=== PATIENT | male | born 1945 | race Hispanic/Latino ===

== ENCOUNTER 2017-01-15 12:27 | Inpatient (IN) | payer MEDICARE, MEDICAID ==
[2017-01-15 12:27] VITALS: BMI 18.6
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
[2017-01-15 13:10] LABS: BASO # 0.1 K/uL (0.0-0.2); BASO % 1.3 % (0.0-2.0); EOS # 0.3 K/uL (0.0-0.7); EOS % 6.1 % (0.0-4.0); HEMATOCRIT 32.3 % (35.0-51.0); LYMPH # 0.8 K/uL (1.0-4.3); LYMPH % 18.5 % (20.0-40.0); MEAN CELL VOLUME 96.4 fl (80.0-94.0); MEAN CORPUSCULAR HEMOGLOBIN 33.1 pg (27.0-31.0); MEAN CORPUSCULAR HGB CONC 34.4 g/dL (33.0-37.0); MEAN PLATELET VOLUME 7.6 fl (7.2-11.7); MONO # 0.3 K/uL (0.0-0.8); MONO % 7.1 % (0.0-10.0); NEUT # 2.9 K/uL (1.8-7.0); NRBC % 0.1 % (0.0-0.0); RED CELL DISTRIBUTION WIDTH 14.6 % (11.5-14.5); WHITE BLOOD COUNT 4.3 K/uL (4.8-10.8)
[2017-01-15 13:21] LABS: ALB/GLOB RATIO 1.2 (1.0-2.1); ALKALINE PHOSPHATASE 59 U/L (38-126); ALT/SGPT 25 U/L (21-72); AST/SGOT 18 U/L (17-59); BILIRUBIN,TOTAL 0.4 mg/dl (0.2-1.3); BLOOD UREA NITROGEN 19 mg/dl (9-20); CALCIUM 8.6 mg/dL (8.4-10.2); CARBON DIOXIDE 24 mmol/L (22-30); CHLORIDE 103 mmol/L (98-107); CHOLESTEROL 91 mg/dL (0-199); GFR AFRICAN-AMERICAN > 60; GLUCOSE,RANDOM 124 mg/dL (75-110); POTASSIUM 3.9 MMOL/L (3.6-5.0); SODIUM 134 mmol/l (132-148); TOTAL PROTEIN 6.3 G/DL (6.3-8.2)
[2017-01-15 13:54] LABS: PARTIAL THROMBOPLASTIN TIME 30.4 Seconds (25.6-37.1)
--- NOTE | 2017-01-15 13:54 | CT ---
PROCEDURE: CT HEAD WITHOUT CONTRAST. HISTORY: LUE weakness COMPARISON: comparison made with prior study dated 10/16/2016. TECHNIQUE: Axial computed tomography images were obtained through the head/brain without intravenous contrast. Radiation dose: Total exam DLP = 841.47 mGy-cm. This CT exam was performed using one or more of the following dose reduction techniques: Automated exposure control, adjustment of the mA and/or kV according to patient size, and/or use of iterative reconstruction technique. FINDINGS: HEMORRHAGE: No acute parenchymal, subarachnoid or extra-axial hemorrhage. BRAIN: Moderate to significant diffuse/ confluent chronic white matter ischemic changes seen extending peripherally into the deep and subcortical white matter both cerebral hemispheres. There also appears to be the some extension of these changes into the white matter tracts of both basal nuclei. In addition, there also appear to be a few scattered more discrete chronic appearing bilateral basal nuclei lacunar type infarcts. VENTRICLES: Moderate central volume loss evidenced by disproportionate enlargement of the ventricles compared sulci. CALVARIUM: There are no acute calvarial fractures. PARANASAL SINUSES: Unremarkable as visualized. No significant inflammatory changes. MASTOID AIR CELLS: Unremarkable as visualized. No inflammatory changes. OTHER FINDINGS: None. IMPRESSION: No acute intracranial hemorrhage. Moderate to significant confluent white matter ischemic changes with some extension into the white matter tracts of both basal nuclei. In addition, there also appear to be scattered more discrete bilateral basal nuclei lacunar type infarcts Moderate central volume loss.
--- NOTE | 2017-01-15 14:30 | RAD ---
HISTORY: CVA COMPARISON: Comparison chest 06/17/2016. Comparison also made with CT scan chest 01/18/2015. FINDINGS: LUNGS: Re- demonstrated are chronic appearing scarring changes and fibrosis right lung apex. Underlying cavitary lesion best seen on prior CT scan may be present though difficult to assess and compare without the benefit of a current CT scan of the chest. Right-sided pleural thickening, small left apical blebs and centrilobular emphysematous changes (upper lobe predominance) less well seen compared to high-resolution CT scan. . Bibasilar atelectasis/scarring changes left greater than right. Small left lower lobe pneumatocele also poorly delineated PLEURA: No significant pleural effusion identified, no pneumothorax apparent. CARDIOVASCULAR: And left apical bleb changes as well as centrilobular emphysematous Normal. OSSEOUS STRUCTURES: No significant abnormalities. VISUALIZED UPPER ABDOMEN: Metallic clips at the EG junction may represent sequela of prior fullness and fundoplication. Clinical correlation recommended. . OTHER FINDINGS: None. IMPRESSION: Re- demonstrated are chronic appearing scarring changes and fibrosis right lung apex. Underlying cavitary lesion best seen on prior CT scan may be present though difficult to assess and compare without the benefit of a current CT scan of the chest. Right-sided pleural thickening, small left apical blebs and centrilobular emphysematous changes (upper lobe predominance) less well seen compared to high-resolution CT scan. . Bibasilar atelectasis/scarring changes left greater than right. Small left lower lobe pneumatocele also poorly delineated
--- NOTE | 2017-01-15 15:42 | CARD ---
APPROVED REPORT EKG Measurement Heart [id number] <Conclusion> Normal sinus rhythm Normal ECG
--- NOTE | 2017-01-15 17:27 | CT ---
PROCEDURE: CT Chest without contrast HISTORY: Cavitary lesion COMPARISON: Comparison is made to the previous study dated 01/18/2015 TECHNIQUE: Contiguous axial images were obtained through the chest without intravenous contrast enhancement. Sagittal and coronal reconstructions were performed. Radiation dose (DLP): 630.64 mGy-cm. This CT exam was performed using one or more of the following dose reduction techniques: Automated exposure control, adjustment of the mA and/or kV according to patient size, and/or use of iterative reconstruction technique. FINDINGS: LUNGS: Again seen is a cavitary lesion at the right lung apex measures 4.1 centimeter. There is adjacent spiculated portal consolidation likely represents scar tissue. [id number] emphysematous changes in the lungs are noted. There are small foci of hazy ground-glass opacities adjacent to the left fissure and in the posterior dependent portion of the lungs bilaterally. MEDIASTINUM: The thoracic aorta is ectatic and tortuous. Normal sized heart. There is a small pericardial effusion seen. Main pulmonary artery unremarkable. Possibility of mild pulmonary vascular congestion cannot be excluded. . Mildly enlarged mediastinal lymph nodes are again seen appear more prominent compared to the previous exam. PLEURA: No pleural fluid. No pneumothorax. BONES: Interval appearance of yykb-[id number]-laccmjap compression deformity at T12 vertebral body likely due to osteopenia. Diffuse osteopenia/ osteoporosis seen. UPPER ABDOMEN: There is pneumobilia seen at the left liver lobe. Again seen are scattered calcification in the upper abdomen moderate constipation is again noted. OTHER FINDINGS: None. IMPRESSION: Re- demonstration of 4.1 centimeter cavitary lesion at the right lung apex. Adjacent spiculated opacity at the right upper lobe appears larger compared to the previous exam may represent scar tissue. Other etiology such as neoplasm is less likely. Three months follow-up reassessment is recommended. Lxck-[id number] upper lobe predominant emphysema. Small hazy opacities at the posterior dependent portion of the lungs may represent atelectasis or mild pulmonary congestion. Otherwise no significant interval change since the previous study.
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
[2017-01-16] MEDS ORDERED: Sodium Chloride 3% for Inhalation 4 ML VIAL.NEB IH PRN (00:57)
[2017-01-16] MEDS: Dextrose 5%/0.9% NS 1,000 ML IV SCH ×2 (01:40→16:32)
[2017-01-16 05:51] LABS: BLOOD UREA NITROGEN 14 mg/dl (9-20); CALCIUM 8.4 mg/dL (8.4-10.2); CARBON DIOXIDE 25 mmol/L (22-30); CHLORIDE 104 mmol/L (98-107); CHOLESTEROL 84 mg/dL (0-199); GFR AFRICAN-AMERICAN > 60; GLUCOSE,RANDOM 90 mg/dL (75-110); MAGNESIUM 1.5 MG/DL (1.6-2.3); POTASSIUM 3.8 MMOL/L (3.6-5.0); SODIUM 135 mmol/l (132-148)
[2017-01-16 05:58] LABS: BASO % 1.4 % (0.0-2.0); EOS # 0.2 K/uL (0.0-0.7); EOS % 6.9 % (0.0-4.0); HEMATOCRIT 31.8 % (35.0-51.0); LYMPH % 29.7 % (20.0-40.0); MEAN CELL VOLUME 96.4 fl (80.0-94.0); MEAN CORPUSCULAR HEMOGLOBIN 32.5 pg (27.0-31.0); MEAN CORPUSCULAR HGB CONC 33.8 g/dL (33.0-37.0); MONO # 0.2 K/uL (0.0-0.8); NEUT # 1.9 K/uL (1.8-7.0); NRBC % 0.4 % (0.0-0.0); RED CELL DISTRIBUTION WIDTH 14.4 % (11.5-14.5); WHITE BLOOD COUNT 3.5 K/uL (4.8-10.8)
--- NOTE | 2017-01-16 06:31 | CP.PCM.CON ---
History of Present Illness - History of Present Illness History of Present Illness: CONSULT DISCUSSED LEFT WIST DROP SECONDARY TO ENTRAPMENT RADIAL NERVE PALSY WRIST SPLINT Past Patient History - Infectious Disease Hx of Infectious Diseases: None - Tetanus Immunizations Tetanus Immunization: Unknown - Past Medical History & Family History Past Medical History?: Yes - Past Social History Smoking Status: Former Smoker - CARDIAC Hx Cardiac Disorders: Yes Hx Atrial Fibrillation: Yes Hx Hypertension: Yes - PULMONARY Hx Respiratory Disorders: Yes Hx Chronic Obstructive Pulmonary Disease (COPD): Yes Hx Pneumonia: Yes - NEUROLOGICAL Hx Neurological Disorder: No - HEENT Hx HEENT Problems: Yes Other/Comment: Glasses - RENAL Hx Chronic Kidney Disease: No - ENDOCRINE/METABOLIC Hx Endocrine Disorders: No - HEMATOLOGICAL/ONCOLOGICAL Hx Blood Disorders: No Hx Human Immunodeficiency Virus (HIV): No - INTEGUMENTARY Hx Dermatological Problems: No - MUSCULOSKELETAL/RHEUMATOLOGICAL Hx Musculoskeletal Disorders: Yes Hx Back Pain: Yes Hx Falls: Yes Hx Fractures: Yes Hx Rheumatoid Arthritis: Yes - GASTROINTESTINAL Hx Gastrointestinal Disorders: Yes Hx Ulcer: Yes - GENITOURINARY/GYNECOLOGICAL Hx Genitourinary Disorders: No - PSYCHIATRIC Hx Psychophysiologic Disorder: No Hx Substance Use: No - SURGICAL HISTORY Hx Surgeries: Yes Hx Cholecystectomy: Yes - ANESTHESIA Hx Anesthesia: Yes Hx Anesthesia Reactions: No Hx Malignant Hyperthermia: No Meds Allergies/Adverse Reactions: Allergies Allergy/AdvReac Type Severity Reaction Status Date / Time No Known Allergies Allergy Verified 01/15/17 12:31 - Medications Medications: Current Medications Enoxaparin Sodium (Lovenox) 40 mg SC DAILY [facility] PRN Reason: Protocol Dextrose/Sodium Chloride (Dextrose 5%/0.9% Ns 1000 Ml) 1,000 mls @ 60 mls/hr IV .[id number] [facility] Stop: 01/17/17 00:56 Last Admin: 01/16/17 01:40 Dose: 60 mls/hr Morphine Sulfate (Morphine) 2 mg IVP Q8 PRN PRN Reason: Pain, severe (8-10) Last Admin: 01/15/17 23:54 Dose: 2 mg Fluticasone/Salmeterol (Advair Diskus 250/50) 1 puff IH BID [facility] Results - Vital Signs Recent Vital Signs: Last Vital Signs Temp 98.7 F 01/16/17 06:21 Pulse 66 01/16/17 06:21 Resp 19 01/16/17 06:21 BP 126/56 L 01/16/17 06:21 Pulse Ox 95 01/16/17 06:21 - Labs Result Diagrams: 01/16/17 03:07 01/15/17 13:03 Labs: Laboratory Results - last 24 hr 01/15/17 01/15/17 01/15/17 12:43 13:03 13:03 WBC 4.3 L RBC 3.35 L Hgb 11.1 L Hct 32.3 L MCV 96.4 H MCH 33.1 H MCHC 34.4 RDW 14.6 H Plt Count 126 L D MPV 7.6 Neut % (Auto) 67.0 Lymph % (Auto) 18.5 L [place] % (Auto) 7.1 Eos % (Auto) 6.1 H Baso % (Auto) 1.3 Neut # 2.9 Lymph # 0.8 L [place] # 0.3 Eos # 0.3 Baso # 0.1 Retic Count PT INR APTT Sodium 134 Potassium 3.9 Chloride 103 Carbon Dioxide 24 Anion Gap 11 BUN 19 Creatinine 1.0 Est GFR ( Amer) > 60 Est GFR (Non-Af Amer) > 60 Random Glucose 124 H Hemoglobin A1c Calcium 8.6 Total Bilirubin 0.4 AST 18 ALT 25 Alkaline Phosphatase 59 Troponin I < 0.0120 Total Protein 6.3 Albumin 3.5 D Globulin 2.9 Albumin/Globulin Ratio 1.2 Triglycerides 60 Cholesterol 91 LDL Cholesterol Direct 33 HDL Cholesterol 41 Blood Type A POSITIVE Antibody Screen Negative BBK History Checked Patient has bt 01/15/17 01/15/17 01/16/17 13:03 13:39 03:07 WBC 3.5 L RBC 3.30 L Hgb 10.7 L Hct 31.8 L MCV 96.4 H MCH 32.5 H MCHC 33.8 RDW 14.4 Plt Count 101 L D MPV 7.0 L Neut % (Auto) 55.0 Lymph % (Auto) 29.7 [place] % (Auto) 7.0 Eos % (Auto) 6.9 H Baso % (Auto) 1.4 Neut # 1.9 Lymph # 1.0 [place] # 0.2 Eos # 0.2 Baso # 0.0 Retic Count PT 10.4 INR 1.0 APTT 30.4 Sodium Potassium Chloride Carbon Dioxide Anion Gap BUN Creatinine Est GFR ( Amer) Est GFR (Non-Af Amer) Random Glucose Hemoglobin A1c 5.9 Calcium Total Bilirubin AST ALT Alkaline Phosphatase Troponin I Total Protein Albumin Globulin Albumin/Globulin Ratio Triglycerides Cholesterol LDL Cholesterol Direct HDL Cholesterol Blood Type Antibody Screen BBK History Checked 01/16/17 03:07 WBC RBC Hgb Hct MCV MCH MCHC RDW Plt Count MPV Neut % (Auto) Lymph % (Auto) [place] % (Auto) Eos % (Auto) Baso % (Auto) Neut # Lymph # [place] # Eos # Baso # Retic Count 0.5 D PT INR APTT Sodium Potassium Chloride Carbon Dioxide Anion Gap BUN Creatinine Est GFR ( Amer) Est GFR (Non-Af Amer) Random Glucose Hemoglobin A1c Calcium Total Bilirubin AST ALT Alkaline Phosphatase Troponin I Total Protein Albumin Globulin Albumin/Globulin Ratio Triglycerides Cholesterol LDL Cholesterol Direct HDL Cholesterol Blood Type Antibody Screen BBK History Checked
[2017-01-16 06:33] LABS: IRON 48 ug/dL (49-181)
[2017-01-16 09:04] LABS: THYROID STIMULATING HORMONE 0.81 mIU/ML (0.46-4.68)
[2017-01-16] MEDS: Fluticasone-Salmeterol 250-50mcg Diskus IH SCH ×2 (09:20→16:15)
[2017-01-16] MEDS: Enoxaparin 40 mg Syringe SC SCH (09:20)
--- NOTE | 2017-01-16 10:51 | US ---
PROCEDURE: Duplex ultrasound of the carotid and vertebral arteries. HISTORY: CVA. COMPARISON: 04/07/2013 TECHNIQUE: Grayscale and duplex Doppler evaluation of the cervical carotid and vertebral arteries were performed. The common carotid, carotid bifurcations and cervical ICA and proximal ECA were evaluated. The vertebral arteries were evaluated for gross patency and direction. FINDINGS: RIGHT CAROTID ARTERIES: Common Carotid Artery: Normal. Maximal flow velocity of a cm/s. Carotid Bifurcation: Normal. Internal Carotid Artery:Heterogeneous plaque formation. Maximal flow velocity of 89.1 cm/s. External Carotid Artery (proximal branches): Unremarkable Maximal flow velocity of 69.0 cm/s. ICA/CCA Ratio: 1.6 LEFT CAROTID ARTERIES: Common Carotid Artery: Normal. Maximal flow velocity of 74.9 cm/s. Carotid Bifurcation: Normal. Internal Carotid Artery:Heterogeneous plaque formation. Maximal flow velocity of 83.2 cm/s. External Carotid Artery (proximal branches): Focal calcified plaque proximal left external carotid artery. Maximal flow velocity of 68.8 cm/s. ICA/CCA Ratio: 1.1 VERTEBRAL ARTERIES: Right Vertebral Artery: Patent. Antegrade flow. Left Vertebral Artery: Patent. Antegrade flow. OTHER FINDINGS: None. IMPRESSION: Right ICA degree of stenosis: Less than 50% Left ICA degree of stenosis: Less than 50% No significant interval change compared to the prior examination(s). Reference Internal Carotid Artery (ICA) Peak Systolic Velocity (PSV) for above: 1. Less than 50% stenosis less than 125 cm/s peak systolic velocity 2. 50-69% stenosis 125-230cm/s peak systolic velocity 3. Greater than 70% but less than near occlusion greater than 230 cm/s peak systolic velocity
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
--- NOTE | 2017-01-16 11:05 | CP.PCM.CON ---
History of Present Illness - History of Present Illness History of Present Illness: Infectious Disease Consult Note- asked to see this patient to evaluate some lung findings on his chest Ct. HPI- History obtained mostly from the medical chart as patient is not a very good historian. Pt. 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 Pt. states he fell asleep on his desk and woke up with these symptoms. Pt. also state he has metal plate in his hp and has had several foot fractures in past. I'm asked to evaluate the patient bc he has some chest ct findings of cavitary lesion and apparently pt. had been on rifampin and hence he is being ruled out for TB. Pt. denies any fever but does c/o chills, denies any night sweats, denies any weight loss, denies any hemoptysis. Review of Systems - Review of Systems Review of Systems: ROS- denies any fever, + chills, denies any HESTER, denies any cough, denies any sob, denies any chest pain, denies any abd. pain, denies any n/v, denies any diarrhea , denies any dysurea c/o weakness denies any sick contacts denies any recent travel Past Patient History - Infectious Disease Hx of Infectious Diseases: None - Tetanus Immunizations Tetanus Immunization: Unknown - Past Medical History & Family History Past Medical History?: Yes - Past Social History Smoking Status: Former Smoker - CARDIAC Hx Cardiac Disorders: Yes Hx Atrial Fibrillation: Yes Hx Hypertension: Yes - PULMONARY Hx Respiratory Disorders: Yes Hx Chronic Obstructive Pulmonary Disease (COPD): Yes Hx Pneumonia: Yes - NEUROLOGICAL Hx Neurological Disorder: No - HEENT Hx HEENT Problems: Yes Other/Comment: Glasses - RENAL Hx Chronic Kidney Disease: No - ENDOCRINE/METABOLIC Hx Endocrine Disorders: No - HEMATOLOGICAL/ONCOLOGICAL Hx Blood Disorders: No - INTEGUMENTARY Hx Dermatological Problems: No - MUSCULOSKELETAL/RHEUMATOLOGICAL Hx Musculoskeletal Disorders: Yes Hx Back Pain: Yes Hx Falls: Yes Hx Fractures: Yes Hx Rheumatoid Arthritis: Yes - GASTROINTESTINAL Hx Gastrointestinal Disorders: Yes Hx Ulcer: Yes - GENITOURINARY/GYNECOLOGICAL Hx Genitourinary Disorders: No - PSYCHIATRIC Hx Psychophysiologic Disorder: No Hx Substance Use: No - SURGICAL HISTORY Hx Surgeries: Yes Hx Cholecystectomy: Yes - ANESTHESIA Hx Anesthesia: Yes Hx Anesthesia Reactions: No Hx Malignant Hyperthermia: No Meds Allergies/Adverse Reactions: Allergies Allergy/AdvReac Type Severity Reaction Status Date / Time No Known Allergies Allergy Verified 01/15/17 12:31 - Medications Medications: Current Medications Enoxaparin Sodium (Lovenox) 40 mg SC DAILY [facility] PRN Reason: Protocol Last Admin: 01/16/17 09:20 Dose: 40 mg Dextrose/Sodium Chloride (Dextrose 5%/0.9% Ns 1000 Ml) 1,000 mls @ 60 mls/hr IV .[id number] [facility] Stop: 01/17/17 00:56 Last Admin: 01/16/17 01:40 Dose: 60 mls/hr Morphine Sulfate (Morphine) 2 mg IVP Q8 PRN PRN Reason: Pain, severe (8-10) Last Admin: 01/16/17 09:22 Dose: 2 mg Fluticasone/Salmeterol (Advair Diskus 250/50) 1 puff IH BID [facility] Last Admin: 01/16/17 09:20 Dose: 1 puff Physical Exam - Constitutional Appears: No Acute Distress - Head Exam Head Exam: ATRAUMATIC - Eye Exam Eye Exam: EOMI - ENT Exam ENT Exam: Normal Oropharynx - Neck Exam Neck exam: Positive for: Full Rom - Respiratory Exam Respiratory Exam: NORMAL BREATHING PATTERN Additional comments: good aeration b/l no wheezing - Cardiovascular Exam Cardiovascular Exam: RRR, +S1, +S2 - GI/Abdominal Exam GI & Abdominal Exam: Normal Bowel Sounds, Soft Additional comments: NT, ND - Extremities Exam Additional comments: no edema b/l LE - Neurological Exam Additional comments: awake , oriented x 2 Results - Vital Signs Recent Vital Signs: Last Vital Signs Temp 98.5 F 01/16/17 08:24 Pulse 68 01/16/17 08:24 Resp 20 01/16/17 08:24 BP 124/68 01/16/17 08:24 Pulse Ox 94 L 01/16/17 08:24 - Labs Result Diagrams: 01/16/17 03:07 01/16/17 04:30 Labs: Laboratory Results - last 24 hr 01/15/17 01/15/17 01/15/17 12:33 12:43 13:03 WBC 4.3 L RBC 3.35 L Hgb 11.1 L Hct 32.3 L MCV 96.4 H MCH 33.1 H MCHC 34.4 RDW 14.6 H Plt Count 126 L D MPV 7.6 Neut % (Auto) 67.0 Lymph % (Auto) 18.5 L [place] % (Auto) 7.1 Eos % (Auto) 6.1 H Baso % (Auto) 1.3 Neut # 2.9 Lymph # 0.8 L [place] # 0.3 Eos # 0.3 Baso # 0.1 ESR Retic Count PT INR APTT Fibrinogen Sodium Potassium Chloride Carbon Dioxide Anion Gap BUN Creatinine Est GFR ( Amer) Est GFR (Non-Af Amer) POC Glucose (mg/dL) 140 H Random Glucose Hemoglobin A1c Calcium Magnesium Iron TIBC % Saturation Total Bilirubin AST ALT Alkaline Phosphatase Lactate Dehydrogenase Total Creatine Kinase Troponin I Total Protein Albumin Globulin Albumin/Globulin Ratio Triglycerides Cholesterol LDL Cholesterol Direct HDL Cholesterol Free T4 Total T3 TSH 3rd Generation Blood Type A POSITIVE Antibody Screen Negative BBK History Checked Patient has bt 01/15/17 01/15/17 01/15/17 13:03 13:03 13:39 WBC RBC Hgb Hct MCV MCH MCHC RDW Plt Count MPV Neut % (Auto) Lymph % (Auto) [place] % (Auto) Eos % (Auto) Baso % (Auto) Neut # Lymph # [place] # Eos # Baso # ESR Retic Count PT 10.4 INR 1.0 APTT 30.4 Fibrinogen Sodium 134 Potassium 3.9 Chloride 103 Carbon Dioxide 24 Anion Gap 11 BUN 19 Creatinine 1.0 Est GFR ( Amer) > 60 Est GFR (Non-Af Amer) > 60 POC Glucose (mg/dL) Random Glucose 124 H Hemoglobin A1c 5.9 Calcium 8.6 Magnesium Iron TIBC % Saturation Total Bilirubin 0.4 AST 18 ALT 25 Alkaline Phosphatase 59 Lactate Dehydrogenase Total Creatine Kinase Troponin I < 0.0120 Total Protein 6.3 Albumin 3.5 D Globulin 2.9 Albumin/Globulin Ratio 1.2 Triglycerides 60 Cholesterol 91 LDL Cholesterol Direct 33 HDL Cholesterol 41 Free T4 Total T3 TSH 3rd Generation Blood Type Antibody Screen BBK History Checked 01/16/17 01/16/17 01/16/17 03:07 03:07 04:30 WBC 3.5 L RBC 3.30 L Hgb 10.7 L Hct 31.8 L MCV 96.4 H MCH 32.5 H MCHC 33.8 RDW 14.4 Plt Count 101 L D MPV 7.0 L Neut % (Auto) 55.0 Lymph % (Auto) 29.7 [place] % (Auto) 7.0 Eos % (Auto) 6.9 H Baso % (Auto) 1.4 Neut # 1.9 Lymph # 1.0 [place] # 0.2 Eos # 0.2 Baso # 0.0 ESR 17 Retic Count 0.5 D PT INR APTT Fibrinogen Sodium 135 Potassium 3.8 Chloride 104 Carbon Dioxide 25 Anion Gap 10 BUN 14 Creatinine 0.9 Est GFR ( Amer) > 60 Est GFR (Non-Af Amer) > 60 POC Glucose (mg/dL) Random Glucose 90 Hemoglobin A1c Calcium 8.4 Magnesium 1.5 L Iron TIBC % Saturation Total Bilirubin AST ALT Alkaline Phosphatase Lactate Dehydrogenase 309 L Total Creatine Kinase 93 Troponin I Total Protein Albumin Globulin Albumin/Globulin Ratio Triglycerides 55 Cholesterol 84 LDL Cholesterol Direct 35 HDL Cholesterol 36 Free T4 Total T3 0.682 L TSH 3rd Generation 0.81 Blood Type Antibody Screen BBK History Checked 01/16/17 01/16/17 01/16/17 04:30 04:30 04:30 WBC RBC Hgb Hct MCV MCH MCHC RDW Plt Count MPV Neut % (Auto) Lymph % (Auto) [place] % (Auto) Eos % (Auto) Baso % (Auto) Neut # Lymph # [place] # Eos # Baso # ESR Retic Count PT INR APTT Fibrinogen 302 Sodium Potassium Chloride Carbon Dioxide Anion Gap BUN Creatinine Est GFR ( Amer) Est GFR (Non-Af Amer) POC Glucose (mg/dL) Random Glucose Hemoglobin A1c Calcium Magnesium Iron 48 L TIBC 224 L % Saturation 21 Total Bilirubin AST ALT Alkaline Phosphatase Lactate Dehydrogenase Total Creatine Kinase Troponin I Total Protein Albumin Globulin Albumin/Globulin Ratio Triglycerides Cholesterol LDL Cholesterol Direct HDL Cholesterol Free T4 1.38 Total T3 TSH 3rd Generation Blood Type Antibody Screen BBK History Checked Laboratory Results - last 72 hr 01/15/17 01/15/17 01/15/17 12:33 12:43 13:03 WBC 4.3 L RBC 3.35 L Hgb 11.1 L Hct 32.3 L MCV 96.4 H MCH 33.1 H MCHC 34.4 RDW 14.6 H Plt Count 126 L D MPV 7.6 Neut % (Auto) 67.0 Lymph % (Auto) 18.5 L [place] % (Auto) 7.1 Eos % (Auto) 6.1 H Baso % (Auto) 1.3 Neut # 2.9 Lymph # 0.8 L [place] # 0.3 Eos # 0.3 Baso # 0.1 ESR Retic Count PT INR APTT Fibrinogen Sodium Potassium Chloride Carbon Dioxide Anion Gap BUN Creatinine Est GFR ( Amer) Est GFR (Non-Af Amer) POC Glucose (mg/dL) 140 H Random Glucose Hemoglobin A1c Calcium Magnesium Iron TIBC % Saturation Total Bilirubin AST ALT Alkaline Phosphatase Lactate Dehydrogenase Total Creatine Kinase Troponin I Total Protein Albumin Globulin Albumin/Globulin Ratio Triglycerides Cholesterol LDL Cholesterol Direct HDL Cholesterol Folate Free T4 Total T3 TSH 3rd Generation Blood Type A POSITIVE Antibody Screen Negative BBK History Checked Patient has bt 01/15/17 01/15/17 01/15/17 13:03 13:03 13:39 WBC RBC Hgb Hct MCV MCH MCHC RDW Plt Count MPV Neut % (Auto) Lymph % (Auto) [place] % (Auto) Eos % (Auto) Baso % (Auto) Neut # Lymph # [place] # Eos # Baso # ESR Retic Count PT 10.4 INR 1.0 APTT 30.4 Fibrinogen Sodium 134 Potassium 3.9 Chloride 103 Carbon Dioxide 24 Anion Gap 11 BUN 19 Creatinine 1.0 Est GFR ( Amer) > 60 Est GFR (Non-Af Amer) > 60 POC Glucose (mg/dL) Random Glucose 124 H Hemoglobin A1c 5.9 Calcium 8.6 Magnesium Iron TIBC % Saturation Total Bilirubin 0.4 AST 18 ALT 25 Alkaline Phosphatase 59 Lactate Dehydrogenase Total Creatine Kinase Troponin I < 0.0120 Total Protein 6.3 Albumin 3.5 D Globulin 2.9 Albumin/Globulin Ratio 1.2 Triglycerides 60 Cholesterol 91 LDL Cholesterol Direct 33 HDL Cholesterol 41 Folate Free T4 Total T3 TSH 3rd Generation Blood Type Antibody Screen BBK History Checked 01/16/17 01/16/17 01/16/17 03:07 03:07 04:30 WBC 3.5 L RBC 3.30 L Hgb 10.7 L Hct 31.8 L MCV 96.4 H MCH 32.5 H MCHC 33.8 RDW 14.4 Plt Count 101 L D MPV 7.0 L Neut % (Auto) 55.0 Lymph % (Auto) 29.7 [place] % (Auto) 7.0 Eos % (Auto) 6.9 H Baso % (Auto) 1.4 Neut # 1.9 Lymph # 1.0 [place] # 0.2 Eos # 0.2 Baso # 0.0 ESR 17 Retic Count 0.5 D PT INR APTT Fibrinogen Sodium 135 Potassium 3.8 Chloride 104 Carbon Dioxide 25 Anion Gap 10 BUN 14 Creatinine 0.9 Est GFR ( Amer) > 60 Est GFR (Non-Af Amer) > 60 POC Glucose (mg/dL) Random Glucose 90 Hemoglobin A1c Calcium 8.4 Magnesium 1.5 L Iron TIBC % Saturation Total Bilirubin AST ALT Alkaline Phosphatase Lactate Dehydrogenase 309 L Total Creatine Kinase 93 Troponin I Total Protein Albumin Globulin Albumin/Globulin Ratio Triglycerides 55 Cholesterol 84 LDL Cholesterol Direct 35 HDL Cholesterol 36 Folate > 20.0 Free T4 Total T3 0.682 L TSH 3rd Generation 0.81 Blood Type Antibody Screen BBK History Checked 01/16/17 01/16/17 01/16/17 04:30 04:30 04:30 WBC RBC Hgb Hct MCV MCH MCHC RDW Plt Count MPV Neut % (Auto) Lymph % (Auto) [place] % (Auto) Eos % (Auto) Baso % (Auto) Neut # Lymph # [place] # Eos # Baso # ESR Retic Count PT INR APTT Fibrinogen 302 Sodium Potassium Chloride Carbon Dioxide Anion Gap BUN Creatinine Est GFR ( Amer) Est GFR (Non-Af Amer) POC Glucose (mg/dL) Random Glucose Hemoglobin A1c Calcium Magnesium Iron 48 L TIBC 224 L % Saturation 21 Total Bilirubin AST ALT Alkaline Phosphatase Lactate Dehydrogenase Total Creatine Kinase Troponin I Total Protein Albumin Globulin Albumin/Globulin Ratio Triglycerides Cholesterol LDL Cholesterol Direct HDL Cholesterol Folate Free T4 1.38 Total T3 TSH 3rd Generation Blood Type Antibody Screen BBK History Checked Accession No. : [id number] Patient Name / ID : CHRISTA RUFF / [id number] Exam Date : 01/15/2017 16:43:47 ( Approved ) Study Comment : Sex / Age : M / [id number] Creator : Martín Huerta Dictator : Martín Huerta Dry Clipper Tender : Packaging Sales Representative : Martín Huerta Approver2 : Report Date : 01/15/2017 17:26:07 My Comment : PROCEDURE: CT Chest without contrast HISTORY: Cavitary lesion COMPARISON: Comparison is made to the previous study dated 01/18/2015 TECHNIQUE: Contiguous axial images were obtained through the chest without intravenous contrast enhancement. Sagittal and coronal reconstructions were performed. Radiation dose (DLP): 630.64 mGy-cm. This CT exam was performed using one or more of the following dose reduction techniques: Automated exposure control, adjustment of the mA and/or kV according to patient size, and/or use of iterative reconstruction technique. FINDINGS: LUNGS: Again seen is a cavitary lesion at the right lung apex measures 4.1 centimeter. There is adjacent spiculated portal consolidation likely represents scar tissue. [id number] emphysematous changes in the lungs are noted. There are small foci of hazy ground-glass opacities adjacent to the left fissure and in the posterior dependent portion of the lungs bilaterally. MEDIASTINUM: The thoracic aorta is ectatic and tortuous. Normal sized heart. There is a small pericardial effusion seen. Main pulmonary artery unremarkable. Possibility of mild pulmonary vascular congestion cannot be excluded. . Mildly enlarged mediastinal lymph nodes are again seen appear more prominent compared to the previous exam. PLEURA: No pleural fluid. No pneumothorax. BONES: Interval appearance of wznk-lw-[id number] compression deformity at T12 vertebral body likely due to osteopenia. Diffuse osteopenia/ osteoporosis seen. UPPER ABDOMEN: There is pneumobilia seen at the left liver lobe. Again seen are scattered calcification in the upper abdomen moderate constipation is again noted. OTHER FINDINGS: None. IMPRESSION: Re- demonstration of 4.1 centimeter cavitary lesion at the right lung apex. Adjacent spiculated opacity at the right upper lobe appears larger compared to the previous exam may represent scar tissue. Other etiology such as neoplasm is less likely. Three months follow-up reassessment is recommended. Jame-mc-lgygvaei upper lobe predominant emphysema. Small hazy opacities at the posterior dependent portion of the lungs may represent atelectasis or mild pulmonary congestion. Otherwise no significant interval change since the previous study. Assessment & Plan (1) Cavitary lesion of lung Status: Acute (2) Pancytopenia Status: Acute (3) TIA (transient ischemic attack) Status: Acute - Assessment and Plan (Free Text) Assessment: A/P- 71 year old male with pmh of HTN, A.fib, COPD, 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 pt. does not have any cough or fever and the lung finding of apical cavitary lesion is not new . ct scan unchanged from previous Ct scans. afebrile no pulmonary symptoms at this time. plan- pt. was already treated for atypical pulm TB as per med records from 2014 and all his sputum AFB from 2015 were even negative. He is not coughing and chect Ct unchanged and hence I do not think he needs to be ruled out for AFB. would advise pulmonary consultation as well. would f/u with neuro rec regarding his TIA and wekaness symptoms. If he develops any feer or chills would then panculture. No need for any antibiotics at this time. Thank you for allowing me to take part in the care of this patient. I
[2017-01-16 13:06] LABS: FOLATE > 20.0 ng/mL
--- NOTE | 2017-01-16 15:33 | CARD ---
APPROVED REPORT EXAM: Two-dimensional and M-mode echocardiogram with Doppler and color Doppler. Other Information Quality : Technically LimitedPoorRhythm : NSR Technically limited study due to poor echo window INDICATION CVA/TIA 2D DIMENSIONS IVSd0.88 (0.7-1.1cm)LVDd4.39 (3.9-5.9cm) PWd0.82 (0.7-1.1cm)IVSs1.20 (0.8-1.2cm) LVDs3.54 (2.5-4.0cm)FS (%) 19.5 % PWs1.21 (0.8-1.2cm) Mitral Valve MV DECEL [id number] ratio0.0 MVA (PHT)2.63cm2 TDI E/Lateral E'0.0E/Medial E'0.0 LEFT VENTRICLE The left ventricle is normal size. There is normal left ventricular wall thickness. The systolic function is mildly to moderately impaired. The Ejection Fraction is 35-40%. There is global hypokinesis of the left ventricle. The left ventricular diastolic function is normal. No left ventricle thrombus noted on this study. There is no mass noted in the left ventricle. RIGHT VENTRICLE The right ventricle is normal size. There is normal right ventricular wall thickness. The right ventricular systolic function is normal. ATRIA The left atrium size is normal. The right atrium size is normal. The interatrial septum is intact with no evidence for an atrial septal defect. AORTIC VALVE The aortic valve is normal in structure and function. No aortic regurgitation is present. There is no aortic valvular stenosis. There is no aortic valvular vegetation. MITRAL VALVE The mitral valve is normal in structure and function. There is no evidence of mitral valve prolapse. There is no mitral valve stenosis. There is no mitral valve regurgitation noted. TRICUSPID VALVE The tricuspid valve is normal in structure and function. There is no tricuspid valve regurgitation noted. There is no tricuspid valve prolapse or vegetation. There is no tricuspid valve stenosis. PULMONIC VALVE The pulmonary valve is normal in structure and function. There is no pulmonic valvular regurgitation. There is no pulmonic valvular stenosis. GREAT VESSELS The aortic root is normal in size. The IVC is normal in size and collapses >50% with inspiration. PERICARDIAL EFFUSION The pericardium appears normal. There is no pleural effusion. <Conclusion> The left ventricle is normal size. The systolic function is mildly to moderately impaired. The Ejection Fraction is 35-40%. There is global hypokinesis of the left ventricle.
[2017-01-16] MEDS: Magnesium Oxide 400 mg Tab UD PO SCH (16:15)
[2017-01-16] MEDS ORDERED: Magnesium Sulfate 2 gm/50 ml 2 GM/50 ML BAG IVPB ONE (17:00)
--- NOTE | 2017-01-16 18:22 | MRI ---
PROCEDURE: MRI BRAIN WITHOUT CONTRAST HISTORY: cva COMPARISON: Comparison is made to the previous CT dated 01/15/2017 TECHNIQUE: Multiplanar, multisequence MR images of the brain were obtained without intravenous contrast enhancement. FINDINGS: HEMORRHAGE: None DWI: There are small foci of diffusion restriction noted at the right posterior frontal and parietal lobe. BRAIN PARENCHYMA: No mass effect or edema. Moderate atrophy and moderate chronic microvascular white matter ischemic disease are again noted. VENTRICLES: The ventricles are dilated likely due to central atrophy. CRANIUM: Unremarkable. ORBITS: Grossly unremarkable. PARANASAL SINUSES/MASTOIDS: Mild mucosal thickening. VASCULAR SYSTEM: Skull base flow voids intact. OTHER FINDINGS: None. IMPRESSION: Small foci of diffusion restriction seen at the right posterior frontal and parietal lobe suggestive of acute lacunar infarctions. The possibility of embolic infarction should be considered. Moderate atrophy and moderate chronic microvascular ischemic disease.
--- NOTE | 2017-01-16 21:59 | CP.PCM.PN ---
Subjective - Date & Time of Evaluation Date of Evaluation: 01/16/17 Time of Evaluation: 16:00 Objective - Vital Signs/Intake and Output Vital Signs (last 24 hours): Temp Pulse Resp BP Pulse Ox 98.0 F 64 18 161/81 H 95 01/16/17 19:59 01/16/17 20:48 01/16/17 19:59 01/16/17 19:59 01/16/17 19:59 Intake and Output: 01/16/17 01/17/17 18:59 06:59 Intake Total 1010 Output Total 900 Balance 110 - Medications Medications: Current Medications Aspirin (Aspirin Chewable) 81 mg PO DAILY [facility] Last Admin: 01/16/17 16:15 Dose: 81 mg Atorvastatin Calcium (Lipitor) 20 mg PO DAILY [facility] Last Admin: 01/16/17 18:13 Dose: 20 mg Enoxaparin Sodium (Lovenox) 40 mg SC DAILY [facility] PRN Reason: Protocol Last Admin: 01/16/17 09:20 Dose: 40 mg Dextrose/Sodium Chloride (Dextrose 5%/0.9% Ns 1000 Ml) 1,000 mls @ 60 mls/hr IV .[id number] [facility] Stop: 01/17/17 00:56 Last Admin: 01/16/17 16:32 Dose: 60 mls/hr Magnesium Oxide (Mag-Ox) 400 mg PO BID [facility] Last Admin: 01/16/17 16:15 Dose: 400 mg Morphine Sulfate (Morphine) 2 mg IVP Q8 PRN PRN Reason: Pain, severe (8-10) Last Admin: 01/16/17 09:22 Dose: 2 mg Fluticasone/Salmeterol (Advair Diskus 250/50) 1 puff IH BID [facility] Last Admin: 01/16/17 16:15 Dose: 1 puff - Labs Labs: 01/16/17 03:07 01/16/17 04:30 PT 10.4 Seconds (9.8-13.1) 01/15/17 13:03 INR 1.0 (0.9-1.2) 01/15/17 13:03 APTT 30.4 Seconds (25.6-37.1) 01/15/17 13:03 Assessment and Plan (1) TIA (transient ischemic attack) Status: Acute (2) Pancytopenia Status: Acute (3) Cavitary lesion of lung Status: Acute (4) Tobacco abuse Status: Acute (5) COPD (chronic obstructive pulmonary disease) Status: Chronic (6) Chronic pain disorder Status: Chronic
--- NOTE | 2017-01-16 23:26 | CP.PCM.HP ---
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 Afib in past [as per old records ] not on anticoagulation, on rifampin was rx by Chest clinic 2 yrs ago, does not know why he still on meds presenting to the ED via EMS for an evaluation of weakness in his left arm. The patient states he woke up at 4 am, had coffee and cereal , and then sat down at his computer. The patient then states he woke up again at 7 am and felt weakness on his left side of weakness. denies speech problems, in using Present on Admission - Present on Admission Any Indicators Present on Admission: No Review of Systems - Hematologic/Lymphatic Additional comments: Constitutional: Fatigue. absent: Fever, Frequent Falls, Weight Loss, Weakness - EENT Eyes: absent: Blurred Vision, Other Visual Disturbances Nose/Mouth/Throat: absent: Nasal Discharge, Dysphagia, Hoarsness - Cardiovascular Cardiovascular: no Dyspnea on Exertion. absent: Chest Pain, Edema, Palpitations, Pedal Edema, Syncope - Respiratory Respiratory: no Cough. absent: Wheezing, Chest Congestion, Excessive Mucous Production - Gastrointestinal Gastrointestinal: denies Belching, Bloating, Dyspepsia. absent: Change in Stool Character, Constipation, Melena, Nausea, Vomiting - Genitourinary Genitourinary: denies Voiding Freq/Small Amts. absent: Change in Urinary Stream - Musculoskeletal Musculoskeletal: Arthralgias, Back Pain - Neurological Neurological: absent: Behavioral Changes, Convulsions. has have Paresthesias . denies Vertigo - Psychiatric Psychiatric: absent: Confusion, has Irritability Past Patient History - Infectious Disease Hx of Infectious Diseases: None - Tetanus Immunizations Tetanus Immunization: Unknown - Past Medical History & Family History Past Medical History?: Yes - Past Social History Smoking Status: Former Smoker - CARDIAC Hx Cardiac Disorders: Yes Hx Atrial Fibrillation: Yes Hx Hypertension: Yes - PULMONARY Hx Respiratory Disorders: Yes Hx Chronic Obstructive Pulmonary Disease (COPD): Yes Hx Pneumonia: Yes - NEUROLOGICAL Hx Neurological Disorder: No - HEENT Hx HEENT Problems: Yes Other/Comment: Glasses - RENAL Hx Chronic Kidney Disease: No - ENDOCRINE/METABOLIC Hx Endocrine Disorders: No - HEMATOLOGICAL/ONCOLOGICAL Hx Blood Disorders: No - INTEGUMENTARY Hx Dermatological Problems: No - MUSCULOSKELETAL/RHEUMATOLOGICAL Hx Musculoskeletal Disorders: Yes Hx Back Pain: Yes Hx Falls: Yes Hx Fractures: Yes Hx Rheumatoid Arthritis: Yes - GASTROINTESTINAL Hx Gastrointestinal Disorders: Yes Hx Ulcer: Yes - GENITOURINARY/GYNECOLOGICAL Hx Genitourinary Disorders: No - PSYCHIATRIC Hx Psychophysiologic Disorder: No Hx Substance Use: No - SURGICAL HISTORY Hx Surgeries: Yes Hx Cholecystectomy: Yes - ANESTHESIA Hx Anesthesia: Yes Hx Anesthesia Reactions: No Hx Malignant Hyperthermia: No Meds Allergies/Adverse Reactions: Allergies Allergy/AdvReac Type Severity Reaction Status Date / Time No Known Allergies Allergy Verified 01/15/17 12:31 Physical Exam - Additional Findings Additional findings: Constitutional Appears: No Acute Distress , NC\AT, Fragile - Head Exam Head Exam: ATRAUMATIC, NORMAL INSPECTION - Eye Exam Eye Exam: EOMI, Normal appearance, PERRL - ENT Exam ENT Exam: Normal Exam - Neck Exam Neck exam: Positive for: Normal Inspection. Negative for: Thyromegaly - Respiratory Exam Respiratory Exam: Clear to Auscultation Bilateral, NORMAL BREATHING PATTERN - Cardiovascular Exam Cardiovascular Exam: REGULAR RHYTHM, +S1, +S2, Systolic Murmur - GI/Abdominal Exam GI & Abdominal Exam: Normal Bowel Sounds, Soft. absent: Distended, Organomegaly , Tenderness Back exam: NORMAL INSPECTION, lower back paraspinal tenderness - Neurological Exam Neurological exam: Alert, CN II-XII Intact, Oriented x3 reflexes-2 + b\L UE\LE, [place]-equivocal left hand- weakness ,decreased jackhammer operator , power- 4\5 - Skin Skin Exam: Intact, pallor, no wounds noted ext- unequal LE rt < left leg Results - Vital Signs Recent Vital Signs: Last Vital Signs Temp 98.0 F 01/16/17 19:59 Pulse 64 01/16/17 20:48 Resp 18 01/16/17 19:59 BP 161/81 H 01/16/17 19:59 Pulse Ox 95 01/16/17 19:59 - Labs Result Diagrams: 01/18/17 05:20 01/18/17 05:20 Labs: Laboratory Results - last 24 hr 01/15/17 01/16/17 01/16/17 12:33 03:07 03:07 WBC 3.5 L RBC 3.30 L Hgb 10.7 L Hct 31.8 L MCV 96.4 H MCH 32.5 H MCHC 33.8 RDW 14.4 Plt Count 101 L D MPV 7.0 L Neut % (Auto) 55.0 Lymph % (Auto) 29.7 [place] % (Auto) 7.0 Eos % (Auto) 6.9 H Baso % (Auto) 1.4 Neut # 1.9 Lymph # 1.0 [place] # 0.2 Eos # 0.2 Baso # 0.0 ESR 17 Retic Count 0.5 D Fibrinogen Sodium Potassium Chloride Carbon Dioxide Anion Gap BUN Creatinine Est GFR ( Amer) Est GFR (Non-Af Amer) POC Glucose (mg/dL) 140 H Random Glucose Calcium Magnesium Iron TIBC % Saturation Lactate Dehydrogenase Total Creatine Kinase Triglycerides Cholesterol LDL Cholesterol Direct HDL Cholesterol Folate Free T4 Total T3 TSH 3rd Generation 01/16/17 01/16/17 01/16/17 04:30 04:30 04:30 WBC RBC Hgb Hct MCV MCH MCHC RDW Plt Count MPV Neut % (Auto) Lymph % (Auto) [place] % (Auto) Eos % (Auto) Baso % (Auto) Neut # Lymph # [place] # Eos # Baso # ESR Retic Count Fibrinogen 302 Sodium 135 Potassium 3.8 Chloride 104 Carbon Dioxide 25 Anion Gap 10 BUN 14 Creatinine 0.9 Est GFR ( Amer) > 60 Est GFR (Non-Af Amer) > 60 POC Glucose (mg/dL) Random Glucose 90 Calcium 8.4 Magnesium 1.5 L Iron TIBC % Saturation Lactate Dehydrogenase 309 L Total Creatine Kinase 93 Triglycerides 55 Cholesterol 84 LDL Cholesterol Direct 35 HDL Cholesterol 36 Folate > 20.0 Free T4 1.38 Total T3 0.682 L TSH 3rd Generation 0.81 01/16/17 04:30 WBC RBC Hgb Hct MCV MCH MCHC RDW Plt Count MPV Neut % (Auto) Lymph % (Auto) [place] % (Auto) Eos % (Auto) Baso % (Auto) Neut # Lymph # [place] # Eos # Baso # ESR Retic Count Fibrinogen Sodium Potassium Chloride Carbon Dioxide Anion Gap BUN Creatinine Est GFR ( Amer) Est GFR (Non-Af Amer) POC Glucose (mg/dL) Random Glucose Calcium Magnesium Iron 48 L TIBC 224 L % Saturation 21 Lactate Dehydrogenase Total Creatine Kinase Triglycerides Cholesterol LDL Cholesterol Direct HDL Cholesterol Folate Free T4 Total T3 TSH 3rd Generation - EKG Data EKG Interpreted by: Myself EKG shows normal: Sinus rhythm - Imaging and Cardiology Chest x-ray Status: Report reviewed by me CT scan - head Status: Report reviewed by me Assessment & Plan (1) Left hand weakness Status: Acute Comment: neuropathy\ CVA r\o acute etiology. MRI of the head,. ASA. Statins. carotid doppler. swallow evaluvation. ECHO. (2) Abnormal chest x-ray Status: Chronic Comment: will call chest clinic. CTscan of chest. 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 r\o fungal infection (3) COPD with emphysema Status: Chronic Priority: Medium Comment: nebs PRN. refuse nicotine patch. continue inhalers (4) Chronic pain disorder Status: Chronic Priority: High (5) Tobacco abuse Status: Chronic Priority: High (6) Afib Status: Suspected Comment: to review old records. gerardnet aware, notes he sees cardiology as OP, can not recall name , not sure of anticoagulants. Decision To Admit - Pt Status Changed To: Hospital Disposition Of: Inpatient - Admit Certification Admit to Inpatient:: After my assessment, the patient will require hospitalization for at least two midnights. This is because of the severity of symptoms shown, intensity of services needed, and/or the medical risk in this patient being treated as an outpatient. - . Bed Request Type: Telemetry Admitting Physician: Luis Desouza
[2017-01-17] MEDS ORDERED: Iodixanol 320 MG/ML 100 ML BOTTLE IV ONE (08:24)
[2017-01-17] MEDS ORDERED: Sodium Chloride 0.9% 50 ML IV ONE (08:24)
[2017-01-17 08:42] LABS: RBC URINE 11 /hpf (0-3); URINE BACTERIA MANY (<OCC); URINE BILIRUBIN NEGATIVE (NEGATIVE); URINE BLOOD SMALL (NEGATIVE); URINE COLOR YELLOW (YELLOW); URINE GLUCOSE (UA) NEG (Normal); URINE KETONE NEGATIVE (NEGATIVE); URINE LEUKOCYTE ESTERASE LARGE Leu/uL (Negative); URINE PROTEIN NEGATIVE (NEGATIVE); URINE UROBILINOGEN 0.2-1.0 mg/dL (0.2-1.0); WBC URINE 105 /hpf (0-5)
[2017-01-17] MEDS: Enoxaparin 40 mg Syringe SC SCH (09:32)
[2017-01-17] MEDS: Magnesium Oxide 400 mg Tab UD PO SCH ×2 (09:32→16:03)
[2017-01-17] MEDS: Fluticasone-Salmeterol 250-50mcg Diskus IH SCH ×2 (09:33→16:04)
--- NOTE | 2017-01-17 11:59 | CT ---
PROCEDURE: CTA of the neck and brain HISTORY: Vasculitis/ dissection. COMPARISON: Comparison made with MRI of the brain dated 01/16/[address] scan brain dated 01/15/2017. . TECHNIQUE: Contiguous helical/transaxial sections of the neck were obtained from the level of the skull-base to the superior mediastinum in the arteriographic phase of enhancement. Coronal and sagittal reformats or also generated. IV contrast dose: 51 cc Visipaque 320 contrast material Radiation Dose - DLP: 2259.26 mGy-cm This CT exam was performed using one or more of the following dose reduction techniques: Automated exposure control, adjustment of the mA and/or kV according to patient size, and/or use of iterative reconstruction technique. Origins of the great vessels are not incompletely visualized however there appears to be some minimal partially calcified focal plaque along the proximal right brachiocephalic artery. The left vertebral artery apparently arises directly from the aortic arch ; the left vertebral artery does not arise from the typical location off of the left subclavian artery. The right and left common carotid arteries are well opacified and widely patent with no evidence of significant stenosis. Mild partially calcified plaque changes seen on both carotid bifurcations without occlusion or significant stenosis. . The internal carotid arteries including the petrous, cavernous and supraclinoid segments are patent. No evidence of dissection. Re- demonstrated are partially calcified atherosclerotic plaque changes along carotid siphons. . The A1 and M1 segments are patent without congenital abnormality occlusion or significant stenosis. The distal anterior and middle cerebral artery branches are unremarkable. No evidence of occlusion nor significant stenosis. . No. No evidence of large aneurysm nor vascular malformation arising from the anterior circulation. . As mentioned above, presumed aortic arch origin of the left vertebral artery. There is asymmetry of the vertebral arteries, right-sided larger in caliber/more dominant than the left. . Dural segments of the vertebral arteries as well as basilar artery and posterior cerebral arteries are patent. No evidence of large aneurysm nor vascular malformation arising from the anterior circulation. No evidence to suggest vasculitis. Note again made of a cavitary mass lesion right lung apex which was described in detail on prior CT scan chest dated 01/15/2017. Re- demonstrated are significant emphysematous changes in the upper lobes with prominent blebs and small bullous bullous. Impression: There are mild atherosclerotic plaque changes seen at both carotid bifurcations. No evidence of occlusion, dissection or significant stenosis. The origin of the left vertebral artery is not seen due to slice placement though presumably arises directly from the aortic arch and not from the left subclavian (which is typical). No evidence to suggest vasculitis on this study
--- NOTE | 2017-01-17 13:15 | CP.PCM.PN ---
Objective - Vital Signs/Intake and Output Vital Signs (last 24 hours): Temp Pulse Resp BP Pulse Ox 98.5 F 62 18 121/68 92 L 01/17/17 12:00 01/17/17 12:00 01/17/17 12:00 01/17/17 12:00 01/17/17 12:00 Intake and Output: 01/17/17 01/17/17 06:59 18:59 Intake Total 1010 Output Total 900 Balance 110 - Medications Medications: Current Medications Aspirin (Aspirin Chewable) 81 mg PO DAILY [facility] Last Admin: 01/17/17 09:33 Dose: 81 mg Atorvastatin Calcium (Lipitor) 20 mg PO DAILY [facility] Last Admin: 01/17/17 09:32 Dose: 20 mg Docusate Sodium (Colace) 100 mg PO DAILY [facility] Enoxaparin Sodium (Lovenox) 40 mg SC DAILY [facility] PRN Reason: Protocol Last Admin: 01/17/17 09:32 Dose: 40 mg Lactulose (Enulose) 10 gm PO DAILY PRN PRN Reason: Constipation Magnesium Oxide (Mag-Ox) 400 mg PO BID [facility] Last Admin: 01/17/17 09:32 Dose: 400 mg Morphine Sulfate (Morphine) 2 mg IVP Q8 PRN PRN Reason: Pain, severe (8-10) Last Admin: 01/17/17 09:45 Dose: 2 mg Fluticasone/Salmeterol (Advair Diskus 250/50) 1 puff IH BID [facility] Last Admin: 01/17/17 09:33 Dose: 1 puff - Labs Labs: 01/16/17 03:07 01/16/17 04:30 PT 10.4 Seconds (9.8-13.1) 01/15/17 13:03 INR 1.0 (0.9-1.2) 01/15/17 13:03 APTT 30.4 Seconds (25.6-37.1) 01/15/17 13:03 Assessment and Plan (1) TIA (transient ischemic attack) Status: Acute (2) Pancytopenia Status: Acute (3) Cavitary lesion of lung Status: Acute (4) Tobacco abuse Status: Acute (5) COPD (chronic obstructive pulmonary disease) Status: Chronic (6) Chronic pain disorder Status: Chronic
[2017-01-17] MEDS: Lactulose 10 gm/15 ml Syrup PO PRN (13:56)
--- NOTE | 2017-01-17 19:12 | PN ---
DATE: NEUROLOGICAL PROBLEM: Possible right cortical stroke. PHYSICAL EXAMINATION: VITAL SIGNS: Blood pressure 159/80, mean arterial pressure of 106, respiratory rate 16, temperature afebrile, and pulse rate 59. The patient is more awake, alert, and oriented to person, place, and time. His weakness and wrist drop all gone on his left side. On examination, no long tract signs are noted except mild sensory and motor neuropathy, which is unchanged. This workup showed emboli on his right cortical region, which cannot be explaining his clinical presentation. His workup of carotid Doppler does not show any significant stenosis. CT angiogram also done, which does not explain his thrombogenesis. At this point, I would like him to have transesophageal echocardiogram to rule out any thrombogenesis for his cryptogenic stroke. The patient has been discussed with the resident this morning. Vin Henson MD [facility]
--- NOTE | 2017-01-17 23:55 | CP.PCM.PN ---
Subjective - Date & Time of Evaluation Date of Evaluation: 01/17/17 Time of Evaluation: 08:00 - Subjective Subjective: MRI showed acute frontoparital CVA, CTA pending AFB-pending. LABS reviewed wants pain meds he is less irritable, on isolation. ID called ECHO- 35-40 per EF,global hypokinesis cardiology on board Objective - Vital Signs/Intake and Output Vital Signs (last 24 hours): Temp Pulse Resp BP Pulse Ox 98.8 F 64 20 135/82 97 01/17/17 19:29 01/17/17 19:29 01/17/17 19:29 01/17/17 19:29 01/17/17 19:29 Intake and Output: 01/17/17 01/18/17 18:59 06:59 Intake Total 1000 Output Total 800 Balance 200 - Medications Medications: Current Medications Aspirin (Aspirin Chewable) 81 mg PO DAILY [facility] Last Admin: 01/17/17 09:33 Dose: 81 mg Atorvastatin Calcium (Lipitor) 20 mg PO DAILY [facility] Last Admin: 01/17/17 09:32 Dose: 20 mg Clopidogrel Bisulfate (Plavix) 75 mg PO DAILY [facility] Last Admin: 01/17/17 15:02 Dose: 75 mg Docusate Sodium (Colace) 100 mg PO DAILY [facility] Last Admin: 01/17/17 13:56 Dose: 100 mg Enoxaparin Sodium (Lovenox) 40 mg SC DAILY [facility] PRN Reason: Protocol Last Admin: 01/17/17 09:32 Dose: 40 mg Lactulose (Enulose) 10 gm PO DAILY PRN PRN Reason: Constipation Last Admin: 01/17/17 13:56 Dose: 10 gm Magnesium Oxide (Mag-Ox) 400 mg PO BID [facility] Last Admin: 01/17/17 16:03 Dose: 400 mg Morphine Sulfate (Morphine) 2 mg IVP Q6 PRN PRN Reason: Pain, severe (8-10) Last Admin: 01/17/17 20:10 Dose: 2 mg Fluticasone/Salmeterol (Advair Diskus 250/50) 1 puff IH BID [facility] Last Admin: 01/17/17 16:04 Dose: 1 puff - Labs Labs: 01/16/17 03:07 01/16/17 04:30 PT 10.4 Seconds (9.8-13.1) 01/15/17 13:03 INR 1.0 (0.9-1.2) 01/15/17 13:03 APTT 30.4 Seconds (25.6-37.1) 01/15/17 13:03 - Additional Findings Additional findings: Constitutional Appears: No Acute Distress , NC\AT, Fragile - Head Exam Head Exam: ATRAUMATIC, NORMAL INSPECTION - Eye Exam Eye Exam: EOMI, Normal appearance, PERRL - ENT Exam ENT Exam: Normal Exam - Neck Exam Neck exam: Positive for: Normal Inspection. Negative for: Thyromegaly - Respiratory Exam Respiratory Exam: Clear to Auscultation Bilateral, NORMAL BREATHING PATTERN - Cardiovascular Exam Cardiovascular Exam: REGULAR RHYTHM, +S1, +S2, Systolic Murmur - GI/Abdominal Exam GI & Abdominal Exam: Normal Bowel Sounds, Soft. absent: Distended, Organomegaly , Tenderness Back exam: NORMAL INSPECTION, lower back paraspinal tenderness - Neurological Exam Neurological exam: Alert, CN II-XII Intact, Oriented x3 left hand weakness , reflexes-1 + b\L UE\LE, [place]-equivocal unequal legs rt < left - Skin Skin Exam: Intact, pallor, no wounds noted Assessment and Plan (1) CVA (cerebral vascular accident) Assessment & Plan: cardiology called as no clear cuase of CVA except chronic smoking evalution for KATHERINE on ASA\plavix Status: Acute (2) Cavitary lesion of lung Assessment & Plan: ID on board r\o active TB AFIB -pending pulmonology evaluvation with smoking\ cavity Status: Chronic (3) COPD (chronic obstructive pulmonary disease) Status: Chronic (4) Afib Assessment & Plan: reviewed old reports episode of afib on ASA\PLAVIX ECHO- No thrombus Status: Suspected
[2017-01-18 06:09] LABS: HEMATOCRIT 35.4 % (35.0-51.0); MEAN CELL VOLUME 94.9 fl (80.0-94.0); MEAN CORPUSCULAR HEMOGLOBIN 32.4 pg (27.0-31.0); MEAN CORPUSCULAR HGB CONC 34.1 g/dL (33.0-37.0); RED CELL DISTRIBUTION WIDTH 14.4 % (11.5-14.5); WHITE BLOOD COUNT 4.4 K/uL (4.8-10.8)
[2017-01-18 06:20] LABS: BLOOD UREA NITROGEN 10 mg/dl (9-20); CALCIUM 8.4 mg/dL (8.4-10.2); CARBON DIOXIDE 25 mmol/L (22-30); CHLORIDE 100 mmol/L (98-107); GFR AFRICAN-AMERICAN > 60; GLUCOSE,RANDOM 94 mg/dL (75-110); POTASSIUM 3.7 MMOL/L (3.6-5.0); SODIUM 131 mmol/l (132-148)
[2017-01-18] MEDS: Enoxaparin 40 mg Syringe SC SCH (08:32)
[2017-01-18] MEDS: Magnesium Oxide 400 mg Tab UD PO SCH ×2 (08:33→17:35)
[2017-01-18] MEDS: Fluticasone-Salmeterol 250-50mcg Diskus IH SCH ×2 (08:33→17:35)
[2017-01-18] MEDS: Lactulose 10 gm/15 ml Syrup PO PRN (08:40)
[2017-01-18] MEDS ORDERED: Potassium Chloride 20 mEq ER Tab PO ONE (12:50)
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
--- NOTE | 2017-01-18 16:07 | CARD ---
APPROVED REPORT EKG Measurement Heart [id number] <Conclusion> Normal sinus rhythm with sinus arrhythmia Low voltage QRS Borderline ECG
[2017-01-18] MEDS: Enoxaparin 60 mg Syringe SC SCH (20:24)
--- NOTE | 2017-01-18 21:14 | CP.PCM.PN ---
Objective - Vital Signs/Intake and Output Vital Signs (last 24 hours): Temp Pulse Resp BP Pulse Ox 98.5 F 59 L 20 145/85 100 01/18/17 19:48 01/18/17 19:48 01/18/17 19:48 01/18/17 19:48 01/18/17 19:48 Intake and Output: 01/18/17 01/19/17 18:59 06:59 Intake Total 740 Output Total 550 Balance 190 - Medications Medications: Current Medications Aspirin (Aspirin Chewable) 81 mg PO DAILY [facility] Last Admin: 01/18/17 08:33 Dose: 81 mg Atorvastatin Calcium (Lipitor) 20 mg PO DAILY [facility] Last Admin: 01/18/17 08:33 Dose: 20 mg Clopidogrel Bisulfate (Plavix) 75 mg PO DAILY [facility] Last Admin: 01/18/17 08:34 Dose: 75 mg Docusate Sodium (Colace) 100 mg PO DAILY [facility] Last Admin: 01/18/17 08:39 Dose: 100 mg Enoxaparin Sodium (Lovenox) 60 mg SC Q12 [facility] PRN Reason: Protocol Last Admin: 01/18/17 20:24 Dose: 60 mg Lactulose (Enulose) 10 gm PO DAILY PRN PRN Reason: Constipation Last Admin: 01/18/17 08:40 Dose: 10 gm Magnesium Oxide (Mag-Ox) 400 mg PO BID [facility] Last Admin: 01/18/17 17:35 Dose: 400 mg Morphine Sulfate (Morphine) 2 mg IVP Q6 PRN PRN Reason: Pain, severe (8-10) Last Admin: 01/18/17 20:24 Dose: 2 mg Fluticasone/Salmeterol (Advair Diskus 250/50) 1 puff IH BID [facility] Last Admin: 01/18/17 17:35 Dose: 1 puff - Labs Labs: 01/18/17 05:20 01/18/17 05:20 PT 10.4 Seconds (9.8-13.1) 01/15/17 13:03 INR 1.0 (0.9-1.2) 01/15/17 13:03 APTT 30.4 Seconds (25.6-37.1) 01/15/17 13:03 Assessment and Plan (1) TIA (transient ischemic attack) Status: Acute (2) Pancytopenia Status: Acute (3) Cavitary lesion of lung Status: Acute (4) Tobacco abuse Status: Chronic (5) COPD (chronic obstructive pulmonary disease) Status: Chronic (6) Chronic pain disorder Status: Chronic
--- NOTE | 2017-01-19 00:21 | CP.PCM.PN ---
Subjective - Date & Time of Evaluation Date of Evaluation: 01/18/17 Time of Evaluation: 09:00 - Subjective Subjective: as per previous records, episode of AFib Noted. patient not able recollect event.does see cardiology as OP hx of left eye blindness ? cataract had loose stool this am. stable vitals chest clinic- trying to get report Objective - Vital Signs/Intake and Output Vital Signs (last 24 hours): Temp Pulse Resp BP Pulse Ox 98.3 F 63 18 130/73 100 01/18/17 23:56 01/18/17 23:56 01/18/17 23:56 01/18/17 23:56 01/18/17 23:56 Intake and Output: 01/18/17 01/19/17 18:59 06:59 Intake Total 740 Output Total 550 Balance 190 - Medications Medications: Current Medications Aspirin (Aspirin Chewable) 81 mg PO DAILY [facility] Last Admin: 01/18/17 08:33 Dose: 81 mg Atorvastatin Calcium (Lipitor) 20 mg PO DAILY [facility] Last Admin: 01/18/17 08:33 Dose: 20 mg Clopidogrel Bisulfate (Plavix) 75 mg PO DAILY [facility] Last Admin: 01/18/17 08:34 Dose: 75 mg Docusate Sodium (Colace) 100 mg PO DAILY [facility] Last Admin: 01/18/17 08:39 Dose: 100 mg Enoxaparin Sodium (Lovenox) 60 mg SC Q12 [facility] PRN Reason: Protocol Last Admin: 01/18/17 20:24 Dose: 60 mg Lactulose (Enulose) 10 gm PO DAILY PRN PRN Reason: Constipation Last Admin: 01/18/17 08:40 Dose: 10 gm Magnesium Oxide (Mag-Ox) 400 mg PO BID [facility] Last Admin: 01/18/17 17:35 Dose: 400 mg Morphine Sulfate (Morphine) 2 mg IVP Q6 PRN PRN Reason: Pain, severe (8-10) Last Admin: 01/18/17 20:24 Dose: 2 mg Fluticasone/Salmeterol (Advair Diskus 250/50) 1 puff IH BID [facility] Last Admin: 01/18/17 17:35 Dose: 1 puff - Labs Labs: 01/18/17 05:20 01/18/17 05:20 PT 10.4 Seconds (9.8-13.1) 01/15/17 13:03 INR 1.0 (0.9-1.2) 01/15/17 13:03 APTT 30.4 Seconds (25.6-37.1) 01/15/17 13:03 - Additional Findings Additional findings: Constitutional Appears: No Acute Distress , NC\AT, Fragile - Head Exam Head Exam: ATRAUMATIC, NORMAL INSPECTION - Eye Exam Eye Exam: EOMI, Normal appearance, PERRL - ENT Exam ENT Exam: Normal Exam - Neck Exam Neck exam: Positive for: Normal Inspection. Negative for: Thyromegaly - Respiratory Exam Respiratory Exam: Clear to Auscultation Bilateral, NORMAL BREATHING PATTERN - Cardiovascular Exam Cardiovascular Exam: REGULAR RHYTHM, +S1, +S2, Systolic Murmur - GI/Abdominal Exam GI & Abdominal Exam: Normal Bowel Sounds, Soft. absent: Distended, Organomegaly , Tenderness Back exam: NORMAL INSPECTION, lower back paraspinal tenderness - Neurological Exam Neurological exam: Alert, CN II-XII Intact, Oriented x3 left hand weakness , reflexes-1 + b\L UE\LE, [place]-equivocal unequal legs rt < left - Skin Skin Exam: Intact, pallor, no wounds noted Assessment and Plan (1) COPD (chronic obstructive pulmonary disease) Status: Chronic (2) Cavitary lesion of lung Status: Chronic (3) Chronic pain disorder Status: Chronic (4) Afib Status: Suspected - Assessment and Plan (Free Text) Plan: cardiolgy did not recommend KATHERINE conitnue current meds f\u c\s to f\u with cardiology\pulmonology
[2017-01-19] MEDS: oxyCODONE 10 mg ER Tab (oxyCONTIN) PO SCH ×2 (09:34→20:25)
[2017-01-19] MEDS: Enoxaparin 60 mg Syringe SC SCH ×2 (09:35→20:26)
[2017-01-19] MEDS: Fluticasone-Salmeterol 250-50mcg Diskus IH SCH ×2 (09:36→16:22)
[2017-01-19] MEDS: Magnesium Oxide 400 mg Tab UD PO SCH ×2 (09:37→16:24)
--- NOTE | 2017-01-19 11:35 | CP.PCM.PN ---
Subjective - Date & Time of Evaluation Date of Evaluation: 01/19/17 Time of Evaluation: 11:35 - Subjective Subjective: No new events. afebrile no cough Objective - Vital Signs/Intake and Output Vital Signs (last 24 hours): Temp Pulse Resp BP Pulse Ox 98.5 F 61 18 139/83 95 01/19/17 08:00 01/19/17 08:00 01/19/17 08:00 01/19/17 08:00 01/19/17 08:00 - Medications Medications: Current Medications Aspirin (Aspirin Chewable) 81 mg PO DAILY [facility] Last Admin: 01/19/17 09:35 Dose: 81 mg Atorvastatin Calcium (Lipitor) 20 mg PO DAILY [facility] Last Admin: 01/19/17 09:37 Dose: 20 mg Clopidogrel Bisulfate (Plavix) 75 mg PO DAILY [facility] Last Admin: 01/19/17 09:36 Dose: 75 mg Docusate Sodium (Colace) 100 mg PO DAILY [facility] Last Admin: 01/19/17 09:36 Dose: 100 mg Enoxaparin Sodium (Lovenox) 60 mg SC Q12 [facility] PRN Reason: Protocol Last Admin: 01/19/17 09:35 Dose: 60 mg Lactulose (Enulose) 10 gm PO DAILY PRN PRN Reason: Constipation Last Admin: 01/18/17 08:40 Dose: 10 gm Magnesium Oxide (Mag-Ox) 400 mg PO BID [facility] Last Admin: 01/19/17 09:37 Dose: 400 mg Oxycodone HCl (Oxycontin Extended Release Tab) 30 mg PO Q12 [facility] Stop: 01/22/17 09:01 Last Admin: 01/19/17 09:34 Dose: 30 mg Fluticasone/Salmeterol (Advair Diskus 250/50) 1 puff IH BID [facility] Last Admin: 01/19/17 09:36 Dose: 1 puff - Labs Labs: - Additional Findings Additional findings: - Constitutional Appears: No Acute Distress - Head Exam Head Exam: ATRAUMATIC - Eye Exam Eye Exam: EOMI - ENT Exam ENT Exam: Normal Oropharynx - Neck Exam Neck exam: Positive for: Full Rom - Respiratory Exam Respiratory Exam: NORMAL BREATHING PATTERN Additional comments: good aeration b/l no wheezing - Cardiovascular Exam Cardiovascular Exam: RRR, +S1, +S2 - GI/Abdominal Exam GI & Abdominal Exam: Normal Bowel Sounds, Soft Additional comments: NT, ND - Extremities Exam Additional comments: no edema b/l LE Laboratory Results - last 72 hr 01/16/17 01/16/17 01/16/17 04:30 04:30 04:30 WBC RBC Hgb Hct MCV MCH MCHC RDW Plt Count Haptoglobin 114 Sodium Potassium Chloride Carbon Dioxide Anion Gap BUN Creatinine Est GFR ( Amer) Est GFR (Non-Af Amer) Random Glucose Calcium RBC Magnesium 4.4 RBC Folate 661 Urine Color Urine Clarity Urine pH Ur Specific [place] Urine Protein Urine Glucose (UA) Urine Ketones Urine Blood Urine Nitrate Urine Bilirubin Urine Urobilinogen Ur Leukocyte Esterase Urine RBC (Auto) Urine Microscopic WBC Ur Squamous Epith Cells Urine Bacteria Ur Yeast w [place] Urine Opiates Screen Urine Methadone Screen Ur Barbiturates Screen Ur Phencyclidine Scrn Ur Amphetamines Screen U Benzodiazepines Scrn U Oth Cocaine Metabols U Cannabinoids Screen 01/16/17 01/17/17 01/18/17 07:20 07:12 05:20 WBC 4.4 L RBC 3.73 L Hgb 12.1 Hct 35.4 MCV 94.9 H MCH 32.4 H MCHC 34.1 RDW 14.4 Plt Count 127 L D Haptoglobin Sodium Potassium Chloride Carbon Dioxide Anion Gap BUN Creatinine Est GFR ( Amer) Est GFR (Non-Af Amer) Random Glucose Calcium RBC Magnesium RBC Folate Urine Color Yellow Urine Clarity Cloudy Urine pH 6.0 Ur Specific [place] 1.010 Urine Protein Negative Urine Glucose (UA) Neg Urine Ketones Negative Urine Blood Small Urine Nitrate Negative Urine Bilirubin Negative Urine Urobilinogen 0.2-1.0 Ur Leukocyte Esterase Large Urine RBC (Auto) 11 H Urine Microscopic WBC 105 H Ur Squamous Epith Cells < 1 Urine Bacteria Many H Ur Yeast w [place] Few H Urine Opiates Screen Positive H Urine Methadone Screen Negative Ur Barbiturates Screen Negative Ur Phencyclidine Scrn Negative Ur Amphetamines Screen Negative U Benzodiazepines Scrn Positive H U Oth Cocaine Metabols Negative U Cannabinoids Screen Negative 01/18/17 05:20 WBC RBC Hgb Hct MCV MCH MCHC RDW Plt Count Haptoglobin Sodium 131 L Potassium 3.7 Chloride 100 Carbon Dioxide 25 Anion Gap 10 BUN 10 Creatinine 0.8 Est GFR ( Amer) > 60 Est GFR (Non-Af Amer) > 60 Random Glucose 94 Calcium 8.4 RBC Magnesium RBC Folate Urine Color Urine Clarity Urine pH Ur Specific [place] Urine Protein Urine Glucose (UA) Urine Ketones Urine Blood Urine Nitrate Urine Bilirubin Urine Urobilinogen Ur Leukocyte Esterase Urine RBC (Auto) Urine Microscopic WBC Ur Squamous Epith Cells Urine Bacteria Ur Yeast w [place] Urine Opiates Screen Urine Methadone Screen Ur Barbiturates Screen Ur Phencyclidine Scrn Ur Amphetamines Screen U Benzodiazepines Scrn U Oth Cocaine Metabols U Cannabinoids Screen Microbiology 01/18/17 12:41 Other: Please Indicate Mycobacterial Culture - Preliminary 01/17/17 08:34 Other: Please Indicate Mycobacterial Culture - Preliminary 01/16/17 07:20 Urine,Clean Catch Urine Culture - Final Yeast Species 01/16/17 12:21 Sputum Gram Stain - Final 01/16/17 12:21 Sputum Sputum Culture - Final Yeast Species Assessment and Plan (1) Cavitary lesion of lung Status: Acute (2) Pancytopenia Status: Acute (3) TIA (transient ischemic attack) Status: Acute - Assessment and Plan (Free Text) Assessment: A/P- 71 year old male with pmh of HTN, A.fib, COPD, 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 pt. does not have any cough or fever and the lung finding of apical cavitary lesion is not new . ct scan unchanged from previous Ct scans. afebrile no pulmonary symptoms at this time. sputum AFB- neg x 2 sputum cx- yeast urine cx- yeast plan- pt. was already treated for atypical pulm TB as per med records from 2014 and all his sputum AFB from 2015 were even negative. He is not coughing and chect Ct unchanged and hence I do not think he needs to be ruled out for AFB. d/c AFB isolation. as for the light yeast growth on sputum cx , can give pt few days of oral fluconazole . would f/u with neuro rec regarding his TIA and wekaness symptoms. No need for any antibiotics at this time. all above d/w [employer] Kathy Cancino.
--- NOTE | 2017-01-19 11:44 | CP.PCM.PCO ---
Assessment & Plan - Assessment and Plan (Free Text) Assessment: 71 yr old Male admitted with Acute CVA; pt. with Hx of Atypical pulm TB treated as per med records from 2015 and all his sputum AFB from 2015 negative. Case discussed with TB Clinic and patient's pulmonary MD office of who verified that patient was treated. As per , and health psychologist Robbi Dover , patient may bd D/c from isolation, No further need for AFB patient cleared for discharge to TCU today by and / pt. in agreement to go to TCU today. cont. PT/OT cont. Lovenox 60 q12, ASA, plavix monitor cbc, bmp will f/u pt. in TCU
--- NOTE | 2017-01-19 14:06 | CP.PCM.PN ---
Subjective - Subjective Subjective: No AD , No cough , no SOB , Objective - Vital Signs/Intake and Output Vital Signs (last 24 hours): Temp Pulse Resp BP Pulse Ox 98.5 F 60 18 127/70 96 01/19/17 12:00 01/19/17 12:00 01/19/17 12:00 01/19/17 12:00 01/19/17 12:00 - Medications Medications: Current Medications Aspirin (Aspirin Chewable) 81 mg PO DAILY [facility] Last Admin: 01/19/17 09:35 Dose: 81 mg Atorvastatin Calcium (Lipitor) 20 mg PO DAILY [facility] Last Admin: 01/19/17 09:37 Dose: 20 mg Clopidogrel Bisulfate (Plavix) 75 mg PO DAILY [facility] Last Admin: 01/19/17 09:36 Dose: 75 mg Docusate Sodium (Colace) 100 mg PO DAILY [facility] Last Admin: 01/19/17 09:36 Dose: 100 mg Enoxaparin Sodium (Lovenox) 60 mg SC Q12 [facility] PRN Reason: Protocol Last Admin: 01/19/17 09:35 Dose: 60 mg Lactulose (Enulose) 10 gm PO DAILY PRN PRN Reason: Constipation Last Admin: 01/18/17 08:40 Dose: 10 gm Magnesium Oxide (Mag-Ox) 400 mg PO BID [facility] Last Admin: 01/19/17 09:37 Dose: 400 mg Oxycodone HCl (Oxycontin Extended Release Tab) 30 mg PO Q12 [facility] Stop: 01/22/17 09:01 Last Admin: 01/19/17 09:34 Dose: 30 mg Fluticasone/Salmeterol (Advair Diskus 250/50) 1 puff IH BID [facility] Last Admin: 01/19/17 09:36 Dose: 1 puff - Labs Labs: 01/18/17 05:20 01/18/17 05:20 PT 10.4 Seconds (9.8-13.1) 01/15/17 13:03 INR 1.0 (0.9-1.2) 01/15/17 13:03 APTT 30.4 Seconds (25.6-37.1) 01/15/17 13:03 - Constitutional Appears: No Acute Distress - Head Exam Head Exam: NORMAL INSPECTION - Eye Exam Eye Exam: PERRL - ENT Exam ENT Exam: Normal Oropharynx - Neck Exam Neck Exam: Normal Inspection - Respiratory Exam Respiratory Exam: Clear to Ausculation Bilateral - Cardiovascular Exam Cardiovascular Exam: REGULAR RHYTHM - GI/Abdominal Exam GI & Abdominal Exam: Soft, Normal Bowel Sounds - Extremities Exam Extremities Exam: Normal Inspection - Back Exam Back Exam: tenderness - Neurological Exam Neurological Exam: CN II-XII Intact. absent: Motor Sensory Deficit - Psychiatric Exam Psychiatric exam: Anxious - Skin Skin Exam: Warm Assessment and Plan (1) Cavitary lesion of lung Status: Acute (2) COPD (chronic obstructive pulmonary disease) Status: Chronic (3) Tobacco abuse Status: Chronic - Assessment and Plan (Free Text) Assessment: 3 sputum AFB ( neg ), Respiratory Isolation DC. Pulmonary cleared for DD , suggest Bevespi as out patient
[2017-01-19] MEDS ORDERED: oxyCODONE 5 mg Immediate Release Tab PO ONE (15:35)
[2017-01-19 15:37] VITALS: RESP 20; TEMP 98.4
--- NOTE | 2017-01-19 17:43 | CP.PCM.PN ---
Objective - Vital Signs/Intake and Output Vital Signs (last 24 hours): Temp Pulse Resp BP Pulse Ox 98.4 F 56 L 20 117/71 97 01/19/17 15:36 01/19/17 15:36 01/19/17 15:36 01/19/17 15:36 01/19/17 15:36 - Medications Medications: Current Medications Aspirin (Aspirin Chewable) 81 mg PO DAILY [facility] Last Admin: 01/19/17 09:35 Dose: 81 mg Atorvastatin Calcium (Lipitor) 20 mg PO DAILY [facility] Last Admin: 01/19/17 09:37 Dose: 20 mg Clopidogrel Bisulfate (Plavix) 75 mg PO DAILY [facility] Last Admin: 01/19/17 09:36 Dose: 75 mg Docusate Sodium (Colace) 100 mg PO DAILY [facility] Last Admin: 01/19/17 09:36 Dose: 100 mg Enoxaparin Sodium (Lovenox) 60 mg SC Q12 [facility] PRN Reason: Protocol Last Admin: 01/19/17 09:35 Dose: 60 mg Fluconazole (Diflucan) 100 mg PO DAILY [facility] Lactulose (Enulose) 10 gm PO DAILY PRN PRN Reason: Constipation Last Admin: 01/18/17 08:40 Dose: 10 gm Magnesium Oxide (Mag-Ox) 400 mg PO BID [facility] Last Admin: 01/19/17 16:24 Dose: 400 mg Oxycodone HCl (Oxycontin Extended Release Tab) 30 mg PO Q12 [facility] Stop: 01/22/17 09:01 Last Admin: 01/19/17 09:34 Dose: 30 mg Fluticasone/Salmeterol (Advair Diskus 250/50) 1 puff IH BID [facility] Last Admin: 01/19/17 16:22 Dose: 1 puff - Labs Labs: 01/18/17 05:20 01/18/17 05:20 PT 10.4 Seconds (9.8-13.1) 01/15/17 13:03 INR 1.0 (0.9-1.2) 01/15/17 13:03 APTT 30.4 Seconds (25.6-37.1) 01/15/17 13:03 Assessment and Plan (1) TIA (transient ischemic attack) Status: Acute (2) Pancytopenia Status: Acute (3) Cavitary lesion of lung Status: Acute (4) Tobacco abuse Status: Chronic (5) COPD (chronic obstructive pulmonary disease) Status: Chronic (6) Chronic pain disorder Status: Chronic
--- NOTE | 2017-01-19 18:02 | CP.PCM.CON ---
History of Present Illness - History of Present Illness History of Present Illness: 71 yo man w/ various co-morbidities is referred for pain management. Patient follows Dr. Lentz of [place] for pain management and according to him usually takes Roxicodone 30mg q6h, and Hydrocodone at night for sleep. He's been on this regimen for years. The primary team has put him on Oxycontin 30mg since admission due to Roxicodone not being on formulary. Patient states that Oxycontin is dangerous because it's highly addicting but understands that he cannot take Roxicodone here as it's not on formulary. He's likely to be discharged early next week. He states that he has enough medications at home and will follow up with Dr. Lentz when appropriate. Past Patient History - Infectious Disease Hx of Infectious Diseases: None - Tetanus Immunizations Tetanus Immunization: Unknown - Past Medical History & Family History Past Medical History?: Yes - Past Social History Smoking Status: Heavy Smoker > 10 Cigarettes Daily Alcohol: None Drugs: Denies Home Situation {Lives}: Alone - CARDIAC Hx Cardiac Disorders: Yes Hx Atrial Fibrillation: Yes Hx Hypertension: Yes - PULMONARY Hx Respiratory Disorders: Yes Hx Chronic Obstructive Pulmonary Disease (COPD): Yes Hx Pneumonia: Yes - NEUROLOGICAL Hx Neurological Disorder: No - HEENT Hx HEENT Problems: Yes Other/Comment: Glasses - RENAL Hx Chronic Kidney Disease: No - ENDOCRINE/METABOLIC Hx Endocrine Disorders: No - HEMATOLOGICAL/ONCOLOGICAL Hx Blood Disorders: No - INTEGUMENTARY Hx Dermatological Problems: No - MUSCULOSKELETAL/RHEUMATOLOGICAL Hx Musculoskeletal Disorders: Yes Hx Back Pain: Yes Hx Falls: Yes Hx Fractures: Yes Hx Rheumatoid Arthritis: Yes - GASTROINTESTINAL Hx Gastrointestinal Disorders: Yes Hx Ulcer: Yes - GENITOURINARY/GYNECOLOGICAL Hx Genitourinary Disorders: No - PSYCHIATRIC Hx Psychophysiologic Disorder: No Hx Substance Use: No - SURGICAL HISTORY Hx Surgeries: Yes Hx Cholecystectomy: Yes - ANESTHESIA Hx Anesthesia: Yes Hx Anesthesia Reactions: No Hx Malignant Hyperthermia: No Meds Allergies/Adverse Reactions: Allergies Allergy/AdvReac Type Severity Reaction Status Date / Time No Known Allergies Allergy Verified 01/15/17 12:31 - Medications Medications: Current Medications Aspirin (Aspirin Chewable) 81 mg PO DAILY [facility] Last Admin: 01/19/17 09:35 Dose: 81 mg Atorvastatin Calcium (Lipitor) 20 mg PO DAILY [facility] Last Admin: 01/19/17 09:37 Dose: 20 mg Clopidogrel Bisulfate (Plavix) 75 mg PO DAILY [facility] Last Admin: 01/19/17 09:36 Dose: 75 mg Docusate Sodium (Colace) 100 mg PO DAILY [facility] Last Admin: 01/19/17 09:36 Dose: 100 mg Enoxaparin Sodium (Lovenox) 60 mg SC Q12 [facility] PRN Reason: Protocol Last Admin: 01/19/17 09:35 Dose: 60 mg Fluconazole (Diflucan) 100 mg PO DAILY [facility] Lactulose (Enulose) 10 gm PO DAILY PRN PRN Reason: Constipation Last Admin: 01/18/17 08:40 Dose: 10 gm Magnesium Oxide (Mag-Ox) 400 mg PO BID [facility] Last Admin: 01/19/17 16:24 Dose: 400 mg Oxycodone HCl (Oxycontin Extended Release Tab) 30 mg PO Q12 [facility] Stop: 01/22/17 09:01 Last Admin: 01/19/17 09:34 Dose: 30 mg Fluticasone/Salmeterol (Advair Diskus 250/50) 1 puff IH BID [facility] Last Admin: 01/19/17 16:22 Dose: 1 puff Physical Exam - Respiratory Exam Respiratory Exam: NORMAL BREATHING PATTERN - Cardiovascular Exam Cardiovascular Exam: Irregular Rhythm Results - Vital Signs Recent Vital Signs: Last Vital Signs Temp 98.4 F 01/19/17 15:36 Pulse 56 L 01/19/17 15:36 Resp 20 01/19/17 15:36 BP 117/71 01/19/17 15:36 Pulse Ox 97 01/19/17 15:36 - Labs Result Diagrams: 01/18/17 05:20 01/18/17 05:20 Labs: Laboratory Results - last 24 hr 01/16/17 04:30 RBC Magnesium 4.4 Assessment & Plan (1) TIA (transient ischemic attack) Assessment and Plan: 71 yo man w/ chronic pain, on Roxicodone 30mg and Vicodin at home. It's an unusual regimen but will not attempt to overhaul the medications as he is likely to return to home regimen upon discharge. - continue Oxycontin 30mg q12h for now - can start Dilaudid PO for breakthrough pain for now, start with 4mg, increase to 6mg if necessary - patient to follow up with Dr. Lentz upon discharge Status: Acute
[2017-01-19 19:18] VITALS: BP 115/69; PULSE 66; O2SAT 96
--- NOTE | 2017-01-19 22:42 | CP.PCM.DIS ---
Provider - Provider Date of Admission: 01/15/17 14:41 Attending physician: Luis Desouza MD Time Spent in preparation of Discharge (in minutes): 30 Diagnosis - Discharge Diagnosis (1) CVA (cerebral vascular accident) Status: Acute (2) COPD with emphysema Status: Chronic Priority: Medium (3) Chronic pain disorder Status: Chronic Priority: High (4) Atypical mycobacterial infection of lung Status: Resolved (5) Fungal infection Status: Acute Comment: ID recomend d\c isolation as he was rx. started on diflucan. continue all other meds. for TCU. to f\u with cardio as OP. advise anticoagulation, but pateint does not want to consider Hospital Course - Lab Results Lab Results: Micro Results 01/18/17 12:41 Other: Please Indicate Mycobacterial Culture - Preliminary 01/17/17 08:34 Other: Please Indicate Mycobacterial Culture - Preliminary 01/16/17 07:20 Urine,Clean Catch Urine Culture - Final Yeast Species 01/16/17 12:21 Sputum Gram Stain - Final 01/16/17 12:21 Sputum Sputum Culture - Final Yeast Species Most Recent Lab Values WBC 4.4 K/uL (4.8-10.8) L 01/18/17 05:20 RBC 3.73 Mil/uL (4.40-5.90) L 01/18/17 05:20 Hgb 12.1 g/dL (12.0-18.0) 01/18/17 05:20 Hct 35.4 % (35.0-51.0) 01/18/17 05:20 MCV 94.9 fl (80.0-94.0) H 01/18/17 05:20 MCH 32.4 pg (27.0-31.0) H 01/18/17 05:20 MCHC 34.1 g/dL (33.0-37.0) 01/18/17 05:20 RDW 14.4 % (11.5-14.5) 01/18/17 05:20 Plt Count 127 K/uL (130-400) L D 01/18/17 05:20 MPV 7.0 fl (7.2-11.7) L 01/16/17 03:07 Neut % (Auto) 55.0 % (50.0-75.0) 01/16/17 03:07 Lymph % (Auto) 29.7 % (20.0-40.0) 01/16/17 03:07 Sullivan % (Auto) 7.0 % (0.0-10.0) 01/16/17 03:07 Eos % (Auto) 6.9 % (0.0-4.0) H 01/16/17 03:07 Baso % (Auto) 1.4 % (0.0-2.0) 01/16/17 03:07 Neut # 1.9 K/uL (1.8-7.0) 01/16/17 03:07 Lymph # 1.0 K/uL (1.0-4.3) 01/16/17 03:07 Sullivan # 0.2 K/uL (0.0-0.8) 01/16/17 03:07 Eos # 0.2 K/uL (0.0-0.7) 01/16/17 03:07 Baso # 0.0 K/uL (0.0-0.2) 01/16/17 03:07 ESR 17 mm/hr (0-20) 01/16/17 03:07 Retic Count 0.5 % (0.5-1.5) D 01/16/17 03:07 Haptoglobin 114 mg/dL (43-212) 01/16/17 04:30 PT 10.4 Seconds (9.8-13.1) 01/15/17 13:03 INR 1.0 (0.9-1.2) 01/15/17 13:03 APTT 30.4 Seconds (25.6-37.1) 01/15/17 13:03 Fibrinogen 302 mg/dl (200-400) 01/16/17 04:30 Sodium 131 mmol/l (132-148) L 01/18/17 05:20 Potassium 3.7 MMOL/L (3.6-5.0) 01/18/17 05:20 Chloride 100 mmol/L (98-107) 01/18/17 05:20 Carbon Dioxide 25 mmol/L (22-30) 01/18/17 05:20 Anion Gap 10 (10-20) 01/18/17 05:20 BUN 10 mg/dl (9-20) 01/18/17 05:20 Creatinine 0.8 mg/dL (0.8-1.5) 01/18/17 05:20 Est GFR ( Amer) > 60 01/18/17 05:20 Est GFR (Non-Af Amer) > 60 01/18/17 05:20 POC Glucose (mg/dL) 140 mg/dL (65-110) H 01/15/17 12:33 Random Glucose 94 mg/dL (75-110) 01/18/17 05:20 Hemoglobin A1c 5.9 % (4.2-6.5) 01/15/17 13:39 Calcium 8.4 mg/dL (8.4-10.2) 01/18/17 05:20 Magnesium 1.5 MG/DL (1.6-2.3) L 01/16/17 04:30 RBC Magnesium 4.4 mg/dL (4.0-6.4) 01/16/17 04:30 Iron 48 ug/dL (49-181) L 01/16/17 04:30 TIBC 224 ug/dL (250-450) L 01/16/17 04:30 % Saturation 21 % (20-55) 01/16/17 04:30 Total Bilirubin 0.4 mg/dl (0.2-1.3) 01/15/17 13:03 AST 18 U/L (17-59) 01/15/17 13:03 ALT 25 U/L (21-72) 01/15/17 13:03 Alkaline Phosphatase 59 U/L (38-126) 01/15/17 13:03 Lactate Dehydrogenase 309 U/L (313-618) L 01/16/17 04:30 Total Creatine Kinase 93 U/L (55-170) 01/16/17 04:30 Troponin I < 0.0120 ng/mL (0.00-0.120) 01/15/17 13:03 Total Protein 6.3 G/DL (6.3-8.2) 01/15/17 13:03 Albumin 3.5 g/dL (3.5-5.0) D 01/15/17 13:03 Globulin 2.9 gm/dL (2.2-3.9) 01/15/17 13:03 Albumin/Globulin Ratio 1.2 (1.0-2.1) 01/15/17 13:03 Triglycerides 55 mg/DL (0-149) 01/16/17 04:30 Cholesterol 84 mg/dL (0-199) 01/16/17 04:30 LDL Cholesterol Direct 35 mg/dL (0-129) 01/16/17 04:30 HDL Cholesterol 36 MG/DL (30-70) 01/16/17 04:30 Folate > 20.0 ng/mL 01/16/17 04:30 RBC Folate 661 ng/mL RBC (>280) 01/16/17 04:30 Free T4 1.38 ng/dL (0.78-2.19) 01/16/17 04:30 Total T3 0.682 nmol/L (1.49-2.60) L 01/16/17 04:30 TSH 3rd Generation 0.81 mIU/ML (0.46-4.68) 01/16/17 04:30 Urine Color Yellow (YELLOW) 01/16/17 07:20 Urine Clarity Cloudy (Clear) 01/16/17 07:20 Urine pH 6.0 (5.0-8.0) 01/16/17 07:20 Ur Specific [place] 1.010 (1.003-1.030) 01/16/17 07:20 Urine Protein Negative mg/dL (NEGATIVE) 01/16/17 07:20 Urine Glucose (UA) Neg mg/dL (Normal) 01/16/17 07:20 Urine Ketones Negative mg/dL (NEGATIVE) 01/16/17 07:20 Urine Blood Small (NEGATIVE) 01/16/17 07:20 Urine Nitrate Negative (NEGATIVE) 01/16/17 07:20 Urine Bilirubin Negative (NEGATIVE) 01/16/17 07:20 Urine Urobilinogen 0.2-1.0 mg/dL (0.2-1.0) 01/16/17 07:20 Ur Leukocyte Esterase Large He/uL (Negative) 01/16/17 07:20 Urine RBC (Auto) 11 /hpf (0-3) H 01/16/17 07:20 Urine Microscopic WBC 105 /hpf (0-5) H 01/16/17 07:20 Ur Squamous Epith Cells < 1 /hpf (0-5) 01/16/17 07:20 Urine Bacteria Many (<OCC) H 01/16/17 07:20 Ur Yeast w Hyphae Few /lpf (NEGATIVE) H 01/16/17 07:20 Urine Opiates Screen Positive (NEGATIVE) H 01/17/17 07:12 Urine Methadone Screen Negative (NEGATIVE) 01/17/17 07:12 Ur Barbiturates Screen Negative (NEGATIVE) 01/17/17 07:12 Ur Phencyclidine Scrn Negative (NEGATIVE) 01/17/17 07:12 Ur Amphetamines Screen Negative (NEGATIVE) 01/17/17 07:12 U Benzodiazepines Scrn Positive (NEGATIVE) H 01/17/17 07:12 U Oth Cocaine Metabols Negative (NEGATIVE) 01/17/17 07:12 U Cannabinoids Screen Negative (NEGATIVE) 01/17/17 07:12 Blood Type A POSITIVE 01/15/17 12:43 Antibody Screen Negative 01/15/17 12:43 BBK History Checked Patient has bt 01/15/17 12:43 Discharge Exam - Head Exam Head Exam: NORMAL INSPECTION - Additional Findings Additional findings: Constitutional Appears: No Acute Distress , NC\AT, Fragile - Head Exam Head Exam: ATRAUMATIC, NORMAL INSPECTION - Eye Exam Eye Exam: EOMI, Normal appearance, PERRL - ENT Exam ENT Exam: Normal Exam - Neck Exam Neck exam: Positive for: Normal Inspection. Negative for: Thyromegaly - Respiratory Exam Respiratory Exam: Clear to Auscultation Bilateral, NORMAL BREATHING PATTERN - Cardiovascular Exam Cardiovascular Exam: REGULAR RHYTHM, +S1, +S2, Systolic Murmur - GI/Abdominal Exam GI & Abdominal Exam: Normal Bowel Sounds, Soft. absent: Distended, Organomegaly , Tenderness Back exam: NORMAL INSPECTION, lower back paraspinal tenderness - Neurological Exam Neurological exam: Alert, CN II-XII Intact, Oriented x3 left hand weakness , reflexes-1 + b\L UE\LE, [place]-equivocal unequal legs rt < left - Skin Skin Exam: Intact, pallor, no wounds noted Discharge Plan - Follow Up Plan Condition: STABLE Disposition: TRANSF TO SNF Additional Instructions: patient cleared for d/c to TCU today by , and cont. PT/OT Referrals: Vin Henson MD [Medical Doctor] - Panda Grier MD [Staff Provider] - Luis Desouza MD [Medical Doctor] -
--- NOTE | 2017-01-22 10:58 | PQF CVATIA ---
Dr. Desouza there is conflicting documentation in medical record. Was patient admitted with CVA or TIA? This form is a permanent part of the medical record Clarification of your documentation is requested to better reflect the severity of illness and intensity of treatment of your patient. Indicators present: [] Altered mental status [] Aphasia [] Dysphagia [] Dysphasia [] Facial droop/numbness [] Gait disturbance [] Hemiparesis/plegia [] Speech impairment [X] Weakness [] Neuro Consult [] CT/MRI Findings [] Other: [] Location in the medical record that reflects the above clinical findings: [] Treatment Provided: [] PHYSICIAN'S RESPONSE Based on your medical judgment of the clinical indicators outlined above, are you treating this patient for a known or suspected: [] Acute Cerebrovascular Accident (CVA) Please specify type i.e.; embolic, hemorrhagic, ischemic. Please specify the artery involved if known. [] Transient Ischemic Accident (TIA) [] Prolonged reversible ischemic neurological disorder [] Other, please indicate: [] [] If unable to determine, please check the box, sign and date. Present On Admission (POA) Indicator: [] Present at the time of admission [] Not present at the time of admission [] Clinically Undetermined In responding to this query, please exercise your independent professional judgment. The fact that a question is asked does not imply that any particular answer is desired or expected. Thank you for your clarification on this documentation. If you have any questions please call:[ ] * Thank you, [ ]Loli Solis family assessment worker LUCY
== END 2017-01-19 20:30 | DRG 65 ==
LOC: H.ER 12:27 → H.ERHOLD 14:41 → H.TEL 22:53
PROVIDERS: ADMIT Internal Medicine; ATTEND Internal Medicine
DX: I63.9 Cerebral infarction, unspecified (principal); D61.818 Other pancytopenia; I48.91 Unspecified atrial fibrillation; G62.9 Polyneuropathy, unspecified; J44.9 Chronic obstructive pulmonary disease, unspecified; I10 Essential (primary) hypertension; F17.210 Nicotine dependence, cigarettes, uncomplicated; B37.9 Candidiasis, unspecified; G89.29 Other chronic pain; G83.24 Monoplegia of upper limb affecting left nondominant side; M06.9 Rheumatoid arthritis, unspecified; Z86.718 Personal history of other venous thrombosis and embolism; M21.332 Wrist drop, left wrist; H54.42 Blindness, left eye, normal vision right eye; Z86.11 Personal history of tuberculosis; M19.90 Unspecified osteoarthritis, unspecified site

== ENCOUNTER 2017-01-19 16:34 | Inpatient (IN) | payer OTHER, MEDICAID ==
[2017-01-19 20:44] VITALS: BMI 17.1
[2017-01-19 21:30] VITALS: RESP 20
[2017-01-19] MEDS ORDERED: Lactulose 10 gm/15 ml Syrup PO PRN (21:34)
[2017-01-20] MEDS: Magnesium Oxide 400 mg Tab UD PO SCH ×2 (09:18→17:11)
[2017-01-20] MEDS: Enoxaparin 60 mg Syringe SC SCH ×2 (09:19→20:08)
[2017-01-20] MEDS: oxyCODONE 10 mg ER Tab (oxyCONTIN) PO SCH ×2 (09:37→20:04)
[2017-01-20] MEDS: Fluticasone-Salmeterol 250-50mcg Diskus IH SCH ×2 (09:37→20:04)
[2017-01-21] MEDS: oxyCODONE 10 mg ER Tab (oxyCONTIN) PO SCH ×2 (08:29→20:25)
[2017-01-21] MEDS: Enoxaparin 60 mg Syringe SC SCH ×2 (08:30→20:27)
[2017-01-21] MEDS: Fluticasone-Salmeterol 250-50mcg Diskus IH SCH ×2 (08:30→20:24)
[2017-01-21] MEDS: Magnesium Oxide 400 mg Tab UD PO SCH ×2 (08:31→16:57)
[2017-01-22] MEDS: oxyCODONE 10 mg ER Tab (oxyCONTIN) PO SCH (08:03)
[2017-01-22] MEDS: Fluticasone-Salmeterol 250-50mcg Diskus IH SCH (08:03)
[2017-01-22] MEDS: Enoxaparin 60 mg Syringe SC SCH (08:04)
[2017-01-22] MEDS: Magnesium Oxide 400 mg Tab UD PO SCH (08:04)
[2017-01-22 08:13] VITALS: BP 107/62; PULSE 81; TEMP 97.9; O2SAT 98
--- NOTE | 2017-01-22 23:49 | CP.PCM.HP ---
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 Afib in past [as per old records ] was rx for TB in past , found to be with acute frontoparital CVA with left hand weakness, also she grew yeast in sputum and urine . denies any active complaints , asking for pain meds seen by pain management - Present on Admission - Present on Admission Any Indicators Present on Admission: No Review of Systems - Hematologic/Lymphatic Additional comments: Hematologic/Lymphatic Additional comments: Constitutional: denies Fatigue. absent: Fever, Frequent Falls, Weight Loss, Weakness - EENT Eyes: absent: Blurred Vision, Other Visual Disturbances Nose/Mouth/Throat: absent: Nasal Discharge, Dysphagia, Hoarsness - Cardiovascular Cardiovascular: no Dyspnea on Exertion. absent: Chest Pain, Edema, Palpitations, Pedal Edema, Syncope - Respiratory Respiratory: no Cough. absent: Wheezing, Chest Congestion, Excessive Mucous Production - Gastrointestinal Gastrointestinal: denies Belching, Bloating, Dyspepsia. absent: Change in Stool Character, Constipation, Melena, Nausea, Vomiting - Genitourinary Genitourinary: denies Voiding Freq/Small Amts. absent: Change in Urinary Stream - Musculoskeletal Musculoskeletal: Arthralgias, Back Pain - Neurological Neurological: absent: Behavioral Changes, Convulsions. has have Paresthesias . denies Vertigo - Psychiatric Psychiatric: absent: Confusion, has Irritability Past Patient History - Infectious Disease Hx of Infectious Diseases: None - Tetanus Immunizations Tetanus Immunization: Unknown - Past Medical History & Family History Past Medical History?: Yes - Past Social History Smoking Status: Former Smoker - CARDIAC Hx Cardiac Disorders: Yes - PULMONARY Hx Respiratory Disorders: Yes Hx Chronic Obstructive Pulmonary Disease (COPD): Yes Hx Pneumonia: Yes Hx Tuberculosis: Yes (atypical pulmonary tb) - NEUROLOGICAL Hx Neurological Disorder: No - HEENT Hx HEENT Problems: Yes Other/Comment: Glasses - RENAL Hx Chronic Kidney Disease: No - ENDOCRINE/METABOLIC Hx Endocrine Disorders: No - HEMATOLOGICAL/ONCOLOGICAL Hx Blood Disorders: No Hx AIDS: No Hx Human Immunodeficiency Virus (HIV): No - INTEGUMENTARY Hx Dermatological Problems: No - MUSCULOSKELETAL/RHEUMATOLOGICAL Hx Musculoskeletal Disorders: Yes Hx Back Pain: Yes Hx Falls: Yes Hx Fractures: Yes Hx Rheumatoid Arthritis: Yes - GASTROINTESTINAL Hx Gastrointestinal Disorders: Yes Hx Ulcer: Yes - GENITOURINARY/GYNECOLOGICAL Hx Genitourinary Disorders: No - PSYCHIATRIC Hx Psychophysiologic Disorder: No Hx Substance Use: No - SURGICAL HISTORY Hx Surgeries: Yes Hx Cholecystectomy: Yes - ANESTHESIA Hx Anesthesia: Yes Hx Anesthesia Reactions: No Hx Malignant Hyperthermia: No Meds Allergies/Adverse Reactions: Allergies Allergy/AdvReac Type Severity Reaction Status Date / Time No Known Allergies Allergy Verified 01/15/17 12:31 Physical Exam - Additional Findings Additional findings: Constitutional Appears: No Acute Distress , NC\AT, Fragile - Head Exam Head Exam: ATRAUMATIC, NORMAL INSPECTION - Eye Exam Eye Exam: EOMI, Normal appearance, PERRL - ENT Exam ENT Exam: Normal Exam - Neck Exam Neck exam: Positive for: Normal Inspection. Negative for: Thyromegaly - Respiratory Exam Respiratory Exam: Clear to Auscultation Bilateral, NORMAL BREATHING PATTERN - Cardiovascular Exam Cardiovascular Exam: REGULAR RHYTHM, +S1, +S2, Systolic Murmur - GI/Abdominal Exam GI & Abdominal Exam: Normal Bowel Sounds, Soft. absent: Distended, Organomegaly , Tenderness Back exam: NORMAL INSPECTION, lower back paraspinal tenderness - Neurological Exam Neurological exam: Alert, CN II-XII Intact, Oriented x3 left hand weakness , reflexes-1 + b\L UE\LE, [place]-equivocal unequal legs rt < left - Skin Skin Exam: Intact, pallor, no wounds noted Results - Vital Signs Recent Vital Signs: Last Vital Signs Temp 97.9 F 01/22/17 08:11 Pulse 81 01/22/17 08:11 Resp 20 01/22/17 08:11 BP 107/62 01/22/17 08:11 Pulse Ox 98 01/22/17 08:11 Assessment & Plan (1) CVA (cerebral vascular accident) Status: Acute (2) Urinary tract infection Status: Acute (3) COPD (chronic obstructive pulmonary disease) Status: Chronic Priority: Medium (4) Cavitary lesion of lung Status: Chronic Priority: High (5) Chronic pain disorder Status: Chronic Priority: High (6) Tobacco abuse Status: Chronic Priority: High (7) Afib Status: Suspected Comment: d\w patient in detail. continue meds. labs to f\u Decision To Admit - Pt Status Changed To: Hospital Disposition Of: Inpatient - Admit Certification Admit to Inpatient:: After my assessment, the patient will require hospitalization for at least two midnights. This is because of the severity of symptoms shown, intensity of services needed, and/or the medical risk in this patient being treated as an outpatient. - . Bed Request Type: Transitional Care Unit Admitting Physician: Luis Desouza
--- NOTE | 2017-01-24 18:38 | CP.PCM.DIS ---
Provider - Provider Date of Admission: 01/19/17 21:19 Attending physician: Luis Desouza MD Time Spent in preparation of Discharge (in minutes): 10 Diagnosis - Discharge Diagnosis (1) CVA (cerebral vascular accident) Status: Acute (2) Urinary tract infection Status: Acute (3) COPD (chronic obstructive pulmonary disease) Status: Chronic Priority: Medium (4) Cavitary lesion of lung Status: Chronic Priority: High (5) Chronic pain disorder Status: Chronic Priority: High (6) Tobacco abuse Status: Chronic Priority: High (7) Afib Status: Suspected Hospital Course - Hospital Course Hospital Course: pateint signed out AMA refusing care diflucan, etc rx and rehab he wants to f\u as PMD spoke to him over phone Discharge Plan - Follow Up Plan Condition: GOOD Disposition: AGAINST MEDICAL ADVICE
== END 2017-01-22 11:40 | disposition left against medical advice (07) | DRG 57 ==
LOC: H.TCU 21:19
PROVIDERS: ADMIT Internal Medicine; ATTEND Internal Medicine
PROC: F08Z4FZ Home Management Treatment using Assistive, Adaptive, Supportive or Protective Equipment (ICD-10-PCS; principal; 2017-01-19)
DX: I69.30 Unspecified sequelae of cerebral infarction (principal); J44.9 Chronic obstructive pulmonary disease, unspecified; N39.0 Urinary tract infection, site not specified; G89.29 Other chronic pain; Z86.11 Personal history of tuberculosis; R53.1 Weakness; Z72.0 Tobacco use

== ENCOUNTER 2017-05-18 20:32 | Emergency (ER) | payer MEDICAID, MEDICARE ==
[2017-05-18 20:32] VITALS: BMI 17.1
[2017-05-18] MEDS ORDERED: Naloxone 0.4 mg/ml Inj (Adult) IVP STA (21:08)
[2017-05-18 21:34] VITALS: BP 117/66; RESP 16; TEMP 98; O2SAT 92
[2017-05-18 21:36] LABS: BASO % 0.1 % (0.0-2.0); EOS % 1.6 % (0.0-4.0); HEMOGLOBIN 11.9 g/dL (12.0-18.0); LYMPH # 0.6 K/uL (1.0-4.3); LYMPH % 23.1 % (20.0-40.0); MEAN CELL VOLUME 96.9 fl (80.0-94.0); MEAN CORPUSCULAR HEMOGLOBIN 32.5 pg (27.0-31.0); MEAN CORPUSCULAR HGB CONC 33.5 g/dL (33.0-37.0); MEAN PLATELET VOLUME 7.1 fl (7.2-11.7); MONO # 0.3 K/uL (0.0-0.8); MONO % 9.9 % (0.0-10.0); NEUT # 1.8 K/uL (1.8-7.0); NEUT % 65.3 % (50.0-75.0); NRBC % 0.2 % (0.0-0.0); RBC 3.67 Mil/uL (4.40-5.90); WHITE BLOOD COUNT 2.8 K/uL (4.8-10.8)
[2017-05-18] MEDS ORDERED: Albuterol-Ipratrop 3 mg / 0.5 (3 ml) UD INH STA (21:49)
[2017-05-18 21:50] LABS: ALBUMIN 3.4 g/dL (3.5-5.0); ALT/SGPT 48 U/L (21-72); AST/SGOT 22 U/L (17-59); BLOOD UREA NITROGEN 31 mg/dl (9-20); CALCIUM 8.6 mg/dL (8.4-10.2); GFR AFRICAN-AMERICAN > 60; GFR NON-AFRICAN AMERICAN > 60
--- NOTE | 2017-05-18 22:11 | ED PDOC ---
HPI: General Adult Time Seen by Provider: 05/18/17 20:51 Chief Complaint (Nursing): Lower Extremity Problem/Injury History Per: Patient, EMS Additional Complaint(s): As per RN who spoke with EMS, pt.'s friend called 911 as he had fallen down. Pt. states he lives by himself and he does not know who contacted 911. States he was walking to the bathroom when he fell down and injured his L knee. Further states he took 2 tabs of his oxycodone and 1 tab of valium 10mg today which he takes every day for pain. Also states he did not take his COPD meds today. Denies head injury, LOC, hip pain, chest pain, SOB. Past Medical History Reviewed: Historical Data, Nursing Documentation, Vital Signs Vital Signs: Last Vital Signs Temp 98 F 05/18/17 21:34 Pulse 77 05/19/17 03:34 Resp 16 05/18/17 21:34 BP 117/66 05/18/17 21:34 Pulse Ox 92 L 05/19/17 03:34 - Medical History PMH: Arthritis, Atrial Fibrillation, Back Problems, COPD, Deep Vein Thrombosis, Fractures, HTN, Pneumonia, Rheumatoid Arthritis Denies: HIV, Chronic Kidney Disease - Surgical History Surgical History: Back Surgery, Cholecystectomy - Family History Family History: States: Unknown Family Hx - Home Medications Home Medications: Ambulatory Orders Medication Instructions Recorded Tamsulosin HCl [Flomax] 0.4 mg PO DAILY #6 cap 10/08/14 diaZEpam [Valium] 10 mg PO HS 10/22/14 Finasteride [Proscar] 5 mg PO DAILY 08/29/15 Oxycodone HCl [Roxicodone] 30 mg PO Q6 PRN 08/29/15 Fluticasone/Salmeterol 250/50 1 puff PO BID 06/18/16 [Advair Diskus 250/50] Midodrine [Proamatine] 5 mg PO BID 01/15/17 Naloxegol Oxalate [Movantik] 25 mg PO DAILY 01/15/17 - Allergies Allergies/Adverse Reactions: Allergies Allergy/AdvReac Type Severity Reaction Status Date / Time No Known Allergies Allergy Verified 01/15/17 12:31 Review of Systems ROS Statement: Except As Marked, All Systems Reviewed And Found Negative Physical Exam - Reviewed Nursing Documentation Reviewed: Yes Vital Signs Reviewed: Yes - Physical Exam Appears: Positive for: Well, Non-toxic, No Acute Distress Head Exam: Positive for: ATRAUMATIC, NORMAL INSPECTION, NORMOCEPHALIC Skin: Positive for: Normal Color, Warm. Negative for: Rash Eye Exam: Positive for: Normal appearance, EOMI, Other (b/l pupils pinpoint) ENT: Positive for: Normal ENT Inspection Neck: Positive for: Normal, Painless ROM Cardiovascular/Chest: Positive for: Regular Rate, Rhythm Respiratory: Positive for: Normal Breath Sounds. Negative for: Decreased Breath Sounds, Accessory Muscle Use, Wheezing, Respiratory Distress Gastrointestinal/Abdominal: Positive for: Normal Exam, Bowel Sounds, Soft. Negative for: Tenderness Back: Positive for: Normal Inspection Extremity: Positive for: Normal ROM Neurologic/Psych: Positive for: Alert, Oriented (x2), Other (pt. answering questions appropriately but appears very somnolent). Negative for: Aphasia, Facial Droop - Laboratory Results Result Diagrams: 05/18/17 22:31 05/18/17 21:31 - ECG ECG: Positive for: Interpreted By Me ECG Rhythm: Positive for: Sinus Rhythm. Negative for: ST/T Changes Rate: 77 O2 Sat by Pulse Oximetry: 92 - Radiology X-Ray: Interpreted by Me (CXR, L hip x-ray) X-Ray Interpretation: No Acute Disease - Progress ED Course And Treament: Pt. evaluated by Dr. Garibay. Narcan IVP ordered. Labs ordered, CT head and c-spine w/o contrast, L knee x-ray ordered. 2215 Pt. is more awake. DuoNeb x 2 ordered but pt. refused. 0000 Sleeping comfortably. 0145 Requesting to be dc'd. Pt. with slow, unassisted, and steady gait. States he normally uses a walker which is at home. Disposition - Clinical Impression Clinical Impression: Fall, Drug abuse, opioid type - Patient ED Disposition Is Patient to be Admitted: No - Disposition Disposition: Routine/Home Disposition Time: 01:45 Condition: STABLE Instructions: Fall Prevention for Older Adults (ED), Polysubstance Abuse (ED) Forms: [employer] (Surinamese) Print Language: DIVEHI
[2017-05-18 22:16] VITALS: PULSE 77
--- NOTE | 2017-05-18 23:38 | CT ---
EXAM: CT Head Without Intravenous Contrast CLINICAL HISTORY: 72 years old, male; Injury or trauma; Fall; Initial encounter; Concussion / head injury TECHNIQUE: Axial computed tomography images of the head/brain without intravenous contrast. All CT scans at this facility use one or more dose reduction techniques, viz.: automated exposure control; ma/kV adjustment per patient size (including targeted exams where dose is matched to indication; i.e. head); or iterative reconstruction technique. Coronal and sagittal reformatted images were created and reviewed. COMPARISON: CT - HEAD W/O CONTRAST 2017-01-15 13:23 FINDINGS: Brain: Moderate atrophy. No intracranial hemorrhage. No mass. Several scattered foci of decreased attenuation within periventricular/subcortical white matter. No edema. Ventricles: No hydrocephalus. Bones/joints: No acute fracture. Soft tissues: Unremarkable. Vasculature: Mild atherosclerotic disease of intracranial arteries. Sinuses: Scattered minimal mucosal thickening of ethmoid sinuses. Mastoid air cells: No mastoid effusion. Orbits: Unremarkable as visualized. IMPRESSION: 1. No intracranial hemorrhage. 2. Nonspecific white matter changes. 3. Incidental/non-acute findings are described above.
--- NOTE | 2017-05-18 23:43 | CT ---
EXAM: CT Cervical Spine Without Intravenous Contrast CLINICAL HISTORY: 72 years old, male; Injury or trauma; Fall; Initial encounter; Concussion /head injury TECHNIQUE: Axial computed tomography images of the cervical spine without intravenous contrast. All CT scans at this facility use one or more dose reduction techniques, viz.: automated exposure control; ma/kV adjustment per patient size (including targeted exams where dose is matched to indication; i.e. head); or iterative reconstruction technique. Coronal and sagittal reformatted images were created and reviewed. COMPARISON: No relevant prior studies available. FINDINGS: Vertebrae: No acute fracture. Incomplete closure of C1 ring, normal variant. Discs/spinal canal/neural foramina: Disc herniation within mid cervical spine, suboptimally evaluated. Mild indentation thecal sac/cord mid cervical spine. Soft tissues: Unremarkable. Lung apices: Emphysematous changes. Apical scarring. Cavitary lesion with adjacent spiculated opacity within right lung apex, incompletely imaged. IMPRESSION: 1. No fracture. 2. Right upper lobe cavitary lesion/spiculated opacity. Compare with prior examinations. 3. Incidental/non-acute findings are described above.
--- NOTE | 2017-05-19 02:10 | RAD ---
EXAM: XR Left Hip With Pelvis When Performed, 1 View CLINICAL HISTORY: 72 years old, male; Injury or trauma; Fall; Initial encounter; Blunt trauma (contusions or hematomas); Left; Hip TECHNIQUE: Frontal view of the left hip, with pelvis when performed. COMPARISON: No relevant prior studies available. FINDINGS: Limitations: Osteopenia, limiting evaluation for fracture. Suboptimal evaluation of left femoral neck due to external rotation of hip. Bones/joints: No displaced fracture. Chronic deformity right proximal femur with gamma nail fixation. No dislocation. Soft tissues: Vascular calcifications. Gastrointestinal tract: Surgical clips/bowel sutures projected over abdomen. IMPRESSION: 1. No displaced fracture. 2. If hip pain persists, consider MRI to exclude occult fracture/internal derangement. 3. Incidental/non-acute findings are described above.
--- NOTE | 2017-05-19 09:23 | RAD ---
HISTORY: fall COMPARISON: Chest radiograph 01/15/2017. FINDINGS: LUNGS: COPD pattern is appreciated with gross fibrotic changes in the right apex again evident. No acute infiltrate or pneumothorax identified bilaterally. No pleural effusion either. PLEURA: As above. CARDIOVASCULAR: Potential pulmonary arterial hypertension based on attenuation of peripheral pulmonary arterial pattern. OSSEOUS STRUCTURES: No significant abnormalities. VISUALIZED UPPER ABDOMEN: Normal. OTHER FINDINGS: None. IMPRESSION: COPD reiterated. No acute infiltrate pleural effusion or pneumothorax. Probable pulmonary arterial hypertension.
--- NOTE | 2017-05-19 09:37 | RAD ---
PROCEDURE: Left Knee Radiographs. HISTORY: Pain. COMPARISON: None. FINDINGS: BONES: No fracture or destructive bony lesion appreciable. Diffuse osteopenia suggests osteoporosis. JOINTS: There is gross joint space narrowing identified at all 3 compartments with articular cortical sclerosis and limited osteophytosis compatible with late stage osteoarthritis. There is a varus deformity of the joint as well. JOINT EFFUSION: A mild suprapatellar bursa effusion is evident. OTHER FINDINGS: Vascular calcifications seen the posterior thigh soft tissues distally. IMPRESSION: Late stage osteoarthritis. No acute fracture dislocation. Diffuse osteopenia suggests osteoporosis.
--- NOTE | 2017-05-19 19:31 | CARD ---
APPROVED REPORT EKG Measurement Heart [id number] <Conclusion> Sinus rhythm Low voltage QRS Abnormal ECG
== END 2017-05-19 05:52 | disposition home or self-care (01) ==
LOC: H.ER 20:32
DX: S89.92XA Unspecified injury of left lower leg, initial encounter (principal); S09.90XA Unspecified injury of head, initial encounter; M25.552 Pain in left hip; W19.XXXA Unspecified fall, initial encounter; Y92.89 Other specified places as the place of occurrence of the external cause; F11.10 Opioid abuse, uncomplicated; J44.9 Chronic obstructive pulmonary disease, unspecified; I10 Essential (primary) hypertension; I48.91 Unspecified atrial fibrillation; M06.9 Rheumatoid arthritis, unspecified; Z86.718 Personal history of other venous thrombosis and embolism
CPT/HCPCS: 70450; 71045; 72125; 73501; 73562; 80053; 80320; 84484; 85025; 93005; 94640; 96374; 99283; J2310

== ENCOUNTER 2017-07-07 14:37 | Inpatient (IN) | payer MEDICARE, MEDICAID ==
[2017-07-07] MEDS ORDERED: Sodium Chloride 0.9% 1,000 ML IV STA ×2 (15:27→23:17)
--- NOTE | 2017-07-07 15:43 | ED PDOC ---
HPI: Abdomen Time Seen by Provider: 07/07/17 15:10 Chief Complaint (Nursing): Abdominal Pain Chief Complaint (Provider): Abdominal Pain History Per: Patient History/Exam Limitations: no limitations Onset/Duration Of Symptoms: Hrs (x2) Outside of [place] travel?: No Current Symptoms Are (Timing): Still Present Severity: None Quality Of Discomfort: "Pain" Associated Symptoms: Vomiting (x1 episode). denies: Fever, Chills, Nausea, Diarrhea Exacerbating Factors: None Alleviating Factors: None Additional Complaint(s): 72 year old male with a past medical history of atrial fibrillation, hypertension and deep vein thrombosis present to the emergency department complaining of abdominal pain which began x2 hours prior to arrival. The patient reports that he was sitting at home watching television when he felt a sudden onset of abdominal pain. He states that the pain is non radiating and localized to the upper abdomen. Patient reports that he has not eaten all day and he had one episode of vomiting. Denies diarrhea, fever, chills. PMD: Aidee Leach Past Medical History Reviewed: Historical Data, Nursing Documentation, Vital Signs Vital Signs: Last Vital Signs Temp 97 F L 07/07/17 14:40 Pulse 84 07/07/17 14:40 Resp 18 07/07/17 14:40 BP 136/91 H 07/07/17 14:40 Pulse Ox 97 07/07/17 15:53 - Medical History PMH: Arthritis, Atrial Fibrillation, Back Problems, COPD, Deep Vein Thrombosis, Fractures, HTN, Pneumonia, Rheumatoid Arthritis Denies: HIV, Chronic Kidney Disease - Surgical History Surgical History: Back Surgery, Cholecystectomy Other surgeries: bilateral hip surgery - Family History Family History: States: Unknown Family Hx - Home Medications Home Medications: Ambulatory Orders Medication Instructions Recorded Tamsulosin HCl [Flomax] 0.4 mg PO DAILY #6 cap 10/08/14 diaZEpam [Valium] 10 mg PO HS 10/22/14 Finasteride [Proscar] 5 mg PO DAILY 08/29/15 Oxycodone HCl [Roxicodone] 30 mg PO Q6 PRN 08/29/15 Fluticasone/Salmeterol 250/50 1 puff PO BID 06/18/16 [Advair Diskus 250/50] Midodrine [Proamatine] 5 mg PO BID 01/15/17 Naloxegol Oxalate [Movantik] 25 mg PO DAILY 01/15/17 Sod Phos,M-B/Na Phos,Di-Ba [Fleet 133 ml RC QOTHERDAY #3 enema 07/07/17 Enema] - Allergies Allergies/Adverse Reactions: Allergies Allergy/AdvReac Type Severity Reaction Status Date / Time No Known Allergies Allergy Verified 07/07/17 14:40 Review of Systems ROS Statement: Except As Marked, All Systems Reviewed And Found Negative Constitutional: Negative for: Fever, Chills Gastrointestinal: Positive for: Vomiting (x1 episode ), Abdominal Pain (upper abdomen). Negative for: Nausea, Diarrhea Physical Exam - Reviewed Nursing Documentation Reviewed: Yes Vital Signs Reviewed: Yes - Physical Exam Appears: Positive for: Non-toxic, No Acute Distress Head Exam: Positive for: ATRAUMATIC, NORMAL INSPECTION, NORMOCEPHALIC Skin: Positive for: Normal Color, Warm, Dry. Negative for: Rash Eye Exam: Positive for: Normal appearance, EOMI, PERRL. Negative for: Nystagmus ENT: Positive for: Normal ENT Inspection. Negative for: Nasal Congestion, Tonsillar Exudate, Tonsillar Swelling Neck: Positive for: Normal, Painless ROM, Supple Cardiovascular/Chest: Positive for: Regular Rate, Rhythm, Chest Non Tender. Negative for: Murmur, Tachycardia Respiratory: Positive for: Normal Breath Sounds. Negative for: Rales, Rhonchi, Wheezing, Respiratory Distress Gastrointestinal/Abdominal: Positive for: Bowel Sounds, Soft, Tenderness ( Tenderness to the mid upper abdomen, left upper and lower quadrants and epigastric.). Negative for: Mass, Guarding, Rebound Back: Positive for: Normal Inspection. Negative for: L CVA Tenderness, R CVA Tenderness, Vertebral Tenderness Extremity: Positive for: Normal ROM. Negative for: Tenderness, Deformity, Swelling Neurologic/Psych: Positive for: Alert, Oriented, Gait - Laboratory Results Result Diagrams: 07/07/17 15:57 07/07/17 15:57 - ECG O2 Sat by Pulse Oximetry: 97 (RA) Pulse Ox Interpretation: Normal - Radiology X-Ray: Viewed By La X-Ray Interpretation: Other (copious stool and gas) - Progress Re-evaluation Time: 17:10 Condition: Improved Medical Decision Making Medical Decision Makin Initial Impression 72 year old male presenting with abdominal pain an vomiting Initial Plan: * EKG * CMP * Lipase * Udip * CBC * Obstructive Series * NS 1000 ml IV 150 mls/hr * Toradol 30mg IVP * Zofran 4mg IVP * Reevaluation 1539 EKG performed shows normal sinus rhythm at 71 bpm. __ Documented by Dior Grajeda acting as a scribe for Adore Dumont MD. All medical record entries made by the Scribe were at my direction and personally dictated by me. I have reviewed the chart and agree that the record accurately reflects my personal performance of the history, physical exam, medical decision making, and the department course for this patient. I have also personally directed, reviewed, and agree with the discharge instructions and disposition. Disposition - Clinical Impression Clinical Impression: Constipation - Patient ED Disposition Is Patient to be Admitted: No Doctor Will See Patient In The: Office Counseled Patient/Family Regarding: Diagnosis, Need For Followup, Rx Given - Disposition Referrals: [facility] [Outside] [facility] [Outside] Disposition: Routine/Home Disposition Time: 17:15 Condition: IMPROVED Prescriptions: Sod Phos,M-B/Na Phos,Di-Ba [Fleet Enema] 133 ml RC QOTHERDAY #3 enema Instructions: Constipation in Adults, High Fiber Diet Forms: [employer] (Ukrainian) - POA Present On Arrival: None
[2017-07-07 16:02] LABS: BASO % 0.9 % (0.0-2.0); EOS # 0.3 K/uL (0.0-0.7); EOS % 5.6 % (0.0-4.0); HEMOGLOBIN 14.3 g/dL (12.0-18.0); LYMPH % 21.3 % (20.0-40.0); MEAN CORPUSCULAR HEMOGLOBIN 33.5 pg (27.0-31.0); MEAN CORPUSCULAR HGB CONC 35.3 g/dL (33.0-37.0); MEAN PLATELET VOLUME 6.6 fl (7.2-11.7); MONO # 0.2 K/uL (0.0-0.8); MONO % 3.6 % (0.0-10.0); NEUT # 3.3 K/uL (1.8-7.0); NEUT % 68.6 % (50.0-75.0); NRBC % 0.2 % (0.0-0.0); RBC 4.26 Mil/uL (4.40-5.90); RED CELL DISTRIBUTION WIDTH 16.6 % (11.5-14.5)
[2017-07-07 16:12] LABS: ALB/GLOB RATIO 0.7 (1.0-2.1); ALBUMIN 2.5 g/dL (3.5-5.0); ALT/SGPT 33 U/L (21-72); AST/SGOT 19 U/L (17-59); BLOOD UREA NITROGEN 22 mg/dl (9-20); CALCIUM 7.7 mg/dL (8.4-10.2); GFR AFRICAN-AMERICAN > 60; GFR NON-AFRICAN AMERICAN > 60
[2017-07-07 16:14] LABS: WHITE BLOOD COUNT 4.8 K/uL (4.8-10.8)
[2017-07-07 16:23] LABS: LIPASE < 10 U/L (23-300)
[2017-07-07] MEDS ORDERED: Morphine 4 MG/ML VIAL IV STA (18:27)
[2017-07-07] MEDS ORDERED: Iohexol 240 (50 ml) PO ONE (18:27)
[2017-07-07] MEDS ORDERED: Sodium Chloride 0.9% 100 ML ONE (21:04)
[2017-07-07] MEDS ORDERED: Iohexol 300 100 ML IJ ONE (21:04)
--- NOTE | 2017-07-07 22:36 | CT ---
EXAM: CT Abdomen and Pelvis With Intravenous Contrast EXAM DATE/TIME: 07/07/2017 6:27 PM CLINICAL HISTORY: 72 years old, male; Pain; Abdominal pain; Generalized; Additional info: Persistent lower abdominal pain TECHNIQUE: Axial computed tomography images of the abdomen and pelvis with intravenous contrast. All CT scans at this facility use one or more dose reduction techniques, viz.: automated exposure control; ma/kV adjustment per patient size (including targeted exams where dose is matched to indication; i.e. head); or iterative reconstruction technique. Coronal and sagittal reformatted images were created and reviewed. CONTRAST: 95 mL of OMNIPAQUE-300 95 ML administered intravenously. COMPARISON: CT - CHEST,ABD,PEL W/IV PO CONTRAST 2014-10-18 11:29 FINDINGS: Lower thorax: Heart size is normal. There is a hiatal hernia. There are surgical clips about the distal esophagus. Lung bases are hyperinflated. There is scarring at the lung bases greatest on the left. There is nodular scarring at the right base. There is a left pleural effusion. There is minimal airspace disease at the left base. ABDOMEN: Liver: There is fatty infiltration of the liver. Gallbladder and bile ducts: Gallbladder is absent. There is pneumobilia. Common duct is dilated. Pancreas: Pancreas is atrophic with coarse calcifications. Spleen: There is a cleft in the spleen. There is a defect in the lower pole of the spleen difficult to further characterize. There is streak artifact from a clip in the left upper quadrant. Adrenals: unremarkable Kidneys and ureters: There are multiple bilateral renal cysts. There are additional low attenuation renal lesions too small to accurately characterize.There is no pelvocaliectasis or ureterectasis. Stomach and bowel: There are postsurgical changes of partial gastrectomy. There is an contrast, fluid, air level in the residual stomach. There is a gastrojejunostomy. There are thickened small bowel loops in the left upper quadrant. There is irregular air collection in the left upper quadrant possibly site of perforation, images 56-62, series 3. Small bowel is partially distended with fluid and air. There is small bowel wall thickening. There is an enteral anastomosis in the left lower quadrant. Terminal ileum is not well-demonstrated. There is a small amount of air in the normal caliber appendix. There is a moderately large amount of stool in the proximal colon. Appendix: See stomach and bowel PELVIS: Bladder: Bladder is partially distended. Reproductive: Streak from the prostheses limits evaluation of the seminal vesicles and prostate. Prostate appears enlarged. ABDOMEN and PELVIS: Intraperitoneal space: There is dense ascites in the abdomen and pelvis. There is a large amount of free air. Bones/joints: There are bilateral hip prostheses was artifact. The bony structures are osteopenic. Degenerative changes. There is partial ankylosis of the right sacroiliac joint. There is compression fracture of L1, new since the prior study. Soft tissues: There are multiple clips in the upper abdomen. Vasculature: There is an IVC filter. There are atherosclerotic calcifications in the aorta and iliacs. Lymph nodes: unremarkable IMPRESSION: Free air in the upper abdomen, dense fluid which may represent extravasated contrast; postsurgical changes in the upper abdomen with probable partial gastrectomy and gastrojejunal anastomosis; enteral anastomosis in the left lower quadrant; pneumobilia and dilated common duct status post cholecystectomy; chronic calcific pancreatitis; renal cysts; the probable enteritis Findings were discussed with Dr. Garibay at 10:30 PM EST on 07/07/2017.
--- NOTE | 2017-07-07 22:42 | RAD ---
EXAM: XR Abdomen 2 Views With XR Chest EXAM DATE/TIME: 07/07/2017 3:26 PM CLINICAL HISTORY: 72 years old, male; Signs and symptoms; Other: Abdomin pain; Additional info: Acute onset mid abd pain with l sided tenderness TECHNIQUE: Frontal view of the chest, frontal view of the abdomen/pelvis and upright or decubitus view of the abdomen. COMPARISON: Prior chest images are not available for review. Correlation is made with CT abdomen pelvis request 02/14 FINDINGS: Chest: Heart: Heart size is normal Mediastinum and luis m: Mediastinal and hilar contours are unremarkable. There are multiple clips in the lower mediastinum. Vascularity: Vascularity is normal. Lungs: The lungs are hyperinflated. There is scarring at the right apex. Pleura: There are no effusions. Peritoneal space: There is free air in the upper abdomen. Vascular: There is an IVC filter. There are vascular calcifications. Bowel: There is a large amount of stool in the colon. There are mildly distended small bowel loops in the upper abdomen. Soft tissues: There are no abnormal soft tissue masses. There are coarse calcifications in the upper abdomen. calcifications. There are multiple clips in both upper quadrants of the abdomen. There clips in the right lower quadrant. Bony structures: Bony structures are osteopenic. There is a left hip prosthesis. This compression nail and screws in the right hip. There is remote post traumatic deformity of the right hip. IMPRESSION: Right apical scarring, no focal pneumonia; postsurgical changes with clips in lower mediastinum upper abdomen and left lower quadrant; constipation with possible ileus; free air; IVC filter Additional nonemergent findings as described above.
[2017-07-07] MEDS ORDERED: Piperacillin/Tazobact 3.375 GM in Sodium Chloride 0.9% 100 ML IVPB STA (23:04)
[2017-07-07] MEDS ORDERED: metroNIDAZOLE 500mg/100ml NS 100 ML IVPB STA (23:17)
[2017-07-07 23:30] LABS: ABG ALLEN TEST YES; ARTERIAL BLOOD GAS HCO3 23.8 mmol/L (21-28); ARTERIAL BLOOD GAS O2 SAT 96.2 % (95-98); ARTERIAL BLOOD GAS PCO2 28 mm/Hg (35-45); ARTERIAL BLOOD GAS PH 7.48 (7.35-7.45); ARTERIAL BLOOD GAS PO2 69 mm/Hg (80-100); ARTERIAL BLOOD GAS TCO2 21.8 mmol/L (22-28)
--- NOTE | 2017-07-07 23:38 | CP.PCM.CON ---
History of Present Illness - History of Present Illness History of Present Illness: CC: Abd pain HPI: This is a 72 y/o male with MHx of HTN, COPD, A fib and DVT in past (not on anti-coag for either), and chronic back/hip pain due to multiple surgeries. 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 Patient states he was sitting in home watching TV when he felt the pain initially. It was no radiated, and was limited to the upper part of abdomen. Patient had not eaten much today. He had had one BM sometime prior to onset of pain, which was normal stool. Had an episode of vomiting. BM and vomit was non bloody. Patient denies f /c. Denies any other recent GI symptoms. MHx: HTN, A fib, COPD, prior DVT, and ? of some type of arthritis SHx: Multiple hip surgeries, back surgery, cholecystectomy Allergies: NKDA Medications: Per med rec Family Hx: Patient unable to provide Social Hx: Lives alone, prior extensive history of smoking, no current smoking, no EtOH Past Patient History - Infectious Disease Hx of Infectious Diseases: None - Tetanus Immunizations Tetanus Immunization: Unknown - Past Medical History & Family History Past Medical History?: Yes - Past Social History Smoking Status: Former Smoker - CARDIAC Hx Atrial Fibrillation: Yes Hx Hypertension: Yes - PULMONARY Hx Chronic Obstructive Pulmonary Disease (COPD): Yes Hx Pneumonia: Yes - NEUROLOGICAL Hx Neurological Disorder: No - HEENT Hx HEENT Problems: Yes Other/Comment: Glasses - RENAL Hx Chronic Kidney Disease: No - ENDOCRINE/METABOLIC Hx Endocrine Disorders: No - HEMATOLOGICAL/ONCOLOGICAL Hx Human Immunodeficiency Virus (HIV): No - INTEGUMENTARY Hx Dermatological Problems: No - MUSCULOSKELETAL/RHEUMATOLOGICAL Hx Arthritis: Yes Hx Fractures: Yes Hx Rheumatoid Arthritis: Yes - GASTROINTESTINAL Hx Gastrointestinal Disorders: Yes Hx Ulcer: Yes - GENITOURINARY/GYNECOLOGICAL Hx Genitourinary Disorders: No - PSYCHIATRIC Hx Psychophysiologic Disorder: No Hx Substance Use: No - SURGICAL HISTORY Hx Cholecystectomy: Yes - ANESTHESIA Hx Anesthesia: Yes Hx Anesthesia Reactions: No Hx Malignant Hyperthermia: No Meds Allergies/Adverse Reactions: Allergies Allergy/AdvReac Type Severity Reaction Status Date / Time No Known Allergies Allergy Verified 07/07/17 14:40 - Medications Medications: Current Medications Piperacillin Sod/Tazobactam (Sod 3.375 gm/ Sodium Chloride) 100 mls @ 100 mls/ hr IVPB STAT STA PRN Reason: Protocol Stop: 07/08/17 00:03 Metronidazole (Flagyl 500mg/100ml Ns) 100 mls @ 100 mls/hr IVPB STAT STA PRN Reason: Protocol Stop: 07/08/17 00:16 Sodium Chloride (Sodium Chloride 0.9%) 1,000 mls @ 1,000 mls/hr IV .Q1H STA Stop: 07/08/17 00:16 Last Admin: 07/07/17 23:20 Dose: 1,000 mls/hr Metronidazole (Flagyl 500mg/100ml Ns) 100 mls @ 100 mls/hr IVPB Q8 CHARMAINE PRN Reason: Protocol Piperacillin Sod/Tazobactam (Sod 3.375 gm/ Sodium Chloride) 100 mls @ 100 mls/ hr IVPB Q6 CHARMAINE PRN Reason: Protocol Lactated Ringer's (Lactated Ringer's) 1,000 mls @ 150 mls/hr IV .Q6H40M [facility] Stop: 07/08/17 13:04 Morphine Sulfate (Morphine) 2 mg IVP Q4H PRN PRN Reason: Pain, moderate (4-7) Morphine Sulfate (Morphine) 1 mg IVP Q4H PRN PRN Reason: Pain, Mild (1-3) Ondansetron HCl (Zofran Inj) 4 mg IVP Q6H PRN PRN Reason: Nausea/Vomiting Fluticasone/Salmeterol (Advair Diskus 250/50) 1 puff INH BID CHARMAINE Physical Exam - Constitutional Appears: Cachectic - Head Exam Head Exam: ATRAUMATIC, NORMOCEPHALIC - Eye Exam Eye Exam: EOMI, PERRL - ENT Exam ENT Exam: Mucous Membranes Dry - Neck Exam Neck exam: Positive for: Full Rom - Respiratory Exam Respiratory Exam: Clear to Auscultation Bilateral, NORMAL BREATHING PATTERN - Cardiovascular Exam Cardiovascular Exam: REGULAR RHYTHM, +S1, +S2 - GI/Abdominal Exam Additional comments: scant bowel sounds, exquisitely tender throughout abdomen - Extremities Exam Extremities exam: Positive for: full ROM, normal inspection - Neurological Exam Neurological exam: Alert, CN II-XII Intact, Oriented x3 - Psychiatric Exam Psychiatric exam: Normal Affect, Normal Mood - Skin Skin Exam: Dry, Warm Results - Vital Signs Recent Vital Signs: Last Vital Signs Temp 97 F L 03/10/18 14:40 Pulse 99 H 07/07/17 23:10 Resp 20 07/07/17 23:10 BP 97/70 L 07/07/17 23:10 Pulse Ox 98 07/07/17 23:10 - Labs Result Diagrams: 07/07/17 15:57 07/07/17 15:57 Labs: Laboratory Results - last 24 hr 07/07/17 07/07/17 07/07/17 15:57 15:57 23:25 WBC 4.8 D RBC 4.26 L Hgb 14.3 D Hct 40.5 MCV 95.0 H MCH 33.5 H MCHC 35.3 RDW 16.6 H Plt Count 224 D MPV 6.6 L Neut % (Auto) 68.6 Lymph % (Auto) 21.3 [place] % (Auto) 3.6 Eos % (Auto) 5.6 H Baso % (Auto) 0.9 Neut # (Auto) 3.3 Lymph # (Auto) 1.0 [place] # (Auto) 0.2 Eos # (Auto) 0.3 Baso # (Auto) 0.0 pCO2 28 L pO2 69 L HCO3 23.8 ABG pH 7.48 H ABG Total CO2 21.8 L ABG O2 Saturation 96.2 ABG Base Excess -1.4 Perry Test Yes ABG Potassium 3.6 A-a O2 Difference 46.0 Glucose 116 H Lactate 1.1 FiO2 21.0 Sodium 133 127.0 L Potassium 3.6 Chloride 101 102.0 Carbon Dioxide 22 Anion Gap 14 BUN 22 H Creatinine 0.9 Est GFR ( Amer) > 60 Est GFR (Non-Af Amer) > 60 Random Glucose 102 Calcium 7.7 L Total Bilirubin 0.6 AST 19 ALT 33 Alkaline Phosphatase 116 Total Protein 6.0 L Albumin 2.5 L D Globulin 3.4 Albumin/Globulin Ratio 0.7 L Lipase < 10 L Arterial Blood Potassium 3.6 - Imaging and Cardiology CT scan - abdomen Status: Image reviewed by me, Report reviewed by me (free air in abd w/ extravasated contrast; post surgical changes from prior surg) Assessment & Plan (1) Perforated abdominal viscus Assessment and Plan: 72 y/o male with perforated abd viscus and sepsis. -Admit to ICU -Agree with NPO, IVF -- will switch to LR after current NS bag -Agree with Zosyn and Flagyl IV to cover g-and anaerobes including C diff -Dilaudid IV for pain, Zofran IV for nausea Surgery consulted, aware -SCDs only for DVT PPx Status: Acute (2) Sepsis Status: Acute
[2017-07-08] MEDS ORDERED: HYDROmorphone 0.5 mg/0.5 ml ISec ONE ×2 (00:03→01:05)
[2017-07-08] MEDS ORDERED: Sodium Chloride 0.9% 1,000 ML IV SCH ×2 (00:15→23:15)
--- NOTE | 2017-07-08 00:17 | CP.PCM.CON ---
<Shane Ochoa - Last Filed: 07/08/17 03:33> History of Present Illness - History of Present Illness History of Present Illness: Surgery Consult note. Dr. Worthy 72yo M with PMHx of HTN, COPD, DVT, A.Fib, chronic back pain here for evaluation of abdominal pain. Patient states that the pain started this morning , he went to the bathroom and had a large BM, non bloody, non melanotic. He then went to the couch to watch TV, soon after he noted severe, sudden abdominal pain, located initially on the left side of the abdomen and soon became generalized throughout his abdomen. Pain does not radiate. Described as severe, sharp, with intermittent cramping, stabbing type of pain. Last meal was the night prior. Denies any fevers. No chills. One episode of vomiting. Currently c/o nausea. Denies any urinary complaints. No CP/SOB. No sick contacts. Does not take any blood thinners. Reports that he only takes flomax to help him urinate. 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 "Ex Lap for removal of non-malignant tumor resection in stomach many years ago" (?Partial gastrectomy). Back surgery. Bilateral Hip surgeries. IVC filter Family Hx: non-contributory Social Hx: Previous heavy ETOH use, last reported use 1986. Prior heavy tobacco use. No illicit drugs. Lives alone NKDA Review of Systems - Review of Systems All systems: reviewed and no additional remarkable complaints except - Constitutional Constitutional: absent: Chills, Fever - Cardiovascular Cardiovascular: absent: Chest Pain, Dyspnea - Respiratory Respiratory: absent: Cough, Dyspnea - Gastrointestinal Gastrointestinal: Abdominal Pain, Nausea, Vomiting. absent: Diarrhea, Hematemesis, Hematochezia - Genitourinary Genitourinary: absent: Difficulty Urinating, Dysuria Past Patient History - Infectious Disease Hx of Infectious Diseases: None - Tetanus Immunizations Tetanus Immunization: Unknown - Past Medical History & Family History Past Medical History?: Yes - Past Social History Smoking Status: Former Smoker Alcohol: None Drugs: Denies Home Situation {Lives}: Alone - CARDIAC Hx Atrial Fibrillation: Yes Hx Hypertension: Yes - PULMONARY Hx Chronic Obstructive Pulmonary Disease (COPD): Yes Hx Pneumonia: Yes - NEUROLOGICAL Hx Neurological Disorder: No - HEENT Hx HEENT Problems: Yes Other/Comment: Glasses - RENAL Hx Chronic Kidney Disease: No - ENDOCRINE/METABOLIC Hx Endocrine Disorders: No - HEMATOLOGICAL/ONCOLOGICAL Hx Human Immunodeficiency Virus (HIV): No - INTEGUMENTARY Hx Dermatological Problems: No - MUSCULOSKELETAL/RHEUMATOLOGICAL Hx Arthritis: Yes Hx Fractures: Yes Hx Rheumatoid Arthritis: Yes - GASTROINTESTINAL Hx Gastrointestinal Disorders: Yes Hx Ulcer: Yes - GENITOURINARY/GYNECOLOGICAL Hx Genitourinary Disorders: No - PSYCHIATRIC Hx Psychophysiologic Disorder: No Hx Substance Use: No - SURGICAL HISTORY Hx Cholecystectomy: Yes - ANESTHESIA Hx Anesthesia: Yes Hx Anesthesia Reactions: No Hx Malignant Hyperthermia: No Meds Allergies/Adverse Reactions: Allergies Allergy/AdvReac Type Severity Reaction Status Date / Time No Known Allergies Allergy Verified 07/07/17 14:40 - Medications Medications: Current Medications Hydromorphone HCl (Dilaudid) 1 mg IVP Q4 PRN PRN Reason: Pain, Mild (1-3) Hydromorphone HCl (Dilaudid) 2 mg IVP Q4H PRN PRN Reason: Pain, moderate (4-7) Metronidazole (Flagyl 500mg/100ml Ns) 100 mls @ 100 mls/hr IVPB Q8 [facility] PRN Reason: Protocol Piperacillin Sod/Tazobactam (Sod 3.375 gm/ Sodium Chloride) 100 mls @ 100 mls/ hr IVPB Q6 [facility] PRN Reason: Protocol Lactated Ringer's (Lactated Ringer's) 1,000 mls @ 150 mls/hr IV .Q6H40M [facility] Stop: 07/08/17 13:04 Sodium Chloride (Sodium Chloride 0.9%) 1,000 mls @ 999 mls/hr IV .Q1H1M [facility] Stop: 07/09/17 00:12 Ondansetron HCl (Zofran Inj) 4 mg IVP Q6H PRN PRN Reason: Nausea/Vomiting Fluticasone/Salmeterol (Advair Diskus 250/50) 1 puff INH BID [facility] Physical Exam - Constitutional Appears: Toxic, In Acute Distress - Head Exam Head Exam: ATRAUMATIC, NORMAL INSPECTION, NORMOCEPHALIC - Eye Exam Eye Exam: EOMI, Normal appearance - ENT Exam ENT Exam: Mucous Membranes Moist - Respiratory Exam Respiratory Exam: NORMAL BREATHING PATTERN. absent: Accessory Muscle Use, Respiratory Distress - Cardiovascular Exam Cardiovascular Exam: Tachycardia. absent: JVD - GI/Abdominal Exam GI & Abdominal Exam: Firm, Guarding, Rebound, Rigid Additional comments: Diffuse tenderness to palpation, worst in left side of the abdomen. Does exhibit peritoneal signs - Extremities Exam Extremities exam: Positive for: normal inspection. Negative for: calf tenderness - Neurological Exam Neurological exam: Alert, Oriented x3 - Psychiatric Exam Psychiatric exam: Anxious - Skin Skin Exam: Dry, Intact, Normal Color, Warm Results - Vital Signs Recent Vital Signs: Last Vital Signs Temp 97 F L 07/07/17 14:40 Pulse 99 H 07/07/17 23:10 Resp 20 07/07/17 23:10 BP 97/70 L 07/07/17 23:10 Pulse Ox 98 07/07/17 23:10 - Labs Result Diagrams: 07/07/17 15:57 07/07/17 15:57 Labs: Laboratory Results - last 24 hr 07/07/17 07/07/17 07/07/17 15:57 15:57 23:25 WBC 4.8 D RBC 4.26 L Hgb 14.3 D Hct 40.5 MCV 95.0 H MCH 33.5 H MCHC 35.3 RDW 16.6 H Plt Count 224 D MPV 6.6 L Neut % (Auto) 68.6 Lymph % (Auto) 21.3 Camp % (Auto) 3.6 Eos % (Auto) 5.6 H Baso % (Auto) 0.9 Neut # (Auto) 3.3 Lymph # (Auto) 1.0 Camp # (Auto) 0.2 Eos # (Auto) 0.3 Baso # (Auto) 0.0 pCO2 28 L pO2 69 L HCO3 23.8 ABG pH 7.48 H ABG Total CO2 21.8 L ABG O2 Saturation 96.2 ABG Base Excess -1.4 Perry Test Yes ABG Potassium 3.6 A-a O2 Difference 46.0 Glucose 116 H Lactate 1.1 FiO2 21.0 Sodium 133 127.0 L Potassium 3.6 Chloride 101 102.0 Carbon Dioxide 22 Anion Gap 14 BUN 22 H Creatinine 0.9 Est GFR ( Amer) > 60 Est GFR (Non-Af Amer) > 60 Random Glucose 102 Calcium 7.7 L Total Bilirubin 0.6 AST 19 ALT 33 Alkaline Phosphatase 116 Total Protein 6.0 L Albumin 2.5 L D Globulin 3.4 Albumin/Globulin Ratio 0.7 L Lipase < 10 L Arterial Blood Potassium 3.6 Assessment & Plan - Assessment and Plan (Free Text) Assessment: 72yo M with acute abdomen secondary to perforated viscous -CT scan noted Plan: - NPO - Aggressive IVF resuscitation - Attempted NGT placement for decompression, unsuccessful - Two large bore IVs - IV Abx - Strict I&Os. Russell insertion. Monitor hourly urine output, fluid boluses as needed. - CXR/EKG - Type and cross - Coags - Medically maximize patient - To OR in AM once patient is maximized Further recs as per Dr. Zaynab Ochoa PGY1 <Mook Worthy - Last Filed: 07/11/17 20:10> Meds - Medications Medications: Current Medications Albuterol/Ipratropium (Duoneb 3 Mg/0.5 Mg (3 Ml) Ud) 3 ml INH RQ6 [facility] Last Admin: 07/11/17 19:29 Dose: 3 ml Metronidazole (Flagyl 500mg/100ml Ns) 100 mls @ 100 mls/hr IVPB Q8 [facility] PRN Reason: Protocol Last Admin: 07/11/17 16:14 Dose: 100 mls/hr Vancomycin HCl 1 gm/ Sodium (Chloride) 250 mls @ 166.667 mls/hr IVPB Q12 [facility] PRN Reason: Protocol Last Admin: 07/11/17 08:26 Dose: 166.667 mls/hr Amiodarone HCl 450 mg/ Sodium (Chloride) 259 mls @ 34.53 mls/hr IVPB .Q7H31M [facility]; 1 MG/MIN PRN Reason: Protocol Last Admin: 07/11/17 14:41 Dose: 34.53 mls/hr Cefepime HCl 2 gm/ Sodium (Chloride) 100 mls @ 100 mls/hr IVPB Q8 [facility] PRN Reason: Protocol Last Admin: 07/11/17 16:15 Dose: 100 mls/hr Lactated Ringer's (Lactated Ringer's) 1,000 mls @ 80 mls/hr IV .[id number] [facility] Stop: 07/12/17 18:31 Last Admin: 07/11/17 18:44 Dose: 80 mls/hr Morphine Sulfate (Morphine) 4 mg IVP Q4 PRN PRN Reason: Pain, severe (8-10) Last Admin: 07/11/17 17:14 Dose: 4 mg Mupirocin (Bactroban Ointment) 1 applic TOP BID [facility] Last Admin: 07/11/17 16:13 Dose: 1 applic Ondansetron HCl (Zofran Inj) 4 mg IVP Q6H PRN PRN Reason: Nausea/Vomiting Last Admin: 07/08/17 04:24 Dose: 4 mg Pantoprazole Sodium (Protonix Inj) 40 mg IVP DAILY [facility] Last Admin: 07/11/17 08:23 Dose: 40 mg Sodium Phosphate (Fleet Enema) 135 ml UT Q6H [facility] Stop: 07/12/17 11:31 Last Admin: 07/11/17 17:49 Dose: 135 ml Results - Vital Signs Recent Vital Signs: Last Vital Signs Temp 98.1 F 07/11/17 16:00 Pulse 115 H 07/11/17 17:58 Resp 34 H 07/11/17 17:58 BP 119/49 L 07/11/17 17:58 Pulse Ox 95 07/11/17 17:58 - Labs Result Diagrams: 07/11/17 04:20 07/11/17 04:20 Labs: Laboratory Results - last 24 hr 07/08/17 07/10/17 07/11/17 00:55 21:05 04:20 WBC 2.7 L D RBC 2.91 L Hgb 9.5 L Hct 28.0 L MCV 96.2 H MCH 32.7 H MCHC 34.0 RDW 16.7 H Plt Count 68 L D MPV 7.1 L Neut % (Auto) 82.7 H Lymph % (Auto) 11.6 L Camp % (Auto) 3.3 Eos % (Auto) 2.3 Baso % (Auto) 0.1 Neut # (Auto) 2.3 Lymph # (Auto) 0.3 L Camp # (Auto) 0.1 Eos # (Auto) 0.1 Baso # (Auto) 0.0 Sodium Potassium Chloride Carbon Dioxide Anion Gap BUN Creatinine Est GFR ( Amer) Est GFR (Non-Af Amer) POC Glucose (mg/dL) 76 Random Glucose Calcium Phosphorus Magnesium Total Bilirubin AST ALT Alkaline Phosphatase Total Protein Albumin Globulin Albumin/Globulin Ratio Blood Type A POSITIVE Antibody Screen Negative Crossmatch IS Only See Detail BBK History Checked Patient has bt 07/11/17 07/11/17 07/11/17 04:20 05:35 05:38 WBC RBC Hgb Hct MCV MCH MCHC RDW Plt Count MPV Neut % (Auto) Lymph % (Auto) Camp % (Auto) Eos % (Auto) Baso % (Auto) Neut # (Auto) Lymph # (Auto) Camp # (Auto) Eos # (Auto) Baso # (Auto) Sodium 134 Potassium 2.9 L Chloride 99 Carbon Dioxide 25 Anion Gap 13 BUN 27 H Creatinine 1.2 Est GFR ( Amer) > 60 Est GFR (Non-Af Amer) 60 POC Glucose (mg/dL) 60 L 68 Random Glucose 66 L Calcium 6.5 L Phosphorus 3.3 Magnesium 1.7 Total Bilirubin 0.5 AST 72 H ALT 78 H Alkaline Phosphatase 42 Total Protein 3.7 L Albumin 1.5 L Globulin 2.2 Albumin/Globulin Ratio 0.7 L Blood Type Antibody Screen Crossmatch IS Only BBK History Checked 07/11/17 07/11/17 11:24 17:04 WBC RBC Hgb Hct MCV MCH MCHC RDW Plt Count MPV Neut % (Auto) Lymph % (Auto) Camp % (Auto) Eos % (Auto) Baso % (Auto) Neut # (Auto) Lymph # (Auto) Camp # (Auto) Eos # (Auto) Baso # (Auto) Sodium Potassium Chloride Carbon Dioxide Anion Gap BUN Creatinine Est GFR ( Amer) Est GFR (Non-Af Amer) POC Glucose (mg/dL) 80 70 Random Glucose Calcium Phosphorus Magnesium Total Bilirubin AST ALT Alkaline Phosphatase Total Protein Albumin Globulin Albumin/Globulin Ratio Blood Type Antibody Screen Crossmatch IS Only BBK History Checked Attending/Attestation - Attestation I have personally seen and examined this patient.: Yes I have fully participated in the care of the patient.: Yes I have reviewed all pertinent clinical information: Yes Notes (Text): Pt was seen and examined at bedside Agree with above note and assessment Pt with severe abdominal pain with h/o NSAID abuse Abdomen: Tenderness and rigidity present Labs and radiology reviewed Ass: Perforated viscus, Acute abdomen, s/p Gastrectomy and Pancreatic resection 32 years ago. Plan: OR for Exp Lap, Possible Bowel resection Consent NPO, IVF IV antibiotics c.w current mx Plan d.w pt in detail Risk and benefit explained in detail.
[2017-07-08] MEDS ORDERED: metroNIDAZOLE 500mg/100ml NS 100 ML IVPB ONE (00:19)
[2017-07-08] MEDS ORDERED: Piperacillin/Tazobact 3.375 gm Inj IVPB ONE (00:20)
[2017-07-08] MEDS: Lactated Ringer's 1,000 ML IV SCH ×2 (00:45→01:48)
[2017-07-08] MEDS ORDERED: HYDROmorphone 0.5 mg/0.5 ml ISec IVP STA ×2 (00:56)
[2017-07-08 01:18] LABS: INR 1.1 (0.9-1.2); PROTHROMBIN TIME 12.7 Seconds (9.8-13.1)
[2017-07-08] MEDS: metroNIDAZOLE 500mg/100ml NS 100 ML IVPB SCH ×3 (01:49→17:26)
[2017-07-08] MEDS: Piperacillin/Tazobact 3.375 GM in Sodium Chloride 0.9% 100 ML IVPB SCH ×4 (04:25→21:13)
[2017-07-08 05:31] VITALS: BMI 18.1
[2017-07-08] MEDS ORDERED: Sodium Chloride 0.9% 500 ML IV ONE (06:19)
[2017-07-08 06:20] LABS: HEMOGLOBIN 14.5 g/dL (12.0-18.0); MEAN CELL VOLUME 96.4 fl (80.0-94.0); MEAN CORPUSCULAR HEMOGLOBIN 32.4 pg (27.0-31.0); MEAN CORPUSCULAR HGB CONC 33.6 g/dL (33.0-37.0); RBC 4.48 Mil/uL (4.40-5.90); RED CELL DISTRIBUTION WIDTH 16.8 % (11.5-14.5); WHITE BLOOD COUNT 2.3 K/uL (4.8-10.8)
[2017-07-08 06:39] LABS: BLOOD UREA NITROGEN 25 mg/dl (9-20); CALCIUM 7.2 mg/dL (8.4-10.2); GFR AFRICAN-AMERICAN > 60; GFR NON-AFRICAN AMERICAN > 60
[2017-07-08] MEDS ORDERED: Phenylephrine 10 mg/ml Inj ONE (08:15)
[2017-07-08] MEDS ORDERED: Lactated Ringer's 2,000 ML IV SCH (08:15)
[2017-07-08] MEDS ORDERED: Etomidate 20 mg/10ml Inj IV ONE (08:19)
[2017-07-08] MEDS ORDERED: Lidocaine 4% (Laryng-O-Jet) Kit MM ONE (08:19)
[2017-07-08] MEDS ORDERED: Rocuronium 10 mg/ml (5 ml) ONE ×2 (08:19→11:03)
[2017-07-08] MEDS ORDERED: Succinylcholine 200 mg/10 ml Inj IV ONE (08:19)
--- NOTE | 2017-07-08 08:24 | CP.PCM.PN ---
Subjective - Date & Time of Evaluation Date of Evaluation: 07/08/17 Time of Evaluation: 08:21 - Subjective Subjective: NSG: Patient's HR 175, upon evalaution Patient denied any complaints and stated "there is nothing wrong with my heart." When asked if he takes any medications for heart...patient stated he does not remember. Patient c/o pain 9/10 abdomen. Objective - Vital Signs/Intake and Output Vital Signs (last 24 hours): Temp Pulse Resp BP Pulse Ox 98.4 F 99 H 20 97/55 L 96 07/08/17 06:00 07/08/17 06:00 07/08/17 06:00 07/08/17 06:00 07/08/17 06:00 Intake and Output: 07/08/17 07/08/17 06:59 18:59 Intake Total 150 Output Total Balance 150 - Medications Medications: Current Medications Digoxin (Lanoxin) 0.5 mg IVP ONCE ONE Stop: 07/08/17 08:14 Hydromorphone HCl (Dilaudid) 1 mg IVP Q4 PRN PRN Reason: Pain, Mild (1-3) Last Admin: 07/08/17 04:25 Dose: 1 mg Hydromorphone HCl (Dilaudid) 2 mg IVP Q4H PRN PRN Reason: Pain, moderate (4-7) Metronidazole (Flagyl 500mg/100ml Ns) 100 mls @ 100 mls/hr IVPB Q8 [facility] PRN Reason: Protocol Last Admin: 07/08/17 01:49 Dose: Not Given Piperacillin Sod/Tazobactam (Sod 3.375 gm/ Sodium Chloride) 100 mls @ 100 mls/ hr IVPB Q6 [facility] PRN Reason: Protocol Last Admin: 07/08/17 04:25 Dose: 100 mls/hr Lactated Ringer's (Lactated Ringer's) 1,000 mls @ 150 mls/hr IV .Q6H40M [facility] Stop: 07/08/17 13:04 Last Admin: 07/08/17 01:48 Dose: 150 mls/hr Sodium Chloride (Sodium Chloride 0.9%) 1,000 mls @ 999 mls/hr IV .Q1H1M [facility] Stop: 07/09/17 00:12 Potassium Chloride (Potassium Chloride 10 Meq/100 Ml) 100 mls @ 100 mls/hr IVPB Q1 [facility] Stop: 07/08/17 10:59 Lactated Ringer's (Lactated Ringer's) 2,000 mls @ 999 mls/hr IV .Q2H1M [facility] Influenza Virus Vaccine (Afluria (Pf)(18yr & Older)) 0.5 ml IM .ONCE ONE Stop: 07/08/17 09:01 Ondansetron HCl (Zofran Inj) 4 mg IVP Q6H PRN PRN Reason: Nausea/Vomiting Last Admin: 07/08/17 04:24 Dose: 4 mg Fluticasone/Salmeterol (Advair Diskus 250/50) 1 puff INH BID [facility] Verapamil HCl (Verapamil Inj) 2.5 mg IVP ONCE ONE Stop: 07/08/17 08:17 - Labs Labs: 07/08/17 06:10 07/08/17 06:10 PT 12.7 Seconds (9.8-13.1) 07/08/17 00:50 INR 1.1 (0.9-1.2) 07/08/17 00:50 APTT 31.0 Seconds (25.6-37.1) 07/08/17 00:50 - Constitutional Appears: No Acute Distress - Head Exam Head Exam: ATRAUMATIC - Cardiovascular Exam Cardiovascular Exam: Tachycardia - Extremities Exam Extremities Exam: Normal Inspection - Neurological Exam Neurological Exam: Alert, Awake, Oriented x3 Assessment and Plan - Assessment and Plan (Free Text) Assessment: SVT: with previous documentation of A-fib: suspect exacerbated by Sepsis, continue LR bolus and infuse 0.5 mg of dig and 2.5 mg of verapamil. -continue abx -urgent source control -dvt ppx scds -pud ppx ppi IV.
[2017-07-08] MEDS ORDERED: Digoxin 500 mcg/2ml (0.5 mg/2ml) Inj IVP ONE (08:35)
[2017-07-08] MEDS ORDERED: Pneumococcal 23-Valent Vaccine IM ONE (09:00)
[2017-07-08] MEDS ORDERED: Fluticasone-Salmeterol 250-50mcg Diskus INH SCH (09:00)
[2017-07-08] MEDS ORDERED: Influenza Vaccine 18yr & older 0.5 ML/45 MCG SYR IM ONE (09:00)
[2017-07-08] MEDS ORDERED: Lidocaine 1% Inj (20ml) ONE (09:10)
[2017-07-08] MEDS ORDERED: Midazolam 2 MG/2 ML VIAL ONE ×2 (09:11→12:33)
[2017-07-08] MEDS ORDERED: Bupivacaine 0.5% Inj(30mL) ONE (09:11)
[2017-07-08] MEDS ORDERED: Sevoflurane - Inhalation Anesthetic Liq (250 ml) ONE (09:13)
--- NOTE | 2017-07-08 09:49 | RAD ---
HISTORY: preop COMPARISON: 07/07/2017 FINDINGS: LUNGS: Right upper lobe fibrosis. Small left lower lobe infiltrate. PLEURA: No significant pleural effusion identified, no pneumothorax apparent. CARDIOVASCULAR: Normal. OSSEOUS STRUCTURES: No significant abnormalities. VISUALIZED UPPER ABDOMEN: Normal. OTHER FINDINGS: None. IMPRESSION: Small left lower lobe infiltrate.
[2017-07-08] MEDS ORDERED: Sodium Chloride 0.9% 1,000 ML IV ONE ×3 (09:52→13:55)
[2017-07-08] MEDS ORDERED: Lactated Ringer's 1,000 ML IV ONE ×2 (09:52→11:58)
--- NOTE | 2017-07-08 10:31 | CARD ---
APPROVED REPORT EKG Measurement Heart [id number] <Conclusion> Normal sinus rhythm Low voltage QRS Borderline ECG
[2017-07-08] MEDS ORDERED: Methylene Blue 10 mg/mL(10ml) IV ONE ×2 (12:17→12:26)
[2017-07-08 12:27] LABS: ABG ALLEN TEST YES; ARTERIAL BLOOD GAS HCO3 14.7 mmol/L (21-28); ARTERIAL BLOOD GAS O2 SAT 98.9 % (95-98); ARTERIAL BLOOD GAS PCO2 53 mm/Hg (35-45); ARTERIAL BLOOD GAS PH 7.11 (7.35-7.45); ARTERIAL BLOOD GAS PO2 458 mm/Hg (80-100); ARTERIAL BLOOD GAS TCO2 18.4 mmol/L (22-28)
[2017-07-08] MEDS ORDERED: Sodium Bicarbonate 8.4% 10 MEQ/10 ML (PED) IV ONE (12:37)
--- NOTE | 2017-07-08 13:55 | PCM.SURG1 ---
Surgeon's Initial Post Op Note - Surgeon's Notes Surgeon: Dr. Worthy Emergency Planning And Response Manager: Anna Malcolm, PGY-1 Type of Anesthesia: General Endo Anesthesia Administered By: Dr. Montesinos Pre-Operative Diagnosis: Acute abdomen, free air, perforated viscous Operative Findings: See op report Post-Operative Diagnosis: Jejunal perforation, small bowel enterotomy Operation Performed: Jejunal perforation repair, small bowel resection and primary anastomosis, enterolysis, Irrisept irrigation, TEP block, RIJ TLC placement, NGT placement Specimen/Specimens Removed: Small bowel Estimated Blood Loss: EBL {In ML}: 150 Blood Products Given: N/A Drains Used: Selvin (x 2) Post-Op Condition: Poor Date of Surgery/Procedure: 07/08/17 Time of Surgery/Procedure: 13:56
[2017-07-08] MEDS ORDERED: HYDROmorphone 0.5 mg/0.5 ml ISec IVP PRN ×2 (14:04)
--- NOTE | 2017-07-08 14:09 | PCM.ANESB5 ---
Transverse Abdominis Block - Transverse Abdominis Plane Date of Procedure: 07/08/17 Anesthesiologist: Jaguar Pre-Procedure Diagnosis: Perforated bowel, s/p ex-lap Post-Procedure Diagnosis: Same Procedure Performed: Transverse Abdominis Plane Nerve Block Left, Transverse Abdominis Plane Nerve Block Right - Procedure Transverse Abdominis Plane Nerve Block: The procedure was explained to the patient that it is for post-operative pain management and would be performed after surgery. Consent was obtained prior to surgery after a thorough discussion with the patient regarding the benefits and possible complications of transverse abdominis plane block. After the surgery had concluded and before the patient emerged from general anesthesia, time-out was held with the circulating nurse to re-confirm the appropriate block. With the patient in supine position, the ultrasound probe was placed transverse to the abdominal wall at the mid-axillary line above the iliac crest of the appropriate side. The skin, subcutaneous tissue, fat, external oblique muscle, internal oblique muscle, and the transverse abdominis muscle were identified. The general area of the block site was then prepped with Betadine three times. At this point, a # 21-gauge Stimuplex 4-inch needle was inserted posterior to and in plane with the ultrasound probe and directed anteriorly. Needle was advanced under direct ultrasound visualization until it reached the plane between the internal oblique and transverse abdominis muscles. After appropriate placement, 2mL of local anesthetic solution was injected. When the transverse abdominis plane was observed expanding in an ellipsoid way, the rest of the solution was slowly injected. A total of ___20___ mL of __.25___ % ____ marcaine was used for this block. The needle was then removed and sterile dressing was applied. Similarly, the same procedure was performed on the other side using the same medications. The patient had stable vital signs throughout and had no untoward complications after emergence from general anesthesia in the recovery room.
[2017-07-08] MEDS ORDERED: LACTATED RINGER S IV SCH (14:15)
[2017-07-08] MEDS ORDERED: MULTIVITAMIN IV SCH (14:15)
[2017-07-08 14:17] LABS: ABG ALLEN TEST YES; ARTERIAL BLOOD GAS HCO3 16.2 mmol/L (21-28); ARTERIAL BLOOD GAS HEMOGLOBIN 14.7 g/dL (11.7-17.4); ARTERIAL BLOOD GAS O2 CAPACITY 20.4 mL/dL (16-24); ARTERIAL BLOOD GAS O2 SAT 98.1 % (95-98); ARTERIAL BLOOD GAS PCO2 44 mm/Hg (35-45); ARTERIAL BLOOD GAS PH 7.19 (7.35-7.45); ARTERIAL BLOOD GAS PO2 139 mm/Hg (80-100); ARTERIAL BLOOD GAS TCO2 18.2 mmol/L (22-28)
[2017-07-08 14:24] LABS: HEMOGLOBIN 14.4 g/dL (12.0-18.0); MEAN CORPUSCULAR HEMOGLOBIN 32.9 pg (27.0-31.0); RBC 4.36 Mil/uL (4.40-5.90); RED CELL DISTRIBUTION WIDTH 17.1 % (11.5-14.5); WHITE BLOOD COUNT 6.2 K/uL (4.8-10.8)
[2017-07-08 14:38] LABS: BLOOD UREA NITROGEN 25 mg/dl (9-20); CALCIUM 6.4 mg/dL (8.4-10.2); GFR AFRICAN-AMERICAN > 60; GFR NON-AFRICAN AMERICAN > 60
[2017-07-08] MEDS ORDERED: fentaNYL 1,000 MCG in Sodium Chloride 0.9% 80 ML IV ONE ×2 (14:45→21:29)
--- NOTE | 2017-07-08 15:36 | RAD ---
PROCEDURE: CHEST RADIOGRAPH, 1 VIEW HISTORY: NGT and RIJ placement COMPARISON: None available. FINDINGS: LUNGS: Mild bibasilar fibrotic change. PLEURA: No pneumothorax or pleural fluid seen. CARDIOVASCULAR: Normal. OSSEOUS STRUCTURES: No significant abnormalities. VISUALIZED UPPER ABDOMEN: Normal. OTHER FINDINGS: ETT above the branden. Right CVP line at the level of the SVC. IMPRESSION: Mild bibasilar fibrotic change.
[2017-07-08 16:56] LABS: ABG ALLEN TEST YES; ARTERIAL BLOOD GAS HCO3 13.5 mmol/L (21-28); ARTERIAL BLOOD GAS O2 SAT 96.5 % (95-98); ARTERIAL BLOOD GAS PCO2 45 mm/Hg (35-45); ARTERIAL BLOOD GAS PH 7.12 (7.35-7.45); ARTERIAL BLOOD GAS PO2 91 mm/Hg (80-100)
[2017-07-08] MEDS ORDERED: Sodium Bicarbonate 8.4% 150 MEQ in Dextrose 5% In Water 1,000 ML IV SCH ×3 (17:00→22:38)
[2017-07-08 17:50] LABS: BASO % 0.2 % (0.0-2.0); EOS % 0.1 % (0.0-4.0); HEMOGLOBIN 14.4 g/dL (12.0-18.0); LYMPH # 0.8 K/uL (1.0-4.3); LYMPH % 9.3 % (20.0-40.0); MEAN CELL VOLUME 97.7 fl (80.0-94.0); MEAN CORPUSCULAR HEMOGLOBIN 33.2 pg (27.0-31.0); MEAN PLATELET VOLUME 6.8 fl (7.2-11.7); MONO # 0.3 K/uL (0.0-0.8); NEUT # 7.1 K/uL (1.8-7.0); NEUT % 86.4 % (50.0-75.0); NRBC % 0.1 % (0.0-0.0); PLATELET COUNT 229 K/uL (130-400); RBC 4.35 Mil/uL (4.40-5.90); RED CELL DISTRIBUTION WIDTH 17.6 % (11.5-14.5); WHITE BLOOD COUNT 8.2 K/uL (4.8-10.8)
[2017-07-08 18:41] LABS: ALB/GLOB RATIO 0.7 (1.0-2.1); ALBUMIN 1.9 g/dL (3.5-5.0); ALT/SGPT 32 U/L (21-72); AST/SGOT 33 U/L (17-59); BLOOD UREA NITROGEN 26 mg/dl (9-20); CALCIUM 6.5 mg/dL (8.4-10.2); GFR AFRICAN-AMERICAN > 60; GFR NON-AFRICAN AMERICAN 54
[2017-07-08 18:41] LABS: ALB/GLOB RATIO 0.7 (1.0-2.1); ALBUMIN 1.9 g/dL (3.5-5.0); ALT/SGPT 37 U/L (21-72); AST/SGOT 31 U/L (17-59); BLOOD UREA NITROGEN 26 mg/dl (9-20); CALCIUM 6.5 mg/dL (8.4-10.2); GFR AFRICAN-AMERICAN > 60; GFR NON-AFRICAN AMERICAN 54
[2017-07-08 19:39] LABS: ACANTHOCYTES SLIGHT; ANISOCYTOSIS SLIGHT; BANDS 6 % (0-2); BURR CELLS SLIGHT; LYMPHOCYTE 8 % (20-50); METAMYELOCYTE 1 % (0-0); MONOCYTE 5 % (0-10); NEUTROPHIL 80 % (42-75); PLATELET ESTIMATE NORMAL (NORMAL); POIKILOCYTOSIS SLIGHT; TOTAL CELLS COUNTED 100
--- NOTE | 2017-07-08 19:45 | CP.PCM.HP ---
History of Present Illness - History of Present Illness History of Present Illness: This is a 72 y/o male admitted form yesterday for acute abdominal pain for 2 hours prior to ER eval. He claims that pain was very sudden and happened when he was watching TV,and rapidly got worst in 2 hours. He had a normal bm yesterday but had one episode of vomiting but no evidence of bleed. He has a hx of gastric surgery for removal of tumor? many years ago. He denies any trauma. He is not clear on his intake of ASA or NSAID. Medical Hx: Atrial fibrillation COPD HTN arthritis weight loss Medications HCTZ, Flomax Present on Admission - Present on Admission Any Indicators Present on Admission: No History of DVT/PE: No History of Uncontrolled Diabetes: No Urinary Catheter: No Decubitus Ulcer Present: No Review of Systems - Constitutional Constitutional: Weight Loss - Gastrointestinal Gastrointestinal: Abdominal Pain, Belching Past Patient History - Infectious Disease Hx of Infectious Diseases: None - Tetanus Immunizations Tetanus Immunization: Unknown - Past Medical History & Family History Past Medical History?: Yes - Past Social History Smoking Status: Former Smoker Alcohol: None Drugs: Denies Home Situation {Lives}: Alone - CARDIAC Hx Atrial Fibrillation: Yes Hx Hypertension: Yes - PULMONARY Hx Chronic Obstructive Pulmonary Disease (COPD): Yes Hx Pneumonia: Yes - NEUROLOGICAL Hx Neurological Disorder: No - HEENT Hx HEENT Problems: Yes Other/Comment: Glasses - RENAL Hx Chronic Kidney Disease: No - ENDOCRINE/METABOLIC Hx Endocrine Disorders: No - HEMATOLOGICAL/ONCOLOGICAL Hx Human Immunodeficiency Virus (HIV): No - INTEGUMENTARY Hx Dermatological Problems: No - MUSCULOSKELETAL/RHEUMATOLOGICAL Hx Arthritis: Yes Hx Fractures: Yes Hx Rheumatoid Arthritis: Yes - GASTROINTESTINAL Hx Gastrointestinal Disorders: Yes Hx Ulcer: Yes - GENITOURINARY/GYNECOLOGICAL Hx Genitourinary Disorders: No - PSYCHIATRIC Hx Psychophysiologic Disorder: No Hx Substance Use: No - SURGICAL HISTORY Hx Cholecystectomy: Yes - ANESTHESIA Hx Anesthesia: Yes Hx Anesthesia Reactions: No Hx Malignant Hyperthermia: No Meds Allergies/Adverse Reactions: Allergies Allergy/AdvReac Type Severity Reaction Status Date / Time No Known Allergies Allergy Verified 07/07/17 14:40 Physical Exam - Head Exam Head Exam: NORMAL INSPECTION - Eye Exam Eye Exam: Normal appearance - ENT Exam ENT Exam: Mucous Membranes Moist - Respiratory Exam Respiratory Exam: Clear to Auscultation Bilateral - Cardiovascular Exam Cardiovascular Exam: REGULAR RHYTHM - Neurological Exam Neurological exam: CN II-XII Intact, Oriented x3 Results - Vital Signs Recent Vital Signs: Last Vital Signs Temp 97.6 F 07/08/17 17:00 Pulse 118 H 07/08/17 18:00 Resp 20 07/08/17 18:00 BP 86/50 L 07/08/17 18:00 Pulse Ox 98 07/08/17 17:00 - Labs Result Diagrams: 07/10/17 04:20 07/10/17 04:20 Labs: Laboratory Results - last 24 hr 07/07/17 07/08/17 07/08/17 23:25 00:50 00:55 WBC RBC Hgb Hct MCV MCH MCHC RDW Plt Count MPV Neut % (Auto) Lymph % (Auto) [place] % (Auto) Eos % (Auto) Baso % (Auto) Neut # (Auto) Lymph # (Auto) [place] # (Auto) Eos # (Auto) Baso # (Auto) Neutrophils % (Manual) Band Neutrophils % Lymphocytes % (Manual) Monocytes % (Manual) Metamyelocytes % Platelet Estimate Poikilocytosis (manual Anisocytosis (manual) Macrocytosis (manual) [place] Cells Acanthocytes (Spur) PT 12.7 INR 1.1 APTT 31.0 pCO2 28 L pO2 69 L HCO3 23.8 ABG pH 7.48 H ABG Total CO2 21.8 L ABG O2 Saturation 96.2 ABG O2 Content ABG Base Excess -1.4 ABG Hemoglobin ABG Carboxyhemoglobin POC ABG HHb (Measured) ABG Methemoglobin ABG O2 Capacity Perry Test Yes ABG Potassium 3.6 A-a O2 Difference 46.0 Hgb O2 Saturation Sodium 127.0 L Chloride 102.0 Glucose 116 H Lactate 1.1 Vent Mode Mechanical Rate FiO2 21.0 Tidal Volume PEEP Pressure Support Crit Value Called To Crit Value Called By Crit Value Read Back Blood Gas Notified Time Potassium Carbon Dioxide Anion Gap BUN Creatinine Est GFR ( Amer) Est GFR (Non-Af Amer) POC Glucose (mg/dL) Random Glucose Lactic Acid Calcium Phosphorus Magnesium Total Bilirubin AST ALT Alkaline Phosphatase Troponin I Total Protein Albumin Globulin Albumin/Globulin Ratio Arterial Blood Potassium 3.6 Blood Type A POSITIVE Antibody Screen Negative Crossmatch IS Only See Detail BBK History Checked Patient has bt 03/11/18 03/11/18 03/11/18 05:30 06:10 06:10 WBC 2.3 L D RBC 4.48 Hgb 14.5 Hct 43.2 MCV 96.4 H MCH 32.4 H MCHC 33.6 RDW 16.8 H Plt Count 177 MPV Neut % (Auto) Lymph % (Auto) [place] % (Auto) Eos % (Auto) Baso % (Auto) Neut # (Auto) Lymph # (Auto) [place] # (Auto) Eos # (Auto) Baso # (Auto) Neutrophils % (Manual) Band Neutrophils % Lymphocytes % (Manual) Monocytes % (Manual) Metamyelocytes % Platelet Estimate Poikilocytosis (manual Anisocytosis (manual) Macrocytosis (manual) [place] Cells Acanthocytes (Spur) PT INR APTT pCO2 pO2 HCO3 ABG pH ABG Total CO2 ABG O2 Saturation ABG O2 Content ABG Base Excess ABG Hemoglobin ABG Carboxyhemoglobin POC ABG HHb (Measured) ABG Methemoglobin ABG O2 Capacity Perry Test ABG Potassium A-a O2 Difference Hgb O2 Saturation Sodium 130 L Chloride 103 Glucose Lactate Vent Mode Mechanical Rate FiO2 Tidal Volume PEEP Pressure Support Crit Value Called To Crit Value Called By Crit Value Read Back Blood Gas Notified Time Potassium 3.5 L Carbon Dioxide 18 L Anion Gap 13 BUN 25 H Creatinine 1.0 Est GFR ( Amer) > 60 Est GFR (Non-Af Amer) > 60 POC Glucose (mg/dL) Random Glucose 111 H Lactic Acid 1.5 Calcium 7.2 L Phosphorus Magnesium Total Bilirubin AST ALT Alkaline Phosphatase Troponin I Total Protein Albumin Globulin Albumin/Globulin Ratio Arterial Blood Potassium Blood Type Antibody Screen Crossmatch IS Only BBK History Checked 07/08/17 07/08/17 07/08/17 12:24 14:04 14:20 WBC 6.2 D RBC 4.36 L Hgb 14.4 Hct 42.3 MCV 97.0 H MCH 32.9 H MCHC 34.0 RDW 17.1 H Plt Count 199 MPV Neut % (Auto) Lymph % (Auto) [place] % (Auto) Eos % (Auto) Baso % (Auto) Neut # (Auto) Lymph # (Auto) [place] # (Auto) Eos # (Auto) Baso # (Auto) Neutrophils % (Manual) Band Neutrophils % Lymphocytes % (Manual) Monocytes % (Manual) Metamyelocytes % Platelet Estimate Poikilocytosis (manual Anisocytosis (manual) Macrocytosis (manual) [place]nie Cells Acanthocytes (Spur) PT INR APTT pCO2 53 H 44 pO2 458 H 139 H HCO3 14.7 L 16.2 L ABG pH 7.11 L* 7.19 L* ABG Total CO2 18.4 L 18.2 L ABG O2 Saturation 98.9 H 98.1 H ABG O2 Content 20.0 ABG Base Excess -13.0 L -11.1 L ABG Hemoglobin 14.7 ABG Carboxyhemoglobin 1.2 POC ABG HHb (Measured) 1.9 ABG Methemoglobin 1.3 ABG O2 Capacity 20.4 Perry Test Yes Yes ABG Potassium 3.6 A-a O2 Difference 189.0 163.0 Hgb O2 Saturation 95.6 Sodium 128.0 L Chloride 107.0 Glucose 113 H Lactate 1.6 Vent Mode Simv Mechanical Rate 12 FiO2 100.0 50.0 Tidal Volume 600 PEEP 5 Pressure Support 12 Crit Value Called To Dr rolly hernandez Crit Value Called By Jeffy Bardales Crit Value Read Back Y Y Blood Gas Notified Time 1227 1417 Potassium Carbon Dioxide Anion Gap BUN Creatinine Est GFR ( Amer) Est GFR (Non-Af Amer) POC Glucose (mg/dL) Random Glucose Lactic Acid Calcium Phosphorus Magnesium Total Bilirubin AST ALT Alkaline Phosphatase Troponin I Total Protein Albumin Globulin Albumin/Globulin Ratio Arterial Blood Potassium 3.6 Blood Type Antibody Screen Crossmatch IS Only BBK History Checked 07/08/17 07/08/17 07/08/17 14:20 14:58 14:58 WBC 8.2 RBC 4.35 L Hgb 14.4 Hct 42.5 MCV 97.7 H MCH 33.2 H MCHC 34.0 RDW 17.6 H Plt Count 229 MPV 6.8 L Neut % (Auto) 86.4 H Lymph % (Auto) 9.3 L [place] % (Auto) 4.0 Eos % (Auto) 0.1 Baso % (Auto) 0.2 Neut # (Auto) 7.1 H Lymph # (Auto) 0.8 L [place] # (Auto) 0.3 Eos # (Auto) 0.0 Baso # (Auto) 0.0 Neutrophils % (Manual) 80 H Band Neutrophils % 6 H Lymphocytes % (Manual) 8 L Monocytes % (Manual) 5 Metamyelocytes % 1 H Platelet Estimate Normal Poikilocytosis (manual Slight Anisocytosis (manual) Slight Macrocytosis (manual) Slight Donnie Cells Slight Acanthocytes (Spur) Slight PT INR APTT pCO2 pO2 HCO3 ABG pH ABG Total CO2 ABG O2 Saturation ABG O2 Content ABG Base Excess ABG Hemoglobin ABG Carboxyhemoglobin POC ABG HHb (Measured) ABG Methemoglobin ABG O2 Capacity [place] Test ABG Potassium A-a O2 Difference Hgb O2 Saturation Sodium 134 134 Chloride 104 105 Glucose Lactate Vent Mode Mechanical Rate FiO2 Tidal Volume PEEP Pressure Support Crit Value Called To Crit Value Called By Crit Value Read Back Blood Gas Notified Time Potassium 3.8 4.6 Carbon Dioxide 16 L 12 L Anion Gap 18 22 H BUN 25 H 26 H Creatinine 0.9 1.3 Est GFR ( Amer) > 60 > 60 Est GFR (Non-Af Amer) > 60 54 POC Glucose (mg/dL) Random Glucose 115 H 117 H Lactic Acid Calcium 6.4 L 6.5 L Phosphorus 6.7 H Magnesium 1.4 L Total Bilirubin 0.5 AST 31 ALT 37 Alkaline Phosphatase 59 Troponin I < 0.0120 Total Protein 4.7 L Albumin 1.9 L D Globulin 2.8 Albumin/Globulin Ratio 0.7 L Arterial Blood Potassium Blood Type Antibody Screen Crossmatch IS Only BBK History Checked 07/08/17 07/08/17 07/08/17 16:52 16:56 18:07 WBC RBC Hgb Hct MCV MCH MCHC RDW Plt Count MPV Neut % (Auto) Lymph % (Auto) [place] % (Auto) Eos % (Auto) Baso % (Auto) Neut # (Auto) Lymph # (Auto) [place] # (Auto) Eos # (Auto) Baso # (Auto) Neutrophils % (Manual) Band Neutrophils % Lymphocytes % (Manual) Monocytes % (Manual) Metamyelocytes % Platelet Estimate Poikilocytosis (manual Anisocytosis (manual) Macrocytosis (manual) [place] Cells Acanthocytes (Spur) PT INR APTT pCO2 45 pO2 91 HCO3 13.5 L ABG pH 7.12 L* ABG Total CO2 16.0 L ABG O2 Saturation 96.5 ABG O2 Content ABG Base Excess -14.5 L ABG Hemoglobin ABG Carboxyhemoglobin POC ABG HHb (Measured) ABG Methemoglobin ABG O2 Capacity Perry Test Yes ABG Potassium 4.3 A-a O2 Difference 209.0 Hgb O2 Saturation Sodium 130.0 L 133 Chloride 105.0 105 Glucose 118 H Lactate 3.2 H Vent Mode A/c Mechanical Rate 20 FiO2 50.0 Tidal Volume 450 PEEP 5 Pressure Support Crit Value Called To Dr lewis camacho Crit Value Called By Jeffy Crit Value Read Back Y Blood Gas Notified Time 1656 Potassium 4.6 Carbon Dioxide 13 L Anion Gap 20 BUN 26 H Creatinine 1.3 Est GFR ( Amer) > 60 Est GFR (Non-Af Amer) 54 POC Glucose (mg/dL) 115 H Random Glucose 115 H Lactic Acid Calcium 6.5 L Phosphorus Magnesium Total Bilirubin 0.4 AST 33 ALT 32 Alkaline Phosphatase 58 Troponin I Total Protein 4.8 L Albumin 1.9 L Globulin 2.9 Albumin/Globulin Ratio 0.7 L Arterial Blood Potassium 4.3 Blood Type Antibody Screen Crossmatch IS Only BBK History Checked 07/08/17 18:07 WBC RBC Hgb Hct MCV MCH MCHC RDW Plt Count MPV Neut % (Auto) Lymph % (Auto) [place] % (Auto) Eos % (Auto) Baso % (Auto) Neut # (Auto) Lymph # (Auto) [place] # (Auto) Eos # (Auto) Baso # (Auto) Neutrophils % (Manual) Band Neutrophils % Lymphocytes % (Manual) Monocytes % (Manual) Metamyelocytes % Platelet Estimate Poikilocytosis (manual Anisocytosis (manual) Macrocytosis (manual) [place] Cells Acanthocytes (Spur) PT INR APTT pCO2 pO2 HCO3 ABG pH ABG Total CO2 ABG O2 Saturation ABG O2 Content ABG Base Excess ABG Hemoglobin ABG Carboxyhemoglobin POC ABG HHb (Measured) ABG Methemoglobin ABG O2 Capacity [place] Test ABG Potassium A-a O2 Difference Hgb O2 Saturation Sodium Chloride Glucose Lactate Vent Mode Mechanical Rate FiO2 Tidal Volume PEEP Pressure Support Crit Value Called To Crit Value Called By Crit Value Read Back Blood Gas Notified Time Potassium Carbon Dioxide Anion Gap BUN Creatinine Est GFR ( Amer) Est GFR (Non-Af Amer) POC Glucose (mg/dL) Random Glucose Lactic Acid 3.7 H Calcium Phosphorus Magnesium Total Bilirubin AST ALT Alkaline Phosphatase Troponin I Total Protein Albumin Globulin Albumin/Globulin Ratio Arterial Blood Potassium Blood Type Antibody Screen Crossmatch IS Only BBK History Checked Assessment & Plan (1) Abdominal pain Status: Acute (2) COPD (chronic obstructive pulmonary disease) Status: Acute (3) Essential (primary) hypertension Status: Acute (4) Hx of atrial fibrillation, no current medication Status: Acute - Assessment and Plan (Free Text) Plan: Follow up CT follow up with surgery follow up post op check labs cardiology and pulmonary
[2017-07-08] MEDS ORDERED: Albumin Human 25% (12.5 gm/50 ml) IV ONE (19:47)
[2017-07-08] MEDS: Albuterol-Ipratrop 3 mg / 0.5 (3 ml) UD INH SCH (20:01)
[2017-07-08] MEDS: MULTIVITAMIN IV SCH (21:10)
[2017-07-08] MEDS: LACTATED RINGER S IV SCH (21:10)
[2017-07-08] MEDS ORDERED: Midazolam 50 MG in Sodium Chloride 0.9% 50 ML IV ONE (21:27)
[2017-07-08 22:19] LABS: ABG ALLEN TEST YES; ARTERIAL BLOOD GAS HCO3 14.7 mmol/L (21-28); ARTERIAL BLOOD GAS HEMOGLOBIN 13.8 g/dL (11.7-17.4); ARTERIAL BLOOD GAS O2 CAPACITY 19.1 mL/dL (16-24); ARTERIAL BLOOD GAS O2 CONTENT 18.8 ML/dL (15-23); ARTERIAL BLOOD GAS O2 SAT 98.4 % (95-98); ARTERIAL BLOOD GAS PCO2 30 mm/Hg (35-45); ARTERIAL BLOOD GAS PH 7.24 (7.35-7.45); ARTERIAL BLOOD GAS PO2 140 mm/Hg (80-100); ARTERIAL BLOOD GAS TCO2 13.8 mmol/L (22-28)
[2017-07-08] MEDS: Midazolam 5 MG/ML 50 MG in Sodium Chloride 0.9% 90 ML IV ONE (22:20)
[2017-07-09] MEDS: Sodium Bicarbonate 8.4% 150 MEQ in Dextrose 5% In Water 1,000 ML IV SCH ×2 (00:15→05:23)
[2017-07-09] MEDS: metroNIDAZOLE 500mg/100ml NS 100 ML IVPB SCH ×3 (00:25→17:46)
[2017-07-09] MEDS ORDERED: Sodium Chloride 0.9% 1,000 ML IV SCH ×2 (00:30→03:15)
[2017-07-09] MEDS: MULTIVITAMIN IV SCH (02:00)
[2017-07-09] MEDS: LACTATED RINGER S IV SCH (02:00)
[2017-07-09] MEDS: Albuterol-Ipratrop 3 mg / 0.5 (3 ml) UD INH SCH ×4 (02:13→19:20)
[2017-07-09] MEDS: Piperacillin/Tazobact 3.375 GM in Sodium Chloride 0.9% 100 ML IVPB SCH ×4 (04:00→21:30)
[2017-07-09 04:32] LABS: ABG ALLEN TEST YES; ARTERIAL BLOOD GAS HCO3 17.6 mmol/L (21-28); ARTERIAL BLOOD GAS O2 SAT 97.4 % (95-98); ARTERIAL BLOOD GAS PCO2 31 mm/Hg (35-45); ARTERIAL BLOOD GAS PH 7.31 (7.35-7.45); ARTERIAL BLOOD GAS PO2 96 mm/Hg (80-100); ARTERIAL BLOOD GAS TCO2 16.6 mmol/L (22-28)
[2017-07-09 04:43] LABS: BASO % 0.1 % (0.0-2.0); EOS % 0.3 % (0.0-4.0); LYMPH # 0.5 K/uL (1.0-4.3); LYMPH % 11.7 % (20.0-40.0); MEAN CELL VOLUME 97.1 fl (80.0-94.0); MEAN PLATELET VOLUME 7.2 fl (7.2-11.7); MONO # 0.1 K/uL (0.0-0.8); MONO % 1.8 % (0.0-10.0); NEUT # 3.5 K/uL (1.8-7.0); NEUT % 86.1 % (50.0-75.0); RBC 3.33 Mil/uL (4.40-5.90); RED CELL DISTRIBUTION WIDTH 17.4 % (11.5-14.5); WHITE BLOOD COUNT 4.1 K/uL (4.8-10.8)
[2017-07-09 04:57] LABS: HEMOGLOBIN 11.3 g/dL (12.0-18.0)
[2017-07-09 05:06] LABS: ALB/GLOB RATIO 0.7 (1.0-2.1); ALBUMIN 1.7 g/dL (3.5-5.0); ALT/SGPT 60 U/L (21-72); AST/SGOT 84 U/L (17-59); BLOOD UREA NITROGEN 29 mg/dl (9-20); CALCIUM 5.9 mg/dL (8.4-10.2); GFR AFRICAN-AMERICAN > 60; GFR NON-AFRICAN AMERICAN 50
[2017-07-09] MEDS ORDERED: Magnesium Sulfate 2 gm/50 ml 2 GM/50 ML BAG IVPB ONE (06:15)
--- NOTE | 2017-07-09 08:32 | OP ---
PROCEDURE DATE: 07/08/2017 PREOPERATIVE DIAGNOSES: 1. Perforated viscus. 2. Acute abdomen. POSTOPERATIVE DIAGNOSES: 1. Perforation of proximal part of the Louann limb of jejunum. 2. Extensive postoperative adhesions due to previous partial gastrectomy as well as pancreatectomy. 3. Extensive intraabdominal abscess of left lower quadrant. 4. Perihepatic abscess. PROCEDURES DONE: 1. Exploratory laparotomy and drainage of left lower quadrant bilious collection. 2. Extensive lysis of adhesions. 3. Repair of jejunal perforation in a proximal part of the Louann Limb. 4. Small bowel resection and anastomosis of biliopancreatic limb. 5. Drainage of perihepatic abscess. 6. Right internal jugular central venous line placement. SURGEON: Mook Worthy MD HOT FRAME TENDER: Trish Malcolm, PGY-1 resident. TYPE OF ANESTHESIA: General endotracheal tube anesthesia. ESTIMATED BLOOD LOSS: Around 200 mL DRAINS: Two different Selvin drain was placed, one in the perihepatic area, second one was placed in the left upper quadrant as well as near by perforation repair site. PATHOLOGY: The part of the small intestine was sent to the pathology and the fluid was sent was for the culture and sensitivity. COMPLICATIONS: None. INTRAOPERATIVE FINDINGS: The patient had approximately 2 x 1 cm small perforated ulcer of proximal jejunum. It was 4 cm distal to gastrojejunostomy site and due to an extensive adhesion of the previous pancreatic resection and previous gastrectomy, the biliopancreatic limb was firmly adhered anterior abdominal wall and due to multiple serosal injury, the part of the small bowel was resected and primary anastomosis was done. DESCRIPTION OF PROCEDURE: On intraoperative steps, this 72-year-old male who was diagnosed with perforated viscus and the patient is status post partial gastrectomy 38 years ago and the patient also status post pancreatic resection 32 years ago, the patient was presented with perforated viscus and acute abdomen and risks and benefits explained including bleeding, infection, leak and the patient was consented for exploratory laparotomy, possible bowel resection. Then, the patient was brought to the OR placed supine on operating table. After induction of the anesthesia, the abdomen was prepped and draped in the usual sterile fashion and midline incision was made from previous laparotomy site and peritoneal cavity was entered. The patient had an extensive adhesion and we took approximately an hour to do lysis of adhesions and the biliopancreatic limb of the small bowel was firmly adhered to the anterior abdominal wall for approximately 12 cm length and there was multiple small serosal tear and enterotomy and the decision was made to resect the part of the small bowel and then do the end-to-end anastomosis. Due to multiple adhesion of previous pancreatic surgery and gastrectomy, serosal injury was expected incidental occurrence. After that the jejunal perforation on Louann limb was identified, it was distal 4 cm from the gastrojejunostomy site and at this time, the patient became little unstable due to sepsis and hypovolemia and decision was made to repair the perforation instead of revising the gastrojejunostomy site and perforation was repaired in a two layers and the edge of the perforation was healthy and viable and the continuous one layer as well as interrupted one layer repair was done and leak test was done as well as Methylone blue was injected and test was done to check the leak from the repair site and there was no leak identified intraoperatively and after that the abdominal cavity wall was completely washed out with approximately 2 liters of fluids. Two drains was placed one on the perihepatic liver abscess site. During the right upper quadrant lysis of adhesions, the patient found to have perihepatic abscess and that was drained and at that place, the drain was placed as well as another drain was placed on the left side and after that the drain was secured and peritoneal cavity was closed with 2 layers. The fascia with #1 loop PDS as well as 0 Prolene interrupted suture and skin with stapler and dry sterile dressing was applied. The patient kept intubated. The patient was sent to the postanesthesia care unit in stable condition. Mook Worthy MD LUCY
--- NOTE | 2017-07-09 09:02 | CARD ---
APPROVED REPORT EKG Measurement Heart [id number] <Conclusion> Sinus tachycardia with occasional premature ventricular complexes Low voltage QRS Nonspecific T wave abnormality Abnormal ECG
--- NOTE | 2017-07-09 09:08 | CARD ---
APPROVED REPORT EKG Measurement Heart [id number] <Conclusion> Sinus rhythm Low voltage QRS Cannot rule out Anterior infarct, age undetermined Abnormal ECG
--- NOTE | 2017-07-09 09:27 | RAD ---
PROCEDURE: CHEST RADIOGRAPH, 1 VIEW HISTORY: Evaluate ETT. COMPARISON: Comparison made with chest radiograph dated 07/08/2017 FINDINGS: In situ ETT, tip of which lies approximately 5.77 cm above branden. In situ NGT, the tip of which has not been passed from the distal aspect does lie well below EG junction. No change right IJ central venous line with tip in the SVC. LUNGS: Re- demonstrated are scarring changes and pleural thickening right no upper lobe and lung apex. Mild left basilar atelectasis and or on residual infiltrate. Small left-sided effusion felt be present as well. PLEURA: No pneumothorax or pleural fluid seen. CARDIOVASCULAR: Normal. OSSEOUS STRUCTURES: No significant abnormalities. VISUALIZED UPPER ABDOMEN: Normal. OTHER FINDINGS: None. IMPRESSION: Support lines and tubes as above. Scarring and fibrosis right lung apex and upper lobe with throughout pleural thickening right apex. Left basilar atelectasis and or right residual infiltrate and suspected small left effusion field -
--- NOTE | 2017-07-09 09:32 | CP.PCM.PN ---
<Wojciech Miller - Last Filed: 07/09/17 09:29> Subjective - Date & Time of Evaluation Date of Evaluation: 07/09/17 Time of Evaluation: 09:29 - Subjective Subjective: SURGERY PROGRESS NOTE FOR DR. WORTHY 72M seen and examined at bedside. Patient current intubated and sedated on versed. Patient is currently on levophed and being weaned. Objective - Vital Signs/Intake and Output Vital Signs (last 24 hours): Temp Pulse Resp BP Pulse Ox 98.3 F 112 H 21 102/64 100 07/09/17 08:00 07/09/17 08:00 07/09/17 08:00 07/09/17 08:00 07/09/17 08:00 Intake and Output: 07/09/17 07/09/17 06:59 18:59 Intake Total 6049 250 Output Total 1045 40 Balance 5004 210 - Medications Medications: Current Medications Albuterol/Ipratropium (Duoneb 3 Mg/0.5 Mg (3 Ml) Ud) 3 ml INH RQ6 CHARMAINE Last Admin: 07/09/17 08:27 Dose: 3 ml Metronidazole (Flagyl 500mg/100ml Ns) 100 mls @ 100 mls/hr IVPB Q8 CHARMAINE PRN Reason: Protocol Last Admin: 07/09/17 08:56 Dose: 100 mls/hr Piperacillin Sod/Tazobactam (Sod 3.375 gm/ Sodium Chloride) 100 mls @ 100 mls/ hr IVPB Q6 CHARMAINE PRN Reason: Protocol Last Admin: 07/09/17 09:02 Dose: 100 mls/hr Norepinephrine Bitartrate 4 mg (/ Dextrose) 254 mls @ 9.52 mls/hr IV .Q24H CHARMAINE ; 2.5 MCG/MIN PRN Reason: Protocol Last Titration: 07/09/17 06:58 Dose: 2.5 mcg/min, 9.52 mls/hr Multivitamins/Vitamin C 5 ml/ (Lactated Ringer's) 1,005 mls @ 100 mls/hr IV .Q10H3M CHARMAINE Last Admin: 07/09/17 02:00 Dose: 100 mls/hr Fentanyl 1,000 mcg/ Sodium (Chloride) 100 mls @ 5 mls/hr IV .Q20H ONE; 50 MCG/ HR PRN Reason: Protocol Stop: 07/09/17 10:44 Last Admin: 07/08/17 21:35 Dose: 5 mls/hr Midazolam HCl 50 mg/ Sodium (Chloride) 100 mls @ 4 mls/hr IV .Q24H ONE; 2 MG/HR PRN Reason: Protocol Stop: 07/09/17 23:14 Last Titration: 07/08/17 22:40 Dose: 4 mg/hr, 8 mls/hr Sodium Chloride (Sodium Chloride 0.9%) 1,000 mls @ 999 mls/hr IV .Q1H1M CHARMAINE Stop: 07/10/17 00:16 Last Admin: 07/09/17 00:31 Dose: 999 mls/hr Ondansetron HCl (Zofran Inj) 4 mg IVP Q6H PRN PRN Reason: Nausea/Vomiting Last Admin: 07/08/17 04:24 Dose: 4 mg - Labs Labs: 07/09/17 04:30 07/09/17 04:30 PT 12.7 Seconds (9.8-13.1) 07/08/17 00:50 INR 1.1 (0.9-1.2) 07/08/17 00:50 APTT 31.0 Seconds (25.6-37.1) 07/08/17 00:50 - Constitutional Appears: Other (intubated, sedated) - Head Exam Head Exam: ATRAUMATIC - Neck Exam Additional comments: right IJ in place - Respiratory Exam Respiratory Exam: Clear to Ausculation Bilateral Additional comments: Intubated, on PRVC A/C - Cardiovascular Exam Cardiovascular Exam: Tachycardia, REGULAR RHYTHM, +S1, +S2 - GI/Abdominal Exam GI & Abdominal Exam: Firm, Rigid, Tenderness (tachycardic on palpation). absent : Distended, Guarding, Rebound Additional comments: Incision is CDI, Right drain 755, Left drain 30- both sero sanguinous NGT - 150cc bilious output Abdominal binder in place - Neurological Exam Additional comments: Currently sedated on versed - Skin Skin Exam: Dry, Intact, Normal Color, Warm Assessment and Plan - Assessment and Plan (Free Text) Assessment: 72M s/p exploratory laparotomy with findings of perforated viscous. Small bowel resection with anastomosis POD#1 Plan: Consider propofol Pain control, cont Abx NGT in place, RAMIN drains in place, Russell UO Replace electrolytes Wean pressors with MAPS above 65 Wean patient off ventilator - f/u ABGs Further recs discuss with Dr Zaynab Miller, PGY2 <Mook Worthy - Last Filed: 07/11/17 20:11> Objective - Vital Signs/Intake and Output Vital Signs (last 24 hours): Temp Pulse Resp BP Pulse Ox 98.1 F 115 H 34 H 119/49 L 95 07/11/17 16:00 07/11/17 17:58 07/11/17 17:58 07/11/17 17:58 07/11/17 17:58 Intake and Output: 07/11/17 07/12/17 18:59 06:59 Intake Total 2900 Output Total 1110 Balance 1790 - Medications Medications: Current Medications Albuterol/Ipratropium (Duoneb 3 Mg/0.5 Mg (3 Ml) Ud) 3 ml INH RQ6 CHARMAINE Last Admin: 07/11/17 19:29 Dose: 3 ml Metronidazole (Flagyl 500mg/100ml Ns) 100 mls @ 100 mls/hr IVPB Q8 CHARMAINE PRN Reason: Protocol Last Admin: 07/11/17 16:14 Dose: 100 mls/hr Vancomycin HCl 1 gm/ Sodium (Chloride) 250 mls @ 166.667 mls/hr IVPB Q12 CHARMAINE PRN Reason: Protocol Last Admin: 07/11/17 08:26 Dose: 166.667 mls/hr Amiodarone HCl 450 mg/ Sodium (Chloride) 259 mls @ 34.53 mls/hr IVPB .Q7H31M CHARMAINE; 1 MG/MIN PRN Reason: Protocol Last Admin: 07/11/17 14:41 Dose: 34.53 mls/hr Cefepime HCl 2 gm/ Sodium (Chloride) 100 mls @ 100 mls/hr IVPB Q8 CHARMAINE PRN Reason: Protocol Last Admin: 07/11/17 16:15 Dose: 100 mls/hr Lactated Ringer's (Lactated Ringer's) 1,000 mls @ 80 mls/hr IV .[id number] CHARMAINE Stop: 07/12/17 18:31 Last Admin: 07/11/17 18:44 Dose: 80 mls/hr Morphine Sulfate (Morphine) 4 mg IVP Q4 PRN PRN Reason: Pain, severe (8-10) Last Admin: 07/11/17 17:14 Dose: 4 mg Mupirocin (Bactroban Ointment) 1 applic TOP BID [facility] Last Admin: 07/11/17 16:13 Dose: 1 applic Ondansetron HCl (Zofran Inj) 4 mg IVP Q6H PRN PRN Reason: Nausea/Vomiting Last Admin: 07/08/17 04:24 Dose: 4 mg Pantoprazole Sodium (Protonix Inj) 40 mg IVP DAILY [facility] Last Admin: 07/11/17 08:23 Dose: 40 mg Sodium Phosphate (Fleet Enema) 135 ml ID Q6H [facility] Stop: 07/12/17 11:31 Last Admin: 07/11/17 17:49 Dose: 135 ml - Labs Labs: 07/11/17 04:20 07/11/17 04:20 PT 12.7 Seconds (9.8-13.1) 07/08/17 00:50 INR 1.1 (0.9-1.2) 07/08/17 00:50 APTT 31.0 Seconds (25.6-37.1) 07/08/17 00:50 Attending/Attestation - Attestation I have personally seen and examined this patient.: Yes I have fully participated in the care of the patient.: Yes I have reviewed all pertinent clinical information, including history, physical exam and plan: Yes Notes (Text): Pt was seen and examined at bedside Agree with above note and assessment Pt is intubated and sedated Abdomen : soft, NT Drain output: serous c.w current mx Plan d.w primary team in detail
[2017-07-09] MEDS: Midazolam 5 MG/ML 50 MG in Sodium Chloride 0.9% 90 ML IV ONE (10:25)
--- NOTE | 2017-07-09 11:52 | CP.PCM.CON ---
History of Present Illness - History of Present Illness History of Present Illness: 72 y/o male admitted with abdominal pain found to have intestinal perforation s/p 07/08 Operation Performed: Jejunal perforation repair, small bowel resection and primary anastomosis, Pt is sedated intubated on Versed and levophed Cardiology consult called for Hx of atrial fibrillation EKG: NSR monitor shows pt is at times tachycardic MHx: HTN, A fib on no meds at home COPD, prior DVT, arthritis SHx: Multiple hip surgeries, back surgery, cholecystectomy Past Patient History - Infectious Disease Hx of Infectious Diseases: None - Tetanus Immunizations Tetanus Immunization: Unknown - Past Medical History & Family History Past Medical History?: Yes - Past Social History Smoking Status: Former Smoker Alcohol: None Drugs: Denies Home Situation {Lives}: Alone - CARDIAC Hx Atrial Fibrillation: Yes Hx Hypertension: Yes - PULMONARY Hx Chronic Obstructive Pulmonary Disease (COPD): Yes Hx Pneumonia: Yes - NEUROLOGICAL Hx Neurological Disorder: No - HEENT Hx HEENT Problems: Yes Other/Comment: Glasses - RENAL Hx Chronic Kidney Disease: No - ENDOCRINE/METABOLIC Hx Endocrine Disorders: No - HEMATOLOGICAL/ONCOLOGICAL Hx Human Immunodeficiency Virus (HIV): No - INTEGUMENTARY Hx Dermatological Problems: No - MUSCULOSKELETAL/RHEUMATOLOGICAL Hx Arthritis: Yes Hx Fractures: Yes Hx Rheumatoid Arthritis: Yes - GASTROINTESTINAL Hx Gastrointestinal Disorders: Yes Hx Ulcer: Yes - GENITOURINARY/GYNECOLOGICAL Hx Genitourinary Disorders: No - PSYCHIATRIC Hx Psychophysiologic Disorder: No Hx Substance Use: No - SURGICAL HISTORY Hx Cholecystectomy: Yes - ANESTHESIA Hx Anesthesia: Yes Hx Anesthesia Reactions: No Hx Malignant Hyperthermia: No Meds Allergies/Adverse Reactions: Allergies Allergy/AdvReac Type Severity Reaction Status Date / Time No Known Allergies Allergy Verified 07/07/17 14:40 - Medications Medications: Current Medications Albuterol/Ipratropium (Duoneb 3 Mg/0.5 Mg (3 Ml) Ud) 3 ml INH RQ6 CHARMAINE Last Admin: 07/09/17 08:27 Dose: 3 ml Metronidazole (Flagyl 500mg/100ml Ns) 100 mls @ 100 mls/hr IVPB Q8 CHARMAINE PRN Reason: Protocol Last Admin: 07/09/17 08:56 Dose: 100 mls/hr Piperacillin Sod/Tazobactam (Sod 3.375 gm/ Sodium Chloride) 100 mls @ 100 mls/ hr IVPB Q6 CHARMAINE PRN Reason: Protocol Last Admin: 07/09/17 09:02 Dose: 100 mls/hr Norepinephrine Bitartrate 4 mg (/ Dextrose) 254 mls @ 9.52 mls/hr IV .Q24H CHARMAINE ; 2.5 MCG/MIN PRN Reason: Protocol Last Titration: 07/09/17 06:58 Dose: 2.5 mcg/min, 9.52 mls/hr Multivitamins/Vitamin C 5 ml/ (Lactated Ringer's) 1,005 mls @ 100 mls/hr IV .Q10H3M CHARMAINE Last Admin: 07/09/17 02:00 Dose: 100 mls/hr Midazolam HCl 50 mg/ Sodium (Chloride) 100 mls @ 4 mls/hr IV .Q24H ONE; 2 MG/HR PRN Reason: Protocol Stop: 07/09/17 23:14 Last Admin: 07/09/17 10:25 Dose: 4 mg/hr, 8 mls/hr Sodium Chloride (Sodium Chloride 0.9%) 1,000 mls @ 999 mls/hr IV .Q1H1M CHARMAINE Stop: 07/10/17 00:16 Last Admin: 07/09/17 00:31 Dose: 999 mls/hr Ondansetron HCl (Zofran Inj) 4 mg IVP Q6H PRN PRN Reason: Nausea/Vomiting Last Admin: 07/08/17 04:24 Dose: 4 mg Physical Exam - Constitutional Appears: Toxic - Respiratory Exam Respiratory Exam: NORMAL BREATHING PATTERN - Cardiovascular Exam Cardiovascular Exam: REGULAR RHYTHM Results - Vital Signs Recent Vital Signs: Last Vital Signs Temp 98.3 F 07/09/17 08:00 Pulse 112 H 07/09/17 08:00 Resp 21 07/09/17 08:00 BP 102/64 07/09/17 08:00 Pulse Ox 100 07/09/17 08:00 - Labs Result Diagrams: 07/09/17 04:30 07/09/17 04:30 Labs: Laboratory Results - last 24 hr 07/08/17 07/08/17 07/08/17 12:24 14:04 14:20 WBC 6.2 D RBC 4.36 L Hgb 14.4 Hct 42.3 MCV 97.0 H MCH 32.9 H MCHC 34.0 RDW 17.1 H Plt Count 199 MPV Neut % (Auto) Lymph % (Auto) Hopkins % (Auto) Eos % (Auto) Baso % (Auto) Neut # (Auto) Lymph # (Auto) Hopkins # (Auto) Eos # (Auto) Baso # (Auto) Neutrophils % (Manual) Band Neutrophils % Lymphocytes % (Manual) Monocytes % (Manual) Metamyelocytes % Platelet Estimate Poikilocytosis (manual Anisocytosis (manual) Macrocytosis (manual) Donnie Cells Acanthocytes (Spur) pCO2 53 H 44 pO2 458 H 139 H HCO3 14.7 L 16.2 L ABG pH 7.11 L* 7.19 L* ABG Total CO2 18.4 L 18.2 L ABG O2 Saturation 98.9 H 98.1 H ABG O2 Content 20.0 ABG Base Excess -13.0 L -11.1 L ABG Hemoglobin 14.7 ABG Carboxyhemoglobin 1.2 POC ABG HHb (Measured) 1.9 ABG Methemoglobin 1.3 ABG O2 Capacity 20.4 Perry Test Yes Yes ABG Potassium 3.6 A-a O2 Difference 189.0 163.0 Hgb O2 Saturation 95.6 Sodium 128.0 L Chloride 107.0 Glucose 113 H Lactate 1.6 Vent Mode Simv Mechanical Rate 12 FiO2 100.0 50.0 Tidal Volume 600 PEEP 5 Pressure Support 12 Crit Value Called To Dr rolly hernandez Crit Value Called By Jeffy Bardales Crit Value Read Back Y Y Blood Gas Notified Time 1227 1417 Potassium Carbon Dioxide Anion Gap BUN Creatinine Est GFR ( Amer) Est GFR (Non-Af Amer) POC Glucose (mg/dL) Random Glucose Lactic Acid Calcium Phosphorus Magnesium Total Bilirubin AST ALT Alkaline Phosphatase Troponin I Total Protein Albumin Globulin Albumin/Globulin Ratio Arterial Blood Potassium 3.6 07/08/17 07/08/17 07/08/17 14:20 14:58 14:58 WBC 8.2 RBC 4.35 L Hgb 14.4 Hct 42.5 MCV 97.7 H MCH 33.2 H MCHC 34.0 RDW 17.6 H Plt Count 229 MPV 6.8 L Neut % (Auto) 86.4 H Lymph % (Auto) 9.3 L Hopkins % (Auto) 4.0 Eos % (Auto) 0.1 Baso % (Auto) 0.2 Neut # (Auto) 7.1 H Lymph # (Auto) 0.8 L Hopkins # (Auto) 0.3 Eos # (Auto) 0.0 Baso # (Auto) 0.0 Neutrophils % (Manual) 80 H Band Neutrophils % 6 H Lymphocytes % (Manual) 8 L Monocytes % (Manual) 5 Metamyelocytes % 1 H Platelet Estimate Normal Poikilocytosis (manual Slight Anisocytosis (manual) Slight Macrocytosis (manual) Slight [place] Cells Slight Acanthocytes (Spur) Slight pCO2 pO2 HCO3 ABG pH ABG Total CO2 ABG O2 Saturation ABG O2 Content ABG Base Excess ABG Hemoglobin ABG Carboxyhemoglobin POC ABG HHb (Measured) ABG Methemoglobin ABG O2 Capacity Perry Test ABG Potassium A-a O2 Difference Hgb O2 Saturation Sodium 134 134 Chloride 104 105 Glucose Lactate Vent Mode Mechanical Rate FiO2 Tidal Volume PEEP Pressure Support Crit Value Called To Crit Value Called By Crit Value Read Back Blood Gas Notified Time Potassium 3.8 4.6 Carbon Dioxide 16 L 12 L Anion Gap 18 22 H BUN 25 H 26 H Creatinine 0.9 1.3 Est GFR ( Amer) > 60 > 60 Est GFR (Non-Af Amer) > 60 54 POC Glucose (mg/dL) Random Glucose 115 H 117 H Lactic Acid Calcium 6.4 L 6.5 L Phosphorus 6.7 H Magnesium 1.4 L Total Bilirubin 0.5 AST 31 ALT 37 Alkaline Phosphatase 59 Troponin I < 0.0120 Total Protein 4.7 L Albumin 1.9 L D Globulin 2.8 Albumin/Globulin Ratio 0.7 L Arterial Blood Potassium 07/08/17 07/08/17 07/08/17 16:52 16:56 18:07 WBC RBC Hgb Hct MCV MCH MCHC RDW Plt Count MPV Neut % (Auto) Lymph % (Auto) Hopkins % (Auto) Eos % (Auto) Baso % (Auto) Neut # (Auto) Lymph # (Auto) Hopkins # (Auto) Eos # (Auto) Baso # (Auto) Neutrophils % (Manual) Band Neutrophils % Lymphocytes % (Manual) Monocytes % (Manual) Metamyelocytes % Platelet Estimate Poikilocytosis (manual Anisocytosis (manual) Macrocytosis (manual) Donnie Cells Acanthocytes (Spur) pCO2 45 pO2 91 HCO3 13.5 L ABG pH 7.12 L* ABG Total CO2 16.0 L ABG O2 Saturation 96.5 ABG O2 Content ABG Base Excess -14.5 L ABG Hemoglobin ABG Carboxyhemoglobin POC ABG HHb (Measured) ABG Methemoglobin ABG O2 Capacity Perry Test Yes ABG Potassium 4.3 A-a O2 Difference 209.0 Hgb O2 Saturation Sodium 130.0 L 133 Chloride 105.0 105 Glucose 118 H Lactate 3.2 H Vent Mode A/c Mechanical Rate 20 FiO2 50.0 Tidal Volume 450 PEEP 5 Pressure Support Crit Value Called To Dr lewis camacho Crit Value Called By Jeffy Crit Value Read Back Y Blood Gas Notified Time 1656 Potassium 4.6 Carbon Dioxide 13 L Anion Gap 20 BUN 26 H Creatinine 1.3 Est GFR ( Amer) > 60 Est GFR (Non-Af Amer) 54 POC Glucose (mg/dL) 115 H Random Glucose 115 H Lactic Acid Calcium 6.5 L Phosphorus Magnesium Total Bilirubin 0.4 AST 33 ALT 32 Alkaline Phosphatase 58 Troponin I Total Protein 4.8 L Albumin 1.9 L Globulin 2.9 Albumin/Globulin Ratio 0.7 L Arterial Blood Potassium 4.3 07/08/17 07/08/17 07/08/17 18:07 21:03 22:15 WBC RBC Hgb Hct MCV MCH MCHC RDW Plt Count MPV Neut % (Auto) Lymph % (Auto) Hopkins % (Auto) Eos % (Auto) Baso % (Auto) Neut # (Auto) Lymph # (Auto) Hopkins # (Auto) Eos # (Auto) Baso # (Auto) Neutrophils % (Manual) Band Neutrophils % Lymphocytes % (Manual) Monocytes % (Manual) Metamyelocytes % Platelet Estimate Poikilocytosis (manual Anisocytosis (manual) Macrocytosis (manual) [place] Cells Acanthocytes (Spur) pCO2 30 L pO2 140 H HCO3 14.7 L ABG pH 7.24 L ABG Total CO2 13.8 L ABG O2 Saturation 98.4 H ABG O2 Content 18.8 ABG Base Excess -13.1 L ABG Hemoglobin 13.8 ABG Carboxyhemoglobin 1.1 POC ABG HHb (Measured) 1.6 ABG Methemoglobin 1.5 ABG O2 Capacity 19.1 Perry Test Yes ABG Potassium A-a O2 Difference 179.0 Hgb O2 Saturation 95.8 Sodium Chloride Glucose Lactate Vent Mode A/c Mechanical Rate 20 FiO2 50.0 Tidal Volume 500 PEEP 5 Pressure Support Crit Value Called To Crit Value Called By Crit Value Read Back Blood Gas Notified Time Potassium Carbon Dioxide Anion Gap BUN Creatinine Est GFR ( Amer) Est GFR (Non-Af Amer) POC Glucose (mg/dL) 129 H Random Glucose Lactic Acid 3.7 H Calcium Phosphorus Magnesium Total Bilirubin AST ALT Alkaline Phosphatase Troponin I Total Protein Albumin Globulin Albumin/Globulin Ratio Arterial Blood Potassium 07/08/17 07/08/17 07/09/17 22:50 22:50 01:45 WBC RBC Hgb Hct MCV MCH MCHC RDW Plt Count MPV Neut % (Auto) Lymph % (Auto) Hopkins % (Auto) Eos % (Auto) Baso % (Auto) Neut # (Auto) Lymph # (Auto) Hopkins # (Auto) Eos # (Auto) Baso # (Auto) Neutrophils % (Manual) Band Neutrophils % Lymphocytes % (Manual) Monocytes % (Manual) Metamyelocytes % Platelet Estimate Poikilocytosis (manual Anisocytosis (manual) Macrocytosis (manual) Donnie Cells Acanthocytes (Spur) pCO2 pO2 HCO3 ABG pH ABG Total CO2 ABG O2 Saturation ABG O2 Content ABG Base Excess ABG Hemoglobin ABG Carboxyhemoglobin POC ABG HHb (Measured) ABG Methemoglobin ABG O2 Capacity Perry Test ABG Potassium A-a O2 Difference Hgb O2 Saturation Sodium Chloride Glucose Lactate Vent Mode Mechanical Rate FiO2 Tidal Volume PEEP Pressure Support Crit Value Called To Crit Value Called By Crit Value Read Back Blood Gas Notified Time Potassium Carbon Dioxide Anion Gap BUN Creatinine Est GFR ( Amer) Est GFR (Non-Af Amer) POC Glucose (mg/dL) Random Glucose Lactic Acid 4.4 H* 3.7 H Calcium Phosphorus Magnesium Total Bilirubin AST ALT Alkaline Phosphatase Troponin I 0.0160 Total Protein Albumin Globulin Albumin/Globulin Ratio Arterial Blood Potassium 07/09/17 07/09/17 07/09/17 04:25 04:27 04:30 WBC 4.1 L RBC 3.33 L Hgb 11.3 L D Hct 32.3 L MCV 97.1 H MCH 34.0 H MCHC 35.0 RDW 17.4 H Plt Count 152 MPV 7.2 Neut % (Auto) 86.1 H Lymph % (Auto) 11.7 L Hopkins % (Auto) 1.8 Eos % (Auto) 0.3 Baso % (Auto) 0.1 Neut # (Auto) 3.5 Lymph # (Auto) 0.5 L Hopkins # (Auto) 0.1 Eos # (Auto) 0.0 Baso # (Auto) 0.0 Neutrophils % (Manual) Band Neutrophils % Lymphocytes % (Manual) Monocytes % (Manual) Metamyelocytes % Platelet Estimate Poikilocytosis (manual Anisocytosis (manual) Macrocytosis (manual) Donnie Cells Acanthocytes (Spur) pCO2 31 L pO2 96 HCO3 17.6 L ABG pH 7.31 L ABG Total CO2 16.6 L ABG O2 Saturation 97.4 ABG O2 Content ABG Base Excess -9.4 L ABG Hemoglobin ABG Carboxyhemoglobin POC ABG HHb (Measured) ABG Methemoglobin ABG O2 Capacity Perry Test Yes ABG Potassium 4.0 A-a O2 Difference 222.0 Hgb O2 Saturation Sodium 129.0 L Chloride 107.0 Glucose 231 H Lactate 3.7 H Vent Mode A/c Mechanical Rate 20 FiO2 50.0 Tidal Volume 500 PEEP 5 Pressure Support Crit Value Called To Crit Value Called By Crit Value Read Back Blood Gas Notified Time Potassium Carbon Dioxide Anion Gap BUN Creatinine Est GFR ( Amer) Est GFR (Non-Af Amer) POC Glucose (mg/dL) 245 H Random Glucose Lactic Acid Calcium Phosphorus Magnesium Total Bilirubin AST ALT Alkaline Phosphatase Troponin I Total Protein Albumin Globulin Albumin/Globulin Ratio Arterial Blood Potassium 4.0 07/09/17 07/09/17 07/09/17 04:30 04:30 04:40 WBC RBC Hgb Hct MCV MCH MCHC RDW Plt Count MPV Neut % (Auto) Lymph % (Auto) Hopkins % (Auto) Eos % (Auto) Baso % (Auto) Neut # (Auto) Lymph # (Auto) Hopkins # (Auto) Eos # (Auto) Baso # (Auto) Neutrophils % (Manual) Band Neutrophils % Lymphocytes % (Manual) Monocytes % (Manual) Metamyelocytes % Platelet Estimate Poikilocytosis (manual Anisocytosis (manual) Macrocytosis (manual) [place] Cells Acanthocytes (Spur) pCO2 pO2 HCO3 ABG pH ABG Total CO2 ABG O2 Saturation ABG O2 Content ABG Base Excess ABG Hemoglobin ABG Carboxyhemoglobin POC ABG HHb (Measured) ABG Methemoglobin ABG O2 Capacity Perry Test ABG Potassium A-a O2 Difference Hgb O2 Saturation Sodium 133 Chloride 103 Glucose Lactate Vent Mode Mechanical Rate FiO2 Tidal Volume PEEP Pressure Support Crit Value Called To Crit Value Called By Crit Value Read Back Blood Gas Notified Time Potassium 4.1 Carbon Dioxide 16 L Anion Gap 18 BUN 29 H Creatinine 1.4 Est GFR ( Amer) > 60 Est GFR (Non-Af Amer) 50 POC Glucose (mg/dL) Random Glucose 213 H Lactic Acid 3.6 H Calcium 5.9 L* Phosphorus 5.4 H Magnesium 1.2 L Total Bilirubin 0.5 AST 84 H D ALT 60 Alkaline Phosphatase 45 Troponin I 0.0350 Total Protein 4.0 L Albumin 1.7 L Globulin 2.4 Albumin/Globulin Ratio 0.7 L Arterial Blood Potassium Assessment & Plan (1) Hx of atrial fibrillation, no current medication Assessment and Plan: pt is in normal sinus rhythm at present will f/u Status: Acute (2) Intestinal perforation Status: Acute (3) COPD (chronic obstructive pulmonary disease) Status: Acute (4) Essential (primary) hypertension Status: Acute
[2017-07-09] MEDS ORDERED: Calcium Chloride 1000 mg/10 ml Syringe IV ONE (13:59)
[2017-07-09] MEDS: Lactated Ringer's 1,000 ML IV SCH (14:00)
[2017-07-09] MEDS ORDERED: Magnesium Sulfate 1 gm in D5W 1 GM/100 ML BAG IVPB ONE (14:30)
[2017-07-09] MEDS: Sodium Bicarbonate 8.4% 100 MEQ in Dextrose 5% In Water 1,000 ML IV SCH (14:52)
[2017-07-09] MEDS ORDERED: fentaNYL 1,000 MCG in Sodium Chloride 0.9% 80 ML IV ONE (17:45)
[2017-07-09 19:51] LABS: ABG ALLEN TEST YES; ARTERIAL BLOOD GAS HCO3 22.6 mmol/L (21-28); ARTERIAL BLOOD GAS HEMOGLOBIN 11.2 g/dL (11.7-17.4); ARTERIAL BLOOD GAS O2 CAPACITY 15.8 mL/dL (16-24); ARTERIAL BLOOD GAS O2 CONTENT 15.5 ML/dL (15-23); ARTERIAL BLOOD GAS O2 SAT 98.2 % (95-98); ARTERIAL BLOOD GAS PCO2 32 mm/Hg (35-45); ARTERIAL BLOOD GAS PH 7.42 (7.35-7.45); ARTERIAL BLOOD GAS PO2 162 mm/Hg (80-100); ARTERIAL BLOOD GAS TCO2 21.8 mmol/L (22-28)
--- NOTE | 2017-07-09 20:19 | CP.PCM.PCO ---
Physician Communication Note - Physician Communication Note Physician Communication Note: MRSA +ve in Nares. Bactroban started
[2017-07-09] MEDS ORDERED: Norepinephrine 8 MG in Dextrose 5% In Water 500 ML IV SCH (23:45)
[2017-07-10] MEDS: metroNIDAZOLE 500mg/100ml NS 100 ML IVPB SCH ×3 (00:55→17:10)
[2017-07-10] MEDS: Lactated Ringer's 1,000 ML IV SCH ×4 (00:59→22:59)
[2017-07-10] MEDS: Albuterol-Ipratrop 3 mg / 0.5 (3 ml) UD INH SCH ×4 (01:02→19:51)
[2017-07-10] MEDS: Sodium Bicarbonate 8.4% 100 MEQ in Dextrose 5% In Water 1,000 ML IV SCH ×2 (01:06→15:21)
[2017-07-10] MEDS: Piperacillin/Tazobact 3.375 GM in Sodium Chloride 0.9% 100 ML IVPB SCH ×2 (03:24→09:11)
[2017-07-10 04:37] LABS: ABG ALLEN TEST YES; ARTERIAL BLOOD GAS HEMOGLOBIN 10.9 g/dL (11.7-17.4); ARTERIAL BLOOD GAS O2 CAPACITY 15.2 mL/dL (16-24); ARTERIAL BLOOD GAS O2 CONTENT 14.7 ML/dL (15-23); ARTERIAL BLOOD GAS PCO2 31 mm/Hg (35-45); ARTERIAL BLOOD GAS PH 7.46 (7.35-7.45); ARTERIAL BLOOD GAS PO2 85 mm/Hg (80-100)
[2017-07-10 05:42] LABS: BASO % 0.1 % (0.0-2.0); EOS % 0.3 % (0.0-4.0); HEMOGLOBIN 10.7 g/dL (12.0-18.0); LYMPH # 0.4 K/uL (1.0-4.3); LYMPH % 6.5 % (20.0-40.0); MEAN CELL VOLUME 95.8 fl (80.0-94.0); MEAN CORPUSCULAR HEMOGLOBIN 32.9 pg (27.0-31.0); MEAN CORPUSCULAR HGB CONC 34.4 g/dL (33.0-37.0); MEAN PLATELET VOLUME 7.4 fl (7.2-11.7); MONO # 0.1 K/uL (0.0-0.8); MONO % 2.4 % (0.0-10.0); NEUT # 5.7 K/uL (1.8-7.0); NEUT % 90.7 % (50.0-75.0); PLATELET COUNT 134 K/uL (130-400); RBC 3.23 Mil/uL (4.40-5.90); RED CELL DISTRIBUTION WIDTH 17.1 % (11.5-14.5); WHITE BLOOD COUNT 6.3 K/uL (4.8-10.8)
[2017-07-10] MEDS ORDERED: Potassium Chloride 40 MEQ in Sodium Chloride 0.9% 500 ML IV SCH (06:00)
[2017-07-10 06:18] LABS: ALB/GLOB RATIO 0.7 (1.0-2.1); ALBUMIN 1.6 g/dL (3.5-5.0); ALT/SGPT 67 U/L (21-72); AST/SGOT 72 U/L (17-59); BLOOD UREA NITROGEN 31 mg/dl (9-20); CALCIUM 6.1 mg/dL (8.4-10.2); GFR AFRICAN-AMERICAN > 60; GFR NON-AFRICAN AMERICAN 60
--- NOTE | 2017-07-10 08:52 | CP.PCM.PN ---
<Wojciech Miller - Last Filed: 07/10/17 08:55> Subjective - Date & Time of Evaluation Date of Evaluation: 07/10/17 Time of Evaluation: 07:13 - Subjective Subjective: SURGERY PROGRESS NOTE FOR DR. ODOM 72M seen and examined at bedside. Patient intubated and on levophed. Levophed had to be increased overnight currently at 10. [id number]. Objective - Vital Signs/Intake and Output Vital Signs (last 24 hours): Temp Pulse Resp BP Pulse Ox 100.6 F H 101 H 20 102/56 L 100 07/10/17 06:00 07/10/17 07:00 07/10/17 07:00 07/10/17 07:00 07/10/17 07:00 Intake and Output: 07/10/17 07/10/17 06:59 18:59 Intake Total 3618 Output Total 1155 Balance 2463 - Medications Medications: Current Medications Albuterol/Ipratropium (Duoneb 3 Mg/0.5 Mg (3 Ml) Ud) 3 ml INH RQ6 CHARMAINE Last Admin: 07/10/17 08:34 Dose: 3 ml Metronidazole (Flagyl 500mg/100ml Ns) 100 mls @ 100 mls/hr IVPB Q8 CHARMAINE PRN Reason: Protocol Last Admin: 07/10/17 08:23 Dose: 100 mls/hr Piperacillin Sod/Tazobactam (Sod 3.375 gm/ Sodium Chloride) 100 mls @ 100 mls/ hr IVPB Q6 CHARMAINE PRN Reason: Protocol Last Admin: 07/10/17 03:24 Dose: 100 mls/hr Multivitamins/Vitamin C 5 ml/ (Lactated Ringer's) 1,005 mls @ 100 mls/hr IV .Q10H3M CHARMAINE Last Admin: 07/09/17 02:00 Dose: 100 mls/hr Sodium Bicarbonate 100 meq/ (Dextrose) 1,100 mls @ 100 mls/hr IV .Q11H CHARMAINE Stop: 07/10/17 13:40 Last Admin: 07/10/17 01:06 Dose: 100 mls/hr Lactated Ringer's (Lactated Ringer's) 1,000 mls @ 150 mls/hr IV .Q6H40M CHARMAINE Last Admin: 07/10/17 00:59 Dose: 150 mls/hr Fentanyl 1,000 mcg/ Sodium (Chloride) 100 mls @ 5 mls/hr IV .Q20H ONE Stop: 07/10/17 13:44 Last Admin: 07/09/17 17:57 Dose: 5 mls/hr Diltiazem HCl 125 mg/ Sodium (Chloride) 125 mls @ 5 mls/hr IV .Q24H ONE; 5 MG/ HR PRN Reason: Protocol Stop: 07/10/17 18:09 Last Titration: 07/10/17 06:08 Dose: 2.5 mg/hr, 2.5 mls/hr Norepinephrine Bitartrate 8 mg (/ Dextrose) 508 mls @ 57.15 mls/hr IV .Q8H54M CHARMAINE; 15 MCG/MIN PRN Reason: Protocol Last Titration: 07/10/17 05:45 Dose: 10 mcg/min, 38.1 mls/hr Potassium Chloride 40 meq/ (Sodium Chloride) 520 mls @ 130 mls/hr IV Q4H [facility] Stop: 07/10/17 09:59 Last Admin: 07/10/17 05:47 Dose: 130 mls/hr Mupirocin (Bactroban Ointment) 1 applic TOP BID [facility] Last Admin: 07/10/17 08:14 Dose: 1 applic Ondansetron HCl (Zofran Inj) 4 mg IVP Q6H PRN PRN Reason: Nausea/Vomiting Last Admin: 07/08/17 04:24 Dose: 4 mg Pantoprazole Sodium (Protonix Inj) 40 mg IVP DAILY [facility] Last Admin: 07/10/17 08:14 Dose: 40 mg - Labs Labs: 07/10/17 04:20 07/10/17 04:20 PT 12.7 Seconds (9.8-13.1) 07/08/17 00:50 INR 1.1 (0.9-1.2) 07/08/17 00:50 APTT 31.0 Seconds (25.6-37.1) 07/08/17 00:50 - Constitutional Appears: Other (intubated, on pressors) - Respiratory Exam Respiratory Exam: Clear to Ausculation Bilateral, NORMAL BREATHING PATTERN Additional comments: intubated on PRVC - Cardiovascular Exam Cardiovascular Exam: REGULAR RHYTHM, +S1, +S2 - GI/Abdominal Exam GI & Abdominal Exam: Soft, Tenderness. absent: Distended, Firm, Guarding, Rigid , Rebound Additional comments: appropriately tender to palpation, drains in place with serosanguinous output - Exam Additional comments: connors in place with urine output less concentrated - Neurological Exam Neurological Exam: Alert, Awake - Skin Skin Exam: Dry, Intact, Normal Color, Warm Assessment and Plan - Assessment and Plan (Free Text) Assessment: 72M s/p 72M s/p exploratory laparotomy with findings of perforated viscous. Small bowel resection with anastomosis POD#2 Plan: Pain control, cont Abx NGT in place, RAMIN drains in place, Connors UO Replace electrolytes Wean pressors with MAPS above 65 Wean patient off ventilator - f/u ABGs Further recs discuss with Dr Zaynab Miller, PGY2 <Mook Odom B - Last Filed: 07/11/17 20:14> Objective - Vital Signs/Intake and Output Vital Signs (last 24 hours): Temp Pulse Resp BP Pulse Ox 98.1 F 115 H 34 H 119/49 L 95 07/11/17 16:00 07/11/17 17:58 07/11/17 17:58 07/11/17 17:58 07/11/17 17:58 Intake and Output: 07/11/17 07/12/17 18:59 06:59 Intake Total 2900 Output Total 1110 Balance 1790 - Medications Medications: Current Medications Albuterol/Ipratropium (Duoneb 3 Mg/0.5 Mg (3 Ml) Ud) 3 ml INH RQ6 CHARMAINE Last Admin: 07/11/17 19:29 Dose: 3 ml Metronidazole (Flagyl 500mg/100ml Ns) 100 mls @ 100 mls/hr IVPB Q8 CHARMAINE PRN Reason: Protocol Last Admin: 07/11/17 16:14 Dose: 100 mls/hr Vancomycin HCl 1 gm/ Sodium (Chloride) 250 mls @ 166.667 mls/hr IVPB Q12 CHARMAINE PRN Reason: Protocol Last Admin: 07/11/17 08:26 Dose: 166.667 mls/hr Amiodarone HCl 450 mg/ Sodium (Chloride) 259 mls @ 34.53 mls/hr IVPB .Q7H31M CHARMAINE; 1 MG/MIN PRN Reason: Protocol Last Admin: 07/11/17 14:41 Dose: 34.53 mls/hr Cefepime HCl 2 gm/ Sodium (Chloride) 100 mls @ 100 mls/hr IVPB Q8 CHARMAINE PRN Reason: Protocol Last Admin: 07/11/17 16:15 Dose: 100 mls/hr Lactated Ringer's (Lactated Ringer's) 1,000 mls @ 80 mls/hr IV .[id number] [facility] Stop: 07/12/17 18:31 Last Admin: 07/11/17 18:44 Dose: 80 mls/hr Morphine Sulfate (Morphine) 4 mg IVP Q4 PRN PRN Reason: Pain, severe (8-10) Last Admin: 07/11/17 17:14 Dose: 4 mg Mupirocin (Bactroban Ointment) 1 applic TOP BID [facility] Last Admin: 07/11/17 16:13 Dose: 1 applic Ondansetron HCl (Zofran Inj) 4 mg IVP Q6H PRN PRN Reason: Nausea/Vomiting Last Admin: 07/08/17 04:24 Dose: 4 mg Pantoprazole Sodium (Protonix Inj) 40 mg IVP DAILY [facility] Last Admin: 07/11/17 08:23 Dose: 40 mg Sodium Phosphate (Fleet Enema) 135 ml WV Q6H [facility] Stop: 07/12/17 11:31 Last Admin: 07/11/17 17:49 Dose: 135 ml - Labs Labs: 07/11/17 04:20 07/11/17 04:20 PT 12.7 Seconds (9.8-13.1) 07/08/17 00:50 INR 1.1 (0.9-1.2) 07/08/17 00:50 APTT 31.0 Seconds (25.6-37.1) 07/08/17 00:50 Attending/Attestation - Attestation I have personally seen and examined this patient.: Yes I have fully participated in the care of the patient.: Yes I have reviewed all pertinent clinical information, including history, physical exam and plan: Yes Notes (Text): Pt was seen and examined at bedside Agree with above note and assessment Pt is improving clinically Extubated today On Low dose Levophad c.w current mx Plan d.w nurse in detail
--- NOTE | 2017-07-10 10:14 | RAD ---
HISTORY: vented COMPARISON: Chest radiograph dated 07/09/2017. FINDINGS: LUNGS: Increased bibasilar atelectatic change. Stable right apical scarring. Stable hyperinflated lungs with flattened diaphragms. PLEURA: No significant pleural effusion identified, no pneumothorax apparent. CARDIOVASCULAR: Atherosclerotic aortic calcifications. Cardiomediastinal silhouette within normal limits. OSSEOUS STRUCTURES: Unchanged. VISUALIZED UPPER ABDOMEN: Epigastric region surgical clips redemonstrated. OTHER FINDINGS: Endotracheal, enteric tubes, unchanged. Right internal jugular access central venous catheter, unchanged. . IMPRESSION: Increased bibasilar atelectatic change. No other significant interval change.
--- NOTE | 2017-07-10 10:17 | PQF GENQUE ---
Dr. Castaneda, In agreement with the dx. of Sepsis: POA? 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 -Admit to ICU -Agree with NPO, IVF -- will switch to LR after current NS bag -Agree with Zosyn and Flagyl IV to cover g-and anaerobes including C diff --- 07/08 [employer] Furnace Installer note : SVT: with previous documentation of A-fib: suspect exacerbated by Sepsis, continue LR bolus and infuse 0.5 mg of dig and 2.5 mg of verapamil 07/08: Body of operative report: the patient became little unstable due to sepsis and hypovolemia This form is a permanent part of the medical record Clarification of your documentation is requested to better reflect the severity of illness and intensity of treatment of your patient. Indicators present [] Specify: [] [] Specify: [] [] Specify: [] [] Specify: [] Location in the medical record that reflects the above clinical findings: [] Treatment Provided: [] PHYSICIAN'S RESPONSE Based on your medical judgment of the clinical indicators outlined above please clarify the following: [] Practitioner response [] If unable to determine, please check the box, sign and date. Present On Admission (POA) Indicator: [] Present at the time of admission [] Not present at the time of admission [] Clinically Undetermined In responding to this query, please exercise your independent professional judgment. The fact that a question is asked does not imply that any particular answer is desired or expected. Thank you for your clarification on this documentation. If you have any questions please call. * Thank you, Abby Miller RN ext. #[phone] MTDD
--- NOTE | 2017-07-10 10:21 | CP.PCM.PN ---
<Brandon Kauffman - Last Filed: 07/10/17 12:17> Subjective - Date & Time of Evaluation Date of Evaluation: 07/10/17 Time of Evaluation: 10:00 - Subjective Subjective: S/p exploratory laparotomy with findings of perforated viscous. Small bowel resection with anastomosis POD#2. Alert, Arousable to voice. Attached to vent. Overnight event noted. Had low grade fever Yesterday. On Zosyn, Flagyl. Objective - Vital Signs/Intake and Output Vital Signs (last 24 hours): Temp Pulse Resp BP Pulse Ox 98.3 F 101 H 16 109/55 L 100 07/10/17 08:00 07/10/17 07:00 07/10/17 09:00 07/10/17 09:00 07/10/17 09:00 Intake and Output: 07/10/17 07/10/17 06:59 18:59 Intake Total 3618 1420 Output Total 1155 200 Balance 2463 1220 - Medications Medications: Current Medications Albuterol/Ipratropium (Duoneb 3 Mg/0.5 Mg (3 Ml) Ud) 3 ml INH RQ6 [facility] Last Admin: 07/10/17 08:34 Dose: 3 ml Metronidazole (Flagyl 500mg/100ml Ns) 100 mls @ 100 mls/hr IVPB Q8 [facility] PRN Reason: Protocol Last Admin: 07/10/17 08:23 Dose: 100 mls/hr Piperacillin Sod/Tazobactam (Sod 3.375 gm/ Sodium Chloride) 100 mls @ 100 mls/ hr IVPB Q6 [facility] PRN Reason: Protocol Last Admin: 07/10/17 09:11 Dose: 100 mls/hr Multivitamins/Vitamin C 5 ml/ (Lactated Ringer's) 1,005 mls @ 100 mls/hr IV .Q10H3M [facility] Last Admin: 07/09/17 02:00 Dose: 100 mls/hr Sodium Bicarbonate 100 meq/ (Dextrose) 1,100 mls @ 100 mls/hr IV .Q11H [facility] Stop: 07/10/17 13:40 Last Admin: 07/10/17 01:06 Dose: 100 mls/hr Lactated Ringer's (Lactated Ringer's) 1,000 mls @ 150 mls/hr IV .Q6H40M [facility] Last Admin: 07/10/17 00:59 Dose: 150 mls/hr Fentanyl 1,000 mcg/ Sodium (Chloride) 100 mls @ 5 mls/hr IV .Q20H ONE Stop: 07/10/17 13:44 Last Admin: 07/09/17 17:57 Dose: 5 mls/hr Diltiazem HCl 125 mg/ Sodium (Chloride) 125 mls @ 5 mls/hr IV .Q24H ONE; 5 MG/ HR PRN Reason: Protocol Stop: 07/10/17 18:09 Last Titration: 07/10/17 06:08 Dose: 2.5 mg/hr, 2.5 mls/hr Norepinephrine Bitartrate 8 mg (/ Dextrose) 508 mls @ 57.15 mls/hr IV .Q8H54M [facility]; 15 MCG/MIN PRN Reason: Protocol Last Titration: 07/10/17 05:45 Dose: 10 mcg/min, 38.1 mls/hr Mupirocin (Bactroban Ointment) 1 applic TOP BID [facility] Last Admin: 07/10/17 08:14 Dose: 1 applic Ondansetron HCl (Zofran Inj) 4 mg IVP Q6H PRN PRN Reason: Nausea/Vomiting Last Admin: 07/08/17 04:24 Dose: 4 mg Pantoprazole Sodium (Protonix Inj) 40 mg IVP DAILY [facility] Last Admin: 07/10/17 08:14 Dose: 40 mg - Labs Labs: 07/10/17 04:20 07/10/17 04:20 PT 12.7 Seconds (9.8-13.1) 07/08/17 00:50 INR 1.1 (0.9-1.2) 07/08/17 00:50 APTT 31.0 Seconds (25.6-37.1) 07/08/17 00:50 - Eye Exam Eye Exam: PERRL - Respiratory Exam Respiratory Exam: Rhonchi, NORMAL BREATHING PATTERN. absent: Rales, Wheezes - Cardiovascular Exam Cardiovascular Exam: REGULAR RHYTHM, +S1, +S2, Murmur - GI/Abdominal Exam GI & Abdominal Exam: Soft, Tenderness. absent: Distended, Guarding, Rebound - Extremities Exam Extremities Exam: Normal Capillary Refill, Pedal Edema (trace). absent: Tenderness - Neurological Exam Neurological Exam: Alert, Awake - Skin Skin Exam: Warm. absent: Pallor, Petechiae, Rash Assessment and Plan - Assessment and Plan (Free Text) Assessment: 72M s/p exploratory laparotomy with findings of perforated viscous. Small bowel resection with anastomosis POD#2 VS stable CBC this morning: Bands =13. Lactate elevated Yesterday Nares Cx + for MRSA ID consulted Dr Harris. Will f/u recs As per Dr Harris recs patient started on Vanco/Francisco until evaluated by him. Zosyn stopped C/W Flagyl C/W Pressors as per ICU management Vent setting readjusted by ICU attendant today C/W IV fluids. <Bronson Castaneda L - Last Filed: 07/14/17 16:39> Objective - Vital Signs/Intake and Output Vital Signs (last 24 hours): Temp Pulse Resp BP Pulse Ox 97.8 F 87 13 96/44 L 98 07/14/17 16:18 07/14/17 16:18 07/14/17 16:18 07/14/17 16:18 07/14/17 16:18 Intake and Output: 07/14/17 07/14/17 06:59 18:59 Intake Total 650 Output Total 1830 Balance -1180 - Medications Medications: Current Medications Acetaminophen (Tylenol 325mg Tab) 650 mg PO Q4 PRN PRN Reason: Pain, moderate (4-7) Albuterol/Ipratropium (Duoneb 3 Mg/0.5 Mg (3 Ml) Ud) 3 ml INH RQ6 [facility] Last Admin: 07/14/17 13:44 Dose: 3 ml Docusate Sodium (Colace) 100 mg PO TID [facility] Last Admin: 07/14/17 16:24 Dose: 100 mg Furosemide (Lasix) 20 mg IVP DAILY [facility] Last Admin: 07/14/17 08:33 Dose: 20 mg Hydromorphone HCl (Dilaudid) 1 mg IVP Q4 PRN PRN Reason: Pain, severe (8-10) Last Admin: 07/14/17 12:01 Dose: 1 mg Cefepime HCl 2 gm/ Sodium (Chloride) 100 mls @ 100 mls/hr IVPB Q8 [facility] PRN Reason: Protocol Last Admin: 07/14/17 08:35 Dose: 100 mls/hr Linezolid 600 mg in NS 300 ml (Zyvox 600mg/300ml Ns) 600 mg in 300 mls @ 300 mls/hr IVPB Q12 [facility] PRN Reason: Protocol Last Admin: 07/14/17 08:35 Dose: 300 mls/hr Amiodarone HCl 450 mg/ Sodium (Chloride) 259 mls @ 34.53 mls/hr IVPB .Q7H31M [facility]; 1 MG/MIN PRN Reason: Protocol Last Admin: 07/14/17 01:00 Dose: 34.53 mls/hr Mupirocin (Bactroban Ointment) 1 applic TOP BID [facility] Last Admin: 07/14/17 16:23 Dose: 1 applic Ondansetron HCl (Zofran Inj) 4 mg IVP Q6H PRN PRN Reason: Nausea/Vomiting Last Admin: 07/13/17 21:22 Dose: 4 mg Pantoprazole Sodium (Protonix Inj) 40 mg IVP DAILY [facility] Last Admin: 07/14/17 08:33 Dose: 40 mg Saccharomyces Boulardii (Florastor) 250 mg PO BID [facility] Last Admin: 07/14/17 08:32 Dose: 250 mg Sodium Phosphate (Fleet Enema) 135 ml MA Q6 [facility] Last Admin: 07/14/17 12:13 Dose: 135 ml - Labs Labs: 07/14/17 04:27 07/14/17 04:27 PT 27.1 Seconds (9.8-13.1) H 07/14/17 04:27 INR 2.5 (0.9-1.2) H 07/14/17 04:27 APTT 31.0 Seconds (25.6-37.1) 07/08/17 00:50 Assessment and Plan (1) Abdominal pain Status: Acute (2) COPD (chronic obstructive pulmonary disease) Status: Acute (3) Essential (primary) hypertension Status: Acute (4) Hx of atrial fibrillation, no current medication Status: Acute (5) Intestinal perforation Status: Acute (6) Perforated abdominal viscus Status: Acute - Assessment and Plan (Free Text) Plan: I was present during evaluation and discussed with Dr Jamari shine plans of care. Bronson Castaneda M.D.
[2017-07-10 10:22] LABS: BANDS 13 % (0-2); LYMPHOCYTE 8 % (20-50); MONOCYTE 1 % (0-10); NEUTROPHIL 78 % (42-75); PLATELET ESTIMATE NORMAL (NORMAL); TOTAL CELLS COUNTED 100
--- NOTE | 2017-07-10 10:23 | PQF GENQUE ---
Dr. Castaneda, 2 queries: Please specify location of pressure ulcer: if in agreement with warehouse freight handler Body site(s) involved Laterality (bilateral, left, right) Other (please specify) Clinically unable to determine Unknown Unknown 2. . Please specify stage of each pressure ulcer (National Pressure Ulcer Advisory Panel definitions): Stage I: Intact skin with non-blanchable redness of a localized area Stage II: Partial thickness skin loss involving dermis with a shallow open ulcer or an open serum-filled blister Stage III: Full thickness skin loss involving damage or necrosis of subcutaneous tissue Stage IV: Full thickness skin loss with exposed bone, tendon or muscle Unstageable: Full thickness tissue loss in which the base of the of ulcer is covered by slough and/or eschar in the wound bed Deep tissue Injury (DTI):Purple or maroon localized area of intact skin due to damage of underlying soft tissue from pressure and/or shear Other (please specify) Clinically unable to determine Unknown 3. If ulcer is not due to pressure, please specify other cause of ulcer (e.g., diabetes, PVD, varicose veins) Nurses note: 07/09@ 22:30; Pressure Ulcer Assessment: non-blanchable redness: sacrum This form is a permanent part of the medical record Clarification of your documentation is requested to better reflect the severity of illness and intensity of treatment of your patient. Indicators present [] Specify: [] [] Specify: [] [] Specify: [] [] Specify: [] Location in the medical record that reflects the above clinical findings: [] Treatment Provided: [] PHYSICIAN'S RESPONSE Based on your medical judgment of the clinical indicators outlined above please clarify the following: [] Practitioner response [] If unable to determine, please check the box, sign and date. Present On Admission (POA) Indicator: [] Present at the time of admission [] Not present at the time of admission [] Clinically Undetermined In responding to this query, please exercise your independent professional judgment. The fact that a question is asked does not imply that any particular answer is desired or expected. Thank you for your clarification on this documentation. If you have any questions please call. * Thank you, Abby Miller RN ext. #[phone] MTDD
[2017-07-10 10:24] LABS: ANISOCYTOSIS SLIGHT; BURR CELLS MODERATE; GIANT PLATELETS PRESENT; LARGE PLATELETS PRESENT; POIKILOCYTOSIS MODERATE; SPHEROCYTES SLIGHT; TEARDROP CELLS SLIGHT
--- NOTE | 2017-07-10 11:47 | CP.PCM.PN ---
Subjective - Date & Time of Evaluation Date of Evaluation: 07/09/17 Time of Evaluation: 09:30 - Subjective Subjective: Patient on intubation Noted very low urine output for the last 12 hrs. Has no fever On Levophed and iv antibiotics Noted surgical finding of jejunal perforation Objective - Vital Signs/Intake and Output Vital Signs (last 24 hours): Temp Pulse Resp BP Pulse Ox 98.3 F 115 H 20 103/49 L 100 07/10/17 08:00 07/10/17 11:00 07/10/17 11:00 07/10/17 11:00 07/10/17 11:00 Intake and Output: 07/10/17 07/10/17 06:59 18:59 Intake Total 3618 1420 Output Total 1155 200 Balance 2463 1220 - Medications Medications: Current Medications Albuterol/Ipratropium (Duoneb 3 Mg/0.5 Mg (3 Ml) Ud) 3 ml INH RQ6 [facility] Last Admin: 07/10/17 08:34 Dose: 3 ml Metronidazole (Flagyl 500mg/100ml Ns) 100 mls @ 100 mls/hr IVPB Q8 [facility] PRN Reason: Protocol Last Admin: 07/10/17 08:23 Dose: 100 mls/hr Multivitamins/Vitamin C 5 ml/ (Lactated Ringer's) 1,005 mls @ 100 mls/hr IV .Q10H3M [facility] Last Admin: 07/09/17 02:00 Dose: 100 mls/hr Sodium Bicarbonate 100 meq/ (Dextrose) 1,100 mls @ 100 mls/hr IV .Q11H [facility] Stop: 07/10/17 13:40 Last Admin: 07/10/17 01:06 Dose: 100 mls/hr Lactated Ringer's (Lactated Ringer's) 1,000 mls @ 150 mls/hr IV .Q6H40M [facility] Last Admin: 07/10/17 00:59 Dose: 150 mls/hr Fentanyl 1,000 mcg/ Sodium (Chloride) 100 mls @ 5 mls/hr IV .Q20H [facility] Stop: 07/10/17 13:44 Last Admin: 07/09/17 17:57 Dose: 5 mls/hr Diltiazem HCl 125 mg/ Sodium (Chloride) 125 mls @ 5 mls/hr IV .Q24H [facility]; 5 MG/ HR PRN Reason: Protocol Stop: 07/10/17 18:09 Last Titration: 07/10/17 06:08 Dose: 2.5 mg/hr, 2.5 mls/hr Norepinephrine Bitartrate 8 mg (/ Dextrose) 508 mls @ 57.15 mls/hr IV .Q8H54M [facility]; 15 MCG/MIN PRN Reason: Protocol Last Titration: 07/10/17 05:45 Dose: 10 mcg/min, 38.1 mls/hr Vancomycin HCl 1 gm/ Sodium (Chloride) 250 mls @ 166.667 mls/hr IVPB Q12 [facility] PRN Reason: Protocol Meropenem 1 gm/ Sodium (Chloride) 100 mls @ 100 mls/hr IVPB Q8 [facility] PRN Reason: Protocol Mupirocin (Bactroban Ointment) 1 applic TOP BID [facility] Last Admin: 07/10/17 08:14 Dose: 1 applic Ondansetron HCl (Zofran Inj) 4 mg IVP Q6H PRN PRN Reason: Nausea/Vomiting Last Admin: 07/08/17 04:24 Dose: 4 mg Pantoprazole Sodium (Protonix Inj) 40 mg IVP DAILY [facility] Last Admin: 07/10/17 08:14 Dose: 40 mg - Labs Labs: 07/10/17 04:20 07/10/17 04:20 PT 12.7 Seconds (9.8-13.1) 07/08/17 00:50 INR 1.1 (0.9-1.2) 07/08/17 00:50 APTT 31.0 Seconds (25.6-37.1) 07/08/17 00:50 - Head Exam Head Exam: NORMAL INSPECTION - Eye Exam Eye Exam: Normal appearance - ENT Exam ENT Exam: Mucous Membranes Moist - Respiratory Exam Respiratory Exam: Clear to Ausculation Bilateral - Cardiovascular Exam Cardiovascular Exam: Irregular Rhythm - GI/Abdominal Exam Additional comments: no bowel sounds yet Assessment and Plan (1) Abdominal pain Status: Acute (2) COPD (chronic obstructive pulmonary disease) Status: Acute (3) Essential (primary) hypertension Status: Acute (4) Hx of atrial fibrillation, no current medication Status: Acute (5) Intestinal perforation Status: Acute (6) Perforated abdominal viscus Status: Acute - Assessment and Plan (Free Text) Plan: Cont iv antibiotics cont levophed cont ICU follow up cardiology and pulmonary monitor Is and O;s maintain at 150 cc saline
[2017-07-10 11:54] LABS: ABG ALLEN TEST YES; ARTERIAL BLOOD GAS HCO3 23.4 mmol/L (21-28); ARTERIAL BLOOD GAS HEMOGLOBIN 10.4 g/dL (11.7-17.4); ARTERIAL BLOOD GAS O2 CAPACITY 14.5 mL/dL (16-24); ARTERIAL BLOOD GAS O2 CONTENT 14.2 ML/dL (15-23); ARTERIAL BLOOD GAS O2 SAT 97.7 % (95-98); ARTERIAL BLOOD GAS PCO2 31 mm/Hg (35-45); ARTERIAL BLOOD GAS PH 7.45 (7.35-7.45); ARTERIAL BLOOD GAS PO2 105 mm/Hg (80-100); ARTERIAL BLOOD GAS TCO2 22.5 mmol/L (22-28)
[2017-07-10] MEDS ORDERED: Albuterol-Ipratrop 3 mg / 0.5 (3 ml) UD INH STA (12:06)
--- NOTE | 2017-07-10 12:18 | CP.PCM.CON ---
History of Present Illness - History of Present Illness History of Present Illness: 72yo M with PMHx of HTN, COPD, DVT, A.Fib, chronic back pain here for evaluation of abdominal pain. Patient states that the pain started this morning , he went to the bathroom and had a large BM, non bloody, non melanotic. He then went to the couch to watch TV, soon after he noted severe, sudden abdominal pain, located initially on the left side of the abdomen and soon became generalized throughout his abdomen. 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 "Ex Lap for removal of non-malignant tumor resection in stomach many years ago" (?Partial gastrectomy). Back surgery. Bilateral Hip surgeries. IVC filter Family Hx: non-contributory Social Hx: Previous heavy ETOH use, last reported use 1986. Prior heavy tobacco use. No illicit drugs. Lives alone NKDA discussed with Dr Kauffman on rounds IV rx adjusted Review of Systems - Review of Systems All systems: reviewed and no additional remarkable complaints except - Constitutional Constitutional: As Per HPI - EENT Eyes: absent: As Per HPI, Blind Spots, Blurred Vision, Change in Vision, Decreased Night Vision, Diplopia, Discharge, Dry Eye, Exophthalmos, Floaters, Irritation, Itchy Eyes, Loss of Peripheral Vision, Pain, Photophobia, Requires Corrective Lenses, Sees Flashes, Spots in Vision, Tunnel Vision, Other Visual Disturbances, Loss of Vision, Other Ears: absent: As Per HPI, Decreased Hearing, Ear Discharge, Ear Pain, Tinnitus, Abnormal Hearing, Disequilibrium, Dizziness, Other Nose/Mouth/Throat: absent: As Per HPI, Epistaxis, Nasal Congestion, Nasal Discharge, Nasal Obstruction, Nasal Trauma, Nose Pain, Post Nasal Drip, Sinus Pain, Sinus Pressure, Bleeding Gums, Change in Voice, Dental Pain, Dry Mouth, Dysphagia, Halitosis, Hoarsness, Lip Swelling, Mouth Lesions, Mouth Pain, Odynophagia, Sore Throat, Throat Swelling, Tongue Swelling, Facial Pain, Neck Pain, Neck Mass, Other - Cardiovascular Cardiovascular: absent: As Per HPI, Acrocyanosis, Chest Pain, Chest Pain at Rest , Chest Pain with Activity, Claudication, Diaphoresis, Dyspnea, Dyspnea on Exertion, Edema, Irregular Heart Rhythm, Pain Radiating to Arm/Neck/Jaw, Leg Edema, Leg Ulcers, Lightheadedness, Orthopnea, Palpitations, Paroxysmal Nocturnal Dyspnea, Pedal Edema, Radiating Pain, Rapid Heart Rate, Slow Heart Rate, Syncope, Other - Respiratory Respiratory: absent: As Per HPI, Cough, Dyspnea, Hemoptysis, Dyspnea on Exertion , Wheezing, Snoring, Stridor, Pain on Inspiration, Chest Congestion, Excessive Mucous Production, Change in Mucous Color, Pain with Coughing, Other - Gastrointestinal Gastrointestinal: As Per HPI - Genitourinary Genitourinary: absent: As Per HPI, Change in Urinary Stream, Difficulty Urinating, Dysuria, Flank Pain, Hematuria, Pyuria, Nocturia, Urinary Incontinence, Urinary Frequency, Urinary Hesitance, Urinary Urgency, Voiding Freq/Small Amts, Freq UTI, Hx Renal/Bladder Calculi, Hx /Renal Surgery, Bladder Distension, Other - Musculoskeletal Musculoskeletal: absent: As Per HPI, Abnormal Gait, Arthralgias, Atrophy, Back Pain, Deformity, Joint Swelling, Limited Range of Motion, Loss of Height, Muscle Cramps, Muscle Weakness, Myalgias, Neck Pain, Numbness, Radiating Pain into Limb, Stiffness, Tingling, Other - Integumentary Integumentary: absent: As Per HPI, Acne, Alopecia, Bleeding Lesions, Change in Hair, Change in Nails, Change in Pigmentation, Changing Lesions, Dry Skin, Erythema, Furuncle, Hirsutism, Lesions, New Lesions, Non-Healing Lesions, Photosensitivity, Pruritus, Rash, Skin Pain, Skin Ulcer, Sores, Striae, Swelling , Unusual Bruising, Wounds, Jaundice, Other - Neurological Neurological: absent: As Per HPI, Abnormal Gait, Abnormal Hearing, Abnormal Movements, Abnormal Speech, Behavioral Changes, Burning Sensations, Confusion, Convulsions, Disequilibrium, Dizziness, Numbness, Focal Weakness, Frequent Falls , Headaches, Lack of Coordination, Loss of Vision, Memory Loss, Paresthesias, Radicular Pain, Restless Legs, Sensory Deficit, Syncope, Tingling, Tremor, Vertigo, Weakness, Other Visual Disturbances, Other - Psychiatric Psychiatric: absent: As Per HPI, Abnormal Sleep Pattern, Anhedonia, Anxiety, Auditory Hallucinations, Behavioral Changes, Change in Appetite, Change in Libido, Confusion, Depression, Difficulty Concentrating, Hallucinations, Homicidal Ideation, Hopelessness, Irritability, Memory Loss, Mood Swings, Panic Attacks, Paranoia, Suicidal Ideation, Visual Hallucinations, Tactile Hallucinations, Other - Endocrine Endocrine: absent: As Per HPI, Change in Body Appearance, Change in Libido, Cold Intolorance, Deepening of Voice, Excessive Sweating, Fatigue, Flushing, Heat Intolorance, Increase in Ring/Shoe/Hat Size, Palpitations, Polydipsia, Polyphagia, Polyuria, Other - Hematologic/Lymphatic Hematologic: absent: As Per HPI, Easy Bleeding, Easy Bruising, Lymphadenopathy, Other Past Patient History - Infectious Disease Hx of Infectious Diseases: None - Tetanus Immunizations Tetanus Immunization: Unknown - Past Medical History & Family History Past Medical History?: Yes - Past Social History Smoking Status: Former Smoker Alcohol: None Drugs: Denies Home Situation {Lives}: Alone - CARDIAC Hx Atrial Fibrillation: Yes Hx Hypertension: Yes - PULMONARY Hx Chronic Obstructive Pulmonary Disease (COPD): Yes Hx Pneumonia: Yes - NEUROLOGICAL Hx Neurological Disorder: No - HEENT Hx HEENT Problems: Yes Other/Comment: Glasses - RENAL Hx Chronic Kidney Disease: No - ENDOCRINE/METABOLIC Hx Endocrine Disorders: No - HEMATOLOGICAL/ONCOLOGICAL Hx Human Immunodeficiency Virus (HIV): No - INTEGUMENTARY Hx Dermatological Problems: No - MUSCULOSKELETAL/RHEUMATOLOGICAL Hx Arthritis: Yes Hx Fractures: Yes Hx Rheumatoid Arthritis: Yes - GASTROINTESTINAL Hx Gastrointestinal Disorders: Yes Hx Ulcer: Yes - GENITOURINARY/GYNECOLOGICAL Hx Genitourinary Disorders: No - PSYCHIATRIC Hx Psychophysiologic Disorder: No Hx Substance Use: No - SURGICAL HISTORY Hx Cholecystectomy: Yes - ANESTHESIA Hx Anesthesia: Yes Hx Anesthesia Reactions: No Hx Malignant Hyperthermia: No Meds Allergies/Adverse Reactions: Allergies Allergy/AdvReac Type Severity Reaction Status Date / Time No Known Allergies Allergy Verified 07/07/17 14:40 - Medications Medications: Current Medications Albuterol/Ipratropium (Duoneb 3 Mg/0.5 Mg (3 Ml) Ud) 3 ml INH RQ6 [facility] Last Admin: 07/10/17 08:34 Dose: 3 ml Metronidazole (Flagyl 500mg/100ml Ns) 100 mls @ 100 mls/hr IVPB Q8 [facility] PRN Reason: Protocol Last Admin: 07/10/17 08:23 Dose: 100 mls/hr Multivitamins/Vitamin C 5 ml/ (Lactated Ringer's) 1,005 mls @ 100 mls/hr IV .Q10H3M [facility] Last Admin: 07/09/17 02:00 Dose: 100 mls/hr Sodium Bicarbonate 100 meq/ (Dextrose) 1,100 mls @ 100 mls/hr IV .Q11H [facility] Stop: 07/10/17 13:40 Last Admin: 07/10/17 01:06 Dose: 100 mls/hr Lactated Ringer's (Lactated Ringer's) 1,000 mls @ 150 mls/hr IV .Q6H40M [facility] Last Admin: 07/10/17 00:59 Dose: 150 mls/hr Fentanyl 1,000 mcg/ Sodium (Chloride) 100 mls @ 5 mls/hr IV .Q20H ONE Stop: 07/10/17 13:44 Last Admin: 07/09/17 17:57 Dose: 5 mls/hr Diltiazem HCl 125 mg/ Sodium (Chloride) 125 mls @ 5 mls/hr IV .Q24H ONE; 5 MG/ HR PRN Reason: Protocol Stop: 07/10/17 18:09 Last Titration: 07/10/17 06:08 Dose: 2.5 mg/hr, 2.5 mls/hr Norepinephrine Bitartrate 8 mg (/ Dextrose) 508 mls @ 57.15 mls/hr IV .Q8H54M [facility]; 15 MCG/MIN PRN Reason: Protocol Last Titration: 07/10/17 05:45 Dose: 10 mcg/min, 38.1 mls/hr Vancomycin HCl 1 gm/ Sodium (Chloride) 250 mls @ 166.667 mls/hr IVPB Q12 [facility] PRN Reason: Protocol Meropenem 1 gm/ Sodium (Chloride) 100 mls @ 100 mls/hr IVPB Q8 [facility] PRN Reason: Protocol Mupirocin (Bactroban Ointment) 1 applic TOP BID [facility] Last Admin: 07/10/17 08:14 Dose: 1 applic Ondansetron HCl (Zofran Inj) 4 mg IVP Q6H PRN PRN Reason: Nausea/Vomiting Last Admin: 07/08/17 04:24 Dose: 4 mg Pantoprazole Sodium (Protonix Inj) 40 mg IVP DAILY [facility] Last Admin: 07/10/17 08:14 Dose: 40 mg Physical Exam - Constitutional Appears: In Acute Distress, Cachectic - Head Exam Head Exam: ATRAUMATIC, NORMOCEPHALIC - Eye Exam Eye Exam: PERRL. absent: Scleral icterus - ENT Exam ENT Exam: Mucous Membranes Dry - Neck Exam Neck exam: Negative for: Lymphadenopathy - Respiratory Exam Respiratory Exam: Decreased Breath Sounds, Rhonchi - Cardiovascular Exam Cardiovascular Exam: REGULAR RHYTHM, +S1, +S2 - GI/Abdominal Exam GI & Abdominal Exam: Diminished Bowel Sounds - Rectal Exam Rectal Exam: Deferred - Exam Exam: NORMAL INSPECTION - Extremities Exam Extremities exam: Negative for: pedal edema - Back Exam Back exam: absent: CVA tenderness (L), CVA tenderness (R), paraspinal tenderness - Neurological Exam Neurological exam: Alert, CN II-XII Intact, Oriented x3, Reflexes Normal - Psychiatric Exam Psychiatric exam: Depressed - Skin Skin Exam: Dry Results - Vital Signs Recent Vital Signs: Last Vital Signs Temp 98.3 F 07/10/17 08:00 Pulse 115 H 07/10/17 11:00 Resp 20 07/10/17 11:00 BP 103/49 L 07/10/17 11:00 Pulse Ox 100 07/10/17 11:00 - Labs Result Diagrams: 07/11/17 04:20 07/11/17 04:20 Labs: Laboratory Results - last 24 hr 07/09/17 07/09/17 07/09/17 17:59 19:40 22:21 WBC RBC Hgb Hct MCV MCH MCHC RDW Plt Count MPV Neut % (Auto) Lymph % (Auto) [place] % (Auto) Eos % (Auto) Baso % (Auto) Neut # (Auto) Lymph # (Auto) [place] # (Auto) Eos # (Auto) Baso # (Auto) Neutrophils % (Manual) Band Neutrophils % Lymphocytes % (Manual) Monocytes % (Manual) Platelet Estimate Large Platelets Giant Platelets Poikilocytosis (manual Anisocytosis (manual) Spherocytes Tear Drop Cells Donnie Cells pCO2 32 L pO2 162 H HCO3 22.6 ABG pH 7.42 ABG Total CO2 21.8 L ABG O2 Saturation 98.2 H ABG O2 Content 15.5 ABG Base Excess -3.0 L ABG Hemoglobin 11.2 L ABG Carboxyhemoglobin 0.6 POC ABG HHb (Measured) 1.8 ABG Methemoglobin 1.2 ABG O2 Capacity 15.8 L Perry Test Yes A-a O2 Difference 155.0 Hgb O2 Saturation 96.5 Vent Mode A/c Mechanical Rate 20 FiO2 50.0 Tidal Volume 500 PEEP 5 Pressure Support CPAP Sodium Potassium Chloride Carbon Dioxide Anion Gap BUN Creatinine Est GFR ( Amer) Est GFR (Non-Af Amer) POC Glucose (mg/dL) 231 H 217 H Random Glucose Calcium Phosphorus Magnesium Total Bilirubin AST ALT Alkaline Phosphatase Total Protein Albumin Globulin Albumin/Globulin Ratio 07/10/17 07/10/17 07/10/17 04:00 04:20 04:20 WBC 6.3 D RBC 3.23 L Hgb 10.7 L Hct 31.0 L MCV 95.8 H MCH 32.9 H MCHC 34.4 RDW 17.1 H Plt Count 134 MPV 7.4 Neut % (Auto) 90.7 H Lymph % (Auto) 6.5 L Nicholas % (Auto) 2.4 Eos % (Auto) 0.3 Baso % (Auto) 0.1 Neut # (Auto) 5.7 Lymph # (Auto) 0.4 L Nicholas # (Auto) 0.1 Eos # (Auto) 0.0 Baso # (Auto) 0.0 Neutrophils % (Manual) 78 H Band Neutrophils % 13 H* Lymphocytes % (Manual) 8 L Monocytes % (Manual) 1 Platelet Estimate Normal Large Platelets Present Giant Platelets Present Poikilocytosis (manual Moderate Anisocytosis (manual) Slight Spherocytes Slight Tear Drop Cells Slight [place] Cells Moderate pCO2 31 L pO2 85 HCO3 24.0 ABG pH 7.46 H ABG Total CO2 23.0 ABG O2 Saturation 97.0 ABG O2 Content 14.7 L ABG Base Excess -1.2 ABG Hemoglobin 10.9 L ABG Carboxyhemoglobin 0.8 POC ABG HHb (Measured) 2.9 ABG Methemoglobin 1.3 ABG O2 Capacity 15.2 L Perry Test Yes A-a O2 Difference 126.0 Hgb O2 Saturation 95.0 Vent Mode A/c Mechanical Rate 20 FiO2 35.0 Tidal Volume 550 PEEP 5 Pressure Support CPAP Sodium 131 L Potassium 3.2 L Chloride 97 L Carbon Dioxide 22 Anion Gap 15 BUN 31 H Creatinine 1.2 Est GFR ( Amer) > 60 Est GFR (Non-Af Amer) 60 POC Glucose (mg/dL) Random Glucose 194 H Calcium 6.1 L Phosphorus 3.6 Magnesium 1.8 Total Bilirubin 0.5 AST 72 H ALT 67 Alkaline Phosphatase 65 Total Protein 3.8 L Albumin 1.6 L Globulin 2.2 Albumin/Globulin Ratio 0.7 L 07/10/17 07/10/17 07/10/17 04:30 11:37 11:42 WBC RBC Hgb Hct MCV MCH MCHC RDW Plt Count MPV Neut % (Auto) Lymph % (Auto) [place] % (Auto) Eos % (Auto) Baso % (Auto) Neut # (Auto) Lymph # (Auto) Nicholas # (Auto) Eos # (Auto) Baso # (Auto) Neutrophils % (Manual) Band Neutrophils % Lymphocytes % (Manual) Monocytes % (Manual) Platelet Estimate Large Platelets Giant Platelets Poikilocytosis (manual Anisocytosis (manual) Spherocytes Tear Drop Cells Donnie Cells pCO2 31 L pO2 105 H HCO3 23.4 ABG pH 7.45 ABG Total CO2 22.5 ABG O2 Saturation 97.7 ABG O2 Content 14.2 L ABG Base Excess -1.9 ABG Hemoglobin 10.4 L ABG Carboxyhemoglobin 0.6 POC ABG HHb (Measured) 2.3 ABG Methemoglobin 1.2 ABG O2 Capacity 14.5 L Perry Test Yes A-a O2 Difference 141.0 Hgb O2 Saturation 95.8 Vent Mode Mechanical Rate FiO2 40.0 Tidal Volume PEEP Pressure Support 10 CPAP 5 Sodium Potassium Chloride Carbon Dioxide Anion Gap BUN Creatinine Est GFR ( Amer) Est GFR (Non-Af Amer) POC Glucose (mg/dL) 209 H 148 H Random Glucose Calcium Phosphorus Magnesium Total Bilirubin AST ALT Alkaline Phosphatase Total Protein Albumin Globulin Albumin/Globulin Ratio Assessment & Plan (1) Abdominal pain Status: Acute (2) COPD (chronic obstructive pulmonary disease) Status: Acute (3) Essential (primary) hypertension Status: Acute (4) Hx of atrial fibrillation, no current medication Status: Acute (5) Intestinal perforation Status: Acute (6) Perforated abdominal viscus Status: Acute (7) Sepsis Status: Acute - Assessment and Plan (Free Text) Assessment: started empiric IV antibiotics poor prognosis
--- NOTE | 2017-07-10 13:43 | CP.PCM.CON ---
History of Present Illness - History of Present Illness History of Present Illness: Called to evaluate patiet s/p abdo surgery 2/2 perforation of viscus. Now intubated on Mechanical ventilation. Patient reamns acidimec and on pressors. Hx of COPD A-fib. Pos hx of tobacco use. FH: NC PE: Elderly male on ventilator; sedated. Head: Neg Adeno Pos Bhavik Heart Irreg Rate and Rhythm Lungs: Distant BS and some rhonchi which change with tidal volume. Abdo Soft, hypoactive BS. Ext: No C,C,E Neruo: Patient sedatied. Labs see below. a/p: Aucte Resp Fail s/p Abdo surgery ? Pneumona Would not extubate while still on pressors and acidemic. Can try SBT's if sedation is minimized. Monitor ABG/s. Cont Abx and monitor Temp curve and pancultures. Cont BD via nebs. PUD and DVT Px. Past Patient History - Infectious Disease Hx of Infectious Diseases: None - Tetanus Immunizations Tetanus Immunization: Unknown - Past Medical History & Family History Past Medical History?: Yes - Past Social History Smoking Status: Former Smoker Alcohol: None Drugs: Denies Home Situation {Lives}: Alone - CARDIAC Hx Atrial Fibrillation: Yes Hx Hypertension: Yes - PULMONARY Hx Chronic Obstructive Pulmonary Disease (COPD): Yes Hx Pneumonia: Yes - NEUROLOGICAL Hx Neurological Disorder: No - HEENT Hx HEENT Problems: Yes Other/Comment: Glasses - RENAL Hx Chronic Kidney Disease: No - ENDOCRINE/METABOLIC Hx Endocrine Disorders: No - HEMATOLOGICAL/ONCOLOGICAL Hx Human Immunodeficiency Virus (HIV): No - INTEGUMENTARY Hx Dermatological Problems: No - MUSCULOSKELETAL/RHEUMATOLOGICAL Hx Arthritis: Yes Hx Fractures: Yes Hx Rheumatoid Arthritis: Yes - GASTROINTESTINAL Hx Gastrointestinal Disorders: Yes Hx Ulcer: Yes - GENITOURINARY/GYNECOLOGICAL Hx Genitourinary Disorders: No - PSYCHIATRIC Hx Psychophysiologic Disorder: No Hx Substance Use: No - SURGICAL HISTORY Hx Cholecystectomy: Yes - ANESTHESIA Hx Anesthesia: Yes Hx Anesthesia Reactions: No Hx Malignant Hyperthermia: No Meds Allergies/Adverse Reactions: Allergies Allergy/AdvReac Type Severity Reaction Status Date / Time No Known Allergies Allergy Verified 07/07/17 14:40 - Medications Medications: Current Medications Albuterol/Ipratropium (Duoneb 3 Mg/0.5 Mg (3 Ml) Ud) 3 ml INH RQ6 [facility] Last Admin: 07/10/17 08:34 Dose: 3 ml Metronidazole (Flagyl 500mg/100ml Ns) 100 mls @ 100 mls/hr IVPB Q8 [facility] PRN Reason: Protocol Last Admin: 07/10/17 08:23 Dose: 100 mls/hr Multivitamins/Vitamin C 5 ml/ (Lactated Ringer's) 1,005 mls @ 100 mls/hr IV .Q10H3M [facility] Last Admin: 07/09/17 02:00 Dose: 100 mls/hr Sodium Bicarbonate 100 meq/ (Dextrose) 1,100 mls @ 100 mls/hr IV .Q11H [facility] Stop: 07/10/17 13:40 Last Admin: 07/10/17 01:06 Dose: 100 mls/hr Lactated Ringer's (Lactated Ringer's) 1,000 mls @ 150 mls/hr IV .Q6H40M [facility] Last Admin: 07/10/17 00:59 Dose: 150 mls/hr Fentanyl 1,000 mcg/ Sodium (Chloride) 100 mls @ 5 mls/hr IV .Q20H [facility] Stop: 07/10/17 13:44 Last Admin: 07/09/17 17:57 Dose: 5 mls/hr Diltiazem HCl 125 mg/ Sodium (Chloride) 125 mls @ 5 mls/hr IV .Q24H [facility]; 5 MG/ HR PRN Reason: Protocol Stop: 07/10/17 18:09 Last Titration: 07/10/17 06:08 Dose: 2.5 mg/hr, 2.5 mls/hr Norepinephrine Bitartrate 8 mg (/ Dextrose) 508 mls @ 57.15 mls/hr IV .Q8H54M [facility]; 15 MCG/MIN PRN Reason: Protocol Last Titration: 07/10/17 05:45 Dose: 10 mcg/min, 38.1 mls/hr Vancomycin HCl 1 gm/ Sodium (Chloride) 250 mls @ 166.667 mls/hr IVPB Q12 [facility] PRN Reason: Protocol Meropenem 1 gm/ Sodium (Chloride) 100 mls @ 100 mls/hr IVPB Q8 [facility] PRN Reason: Protocol Mupirocin (Bactroban Ointment) 1 applic TOP BID [facility] Last Admin: 07/10/17 08:14 Dose: 1 applic Ondansetron HCl (Zofran Inj) 4 mg IVP Q6H PRN PRN Reason: Nausea/Vomiting Last Admin: 07/08/17 04:24 Dose: 4 mg Pantoprazole Sodium (Protonix Inj) 40 mg IVP DAILY [facility] Last Admin: 07/10/17 08:14 Dose: 40 mg Results - Vital Signs Recent Vital Signs: Last Vital Signs Temp 98.5 F 07/10/17 12:00 Pulse 112 H 07/10/17 13:00 Resp 18 07/10/17 13:00 BP 107/47 L 07/10/17 13:00 Pulse Ox 100 07/10/17 13:00 - Labs Result Diagrams: 07/10/17 04:20 07/10/17 04:20 Labs: Laboratory Results - last 24 hr 07/09/17 07/09/17 07/09/17 17:59 19:40 22:21 WBC RBC Hgb Hct MCV MCH MCHC RDW Plt Count MPV Neut % (Auto) Lymph % (Auto) [place] % (Auto) Eos % (Auto) Baso % (Auto) Neut # (Auto) Lymph # (Auto) [place] # (Auto) Eos # (Auto) Baso # (Auto) Neutrophils % (Manual) Band Neutrophils % Lymphocytes % (Manual) Monocytes % (Manual) Platelet Estimate Large Platelets Giant Platelets Poikilocytosis (manual Anisocytosis (manual) Spherocytes Tear Drop Cells Donnie Cells pCO2 32 L pO2 162 H HCO3 22.6 ABG pH 7.42 ABG Total CO2 21.8 L ABG O2 Saturation 98.2 H ABG O2 Content 15.5 ABG Base Excess -3.0 L ABG Hemoglobin 11.2 L ABG Carboxyhemoglobin 0.6 POC ABG HHb (Measured) 1.8 ABG Methemoglobin 1.2 ABG O2 Capacity 15.8 L Perry Test Yes A-a O2 Difference 155.0 Hgb O2 Saturation 96.5 Vent Mode A/c Mechanical Rate 20 FiO2 50.0 Tidal Volume 500 PEEP 5 Pressure Support CPAP Sodium Potassium Chloride Carbon Dioxide Anion Gap BUN Creatinine Est GFR ( Amer) Est GFR (Non-Af Amer) POC Glucose (mg/dL) 231 H 217 H Random Glucose Calcium Phosphorus Magnesium Total Bilirubin AST ALT Alkaline Phosphatase Total Protein Albumin Globulin Albumin/Globulin Ratio 07/10/17 07/10/17 07/10/17 04:00 04:20 04:20 WBC 6.3 D RBC 3.23 L Hgb 10.7 L Hct 31.0 L MCV 95.8 H MCH 32.9 H MCHC 34.4 RDW 17.1 H Plt Count 134 MPV 7.4 Neut % (Auto) 90.7 H Lymph % (Auto) 6.5 L [place] % (Auto) 2.4 Eos % (Auto) 0.3 Baso % (Auto) 0.1 Neut # (Auto) 5.7 Lymph # (Auto) 0.4 L [place] # (Auto) 0.1 Eos # (Auto) 0.0 Baso # (Auto) 0.0 Neutrophils % (Manual) 78 H Band Neutrophils % 13 H* Lymphocytes % (Manual) 8 L Monocytes % (Manual) 1 Platelet Estimate Normal Large Platelets Present Giant Platelets Present Poikilocytosis (manual Moderate Anisocytosis (manual) Slight Spherocytes Slight Tear Drop Cells Slight Max Cells Moderate pCO2 31 L pO2 85 HCO3 24.0 ABG pH 7.46 H ABG Total CO2 23.0 ABG O2 Saturation 97.0 ABG O2 Content 14.7 L ABG Base Excess -1.2 ABG Hemoglobin 10.9 L ABG Carboxyhemoglobin 0.8 POC ABG HHb (Measured) 2.9 ABG Methemoglobin 1.3 ABG O2 Capacity 15.2 L Perry Test Yes A-a O2 Difference 126.0 Hgb O2 Saturation 95.0 Vent Mode A/c Mechanical Rate 20 FiO2 35.0 Tidal Volume 550 PEEP 5 Pressure Support CPAP Sodium 131 L Potassium 3.2 L Chloride 97 L Carbon Dioxide 22 Anion Gap 15 BUN 31 H Creatinine 1.2 Est GFR ( Amer) > 60 Est GFR (Non-Af Amer) 60 POC Glucose (mg/dL) Random Glucose 194 H Calcium 6.1 L Phosphorus 3.6 Magnesium 1.8 Total Bilirubin 0.5 AST 72 H ALT 67 Alkaline Phosphatase 65 Total Protein 3.8 L Albumin 1.6 L Globulin 2.2 Albumin/Globulin Ratio 0.7 L 07/10/17 07/10/17 07/10/17 04:30 11:37 11:42 WBC RBC Hgb Hct MCV MCH MCHC RDW Plt Count MPV Neut % (Auto) Lymph % (Auto) [place] % (Auto) Eos % (Auto) Baso % (Auto) Neut # (Auto) Lymph # (Auto) [place] # (Auto) Eos # (Auto) Baso # (Auto) Neutrophils % (Manual) Band Neutrophils % Lymphocytes % (Manual) Monocytes % (Manual) Platelet Estimate Large Platelets Giant Platelets Poikilocytosis (manual Anisocytosis (manual) Spherocytes Tear Drop Cells Max Cells pCO2 31 L pO2 105 H HCO3 23.4 ABG pH 7.45 ABG Total CO2 22.5 ABG O2 Saturation 97.7 ABG O2 Content 14.2 L ABG Base Excess -1.9 ABG Hemoglobin 10.4 L ABG Carboxyhemoglobin 0.6 POC ABG HHb (Measured) 2.3 ABG Methemoglobin 1.2 ABG O2 Capacity 14.5 L Perry Test Yes A-a O2 Difference 141.0 Hgb O2 Saturation 95.8 Vent Mode Mechanical Rate FiO2 40.0 Tidal Volume PEEP Pressure Support 10 CPAP 5 Sodium Potassium Chloride Carbon Dioxide Anion Gap BUN Creatinine Est GFR ( Amer) Est GFR (Non-Af Amer) POC Glucose (mg/dL) 209 H 148 H Random Glucose Calcium Phosphorus Magnesium Total Bilirubin AST ALT Alkaline Phosphatase Total Protein Albumin Globulin Albumin/Globulin Ratio
--- NOTE | 2017-07-10 13:49 | PCM.PROC ---
Procedures Attestation:: I certify that I have explained the specified Operation(s) or Procedure(s), risks, benefits and reasonable alternatives to the Patient and/or other person responsible. The opportunity was given to ask questions and all questions answered - Extubation Clinical Parameters: Resolution/Stabilization of disease process, Hemodynamically Stable, Intact Cough/Gag Reflex, Spontaneous Respirations, Acceptable Vent Settings (FIO2<50%, PEEP<8, PaO2>75, pH>7.25) Weaning Criteria Met: Yes General Weaning Approaches: Pressure Support Ventilation (PSV) Weaning Patient Condition: Patient has been successfully extubated and assessed Oxygen Therapy: O2 via Venti Mask Patient Tolerated Procedure: Well, No Complications
[2017-07-10] MEDS: Meropenem 1 GM in Sodium Chloride 0.9% 100 ML IVPB SCH ×2 (14:15→17:10)
[2017-07-10] MEDS: Morphine 4 MG/ML VIAL IVP PRN ×2 (18:49→22:47)
[2017-07-11] MEDS: Meropenem 1 GM in Sodium Chloride 0.9% 100 ML IVPB SCH ×2 (00:26→08:22)
[2017-07-11] MEDS: metroNIDAZOLE 500mg/100ml NS 100 ML IVPB SCH ×3 (00:27→16:14)
[2017-07-11] MEDS: Albuterol-Ipratrop 3 mg / 0.5 (3 ml) UD INH SCH ×4 (01:02→19:29)
[2017-07-11] MEDS: Morphine 4 MG/ML VIAL IVP PRN ×5 (02:49→20:40)
[2017-07-11] MEDS ORDERED: Dextrose 50% SYRINGE Inj (50 ml) IVP ONE (05:38)
[2017-07-11 05:42] LABS: ALB/GLOB RATIO 0.7 (1.0-2.1); ALBUMIN 1.5 g/dL (3.5-5.0); BLOOD UREA NITROGEN 27 mg/dl (9-20); CALCIUM 6.5 mg/dL (8.4-10.2); GFR AFRICAN-AMERICAN > 60; GFR NON-AFRICAN AMERICAN 60
[2017-07-11 05:43] LABS: ALT/SGPT 78 U/L (21-72); AST/SGOT 72 U/L (17-59)
[2017-07-11] MEDS: Lactated Ringer's 1,000 ML IV SCH ×2 (05:48→18:44)
[2017-07-11 05:57] LABS: BASO % 0.1 % (0.0-2.0); EOS # 0.1 K/uL (0.0-0.7); EOS % 2.3 % (0.0-4.0); HEMOGLOBIN 9.5 g/dL (12.0-18.0); LYMPH # 0.3 K/uL (1.0-4.3); LYMPH % 11.6 % (20.0-40.0); MEAN CELL VOLUME 96.2 fl (80.0-94.0); MEAN CORPUSCULAR HEMOGLOBIN 32.7 pg (27.0-31.0); MEAN PLATELET VOLUME 7.1 fl (7.2-11.7); MONO # 0.1 K/uL (0.0-0.8); MONO % 3.3 % (0.0-10.0); NEUT # 2.3 K/uL (1.8-7.0); NEUT % 82.7 % (50.0-75.0); NRBC % 0.1 % (0.0-0.0); RBC 2.91 Mil/uL (4.40-5.90); RED CELL DISTRIBUTION WIDTH 16.7 % (11.5-14.5); WHITE BLOOD COUNT 2.7 K/uL (4.8-10.8)
[2017-07-11] MEDS ORDERED: Potassium Phosphate 30 MMOLE in Sodium Chloride 0.9% 250 ML IV ONE (06:32)
--- NOTE | 2017-07-11 08:34 | PN ---
CRITICAL CARE PROGRESS NOTE DATE: 07/10/2017 LOCATION: The patient is in ICU, bed 425 TIME SPENT: 40 minutes. SUBJECTIVE: The patient is seen and evaluated at the bedside. Past medical, surgical, and social history reviewed. A 72-year-old male with history significant for hypertension, chronic obstructive pulmonary disease, chronic atrial fibrillation, deep venous thrombosis, status post IVC filter, chronic back and chronic hip pain, admitted with acute abdominal perforated viscus, status post exploratory laparotomy, primary end-to-end anastomosis, RAMIN drains x2, overnight on Levophed, Cardizem drip, fentanyl, IV fluids with Ringer's lactate, and D5W with sodium bicarbonate. OBJECTIVE: GENERAL: This morning; alert, awake, and off sedation, follows commands appropriate. Able to lift head of the bed. ABG; pre-extubation reviewed and found to be adequate. The patient was extubated, placed on Venti mask 50%, and saturating 100%. Alert and awake, follows commands appropriate. VITAL SIGNS: Temperature 98.5, heart rate 112, blood pressure 107/47, mean arterial pressure 67, respiratory rate 18, and saturation 100%. Intake 5688, output 2405, positive balance 3283. Weight 158 pounds. HEAD, EYES, EARS, NOSE AND THROAT: Pupils reactive. Conjunctivae pale. Sclerae white. NECK: Supple. CHEST: Bilateral breath sounds diminished in intensity. Clear to auscultation anteriorly and laterally. HEART: Rhythm irregular. No audible murmur, telemetry atrial fibrillation. ABDOMEN: Bowel sounds present, reduced in intensity, mildly distended. Abdominal binder in place. RAMIN x2 with moderate drainage. EXTREMITIES: Trace edema. No palpable cord. DP present, reduced in intensity. NEUROLOGIC: Nonfocal. CURRENT MEDICATIONS: Vancomycin 1 g IV q.12 hours, Flagyl 500 mg IV q.8 hours, meropenem 1 g IV q.8 hours, diltiazem drip at 5 mg/hour, Ringer's lactate 150 mL/hour, mupirocin, Bactroban ointment one application topically twice daily, Levophed at 2.5 mcg/minute, Protonix 40 IV daily, and Zofran 4 mg IV q.6 hours p.r.n. for nausea and vomiting. LABORATORY DATA: WBC 6.3, hemoglobin 10.7, hematocrit 31, platelet count 134, neutrophils 90.7, lymphocytes 6.5, and monocytes 72.4. PT 12.7, INR 1.1, and PTT 31. ABG; pH of 7.45, pCO2 of 31, pO2 of 105, saturation 97.7 on 40%, pressure support of 10, and CPAP of 5. SMA-7; sodium 131, potassium 3.2, chloride 97, CO2 of 22, blood urea nitrogen 31, creatinine 1.2, random glucose 148, calcium 6.1, phosphorus 3.6, magnesium 1.8, total bilirubin 0.5, AST 72, ALT 67, alkaline phosphatase 65, total protein 3.8, and albumin 1.6. Microbiology; nasal smear MRSA positive. Chest x-ray increased bibasilar atelectatic change, stable right apical scarring, hyperinflated lungs with a flattened diaphragm, no significant pleural effusion, atherosclerotic aortic calcification, endotracheal tube in place, and right IJ in place. IMPRESSION AND PLAN: Status post exploratory laparotomy, end-to-end anastomosis, resection of the small bowel for perforated bowel with peritonitis related sepsis, hypotension, on pressor support and IV fluid, remained intubated postoperatively, currently more wakeful, extubated, and doing well on 50% Venti mask. 1. Neurology: Remains alert and awake, follows commands appropriate, superimposed septic encephalopathy, resolving. 2. Pulmonary: Status post ventilator-dependent respiratory failure, extubated, doing well on Venti mask, and history of chronic obstructive pulmonary disease, on bronchodilator q.6 hours. 3. Gastrointestinal: Mild elevation of AST, possible secondary to cholestasis, continue to monitor. Continue gastrointestinal prophylaxis. 4. Renal. BUN and creatinine are improving. Continue IV hydration. Hypokalemia, supplement potassium and magnesium level is normal. 5. Endocrine. Maintain blood sugar less than 180. Continue Accu-Chek with regular insulin coverage. 6. Hematology: Anemia of chronic disease. No active gastrointestinal bleeding noted. We will continue to monitor hemoglobin support as needed. Continue practice, keep head of bed 40 degrees up, Russell in place for adequate urine output to prevent sacral . Chest incentive spirometry to prevent postoperative atelectasis. Chest PT every shift hours, wean off Levophed as tolerated to maintain mean arterial pressure of 65 and above, wean off Cardizem as to maintain heart rate 60 to 90. Roney Branch MD [facility] # [id number]
--- NOTE | 2017-07-11 10:43 | CP.PCM.PN ---
Addendum entered and electronically signed by Brandon Kauffman MD 07/11/17 11: 31: DTI poss non pressure related Sepsis likely present on admission Patient removed from vent Yesterday Original Note: <Brandon Kauffman - Last Filed: 07/11/17 11:24> Subjective - Date & Time of Evaluation Date of Evaluation: 07/11/17 Time of Evaluation: 09:40 - Subjective Subjective: S/p exploratory laparotomy with findings of perforated viscous. Small bowel resection with anastomosis POD#2. Alert, awake. Afebrile overnight. Band 13 Yesterday an Abx were modified. Extubated Yesterday. Urine output appropriate, color is dark. Patient c/o pain this morning in abd and r/neck area around central line. Objective - Vital Signs/Intake and Output Vital Signs (last 24 hours): Temp Pulse Resp BP Pulse Ox 98.3 F 115 H 20 99/51 L 100 07/11/17 08:00 07/11/17 10:00 07/11/17 10:00 07/11/17 10:00 07/11/17 10:00 Intake and Output: 07/11/17 07/11/17 06:59 18:59 Intake Total 1819 900 Output Total 800 500 Balance 1019 400 - Medications Medications: Current Medications Albuterol/Ipratropium (Duoneb 3 Mg/0.5 Mg (3 Ml) Ud) 3 ml INH RQ6 [facility] Last Admin: 07/11/17 07:27 Dose: 3 ml Metronidazole (Flagyl 500mg/100ml Ns) 100 mls @ 100 mls/hr IVPB Q8 [facility] PRN Reason: Protocol Last Admin: 07/11/17 08:22 Dose: 100 mls/hr Lactated Ringer's (Lactated Ringer's) 1,000 mls @ 150 mls/hr IV .Q6H40M [facility] Last Admin: 07/11/17 05:48 Dose: 150 mls/hr Vancomycin HCl 1 gm/ Sodium (Chloride) 250 mls @ 166.667 mls/hr IVPB Q12 [facility] PRN Reason: Protocol Last Admin: 07/11/17 08:26 Dose: 166.667 mls/hr Meropenem 1 gm/ Sodium (Chloride) 100 mls @ 100 mls/hr IVPB Q8 [facility] PRN Reason: Protocol Last Admin: 07/11/17 08:22 Dose: 100 mls/hr Diltiazem HCl 125 mg/ Sodium (Chloride) 125 mls @ 2.5 mls/hr IV .Q24H ONE; 2.5 MG/HR PRN Reason: Protocol Stop: 07/11/17 20:47 Last Admin: 07/10/17 22:56 Dose: 2.5 mg/hr, 2.5 mls/hr Morphine Sulfate (Morphine) 4 mg IVP Q4 PRN PRN Reason: Pain, severe (8-10) Last Admin: 07/11/17 08:25 Dose: 4 mg Mupirocin (Bactroban Ointment) 1 applic TOP BID [facility] Last Admin: 07/11/17 08:21 Dose: 1 applic Ondansetron HCl (Zofran Inj) 4 mg IVP Q6H PRN PRN Reason: Nausea/Vomiting Last Admin: 07/08/17 04:24 Dose: 4 mg Pantoprazole Sodium (Protonix Inj) 40 mg IVP DAILY [facility] Last Admin: 07/11/17 08:23 Dose: 40 mg - Labs Labs: 07/11/17 04:20 07/11/17 04:20 PT 12.7 Seconds (9.8-13.1) 07/08/17 00:50 INR 1.1 (0.9-1.2) 07/08/17 00:50 APTT 31.0 Seconds (25.6-37.1) 07/08/17 00:50 - Constitutional Appears: Chronically Ill - Eye Exam Eye Exam: PERRL - ENT Exam ENT Exam: Mucous Membranes Moist - Respiratory Exam Respiratory Exam: NORMAL BREATHING PATTERN. absent: Prolonged Expiratory Phase , Rhonchi, Wheezes, Respiratory Distress - Cardiovascular Exam Cardiovascular Exam: +S1, +S2. absent: Gallop - GI/Abdominal Exam GI & Abdominal Exam: Distended (slightly), Tenderness, Normal Bowel Sounds. absent: Rebound - Neurological Exam Neurological Exam: Alert, Awake, Oriented x3 - Skin Skin Exam: Warm. absent: Normal Color (DTI back.) Assessment and Plan - Assessment and Plan (Free Text) Assessment: Sepsis. On Francisco, Vanco and Flagyl MRSA + on Cx of nares S/P small bowel resection POD3 Acute leukopenia/trombocitopenia Afebrile ID consult appreciated Supportive measures Hem-Onc consult for eval of trombocitopenia Will discuss with ID for poss SE of Meropenen Monitor <Bronson Castaneda - Last Filed: 07/30/17 14:10> Objective - Vital Signs/Intake and Output Vital Signs (last 24 hours): Temp Pulse Resp BP Pulse Ox 98.3 F 70 30 H 116/73 100 07/30/17 12:00 07/30/17 12:17 07/30/17 12:00 07/30/17 12:17 07/30/17 12:00 Intake and Output: 07/30/17 07/30/17 06:59 18:59 Intake Total 1080 750 Output Total 810 Balance 270 750 - Medications Medications: Current Medications Acetaminophen (Tylenol 325mg Tab) 650 mg PO Q4 PRN PRN Reason: Pain, moderate (4-7) Furosemide (Lasix) 20 mg IVP DAILY [facility] Last Admin: 07/30/17 08:55 Dose: 20 mg Meropenem 1 gm/ Sodium (Chloride) 100 mls @ 100 mls/hr IVPB Q8 [facility] PRN Reason: Protocol Last Admin: 07/30/17 08:57 Dose: 100 mls/hr Micafungin Sodium 100 mg/ (Sodium Chloride) 100 mls @ 100 mls/hr IVPB DAILY [facility] PRN Reason: Protocol Last Admin: 07/30/17 08:58 Dose: 100 mls/hr Sodium Chloride 70 meq/Potassium Phosphate 30 mmole/Magnesium Sulfate 10 meq/ Calcium Gluconate 10 meq/Amino Acids 1,051.4683 mls @ 70 mls/hr IV .Q15H2M [facility] Stop: 07/30/17 23:01 Fat Emulsion Intravenous (Intralipid 20%) 250 mls @ 40 mls/hr IV .Q6H15M [facility] Stop: 07/30/17 16:29 Last Admin: 07/30/17 12:17 Dose: Not Given Potassium Chloride (Potassium Chloride 20 Meq/100 Ml) 100 mls @ 50 mls/hr IVPB Q2 [facility] Stop: 07/30/17 17:59 Last Admin: 07/30/17 12:19 Dose: 50 mls/hr Insulin Human Lispro (Humalog) 0 units SC Q6H [facility] PRN Reason: Protocol Last Admin: 07/30/17 12:15 Dose: 2 u Metoprolol Tartrate (Lopressor) 5 mg IVP 0000,0600,1200,1800 [facility] Last Admin: 07/30/17 12:17 Dose: 5 mg Morphine Sulfate (Morphine) 8 mg IVP Q4 PRN PRN Reason: Pain, moderate (4-7) Last Admin: 07/30/17 10:16 Dose: 8 mg Mupirocin (Bactroban Ointment) 1 applic TOP BID [facility] Last Admin: 07/30/17 08:54 Dose: 1 applic Octreotide Acetate (Sandostatin) 300 mcg SC Q8@0500,1300,2100 [facility] Last Admin: 07/30/17 12:20 Dose: 300 mcg Potassium Chloride (Potassium Chloride Oral Soln) 20 meq PO BID [facility] Last Admin: 07/23/17 09:05 Dose: Not Given - Labs Labs: 07/30/17 04:35 07/30/17 06:30 PT 15.9 Seconds (9.8-13.1) H 07/22/17 05:20 INR 1.4 (0.9-1.2) H 07/22/17 05:20 APTT 39.1 Seconds (25.6-37.1) H 07/22/17 05:20 Assessment and Plan (1) Abdominal pain Status: Acute (2) COPD (chronic obstructive pulmonary disease) Status: Acute (3) Essential (primary) hypertension Status: Acute (4) Hx of atrial fibrillation, no current medication Status: Acute (5) Intestinal perforation Status: Acute (6) Perforated abdominal viscus Status: Acute (7) Atrial fibrillation Status: Acute (8) Anemia Status: Acute (9) Thrombocytopenia Status: Acute (10) Abscess Status: Acute - Assessment and Plan (Free Text) Plan: I was present during evaluation and discussed with Dr Kauffman re plans of care and tx. Bronson Castaneda M.D.
--- NOTE | 2017-07-11 12:48 | CP.PCM.PN ---
<Delfino Lagos - Last Filed: 07/11/17 18:06> Subjective - Date & Time of Evaluation Date of Evaluation: 07/11/17 Time of Evaluation: 12:46 - Subjective Subjective: SURGERY PROGRESS NOTE FOR DR. WORTHY 72M seen and examined at bedside. Patient is AAOx3 and is in NAD. Denies of any acute overnight events. Denies of any pain now. Denies of having any F/N/V/C/SOB /CP. Denies of any other complains at this time. Objective - Vital Signs/Intake and Output Vital Signs (last 24 hours): Temp Pulse Resp BP Pulse Ox 98.3 F 126 H 18 113/54 L 100 07/11/17 12:00 07/11/17 12:00 07/11/17 12:00 07/11/17 12:00 07/11/17 12:00 Intake and Output: 07/11/17 07/11/17 06:59 18:59 Intake Total 1819 1200 Output Total 800 625 Balance 1019 575 - Medications Medications: Current Medications Albuterol/Ipratropium (Duoneb 3 Mg/0.5 Mg (3 Ml) Ud) 3 ml INH RQ6 [facility] Last Admin: 07/11/17 07:27 Dose: 3 ml Metronidazole (Flagyl 500mg/100ml Ns) 100 mls @ 100 mls/hr IVPB Q8 [facility] PRN Reason: Protocol Last Admin: 07/11/17 08:22 Dose: 100 mls/hr Lactated Ringer's (Lactated Ringer's) 1,000 mls @ 150 mls/hr IV .Q6H40M [facility] Last Admin: 07/11/17 05:48 Dose: 150 mls/hr Vancomycin HCl 1 gm/ Sodium (Chloride) 250 mls @ 166.667 mls/hr IVPB Q12 [facility] PRN Reason: Protocol Last Admin: 07/11/17 08:26 Dose: 166.667 mls/hr Meropenem 1 gm/ Sodium (Chloride) 100 mls @ 100 mls/hr IVPB Q8 [facility] PRN Reason: Protocol Last Admin: 07/11/17 08:22 Dose: 100 mls/hr Diltiazem HCl 125 mg/ Sodium (Chloride) 125 mls @ 2.5 mls/hr IV .Q24H ONE; 2.5 MG/HR PRN Reason: Protocol Stop: 07/11/17 20:47 Last Admin: 07/10/17 22:56 Dose: 2.5 mg/hr, 2.5 mls/hr Potassium Chloride 10 meq/ (Sodium Chloride) 105 mls @ 105 mls/hr IV Q1 [facility] Stop: 07/11/17 14:59 Morphine Sulfate (Morphine) 4 mg IVP Q4 PRN PRN Reason: Pain, severe (8-10) Last Admin: 07/11/17 08:25 Dose: 4 mg Mupirocin (Bactroban Ointment) 1 applic TOP BID [facility] Last Admin: 07/11/17 08:21 Dose: 1 applic Ondansetron HCl (Zofran Inj) 4 mg IVP Q6H PRN PRN Reason: Nausea/Vomiting Last Admin: 07/08/17 04:24 Dose: 4 mg Pantoprazole Sodium (Protonix Inj) 40 mg IVP DAILY [facility] Last Admin: 07/11/17 08:23 Dose: 40 mg - Labs Labs: 07/11/17 04:20 07/11/17 04:20 PT 12.7 Seconds (9.8-13.1) 07/08/17 00:50 INR 1.1 (0.9-1.2) 07/08/17 00:50 APTT 31.0 Seconds (25.6-37.1) 07/08/17 00:50 - Constitutional Appears: Well, Non-toxic, No Acute Distress - Head Exam Head Exam: ATRAUMATIC - Neck Exam Neck Exam: Tenderness - Respiratory Exam Respiratory Exam: NORMAL BREATHING PATTERN - GI/Abdominal Exam GI & Abdominal Exam: Soft, Normal Bowel Sounds. absent: Rigid, Hernia, Mass Additional comments: appropriately tender to palpation, drains in place with serosanguinous output - Rectal Exam Rectal Exam: Deferred - Extremities Exam Extremities Exam: Normal Inspection - Neurological Exam Neurological Exam: Alert, Awake, Oriented x3 - Psychiatric Exam Psychiatric exam: Normal Affect, Normal Mood - Skin Skin Exam: Intact, Normal Color, Warm Assessment and Plan - Assessment and Plan (Free Text) Assessment: 72M s/p 72M s/p exploratory laparotomy with findings of perforated viscous. Small bowel resection with anastomosis POD#3 Plan: Monitor drain output Replace electrolytes Ensure for diet Will continue to follow patient <Mook Worthy - Last Filed: 07/11/17 20:15> Objective - Vital Signs/Intake and Output Vital Signs (last 24 hours): Temp Pulse Resp BP Pulse Ox 98.1 F 115 H 34 H 119/49 L 95 07/11/17 16:00 07/11/17 17:58 07/11/17 17:58 07/11/17 17:58 07/11/17 17:58 Intake and Output: 07/11/17 07/12/17 18:59 06:59 Intake Total 2900 Output Total 1110 Balance 1790 - Medications Medications: Current Medications Albuterol/Ipratropium (Duoneb 3 Mg/0.5 Mg (3 Ml) Ud) 3 ml INH RQ6 [facility] Last Admin: 07/11/17 19:29 Dose: 3 ml Metronidazole (Flagyl 500mg/100ml Ns) 100 mls @ 100 mls/hr IVPB Q8 [facility] PRN Reason: Protocol Last Admin: 07/11/17 16:14 Dose: 100 mls/hr Vancomycin HCl 1 gm/ Sodium (Chloride) 250 mls @ 166.667 mls/hr IVPB Q12 [facility] PRN Reason: Protocol Last Admin: 07/11/17 08:26 Dose: 166.667 mls/hr Amiodarone HCl 450 mg/ Sodium (Chloride) 259 mls @ 34.53 mls/hr IVPB .Q7H31M [facility]; 1 MG/MIN PRN Reason: Protocol Last Admin: 07/11/17 14:41 Dose: 34.53 mls/hr Cefepime HCl 2 gm/ Sodium (Chloride) 100 mls @ 100 mls/hr IVPB Q8 [facility] PRN Reason: Protocol Last Admin: 07/11/17 16:15 Dose: 100 mls/hr Lactated Ringer's (Lactated Ringer's) 1,000 mls @ 80 mls/hr IV .[id number] [facility] Stop: 07/12/17 18:31 Last Admin: 07/11/17 18:44 Dose: 80 mls/hr Morphine Sulfate (Morphine) 4 mg IVP Q4 PRN PRN Reason: Pain, severe (8-10) Last Admin: 07/11/17 17:14 Dose: 4 mg Mupirocin (Bactroban Ointment) 1 applic TOP BID [facility] Last Admin: 07/11/17 16:13 Dose: 1 applic Ondansetron HCl (Zofran Inj) 4 mg IVP Q6H PRN PRN Reason: Nausea/Vomiting Last Admin: 07/08/17 04:24 Dose: 4 mg Pantoprazole Sodium (Protonix Inj) 40 mg IVP DAILY [facility] Last Admin: 07/11/17 08:23 Dose: 40 mg Sodium Phosphate (Fleet Enema) 135 ml [place] Q6H [facility] Stop: 07/12/17 11:31 Last Admin: 07/11/17 17:49 Dose: 135 ml - Labs Labs: 07/11/17 04:20 07/11/17 04:20 PT 12.7 Seconds (9.8-13.1) 07/08/17 00:50 INR 1.1 (0.9-1.2) 07/08/17 00:50 APTT 31.0 Seconds (25.6-37.1) 07/08/17 00:50 Attending/Attestation - Attestation I have personally seen and examined this patient.: Yes I have fully participated in the care of the patient.: Yes I have reviewed all pertinent clinical information, including history, physical exam and plan: Yes Notes (Text): Pt was seen and examined at bedside Agree with above note and assessment Pt is c/o mild incisional pain Drain output: serous c.w current mx Plan d.w ICU attending in detail
[2017-07-11] MEDS ORDERED: Amiodarone 150 MG in Sodium Chloride 0.9% 100 ML IVPB ONE ×2 (13:20→13:30)
[2017-07-11] MEDS ORDERED: Amiodarone 450 MG in Sodium Chloride 0.9% 250 ML IVPB SCH (13:30)
--- NOTE | 2017-07-11 13:48 | CP.PCM.PN ---
Subjective - Date & Time of Evaluation Date of Evaluation: 07/11/17 Time of Evaluation: 06:00 - Subjective Subjective: S/p exploratory laparotomy with findings of perforated viscous. Small bowel resection with anastomosis POD#2. Alert, awake. Afebrile Objective - Vital Signs/Intake and Output Vital Signs (last 24 hours): Temp Pulse Resp BP Pulse Ox 98.3 F 129 H 26 H 108/63 100 07/11/17 12:00 07/11/17 13:00 07/11/17 13:00 07/11/17 13:00 07/11/17 13:00 Intake and Output: 07/11/17 07/11/17 06:59 18:59 Intake Total 1819 1200 Output Total 800 625 Balance 1019 575 - Medications Medications: Current Medications Albuterol/Ipratropium (Duoneb 3 Mg/0.5 Mg (3 Ml) Ud) 3 ml INH RQ6 [facility] Last Admin: 07/11/17 13:17 Dose: Not Given Metronidazole (Flagyl 500mg/100ml Ns) 100 mls @ 100 mls/hr IVPB Q8 [facility] PRN Reason: Protocol Last Admin: 07/11/17 08:22 Dose: 100 mls/hr Lactated Ringer's (Lactated Ringer's) 1,000 mls @ 150 mls/hr IV .Q6H40M [facility] Last Admin: 07/11/17 05:48 Dose: 150 mls/hr Vancomycin HCl 1 gm/ Sodium (Chloride) 250 mls @ 166.667 mls/hr IVPB Q12 [facility] PRN Reason: Protocol Last Admin: 07/11/17 08:26 Dose: 166.667 mls/hr Meropenem 1 gm/ Sodium (Chloride) 100 mls @ 100 mls/hr IVPB Q8 [facility] PRN Reason: Protocol Last Admin: 07/11/17 08:22 Dose: 100 mls/hr Potassium Chloride 10 meq/ (Sodium Chloride) 105 mls @ 105 mls/hr IV Q1 [facility] Stop: 07/11/17 14:59 Last Admin: 07/11/17 13:30 Dose: 105 mls/hr Amiodarone HCl 450 mg/ Sodium (Chloride) 259 mls @ 34.53 mls/hr IVPB .Q7H31M [facility]; 1 MG/MIN PRN Reason: Protocol Potassium Chloride (Potassium Chloride 10 Meq/100 Ml) 100 mls @ 100 mls/hr IVPB Q1 [facility] Stop: 07/11/17 18:59 Morphine Sulfate (Morphine) 4 mg IVP Q4 PRN PRN Reason: Pain, severe (8-10) Last Admin: 07/11/17 13:22 Dose: 4 mg Mupirocin (Bactroban Ointment) 1 applic TOP BID [facility] Last Admin: 07/11/17 08:21 Dose: 1 applic Ondansetron HCl (Zofran Inj) 4 mg IVP Q6H PRN PRN Reason: Nausea/Vomiting Last Admin: 07/08/17 04:24 Dose: 4 mg Pantoprazole Sodium (Protonix Inj) 40 mg IVP DAILY [facility] Last Admin: 07/11/17 08:23 Dose: 40 mg - Labs Labs: 07/11/17 04:20 07/11/17 04:20 PT 12.7 Seconds (9.8-13.1) 07/08/17 00:50 INR 1.1 (0.9-1.2) 07/08/17 00:50 APTT 31.0 Seconds (25.6-37.1) 07/08/17 00:50 - Constitutional Appears: Non-toxic, Cachectic, Chronically Ill - Head Exam Head Exam: NORMOCEPHALIC - Eye Exam Eye Exam: absent: Scleral icterus - ENT Exam ENT Exam: Mucous Membranes Dry - Neck Exam Neck Exam: absent: Lymphadenopathy - Respiratory Exam Respiratory Exam: Decreased Breath Sounds, Prolonged Expiratory Phase, Rhonchi - Cardiovascular Exam Cardiovascular Exam: Tachycardia, REGULAR RHYTHM, +S1, +S2 - GI/Abdominal Exam GI & Abdominal Exam: Distended, Soft, Tenderness - Rectal Exam Rectal Exam: Deferred - Exam Exam: NORMAL INSPECTION - Extremities Exam Extremities Exam: absent: Pedal Edema - Back Exam Back Exam: absent: CVA tenderness (L), CVA tenderness (R), paraspinal tenderness - Neurological Exam Neurological Exam: Alert, Awake, CN II-XII Intact, Oriented x3 Neuro motor strength exam: Left Upper Extremity: 3, Right Upper Extremity: 3, Left Lower Extremity: 3, Right Lower Extremity: 3 - Psychiatric Exam Psychiatric exam: Depressed - Skin Skin Exam: Dry Assessment and Plan (1) Abdominal pain Status: Acute (2) COPD (chronic obstructive pulmonary disease) Status: Acute (3) Essential (primary) hypertension Status: Acute (4) Hx of atrial fibrillation, no current medication Status: Acute (5) Intestinal perforation Status: Acute (6) Perforated abdominal viscus Status: Acute (7) Sepsis Status: Acute - Assessment and Plan (Free Text) Assessment: wbc and plts low unclear etiology suggest heme eval stat fibrinogen /split products cont IV antibiotics for sepsis / peritonitis
--- NOTE | 2017-07-11 14:59 | CP.CCUPN ---
CCU Subjective - Physician Review Subjective (Free Text): Has minor abdominal discomfort, no nausea, given Tap water enema given yesterday with no BM. On Cardizem drip, has been up to 15 mg/hr, no HR up to 158 in A Fib with RVR, had been in Sinus tachy with PACs earlier. Resp status stable since extubation yesterday. Other VS and I/Os reviewed. T max 100.6F yesterday; 3.0 L positive fluid balance last 24H. ROS: No other pertinent negs or positives on 10+ system review. PMSFH: All other Nursing and physician documentation reviewed to date; no new pertinent info noted relevant to current medical problems. EXAM- HEENT: no icterus, no gaze preference, pupils equal and reactive, no icterus NECK: No JVD, supple, carotids equal upstroke bilat/no bruits CHEST: decreased BS bases, otherwise clear bilat, no wheezes audible HEART: regular distant, S1S2, no rubs. ABD: soft, no distention, no tympany, +palp tenderness, BS absent EXT: No peripheral/ digital cyanosis, no calf tenderness or palpable cords, distal pulses intact and symmetrical. NEURO: no gross focal motor deficits SKIN: no rashes, warm and dry. LABS: WBC= 2.7 HGB= 9.5 PLTs= 68K Na= 134 K= 2.9 HCO3=25 CL= 99 BUN/Cr= 27/1.2 BS= 66 MAJOR PROBLEMS: 1. Acute Resp Insuff-Post op 2. A Fib with RVR 3. Thrombocytopenia 2 Recent Surgery, r/o 2 Sepsis, drug-induced, DIC low likelihood 4. Hypokalemia 5. Leukopenia PLAN: 1. Tachyarrhythmia control unresponsive to Cardizem at this point, will do trial of Amiodarone. Get ECHO for LA / LV function and size, check TFTs. At worst, will try IV BBs: aware of h/o COPD. Too hypokalemic for effective Digoxin effect. Cautious pain co 2. Current HGB level low due to hemodlilution, no active bleeding evident, will monitor for now in the face of low platelets. 3. More K supplementation. 4. Empiric abx coverage noted. 5. Continue IVF hydration, watch for transabdominal fluid shifts. CCU Objective - Vital Signs / Intake & Output Vital Signs (Last 4 hours): Vital Signs Temp Pulse Resp BP Pulse Ox 07/11/17 14:41 111 H 07/11/17 14:08 114 H 107/47 L 07/11/17 14:00 112 H 26 H 103/48 L 100 07/11/17 13:00 129 H 26 H 108/63 100 07/11/17 12:00 98.3 F 126 H 18 113/54 L 100 07/11/17 11:00 111 H 19 100/60 100 Intake and Output (Last 8hrs): Intake & Output 07/10/17 07/11/17 07/11/17 22:59 06:59 14:59 Intake Total 1602 1267 1500 Output Total 590 750 750 Balance 1012 517 750 Intake: IV 1002 1067 1050 Intake, Piggyback 600 200 450 Oral 0 0 Output: Gastric Amount 300 200 Right Nares 300 200 Drainage 190 550 Left 30 150 Right 160 400 Urine 100 750 Urethral (Russell) 100 750 Other: # Bowel Movements 0 - Physical Exam Head: Positive for: Normocephalic Pupils: Positive for: PERRL Conjunctiva: Negative for: Icteric Mouth: Positive for: Moist Mucous Membranes Neck: Negative for: JVD Respiratory/Chest: Positive for: Clear to Auscultation, Decreased Breath Sounds Cardiovascular: Positive for: Irregular Rhythm, Tachycardic. Negative for: Murmurs, Rub Abdomen: Positive for: Tenderness. Negative for: Distention, Normal Bowel Sounds, Mass/Organomegaly Lower Extremity: Positive for: NORMAL PULSES. Negative for: CALF TENDERNESS, Cyanosis Neurological: Positive for: Motor Func Grossly Intact, Normal Sensory Function Skin: Positive for: Warm, Dry. Negative for: Rashes Psychiatric: Positive for: Alert, Oriented x 3 - Medications Active Medications: Active Medications Generic Name Dose Route Start Last Admin Trade Name Freq PRN Reason Stop Dose Admin Albuterol/Ipratropium 3 ml 07/08/17 20:00 07/11/17 13:17 Duoneb 3 Mg/0.5 Mg (3 Ml) Ud INH Not Given RQ6 CHARMAINE Metronidazole 100 mls @ 100 mls/hr 07/08/17 01:00 07/11/17 08:22 Flagyl 500mg/100ml Ns IVPB 100 mls/hr Q8 CHARMAINE Administration Protocol Lactated Ringer's 1,000 mls @ 150 mls/hr 07/09/17 13:45 07/11/17 05:48 Lactated Ringer's IV 150 mls/hr .[id number] CHARMAINE Administration Vancomycin HCl 1 gm/ Sodium 250 mls @ 166.667 mls/hr 07/10/17 11:45 07/11/17 08:26 Chloride IVPB 166.667 mls/hr Q12 CHARMAINE Administration Protocol Potassium Chloride 10 meq/ 105 mls @ 105 mls/hr 07/11/17 12:00 07/11/17 14:13 Sodium Chloride IV 07/11/17 14:59 105 mls/hr Q1 CHARMAINE Administration Amiodarone HCl 450 mg/ Sodium 259 mls @ 34.53 mls/hr 07/11/17 13:30 07/11/17 14:41 Chloride IVPB 34.53 mls/hr .Q7H31M CHARMAINE Administration Protocol 1 MG/MIN Potassium Chloride 100 mls @ 100 mls/hr 07/11/17 14:00 Potassium Chloride 10 Meq/100 Ml IVPB 07/11/17 18:59 Q1 CHARMAINE Cefepime HCl 2 gm/ Sodium 100 mls @ 100 mls/hr 07/11/17 17:00 Chloride IVPB Q8 CHARMAINE Protocol Morphine Sulfate 4 mg 07/10/17 16:15 07/11/17 13:22 Morphine IVP 4 mg Q4 PRN Administration Pain, severe (8-10) Mupirocin 1 applic 07/09/17 20:15 07/11/17 08:21 Bactroban Ointment TOP 1 applic BID CHARMAINE Administration Ondansetron HCl 4 mg 07/07/17 23:32 07/08/17 04:24 Zofran Inj IVP 4 mg Q6H PRN Administration Nausea/Vomiting Pantoprazole Sodium 40 mg 07/09/17 14:30 07/11/17 08:23 Protonix Inj IVP 40 mg DAILY CHARMAINE Administration - Patient Studies Lab Studies: Lab Studies 07/11/17 07/11/17 07/11/17 Range/Units 11:24 05:38 05:35 WBC (4.8-10.8) K/uL RBC (4.40-5.90) Mil/uL Hgb (12.0-18.0) g/dL Hct (35.0-51.0) % MCV (80.0-94.0) fl MCH (27.0-31.0) pg MCHC (33.0-37.0) g/dL RDW (11.5-14.5) % Plt Count (130-400) K/uL MPV (7.2-11.7) fl Neut % (Auto) (50.0-75.0) % Lymph % (Auto) (20.0-40.0) % [place] % (Auto) (0.0-10.0) % Eos % (Auto) (0.0-4.0) % Baso % (Auto) (0.0-2.0) % Neut # (Auto) (1.8-7.0) K/uL Lymph # (Auto) (1.0-4.3) K/uL [place] # (Auto) (0.0-0.8) K/uL Eos # (Auto) (0.0-0.7) K/uL Baso # (Auto) (0.0-0.2) K/uL Sodium (132-148) mmol/l Potassium (3.6-5.0) MMOL/L Chloride (98-107) mmol/L Carbon Dioxide (22-30) mmol/L Anion Gap (10-20) BUN (9-20) mg/dl Creatinine (0.8-1.5) mg/dl Est GFR ( Amer) Est GFR (Non-Af Amer) POC Glucose (mg/dL) 80 68 60 L (65-110) mg/dL Random Glucose (75-110) mg/dL Calcium (8.4-10.2) mg/dL Phosphorus (2.5-4.5) mg/dl Magnesium (1.6-2.3) MG/DL Total Bilirubin (0.2-1.3) mg/dl AST (17-59) U/L ALT (21-72) U/L Alkaline Phosphatase (38-126) U/L Total Protein (6.3-8.2) G/DL Albumin (3.5-5.0) g/dL Globulin (2.2-3.9) gm/dL Albumin/Globulin Ratio (1.0-2.1) Blood Type Antibody Screen Crossmatch IS Only BBK History Checked 07/11/17 07/11/17 07/10/17 Range/Units 04:20 04:20 21:05 WBC 2.7 L D (4.8-10.8) K/uL RBC 2.91 L (4.40-5.90) Mil/uL Hgb 9.5 L (12.0-18.0) g/dL Hct 28.0 L (35.0-51.0) % MCV 96.2 H (80.0-94.0) fl MCH 32.7 H (27.0-31.0) pg MCHC 34.0 (33.0-37.0) g/dL RDW 16.7 H (11.5-14.5) % Plt Count 68 L D (130-400) K/uL MPV 7.1 L (7.2-11.7) fl Neut % (Auto) 82.7 H (50.0-75.0) % Lymph % (Auto) 11.6 L (20.0-40.0) % [place] % (Auto) 3.3 (0.0-10.0) % Eos % (Auto) 2.3 (0.0-4.0) % Baso % (Auto) 0.1 (0.0-2.0) % Neut # (Auto) 2.3 (1.8-7.0) K/uL Lymph # (Auto) 0.3 L (1.0-4.3) K/uL [place] # (Auto) 0.1 (0.0-0.8) K/uL Eos # (Auto) 0.1 (0.0-0.7) K/uL Baso # (Auto) 0.0 (0.0-0.2) K/uL Sodium 134 (132-148) mmol/l Potassium 2.9 L (3.6-5.0) MMOL/L Chloride 99 (98-107) mmol/L Carbon Dioxide 25 (22-30) mmol/L Anion Gap 13 (10-20) BUN 27 H (9-20) mg/dl Creatinine 1.2 (0.8-1.5) mg/dl Est GFR ( Amer) > 60 Est GFR (Non-Af Amer) 60 POC Glucose (mg/dL) 76 (65-110) mg/dL Random Glucose 66 L (75-110) mg/dL Calcium 6.5 L (8.4-10.2) mg/dL Phosphorus 3.3 (2.5-4.5) mg/dl Magnesium 1.7 (1.6-2.3) MG/DL Total Bilirubin 0.5 (0.2-1.3) mg/dl AST 72 H (17-59) U/L ALT 78 H (21-72) U/L Alkaline Phosphatase 42 (38-126) U/L Total Protein 3.7 L (6.3-8.2) G/DL Albumin 1.5 L (3.5-5.0) g/dL Globulin 2.2 (2.2-3.9) gm/dL Albumin/Globulin Ratio 0.7 L (1.0-2.1) Blood Type Antibody Screen Crossmatch IS Only BBK History Checked 07/10/17 07/08/17 Range/Units 17:07 00:55 WBC (4.8-10.8) K/uL RBC (4.40-5.90) Mil/uL Hgb (12.0-18.0) g/dL Hct (35.0-51.0) % MCV (80.0-94.0) fl MCH (27.0-31.0) pg MCHC (33.0-37.0) g/dL RDW (11.5-14.5) % Plt Count (130-400) K/uL MPV (7.2-11.7) fl Neut % (Auto) (50.0-75.0) % Lymph % (Auto) (20.0-40.0) % [place] % (Auto) (0.0-10.0) % Eos % (Auto) (0.0-4.0) % Baso % (Auto) (0.0-2.0) % Neut # (Auto) (1.8-7.0) K/uL Lymph # (Auto) (1.0-4.3) K/uL [place] # (Auto) (0.0-0.8) K/uL Eos # (Auto) (0.0-0.7) K/uL Baso # (Auto) (0.0-0.2) K/uL Sodium (132-148) mmol/l Potassium (3.6-5.0) MMOL/L Chloride (98-107) mmol/L Carbon Dioxide (22-30) mmol/L Anion Gap (10-20) BUN (9-20) mg/dl Creatinine (0.8-1.5) mg/dl Est GFR ( Amer) Est GFR (Non-Af Amer) POC Glucose (mg/dL) 95 (65-110) mg/dL Random Glucose (75-110) mg/dL Calcium (8.4-10.2) mg/dL Phosphorus (2.5-4.5) mg/dl Magnesium (1.6-2.3) MG/DL Total Bilirubin (0.2-1.3) mg/dl AST (17-59) U/L ALT (21-72) U/L Alkaline Phosphatase (38-126) U/L Total Protein (6.3-8.2) G/DL Albumin (3.5-5.0) g/dL Globulin (2.2-3.9) gm/dL Albumin/Globulin Ratio (1.0-2.1) Blood Type A POSITIVE Antibody Screen Negative Crossmatch IS Only See Detail BBK History Checked Patient has bt Laboratory Results - last 24 hr 07/08/17 07/10/17 07/10/17 00:55 17:07 21:05 WBC RBC Hgb Hct MCV MCH MCHC RDW Plt Count MPV Neut % (Auto) Lymph % (Auto) [place] % (Auto) Eos % (Auto) Baso % (Auto) Neut # (Auto) Lymph # (Auto) [place] # (Auto) Eos # (Auto) Baso # (Auto) Sodium Potassium Chloride Carbon Dioxide Anion Gap BUN Creatinine Est GFR ( Amer) Est GFR (Non-Af Amer) POC Glucose (mg/dL) 95 76 Random Glucose Calcium Phosphorus Magnesium Total Bilirubin AST ALT Alkaline Phosphatase Total Protein Albumin Globulin Albumin/Globulin Ratio Blood Type A POSITIVE Antibody Screen Negative Crossmatch IS Only See Detail BBK History Checked Patient has bt 07/11/17 07/11/17 07/11/17 04:20 04:20 05:35 WBC 2.7 L D RBC 2.91 L Hgb 9.5 L Hct 28.0 L MCV 96.2 H MCH 32.7 H MCHC 34.0 RDW 16.7 H Plt Count 68 L D MPV 7.1 L Neut % (Auto) 82.7 H Lymph % (Auto) 11.6 L [place] % (Auto) 3.3 Eos % (Auto) 2.3 Baso % (Auto) 0.1 Neut # (Auto) 2.3 Lymph # (Auto) 0.3 L [place] # (Auto) 0.1 Eos # (Auto) 0.1 Baso # (Auto) 0.0 Sodium 134 Potassium 2.9 L Chloride 99 Carbon Dioxide 25 Anion Gap 13 BUN 27 H Creatinine 1.2 Est GFR ( Amer) > 60 Est GFR (Non-Af Amer) 60 POC Glucose (mg/dL) 60 L Random Glucose 66 L Calcium 6.5 L Phosphorus 3.3 Magnesium 1.7 Total Bilirubin 0.5 AST 72 H ALT 78 H Alkaline Phosphatase 42 Total Protein 3.7 L Albumin 1.5 L Globulin 2.2 Albumin/Globulin Ratio 0.7 L Blood Type Antibody Screen Crossmatch IS Only BBK History Checked 07/11/17 07/11/17 05:38 11:24 WBC RBC Hgb Hct MCV MCH MCHC RDW Plt Count MPV Neut % (Auto) Lymph % (Auto) [place] % (Auto) Eos % (Auto) Baso % (Auto) Neut # (Auto) Lymph # (Auto) [place] # (Auto) Eos # (Auto) Baso # (Auto) Sodium Potassium Chloride Carbon Dioxide Anion Gap BUN Creatinine Est GFR ( Amer) Est GFR (Non-Af Amer) POC Glucose (mg/dL) 68 80 Random Glucose Calcium Phosphorus Magnesium Total Bilirubin AST ALT Alkaline Phosphatase Total Protein Albumin Globulin Albumin/Globulin Ratio Blood Type Antibody Screen Crossmatch IS Only BBK History Checked Fingerstick Blood Sugar Results: 80 Review of Systems - Review of Systems All systems: reviewed and no additional remarkable complaints except (as above) Critical Care Progress Note - Nutrition Nutrition: Nutrition Category Date Time Status NPO Diet [DIET] Diets 07/07/17 Breakfast Active
[2017-07-11] MEDS: Cefepime 2 GM in Sodium Chloride 0.9% 100 ML IVPB SCH (16:15)
[2017-07-11] MEDS: Potassium CL 10mEq/100ml 100 ML IVPB SCH ×5 (16:15→19:44)
[2017-07-11] MEDS ORDERED: Albuterol-Ipratrop 3 mg / 0.5 (3 ml) UD INH STA (17:54)
[2017-07-12] MEDS: Morphine 4 MG/ML VIAL IVP PRN ×6 (00:31→20:23)
[2017-07-12] MEDS ORDERED: Metoprolol 1 mg/ml Inj IVP STA ×2 (00:46→03:11)
[2017-07-12] MEDS: Albuterol-Ipratrop 3 mg / 0.5 (3 ml) UD INH SCH ×4 (01:02→19:17)
[2017-07-12] MEDS: Cefepime 2 GM in Sodium Chloride 0.9% 100 ML IVPB SCH ×3 (02:12→16:03)
[2017-07-12] MEDS: metroNIDAZOLE 500mg/100ml NS 100 ML IVPB SCH ×3 (02:14→16:02)
[2017-07-12] MEDS ORDERED: Metoprolol 1 mg/ml Inj IVP ONE ×2 (03:07→18:17)
[2017-07-12] MEDS: Lactated Ringer's 1,000 ML IV SCH (05:28)
[2017-07-12 07:20] LABS: BASO % 0.1 % (0.0-2.0); EOS % 1.3 % (0.0-4.0); LYMPH # 0.4 K/uL (1.0-4.3); MEAN CELL VOLUME 96.1 fl (80.0-94.0); MEAN CORPUSCULAR HEMOGLOBIN 33.5 pg (27.0-31.0); MEAN CORPUSCULAR HGB CONC 34.9 g/dL (33.0-37.0); MEAN PLATELET VOLUME 7.7 fl (7.2-11.7); MONO # 0.1 K/uL (0.0-0.8); NEUT # 2.6 K/uL (1.8-7.0); NEUT % 80.6 % (50.0-75.0); NRBC % 0.2 % (0.0-0.0); RBC 2.99 Mil/uL (4.40-5.90); RED CELL DISTRIBUTION WIDTH 17.2 % (11.5-14.5); WHITE BLOOD COUNT 3.2 K/uL (4.8-10.8)
--- NOTE | 2017-07-12 07:27 | RAD ---
HISTORY: Acute SOB COMPARISON: Portable chest 07/10/2017 7:11 a.m. FINDINGS: The endotracheal tube is not identified with the extubated presumably. Clinically correlate. Right center venous line and nasogastric tube are not significantly changed in position. LUNGS: Increasing density at the mid to inferior lung zones is suspicious for developing atelectasis or infiltrate bilaterally. PLEURA: Small bilateral pleural effusions are suggested. No pneumothorax bilaterally. CARDIOVASCULAR: Cardiac size remains normal. Pulmonary vascular pattern is slightly increased with mild pulmonary venous congestion in question. OSSEOUS STRUCTURES: No significant abnormalities. VISUALIZED UPPER ABDOMEN: Surgical clips seen in the once again at the epigastric region. OTHER FINDINGS: None. IMPRESSION: Increasing atelectasis infiltrate at the medial mid to inferior lung zones bilaterally with small bilateral pleural effusions also suspected. Mild pulmonary venous congestion may be developing. Clinically correlate further.
[2017-07-12 07:43] LABS: ALB/GLOB RATIO 0.6 (1.0-2.1); ALBUMIN 1.5 g/dL (3.5-5.0); ALT/SGPT 73 U/L (21-72); AST/SGOT 47 U/L (17-59); BLOOD UREA NITROGEN 28 mg/dl (9-20); CALCIUM 6.8 mg/dL (8.4-10.2); GFR AFRICAN-AMERICAN > 60; GFR NON-AFRICAN AMERICAN > 60
--- NOTE | 2017-07-12 08:12 | CP.PCM.PN ---
<Delfino Lagos - Last Filed: 07/12/17 08:10> Subjective - Date & Time of Evaluation Date of Evaluation: 07/12/17 Time of Evaluation: 08:10 - Subjective Subjective: SURGERY PROGRESS NOTE FOR DR. WORTHY 72M seen and examined at bedside. Patient is AAOx3 and is in NAD. Denies of any acute overnight events. Reports that he has little pain but is tolerating it well. Denies of having any F/N/V/C/SOB/CP. Denies of any other complains at this time. Objective - Vital Signs/Intake and Output Vital Signs (last 24 hours): Temp Pulse Resp BP Pulse Ox 99.0 F 103 H 14 106/69 100 07/12/17 04:00 07/12/17 07:00 07/12/17 07:00 07/12/17 07:00 07/12/17 07:00 Intake and Output: 07/12/17 07/12/17 06:59 18:59 Intake Total 420 Output Total 240 Balance 180 - Medications Medications: Current Medications Albuterol/Ipratropium (Duoneb 3 Mg/0.5 Mg (3 Ml) Ud) 3 ml INH RQ6 CHARMAINE Last Admin: 07/12/17 08:00 Dose: 3 ml Metronidazole (Flagyl 500mg/100ml Ns) 100 mls @ 100 mls/hr IVPB Q8 CHARMAINE PRN Reason: Protocol Last Admin: 07/12/17 02:14 Dose: 100 mls/hr Vancomycin HCl 1 gm/ Sodium (Chloride) 250 mls @ 166.667 mls/hr IVPB Q12 CHARMAINE PRN Reason: Protocol Last Admin: 07/11/17 22:00 Dose: Not Given Amiodarone HCl 450 mg/ Sodium (Chloride) 259 mls @ 34.53 mls/hr IVPB .Q7H31M CHARMAINE; 1 MG/MIN PRN Reason: Protocol Last Admin: 07/11/17 14:41 Dose: 34.53 mls/hr Cefepime HCl 2 gm/ Sodium (Chloride) 100 mls @ 100 mls/hr IVPB Q8 CHARMAINE PRN Reason: Protocol Last Admin: 07/12/17 02:12 Dose: 100 mls/hr Lactated Ringer's (Lactated Ringer's) 1,000 mls @ 80 mls/hr IV .[id number] [facility] Stop: 07/12/17 18:31 Last Admin: 07/12/17 05:28 Dose: 80 mls/hr Morphine Sulfate (Morphine) 4 mg IVP Q4 PRN PRN Reason: Pain, severe (8-10) Last Admin: 07/12/17 04:34 Dose: 4 mg Mupirocin (Bactroban Ointment) 1 applic TOP BID [facility] Last Admin: 07/11/17 16:13 Dose: 1 applic Ondansetron HCl (Zofran Inj) 4 mg IVP Q6H PRN PRN Reason: Nausea/Vomiting Last Admin: 07/08/17 04:24 Dose: 4 mg Pantoprazole Sodium (Protonix Inj) 40 mg IVP DAILY [facility] Last Admin: 07/11/17 08:23 Dose: 40 mg Sodium Phosphate (Fleet Enema) 135 ml CO Q6H [facility] Stop: 07/12/17 11:31 Last Admin: 07/12/17 06:08 Dose: 135 ml - Labs Labs: 07/12/17 06:00 07/12/17 06:00 PT 12.7 Seconds (9.8-13.1) 07/08/17 00:50 INR 1.1 (0.9-1.2) 07/08/17 00:50 APTT 31.0 Seconds (25.6-37.1) 07/08/17 00:50 - Constitutional Appears: Well, Non-toxic, No Acute Distress - Head Exam Head Exam: ATRAUMATIC - Eye Exam Eye Exam: Normal appearance - ENT Exam ENT Exam: Normal Exam - Neck Exam Neck Exam: Full ROM - Respiratory Exam Respiratory Exam: NORMAL BREATHING PATTERN - GI/Abdominal Exam GI & Abdominal Exam: Soft, Tenderness. absent: Rigid, Hernia, Mass - Rectal Exam Rectal Exam: Deferred - Extremities Exam Extremities Exam: Normal Inspection - Back Exam Back Exam: NORMAL INSPECTION - Neurological Exam Neurological Exam: Alert, Awake, Oriented x3 - Psychiatric Exam Psychiatric exam: Normal Affect, Normal Mood - Skin Skin Exam: Intact, Normal Color, Warm Assessment and Plan - Assessment and Plan (Free Text) Assessment: 72M s/p exploratory laparotomy with findings of perforated viscous. Small bowel resection with anastomosis POD#4 Plan: Monitor drain output Pain control Replace electrolytes Ensure for diet Will continue to follow patient <Mook Worthy - Last Filed: 07/15/17 18:47> Objective - Vital Signs/Intake and Output Vital Signs (last 24 hours): Temp Pulse Resp BP Pulse Ox 98.8 F 89 18 93/56 L 100 07/15/17 16:24 07/15/17 18:00 07/15/17 18:00 07/15/17 18:00 07/15/17 18:00 Intake and Output: 07/15/17 07/15/17 06:59 18:59 Intake Total 422 400 Output Total 650 1650 Balance -228 -1250 - Medications Medications: Current Medications Acetaminophen (Tylenol 325mg Tab) 650 mg PO Q4 PRN PRN Reason: Pain, moderate (4-7) Albuterol/Ipratropium (Duoneb 3 Mg/0.5 Mg (3 Ml) Ud) 3 ml INH RQ6 CHARMAINE Last Admin: 07/15/17 13:17 Dose: 3 ml Diltiazem HCl (Cardizem) 60 mg PO Q8 CHARMAINE Last Admin: 07/15/17 16:56 Dose: Not Given Docusate Sodium (Colace) 100 mg PO TID CHARMAINE Last Admin: 07/15/17 16:56 Dose: 100 mg Furosemide (Lasix) 20 mg IVP DAILY [facility] Last Admin: 07/15/17 10:11 Dose: 20 mg Hydromorphone HCl (Dilaudid) 1 mg IVP Q4 PRN PRN Reason: Pain, severe (8-10) Last Admin: 07/15/17 12:02 Dose: 1 mg Linezolid 600 mg in NS 300 ml (Zyvox 600mg/300ml Ns) 600 mg in 300 mls @ 300 mls/hr IVPB Q12 CHARMAINE PRN Reason: Protocol Last Admin: 07/15/17 10:15 Dose: 300 mls/hr Amiodarone HCl 450 mg/ Sodium (Chloride) 259 mls @ 34.53 mls/hr IVPB .Q7H31M CHARMAINE; 1 MG/MIN PRN Reason: Protocol Last Admin: 07/14/17 01:00 Dose: 34.53 mls/hr Cefepime HCl 1 gm/ Sodium (Chloride) 100 mls @ 100 mls/hr IVPB Q12 CHARMAINE PRN Reason: Protocol Mupirocin (Bactroban Ointment) 1 applic TOP BID [facility] Last Admin: 07/15/17 16:55 Dose: 1 applic Ondansetron HCl (Zofran Inj) 4 mg IVP Q6H PRN PRN Reason: Nausea/Vomiting Last Admin: 07/13/17 21:22 Dose: 4 mg Pantoprazole Sodium (Protonix Inj) 40 mg IVP DAILY [facility] Last Admin: 07/15/17 10:15 Dose: 40 mg Saccharomyces Boulardii (Florastor) 250 mg PO BID [facility] Last Admin: 07/15/17 16:57 Dose: 250 mg - Labs Labs: 07/15/17 04:28 07/15/17 04:28 PT 27.1 Seconds (9.8-13.1) H 07/14/17 04:27 INR 2.5 (0.9-1.2) H 07/14/17 04:27 APTT 31.0 Seconds (25.6-37.1) 07/08/17 00:50 Attending/Attestation - Attestation I have personally seen and examined this patient.: Yes I have fully participated in the care of the patient.: Yes I have reviewed all pertinent clinical information, including history, physical exam and plan: Yes Notes (Text): Pt was seen and examined at bedside Agree with above note and assessment pt is improving clinically Pt is passing gas and tolarating liquid diet. c.w current mx C/w Enema and Colace Plan d.w pt and nurse in detail
--- NOTE | 2017-07-12 10:09 | CP.PCM.PN ---
<Brandon Kauffman - Last Filed: 07/12/17 12:06> Subjective - Date & Time of Evaluation Date of Evaluation: 07/12/17 Time of Evaluation: 09:15 - Subjective Subjective: Patient is s/p small bowel resection POD4 after perforation/peritonitis. Still c /o intermittent pain that requires Morphine for control. Sx dressing removed by Sx this morning. Patient had a.fib Yesterday and was on Amio til this morning after sinus rhythm was noticed. NG tube in place. Russell appropriate outpatient, persistent dark urine. Denies CP, SOB, palpitations. Objective - Vital Signs/Intake and Output Vital Signs (last 24 hours): Temp Pulse Resp BP Pulse Ox 98.4 F 107 H 20 102/69 100 07/12/17 08:00 07/12/17 08:00 07/12/17 08:00 07/12/17 08:00 07/12/17 08:00 Intake and Output: 07/12/17 07/12/17 06:59 18:59 Intake Total 1180 Output Total 640 Balance 540 - Medications Medications: Current Medications Albuterol/Ipratropium (Duoneb 3 Mg/0.5 Mg (3 Ml) Ud) 3 ml INH RQ6 [facility] Last Admin: 07/12/17 08:00 Dose: 3 ml Metronidazole (Flagyl 500mg/100ml Ns) 100 mls @ 100 mls/hr IVPB Q8 [facility] PRN Reason: Protocol Last Admin: 07/12/17 08:14 Dose: 100 mls/hr Vancomycin HCl 1 gm/ Sodium (Chloride) 250 mls @ 166.667 mls/hr IVPB Q12 [facility] PRN Reason: Protocol Last Admin: 07/12/17 08:17 Dose: 166.667 mls/hr Cefepime HCl 2 gm/ Sodium (Chloride) 100 mls @ 100 mls/hr IVPB Q8 [facility] PRN Reason: Protocol Last Admin: 07/12/17 08:15 Dose: 100 mls/hr Lactated Ringer's (Lactated Ringer's) 1,000 mls @ 80 mls/hr IV .[id number] [facility] Stop: 07/12/17 18:31 Last Admin: 07/12/17 05:28 Dose: 80 mls/hr Potassium Chloride 10 meq/ (Sodium Chloride) 105 mls @ 105 mls/hr IV Q1 [facility] Stop: 07/12/17 14:59 Metoprolol Tartrate (Lopressor) 2.5 mg IVP Q6 [facility] Morphine Sulfate (Morphine) 4 mg IVP Q4 PRN PRN Reason: Pain, severe (8-10) Last Admin: 07/12/17 08:21 Dose: 4 mg Mupirocin (Bactroban Ointment) 1 applic TOP BID [facility] Last Admin: 07/12/17 08:14 Dose: 1 applic Ondansetron HCl (Zofran Inj) 4 mg IVP Q6H PRN PRN Reason: Nausea/Vomiting Last Admin: 07/08/17 04:24 Dose: 4 mg Pantoprazole Sodium (Protonix Inj) 40 mg IVP DAILY [facility] Last Admin: 07/12/17 08:16 Dose: 40 mg Sodium Phosphate (Fleet Enema) 135 ml OK Q6H [facility] Stop: 07/12/17 11:31 Last Admin: 07/12/17 06:08 Dose: 135 ml - Labs Labs: 07/12/17 06:00 07/12/17 06:00 PT 12.7 Seconds (9.8-13.1) 07/08/17 00:50 INR 1.1 (0.9-1.2) 07/08/17 00:50 APTT 31.0 Seconds (25.6-37.1) 07/08/17 00:50 - Eye Exam Eye Exam: EOMI, PERRL - ENT Exam ENT Exam: Mucous Membranes Moist - Respiratory Exam Respiratory Exam: NORMAL BREATHING PATTERN. absent: Decreased Breath Sounds, Respiratory Distress - Cardiovascular Exam Cardiovascular Exam: REGULAR RHYTHM, +S1, +S2. absent: Gallop - GI/Abdominal Exam GI & Abdominal Exam: Soft, Tenderness (Diffuse), Normal Bowel Sounds (Sx wound clean and dry) - Extremities Exam Extremities Exam: Pedal Edema. absent: Calf Tenderness Additional comments: SCDs in place. B/L UE mild edema. - Neurological Exam Neurological Exam: Alert, Awake, Oriented x3 Assessment and Plan - Assessment and Plan (Free Text) Assessment: C/w supportive measures Surgery consult appreciated Worsening trombocitopenia. Awaiting hem-onc recs. med SE vs Sepsis VS stable but tachy and slightly hypotensive at times As per Sx patient might be advanced ti liquid diet today Had 1 Bm overnight and enema were ordered by Sx team. ID consult appreicated: C/W Vanco, Cefepime, Flagyl Hypokalemia: Replace K <CastanedaBronson Soco - Last Filed: 07/22/17 21:22> Objective - Vital Signs/Intake and Output Vital Signs (last 24 hours): Temp Pulse Resp BP Pulse Ox 97.8 F 91 H 18 111/60 100 07/22/17 16:00 07/22/17 18:00 07/22/17 18:00 07/22/17 18:00 07/22/17 18:00 Intake and Output: 07/22/17 07/23/17 18:59 06:59 Intake Total 940 Output Total 1165 Balance -225 - Medications Medications: Current Medications Acetaminophen (Tylenol 325mg Tab) 650 mg PO Q4 PRN PRN Reason: Pain, moderate (4-7) Diltiazem HCl (Cardizem) 60 mg PO Q8 [facility] Last Admin: 07/22/17 16:01 Dose: Not Given Furosemide (Lasix) 20 mg IVP DAILY [facility] Last Admin: 07/22/17 09:03 Dose: 20 mg Amiodarone HCl 450 mg/ Sodium (Chloride) 259 mls @ 34.53 mls/hr IVPB .[id number] [facility]; 1 MG/MIN PRN Reason: Protocol Last Admin: 07/14/17 01:00 Dose: 34.53 mls/hr Meropenem 1 gm/ Sodium (Chloride) 100 mls @ 100 mls/hr IVPB Q8 [facility] PRN Reason: Protocol Last Admin: 07/22/17 16:08 Dose: 100 mls/hr Micafungin Sodium 100 mg/ (Sodium Chloride) 100 mls @ 100 mls/hr IVPB DAILY [facility] PRN Reason: Protocol Last Admin: 07/22/17 14:48 Dose: 100 mls/hr Potassium Chloride/Dextrose/Sod Cl (Potassium Chl 20 Meq In D5-1/2ns) 1,000 mls @ 100 mls/hr IV .Q10H [facility] Stop: 07/23/17 06:14 Last Admin: 07/22/17 21:04 Dose: 100 mls/hr Morphine Sulfate (Morphine) 6 mg IVP Q4 PRN PRN Reason: Pain, severe (8-10) Last Admin: 07/22/17 21:03 Dose: 6 mg Mupirocin (Bactroban Ointment) 1 applic TOP BID [facility] Last Admin: 07/22/17 16:09 Dose: 1 applic Octreotide Acetate (Sandostatin) 300 mcg SC Q8@0500,1300,2100 [facility] Last Admin: 07/22/17 21:03 Dose: 300 mcg Ondansetron HCl (Zofran Inj) 4 mg IVP Q6H PRN PRN Reason: Nausea/Vomiting Last Admin: 07/17/17 05:26 Dose: 4 mg Potassium Chloride (Potassium Chloride Oral Soln) 20 meq PO BID [facility] Last Admin: 07/22/17 16:01 Dose: Not Given Saccharomyces Boulardii (Florastor) 250 mg PO BID [facility] Last Admin: 07/22/17 16:01 Dose: Not Given - Labs Labs: 07/22/17 05:20 07/22/17 05:20 PT 15.9 Seconds (9.8-13.1) H 07/22/17 05:20 INR 1.4 (0.9-1.2) H 07/22/17 05:20 APTT 39.1 Seconds (25.6-37.1) H 07/22/17 05:20 Assessment and Plan (1) Abdominal pain Status: Acute (2) COPD (chronic obstructive pulmonary disease) Status: Acute (3) Essential (primary) hypertension Status: Acute (4) Hx of atrial fibrillation, no current medication Status: Acute (5) Intestinal perforation Status: Acute (6) Perforated abdominal viscus Status: Acute (7) Atrial fibrillation Status: Acute (8) Anemia Status: Acute - Assessment and Plan (Free Text) Plan: I was present during evaluation and discussed with Dr Kauffman re plans of care and tx. Bronson Castaneda M.D.
[2017-07-12] MEDS: Metoprolol 1 mg/ml Inj IVP SCH ×4 (10:22→21:22)
--- NOTE | 2017-07-12 10:50 | CP.CCUPN ---
CCU Subjective - Physician Review Subjective (Free Text): Had intermittent abd pain overnight requiring moderate dose Morphine, and assoc with HR acceleration 140s, remained on Amio drip till this AM, noted to be in sinus tachy, and Amio drip stopped. Had an episode of desaturation to 80s when repositioned flat and rotated to the side yesterday afternoon. CXR repeated at that time showed increase in bilat pleural effusions, and patient responded to one to INHALED Duonebs THERAPY. Other VS and I/Os reviewed. No fever spikes overnight. ROS: No other pertinent negs or positives on 10+ system review. PMSFH: All other Nursing and physician documentation reviewed to date; no new pertinent info noted relevant to current medical problems. EXAM- HEENT: no icterus, no gaze preference, pupils equal and reactive, no icterus NECK: No JVD, supple, carotids equal upstroke bilat/no bruits CHEST: decreased BS bases, otherwise clear bilat, no wheezes audible HEART: regular distant, S1S2, no rubs. ABD: soft, no distention, no tympany, +palp tenderness, BS absent EXT: No peripheral/ digital cyanosis, no calf tenderness or palpable cords, distal pulses intact and symmetrical. NEURO: no gross focal motor deficits SKIN: no rashes, warm and dry. LABS: WBC= 3.2 HGB= 10.0 PLTs= 38K Na= 139 K= 3.2 CL= 104 HCO3=21 BUN/Cr= 28/1.0 BS= 69 Fib = 398 MAJOR PROBLEMS: 1. Acute Resp Insuff-Post op 2. A Fib with RVR 3. Thrombocytopenia 2 Recent Surgery, r/o 2 Sepsis, drug-induced, DIC low likelihood 4. Hypokalemia 5. Leukopenia / Thrombocytopenia PLAN: 1. Off Amio, Lopressor 2.5mg IV Q6H started in the interim. 2. Check Digoxin loading. 3. More K, additional 50MEQ ordered today to the 80 MEQ given yesterday. 4. Lasix prn, stop IVFs today. 5. Get OOB (though patient refused yesterday). 6. Liquid diet initiated today by Surg team. 7. Platelets lower, no s/sx of DIC, no active bleeding, check repeat coags. 8. Stepdown bed. CCU Objective - Vital Signs / Intake & Output Vital Signs (Last 4 hours): Vital Signs Temp Pulse Resp BP Pulse Ox 07/12/17 10:22 92/54 L 07/12/17 10:00 108 H 18 95/54 L 100 07/12/17 08:00 98.4 F 107 H 20 102/69 100 07/12/17 07:00 103 H 14 106/69 100 Intake and Output (Last 8hrs): Intake & Output 07/11/17 07/12/17 07/12/17 22:59 06:59 14:59 Intake Total 1820 760 710 Output Total 360 640 100 Balance 1460 120 610 Intake: IV 920 560 160 Intake, Piggyback 900 200 550 Output: Drainage 200 240 Left 60 50 Right 140 190 Urine 160 400 100 Urethral (Russell) 160 400 100 Other: # Bowel Movements 1 1 - Physical Exam Head: Positive for: Normocephalic Pupils: Positive for: PERRL Conjunctiva: Negative for: Icteric Mouth: Positive for: Moist Mucous Membranes Neck: Negative for: JVD Respiratory/Chest: Positive for: Clear to Auscultation, Decreased Breath Sounds Cardiovascular: Positive for: Irregular Rhythm, Tachycardic. Negative for: Murmurs, Rub Abdomen: Positive for: Tenderness. Negative for: Distention, Normal Bowel Sounds, Mass/Organomegaly Lower Extremity: Positive for: NORMAL PULSES. Negative for: CALF TENDERNESS, Cyanosis Neurological: Positive for: Motor Func Grossly Intact, Normal Sensory Function Skin: Positive for: Warm, Dry. Negative for: Rashes Psychiatric: Positive for: Alert, Oriented x 3 - Medications Active Medications: Active Medications Generic Name Dose Route Start Last Admin Trade Name Mnanq PRN Reason Stop Dose Admin Albuterol/Ipratropium 3 ml 07/08/17 20:00 07/12/17 08:00 Duoneb 3 Mg/0.5 Mg (3 Ml) Ud INH 3 ml RQ6 [facility] Administration Metronidazole 100 mls @ 100 mls/hr 07/08/17 01:00 07/12/17 08:14 Flagyl 500mg/100ml Ns IVPB 100 mls/hr Q8 [facility] Administration Protocol Vancomycin HCl 1 gm/ Sodium 250 mls @ 166.667 mls/hr 07/10/17 11:45 07/12/17 08:17 Chloride IVPB 166.667 mls/hr Q12 [facility] Administration Protocol Cefepime HCl 2 gm/ Sodium 100 mls @ 100 mls/hr 07/11/17 17:00 07/12/17 08:15 Chloride IVPB 100 mls/hr Q8 [facility] Administration Protocol Lactated Ringer's 1,000 mls @ 80 mls/hr 07/11/17 18:30 07/12/17 05:28 Lactated Ringer's IV 07/12/17 18:31 80 mls/hr .[id number] [facility] Administration Potassium Chloride 10 meq/ 105 mls @ 105 mls/hr 07/12/17 10:00 07/12/17 10:20 Sodium Chloride IV 07/12/17 14:59 105 mls/hr Q1 [facility] Administration Metoprolol Tartrate 2.5 mg 07/12/17 10:00 07/12/17 10:22 Lopressor IVP Not Given Q6 [facility] Morphine Sulfate 4 mg 07/10/17 16:15 07/12/17 08:21 Morphine IVP 4 mg Q4 PRN Administration Pain, severe (8-10) Mupirocin 1 applic 07/09/17 20:15 07/12/17 08:14 Bactroban Ointment TOP 1 applic BID [facility] Administration Ondansetron HCl 4 mg 07/07/17 23:32 07/08/17 04:24 Zofran Inj IVP 4 mg Q6H PRN Administration Nausea/Vomiting Pantoprazole Sodium 40 mg 07/09/17 14:30 07/12/17 08:16 Protonix Inj IVP 40 mg DAILY [facility] Administration Sodium Phosphate 135 ml 07/11/17 17:30 07/12/17 06:08 Fleet Enema CO 07/12/17 11:31 135 ml Q6H [facility] Administration - Patient Studies Lab Studies: Lab Studies 07/12/17 07/12/17 07/12/17 Range/Units 06:00 06:00 06:00 WBC 3.2 L (4.8-10.8) K/uL RBC 2.99 L (4.40-5.90) Mil/uL Hgb 10.0 L (12.0-18.0) g/dL Hct 28.7 L (35.0-51.0) % MCV 96.1 H (80.0-94.0) fl MCH 33.5 H (27.0-31.0) pg MCHC 34.9 (33.0-37.0) g/dL RDW 17.2 H (11.5-14.5) % Plt Count 38 L D (130-400) K/uL MPV 7.7 (7.2-11.7) fl Neut % (Auto) 80.6 H (50.0-75.0) % Lymph % (Auto) 14.0 L (20.0-40.0) % Cuming % (Auto) 4.0 (0.0-10.0) % Eos % (Auto) 1.3 (0.0-4.0) % Baso % (Auto) 0.1 (0.0-2.0) % Neut # (Auto) 2.6 (1.8-7.0) K/uL Lymph # (Auto) 0.4 L (1.0-4.3) K/uL Cuming # (Auto) 0.1 (0.0-0.8) K/uL Eos # (Auto) 0.0 (0.0-0.7) K/uL Baso # (Auto) 0.0 (0.0-0.2) K/uL Fibrinogen (200-400) mg/dl Sodium 139 (132-148) mmol/l Potassium 3.2 L (3.6-5.0) MMOL/L Chloride 104 (98-107) mmol/L Carbon Dioxide 21 L (22-30) mmol/L Anion Gap 17 (10-20) BUN 28 H (9-20) mg/dl Creatinine 1.0 (0.8-1.5) mg/dl Est GFR ( Amer) > 60 Est GFR (Non-Af Amer) > 60 POC Glucose (mg/dL) (65-110) mg/dL Random Glucose 69 L (75-110) mg/dL Calcium 6.8 L (8.4-10.2) mg/dL Phosphorus 3.9 (2.5-4.5) mg/dl Magnesium 1.6 (1.6-2.3) MG/DL Total Bilirubin 0.7 (0.2-1.3) mg/dl AST 47 (17-59) U/L ALT 73 H (21-72) U/L Alkaline Phosphatase 46 (38-126) U/L Total Protein 3.8 L (6.3-8.2) G/DL Albumin 1.5 L (3.5-5.0) g/dL Globulin 2.3 (2.2-3.9) gm/dL Albumin/Globulin Ratio 0.6 L (1.0-2.1) Free T4 0.73 L (0.78-2.19) ng/dL TSH 3rd Generation 3.26 (0.46-4.68) mIU/ML Vancomycin Trough (5.0-10.0) ug/mL 07/12/17 07/11/17 07/11/17 Range/Units 05:59 21:20 20:15 WBC (4.8-10.8) K/uL RBC (4.40-5.90) Mil/uL Hgb (12.0-18.0) g/dL Hct (35.0-51.0) % MCV (80.0-94.0) fl MCH (27.0-31.0) pg MCHC (33.0-37.0) g/dL RDW (11.5-14.5) % Plt Count (130-400) K/uL MPV (7.2-11.7) fl Neut % (Auto) (50.0-75.0) % Lymph % (Auto) (20.0-40.0) % Cuming % (Auto) (0.0-10.0) % Eos % (Auto) (0.0-4.0) % Baso % (Auto) (0.0-2.0) % Neut # (Auto) (1.8-7.0) K/uL Lymph # (Auto) (1.0-4.3) K/uL Cuming # (Auto) (0.0-0.8) K/uL Eos # (Auto) (0.0-0.7) K/uL Baso # (Auto) (0.0-0.2) K/uL Fibrinogen 398 (200-400) mg/dl Sodium (132-148) mmol/l Potassium (3.6-5.0) MMOL/L Chloride (98-107) mmol/L Carbon Dioxide (22-30) mmol/L Anion Gap (10-20) BUN (9-20) mg/dl Creatinine (0.8-1.5) mg/dl Est GFR ( Amer) Est GFR (Non-Af Amer) POC Glucose (mg/dL) 72 73 (65-110) mg/dL Random Glucose (75-110) mg/dL Calcium (8.4-10.2) mg/dL Phosphorus (2.5-4.5) mg/dl Magnesium (1.6-2.3) MG/DL Total Bilirubin (0.2-1.3) mg/dl AST (17-59) U/L ALT (21-72) U/L Alkaline Phosphatase (38-126) U/L Total Protein (6.3-8.2) G/DL Albumin (3.5-5.0) g/dL Globulin (2.2-3.9) gm/dL Albumin/Globulin Ratio (1.0-2.1) Free T4 (0.78-2.19) ng/dL TSH 3rd Generation (0.46-4.68) mIU/ML Vancomycin Trough (5.0-10.0) ug/mL 07/11/17 07/11/17 07/11/17 Range/Units 20:15 17:04 11:24 WBC (4.8-10.8) K/uL RBC (4.40-5.90) Mil/uL Hgb (12.0-18.0) g/dL Hct (35.0-51.0) % MCV (80.0-94.0) fl MCH (27.0-31.0) pg MCHC (33.0-37.0) g/dL RDW (11.5-14.5) % Plt Count (130-400) K/uL MPV (7.2-11.7) fl Neut % (Auto) (50.0-75.0) % Lymph % (Auto) (20.0-40.0) % Cuming % (Auto) (0.0-10.0) % Eos % (Auto) (0.0-4.0) % Baso % (Auto) (0.0-2.0) % Neut # (Auto) (1.8-7.0) K/uL Lymph # (Auto) (1.0-4.3) K/uL Cuming # (Auto) (0.0-0.8) K/uL Eos # (Auto) (0.0-0.7) K/uL Baso # (Auto) (0.0-0.2) K/uL Fibrinogen (200-400) mg/dl Sodium (132-148) mmol/l Potassium (3.6-5.0) MMOL/L Chloride (98-107) mmol/L Carbon Dioxide (22-30) mmol/L Anion Gap (10-20) BUN (9-20) mg/dl Creatinine (0.8-1.5) mg/dl Est GFR ( Amer) Est GFR (Non-Af Amer) POC Glucose (mg/dL) 70 80 (65-110) mg/dL Random Glucose (75-110) mg/dL Calcium (8.4-10.2) mg/dL Phosphorus (2.5-4.5) mg/dl Magnesium (1.6-2.3) MG/DL Total Bilirubin (0.2-1.3) mg/dl AST (17-59) U/L ALT (21-72) U/L Alkaline Phosphatase (38-126) U/L Total Protein (6.3-8.2) G/DL Albumin (3.5-5.0) g/dL Globulin (2.2-3.9) gm/dL Albumin/Globulin Ratio (1.0-2.1) Free T4 (0.78-2.19) ng/dL TSH 3rd Generation (0.46-4.68) mIU/ML Vancomycin Trough 14.5 H (5.0-10.0) ug/mL Laboratory Results - last 24 hr 07/11/17 07/11/17 07/11/17 11:24 17:04 20:15 WBC RBC Hgb Hct MCV MCH MCHC RDW Plt Count MPV Neut % (Auto) Lymph % (Auto) Cuming % (Auto) Eos % (Auto) Baso % (Auto) Neut # (Auto) Lymph # (Auto) Cuming # (Auto) Eos # (Auto) Baso # (Auto) Fibrinogen Sodium Potassium Chloride Carbon Dioxide Anion Gap BUN Creatinine Est GFR ( Amer) Est GFR (Non-Af Amer) POC Glucose (mg/dL) 80 70 Random Glucose Calcium Phosphorus Magnesium Total Bilirubin AST ALT Alkaline Phosphatase Total Protein Albumin Globulin Albumin/Globulin Ratio Free T4 TSH 3rd Generation Vancomycin Trough 14.5 H 07/11/17 07/11/17 07/12/17 20:15 21:20 05:59 WBC RBC Hgb Hct MCV MCH MCHC RDW Plt Count MPV Neut % (Auto) Lymph % (Auto) Cuming % (Auto) Eos % (Auto) Baso % (Auto) Neut # (Auto) Lymph # (Auto) Cuming # (Auto) Eos # (Auto) Baso # (Auto) Fibrinogen 398 Sodium Potassium Chloride Carbon Dioxide Anion Gap BUN Creatinine Est GFR ( Amer) Est GFR (Non-Af Amer) POC Glucose (mg/dL) 73 72 Random Glucose Calcium Phosphorus Magnesium Total Bilirubin AST ALT Alkaline Phosphatase Total Protein Albumin Globulin Albumin/Globulin Ratio Free T4 TSH 3rd Generation Vancomycin Trough 07/12/17 07/12/17 07/12/17 06:00 06:00 06:00 WBC 3.2 L RBC 2.99 L Hgb 10.0 L Hct 28.7 L MCV 96.1 H MCH 33.5 H MCHC 34.9 RDW 17.2 H Plt Count 38 L D MPV 7.7 Neut % (Auto) 80.6 H Lymph % (Auto) 14.0 L Cuming % (Auto) 4.0 Eos % (Auto) 1.3 Baso % (Auto) 0.1 Neut # (Auto) 2.6 Lymph # (Auto) 0.4 L Cuming # (Auto) 0.1 Eos # (Auto) 0.0 Baso # (Auto) 0.0 Fibrinogen Sodium 139 Potassium 3.2 L Chloride 104 Carbon Dioxide 21 L Anion Gap 17 BUN 28 H Creatinine 1.0 Est GFR ( Amer) > 60 Est GFR (Non-Af Amer) > 60 POC Glucose (mg/dL) Random Glucose 69 L Calcium 6.8 L Phosphorus 3.9 Magnesium 1.6 Total Bilirubin 0.7 AST 47 ALT 73 H Alkaline Phosphatase 46 Total Protein 3.8 L Albumin 1.5 L Globulin 2.3 Albumin/Globulin Ratio 0.6 L Free T4 0.73 L TSH 3rd Generation 3.26 Vancomycin Trough Fingerstick Blood Sugar Results: 72 Review of Systems - Review of Systems All systems: reviewed and no additional remarkable complaints except (as above) Critical Care Progress Note - Nutrition Nutrition: Nutrition Category Date Time Status NPO Diet [DIET] Diets 07/12/17 Breakfast Active
[2017-07-12] MEDS ORDERED: Dextrose 50% SYRINGE Inj (50 ml) IVP ONE (11:33)
--- NOTE | 2017-07-12 14:55 | CP.PCM.CON ---
History of Present Illness - History of Present Illness History of Present Illness: 72 year old male with a history of HTN, afib, admitted with abdominal pain, found to have perforated small bowel s/p resection and primary anastomosis with pancytopenia. The patient is communicative but drowsy. Review of his medical record shows he was admitted with normal blood counts. He does have black material coming up from his NG tube. Past medical, surgical, family, social history cannot be obtained from the patient. Allergies: Per documentation NKA Review of systems cannot be obtained. Past Patient History - Infectious Disease Hx of Infectious Diseases: None - Tetanus Immunizations Tetanus Immunization: Unknown - Past Medical History & Family History Past Medical History?: Yes - Past Social History Smoking Status: Former Smoker Alcohol: None Drugs: Denies Home Situation {Lives}: Alone - CARDIAC Hx Atrial Fibrillation: Yes Hx Hypertension: Yes - PULMONARY Hx Chronic Obstructive Pulmonary Disease (COPD): Yes Hx Pneumonia: Yes - NEUROLOGICAL Hx Neurological Disorder: No - HEENT Hx HEENT Problems: Yes Other/Comment: Glasses - RENAL Hx Chronic Kidney Disease: No - ENDOCRINE/METABOLIC Hx Endocrine Disorders: No - HEMATOLOGICAL/ONCOLOGICAL Hx Human Immunodeficiency Virus (HIV): No - INTEGUMENTARY Hx Dermatological Problems: No - MUSCULOSKELETAL/RHEUMATOLOGICAL Hx Arthritis: Yes Hx Fractures: Yes Hx Rheumatoid Arthritis: Yes - GASTROINTESTINAL Hx Gastrointestinal Disorders: Yes Hx Ulcer: Yes - GENITOURINARY/GYNECOLOGICAL Hx Genitourinary Disorders: No - PSYCHIATRIC Hx Psychophysiologic Disorder: No Hx Substance Use: No - SURGICAL HISTORY Hx Cholecystectomy: Yes - ANESTHESIA Hx Anesthesia: Yes Hx Anesthesia Reactions: No Hx Malignant Hyperthermia: No Meds Allergies/Adverse Reactions: Allergies Allergy/AdvReac Type Severity Reaction Status Date / Time No Known Allergies Allergy Verified 07/07/17 14:40 - Medications Medications: Current Medications Albuterol/Ipratropium (Duoneb 3 Mg/0.5 Mg (3 Ml) Ud) 3 ml INH RQ6 [facility] Last Admin: 07/12/17 13:54 Dose: 3 ml Metronidazole (Flagyl 500mg/100ml Ns) 100 mls @ 100 mls/hr IVPB Q8 [facility] PRN Reason: Protocol Last Admin: 07/12/17 08:14 Dose: 100 mls/hr Vancomycin HCl 1 gm/ Sodium (Chloride) 250 mls @ 166.667 mls/hr IVPB Q12 [facility] PRN Reason: Protocol Last Admin: 07/12/17 08:17 Dose: 166.667 mls/hr Cefepime HCl 2 gm/ Sodium (Chloride) 100 mls @ 100 mls/hr IVPB Q8 [facility] PRN Reason: Protocol Last Admin: 07/12/17 08:15 Dose: 100 mls/hr Lactated Ringer's (Lactated Ringer's) 1,000 mls @ 80 mls/hr IV .[id number] [facility] Stop: 07/12/17 18:31 Last Admin: 07/12/17 05:28 Dose: 80 mls/hr Potassium Chloride 10 meq/ (Sodium Chloride) 105 mls @ 105 mls/hr IV Q1 [facility] Stop: 07/12/17 14:59 Last Admin: 07/12/17 13:54 Dose: 105 mls/hr Metoprolol Tartrate (Lopressor) 2.5 mg IVP Q6 [facility] Last Admin: 07/12/17 12:19 Dose: 2.5 mg Morphine Sulfate (Morphine) 4 mg IVP Q4 PRN PRN Reason: Pain, severe (8-10) Last Admin: 07/12/17 12:21 Dose: 4 mg Mupirocin (Bactroban Ointment) 1 applic TOP BID [facility] Last Admin: 07/12/17 08:14 Dose: 1 applic Ondansetron HCl (Zofran Inj) 4 mg IVP Q6H PRN PRN Reason: Nausea/Vomiting Last Admin: 07/08/17 04:24 Dose: 4 mg Pantoprazole Sodium (Protonix Inj) 40 mg IVP DAILY [facility] Last Admin: 07/12/17 08:16 Dose: 40 mg Physical Exam - Head Exam Head Exam: ATRAUMATIC - Eye Exam Eye Exam: Normal appearance - ENT Exam ENT Exam: Mucous Membranes Dry - Respiratory Exam Respiratory Exam: NORMAL BREATHING PATTERN - Cardiovascular Exam Cardiovascular Exam: +S1, +S2 - GI/Abdominal Exam GI & Abdominal Exam: Normal Bowel Sounds Results - Vital Signs Recent Vital Signs: Last Vital Signs Temp 98.0 F 07/12/17 12:00 Pulse 109 H 07/12/17 14:00 Resp 12 07/12/17 14:00 BP 98/52 L 07/12/17 14:00 Pulse Ox 97 07/12/17 14:00 - Labs Result Diagrams: 07/12/17 06:00 07/12/17 06:00 Labs: Laboratory Results - last 24 hr 07/11/17 07/11/17 07/11/17 17:04 20:15 20:15 WBC RBC Hgb Hct MCV MCH MCHC RDW Plt Count MPV Neut % (Auto) Lymph % (Auto) Bonner % (Auto) Eos % (Auto) Baso % (Auto) Neut # (Auto) Lymph # (Auto) Bonner # (Auto) Eos # (Auto) Baso # (Auto) Fibrinogen 398 Sodium Potassium Chloride Carbon Dioxide Anion Gap BUN Creatinine Est GFR ( Amer) Est GFR (Non-Af Amer) POC Glucose (mg/dL) 70 Random Glucose Calcium Phosphorus Magnesium Total Bilirubin AST ALT Alkaline Phosphatase Total Protein Albumin Globulin Albumin/Globulin Ratio Free T4 TSH 3rd Generation Vancomycin Trough 14.5 H 07/11/17 07/12/17 07/12/17 21:20 05:59 06:00 WBC 3.2 L RBC 2.99 L Hgb 10.0 L Hct 28.7 L MCV 96.1 H MCH 33.5 H MCHC 34.9 RDW 17.2 H Plt Count 38 L D MPV 7.7 Neut % (Auto) 80.6 H Lymph % (Auto) 14.0 L Bonner % (Auto) 4.0 Eos % (Auto) 1.3 Baso % (Auto) 0.1 Neut # (Auto) 2.6 Lymph # (Auto) 0.4 L Bonner # (Auto) 0.1 Eos # (Auto) 0.0 Baso # (Auto) 0.0 Fibrinogen Sodium Potassium Chloride Carbon Dioxide Anion Gap BUN Creatinine Est GFR ( Amer) Est GFR (Non-Af Amer) POC Glucose (mg/dL) 73 72 Random Glucose Calcium Phosphorus Magnesium Total Bilirubin AST ALT Alkaline Phosphatase Total Protein Albumin Globulin Albumin/Globulin Ratio Free T4 TSH 3rd Generation Vancomycin Trough 07/12/17 07/12/17 07/12/17 06:00 06:00 11:29 WBC RBC Hgb Hct MCV MCH MCHC RDW Plt Count MPV Neut % (Auto) Lymph % (Auto) Bonner % (Auto) Eos % (Auto) Baso % (Auto) Neut # (Auto) Lymph # (Auto) Bonner # (Auto) Eos # (Auto) Baso # (Auto) Fibrinogen Sodium 139 Potassium 3.2 L Chloride 104 Carbon Dioxide 21 L Anion Gap 17 BUN 28 H Creatinine 1.0 Est GFR ( Amer) > 60 Est GFR (Non-Af Amer) > 60 POC Glucose (mg/dL) 68 Random Glucose 69 L Calcium 6.8 L Phosphorus 3.9 Magnesium 1.6 Total Bilirubin 0.7 AST 47 ALT 73 H Alkaline Phosphatase 46 Total Protein 3.8 L Albumin 1.5 L Globulin 2.3 Albumin/Globulin Ratio 0.6 L Free T4 0.73 L TSH 3rd Generation 3.26 Vancomycin Trough Assessment & Plan (1) Pancytopenia Assessment and Plan: likely sepsis related, blood loss meds reviewed; vanco, flagyl, protonix can cause cytopenias but can cont. for now. no heparin exposure will check iron, b12, folate stores check fibrinogen to rule out DIC will review peripheral smear Thank you for this interesting consult. Status: Acute
--- NOTE | 2017-07-12 15:44 | CP.PCM.PN ---
Subjective - Date & Time of Evaluation Date of Evaluation: 07/12/17 Time of Evaluation: 15:00 - Subjective Subjective: Has abdominal pain, thirsty. Objective - Vital Signs/Intake and Output Vital Signs (last 24 hours): Temp Pulse Resp BP Pulse Ox 98.0 F 109 H 12 98/52 L 97 07/12/17 12:00 07/12/17 14:00 07/12/17 14:00 07/12/17 14:00 07/12/17 14:00 Intake and Output: 07/12/17 07/12/17 06:59 18:59 Intake Total 1180 1190 Output Total 640 235 Balance 540 955 - Medications Medications: Current Medications Albuterol/Ipratropium (Duoneb 3 Mg/0.5 Mg (3 Ml) Ud) 3 ml INH RQ6 [facility] Last Admin: 07/12/17 13:54 Dose: 3 ml Metronidazole (Flagyl 500mg/100ml Ns) 100 mls @ 100 mls/hr IVPB Q8 [facility] PRN Reason: Protocol Last Admin: 07/12/17 08:14 Dose: 100 mls/hr Vancomycin HCl 1 gm/ Sodium (Chloride) 250 mls @ 166.667 mls/hr IVPB Q12 [facility] PRN Reason: Protocol Last Admin: 07/12/17 08:17 Dose: 166.667 mls/hr Cefepime HCl 2 gm/ Sodium (Chloride) 100 mls @ 100 mls/hr IVPB Q8 [facility] PRN Reason: Protocol Last Admin: 07/12/17 08:15 Dose: 100 mls/hr Lactated Ringer's (Lactated Ringer's) 1,000 mls @ 80 mls/hr IV .[id number] [facility] Stop: 07/12/17 18:31 Last Admin: 07/12/17 05:28 Dose: 80 mls/hr Metoprolol Tartrate (Lopressor) 2.5 mg IVP Q6 [facility] Last Admin: 07/12/17 12:19 Dose: 2.5 mg Morphine Sulfate (Morphine) 4 mg IVP Q4 PRN PRN Reason: Pain, severe (8-10) Last Admin: 07/12/17 12:21 Dose: 4 mg Mupirocin (Bactroban Ointment) 1 applic TOP BID [facility] Last Admin: 07/12/17 08:14 Dose: 1 applic Ondansetron HCl (Zofran Inj) 4 mg IVP Q6H PRN PRN Reason: Nausea/Vomiting Last Admin: 07/08/17 04:24 Dose: 4 mg Pantoprazole Sodium (Protonix Inj) 40 mg IVP DAILY [facility] Last Admin: 07/12/17 08:16 Dose: 40 mg - Labs Labs: 07/12/17 06:00 07/12/17 06:00 PT 12.7 Seconds (9.8-13.1) 07/08/17 00:50 INR 1.1 (0.9-1.2) 07/08/17 00:50 APTT 31.0 Seconds (25.6-37.1) 07/08/17 00:50 - Head Exam Head Exam: ATRAUMATIC - Eye Exam Eye Exam: Normal appearance - ENT Exam ENT Exam: Mucous Membranes Dry - Respiratory Exam Respiratory Exam: NORMAL BREATHING PATTERN - Cardiovascular Exam Cardiovascular Exam: +S1, +S2 - GI/Abdominal Exam GI & Abdominal Exam: Normal Bowel Sounds Assessment and Plan (1) Pancytopenia Assessment & Plan: WBC and H/H fairly stable no neutropenia platelets down trending - no schistocytes on smear, giant platelets noted no DIC; repeat fibrinogen in AM suspect sepsis related if plt < 20,000 would recommend changing protonix to pepcid and holding Vancomycin if cleared by ID Status: Acute
--- NOTE | 2017-07-12 18:26 | CP.PCM.PN ---
Subjective - Date & Time of Evaluation Date of Evaluation: 07/12/17 Time of Evaluation: 07:00 - Subjective Subjective: c/o abd pain no fever + tachy alert NAD procalcitonin 8 cultures neg Objective - Vital Signs/Intake and Output Vital Signs (last 24 hours): Temp Pulse Resp BP Pulse Ox 98.6 F 158 H 24 101/54 L 96 07/12/17 16:00 07/12/17 18:22 07/12/17 18:00 07/12/17 18:22 07/12/17 18:00 Intake and Output: 07/12/17 07/12/17 06:59 18:59 Intake Total 1180 1740 Output Total 640 695 Balance 540 1045 - Medications Medications: Current Medications Albuterol/Ipratropium (Duoneb 3 Mg/0.5 Mg (3 Ml) Ud) 3 ml INH RQ6 [facility] Last Admin: 07/12/17 13:54 Dose: 3 ml Metronidazole (Flagyl 500mg/100ml Ns) 100 mls @ 100 mls/hr IVPB Q8 [facility] PRN Reason: Protocol Last Admin: 07/12/17 16:02 Dose: 100 mls/hr Vancomycin HCl 1 gm/ Sodium (Chloride) 250 mls @ 166.667 mls/hr IVPB Q12 [facility] PRN Reason: Protocol Last Admin: 07/12/17 08:17 Dose: 166.667 mls/hr Cefepime HCl 2 gm/ Sodium (Chloride) 100 mls @ 100 mls/hr IVPB Q8 [facility] PRN Reason: Protocol Last Admin: 07/12/17 16:03 Dose: 100 mls/hr Lactated Ringer's (Lactated Ringer's) 1,000 mls @ 80 mls/hr IV .[id number] [facility] Stop: 07/12/17 18:31 Last Admin: 07/12/17 05:28 Dose: 80 mls/hr Metoprolol Tartrate (Lopressor) 2.5 mg IVP Q6 [facility] Last Admin: 07/12/17 16:05 Dose: 2.5 mg Morphine Sulfate (Morphine) 4 mg IVP Q4 PRN PRN Reason: Pain, severe (8-10) Last Admin: 07/12/17 16:13 Dose: 4 mg Mupirocin (Bactroban Ointment) 1 applic TOP BID [facility] Last Admin: 07/12/17 16:02 Dose: 1 applic Ondansetron HCl (Zofran Inj) 4 mg IVP Q6H PRN PRN Reason: Nausea/Vomiting Last Admin: 07/08/17 04:24 Dose: 4 mg Pantoprazole Sodium (Protonix Inj) 40 mg IVP DAILY [facility] Last Admin: 07/12/17 08:16 Dose: 40 mg - Labs Labs: 07/12/17 06:00 07/12/17 06:00 PT 12.7 Seconds (9.8-13.1) 07/08/17 00:50 INR 1.1 (0.9-1.2) 07/08/17 00:50 APTT 31.0 Seconds (25.6-37.1) 07/08/17 00:50 - Constitutional Appears: Cachectic, Chronically Ill - Head Exam Head Exam: NORMOCEPHALIC - Eye Exam Eye Exam: absent: Scleral icterus - ENT Exam ENT Exam: Mucous Membranes Dry - Neck Exam Neck Exam: absent: Lymphadenopathy - Respiratory Exam Respiratory Exam: Decreased Breath Sounds - Cardiovascular Exam Cardiovascular Exam: REGULAR RHYTHM - GI/Abdominal Exam GI & Abdominal Exam: Distended, Tenderness Additional comments: + RAMIN drains x 2 - Rectal Exam Rectal Exam: Deferred - Extremities Exam Extremities Exam: Pedal Edema - Back Exam Back Exam: absent: CVA tenderness (L), CVA tenderness (R) - Neurological Exam Neurological Exam: Alert, Awake, Oriented x3 Neuro motor strength exam: Left Upper Extremity: 3, Right Upper Extremity: 3, Left Lower Extremity: 3, Right Lower Extremity: 3 - Psychiatric Exam Psychiatric exam: Depressed - Skin Skin Exam: Dry Assessment and Plan (1) Abdominal pain Status: Acute (2) COPD (chronic obstructive pulmonary disease) Status: Acute (3) Essential (primary) hypertension Status: Acute (4) Hx of atrial fibrillation, no current medication Status: Acute (5) Intestinal perforation Status: Acute (6) Perforated abdominal viscus Status: Acute (7) Sepsis Status: Acute - Assessment and Plan (Free Text) Assessment: cultures neg thus far heme on board iv rx in progress
[2017-07-13] MEDS: Morphine 4 MG/ML VIAL IVP PRN ×2 (00:22→04:13)
[2017-07-13] MEDS: metroNIDAZOLE 500mg/100ml NS 100 ML IVPB SCH (00:26)
[2017-07-13] MEDS: Metoprolol 1 mg/ml Inj IVP SCH ×3 (00:56→13:05)
[2017-07-13] MEDS: Cefepime 2 GM in Sodium Chloride 0.9% 100 ML IVPB SCH ×3 (00:57→16:10)
[2017-07-13] MEDS: Albuterol-Ipratrop 3 mg / 0.5 (3 ml) UD INH SCH ×4 (01:09→19:55)
[2017-07-13 07:23] LABS: ALB/GLOB RATIO 0.7 (1.0-2.1); ALBUMIN 1.6 g/dL (3.5-5.0); ALT/SGPT 64 U/L (21-72); AST/SGOT 28 U/L (17-59); BLOOD UREA NITROGEN 31 mg/dl (9-20); CALCIUM 6.7 mg/dL (8.4-10.2); GFR AFRICAN-AMERICAN > 60; GFR NON-AFRICAN AMERICAN > 60
[2017-07-13 07:25] LABS: BASO % 0.1 % (0.0-2.0); EOS # 0.1 K/uL (0.0-0.7); EOS % 2.6 % (0.0-4.0); HEMOGLOBIN 10.3 g/dL (12.0-18.0); LYMPH # 0.5 K/uL (1.0-4.3); LYMPH % 15.4 % (20.0-40.0); MEAN CELL VOLUME 96.8 fl (80.0-94.0); MEAN CORPUSCULAR HGB CONC 34.1 g/dL (33.0-37.0); MEAN PLATELET VOLUME 8.6 fl (7.2-11.7); MONO # 0.1 K/uL (0.0-0.8); MONO % 4.4 % (0.0-10.0); NEUT # 2.6 K/uL (1.8-7.0); NEUT % 77.5 % (50.0-75.0); NRBC % 0.4 % (0.0-0.0); RBC 3.11 Mil/uL (4.40-5.90); RED CELL DISTRIBUTION WIDTH 16.9 % (11.5-14.5); WHITE BLOOD COUNT 3.3 K/uL (4.8-10.8)
[2017-07-13] MEDS ORDERED: HYDROmorphone 1 mg/ml ISec IVP PRN (07:49)
--- NOTE | 2017-07-13 08:02 | CP.PCM.PN ---
<Delfino Lagos - Last Filed: 07/13/17 07:59> Subjective - Date & Time of Evaluation Date of Evaluation: 07/13/17 Time of Evaluation: 07:59 - Subjective Subjective: SURGERY PROGRESS NOTE FOR DR. WORTHY 72M seen and examined at bedside. Patient is AAOx3 and is in NAD. Denies of any acute overnight events. Reports that he has little pain but is tolerating it well. Denies of having any F/N/V/C/SOB/CP. Objective - Vital Signs/Intake and Output Vital Signs (last 24 hours): Temp Pulse Resp BP Pulse Ox 98.7 F 108 H 13 107/71 100 07/13/17 04:00 07/13/17 06:52 07/13/17 06:00 07/13/17 06:52 07/13/17 06:00 Intake and Output: 07/13/17 07/13/17 06:59 18:59 Intake Total 900 Output Total 440 Balance 460 - Medications Medications: Current Medications Acetaminophen (Tylenol 325mg Tab) 650 mg PO Q4 PRN PRN Reason: Pain, moderate (4-7) Albuterol/Ipratropium (Duoneb 3 Mg/0.5 Mg (3 Ml) Ud) 3 ml INH RQ6 [facility] Last Admin: 07/13/17 07:33 Dose: 3 ml Hydromorphone HCl (Dilaudid) 1 mg IVP Q4 PRN PRN Reason: Pain, severe (8-10) Vancomycin HCl 1 gm/ Sodium (Chloride) 250 mls @ 166.667 mls/hr IVPB Q12 [facility] PRN Reason: Protocol Last Admin: 07/12/17 20:32 Dose: 166.667 mls/hr Cefepime HCl 2 gm/ Sodium (Chloride) 100 mls @ 100 mls/hr IVPB Q8 [facility] PRN Reason: Protocol Last Admin: 07/13/17 00:57 Dose: 100 mls/hr Metoprolol Tartrate (Lopressor) 2.5 mg IVP Q6H [facility] Last Admin: 07/13/17 06:52 Dose: 2.5 mg Mupirocin (Bactroban Ointment) 1 applic TOP BID [facility] Last Admin: 07/12/17 16:02 Dose: 1 applic Ondansetron HCl (Zofran Inj) 4 mg IVP Q6H PRN PRN Reason: Nausea/Vomiting Last Admin: 07/08/17 04:24 Dose: 4 mg Pantoprazole Sodium (Protonix Inj) 40 mg IVP DAILY [facility] Last Admin: 07/12/17 08:16 Dose: 40 mg - Labs Labs: 07/13/17 06:00 07/13/17 06:00 PT 12.7 Seconds (9.8-13.1) 07/08/17 00:50 INR 1.1 (0.9-1.2) 07/08/17 00:50 APTT 31.0 Seconds (25.6-37.1) 07/08/17 00:50 - Constitutional Appears: Well, Non-toxic, No Acute Distress - Head Exam Head Exam: ATRAUMATIC - Eye Exam Eye Exam: Normal appearance - ENT Exam ENT Exam: Normal Exam - Neck Exam Neck Exam: Full ROM - Respiratory Exam Respiratory Exam: NORMAL BREATHING PATTERN - GI/Abdominal Exam GI & Abdominal Exam: Soft, Tenderness. absent: Rigid, Hernia, Mass Additional comments: sero sanguineous drainage noted after removal of one staple. Mild erythema noted along the incision site. Tenderness on palpation of the RLQ and LLQ as well as along the incision site Assessment and Plan - Assessment and Plan (Free Text) Assessment: 72M s/p exploratory laparotomy with findings of perforated viscous. Small bowel resection with anastomosis POD#5 Plan: Monitor drain output Pain control Replace electrolytes Ensure for diet Follow up CBC Will continue to follow patient <Mook Worthy - Last Filed: 07/15/17 18:49> Objective - Vital Signs/Intake and Output Vital Signs (last 24 hours): Temp Pulse Resp BP Pulse Ox 98.8 F 89 18 93/56 L 100 07/15/17 16:24 07/15/17 18:00 07/15/17 18:00 07/15/17 18:00 07/15/17 18:00 Intake and Output: 07/15/17 07/15/17 06:59 18:59 Intake Total 422 400 Output Total 650 1650 Balance -228 -1250 - Medications Medications: Current Medications Acetaminophen (Tylenol 325mg Tab) 650 mg PO Q4 PRN PRN Reason: Pain, moderate (4-7) Albuterol/Ipratropium (Duoneb 3 Mg/0.5 Mg (3 Ml) Ud) 3 ml INH RQ6 [facility] Last Admin: 07/15/17 13:17 Dose: 3 ml Diltiazem HCl (Cardizem) 60 mg PO Q8 [facility] Last Admin: 07/15/17 16:56 Dose: Not Given Docusate Sodium (Colace) 100 mg PO TID [facility] Last Admin: 07/15/17 16:56 Dose: 100 mg Furosemide (Lasix) 20 mg IVP DAILY [facility] Last Admin: 07/15/17 10:11 Dose: 20 mg Hydromorphone HCl (Dilaudid) 1 mg IVP Q4 PRN PRN Reason: Pain, severe (8-10) Last Admin: 07/15/17 12:02 Dose: 1 mg Linezolid 600 mg in NS 300 ml (Zyvox 600mg/300ml Ns) 600 mg in 300 mls @ 300 mls/hr IVPB Q12 [facility] PRN Reason: Protocol Last Admin: 07/15/17 10:15 Dose: 300 mls/hr Amiodarone HCl 450 mg/ Sodium (Chloride) 259 mls @ 34.53 mls/hr IVPB .[id number] [facility]; 1 MG/MIN PRN Reason: Protocol Last Admin: 07/14/17 01:00 Dose: 34.53 mls/hr Cefepime HCl 1 gm/ Sodium (Chloride) 100 mls @ 100 mls/hr IVPB Q12 [facility] PRN Reason: Protocol Mupirocin (Bactroban Ointment) 1 applic TOP BID [facility] Last Admin: 07/15/17 16:55 Dose: 1 applic Ondansetron HCl (Zofran Inj) 4 mg IVP Q6H PRN PRN Reason: Nausea/Vomiting Last Admin: 07/13/17 21:22 Dose: 4 mg Pantoprazole Sodium (Protonix Inj) 40 mg IVP DAILY [facility] Last Admin: 07/15/17 10:15 Dose: 40 mg Saccharomyces Boulardii (Florastor) 250 mg PO BID [facility] Last Admin: 07/15/17 16:57 Dose: 250 mg - Labs Labs: 07/15/17 04:28 07/15/17 04:28 PT 27.1 Seconds (9.8-13.1) H 07/14/17 04:27 INR 2.5 (0.9-1.2) H 07/14/17 04:27 APTT 31.0 Seconds (25.6-37.1) 07/08/17 00:50 Attending/Attestation - Attestation I have personally seen and examined this patient.: Yes I have fully participated in the care of the patient.: Yes I have reviewed all pertinent clinical information, including history, physical exam and plan: Yes Notes (Text): Pt was seen and examined at bedside Agree with above note and assessment OOB to walk C/w enema and colace Advance to soft diet c.w current mx Plan d.w pt and nurse in detail.
[2017-07-13] MEDS: HYDROmorphone 0.5 mg/0.5 ml ISec IVP PRN ×4 (08:08→20:23)
[2017-07-13] MEDS ORDERED: Magnesium Sulfate 1 gm in D5W 1 GM/100 ML BAG IVPB ONE (08:20)
--- NOTE | 2017-07-13 09:16 | CP.PCM.PN ---
Subjective - Date & Time of Evaluation Date of Evaluation: 07/13/17 Time of Evaluation: 10:30 - Subjective Subjective: Stable overnight. Still c/o abd pain. Pain meds readjusted by Sx team. Tolerating PO ensure. No vomiting or nausea. Had 2 Bm Yesterday. Denies passing gas. Denies CP, palpitations, SOB, headache. Afebrile Objective - Vital Signs/Intake and Output Vital Signs (last 24 hours): Temp Pulse Resp BP Pulse Ox 98.6 F 112 H 20 102/64 96 07/13/17 08:00 07/13/17 08:00 07/13/17 08:00 07/13/17 08:00 07/13/17 08:00 Intake and Output: 07/13/17 07/13/17 06:59 18:59 Intake Total 900 Output Total 440 Balance 460 - Medications Medications: Current Medications Acetaminophen (Tylenol 325mg Tab) 650 mg PO Q4 PRN PRN Reason: Pain, moderate (4-7) Albuterol/Ipratropium (Duoneb 3 Mg/0.5 Mg (3 Ml) Ud) 3 ml INH RQ6 [facility] Last Admin: 07/13/17 07:33 Dose: 3 ml Hydromorphone HCl (Dilaudid) 1 mg IVP Q4 PRN PRN Reason: Pain, severe (8-10) Last Admin: 07/13/17 08:08 Dose: 1 mg Vancomycin HCl 1 gm/ Sodium (Chloride) 250 mls @ 166.667 mls/hr IVPB Q12 [facility] PRN Reason: Protocol Last Admin: 07/13/17 08:22 Dose: 166.667 mls/hr Cefepime HCl 2 gm/ Sodium (Chloride) 100 mls @ 100 mls/hr IVPB Q8 [facility] PRN Reason: Protocol Last Admin: 07/13/17 08:11 Dose: 100 mls/hr Potassium Chloride 10 meq/ (Sodium Chloride) 105 mls @ 105 mls/hr IV Q1 [facility] Stop: 07/13/17 14:59 Magnesium Sulfate/Dextrose (Magnesium Sulfate 1 Gm/100 Ml D5w) 1 gm in 100 mls @ 100 mls/hr IVPB ONCE ONE PRN Reason: 1 GM/HR Stop: 07/13/17 09:19 Metoprolol Tartrate (Lopressor) 2.5 mg IVP Q6H [facility] Last Admin: 07/13/17 06:52 Dose: 2.5 mg Mupirocin (Bactroban Ointment) 1 applic TOP BID [facility] Last Admin: 07/13/17 08:11 Dose: 1 applic Ondansetron HCl (Zofran Inj) 4 mg IVP Q6H PRN PRN Reason: Nausea/Vomiting Last Admin: 07/08/17 04:24 Dose: 4 mg Pantoprazole Sodium (Protonix Inj) 40 mg IVP DAILY [facility] Last Admin: 07/13/17 08:12 Dose: 40 mg - Labs Labs: 07/13/17 06:00 07/13/17 06:00 PT 12.7 Seconds (9.8-13.1) 07/08/17 00:50 INR 1.1 (0.9-1.2) 07/08/17 00:50 APTT 31.0 Seconds (25.6-37.1) 07/08/17 00:50 - Constitutional Appears: Non-toxic, Chronically Ill - Eye Exam Eye Exam: PERRL - ENT Exam ENT Exam: Mucous Membranes Moist - Respiratory Exam Respiratory Exam: Clear to Ausculation Bilateral, NORMAL BREATHING PATTERN. absent: Decreased Breath Sounds, Respiratory Distress - Cardiovascular Exam Cardiovascular Exam: REGULAR RHYTHM, +S1, +S2. absent: Gallop - GI/Abdominal Exam GI & Abdominal Exam: Distended, Tenderness. absent: Normal Bowel Sounds, Rebound - Extremities Exam Extremities Exam: Full ROM, Normal Capillary Refill. absent: Calf Tenderness, Pedal Edema, Tenderness - Neurological Exam Neurological Exam: Alert, Awake, Oriented x3 - Skin Skin Exam: Warm. absent: Mottled, Pallor Assessment and Plan - Assessment and Plan (Free Text) Assessment: Sepsis S/P Small bowel resection POD5 Afebrile Still c/o abd pain. Distended. No passing gas. Abd Xray stat ordered Trombocytopenia worsening: Discussed with ID. Will DC Vanco and will start Zyvox. F/U closely. No signs no active bleeding. Hem-Onc consult appreciated Fibrinogen WNL C/w supportive measures C/W Flagyl/Cefepime
[2017-07-13] MEDS ORDERED: Linezolid 600 mg in D5W 300 ml 600 MG/300 ML BAG IVPB SCH (10:45)
[2017-07-13] MEDS: LINEZOLID IVPB SCH ×2 (12:03→20:24)
[2017-07-13] MEDS: NS IVPB SCH ×2 (12:03→20:24)
--- NOTE | 2017-07-13 13:23 | CP.CCUPN ---
CCU Subjective - Physician Review Subjective (Free Text): NGT found nearly out, subsequently removed from patient, Surgery team notified. Patient has been started on PO liquid diet yesterday. HR remains slightly tachycardic at times, up to 110s, now on scheduled dosing of IV Lopressor. Other Vitals and I/Os reviewed. No fever spikes overnight. ROS: No other pertinent negs or positives on 10+ system review, intubated. PMSFH: All other historical Nursing and physician documentation reviewed to date; no new pertinent info noted relevant to current medical problems. EXAM- HEENT: no icterus, no gaze preference, pupils equal and reactive, no icterus NECK: No JVD, supple, carotids equal upstroke bilat/no bruits CHEST: decreased BS bases, otherwise clear bilat, no wheezes audible HEART: regular distant, S1S2, no rubs. ABD: soft, + distention, no tympany, no palp tenderness, BS not audible. EXT: + edema. No peripheral/ digital cyanosis, no calf tenderness or palpable cords, distal pulses intact and symmetrical. NEURO: no gross focal motor deficits SKIN: no rashes, warm and dry. LABS: WBC= 3.3 HGB= 10.3 PLTs= 26K Na= 139 K= 3.2 CL= 105 HCO3= 22 BUN/Cr= 31/1.0 BS= 118 MAJOR PROBLEMS: 1. Acute Resp Insuff-Post op 2. s/p A Fib with RVR 3. Thrombocytopenia 2 Recent Surgery, r/o 2 Sepsis, drug-induced, DIC low likelihood 4. Hypokalemia 5. Leukopenia / Thrombocytopenia PLAN: 1. Off Amio, Lopressor 2.5mg IV Q6H started in the interim. 2. More K, but no IVPB forms of KCL for administration as per Pharmacy; will supplement PO liquid. 3. Get OOB (though patient refused yesterday). 4. Platelets lower, no s/sx of DIC, no active bleeding, check repeat coags. CCU Objective - Vital Signs / Intake & Output Vital Signs (Last 4 hours): Vital Signs Temp Pulse Resp BP Pulse Ox 07/13/17 13:05 87/56 L 07/13/17 12:00 98.2 F 149 H 23 85/54 L 96 07/13/17 10:00 98 H 19 100/68 100 Intake and Output (Last 8hrs): Intake & Output 07/12/17 07/13/17 07/13/17 22:59 06:59 14:59 Intake Total 690 463 7218 Output Total 460 440 100 Balance 190 360 940 Weight 158 lb Intake: Intake, Piggyback 300 200 750 Oral 350 600 290 Output: Drainage 340 90 100 Left 20 Right 320 90 100 Urine 120 350 Urethral (Russell) 120 350 Other: # Bowel Movements 0 0 - Physical Exam Head: Positive for: Normocephalic Pupils: Positive for: PERRL Conjunctiva: Negative for: Icteric Mouth: Positive for: Moist Mucous Membranes Neck: Negative for: JVD Respiratory/Chest: Positive for: Clear to Auscultation, Decreased Breath Sounds Cardiovascular: Positive for: Irregular Rhythm, Tachycardic. Negative for: Murmurs, Rub Abdomen: Positive for: Tenderness. Negative for: Distention, Normal Bowel Sounds, Mass/Organomegaly Lower Extremity: Positive for: NORMAL PULSES. Negative for: CALF TENDERNESS, Cyanosis Neurological: Positive for: Motor Func Grossly Intact, Normal Sensory Function Skin: Positive for: Warm, Dry. Negative for: Rashes Psychiatric: Positive for: Alert, Oriented x 3 - Medications Active Medications: Active Medications Generic Name Dose Route Start Last Admin Trade Name Freq PRN Reason Stop Dose Admin Acetaminophen 650 mg 07/13/17 07:49 Tylenol 325mg Tab PO Q4 PRN Pain, moderate (4-7) Albuterol/Ipratropium 3 ml 07/08/17 20:00 07/13/17 13:13 Duoneb 3 Mg/0.5 Mg (3 Ml) Ud INH Not Given RQ6 CHARMAINE Hydromorphone HCl 1 mg 07/13/17 07:50 07/13/17 12:02 Dilaudid IVP 1 mg Q4 PRN Administration Pain, severe (8-10) Cefepime HCl 2 gm/ Sodium 100 mls @ 100 mls/hr 07/11/17 17:00 07/13/17 08:11 Chloride IVPB 100 mls/hr Q8 CHARMAINE Administration Protocol Linezolid 600 mg in NS 300 ml 600 mg in 300 mls @ 300 mls/hr 07/13/17 11:00 07/13/17 12:03 Zyvox 600mg/300ml Ns IVPB 300 mls/hr Q12 CHARMAINE Administration Protocol Metoprolol Tartrate 2.5 mg 07/13/17 07:00 07/13/17 13:05 Lopressor IVP Not Given Q6H [facility] Mupirocin 1 applic 07/09/17 20:15 07/13/17 08:11 Bactroban Ointment TOP 1 applic BID [facility]MAINE Administration Ondansetron HCl 4 mg 07/07/17 23:32 07/08/17 04:24 Zofran Inj IVP 4 mg Q6H PRN Administration Nausea/Vomiting Pantoprazole Sodium 40 mg 07/09/17 14:30 07/13/17 08:12 Protonix Inj IVP 40 mg DAILY [facility]MAINE Administration Potassium Chloride 20 meq 07/13/17 13:00 Potassium Chloride Oral Soln PO 07/14/17 13:01 TID [facility]MAINE Saccharomyces Boulardii 250 mg 07/13/17 17:00 Florastor PO BID CHARMAINE - Patient Studies Lab Studies: Lab Studies 07/13/17 07/13/17 07/13/17 Range/Units 11:13 06:33 06:00 WBC (4.8-10.8) K/uL RBC (4.40-5.90) Mil/uL Hgb (12.0-18.0) g/dL Hct (35.0-51.0) % MCV (80.0-94.0) fl MCH (27.0-31.0) pg MCHC (33.0-37.0) g/dL RDW (11.5-14.5) % Plt Count (130-400) K/uL MPV (7.2-11.7) fl Neut % (Auto) (50.0-75.0) % Lymph % (Auto) (20.0-40.0) % [place] % (Auto) (0.0-10.0) % Eos % (Auto) (0.0-4.0) % Baso % (Auto) (0.0-2.0) % Neut # (Auto) (1.8-7.0) K/uL Lymph # (Auto) (1.0-4.3) K/uL [place] # (Auto) (0.0-0.8) K/uL Eos # (Auto) (0.0-0.7) K/uL Baso # (Auto) (0.0-0.2) K/uL Sodium 139 (132-148) mmol/l Potassium 3.2 L (3.6-5.0) MMOL/L Chloride 105 (98-107) mmol/L Carbon Dioxide 22 (22-30) mmol/L Anion Gap 15 (10-20) BUN 31 H (9-20) mg/dl Creatinine 1.0 (0.8-1.5) mg/dl Est GFR ( Amer) > 60 Est GFR (Non-Af Amer) > 60 POC Glucose (mg/dL) 129 H 122 H (65-110) mg/dL Random Glucose 118 H (75-110) mg/dL Calcium 6.7 L (8.4-10.2) mg/dL Phosphorus 4.5 (2.5-4.5) mg/dl Magnesium 1.6 (1.6-2.3) MG/DL Total Bilirubin 0.7 (0.2-1.3) mg/dl AST 28 (17-59) U/L ALT 64 (21-72) U/L Alkaline Phosphatase 39 (38-126) U/L Total Protein 4.0 L (6.3-8.2) G/DL Albumin 1.6 L (3.5-5.0) g/dL Globulin 2.3 (2.2-3.9) gm/dL Albumin/Globulin Ratio 0.7 L (1.0-2.1) Procalcitonin (0.19-0.49) NG/ML 07/13/17 07/12/17 07/12/17 Range/Units 06:00 21:35 16:47 WBC 3.3 L (4.8-10.8) K/uL RBC 3.11 L (4.40-5.90) Mil/uL Hgb 10.3 L (12.0-18.0) g/dL Hct 30.1 L (35.0-51.0) % MCV 96.8 H (80.0-94.0) fl MCH 33.0 H (27.0-31.0) pg MCHC 34.1 (33.0-37.0) g/dL RDW 16.9 H (11.5-14.5) % Plt Count 26 L* D (130-400) K/uL MPV 8.6 (7.2-11.7) fl Neut % (Auto) 77.5 H (50.0-75.0) % Lymph % (Auto) 15.4 L (20.0-40.0) % [place] % (Auto) 4.4 (0.0-10.0) % Eos % (Auto) 2.6 (0.0-4.0) % Baso % (Auto) 0.1 (0.0-2.0) % Neut # (Auto) 2.6 (1.8-7.0) K/uL Lymph # (Auto) 0.5 L (1.0-4.3) K/uL [place] # (Auto) 0.1 (0.0-0.8) K/uL Eos # (Auto) 0.1 (0.0-0.7) K/uL Baso # (Auto) 0.0 (0.0-0.2) K/uL Sodium (132-148) mmol/l Potassium (3.6-5.0) MMOL/L Chloride (98-107) mmol/L Carbon Dioxide (22-30) mmol/L Anion Gap (10-20) BUN (9-20) mg/dl Creatinine (0.8-1.5) mg/dl Est GFR ( Amer) Est GFR (Non-Af Amer) POC Glucose (mg/dL) 138 H 109 (65-110) mg/dL Random Glucose (75-110) mg/dL Calcium (8.4-10.2) mg/dL Phosphorus (2.5-4.5) mg/dl Magnesium (1.6-2.3) MG/DL Total Bilirubin (0.2-1.3) mg/dl AST (17-59) U/L ALT (21-72) U/L Alkaline Phosphatase (38-126) U/L Total Protein (6.3-8.2) G/DL Albumin (3.5-5.0) g/dL Globulin (2.2-3.9) gm/dL Albumin/Globulin Ratio (1.0-2.1) Procalcitonin (0.19-0.49) NG/ML 07/12/17 Range/Units 06:00 WBC (4.8-10.8) K/uL RBC (4.40-5.90) Mil/uL Hgb (12.0-18.0) g/dL Hct (35.0-51.0) % MCV (80.0-94.0) fl MCH (27.0-31.0) pg MCHC (33.0-37.0) g/dL RDW (11.5-14.5) % Plt Count (130-400) K/uL MPV (7.2-11.7) fl Neut % (Auto) (50.0-75.0) % Lymph % (Auto) (20.0-40.0) % [place] % (Auto) (0.0-10.0) % Eos % (Auto) (0.0-4.0) % Baso % (Auto) (0.0-2.0) % Neut # (Auto) (1.8-7.0) K/uL Lymph # (Auto) (1.0-4.3) K/uL [place] # (Auto) (0.0-0.8) K/uL Eos # (Auto) (0.0-0.7) K/uL Baso # (Auto) (0.0-0.2) K/uL Sodium (132-148) mmol/l Potassium (3.6-5.0) MMOL/L Chloride (98-107) mmol/L Carbon Dioxide (22-30) mmol/L Anion Gap (10-20) BUN (9-20) mg/dl Creatinine (0.8-1.5) mg/dl Est GFR ( Amer) Est GFR (Non-Af Amer) POC Glucose (mg/dL) (65-110) mg/dL Random Glucose (75-110) mg/dL Calcium (8.4-10.2) mg/dL Phosphorus (2.5-4.5) mg/dl Magnesium (1.6-2.3) MG/DL Total Bilirubin (0.2-1.3) mg/dl AST (17-59) U/L ALT (21-72) U/L Alkaline Phosphatase (38-126) U/L Total Protein (6.3-8.2) G/DL Albumin (3.5-5.0) g/dL Globulin (2.2-3.9) gm/dL Albumin/Globulin Ratio (1.0-2.1) Procalcitonin 8.48 H (0.19-0.49) NG/ML Laboratory Results - last 24 hr 07/12/17 07/12/17 07/12/17 06:00 16:47 21:35 WBC RBC Hgb Hct MCV MCH MCHC RDW Plt Count MPV Neut % (Auto) Lymph % (Auto) [place] % (Auto) Eos % (Auto) Baso % (Auto) Neut # (Auto) Lymph # (Auto) [place] # (Auto) Eos # (Auto) Baso # (Auto) Sodium Potassium Chloride Carbon Dioxide Anion Gap BUN Creatinine Est GFR ( Amer) Est GFR (Non-Af Amer) POC Glucose (mg/dL) 109 138 H Random Glucose Calcium Phosphorus Magnesium Total Bilirubin AST ALT Alkaline Phosphatase Total Protein Albumin Globulin Albumin/Globulin Ratio Procalcitonin 8.48 H 07/13/17 07/13/17 07/13/17 06:00 06:00 06:33 WBC 3.3 L RBC 3.11 L Hgb 10.3 L Hct 30.1 L MCV 96.8 H MCH 33.0 H MCHC 34.1 RDW 16.9 H Plt Count 26 L* D MPV 8.6 Neut % (Auto) 77.5 H Lymph % (Auto) 15.4 L [place] % (Auto) 4.4 Eos % (Auto) 2.6 Baso % (Auto) 0.1 Neut # (Auto) 2.6 Lymph # (Auto) 0.5 L [place] # (Auto) 0.1 Eos # (Auto) 0.1 Baso # (Auto) 0.0 Sodium 139 Potassium 3.2 L Chloride 105 Carbon Dioxide 22 Anion Gap 15 BUN 31 H Creatinine 1.0 Est GFR ( Amer) > 60 Est GFR (Non-Af Amer) > 60 POC Glucose (mg/dL) 122 H Random Glucose 118 H Calcium 6.7 L Phosphorus 4.5 Magnesium 1.6 Total Bilirubin 0.7 AST 28 ALT 64 Alkaline Phosphatase 39 Total Protein 4.0 L Albumin 1.6 L Globulin 2.3 Albumin/Globulin Ratio 0.7 L Procalcitonin 07/13/17 11:13 WBC RBC Hgb Hct MCV MCH MCHC RDW Plt Count MPV Neut % (Auto) Lymph % (Auto) [place] % (Auto) Eos % (Auto) Baso % (Auto) Neut # (Auto) Lymph # (Auto) [place] # (Auto) Eos # (Auto) Baso # (Auto) Sodium Potassium Chloride Carbon Dioxide Anion Gap BUN Creatinine Est GFR ( Amer) Est GFR (Non-Af Amer) POC Glucose (mg/dL) 129 H Random Glucose Calcium Phosphorus Magnesium Total Bilirubin AST ALT Alkaline Phosphatase Total Protein Albumin Globulin Albumin/Globulin Ratio Procalcitonin Fingerstick Blood Sugar Results: 129 Review of Systems - Review of Systems All systems: reviewed and no additional remarkable complaints except (as above)
--- NOTE | 2017-07-13 13:42 | CP.PCM.PN ---
Subjective - Date & Time of Evaluation Date of Evaluation: 07/13/17 Time of Evaluation: 08:00 - Subjective Subjective: no fever abd pain + vanco d/c'd cont zyvox/cefepime Objective - Vital Signs/Intake and Output Vital Signs (last 24 hours): Temp Pulse Resp BP Pulse Ox 98.2 F 149 H 23 87/56 L 96 07/13/17 12:00 07/13/17 12:00 07/13/17 12:00 07/13/17 13:05 07/13/17 12:00 Intake and Output: 07/13/17 07/13/17 06:59 18:59 Intake Total 900 1040 Output Total 440 100 Balance 460 940 - Medications Medications: Current Medications Acetaminophen (Tylenol 325mg Tab) 650 mg PO Q4 PRN PRN Reason: Pain, moderate (4-7) Albuterol/Ipratropium (Duoneb 3 Mg/0.5 Mg (3 Ml) Ud) 3 ml INH RQ6 CHARMAINE Last Admin: 07/13/17 13:13 Dose: Not Given Hydromorphone HCl (Dilaudid) 1 mg IVP Q4 PRN PRN Reason: Pain, severe (8-10) Last Admin: 07/13/17 12:02 Dose: 1 mg Cefepime HCl 2 gm/ Sodium (Chloride) 100 mls @ 100 mls/hr IVPB Q8 CHARMAINE PRN Reason: Protocol Last Admin: 07/13/17 08:11 Dose: 100 mls/hr Linezolid 600 mg in NS 300 ml (Zyvox 600mg/300ml Ns) 600 mg in 300 mls @ 300 mls/hr IVPB Q12 CHARMAINE PRN Reason: Protocol Last Admin: 07/13/17 12:03 Dose: 300 mls/hr Metoprolol Tartrate (Lopressor) 2.5 mg IVP Q6H CHARMAINE Last Admin: 07/13/17 13:05 Dose: Not Given Mupirocin (Bactroban Ointment) 1 applic TOP BID [facility]MAINE Last Admin: 07/13/17 08:11 Dose: 1 applic Ondansetron HCl (Zofran Inj) 4 mg IVP Q6H PRN PRN Reason: Nausea/Vomiting Last Admin: 07/08/17 04:24 Dose: 4 mg Pantoprazole Sodium (Protonix Inj) 40 mg IVP DAILY [facility] Last Admin: 07/13/17 08:12 Dose: 40 mg Potassium Chloride (Potassium Chloride Oral Soln) 20 meq PO TID [facility] Stop: 07/14/17 13:01 Saccharomyces Boulardii (Florastor) 250 mg PO BID [facility] - Labs Labs: 07/13/17 06:00 07/13/17 06:00 PT 12.7 Seconds (9.8-13.1) 07/08/17 00:50 INR 1.1 (0.9-1.2) 07/08/17 00:50 APTT 31.0 Seconds (25.6-37.1) 07/08/17 00:50 - Constitutional Appears: Non-toxic, Cachectic, Chronically Ill - Head Exam Head Exam: NORMOCEPHALIC - Eye Exam Eye Exam: PERRL - ENT Exam ENT Exam: Mucous Membranes Dry - Neck Exam Neck Exam: absent: Lymphadenopathy - Respiratory Exam Respiratory Exam: Decreased Breath Sounds - Cardiovascular Exam Cardiovascular Exam: REGULAR RHYTHM - GI/Abdominal Exam GI & Abdominal Exam: Distended, Soft, Tenderness - Rectal Exam Rectal Exam: Deferred - Exam Exam: NORMAL INSPECTION Assessment and Plan (1) Abdominal pain Status: Acute (2) COPD (chronic obstructive pulmonary disease) Status: Acute (3) Essential (primary) hypertension Status: Acute (4) Hx of atrial fibrillation, no current medication Status: Acute (5) Intestinal perforation Status: Acute (6) Perforated abdominal viscus Status: Acute (7) Sepsis Status: Acute
--- NOTE | 2017-07-13 14:11 | RAD ---
HISTORY: abd pain COMPARISON: Abdomen pelvis CT with contrast 07/07/2017. FINDINGS: BOWEL: The left genesis abdomen is partially excluded from the image. No definite bowel obstruction pattern is appreciated overall as imaged. Surgical steffi are seen the right upper quadrant as well as skin steffi in the midline abdomen. No large free intrarenal gas collections identified. An abdomen obstructive series with more sensitive if this is of concern however. Prior IVC filter in position once again. BONES: Status post right ORIF and left total replacement hardware again identified in position. OTHER FINDINGS: None. IMPRESSION: Partially exclusion of left genesis abdomen limits interpretation are there is no definitive bowel obstruction pattern grossly evident. Further clinical correlation is advised. Consider repeat abdomen obstructive series. Postop changes as discussed above.
[2017-07-13] MEDS ORDERED: Digoxin 500 mcg/2ml (0.5 mg/2ml) Inj IVP ONE (15:00)
[2017-07-13] MEDS ORDERED: Amiodarone 150mg/3 ml vial ONE (15:16)
[2017-07-13] MEDS ORDERED: Albuterol-Ipratrop 3 mg / 0.5 (3 ml) UD INH STA (15:28)
[2017-07-13] MEDS ORDERED: Amiodarone 900 MG in Dextrose 5% In Water 500 ML IVPB SCH (15:37)
[2017-07-13] MEDS ORDERED: Amiodarone 150 MG in Sodium Chloride 0.9% 100 ML IVPB ONE (15:45)
[2017-07-13] MEDS ORDERED: Amiodarone 450 MG in Sodium Chloride 0.9% 250 ML IVPB SCH (15:45)
[2017-07-13] MEDS: Saccharomyces Boulardi 250 mg Cap PO SCH (16:09)
[2017-07-13] MEDS ORDERED: Digoxin 500 mcg/2ml (0.5 mg/2ml) Inj IVP STA (20:27)
[2017-07-13 20:47] VITALS: PULSE 122
[2017-07-14] MEDS: Cefepime 2 GM in Sodium Chloride 0.9% 100 ML IVPB SCH ×3 (00:03→18:57)
[2017-07-14] MEDS: Albuterol-Ipratrop 3 mg / 0.5 (3 ml) UD INH SCH ×4 (01:48→19:41)
--- NOTE | 2017-07-14 05:12 | CP.PCM.PN ---
Addendum entered and electronically signed by Wojciech Miller DO 07/14/17 05:44: Patient had a liquid light brown bowel movement overnight after second enema. Original Note: <Wojciech Miller - Last Filed: 07/14/17 05:14> Subjective - Date & Time of Evaluation Date of Evaluation: 07/14/17 Time of Evaluation: 05:10 - Subjective Subjective: SURGERY PROGRESS NOTE FOR DR. WORTHY 72M seen and examined at bedside. Patient states pain is more controlled with medication, denies N/V/F/C. Tolerating diet. Denies bowel movement. Objective - Vital Signs/Intake and Output Vital Signs (last 24 hours): Temp Pulse Resp BP Pulse Ox 97.5 F L 110 H 18 98/60 L 100 07/14/17 00:00 07/14/17 01:00 07/14/17 01:00 07/14/17 01:00 07/14/17 01:00 Intake and Output: 07/13/17 07/14/17 18:59 06:59 Intake Total 1687 450 Output Total 650 100 Balance 1037 350 - Medications Medications: Current Medications Acetaminophen (Tylenol 325mg Tab) 650 mg PO Q4 PRN PRN Reason: Pain, moderate (4-7) Albuterol/Ipratropium (Duoneb 3 Mg/0.5 Mg (3 Ml) Ud) 3 ml INH RQ6 [facility] Last Admin: 07/14/17 01:48 Dose: 3 ml Furosemide (Lasix) 20 mg IVP DAILY [facility] Hydromorphone HCl (Dilaudid) 1 mg IVP Q4 PRN PRN Reason: Pain, severe (8-10) Last Admin: 07/14/17 04:01 Dose: 1 mg Cefepime HCl 2 gm/ Sodium (Chloride) 100 mls @ 100 mls/hr IVPB Q8 CHARMAINE PRN Reason: Protocol Last Admin: 07/14/17 00:03 Dose: 100 mls/hr Linezolid 600 mg in NS 300 ml (Zyvox 600mg/300ml Ns) 600 mg in 300 mls @ 300 mls/hr IVPB Q12 CHARMAINE PRN Reason: Protocol Last Admin: 07/13/17 20:24 Dose: 300 mls/hr Amiodarone HCl 450 mg/ Sodium (Chloride) 259 mls @ 34.53 mls/hr IVPB .Q7H31M CHARMAINE; 1 MG/MIN PRN Reason: Protocol Last Admin: 07/14/17 01:00 Dose: 34.53 mls/hr Mupirocin (Bactroban Ointment) 1 applic TOP BID [facility] Last Admin: 07/13/17 16:09 Dose: 1 applic Ondansetron HCl (Zofran Inj) 4 mg IVP Q6H PRN PRN Reason: Nausea/Vomiting Last Admin: 07/13/17 21:22 Dose: 4 mg Pantoprazole Sodium (Protonix Inj) 40 mg IVP DAILY [facility] Last Admin: 07/13/17 08:12 Dose: 40 mg Potassium Chloride (Potassium Chloride Oral Soln) 20 meq PO TID [facility] Stop: 07/14/17 13:01 Saccharomyces Boulardii (Florastor) 250 mg PO BID [facility] Last Admin: 07/13/17 16:09 Dose: 250 mg Sodium Phosphate (Fleet Enema) 135 ml ND Q6 [facility] Last Admin: 07/14/17 03:21 Dose: 135 ml - Labs Labs: 07/13/17 06:00 07/13/17 06:00 PT 12.7 Seconds (9.8-13.1) 07/08/17 00:50 INR 1.1 (0.9-1.2) 07/08/17 00:50 APTT 31.0 Seconds (25.6-37.1) 07/08/17 00:50 - Constitutional Appears: Non-toxic, No Acute Distress - Respiratory Exam Respiratory Exam: Clear to Ausculation Bilateral, NORMAL BREATHING PATTERN - Cardiovascular Exam Cardiovascular Exam: REGULAR RHYTHM, +S1, +S2 - GI/Abdominal Exam GI & Abdominal Exam: Soft, Tenderness. absent: Distended, Firm, Guarding, Rigid Additional comments: incision clean dry intact. JPs draining serous fluid - Neurological Exam Neurological Exam: Alert, Awake, Oriented x3 - Skin Skin Exam: Dry, Intact, Normal Color, Warm Assessment and Plan - Assessment and Plan (Free Text) Assessment: 72M s/p exploratory laparotomy with findings of perforated viscous. Small bowel resection with anastomosis POD#6 Plan: - monitor incision - RAMIN drain outputs - Urine outputs - elevate scrotum - keep on liquid diet Further recs discuss with Dr Zaynab Miller, PGY2 <Mook Worthy B - Last Filed: 07/15/17 18:50> Objective - Vital Signs/Intake and Output Vital Signs (last 24 hours): Temp Pulse Resp BP Pulse Ox 98.8 F 89 18 93/56 L 100 07/15/17 16:24 07/15/17 18:00 07/15/17 18:00 07/15/17 18:00 07/15/17 18:00 Intake and Output: 07/15/17 07/15/17 06:59 18:59 Intake Total 422 400 Output Total 650 1650 Balance -228 -1250 - Medications Medications: Current Medications Acetaminophen (Tylenol 325mg Tab) 650 mg PO Q4 PRN PRN Reason: Pain, moderate (4-7) Albuterol/Ipratropium (Duoneb 3 Mg/0.5 Mg (3 Ml) Ud) 3 ml INH RQ6 [facility] Last Admin: 07/15/17 13:17 Dose: 3 ml Diltiazem HCl (Cardizem) 60 mg PO Q8 [facility] Last Admin: 07/15/17 16:56 Dose: Not Given Docusate Sodium (Colace) 100 mg PO TID [facility] Last Admin: 07/15/17 16:56 Dose: 100 mg Furosemide (Lasix) 20 mg IVP DAILY [facility] Last Admin: 07/15/17 10:11 Dose: 20 mg Hydromorphone HCl (Dilaudid) 1 mg IVP Q4 PRN PRN Reason: Pain, severe (8-10) Last Admin: 07/15/17 12:02 Dose: 1 mg Linezolid 600 mg in NS 300 ml (Zyvox 600mg/300ml Ns) 600 mg in 300 mls @ 300 mls/hr IVPB Q12 [facility] PRN Reason: Protocol Last Admin: 07/15/17 10:15 Dose: 300 mls/hr Amiodarone HCl 450 mg/ Sodium (Chloride) 259 mls @ 34.53 mls/hr IVPB .Q7H31M [facility]MAINE; 1 MG/MIN PRN Reason: Protocol Last Admin: 07/14/17 01:00 Dose: 34.53 mls/hr Cefepime HCl 1 gm/ Sodium (Chloride) 100 mls @ 100 mls/hr IVPB Q12 [facility] PRN Reason: Protocol Mupirocin (Bactroban Ointment) 1 applic TOP BID [facility] Last Admin: 07/15/17 16:55 Dose: 1 applic Ondansetron HCl (Zofran Inj) 4 mg IVP Q6H PRN PRN Reason: Nausea/Vomiting Last Admin: 07/13/17 21:22 Dose: 4 mg Pantoprazole Sodium (Protonix Inj) 40 mg IVP DAILY [facility] Last Admin: 07/15/17 10:15 Dose: 40 mg Saccharomyces Boulardii (Florastor) 250 mg PO BID [facility] Last Admin: 07/15/17 16:57 Dose: 250 mg - Labs Labs: 07/15/17 04:28 07/15/17 04:28 PT 27.1 Seconds (9.8-13.1) H 07/14/17 04:27 INR 2.5 (0.9-1.2) H 07/14/17 04:27 APTT 31.0 Seconds (25.6-37.1) 07/08/17 00:50 Attending/Attestation - Attestation I have fully participated in the care of the patient.: Yes I have reviewed all pertinent clinical information, including history, physical exam and plan: Yes Notes (Text): Pt is improving clinically c.w current mx Advance diet as tolerated DC Drain on left side C/w current mx
[2017-07-14 05:41] LABS: BASO % 0.2 % (0.0-2.0); EOS # 0.1 K/uL (0.0-0.7); EOS % 2.4 % (0.0-4.0); HEMOGLOBIN 9.7 g/dL (12.0-18.0); LYMPH # 0.4 K/uL (1.0-4.3); LYMPH % 13.2 % (20.0-40.0); MEAN CELL VOLUME 98.1 fl (80.0-94.0); MEAN CORPUSCULAR HEMOGLOBIN 33.4 pg (27.0-31.0); MEAN PLATELET VOLUME 9.7 fl (7.2-11.7); MONO # 0.1 K/uL (0.0-0.8); MONO % 4.6 % (0.0-10.0); NEUT # 2.5 K/uL (1.8-7.0); NEUT % 79.6 % (50.0-75.0); NRBC % 0.1 % (0.0-0.0); RBC 2.92 Mil/uL (4.40-5.90); RED CELL DISTRIBUTION WIDTH 16.5 % (11.5-14.5); WHITE BLOOD COUNT 3.1 K/uL (4.8-10.8)
[2017-07-14 05:53] LABS: ALB/GLOB RATIO 0.7 (1.0-2.1); ALBUMIN 1.6 g/dL (3.5-5.0); ALT/SGPT 52 U/L (21-72); AST/SGOT 23 U/L (17-59); BLOOD UREA NITROGEN 31 mg/dl (9-20); CALCIUM 6.5 mg/dL (8.4-10.2); GFR AFRICAN-AMERICAN > 60; GFR NON-AFRICAN AMERICAN > 60
[2017-07-14 06:26] LABS: INR 2.5 (0.9-1.2); PROTHROMBIN TIME 27.1 Seconds (9.8-13.1)
[2017-07-14] MEDS: Saccharomyces Boulardi 250 mg Cap PO SCH ×2 (08:32→17:23)
[2017-07-14] MEDS: Potassium Chloride 20 mEq/15 ml LIQ UD PO SCH ×2 (08:33→14:46)
[2017-07-14] MEDS: NS IVPB SCH ×2 (08:35→20:08)
[2017-07-14] MEDS: LINEZOLID IVPB SCH ×2 (08:35→20:08)
--- NOTE | 2017-07-14 09:30 | CP.CCUPN ---
CCU Subjective - Physician Review Events Since Last Encounter (Free Text): 07/14/17 09:25 awake, alert, no SOB, good urine output, BP stable , in A fib, rate controlled , on Amiodorone infusion , on clear liquid now, K is low, being replaced. CCU Objective - Vital Signs / Intake & Output Vital Signs (Last 4 hours): Vital Signs Temp Pulse Resp BP Pulse Ox 07/14/17 08:33 105/83 07/14/17 08:00 98.0 F 79 22 103/63 100 07/14/17 07:00 81 20 104/60 100 07/14/17 06:00 91 H 21 93/63 L 100 Intake and Output (Last 8hrs): Intake & Output 07/13/17 07/14/17 07/14/17 22:59 06:59 14:59 Intake Total 1047 250 Output Total 500 1730 Balance 547 -1480 Intake: IV 67 Intake, Piggyback 400 Oral 580 250 Output: Drainage 200 130 Left 40 50 Right 160 80 Urine 300 1600 Urethral (Russell) 300 1600 Other: # Bowel Movements 0 1 - Physical Exam Narrative Physical Exam (Free Text): 07/14/17 09:26 P/E Neck: No JVD Lungs: decreased BS, rt base Heart: S1 S2 irregular Abdomen: soft, Ext: +1 edema Head: Positive for: Normocephalic Pupils: Positive for: PERRL Conjunctiva: Negative for: Icteric Mouth: Positive for: Moist Mucous Membranes Neck: Negative for: JVD Respiratory/Chest: Positive for: Clear to Auscultation, Decreased Breath Sounds Cardiovascular: Positive for: Irregular Rhythm, Tachycardic. Negative for: Murmurs, Rub Abdomen: Positive for: Tenderness. Negative for: Distention, Normal Bowel Sounds, Mass/Organomegaly Lower Extremity: Positive for: NORMAL PULSES. Negative for: CALF TENDERNESS, Cyanosis Neurological: Positive for: Motor Func Grossly Intact, Normal Sensory Function Skin: Positive for: Warm, Dry. Negative for: Rashes Psychiatric: Positive for: Alert, Oriented x 3 - Medications Active Medications: Active Medications Generic Name Dose Route Start Last Admin Trade Name Freq PRN Reason Stop Dose Admin Acetaminophen 650 mg 07/13/17 07:49 Tylenol 325mg Tab PO Q4 PRN Pain, moderate (4-7) Albuterol/Ipratropium 3 ml 07/08/17 20:00 07/14/17 07:56 Duoneb 3 Mg/0.5 Mg (3 Ml) Ud INH 3 ml RQ6 [facility]MAINE Administration Furosemide 20 mg 07/14/17 09:00 07/14/17 08:33 Lasix IVP 20 mg DAILY [facility]MAINE Administration Hydromorphone HCl 1 mg 07/13/17 20:15 07/14/17 08:27 Dilaudid IVP 1 mg Q4 PRN Administration Pain, severe (8-10) Cefepime HCl 2 gm/ Sodium 100 mls @ 100 mls/hr 07/11/17 17:00 07/14/17 08:35 Chloride IVPB 100 mls/hr Q8 [facility]MAINE Administration Protocol Linezolid 600 mg in NS 300 ml 600 mg in 300 mls @ 300 mls/hr 07/13/17 11:00 07/14/17 08:35 Zyvox 600mg/300ml Ns IVPB 300 mls/hr Q12 [facility]MAINE Administration Protocol Amiodarone HCl 450 mg/ Sodium 259 mls @ 34.53 mls/hr 07/13/17 15:45 07/14/17 01:00 Chloride IVPB 34.53 mls/hr .Q7H31M [facility]MAINE Administration Protocol 1 MG/MIN Mupirocin 1 applic 07/09/17 20:15 07/13/17 16:09 Bactroban Ointment TOP 1 applic BID [facility]INE Administration Ondansetron HCl 4 mg 07/07/17 23:32 07/13/17 21:22 Zofran Inj IVP 4 mg Q6H PRN Administration Nausea/Vomiting Pantoprazole Sodium 40 mg 07/09/17 14:30 07/14/17 08:33 Protonix Inj IVP 40 mg DAILY [facility]INE Administration Potassium Chloride 20 meq 07/13/17 13:00 07/14/17 08:33 Potassium Chloride Oral Soln PO 07/14/17 13:01 20 meq TID [facility]MAINE Administration Saccharomyces Boulardii 250 mg 07/13/17 17:00 07/14/17 08:32 Florastor PO 250 mg BID [facility]MAINE Administration Sodium Phosphate 135 ml 07/13/17 22:00 07/14/17 03:21 Fleet Enema LA 135 ml Q6 CHARMAINE Administration - Patient Studies Lab Studies: Microbiology Studies 07/12/17 17:20 Urine Culture - Final Urine,Clean Catch No Growth (<1,000 CFU/ML) Lab Studies 07/14/17 07/14/17 07/14/17 Range/Units 04:27 04:27 04:27 WBC 3.1 L (4.8-10.8) K/uL RBC 2.92 L (4.40-5.90) Mil/uL Hgb 9.7 L (12.0-18.0) g/dL Hct 28.6 L (35.0-51.0) % MCV 98.1 H (80.0-94.0) fl MCH 33.4 H (27.0-31.0) pg MCHC 34.0 (33.0-37.0) g/dL RDW 16.5 H (11.5-14.5) % Plt Count 30 L* (130-400) K/uL MPV 9.7 (7.2-11.7) fl Neut % (Auto) 79.6 H (50.0-75.0) % Lymph % (Auto) 13.2 L (20.0-40.0) % [place] % (Auto) 4.6 (0.0-10.0) % Eos % (Auto) 2.4 (0.0-4.0) % Baso % (Auto) 0.2 (0.0-2.0) % Neut # (Auto) 2.5 (1.8-7.0) K/uL Lymph # (Auto) 0.4 L (1.0-4.3) K/uL [place] # (Auto) 0.1 (0.0-0.8) K/uL Eos # (Auto) 0.1 (0.0-0.7) K/uL Baso # (Auto) 0.0 (0.0-0.2) K/uL PT 27.1 H (9.8-13.1) Seconds INR 2.5 H (0.9-1.2) Sodium 140 (132-148) mmol/l Potassium 3.3 L (3.6-5.0) MMOL/L Chloride 106 (98-107) mmol/L Carbon Dioxide 23 (22-30) mmol/L Anion Gap 14 (10-20) BUN 31 H (9-20) mg/dl Creatinine 0.9 (0.8-1.5) mg/dl Est GFR ( Amer) > 60 Est GFR (Non-Af Amer) > 60 POC Glucose (mg/dL) (65-110) mg/dL Random Glucose 133 H (75-110) mg/dL Calcium 6.5 L (8.4-10.2) mg/dL Phosphorus 5.2 H (2.5-4.5) mg/dl Magnesium 1.7 (1.6-2.3) MG/DL Total Bilirubin 0.9 (0.2-1.3) mg/dl AST 23 (17-59) U/L ALT 52 (21-72) U/L Alkaline Phosphatase 36 L (38-126) U/L Total Protein 4.0 L (6.3-8.2) G/DL Albumin 1.6 L (3.5-5.0) g/dL Globulin 2.4 (2.2-3.9) gm/dL Albumin/Globulin Ratio 0.7 L (1.0-2.1) 07/13/17 07/13/17 07/13/17 Range/Units 21:13 16:49 11:13 WBC (4.8-10.8) K/uL RBC (4.40-5.90) Mil/uL Hgb (12.0-18.0) g/dL Hct (35.0-51.0) % MCV (80.0-94.0) fl MCH (27.0-31.0) pg MCHC (33.0-37.0) g/dL RDW (11.5-14.5) % Plt Count (130-400) K/uL MPV (7.2-11.7) fl Neut % (Auto) (50.0-75.0) % Lymph % (Auto) (20.0-40.0) % [place] % (Auto) (0.0-10.0) % Eos % (Auto) (0.0-4.0) % Baso % (Auto) (0.0-2.0) % Neut # (Auto) (1.8-7.0) K/uL Lymph # (Auto) (1.0-4.3) K/uL [place] # (Auto) (0.0-0.8) K/uL Eos # (Auto) (0.0-0.7) K/uL Baso # (Auto) (0.0-0.2) K/uL PT (9.8-13.1) Seconds INR (0.9-1.2) Sodium (132-148) mmol/l Potassium (3.6-5.0) MMOL/L Chloride (98-107) mmol/L Carbon Dioxide (22-30) mmol/L Anion Gap (10-20) BUN (9-20) mg/dl Creatinine (0.8-1.5) mg/dl Est GFR ( Amer) Est GFR (Non-Af Amer) POC Glucose (mg/dL) 158 H 161 H 129 H (65-110) mg/dL Random Glucose (75-110) mg/dL Calcium (8.4-10.2) mg/dL Phosphorus (2.5-4.5) mg/dl Magnesium (1.6-2.3) MG/DL Total Bilirubin (0.2-1.3) mg/dl AST (17-59) U/L ALT (21-72) U/L Alkaline Phosphatase (38-126) U/L Total Protein (6.3-8.2) G/DL Albumin (3.5-5.0) g/dL Globulin (2.2-3.9) gm/dL Albumin/Globulin Ratio (1.0-2.1) Laboratory Results - last 24 hr 07/13/17 07/13/17 07/13/17 11:13 16:49 21:13 WBC RBC Hgb Hct MCV MCH MCHC RDW Plt Count MPV Neut % (Auto) Lymph % (Auto) [place] % (Auto) Eos % (Auto) Baso % (Auto) Neut # (Auto) Lymph # (Auto) [place] # (Auto) Eos # (Auto) Baso # (Auto) PT INR Sodium Potassium Chloride Carbon Dioxide Anion Gap BUN Creatinine Est GFR ( Amer) Est GFR (Non-Af Amer) POC Glucose (mg/dL) 129 H 161 H 158 H Random Glucose Calcium Phosphorus Magnesium Total Bilirubin AST ALT Alkaline Phosphatase Total Protein Albumin Globulin Albumin/Globulin Ratio 07/14/17 07/14/17 07/14/17 04:27 04:27 04:27 WBC 3.1 L RBC 2.92 L Hgb 9.7 L Hct 28.6 L MCV 98.1 H MCH 33.4 H MCHC 34.0 RDW 16.5 H Plt Count 30 L* MPV 9.7 Neut % (Auto) 79.6 H Lymph % (Auto) 13.2 L [place] % (Auto) 4.6 Eos % (Auto) 2.4 Baso % (Auto) 0.2 Neut # (Auto) 2.5 Lymph # (Auto) 0.4 L [place] # (Auto) 0.1 Eos # (Auto) 0.1 Baso # (Auto) 0.0 PT 27.1 H INR 2.5 H Sodium 140 Potassium 3.3 L Chloride 106 Carbon Dioxide 23 Anion Gap 14 BUN 31 H Creatinine 0.9 Est GFR ( Amer) > 60 Est GFR (Non-Af Amer) > 60 POC Glucose (mg/dL) Random Glucose 133 H Calcium 6.5 L Phosphorus 5.2 H Magnesium 1.7 Total Bilirubin 0.9 AST 23 ALT 52 Alkaline Phosphatase 36 L Total Protein 4.0 L Albumin 1.6 L Globulin 2.4 Albumin/Globulin Ratio 0.7 L Fingerstick Blood Sugar Results: 158 Critical Care Progress Note - Nutrition Nutrition: Nutrition Category Date Time Status Liquid Diet [DIET] Diets 07/13/17 Breakfast Active Assessment/Plan - Assessment and Plan (Free Text) Assessment: MAJOR PROBLEMS: 1. S/P Laprotomy, for perforated bowel, POD# 6 2. s/p A Fib , rate controlled on amiodoron infusion, also got digoxin 3. Thrombocytopenia 2 Recent Surgery, r/o 2 drug-induced, DIC low likelihood , slightly improve platelts count from yesterday 4. Hypokalemia: 5. Leukopenia / Thrombocytopenia PLAN: 1. Back on amiodoron infusion, . 2. Kcl 30 meq IV. 3. Get OOB (though patient refused yesterday). 4. Platelets lower, no s/sx of DIC, no active bleeding, check repeat coags. 5- Clear liquid diet.
[2017-07-14] MEDS ORDERED: Potassium Chloride 20 mEq/15 ml LIQ UD PO ONE (09:36)
[2017-07-14] MEDS ORDERED: Potassium CL 10mEq/100ml 100 ML IVPB SCH (10:00)
--- NOTE | 2017-07-14 10:38 | US ---
PROCEDURE: Bilateral lower extremity venous duplex Doppler. HISTORY: r/o DVT a source of possible PTE COMPARISON: None available. TECHNIQUE: Bilateral common femoral, superficial femoral, popliteal and posterior tibial veins were evaluated. Flow was assessed with color Doppler, compressibility, assessment of phasic flow and augmentation response. FINDINGS: COMMON FEMORAL VEIN: Right CFV: Unremarkable. Left CFV: Unremarkable. SUPERFICIAL FEMORAL VEIN: Right SFV: Unremarkable. Left SFV: Unremarkable. POPLITEAL VEIN: Right Popliteal: Unremarkable. Left Popliteal: Unremarkable. POSTERIOR TIBIAL VEIN: Right PTV: Unremarkable. Left PTV: Unremarkable. OTHER FINDINGS: There is soft tissue edema of the lower extremities. There is additionally a complex left popliteal fossa cyst with some debris. This measures 6.2 x 1.4 centimeters. IMPRESSION: No evidence of deep venous thrombosis. Complex left popliteal fossa cyst.
[2017-07-14] MEDS: HYDROmorphone 0.5 mg/0.5 ml ISec IVP PRN ×3 (12:01→21:53)
--- NOTE | 2017-07-14 16:35 | CP.PCM.PN ---
Subjective - Date & Time of Evaluation Date of Evaluation: 07/14/17 Time of Evaluation: 11:30 - Subjective Subjective: Patient remains stable Has no fever platelet at 30. Has minimal abdominal pain. Xray fo the abd showed no sx of obstruction. Objective - Vital Signs/Intake and Output Vital Signs (last 24 hours): Temp Pulse Resp BP Pulse Ox 97.8 F 87 13 96/44 L 98 07/14/17 16:18 07/14/17 16:18 07/14/17 16:18 07/14/17 16:18 07/14/17 16:18 Intake and Output: 07/14/17 07/14/17 06:59 18:59 Intake Total 650 Output Total 1830 Balance -1180 - Medications Medications: Current Medications Acetaminophen (Tylenol 325mg Tab) 650 mg PO Q4 PRN PRN Reason: Pain, moderate (4-7) Albuterol/Ipratropium (Duoneb 3 Mg/0.5 Mg (3 Ml) Ud) 3 ml INH RQ6 [facility]MAINE Last Admin: 07/14/17 13:44 Dose: 3 ml Docusate Sodium (Colace) 100 mg PO TID [facility]MAINE Last Admin: 07/14/17 13:50 Dose: Not Given Furosemide (Lasix) 20 mg IVP DAILY [facility]MAINE Last Admin: 07/14/17 08:33 Dose: 20 mg Hydromorphone HCl (Dilaudid) 1 mg IVP Q4 PRN PRN Reason: Pain, severe (8-10) Last Admin: 07/14/17 12:01 Dose: 1 mg Cefepime HCl 2 gm/ Sodium (Chloride) 100 mls @ 100 mls/hr IVPB Q8 [facility]MAINE PRN Reason: Protocol Last Admin: 07/14/17 08:35 Dose: 100 mls/hr Linezolid 600 mg in NS 300 ml (Zyvox 600mg/300ml Ns) 600 mg in 300 mls @ 300 mls/hr IVPB Q12 [facility]MAINE PRN Reason: Protocol Last Admin: 07/14/17 08:35 Dose: 300 mls/hr Amiodarone HCl 450 mg/ Sodium (Chloride) 259 mls @ 34.53 mls/hr IVPB .Q7H31M CHARMAINE; 1 MG/MIN PRN Reason: Protocol Last Admin: 07/14/17 01:00 Dose: 34.53 mls/hr Mupirocin (Bactroban Ointment) 1 applic TOP BID [facility] Last Admin: 07/14/17 12:14 Dose: 1 applic Ondansetron HCl (Zofran Inj) 4 mg IVP Q6H PRN PRN Reason: Nausea/Vomiting Last Admin: 07/13/17 21:22 Dose: 4 mg Pantoprazole Sodium (Protonix Inj) 40 mg IVP DAILY [facility] Last Admin: 07/14/17 08:33 Dose: 40 mg Saccharomyces Boulardii (Florastor) 250 mg PO BID [facility] Last Admin: 07/14/17 08:32 Dose: 250 mg Sodium Phosphate (Fleet Enema) 135 ml [place] Q6 [facility] Last Admin: 07/14/17 12:13 Dose: 135 ml - Labs Labs: 07/14/17 04:27 07/14/17 04:27 PT 27.1 Seconds (9.8-13.1) H 07/14/17 04:27 INR 2.5 (0.9-1.2) H 07/14/17 04:27 APTT 31.0 Seconds (25.6-37.1) 07/08/17 00:50 Assessment and Plan (1) Abdominal pain Status: Acute (2) COPD (chronic obstructive pulmonary disease) Status: Acute (3) Essential (primary) hypertension Status: Acute (4) Hx of atrial fibrillation, no current medication Status: Acute (5) Intestinal perforation Status: Acute (6) Perforated abdominal viscus Status: Acute
--- NOTE | 2017-07-14 18:39 | CP.PCM.PN ---
Subjective - Date & Time of Evaluation Date of Evaluation: 07/13/17 Time of Evaluation: 20:00 - Subjective Subjective: Has abdominal pain. Objective - Vital Signs/Intake and Output Vital Signs (last 24 hours): Temp Pulse Resp BP Pulse Ox 97.8 F 87 13 96/44 L 98 07/14/17 16:18 07/14/17 16:18 07/14/17 16:18 07/14/17 16:18 07/14/17 16:18 Intake and Output: 07/14/17 07/14/17 06:59 18:59 Intake Total 650 Output Total 1830 Balance -1180 - Medications Medications: Current Medications Acetaminophen (Tylenol 325mg Tab) 650 mg PO Q4 PRN PRN Reason: Pain, moderate (4-7) Albuterol/Ipratropium (Duoneb 3 Mg/0.5 Mg (3 Ml) Ud) 3 ml INH RQ6 [facility]MAINE Last Admin: 07/14/17 13:44 Dose: 3 ml Docusate Sodium (Colace) 100 mg PO TID [facility] Last Admin: 07/14/17 16:24 Dose: 100 mg Furosemide (Lasix) 20 mg IVP DAILY [facility] Last Admin: 07/14/17 08:33 Dose: 20 mg Hydromorphone HCl (Dilaudid) 1 mg IVP Q4 PRN PRN Reason: Pain, severe (8-10) Last Admin: 07/14/17 17:06 Dose: 1 mg Cefepime HCl 2 gm/ Sodium (Chloride) 100 mls @ 100 mls/hr IVPB Q8 [facility]MAINE PRN Reason: Protocol Last Admin: 07/14/17 08:35 Dose: 100 mls/hr Linezolid 600 mg in NS 300 ml (Zyvox 600mg/300ml Ns) 600 mg in 300 mls @ 300 mls/hr IVPB Q12 [facility]MAINE PRN Reason: Protocol Last Admin: 07/14/17 08:35 Dose: 300 mls/hr Amiodarone HCl 450 mg/ Sodium (Chloride) 259 mls @ 34.53 mls/hr IVPB .Q7H31M CHARMAINE; 1 MG/MIN PRN Reason: Protocol Last Admin: 07/14/17 01:00 Dose: 34.53 mls/hr Mupirocin (Bactroban Ointment) 1 applic TOP BID [facility] Last Admin: 07/14/17 16:23 Dose: 1 applic Ondansetron HCl (Zofran Inj) 4 mg IVP Q6H PRN PRN Reason: Nausea/Vomiting Last Admin: 07/13/17 21:22 Dose: 4 mg Pantoprazole Sodium (Protonix Inj) 40 mg IVP DAILY [facility] Last Admin: 07/14/17 08:33 Dose: 40 mg Saccharomyces Boulardii (Florastor) 250 mg PO BID [facility] Last Admin: 07/14/17 17:23 Dose: 250 mg Sodium Phosphate (Fleet Enema) 135 ml [place] Q6 [facility] Last Admin: 07/14/17 17:23 Dose: 135 ml - Labs Labs: 07/14/17 04:27 07/14/17 04:27 PT 27.1 Seconds (9.8-13.1) H 07/14/17 04:27 INR 2.5 (0.9-1.2) H 07/14/17 04:27 APTT 31.0 Seconds (25.6-37.1) 07/08/17 00:50 - Head Exam Head Exam: ATRAUMATIC - Eye Exam Eye Exam: Normal appearance - ENT Exam ENT Exam: Mucous Membranes Dry - Respiratory Exam Respiratory Exam: NORMAL BREATHING PATTERN - Cardiovascular Exam Cardiovascular Exam: +S1, +S2 - GI/Abdominal Exam GI & Abdominal Exam: Normal Bowel Sounds Assessment and Plan (1) Pancytopenia Assessment & Plan: WBC and H/H fairly stable no neutropenia platelets down trending - no schistocytes on smear, giant platelets noted no DIC; repeat fibrinogen in AM suspect sepsis related if plt < 20,000 would recommend changing protonix to pepcid Status: Acute
--- NOTE | 2017-07-14 18:40 | CP.PCM.PN ---
Subjective - Date & Time of Evaluation Date of Evaluation: 07/14/17 Time of Evaluation: 18:15 - Subjective Subjective: Has abdominal discomfort, tolerating PO Objective - Vital Signs/Intake and Output Vital Signs (last 24 hours): Temp Pulse Resp BP Pulse Ox 97.8 F 87 13 96/44 L 98 07/14/17 16:18 07/14/17 16:18 07/14/17 16:18 07/14/17 16:18 07/14/17 16:18 Intake and Output: 07/14/17 07/14/17 06:59 18:59 Intake Total 650 Output Total 1830 Balance -1180 - Medications Medications: Current Medications Acetaminophen (Tylenol 325mg Tab) 650 mg PO Q4 PRN PRN Reason: Pain, moderate (4-7) Albuterol/Ipratropium (Duoneb 3 Mg/0.5 Mg (3 Ml) Ud) 3 ml INH RQ6 [facility] Last Admin: 07/14/17 13:44 Dose: 3 ml Docusate Sodium (Colace) 100 mg PO TID [facility] Last Admin: 07/14/17 16:24 Dose: 100 mg Furosemide (Lasix) 20 mg IVP DAILY [facility] Last Admin: 07/14/17 08:33 Dose: 20 mg Hydromorphone HCl (Dilaudid) 1 mg IVP Q4 PRN PRN Reason: Pain, severe (8-10) Last Admin: 07/14/17 17:06 Dose: 1 mg Cefepime HCl 2 gm/ Sodium (Chloride) 100 mls @ 100 mls/hr IVPB Q8 [facility]MAINE PRN Reason: Protocol Last Admin: 07/14/17 08:35 Dose: 100 mls/hr Linezolid 600 mg in NS 300 ml (Zyvox 600mg/300ml Ns) 600 mg in 300 mls @ 300 mls/hr IVPB Q12 [facility]MA[facility] PRN Reason: Protocol Last Admin: 07/14/17 08:35 Dose: 300 mls/hr Amiodarone HCl 450 mg/ Sodium (Chloride) 259 mls @ 34.53 mls/hr IVPB .Q7H31M CHARMAINE; 1 MG/MIN PRN Reason: Protocol Last Admin: 07/14/17 01:00 Dose: 34.53 mls/hr Mupirocin (Bactroban Ointment) 1 applic TOP BID [facility] Last Admin: 07/14/17 16:23 Dose: 1 applic Ondansetron HCl (Zofran Inj) 4 mg IVP Q6H PRN PRN Reason: Nausea/Vomiting Last Admin: 07/13/17 21:22 Dose: 4 mg Pantoprazole Sodium (Protonix Inj) 40 mg IVP DAILY [facility] Last Admin: 07/14/17 08:33 Dose: 40 mg Saccharomyces Boulardii (Florastor) 250 mg PO BID [facility] Last Admin: 07/14/17 17:23 Dose: 250 mg Sodium Phosphate (Fleet Enema) 135 ml [place] Q6 [facility] Last Admin: 07/14/17 17:23 Dose: 135 ml - Labs Labs: 07/14/17 04:27 07/14/17 04:27 PT 27.1 Seconds (9.8-13.1) H 07/14/17 04:27 INR 2.5 (0.9-1.2) H 07/14/17 04:27 APTT 31.0 Seconds (25.6-37.1) 07/08/17 00:50 - Head Exam Head Exam: ATRAUMATIC - Eye Exam Eye Exam: Normal appearance - ENT Exam ENT Exam: Mucous Membranes Dry - Respiratory Exam Respiratory Exam: NORMAL BREATHING PATTERN - Cardiovascular Exam Cardiovascular Exam: +S1, +S2 - GI/Abdominal Exam GI & Abdominal Exam: Normal Bowel Sounds Assessment and Plan (1) Pancytopenia Assessment & Plan: WBC and H/H fairly stable no neutropenia platelets slightly improved no DIC suspect sepsis related if plt < 20,000 would recommend changing protonix to pepcid Status: Acute
[2017-07-15] MEDS: Cefepime 2 GM in Sodium Chloride 0.9% 100 ML IVPB SCH ×2 (00:44→10:11)
[2017-07-15] MEDS: Albuterol-Ipratrop 3 mg / 0.5 (3 ml) UD INH SCH ×4 (01:16→19:09)
[2017-07-15] MEDS: HYDROmorphone 0.5 mg/0.5 ml ISec IVP PRN ×3 (02:12→12:02)
[2017-07-15 06:13] LABS: BASO % 0.2 % (0.0-2.0); EOS # 0.1 K/uL (0.0-0.7); EOS % 4.1 % (0.0-4.0); HEMOGLOBIN 8.9 g/dL (12.0-18.0); LYMPH # 0.5 K/uL (1.0-4.3); LYMPH % 17.4 % (20.0-40.0); MEAN CELL VOLUME 97.5 fl (80.0-94.0); MEAN CORPUSCULAR HEMOGLOBIN 33.1 pg (27.0-31.0); MEAN PLATELET VOLUME 8.9 fl (7.2-11.7); MONO # 0.2 K/uL (0.0-0.8); MONO % 8.4 % (0.0-10.0); NEUT # 1.8 K/uL (1.8-7.0); NEUT % 69.9 % (50.0-75.0); NRBC % 0.2 % (0.0-0.0); RBC 2.68 Mil/uL (4.40-5.90); RED CELL DISTRIBUTION WIDTH 16.6 % (11.5-14.5); WHITE BLOOD COUNT 2.6 K/uL (4.8-10.8)
[2017-07-15 06:28] LABS: ALB/GLOB RATIO 0.6 (1.0-2.1); ALBUMIN 1.5 g/dL (3.5-5.0); ALT/SGPT 46 U/L (21-72); AST/SGOT 18 U/L (17-59); BLOOD UREA NITROGEN 25 mg/dl (9-20); CALCIUM 6.3 mg/dL (8.4-10.2); GFR AFRICAN-AMERICAN > 60; GFR NON-AFRICAN AMERICAN > 60
[2017-07-15] MEDS ORDERED: Potassium Chloride 20 mEq/15 ml LIQ UD PO ONE (08:33)
--- NOTE | 2017-07-15 08:35 | CP.PCM.PN ---
Subjective - Date & Time of Evaluation Date of Evaluation: 07/15/17 Time of Evaluation: 08:35 - Subjective Subjective: Noted slight improvement of platelet. Has no fever. Noted parox atrial fib. Was NSR in the morning. Hgb 8.9 platelet 33 Objective - Vital Signs/Intake and Output Vital Signs (last 24 hours): Temp Pulse Resp BP Pulse Ox 98.1 F 87 12 99/56 L 100 07/15/17 08:00 07/15/17 08:00 07/15/17 08:00 07/15/17 08:00 07/15/17 08:00 Intake and Output: 07/15/17 07/15/17 06:59 18:59 Intake Total 422 Output Total 650 Balance -228 - Medications Medications: Current Medications Acetaminophen (Tylenol 325mg Tab) 650 mg PO Q4 PRN PRN Reason: Pain, moderate (4-7) Albuterol/Ipratropium (Duoneb 3 Mg/0.5 Mg (3 Ml) Ud) 3 ml INH RQ6 [facility] Last Admin: 07/15/17 07:41 Dose: 3 ml Docusate Sodium (Colace) 100 mg PO TID [facility] Last Admin: 07/14/17 16:24 Dose: 100 mg Furosemide (Lasix) 20 mg IVP DAILY [facility] Last Admin: 07/14/17 08:33 Dose: 20 mg Hydromorphone HCl (Dilaudid) 1 mg IVP Q4 PRN PRN Reason: Pain, severe (8-10) Last Admin: 07/15/17 07:22 Dose: 1 mg Cefepime HCl 2 gm/ Sodium (Chloride) 100 mls @ 100 mls/hr IVPB Q8 [facility] PRN Reason: Protocol Last Admin: 07/15/17 00:44 Dose: 100 mls/hr Linezolid 600 mg in NS 300 ml (Zyvox 600mg/300ml Ns) 600 mg in 300 mls @ 300 mls/hr IVPB Q12 [facility] PRN Reason: Protocol Last Admin: 07/14/17 20:08 Dose: 300 mls/hr Amiodarone HCl 450 mg/ Sodium (Chloride) 259 mls @ 34.53 mls/hr IVPB .Q7H31M [facility]MAINE; 1 MG/MIN PRN Reason: Protocol Last Admin: 07/14/17 01:00 Dose: 34.53 mls/hr Mupirocin (Bactroban Ointment) 1 applic TOP BID [facility] Last Admin: 07/14/17 16:23 Dose: 1 applic Ondansetron HCl (Zofran Inj) 4 mg IVP Q6H PRN PRN Reason: Nausea/Vomiting Last Admin: 07/13/17 21:22 Dose: 4 mg Pantoprazole Sodium (Protonix Inj) 40 mg IVP DAILY [facility] Last Admin: 07/14/17 08:33 Dose: 40 mg Potassium Chloride (Potassium Chloride Oral Soln) 40 meq PO ONCE ONE Stop: 07/15/17 08:34 Saccharomyces Boulardii (Florastor) 250 mg PO BID [facility] Last Admin: 07/14/17 17:23 Dose: 250 mg Sodium Phosphate (Fleet Enema) 135 ml [place] Q6 [facility] Last Admin: 07/15/17 06:34 Dose: 135 ml - Labs Labs: 07/15/17 04:28 07/15/17 04:28 PT 27.1 Seconds (9.8-13.1) H 07/14/17 04:27 INR 2.5 (0.9-1.2) H 07/14/17 04:27 APTT 31.0 Seconds (25.6-37.1) 07/08/17 00:50 - Head Exam Head Exam: NORMAL INSPECTION - Eye Exam Eye Exam: Normal appearance - Respiratory Exam Respiratory Exam: Clear to Ausculation Bilateral - Cardiovascular Exam Cardiovascular Exam: Irregular Rhythm - GI/Abdominal Exam GI & Abdominal Exam: Soft - Neurological Exam Neurological Exam: Awake, Oriented x3 Assessment and Plan (1) Abdominal pain Status: Acute (2) COPD (chronic obstructive pulmonary disease) Status: Acute (3) Essential (primary) hypertension Status: Acute (4) Hx of atrial fibrillation, no current medication Status: Acute (5) Intestinal perforation Status: Acute (6) Perforated abdominal viscus Status: Acute (7) Atrial fibrillation Status: Acute (8) Anemia Status: Acute - Assessment and Plan (Free Text) Plan: Cont meds Cont tx monitor cbc Cont meds Cardiology follow up Phys therapy
--- NOTE | 2017-07-15 09:00 | CP.CCUPN ---
CCU Subjective - Physician Review Events Since Last Encounter (Free Text): 07/15/17 08:58 Alert and oriented, in no distress, was on amiodoron infusion until yesterday, now off . In A fib now,, but was in SR earlier this AM. Very slight improvement in platelts, now 30 K, no signs of bleeding, . CCU Objective - Vital Signs / Intake & Output Vital Signs (Last 4 hours): Vital Signs Temp Pulse Resp BP Pulse Ox 07/15/17 08:00 98.1 F 87 12 99/56 L 100 07/15/17 06:00 97 H 20 99/58 L 100 Intake and Output (Last 8hrs): Intake & Output 07/14/17 07/15/17 07/15/17 22:59 06:59 14:59 Intake Total 806 116 Output Total 1545 650 80 Balance -739 -534 -80 Weight 178 lb 6 oz Intake: IV 6 16 Intake, Piggyback 800 100 Output: Drainage 145 200 80 Left 20 20 Right 125 180 80 Urine 1400 450 Urethral (Connors) 1400 450 Other: # Bowel Movements 0 3 - Physical Exam Narrative Physical Exam (Free Text): 07/15/17 09:00 P/E neck; No JVD Lungs: decreased BS, bases Abdomen: BS +ve Ext: no edema Heart: S1 S2 irregular Head: Positive for: Normocephalic Pupils: Positive for: PERRL Conjunctiva: Negative for: Icteric Mouth: Positive for: Moist Mucous Membranes Neck: Negative for: JVD Respiratory/Chest: Positive for: Clear to Auscultation, Decreased Breath Sounds Cardiovascular: Positive for: Irregular Rhythm, Tachycardic. Negative for: Murmurs, Rub Abdomen: Positive for: Tenderness. Negative for: Distention, Normal Bowel Sounds, Mass/Organomegaly Lower Extremity: Positive for: NORMAL PULSES. Negative for: CALF TENDERNESS, Cyanosis Neurological: Positive for: Motor Func Grossly Intact, Normal Sensory Function Skin: Positive for: Warm, Dry. Negative for: Rashes Psychiatric: Positive for: Alert, Oriented x 3 - Medications Active Medications: Active Medications Generic Name Dose Route Start Last Admin Trade Name Freq PRN Reason Stop Dose Admin Acetaminophen 650 mg 07/13/17 07:49 Tylenol 325mg Tab PO Q4 PRN Pain, moderate (4-7) Albuterol/Ipratropium 3 ml 07/08/17 20:00 07/15/17 07:41 Duoneb 3 Mg/0.5 Mg (3 Ml) Ud INH 3 ml RQ6 CHARMAINE Administration Docusate Sodium 100 mg 07/14/17 09:43 07/14/17 16:24 Colace PO 100 mg TID CHARMAINE Administration Furosemide 20 mg 07/14/17 09:00 07/14/17 08:33 Lasix IVP 20 mg DAILY CHARMAINE Administration Hydromorphone HCl 1 mg 07/14/17 11:45 07/15/17 07:22 Dilaudid IVP 1 mg Q4 PRN Administration Pain, severe (8-10) Cefepime HCl 2 gm/ Sodium 100 mls @ 100 mls/hr 07/11/17 17:00 07/15/17 00:44 Chloride IVPB 100 mls/hr Q8 CHARMAINE Administration Protocol Linezolid 600 mg in NS 300 ml 600 mg in 300 mls @ 300 mls/hr 07/13/17 11:00 07/14/17 20:08 Zyvox 600mg/300ml Ns IVPB 300 mls/hr Q12 CHARMAINE Administration Protocol Amiodarone HCl 450 mg/ Sodium 259 mls @ 34.53 mls/hr 07/13/17 15:45 07/14/17 01:00 Chloride IVPB 34.53 mls/hr .Q7H31M CHARMAINE Administration Protocol 1 MG/MIN Mupirocin 1 applic 07/09/17 20:15 07/14/17 16:23 Bactroban Ointment TOP 1 applic BID CHARMAINE Administration Ondansetron HCl 4 mg 07/07/17 23:32 07/13/17 21:22 Zofran Inj IVP 4 mg Q6H PRN Administration Nausea/Vomiting Pantoprazole Sodium 40 mg 07/09/17 14:30 07/14/17 08:33 Protonix Inj IVP 40 mg DAILY CHARMAINE Administration Potassium Chloride 40 meq 07/15/17 08:33 Potassium Chloride Oral Soln PO 07/15/17 08:34 ONCE ONE Saccharomyces Boulardii 250 mg 07/13/17 17:00 07/14/17 17:23 Florastor PO 250 mg BID CHARMAINE Administration - Patient Studies Lab Studies: Lab Studies 03/18/18 03/18/18 03/18/18 Range/Units 06:19 04:28 04:28 WBC 2.6 L (4.8-10.8) K/uL RBC 2.68 L (4.40-5.90) Mil/uL Hgb 8.9 L (12.0-18.0) g/dL Hct 26.2 L (35.0-51.0) % MCV 97.5 H (80.0-94.0) fl MCH 33.1 H (27.0-31.0) pg MCHC 34.0 (33.0-37.0) g/dL RDW 16.6 H (11.5-14.5) % Plt Count 33 L (130-400) K/uL MPV 8.9 (7.2-11.7) fl Neut % (Auto) 69.9 (50.0-75.0) % Lymph % (Auto) 17.4 L (20.0-40.0) % [place] % (Auto) 8.4 (0.0-10.0) % Eos % (Auto) 4.1 H (0.0-4.0) % Baso % (Auto) 0.2 (0.0-2.0) % Neut # (Auto) 1.8 (1.8-7.0) K/uL Lymph # (Auto) 0.5 L (1.0-4.3) K/uL [place] # (Auto) 0.2 (0.0-0.8) K/uL Eos # (Auto) 0.1 (0.0-0.7) K/uL Baso # (Auto) 0.0 (0.0-0.2) K/uL Sodium 141 (132-148) mmol/l Potassium 2.9 L (3.6-5.0) MMOL/L Chloride 105 (98-107) mmol/L Carbon Dioxide 24 (22-30) mmol/L Anion Gap 15 (10-20) BUN 25 H (9-20) mg/dl Creatinine 0.9 (0.8-1.5) mg/dl Est GFR ( Amer) > 60 Est GFR (Non-Af Amer) > 60 POC Glucose (mg/dL) 118 H (65-110) mg/dL Random Glucose 103 (75-110) mg/dL Calcium 6.3 L (8.4-10.2) mg/dL Phosphorus 4.7 H (2.5-4.5) mg/dl Magnesium 1.6 (1.6-2.3) MG/DL Total Bilirubin 0.6 (0.2-1.3) mg/dl AST 18 (17-59) U/L ALT 46 (21-72) U/L Alkaline Phosphatase 36 L (38-126) U/L Total Protein 3.8 L (6.3-8.2) G/DL Albumin 1.5 L (3.5-5.0) g/dL Globulin 2.3 (2.2-3.9) gm/dL Albumin/Globulin Ratio 0.6 L (1.0-2.1) Crossmatch IS Only 07/14/17 07/14/17 07/14/17 Range/Units 22:13 16:48 11:48 WBC (4.8-10.8) K/uL RBC (4.40-5.90) Mil/uL Hgb (12.0-18.0) g/dL Hct (35.0-51.0) % MCV (80.0-94.0) fl MCH (27.0-31.0) pg MCHC (33.0-37.0) g/dL RDW (11.5-14.5) % Plt Count (130-400) K/uL MPV (7.2-11.7) fl Neut % (Auto) (50.0-75.0) % Lymph % (Auto) (20.0-40.0) % [place] % (Auto) (0.0-10.0) % Eos % (Auto) (0.0-4.0) % Baso % (Auto) (0.0-2.0) % Neut # (Auto) (1.8-7.0) K/uL Lymph # (Auto) (1.0-4.3) K/uL [place] # (Auto) (0.0-0.8) K/uL Eos # (Auto) (0.0-0.7) K/uL Baso # (Auto) (0.0-0.2) K/uL Sodium (132-148) mmol/l Potassium (3.6-5.0) MMOL/L Chloride (98-107) mmol/L Carbon Dioxide (22-30) mmol/L Anion Gap (10-20) BUN (9-20) mg/dl Creatinine (0.8-1.5) mg/dl Est GFR ( Amer) Est GFR (Non-Af Amer) POC Glucose (mg/dL) 119 H 137 H 131 H (65-110) mg/dL Random Glucose (75-110) mg/dL Calcium (8.4-10.2) mg/dL Phosphorus (2.5-4.5) mg/dl Magnesium (1.6-2.3) MG/DL Total Bilirubin (0.2-1.3) mg/dl AST (17-59) U/L ALT (21-72) U/L Alkaline Phosphatase (38-126) U/L Total Protein (6.3-8.2) G/DL Albumin (3.5-5.0) g/dL Globulin (2.2-3.9) gm/dL Albumin/Globulin Ratio (1.0-2.1) Crossmatch IS Only 07/08/17 Range/Units 00:55 WBC (4.8-10.8) K/uL RBC (4.40-5.90) Mil/uL Hgb (12.0-18.0) g/dL Hct (35.0-51.0) % MCV (80.0-94.0) fl MCH (27.0-31.0) pg MCHC (33.0-37.0) g/dL RDW (11.5-14.5) % Plt Count (130-400) K/uL MPV (7.2-11.7) fl Neut % (Auto) (50.0-75.0) % Lymph % (Auto) (20.0-40.0) % [place] % (Auto) (0.0-10.0) % Eos % (Auto) (0.0-4.0) % Baso % (Auto) (0.0-2.0) % Neut # (Auto) (1.8-7.0) K/uL Lymph # (Auto) (1.0-4.3) K/uL [place] # (Auto) (0.0-0.8) K/uL Eos # (Auto) (0.0-0.7) K/uL Baso # (Auto) (0.0-0.2) K/uL Sodium (132-148) mmol/l Potassium (3.6-5.0) MMOL/L Chloride (98-107) mmol/L Carbon Dioxide (22-30) mmol/L Anion Gap (10-20) BUN (9-20) mg/dl Creatinine (0.8-1.5) mg/dl Est GFR ( Amer) Est GFR (Non-Af Amer) POC Glucose (mg/dL) (65-110) mg/dL Random Glucose (75-110) mg/dL Calcium (8.4-10.2) mg/dL Phosphorus (2.5-4.5) mg/dl Magnesium (1.6-2.3) MG/DL Total Bilirubin (0.2-1.3) mg/dl AST (17-59) U/L ALT (21-72) U/L Alkaline Phosphatase (38-126) U/L Total Protein (6.3-8.2) G/DL Albumin (3.5-5.0) g/dL Globulin (2.2-3.9) gm/dL Albumin/Globulin Ratio (1.0-2.1) Crossmatch IS Only See Detail Laboratory Results - last 24 hr 07/08/17 07/14/17 07/14/17 00:55 11:48 16:48 WBC RBC Hgb Hct MCV MCH MCHC RDW Plt Count MPV Neut % (Auto) Lymph % (Auto) [place] % (Auto) Eos % (Auto) Baso % (Auto) Neut # (Auto) Lymph # (Auto) [place] # (Auto) Eos # (Auto) Baso # (Auto) Sodium Potassium Chloride Carbon Dioxide Anion Gap BUN Creatinine Est GFR ( Amer) Est GFR (Non-Af Amer) POC Glucose (mg/dL) 131 H 137 H Random Glucose Calcium Phosphorus Magnesium Total Bilirubin AST ALT Alkaline Phosphatase Total Protein Albumin Globulin Albumin/Globulin Ratio Crossmatch IS Only See Detail 07/14/17 07/15/17 07/15/17 22:13 04:28 04:28 WBC 2.6 L RBC 2.68 L Hgb 8.9 L Hct 26.2 L MCV 97.5 H MCH 33.1 H MCHC 34.0 RDW 16.6 H Plt Count 33 L MPV 8.9 Neut % (Auto) 69.9 Lymph % (Auto) 17.4 L [place] % (Auto) 8.4 Eos % (Auto) 4.1 H Baso % (Auto) 0.2 Neut # (Auto) 1.8 Lymph # (Auto) 0.5 L [place] # (Auto) 0.2 Eos # (Auto) 0.1 Baso # (Auto) 0.0 Sodium 141 Potassium 2.9 L Chloride 105 Carbon Dioxide 24 Anion Gap 15 BUN 25 H Creatinine 0.9 Est GFR ( Amer) > 60 Est GFR (Non-Af Amer) > 60 POC Glucose (mg/dL) 119 H Random Glucose 103 Calcium 6.3 L Phosphorus 4.7 H Magnesium 1.6 Total Bilirubin 0.6 AST 18 ALT 46 Alkaline Phosphatase 36 L Total Protein 3.8 L Albumin 1.5 L Globulin 2.3 Albumin/Globulin Ratio 0.6 L Crossmatch IS Only 07/15/17 06:19 WBC RBC Hgb Hct MCV MCH MCHC RDW Plt Count MPV Neut % (Auto) Lymph % (Auto) [place] % (Auto) Eos % (Auto) Baso % (Auto) Neut # (Auto) Lymph # (Auto) [place] # (Auto) Eos # (Auto) Baso # (Auto) Sodium Potassium Chloride Carbon Dioxide Anion Gap BUN Creatinine Est GFR ( Amer) Est GFR (Non-Af Amer) POC Glucose (mg/dL) 118 H Random Glucose Calcium Phosphorus Magnesium Total Bilirubin AST ALT Alkaline Phosphatase Total Protein Albumin Globulin Albumin/Globulin Ratio Crossmatch IS Only Fingerstick Blood Sugar Results: 118 Critical Care Progress Note - Nutrition Nutrition: Nutrition Category Date Time Status Cardiac [Heart Healthy Diet] [DIET] Diets 07/15/17 Lunch Active Liquid Diet [DIET] Diets 07/13/17 Breakfast Active Assessment/Plan - Assessment and Plan (Free Text) Assessment: MAJOR PROBLEMS: 1. S/P Laprotomy, for perforated bowel, POD# 7 2. s/p A Fib , rate controlled was on amiodoron infusion, also got digoxin . Now BP well controlled, will give cardizem PO if rate increased, no anticoagulants for time being due to thrombocytopenia . 3. Thrombocytopenia 2 Recent Surgery, r/o 2 drug-induced, DIC low likelihood , slightly improve platelts count from yesterday 4. Hypokalemia: 5. Leukopenia / Thrombocytopenia PLAN: 1. Off amiodorone. 2. Kcl 40 meq PO, IV is not available 3. Get OOB (though patient refused yesterday). 4. Monitoring platelets , heam/oncoogy following, recommendations appreciated. no active bleeding,. 5- Clear liquid diet. 6 Dc connors's cath
--- NOTE | 2017-07-15 09:34 | CP.PCM.PN ---
<Wojciech Miller - Last Filed: 07/15/17 09:34> Subjective - Date & Time of Evaluation Date of Evaluation: 07/15/17 Time of Evaluation: 09:32 - Subjective Subjective: SURGERY PROGRESS NOTE FOR DR. WORTHY 72M seen and examined at bedside. Patient is doing well, states pain is improved , tolerating liquid diet, and admits to two large bowel movements. Objective - Vital Signs/Intake and Output Vital Signs (last 24 hours): Temp Pulse Resp BP Pulse Ox 98.1 F 87 12 99/56 L 100 07/15/17 08:00 07/15/17 08:00 07/15/17 08:00 07/15/17 08:00 07/15/17 08:00 Intake and Output: 07/15/17 07/15/17 06:59 18:59 Intake Total 422 Output Total 650 80 Balance -228 -80 - Medications Medications: Current Medications Acetaminophen (Tylenol 325mg Tab) 650 mg PO Q4 PRN PRN Reason: Pain, moderate (4-7) Albuterol/Ipratropium (Duoneb 3 Mg/0.5 Mg (3 Ml) Ud) 3 ml INH RQ6 CHARMAINE Last Admin: 07/15/17 07:41 Dose: 3 ml Docusate Sodium (Colace) 100 mg PO TID CHARMAINE Last Admin: 07/14/17 16:24 Dose: 100 mg Furosemide (Lasix) 20 mg IVP DAILY [facility]MAINE Last Admin: 07/14/17 08:33 Dose: 20 mg Hydromorphone HCl (Dilaudid) 1 mg IVP Q4 PRN PRN Reason: Pain, severe (8-10) Last Admin: 07/15/17 07:22 Dose: 1 mg Cefepime HCl 2 gm/ Sodium (Chloride) 100 mls @ 100 mls/hr IVPB Q8 [facility]MAINE PRN Reason: Protocol Last Admin: 07/15/17 00:44 Dose: 100 mls/hr Linezolid 600 mg in NS 300 ml (Zyvox 600mg/300ml Ns) 600 mg in 300 mls @ 300 mls/hr IVPB Q12 [facility]MAINE PRN Reason: Protocol Last Admin: 07/14/17 20:08 Dose: 300 mls/hr Amiodarone HCl 450 mg/ Sodium (Chloride) 259 mls @ 34.53 mls/hr IVPB .Q7H31M CHARMAINE; 1 MG/MIN PRN Reason: Protocol Last Admin: 07/14/17 01:00 Dose: 34.53 mls/hr Mupirocin (Bactroban Ointment) 1 applic TOP BID [facility] Last Admin: 07/14/17 16:23 Dose: 1 applic Ondansetron HCl (Zofran Inj) 4 mg IVP Q6H PRN PRN Reason: Nausea/Vomiting Last Admin: 07/13/17 21:22 Dose: 4 mg Pantoprazole Sodium (Protonix Inj) 40 mg IVP DAILY [facility] Last Admin: 07/14/17 08:33 Dose: 40 mg Saccharomyces Boulardii (Florastor) 250 mg PO BID [facility] Last Admin: 07/14/17 17:23 Dose: 250 mg - Labs Labs: 07/15/17 04:28 07/15/17 04:28 PT 27.1 Seconds (9.8-13.1) H 07/14/17 04:27 INR 2.5 (0.9-1.2) H 07/14/17 04:27 APTT 31.0 Seconds (25.6-37.1) 18 00:50 - Constitutional Appears: Well, Non-toxic, No Acute Distress - Respiratory Exam Respiratory Exam: Clear to Ausculation Bilateral, NORMAL BREATHING PATTERN - Cardiovascular Exam Cardiovascular Exam: REGULAR RHYTHM, +S1, +S2 - GI/Abdominal Exam GI & Abdominal Exam: Soft, Tenderness. absent: Distended, Firm, Guarding, Rigid , Rebound Additional comments: incision CDI RAMIN drains serous output - Neurological Exam Neurological Exam: Alert - Skin Skin Exam: Dry, Intact, Normal Color, Warm Assessment and Plan - Assessment and Plan (Free Text) Assessment: 72M s/p exploratory laparotomy with findings of perforated viscous. Small bowel resection with anastomosis POD#7 Plan: - DC enemes, continue colace - advance diet as tolerated - continue to monitor for more BMs Further recs discuss with Dr. Zaynab Miller, PGY2 <Mook Worthy - Last Filed: 07/15/17 18:52> Objective - Vital Signs/Intake and Output Vital Signs (last 24 hours): Temp Pulse Resp BP Pulse Ox 98.8 F 89 18 93/56 L 100 07/15/17 16:24 07/15/17 18:00 07/15/17 18:00 07/15/17 18:00 07/15/17 18:00 Intake and Output: 07/15/17 07/15/17 06:59 18:59 Intake Total 422 400 Output Total 650 1650 Balance -228 -1250 - Medications Medications: Current Medications Acetaminophen (Tylenol 325mg Tab) 650 mg PO Q4 PRN PRN Reason: Pain, moderate (4-7) Albuterol/Ipratropium (Duoneb 3 Mg/0.5 Mg (3 Ml) Ud) 3 ml INH RQ6 [facility] Last Admin: 07/15/17 13:17 Dose: 3 ml Diltiazem HCl (Cardizem) 60 mg PO Q8 [facility] Last Admin: 07/15/17 16:56 Dose: Not Given Docusate Sodium (Colace) 100 mg PO TID [facility] Last Admin: 07/15/17 16:56 Dose: 100 mg Furosemide (Lasix) 20 mg IVP DAILY [facility] Last Admin: 07/15/17 10:11 Dose: 20 mg Hydromorphone HCl (Dilaudid) 1 mg IVP Q4 PRN PRN Reason: Pain, severe (8-10) Last Admin: 07/15/17 12:02 Dose: 1 mg Linezolid 600 mg in NS 300 ml (Zyvox 600mg/300ml Ns) 600 mg in 300 mls @ 300 mls/hr IVPB Q12 [facility]MAINE PRN Reason: Protocol Last Admin: 07/15/17 10:15 Dose: 300 mls/hr Amiodarone HCl 450 mg/ Sodium (Chloride) 259 mls @ 34.53 mls/hr IVPB .Q7H31M CHARMAINE; 1 MG/MIN PRN Reason: Protocol Last Admin: 07/14/17 01:00 Dose: 34.53 mls/hr Cefepime HCl 1 gm/ Sodium (Chloride) 100 mls @ 100 mls/hr IVPB Q12 [facility]MAINE PRN Reason: Protocol Mupirocin (Bactroban Ointment) 1 applic TOP BID [facility] Last Admin: 07/15/17 16:55 Dose: 1 applic Ondansetron HCl (Zofran Inj) 4 mg IVP Q6H PRN PRN Reason: Nausea/Vomiting Last Admin: 07/13/17 21:22 Dose: 4 mg Pantoprazole Sodium (Protonix Inj) 40 mg IVP DAILY [facility] Last Admin: 07/15/17 10:15 Dose: 40 mg Saccharomyces Boulardii (Florastor) 250 mg PO BID [facility] Last Admin: 07/15/17 16:57 Dose: 250 mg - Labs Labs: 07/15/17 04:28 07/15/17 04:28 PT 27.1 Seconds (9.8-13.1) H 07/14/17 04:27 INR 2.5 (0.9-1.2) H 07/14/17 04:27 APTT 31.0 Seconds (25.6-37.1) 07/08/17 00:50 Attending/Attestation - Attestation I have fully participated in the care of the patient.: Yes I have reviewed all pertinent clinical information, including history, physical exam and plan: Yes Notes (Text): Advance diet as tolerated Transfer to Tele [facility] painter current mx OOB to walk DC drain on right side in am
[2017-07-15] MEDS: Saccharomyces Boulardi 250 mg Cap PO SCH ×2 (10:10→16:57)
[2017-07-15] MEDS: LINEZOLID IVPB SCH ×2 (10:15→20:09)
[2017-07-15] MEDS: NS IVPB SCH ×2 (10:15→20:09)
--- NOTE | 2017-07-15 10:31 | RAD ---
HISTORY: decerased bowel sounds COMPARISON: 07/13/2017 FINDINGS: BOWEL: Catheters overlie the upper abdomen. Surgical clips are seen overlying the abdomen with steffi also noted in the midline. Retrievable type IVC filter is appreciated, unchanged. There is nonspecific bowel gas pattern identified with some minimally irregular small bowel loops noted in the mid abdomen. Mildly dilated colonic loops are seen elsewhere with some probable residual fecal material seen in the transverse colon region. Evaluation of the lung bases is limited. Minor effusions are not excluded. No appreciable free air is seen on this limited supine radiograph. BONES: Unchanged. OTHER FINDINGS: None. IMPRESSION: Nonspecific bowel gas pattern with some minimal irregular loops in the mid abdomen suggesting ileus. No significant small bowel dilatation is clearly seen to suggest bowel obstruction. Mildly dilated colonic loops are also noted which may also represent ileus.
[2017-07-15] MEDS ORDERED: Potassium Chloride 20 mEq ER Tab PO ONE (13:08)
--- NOTE | 2017-07-15 13:16 | CP.PCM.PN ---
Subjective - Date & Time of Evaluation Date of Evaluation: 07/15/17 Time of Evaluation: 08:00 - Subjective Subjective: weak and lethargic but NAD in ICU with drains in place c/o abd pain Objective - Vital Signs/Intake and Output Vital Signs (last 24 hours): Temp Pulse Resp BP Pulse Ox 98.0 F 161 H 18 136/52 L 74 L 07/15/17 12:00 07/15/17 12:15 07/15/17 12:15 07/15/17 12:15 07/15/17 12:15 Intake and Output: 07/15/17 07/15/17 06:59 18:59 Intake Total 422 400 Output Total 650 200 Balance -228 200 - Medications Medications: Current Medications Acetaminophen (Tylenol 325mg Tab) 650 mg PO Q4 PRN PRN Reason: Pain, moderate (4-7) Albuterol/Ipratropium (Duoneb 3 Mg/0.5 Mg (3 Ml) Ud) 3 ml INH RQ6 [facility] Last Admin: 07/15/17 07:41 Dose: 3 ml Diltiazem HCl (Cardizem) 60 mg PO Q8 [facility] Docusate Sodium (Colace) 100 mg PO TID [facility] Last Admin: 07/15/17 12:00 Dose: 100 mg Furosemide (Lasix) 20 mg IVP DAILY [facility] Last Admin: 07/15/17 10:11 Dose: 20 mg Hydromorphone HCl (Dilaudid) 1 mg IVP Q4 PRN PRN Reason: Pain, severe (8-10) Last Admin: 07/15/17 12:02 Dose: 1 mg Cefepime HCl 2 gm/ Sodium (Chloride) 100 mls @ 100 mls/hr IVPB Q8 [facility]MAINE PRN Reason: Protocol Last Admin: 07/15/17 10:11 Dose: 100 mls/hr Linezolid 600 mg in NS 300 ml (Zyvox 600mg/300ml Ns) 600 mg in 300 mls @ 300 mls/hr IVPB Q12 [facility]MAINE PRN Reason: Protocol Last Admin: 07/15/17 10:15 Dose: 300 mls/hr Amiodarone HCl 450 mg/ Sodium (Chloride) 259 mls @ 34.53 mls/hr IVPB .Q7H31M CHARMAINE; 1 MG/MIN PRN Reason: Protocol Last Admin: 07/14/17 01:00 Dose: 34.53 mls/hr Mupirocin (Bactroban Ointment) 1 applic TOP BID [facility] Last Admin: 07/15/17 10:09 Dose: 1 applic Ondansetron HCl (Zofran Inj) 4 mg IVP Q6H PRN PRN Reason: Nausea/Vomiting Last Admin: 07/13/17 21:22 Dose: 4 mg Pantoprazole Sodium (Protonix Inj) 40 mg IVP DAILY [facility] Last Admin: 07/15/17 10:15 Dose: 40 mg Saccharomyces Boulardii (Florastor) 250 mg PO BID [facility] Last Admin: 07/15/17 10:10 Dose: 250 mg - Labs Labs: 07/15/17 04:28 07/15/17 04:28 PT 27.1 Seconds (9.8-13.1) H 07/14/17 04:27 INR 2.5 (0.9-1.2) H 07/14/17 04:27 APTT 31.0 Seconds (25.6-37.1) 07/08/17 00:50 - Constitutional Appears: Confused, Cachectic, Chronically Ill - Head Exam Head Exam: NORMOCEPHALIC - Eye Exam Eye Exam: PERRL - ENT Exam ENT Exam: Mucous Membranes Dry - Neck Exam Neck Exam: absent: Lymphadenopathy - Respiratory Exam Respiratory Exam: Decreased Breath Sounds, Rhonchi - Cardiovascular Exam Cardiovascular Exam: REGULAR RHYTHM, +S1, +S2 - GI/Abdominal Exam GI & Abdominal Exam: Distended, Soft. absent: Tenderness Additional comments: drains in place - Rectal Exam Rectal Exam: Deferred - Exam Exam: NORMAL INSPECTION - Extremities Exam Extremities Exam: absent: Pedal Edema - Back Exam Back Exam: absent: CVA tenderness (L), CVA tenderness (R) - Neurological Exam Neurological Exam: Alert, Altered, Awake - Psychiatric Exam Psychiatric exam: Depressed - Skin Skin Exam: Dry Assessment and Plan (1) Abdominal pain Status: Acute (2) COPD (chronic obstructive pulmonary disease) Status: Acute (3) Essential (primary) hypertension Status: Acute (4) Hx of atrial fibrillation, no current medication Status: Acute (5) Intestinal perforation Status: Acute (6) Perforated abdominal viscus Status: Acute (7) Sepsis Status: Acute - Assessment and Plan (Free Text) Assessment: sepsis improving s/p perf viscus pancytopenia persists - heme on board
--- NOTE | 2017-07-15 15:35 | RAD ---
PROCEDURE: CHEST RADIOGRAPH, 1 VIEW HISTORY: CHF COMPARISON: 07/11/2017 FINDINGS: LUNGS: There is once again evidence of increased density in the lower half of the lungs suggesting pleural effusions and atelectasis. Right internal jugular vein CVP is unchanged. No pneumothorax is noted. Heart and aorta are unchanged. No new infiltrate is clearly seen. PLEURA: Slight increase in effusions and atelectasis. Right apical pleural thickening and scarring in the right apex are unchanged. CARDIOVASCULAR: Vasculature is unchanged. OSSEOUS STRUCTURES: No significant abnormalities. VISUALIZED UPPER ABDOMEN: Normal. OTHER FINDINGS: None. IMPRESSION: Slight increase in effusions and atelectasis.
[2017-07-15] MEDS: Cefepime 1 GM in Sodium Chloride 0.9% 100 ML IVPB SCH (20:10)
[2017-07-15] MEDS ORDERED: HYDROmorphone 0.5 mg/0.5 ml ISec IVP STA (22:18)
[2017-07-16] MEDS: HYDROmorphone 0.5 mg/0.5 ml ISec IVP PRN ×4 (02:27→20:10)
[2017-07-16 06:08] LABS: BASO % 0.3 % (0.0-2.0); EOS # 0.1 K/uL (0.0-0.7); EOS % 4.3 % (0.0-4.0); HEMOGLOBIN 8.5 g/dL (12.0-18.0); LYMPH # 0.5 K/uL (1.0-4.3); LYMPH % 20.2 % (20.0-40.0); MEAN CELL VOLUME 97.5 fl (80.0-94.0); MEAN CORPUSCULAR HEMOGLOBIN 33.4 pg (27.0-31.0); MEAN CORPUSCULAR HGB CONC 34.2 g/dL (33.0-37.0); MEAN PLATELET VOLUME 9.3 fl (7.2-11.7); MONO # 0.2 K/uL (0.0-0.8); MONO % 7.2 % (0.0-10.0); NEUT # 1.8 K/uL (1.8-7.0); NRBC % 0.1 % (0.0-0.0); RBC 2.54 Mil/uL (4.40-5.90); RED CELL DISTRIBUTION WIDTH 16.4 % (11.5-14.5); WHITE BLOOD COUNT 2.6 K/uL (4.8-10.8)
[2017-07-16 06:17] LABS: ALB/GLOB RATIO 0.6 (1.0-2.1); ALBUMIN 1.5 g/dL (3.5-5.0); ALT/SGPT 44 U/L (21-72); AST/SGOT 19 U/L (17-59); BLOOD UREA NITROGEN 22 mg/dl (9-20); CALCIUM 6.6 mg/dL (8.4-10.2); GFR AFRICAN-AMERICAN > 60; GFR NON-AFRICAN AMERICAN > 60
--- NOTE | 2017-07-16 07:35 | CP.CCUPN ---
CCU Subjective - Physician Review Subjective (Free Text): 07/16/17 14:36 The patient was Seen/interviewed and examined by me at the bedside during ICU round, Medical records reviewed and Management issues were discussed and formulated with the house staff. Events reviewed Patient admitted with Acute abdomen, free air sec to perforated viscous 07/08, Underwent Jejunal perforation repair, small bowel resection and primary anastomosis, enterolysis, Irrisept irrigation, TEP block, RIJ TLC and placement, NGT placement This morning he feels well, he is Alert and oriented Comfortable, in no Distress In A fib, HR controlled, off amiodoron infusion and now on Cardizem 60 mg PO Q8 No Vasopressors Afebrile, A_Fib on the monitor Evaluated by wound care Scrotum elevated Last 24H I&O [id number]/[id number] Folly cath removed Pain well controlled with IV Dilauded Will attempt PIV and remove the central line 07/16/17 14:50 CCU Objective - Vital Signs / Intake & Output Vital Signs (Last 4 hours): Vital Signs Temp Pulse Resp BP Pulse Ox 07/16/17 06:00 101 H 24 117/56 L 98 07/16/17 04:00 98.9 F 98 H 20 88/54 L 99 Intake and Output (Last 8hrs): Intake & Output 07/15/17 07/16/17 07/16/17 22:59 06:59 14:59 Intake Total 308 16 Output Total 150 850 Balance 158 -834 Weight 171 lb 4.8 oz Intake: IV 8 16 Intake, Piggyback 300 Output: Drainage 150 600 Left 30 40 Right 120 560 Urine 250 Urine, Voided 250 - Physical Exam Head: Positive for: Normocephalic Pupils: Positive for: PERRL Conjunctiva: Negative for: Icteric Mouth: Positive for: Moist Mucous Membranes Neck: Negative for: JVD Respiratory/Chest: Positive for: Clear to Auscultation, Decreased Breath Sounds Cardiovascular: Positive for: Irregular Rhythm, Tachycardic. Negative for: Murmurs, Rub Abdomen: Positive for: Tenderness. Negative for: Distention, Normal Bowel Sounds, Mass/Organomegaly Lower Extremity: Positive for: NORMAL PULSES. Negative for: CALF TENDERNESS, Cyanosis Neurological: Positive for: Motor Func Grossly Intact, Normal Sensory Function Skin: Positive for: Warm, Dry. Negative for: Rashes Psychiatric: Positive for: Alert, Oriented x 3 - Medications Active Medications: Active Medications Generic Name Dose Route Start Last Admin Trade Name Freq PRN Reason Stop Dose Admin Acetaminophen 650 mg 07/13/17 07:49 Tylenol 325mg Tab PO Q4 PRN Pain, moderate (4-7) Diltiazem HCl 60 mg 07/15/17 17:00 07/16/17 02:00 Cardizem PO 60 mg Q8 [facility] Administration Docusate Sodium 100 mg 07/14/17 09:43 07/15/17 16:56 Colace PO 100 mg TID [facility] Administration Furosemide 20 mg 07/14/17 09:00 07/15/17 10:11 Lasix IVP 20 mg DAILY [facility] Administration Hydromorphone HCl 1 mg 07/14/17 11:45 07/16/17 02:27 Dilaudid IVP 1 mg Q4 PRN Administration Pain, severe (8-10) Linezolid 600 mg in NS 300 ml 600 mg in 300 mls @ 300 mls/hr 07/13/17 11:00 07/15/17 20:09 Zyvox 600mg/300ml Ns IVPB 300 mls/hr Q12 [facility] Administration Protocol Amiodarone HCl 450 mg/ Sodium 259 mls @ 34.53 mls/hr 07/13/17 15:45 07/14/17 01:00 Chloride IVPB 34.53 mls/hr .Q7H31M [facility] Administration Protocol 1 MG/MIN Cefepime HCl 1 gm/ Sodium 100 mls @ 100 mls/hr 07/15/17 21:00 07/15/17 20:10 Chloride IVPB 100 mls/hr Q12 [facility] Administration Protocol Mupirocin 1 applic 07/09/17 20:15 07/15/17 16:55 Bactroban Ointment TOP 1 applic BID [facility] Administration Ondansetron HCl 4 mg 07/07/17 23:32 07/13/17 21:22 Zofran Inj IVP 4 mg Q6H PRN Administration Nausea/Vomiting Pantoprazole Sodium 40 mg 07/09/17 14:30 07/15/17 10:15 Protonix Inj IVP 40 mg DAILY [facility] Administration Saccharomyces Boulardii 250 mg 07/13/17 17:00 07/15/17 16:57 Florastor PO 250 mg BID [facility] Administration - Patient Studies Lab Studies: Lab Studies 07/16/17 07/16/17 07/16/17 Range/Units 06:16 05:30 05:30 WBC 2.6 L (4.8-10.8) K/uL RBC 2.54 L (4.40-5.90) Mil/uL Hgb 8.5 L (12.0-18.0) g/dL Hct 24.7 L (35.0-51.0) % MCV 97.5 H (80.0-94.0) fl MCH 33.4 H (27.0-31.0) pg MCHC 34.2 (33.0-37.0) g/dL RDW 16.4 H (11.5-14.5) % Plt Count 56 L D (130-400) K/uL MPV 9.3 (7.2-11.7) fl Neut % (Auto) 68.0 (50.0-75.0) % Lymph % (Auto) 20.2 (20.0-40.0) % [place] % (Auto) 7.2 (0.0-10.0) % Eos % (Auto) 4.3 H (0.0-4.0) % Baso % (Auto) 0.3 (0.0-2.0) % Neut # (Auto) 1.8 (1.8-7.0) K/uL Lymph # (Auto) 0.5 L (1.0-4.3) K/uL [place] # (Auto) 0.2 (0.0-0.8) K/uL Eos # (Auto) 0.1 (0.0-0.7) K/uL Baso # (Auto) 0.0 (0.0-0.2) K/uL Sodium 139 (132-148) mmol/l Potassium 3.1 L (3.6-5.0) MMOL/L Chloride 105 (98-107) mmol/L Carbon Dioxide 25 (22-30) mmol/L Anion Gap 12 (10-20) BUN 22 H (9-20) mg/dl Creatinine 0.9 (0.8-1.5) mg/dl Est GFR ( Amer) > 60 Est GFR (Non-Af Amer) > 60 POC Glucose (mg/dL) 123 H (65-110) mg/dL Random Glucose 99 (75-110) mg/dL Calcium 6.6 L (8.4-10.2) mg/dL Phosphorus 2.8 (2.5-4.5) mg/dl Magnesium 1.6 (1.6-2.3) MG/DL Total Bilirubin 0.6 (0.2-1.3) mg/dl AST 19 (17-59) U/L ALT 44 (21-72) U/L Alkaline Phosphatase 35 L (38-126) U/L Total Protein 3.8 L (6.3-8.2) G/DL Albumin 1.5 L (3.5-5.0) g/dL Globulin 2.3 (2.2-3.9) gm/dL Albumin/Globulin Ratio 0.6 L (1.0-2.1) 07/15/17 07/15/17 07/15/17 Range/Units 22:18 16:37 11:34 WBC (4.8-10.8) K/uL RBC (4.40-5.90) Mil/uL Hgb (12.0-18.0) g/dL Hct (35.0-51.0) % MCV (80.0-94.0) fl MCH (27.0-31.0) pg MCHC (33.0-37.0) g/dL RDW (11.5-14.5) % Plt Count (130-400) K/uL MPV (7.2-11.7) fl Neut % (Auto) (50.0-75.0) % Lymph % (Auto) (20.0-40.0) % [place] % (Auto) (0.0-10.0) % Eos % (Auto) (0.0-4.0) % Baso % (Auto) (0.0-2.0) % Neut # (Auto) (1.8-7.0) K/uL Lymph # (Auto) (1.0-4.3) K/uL [place] # (Auto) (0.0-0.8) K/uL Eos # (Auto) (0.0-0.7) K/uL Baso # (Auto) (0.0-0.2) K/uL Sodium (132-148) mmol/l Potassium (3.6-5.0) MMOL/L Chloride (98-107) mmol/L Carbon Dioxide (22-30) mmol/L Anion Gap (10-20) BUN (9-20) mg/dl Creatinine (0.8-1.5) mg/dl Est GFR ( Amer) Est GFR (Non-Af Amer) POC Glucose (mg/dL) 142 H 147 H 134 H (65-110) mg/dL Random Glucose (75-110) mg/dL Calcium (8.4-10.2) mg/dL Phosphorus (2.5-4.5) mg/dl Magnesium (1.6-2.3) MG/DL Total Bilirubin (0.2-1.3) mg/dl AST (17-59) U/L ALT (21-72) U/L Alkaline Phosphatase (38-126) U/L Total Protein (6.3-8.2) G/DL Albumin (3.5-5.0) g/dL Globulin (2.2-3.9) gm/dL Albumin/Globulin Ratio (1.0-2.1) Laboratory Results - last 24 hr 07/15/17 07/15/17 07/15/17 11:34 16:37 22:18 WBC RBC Hgb Hct MCV MCH MCHC RDW Plt Count MPV Neut % (Auto) Lymph % (Auto) [place] % (Auto) Eos % (Auto) Baso % (Auto) Neut # (Auto) Lymph # (Auto) [place] # (Auto) Eos # (Auto) Baso # (Auto) Sodium Potassium Chloride Carbon Dioxide Anion Gap BUN Creatinine Est GFR ( Amer) Est GFR (Non-Af Amer) POC Glucose (mg/dL) 134 H 147 H 142 H Random Glucose Calcium Phosphorus Magnesium Total Bilirubin AST ALT Alkaline Phosphatase Total Protein Albumin Globulin Albumin/Globulin Ratio 07/16/17 07/16/17 07/16/17 05:30 05:30 06:16 WBC 2.6 L RBC 2.54 L Hgb 8.5 L Hct 24.7 L MCV 97.5 H MCH 33.4 H MCHC 34.2 RDW 16.4 H Plt Count 56 L D MPV 9.3 Neut % (Auto) 68.0 Lymph % (Auto) 20.2 [place] % (Auto) 7.2 Eos % (Auto) 4.3 H Baso % (Auto) 0.3 Neut # (Auto) 1.8 Lymph # (Auto) 0.5 L [place] # (Auto) 0.2 Eos # (Auto) 0.1 Baso # (Auto) 0.0 Sodium 139 Potassium 3.1 L Chloride 105 Carbon Dioxide 25 Anion Gap 12 BUN 22 H Creatinine 0.9 Est GFR ( Amer) > 60 Est GFR (Non-Af Amer) > 60 POC Glucose (mg/dL) 123 H Random Glucose 99 Calcium 6.6 L Phosphorus 2.8 Magnesium 1.6 Total Bilirubin 0.6 AST 19 ALT 44 Alkaline Phosphatase 35 L Total Protein 3.8 L Albumin 1.5 L Globulin 2.3 Albumin/Globulin Ratio 0.6 L Fingerstick Blood Sugar Results: 123 Review of Systems - Cardiovascular Cardiovascular: absent: As Per HPI, Acrocyanosis, Chest Pain, Chest Pain at Rest , Chest Pain with Activity, Claudication, Diaphoresis, Dyspnea, Dyspnea on Exertion, Edema, Irregular Heart Rhythm, Pain Radiating to Arm/Neck/Jaw, Leg Edema, Leg Ulcers, Lightheadedness, Orthopnea, Palpitations, Paroxysmal Nocturnal Dyspnea, Pedal Edema, Radiating Pain, Rapid Heart Rate, Slow Heart Rate, Syncope, Other, UNREMARKABLE - Respiratory Respiratory: absent: As Per HPI, Cough, Dyspnea, Hemoptysis, Dyspnea on Exertion , Wheezing, Snoring, Stridor, Pain on Inspiration, Chest Congestion, Excessive Mucous Production, Change in Mucous Color, Pain with Coughing, Other, UNREMARKABLE - Gastrointestinal Gastrointestinal: absent: As Per HPI, Abdominal Pain, Belching, Bloating, Change in Bowel Habits, Change in Stool Character, Coffee Ground Emesis, Constipation, Cramping, Diarrhea, Dyspepsia, Dysphagia, Early Satiety, Excessive Flatus, Fecal Incontinence, Heartburn, Hematemesis, Hematochezia, Loose Stools, Melena, Nausea, Odynophagia, Temesmus, Vomiting, Other, UNREMARKABLE Critical Care Progress Note - Extremities/Vascular Does the Patient have a Central Venous Catheter?: Yes Does the Patient need a Central Venous Catheter?: Yes Does the Patient have a Russell Catheter?: No Does the Patient need a Russell Catheter?: No - Nutrition Nutrition: Nutrition Category Date Time Status Cardiac [Heart Healthy Diet] [DIET] Diets 07/15/17 Lunch Active Assessment/Plan (1) Intestinal perforation Current Visit: Yes Status: Acute Priority: High Comment: S/P Laprotomy, for perforated bowel Clear liquid diet, Advance as tolerate (2) Atrial fibrillation Current Visit: Yes Status: Acute Priority: High Comment: HR controlled OFF amiodoron infusion Continue Cardizem 60 mg PO Q8 No anticoagulants for time being due to thrombocytopenia (3) COPD (chronic obstructive pulmonary disease) Current Visit: Yes Status: Acute (4) Pancytopenia Current Visit: No Status: Acute Comment: No neutropenia H/H Stable platelets up trending to 56 No evidance of actie bleed (5) Acute urinary retention Current Visit: No Status: Acute Comment: Russell removed, needed Staraigh cath today 750cc of jeison urine came out (6) Hypokalemia Current Visit: Yes Status: Acute
[2017-07-16 07:39] LABS: INR 2.3 (0.9-1.2); PARTIAL THROMBOPLASTIN TIME 53.6 Seconds (25.6-37.1); PROTHROMBIN TIME 25.7 Seconds (9.8-13.1)
[2017-07-16] MEDS: LINEZOLID IVPB SCH ×2 (08:50→20:08)
[2017-07-16] MEDS: NS IVPB SCH ×2 (08:50→20:08)
[2017-07-16] MEDS: Cefepime 1 GM in Sodium Chloride 0.9% 100 ML IVPB SCH ×2 (08:51→21:46)
[2017-07-16] MEDS: Saccharomyces Boulardi 250 mg Cap PO SCH ×2 (09:31→17:33)
--- NOTE | 2017-07-16 10:37 | CP.PCM.PN ---
Subjective - Date & Time of Evaluation Date of Evaluation: 07/16/17 Time of Evaluation: 06:00 - Subjective Subjective: afeb on cefepime/zyvox drains in place Plts stable Dr Nickerson on board Objective - Vital Signs/Intake and Output Vital Signs (last 24 hours): Temp Pulse Resp BP Pulse Ox 98.8 F 89 16 93/58 L 97 07/16/17 08:00 07/16/17 09:30 07/16/17 08:00 07/16/17 09:30 07/16/17 08:00 Intake and Output: 07/16/17 07/16/17 06:59 18:59 Intake Total 324 Output Total 850 Balance -526 - Medications Medications: Current Medications Acetaminophen (Tylenol 325mg Tab) 650 mg PO Q4 PRN PRN Reason: Pain, moderate (4-7) Diltiazem HCl (Cardizem) 60 mg PO Q8 [facility] Last Admin: 07/16/17 09:30 Dose: 60 mg Docusate Sodium (Colace) 100 mg PO TID [facility] Last Admin: 07/16/17 08:49 Dose: 100 mg Furosemide (Lasix) 20 mg IVP DAILY [facility] Last Admin: 07/16/17 08:49 Dose: 20 mg Hydromorphone HCl (Dilaudid) 1 mg IVP Q4 PRN PRN Reason: Pain, severe (8-10) Last Admin: 07/16/17 08:36 Dose: 1 mg Linezolid 600 mg in NS 300 ml (Zyvox 600mg/300ml Ns) 600 mg in 300 mls @ 300 mls/hr IVPB Q12 [facility] PRN Reason: Protocol Last Admin: 07/16/17 08:50 Dose: 300 mls/hr Amiodarone HCl 450 mg/ Sodium (Chloride) 259 mls @ 34.53 mls/hr IVPB .Q7H31M [facility]; 1 MG/MIN PRN Reason: Protocol Last Admin: 07/14/17 01:00 Dose: 34.53 mls/hr Cefepime HCl 1 gm/ Sodium (Chloride) 100 mls @ 100 mls/hr IVPB Q12 [facility] PRN Reason: Protocol Last Admin: 07/16/17 08:51 Dose: 100 mls/hr Mupirocin (Bactroban Ointment) 1 applic TOP BID [facility] Last Admin: 07/16/17 08:50 Dose: 1 applic Ondansetron HCl (Zofran Inj) 4 mg IVP Q6H PRN PRN Reason: Nausea/Vomiting Last Admin: 07/13/17 21:22 Dose: 4 mg Pantoprazole Sodium (Protonix Inj) 40 mg IVP DAILY [facility] Last Admin: 07/16/17 08:49 Dose: 40 mg Saccharomyces Boulardii (Florastor) 250 mg PO BID [facility] Last Admin: 07/16/17 09:31 Dose: 250 mg - Labs Labs: 07/16/17 05:30 07/16/17 05:30 PT 25.7 Seconds (9.8-13.1) H 07/16/17 06:31 INR 2.3 (0.9-1.2) H 07/16/17 06:31 APTT 53.6 Seconds (25.6-37.1) H 07/16/17 06:31 - Constitutional Appears: Non-toxic, Cachectic, Chronically Ill - Head Exam Head Exam: NORMOCEPHALIC - Eye Exam Eye Exam: PERRL Pupil Exam: NORMAL ACCOMODATION - ENT Exam ENT Exam: Mucous Membranes Dry - Neck Exam Neck Exam: absent: Lymphadenopathy - Respiratory Exam Respiratory Exam: Decreased Breath Sounds - Cardiovascular Exam Cardiovascular Exam: REGULAR RHYTHM - GI/Abdominal Exam GI & Abdominal Exam: Distended, Soft - Rectal Exam Rectal Exam: Deferred Assessment and Plan (1) Abdominal pain Status: Acute (2) COPD (chronic obstructive pulmonary disease) Status: Acute (3) Essential (primary) hypertension Status: Acute (4) Hx of atrial fibrillation, no current medication Status: Acute (5) Intestinal perforation Status: Acute (6) Perforated abdominal viscus Status: Acute (7) Sepsis Status: Acute
--- NOTE | 2017-07-16 10:44 | CP.PCM.PN ---
<Adelfo Hummel - Last Filed: 07/16/17 10:56> Subjective - Date & Time of Evaluation Date of Evaluation: 07/16/17 Time of Evaluation: 07:10 - Subjective Subjective: Patient seen and examined. Having some sanguineous drainage along inferior portion of surgical incision site. Erythema noted along surgical incision site. Right RAMIN drainage ~800cc/24 hr of serous fluid.Left RAMIN 40ccs/24 hrs serous. Objective - Vital Signs/Intake and Output Vital Signs (last 24 hours): Temp Pulse Resp BP Pulse Ox 98.8 F 89 16 93/58 L 97 07/16/17 08:00 07/16/17 09:30 07/16/17 08:00 07/16/17 09:30 07/16/17 08:00 Intake and Output: 07/16/17 07/16/17 06:59 18:59 Intake Total 324 Output Total 850 Balance -526 - Medications Medications: Current Medications Acetaminophen (Tylenol 325mg Tab) 650 mg PO Q4 PRN PRN Reason: Pain, moderate (4-7) Diltiazem HCl (Cardizem) 60 mg PO Q8 [facility] Last Admin: 07/16/17 09:30 Dose: 60 mg Docusate Sodium (Colace) 100 mg PO TID [facility] Last Admin: 07/16/17 08:49 Dose: 100 mg Furosemide (Lasix) 20 mg IVP DAILY [facility] Last Admin: 07/16/17 08:49 Dose: 20 mg Hydromorphone HCl (Dilaudid) 1 mg IVP Q4 PRN PRN Reason: Pain, severe (8-10) Last Admin: 07/16/17 08:36 Dose: 1 mg Linezolid 600 mg in NS 300 ml (Zyvox 600mg/300ml Ns) 600 mg in 300 mls @ 300 mls/hr IVPB Q12 [facility] PRN Reason: Protocol Last Admin: 07/16/17 08:50 Dose: 300 mls/hr Amiodarone HCl 450 mg/ Sodium (Chloride) 259 mls @ 34.53 mls/hr IVPB .Q7H31M [facility]; 1 MG/MIN PRN Reason: Protocol Last Admin: 07/14/17 01:00 Dose: 34.53 mls/hr Cefepime HCl 1 gm/ Sodium (Chloride) 100 mls @ 100 mls/hr IVPB Q12 [facility] PRN Reason: Protocol Last Admin: 07/16/17 08:51 Dose: 100 mls/hr Mupirocin (Bactroban Ointment) 1 applic TOP BID [facility] Last Admin: 07/16/17 08:50 Dose: 1 applic Ondansetron HCl (Zofran Inj) 4 mg IVP Q6H PRN PRN Reason: Nausea/Vomiting Last Admin: 07/13/17 21:22 Dose: 4 mg Pantoprazole Sodium (Protonix Inj) 40 mg IVP DAILY [facility] Last Admin: 07/16/17 08:49 Dose: 40 mg Saccharomyces Boulardii (Florastor) 250 mg PO BID [facility] Last Admin: 07/16/17 09:31 Dose: 250 mg - Labs Labs: 07/16/17 05:30 07/16/17 05:30 PT 25.7 Seconds (9.8-13.1) H 07/16/17 06:31 INR 2.3 (0.9-1.2) H 07/16/17 06:31 APTT 53.6 Seconds (25.6-37.1) H 07/16/17 06:31 - Constitutional Appears: No Acute Distress - Head Exam Head Exam: NORMOCEPHALIC - Eye Exam Eye Exam: Normal appearance - ENT Exam ENT Exam: Mucous Membranes Moist - Respiratory Exam Respiratory Exam: NORMAL BREATHING PATTERN - Cardiovascular Exam Cardiovascular Exam: +S1, +S2 - GI/Abdominal Exam GI & Abdominal Exam: Soft - Extremities Exam Extremities Exam: Normal Inspection - Neurological Exam Neurological Exam: Alert, Awake, Oriented x3 - Psychiatric Exam Psychiatric exam: Normal Mood - Skin Skin Exam: Dry, Intact, Warm Assessment and Plan - Assessment and Plan (Free Text) Assessment: 72M s/p exploratory laparotomy with findings of perforated viscous. Small bowel resection with anastomosis POD#8 Plan: Advance diet as tolerated Ok to Transfer to telemetry from surgical standpoint Continue with colace Medical management per primary team Patient needs to be OOB Encourage ambulation Will dc right side abdominal drain D/w Dr. Zaynab Escoto PGY2 <Mook Worthy - Last Filed: 07/18/17 21:04> Objective - Vital Signs/Intake and Output Vital Signs (last 24 hours): Temp Pulse Resp BP Pulse Ox 98.6 F 76 17 110/61 95 07/18/17 16:00 07/18/17 18:00 07/18/17 16:00 07/18/17 18:00 07/18/17 12:00 Intake and Output: 07/18/17 07/19/17 18:59 06:59 Intake Total 970 Output Total 850 Balance 120 - Medications Medications: Current Medications Acetaminophen (Tylenol 325mg Tab) 650 mg PO Q4 PRN PRN Reason: Pain, moderate (4-7) Diltiazem HCl (Cardizem) 60 mg PO Q8 [facility] Last Admin: 07/18/17 16:28 Dose: 60 mg Docusate Sodium (Colace) 100 mg PO TID [facility] Last Admin: 07/18/17 16:28 Dose: Not Given Furosemide (Lasix) 20 mg IVP DAILY [facility] Last Admin: 07/18/17 08:58 Dose: 20 mg Hydromorphone HCl (Dilaudid) 1 mg IVP Q4 PRN PRN Reason: Pain, severe (8-10) Last Admin: 07/18/17 14:25 Dose: 1 mg Linezolid 600 mg in NS 300 ml (Zyvox 600mg/300ml Ns) 600 mg in 300 mls @ 300 mls/hr IVPB Q12 [facility] PRN Reason: Protocol Last Admin: 07/18/17 09:01 Dose: 300 mls/hr Amiodarone HCl 450 mg/ Sodium (Chloride) 259 mls @ 34.53 mls/hr IVPB .Q7H31M [facility]; 1 MG/MIN PRN Reason: Protocol Last Admin: 07/14/17 01:00 Dose: 34.53 mls/hr Cefepime HCl 1 gm/ Sodium (Chloride) 50 mls @ 50 mls/hr IVPB Q12 [facility] PRN Reason: Protocol Mupirocin (Bactroban Ointment) 1 applic TOP BID [facility] Last Admin: 07/18/17 16:27 Dose: 1 applic Octreotide Acetate (Sandostatin) 300 mcg SC Q8 [facility] Last Admin: 07/18/17 16:31 Dose: 300 mcg Ondansetron HCl (Zofran Inj) 4 mg IVP Q6H PRN PRN Reason: Nausea/Vomiting Last Admin: 07/17/17 05:26 Dose: 4 mg Potassium Chloride (Potassium Chloride Oral Soln) 20 meq PO BID [facility] Last Admin: 07/18/17 16:30 Dose: 20 meq Saccharomyces Boulardii (Florastor) 250 mg PO BID [facility] Last Admin: 07/18/17 16:30 Dose: 250 mg - Labs Labs: 07/18/17 08:04 07/18/17 08:04 PT 25.7 Seconds (9.8-13.1) H 07/16/17 06:31 INR 2.3 (0.9-1.2) H 07/16/17 06:31 APTT 53.6 Seconds (25.6-37.1) H 07/16/17 06:31 Attending/Attestation - Attestation I have personally seen and examined this patient.: Yes I have fully participated in the care of the patient.: Yes I have reviewed all pertinent clinical information, including history, physical exam and plan: Yes Notes (Text): Pt was seen and examined at bedside Agree with above note and assessment Pt is improving clinically Right side drain output approx [address] scan of A/P with PO and IV constrast Repeat labs in am OOB to walk Plan d.w pt in detail Risk and benefit explained in detail.
[2017-07-16 16:59] LABS: HEPATITIS A IGM NEGATIVE (NEGATIVE); HEPATITIS B CORE AB NEGATIVE (NEGATIVE)
[2017-07-16 17:10] LABS: HEPATITIS C ANTIBODY NEGATIVE (NEGATIVE)
[2017-07-16] MEDS: Potassium Chloride 20 mEq 100 ML IVPB SCH ×2 (17:26→19:00)
[2017-07-16] MEDS: Potassium Chloride 20 mEq/15 ml LIQ UD PO SCH (17:27)
[2017-07-16 17:57] LABS: HEPATITIS B SURFACE AG Reactive (NEGATIVE)
--- NOTE | 2017-07-16 23:56 | CP.PCM.PN ---
Subjective - Date & Time of Evaluation Date of Evaluation: 07/16/17 Time of Evaluation: 11:00 - Subjective Subjective: Patient feels a lot better Noted improvement of platelet now more than 50, afebrile still with significant amount of drainage. Objective - Vital Signs/Intake and Output Vital Signs (last 24 hours): Temp Pulse Resp BP Pulse Ox 99.1 F 85 17 111/57 L 100 07/16/17 20:00 07/16/17 22:00 07/16/17 22:00 07/16/17 22:00 07/16/17 22:00 Intake and Output: 07/16/17 07/17/17 18:59 06:59 Intake Total 1000 370 Output Total 850 Balance 150 370 - Medications Medications: Current Medications Acetaminophen (Tylenol 325mg Tab) 650 mg PO Q4 PRN PRN Reason: Pain, moderate (4-7) Diltiazem HCl (Cardizem) 60 mg PO Q8 [facility] Last Admin: 07/16/17 17:24 Dose: 60 mg Docusate Sodium (Colace) 100 mg PO TID [facility] Last Admin: 07/16/17 17:25 Dose: 100 mg Furosemide (Lasix) 20 mg IVP DAILY [facility] Last Admin: 07/16/17 08:49 Dose: 20 mg Hydromorphone HCl (Dilaudid) 1 mg IVP Q4 PRN PRN Reason: Pain, severe (8-10) Last Admin: 07/16/17 20:10 Dose: 1 mg Linezolid 600 mg in NS 300 ml (Zyvox 600mg/300ml Ns) 600 mg in 300 mls @ 300 mls/hr IVPB Q12 [facility] PRN Reason: Protocol Last Admin: 07/16/17 20:08 Dose: 300 mls/hr Amiodarone HCl 450 mg/ Sodium (Chloride) 259 mls @ 34.53 mls/hr IVPB .Q7H31M [facility]; 1 MG/MIN PRN Reason: Protocol Last Admin: 07/14/17 01:00 Dose: 34.53 mls/hr Cefepime HCl 1 gm/ Sodium (Chloride) 100 mls @ 100 mls/hr IVPB Q12 [facility] PRN Reason: Protocol Last Admin: 07/16/17 21:46 Dose: 100 mls/hr Mupirocin (Bactroban Ointment) 1 applic TOP BID [facility] Last Admin: 07/16/17 17:24 Dose: 1 applic Ondansetron HCl (Zofran Inj) 4 mg IVP Q6H PRN PRN Reason: Nausea/Vomiting Last Admin: 07/13/17 21:22 Dose: 4 mg Potassium Chloride (Potassium Chloride Oral Soln) 20 meq PO BID [facility] Last Admin: 07/16/17 17:27 Dose: 20 meq Saccharomyces Boulardii (Florastor) 250 mg PO BID [facility] Last Admin: 07/16/17 17:33 Dose: 250 mg - Labs Labs: 07/16/17 05:30 07/16/17 05:30 PT 25.7 Seconds (9.8-13.1) H 07/16/17 06:31 INR 2.3 (0.9-1.2) H 07/16/17 06:31 APTT 53.6 Seconds (25.6-37.1) H 07/16/17 06:31 - Head Exam Head Exam: NORMAL INSPECTION - Respiratory Exam Respiratory Exam: Clear to Ausculation Bilateral - Cardiovascular Exam Cardiovascular Exam: Irregular Rhythm - GI/Abdominal Exam GI & Abdominal Exam: Distended - Neurological Exam Neurological Exam: Awake, Oriented x3 Assessment and Plan (1) Abdominal pain Status: Acute (2) COPD (chronic obstructive pulmonary disease) Status: Acute (3) Essential (primary) hypertension Status: Acute (4) Hx of atrial fibrillation, no current medication Status: Acute (5) Intestinal perforation Status: Acute (6) Perforated abdominal viscus Status: Acute (7) Atrial fibrillation Status: Acute (8) Anemia Status: Acute (9) Thrombocytopenia Status: Acute - Assessment and Plan (Free Text) Plan: Cont antibiotics cont drain will prob need repeat CT scan of the abd cont iv antibiotics monitor cbc cmp
[2017-07-17] MEDS: HYDROmorphone 0.5 mg/0.5 ml ISec IVP PRN ×2 (03:55→22:15)
[2017-07-17 05:31] LABS: HEMOGLOBIN 9.3 g/dL (12.0-18.0); MEAN CELL VOLUME 98.4 fl (80.0-94.0); MEAN CORPUSCULAR HEMOGLOBIN 33.1 pg (27.0-31.0); MEAN CORPUSCULAR HGB CONC 33.6 g/dL (33.0-37.0); RBC 2.8 Mil/uL (4.40-5.90); RED CELL DISTRIBUTION WIDTH 16.4 % (11.5-14.5); WHITE BLOOD COUNT 2.5 K/uL (4.8-10.8)
[2017-07-17 05:55] LABS: ALB/GLOB RATIO 0.7 (1.0-2.1); ALBUMIN 1.7 g/dL (3.5-5.0); ALT/SGPT 44 U/L (21-72); AST/SGOT 23 U/L (17-59); BLOOD UREA NITROGEN 23 mg/dl (9-20); CALCIUM 6.9 mg/dL (8.4-10.2); GFR AFRICAN-AMERICAN > 60; GFR NON-AFRICAN AMERICAN > 60
--- NOTE | 2017-07-17 07:59 | CP.PCM.PN ---
<Delfino Lagos - Last Filed: 07/17/17 07:57> Subjective - Date & Time of Evaluation Date of Evaluation: 07/17/17 Time of Evaluation: 07:57 - Subjective Subjective: Surgery Progress Note: Dr. Worthy Patient seen and examined. Erythema noted along surgical incision site. Continues to report of belly tenderness. Denies of F/N/V/C/SOB/CP. Serous with hint of bile color drainage noted from the right RAMIN. No new complains. Objective - Vital Signs/Intake and Output Vital Signs (last 24 hours): Temp Pulse Resp BP Pulse Ox 99.3 F 94 H 25 H 120/72 100 07/17/17 04:00 07/17/17 06:00 07/17/17 06:00 07/17/17 06:00 07/17/17 06:00 Intake and Output: 07/17/17 07/17/17 06:59 18:59 Intake Total 753 Output Total 410 Balance 343 - Medications Medications: Current Medications Acetaminophen (Tylenol 325mg Tab) 650 mg PO Q4 PRN PRN Reason: Pain, moderate (4-7) Diltiazem HCl (Cardizem) 60 mg PO Q8 [facility] Last Admin: 07/17/17 00:00 Dose: 60 mg Docusate Sodium (Colace) 100 mg PO TID [facility] Last Admin: 07/16/17 17:25 Dose: 100 mg Furosemide (Lasix) 20 mg IVP DAILY [facility] Last Admin: 07/16/17 08:49 Dose: 20 mg Hydromorphone HCl (Dilaudid) 1 mg IVP Q4 PRN PRN Reason: Pain, severe (8-10) Last Admin: 07/17/17 03:55 Dose: 1 mg Linezolid 600 mg in NS 300 ml (Zyvox 600mg/300ml Ns) 600 mg in 300 mls @ 300 mls/hr IVPB Q12 [facility] PRN Reason: Protocol Last Admin: 07/16/17 20:08 Dose: 300 mls/hr Amiodarone HCl 450 mg/ Sodium (Chloride) 259 mls @ 34.53 mls/hr IVPB .Q7H31M [facility]; 1 MG/MIN PRN Reason: Protocol Last Admin: 07/14/17 01:00 Dose: 34.53 mls/hr Cefepime HCl 1 gm/ Sodium (Chloride) 100 mls @ 100 mls/hr IVPB Q12 [facility] PRN Reason: Protocol Last Admin: 07/16/17 21:46 Dose: 100 mls/hr Mupirocin (Bactroban Ointment) 1 applic TOP BID [facility] Last Admin: 07/16/17 17:24 Dose: 1 applic Ondansetron HCl (Zofran Inj) 4 mg IVP Q6H PRN PRN Reason: Nausea/Vomiting Last Admin: 07/17/17 05:26 Dose: 4 mg Potassium Chloride (Potassium Chloride Oral Soln) 20 meq PO BID [facility] Last Admin: 07/16/17 17:27 Dose: 20 meq Saccharomyces Boulardii (Florastor) 250 mg PO BID [facility] Last Admin: 07/16/17 17:33 Dose: 250 mg - Labs Labs: 07/17/17 04:20 07/17/17 04:20 PT 25.7 Seconds (9.8-13.1) H 07/16/17 06:31 INR 2.3 (0.9-1.2) H 07/16/17 06:31 APTT 53.6 Seconds (25.6-37.1) H 07/16/17 06:31 - Constitutional Appears: Well, Non-toxic, No Acute Distress - Head Exam Head Exam: ATRAUMATIC - Neck Exam Neck Exam: Normal Inspection - Respiratory Exam Respiratory Exam: NORMAL BREATHING PATTERN - GI/Abdominal Exam GI & Abdominal Exam: Soft, Tenderness. absent: Rigid, Hernia, Mass - Rectal Exam Rectal Exam: Deferred - Extremities Exam Extremities Exam: Normal Inspection - Back Exam Back Exam: NORMAL INSPECTION. absent: tenderness - Neurological Exam Neurological Exam: Alert, Awake, Oriented x3 - Psychiatric Exam Psychiatric exam: Normal Affect, Normal Mood - Skin Skin Exam: Intact, Normal Color, Warm Assessment and Plan - Assessment and Plan (Free Text) Assessment: 72M s/p exploratory laparotomy with findings of perforated viscous. Small bowel resection with anastomosis POD#9 Plan: Advance diet as tolerated Ok to Transfer to telemetry from surgical standpoint Continue with colace Medical management per primary team Pain management Monitor drain output Encourage ambulation D/w Dr. Worthy <Mook Worthy - Last Filed: 07/18/17 21:07> Objective - Vital Signs/Intake and Output Vital Signs (last 24 hours): Temp Pulse Resp BP Pulse Ox 98.6 F 76 17 110/61 95 07/18/17 16:00 07/18/17 18:00 07/18/17 16:00 07/18/17 18:00 07/18/17 12:00 Intake and Output: 07/18/1718 18:59 06:59 Intake Total 970 Output Total 850 Balance 120 - Medications Medications: Current Medications Acetaminophen (Tylenol 325mg Tab) 650 mg PO Q4 PRN PRN Reason: Pain, moderate (4-7) Diltiazem HCl (Cardizem) 60 mg PO Q8 [facility] Last Admin: 07/18/17 16:28 Dose: 60 mg Docusate Sodium (Colace) 100 mg PO TID [facility] Last Admin: 07/18/17 16:28 Dose: Not Given Furosemide (Lasix) 20 mg IVP DAILY [facility] Last Admin: 07/18/17 08:58 Dose: 20 mg Hydromorphone HCl (Dilaudid) 1 mg IVP Q4 PRN PRN Reason: Pain, severe (8-10) Last Admin: 07/18/17 21:00 Dose: 1 mg Linezolid 600 mg in NS 300 ml (Zyvox 600mg/300ml Ns) 600 mg in 300 mls @ 300 mls/hr IVPB Q12 [facility] PRN Reason: Protocol Last Admin: 07/18/17 09:01 Dose: 300 mls/hr Amiodarone HCl 450 mg/ Sodium (Chloride) 259 mls @ 34.53 mls/hr IVPB .Q7H31M [facility]; 1 MG/MIN PRN Reason: Protocol Last Admin: 07/14/17 01:00 Dose: 34.53 mls/hr Cefepime HCl 1 gm/ Sodium (Chloride) 50 mls @ 50 mls/hr IVPB Q12 [facility] PRN Reason: Protocol Last Admin: 07/18/17 21:02 Dose: 50 mls/hr Mupirocin (Bactroban Ointment) 1 applic TOP BID [facility] Last Admin: 07/18/17 16:27 Dose: 1 applic Octreotide Acetate (Sandostatin) 300 mcg SC Q8 [facility] Last Admin: 07/18/17 16:31 Dose: 300 mcg Ondansetron HCl (Zofran Inj) 4 mg IVP Q6H PRN PRN Reason: Nausea/Vomiting Last Admin: 07/17/17 05:26 Dose: 4 mg Potassium Chloride (Potassium Chloride Oral Soln) 20 meq PO BID [facility] Last Admin: 07/18/17 16:30 Dose: 20 meq Saccharomyces Boulardii (Florastor) 250 mg PO BID [facility] Last Admin: 07/18/17 16:30 Dose: 250 mg - Labs Labs: 07/18/17 08:04 07/18/17 08:04 PT 25.7 Seconds (9.8-13.1) H 07/16/17 06:31 INR 2.3 (0.9-1.2) H 07/16/17 06:31 APTT 53.6 Seconds (25.6-37.1) H 07/16/17 06:31 Attending/Attestation - Attestation I have personally seen and examined this patient.: Yes I have fully participated in the care of the patient.: Yes I have reviewed all pertinent clinical information, including history, physical exam and plan: Yes Notes (Text): Pt was seen and examined at bedside Agree with above note and assessment Pt is refusing CT scan of A/P Start octreotide for possible drainage from pre existing Biloma Send drain fluid for amylase Wound care and packing OOB to walk Plan d.w pt in detail Risk and benefit explained in detail.
--- NOTE | 2017-07-17 08:49 | CP.CCUPN ---
CCU Subjective - Physician Review Subjective (Free Text): 07/17/17 The patient was Seen/interviewed and examined by me at the bedside during ICU round, Medical records reviewed and Management issues were discussed and formulated with the house staff. Events reviewed Mr Wolf is 72 year old male with a past medical history of HTN, atrial fibrillation and deep vein thrombosis present to the emergency department complaining of abdominal pain which began x2 hours prior to arrival. Patient admitted with Acute abdomen, free air sec to perforated viscous 07/08, Underwent Jejunal perforation repair, small bowel resection and primary anastomosis, enterolysis, Irrisept irrigation, TEP block, RIJ TLC and placement, NGT placement This morning he feels well, he is Alert and oriented Comfortable, in no Distress In A fib, HR controlled, off amiodoron infusion and now on Cardizem 60 mg PO Q8 No Vasopressors Afebrile, A_Fib on the monitor Evaluated by wound care Scrotum elevated Last 24H I&O 1753/1260 Folly cath removed, Passed void check Pain well controlled with IV Dilauded Will attempt PIV and remove the central line Continues to report of Abd tenderness and scheduled for Abd/Pelvis CT scan today Small + Flatus, ordered Lactulose x1 CCU Objective - Vital Signs / Intake & Output Vital Signs (Last 4 hours): Vital Signs Temp Pulse Resp BP Pulse Ox 07/17/17 08:00 98.2 F 102 H 16 136/48 L 98 07/17/17 06:00 94 H 25 H 120/72 100 Intake and Output (Last 8hrs): Intake & Output 07/16/17 07/17/17 07/17/17 22:59 06:59 14:59 Intake Total 1370 383 Output Total 850 410 Balance 520 -27 Weight 172 lb Intake: IV 10 18 Intake, Piggyback 900 100 Oral 460 265 Output: Drainage 60 Left 20 Right 40 Urine 850 350 Urethral (Russell) 700 350 Urine, Voided 150 Other: # Bowel Movements 1 - Physical Exam Head: Positive for: Normocephalic Pupils: Positive for: PERRL Conjunctiva: Negative for: Icteric Mouth: Positive for: Moist Mucous Membranes Neck: Negative for: JVD Respiratory/Chest: Positive for: Clear to Auscultation, Decreased Breath Sounds. Negative for: Accessory Muscle Use, Wheezes, Rhonchi Cardiovascular: Positive for: Irregular Rhythm, Tachycardic. Negative for: Murmurs, Rub Abdomen: Positive for: Tenderness. Negative for: Distention, Normal Bowel Sounds, Rebound, Guarding, Mass/Organomegaly Lower Extremity: Positive for: NORMAL PULSES. Negative for: CALF TENDERNESS, Cyanosis Neurological: Positive for: Motor Func Grossly Intact, Normal Sensory Function Skin: Positive for: Warm, Dry. Negative for: Rashes Psychiatric: Positive for: Alert, Oriented x 3 - Medications Active Medications: Active Medications Generic Name Dose Route Start Last Admin Trade Name Freq PRN Reason Stop Dose Admin Acetaminophen 650 mg 07/13/17 07:49 Tylenol 325mg Tab PO Q4 PRN Pain, moderate (4-7) Diltiazem HCl 60 mg 07/15/17 17:00 07/17/17 00:00 Cardizem PO 60 mg Q8 [facility] Administration Docusate Sodium 100 mg 07/14/17 09:43 07/16/17 17:25 Colace PO 100 mg TID [facility] Administration Furosemide 20 mg 07/14/17 09:00 07/16/17 08:49 Lasix IVP 20 mg DAILY [facility] Administration Hydromorphone HCl 1 mg 07/14/17 11:45 07/17/17 03:55 Dilaudid IVP 1 mg Q4 PRN Administration Pain, severe (8-10) Linezolid 600 mg in NS 300 ml 600 mg in 300 mls @ 300 mls/hr 07/13/17 11:00 07/16/17 20:08 Zyvox 600mg/300ml Ns IVPB 300 mls/hr Q12 [facility] Administration Protocol Amiodarone HCl 450 mg/ Sodium 259 mls @ 34.53 mls/hr 07/13/17 15:45 07/14/17 01:00 Chloride IVPB 34.53 mls/hr .Q7H31M [facility] Administration Protocol 1 MG/MIN Cefepime HCl 1 gm/ Sodium 100 mls @ 100 mls/hr 07/15/17 21:00 07/16/17 21:46 Chloride IVPB 100 mls/hr Q12 [facility] Administration Protocol Mupirocin 1 applic 07/09/17 20:15 07/16/17 17:24 Bactroban Ointment TOP 1 applic BID [facility] Administration Ondansetron HCl 4 mg 07/07/17 23:32 07/17/17 05:26 Zofran Inj IVP 4 mg Q6H PRN Administration Nausea/Vomiting Potassium Chloride 20 meq 07/16/17 17:00 07/16/17 17:27 Potassium Chloride Oral Soln PO 20 meq BID [facility] Administration Saccharomyces Boulardii 250 mg 07/13/17 17:00 07/16/17 17:33 Florastor PO 250 mg BID [facility] Administration - Patient Studies Lab Studies: Lab Studies 07/17/17 07/17/17 07/17/17 Range/Units 05:23 04:26 04:20 WBC (4.8-10.8) K/uL RBC (4.40-5.90) Mil/uL Hgb (12.0-18.0) g/dL Hct (35.0-51.0) % MCV (80.0-94.0) fl MCH (27.0-31.0) pg MCHC (33.0-37.0) g/dL RDW (11.5-14.5) % Plt Count (130-400) K/uL Sodium 141 (132-148) mmol/l Potassium 3.2 L (3.6-5.0) MMOL/L Chloride 108 H (98-107) mmol/L Carbon Dioxide 25 (22-30) mmol/L Anion Gap 11 (10-20) BUN 23 H (9-20) mg/dl Creatinine 0.9 (0.8-1.5) mg/dl Est GFR ( Amer) > 60 Est GFR (Non-Af Amer) > 60 POC Glucose (mg/dL) 69 68 (65-110) mg/dL Random Glucose 60 L (75-110) mg/dL Calcium 6.9 L (8.4-10.2) mg/dL Total Bilirubin 0.5 (0.2-1.3) mg/dl AST 23 (17-59) U/L ALT 44 (21-72) U/L Alkaline Phosphatase 40 (38-126) U/L Total Protein 4.3 L (6.3-8.2) G/DL Albumin 1.7 L (3.5-5.0) g/dL Globulin 2.6 (2.2-3.9) gm/dL Albumin/Globulin Ratio 0.7 L (1.0-2.1) Hepatitis A IgM Ab (NEGATIVE) Hep Bs Antigen (NEGATIVE) Hep B Core IgM Ab (NEGATIVE) Hepatitis C Antibody (NEGATIVE) HIV 1&2 Antibody Screen (NEGATIVE) 07/17/17 07/16/17 07/16/17 Range/Units 04:20 21:53 17:16 WBC 2.5 L (4.8-10.8) K/uL RBC 2.80 L (4.40-5.90) Mil/uL Hgb 9.3 L (12.0-18.0) g/dL Hct 27.6 L (35.0-51.0) % MCV 98.4 H (80.0-94.0) fl MCH 33.1 H (27.0-31.0) pg MCHC 33.6 (33.0-37.0) g/dL RDW 16.4 H (11.5-14.5) % Plt Count 76 L D (130-400) K/uL Sodium (132-148) mmol/l Potassium (3.6-5.0) MMOL/L Chloride (98-107) mmol/L Carbon Dioxide (22-30) mmol/L Anion Gap (10-20) BUN (9-20) mg/dl Creatinine (0.8-1.5) mg/dl Est GFR ( Amer) Est GFR (Non-Af Amer) POC Glucose (mg/dL) 80 95 (65-110) mg/dL Random Glucose (75-110) mg/dL Calcium (8.4-10.2) mg/dL Total Bilirubin (0.2-1.3) mg/dl AST (17-59) U/L ALT (21-72) U/L Alkaline Phosphatase (38-126) U/L Total Protein (6.3-8.2) G/DL Albumin (3.5-5.0) g/dL Globulin (2.2-3.9) gm/dL Albumin/Globulin Ratio (1.0-2.1) Hepatitis A IgM Ab (NEGATIVE) Hep Bs Antigen (NEGATIVE) Hep B Core IgM Ab (NEGATIVE) Hepatitis C Antibody (NEGATIVE) HIV 1&2 Antibody Screen (NEGATIVE) 07/16/17 07/16/17 07/16/17 Range/Units 11:03 05:30 05:30 WBC (4.8-10.8) K/uL RBC (4.40-5.90) Mil/uL Hgb (12.0-18.0) g/dL Hct (35.0-51.0) % MCV (80.0-94.0) fl MCH (27.0-31.0) pg MCHC (33.0-37.0) g/dL RDW (11.5-14.5) % Plt Count (130-400) K/uL Sodium (132-148) mmol/l Potassium (3.6-5.0) MMOL/L Chloride (98-107) mmol/L Carbon Dioxide (22-30) mmol/L Anion Gap (10-20) BUN (9-20) mg/dl Creatinine (0.8-1.5) mg/dl Est GFR ( Amer) Est GFR (Non-Af Amer) POC Glucose (mg/dL) 91 (65-110) mg/dL Random Glucose (75-110) mg/dL Calcium (8.4-10.2) mg/dL Total Bilirubin (0.2-1.3) mg/dl AST (17-59) U/L ALT (21-72) U/L Alkaline Phosphatase (38-126) U/L Total Protein (6.3-8.2) G/DL Albumin (3.5-5.0) g/dL Globulin (2.2-3.9) gm/dL Albumin/Globulin Ratio (1.0-2.1) Hepatitis A IgM Ab Negative (NEGATIVE) Hep Bs Antigen Reactive (NEGATIVE) Hep B Core IgM Ab Negative (NEGATIVE) Hepatitis C Antibody Negative (NEGATIVE) HIV 1&2 Antibody Screen Negative (NEGATIVE) Laboratory Results - last 24 hr 07/16/17 07/16/17 07/16/17 05:30 05:30 11:03 WBC RBC Hgb Hct MCV MCH MCHC RDW Plt Count Sodium Potassium Chloride Carbon Dioxide Anion Gap BUN Creatinine Est GFR ( Amer) Est GFR (Non-Af Amer) POC Glucose (mg/dL) 91 Random Glucose Calcium Total Bilirubin AST ALT Alkaline Phosphatase Total Protein Albumin Globulin Albumin/Globulin Ratio Hepatitis A IgM Ab Negative Hep Bs Antigen Reactive Hep B Core IgM Ab Negative Hepatitis C Antibody Negative HIV 1&2 Antibody Screen Negative 07/16/17 07/16/17 07/17/17 17:16 21:53 04:20 WBC 2.5 L RBC 2.80 L Hgb 9.3 L Hct 27.6 L MCV 98.4 H MCH 33.1 H MCHC 33.6 RDW 16.4 H Plt Count 76 L D Sodium Potassium Chloride Carbon Dioxide Anion Gap BUN Creatinine Est GFR ( Amer) Est GFR (Non-Af Amer) POC Glucose (mg/dL) 95 80 Random Glucose Calcium Total Bilirubin AST ALT Alkaline Phosphatase Total Protein Albumin Globulin Albumin/Globulin Ratio Hepatitis A IgM Ab Hep Bs Antigen Hep B Core IgM Ab Hepatitis C Antibody HIV 1&2 Antibody Screen 07/17/17 07/17/17 07/17/17 04:20 04:26 05:23 WBC RBC Hgb Hct MCV MCH MCHC RDW Plt Count Sodium 141 Potassium 3.2 L Chloride 108 H Carbon Dioxide 25 Anion Gap 11 BUN 23 H Creatinine 0.9 Est GFR ( Amer) > 60 Est GFR (Non-Af Amer) > 60 POC Glucose (mg/dL) 68 69 Random Glucose 60 L Calcium 6.9 L Total Bilirubin 0.5 AST 23 ALT 44 Alkaline Phosphatase 40 Total Protein 4.3 L Albumin 1.7 L Globulin 2.6 Albumin/Globulin Ratio 0.7 L Hepatitis A IgM Ab Hep Bs Antigen Hep B Core IgM Ab Hepatitis C Antibody HIV 1&2 Antibody Screen Fingerstick Blood Sugar Results: 69 Review of Systems - Cardiovascular Cardiovascular: absent: Chest Pain, Chest Pain at Rest, Chest Pain with Activity - Respiratory Respiratory: absent: Cough, Dyspnea, Hemoptysis - Gastrointestinal Gastrointestinal: Abdominal Pain. absent: Melena, Nausea, Vomiting Critical Care Progress Note - Nutrition Nutrition: Nutrition Category Date Time Status Cardiac [Heart Healthy Diet] [DIET] Diets 07/15/17 Lunch Active Assessment/Plan (1) Intestinal perforation Current Visit: Yes Status: Acute Priority: High Comment: S/P Laprotomy, for perforated bowel Clear liquid diet, Advance as tolerate Continues to report of belly tenderness and scheduled for Abd/Pelvis Ct scan today (2) Atrial fibrillation Current Visit: Yes Status: Acute Priority: High Comment: HR controlled OFF amiodoron infusion Continue Cardizem 60 mg PO Q8 No anticoagulants for time being due to thrombocytopenia (3) COPD (chronic obstructive pulmonary disease) Current Visit: Yes Status: Acute (4) Pancytopenia Current Visit: No Status: Acute Comment: neutropenia H/H Stable 9.3/27.6 platelets up trending to 56-->76 No evidance of actie bleed (5) Acute urinary retention Current Visit: No Status: Acute Comment: Russell removed, needed Staraigh cath today 750cc of jeison urine came out (6) Hypokalemia Current Visit: Yes Status: Acute
--- NOTE | 2017-07-17 09:38 | CP.PCM.PN ---
Subjective - Date & Time of Evaluation Date of Evaluation: 07/16/17 Time of Evaluation: 19:45 - Subjective Subjective: Feels weak, tolerating some PO Objective - Vital Signs/Intake and Output Vital Signs (last 24 hours): Temp Pulse Resp BP Pulse Ox 98.2 F 102 H 16 136/48 L 98 07/17/17 08:00 07/17/17 08:00 07/17/17 08:00 07/17/17 08:00 07/17/17 08:00 Intake and Output: 07/17/17 07/17/17 06:59 18:59 Intake Total 753 Output Total 410 Balance 343 - Medications Medications: Current Medications Acetaminophen (Tylenol 325mg Tab) 650 mg PO Q4 PRN PRN Reason: Pain, moderate (4-7) Diltiazem HCl (Cardizem) 60 mg PO Q8 [facility] Last Admin: 07/17/17 00:00 Dose: 60 mg Docusate Sodium (Colace) 100 mg PO TID [facility] Last Admin: 07/16/17 17:25 Dose: 100 mg Furosemide (Lasix) 20 mg IVP DAILY [facility] Last Admin: 07/16/17 08:49 Dose: 20 mg Hydromorphone HCl (Dilaudid) 1 mg IVP Q4 PRN PRN Reason: Pain, severe (8-10) Last Admin: 07/17/17 03:55 Dose: 1 mg Linezolid 600 mg in NS 300 ml (Zyvox 600mg/300ml Ns) 600 mg in 300 mls @ 300 mls/hr IVPB Q12 [facility] PRN Reason: Protocol Last Admin: 07/16/17 20:08 Dose: 300 mls/hr Amiodarone HCl 450 mg/ Sodium (Chloride) 259 mls @ 34.53 mls/hr IVPB .Q7H31M [facility]; 1 MG/MIN PRN Reason: Protocol Last Admin: 07/14/17 01:00 Dose: 34.53 mls/hr Cefepime HCl 1 gm/ Sodium (Chloride) 100 mls @ 100 mls/hr IVPB Q12 [facility] PRN Reason: Protocol Last Admin: 07/16/17 21:46 Dose: 100 mls/hr Mupirocin (Bactroban Ointment) 1 applic TOP BID [facility] Last Admin: 07/16/17 17:24 Dose: 1 applic Ondansetron HCl (Zofran Inj) 4 mg IVP Q6H PRN PRN Reason: Nausea/Vomiting Last Admin: 07/17/17 05:26 Dose: 4 mg Potassium Chloride (Potassium Chloride Oral Soln) 20 meq PO BID [facility] Last Admin: 07/16/17 17:27 Dose: 20 meq Saccharomyces Boulardii (Florastor) 250 mg PO BID [facility] Last Admin: 07/16/17 17:33 Dose: 250 mg - Labs Labs: 07/17/17 04:20 07/17/17 04:20 PT 25.7 Seconds (9.8-13.1) H 07/16/17 06:31 INR 2.3 (0.9-1.2) H 07/16/17 06:31 APTT 53.6 Seconds (25.6-37.1) H 07/16/17 06:31 - Head Exam Head Exam: ATRAUMATIC - Eye Exam Eye Exam: Normal appearance - ENT Exam ENT Exam: Mucous Membranes Dry - Respiratory Exam Respiratory Exam: NORMAL BREATHING PATTERN - Cardiovascular Exam Cardiovascular Exam: +S1, +S2 - GI/Abdominal Exam GI & Abdominal Exam: Normal Bowel Sounds Assessment and Plan (1) Pancytopenia Assessment & Plan: WBC and H/H fairly stable no neutropenia platelets improving no DIC suspect sepsis related Status: Acute
[2017-07-17] MEDS: Cefepime 1 GM in Sodium Chloride 0.9% 100 ML IVPB SCH ×2 (09:58→20:58)
[2017-07-17] MEDS: Saccharomyces Boulardi 250 mg Cap PO SCH ×2 (09:59→16:02)
[2017-07-17] MEDS: Potassium Chloride 20 mEq/15 ml LIQ UD PO SCH ×2 (10:00→16:02)
[2017-07-17] MEDS: LINEZOLID IVPB SCH ×2 (10:00→21:02)
[2017-07-17] MEDS: NS IVPB SCH ×2 (10:00→21:02)
[2017-07-17] MEDS ORDERED: Iohexol 240 (10 ml) PO ONE (11:30)
[2017-07-17] MEDS ORDERED: Iohexol 240 (50 ml) PO ONE (11:53)
--- NOTE | 2017-07-17 12:07 | CP.PCM.PN ---
<Brandon Kauffman - Last Filed: 07/17/17 12:43> Subjective - Date & Time of Evaluation Date of Evaluation: 07/17/17 Time of Evaluation: 10:10 - Subjective Subjective: Stable. Afebrile. Still c/o abd pain, diffuse. +Flatus, small BM. C/O nausea intermittently. more alert and seems in less distress than previous days. Objective - Vital Signs/Intake and Output Vital Signs (last 24 hours): Temp Pulse Resp BP Pulse Ox 98.2 F 101 H 16 125/72 98 07/17/17 08:00 07/17/17 10:01 07/17/17 08:00 07/17/17 10:01 07/17/17 08:00 Intake and Output: 07/17/17 07/17/17 06:59 18:59 Intake Total 753 Output Total 410 Balance 343 - Medications Medications: Current Medications Acetaminophen (Tylenol 325mg Tab) 650 mg PO Q4 PRN PRN Reason: Pain, moderate (4-7) Diltiazem HCl (Cardizem) 60 mg PO Q8 [facility] Last Admin: 07/17/17 10:01 Dose: 60 mg Docusate Sodium (Colace) 100 mg PO TID [facility] Last Admin: 07/17/17 10:02 Dose: 100 mg Furosemide (Lasix) 20 mg IVP DAILY [facility] Last Admin: 07/17/17 09:58 Dose: 20 mg Linezolid 600 mg in NS 300 ml (Zyvox 600mg/300ml Ns) 600 mg in 300 mls @ 300 mls/hr IVPB Q12 [facility] PRN Reason: Protocol Last Admin: 07/17/17 10:00 Dose: 300 mls/hr Amiodarone HCl 450 mg/ Sodium (Chloride) 259 mls @ 34.53 mls/hr IVPB .Q7H31M [facility]; 1 MG/MIN PRN Reason: Protocol Last Admin: 07/14/17 01:00 Dose: 34.53 mls/hr Cefepime HCl 1 gm/ Sodium (Chloride) 100 mls @ 100 mls/hr IVPB Q12 [facility] PRN Reason: Protocol Last Admin: 07/17/17 09:58 Dose: 100 mls/hr Mupirocin (Bactroban Ointment) 1 applic TOP BID [facility] Last Admin: 07/17/17 10:02 Dose: 1 applic Ondansetron HCl (Zofran Inj) 4 mg IVP Q6H PRN PRN Reason: Nausea/Vomiting Last Admin: 07/17/17 05:26 Dose: 4 mg Potassium Chloride (Potassium Chloride Oral Soln) 20 meq PO BID [facility] Last Admin: 07/17/17 10:00 Dose: 20 meq Saccharomyces Boulardii (Florastor) 250 mg PO BID [facility] Last Admin: 07/17/17 09:59 Dose: 250 mg - Labs Labs: 07/17/17 04:20 07/17/17 04:20 PT 25.7 Seconds (9.8-13.1) H 07/16/17 06:31 INR 2.3 (0.9-1.2) H 07/16/17 06:31 APTT 53.6 Seconds (25.6-37.1) H 07/16/17 06:31 - Constitutional Appears: Non-toxic, Chronically Ill - Respiratory Exam Respiratory Exam: NORMAL BREATHING PATTERN. absent: Decreased Breath Sounds, Rales, Respiratory Distress - Cardiovascular Exam Cardiovascular Exam: +S1, +S2. absent: Gallop - GI/Abdominal Exam GI & Abdominal Exam: Distended, Tenderness, Hypoactive Bowel Sounds. absent: Rigid - Extremities Exam Extremities Exam: Pedal Edema (+1. ). absent: Normal Inspection Additional comments: UE edema B/L - Neurological Exam Neurological Exam: Alert, Awake, Oriented x3 - Psychiatric Exam Psychiatric exam: Normal Affect, Normal Mood - Skin Skin Exam: Pallor, Warm Assessment and Plan - Assessment and Plan (Free Text) Assessment: Sepsis improving. C/W IV abx as per ID 7 more days Hep B ag positive: F/W CT abd/pelvis. Consider US Abd if needed S/P vizcous perforation. Persistent abd distention. F/U repeat CT abd Tolerating PO. + Flatus Pancitopenia: Platelets improving after DCing Vanco Constipation: Lactulose once <Bronson Castaneda - Last Filed: 07/17/17 14:56> Objective - Vital Signs/Intake and Output Vital Signs (last 24 hours): Temp Pulse Resp BP Pulse Ox 98.2 F 90 16 125/98 H 98 07/17/17 12:00 07/17/17 14:00 07/17/17 14:00 07/17/17 14:00 07/17/17 14:00 Intake and Output: 07/17/17 07/17/17 06:59 18:59 Intake Total 753 400 Output Total 410 Balance 343 400 - Medications Medications: Current Medications Acetaminophen (Tylenol 325mg Tab) 650 mg PO Q4 PRN PRN Reason: Pain, moderate (4-7) Diltiazem HCl (Cardizem) 60 mg PO Q8 [facility] Last Admin: 07/17/17 10:01 Dose: 60 mg Docusate Sodium (Colace) 100 mg PO TID [facility] Last Admin: 07/17/17 10:02 Dose: 100 mg Furosemide (Lasix) 20 mg IVP DAILY [facility] Last Admin: 07/17/17 09:58 Dose: 20 mg Hydromorphone HCl (Dilaudid) 1 mg IVP Q4 PRN PRN Reason: Pain, severe (8-10) Last Admin: 07/17/17 12:41 Dose: 1 mg Linezolid 600 mg in NS 300 ml (Zyvox 600mg/300ml Ns) 600 mg in 300 mls @ 300 mls/hr IVPB Q12 [facility] PRN Reason: Protocol Last Admin: 07/17/17 10:00 Dose: 300 mls/hr Amiodarone HCl 450 mg/ Sodium (Chloride) 259 mls @ 34.53 mls/hr IVPB .Q7H31M [facility]; 1 MG/MIN PRN Reason: Protocol Last Admin: 07/14/17 01:00 Dose: 34.53 mls/hr Cefepime HCl 1 gm/ Sodium (Chloride) 100 mls @ 100 mls/hr IVPB Q12 [facility] PRN Reason: Protocol Last Admin: 07/17/17 09:58 Dose: 100 mls/hr Mupirocin (Bactroban Ointment) 1 applic TOP BID [facility] Last Admin: 07/17/17 10:02 Dose: 1 applic Ondansetron HCl (Zofran Inj) 4 mg IVP Q6H PRN PRN Reason: Nausea/Vomiting Last Admin: 07/17/17 05:26 Dose: 4 mg Potassium Chloride (Potassium Chloride Oral Soln) 20 meq PO BID [facility] Last Admin: 07/17/17 10:00 Dose: 20 meq Saccharomyces Boulardii (Florastor) 250 mg PO BID [facility] Last Admin: 07/17/17 09:59 Dose: 250 mg - Labs Labs: 07/17/17 04:20 07/17/17 04:20 PT 25.7 Seconds (9.8-13.1) H 07/16/17 06:31 INR 2.3 (0.9-1.2) H 07/16/17 06:31 APTT 53.6 Seconds (25.6-37.1) H 07/16/17 06:31 Assessment and Plan (1) Abdominal pain Status: Acute (2) COPD (chronic obstructive pulmonary disease) Status: Acute (3) Essential (primary) hypertension Status: Acute (4) Hx of atrial fibrillation, no current medication Status: Acute (5) Intestinal perforation Status: Acute (6) Perforated abdominal viscus Status: Acute (7) Atrial fibrillation Status: Acute (8) Anemia Status: Acute - Assessment and Plan (Free Text) Plan: Saw and assessed pt with resident. Agree with above plan
--- NOTE | 2017-07-17 12:21 | CP.PCM.PN ---
Subjective - Date & Time of Evaluation Date of Evaluation: 07/17/17 Time of Evaluation: 08:00 - Subjective Subjective: improving s/p septic shock secondary to perforated =viscius has hep B - possible cirrhosis ? consider d/c IV antibiotics at 7 days Objective - Vital Signs/Intake and Output Vital Signs (last 24 hours): Temp Pulse Resp BP Pulse Ox 98.2 F 101 H 16 125/72 98 07/17/17 08:00 07/17/17 10:01 07/17/17 08:00 07/17/17 10:01 07/17/17 08:00 Intake and Output: 07/17/17 07/17/17 06:59 18:59 Intake Total 753 Output Total 410 Balance 343 - Medications Medications: Current Medications Acetaminophen (Tylenol 325mg Tab) 650 mg PO Q4 PRN PRN Reason: Pain, moderate (4-7) Diltiazem HCl (Cardizem) 60 mg PO Q8 [facility] Last Admin: 07/17/17 10:01 Dose: 60 mg Docusate Sodium (Colace) 100 mg PO TID [facility] Last Admin: 07/17/17 10:02 Dose: 100 mg Furosemide (Lasix) 20 mg IVP DAILY [facility] Last Admin: 07/17/17 09:58 Dose: 20 mg Linezolid 600 mg in NS 300 ml (Zyvox 600mg/300ml Ns) 600 mg in 300 mls @ 300 mls/hr IVPB Q12 [facility] PRN Reason: Protocol Last Admin: 07/17/17 10:00 Dose: 300 mls/hr Amiodarone HCl 450 mg/ Sodium (Chloride) 259 mls @ 34.53 mls/hr IVPB .Q7H31M [facility]; 1 MG/MIN PRN Reason: Protocol Last Admin: 07/14/17 01:00 Dose: 34.53 mls/hr Cefepime HCl 1 gm/ Sodium (Chloride) 100 mls @ 100 mls/hr IVPB Q12 [facility] PRN Reason: Protocol Last Admin: 07/17/17 09:58 Dose: 100 mls/hr Mupirocin (Bactroban Ointment) 1 applic TOP BID [facility] Last Admin: 07/17/17 10:02 Dose: 1 applic Ondansetron HCl (Zofran Inj) 4 mg IVP Q6H PRN PRN Reason: Nausea/Vomiting Last Admin: 07/17/17 05:26 Dose: 4 mg Potassium Chloride (Potassium Chloride Oral Soln) 20 meq PO BID [facility] Last Admin: 07/17/17 10:00 Dose: 20 meq Saccharomyces Boulardii (Florastor) 250 mg PO BID [facility] Last Admin: 07/17/17 09:59 Dose: 250 mg - Labs Labs: 07/17/17 04:20 07/17/17 04:20 PT 25.7 Seconds (9.8-13.1) H 07/16/17 06:31 INR 2.3 (0.9-1.2) H 07/16/17 06:31 APTT 53.6 Seconds (25.6-37.1) H 07/16/17 06:31 Assessment and Plan (1) Abdominal pain Status: Acute (2) COPD (chronic obstructive pulmonary disease) Status: Acute (3) Essential (primary) hypertension Status: Acute (4) Hx of atrial fibrillation, no current medication Status: Acute (5) Intestinal perforation Status: Acute (6) Perforated abdominal viscus Status: Acute (7) Sepsis Status: Acute
[2017-07-17] MEDS ORDERED: HYDROmorphone 0.5 mg/0.5 ml ISec ONE (12:32)
[2017-07-17] MEDS ORDERED: Iohexol 300 100 ML IJ ONE (14:59)
[2017-07-18 08:13] LABS: BASO % 0.3 % (0.0-2.0); EOS # 0.2 K/uL (0.0-0.7); EOS % 6.5 % (0.0-4.0); HEMOGLOBIN 9.1 g/dL (12.0-18.0); LYMPH # 0.5 K/uL (1.0-4.3); LYMPH % 23.1 % (20.0-40.0); MEAN CELL VOLUME 99.1 fl (80.0-94.0); MEAN CORPUSCULAR HEMOGLOBIN 32.7 pg (27.0-31.0); MEAN PLATELET VOLUME 8.1 fl (7.2-11.7); MONO # 0.1 K/uL (0.0-0.8); MONO % 5.2 % (0.0-10.0); NEUT # 1.5 K/uL (1.8-7.0); NEUT % 64.9 % (50.0-75.0); NRBC % 0.2 % (0.0-0.0); RBC 2.79 Mil/uL (4.40-5.90); RED CELL DISTRIBUTION WIDTH 16.3 % (11.5-14.5); WHITE BLOOD COUNT 2.3 K/uL (4.8-10.8)
--- NOTE | 2017-07-18 08:27 | CP.PCM.PN ---
<[place],Mariumbrielleaarti - Last Filed: 07/18/17 08:25> Subjective - Date & Time of Evaluation Date of Evaluation: 07/18/17 Time of Evaluation: 08:25 - Subjective Subjective: Surgery Progress Note: Dr. Worthy Patient seen and examined. Erythema noted along surgical incision site. Continues to report of belly tenderness. Continues to deny CT scan today even after proper explanation. Denies of F/N/V/C/SOB/CP. Serous with hint of bile color drainage noted from the right RAMIN approx 25 cc. No new complains. Objective - Vital Signs/Intake and Output Vital Signs (last 24 hours): Temp Pulse Resp BP Pulse Ox 98.1 F 61 15 102/68 95 07/18/17 04:00 07/18/17 08:00 07/18/17 06:00 07/18/17 08:00 07/18/17 06:00 Intake and Output: 07/18/17 07/18/17 06:59 18:59 Intake Total 500 Output Total 330 Balance 170 - Medications Medications: Current Medications Acetaminophen (Tylenol 325mg Tab) 650 mg PO Q4 PRN PRN Reason: Pain, moderate (4-7) Diltiazem HCl (Cardizem) 60 mg PO Q8 [facility] Last Admin: 07/18/17 01:57 Dose: 60 mg Docusate Sodium (Colace) 100 mg PO TID [facility] Last Admin: 07/17/17 19:02 Dose: Not Given Furosemide (Lasix) 20 mg IVP DAILY [facility] Last Admin: 07/17/17 09:58 Dose: 20 mg Hydromorphone HCl (Dilaudid) 1 mg IVP Q4 PRN PRN Reason: Pain, severe (8-10) Linezolid 600 mg in NS 300 ml (Zyvox 600mg/300ml Ns) 600 mg in 300 mls @ 300 mls/hr IVPB Q12 [facility] PRN Reason: Protocol Last Admin: 07/17/17 21:02 Dose: 300 mls/hr Amiodarone HCl 450 mg/ Sodium (Chloride) 259 mls @ 34.53 mls/hr IVPB .Q7H31M [facility]; 1 MG/MIN PRN Reason: Protocol Last Admin: 07/14/17 01:00 Dose: 34.53 mls/hr Cefepime HCl 1 gm/ Sodium (Chloride) 100 mls @ 100 mls/hr IVPB Q12 [facility] PRN Reason: Protocol Last Admin: 07/17/17 20:58 Dose: 100 mls/hr Mupirocin (Bactroban Ointment) 1 applic TOP BID [facility] Last Admin: 07/17/17 16:01 Dose: 1 applic Octreotide Acetate (Sandostatin) 300 mcg SC Q8 [facility] Last Admin: 07/18/17 02:08 Dose: 300 mcg Ondansetron HCl (Zofran Inj) 4 mg IVP Q6H PRN PRN Reason: Nausea/Vomiting Last Admin: 07/17/17 05:26 Dose: 4 mg Potassium Chloride (Potassium Chloride Oral Soln) 20 meq PO BID [facility] Last Admin: 07/17/17 16:02 Dose: 20 meq Saccharomyces Boulardii (Florastor) 250 mg PO BID [facility] Last Admin: 07/17/17 16:02 Dose: 250 mg - Labs Labs: 07/17/17 04:20 07/17/17 04:20 PT 25.7 Seconds (9.8-13.1) H 07/16/17 06:31 INR 2.3 (0.9-1.2) H 07/16/17 06:31 APTT 53.6 Seconds (25.6-37.1) H 07/16/17 06:31 - Constitutional Appears: Well, Non-toxic, No Acute Distress - Head Exam Head Exam: ATRAUMATIC - Eye Exam Eye Exam: Normal appearance - ENT Exam ENT Exam: Normal Exam - Neck Exam Neck Exam: Full ROM, Normal Inspection - Respiratory Exam Respiratory Exam: NORMAL BREATHING PATTERN - GI/Abdominal Exam GI & Abdominal Exam: Soft. absent: Rigid, Tenderness, Hernia, Mass - Rectal Exam Rectal Exam: Deferred - Extremities Exam Extremities Exam: Normal Inspection - Back Exam Back Exam: NORMAL INSPECTION. absent: tenderness - Neurological Exam Neurological Exam: Alert, Awake, Oriented x3 - Psychiatric Exam Psychiatric exam: Normal Affect, Normal Mood - Skin Skin Exam: Intact, Normal Color, Warm Assessment and Plan - Assessment and Plan (Free Text) Assessment: 72M s/p exploratory laparotomy with findings of perforated viscous. Small bowel resection with anastomosis POD#10 Plan: CT - patient denies the scan Advance diet as tolerated Ok to Transfer to telemetry from surgical standpoint Continue with colace Medical management per primary team Pain management Monitor drain output - 25 cc on right overnight and 30 cc on left f/u cultures Encourage ambulation D/w Dr. Worthy <Mook Worthy - Last Filed: 07/18/17 21:21> Objective - Vital Signs/Intake and Output Vital Signs (last 24 hours): Temp Pulse Resp BP Pulse Ox 98.6 F 76 17 110/61 95 07/18/17 16:00 07/18/17 18:00 07/18/17 16:00 07/18/17 18:00 07/18/17 12:00 Intake and Output: 07/18/17 07/19/17 18:59 06:59 Intake Total 970 Output Total 850 Balance 120 - Medications Medications: Current Medications Acetaminophen (Tylenol 325mg Tab) 650 mg PO Q4 PRN PRN Reason: Pain, moderate (4-7) Diltiazem HCl (Cardizem) 60 mg PO Q8 [facility] Last Admin: 07/18/17 16:28 Dose: 60 mg Docusate Sodium (Colace) 100 mg PO TID [facility] Last Admin: 07/18/17 16:28 Dose: Not Given Furosemide (Lasix) 20 mg IVP DAILY [facility] Last Admin: 07/18/17 08:58 Dose: 20 mg Hydromorphone HCl (Dilaudid) 1 mg IVP Q4 PRN PRN Reason: Pain, severe (8-10) Last Admin: 07/18/17 21:00 Dose: 1 mg Linezolid 600 mg in NS 300 ml (Zyvox 600mg/300ml Ns) 600 mg in 300 mls @ 300 mls/hr IVPB Q12 [facility] PRN Reason: Protocol Last Admin: 07/18/17 09:01 Dose: 300 mls/hr Amiodarone HCl 450 mg/ Sodium (Chloride) 259 mls @ 34.53 mls/hr IVPB .Q7H31M [facility]; 1 MG/MIN PRN Reason: Protocol Last Admin: 07/14/17 01:00 Dose: 34.53 mls/hr Cefepime HCl 1 gm/ Sodium (Chloride) 50 mls @ 50 mls/hr IVPB Q12 [facility] PRN Reason: Protocol Last Admin: 07/18/17 21:02 Dose: 50 mls/hr Mupirocin (Bactroban Ointment) 1 applic TOP BID [facility] Last Admin: 07/18/17 16:27 Dose: 1 applic Octreotide Acetate (Sandostatin) 300 mcg SC Q8 [facility] Last Admin: 07/18/17 16:31 Dose: 300 mcg Ondansetron HCl (Zofran Inj) 4 mg IVP Q6H PRN PRN Reason: Nausea/Vomiting Last Admin: 07/17/17 05:26 Dose: 4 mg Potassium Chloride (Potassium Chloride Oral Soln) 20 meq PO BID [facility] Last Admin: 07/18/17 16:30 Dose: 20 meq Saccharomyces Boulardii (Florastor) 250 mg PO BID [facility] Last Admin: 07/18/17 16:30 Dose: 250 mg - Labs Labs: 07/18/17 08:04 07/18/17 08:04 PT 25.7 Seconds (9.8-13.1) H 07/16/17 06:31 INR 2.3 (0.9-1.2) H 07/16/17 06:31 APTT 53.6 Seconds (25.6-37.1) H 07/16/17 06:31 Attending/Attestation - Attestation I have personally seen and examined this patient.: Yes I have fully participated in the care of the patient.: Yes I have reviewed all pertinent clinical information, including history, physical exam and plan: Yes Notes (Text): Pt was seen and examined at bedside Drain output has improved c.w octreotide DC plan to floor and TCU OOB to walk Plan d.w pt and primaryt team in detail
[2017-07-18 08:36] LABS: BLOOD UREA NITROGEN 26 mg/dl (9-20); GFR AFRICAN-AMERICAN > 60; GFR NON-AFRICAN AMERICAN > 60
[2017-07-18] MEDS: Saccharomyces Boulardi 250 mg Cap PO SCH ×2 (08:58→16:30)
[2017-07-18] MEDS: Cefepime 1 GM in Sodium Chloride 0.9% 100 ML IVPB SCH (08:59)
[2017-07-18] MEDS: Potassium Chloride 20 mEq/15 ml LIQ UD PO SCH ×2 (09:00→16:30)
[2017-07-18] MEDS: NS IVPB SCH ×2 (09:01→22:13)
[2017-07-18] MEDS: LINEZOLID IVPB SCH ×2 (09:01→22:13)
--- NOTE | 2017-07-18 09:46 | CP.PCM.PN ---
<Brandon Kauffman - Last Filed: 07/18/17 11:06> Subjective - Date & Time of Evaluation Date of Evaluation: 07/18/17 Time of Evaluation: 10:45 - Subjective Subjective: Seen at bedside in not acute distress. Still c/o abd pain. Refused CT abd, PT and has been refusing nursing care. He states he refused CT because of "pain". Denies vomiting, nausea. Had 2 more BM Yesterday. Tolerating PO. Objective - Vital Signs/Intake and Output Vital Signs (last 24 hours): Temp Pulse Resp BP Pulse Ox 98.1 F 86 15 112/68 95 07/18/17 04:00 07/18/17 08:57 07/18/17 06:00 07/18/17 08:58 07/18/17 06:00 Intake and Output: 07/18/17 07/18/17 06:59 18:59 Intake Total 500 Output Total 330 Balance 170 - Medications Medications: Current Medications Acetaminophen (Tylenol 325mg Tab) 650 mg PO Q4 PRN PRN Reason: Pain, moderate (4-7) Diltiazem HCl (Cardizem) 60 mg PO Q8 [facility] Last Admin: 07/18/17 08:57 Dose: 60 mg Docusate Sodium (Colace) 100 mg PO TID [facility] Last Admin: 07/18/17 08:57 Dose: Not Given Furosemide (Lasix) 20 mg IVP DAILY [facility] Last Admin: 07/18/17 08:58 Dose: 20 mg Hydromorphone HCl (Dilaudid) 1 mg IVP Q4 PRN PRN Reason: Pain, severe (8-10) Linezolid 600 mg in NS 300 ml (Zyvox 600mg/300ml Ns) 600 mg in 300 mls @ 300 mls/hr IVPB Q12 [facility] PRN Reason: Protocol Last Admin: 07/18/17 09:01 Dose: 300 mls/hr Amiodarone HCl 450 mg/ Sodium (Chloride) 259 mls @ 34.53 mls/hr IVPB .Q7H31M [facility]; 1 MG/MIN PRN Reason: Protocol Last Admin: 07/14/17 01:00 Dose: 34.53 mls/hr Cefepime HCl 1 gm/ Sodium (Chloride) 50 mls @ 50 mls/hr IVPB Q12 [facility] PRN Reason: Protocol Mupirocin (Bactroban Ointment) 1 applic TOP BID [facility] Last Admin: 07/18/17 08:56 Dose: 1 applic Octreotide Acetate (Sandostatin) 300 mcg SC Q8 [facility] Last Admin: 07/18/17 02:08 Dose: 300 mcg Ondansetron HCl (Zofran Inj) 4 mg IVP Q6H PRN PRN Reason: Nausea/Vomiting Last Admin: 07/17/17 05:26 Dose: 4 mg Potassium Chloride (Potassium Chloride Oral Soln) 20 meq PO BID [facility] Last Admin: 07/18/17 09:00 Dose: 20 meq Saccharomyces Boulardii (Florastor) 250 mg PO BID [facility] Last Admin: 07/18/17 08:58 Dose: 250 mg - Labs Labs: 07/18/17 08:04 07/18/17 08:04 PT 25.7 Seconds (9.8-13.1) H 07/16/17 06:31 INR 2.3 (0.9-1.2) H 07/16/17 06:31 APTT 53.6 Seconds (25.6-37.1) H 07/16/17 06:31 - Constitutional Appears: No Acute Distress, Chronically Ill - Eye Exam Eye Exam: PERRL - ENT Exam ENT Exam: Mucous Membranes Moist - Respiratory Exam Respiratory Exam: NORMAL BREATHING PATTERN. absent: Decreased Breath Sounds, Respiratory Distress - Cardiovascular Exam Cardiovascular Exam: REGULAR RHYTHM, +S1, +S2. absent: Gallop - GI/Abdominal Exam GI & Abdominal Exam: Distended (Mild), Guarding, Tenderness (Diffuse), Hypoactive Bowel Sounds. absent: Rebound - Extremities Exam Extremities Exam: Normal Capillary Refill, Pedal Edema. absent: Calf Tenderness , Joint Swelling - Neurological Exam Neurological Exam: Alert, Awake, Oriented x3 - Skin Skin Exam: Warm Assessment and Plan - Assessment and Plan (Free Text) Assessment: S/P perforated viscus. Still c/o abd pain Refused CT abd yesterday for better eval of intrabdominal cavity Surgery on board. No further interventions at this time scheduled Patient is tolerating PO and is passing gas and +BM Anam drains in place Afebrile Pancitopenia slightly improved C/W IV abx as per ID Patient could be transferred out of ICU if cleared by Sx I explained to patient the need for abd imaging but he refuses Patient is Hep B + and would benefit form liver US but this would be more painful to him than CT he is refusing. <Bronson Castaneda - Last Filed: 07/22/17 21:31> Objective - Vital Signs/Intake and Output Vital Signs (last 24 hours): Temp Pulse Resp BP Pulse Ox 97.8 F 91 H 18 111/60 100 07/22/17 16:00 07/22/17 18:00 07/22/17 18:00 07/22/17 18:00 07/22/17 18:00 Intake and Output: 07/22/17 07/23/17 18:59 06:59 Intake Total 940 Output Total 1165 Balance -225 - Medications Medications: Current Medications Acetaminophen (Tylenol 325mg Tab) 650 mg PO Q4 PRN PRN Reason: Pain, moderate (4-7) Diltiazem HCl (Cardizem) 60 mg PO Q8 [facility] Last Admin: 07/22/17 16:01 Dose: Not Given Furosemide (Lasix) 20 mg IVP DAILY [facility] Last Admin: 07/22/17 09:03 Dose: 20 mg Amiodarone HCl 450 mg/ Sodium (Chloride) 259 mls @ 34.53 mls/hr IVPB .Q7H31M [facility]; 1 MG/MIN PRN Reason: Protocol Last Admin: 07/14/17 01:00 Dose: 34.53 mls/hr Meropenem 1 gm/ Sodium (Chloride) 100 mls @ 100 mls/hr IVPB Q8 [facility] PRN Reason: Protocol Last Admin: 07/22/17 16:08 Dose: 100 mls/hr Micafungin Sodium 100 mg/ (Sodium Chloride) 100 mls @ 100 mls/hr IVPB DAILY [facility] PRN Reason: Protocol Last Admin: 07/22/17 14:48 Dose: 100 mls/hr Potassium Chloride/Dextrose/Sod Cl (Potassium Chl 20 Meq In D5-1/2ns) 1,000 mls @ 100 mls/hr IV .Q10H [facility] Stop: 07/23/17 06:14 Last Admin: 07/22/17 21:04 Dose: 100 mls/hr Morphine Sulfate (Morphine) 6 mg IVP Q4 PRN PRN Reason: Pain, severe (8-10) Last Admin: 07/22/17 21:03 Dose: 6 mg Mupirocin (Bactroban Ointment) 1 applic TOP BID [facility] Last Admin: 07/22/17 16:09 Dose: 1 applic Octreotide Acetate (Sandostatin) 300 mcg SC Q8@0500,1300,2100 [facility] Last Admin: 07/22/17 21:03 Dose: 300 mcg Ondansetron HCl (Zofran Inj) 4 mg IVP Q6H PRN PRN Reason: Nausea/Vomiting Last Admin: 07/17/17 05:26 Dose: 4 mg Potassium Chloride (Potassium Chloride Oral Soln) 20 meq PO BID [facility] Last Admin: 07/22/17 16:01 Dose: Not Given Saccharomyces Boulardii (Florastor) 250 mg PO BID [facility] Last Admin: 07/22/17 16:01 Dose: Not Given - Labs Labs: 07/22/17 05:20 07/22/17 05:20 PT 15.9 Seconds (9.8-13.1) H 07/22/17 05:20 INR 1.4 (0.9-1.2) H 07/22/17 05:20 APTT 39.1 Seconds (25.6-37.1) H 07/22/17 05:20 Assessment and Plan (1) Abdominal pain Status: Acute (2) COPD (chronic obstructive pulmonary disease) Status: Acute (3) Essential (primary) hypertension Status: Acute (4) Hx of atrial fibrillation, no current medication Status: Acute (5) Intestinal perforation Status: Acute (6) Perforated abdominal viscus Status: Acute (7) Atrial fibrillation Status: Acute (8) Anemia Status: Acute (9) Thrombocytopenia Status: Acute - Assessment and Plan (Free Text) Plan: I was present during evaluation and discussed with Dr Jamari shine plans of care and tx Bronson Castaneda M.D.
[2017-07-18] MEDS: HYDROmorphone 0.5 mg/0.5 ml ISec IVP PRN ×3 (10:31→21:00)
--- NOTE | 2017-07-18 19:03 | CP.PCM.PN ---
Subjective - Date & Time of Evaluation Date of Evaluation: 07/17/17 Time of Evaluation: 09:38 - Subjective Subjective: Feels weak Objective - Vital Signs/Intake and Output Vital Signs (last 24 hours): Temp Pulse Resp BP Pulse Ox 98.6 F 76 17 110/61 95 07/18/17 16:00 07/18/17 18:00 07/18/17 16:00 07/18/17 18:00 07/18/17 12:00 Intake and Output: 07/18/17 07/19/17 18:59 06:59 Intake Total 970 Output Total 850 Balance 120 - Medications Medications: Current Medications Acetaminophen (Tylenol 325mg Tab) 650 mg PO Q4 PRN PRN Reason: Pain, moderate (4-7) Diltiazem HCl (Cardizem) 60 mg PO Q8 [facility] Last Admin: 07/18/17 16:28 Dose: 60 mg Docusate Sodium (Colace) 100 mg PO TID [facility] Last Admin: 07/18/17 16:28 Dose: Not Given Furosemide (Lasix) 20 mg IVP DAILY [facility] Last Admin: 07/18/17 08:58 Dose: 20 mg Hydromorphone HCl (Dilaudid) 1 mg IVP Q4 PRN PRN Reason: Pain, severe (8-10) Last Admin: 07/18/17 14:25 Dose: 1 mg Linezolid 600 mg in NS 300 ml (Zyvox 600mg/300ml Ns) 600 mg in 300 mls @ 300 mls/hr IVPB Q12 [facility] PRN Reason: Protocol Last Admin: 07/18/17 09:01 Dose: 300 mls/hr Amiodarone HCl 450 mg/ Sodium (Chloride) 259 mls @ 34.53 mls/hr IVPB .Q7H31M [facility]; 1 MG/MIN PRN Reason: Protocol Last Admin: 07/14/17 01:00 Dose: 34.53 mls/hr Cefepime HCl 1 gm/ Sodium (Chloride) 50 mls @ 50 mls/hr IVPB Q12 [facility] PRN Reason: Protocol Mupirocin (Bactroban Ointment) 1 applic TOP BID [facility] Last Admin: 07/18/17 16:27 Dose: 1 applic Octreotide Acetate (Sandostatin) 300 mcg SC Q8 [facility] Last Admin: 07/18/17 16:31 Dose: 300 mcg Ondansetron HCl (Zofran Inj) 4 mg IVP Q6H PRN PRN Reason: Nausea/Vomiting Last Admin: 07/17/17 05:26 Dose: 4 mg Potassium Chloride (Potassium Chloride Oral Soln) 20 meq PO BID [facility] Last Admin: 07/18/17 16:30 Dose: 20 meq Saccharomyces Boulardii (Florastor) 250 mg PO BID [facility] Last Admin: 07/18/17 16:30 Dose: 250 mg - Labs Labs: 07/18/17 08:04 07/18/17 08:04 PT 25.7 Seconds (9.8-13.1) H 07/16/17 06:31 INR 2.3 (0.9-1.2) H 07/16/17 06:31 APTT 53.6 Seconds (25.6-37.1) H 07/16/17 06:31 - Head Exam Head Exam: ATRAUMATIC - Eye Exam Eye Exam: Normal appearance - ENT Exam ENT Exam: Mucous Membranes Dry - Respiratory Exam Respiratory Exam: NORMAL BREATHING PATTERN - Cardiovascular Exam Cardiovascular Exam: +S1, +S2 - GI/Abdominal Exam GI & Abdominal Exam: Normal Bowel Sounds Assessment and Plan (1) Pancytopenia Assessment & Plan: WBC and H/H fairly stable no neutropenia platelets improving no DIC suspect sepsis related Status: Acute
[2017-07-18] MEDS: Cefepime 1 GM in Sodium Chloride 0.9% 50 ML IVPB SCH (21:02)
[2017-07-19] MEDS: HYDROmorphone 0.5 mg/0.5 ml ISec IVP PRN ×4 (03:25→17:32)
[2017-07-19 06:00] LABS: BASO % 0.2 % (0.0-2.0); EOS # 0.1 K/uL (0.0-0.7); EOS % 3.8 % (0.0-4.0); LYMPH # 0.7 K/uL (1.0-4.3); LYMPH % 26.7 % (20.0-40.0); MEAN CORPUSCULAR HEMOGLOBIN 33.2 pg (27.0-31.0); MEAN CORPUSCULAR HGB CONC 32.8 g/dL (33.0-37.0); MEAN PLATELET VOLUME 8.5 fl (7.2-11.7); MONO # 0.1 K/uL (0.0-0.8); MONO % 5.3 % (0.0-10.0); NEUT # 1.6 K/uL (1.8-7.0); NRBC % 0.1 % (0.0-0.0); RBC 2.71 Mil/uL (4.40-5.90); RED CELL DISTRIBUTION WIDTH 16.8 % (11.5-14.5); WHITE BLOOD COUNT 2.6 K/uL (4.8-10.8)
[2017-07-19 06:22] LABS: ALB/GLOB RATIO 0.6 (1.0-2.1); ALBUMIN 1.7 g/dL (3.5-5.0); ALT/SGPT 34 U/L (21-72); AST/SGOT 14 U/L (17-59); BLOOD UREA NITROGEN 28 mg/dl (9-20); CALCIUM 6.9 mg/dL (8.4-10.2); GFR AFRICAN-AMERICAN > 60; GFR NON-AFRICAN AMERICAN > 60
--- NOTE | 2017-07-19 08:32 | CP.PCM.PN ---
<[place],Mariumky - Last Filed: 07/19/17 08:30> Subjective - Date & Time of Evaluation Date of Evaluation: 07/19/17 Time of Evaluation: 08:30 - Subjective Subjective: Surgery Progress Note: Dr. Worthy Patient seen and examined. Patient is non-cooperative. Continues to report of belly tenderness. Continues to deny CT scan today even after proper explanation. Denies of F/N/V/C/SOB/CP. No new complains. Objective - Vital Signs/Intake and Output Vital Signs (last 24 hours): Temp Pulse Resp BP Pulse Ox 99.0 F 73 13 91/49 L 96 07/19/17 04:00 07/19/17 06:00 07/19/17 06:00 07/19/17 06:00 07/19/17 06:00 Intake and Output: 07/19/17 07/19/17 06:59 18:59 Intake Total 940 Output Total 340 Balance 600 - Medications Medications: Current Medications Acetaminophen (Tylenol 325mg Tab) 650 mg PO Q4 PRN PRN Reason: Pain, moderate (4-7) Diltiazem HCl (Cardizem) 60 mg PO Q8 [facility] Last Admin: 07/19/17 02:00 Dose: Not Given Docusate Sodium (Colace) 100 mg PO TID [facility] Last Admin: 07/18/17 16:28 Dose: Not Given Furosemide (Lasix) 20 mg IVP DAILY [facility] Last Admin: 07/18/17 08:58 Dose: 20 mg Hydromorphone HCl (Dilaudid) 1 mg IVP Q4 PRN PRN Reason: Pain, severe (8-10) Last Admin: 07/19/17 03:25 Dose: 1 mg Linezolid 600 mg in NS 300 ml (Zyvox 600mg/300ml Ns) 600 mg in 300 mls @ 300 mls/hr IVPB Q12 [facility] PRN Reason: Protocol Last Admin: 07/18/17 22:13 Dose: 300 mls/hr Amiodarone HCl 450 mg/ Sodium (Chloride) 259 mls @ 34.53 mls/hr IVPB .Q7H31M [facility]; 1 MG/MIN PRN Reason: Protocol Last Admin: 07/14/17 01:00 Dose: 34.53 mls/hr Cefepime HCl 1 gm/ Sodium (Chloride) 50 mls @ 50 mls/hr IVPB Q12 [facility] PRN Reason: Protocol Last Admin: 07/18/17 21:02 Dose: 50 mls/hr Mupirocin (Bactroban Ointment) 1 applic TOP BID [facility] Last Admin: 07/18/17 16:27 Dose: 1 applic Octreotide Acetate (Sandostatin) 300 mcg SC Q8 [facility] Last Admin: 07/19/17 02:00 Dose: 300 mcg Ondansetron HCl (Zofran Inj) 4 mg IVP Q6H PRN PRN Reason: Nausea/Vomiting Last Admin: 07/17/17 05:26 Dose: 4 mg Potassium Chloride (Potassium Chloride Oral Soln) 20 meq PO BID [facility] Last Admin: 07/18/17 16:30 Dose: 20 meq Saccharomyces Boulardii (Florastor) 250 mg PO BID [facility] Last Admin: 07/18/17 16:30 Dose: 250 mg - Labs Labs: 07/19/17 05:14 07/19/17 05:14 PT 25.7 Seconds (9.8-13.1) H 07/16/17 06:31 INR 2.3 (0.9-1.2) H 07/16/17 06:31 APTT 53.6 Seconds (25.6-37.1) H 07/16/17 06:31 - Constitutional Appears: Well, Non-toxic, No Acute Distress - Head Exam Head Exam: ATRAUMATIC - Eye Exam Eye Exam: Normal appearance - ENT Exam ENT Exam: Normal Exam - Neck Exam Neck Exam: Full ROM, Normal Inspection - Respiratory Exam Respiratory Exam: NORMAL BREATHING PATTERN - GI/Abdominal Exam GI & Abdominal Exam: Soft, Tenderness. absent: Rigid, Hernia, Mass - Rectal Exam Rectal Exam: Deferred - Extremities Exam Extremities Exam: Full ROM, Normal Inspection - Back Exam Back Exam: NORMAL INSPECTION. absent: tenderness - Neurological Exam Neurological Exam: Alert, Awake, Oriented x3 - Psychiatric Exam Psychiatric exam: Normal Affect, Normal Mood - Skin Skin Exam: Intact, Normal Color, Warm Assessment and Plan - Assessment and Plan (Free Text) Assessment: 72M s/p exploratory laparotomy with findings of perforated viscous. Small bowel resection with anastomosis POD#11 Plan: CT - patient denies the scan Advance diet as tolerated Ok to Transfer to telemetry from surgical standpoint Continue with colace Medical management per primary team Pain management Monitor drain output - sero-sanguineous drainage from the left side and serous with hint of bile color drainage on the right f/u cultures Encourage ambulation <Mook Worthy - Last Filed: 07/22/17 15:50> Objective - Vital Signs/Intake and Output Vital Signs (last 24 hours): Temp Pulse Resp BP Pulse Ox 98.4 F 95 H 21 101/73 100 07/22/17 12:00 07/22/17 14:00 07/22/17 14:00 07/22/17 14:00 07/22/17 14:00 Intake and Output: 07/22/17 07/22/17 06:59 18:59 Intake Total 730 660 Output Total 1040 Balance -310 660 - Medications Medications: Current Medications Acetaminophen (Tylenol 325mg Tab) 650 mg PO Q4 PRN PRN Reason: Pain, moderate (4-7) Diltiazem HCl (Cardizem) 60 mg PO Q8 [facility] Last Admin: 07/22/17 09:02 Dose: Not Given Furosemide (Lasix) 20 mg IVP DAILY [facility] Last Admin: 07/22/17 09:03 Dose: 20 mg Amiodarone HCl 450 mg/ Sodium (Chloride) 259 mls @ 34.53 mls/hr IVPB .Q7H31M [facility]; 1 MG/MIN PRN Reason: Protocol Last Admin: 07/14/17 01:00 Dose: 34.53 mls/hr Meropenem 1 gm/ Sodium (Chloride) 100 mls @ 100 mls/hr IVPB Q8 [facility] PRN Reason: Protocol Micafungin Sodium 100 mg/ (Sodium Chloride) 100 mls @ 100 mls/hr IVPB DAILY [facility] PRN Reason: Protocol Last Admin: 07/22/17 14:48 Dose: 100 mls/hr Morphine Sulfate (Morphine) 6 mg IVP Q4 PRN PRN Reason: Pain, severe (8-10) Last Admin: 07/22/17 14:48 Dose: 6 mg Mupirocin (Bactroban Ointment) 1 applic TOP BID [facility] Last Admin: 07/22/17 09:02 Dose: 1 applic Octreotide Acetate (Sandostatin) 150 mcg SC Q8 [facility] Last Admin: 07/22/17 13:15 Dose: 150 mcg Ondansetron HCl (Zofran Inj) 4 mg IVP Q6H PRN PRN Reason: Nausea/Vomiting Last Admin: 07/17/17 05:26 Dose: 4 mg Potassium Chloride (Potassium Chloride Oral Soln) 20 meq PO BID [facility] Last Admin: 07/22/17 09:04 Dose: Not Given Saccharomyces Boulardii (Florastor) 250 mg PO BID [facility] Last Admin: 07/22/17 09:03 Dose: Not Given - Labs Labs: 07/22/17 05:20 07/22/17 05:20 PT 15.9 Seconds (9.8-13.1) H 07/22/17 05:20 INR 1.4 (0.9-1.2) H 07/22/17 05:20 APTT 39.1 Seconds (25.6-37.1) H 07/22/17 05:20 Attending/Attestation - Attestation I have personally seen and examined this patient.: Yes I have fully participated in the care of the patient.: Yes I have reviewed all pertinent clinical information, including history, physical exam and plan: Yes Notes (Text): Pt was seen and examined at bedside Agree with above note and assessment CT scan of A/P c/w Octreotide for bile leak from possible Biota c.w current mx Plan d.w pt in detail
[2017-07-19] MEDS: Saccharomyces Boulardi 250 mg Cap PO SCH ×2 (08:39→17:24)
[2017-07-19] MEDS: Cefepime 1 GM in Sodium Chloride 0.9% 50 ML IVPB SCH ×2 (08:40→20:52)
[2017-07-19] MEDS: Potassium Chloride 20 mEq/15 ml LIQ UD PO SCH ×2 (08:41→17:27)
[2017-07-19] MEDS: LINEZOLID IVPB SCH ×2 (08:45→20:54)
[2017-07-19] MEDS: NS IVPB SCH ×2 (08:45→20:54)
--- NOTE | 2017-07-19 09:43 | CP.PCM.PN ---
<Brandon Kauffman - Last Filed: 07/19/17 12:58> Subjective - Date & Time of Evaluation Date of Evaluation: 07/19/17 Time of Evaluation: 10:50 - Subjective Subjective: Stable s/p perforated viscus. Afebrile. still c/o abd and refusing CT abd. Clinically looking better. Tolerating PO. + Flatus, + BM. Denies CP, SOB, palpitations. Objective - Vital Signs/Intake and Output Vital Signs (last 24 hours): Temp Pulse Resp BP Pulse Ox 98.7 F 84 13 100/50 L 95 07/19/17 08:00 07/19/17 08:39 07/19/17 08:00 07/19/17 08:46 07/19/17 08:08 Intake and Output: 07/19/17 07/19/17 06:59 18:59 Intake Total 940 Output Total 340 Balance 600 - Medications Medications: Current Medications Acetaminophen (Tylenol 325mg Tab) 650 mg PO Q4 PRN PRN Reason: Pain, moderate (4-7) Diltiazem HCl (Cardizem) 60 mg PO Q8 [facility] Last Admin: 07/19/17 08:39 Dose: 60 mg Docusate Sodium (Colace) 100 mg PO TID [facility] Last Admin: 07/18/17 16:28 Dose: Not Given Furosemide (Lasix) 20 mg IVP DAILY [facility] Last Admin: 07/19/17 08:46 Dose: 20 mg Hydromorphone HCl (Dilaudid) 1 mg IVP Q4 PRN PRN Reason: Pain, severe (8-10) Last Admin: 07/19/17 08:36 Dose: 1 mg Linezolid 600 mg in NS 300 ml (Zyvox 600mg/300ml Ns) 600 mg in 300 mls @ 300 mls/hr IVPB Q12 [facility] PRN Reason: Protocol Last Admin: 07/19/17 08:45 Dose: 300 mls/hr Amiodarone HCl 450 mg/ Sodium (Chloride) 259 mls @ 34.53 mls/hr IVPB .Q7H31M [facility]; 1 MG/MIN PRN Reason: Protocol Last Admin: 07/14/17 01:00 Dose: 34.53 mls/hr Cefepime HCl 1 gm/ Sodium (Chloride) 50 mls @ 50 mls/hr IVPB Q12 [facility] PRN Reason: Protocol Last Admin: 07/19/17 08:40 Dose: 50 mls/hr Mupirocin (Bactroban Ointment) 1 applic TOP BID [facility] Last Admin: 07/19/17 08:38 Dose: 1 applic Octreotide Acetate (Sandostatin) 150 mcg SC Q8 [facility] Ondansetron HCl (Zofran Inj) 4 mg IVP Q6H PRN PRN Reason: Nausea/Vomiting Last Admin: 07/17/17 05:26 Dose: 4 mg Potassium Chloride (Potassium Chloride Oral Soln) 20 meq PO BID [facility] Last Admin: 07/19/17 08:41 Dose: 20 meq Saccharomyces Boulardii (Florastor) 250 mg PO BID [facility] Last Admin: 07/19/17 08:39 Dose: 250 mg - Labs Labs: 07/19/17 05:14 07/19/17 05:14 PT 25.7 Seconds (9.8-13.1) H 07/16/17 06:31 INR 2.3 (0.9-1.2) H 07/16/17 06:31 APTT 53.6 Seconds (25.6-37.1) H 07/16/17 06:31 - Constitutional Appears: Non-toxic, Chronically Ill - Eye Exam Eye Exam: EOMI, PERRL - ENT Exam ENT Exam: Mucous Membranes Moist - Respiratory Exam Respiratory Exam: NORMAL BREATHING PATTERN. absent: Decreased Breath Sounds, Rales, Wheezes - Cardiovascular Exam Cardiovascular Exam: REGULAR RHYTHM, +S1, +S2. absent: Gallop - GI/Abdominal Exam GI & Abdominal Exam: Distended (Slightly), Tenderness (Diffuse). absent: Guarding, Rigid, Rebound - Exam Exam: Scrotal Swelling (Edema) - Extremities Exam Extremities Exam: Normal Capillary Refill, Pedal Edema. absent: Calf Tenderness , Tenderness - Neurological Exam Neurological Exam: Alert, Awake, Oriented x3 - Psychiatric Exam Psychiatric exam: Normal Affect, Normal Mood - Skin Skin Exam: Normal Color, Warm Assessment and Plan - Assessment and Plan (Free Text) Assessment: S/p perforated viscus Improving persistent abd pain but seem improved compared to Yesterday refusing CT abd and Getting OOB Stable c/w IV abx trombocitopenia improved F/U Surgery recs Patient to be transferred to reg floor. <Bronson Castaneda - Last Filed: 07/22/17 21:38> Objective - Vital Signs/Intake and Output Vital Signs (last 24 hours): Temp Pulse Resp BP Pulse Ox 97.8 F 91 H 18 111/60 100 07/22/17 16:00 07/22/17 18:00 07/22/17 18:00 07/22/17 18:00 07/22/17 18:00 Intake and Output: 07/22/17 07/23/17 18:59 06:59 Intake Total 940 Output Total 1165 Balance -225 - Medications Medications: Current Medications Acetaminophen (Tylenol 325mg Tab) 650 mg PO Q4 PRN PRN Reason: Pain, moderate (4-7) Diltiazem HCl (Cardizem) 60 mg PO Q8 [facility] Last Admin: 07/22/17 16:01 Dose: Not Given Furosemide (Lasix) 20 mg IVP DAILY [facility] Last Admin: 07/22/17 09:03 Dose: 20 mg Amiodarone HCl 450 mg/ Sodium (Chloride) 259 mls @ 34.53 mls/hr IVPB .Q7H31M [facility]; 1 MG/MIN PRN Reason: Protocol Last Admin: 07/14/17 01:00 Dose: 34.53 mls/hr Meropenem 1 gm/ Sodium (Chloride) 100 mls @ 100 mls/hr IVPB Q8 [facility] PRN Reason: Protocol Last Admin: 07/22/17 16:08 Dose: 100 mls/hr Micafungin Sodium 100 mg/ (Sodium Chloride) 100 mls @ 100 mls/hr IVPB DAILY [facility] PRN Reason: Protocol Last Admin: 07/22/17 14:48 Dose: 100 mls/hr Potassium Chloride/Dextrose/Sod Cl (Potassium Chl 20 Meq In D5-1/2ns) 1,000 mls @ 100 mls/hr IV .Q10H [facility] Stop: 07/23/17 06:14 Last Admin: 07/22/17 21:04 Dose: 100 mls/hr Morphine Sulfate (Morphine) 6 mg IVP Q4 PRN PRN Reason: Pain, severe (8-10) Last Admin: 07/22/17 21:03 Dose: 6 mg Mupirocin (Bactroban Ointment) 1 applic TOP BID [facility] Last Admin: 07/22/17 16:09 Dose: 1 applic Octreotide Acetate (Sandostatin) 300 mcg SC Q8@0500,1300,2100 [facility] Last Admin: 07/22/17 21:03 Dose: 300 mcg Ondansetron HCl (Zofran Inj) 4 mg IVP Q6H PRN PRN Reason: Nausea/Vomiting Last Admin: 07/17/17 05:26 Dose: 4 mg Potassium Chloride (Potassium Chloride Oral Soln) 20 meq PO BID [facility] Last Admin: 07/22/17 16:01 Dose: Not Given Saccharomyces Boulardii (Florastor) 250 mg PO BID [facility] Last Admin: 07/22/17 16:01 Dose: Not Given - Labs Labs: 07/22/17 05:20 07/22/17 05:20 PT 15.9 Seconds (9.8-13.1) H 07/22/17 05:20 INR 1.4 (0.9-1.2) H 07/22/17 05:20 APTT 39.1 Seconds (25.6-37.1) H 07/22/17 05:20 Assessment and Plan (1) Abdominal pain Status: Acute (2) COPD (chronic obstructive pulmonary disease) Status: Acute (3) Essential (primary) hypertension Status: Acute (4) Hx of atrial fibrillation, no current medication Status: Acute (5) Intestinal perforation Status: Acute (6) Perforated abdominal viscus Status: Acute (7) Atrial fibrillation Status: Acute (8) Anemia Status: Acute (9) Thrombocytopenia Status: Acute - Assessment and Plan (Free Text) Plan: I was present during evaluation and discussed with Dr Kauffman re plans of care and tx. Bronson Castaneda M.D.
--- NOTE | 2017-07-19 13:12 | CP.PCM.PN ---
Subjective - Date & Time of Evaluation Date of Evaluation: 07/19/17 Time of Evaluation: 06:00 - Subjective Subjective: improving s/p septic shock secondary to perforated =viscius has hep B - possible cirrhosis ? Objective - Vital Signs/Intake and Output Vital Signs (last 24 hours): Temp Pulse Resp BP Pulse Ox 98.2 F 84 19 108/56 L 98 07/19/17 12:00 07/19/17 12:00 07/19/17 12:00 07/19/17 12:00 07/19/17 12:00 Intake and Output: 07/19/17 07/19/17 06:59 18:59 Intake Total 940 Output Total 340 Balance 600 - Medications Medications: Current Medications Acetaminophen (Tylenol 325mg Tab) 650 mg PO Q4 PRN PRN Reason: Pain, moderate (4-7) Diltiazem HCl (Cardizem) 60 mg PO Q8 [facility] Last Admin: 07/19/17 08:39 Dose: 60 mg Docusate Sodium (Colace) 100 mg PO TID [facility] Last Admin: 07/18/17 16:28 Dose: Not Given Furosemide (Lasix) 20 mg IVP DAILY [facility] Last Admin: 07/19/17 08:46 Dose: 20 mg Hydromorphone HCl (Dilaudid) 1 mg IVP Q4 PRN PRN Reason: Pain, severe (8-10) Last Admin: 07/19/17 08:36 Dose: 1 mg Linezolid 600 mg in NS 300 ml (Zyvox 600mg/300ml Ns) 600 mg in 300 mls @ 300 mls/hr IVPB Q12 [facility] PRN Reason: Protocol Last Admin: 07/19/17 08:45 Dose: 300 mls/hr Amiodarone HCl 450 mg/ Sodium (Chloride) 259 mls @ 34.53 mls/hr IVPB .Q7H31M [facility]; 1 MG/MIN PRN Reason: Protocol Last Admin: 07/14/17 01:00 Dose: 34.53 mls/hr Cefepime HCl 1 gm/ Sodium (Chloride) 50 mls @ 50 mls/hr IVPB Q12 [facility] PRN Reason: Protocol Last Admin: 07/19/17 08:40 Dose: 50 mls/hr Mupirocin (Bactroban Ointment) 1 applic TOP BID [facility] Last Admin: 07/19/17 08:38 Dose: 1 applic Octreotide Acetate (Sandostatin) 150 mcg SC Q8 [facility] Ondansetron HCl (Zofran Inj) 4 mg IVP Q6H PRN PRN Reason: Nausea/Vomiting Last Admin: 07/17/17 05:26 Dose: 4 mg Potassium Chloride (Potassium Chloride Oral Soln) 20 meq PO BID [facility] Last Admin: 07/19/17 08:41 Dose: 20 meq Saccharomyces Boulardii (Florastor) 250 mg PO BID [facility] Last Admin: 07/19/17 08:39 Dose: 250 mg - Labs Labs: 07/19/17 05:14 07/19/17 05:14 PT 25.7 Seconds (9.8-13.1) H 07/16/17 06:31 INR 2.3 (0.9-1.2) H 07/16/17 06:31 APTT 53.6 Seconds (25.6-37.1) H 07/16/17 06:31 - Constitutional Appears: Non-toxic, Cachectic, Chronically Ill - Head Exam Head Exam: NORMOCEPHALIC - Eye Exam Eye Exam: PERRL - ENT Exam ENT Exam: Mucous Membranes Dry - Neck Exam Neck Exam: absent: Lymphadenopathy - Respiratory Exam Respiratory Exam: Decreased Breath Sounds, Rhonchi - Cardiovascular Exam Cardiovascular Exam: REGULAR RHYTHM - GI/Abdominal Exam GI & Abdominal Exam: Distended, Soft - Rectal Exam Rectal Exam: Deferred - Exam Exam: NORMAL INSPECTION - Extremities Exam Extremities Exam: absent: Pedal Edema - Back Exam Back Exam: absent: CVA tenderness (L), CVA tenderness (R) - Neurological Exam Neurological Exam: Alert, Awake, Oriented x3 Assessment and Plan (1) Abdominal pain Status: Acute (2) COPD (chronic obstructive pulmonary disease) Status: Acute (3) Essential (primary) hypertension Status: Acute (4) Hx of atrial fibrillation, no current medication Status: Acute (5) Intestinal perforation Status: Acute (6) Perforated abdominal viscus Status: Acute (7) Sepsis Status: Acute - Assessment and Plan (Free Text) Assessment: consider d/c antibiotics needs nutritional support
--- NOTE | 2017-07-19 20:43 | CP.PCM.PN ---
Subjective - Date & Time of Evaluation Date of Evaluation: 07/19/17 Time of Evaluation: 19:00 - Subjective Subjective: Less communicative today, appears fatigued Objective - Vital Signs/Intake and Output Vital Signs (last 24 hours): Temp Pulse Resp BP Pulse Ox 98.5 F 85 19 101/57 L 97 07/19/17 16:36 07/19/17 18:00 07/19/17 18:00 07/19/17 18:00 07/19/17 18:00 Intake and Output: 07/19/17 07/20/17 18:59 06:59 Intake Total 1100 Output Total 900 Balance 200 - Medications Medications: Current Medications Acetaminophen (Tylenol 325mg Tab) 650 mg PO Q4 PRN PRN Reason: Pain, moderate (4-7) Diltiazem HCl (Cardizem) 60 mg PO Q8 [facility] Last Admin: 07/19/17 17:22 Dose: 60 mg Docusate Sodium (Colace) 100 mg PO TID [facility] Last Admin: 07/19/17 17:23 Dose: 100 mg Furosemide (Lasix) 20 mg IVP DAILY [facility] Last Admin: 07/19/17 08:46 Dose: 20 mg Hydromorphone HCl (Dilaudid) 1 mg IVP Q4 PRN PRN Reason: Pain, severe (8-10) Last Admin: 07/19/17 17:32 Dose: 1 mg Linezolid 600 mg in NS 300 ml (Zyvox 600mg/300ml Ns) 600 mg in 300 mls @ 300 mls/hr IVPB Q12 [facility] PRN Reason: Protocol Last Admin: 07/19/17 08:45 Dose: 300 mls/hr Amiodarone HCl 450 mg/ Sodium (Chloride) 259 mls @ 34.53 mls/hr IVPB .Q7H31M [facility]; 1 MG/MIN PRN Reason: Protocol Last Admin: 07/14/17 01:00 Dose: 34.53 mls/hr Cefepime HCl 1 gm/ Sodium (Chloride) 50 mls @ 50 mls/hr IVPB Q12 [facility] PRN Reason: Protocol Last Admin: 07/19/17 08:40 Dose: 50 mls/hr Mupirocin (Bactroban Ointment) 1 applic TOP BID [facility] Last Admin: 07/19/17 17:21 Dose: 1 applic Octreotide Acetate (Sandostatin) 150 mcg SC Q8 [facility] Last Admin: 07/19/17 17:28 Dose: 150 mcg Ondansetron HCl (Zofran Inj) 4 mg IVP Q6H PRN PRN Reason: Nausea/Vomiting Last Admin: 07/17/17 05:26 Dose: 4 mg Potassium Chloride (Potassium Chloride Oral Soln) 20 meq PO BID [facility] Last Admin: 07/19/17 17:27 Dose: 20 meq Saccharomyces Boulardii (Florastor) 250 mg PO BID [facility] Last Admin: 07/19/17 17:24 Dose: 250 mg - Labs Labs: 07/19/17 05:14 07/19/17 05:14 PT 25.7 Seconds (9.8-13.1) H 07/16/17 06:31 INR 2.3 (0.9-1.2) H 07/16/17 06:31 APTT 53.6 Seconds (25.6-37.1) H 07/16/17 06:31 - Head Exam Head Exam: ATRAUMATIC - Eye Exam Eye Exam: Normal appearance - ENT Exam ENT Exam: Mucous Membranes Dry - Respiratory Exam Respiratory Exam: NORMAL BREATHING PATTERN - Cardiovascular Exam Cardiovascular Exam: +S1, +S2 - GI/Abdominal Exam GI & Abdominal Exam: Normal Bowel Sounds Assessment and Plan (1) Pancytopenia Assessment & Plan: WBC and H/H fairly stable no neutropenia platelets improved overall but slightly diminished today no DIC suspect sepsis related Status: Acute
[2017-07-20] MEDS: HYDROmorphone 0.5 mg/0.5 ml ISec IVP PRN ×3 (05:27→17:58)
[2017-07-20] MEDS ORDERED: Iohexol 240 (50 ml) PO ONE ×2 (07:57→10:09)
--- NOTE | 2017-07-20 08:22 | CP.PCM.PN ---
<BuddyDianelys - Last Filed: 07/20/17 12:03> Subjective - Date & Time of Evaluation Date of Evaluation: 07/20/17 Time of Evaluation: 08:20 - Subjective Subjective: General surgery - Dr. Worthy Pt S&E. DAVID. Pt more cooperative this morning and states that he agrees to go for CT scan today. He complains of slight worsening of abdominal pain and bloating, otherwise no complaints. He denies any Fevers, chills, SOb or chest pains. 50cc bilious drainage from L preet drain. Iodoform packing changed within incision. Objective - Vital Signs/Intake and Output Vital Signs (last 24 hours): Temp Pulse Resp BP Pulse Ox 98.2 F 80 15 109/61 100 07/20/17 08:00 07/20/17 08:00 07/20/17 08:00 07/20/17 08:00 07/20/17 08:00 Intake and Output: 07/20/17 07/20/17 06:59 18:59 Intake Total 400 Output Total 450 Balance -50 - Medications Medications: Current Medications Acetaminophen (Tylenol 325mg Tab) 650 mg PO Q4 PRN PRN Reason: Pain, moderate (4-7) Diltiazem HCl (Cardizem) 60 mg PO Q8 [facility] Last Admin: 07/20/17 01:30 Dose: 60 mg Docusate Sodium (Colace) 100 mg PO TID [facility] Last Admin: 07/19/17 17:23 Dose: 100 mg Furosemide (Lasix) 20 mg IVP DAILY [facility] Last Admin: 07/19/17 08:46 Dose: 20 mg Hydromorphone HCl (Dilaudid) 1 mg IVP Q4 PRN PRN Reason: Pain, severe (8-10) Last Admin: 07/20/17 05:27 Dose: 1 mg Linezolid 600 mg in NS 300 ml (Zyvox 600mg/300ml Ns) 600 mg in 300 mls @ 300 mls/hr IVPB Q12 [facility] PRN Reason: Protocol Last Admin: 07/19/17 20:54 Dose: 300 mls/hr Amiodarone HCl 450 mg/ Sodium (Chloride) 259 mls @ 34.53 mls/hr IVPB .Q7H31M [facility]; 1 MG/MIN PRN Reason: Protocol Last Admin: 07/14/17 01:00 Dose: 34.53 mls/hr Cefepime HCl 1 gm/ Sodium (Chloride) 50 mls @ 50 mls/hr IVPB Q12 [facility] PRN Reason: Protocol Last Admin: 07/19/17 20:52 Dose: 50 mls/hr Mupirocin (Bactroban Ointment) 1 applic TOP BID [facility] Last Admin: 07/19/17 17:21 Dose: 1 applic Octreotide Acetate (Sandostatin) 150 mcg SC Q8 [facility] Last Admin: 07/20/17 01:26 Dose: 150 mcg Ondansetron HCl (Zofran Inj) 4 mg IVP Q6H PRN PRN Reason: Nausea/Vomiting Last Admin: 07/17/17 05:26 Dose: 4 mg Potassium Chloride (Potassium Chloride Oral Soln) 20 meq PO BID [facility] Last Admin: 07/19/17 17:27 Dose: 20 meq Saccharomyces Boulardii (Florastor) 250 mg PO BID [facility] Last Admin: 07/19/17 17:24 Dose: 250 mg - Labs Labs: 07/19/17 05:14 07/19/17 05:14 PT 25.7 Seconds (9.8-13.1) H 07/16/17 06:31 INR 2.3 (0.9-1.2) H 07/16/17 06:31 APTT 53.6 Seconds (25.6-37.1) H 07/16/17 06:31 - Constitutional Appears: No Acute Distress - Head Exam Head Exam: ATRAUMATIC, NORMAL INSPECTION, NORMOCEPHALIC - Respiratory Exam Respiratory Exam: NORMAL BREATHING PATTERN. absent: Respiratory Distress - Cardiovascular Exam Cardiovascular Exam: Tachycardia - GI/Abdominal Exam GI & Abdominal Exam: Distended, Guarding, Soft, Tenderness. absent: Rigid, Rebound Additional comments: incision w/ mild erythema and steffi in place, iodoform packing in between - Neurological Exam Neurological Exam: Alert, Oriented x3 - Skin Skin Exam: Dry, Intact Assessment and Plan - Assessment and Plan (Free Text) Assessment: 72M s/p exploratory laparotomy with findings of perforated viscous. Small bowel resection with anastomosis POD#12 Plan: -CT abd/pelvis w/ PO/IV Contrast -Ok to Transfer to [facility] from surgical standpoint -Continue medical management per primary team -Pain control prn -Monitor drain output -Encourage OOB ROSIO Worthy <Mook Worthy - Last Filed: 07/22/17 16:06> Objective - Vital Signs/Intake and Output Vital Signs (last 24 hours): Temp Pulse Resp BP Pulse Ox 98.4 F 94 H 21 107/54 L 100 07/22/17 12:00 07/22/17 16:01 07/22/17 14:00 07/22/17 16:01 07/22/17 14:00 Intake and Output: 07/22/17 07/22/17 06:59 18:59 Intake Total 730 660 Output Total 1040 Balance -310 660 - Medications Medications: Current Medications Acetaminophen (Tylenol 325mg Tab) 650 mg PO Q4 PRN PRN Reason: Pain, moderate (4-7) Diltiazem HCl (Cardizem) 60 mg PO Q8 [facility] Last Admin: 07/22/17 16:01 Dose: Not Given Furosemide (Lasix) 20 mg IVP DAILY [facility] Last Admin: 07/22/17 09:03 Dose: 20 mg Amiodarone HCl 450 mg/ Sodium (Chloride) 259 mls @ 34.53 mls/hr IVPB .Q7H31M [facility]; 1 MG/MIN PRN Reason: Protocol Last Admin: 07/14/17 01:00 Dose: 34.53 mls/hr Meropenem 1 gm/ Sodium (Chloride) 100 mls @ 100 mls/hr IVPB Q8 [facility] PRN Reason: Protocol Micafungin Sodium 100 mg/ (Sodium Chloride) 100 mls @ 100 mls/hr IVPB DAILY [facility] PRN Reason: Protocol Last Admin: 07/22/17 14:48 Dose: 100 mls/hr Morphine Sulfate (Morphine) 6 mg IVP Q4 PRN PRN Reason: Pain, severe (8-10) Last Admin: 07/22/17 14:48 Dose: 6 mg Mupirocin (Bactroban Ointment) 1 applic TOP BID [facility] Last Admin: 07/22/17 09:02 Dose: 1 applic Octreotide Acetate (Sandostatin) 300 mcg SC Q8 [facility] Ondansetron HCl (Zofran Inj) 4 mg IVP Q6H PRN PRN Reason: Nausea/Vomiting Last Admin: 07/17/17 05:26 Dose: 4 mg Potassium Chloride (Potassium Chloride Oral Soln) 20 meq PO BID [facility] Last Admin: 07/22/17 16:01 Dose: Not Given Saccharomyces Boulardii (Florastor) 250 mg PO BID [facility] Last Admin: 07/22/17 16:01 Dose: Not Given - Labs Labs: 07/22/17 05:20 07/22/17 05:20 PT 15.9 Seconds (9.8-13.1) H 07/22/17 05:20 INR 1.4 (0.9-1.2) H 07/22/17 05:20 APTT 39.1 Seconds (25.6-37.1) H 07/22/17 05:20 Attending/Attestation - Attestation I have personally seen and examined this patient.: Yes I have fully participated in the care of the patient.: Yes I have reviewed all pertinent clinical information, including history, physical exam and plan: Yes Notes (Text): Pt was seen and examined at bedside Agree with above note and assessment Pt agreeed to get CT scan today CT scan reviewed c/w Octreotide for bile leak c.w current mx Plan d.w pt and ICU attending in detail
[2017-07-20] MEDS: Potassium Chloride 20 mEq/15 ml LIQ UD PO SCH ×2 (08:24→16:39)
[2017-07-20] MEDS: Saccharomyces Boulardi 250 mg Cap PO SCH ×2 (08:26→16:38)
[2017-07-20] MEDS: Cefepime 1 GM in Sodium Chloride 0.9% 50 ML IVPB SCH (08:27)
[2017-07-20] MEDS: NS IVPB SCH ×2 (08:29→20:08)
[2017-07-20] MEDS: LINEZOLID IVPB SCH ×2 (08:29→20:08)
--- NOTE | 2017-07-20 12:25 | CP.PCM.PN ---
<Brandon Kauffman - Last Filed: 07/20/17 12:34> Subjective - Date & Time of Evaluation Date of Evaluation: 07/20/17 Time of Evaluation: 10:45 - Subjective Subjective: Patient stable but still c/o abd pain. no vomiting, nausea and has been tolerating PO. Last BM 2 days ago, patient is on colace BID. He states that is not passing gasses although he has been eating and drinking, apple sauce, ensure , water. Agreed to take PO contrast today. Objective - Vital Signs/Intake and Output Vital Signs (last 24 hours): Temp Pulse Resp BP Pulse Ox 98.3 F 81 20 91/66 L 100 07/20/17 12:00 07/20/17 12:00 07/20/17 12:00 07/20/17 12:00 07/20/17 12:00 Intake and Output: 07/20/17 07/20/17 06:59 18:59 Intake Total 400 1300 Output Total 450 300 Balance -50 1000 - Medications Medications: Current Medications Acetaminophen (Tylenol 325mg Tab) 650 mg PO Q4 PRN PRN Reason: Pain, moderate (4-7) Diltiazem HCl (Cardizem) 60 mg PO Q8 [facility] Last Admin: 07/20/17 08:24 Dose: 60 mg Docusate Sodium (Colace) 100 mg PO TID [facility] Last Admin: 07/20/17 08:25 Dose: 100 mg Furosemide (Lasix) 20 mg IVP DAILY [facility] Last Admin: 07/20/17 08:26 Dose: 20 mg Hydromorphone HCl (Dilaudid) 1 mg IVP Q4 PRN PRN Reason: Pain, severe (8-10) Last Admin: 07/20/17 10:46 Dose: 1 mg Linezolid 600 mg in NS 300 ml (Zyvox 600mg/300ml Ns) 600 mg in 300 mls @ 300 mls/hr IVPB Q12 [facility] PRN Reason: Protocol Last Admin: 07/20/17 08:29 Dose: 300 mls/hr Amiodarone HCl 450 mg/ Sodium (Chloride) 259 mls @ 34.53 mls/hr IVPB .Q7H31M [facility]; 1 MG/MIN PRN Reason: Protocol Last Admin: 07/14/17 01:00 Dose: 34.53 mls/hr Cefepime HCl 1 gm/ Dextrose 100 mls @ 100 mls/hr IVPB Q12 [facility] PRN Reason: Protocol Mupirocin (Bactroban Ointment) 1 applic TOP BID [facility] Last Admin: 07/20/17 08:25 Dose: 1 applic Octreotide Acetate (Sandostatin) 150 mcg SC Q8 [facility] Last Admin: 07/20/17 01:26 Dose: 150 mcg Ondansetron HCl (Zofran Inj) 4 mg IVP Q6H PRN PRN Reason: Nausea/Vomiting Last Admin: 07/17/17 05:26 Dose: 4 mg Potassium Chloride (Potassium Chloride Oral Soln) 20 meq PO BID [facility] Last Admin: 07/20/17 08:24 Dose: 20 meq Saccharomyces Boulardii (Florastor) 250 mg PO BID [facility] Last Admin: 07/20/17 08:26 Dose: 250 mg - Labs Labs: 07/19/17 05:14 07/19/17 05:14 PT 25.7 Seconds (9.8-13.1) H 07/16/17 06:31 INR 2.3 (0.9-1.2) H 07/16/17 06:31 APTT 53.6 Seconds (25.6-37.1) H 07/16/17 06:31 - Constitutional Appears: Non-toxic, In Acute Distress (pain), Chronically Ill - Eye Exam Eye Exam: PERRL - ENT Exam ENT Exam: Mucous Membranes Moist - Respiratory Exam Respiratory Exam: Clear to Ausculation Bilateral, NORMAL BREATHING PATTERN. absent: Decreased Breath Sounds, Rales, Respiratory Distress - Cardiovascular Exam Cardiovascular Exam: REGULAR RHYTHM, +S1, +S2. absent: Gallop - GI/Abdominal Exam GI & Abdominal Exam: Distended, Firm, Guarding, Tenderness, Hypoactive Bowel Sounds. absent: Rebound Additional comments: Anam drainage in place B/L - Extremities Exam Extremities Exam: Normal Capillary Refill, Pedal Edema. absent: Calf Tenderness - Neurological Exam Neurological Exam: Alert, Awake, Oriented x3 - Skin Skin Exam: Warm Assessment and Plan - Assessment and Plan (Free Text) Assessment: S/p perforated viscus Pancitopenia and s/p sepsis Still distended c/o pain for CT scan abd and pelvis today Surgery aware on patient status. No plans for further Sx intervention at this time Afebrile Sepsis resolved C/W IV abx as per ID C/W supportive measures Pancitopenia stable Watch for signs of fluid overload F/U CT and Surgery recs <Bronson Castaneda - Last Filed: 07/22/17 21:39> Objective - Vital Signs/Intake and Output Vital Signs (last 24 hours): Temp Pulse Resp BP Pulse Ox 97.8 F 91 H 18 111/60 100 07/22/17 16:00 07/22/17 18:00 07/22/17 18:00 07/22/17 18:00 07/22/17 18:00 Intake and Output: 07/22/17 07/23/17 18:59 06:59 Intake Total 940 Output Total 1165 Balance -225 - Medications Medications: Current Medications Acetaminophen (Tylenol 325mg Tab) 650 mg PO Q4 PRN PRN Reason: Pain, moderate (4-7) Diltiazem HCl (Cardizem) 60 mg PO Q8 [facility] Last Admin: 07/22/17 16:01 Dose: Not Given Furosemide (Lasix) 20 mg IVP DAILY [facility] Last Admin: 07/22/17 09:03 Dose: 20 mg Amiodarone HCl 450 mg/ Sodium (Chloride) 259 mls @ 34.53 mls/hr IVPB .Q7H31M [facility]; 1 MG/MIN PRN Reason: Protocol Last Admin: 07/14/17 01:00 Dose: 34.53 mls/hr Meropenem 1 gm/ Sodium (Chloride) 100 mls @ 100 mls/hr IVPB Q8 [facility] PRN Reason: Protocol Last Admin: 07/22/17 16:08 Dose: 100 mls/hr Micafungin Sodium 100 mg/ (Sodium Chloride) 100 mls @ 100 mls/hr IVPB DAILY [facility] PRN Reason: Protocol Last Admin: 07/22/17 14:48 Dose: 100 mls/hr Potassium Chloride/Dextrose/Sod Cl (Potassium Chl 20 Meq In D5-1/2ns) 1,000 mls @ 100 mls/hr IV .Q10H [facility] Stop: 07/23/17 06:14 Last Admin: 07/22/17 21:04 Dose: 100 mls/hr Morphine Sulfate (Morphine) 6 mg IVP Q4 PRN PRN Reason: Pain, severe (8-10) Last Admin: 07/22/17 21:03 Dose: 6 mg Mupirocin (Bactroban Ointment) 1 applic TOP BID [facility] Last Admin: 07/22/17 16:09 Dose: 1 applic Octreotide Acetate (Sandostatin) 300 mcg SC Q8@0500,1300,2100 [facility] Last Admin: 07/22/17 21:03 Dose: 300 mcg Ondansetron HCl (Zofran Inj) 4 mg IVP Q6H PRN PRN Reason: Nausea/Vomiting Last Admin: 07/17/17 05:26 Dose: 4 mg Potassium Chloride (Potassium Chloride Oral Soln) 20 meq PO BID [facility] Last Admin: 07/22/17 16:01 Dose: Not Given Saccharomyces Boulardii (Florastor) 250 mg PO BID [facility] Last Admin: 07/22/17 16:01 Dose: Not Given - Labs Labs: 07/22/17 05:20 07/22/17 05:20 PT 15.9 Seconds (9.8-13.1) H 07/22/17 05:20 INR 1.4 (0.9-1.2) H 07/22/17 05:20 APTT 39.1 Seconds (25.6-37.1) H 07/22/17 05:20 Assessment and Plan (1) Abdominal pain Status: Acute (2) COPD (chronic obstructive pulmonary disease) Status: Acute (3) Essential (primary) hypertension Status: Acute (4) Hx of atrial fibrillation, no current medication Status: Acute (5) Intestinal perforation Status: Acute (6) Perforated abdominal viscus Status: Acute (7) Atrial fibrillation Status: Acute (8) Anemia Status: Acute (9) Thrombocytopenia Status: Acute - Assessment and Plan (Free Text) Plan: I was present during evaluation and discussed with Dr Jamari shine plans of care and tx Bronson Castaneda M.D.
--- NOTE | 2017-07-20 12:27 | CP.PCM.PN ---
Subjective - Date & Time of Evaluation Date of Evaluation: 07/20/17 Time of Evaluation: 10:00 - Subjective Subjective: still has drain in place going for CT abd today denies fever weak and emaciated + Hep B sAg r/o cirrhosis r/o GI malignancy Objective - Vital Signs/Intake and Output Vital Signs (last 24 hours): Temp Pulse Resp BP Pulse Ox 98.3 F 81 20 91/66 L 100 07/20/17 12:00 07/20/17 12:00 07/20/17 12:00 07/20/17 12:00 07/20/17 12:00 Intake and Output: 07/20/17 07/20/17 06:59 18:59 Intake Total 400 1300 Output Total 450 300 Balance -50 1000 - Medications Medications: Current Medications Acetaminophen (Tylenol 325mg Tab) 650 mg PO Q4 PRN PRN Reason: Pain, moderate (4-7) Diltiazem HCl (Cardizem) 60 mg PO Q8 [facility] Last Admin: 07/20/17 08:24 Dose: 60 mg Docusate Sodium (Colace) 100 mg PO TID [facility] Last Admin: 07/20/17 08:25 Dose: 100 mg Furosemide (Lasix) 20 mg IVP DAILY [facility] Last Admin: 07/20/17 08:26 Dose: 20 mg Hydromorphone HCl (Dilaudid) 1 mg IVP Q4 PRN PRN Reason: Pain, severe (8-10) Last Admin: 07/20/17 10:46 Dose: 1 mg Linezolid 600 mg in NS 300 ml (Zyvox 600mg/300ml Ns) 600 mg in 300 mls @ 300 mls/hr IVPB Q12 [facility] PRN Reason: Protocol Last Admin: 07/20/17 08:29 Dose: 300 mls/hr Amiodarone HCl 450 mg/ Sodium (Chloride) 259 mls @ 34.53 mls/hr IVPB .Q7H31M [facility]; 1 MG/MIN PRN Reason: Protocol Last Admin: 07/14/17 01:00 Dose: 34.53 mls/hr Cefepime HCl 1 gm/ Dextrose 100 mls @ 100 mls/hr IVPB Q12 [facility] PRN Reason: Protocol Mupirocin (Bactroban Ointment) 1 applic TOP BID [facility] Last Admin: 07/20/17 08:25 Dose: 1 applic Octreotide Acetate (Sandostatin) 150 mcg SC Q8 [facility] Last Admin: 07/20/17 01:26 Dose: 150 mcg Ondansetron HCl (Zofran Inj) 4 mg IVP Q6H PRN PRN Reason: Nausea/Vomiting Last Admin: 07/17/17 05:26 Dose: 4 mg Potassium Chloride (Potassium Chloride Oral Soln) 20 meq PO BID [facility] Last Admin: 07/20/17 08:24 Dose: 20 meq Saccharomyces Boulardii (Florastor) 250 mg PO BID [facility] Last Admin: 07/20/17 08:26 Dose: 250 mg - Labs Labs: 07/19/17 05:14 07/19/17 05:14 PT 25.7 Seconds (9.8-13.1) H 07/16/17 06:31 INR 2.3 (0.9-1.2) H 07/16/17 06:31 APTT 53.6 Seconds (25.6-37.1) H 07/16/17 06:31 - Constitutional Appears: Non-toxic, Cachectic, Chronically Ill - Head Exam Head Exam: NORMOCEPHALIC - Eye Exam Eye Exam: PERRL. absent: Scleral icterus - ENT Exam ENT Exam: Mucous Membranes Dry - Neck Exam Neck Exam: absent: Lymphadenopathy - Respiratory Exam Respiratory Exam: Decreased Breath Sounds - Cardiovascular Exam Cardiovascular Exam: REGULAR RHYTHM - GI/Abdominal Exam GI & Abdominal Exam: Distended, Soft - Rectal Exam Rectal Exam: Deferred - Exam Exam: NORMAL INSPECTION - Extremities Exam Extremities Exam: absent: Pedal Edema - Back Exam Back Exam: absent: CVA tenderness (L), CVA tenderness (R) - Neurological Exam Neurological Exam: Alert, Awake Neuro motor strength exam: Left Upper Extremity: 3, Right Upper Extremity: 3, Left Lower Extremity: 3, Right Lower Extremity: 3 Assessment and Plan (1) Abdominal pain Status: Acute (2) COPD (chronic obstructive pulmonary disease) Status: Acute (3) Essential (primary) hypertension Status: Acute (4) Hx of atrial fibrillation, no current medication Status: Acute (5) Intestinal perforation Status: Acute (6) Perforated abdominal viscus Status: Acute (7) Sepsis Status: Acute - Assessment and Plan (Free Text) Assessment: still has drain in place going for CT abd today denies fever weak and emaciated + Hep B sAg r/o cirrhosis r/o GI malignancy
[2017-07-20] MEDS ORDERED: Sodium Chloride 0.9% 100 ML ONE (15:28)
[2017-07-20] MEDS ORDERED: Iohexol 300 100 ML IJ ONE (15:28)
--- NOTE | 2017-07-20 17:19 | CT ---
PROCEDURE: CT scan abdomen pelvis dated 07/20/2017 HISTORY: Postoperative evaluation of small-bowel resection due to jejunal ulceration in a patient with a history of remote Louann-en-Y procedure. COMPARISON: Comparison made with CT scan 07/07/2017. TECHNIQUE: Contiguous axial images of the abdomen and pelvis performed following oral and intravenous injection of approximately of approximately 70 cc Omnipaque 300 oral contrast material. Additional 2 dimensional sagittal and coronal reformats generated. There is no evidence the intravenous contrast enhancement of the solid organs or intravascular compartment of which is likely due to contrast extravasation. Evaluation is therefore limited Radiation dose: Total exam DLP = 1044.[address] exam was performed using one or more of the following dose reduction techniques: Automated exposure control, adjustment of the mA and/or kV according to patient size, and/or use of iterative reconstruction technique. FINDINGS: LOWER THORAX: Large bilateral effusions and mild bibasilar atelectasis. . LIVER: Re- demonstrated is pneumobilia which was seen on the prior exam. GALLBLADDER AND BILE DUCTS: Postoperative changes of cholecystectomy PANCREAS: Pancreas is poorly delineated on this exam though re- demonstrated are changes of chronic pancreatitis SPLEEN: Unremarkable. No splenomegaly. ADRENALS: Adrenal glands also poorly delineated however the treatments exhibited normal appearance on the prior study. KIDNEYS AND URETERS: Previously noted bilateral renal cysts are poorly delineated due to the lack of circulating intravenous contrast material. BLADDER: Urinary bladder is collapsed about an in situ unclamped Russell catheter. Urinary bladder wall is thickened due to collapse. The possibility of a cystitis not excluded. Note that the inferior margin of the urinary bladder is difficult to evaluate due to significant crossing streak and beam hardening artifact arising from bilateral total hip replacements. Suspect small amount of air within the urinary bladder of likely due to instrumentation REPRODUCTIVE: Prostate gland is also partially obscured due to streak and beam hardening artifact arising from aforementioned total hip replacements. APPENDIX: The appendix is not seen with complete certainty on this study and together with the abdominal ascites and significant constipation - fecal impaction changes evaluation for acute appendicitis is quite limited. . Clinical correlation recommended BOWEL: Evaluation of the bowel is limited due to incomplete opacification. Apparent in situ NGT. Oral contrast material is seen within multiple loops of small bowel however there is no evidence to suggest a contrast extravasation at this time. Large amount of stool is seen throughout the colon consistent with fecal marked fecal retention/constipation - fecal impaction . PERITONEUM: There is a moderate amount of abdominal and pelvic ascites with a small amount of residual free intraperitoneal air. . Note that the abdominal ascites appears less dense than the prior exam Metallic skin closure steffi along the mid anterior abdominal wall. Diffuse anasarca with fairly significant scrotal edema. LYMPH NODES: Evaluation for adenopathy is quite limited due to abdominal ascites. VASCULATURE: Partially calcified atherosclerotic plaque changes again seen along the abdominal aorta and iliac arteries. In situ IVC filter. BONES: No fracture or destructive lesion. OTHER FINDINGS: None. IMPRESSION: Note that this is a limited examination due to the lack of circulating intravenous contrast material as indicated in the technique section of this report the above. Large bilateral effusions and bibasilar atelectasis. Status post partial resection of the jejunum due to perforated jejunal ulcer. Apparent cholecystectomy. . Multiple metallic clips in the right parasagittal and mid upper abdomen consistent with prior Louann-en-Y procedure. Evaluation of the bowel is limited due to incomplete opacification however oral contrast material opacifies the distal loops of small bowel with no definitive radiographic evidence of acute contrast extravasation. Findings consistent with significant constipation - fecal impaction. Residual of moderate amount of abdominal ascites which appears less dense compared the prior exam. Small amount of free intraperitoneal air felt be postoperative in nature. Status post cholecystectomy. Persistent pneumobilia present. In situ Russell catheter with small amount of air in the urinary bladder felt to be secondary to instrumentation. Note these findings were discussed with ICU physician Dr. Pool at approximately 4:50 p.m. with written down and read back verification.
--- NOTE | 2017-07-20 19:48 | CP.PCM.PN ---
Subjective - Date & Time of Evaluation Date of Evaluation: 07/20/17 Time of Evaluation: 18:00 - Subjective Subjective: Appears fatigued, has abdominal pain. Objective - Vital Signs/Intake and Output Vital Signs (last 24 hours): Temp Pulse Resp BP Pulse Ox 98.4 F 74 15 92/60 L 100 07/20/17 16:00 07/20/17 18:00 07/20/17 18:00 07/20/17 18:00 07/20/17 18:00 Intake and Output: 07/20/17 07/21/17 18:59 06:59 Intake Total 1720 Output Total 700 Balance 1020 - Medications Medications: Current Medications Acetaminophen (Tylenol 325mg Tab) 650 mg PO Q4 PRN PRN Reason: Pain, moderate (4-7) Diltiazem HCl (Cardizem) 60 mg PO Q8 [facility] Last Admin: 07/20/17 16:37 Dose: 60 mg Furosemide (Lasix) 20 mg IVP DAILY [facility] Last Admin: 07/20/17 08:26 Dose: 20 mg Hydromorphone HCl (Dilaudid) 1 mg IVP Q4 PRN PRN Reason: Pain, severe (8-10) Last Admin: 07/20/17 17:58 Dose: 1 mg Linezolid 600 mg in NS 300 ml (Zyvox 600mg/300ml Ns) 600 mg in 300 mls @ 300 mls/hr IVPB Q12 [facility] PRN Reason: Protocol Last Admin: 07/20/17 08:29 Dose: 300 mls/hr Amiodarone HCl 450 mg/ Sodium (Chloride) 259 mls @ 34.53 mls/hr IVPB .Q7H31M [facility]; 1 MG/MIN PRN Reason: Protocol Last Admin: 07/14/17 01:00 Dose: 34.53 mls/hr Cefepime HCl 1 gm/ Dextrose 100 mls @ 100 mls/hr IVPB Q12 [facility] PRN Reason: Protocol Mupirocin (Bactroban Ointment) 1 applic TOP BID [facility] Last Admin: 07/20/17 16:36 Dose: 1 applic Octreotide Acetate (Sandostatin) 150 mcg SC Q8 [facility] Last Admin: 07/20/17 16:35 Dose: 150 mcg Ondansetron HCl (Zofran Inj) 4 mg IVP Q6H PRN PRN Reason: Nausea/Vomiting Last Admin: 07/17/17 05:26 Dose: 4 mg Potassium Chloride (Potassium Chloride Oral Soln) 20 meq PO BID [facility] Last Admin: 07/20/17 16:39 Dose: 20 meq Saccharomyces Boulardii (Florastor) 250 mg PO BID [facility] Last Admin: 07/20/17 16:38 Dose: 250 mg - Labs Labs: 07/19/17 05:14 07/19/17 05:14 PT 25.7 Seconds (9.8-13.1) H 07/16/17 06:31 INR 2.3 (0.9-1.2) H 07/16/17 06:31 APTT 53.6 Seconds (25.6-37.1) H 07/16/17 06:31 - Head Exam Head Exam: ATRAUMATIC - Eye Exam Eye Exam: Normal appearance - ENT Exam ENT Exam: Mucous Membranes Dry - Respiratory Exam Respiratory Exam: NORMAL BREATHING PATTERN - Cardiovascular Exam Cardiovascular Exam: +S1, +S2 - GI/Abdominal Exam GI & Abdominal Exam: Normal Bowel Sounds Assessment and Plan (1) Pancytopenia Assessment & Plan: WBC and H/H fairly stable no neutropenia platelets improved overall but slightly diminished most recently no DIC suspect sepsis related Status: Acute
[2017-07-20] MEDS: Cefepime 1 GM in Dextrose 5% In Water 100 ML IVPB SCH (22:17)
--- NOTE | 2017-07-21 06:21 | CP.PCM.PN ---
<Antonio Soares - Last Filed: 07/21/17 11:15> Subjective - Date & Time of Evaluation Date of Evaluation: 07/21/17 Time of Evaluation: 06:30 - Subjective Subjective: General surgery Note for Dr. Worthy Patient seen and examined at bedside. No acute event overnight. Patient still complaining of epigastric pain. Left drain had 290 cc/12 hrs of dark brown/red output while right drain had 480cc/12hrs of straw colored output. NGT inserted. Patient transferred back to ICU care due to tachycardia in 150s. Denies fever/ chills, nausea/vomiting, SOB, chest pain, diarrhea. Objective - Vital Signs/Intake and Output Vital Signs (last 24 hours): Temp Pulse Resp BP Pulse Ox 98.4 F 91 H 17 101/58 L 100 07/21/17 04:00 07/21/17 04:00 07/21/17 04:00 07/21/17 04:00 07/21/17 04:00 Intake and Output: 07/20/17 07/21/17 18:59 06:59 Intake Total 1720 308 Output Total 700 100 Balance 1020 208 - Medications Medications: Current Medications Acetaminophen (Tylenol 325mg Tab) 650 mg PO Q4 PRN PRN Reason: Pain, moderate (4-7) Diltiazem HCl (Cardizem) 60 mg PO Q8 [facility] Last Admin: 07/21/17 02:06 Dose: 60 mg Furosemide (Lasix) 20 mg IVP DAILY [facility] Last Admin: 07/20/17 08:26 Dose: 20 mg Linezolid 600 mg in NS 300 ml (Zyvox 600mg/300ml Ns) 600 mg in 300 mls @ 300 mls/hr IVPB Q12 [facility] PRN Reason: Protocol Last Admin: 07/20/17 20:08 Dose: 300 mls/hr Amiodarone HCl 450 mg/ Sodium (Chloride) 259 mls @ 34.53 mls/hr IVPB .Q7H31M [facility]; 1 MG/MIN PRN Reason: Protocol Last Admin: 07/14/17 01:00 Dose: 34.53 mls/hr Cefepime HCl 1 gm/ Dextrose 100 mls @ 100 mls/hr IVPB Q12 [facility] PRN Reason: Protocol Last Admin: 03/23/18 22:17 Dose: 100 mls/hr Morphine Sulfate (Morphine) 6 mg IVP Q4 PRN PRN Reason: Pain, severe (8-10) Last Admin: 07/21/17 02:02 Dose: 6 mg Mupirocin (Bactroban Ointment) 1 applic TOP BID [facility] Last Admin: 07/20/17 16:36 Dose: 1 applic Octreotide Acetate (Sandostatin) 150 mcg SC Q8 [facility] Last Admin: 07/21/17 01:00 Dose: 150 mcg Ondansetron HCl (Zofran Inj) 4 mg IVP Q6H PRN PRN Reason: Nausea/Vomiting Last Admin: 07/17/17 05:26 Dose: 4 mg Potassium Chloride (Potassium Chloride Oral Soln) 20 meq PO BID [facility] Last Admin: 07/20/17 16:39 Dose: 20 meq Saccharomyces Boulardii (Florastor) 250 mg PO BID [facility] Last Admin: 07/20/17 16:38 Dose: 250 mg - Labs Labs: 07/19/17 05:14 07/19/17 05:14 PT 25.7 Seconds (9.8-13.1) H 07/16/17 06:31 INR 2.3 (0.9-1.2) H 07/16/17 06:31 APTT 53.6 Seconds (25.6-37.1) H 07/16/17 06:31 - Constitutional Appears: No Acute Distress, Cachectic - Head Exam Head Exam: ATRAUMATIC, NORMOCEPHALIC - Eye Exam Eye Exam: Normal appearance - ENT Exam ENT Exam: Mucous Membranes Moist Additional comments: NGT in place - Respiratory Exam Respiratory Exam: NORMAL BREATHING PATTERN. absent: Accessory Muscle Use, Respiratory Distress - Cardiovascular Exam Cardiovascular Exam: Tachycardia - GI/Abdominal Exam GI & Abdominal Exam: Soft, Tenderness (epigastric). absent: Distended, Rigid Additional comments: incision with mild erythema, steffi still in place with iodoform packing - Extremities Exam Extremities Exam: Normal Capillary Refill - Neurological Exam Neurological Exam: Alert, Awake - Psychiatric Exam Psychiatric exam: Normal Affect, Normal Mood - Skin Skin Exam: Dry, Warm Assessment and Plan - Assessment and Plan (Free Text) Plan: 72M s/p exploratory laparotomy with findings of perforated viscous and Small bowel resection with anastomosis POD#13 -NPO -D5 1/2NS with 40 mEq KCL -NGT to suction -I's & O's -Monitor and replete electrolytes as needed -Platelet count 30 -Analgesics/Anti-emetics PRN -Monitor drain output -Encourage OOB -Medical management as per ICU -Discussed with Dr. Zaynab Soares PGY1 <Mook Worthy - Last Filed: 07/22/17 16:11> Objective - Vital Signs/Intake and Output Vital Signs (last 24 hours): Temp Pulse Resp BP Pulse Ox 98.4 F 94 H 21 107/54 L 100 07/22/17 12:00 07/22/17 16:01 07/22/17 14:00 07/22/17 16:01 07/22/17 14:00 Intake and Output: 07/22/17 07/22/17 06:59 18:59 Intake Total 730 660 Output Total 1040 Balance -310 660 - Medications Medications: Current Medications Acetaminophen (Tylenol 325mg Tab) 650 mg PO Q4 PRN PRN Reason: Pain, moderate (4-7) Diltiazem HCl (Cardizem) 60 mg PO Q8 [facility] Last Admin: 07/22/17 16:01 Dose: Not Given Furosemide (Lasix) 20 mg IVP DAILY [facility] Last Admin: 07/22/17 09:03 Dose: 20 mg Amiodarone HCl 450 mg/ Sodium (Chloride) 259 mls @ 34.53 mls/hr IVPB .Q7H31M [facility]; 1 MG/MIN PRN Reason: Protocol Last Admin: 07/14/17 01:00 Dose: 34.53 mls/hr Meropenem 1 gm/ Sodium (Chloride) 100 mls @ 100 mls/hr IVPB Q8 [facility] PRN Reason: Protocol Last Admin: 07/22/17 16:08 Dose: 100 mls/hr Micafungin Sodium 100 mg/ (Sodium Chloride) 100 mls @ 100 mls/hr IVPB DAILY [facility] PRN Reason: Protocol Last Admin: 07/22/17 14:48 Dose: 100 mls/hr Morphine Sulfate (Morphine) 6 mg IVP Q4 PRN PRN Reason: Pain, severe (8-10) Last Admin: 07/22/17 14:48 Dose: 6 mg Mupirocin (Bactroban Ointment) 1 applic TOP BID [facility] Last Admin: 07/22/17 16:09 Dose: 1 applic Octreotide Acetate (Sandostatin) 300 mcg SC Q8 [facility] Ondansetron HCl (Zofran Inj) 4 mg IVP Q6H PRN PRN Reason: Nausea/Vomiting Last Admin: 07/17/17 05:26 Dose: 4 mg Potassium Chloride (Potassium Chloride Oral Soln) 20 meq PO BID [facility] Last Admin: 07/22/17 16:01 Dose: Not Given Saccharomyces Boulardii (Florastor) 250 mg PO BID [facility] Last Admin: 07/22/17 16:01 Dose: Not Given - Labs Labs: 07/22/17 05:20 07/22/17 05:20 PT 15.9 Seconds (9.8-13.1) H 07/22/17 05:20 INR 1.4 (0.9-1.2) H 07/22/17 05:20 APTT 39.1 Seconds (25.6-37.1) H 07/22/17 05:20 Attending/Attestation - Attestation I have fully participated in the care of the patient.: Yes I have reviewed all pertinent clinical information, including history, physical exam and plan: Yes Notes (Text): Repeat CT scan reviewed C.w octreotide NPO, IVF, NG to LIS TPN/PPN IV antibiotics c.w current mx Plan d/w pt in detail Risk and benefit explained in detail.
[2017-07-21 06:29] LABS: BASO % 0.6 % (0.0-2.0); EOS # 0.1 K/uL (0.0-0.7); EOS % 4.7 % (0.0-4.0); HEMOGLOBIN 9.5 g/dL (12.0-18.0); LYMPH # 0.6 K/uL (1.0-4.3); LYMPH % 28.6 % (20.0-40.0); MEAN CELL VOLUME 97.8 fl (80.0-94.0); MEAN CORPUSCULAR HGB CONC 33.7 g/dL (33.0-37.0); MEAN PLATELET VOLUME 7.6 fl (7.2-11.7); MONO # 0.1 K/uL (0.0-0.8); MONO % 5.8 % (0.0-10.0); NEUT # 1.2 K/uL (1.8-7.0); NEUT % 60.3 % (50.0-75.0); RBC 2.87 Mil/uL (4.40-5.90); RED CELL DISTRIBUTION WIDTH 16.3 % (11.5-14.5)
[2017-07-21 06:43] LABS: BLOOD UREA NITROGEN 25 mg/dl (9-20); CALCIUM 6.9 mg/dL (8.4-10.2); GFR AFRICAN-AMERICAN > 60; GFR NON-AFRICAN AMERICAN > 60
[2017-07-21] MEDS: Potassium Chloride 20 mEq/15 ml LIQ UD PO SCH ×2 (08:46→16:46)
[2017-07-21] MEDS: Saccharomyces Boulardi 250 mg Cap PO SCH ×2 (08:46→16:46)
[2017-07-21] MEDS: Cefepime 1 GM in Dextrose 5% In Water 100 ML IVPB SCH ×2 (08:47→20:13)
[2017-07-21] MEDS: Morphine 4 MG/ML VIAL IVP PRN ×2 (09:30→20:27)
[2017-07-21] MEDS ORDERED: Chlorhexidine Gluconate 1 APPL/PKT TP ONE (09:59)
[2017-07-21] MEDS: NS IVPB SCH (10:00)
[2017-07-21] MEDS: LINEZOLID IVPB SCH (10:00)
[2017-07-21] MEDS ORDERED: Potassium Chl 40 mEq in D5-1/2 1,000 ML IV SCH (10:45)
--- NOTE | 2017-07-21 11:13 | CP.CCUPN ---
CCU Subjective - Physician Review Events Since Last Encounter (Free Text): 07/21/17 11:11 Awake and responsive, had episode to rapid afib 150/min , was given 10 mg IV cardizem , HR slowed down to 108 /m and stable now, was on PO cardizem, but now is NPO, BP has been stable, CCU Objective - Vital Signs / Intake & Output Vital Signs (Last 4 hours): Vital Signs Temp Pulse Resp BP Pulse Ox 07/21/17 10:35 152 H 106/64 96 07/21/17 08:46 111/60 07/21/17 08:45 105 H 111/60 07/21/17 08:00 99.7 F H 105 H 21 111/60 100 Intake and Output (Last 8hrs): Intake & Output 07/20/17 07/21/17 07/21/17 22:59 06:59 14:59 Intake Total 622 8 Output Total 200 1270 Balance 422 -1262 Intake: IV 22 8 Intake, Piggyback 300 Oral 300 Output: Drainage 770 Left 290 Right 480 Urine 200 500 Urethral (Russell) 200 500 Other: # Bowel Movements 1 - Physical Exam Narrative Physical Exam (Free Text): 07/21/17 11:13 P/E Neck: No JVD Lungs: No JVD Ext: +1 edema Heart: S1S2 rapid, irregular Neuro: no focal signs Head: Positive for: Normocephalic Pupils: Positive for: PERRL Conjunctiva: Negative for: Icteric Mouth: Positive for: Moist Mucous Membranes Neck: Negative for: JVD Respiratory/Chest: Positive for: Clear to Auscultation, Decreased Breath Sounds. Negative for: Accessory Muscle Use, Wheezes, Rhonchi Cardiovascular: Positive for: Irregular Rhythm, Tachycardic. Negative for: Murmurs, Rub Abdomen: Positive for: Tenderness. Negative for: Distention, Normal Bowel Sounds, Rebound, Guarding, Mass/Organomegaly Lower Extremity: Positive for: NORMAL PULSES. Negative for: CALF TENDERNESS, Cyanosis Neurological: Positive for: Motor Func Grossly Intact, Normal Sensory Function Skin: Positive for: Warm, Dry. Negative for: Rashes Psychiatric: Positive for: Alert, Oriented x 3 - Medications Active Medications: Active Medications Generic Name Dose Route Start Last Admin Trade Name Freq PRN Reason Stop Dose Admin Acetaminophen 650 mg 07/13/17 07:49 Tylenol 325mg Tab PO Q4 PRN Pain, moderate (4-7) Diltiazem HCl 60 mg 07/15/17 17:00 07/21/17 08:45 Cardizem PO 60 mg Q8 [facility] Administration Furosemide 20 mg 07/14/17 09:00 07/21/17 08:46 Lasix IVP 20 mg DAILY [facility] Administration Linezolid 600 mg in NS 300 ml 600 mg in 300 mls @ 300 mls/hr 07/13/17 11:00 07/20/17 20:08 Zyvox 600mg/300ml Ns IVPB 300 mls/hr Q12 [facility] Administration Protocol Amiodarone HCl 450 mg/ Sodium 259 mls @ 34.53 mls/hr 07/13/17 15:45 07/14/17 01:00 Chloride IVPB 34.53 mls/hr .Q7H31M [facility] Administration Protocol 1 MG/MIN Cefepime HCl 1 gm/ Dextrose 100 mls @ 100 mls/hr 07/20/17 21:00 07/21/17 08: 47 IVPB 100 mls/hr Q12 [facility] Administration Protocol Potassium Chloride/Dextrose/Sod Cl 1,000 mls @ 100 mls/hr 07/21/17 10:45 Potassium Chl 40 Meq In D5-1/2ns IV 07/22/17 10:37 .Q10H [facility] Morphine Sulfate 6 mg 07/21/17 09:30 07/21/17 09:30 Morphine IVP 6 mg Q4 PRN Administration Pain, severe (8-10) Mupirocin 1 applic 07/09/17 20:15 07/21/17 08:45 Bactroban Ointment TOP 1 applic BID [facility] Administration Octreotide Acetate 150 mcg 07/19/17 09:27 07/21/17 08:46 Sandostatin SC 150 mcg Q8 [facility] Administration Ondansetron HCl 4 mg 07/07/17 23:32 07/17/17 05:26 Zofran Inj IVP 4 mg Q6H PRN Administration Nausea/Vomiting Potassium Chloride 20 meq 07/16/17 17:00 07/21/17 08:46 Potassium Chloride Oral Soln PO 20 meq BID [facility] Administration Saccharomyces Boulardii 250 mg 07/13/17 17:00 07/21/17 08:46 Florastor PO 250 mg BID [facility] Administration - Patient Studies Lab Studies: Microbiology Studies 07/18/17 12:29 Gram Stain - Final Abdomen Wound Culture - Final Bessy Lusitaniae Lab Studies 07/21/17 07/21/17 Range/Units 05:30 05:30 WBC 2.0 L* (4.8-10.8) K/uL RBC 2.87 L (4.40-5.90) Mil/uL Hgb 9.5 L (12.0-18.0) g/dL Hct 28.1 L (35.0-51.0) % MCV 97.8 H D (80.0-94.0) fl MCH 33.0 H (27.0-31.0) pg MCHC 33.7 (33.0-37.0) g/dL RDW 16.3 H (11.5-14.5) % Plt Count 30 L* D (130-400) K/uL MPV 7.6 (7.2-11.7) fl Neut % (Auto) 60.3 (50.0-75.0) % Lymph % (Auto) 28.6 (20.0-40.0) % Benzie % (Auto) 5.8 (0.0-10.0) % Eos % (Auto) 4.7 H (0.0-4.0) % Baso % (Auto) 0.6 (0.0-2.0) % Neut # (Auto) 1.2 L (1.8-7.0) K/uL Lymph # (Auto) 0.6 L (1.0-4.3) K/uL Benzie # (Auto) 0.1 (0.0-0.8) K/uL Eos # (Auto) 0.1 (0.0-0.7) K/uL Baso # (Auto) 0.0 (0.0-0.2) K/uL Sodium 132 (132-148) mmol/l Potassium 4.0 (3.6-5.0) MMOL/L Chloride 101 (98-107) mmol/L Carbon Dioxide 22 (22-30) mmol/L Anion Gap 13 (10-20) BUN 25 H (9-20) mg/dl Creatinine 1.0 (0.8-1.5) mg/dl Est GFR ( Amer) > 60 Est GFR (Non-Af Amer) > 60 Random Glucose 136 H (75-110) mg/dL Calcium 6.9 L (8.4-10.2) mg/dL Laboratory Results - last 24 hr 07/21/17 07/21/17 05:30 05:30 WBC 2.0 L* RBC 2.87 L Hgb 9.5 L Hct 28.1 L MCV 97.8 H D MCH 33.0 H MCHC 33.7 RDW 16.3 H Plt Count 30 L* D MPV 7.6 Neut % (Auto) 60.3 Lymph % (Auto) 28.6 Benzie % (Auto) 5.8 Eos % (Auto) 4.7 H Baso % (Auto) 0.6 Neut # (Auto) 1.2 L Lymph # (Auto) 0.6 L Benzie # (Auto) 0.1 Eos # (Auto) 0.1 Baso # (Auto) 0.0 Sodium 132 Potassium 4.0 Chloride 101 Carbon Dioxide 22 Anion Gap 13 BUN 25 H Creatinine 1.0 Est GFR ( Amer) > 60 Est GFR (Non-Af Amer) > 60 Random Glucose 136 H Calcium 6.9 L EKG/Cardiology Studies: Cardiology / EKG Studies 07/21/17 ELECTROCARDIOGRAM Stat Comment: Mode Of Transportation: Reason For Exam: tachycardia 150s Isolation: Contact Fingerstick Blood Sugar Results: 165 Critical Care Progress Note - Nutrition Nutrition: Nutrition Category Date Time Status NPO Diet [DIET] Diets 07/21/17 Breakfast Active Assessment/Plan - Assessment and Plan (Free Text) Assessment: ssessment/Plan (1) s/p surgery for perforated bowel: Current Visit: Yes Status: Acute Priority: High Comment: S/P Laprotomy, for perforated bowel Lots of secretion, sugery made him NPO today, TPN to be started once had line, surgery wants to hold on TLC , as platlets are low (2) Atrial fibrillation Current Visit: Yes Status: Acute Priority: High Comment: Rate was high this AM, given cardizem 10 mg IVP, pt isNPO now, will give metoprol 5 mg Q 6 H cardiology following No anticoagulants for time being due to thrombocytopenia (3) COPD (chronic obstructive pulmonary disease) Current Visit: Yes Status: Acute (4) Pancytopenia Current Visit: No Status: Acute Comment: neutropenia: WBC 2.0 Hb stable : 9.5 platelets lower today: 30 K, heamatology f/u. No evidance of actie bleed (5) Hypokalemia Improved 6-Malnutrition: TPN , when has line, will stat IVF with D5w and kcl meanwhile .
--- NOTE | 2017-07-21 11:14 | RAD ---
HISTORY: NGT placement. Interval removal intraluminal right IJ central line COMPARISON: No prior. FINDINGS: In situ NGT, tip of which appears to coiled upon itself within the fundus of the stomach. LUNGS: Persistent but improved bibasilar likely representing bilateral effusions with atelectasis and or infiltrates. Fibrotic/scarring changes right upper lobe again noted with right apical pleural thickening. PLEURA: As above. No pneumothorax apparent. CARDIOVASCULAR: Heart size enlarged OSSEOUS STRUCTURES: No significant abnormalities. VISUALIZED UPPER ABDOMEN: Re- demonstrated are multiple metallic clips seen in the upper abdomen OTHER FINDINGS: None. IMPRESSION: NGT in good position. Persistent but improved bibasilar opacities likely representing bilateral effusions with atelectasis and or infiltrates
[2017-07-21] MEDS: Potassium Chl 40 mEq in D5-1/2 1,000 ML IV SCH (11:40)
--- NOTE | 2017-07-21 22:37 | CP.PCM.PN ---
Subjective - Date & Time of Evaluation Date of Evaluation: 07/21/17 Time of Evaluation: 18:00 - Subjective Subjective: Has abdominal pain Objective - Vital Signs/Intake and Output Vital Signs (last 24 hours): Temp Pulse Resp BP Pulse Ox 98.7 F 91 H 21 90/52 L 95 07/21/17 16:00 07/21/17 22:00 07/21/17 22:00 07/21/17 22:00 07/21/17 22:00 Intake and Output: 07/21/17 07/22/17 18:59 06:59 Intake Total 1060 170 Output Total 1830 70 Balance -770 100 - Medications Medications: Current Medications Acetaminophen (Tylenol 325mg Tab) 650 mg PO Q4 PRN PRN Reason: Pain, moderate (4-7) Diltiazem HCl (Cardizem) 60 mg PO Q8 [facility] Last Admin: 07/21/17 16:46 Dose: Not Given Furosemide (Lasix) 20 mg IVP DAILY [facility] Last Admin: 07/21/17 08:46 Dose: 20 mg Amiodarone HCl 450 mg/ Sodium (Chloride) 259 mls @ 34.53 mls/hr IVPB .Q7H31M [facility]; 1 MG/MIN PRN Reason: Protocol Last Admin: 07/14/17 01:00 Dose: 34.53 mls/hr Cefepime HCl 1 gm/ Dextrose 100 mls @ 100 mls/hr IVPB Q12 [facility] PRN Reason: Protocol Last Admin: 07/21/17 20:13 Dose: 100 mls/hr Potassium Chloride/Dextrose/Sod Cl (Potassium Chl 40 Meq In D5-1/2ns) 1,000 mls @ 70 mls/hr IV .[id number] [facility] Stop: 07/22/17 10:37 Last Admin: 07/21/17 11:40 Dose: 70 mls/hr Morphine Sulfate (Morphine) 6 mg IVP Q4 PRN PRN Reason: Pain, severe (8-10) Last Admin: 07/21/17 20:27 Dose: 6 mg Mupirocin (Bactroban Ointment) 1 applic TOP BID [facility] Last Admin: 07/21/17 16:47 Dose: 1 applic Octreotide Acetate (Sandostatin) 150 mcg SC Q8 [facility] Last Admin: 07/21/17 16:47 Dose: 150 mcg Ondansetron HCl (Zofran Inj) 4 mg IVP Q6H PRN PRN Reason: Nausea/Vomiting Last Admin: 07/17/17 05:26 Dose: 4 mg Potassium Chloride (Potassium Chloride Oral Soln) 20 meq PO BID [facility] Last Admin: 07/21/17 16:46 Dose: Not Given Saccharomyces Boulardii (Florastor) 250 mg PO BID [facility] Last Admin: 07/21/17 16:46 Dose: Not Given - Labs Labs: 07/21/17 05:30 07/21/17 05:30 PT 25.7 Seconds (9.8-13.1) H 07/16/17 06:31 INR 2.3 (0.9-1.2) H 07/16/17 06:31 APTT 53.6 Seconds (25.6-37.1) H 07/16/17 06:31 - Head Exam Head Exam: ATRAUMATIC - Eye Exam Eye Exam: Normal appearance - ENT Exam ENT Exam: Mucous Membranes Dry - Respiratory Exam Respiratory Exam: NORMAL BREATHING PATTERN - Cardiovascular Exam Cardiovascular Exam: +S1, +S2 - GI/Abdominal Exam GI & Abdominal Exam: Normal Bowel Sounds Assessment and Plan (1) Pancytopenia Assessment & Plan: WBC and platelet downtrending mild neutropenia H/H fairly stable repeat coags and fibrinogen agree with stopping Zyvox as can worsen cytopenias suspect sepsis related Status: Acute
[2017-07-22] MEDS: Morphine 4 MG/ML VIAL IVP PRN ×5 (00:10→21:03)
[2017-07-22] MEDS: Potassium Chl 40 mEq in D5-1/2 1,000 ML IV SCH (02:00)
[2017-07-22 06:05] LABS: BASO % 0.4 % (0.0-2.0); EOS # 0.1 K/uL (0.0-0.7); EOS % 2.9 % (0.0-4.0); HEMOGLOBIN 9.4 g/dL (12.0-18.0); LYMPH # 0.7 K/uL (1.0-4.3); LYMPH % 21.9 % (20.0-40.0); MEAN CELL VOLUME 99.4 fl (80.0-94.0); MEAN CORPUSCULAR HEMOGLOBIN 33.5 pg (27.0-31.0); MEAN CORPUSCULAR HGB CONC 33.7 g/dL (33.0-37.0); MEAN PLATELET VOLUME 8.4 fl (7.2-11.7); MONO # 0.1 K/uL (0.0-0.8); MONO % 4.7 % (0.0-10.0); NEUT # 2.2 K/uL (1.8-7.0); NEUT % 70.1 % (50.0-75.0); NRBC % 0.8 % (0.0-0.0); RBC 2.8 Mil/uL (4.40-5.90); RED CELL DISTRIBUTION WIDTH 16.1 % (11.5-14.5)
[2017-07-22 06:15] LABS: INR 1.4 (0.9-1.2); PARTIAL THROMBOPLASTIN TIME 39.1 Seconds (25.6-37.1); PROTHROMBIN TIME 15.9 Seconds (9.8-13.1)
[2017-07-22 06:18] LABS: ALB/GLOB RATIO 0.6 (1.0-2.1); ALBUMIN 1.7 g/dL (3.5-5.0); ALT/SGPT 30 U/L (21-72); AST/SGOT 11 U/L (17-59); BLOOD UREA NITROGEN 27 mg/dl (9-20); CALCIUM 6.9 mg/dL (8.4-10.2); GFR AFRICAN-AMERICAN > 60; GFR NON-AFRICAN AMERICAN > 60
--- NOTE | 2017-07-22 08:47 | CP.PCM.PN ---
<Antonio Soares - Last Filed: 07/22/17 10:04> Subjective - Date & Time of Evaluation Date of Evaluation: 07/22/17 Time of Evaluation: 06:40 - Subjective Subjective: General surgery Note for Dr. Worthy Patient seen and examined at bedside. No acute event overnight. Patient still has epigastric pain. NGT is in place. Left drain had 300 cc/12 hrs of output while right drain had 40 cc/12hrs of output. Tachycardia has resolved with HR in 90s now. Denies fever/chills, nausea/vomiting, SOB, chest pain, diarrhea. Objective - Vital Signs/Intake and Output Vital Signs (last 24 hours): Temp Pulse Resp BP Pulse Ox 98.6 F 94 H 19 101/66 100 07/22/17 04:00 07/22/17 06:00 07/22/17 06:00 07/22/17 06:00 07/22/17 06:00 Intake and Output: 07/22/17 07/22/17 06:59 18:59 Intake Total 730 Output Total 1040 Balance -310 - Medications Medications: Current Medications Acetaminophen (Tylenol 325mg Tab) 650 mg PO Q4 PRN PRN Reason: Pain, moderate (4-7) Diltiazem HCl (Cardizem) 60 mg PO Q8 [facility] Last Admin: 07/22/17 00:07 Dose: Not Given Furosemide (Lasix) 20 mg IVP DAILY [facility] Last Admin: 07/21/17 08:46 Dose: 20 mg Amiodarone HCl 450 mg/ Sodium (Chloride) 259 mls @ 34.53 mls/hr IVPB .Q7H31M [facility]; 1 MG/MIN PRN Reason: Protocol Last Admin: 07/14/17 01:00 Dose: 34.53 mls/hr Cefepime HCl 1 gm/ Dextrose 100 mls @ 100 mls/hr IVPB Q12 [facility] PRN Reason: Protocol Last Admin: 07/21/17 20:13 Dose: 100 mls/hr Potassium Chloride/Dextrose/Sod Cl (Potassium Chl 40 Meq In D5-1/2ns) 1,000 mls @ 70 mls/hr IV .[id number] [facility] Stop: 07/22/17 10:37 Last Admin: 07/22/17 02:00 Dose: 70 mls/hr Morphine Sulfate (Morphine) 6 mg IVP Q4 PRN PRN Reason: Pain, severe (8-10) Last Admin: 07/22/17 04:10 Dose: 6 mg Mupirocin (Bactroban Ointment) 1 applic TOP BID [facility] Last Admin: 07/21/17 16:47 Dose: 1 applic Octreotide Acetate (Sandostatin) 150 mcg SC Q8 [facility] Last Admin: 07/22/17 00:11 Dose: 150 mcg Ondansetron HCl (Zofran Inj) 4 mg IVP Q6H PRN PRN Reason: Nausea/Vomiting Last Admin: 07/17/17 05:26 Dose: 4 mg Potassium Chloride (Potassium Chloride Oral Soln) 20 meq PO BID [facility] Last Admin: 07/21/17 16:46 Dose: Not Given Saccharomyces Boulardii (Florastor) 250 mg PO BID [facility] Last Admin: 07/21/17 16:46 Dose: Not Given - Labs Labs: 07/22/17 05:20 07/22/17 05:20 PT 15.9 Seconds (9.8-13.1) H 07/22/17 05:20 INR 1.4 (0.9-1.2) H 07/22/17 05:20 APTT 39.1 Seconds (25.6-37.1) H 07/22/17 05:20 - Constitutional Appears: No Acute Distress, Cachectic - Head Exam Head Exam: absent: ATRAUMATIC, NORMOCEPHALIC - Eye Exam Eye Exam: Normal appearance - ENT Exam ENT Exam: Mucous Membranes Dry - Respiratory Exam Respiratory Exam: NORMAL BREATHING PATTERN - Cardiovascular Exam Cardiovascular Exam: REGULAR RHYTHM - GI/Abdominal Exam GI & Abdominal Exam: Soft. absent: Distended, Rigid, Tenderness - Extremities Exam Additional comments: edema in upper extremities - Neurological Exam Neurological Exam: Alert, Awake - Psychiatric Exam Psychiatric exam: Flat Affect - Skin Skin Exam: Dry, Warm Assessment and Plan - Assessment and Plan (Free Text) Plan: 72M s/p exploratory laparotomy with findings of perforated viscous and Small bowel resection with anastomosis POD#14 -NPO -D5 1/2NS with 40 mEq KCL -NGT to suction -IV abx -Octreotide -I's & O's -Monitor and replete electrolytes as needed -Platelet count 23 -Analgesics/Anti-emetics PRN -Monitor drain output -Encourage OOB -Medical management as per ICU -Discussed with Dr. Zaynab Soares PGY1 <Mook Worthy - Last Filed: 07/23/17 21:18> Objective - Vital Signs/Intake and Output Vital Signs (last 24 hours): Temp Pulse Resp BP Pulse Ox 98.4 F 82 15 91/46 L 100 07/23/17 16:33 07/23/17 18:00 07/23/17 18:00 07/23/17 18:00 07/23/17 18:00 Intake and Output: 07/23/17 07/24/17 18:59 06:59 Intake Total 1202 Output Total 1312 Balance -110 - Medications Medications: Current Medications Acetaminophen (Tylenol 325mg Tab) 650 mg PO Q4 PRN PRN Reason: Pain, moderate (4-7) Diltiazem HCl (Cardizem) 60 mg PO Q8 [facility] Last Admin: 07/23/17 09:00 Dose: Not Given Furosemide (Lasix) 20 mg IVP DAILY [facility] Last Admin: 07/23/17 09:00 Dose: 20 mg Meropenem 1 gm/ Sodium (Chloride) 100 mls @ 100 mls/hr IVPB Q8 [facility] PRN Reason: Protocol Last Admin: 07/23/17 17:41 Dose: Not Given Micafungin Sodium 100 mg/ (Sodium Chloride) 100 mls @ 100 mls/hr IVPB DAILY [facility] PRN Reason: Protocol Last Admin: 07/23/17 09:04 Dose: 100 mls/hr Diltiazem HCl 100 mg/ Sodium (Chloride) 100 mls @ 5 mls/hr IV .Q20H [facility]; 5 MG/ HR PRN Reason: Protocol Stop: 07/24/17 03:48 Last Titration: 07/23/17 16:21 Dose: 0 mg/hr, 0 mls/hr Multivitamins/Vitamin C 10 ml/Chromium/Copper/Manganese/Zinc 3 ml/ Amino Acids/ Electrolytes/Dextrose 1,013 mls @ 45 mls/hr IV .[id number] [facility] Stop: 07/24/17 14:15 Last Admin: 07/23/17 17:00 Dose: Not Given Dextrose/Sodium Chloride (Dextrose 5%-0.45% Ns 500 Ml) 500 mls @ 100 mls/hr IV .Q5H [facility] Stop: 07/24/17 18:16 Morphine Sulfate (Morphine) 6 mg IVP Q4 PRN PRN Reason: Pain, severe (8-10) Last Admin: 07/23/17 16:58 Dose: 6 mg Mupirocin (Bactroban Ointment) 1 applic TOP BID [facility] Last Admin: 07/23/17 17:40 Dose: 1 applic Octreotide Acetate (Sandostatin) 300 mcg SC Q8@0500,1300,2100 [facility] Last Admin: 07/23/17 20:12 Dose: 300 mcg Potassium Chloride (Potassium Chloride Oral Soln) 20 meq PO BID [facility] Last Admin: 07/23/17 09:05 Dose: Not Given Saccharomyces Boulardii (Florastor) 250 mg PO BID [facility] Last Admin: 07/23/17 09:00 Dose: Not Given - Labs Labs: 07/23/17 04:45 07/23/17 04:45 PT 15.9 Seconds (9.8-13.1) H 07/22/17 05:20 INR 1.4 (0.9-1.2) H 07/22/17 05:20 APTT 39.1 Seconds (25.6-37.1) H 07/22/17 05:20 Attending/Attestation - Attestation I have fully participated in the care of the patient.: Yes I have reviewed all pertinent clinical information, including history, physical exam and plan: Yes Notes (Text): Pt is stable clinically C.w Octreotide PPN or TPN c.w IV antibitics Repeat Labs in am
[2017-07-22] MEDS: Saccharomyces Boulardi 250 mg Cap PO SCH ×2 (09:03→16:01)
[2017-07-22] MEDS: Potassium Chloride 20 mEq/15 ml LIQ UD PO SCH ×2 (09:04→16:01)
[2017-07-22] MEDS: Cefepime 1 GM in Dextrose 5% In Water 100 ML IVPB SCH (09:04)
[2017-07-22 10:02] LABS: WHITE BLOOD COUNT 3.1 K/uL (4.8-10.8)
--- NOTE | 2017-07-22 12:55 | CARD ---
APPROVED REPORT EKG Measurement Heart [id number] <Conclusion> Probable atrial fibrillation Low voltage QRS Nonspecific T wave abnormality Abnormal EKG Note: This EKG is of too poor quality to read correctly-recommend repeat
--- NOTE | 2017-07-22 13:39 | US ---
PROCEDURE: Bilateral lower extremity venous duplex Doppler. HISTORY: Weak pedal pulses COMPARISON: None available. TECHNIQUE: Bilateral common femoral, superficial femoral, popliteal and posterior tibial veins were evaluated. Flow was assessed with color Doppler, compressibility, assessment of phasic flow and augmentation response. FINDINGS: COMMON FEMORAL VEIN: Right CFV: Unremarkable. Left CFV: Unremarkable. SUPERFICIAL FEMORAL VEIN: Right SFV: Unremarkable. Left SFV: Unremarkable. POPLITEAL VEIN: Right Popliteal: Unremarkable. Left Popliteal: Unremarkable. POSTERIOR TIBIAL VEIN: Right PTV: Unremarkable. Left PTV: Unremarkable. OTHER FINDINGS: Mild on subcutaneous edema bilaterally. IMPRESSION: No evidence of deep venous thrombosis.
--- NOTE | 2017-07-22 13:59 | CP.PCM.PN ---
Subjective - Date & Time of Evaluation Date of Evaluation: 07/22/17 Time of Evaluation: 08:00 - Subjective Subjective: doing poorly weak bed bound with drains in place copious output from drains PLts low zyvox held poor prognosis Objective - Vital Signs/Intake and Output Vital Signs (last 24 hours): Temp Pulse Resp BP Pulse Ox 98.2 F 95 H 19 104/60 100 07/22/17 08:00 07/22/17 10:00 07/22/17 10:00 07/22/17 10:00 07/22/17 10:00 Intake and Output: 07/22/17 07/22/17 06:59 18:59 Intake Total 730 520 Output Total 1040 Balance -310 520 - Medications Medications: Current Medications Acetaminophen (Tylenol 325mg Tab) 650 mg PO Q4 PRN PRN Reason: Pain, moderate (4-7) Diltiazem HCl (Cardizem) 60 mg PO Q8 [facility] Last Admin: 07/22/17 09:02 Dose: Not Given Furosemide (Lasix) 20 mg IVP DAILY [facility] Last Admin: 07/22/17 09:03 Dose: 20 mg Amiodarone HCl 450 mg/ Sodium (Chloride) 259 mls @ 34.53 mls/hr IVPB .Q7H31M [facility]; 1 MG/MIN PRN Reason: Protocol Last Admin: 07/14/17 01:00 Dose: 34.53 mls/hr Cefepime HCl 1 gm/ Dextrose 100 mls @ 100 mls/hr IVPB Q12 [facility] PRN Reason: Protocol Last Admin: 07/22/17 09:04 Dose: 100 mls/hr Morphine Sulfate (Morphine) 6 mg IVP Q4 PRN PRN Reason: Pain, severe (8-10) Last Admin: 07/22/17 09:13 Dose: 6 mg Mupirocin (Bactroban Ointment) 1 applic TOP BID [facility] Last Admin: 07/22/17 09:02 Dose: 1 applic Octreotide Acetate (Sandostatin) 150 mcg SC Q8 [facility] Ondansetron HCl (Zofran Inj) 4 mg IVP Q6H PRN PRN Reason: Nausea/Vomiting Last Admin: 07/17/17 05:26 Dose: 4 mg Potassium Chloride (Potassium Chloride Oral Soln) 20 meq PO BID [facility] Last Admin: 07/22/17 09:04 Dose: Not Given Saccharomyces Boulardii (Florastor) 250 mg PO BID [facility] Last Admin: 07/22/17 09:03 Dose: Not Given - Labs Labs: 07/22/17 05:20 07/22/17 05:20 PT 15.9 Seconds (9.8-13.1) H 07/22/17 05:20 INR 1.4 (0.9-1.2) H 07/22/17 05:20 APTT 39.1 Seconds (25.6-37.1) H 07/22/17 05:20 - Constitutional Appears: Confused, Cachectic, Chronically Ill - Head Exam Head Exam: NORMOCEPHALIC - Eye Exam Eye Exam: absent: PERRL, Scleral icterus - ENT Exam ENT Exam: Mucous Membranes Dry - Neck Exam Neck Exam: absent: Lymphadenopathy - Respiratory Exam Respiratory Exam: Decreased Breath Sounds - Cardiovascular Exam Cardiovascular Exam: REGULAR RHYTHM - GI/Abdominal Exam GI & Abdominal Exam: Distended, Soft, Tenderness - Rectal Exam Rectal Exam: Deferred - Exam Exam: NORMAL INSPECTION - Extremities Exam Extremities Exam: absent: Pedal Edema - Back Exam Back Exam: absent: CVA tenderness (L), CVA tenderness (R) - Neurological Exam Neurological Exam: Alert, Awake, CN II-XII Intact - Psychiatric Exam Psychiatric exam: Depressed - Skin Skin Exam: Dry Assessment and Plan (1) Abdominal pain Status: Acute (2) COPD (chronic obstructive pulmonary disease) Status: Acute (3) Essential (primary) hypertension Status: Acute (4) Hx of atrial fibrillation, no current medication Status: Acute (5) Intestinal perforation Status: Acute (6) Perforated abdominal viscus Status: Acute (7) Sepsis Status: Acute - Assessment and Plan (Free Text) Assessment: ongoing peritomnitis r/o occult malignancy + Hep B
[2017-07-22] MEDS: Micafungin 100 MG in Sodium Chloride 0.9% 100 ML IVPB SCH (14:48)
[2017-07-22] MEDS ORDERED: Octreotide 500 mcg/ml Inj SC SCH (15:59)
[2017-07-22] MEDS: Meropenem 1 GM in Sodium Chloride 0.9% 100 ML IVPB SCH (16:08)
[2017-07-22] MEDS ORDERED: Potassium Ch 20mEq in D5-1/2NS 1,000 ML IV SCH (20:15)
[2017-07-22] MEDS: Octreotide 500 mcg/ml Inj SC SCH (21:03)
--- NOTE | 2017-07-22 21:46 | CP.PCM.PN ---
Subjective - Date & Time of Evaluation Date of Evaluation: 07/21/17 Time of Evaluation: 12:30 - Subjective Subjective: Continues to have a lot of output from drains. Afebrile but has persistent abdominal pain Still with ext swelling and scrotal swelling Had an episode of rapid afib and responded well to cardizem. Noted drop in WBC and platelet. Objective - Vital Signs/Intake and Output Vital Signs (last 24 hours): Temp Pulse Resp BP Pulse Ox 97.8 F 91 H 18 111/60 100 07/22/17 16:00 07/22/17 18:00 07/22/17 18:00 07/22/17 18:00 07/22/17 18:00 Intake and Output: 07/22/17 07/23/17 18:59 06:59 Intake Total 940 Output Total 1165 Balance -225 - Medications Medications: Current Medications Acetaminophen (Tylenol 325mg Tab) 650 mg PO Q4 PRN PRN Reason: Pain, moderate (4-7) Diltiazem HCl (Cardizem) 60 mg PO Q8 [facility] Last Admin: 07/22/17 16:01 Dose: Not Given Furosemide (Lasix) 20 mg IVP DAILY [facility] Last Admin: 07/22/17 09:03 Dose: 20 mg Amiodarone HCl 450 mg/ Sodium (Chloride) 259 mls @ 34.53 mls/hr IVPB .Q7H31M [facility]; 1 MG/MIN PRN Reason: Protocol Last Admin: 07/14/17 01:00 Dose: 34.53 mls/hr Meropenem 1 gm/ Sodium (Chloride) 100 mls @ 100 mls/hr IVPB Q8 [facility] PRN Reason: Protocol Last Admin: 07/22/17 16:08 Dose: 100 mls/hr Micafungin Sodium 100 mg/ (Sodium Chloride) 100 mls @ 100 mls/hr IVPB DAILY [facility] PRN Reason: Protocol Last Admin: 07/22/17 14:48 Dose: 100 mls/hr Potassium Chloride/Dextrose/Sod Cl (Potassium Chl 20 Meq In D5-1/2ns) 1,000 mls @ 100 mls/hr IV .Q10H [facility] Stop: 07/23/17 06:14 Last Admin: 07/22/17 21:04 Dose: 100 mls/hr Morphine Sulfate (Morphine) 6 mg IVP Q4 PRN PRN Reason: Pain, severe (8-10) Last Admin: 07/22/17 21:03 Dose: 6 mg Mupirocin (Bactroban Ointment) 1 applic TOP BID [facility] Last Admin: 07/22/17 16:09 Dose: 1 applic Octreotide Acetate (Sandostatin) 300 mcg SC Q8@0500,1300,2100 [facility] Last Admin: 07/22/17 21:03 Dose: 300 mcg Ondansetron HCl (Zofran Inj) 4 mg IVP Q6H PRN PRN Reason: Nausea/Vomiting Last Admin: 07/17/17 05:26 Dose: 4 mg Potassium Chloride (Potassium Chloride Oral Soln) 20 meq PO BID [facility] Last Admin: 07/22/17 16:01 Dose: Not Given Saccharomyces Boulardii (Florastor) 250 mg PO BID [facility] Last Admin: 07/22/17 16:01 Dose: Not Given - Labs Labs: 07/22/17 05:20 07/22/17 05:20 PT 15.9 Seconds (9.8-13.1) H 07/22/17 05:20 INR 1.4 (0.9-1.2) H 07/22/17 05:20 APTT 39.1 Seconds (25.6-37.1) H 07/22/17 05:20 - Head Exam Head Exam: NORMAL INSPECTION - Eye Exam Eye Exam: Normal appearance - ENT Exam ENT Exam: Mucous Membranes Moist - Respiratory Exam Respiratory Exam: Clear to Ausculation Bilateral - Cardiovascular Exam Cardiovascular Exam: Irregular Rhythm - GI/Abdominal Exam GI & Abdominal Exam: Distended, Tenderness, Normal Bowel Sounds - Neurological Exam Neurological Exam: Awake, Oriented x3 Assessment and Plan (1) Abdominal pain Status: Acute (2) COPD (chronic obstructive pulmonary disease) Status: Acute (3) Essential (primary) hypertension Status: Acute (4) Hx of atrial fibrillation, no current medication Status: Acute (5) Intestinal perforation Status: Acute (6) Perforated abdominal viscus Status: Acute (7) Atrial fibrillation Status: Acute (8) Anemia Status: Acute (9) Thrombocytopenia Status: Acute (10) Abscess Status: Acute - Assessment and Plan (Free Text) Plan: Cont meds cont monitor cbc will send for CT scan
--- NOTE | 2017-07-22 21:53 | CP.PCM.PN ---
Subjective - Date & Time of Evaluation Date of Evaluation: 07/22/17 Time of Evaluation: 12:45 - Subjective Subjective: Noted excessive drainage still with abd pain Afebrile at times lethargic Noted further drop of platelet Discussed with Dr Garcia. Objective - Vital Signs/Intake and Output Vital Signs (last 24 hours): Temp Pulse Resp BP Pulse Ox 97.8 F 91 H 18 111/60 100 07/22/17 16:00 07/22/17 18:00 07/22/17 18:00 07/22/17 18:00 07/22/17 18:00 Intake and Output: 07/22/17 07/23/17 18:59 06:59 Intake Total 940 Output Total 1165 Balance -225 - Medications Medications: Current Medications Acetaminophen (Tylenol 325mg Tab) 650 mg PO Q4 PRN PRN Reason: Pain, moderate (4-7) Diltiazem HCl (Cardizem) 60 mg PO Q8 [facility] Last Admin: 07/22/17 16:01 Dose: Not Given Furosemide (Lasix) 20 mg IVP DAILY [facility] Last Admin: 07/22/17 09:03 Dose: 20 mg Amiodarone HCl 450 mg/ Sodium (Chloride) 259 mls @ 34.53 mls/hr IVPB .Q7H31M [facility]; 1 MG/MIN PRN Reason: Protocol Last Admin: 07/14/17 01:00 Dose: 34.53 mls/hr Meropenem 1 gm/ Sodium (Chloride) 100 mls @ 100 mls/hr IVPB Q8 [facility] PRN Reason: Protocol Last Admin: 07/22/17 16:08 Dose: 100 mls/hr Micafungin Sodium 100 mg/ (Sodium Chloride) 100 mls @ 100 mls/hr IVPB DAILY [facility] PRN Reason: Protocol Last Admin: 07/22/17 14:48 Dose: 100 mls/hr Potassium Chloride/Dextrose/Sod Cl (Potassium Chl 20 Meq In D5-1/2ns) 1,000 mls @ 100 mls/hr IV .Q10H [facility] Stop: 07/23/17 06:14 Last Admin: 07/22/17 21:04 Dose: 100 mls/hr Morphine Sulfate (Morphine) 6 mg IVP Q4 PRN PRN Reason: Pain, severe (8-10) Last Admin: 07/22/17 21:03 Dose: 6 mg Mupirocin (Bactroban Ointment) 1 applic TOP BID [facility] Last Admin: 07/22/17 16:09 Dose: 1 applic Octreotide Acetate (Sandostatin) 300 mcg SC Q8@0500,1300,2100 [facility] Last Admin: 07/22/17 21:03 Dose: 300 mcg Ondansetron HCl (Zofran Inj) 4 mg IVP Q6H PRN PRN Reason: Nausea/Vomiting Last Admin: 07/17/17 05:26 Dose: 4 mg Potassium Chloride (Potassium Chloride Oral Soln) 20 meq PO BID [facility] Last Admin: 07/22/17 16:01 Dose: Not Given Saccharomyces Boulardii (Florastor) 250 mg PO BID [facility] Last Admin: 07/22/17 16:01 Dose: Not Given - Labs Labs: 07/22/17 05:20 07/22/17 05:20 PT 15.9 Seconds (9.8-13.1) H 07/22/17 05:20 INR 1.4 (0.9-1.2) H 07/22/17 05:20 APTT 39.1 Seconds (25.6-37.1) H 07/22/17 05:20 - Head Exam Head Exam: NORMAL INSPECTION - Eye Exam Eye Exam: Normal appearance - ENT Exam ENT Exam: Mucous Membranes Moist - Respiratory Exam Respiratory Exam: Clear to Ausculation Bilateral - Cardiovascular Exam Cardiovascular Exam: REGULAR RHYTHM - GI/Abdominal Exam GI & Abdominal Exam: Tenderness, Normal Bowel Sounds - Neurological Exam Neurological Exam: Awake, Oriented x3 Assessment and Plan (1) Abdominal pain Status: Acute (2) COPD (chronic obstructive pulmonary disease) Status: Acute (3) Essential (primary) hypertension Status: Acute (4) Hx of atrial fibrillation, no current medication Status: Acute (5) Intestinal perforation Status: Acute (6) Perforated abdominal viscus Status: Acute (7) Atrial fibrillation Status: Acute (8) Anemia Status: Acute (9) Thrombocytopenia Status: Acute (10) Abscess Status: Acute - Assessment and Plan (Free Text) Plan: cont iv antibiotics Discussed with Dr garcia will consider doing a Ct scan cont meds cbc cmp in am
[2017-07-23] MEDS: Morphine 4 MG/ML VIAL IVP PRN ×6 (00:23→23:17)
[2017-07-23] MEDS: Meropenem 1 GM in Sodium Chloride 0.9% 100 ML IVPB SCH ×3 (00:24→17:41)
[2017-07-23] MEDS: Octreotide 500 mcg/ml Inj SC SCH ×3 (05:01→20:12)
[2017-07-23 05:35] LABS: BASO % 0.4 % (0.0-2.0); EOS # 0.1 K/uL (0.0-0.7); EOS % 3.8 % (0.0-4.0); HEMOGLOBIN 9.1 g/dL (12.0-18.0); LYMPH # 0.6 K/uL (1.0-4.3); LYMPH % 22.4 % (20.0-40.0); MEAN CORPUSCULAR HEMOGLOBIN 33.6 pg (27.0-31.0); MEAN PLATELET VOLUME 8.5 fl (7.2-11.7); MONO # 0.2 K/uL (0.0-0.8); MONO % 5.9 % (0.0-10.0); NEUT # 1.8 K/uL (1.8-7.0); NEUT % 67.5 % (50.0-75.0); NRBC % 0.8 % (0.0-0.0); RBC 2.71 Mil/uL (4.40-5.90); RED CELL DISTRIBUTION WIDTH 16.1 % (11.5-14.5); WHITE BLOOD COUNT 2.7 K/uL (4.8-10.8)
[2017-07-23 06:27] LABS: ALB/GLOB RATIO 0.6 (1.0-2.1); ALBUMIN 1.6 g/dL (3.5-5.0); ALT/SGPT 28 U/L (21-72); AST/SGOT 12 U/L (17-59); BLOOD UREA NITROGEN 26 mg/dl (9-20); GFR AFRICAN-AMERICAN > 60; GFR NON-AFRICAN AMERICAN > 60
[2017-07-23] MEDS ORDERED: Magnesium Sulfate 1 gm in D5W 1 GM/100 ML BAG IVPB ONE (08:00)
--- NOTE | 2017-07-23 08:09 | CP.PCM.PN ---
<Dianelys Goodwin - Last Filed: 07/23/17 08:06> Subjective - Date & Time of Evaluation Date of Evaluation: 07/23/17 Time of Evaluation: 08:06 - Subjective Subjective: General surgery - Dr Worthy Pt S&E. Per nursing there has been excessive brown drainage from midline wound when turning pt. Pt complains of abdominal pain, no change from prior. He wishes to eat or drink, no Nausea, vomiting, fevers or chills. Selvin drains with 15cc brown/bilious drainage. Midline incision with enteric appearing drainage, dressing changed. Objective - Vital Signs/Intake and Output Vital Signs (last 24 hours): Temp Pulse Resp BP Pulse Ox 98.9 F 145 H 20 102/50 L 100 07/23/17 04:00 07/23/17 08:04 07/23/17 08:04 07/23/17 08:04 07/23/17 08:04 Intake and Output: 07/23/17 07/23/17 06:59 18:59 Intake Total 1110 Output Total 540 Balance 570 - Medications Medications: Current Medications Acetaminophen (Tylenol 325mg Tab) 650 mg PO Q4 PRN PRN Reason: Pain, moderate (4-7) Diltiazem HCl (Cardizem) 60 mg PO Q8 [facility] Last Admin: 07/23/17 00:31 Dose: Not Given Furosemide (Lasix) 20 mg IVP DAILY [facility] Last Admin: 07/22/17 09:03 Dose: 20 mg Amiodarone HCl 450 mg/ Sodium (Chloride) 259 mls @ 34.53 mls/hr IVPB .Q7H31M [facility]; 1 MG/MIN PRN Reason: Protocol Last Admin: 07/14/17 01:00 Dose: 34.53 mls/hr Meropenem 1 gm/ Sodium (Chloride) 100 mls @ 100 mls/hr IVPB Q8 [facility] PRN Reason: Protocol Last Admin: 07/23/17 00:24 Dose: 100 mls/hr Micafungin Sodium 100 mg/ (Sodium Chloride) 100 mls @ 100 mls/hr IVPB DAILY [facility] PRN Reason: Protocol Last Admin: 07/22/17 14:48 Dose: 100 mls/hr Diltiazem HCl 100 mg/ Sodium (Chloride) 100 mls @ 5 mls/hr IV .Q20H [facility]; 5 MG/ HR PRN Reason: Protocol Stop: 07/24/17 03:48 Last Admin: 07/23/17 08:03 Dose: 5 mg/hr, 5 mls/hr Magnesium Sulfate/Dextrose (Magnesium Sulfate 1 Gm/100 Ml D5w) 1 gm in 100 mls @ 100 mls/hr IVPB ONCE ONE PRN Reason: 1 GM/HR Stop: 07/23/17 08:59 Morphine Sulfate (Morphine) 6 mg IVP Q4 PRN PRN Reason: Pain, severe (8-10) Last Admin: 07/23/17 05:01 Dose: 6 mg Mupirocin (Bactroban Ointment) 1 applic TOP BID [facility] Last Admin: 07/22/17 16:09 Dose: 1 applic Octreotide Acetate (Sandostatin) 300 mcg SC Q8@0500,1300,2100 [facility] Last Admin: 07/23/17 05:01 Dose: 300 mcg Potassium Chloride (Potassium Chloride Oral Soln) 20 meq PO BID [facility] Last Admin: 07/22/17 16:01 Dose: Not Given Saccharomyces Boulardii (Florastor) 250 mg PO BID [facility] Last Admin: 07/22/17 16:01 Dose: Not Given - Labs Labs: 07/23/17 04:45 07/23/17 04:45 PT 15.9 Seconds (9.8-13.1) H 07/22/17 05:20 INR 1.4 (0.9-1.2) H 07/22/17 05:20 APTT 39.1 Seconds (25.6-37.1) H 07/22/17 05:20 - Constitutional Appears: No Acute Distress - Head Exam Head Exam: ATRAUMATIC, NORMAL INSPECTION, NORMOCEPHALIC - Respiratory Exam Respiratory Exam: NORMAL BREATHING PATTERN. absent: Respiratory Distress - Cardiovascular Exam Cardiovascular Exam: Tachycardia - GI/Abdominal Exam GI & Abdominal Exam: Soft, Tenderness (mild). absent: Distended, Guarding, Rigid Additional comments: midline incision w/ brown drainage - Neurological Exam Neurological Exam: Alert, Oriented x3 - Skin Skin Exam: Dry Assessment and Plan - Assessment and Plan (Free Text) Assessment: 72M s/p ex-lap for perforated viscous with Small bowel resection with anastomosis POD#15 -Maintain NPO -NGT to low cont. suction -IVF and will need to start TPN -PICC line -Cont. Octreotide, Abx -I's & O's -Dressing changes PRN -Encourage OOB -Medical management as per ICU DW Dr Worthy <Mook Worthy - Last Filed: 07/23/17 21:35> Objective - Vital Signs/Intake and Output Vital Signs (last 24 hours): Temp Pulse Resp BP Pulse Ox 98.4 F 82 15 91/46 L 100 07/23/17 16:33 07/23/17 18:00 07/23/17 18:00 07/23/17 18:00 07/23/17 18:00 Intake and Output: 07/23/17 07/24/17 18:59 06:59 Intake Total 1202 Output Total 1312 Balance -110 - Medications Medications: Current Medications Acetaminophen (Tylenol 325mg Tab) 650 mg PO Q4 PRN PRN Reason: Pain, moderate (4-7) Diltiazem HCl (Cardizem) 60 mg PO Q8 [facility] Last Admin: 07/23/17 09:00 Dose: Not Given Furosemide (Lasix) 20 mg IVP DAILY [facility] Last Admin: 07/23/17 09:00 Dose: 20 mg Meropenem 1 gm/ Sodium (Chloride) 100 mls @ 100 mls/hr IVPB Q8 [facility] PRN Reason: Protocol Last Admin: 07/23/17 17:41 Dose: Not Given Micafungin Sodium 100 mg/ (Sodium Chloride) 100 mls @ 100 mls/hr IVPB DAILY [facility] PRN Reason: Protocol Last Admin: 07/23/17 09:04 Dose: 100 mls/hr Diltiazem HCl 100 mg/ Sodium (Chloride) 100 mls @ 5 mls/hr IV .Q20H [facility]; 5 MG/ HR PRN Reason: Protocol Stop: 07/24/17 03:48 Last Titration: 07/23/17 16:21 Dose: 0 mg/hr, 0 mls/hr Multivitamins/Vitamin C 10 ml/Chromium/Copper/Manganese/Zinc 3 ml/ Amino Acids/ Electrolytes/Dextrose 1,013 mls @ 45 mls/hr IV .[id number] ONE Stop: 07/24/17 14:15 Last Admin: 07/23/17 17:00 Dose: Not Given Dextrose/Sodium Chloride (Dextrose 5%-0.45% Ns 500 Ml) 500 mls @ 100 mls/hr IV .Q5H [facility] Stop: 07/24/17 18:16 Morphine Sulfate (Morphine) 6 mg IVP Q4 PRN PRN Reason: Pain, severe (8-10) Last Admin: 07/23/17 16:58 Dose: 6 mg Mupirocin (Bactroban Ointment) 1 applic TOP BID [facility] Last Admin: 07/23/17 17:40 Dose: 1 applic Octreotide Acetate (Sandostatin) 300 mcg SC Q8@0500,1300,2100 [facility] Last Admin: 07/23/17 20:12 Dose: 300 mcg Potassium Chloride (Potassium Chloride Oral Soln) 20 meq PO BID [facility] Last Admin: 07/23/17 09:05 Dose: Not Given Saccharomyces Boulardii (Florastor) 250 mg PO BID [facility] Last Admin: 07/23/17 09:00 Dose: Not Given - Labs Labs: 07/23/17 04:45 07/23/17 04:45 PT 15.9 Seconds (9.8-13.1) H 07/22/17 05:20 INR 1.4 (0.9-1.2) H 07/22/17 05:20 APTT 39.1 Seconds (25.6-37.1) H 07/22/17 05:20 Attending/Attestation - Attestation I have personally seen and examined this patient.: Yes I have fully participated in the care of the patient.: Yes I have reviewed all pertinent clinical information, including history, physical exam and plan: Yes Notes (Text): Pt was seen and examine at bedside Agree with above note and assessment Pt with bile leak and ileus Pt is stable clinically C.w octreotide PPN or TPN IV antibiotics c/w current mx Plan d.w pt in detail Risk and benefit explained in detail.
[2017-07-23] MEDS: Saccharomyces Boulardi 250 mg Cap PO SCH (09:00)
[2017-07-23] MEDS: Micafungin 100 MG in Sodium Chloride 0.9% 100 ML IVPB SCH (09:04)
[2017-07-23] MEDS: Potassium Chloride 20 mEq/15 ml LIQ UD PO SCH (09:05)
--- NOTE | 2017-07-23 09:24 | CP.CCUPN ---
CCU Subjective - Physician Review Subjective (Free Text): 07/17/17 The patient was Seen/interviewed and examined by me at the bedside during ICU round, Medical records reviewed and Management issues were discussed and formulated with the house staff. Events reviewed Mr Wolf is 72 year old male with a past medical history of HTN, atrial fibrillation and deep vein thrombosis present to the emergency department complaining of abdominal pain which began x2 hours prior to arrival. Patient admitted with Acute abdomen, free air sec to perforated viscous 07/08, Underwent Jejunal perforation repair, small bowel resection and primary anastomosis, enterolysis, Irrisept irrigation, TEP block, RIJ TLC and placement, NGT placement This morning he is Alert and oriented Continues to report intermittent belly tenderness Comfortable, in no Distress In A fib, HR Uncontrolled, off amiodoron infusion and was started on Cardizem drip this morning Pt was on PO Cardizem, but now is NPO, BP has been stable, No Vasopressors Afebrile, A_Fib on the monitor Evaluated by wound care Last 24H I&O 2050/1750 This morning labs revealed Stable renal function, INR better 2.31.4. Stable H/H, but Platelets down to 15, No evidence of active bleed Hematology on board, suspect sepsis related Zyvox Held 07/23/17 16:09 NPO High brown drainage from midline wound TPN ordered, to be started once PICC Vs central line placed, Pending Platelets transfusion (Plat count 15) CCU Objective - Vital Signs / Intake & Output Vital Signs (Last 4 hours): Vital Signs Temp Pulse Resp BP Pulse Ox 07/23/17 09:00 93 H 103/64 07/23/17 08:04 145 H 20 102/50 L 100 07/23/17 08:00 98.0 F 106 H 14 80/48 L 100 07/23/17 06:00 116 H 25 H 92/45 L 100 Intake and Output (Last 8hrs): Intake & Output 07/22/17 07/23/17 07/23/17 22:59 06:59 14:59 Intake Total 590 800 Output Total 1165 540 Balance -575 260 Intake: IV 590 800 Output: Gastric Amount 150 Left Nares 150 Drainage 15 20 Left 5 Right 10 20 Urine 1000 520 Urethral (Russell) 1000 520 - Physical Exam Head: Positive for: Normocephalic Pupils: Positive for: PERRL Conjunctiva: Negative for: Icteric Mouth: Positive for: Moist Mucous Membranes Neck: Negative for: JVD Respiratory/Chest: Positive for: Clear to Auscultation, Decreased Breath Sounds. Negative for: Accessory Muscle Use, Wheezes, Rhonchi Cardiovascular: Positive for: Irregular Rhythm, Tachycardic. Negative for: Murmurs, Rub Abdomen: Positive for: Tenderness. Negative for: Distention, Normal Bowel Sounds, Rebound, Guarding, Mass/Organomegaly Lower Extremity: Positive for: NORMAL PULSES. Negative for: CALF TENDERNESS, Cyanosis Neurological: Positive for: Motor Func Grossly Intact, Normal Sensory Function Skin: Positive for: Warm, Dry. Negative for: Rashes Psychiatric: Positive for: Alert, Oriented x 3 - Medications Active Medications: Active Medications Generic Name Dose Route Start Last Admin Trade Name Freq PRN Reason Stop Dose Admin Acetaminophen 650 mg 07/13/17 07:49 Tylenol 325mg Tab PO Q4 PRN Pain, moderate (4-7) Diltiazem HCl 60 mg 07/15/17 17:00 07/23/17 09:00 Cardizem PO Not Given Q8 CHARMAINE Furosemide 20 mg 07/14/17 09:00 07/23/17 09:00 Lasix IVP 20 mg DAILY CHARMAINE Administration Amiodarone HCl 450 mg/ Sodium 259 mls @ 34.53 mls/hr 07/13/17 15:45 07/14/17 01:00 Chloride IVPB 34.53 mls/hr .Q7H31M CHARMAINE Administration Protocol 1 MG/MIN Meropenem 1 gm/ Sodium 100 mls @ 100 mls/hr 07/22/17 17:00 07/23/17 09:02 Chloride IVPB 100 mls/hr Q8 CHARMAINE Administration Protocol Micafungin Sodium 100 mg/ 100 mls @ 100 mls/hr 07/22/17 14:15 07/23/17 09:04 Sodium Chloride IVPB 100 mls/hr DAILY CHARMAINE Administration Protocol Diltiazem HCl 100 mg/ Sodium 100 mls @ 5 mls/hr 07/23/17 07:49 07/23/17 08:03 Chloride IV 07/24/17 03:48 5 mg/hr .Q20H ONE 5 mls/hr Protocol Administration 5 MG/HR Morphine Sulfate 6 mg 07/21/17 09:30 07/23/17 08:57 Morphine IVP 6 mg Q4 PRN Administration Pain, severe (8-10) Mupirocin 1 applic 07/09/17 20:15 07/23/17 08:59 Bactroban Ointment TOP 1 applic BID CHARMAINE Administration Octreotide Acetate 300 mcg 07/22/17 21:00 07/23/17 05:01 Sandostatin SC 300 mcg Q8@0500,1300,2100 CHARMAINE Administration Potassium Chloride 20 meq 07/16/17 17:00 07/23/17 09:05 Potassium Chloride Oral Soln PO Not Given BID CHARMAINE Saccharomyces Boulardii 250 mg 07/13/17 17:00 07/23/17 09:00 Florastor PO Not Given BID CHARMAINE - Patient Studies Lab Studies: Microbiology Studies 07/22/17 07:55 Gram Stain - Final Abdomen Lab Studies 07/23/17 07/23/17 07/22/17 Range/Units 04:45 04:45 05:20 WBC 2.7 L 3.1 L D (4.8-10.8) K/uL RBC 2.71 L (4.40-5.90) Mil/uL Hgb 9.1 L (12.0-18.0) g/dL Hct 26.8 L (35.0-51.0) % MCV 99.0 H (80.0-94.0) fl MCH 33.6 H (27.0-31.0) pg MCHC 34.0 (33.0-37.0) g/dL RDW 16.1 H (11.5-14.5) % Plt Count 15 L* D 23 L* (130-400) K/uL MPV 8.5 (7.2-11.7) fl Neut % (Auto) 67.5 (50.0-75.0) % Lymph % (Auto) 22.4 (20.0-40.0) % [place] % (Auto) 5.9 (0.0-10.0) % Eos % (Auto) 3.8 (0.0-4.0) % Baso % (Auto) 0.4 (0.0-2.0) % Neut # (Auto) 1.8 (1.8-7.0) K/uL Lymph # (Auto) 0.6 L (1.0-4.3) K/uL [place] # (Auto) 0.2 (0.0-0.8) K/uL Eos # (Auto) 0.1 (0.0-0.7) K/uL Baso # (Auto) 0.0 (0.0-0.2) K/uL Sodium 134 (132-148) mmol/l Potassium 4.5 (3.6-5.0) MMOL/L Chloride 101 (98-107) mmol/L Carbon Dioxide 26 (22-30) mmol/L Anion Gap 12 (10-20) BUN 26 H (9-20) mg/dl Creatinine 0.9 (0.8-1.5) mg/dl Est GFR ( Amer) > 60 Est GFR (Non-Af Amer) > 60 Random Glucose 140 H (75-110) mg/dL Calcium 7.0 L (8.4-10.2) mg/dL Total Bilirubin 0.3 (0.2-1.3) mg/dl AST 12 L (17-59) U/L ALT 28 (21-72) U/L Alkaline Phosphatase 48 (38-126) U/L Total Protein 4.1 L (6.3-8.2) G/DL Albumin 1.6 L (3.5-5.0) g/dL Globulin 2.6 (2.2-3.9) gm/dL Albumin/Globulin Ratio 0.6 L (1.0-2.1) Laboratory Results - last 24 hr 07/22/17 07/23/17 07/23/17 05:20 04:45 04:45 WBC 3.1 L D 2.7 L RBC 2.71 L Hgb 9.1 L Hct 26.8 L MCV 99.0 H MCH 33.6 H MCHC 34.0 RDW 16.1 H Plt Count 23 L* 15 L* D MPV 8.5 Neut % (Auto) 67.5 Lymph % (Auto) 22.4 [place] % (Auto) 5.9 Eos % (Auto) 3.8 Baso % (Auto) 0.4 Neut # (Auto) 1.8 Lymph # (Auto) 0.6 L [place] # (Auto) 0.2 Eos # (Auto) 0.1 Baso # (Auto) 0.0 Sodium 134 Potassium 4.5 Chloride 101 Carbon Dioxide 26 Anion Gap 12 BUN 26 H Creatinine 0.9 Est GFR ( Amer) > 60 Est GFR (Non-Af Amer) > 60 Random Glucose 140 H Calcium 7.0 L Total Bilirubin 0.3 AST 12 L ALT 28 Alkaline Phosphatase 48 Total Protein 4.1 L Albumin 1.6 L Globulin 2.6 Albumin/Globulin Ratio 0.6 L Fingerstick Blood Sugar Results: 165 Review of Systems - Cardiovascular Cardiovascular: absent: As Per HPI, Acrocyanosis, Chest Pain, Chest Pain at Rest , Chest Pain with Activity, Claudication, Diaphoresis, Dyspnea, Dyspnea on Exertion, Edema, Irregular Heart Rhythm, Pain Radiating to Arm/Neck/Jaw, Leg Edema, Leg Ulcers, Lightheadedness, Orthopnea, Palpitations, Paroxysmal Nocturnal Dyspnea, Pedal Edema, Radiating Pain, Rapid Heart Rate, Slow Heart Rate, Syncope, Other, UNREMARKABLE - Respiratory Respiratory: absent: As Per HPI, Cough, Dyspnea, Hemoptysis, Dyspnea on Exertion , Wheezing, Snoring, Stridor, Pain on Inspiration, Chest Congestion, Excessive Mucous Production, Change in Mucous Color, Pain with Coughing, Other, UNREMARKABLE - Gastrointestinal Gastrointestinal: Abdominal Pain. absent: Hematochezia, Loose Stools, Melena, Nausea, Odynophagia, Vomiting Critical Care Progress Note - Extremities/Vascular Does the Patient have a Central Venous Catheter?: No Does the Patient need a Central Venous Catheter?: No Does the Patient have a Russell Catheter?: No Does the Patient need a Russell Catheter?: No - Nutrition Nutrition: Nutrition Category Date Time Status NPO Diet [DIET] Diets 07/21/17 Breakfast Active Assessment/Plan (1) Pancytopenia Current Visit: No Status: Acute Comment: neutropenia H/H Stable platelets trending Down No evidance of actie bleed\ This morning labs revealed Stable renal function, INR better 2.3?1.4. Stable H/H, but Platelets down to 15, No evidence of active bleed Hematology on board, suspect sepsis related Zyvox Held (2) Intestinal perforation Current Visit: Yes Status: Acute Priority: High Comment: S/P Laprotomy, for perforated bowel NPO, High brown drainage from midline wound Will start parentral nutrition once central line placed, pending platelets transfusion (3) Atrial fibrillation Current Visit: Yes Status: Acute Priority: High Comment: HR Uncontrolled, Patient MPO OFF amiodoron infusion Continue Cardizem Drip No anticoagulants for time being due to thrombocytopenia (4) COPD (chronic obstructive pulmonary disease) Current Visit: Yes Status: Acute (5) Acute urinary retention Current Visit: No Status: Acute Comment: Russell removed, needed Staraigh cath today 750cc of jeison urine came out (6) Hypokalemia Current Visit: Yes Status: Acute
--- NOTE | 2017-07-23 11:00 | US ---
PROCEDURE: Duplex ultrasound of the bilateral lower extremity arteries. HISTORY: weak pedal pulses COMPARISON: None available. TECHNIQUE: Grayscale and duplex Doppler evaluation of the bilateral common femoral, superficial femoral, popliteal, posterior tibial and dorsalis pedis arteries was performed.. FINDINGS: RIGHT LOWER EXTREMITY: RIGHT COMMON FEMORAL ARTERY: Flow is not documented. RIGHT SUPERFICIAL FEMORAL ARTERY: No flow identified throughout the right SFA. RIGHT POPLITEAL ARTERY: Maximal flow velocity of 11.9 cm/s. RIGHT POSTERIOR TIBIAL ARTERY: Maximal flow velocity of 11.9 cm/s. RIGHT DORSALIS PEDIS ARTERY: Flow is not identified right dorsalis pedis artery. LEFT LOWER EXTREMITY: LEFT COMMON FEMORAL ARTERY: Dense calcified atherosclerotic plaque Maximal flow velocity of 45.5 cm/s. LEFT SUPERFICIAL FEMORAL ARTERY: Atherosclerotic plaque formation. Maximal flow velocity of 45.5 cm/s. LEFT POPLITEAL ARTERY:Heterogeneous plaque formation. Maximal flow velocity of 16.3 cm/s. LEFT POSTERIOR TIBIAL ARTERY: Heterogeneous plaque formation. Maximal flow velocity of 17.1 cm/s. LEFT DORSALIS PEDIS ARTERY: Flow is not identified in the left dorsalis pedis artery. OTHER FINDINGS: None. IMPRESSION: Right lower extremity: Occlusive disease throughout they right common femoral and superficial femoral artery. Markedly depressed popliteal and posterior tibial arterial velocities likely via collaterals. Absence of flow in the right dorsalis pedis artery. Left lower extremity: Diminished flow velocities throughout the arterial system accompanied by heterogeneous densely calcified plaque formation described above. Absence of flow to the left dorsalis pedis artery.
--- NOTE | 2017-07-23 11:05 | US ---
PROCEDURE: Upper Extremity Venous Duplex Exam William HISTORY: BUE edema/ pale and cyanotic fingers PRIORS: None. TECHNIQUE: Bilateral upper extremity, internal jugular, subclavian, axillary, brachial, ulnar, radial, basilic and upper cephalic veins were evaluated. Flow was assessed with color Doppler, compressibility, assessment of phasic flow and augmentation response. Report prepared by chemistry technologist. FINDINGS: RIGHT: 1. Internal Jugular: 1.1. Compressibility - Fully compressible: Thrombus - None : Flow - Phasic: Augmentation -Normal: Reflux - None. 2. Subclavian: 2.1. Compressibility - Fully compressible: Thrombus - None : Flow - Phasic: Augmentation -Normal: Reflux - None. 3. Axillary: 3.1. Compressibility - Fully compressible: Thrombus - None : Flow - Phasic: Augmentation -Normal: Reflux - None. 4. Brachial: 4.1. Compressibility - Fully compressible: Thrombus - None: Flow - Phasic: Augmentation -Normal: Reflux - None. 5. Ulnar: 5.1. Compressibility - Fully compressible: Thrombus - None: Flow - Phasic: Augmentation -Normal: Reflux - None. 6. Radial: 6.1. Compressibility - Fully compressible: Thrombus - None: Flow - Phasic: Augmentation - Normal: Reflux - None. 7. Cephalic: 7.1. Compressibility - Fully compressible: Thrombus - None: Flow - Phasic: Augmentation -Normal: Reflux - None. 8. Basilic: 8.1. Compressibility - Fully compressible: Thrombus - None: Flow - Phasic: Augmentation -Normal: Reflux - None. LEFT: 1. Internal Jugular: 1.1. Compressibility - Fully compressible: Thrombus - None : Flow - Phasic: Augmentation -Normal: Reflux - None. 2. Subclavian: 2.1. Compressibility - Fully compressible: Thrombus - None : Flow - Phasic: Augmentation -Normal: Reflux - None. 3. Axillary: 3.1. Compressibility - Fully compressible: Thrombus - None : Flow - Phasic: Augmentation -Normal: Reflux - None. 4. Brachial: 4.1. Compressibility - Fully compressible: Thrombus - None: Flow - Phasic: Augmentation -Normal: Reflux - None. 5. Ulnar: 5.1. Compressibility - Fully compressible: Thrombus - None: Flow - Phasic: Augmentation -Normal: Reflux - None. 6. Radial: 6.1. Compressibility - Fully compressible: Thrombus - None: Flow - Phasic: Augmentation - Normal: Reflux - None. 7. Cephalic: 7.1. Flow was not identified with certainty in the left cephalic vein. 8. Basilic: 8.1. Compressibility - Fully compressible: Thrombus - None: Flow - Phasic: Augmentation -Normal: Reflux - None. OTHER FINDINGS: Right: None. Left: None. IMPRESSION: Right: No evidence of vein thrombosis of the right upper extremity with excellent venous flow. Normal valve function noted of the right side. Left: No evidence of vein thrombosis of the left upper extremity with excellent venous flow. Normal valve function noted of the left side. Limitations of the current examination: Poor visualization left cephalic vein.
--- NOTE | 2017-07-23 11:15 | US ---
PROCEDURE: HISTORY: cyanosis to fingers/weak radial radial pulse COMPARISON: None available. TECHNIQUE: Grayscale and duplex Doppler evaluation of the bilateral upper extremities was performed. Report prepared by lead nuclear medicine technologist. FINDINGS: RIGHT UPPER EXTREMITY: * Distal SCA: Peak Systolic Velocity - 56.2: Doppler Waveform: Triphasic.: * Axillary: Peak Systolic Velocity - : Doppler Waveform: Biphasic: * Brachial o Mid Segment: Peak Systolic Velocity - 123.8: Doppler Waveform: Triphasic.: * Radial o Proximal Segment: Peak Systolic Velocity - 54.2: Doppler Waveform: Biphasic: * Ulnar peak systolic velocity 58.3 with biphasic waveform. LEFT UPPER EXTREMITY: * Prox SCA : Peak Systolic Velocity - 80.2: Doppler Waveform: Triphasic.: * Axillary: Peak Systolic Velocity - 64.2: Doppler Waveform: Triphasic.: Tracheal artery proximal peak systolic velocity 110.1. Triphasic waveform * Radial * o Distal Segment: Peak Systolic Velocity - 38.3: Doppler Waveform: Monophasic: Plaque description - Heterogeneous * Ulnar o Distal Segment: Peak Systolic Velocity - 14.3: Doppler Waveform: Monophasic: Plaque description - heterogeneous OTHER FINDINGS: IMPRESSION: Left upper extremity: Diminished flow to the right upper extremity particularly at the level of the ulnar and radial arteries. Right upper extremity: Normal flow throughout the visualized right upper extremity.
--- NOTE | 2017-07-23 11:38 | CP.PCM.PN ---
Subjective - Date & Time of Evaluation Date of Evaluation: 07/23/17 Time of Evaluation: 08:00 - Subjective Subjective: events noted antifungal rx added Objective - Vital Signs/Intake and Output Vital Signs (last 24 hours): Temp Pulse Resp BP Pulse Ox 98.0 F 93 H 20 103/64 100 07/23/17 08:00 07/23/17 09:00 07/23/17 08:04 07/23/17 09:00 07/23/17 08:04 Intake and Output: 07/23/17 07/23/17 06:59 18:59 Intake Total 1110 Output Total 540 Balance 570 - Medications Medications: Current Medications Acetaminophen (Tylenol 325mg Tab) 650 mg PO Q4 PRN PRN Reason: Pain, moderate (4-7) Diltiazem HCl (Cardizem) 60 mg PO Q8 [facility] Last Admin: 07/23/17 09:00 Dose: Not Given Furosemide (Lasix) 20 mg IVP DAILY [facility] Last Admin: 07/23/17 09:00 Dose: 20 mg Amiodarone HCl 450 mg/ Sodium (Chloride) 259 mls @ 34.53 mls/hr IVPB .Q7H31M CHARMAINE; 1 MG/MIN PRN Reason: Protocol Last Admin: 07/14/17 01:00 Dose: 34.53 mls/hr Meropenem 1 gm/ Sodium (Chloride) 100 mls @ 100 mls/hr IVPB Q8 CHARMAINE PRN Reason: Protocol Last Admin: 07/23/17 09:02 Dose: 100 mls/hr Micafungin Sodium 100 mg/ (Sodium Chloride) 100 mls @ 100 mls/hr IVPB DAILY CHARMAINE PRN Reason: Protocol Last Admin: 07/23/17 09:04 Dose: 100 mls/hr Diltiazem HCl 100 mg/ Sodium (Chloride) 100 mls @ 5 mls/hr IV .Q20H ONE; 5 MG/ HR PRN Reason: Protocol Stop: 07/24/17 03:48 Last Admin: 07/23/17 08:03 Dose: 5 mg/hr, 5 mls/hr Morphine Sulfate (Morphine) 6 mg IVP Q4 PRN PRN Reason: Pain, severe (8-10) Last Admin: 07/23/17 08:57 Dose: 6 mg Mupirocin (Bactroban Ointment) 1 applic TOP BID [facility] Last Admin: 07/23/17 08:59 Dose: 1 applic Octreotide Acetate (Sandostatin) 300 mcg SC Q8@0500,1300,2100 [facility] Last Admin: 07/23/17 05:01 Dose: 300 mcg Potassium Chloride (Potassium Chloride Oral Soln) 20 meq PO BID [facility] Last Admin: 07/23/17 09:05 Dose: Not Given Saccharomyces Boulardii (Florastor) 250 mg PO BID [facility] Last Admin: 07/23/17 09:00 Dose: Not Given - Labs Labs: 07/23/17 04:45 07/23/17 04:45 PT 15.9 Seconds (9.8-13.1) H 07/22/17 05:20 INR 1.4 (0.9-1.2) H 07/22/17 05:20 APTT 39.1 Seconds (25.6-37.1) H 07/22/17 05:20 - Constitutional Appears: Non-toxic, Chronically Ill - Head Exam Head Exam: NORMOCEPHALIC - Eye Exam Eye Exam: absent: Scleral icterus - ENT Exam ENT Exam: Mucous Membranes Dry - Neck Exam Neck Exam: absent: Lymphadenopathy - Respiratory Exam Respiratory Exam: Decreased Breath Sounds - Cardiovascular Exam Cardiovascular Exam: REGULAR RHYTHM - GI/Abdominal Exam GI & Abdominal Exam: Distended, Soft Assessment and Plan (1) Abdominal pain Status: Acute (2) COPD (chronic obstructive pulmonary disease) Status: Acute (3) Essential (primary) hypertension Status: Acute (4) Hx of atrial fibrillation, no current medication Status: Acute (5) Intestinal perforation Status: Acute (6) Perforated abdominal viscus Status: Acute (7) Sepsis Status: Acute
[2017-07-23] MEDS ORDERED: Multivitamin (MVI) 10 ML, Chromium/Copper/Manganese/Zinc 3 ML in Amino/Dex E 4.25/10 10... IV ONE (15:45)
--- NOTE | 2017-07-23 21:35 | CP.PCM.PN ---
Subjective - Date & Time of Evaluation Date of Evaluation: 07/23/17 Time of Evaluation: 11:30 - Subjective Subjective: Patient is much more awake. Has no fever Noted further decrease in platelet. Has no chest pain or SOB. Objective - Vital Signs/Intake and Output Vital Signs (last 24 hours): Temp Pulse Resp BP Pulse Ox 98.4 F 82 15 91/46 L 100 07/23/17 16:33 07/23/17 18:00 07/23/17 18:00 07/23/17 18:00 07/23/17 18:00 Intake and Output: 07/23/17 07/24/17 18:59 06:59 Intake Total 1202 Output Total 1312 Balance -110 - Medications Medications: Current Medications Acetaminophen (Tylenol 325mg Tab) 650 mg PO Q4 PRN PRN Reason: Pain, moderate (4-7) Diltiazem HCl (Cardizem) 60 mg PO Q8 [facility] Last Admin: 07/23/17 09:00 Dose: Not Given Furosemide (Lasix) 20 mg IVP DAILY [facility] Last Admin: 07/23/17 09:00 Dose: 20 mg Meropenem 1 gm/ Sodium (Chloride) 100 mls @ 100 mls/hr IVPB Q8 CHARMAINE PRN Reason: Protocol Last Admin: 07/23/17 17:41 Dose: Not Given Micafungin Sodium 100 mg/ (Sodium Chloride) 100 mls @ 100 mls/hr IVPB DAILY CHARMAINE PRN Reason: Protocol Last Admin: 07/23/17 09:04 Dose: 100 mls/hr Diltiazem HCl 100 mg/ Sodium (Chloride) 100 mls @ 5 mls/hr IV .Q20H ONE; 5 MG/ HR PRN Reason: Protocol Stop: 07/24/17 03:48 Last Titration: 07/23/17 16:21 Dose: 0 mg/hr, 0 mls/hr Multivitamins/Vitamin C 10 ml/Chromium/Copper/Manganese/Zinc 3 ml/ Amino Acids/ Electrolytes/Dextrose 1,013 mls @ 45 mls/hr IV .[id number] ONE Stop: 07/24/17 14:15 Last Admin: 07/23/17 17:00 Dose: Not Given Dextrose/Sodium Chloride (Dextrose 5%-0.45% Ns 500 Ml) 500 mls @ 100 mls/hr IV .Q5H [facility] Stop: 07/24/17 18:16 Morphine Sulfate (Morphine) 6 mg IVP Q4 PRN PRN Reason: Pain, severe (8-10) Last Admin: 07/23/17 16:58 Dose: 6 mg Mupirocin (Bactroban Ointment) 1 applic TOP BID [facility] Last Admin: 07/23/17 17:40 Dose: 1 applic Octreotide Acetate (Sandostatin) 300 mcg SC Q8@0500,1300,2100 [facility] Last Admin: 07/23/17 20:12 Dose: 300 mcg Potassium Chloride (Potassium Chloride Oral Soln) 20 meq PO BID [facility] Last Admin: 07/23/17 09:05 Dose: Not Given Saccharomyces Boulardii (Florastor) 250 mg PO BID [facility] Last Admin: 07/23/17 09:00 Dose: Not Given - Labs Labs: 07/23/17 04:45 07/23/17 04:45 PT 15.9 Seconds (9.8-13.1) H 07/22/17 05:20 INR 1.4 (0.9-1.2) H 07/22/17 05:20 APTT 39.1 Seconds (25.6-37.1) H 07/22/17 05:20 - Head Exam Head Exam: NORMAL INSPECTION - Eye Exam Eye Exam: Normal appearance - ENT Exam Additional comments: pale conjunctivae - Respiratory Exam Respiratory Exam: Clear to Ausculation Bilateral - Cardiovascular Exam Cardiovascular Exam: REGULAR RHYTHM - GI/Abdominal Exam GI & Abdominal Exam: Hypoactive Bowel Sounds - Neurological Exam Neurological Exam: Awake, Oriented x3 Assessment and Plan (1) Abdominal pain Status: Acute (2) COPD (chronic obstructive pulmonary disease) Status: Acute (3) Essential (primary) hypertension Status: Acute (4) Hx of atrial fibrillation, no current medication Status: Acute (5) Intestinal perforation Status: Acute (6) Perforated abdominal viscus Status: Acute (7) Atrial fibrillation Status: Acute (8) Anemia Status: Acute (9) Thrombocytopenia Status: Acute (10) Abscess Status: Acute - Assessment and Plan (Free Text) Plan: Cont meds Cont tx Cont monitor cbccmp follow up with surgery
--- NOTE | 2017-07-24 00:19 | CP.PCM.PN ---
Subjective - Date & Time of Evaluation Date of Evaluation: 07/23/17 Time of Evaluation: 20:15 - Subjective Subjective: Has some abdominal pain. Objective - Vital Signs/Intake and Output Vital Signs (last 24 hours): Temp Pulse Resp BP Pulse Ox 98.4 F 82 15 91/46 L 100 07/23/17 16:33 07/23/17 18:00 07/23/17 18:00 07/23/17 18:00 07/23/17 18:00 Intake and Output: 07/23/17 07/24/17 18:59 06:59 Intake Total 1202 Output Total 1312 Balance -110 - Medications Medications: Current Medications Acetaminophen (Tylenol 325mg Tab) 650 mg PO Q4 PRN PRN Reason: Pain, moderate (4-7) Diltiazem HCl (Cardizem) 60 mg PO Q8 [facility] Last Admin: 07/23/17 09:00 Dose: Not Given Furosemide (Lasix) 20 mg IVP DAILY [facility] Last Admin: 07/23/17 09:00 Dose: 20 mg Meropenem 1 gm/ Sodium (Chloride) 100 mls @ 100 mls/hr IVPB Q8 [facility] PRN Reason: Protocol Last Admin: 07/23/17 17:41 Dose: Not Given Micafungin Sodium 100 mg/ (Sodium Chloride) 100 mls @ 100 mls/hr IVPB DAILY [facility] PRN Reason: Protocol Last Admin: 07/23/17 09:04 Dose: 100 mls/hr Diltiazem HCl 100 mg/ Sodium (Chloride) 100 mls @ 5 mls/hr IV .Q20H ONE; 5 MG/ HR PRN Reason: Protocol Stop: 07/24/17 03:48 Last Titration: 07/23/17 16:21 Dose: 0 mg/hr, 0 mls/hr Multivitamins/Vitamin C 10 ml/Chromium/Copper/Manganese/Zinc 3 ml/ Amino Acids/ Electrolytes/Dextrose 1,013 mls @ 45 mls/hr IV .[id number] ONE Stop: 07/24/17 14:15 Last Admin: 07/23/17 17:00 Dose: Not Given Dextrose/Sodium Chloride (Dextrose 5%-0.45% Ns 500 Ml) 500 mls @ 100 mls/hr IV .Q5H [facility] Stop: 07/24/17 18:16 Morphine Sulfate (Morphine) 6 mg IVP Q4 PRN PRN Reason: Pain, severe (8-10) Last Admin: 07/23/17 23:17 Dose: 6 mg Mupirocin (Bactroban Ointment) 1 applic TOP BID [facility] Last Admin: 07/23/17 17:40 Dose: 1 applic Octreotide Acetate (Sandostatin) 300 mcg SC Q8@0500,1300,2100 [facility] Last Admin: 07/23/17 20:12 Dose: 300 mcg Potassium Chloride (Potassium Chloride Oral Soln) 20 meq PO BID [facility] Last Admin: 07/23/17 09:05 Dose: Not Given Saccharomyces Boulardii (Florastor) 250 mg PO BID [facility] Last Admin: 07/23/17 09:00 Dose: Not Given - Labs Labs: 07/23/17 04:45 07/23/17 04:45 PT 15.9 Seconds (9.8-13.1) H 07/22/17 05:20 INR 1.4 (0.9-1.2) H 07/22/17 05:20 APTT 39.1 Seconds (25.6-37.1) H 07/22/17 05:20 Assessment and Plan (1) Pancytopenia Assessment & Plan: thrombocytopenia worsening; suspect sepsis related transfuse if plt < 10,000 leukopenia but no neutropenia H/H fairly stable repeat coags and fibrinogen Zyvox stopped Status: Acute
[2017-07-24] MEDS: Meropenem 1 GM in Sodium Chloride 0.9% 100 ML IVPB SCH ×3 (01:45→16:09)
[2017-07-24] MEDS: Morphine 4 MG/ML VIAL IVP PRN ×5 (03:30→20:57)
[2017-07-24] MEDS: Octreotide 500 mcg/ml Inj SC SCH ×3 (07:16→21:00)
--- NOTE | 2017-07-24 07:53 | CP.PCM.PN ---
<Dianelys Goodwin - Last Filed: 07/24/17 07:51> Subjective - Date & Time of Evaluation Date of Evaluation: 07/24/17 Time of Evaluation: 07:51 - Subjective Subjective: General Surgery - Dr. Worthy Pt S&E. DAVID. Pt received 2U plts yesterday, plan for PICC line today for TPN. Pt complains of abdominal pain, unchanged. No nausea, vomiting, fevers, chills, sob or chest pain. He is NPO with NGT to low cont. suction. Objective - Vital Signs/Intake and Output Vital Signs (last 24 hours): Temp Pulse Resp BP Pulse Ox 98 F 112 H 16 101/65 100 07/24/17 04:00 07/24/17 06:00 07/24/17 06:00 07/24/17 06:00 07/24/17 06:00 Intake and Output: 07/24/17 07/24/17 06:59 18:59 Intake Total 1430 Output Total 1315 Balance 115 - Medications Medications: Current Medications Acetaminophen (Tylenol 325mg Tab) 650 mg PO Q4 PRN PRN Reason: Pain, moderate (4-7) Diltiazem HCl (Cardizem) 60 mg PO Q8 [facility] Last Admin: 07/23/17 09:00 Dose: Not Given Furosemide (Lasix) 20 mg IVP DAILY [facility] Last Admin: 07/23/17 09:00 Dose: 20 mg Meropenem 1 gm/ Sodium (Chloride) 100 mls @ 100 mls/hr IVPB Q8 [facility] PRN Reason: Protocol Last Admin: 07/24/17 01:45 Dose: 100 mls/hr Micafungin Sodium 100 mg/ (Sodium Chloride) 100 mls @ 100 mls/hr IVPB DAILY [facility] PRN Reason: Protocol Last Admin: 07/23/17 09:04 Dose: 100 mls/hr Multivitamins/Vitamin C 10 ml/Chromium/Copper/Manganese/Zinc 3 ml/ Amino Acids/ Electrolytes/Dextrose 1,013 mls @ 45 mls/hr IV .[id number] ONE Stop: 07/24/17 14:15 Last Admin: 07/23/17 17:00 Dose: Not Given Dextrose/Sodium Chloride (Dextrose 5%-0.45% Ns 500 Ml) 500 mls @ 100 mls/hr IV .Q5H [facility] Stop: 07/24/17 18:16 Last Admin: 07/24/17 03:37 Dose: 100 mls/hr Morphine Sulfate (Morphine) 6 mg IVP Q4 PRN PRN Reason: Pain, severe (8-10) Last Admin: 07/24/17 03:30 Dose: 6 mg Mupirocin (Bactroban Ointment) 1 applic TOP BID [facility] Last Admin: 07/23/17 17:40 Dose: 1 applic Octreotide Acetate (Sandostatin) 300 mcg SC Q8@0500,1300,2100 [facility] Last Admin: 07/24/17 07:16 Dose: 300 mcg Potassium Chloride (Potassium Chloride Oral Soln) 20 meq PO BID [facility] Last Admin: 07/23/17 09:05 Dose: Not Given Saccharomyces Boulardii (Florastor) 250 mg PO BID [facility] Last Admin: 07/23/17 09:00 Dose: Not Given - Labs Labs: 07/23/17 04:45 07/23/17 04:45 PT 15.9 Seconds (9.8-13.1) H 07/22/17 05:20 INR 1.4 (0.9-1.2) H 07/22/17 05:20 APTT 39.1 Seconds (25.6-37.1) H 07/22/17 05:20 - Constitutional Appears: No Acute Distress - Head Exam Head Exam: ATRAUMATIC, NORMAL INSPECTION, NORMOCEPHALIC - Respiratory Exam Respiratory Exam: NORMAL BREATHING PATTERN. absent: Respiratory Distress - Cardiovascular Exam Cardiovascular Exam: Tachycardia - GI/Abdominal Exam GI & Abdominal Exam: Soft, Tenderness (mild). absent: Distended, Firm, Guarding Additional comments: midline incision w/ steffi and open areas with feculant drainage, packed with iodoform and dressing applied; b/l preet drains with smalll amt. serous drainage - Neurological Exam Neurological Exam: Alert, Oriented x3 - Psychiatric Exam Psychiatric exam: Normal Affect, Normal Mood - Skin Skin Exam: Dry, Intact Assessment and Plan - Assessment and Plan (Free Text) Assessment: 72M s/p ex-lap for perforated viscous with Small bowel resection with anastomosis POD#16, with post-op leak -Continue NPO, NGT to suction -PICC today and start TPN -Continue Octreotide -IV Abx -Is/Os -Packing changes daily and dressing changes PRN -Abdominal binder -Medical management as per ICU DW Dr Worthy <Mook Worthy - Last Filed: 07/25/17 10:59> Objective - Vital Signs/Intake and Output Vital Signs (last 24 hours): Temp Pulse Resp BP Pulse Ox 98.6 F 88 20 123/76 100 07/25/17 08:00 07/25/17 08:00 07/25/17 08:00 07/25/17 08:53 07/25/17 08:00 Intake and Output: 07/25/17 07/25/17 06:59 18:59 Intake Total 540 Output Total 550 Balance -10 - Medications Medications: Current Medications Acetaminophen (Tylenol 325mg Tab) 650 mg PO Q4 PRN PRN Reason: Pain, moderate (4-7) Diltiazem HCl (Cardizem) 60 mg PO Q8 [facility] Last Admin: 07/23/17 09:00 Dose: Not Given Furosemide (Lasix) 20 mg IVP DAILY [facility] Last Admin: 07/25/17 08:53 Dose: 20 mg Meropenem 1 gm/ Sodium (Chloride) 100 mls @ 100 mls/hr IVPB Q8 [facility] PRN Reason: Protocol Last Admin: 07/25/17 08:54 Dose: 100 mls/hr Micafungin Sodium 100 mg/ (Sodium Chloride) 100 mls @ 100 mls/hr IVPB DAILY [facility] PRN Reason: Protocol Last Admin: 07/24/17 10:07 Dose: 100 mls/hr Multivitamins/Vitamin C 10 ml/Chromium/Copper/Manganese/Zinc 3 ml/ Amino Acids/ Electrolytes/Dextrose 1,013 mls @ 40 mls/hr IV .Q24H [facility] Stop: 07/25/17 13:59 Last Admin: 07/24/17 18:00 Dose: 40 mls/hr Metoprolol Tartrate (Lopressor) 5 mg IVP Q6H [facility] Last Admin: 07/25/17 05:50 Dose: 5 mg Morphine Sulfate (Morphine) 6 mg IVP Q4 PRN PRN Reason: Pain, severe (8-10) Last Admin: 07/25/17 08:50 Dose: 6 mg Mupirocin (Bactroban Ointment) 1 applic TOP BID [facility] Last Admin: 07/25/17 08:53 Dose: 1 applic Octreotide Acetate (Sandostatin) 300 mcg SC Q8@0500,1300,2100 [facility] Last Admin: 07/25/17 05:51 Dose: 300 mcg Potassium Chloride (Potassium Chloride Oral Soln) 20 meq PO BID [facility] Last Admin: 07/23/17 09:05 Dose: Not Given Saccharomyces Boulardii (Florastor) 250 mg PO BID [facility] Last Admin: 07/23/17 09:00 Dose: Not Given - Labs Labs: 07/25/17 04:20 07/25/17 06:35 PT 15.9 Seconds (9.8-13.1) H 07/22/17 05:20 INR 1.4 (0.9-1.2) H 07/22/17 05:20 APTT 39.1 Seconds (25.6-37.1) H 07/22/17 05:20 Attending/Attestation - Attestation I have personally seen and examined this patient.: Yes I have fully participated in the care of the patient.: Yes I have reviewed all pertinent clinical information, including history, physical exam and plan: Yes Notes (Text): Pt was seen and examined at bedside Agree with above note and assessment Pt had PICC Line today start TPN c.w current mx IV antibiotics Plan d.w pt in detail Risk and benefit explained in detail.
[2017-07-24 08:59] LABS: HEMOGLOBIN 9.3 g/dL (12.0-18.0); MEAN CELL VOLUME 97.7 fl (80.0-94.0); MEAN CORPUSCULAR HEMOGLOBIN 33.1 pg (27.0-31.0); MEAN CORPUSCULAR HGB CONC 33.9 g/dL (33.0-37.0); RBC 2.79 Mil/uL (4.40-5.90); RED CELL DISTRIBUTION WIDTH 16.2 % (11.5-14.5); WHITE BLOOD COUNT 3.1 K/uL (4.8-10.8)
[2017-07-24 09:21] LABS: ALB/GLOB RATIO 0.6 (1.0-2.1); ALBUMIN 1.6 g/dL (3.5-5.0); ALT/SGPT 25 U/L (21-72); AST/SGOT 12 U/L (17-59); BLOOD UREA NITROGEN 22 mg/dl (9-20); CALCIUM 6.9 mg/dL (8.4-10.2); GFR AFRICAN-AMERICAN > 60; GFR NON-AFRICAN AMERICAN > 60
[2017-07-24] MEDS: Micafungin 100 MG in Sodium Chloride 0.9% 100 ML IVPB SCH (10:07)
[2017-07-24 12:56] LABS: HDL CHOLESTEROL 14 MG/DL (30-70)
[2017-07-24 13:00] LABS: LDL CHOLESTEROL < 30 mg/dL (0-129)
--- NOTE | 2017-07-24 13:08 | PCM.SURG1 ---
Surgeon's Initial Post Op Note - Surgeon's Notes Surgeon: Antione Beckwith MD Manager Primary: NONE Type of Anesthesia: Local Pre-Operative Diagnosis: Poor venous access, malnutrition Operative Findings: US showed patent right basilic vein Post-Operative Diagnosis: Poor venous access, malnutrition requiring TPN Operation Performed: Dual lumen picc right basilic vein, 35 cm. Tip is in the SVC. Specimen/Specimens Removed: none Estimated Blood Loss: EBL {In ML}: 2 Blood Products Given: N/A Post-Op Condition: Poor Date of Surgery/Procedure: 07/24/17 Time of Surgery/Procedure: 13:05
--- NOTE | 2017-07-24 13:16 | CP.PCM.PN ---
<Brandon Kauffman - Last Filed: 07/24/17 14:31> Subjective - Date & Time of Evaluation Date of Evaluation: 07/24/17 Time of Evaluation: 10:45 - Subjective Subjective: Stable. NPO with NGT cont suction. Afebrile. Wound growing Bessy. Already on Micafungin. S/P Plt transfusion over the weekend. Clinically loos improved since last week. Still c/o abd pain but seems in less distress than previous days Objective - Vital Signs/Intake and Output Vital Signs (last 24 hours): Temp Pulse Resp BP Pulse Ox 98.1 F 106 H 20 110/76 99 07/24/17 13:10 07/24/17 13:10 07/24/17 13:10 07/24/17 13:10 07/24/17 13:10 Intake and Output: 07/24/17 07/24/17 06:59 18:59 Intake Total 1430 200 Output Total 1315 Balance 115 200 - Medications Medications: Current Medications Acetaminophen (Tylenol 325mg Tab) 650 mg PO Q4 PRN PRN Reason: Pain, moderate (4-7) Diltiazem HCl (Cardizem) 60 mg PO Q8 [facility] Last Admin: 07/23/17 09:00 Dose: Not Given Furosemide (Lasix) 20 mg IVP DAILY [facility] Last Admin: 07/24/17 10:08 Dose: 20 mg Meropenem 1 gm/ Sodium (Chloride) 100 mls @ 100 mls/hr IVPB Q8 [facility] PRN Reason: Protocol Last Admin: 07/24/17 10:06 Dose: 100 mls/hr Micafungin Sodium 100 mg/ (Sodium Chloride) 100 mls @ 100 mls/hr IVPB DAILY [facility] PRN Reason: Protocol Last Admin: 07/24/17 10:07 Dose: 100 mls/hr Dextrose/Sodium Chloride (Dextrose 5%-0.45% Ns 500 Ml) 500 mls @ 100 mls/hr IV .Q5H [facility] Stop: 07/24/17 18:16 Last Admin: 07/24/17 03:37 Dose: 100 mls/hr Metoprolol Tartrate (Lopressor) 5 mg IVP Q6 [facility] Last Admin: 07/24/17 12:02 Dose: 5 mg Morphine Sulfate (Morphine) 6 mg IVP Q4 PRN PRN Reason: Pain, severe (8-10) Last Admin: 07/24/17 12:01 Dose: 6 mg Mupirocin (Bactroban Ointment) 1 applic TOP BID [facility] Last Admin: 07/24/17 10:23 Dose: 1 applic Octreotide Acetate (Sandostatin) 300 mcg SC Q8@0500,1300,2100 [facility] Last Admin: 07/24/17 12:03 Dose: 300 mcg Potassium Chloride (Potassium Chloride Oral Soln) 20 meq PO BID [facility] Last Admin: 07/23/17 09:05 Dose: Not Given Saccharomyces Boulardii (Florastor) 250 mg PO BID [facility] Last Admin: 07/23/17 09:00 Dose: Not Given - Labs Labs: 07/24/17 08:40 07/24/17 08:40 PT 15.9 Seconds (9.8-13.1) H 07/22/17 05:20 INR 1.4 (0.9-1.2) H 07/22/17 05:20 APTT 39.1 Seconds (25.6-37.1) H 07/22/17 05:20 - Constitutional Appears: Non-toxic, Chronically Ill - Eye Exam Eye Exam: PERRL - ENT Exam ENT Exam: Mucous Membranes Moist - Respiratory Exam Respiratory Exam: NORMAL BREATHING PATTERN. absent: Rales, Rhonchi, Wheezes, Respiratory Distress - Cardiovascular Exam Cardiovascular Exam: REGULAR RHYTHM, +S1, +S2. absent: Gallop - GI/Abdominal Exam GI & Abdominal Exam: Distended, Guarding, Tenderness, Normal Bowel Sounds. absent: Rigid, Soft, Rebound - Extremities Exam Extremities Exam: Normal Capillary Refill, Pedal Edema. absent: Calf Tenderness - Neurological Exam Neurological Exam: Alert, Awake, Oriented x3 - Skin Skin Exam: Pallor, Warm Assessment and Plan - Assessment and Plan (Free Text) Assessment: WCx = for CA: C/w Micafungin as per ID Pancitpenia: plts improved after transfusion. No active bleeding S/P perforated viscus: Abd pain, Surgery on board, NPO, NGT with cont suct wound care PICC line and will be started on TPN as per sx c/w Abx <Bronson Castaneda - Last Filed: 07/30/17 14:12> Objective - Vital Signs/Intake and Output Vital Signs (last 24 hours): Temp Pulse Resp BP Pulse Ox 98.3 F 70 30 H 116/73 100 07/30/17 12:00 07/30/17 12:17 07/30/17 12:00 07/30/17 12:17 07/30/17 12:00 Intake and Output: 07/30/17 07/30/17 06:59 18:59 Intake Total 1080 750 Output Total 810 Balance 270 750 - Medications Medications: Current Medications Acetaminophen (Tylenol 325mg Tab) 650 mg PO Q4 PRN PRN Reason: Pain, moderate (4-7) Furosemide (Lasix) 20 mg IVP DAILY [facility] Last Admin: 07/30/17 08:55 Dose: 20 mg Meropenem 1 gm/ Sodium (Chloride) 100 mls @ 100 mls/hr IVPB Q8 [facility] PRN Reason: Protocol Last Admin: 07/30/17 08:57 Dose: 100 mls/hr Micafungin Sodium 100 mg/ (Sodium Chloride) 100 mls @ 100 mls/hr IVPB DAILY [facility] PRN Reason: Protocol Last Admin: 07/30/17 08:58 Dose: 100 mls/hr Sodium Chloride 70 meq/Potassium Phosphate 30 mmole/Magnesium Sulfate 10 meq/ Calcium Gluconate 10 meq/Amino Acids 1,051.4683 mls @ 70 mls/hr IV .Q15H2M ONE Stop: 07/30/17 23:01 Fat Emulsion Intravenous (Intralipid 20%) 250 mls @ 40 mls/hr IV .Q6H15M [facility] Stop: 07/30/17 16:29 Last Admin: 07/30/17 12:17 Dose: Not Given Potassium Chloride (Potassium Chloride 20 Meq/100 Ml) 100 mls @ 50 mls/hr IVPB Q2 [facility] Stop: 07/30/17 17:59 Last Admin: 07/30/17 12:19 Dose: 50 mls/hr Insulin Human Lispro (Humalog) 0 units SC Q6H [facility] PRN Reason: Protocol Last Admin: 07/30/17 12:15 Dose: 2 u Metoprolol Tartrate (Lopressor) 5 mg IVP 0000,0600,1200,1800 [facility] Last Admin: 07/30/17 12:17 Dose: 5 mg Morphine Sulfate (Morphine) 8 mg IVP Q4 PRN PRN Reason: Pain, moderate (4-7) Last Admin: 07/30/17 10:16 Dose: 8 mg Mupirocin (Bactroban Ointment) 1 applic TOP BID [facility] Last Admin: 07/30/17 08:54 Dose: 1 applic Octreotide Acetate (Sandostatin) 300 mcg SC Q8@0500,1300,2100 [facility] Last Admin: 07/30/17 12:20 Dose: 300 mcg Potassium Chloride (Potassium Chloride Oral Soln) 20 meq PO BID [facility] Last Admin: 07/23/17 09:05 Dose: Not Given - Labs Labs: 07/30/17 04:35 07/30/17 06:30 PT 15.9 Seconds (9.8-13.1) H 07/22/17 05:20 INR 1.4 (0.9-1.2) H 07/22/17 05:20 APTT 39.1 Seconds (25.6-37.1) H 07/22/17 05:20 Assessment and Plan (1) Abdominal pain Status: Acute (2) COPD (chronic obstructive pulmonary disease) Status: Acute (3) Essential (primary) hypertension Status: Acute (4) Hx of atrial fibrillation, no current medication Status: Acute (5) Intestinal perforation Status: Acute (6) Perforated abdominal viscus Status: Acute (7) Atrial fibrillation Status: Acute (8) Anemia Status: Acute (9) Thrombocytopenia Status: Acute (10) Abscess Status: Acute - Assessment and Plan (Free Text) Plan: I was present during evaluation and discussed with Dr Jamari shine plans of care and tx. Bronson Castaneda M.D.
--- NOTE | 2017-07-24 13:42 | VASCULAR ---
PROCEDURE: Date of procedure: 07/24/2017 Procedure: 1. Placement of a right arm PICC with ultrasound and fluoroscopic guidance, CPT 20607 2. PICC tip confirmation with spot radiograph and is in the superior vena cava Medications: 4cc 1 percent lidocaine Total Fluoro time: 2.4 seconds Radiation: 0.26 MGy EBL: 2 cc HISTORY: Poor venous access, bowel perforation, PICC required for TPN TECHNIQUE: Following informed consent and procedure time-out, the patient was placed supine on the interventional table and the right arm prepped and draped in the usual sterile fashion. Ultrasound showed a patent and compressible right basilic vein. After the skin was anesthetized with lidocaine, the basilic vein was accessed with micro micropuncture technique using ultrasound guidance. A guidewire was then advanced under fluoroscopic guidance into the superior vena cava. An image documenting ultrasound guidance for vascular access was permanently saved. The length of the dual -lumen 5 [place] PICC was trimmed to 35 centimeters and advanced through a peel-away sheath. The PICC was position with tip of PICC confirm a spot radiograph the superior vena cava. The PICC was secured to the patient's skin. The PICC was flushed. A biopatch and sterile dressing was applied. IMPRESSION: Placement of a dual -lumen 5 [place] PICC trimmed to 35 centimeters via right basilic vein. The tip of the PICC is confirmed with spot radiograph and is in the superior vena cava.
[2017-07-24] MEDS ORDERED: Multivitamin (MVI) 10 ML, Chromium/Copper/Manganese/Zinc 3 ML in Amino/Dex E 4.25/25 10... IV ONE (14:00)
--- NOTE | 2017-07-24 14:45 | CP.CCUPN ---
CCU Subjective - Physician Review Events Since Last Encounter (Free Text): 07/24/17 14:42 Patient complains of hunger. I explained to him that we can't be done because of the current week in his bowel. CCU Objective - Vital Signs / Intake & Output Vital Signs (Last 4 hours): Vital Signs Temp Pulse Resp BP Pulse Ox 07/24/17 13:10 98.1 F 106 H 20 110/76 99 07/24/17 12:02 111 H 104/64 07/24/17 12:00 98.3 F 110 H 14 104/64 100 Intake and Output (Last 8hrs): Intake & Output 07/23/17 07/24/17 07/24/17 22:59 06:59 14:59 Intake Total 1602 1030 200 Output Total 1312 1315 Balance 290 -285 200 Intake: IV 1100 800 Intake, Piggyback 300 100 200 Oral 130 Blood Product 202 Output: Gastric Amount 200 200 Left Nares 200 200 Drainage 12 15 Left 5 10 Right 7 5 Urine 1100 1100 Urethral (Connors) 1100 1100 Other: # Bowel Movements 0 - Physical Exam Head: Positive for: Normocephalic Pupils: Positive for: PERRL Conjunctiva: Negative for: Icteric Mouth: Positive for: Moist Mucous Membranes Neck: Negative for: JVD Respiratory/Chest: Positive for: Clear to Auscultation, Decreased Breath Sounds. Negative for: Accessory Muscle Use, Wheezes, Rhonchi Cardiovascular: Positive for: Irregular Rhythm, Tachycardic. Negative for: Murmurs, Rub Abdomen: Positive for: Tenderness, Other (leaking stool like material from surgical wound). Negative for: Distention, Normal Bowel Sounds, Rebound, Guarding, Mass/Organomegaly Lower Extremity: Positive for: NORMAL PULSES. Negative for: CALF TENDERNESS, Cyanosis Neurological: Positive for: Motor Func Grossly Intact, Normal Sensory Function Skin: Positive for: Warm, Dry. Negative for: Rashes Psychiatric: Positive for: Alert, Oriented x 3 - Medications Active Medications: Active Medications Generic Name Dose Route Start Last Admin Trade Name Freq PRN Reason Stop Dose Admin Acetaminophen 650 mg 07/13/17 07:49 Tylenol 325mg Tab PO Q4 PRN Pain, moderate (4-7) Diltiazem HCl 60 mg 07/15/17 17:00 07/23/17 09:00 Cardizem PO Not Given Q8 [facility] Furosemide 20 mg 07/14/17 09:00 07/24/17 10:08 Lasix IVP 20 mg DAILY [facility] Administration Meropenem 1 gm/ Sodium 100 mls @ 100 mls/hr 07/22/17 17:00 07/24/17 10:06 Chloride IVPB 100 mls/hr Q8 [facility] Administration Protocol Micafungin Sodium 100 mg/ 100 mls @ 100 mls/hr 07/22/17 14:15 07/24/17 10:07 Sodium Chloride IVPB 100 mls/hr DAILY [facility] Administration Protocol Dextrose/Sodium Chloride 500 mls @ 100 mls/hr 07/23/17 18:15 07/24/17 03:37 Dextrose 5%-0.45% Ns 500 Ml IV 07/24/17 18:16 100 mls/hr .Q5H [facility] Administration Multivitamins/Vitamin C 10 ml/ 1,013 mls @ 40 mls/hr 07/24/17 14:00 Chromium/Copper/Manganese/ IV 07/25/17 13:59 Zinc 3 ml/ Amino Acids/ .Q24H ONE Electrolytes/Dextrose Metoprolol Tartrate 5 mg 07/24/17 16:00 07/24/17 12:02 Lopressor IVP 5 mg Q6 [facility] Administration Morphine Sulfate 6 mg 07/21/17 09:30 07/24/17 12:01 Morphine IVP 6 mg Q4 PRN Administration Pain, severe (8-10) Mupirocin 1 applic 07/09/17 20:15 07/24/17 10:23 Bactroban Ointment TOP 1 applic BID [facility] Administration Octreotide Acetate 300 mcg 07/22/17 21:00 07/24/17 12:03 Sandostatin SC 300 mcg Q8@0500,1300,2100 [facility] Administration Potassium Chloride 20 meq 07/16/17 17:00 07/23/17 09:05 Potassium Chloride Oral Soln PO Not Given BID [facility] Saccharomyces Boulardii 250 mg 07/13/17 17:00 07/23/17 09:00 Florastor PO Not Given BID [facility] - Patient Studies Lab Studies: Microbiology Studies 07/22/17 07:55 Gram Stain - Final Abdomen Wound Culture - Final Bessy Albicans 07/22/17 07:55 MRSA Culture (Admit) - Final Naris MRSA NOT DETECTED Lab Studies 0307/24/17 07/24/17 Range/Units 12:20 08:40 08:40 WBC 3.1 L (4.8-10.8) K/uL RBC 2.79 L (4.40-5.90) Mil/uL Hgb 9.3 L (12.0-18.0) g/dL Hct 27.3 L (35.0-51.0) % MCV 97.7 H (80.0-94.0) fl MCH 33.1 H (27.0-31.0) pg MCHC 33.9 (33.0-37.0) g/dL RDW 16.2 H (11.5-14.5) % Plt Count 39 L D (130-400) K/uL Sodium 134 (132-148) mmol/l Potassium 3.8 (3.6-5.0) MMOL/L Chloride 103 (98-107) mmol/L Carbon Dioxide 24 (22-30) mmol/L Anion Gap 11 (10-20) BUN 22 H (9-20) mg/dl Creatinine 0.7 L (0.8-1.5) mg/dl Est GFR ( Amer) > 60 Est GFR (Non-Af Amer) > 60 POC Glucose (mg/dL) (65-110) mg/dL Random Glucose 149 H (75-110) mg/dL Calcium 6.9 L (8.4-10.2) mg/dL Phosphorus 2.1 L (2.5-4.5) mg/dl Magnesium 1.6 (1.6-2.3) MG/DL Total Bilirubin 0.4 (0.2-1.3) mg/dl AST 12 L (17-59) U/L ALT 25 (21-72) U/L Alkaline Phosphatase 53 (38-126) U/L Total Protein 4.2 L (6.3-8.2) G/DL Albumin 1.6 L (3.5-5.0) g/dL Globulin 2.6 (2.2-3.9) gm/dL Albumin/Globulin Ratio 0.6 L (1.0-2.1) Triglycerides 78 D (0-149) mg/DL Cholesterol < 50 (0-199) mg/dL LDL Cholesterol Direct < 30 (0-129) mg/dL HDL Cholesterol 14 L (30-70) MG/DL 07/23/17 Range/Units 21:09 WBC (4.8-10.8) K/uL RBC (4.40-5.90) Mil/uL Hgb (12.0-18.0) g/dL Hct (35.0-51.0) % MCV (80.0-94.0) fl MCH (27.0-31.0) pg MCHC (33.0-37.0) g/dL RDW (11.5-14.5) % Plt Count (130-400) K/uL Sodium (132-148) mmol/l Potassium (3.6-5.0) MMOL/L Chloride (98-107) mmol/L Carbon Dioxide (22-30) mmol/L Anion Gap (10-20) BUN (9-20) mg/dl Creatinine (0.8-1.5) mg/dl Est GFR ( Amer) Est GFR (Non-Af Amer) POC Glucose (mg/dL) 68 (65-110) mg/dL Random Glucose (75-110) mg/dL Calcium (8.4-10.2) mg/dL Phosphorus (2.5-4.5) mg/dl Magnesium (1.6-2.3) MG/DL Total Bilirubin (0.2-1.3) mg/dl AST (17-59) U/L ALT (21-72) U/L Alkaline Phosphatase (38-126) U/L Total Protein (6.3-8.2) G/DL Albumin (3.5-5.0) g/dL Globulin (2.2-3.9) gm/dL Albumin/Globulin Ratio (1.0-2.1) Triglycerides (0-149) mg/DL Cholesterol (0-199) mg/dL LDL Cholesterol Direct (0-129) mg/dL HDL Cholesterol (30-70) MG/DL Laboratory Results - last 24 hr 07/23/17 07/24/17 07/24/17 21:09 08:40 08:40 WBC 3.1 L RBC 2.79 L Hgb 9.3 L Hct 27.3 L MCV 97.7 H MCH 33.1 H MCHC 33.9 RDW 16.2 H Plt Count 39 L D Sodium 134 Potassium 3.8 Chloride 103 Carbon Dioxide 24 Anion Gap 11 BUN 22 H Creatinine 0.7 L Est GFR ( Amer) > 60 Est GFR (Non-Af Amer) > 60 POC Glucose (mg/dL) 68 Random Glucose 149 H Calcium 6.9 L Phosphorus Magnesium 1.6 Total Bilirubin 0.4 AST 12 L ALT 25 Alkaline Phosphatase 53 Total Protein 4.2 L Albumin 1.6 L Globulin 2.6 Albumin/Globulin Ratio 0.6 L Triglycerides Cholesterol LDL Cholesterol Direct HDL Cholesterol 07/24/17 12:20 WBC RBC Hgb Hct MCV MCH MCHC RDW Plt Count Sodium Potassium Chloride Carbon Dioxide Anion Gap BUN Creatinine Est GFR ( Amer) Est GFR (Non-Af Amer) POC Glucose (mg/dL) Random Glucose Calcium Phosphorus 2.1 L Magnesium Total Bilirubin AST ALT Alkaline Phosphatase Total Protein Albumin Globulin Albumin/Globulin Ratio Triglycerides 78 D Cholesterol < 50 LDL Cholesterol Direct < 30 HDL Cholesterol 14 L Fingerstick Blood Sugar Results: 165 Review of Systems - Review of Systems All systems: reviewed and no additional remarkable complaints except - Gastrointestinal Gastrointestinal: Abdominal Pain Critical Care Progress Note - Nutrition Nutrition: Nutrition Category Date Time Status NPO Diet [DIET] Diets 07/21/17 Breakfast Active Assessment/Plan (1) Intestinal perforation Assessment and plan: 72 year old male with a past medical history of HTN, atrial fibrillation and deep vein thrombosis present to the emergency department complaining of abdominal pain which began x2 hours prior to arrival. Patient admitted with Acute abdomen, free air sec to perforated viscous. 07/08 , Underwent Jejunal perforation repair, small bowel resection and primary anastomosis, enterolysis, Irrisept irrigation, TEP block, RIJ TLC placement, NGT placement. Neuro: Alert and oriented 3 Pulm: No acute issues, breathing spontaneously on room air CV: Hemodynamically stable Hem: Thrombocytopenia secondary to sepsis. Transfusing another unit of platelets today (this will be the second unit in 2 days). Renal: No acute issues, monitoring urine output. Endo: No acute issues GI: Nothing by mouth. Feculent-appearing material coming out of the surgical wound, we'll have to consider Gastrografin study to assess continuity of bowel. 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 ID: Sepsis from intestinal perforation, continue meropenem and micafungin. DVT proph - SCD's, a/c held with severe thrombocyotpenia GI proph - not currently indicated connors for strict I/O's during acute illness right upper extremity PICC (07/24) Code status - full code Critical Care Time spent 35 minutes Multi-disciplinary rounds were performed with house staff, nursing, speech therapy, respiratory therapy, pharmacy and nutrition with integrated input from the primary team/attending and other consulting services. The documented time is cumulative and includes review of patient data/exams/labs/chart review and examination of the patient on rounds and throughout the day; time is exclusive of any procedures or teaching time. Current Visit: Yes Status: Acute Priority: High Comment: S/P Laprotomy, for perforated bowel NPO, High brown drainage from midline wound Will start parentral nutrition once central line placed, pending platelets transfusion
[2017-07-24] MEDS ORDERED: Metoprolol 1 mg/ml Inj IVP SCH (16:00)
[2017-07-24] MEDS: Metoprolol 1 mg/ml Inj IVP SCH (18:39)
--- NOTE | 2017-07-24 21:22 | CP.PCM.PN ---
Subjective - Date & Time of Evaluation Date of Evaluation: 07/24/17 Time of Evaluation: 18:00 - Subjective Subjective: Feels hungry Objective - Vital Signs/Intake and Output Vital Signs (last 24 hours): Temp Pulse Resp BP Pulse Ox 98 F 79 14 124/68 100 07/24/17 20:00 07/24/17 20:58 07/24/17 20:58 07/24/17 20:58 07/24/17 20:58 Intake and Output: 07/24/17 07/25/17 18:59 06:59 Intake Total 496 40 Output Total 2100 Balance -1604 40 - Medications Medications: Current Medications Acetaminophen (Tylenol 325mg Tab) 650 mg PO Q4 PRN PRN Reason: Pain, moderate (4-7) Diltiazem HCl (Cardizem) 60 mg PO Q8 [facility] Last Admin: 07/23/17 09:00 Dose: Not Given Furosemide (Lasix) 20 mg IVP DAILY [facility] Last Admin: 07/24/17 10:08 Dose: 20 mg Meropenem 1 gm/ Sodium (Chloride) 100 mls @ 100 mls/hr IVPB Q8 [facility] PRN Reason: Protocol Last Admin: 07/24/17 16:09 Dose: 100 mls/hr Micafungin Sodium 100 mg/ (Sodium Chloride) 100 mls @ 100 mls/hr IVPB DAILY [facility] PRN Reason: Protocol Last Admin: 07/24/17 10:07 Dose: 100 mls/hr Multivitamins/Vitamin C 10 ml/Chromium/Copper/Manganese/Zinc 3 ml/ Amino Acids/ Electrolytes/Dextrose 1,013 mls @ 40 mls/hr IV .Q24H ONE Stop: 07/25/17 13:59 Last Admin: 07/24/17 18:00 Dose: 40 mls/hr Metoprolol Tartrate (Lopressor) 5 mg IVP Q6H [facility] Last Admin: 07/24/17 18:39 Dose: 5 mg Morphine Sulfate (Morphine) 6 mg IVP Q4 PRN PRN Reason: Pain, severe (8-10) Last Admin: 07/24/17 20:57 Dose: 6 mg Mupirocin (Bactroban Ointment) 1 applic TOP BID [facility] Last Admin: 07/24/17 16:08 Dose: 1 applic Octreotide Acetate (Sandostatin) 300 mcg SC Q8@0500,1300,2100 [facility] Last Admin: 07/24/17 12:03 Dose: 300 mcg Potassium Chloride (Potassium Chloride Oral Soln) 20 meq PO BID [facility] Last Admin: 07/23/17 09:05 Dose: Not Given Saccharomyces Boulardii (Florastor) 250 mg PO BID [facility] Last Admin: 07/23/17 09:00 Dose: Not Given - Labs Labs: 07/24/17 08:40 07/24/17 08:40 PT 15.9 Seconds (9.8-13.1) H 07/22/17 05:20 INR 1.4 (0.9-1.2) H 07/22/17 05:20 APTT 39.1 Seconds (25.6-37.1) H 07/22/17 05:20 - Head Exam Head Exam: ATRAUMATIC - Eye Exam Eye Exam: Normal appearance - ENT Exam ENT Exam: Mucous Membranes Dry - Respiratory Exam Respiratory Exam: NORMAL BREATHING PATTERN - Cardiovascular Exam Cardiovascular Exam: +S1, +S2 - GI/Abdominal Exam GI & Abdominal Exam: Normal Bowel Sounds Assessment and Plan (1) Pancytopenia Assessment & Plan: WBC and H/H fairly stable platelets cont. to drop s/p platelet transfusion suspect sepsis related no current DIC; repeat fibrinogen Status: Acute
[2017-07-24] MEDS ORDERED: Chlorhexidine Gluconate 1 APPL/PKT TP ONE (22:04)
[2017-07-25] MEDS: Metoprolol 1 mg/ml Inj IVP SCH ×4 (00:12→18:25)
[2017-07-25] MEDS: Meropenem 1 GM in Sodium Chloride 0.9% 100 ML IVPB SCH ×3 (00:13→18:26)
[2017-07-25] MEDS: Morphine 4 MG/ML VIAL IVP PRN ×4 (03:27→19:36)
[2017-07-25] MEDS: Octreotide 500 mcg/ml Inj SC SCH ×3 (05:51→20:30)
[2017-07-25 05:57] LABS: HEMOGLOBIN 7.9 g/dL (12.0-18.0); MEAN CELL VOLUME 100.2 fl (80.0-94.0); MEAN CORPUSCULAR HEMOGLOBIN 33.2 pg (27.0-31.0); MEAN CORPUSCULAR HGB CONC 33.1 g/dL (33.0-37.0); RBC 2.37 Mil/uL (4.40-5.90); RED CELL DISTRIBUTION WIDTH 16.2 % (11.5-14.5); WHITE BLOOD COUNT 3.9 K/uL (4.8-10.8)
[2017-07-25 06:00] LABS: BLOOD UREA NITROGEN 19 mg/dl (9-20); GFR AFRICAN-AMERICAN > 60; GFR NON-AFRICAN AMERICAN > 60
[2017-07-25 06:55] LABS: BLOOD UREA NITROGEN 20 mg/dl (9-20); GFR AFRICAN-AMERICAN > 60; GFR NON-AFRICAN AMERICAN > 60
--- NOTE | 2017-07-25 10:12 | CP.PCM.PN ---
<Brandon Kauffman - Last Filed: 07/25/17 10:12> Subjective - Date & Time of Evaluation Date of Evaluation: 07/25/17 Time of Evaluation: 09:50 - Subjective Subjective: c/o abd pain and feeling hungry. feels better than yesterday. Still NPO with NGT low suction. good dyuresis. Denies vomiting, nausea. Objective - Vital Signs/Intake and Output Vital Signs (last 24 hours): Temp Pulse Resp BP Pulse Ox 98.6 F 88 20 123/76 100 07/25/17 08:00 07/25/17 08:00 07/25/17 08:00 07/25/17 08:53 07/25/17 08:00 Intake and Output: 07/25/17 07/25/17 06:59 18:59 Intake Total 540 Output Total 550 Balance -10 - Medications Medications: Current Medications Acetaminophen (Tylenol 325mg Tab) 650 mg PO Q4 PRN PRN Reason: Pain, moderate (4-7) Diltiazem HCl (Cardizem) 60 mg PO Q8 [facility] Last Admin: 07/23/17 09:00 Dose: Not Given Furosemide (Lasix) 20 mg IVP DAILY [facility] Last Admin: 07/25/17 08:53 Dose: 20 mg Meropenem 1 gm/ Sodium (Chloride) 100 mls @ 100 mls/hr IVPB Q8 [facility] PRN Reason: Protocol Last Admin: 07/25/17 08:54 Dose: 100 mls/hr Micafungin Sodium 100 mg/ (Sodium Chloride) 100 mls @ 100 mls/hr IVPB DAILY [facility] PRN Reason: Protocol Last Admin: 07/24/17 10:07 Dose: 100 mls/hr Multivitamins/Vitamin C 10 ml/Chromium/Copper/Manganese/Zinc 3 ml/ Amino Acids/ Electrolytes/Dextrose 1,013 mls @ 40 mls/hr IV .Q24H ONE Stop: 07/25/17 13:59 Last Admin: 07/24/17 18:00 Dose: 40 mls/hr Metoprolol Tartrate (Lopressor) 5 mg IVP Q6H [facility] Last Admin: 07/25/17 05:50 Dose: 5 mg Morphine Sulfate (Morphine) 6 mg IVP Q4 PRN PRN Reason: Pain, severe (8-10) Last Admin: 07/25/17 08:50 Dose: 6 mg Mupirocin (Bactroban Ointment) 1 applic TOP BID [facility] Last Admin: 07/25/17 08:53 Dose: 1 applic Octreotide Acetate (Sandostatin) 300 mcg SC Q8@0500,1300,2100 [facility] Last Admin: 07/25/17 05:51 Dose: 300 mcg Potassium Chloride (Potassium Chloride Oral Soln) 20 meq PO BID [facility] Last Admin: 07/23/17 09:05 Dose: Not Given Saccharomyces Boulardii (Florastor) 250 mg PO BID [facility] Last Admin: 07/23/17 09:00 Dose: Not Given - Labs Labs: 07/25/17 04:20 07/25/17 06:35 PT 15.9 Seconds (9.8-13.1) H 07/22/17 05:20 INR 1.4 (0.9-1.2) H 07/22/17 05:20 APTT 39.1 Seconds (25.6-37.1) H 07/22/17 05:20 - Constitutional Appears: Non-toxic, Chronically Ill - Eye Exam Eye Exam: EOMI, PERRL - ENT Exam ENT Exam: Mucous Membranes Dry (Slightly) - Respiratory Exam Respiratory Exam: Clear to Ausculation Bilateral, NORMAL BREATHING PATTERN. absent: Rales, Rhonchi, Wheezes, Stridor - Cardiovascular Exam Cardiovascular Exam: REGULAR RHYTHM, +S1, +S2. absent: Gallop - GI/Abdominal Exam GI & Abdominal Exam: Distended, Firm, Guarding, Tenderness. absent: Rigid, Rebound - Extremities Exam Extremities Exam: Normal Capillary Refill. absent: Calf Tenderness, Pedal Edema , Tenderness - Neurological Exam Neurological Exam: Alert, Awake, Oriented x3 - Skin Skin Exam: Pallor, Warm Assessment and Plan - Assessment and Plan (Free Text) Assessment: sepsis due to perforated viscus C/W IV Abx. ID consult appreciated NPO. NGT. F/u surgery recs TPN running Pancitopenia stable likely sepsis related <Bronson Castaneda - Last Filed: 07/30/17 14:12> Objective - Vital Signs/Intake and Output Vital Signs (last 24 hours): Temp Pulse Resp BP Pulse Ox 98.3 F 70 30 H 116/73 100 07/30/17 12:00 07/30/17 12:17 07/30/17 12:00 07/30/17 12:17 07/30/17 12:00 Intake and Output: 07/30/17 07/30/17 06:59 18:59 Intake Total 1080 750 Output Total 810 Balance 270 750 - Medications Medications: Current Medications Acetaminophen (Tylenol 325mg Tab) 650 mg PO Q4 PRN PRN Reason: Pain, moderate (4-7) Furosemide (Lasix) 20 mg IVP DAILY [facility] Last Admin: 07/30/17 08:55 Dose: 20 mg Meropenem 1 gm/ Sodium (Chloride) 100 mls @ 100 mls/hr IVPB Q8 [facility] PRN Reason: Protocol Last Admin: 07/30/17 08:57 Dose: 100 mls/hr Micafungin Sodium 100 mg/ (Sodium Chloride) 100 mls @ 100 mls/hr IVPB DAILY [facility] PRN Reason: Protocol Last Admin: 07/30/17 08:58 Dose: 100 mls/hr Sodium Chloride 70 meq/Potassium Phosphate 30 mmole/Magnesium Sulfate 10 meq/ Calcium Gluconate 10 meq/Amino Acids 1,051.4683 mls @ 70 mls/hr IV .Q15H2M ONE Stop: 07/30/17 23:01 Fat Emulsion Intravenous (Intralipid 20%) 250 mls @ 40 mls/hr IV .Q6H15M ONE Stop: 07/30/17 16:29 Last Admin: 07/30/17 12:17 Dose: Not Given Potassium Chloride (Potassium Chloride 20 Meq/100 Ml) 100 mls @ 50 mls/hr IVPB Q2 [facility] Stop: 07/30/17 17:59 Last Admin: 07/30/17 12:19 Dose: 50 mls/hr Insulin Human Lispro (Humalog) 0 units SC Q6H [facility] PRN Reason: Protocol Last Admin: 07/30/17 12:15 Dose: 2 u Metoprolol Tartrate (Lopressor) 5 mg IVP 0000,0600,1200,1800 [facility] Last Admin: 07/30/17 12:17 Dose: 5 mg Morphine Sulfate (Morphine) 8 mg IVP Q4 PRN PRN Reason: Pain, moderate (4-7) Last Admin: 07/30/17 10:16 Dose: 8 mg Mupirocin (Bactroban Ointment) 1 applic TOP BID [facility] Last Admin: 07/30/17 08:54 Dose: 1 applic Octreotide Acetate (Sandostatin) 300 mcg SC Q8@0500,1300,2100 [facility] Last Admin: 07/30/17 12:20 Dose: 300 mcg Potassium Chloride (Potassium Chloride Oral Soln) 20 meq PO BID [facility] Last Admin: 07/23/17 09:05 Dose: Not Given - Labs Labs: 07/30/17 04:35 07/30/17 06:30 PT 15.9 Seconds (9.8-13.1) H 07/22/17 05:20 INR 1.4 (0.9-1.2) H 07/22/17 05:20 APTT 39.1 Seconds (25.6-37.1) H 07/22/17 05:20 Assessment and Plan (1) Abdominal pain Status: Acute (2) COPD (chronic obstructive pulmonary disease) Status: Acute (3) Essential (primary) hypertension Status: Acute (4) Hx of atrial fibrillation, no current medication Status: Acute (5) Intestinal perforation Status: Acute (6) Perforated abdominal viscus Status: Acute (7) Atrial fibrillation Status: Acute (8) Anemia Status: Acute (9) Thrombocytopenia Status: Acute (10) Abscess Status: Acute - Assessment and Plan (Free Text) Plan: I was present during evaluation and discussed with Dr Jamari shine plans of care and tx Bronson Castaneda M.D.
[2017-07-25] MEDS: Micafungin 100 MG in Sodium Chloride 0.9% 100 ML IVPB SCH (10:15)
--- NOTE | 2017-07-25 11:11 | CP.PCM.PN ---
Subjective - Date & Time of Evaluation Date of Evaluation: 07/25/17 Time of Evaluation: 11:00 - Subjective Subjective: Has abdominal pain, NG tube replaced overnight Objective - Vital Signs/Intake and Output Vital Signs (last 24 hours): Temp Pulse Resp BP Pulse Ox 98.6 F 88 20 123/76 100 07/25/17 08:00 07/25/17 08:00 07/25/17 08:00 07/25/17 08:53 07/25/17 08:00 Intake and Output: 07/25/17 07/25/17 06:59 18:59 Intake Total 540 Output Total 550 Balance -10 - Medications Medications: Current Medications Acetaminophen (Tylenol 325mg Tab) 650 mg PO Q4 PRN PRN Reason: Pain, moderate (4-7) Diltiazem HCl (Cardizem) 60 mg PO Q8 [facility] Last Admin: 07/23/17 09:00 Dose: Not Given Furosemide (Lasix) 20 mg IVP DAILY [facility] Last Admin: 07/25/17 08:53 Dose: 20 mg Meropenem 1 gm/ Sodium (Chloride) 100 mls @ 100 mls/hr IVPB Q8 [facility] PRN Reason: Protocol Last Admin: 07/25/17 08:54 Dose: 100 mls/hr Micafungin Sodium 100 mg/ (Sodium Chloride) 100 mls @ 100 mls/hr IVPB DAILY [facility] PRN Reason: Protocol Last Admin: 07/24/17 10:07 Dose: 100 mls/hr Multivitamins/Vitamin C 10 ml/Chromium/Copper/Manganese/Zinc 3 ml/ Amino Acids/ Electrolytes/Dextrose 1,013 mls @ 40 mls/hr IV .Q24H ONE Stop: 07/25/17 13:59 Last Admin: 07/24/17 18:00 Dose: 40 mls/hr Metoprolol Tartrate (Lopressor) 5 mg IVP Q6H [facility] Last Admin: 07/25/17 05:50 Dose: 5 mg Morphine Sulfate (Morphine) 6 mg IVP Q4 PRN PRN Reason: Pain, severe (8-10) Last Admin: 07/25/17 08:50 Dose: 6 mg Mupirocin (Bactroban Ointment) 1 applic TOP BID [facility] Last Admin: 07/25/17 08:53 Dose: 1 applic Octreotide Acetate (Sandostatin) 300 mcg SC Q8@0500,1300,2100 [facility] Last Admin: 07/25/17 05:51 Dose: 300 mcg Potassium Chloride (Potassium Chloride Oral Soln) 20 meq PO BID [facility] Last Admin: 07/23/17 09:05 Dose: Not Given Saccharomyces Boulardii (Florastor) 250 mg PO BID [facility] Last Admin: 07/23/17 09:00 Dose: Not Given - Labs Labs: 07/25/17 04:20 07/25/17 06:35 PT 15.9 Seconds (9.8-13.1) H 07/22/17 05:20 INR 1.4 (0.9-1.2) H 07/22/17 05:20 APTT 39.1 Seconds (25.6-37.1) H 07/22/17 05:20 - Head Exam Head Exam: ATRAUMATIC - Eye Exam Eye Exam: Normal appearance - ENT Exam ENT Exam: Mucous Membranes Dry - Respiratory Exam Respiratory Exam: NORMAL BREATHING PATTERN - Cardiovascular Exam Cardiovascular Exam: +S1, +S2 - GI/Abdominal Exam GI & Abdominal Exam: Normal Bowel Sounds Assessment and Plan (1) Pancytopenia Assessment & Plan: H/H dropped; transfusion support PRN - chronic disease and some blood noted in NG tube today platelets stable today suspect sepsis related no current DIC; repeat fibrinogen at baseline - cyanosis at fingertips improved Status: Acute
--- NOTE | 2017-07-25 11:14 | CP.CCUPN ---
CCU Subjective - Physician Review Subjective (Free Text): He is awake and alert, noted to be upset at times during the conversation, NG tube has been reinserted, drainage noted to be approximately 200 mLs overnight ; and remains NPO, on TPN at 40 mL per hour. No overt distress noted. Left fingers and R middle finger slightly dusky, but warm. Scrotal size markedly improved and only minimally edematous with some penile edema c/w overall mild anasarca of hips and extremities. s/p platelet transfusion over the past 2 days. Other Vitals and I/Os reviewed. No fever spikes overnight. Negative fluid balance of 1.6 L noted. ROS: No other pertinent negs or positives on 10+ system review. PMSFH: All other historical Nursing and physician documentation reviewed to date; no new pertinent info noted relevant to current medical problems. EXAM- HEENT: no icterus, no gaze preference, pupils equal and reactive, no icterus NECK: No JVD, supple, carotids equal upstroke bilat/no bruits CHEST: decreased BS bases, otherwise clear bilat, no wheezes audible HEART: regular distant, S1S2, no rubs. ABD: soft, + distention, no tympany, no palp tenderness, BS not audible, yellowish-brown drainage from mid abd wound and left RAMIN. EXT: + edema. No peripheral/ digital cyanosis, no calf tenderness or palpable cords, distal pulses intact and symmetrical. NEURO: no gross focal motor deficits SKIN: no rashes, warm and dry. LABS: WBC= 3.9 HGB= 7.9 PLTs= 40K Na= 136 K= 3.4 CL= 101 HCO3= 28 BUN/Cr= 20/0.7 BS= 173 MAJOR PROBLEMS: 1. Acute Resp Insuff-Post op- resolved. 2. s/p A Fib with RVR 3. Thrombocytopenia 2 Recent Surgery, r/o 2 Sepsis, drug-induced, or possible DIC. 4. Hypokalemia 5. Leukopenia / Thrombocytopenia PLAN: 1. Meropenam and Micafungin as per ID. Dressing / wound mgmt as per Surgical team; on TPN, advance to caloric and fluid goals. Electrolyte and trace element repletion via TPN. 2. Check repeat Fibrinogen level and other coags- pending for today. 3. Off Cardizem drip, has not been able to be given PO Cardizem as well. Remains on IV Lopressor, if tachycardia recurs, would give PRBCs today. 4. Incentive Haris as tolerated. CCU Objective - Vital Signs / Intake & Output Vital Signs (Last 4 hours): Vital Signs Temp Pulse Resp BP Pulse Ox 07/25/17 08:53 123/76 07/25/17 08:00 98.6 F 88 20 123/76 100 Intake and Output (Last 8hrs): Intake & Output 07/24/17 07/25/17 07/25/17 22:59 06:59 14:59 Intake Total 416 420 Output Total 2120 530 Balance -1704 -110 Intake: IV 80 Intake, Piggyback 100 100 Oral 0 0 TPN/PPN 40 240 Blood Product 196 Lipid 80 Output: Gastric Amount 200 0 Left Nares 200 0 Drainage 20 30 Left 5 10 Left Nare 0 Right 15 20 Urine 1900 500 Urethral (Russell) 1900 500 Other: # Bowel Movements 0 0
--- NOTE | 2017-07-25 12:06 | RAD ---
PROCEDURE: Limited chest/abdomen HISTORY: NGT placement COMPARISON: 07/15/2017 TECHNIQUE: AP chest and AP upper abdomen radiographs FINDINGS: There is no pulmonary infiltrate. There are small moderate bilateral pleural effusions. There is no pneumothorax. The heart is normal in size. A nasogastric tube extends to the level of the distal esophagus above the diaphragm. This should be repositioned or replaced. A right PICC catheter is noted terminating in region of the superior vena cava. There are surgical drainage catheter noted in both the right and left side of the abdomen. The bowel gas pattern is nonspecific, with mildly dilated small bowel loops noted. Cannot rule out early mechanical bowel obstruction. Numerous surgical clips are seen in the central upper abdomen. A vena caval filter is noted. There is no evidence of pneumoperitoneum although none of the films are labeled upright and this examination is of questionable sensitivity, therefore, for detection of pneumoperitoneum. IMPRESSION: Nasogastric tube appears to terminate above the level of the diaphragm and should be repositioned or replaced. This finding was discussed with the patient's nurse, Jasmine, at 11:34 a.m. on 07/25/2017.
--- NOTE | 2017-07-25 12:56 | CP.PCM.PN ---
<Wojciech Miller - Last Filed: 07/25/17 12:58> Subjective - Date & Time of Evaluation Date of Evaluation: 07/25/17 Time of Evaluation: 10:00 - Subjective Subjective: SURGERY NOTE FOR DR. WORTHY 72M seen and examined at bedside. Patient now with PICC in right arm receiving TPN. States diffused mild abdominal pain, denies nausea, vomiting. NGT in place. Objective - Vital Signs/Intake and Output Vital Signs (last 24 hours): Temp Pulse Resp BP Pulse Ox 98.5 F 80 21 119/73 98 07/25/17 12:00 07/25/17 12:42 07/25/17 12:00 07/25/17 12:42 07/25/17 12:00 Intake and Output: 07/25/17 07/25/17 06:59 18:59 Intake Total 540 Output Total 550 Balance -10 - Medications Medications: Current Medications Acetaminophen (Tylenol 325mg Tab) 650 mg PO Q4 PRN PRN Reason: Pain, moderate (4-7) Diltiazem HCl (Cardizem) 60 mg PO Q8 [facility] Last Admin: 07/23/17 09:00 Dose: Not Given Furosemide (Lasix) 20 mg IVP DAILY [facility] Last Admin: 07/25/17 08:53 Dose: 20 mg Meropenem 1 gm/ Sodium (Chloride) 100 mls @ 100 mls/hr IVPB Q8 [facility] PRN Reason: Protocol Last Admin: 07/25/17 08:54 Dose: 100 mls/hr Micafungin Sodium 100 mg/ (Sodium Chloride) 100 mls @ 100 mls/hr IVPB DAILY [facility] PRN Reason: Protocol Last Admin: 07/25/17 10:15 Dose: 100 mls/hr Multivitamins/Vitamin C 10 ml/Chromium/Copper/Manganese/Zinc 3 ml/ Amino Acids/ Electrolytes/Dextrose 1,013 mls @ 40 mls/hr IV .Q24H ONE Stop: 07/25/17 13:59 Last Admin: 07/24/17 18:00 Dose: 40 mls/hr Metoprolol Tartrate (Lopressor) 5 mg IVP Q6H [facility] Last Admin: 07/25/17 12:42 Dose: 5 mg Morphine Sulfate (Morphine) 6 mg IVP Q4 PRN PRN Reason: Pain, severe (8-10) Last Admin: 07/25/17 08:50 Dose: 6 mg Mupirocin (Bactroban Ointment) 1 applic TOP BID [facility] Last Admin: 07/25/17 08:53 Dose: 1 applic Octreotide Acetate (Sandostatin) 300 mcg SC Q8@0500,1300,2100 [facility] Last Admin: 07/25/17 12:44 Dose: 300 mcg Potassium Chloride (Potassium Chloride Oral Soln) 20 meq PO BID [facility] Last Admin: 07/23/17 09:05 Dose: Not Given Saccharomyces Boulardii (Florastor) 250 mg PO BID [facility] Last Admin: 07/23/17 09:00 Dose: Not Given - Labs Labs: 07/25/17 04:20 07/25/17 06:35 PT 15.9 Seconds (9.8-13.1) H 07/22/17 05:20 INR 1.4 (0.9-1.2) H 07/22/17 05:20 APTT 39.1 Seconds (25.6-37.1) H 07/22/17 05:20 - Constitutional Appears: Well, Non-toxic, No Acute Distress - ENT Exam ENT Exam: Mucous Membranes Moist - Respiratory Exam Respiratory Exam: Clear to Ausculation Bilateral, NORMAL BREATHING PATTERN - Cardiovascular Exam Cardiovascular Exam: REGULAR RHYTHM, +S1, +S2 - GI/Abdominal Exam GI & Abdominal Exam: Soft, Tenderness. absent: Distended, Firm, Guarding, Rigid , Rebound Additional comments: stool coming through midline incision, dressing saturated with stool Drains have out bilious output NGT in place, minimal dark red output - Extremities Exam Additional comments: left finger tips becoming much pale in color - Neurological Exam Neurological Exam: Alert, Awake - Psychiatric Exam Psychiatric exam: Normal Affect, Normal Mood - Skin Skin Exam: Dry Assessment and Plan - Assessment and Plan (Free Text) Assessment: 72M s/p ex-lap for perforated viscous with Small bowel resection with anastomosis POD#17, with post-op leak Plan: - NPO, NGT - continue TPN - Patient has poor nutritional status - Regular wound care, dressing changes Discussed with Dr. Zaynab Miller, PGY2 <Mook Worthy - Last Filed: 07/27/17 15:25> Objective - Vital Signs/Intake and Output Vital Signs (last 24 hours): Temp Pulse Resp BP Pulse Ox 98.5 F 78 17 114/63 100 07/27/17 12:00 07/27/17 12:04 07/27/17 12:00 07/27/17 12:04 07/27/17 12:00 Intake and Output: 07/27/17 07/27/17 06:59 18:59 Intake Total 1390 850 Output Total 610 Balance 780 850 - Medications Medications: Current Medications Acetaminophen (Tylenol 325mg Tab) 650 mg PO Q4 PRN PRN Reason: Pain, moderate (4-7) Diltiazem HCl (Cardizem) 60 mg PO Q8 [facility] Last Admin: 07/23/17 09:00 Dose: Not Given Fentanyl (Duragesic) 1 patch TD Q3D [facility] PRN Reason: Protocol Last Admin: 07/25/17 20:08 Dose: 1 patch Furosemide (Lasix) 20 mg IVP DAILY [facility] Last Admin: 07/27/17 08:23 Dose: 20 mg Meropenem 1 gm/ Sodium (Chloride) 100 mls @ 100 mls/hr IVPB Q8 [facility] PRN Reason: Protocol Last Admin: 07/27/17 08:24 Dose: 100 mls/hr Micafungin Sodium 100 mg/ (Sodium Chloride) 100 mls @ 100 mls/hr IVPB DAILY [facility] PRN Reason: Protocol Last Admin: 07/27/17 09:02 Dose: 100 mls/hr Fat Emulsion Intravenous (Intralipid 20%) 250 mls @ 10.417 mls/hr IV .Q24H ONE Stop: 07/28/17 08:59 Last Admin: 07/27/17 09:56 Dose: 10.417 mls/hr Amino Acids (Clinimix 4.25%-25% 1000 Ml) 1,000 mls @ 80 mls/hr IV .[id number] ONE Stop: 07/27/17 17:29 Last Admin: 07/27/17 09:02 Dose: 80 mls/hr Sodium Chloride 70 meq/Potassium Phosphate 30 meq/Magnesium Sulfate 1.23 gm/ Calcium Gluconate 10 meq/Multivitamins/Vitamin C 10 ml/Chromium/Copper/Manganese /Zinc 3 ml/ Amino Acids 1,061.2835 mls @ 70 mls/hr IV .[id number] ONE Stop: 07/28/17 07:09 Sodium Chloride 70 meq/Potassium Phosphate 30 meq/Magnesium Sulfate 1.23 gm/ Calcium Gluconate 10 meq/Amino Acids 1,048.2835 mls @ 70 mls/hr IV .[id number] ONE Stop: 07/28/17 21:58 Metoprolol Tartrate (Lopressor) 5 mg IVP 0000,0600,1200,1800 [facility] Morphine Sulfate (Morphine) 8 mg IVP Q4 PRN PRN Reason: Pain, moderate (4-7) Last Admin: 07/27/17 10:45 Dose: 8 mg Mupirocin (Bactroban Ointment) 1 applic TOP BID [facility] Last Admin: 07/27/17 08:23 Dose: 1 applic Octreotide Acetate (Sandostatin) 300 mcg SC Q8@0500,1300,2100 [facility] Last Admin: 07/27/17 12:10 Dose: 300 mcg Potassium Chloride (Potassium Chloride Oral Soln) 20 meq PO BID [facility] Last Admin: 07/23/17 09:05 Dose: Not Given Saccharomyces Boulardii (Florastor) 250 mg PO BID [facility] Last Admin: 07/23/17 09:00 Dose: Not Given - Labs Labs: 07/27/17 04:20 07/27/17 04:20 PT 15.9 Seconds (9.8-13.1) H 07/22/17 05:20 INR 1.4 (0.9-1.2) H 07/22/17 05:20 APTT 39.1 Seconds (25.6-37.1) H 07/22/17 05:20 Attending/Attestation - Attestation I have personally seen and examined this patient.: Yes I have fully participated in the care of the patient.: Yes I have reviewed all pertinent clinical information, including history, physical exam and plan: Yes Notes (Text): Pt was seen and examined at bedside Agree with above note and assessment Pt is improving clinically c.w V Antibiotics TPN c.w current mx Plan d.w pt in detail Risk and benefit explained in detail.
[2017-07-25] MEDS ORDERED: Fat Emulsion 20% IV 250 ML IV ONE (16:00)
[2017-07-25] MEDS ORDERED: Multivitamin (MVI) 10 ML, Chromium/Copper/Manganese/Zinc 3 ML in Amino/Dex E 4.25/25 10... IV ONE (16:00)
--- NOTE | 2017-07-25 17:50 | CP.PCM.PN ---
Subjective - Date & Time of Evaluation Date of Evaluation: 07/25/17 Time of Evaluation: 08:00 - Subjective Subjective: still with abd drainage less swollen scrotum alert c/o pain no fever Objective - Vital Signs/Intake and Output Vital Signs (last 24 hours): Temp Pulse Resp BP Pulse Ox 98.4 F 76 26 H 117/69 100 07/25/17 16:00 07/25/17 16:00 07/25/17 16:00 07/25/17 16:00 07/25/17 16:00 Intake and Output: 07/25/17 07/25/17 06:59 18:59 Intake Total 540 600 Output Total 550 Balance -10 600 - Medications Medications: Current Medications Acetaminophen (Tylenol 325mg Tab) 650 mg PO Q4 PRN PRN Reason: Pain, moderate (4-7) Diltiazem HCl (Cardizem) 60 mg PO Q8 [facility] Last Admin: 07/23/17 09:00 Dose: Not Given Furosemide (Lasix) 20 mg IVP DAILY [facility] Last Admin: 07/25/17 08:53 Dose: 20 mg Meropenem 1 gm/ Sodium (Chloride) 100 mls @ 100 mls/hr IVPB Q8 [facility] PRN Reason: Protocol Last Admin: 07/25/17 08:54 Dose: 100 mls/hr Micafungin Sodium 100 mg/ (Sodium Chloride) 100 mls @ 100 mls/hr IVPB DAILY [facility] PRN Reason: Protocol Last Admin: 07/25/17 10:15 Dose: 100 mls/hr Multivitamins/Vitamin C 10 ml/Chromium/Copper/Manganese/Zinc 3 ml/ Amino Acids/ Electrolytes/Dextrose 1,013 mls @ 60 mls/hr IV .[id number] ONE Stop: 07/26/17 08:52 Fat Emulsion Intravenous (Intralipid 20%) 250 mls @ 10.417 mls/hr IV .Q24H ONE Stop: 07/26/17 15:59 Metoprolol Tartrate (Lopressor) 5 mg IVP Q6H [facility] Last Admin: 07/25/17 12:42 Dose: 5 mg Morphine Sulfate (Morphine) 6 mg IVP Q4 PRN PRN Reason: Pain, severe (8-10) Last Admin: 07/25/17 15:42 Dose: 6 mg Mupirocin (Bactroban Ointment) 1 applic TOP BID [facility] Last Admin: 07/25/17 08:53 Dose: 1 applic Octreotide Acetate (Sandostatin) 300 mcg SC Q8@0500,1300,2100 [facility] Last Admin: 07/25/17 12:44 Dose: 300 mcg Potassium Chloride (Potassium Chloride Oral Soln) 20 meq PO BID [facility] Last Admin: 07/23/17 09:05 Dose: Not Given Saccharomyces Boulardii (Florastor) 250 mg PO BID [facility] Last Admin: 07/23/17 09:00 Dose: Not Given - Labs Labs: 07/25/17 04:20 07/25/17 06:35 PT 15.9 Seconds (9.8-13.1) H 07/22/17 05:20 INR 1.4 (0.9-1.2) H 07/22/17 05:20 APTT 39.1 Seconds (25.6-37.1) H 07/22/17 05:20 - Constitutional Appears: Cachectic, Chronically Ill - Head Exam Head Exam: NORMOCEPHALIC - Eye Exam Eye Exam: absent: Scleral icterus - ENT Exam ENT Exam: Mucous Membranes Dry - Neck Exam Neck Exam: absent: Lymphadenopathy - Respiratory Exam Respiratory Exam: Decreased Breath Sounds - Cardiovascular Exam Cardiovascular Exam: REGULAR RHYTHM - GI/Abdominal Exam GI & Abdominal Exam: Distended, Soft, Tenderness, Diminished Bowel Sounds - Rectal Exam Rectal Exam: Deferred - Exam Exam: Scrotal Swelling - Extremities Exam Extremities Exam: absent: Pedal Edema - Back Exam Back Exam: absent: CVA tenderness (L), CVA tenderness (R) - Neurological Exam Neurological Exam: Alert, Awake, Oriented x3 - Psychiatric Exam Psychiatric exam: Depressed Assessment and Plan (1) Abdominal pain Status: Acute (2) COPD (chronic obstructive pulmonary disease) Status: Acute (3) Essential (primary) hypertension Status: Acute (4) Hx of atrial fibrillation, no current medication Status: Acute (5) Intestinal perforation Status: Acute (6) Perforated abdominal viscus Status: Acute (7) Sepsis Status: Acute - Assessment and Plan (Free Text) Assessment: cont iv antibiotics and surgical follow up
[2017-07-25] MEDS ORDERED: Morphine 4 MG/ML VIAL IVP ONE (22:03)
[2017-07-26] MEDS: Morphine 4 MG/ML VIAL IVP PRN ×8 (00:55→21:57)
[2017-07-26] MEDS: Meropenem 1 GM in Sodium Chloride 0.9% 100 ML IVPB SCH ×3 (00:56→17:25)
[2017-07-26] MEDS: Metoprolol 1 mg/ml Inj IVP SCH ×4 (00:58→23:05)
[2017-07-26] MEDS: Octreotide 500 mcg/ml Inj SC SCH ×3 (05:26→20:42)
[2017-07-26 05:40] LABS: BLOOD UREA NITROGEN 19 mg/dl (9-20); CALCIUM 6.7 mg/dL (8.4-10.2); GFR AFRICAN-AMERICAN > 60; GFR NON-AFRICAN AMERICAN > 60
[2017-07-26 06:07] LABS: BASO % 0.5 % (0.0-2.0); EOS # 0.1 K/uL (0.0-0.7); EOS % 2.1 % (0.0-4.0); HEMOGLOBIN 7.7 g/dL (12.0-18.0); LYMPH # 0.9 K/uL (1.0-4.3); LYMPH % 17.3 % (20.0-40.0); MEAN CELL VOLUME 97.4 fl (80.0-94.0); MEAN CORPUSCULAR HEMOGLOBIN 33.1 pg (27.0-31.0); MEAN PLATELET VOLUME 8.4 fl (7.2-11.7); MONO # 0.6 K/uL (0.0-0.8); MONO % 11.2 % (0.0-10.0); NEUT # 3.6 K/uL (1.8-7.0); NEUT % 68.9 % (50.0-75.0); NRBC % 0.1 % (0.0-0.0); RBC 2.32 Mil/uL (4.40-5.90); RED CELL DISTRIBUTION WIDTH 15.6 % (11.5-14.5); WHITE BLOOD COUNT 5.2 K/uL (4.8-10.8)
--- NOTE | 2017-07-26 08:25 | CP.PCM.PN ---
<Delfino Lagos - Last Filed: 07/26/17 08:23> Subjective - Date & Time of Evaluation Date of Evaluation: 07/26/17 Time of Evaluation: 08:23 - Subjective Subjective: SURGERY NOTE FOR DR. WORTHY 72M seen and examined at bedside. States diffused mild abdominal pain, denies nausea, vomiting. NGT in place. Reports his dressing was just changed and does not want it to be seen at this time. Denies of any acute overnight events. No new complains. Objective - Vital Signs/Intake and Output Vital Signs (last 24 hours): Temp Pulse Resp BP Pulse Ox 97.5 F L 72 24 122/62 100 07/26/17 04:00 07/26/17 06:00 07/26/17 06:00 07/26/17 06:00 07/26/17 06:00 Intake and Output: 07/26/17 07/26/17 06:59 18:59 Intake Total 845 Output Total 823 Balance 22 - Medications Medications: Current Medications Acetaminophen (Tylenol 325mg Tab) 650 mg PO Q4 PRN PRN Reason: Pain, moderate (4-7) Diltiazem HCl (Cardizem) 60 mg PO Q8 [facility] Last Admin: 07/23/17 09:00 Dose: Not Given Fentanyl (Duragesic) 1 patch TD Q3D [facility] PRN Reason: Protocol Last Admin: 07/25/17 20:08 Dose: 1 patch Furosemide (Lasix) 20 mg IVP DAILY [facility] Last Admin: 07/25/17 08:53 Dose: 20 mg Meropenem 1 gm/ Sodium (Chloride) 100 mls @ 100 mls/hr IVPB Q8 [facility] PRN Reason: Protocol Last Admin: 07/26/17 00:56 Dose: 100 mls/hr Micafungin Sodium 100 mg/ (Sodium Chloride) 100 mls @ 100 mls/hr IVPB DAILY [facility] PRN Reason: Protocol Last Admin: 07/25/17 10:15 Dose: 100 mls/hr Multivitamins/Vitamin C 10 ml/Chromium/Copper/Manganese/Zinc 3 ml/ Amino Acids/ Electrolytes/Dextrose 1,013 mls @ 60 mls/hr IV .[id number] ONE Stop: 07/26/17 08:52 Last Admin: 07/25/17 20:31 Dose: 60 mls/hr Fat Emulsion Intravenous (Intralipid 20%) 250 mls @ 10.417 mls/hr IV .Q24H ONE Stop: 07/26/17 15:59 Last Admin: 07/25/17 20:38 Dose: 10.417 mls/hr Metoprolol Tartrate (Lopressor) 5 mg IVP Q6H [facility] Last Admin: 07/26/17 05:30 Dose: 5 mg Morphine Sulfate (Morphine) 6 mg IVP Q4 PRN PRN Reason: Pain, severe (8-10) Last Admin: 07/26/17 05:27 Dose: 6 mg Mupirocin (Bactroban Ointment) 1 applic TOP BID [facility] Last Admin: 07/25/17 18:24 Dose: 1 applic Octreotide Acetate (Sandostatin) 300 mcg SC Q8@0500,1300,2100 [facility] Last Admin: 07/26/17 05:26 Dose: 300 mcg Potassium Chloride (Potassium Chloride Oral Soln) 20 meq PO BID [facility] Last Admin: 07/23/17 09:05 Dose: Not Given Saccharomyces Boulardii (Florastor) 250 mg PO BID [facility] Last Admin: 07/23/17 09:00 Dose: Not Given - Labs Labs: 07/26/17 04:20 07/26/17 04:20 PT 15.9 Seconds (9.8-13.1) H 07/22/17 05:20 INR 1.4 (0.9-1.2) H 07/22/17 05:20 APTT 39.1 Seconds (25.6-37.1) H 07/22/17 05:20 - Constitutional Appears: Well, Non-toxic, No Acute Distress - Head Exam Head Exam: ATRAUMATIC - Eye Exam Eye Exam: Normal appearance - ENT Exam ENT Exam: Normal Exam - Neck Exam Neck Exam: Normal Inspection - Respiratory Exam Respiratory Exam: NORMAL BREATHING PATTERN - GI/Abdominal Exam GI & Abdominal Exam: Soft. absent: Rigid, Hernia, Mass Additional comments: stool coming through midline incision, old dressing saturated with stool NGT in place - Rectal Exam Rectal Exam: Deferred - Extremities Exam Extremities Exam: Normal Inspection - Back Exam Back Exam: NORMAL INSPECTION. absent: tenderness - Neurological Exam Neurological Exam: Alert, Awake, Oriented x3 - Psychiatric Exam Psychiatric exam: Normal Affect, Normal Mood - Skin Skin Exam: Intact, Normal Color Assessment and Plan - Assessment and Plan (Free Text) Assessment: 72M s/p ex-lap for perforated viscous with Small bowel resection with anastomosis POD#18, with post-op leak Plan: - NPO, NGT - continue TPN - Patient has poor nutritional status - Regular wound care, dressing changes Discussed with Dr. Worthy <Mook Worthy - Last Filed: 07/27/17 15:33> Objective - Vital Signs/Intake and Output Vital Signs (last 24 hours): Temp Pulse Resp BP Pulse Ox 98.5 F 78 17 114/63 100 07/27/17 12:00 07/27/17 12:04 07/27/17 12:00 07/27/17 12:04 07/27/17 12:00 Intake and Output: 07/27/17 07/27/17 06:59 18:59 Intake Total 1390 850 Output Total 610 Balance 780 850 - Medications Medications: Current Medications Acetaminophen (Tylenol 325mg Tab) 650 mg PO Q4 PRN PRN Reason: Pain, moderate (4-7) Diltiazem HCl (Cardizem) 60 mg PO Q8 [facility] Last Admin: 07/23/17 09:00 Dose: Not Given Fentanyl (Duragesic) 1 patch TD Q3D [facility] PRN Reason: Protocol Last Admin: 07/25/17 20:08 Dose: 1 patch Furosemide (Lasix) 20 mg IVP DAILY [facility] Last Admin: 07/27/17 08:23 Dose: 20 mg Meropenem 1 gm/ Sodium (Chloride) 100 mls @ 100 mls/hr IVPB Q8 [facility] PRN Reason: Protocol Last Admin: 07/27/17 08:24 Dose: 100 mls/hr Micafungin Sodium 100 mg/ (Sodium Chloride) 100 mls @ 100 mls/hr IVPB DAILY [facility] PRN Reason: Protocol Last Admin: 07/27/17 09:02 Dose: 100 mls/hr Fat Emulsion Intravenous (Intralipid 20%) 250 mls @ 10.417 mls/hr IV .Q24H ONE Stop: 07/28/17 08:59 Last Admin: 07/27/17 09:56 Dose: 10.417 mls/hr Amino Acids (Clinimix 4.25%-25% 1000 Ml) 1,000 mls @ 80 mls/hr IV .[id number] ONE Stop: 07/27/17 17:29 Last Admin: 07/27/17 09:02 Dose: 80 mls/hr Sodium Chloride 70 meq/Potassium Phosphate 30 meq/Magnesium Sulfate 1.23 gm/ Calcium Gluconate 10 meq/Multivitamins/Vitamin C 10 ml/Chromium/Copper/Manganese /Zinc 3 ml/ Amino Acids 1,061.2835 mls @ 70 mls/hr IV .[id number] ONE Stop: 07/28/17 07:09 Sodium Chloride 70 meq/Potassium Phosphate 30 meq/Magnesium Sulfate 1.23 gm/ Calcium Gluconate 10 meq/Amino Acids 1,048.2835 mls @ 70 mls/hr IV .[id number] ONE Stop: 07/28/17 21:58 Metoprolol Tartrate (Lopressor) 5 mg IVP 0000,0600,1200,1800 [facility] Morphine Sulfate (Morphine) 8 mg IVP Q4 PRN PRN Reason: Pain, moderate (4-7) Last Admin: 07/27/17 10:45 Dose: 8 mg Mupirocin (Bactroban Ointment) 1 applic TOP BID [facility] Last Admin: 07/27/17 08:23 Dose: 1 applic Octreotide Acetate (Sandostatin) 300 mcg SC Q8@0500,1300,2100 [facility] Last Admin: 07/27/17 12:10 Dose: 300 mcg Potassium Chloride (Potassium Chloride Oral Soln) 20 meq PO BID [facility] Last Admin: 07/23/17 09:05 Dose: Not Given Saccharomyces Boulardii (Florastor) 250 mg PO BID [facility] Last Admin: 07/23/17 09:00 Dose: Not Given - Labs Labs: 07/27/17 04:20 07/27/17 04:20 PT 15.9 Seconds (9.8-13.1) H 07/22/17 05:20 INR 1.4 (0.9-1.2) H 07/22/17 05:20 APTT 39.1 Seconds (25.6-37.1) H 07/22/17 05:20 Attending/Attestation - Attestation I have personally seen and examined this patient.: Yes I have fully participated in the care of the patient.: Yes I have reviewed all pertinent clinical information, including history, physical exam and plan: Yes Notes (Text): 0Pt was seen and examined at bedside Agree with above note and assessment Pt is improving clinically Prealbumin level TPN c.w current mx Plan d.w pt in detail Risk and benefit explained in detail.
[2017-07-26] MEDS ORDERED: HYDROmorphone 1 mg/ml ISec IVP PRN (08:32)
[2017-07-26] MEDS: Micafungin 100 MG in Sodium Chloride 0.9% 100 ML IVPB SCH (08:51)
[2017-07-26] MEDS ORDERED: Potassium Phosphate 30 MMOLE in Sodium Chloride 0.9% 250 ML IV ONE (12:00)
--- NOTE | 2017-07-26 13:09 | CP.CCUPN ---
CCU Subjective - Physician Review Subjective (Free Text): He is in a better mood today, but getting relatively high dose narcotics, and he is opioid tolerant from past use. Abdominal binder off, ostomy dressing applied to would leakage sites for collection. No fever spikes, denies any chills or sweats. Other Vitals and I/Os reviewed. No fever spikes overnight. Negative fluid balance of 1.0 L noted. ROS: No other pertinent negs or positives on 10+ system review. PMSFH: All other historical Nursing and physician documentation reviewed to date; no new pertinent info noted relevant to current medical problems. EXAM- HEENT: no icterus, no gaze preference, pupils equal and reactive, no icterus NECK: No JVD, supple, carotids equal upstroke bilat/no bruits CHEST: decreased BS bases, otherwise clear bilat, no wheezes audible HEART: regular distant, S1S2, no rubs. ABD: soft, + distention, no tympany, no palp tenderness, BS not audible, yellowish-brown drainage from mid abd wound and left RAMIN. EXT: + edema. No peripheral/ digital cyanosis, no calf tenderness or palpable cords, distal pulses intact and symmetrical. NEURO: no gross focal motor deficits SKIN: no rashes, warm and dry. LABS: WBC= 5.2 HGB= 7.7 PLTs= 19K Na= 135 K= 3.1 CL= 101 HCO3= 29 BUN/Cr= 19/0.6 BS= 196 MAJOR PROBLEMS: 1. Acute Resp Insuff-Post op- resolved. 2. s/p A Fib with RVR 3. Thrombocytopenia 2 Recent Surgery, r/o 2 Sepsis, drug-induced, or possible DIC. 4. Hypokalemia, and Hypophosphatemia today. 5. Leukopenia, essentially pancytopenia 2 Severe abdominal septic process PLAN: 1. Meropenam and Micafungin as per ID. Dressing / wound mgmt as per Surgical team; on TPN, advance to caloric and fluid goals. Electrolyte and trace element repletion via TPN. 2. Checked repeat Fibrinogen level: appears relatively stable and not decreasing over the past 3-4 days. No active bleeding noted. 3. Cautious narcotics, on morphine: Dilaudid [place] shortage noted, on back order. 4. Incentive [place] as tolerated. CCU Objective - Vital Signs / Intake & Output Vital Signs (Last 4 hours): Vital Signs Temp Pulse Resp BP Pulse Ox 07/26/17 12:30 80 110/66 07/26/17 12:00 98.4 F 80 32 H 110/66 100 07/26/17 10:00 83 14 116/41 L 100 Intake and Output (Last 8hrs): Intake & Output 07/25/17 07/26/17 07/26/17 22:59 06:59 14:59 Intake Total 341 664 380 Output Total 1800 823 Balance -1459 -159 380 Weight 163 lb 11.2 oz Intake: Intake, Piggyback 100 200 TPN/PPN 320 480 180 Lipid 21 84 Output: Gastric Amount 300 Left Nares 300 Drainage 23 Left 3 Right 20 Urine 1800 500 Urethral ([place]) 1800 500 Critical Care Progress Note - Nutrition Nutrition: Nutrition Category Date Time Status NPO Diet [DIET] Diets 07/21/17 Breakfast Active
[2017-07-26] MEDS ORDERED: Multivitamin (MVI) 10 ML, Trace Elements-Cr/Cu/Mn/Zn 3 ML in Amino/Dex E 4.25/25 1000ml... IV ONE (17:00)
--- NOTE | 2017-07-26 22:36 | CP.PCM.PN ---
Subjective - Date & Time of Evaluation Date of Evaluation: 07/26/17 Time of Evaluation: 11:00 - Subjective Subjective: Appears more comfortable today but still has abdominal pain. Objective - Vital Signs/Intake and Output Vital Signs (last 24 hours): Temp Pulse Resp BP Pulse Ox 97.2 F L 77 23 131/67 100 07/26/17 21:00 07/26/17 21:55 07/26/17 21:55 07/26/17 21:55 07/26/17 21:55 Intake and Output: 07/26/17 07/27/17 18:59 06:59 Intake Total 660 405 Output Total 596 Balance 64 405 - Medications Medications: Current Medications Acetaminophen (Tylenol 325mg Tab) 650 mg PO Q4 PRN PRN Reason: Pain, moderate (4-7) Diltiazem HCl (Cardizem) 60 mg PO Q8 [facility] Last Admin: 07/23/17 09:00 Dose: Not Given Fentanyl (Duragesic) 1 patch TD Q3D [facility] PRN Reason: Protocol Last Admin: 07/25/17 20:08 Dose: 1 patch Furosemide (Lasix) 20 mg IVP DAILY [facility] Last Admin: 07/26/17 08:51 Dose: 20 mg Meropenem 1 gm/ Sodium (Chloride) 100 mls @ 100 mls/hr IVPB Q8 [facility] PRN Reason: Protocol Last Admin: 07/26/17 17:25 Dose: 100 mls/hr Micafungin Sodium 100 mg/ (Sodium Chloride) 100 mls @ 100 mls/hr IVPB DAILY [facility] PRN Reason: Protocol Last Admin: 07/26/17 08:51 Dose: 100 mls/hr Fat Emulsion Intravenous (Intralipid 20%) 250 mls @ 10.417 mls/hr IV .Q24H ONE Stop: 07/28/17 08:59 Multivitamins/Vitamin C 10 ml/Chromium/Copper/Manganese/Zinc 3 ml/ Amino Acids/ Electrolytes/Dextrose 1,013 mls @ 80 mls/hr IV .[id number] ONE Stop: 07/27/17 05:39 Last Admin: 07/26/17 16:53 Dose: 80 mls/hr Amino Acids (Clinimix 4.25%-25% 1000 Ml) 1,000 mls @ 80 mls/hr IV .[id number] ONE Stop: 07/27/17 17:29 Metoprolol Tartrate (Lopressor) 5 mg IVP Q6H [facility] Last Admin: 07/26/17 12:30 Dose: 5 mg Morphine Sulfate (Morphine) 8 mg IVP Q4 PRN PRN Reason: Pain, moderate (4-7) Last Admin: 07/26/17 21:57 Dose: 8 mg Mupirocin (Bactroban Ointment) 1 applic TOP BID [facility] Last Admin: 07/26/17 17:38 Dose: 1 applic Octreotide Acetate (Sandostatin) 300 mcg SC Q8@0500,1300,2100 [facility] Last Admin: 07/26/17 20:42 Dose: 300 mcg Potassium Chloride (Potassium Chloride Oral Soln) 20 meq PO BID [facility] Last Admin: 07/23/17 09:05 Dose: Not Given Saccharomyces Boulardii (Florastor) 250 mg PO BID [facility] Last Admin: 07/23/17 09:00 Dose: Not Given - Labs Labs: 07/26/17 04:20 07/26/17 04:20 PT 15.9 Seconds (9.8-13.1) H 07/22/17 05:20 INR 1.4 (0.9-1.2) H 07/22/17 05:20 APTT 39.1 Seconds (25.6-37.1) H 07/22/17 05:20 - Head Exam Head Exam: ATRAUMATIC - Eye Exam Eye Exam: Normal appearance - ENT Exam ENT Exam: Mucous Membranes Dry - Respiratory Exam Respiratory Exam: NORMAL BREATHING PATTERN - Cardiovascular Exam Cardiovascular Exam: +S1, +S2 - GI/Abdominal Exam GI & Abdominal Exam: Normal Bowel Sounds Assessment and Plan (1) Pancytopenia Assessment & Plan: platelets declining; sepsis related no bleeding, no current DIC transfuse plt < 10,000 anemia of chronic disease and some blood noted in NG tube today - transfusion support PRN Status: Acute
[2017-07-27] MEDS: Meropenem 1 GM in Sodium Chloride 0.9% 100 ML IVPB SCH ×3 (00:05→16:25)
[2017-07-27] MEDS: Morphine 4 MG/ML VIAL IVP PRN ×4 (04:23→23:21)
[2017-07-27] MEDS ORDERED: Amino Acids/Dextrose 1,000 ML IV ONE (05:00)
[2017-07-27] MEDS: Octreotide 500 mcg/ml Inj SC SCH ×3 (05:24→21:02)
[2017-07-27] MEDS: Metoprolol 1 mg/ml Inj IVP SCH ×5 (05:25→23:28)
[2017-07-27 05:27] LABS: HEMOGLOBIN 9.8 g/dL (12.0-18.0); MEAN CELL VOLUME 104.4 fl (80.0-94.0); MEAN CORPUSCULAR HEMOGLOBIN 32.9 pg (27.0-31.0); MEAN CORPUSCULAR HGB CONC 31.6 g/dL (33.0-37.0); RBC 2.97 Mil/uL (4.40-5.90); RED CELL DISTRIBUTION WIDTH 17.6 % (11.5-14.5); WHITE BLOOD COUNT 5.3 K/uL (4.8-10.8)
[2017-07-27 06:34] LABS: ALB/GLOB RATIO 0.6 (1.0-2.1); ALBUMIN 1.6 g/dL (3.5-5.0); ALT/SGPT 25 U/L (21-72); AST/SGOT 15 U/L (17-59); BLOOD UREA NITROGEN 18 mg/dl (9-20); CALCIUM 6.7 mg/dL (8.4-10.2); GFR AFRICAN-AMERICAN > 60; GFR NON-AFRICAN AMERICAN > 60
--- NOTE | 2017-07-27 07:32 | CP.PCM.PN ---
<Wojciech Miller - Last Filed: 07/27/17 07:29> Subjective - Date & Time of Evaluation Date of Evaluation: 07/27/17 Time of Evaluation: 07:29 - Subjective Subjective: SURGERY NOTE FOR DR. WORTHY 72M seen and examined at bedside. No acute events overnight. Patient continues to complain of diffused mild abdominal pain. Denies nausea, vomiting. Objective - Vital Signs/Intake and Output Vital Signs (last 24 hours): Temp Pulse Resp BP Pulse Ox 98.1 F 62 21 120/69 100 07/27/17 04:00 07/27/17 06:06 07/27/17 06:06 07/27/17 06:06 07/27/17 06:06 Intake and Output: 07/27/17 07/27/17 06:59 18:59 Intake Total 1390 Output Total 610 Balance 780 - Medications Medications: Current Medications Acetaminophen (Tylenol 325mg Tab) 650 mg PO Q4 PRN PRN Reason: Pain, moderate (4-7) Diltiazem HCl (Cardizem) 60 mg PO Q8 [facility] Last Admin: 07/23/17 09:00 Dose: Not Given Fentanyl (Duragesic) 1 patch TD Q3D [facility] PRN Reason: Protocol Last Admin: 07/25/17 20:08 Dose: 1 patch Furosemide (Lasix) 20 mg IVP DAILY [facility] Last Admin: 07/26/17 08:51 Dose: 20 mg Meropenem 1 gm/ Sodium (Chloride) 100 mls @ 100 mls/hr IVPB Q8 [facility] PRN Reason: Protocol Last Admin: 07/27/17 00:05 Dose: 100 mls/hr Micafungin Sodium 100 mg/ (Sodium Chloride) 100 mls @ 100 mls/hr IVPB DAILY [facility] PRN Reason: Protocol Last Admin: 07/26/17 08:51 Dose: 100 mls/hr Fat Emulsion Intravenous (Intralipid 20%) 250 mls @ 10.417 mls/hr IV .Q24H ONE Stop: 07/28/17 08:59 Amino Acids (Clinimix 4.25%-25% 1000 Ml) 1,000 mls @ 80 mls/hr IV .[id number] ONE Stop: 07/27/17 17:29 Metoprolol Tartrate (Lopressor) 5 mg IVP Q6H [facility] Last Admin: 07/27/17 05:25 Dose: 5 mg Morphine Sulfate (Morphine) 8 mg IVP Q4 PRN PRN Reason: Pain, moderate (4-7) Last Admin: 07/27/17 04:23 Dose: 8 mg Mupirocin (Bactroban Ointment) 1 applic TOP BID [facility] Last Admin: 07/26/17 17:38 Dose: 1 applic Octreotide Acetate (Sandostatin) 300 mcg SC Q8@0500,1300,2100 [facility] Last Admin: 07/27/17 05:24 Dose: 300 mcg Potassium Chloride (Potassium Chloride Oral Soln) 20 meq PO BID [facility] Last Admin: 07/23/17 09:05 Dose: Not Given Saccharomyces Boulardii (Florastor) 250 mg PO BID [facility] Last Admin: 07/23/17 09:00 Dose: Not Given - Labs Labs: 07/27/17 04:20 07/27/17 04:20 PT 15.9 Seconds (9.8-13.1) H 07/22/17 05:20 INR 1.4 (0.9-1.2) H 07/22/17 05:20 APTT 39.1 Seconds (25.6-37.1) H 07/22/17 05:20 - Constitutional Appears: Well, Non-toxic, No Acute Distress - Respiratory Exam Respiratory Exam: Clear to Ausculation Bilateral, NORMAL BREATHING PATTERN - Cardiovascular Exam Cardiovascular Exam: REGULAR RHYTHM, +S1, +S2 - GI/Abdominal Exam GI & Abdominal Exam: Soft, Tenderness. absent: Distended, Firm, Guarding, Rigid , Rebound Additional comments: drains in place with bilious and stool output Midline incision continuous to have stool sippage. Ostomy bag at site of most leakage in place. Dressing in place saturated with stool - Extremities Exam Extremities Exam: absent: Pedal Edema, Tenderness - Neurological Exam Neurological Exam: Alert, Awake - Skin Skin Exam: Dry, Intact, Normal Color, Warm Assessment and Plan - Assessment and Plan (Free Text) Assessment: 72M s/p ex-lap for perforated viscous with Small bowel resection with anastomosis POD#19, with post-op leak Plan: - NPO, NGT - continue TPN - Patient has poor nutritional status - Regular wound care, dressing changes Further recs discussed with Dr. Worthy <Mook Worthy - Last Filed: 07/27/17 15:35> Objective - Vital Signs/Intake and Output Vital Signs (last 24 hours): Temp Pulse Resp BP Pulse Ox 98.5 F 78 17 114/63 100 07/27/17 12:00 07/27/17 12:04 07/27/17 12:00 07/27/17 12:04 07/27/17 12:00 Intake and Output: 07/27/17 07/27/17 06:59 18:59 Intake Total 1390 850 Output Total 610 Balance 780 850 - Medications Medications: Current Medications Acetaminophen (Tylenol 325mg Tab) 650 mg PO Q4 PRN PRN Reason: Pain, moderate (4-7) Diltiazem HCl (Cardizem) 60 mg PO Q8 [facility] Last Admin: 07/23/17 09:00 Dose: Not Given Fentanyl (Duragesic) 1 patch TD Q3D [facility] PRN Reason: Protocol Last Admin: 07/25/17 20:08 Dose: 1 patch Furosemide (Lasix) 20 mg IVP DAILY [facility] Last Admin: 07/27/17 08:23 Dose: 20 mg Meropenem 1 gm/ Sodium (Chloride) 100 mls @ 100 mls/hr IVPB Q8 [facility] PRN Reason: Protocol Last Admin: 07/27/17 08:24 Dose: 100 mls/hr Micafungin Sodium 100 mg/ (Sodium Chloride) 100 mls @ 100 mls/hr IVPB DAILY [facility] PRN Reason: Protocol Last Admin: 07/27/17 09:02 Dose: 100 mls/hr Fat Emulsion Intravenous (Intralipid 20%) 250 mls @ 10.417 mls/hr IV .Q24H ONE Stop: 07/28/17 08:59 Last Admin: 07/27/17 09:56 Dose: 10.417 mls/hr Amino Acids (Clinimix 4.25%-25% 1000 Ml) 1,000 mls @ 80 mls/hr IV .[id number] ONE Stop: 07/27/17 17:29 Last Admin: 07/27/17 09:02 Dose: 80 mls/hr Sodium Chloride 70 meq/Potassium Phosphate 30 meq/Magnesium Sulfate 1.23 gm/ Calcium Gluconate 10 meq/Multivitamins/Vitamin C 10 ml/Chromium/Copper/Manganese /Zinc 3 ml/ Amino Acids 1,061.2835 mls @ 70 mls/hr IV .[id number] ONE Stop: 07/28/17 07:09 Sodium Chloride 70 meq/Potassium Phosphate 30 meq/Magnesium Sulfate 1.23 gm/ Calcium Gluconate 10 meq/Amino Acids 1,048.2835 mls @ 70 mls/hr IV .[id number] ONE Stop: 07/28/17 21:58 Metoprolol Tartrate (Lopressor) 5 mg IVP 0000,0600,1200,1800 [facility] Morphine Sulfate (Morphine) 8 mg IVP Q4 PRN PRN Reason: Pain, moderate (4-7) Last Admin: 07/27/17 10:45 Dose: 8 mg Mupirocin (Bactroban Ointment) 1 applic TOP BID [facility] Last Admin: 07/27/17 08:23 Dose: 1 applic Octreotide Acetate (Sandostatin) 300 mcg SC Q8@0500,1300,2100 [facility] Last Admin: 07/27/17 12:10 Dose: 300 mcg Potassium Chloride (Potassium Chloride Oral Soln) 20 meq PO BID [facility] Last Admin: 07/23/17 09:05 Dose: Not Given Saccharomyces Boulardii (Florastor) 250 mg PO BID [facility] Last Admin: 07/23/17 09:00 Dose: Not Given - Labs Labs: 07/27/17 04:20 07/27/17 04:20 PT 15.9 Seconds (9.8-13.1) H 07/22/17 05:20 INR 1.4 (0.9-1.2) H 07/22/17 05:20 APTT 39.1 Seconds (25.6-37.1) H 07/22/17 05:20 Attending/Attestation - Attestation I have fully participated in the care of the patient.: Yes I have reviewed all pertinent clinical information, including history, physical exam and plan: Yes Notes (Text): Prealbumin in 4.1 Albumin 1.6 C.w TPN c.w current mx Plan d.w primary team in detail
[2017-07-27] MEDS ORDERED: Fat Emulsion 20% IV 250 ML IV ONE (09:00)
[2017-07-27] MEDS: Micafungin 100 MG in Sodium Chloride 0.9% 100 ML IVPB SCH (09:02)
--- NOTE | 2017-07-27 12:18 | CP.PCM.PN ---
Subjective - Date & Time of Evaluation Date of Evaluation: 07/26/17 Time of Evaluation: 11:00 - Subjective Subjective: Noted low Hgb Still with a significant fecaloid discharge from abd wounds. Has no fever Tolerating TPN Noted persistently low platelet. Objective - Vital Signs/Intake and Output Vital Signs (last 24 hours): Temp Pulse Resp BP Pulse Ox 98.5 F 78 17 114/63 100 07/27/17 12:00 07/27/17 12:04 07/27/17 12:00 07/27/17 12:04 07/27/17 12:00 Intake and Output: 07/27/17 07/27/17 06:59 18:59 Intake Total 1390 440 Output Total 610 Balance 780 440 - Medications Medications: Current Medications Acetaminophen (Tylenol 325mg Tab) 650 mg PO Q4 PRN PRN Reason: Pain, moderate (4-7) Diltiazem HCl (Cardizem) 60 mg PO Q8 [facility] Last Admin: 07/23/17 09:00 Dose: Not Given Fentanyl (Duragesic) 1 patch TD Q3D [facility] PRN Reason: Protocol Last Admin: 07/25/17 20:08 Dose: 1 patch Furosemide (Lasix) 20 mg IVP DAILY [facility] Last Admin: 07/27/17 08:23 Dose: 20 mg Meropenem 1 gm/ Sodium (Chloride) 100 mls @ 100 mls/hr IVPB Q8 [facility] PRN Reason: Protocol Last Admin: 07/27/17 08:24 Dose: 100 mls/hr Micafungin Sodium 100 mg/ (Sodium Chloride) 100 mls @ 100 mls/hr IVPB DAILY [facility] PRN Reason: Protocol Last Admin: 07/27/17 09:02 Dose: 100 mls/hr Fat Emulsion Intravenous (Intralipid 20%) 250 mls @ 10.417 mls/hr IV .Q24H ONE Stop: 07/28/17 08:59 Last Admin: 07/27/17 09:56 Dose: 10.417 mls/hr Amino Acids (Clinimix 4.25%-25% 1000 Ml) 1,000 mls @ 80 mls/hr IV .[id number] ONE Stop: 07/27/17 17:29 Last Admin: 07/27/17 09:02 Dose: 80 mls/hr Metoprolol Tartrate (Lopressor) 5 mg IVP 0000,0600,1200,1800 [facility] Morphine Sulfate (Morphine) 8 mg IVP Q4 PRN PRN Reason: Pain, moderate (4-7) Last Admin: 07/27/17 10:45 Dose: 8 mg Mupirocin (Bactroban Ointment) 1 applic TOP BID [facility] Last Admin: 07/27/17 08:23 Dose: 1 applic Octreotide Acetate (Sandostatin) 300 mcg SC Q8@0500,1300,2100 [facility] Last Admin: 07/27/17 12:10 Dose: 300 mcg Potassium Chloride (Potassium Chloride Oral Soln) 20 meq PO BID [facility] Last Admin: 07/23/17 09:05 Dose: Not Given Saccharomyces Boulardii (Florastor) 250 mg PO BID [facility] Last Admin: 07/23/17 09:00 Dose: Not Given - Labs Labs: 07/27/17 04:20 07/27/17 04:20 PT 15.9 Seconds (9.8-13.1) H 07/22/17 05:20 INR 1.4 (0.9-1.2) H 07/22/17 05:20 APTT 39.1 Seconds (25.6-37.1) H 07/22/17 05:20 - Head Exam Head Exam: NORMAL INSPECTION - Eye Exam Eye Exam: Normal appearance - Respiratory Exam Respiratory Exam: Clear to Ausculation Bilateral - Cardiovascular Exam Cardiovascular Exam: REGULAR RHYTHM - GI/Abdominal Exam GI & Abdominal Exam: Hypoactive Bowel Sounds - Neurological Exam Neurological Exam: Awake, Oriented x3 Assessment and Plan (1) Abdominal pain Status: Acute (2) COPD (chronic obstructive pulmonary disease) Status: Acute (3) Essential (primary) hypertension Status: Acute (4) Hx of atrial fibrillation, no current medication Status: Acute (5) Intestinal perforation Status: Acute (6) Perforated abdominal viscus Status: Acute (7) Atrial fibrillation Status: Acute (8) Anemia Status: Acute (9) Thrombocytopenia Status: Acute (10) Abscess Status: Acute - Assessment and Plan (Free Text) Plan: Cont meds Transfuse 2 units PRBC and platelet monitor cbc cmp TPN start NGT feeding if tolerated follow up with surgery.
--- NOTE | 2017-07-27 12:20 | CP.PCM.PN ---
Subjective - Date & Time of Evaluation Date of Evaluation: 07/27/17 Time of Evaluation: 12:18 - Subjective Subjective: Feels a lot better today Still with fecaloid drainage from surgical wounds Has no fever Noted increase in Hgb but platelet remains low. No sx of bleeding Has no abd pain. Objective - Vital Signs/Intake and Output Vital Signs (last 24 hours): Temp Pulse Resp BP Pulse Ox 98.5 F 78 17 114/63 100 07/27/17 12:00 07/27/17 12:04 07/27/17 12:00 07/27/17 12:04 07/27/17 12:00 Intake and Output: 07/27/17 07/27/17 06:59 18:59 Intake Total 1390 440 Output Total 610 Balance 780 440 - Medications Medications: Current Medications Acetaminophen (Tylenol 325mg Tab) 650 mg PO Q4 PRN PRN Reason: Pain, moderate (4-7) Diltiazem HCl (Cardizem) 60 mg PO Q8 [facility] Last Admin: 07/23/17 09:00 Dose: Not Given Fentanyl (Duragesic) 1 patch TD Q3D [facility] PRN Reason: Protocol Last Admin: 07/25/17 20:08 Dose: 1 patch Furosemide (Lasix) 20 mg IVP DAILY [facility] Last Admin: 07/27/17 08:23 Dose: 20 mg Meropenem 1 gm/ Sodium (Chloride) 100 mls @ 100 mls/hr IVPB Q8 [facility] PRN Reason: Protocol Last Admin: 07/27/17 08:24 Dose: 100 mls/hr Micafungin Sodium 100 mg/ (Sodium Chloride) 100 mls @ 100 mls/hr IVPB DAILY [facility] PRN Reason: Protocol Last Admin: 07/27/17 09:02 Dose: 100 mls/hr Fat Emulsion Intravenous (Intralipid 20%) 250 mls @ 10.417 mls/hr IV .Q24H ONE Stop: 07/28/17 08:59 Last Admin: 07/27/17 09:56 Dose: 10.417 mls/hr Amino Acids (Clinimix 4.25%-25% 1000 Ml) 1,000 mls @ 80 mls/hr IV .[id number] ONE Stop: 07/27/17 17:29 Last Admin: 07/27/17 09:02 Dose: 80 mls/hr Metoprolol Tartrate (Lopressor) 5 mg IVP 0000,0600,1200,1800 [facility] Morphine Sulfate (Morphine) 8 mg IVP Q4 PRN PRN Reason: Pain, moderate (4-7) Last Admin: 07/27/17 10:45 Dose: 8 mg Mupirocin (Bactroban Ointment) 1 applic TOP BID [facility] Last Admin: 07/27/17 08:23 Dose: 1 applic Octreotide Acetate (Sandostatin) 300 mcg SC Q8@0500,1300,2100 [facility] Last Admin: 07/27/17 12:10 Dose: 300 mcg Potassium Chloride (Potassium Chloride Oral Soln) 20 meq PO BID [facility] Last Admin: 07/23/17 09:05 Dose: Not Given Saccharomyces Boulardii (Florastor) 250 mg PO BID [facility] Last Admin: 07/23/17 09:00 Dose: Not Given - Labs Labs: 07/27/17 04:20 07/27/17 04:20 PT 15.9 Seconds (9.8-13.1) H 07/22/17 05:20 INR 1.4 (0.9-1.2) H 07/22/17 05:20 APTT 39.1 Seconds (25.6-37.1) H 07/22/17 05:20 - Head Exam Head Exam: NORMAL INSPECTION - ENT Exam ENT Exam: Mucous Membranes Moist - Respiratory Exam Respiratory Exam: Clear to Ausculation Bilateral - Cardiovascular Exam Cardiovascular Exam: REGULAR RHYTHM - GI/Abdominal Exam GI & Abdominal Exam: Normal Bowel Sounds - Neurological Exam Neurological Exam: Awake, Oriented x3 Assessment and Plan (1) Abdominal pain Status: Acute (2) COPD (chronic obstructive pulmonary disease) Status: Acute (3) Essential (primary) hypertension Status: Acute (4) Hx of atrial fibrillation, no current medication Status: Acute (5) Intestinal perforation Status: Acute (6) Perforated abdominal viscus Status: Acute (7) Atrial fibrillation Status: Acute (8) Anemia Status: Acute (9) Thrombocytopenia Status: Acute (10) Abscess Status: Acute - Assessment and Plan (Free Text) Plan: Cont meds Cont tx monitor cbc cmp TPN start NGT feeding
--- NOTE | 2017-07-27 13:08 | CP.CCUPN ---
CCU Subjective - Physician Review Subjective (Free Text): Easily arousable from sleep, in good mood today, on high dose narcotics. No fever spikes, denies any chills or sweats. Other Vitals and I/Os reviewed. No fever spikes overnight. Positive fluid balance of 0.8 L noted. ROS: No other pertinent negs or positives on 10+ system review. PMSFH: All other historical Nursing and physician documentation reviewed to date; no new pertinent info noted relevant to current medical problems. EXAM- HEENT: no icterus, no gaze preference, pupils equal and reactive, no icterus NECK: No JVD, supple, carotids equal upstroke bilat/no bruits CHEST: decreased BS bases, otherwise clear bilat, no wheezes audible HEART: regular distant, S1S2, no rubs. ABD: soft, no distention, no tympany, no palp tenderness, BS not audible, yellowish-brown drainage from mid abd wound and left RAMIN. EXT: + edema. No peripheral/ digital cyanosis, no calf tenderness or palpable cords, distal pulses intact and symmetrical. NEURO: no gross focal motor deficits SKIN: no rashes, warm and dry. LABS: WBC= 5.3 HGB= 9.8 PLTs= 16K Fib= 219 Na= 135 K= 3.4 CL= 100 HCO3= 30 BUN/Cr= 18/0.6 BS= 222 Phos= 1.6 Mg= 1.5 MAJOR PROBLEMS: 1. Acute Resp Insuff-Post op- resolved. 2. s/p A Fib with RVR 3. Thrombocytopenia 2 Recent Surgery, r/o 2 Sepsis, drug-induced, or possible DIC. 4. Hypokalemia, and Hypophosphatemia today. 5. Leukopenia, essentially pancytopenia 2 Severe abdominal septic process PLAN: 1. Ongoing dressing and surgical wound care, no abd distention noted. 2. K, Mg, Phos, Insulin supplements via TPN, check repeat TG level. 3. Monitor bowel function on high dose narcotics. 4. OOB to chair, IS as tolerated. 5. Francisco and antifungal intra-abdominal coverage as per ID. CCU Objective - Vital Signs / Intake & Output Vital Signs (Last 4 hours): Vital Signs Temp Pulse Resp BP Pulse Ox 07/27/17 12:04 78 114/63 07/27/17 12:00 98.5 F 81 17 106/59 L 100 07/27/17 10:00 75 20 124/69 100 Intake and Output (Last 8hrs): Intake & Output 07/26/17 07/27/17 07/27/17 22:59 06:59 14:59 Intake Total 990 560 850 Output Total 596 610 Balance 394 -50 850 Weight 180 lb Intake: Intake, Piggyback 100 200 Oral 0 0 TPN/PPN 240 560 400 Blood Product 650 Lipid 0 250 Output: Gastric Amount 180 100 Left Nares 180 100 Drainage 16 10 Left 1 10 Right 15 0 Urine 400 500 Urethral (Russell) 400 500 Other: # Bowel Movements 0 Critical Care Progress Note - Nutrition Nutrition: Nutrition Category Date Time Status NPO Diet [DIET] Diets 07/21/17 Breakfast Active
--- NOTE | 2017-07-27 13:41 | CP.PCM.PN ---
Subjective - Date & Time of Evaluation Date of Evaluation: 07/27/17 Time of Evaluation: 09:00 - Subjective Subjective: no fever less drainage admits to Hep B from blood transfusion in past never treated await viral DNA PCR Objective - Vital Signs/Intake and Output Vital Signs (last 24 hours): Temp Pulse Resp BP Pulse Ox 98.5 F 78 17 114/63 100 07/27/17 12:00 07/27/17 12:04 07/27/17 12:00 07/27/17 12:04 07/27/17 12:00 Intake and Output: 07/27/17 07/27/17 06:59 18:59 Intake Total 1390 850 Output Total 610 Balance 780 850 - Medications Medications: Current Medications Acetaminophen (Tylenol 325mg Tab) 650 mg PO Q4 PRN PRN Reason: Pain, moderate (4-7) Diltiazem HCl (Cardizem) 60 mg PO Q8 [facility] Last Admin: 07/23/17 09:00 Dose: Not Given Fentanyl (Duragesic) 1 patch TD Q3D [facility] PRN Reason: Protocol Last Admin: 07/25/17 20:08 Dose: 1 patch Furosemide (Lasix) 20 mg IVP DAILY [facility] Last Admin: 07/27/17 08:23 Dose: 20 mg Meropenem 1 gm/ Sodium (Chloride) 100 mls @ 100 mls/hr IVPB Q8 [facility] PRN Reason: Protocol Last Admin: 07/27/17 08:24 Dose: 100 mls/hr Micafungin Sodium 100 mg/ (Sodium Chloride) 100 mls @ 100 mls/hr IVPB DAILY [facility] PRN Reason: Protocol Last Admin: 07/27/17 09:02 Dose: 100 mls/hr Fat Emulsion Intravenous (Intralipid 20%) 250 mls @ 10.417 mls/hr IV .Q24H ONE Stop: 07/28/17 08:59 Last Admin: 07/27/17 09:56 Dose: 10.417 mls/hr Amino Acids (Clinimix 4.25%-25% 1000 Ml) 1,000 mls @ 80 mls/hr IV .[id number] ONE Stop: 07/27/17 17:29 Last Admin: 07/27/17 09:02 Dose: 80 mls/hr Metoprolol Tartrate (Lopressor) 5 mg IVP 0000,0600,1200,1800 [facility] Morphine Sulfate (Morphine) 8 mg IVP Q4 PRN PRN Reason: Pain, moderate (4-7) Last Admin: 07/27/17 10:45 Dose: 8 mg Mupirocin (Bactroban Ointment) 1 applic TOP BID [facility] Last Admin: 07/27/17 08:23 Dose: 1 applic Octreotide Acetate (Sandostatin) 300 mcg SC Q8@0500,1300,2100 [facility] Last Admin: 07/27/17 12:10 Dose: 300 mcg Potassium Chloride (Potassium Chloride Oral Soln) 20 meq PO BID [facility] Last Admin: 07/23/17 09:05 Dose: Not Given Saccharomyces Boulardii (Florastor) 250 mg PO BID [facility] Last Admin: 07/23/17 09:00 Dose: Not Given - Labs Labs: 07/27/17 04:20 07/27/17 04:20 PT 15.9 Seconds (9.8-13.1) H 07/22/17 05:20 INR 1.4 (0.9-1.2) H 07/22/17 05:20 APTT 39.1 Seconds (25.6-37.1) H 07/22/17 05:20 - Constitutional Appears: Non-toxic, Chronically Ill - Head Exam Head Exam: NORMOCEPHALIC - Eye Exam Eye Exam: PERRL - ENT Exam ENT Exam: Mucous Membranes Dry - Neck Exam Neck Exam: absent: Lymphadenopathy - Respiratory Exam Respiratory Exam: Decreased Breath Sounds - Cardiovascular Exam Cardiovascular Exam: REGULAR RHYTHM - GI/Abdominal Exam GI & Abdominal Exam: Distended, Soft - Rectal Exam Rectal Exam: Deferred - Exam Exam: Uretheral Discharge Assessment and Plan (1) Abdominal pain Status: Acute (2) COPD (chronic obstructive pulmonary disease) Status: Acute (3) Essential (primary) hypertension Status: Acute (4) Hx of atrial fibrillation, no current medication Status: Acute (5) Intestinal perforation Status: Acute (6) Perforated abdominal viscus Status: Acute (7) Sepsis Status: Acute - Assessment and Plan (Free Text) Assessment: will send hep b pcr and karolyn fetoprotein cont antibiotics for intraabd infection
[2017-07-27] MEDS ORDERED: [UNRECOGNIZED DRUG - OTHER] IV ONE (16:00)
[2017-07-27] MEDS ORDERED: SODIUM CHLORIDE IV ONE (16:00)
[2017-07-27] MEDS ORDERED: POTASSIUM PHOSPHATE IV ONE (16:00)
[2017-07-27] MEDS ORDERED: MAGNESIUM SULFATE IV ONE (16:00)
--- NOTE | 2017-07-27 21:51 | CP.PCM.PN ---
Subjective - Date & Time of Evaluation Date of Evaluation: 07/27/17 Time of Evaluation: 11:10 - Subjective Subjective: Has some abdominal pain but greatly improved with narcotic support Objective - Vital Signs/Intake and Output Vital Signs (last 24 hours): Temp Pulse Resp BP Pulse Ox 98 F 68 19 117/68 100 07/27/17 19:19 07/27/17 20:00 07/27/17 20:00 07/27/17 20:00 07/27/17 20:00 Intake and Output: 07/27/17 07/28/17 18:59 06:59 Intake Total 1480 70 Output Total 2410 Balance -930 70 - Medications Medications: Current Medications Acetaminophen (Tylenol 325mg Tab) 650 mg PO Q4 PRN PRN Reason: Pain, moderate (4-7) Diltiazem HCl (Cardizem) 60 mg PO Q8 [facility] Last Admin: 07/23/17 09:00 Dose: Not Given Fentanyl (Duragesic) 1 patch TD Q3D [facility] PRN Reason: Protocol Last Admin: 07/25/17 20:08 Dose: 1 patch Furosemide (Lasix) 20 mg IVP DAILY [facility] Last Admin: 07/27/17 08:23 Dose: 20 mg Meropenem 1 gm/ Sodium (Chloride) 100 mls @ 100 mls/hr IVPB Q8 [facility] PRN Reason: Protocol Last Admin: 07/27/17 16:25 Dose: 100 mls/hr Micafungin Sodium 100 mg/ (Sodium Chloride) 100 mls @ 100 mls/hr IVPB DAILY [facility] PRN Reason: Protocol Last Admin: 07/27/17 09:02 Dose: 100 mls/hr Fat Emulsion Intravenous (Intralipid 20%) 250 mls @ 10.417 mls/hr IV .Q24H ONE Stop: 07/28/17 08:59 Last Admin: 07/27/17 09:56 Dose: 10.417 mls/hr Sodium Chloride 70 meq/Potassium Phosphate 30 meq/Magnesium Sulfate 1.23 gm/ Calcium Gluconate 10 meq/Multivitamins/Vitamin C 10 ml/Chromium/Copper/Manganese /Zinc 3 ml/ Amino Acids 1,061.2835 mls @ 70 mls/hr IV .[id number] ONE Stop: 07/28/17 07:09 Sodium Chloride 70 meq/Potassium Phosphate 30 meq/Magnesium Sulfate 1.23 gm/ Calcium Gluconate 10 meq/Amino Acids 1,048.2835 mls @ 70 mls/hr IV .[id number] ONE Stop: 07/28/17 21:58 Insulin Human Regular (Humulin R) 0 units SC ACHS [facility] PRN Reason: Protocol Metoprolol Tartrate (Lopressor) 5 mg IVP 0000,0600,1200,1800 [facility] Last Admin: 07/27/17 18:01 Dose: 5 mg Morphine Sulfate (Morphine) 8 mg IVP Q4 PRN PRN Reason: Pain, moderate (4-7) Last Admin: 07/27/17 19:18 Dose: 8 mg Mupirocin (Bactroban Ointment) 1 applic TOP BID [facility] Last Admin: 07/27/17 16:25 Dose: 1 applic Octreotide Acetate (Sandostatin) 300 mcg SC Q8@0500,1300,2100 [facility] Last Admin: 07/27/17 21:02 Dose: 300 mcg Potassium Chloride (Potassium Chloride Oral Soln) 20 meq PO BID [facility] Last Admin: 07/23/17 09:05 Dose: Not Given Saccharomyces Boulardii (Florastor) 250 mg PO BID [facility] Last Admin: 07/23/17 09:00 Dose: Not Given - Labs Labs: 07/27/17 04:20 07/27/17 04:20 PT 15.9 Seconds (9.8-13.1) H 07/22/17 05:20 INR 1.4 (0.9-1.2) H 07/22/17 05:20 APTT 39.1 Seconds (25.6-37.1) H 07/22/17 05:20 - Head Exam Head Exam: ATRAUMATIC - Eye Exam Eye Exam: Normal appearance - ENT Exam ENT Exam: Mucous Membranes Dry - Respiratory Exam Respiratory Exam: NORMAL BREATHING PATTERN - Cardiovascular Exam Cardiovascular Exam: +S1, +S2 - GI/Abdominal Exam GI & Abdominal Exam: Normal Bowel Sounds Assessment and Plan (1) Pancytopenia Assessment & Plan: sepsis polypharmacy ? drug induced monitoring fibrinogen - slight dip from baseline ?dilutional effect of coag factors from PRBC transfusion ?evolving DIC anemia of chronic disease Status: Acute
[2017-07-27] MEDS: Insulin Regular 100 units/ml SC SCH (21:59)
[2017-07-28] MEDS: Octreotide 500 mcg/ml Inj SC SCH ×3 (05:17→21:25)
[2017-07-28] MEDS: Metoprolol 1 mg/ml Inj IVP SCH ×3 (05:18→17:43)
[2017-07-28 05:52] LABS: HEMOGLOBIN 9.6 g/dL (12.0-18.0); MEAN CELL VOLUME 95.7 fl (80.0-94.0); MEAN CORPUSCULAR HEMOGLOBIN 32.7 pg (27.0-31.0); MEAN CORPUSCULAR HGB CONC 34.2 g/dL (33.0-37.0); RBC 2.95 Mil/uL (4.40-5.90); RED CELL DISTRIBUTION WIDTH 15.3 % (11.5-14.5); WHITE BLOOD COUNT 5.4 K/uL (4.8-10.8)
--- NOTE | 2017-07-28 05:57 | CP.PCM.PN ---
Subjective - Date & Time of Evaluation Date of Evaluation: 07/28/17 Time of Evaluation: 06:54 - Subjective Subjective: General Surgery Note for Dr. Worthy Patient seen and examined at bedside. No acute events overnight. Patient still has diffuse abdominal pain. He is also complaining room is cold. Denies fever/ chills, chest pain, SOB, nausea/vomiting. Objective - Vital Signs/Intake and Output Vital Signs (last 24 hours): Temp Pulse Resp BP Pulse Ox 98.1 F 71 16 128/60 100 07/28/17 04:00 07/28/17 05:23 07/28/17 05:23 07/28/17 05:23 07/28/17 05:23 Intake and Output: 07/27/17 07/28/17 18:59 06:59 Intake Total 1480 950 Output Total 2410 910 Balance -930 40 - Medications Medications: Current Medications Acetaminophen (Tylenol 325mg Tab) 650 mg PO Q4 PRN PRN Reason: Pain, moderate (4-7) Diltiazem HCl (Cardizem) 60 mg PO Q8 [facility] Last Admin: 07/23/17 09:00 Dose: Not Given Fentanyl (Duragesic) 1 patch TD Q3D [facility] PRN Reason: Protocol Last Admin: 07/25/17 20:08 Dose: 1 patch Furosemide (Lasix) 20 mg IVP DAILY [facility] Last Admin: 07/27/17 08:23 Dose: 20 mg Meropenem 1 gm/ Sodium (Chloride) 100 mls @ 100 mls/hr IVPB Q8 [facility] PRN Reason: Protocol Last Admin: 07/28/17 00:00 Dose: 100 mls/hr Micafungin Sodium 100 mg/ (Sodium Chloride) 100 mls @ 100 mls/hr IVPB DAILY [facility] PRN Reason: Protocol Last Admin: 07/27/17 09:02 Dose: 100 mls/hr Fat Emulsion Intravenous (Intralipid 20%) 250 mls @ 10.417 mls/hr IV .Q24H ONE Stop: 07/28/17 08:59 Last Admin: 07/27/17 09:56 Dose: 10.417 mls/hr Sodium Chloride 70 meq/Potassium Phosphate 30 meq/Magnesium Sulfate 1.23 gm/ Calcium Gluconate 10 meq/Multivitamins/Vitamin C 10 ml/Chromium/Copper/Manganese /Zinc 3 ml/ Amino Acids 1,061.2835 mls @ 70 mls/hr IV .[id number] ONE Stop: 07/28/17 07:09 Last Admin: 07/27/17 23:12 Dose: 70 mls/hr Sodium Chloride 70 meq/Potassium Phosphate 30 meq/Magnesium Sulfate 1.23 gm/ Calcium Gluconate 10 meq/Amino Acids 1,048.2835 mls @ 70 mls/hr IV .[id number] ONE Stop: 07/28/17 21:58 Insulin Human Regular (Humulin R) 0 units SC ACHS [facility] PRN Reason: Protocol Last Admin: 07/27/17 21:59 Dose: Not Given Metoprolol Tartrate (Lopressor) 5 mg IVP 0000,0600,1200,1800 [facility] Last Admin: 07/28/17 05:18 Dose: 5 mg Morphine Sulfate (Morphine) 8 mg IVP Q4 PRN PRN Reason: Pain, moderate (4-7) Last Admin: 07/27/17 23:21 Dose: 8 mg Mupirocin (Bactroban Ointment) 1 applic TOP BID [facility] Last Admin: 07/27/17 16:25 Dose: 1 applic Octreotide Acetate (Sandostatin) 300 mcg SC Q8@0500,1300,2100 [facility] Last Admin: 07/28/17 05:17 Dose: 300 mcg Potassium Chloride (Potassium Chloride Oral Soln) 20 meq PO BID [facility] Last Admin: 07/23/17 09:05 Dose: Not Given Saccharomyces Boulardii (Florastor) 250 mg PO BID [facility] Last Admin: 07/23/17 09:00 Dose: Not Given - Labs Labs: 07/27/17 04:20 07/27/17 04:20 PT 15.9 Seconds (9.8-13.1) H 07/22/17 05:20 INR 1.4 (0.9-1.2) H 07/22/17 05:20 APTT 39.1 Seconds (25.6-37.1) H 07/22/17 05:20 - Constitutional Appears: Non-toxic, No Acute Distress - Head Exam Head Exam: ATRAUMATIC, NORMOCEPHALIC - Eye Exam Eye Exam: Normal appearance - ENT Exam ENT Exam: Mucous Membranes Moist - Respiratory Exam Respiratory Exam: NORMAL BREATHING PATTERN - Cardiovascular Exam Cardiovascular Exam: REGULAR RHYTHM - GI/Abdominal Exam GI & Abdominal Exam: Firm (mild), Tenderness (mild) Additional comments: preet drains in place with bilious and stool output Midline incision without drainage - dressing clean, dry, and intact - Extremities Exam Extremities Exam: absent: Pedal Edema - Neurological Exam Neurological Exam: Alert, Awake - Psychiatric Exam Psychiatric exam: Flat Affect - Skin Skin Exam: Dry, Warm Assessment and Plan - Assessment and Plan (Free Text) Plan: 72M s/p ex-lap for perforated viscous with Small bowel resection with anastomosis POD#20, with post-op leak - NPO - NGT (monitor output) - continue TPN - Patient has poor nutritional status - Regular wound care, dressing changes - Further recomendations as per Dr. Zaynab Soares PGY1
[2017-07-28 06:07] LABS: ALB/GLOB RATIO 0.6 (1.0-2.1); ALBUMIN 1.6 g/dL (3.5-5.0); ALT/SGPT 26 U/L (21-72); AST/SGOT 17 U/L (17-59); BLOOD UREA NITROGEN 19 mg/dl (9-20); CALCIUM 6.7 mg/dL (8.4-10.2); GFR AFRICAN-AMERICAN > 60; GFR NON-AFRICAN AMERICAN > 60
[2017-07-28] MEDS: Insulin Regular 100 units/ml SC SCH ×4 (06:34→22:00)
[2017-07-28] MEDS ORDERED: [UNRECOGNIZED DRUG - OTHER] IV ONE (07:00)
[2017-07-28] MEDS ORDERED: SODIUM CHLORIDE IV ONE ×2 (07:00→15:45)
[2017-07-28] MEDS ORDERED: POTASSIUM PHOSPHATE IV ONE ×2 (07:00→15:45)
[2017-07-28] MEDS ORDERED: MAGNESIUM SULFATE IV ONE ×2 (07:00→15:45)
[2017-07-28] MEDS: Morphine 4 MG/ML VIAL IVP PRN ×3 (08:01→20:37)
[2017-07-28] MEDS: Meropenem 1 GM in Sodium Chloride 0.9% 100 ML IVPB SCH ×3 (08:23→17:41)
[2017-07-28] MEDS ORDERED: Potassium Phosphate 30 MMOLE in Sodium Chloride 0.9% 250 ML IV ONE (09:13)
[2017-07-28] MEDS ORDERED: Magnesium Sulfate 2 gm/50 ml 2 GM/50 ML BAG IVPB ONE (09:14)
[2017-07-28] MEDS: Micafungin 100 MG in Sodium Chloride 0.9% 100 ML IVPB SCH (09:54)
--- NOTE | 2017-07-28 12:01 | CP.CCUPN ---
CCU Subjective - Physician Review Subjective (Free Text): 07/17/17 The patient was Seen/interviewed and examined by me at the bedside during ICU round, Medical records reviewed and Management issues were discussed and formulated with the house staff. Events reviewed Mr Wolf is 72 year old male with a past medical history of HTN, atrial fibrillation and deep vein thrombosis present to the emergency department complaining of abdominal pain which began x2 hours prior to arrival. Patient admitted with Acute abdomen, free air sec to perforated viscous 07/08, Underwent Jejunal perforation repair, small bowel resection and primary anastomosis, enterolysis, Irrisept irrigation, TEP block, RIJ TLC and placement, NGT placement This morning he is Alert and oriented Continues to report intermittent Abdomen Pain/tenderness Comfortable, in no Distress Alert and oriented to self. Pain controlled on high dose narcotics Afebrile BP has been stable, No Vasopressors Breathing unlabored, on room air O2 sat 100%. A_Fib on the monitor In A fib, HR Uncontrolled, off amiodoron infusion and was started on Cardizem 60 mg PO Q 8H Last 24H I&O 2430/3320 (-890) High brown drainage from midline wound This morning labs revealed Stable renal function, INR better 1.4. Stable H/H, but Platelets improved to 38 No evidence of active bleed Hematology on board, suspect sepsis related Zyvox Held Pt is NPO TPN started via PICC CCU Objective - Vital Signs / Intake & Output Vital Signs (Last 4 hours): Vital Signs Pulse Resp BP Pulse Ox 07/28/17 10:00 78 15 119/72 100 07/28/17 08:23 128/78 Intake and Output (Last 8hrs): Intake & Output 07/27/17 07/28/17 07/28/17 22:59 06:59 14:59 Intake Total 630 740 480 Output Total 2410 910 Balance -1780 -170 480 Weight 180 lb Intake: Intake, Piggyback 100 100 200 Oral 0 0 TPN/PPN 530 560 280 Lipid 80 Output: Gastric Amount 200 300 Left Nares 200 300 Drainage 10 10 Left 0 0 Left Nare 10 Right 10 Urine 2200 600 Urethral (Russell) 2200 600 - Physical Exam Head: Positive for: Normocephalic Pupils: Positive for: PERRL Conjunctiva: Negative for: Icteric Mouth: Positive for: Moist Mucous Membranes Neck: Negative for: JVD Respiratory/Chest: Positive for: Clear to Auscultation, Decreased Breath Sounds. Negative for: Accessory Muscle Use, Wheezes, Rhonchi Cardiovascular: Positive for: Irregular Rhythm, Tachycardic. Negative for: Murmurs, Rub Abdomen: Positive for: Tenderness, Other (leaking stool like material from surgical wound). Negative for: Distention, Normal Bowel Sounds, Rebound, Guarding, Mass/Organomegaly Lower Extremity: Positive for: NORMAL PULSES. Negative for: CALF TENDERNESS, Cyanosis Neurological: Positive for: Motor Func Grossly Intact, Normal Sensory Function Skin: Positive for: Warm, Dry. Negative for: Rashes Psychiatric: Positive for: Alert, Oriented x 3 - Medications Active Medications: Active Medications Generic Name Dose Route Start Last Admin Trade Name Freq PRN Reason Stop Dose Admin Acetaminophen 650 mg 07/13/17 07:49 Tylenol 325mg Tab PO Q4 PRN Pain, moderate (4-7) Diltiazem HCl 60 mg 07/15/17 17:00 07/23/17 09:00 Cardizem PO Not Given Q8 [facility] Fentanyl 1 patch 07/25/17 19:00 07/25/17 20:08 Duragesic TD 1 patch Q3D [facility] Administration Protocol Furosemide 20 mg 07/14/17 09:00 07/28/17 08:23 Lasix IVP 20 mg DAILY [facility] Administration Meropenem 1 gm/ Sodium 100 mls @ 100 mls/hr 07/22/17 17:00 07/28/17 08:23 Chloride IVPB 100 mls/hr Q8 [facility] Administration Protocol Micafungin Sodium 100 mg/ 100 mls @ 100 mls/hr 07/22/17 14:15 07/28/17 09:54 Sodium Chloride IVPB 100 mls/hr DAILY [facility] Administration Protocol Sodium Chloride 70 meq/ 1,048.2835 mls @ 70 mls/hr 07/28/17 07:00 Potassium Phosphate 30 meq/ IV 07/28/17 21:58 Magnesium Sulfate 1.23 gm/ .[id number] ONE Calcium Gluconate 10 meq/ Amino Acids Potassium Phosphate 30 mmole/ 260 mls @ 65 mls/hr 07/28/17 09:13 07/28/17 11: 07 Sodium Chloride IV 07/28/17 13:12 65 mls/hr ONCE ONE Administration Insulin Human Regular 0 units 07/27/17 22:00 07/28/17 06:34 Humulin R SC 2 units ACHS [facility] Administration Protocol Metoprolol Tartrate 5 mg 07/27/17 12:00 07/28/17 05:18 Lopressor IVP 5 mg 0000,0600,1200,1800 [facility] Administration Morphine Sulfate 8 mg 07/26/17 08:55 07/28/17 08:01 Morphine IVP 8 mg Q4 PRN Administration Pain, moderate (4-7) Mupirocin 1 applic 07/09/17 20:15 07/28/17 08:23 Bactroban Ointment TOP 1 applic BID [facility] Administration Octreotide Acetate 300 mcg 07/22/17 21:00 07/28/17 05:17 Sandostatin SC 300 mcg Q8@0500,1300,2100 [facility] Administration Potassium Chloride 20 meq 07/16/17 17:00 07/23/17 09:05 Potassium Chloride Oral Soln PO Not Given BID [facility] Saccharomyces Boulardii 250 mg 07/13/17 17:00 07/23/17 09:00 Florastor PO Not Given BID [facility] - Patient Studies Lab Studies: Lab Studies 07/28/17 07/28/17 07/28/17 Range/Units 11:29 04:38 04:37 WBC (4.8-10.8) K/uL RBC (4.40-5.90) Mil/uL Hgb (12.0-18.0) g/dL Hct (35.0-51.0) % MCV (80.0-94.0) fl MCH (27.0-31.0) pg MCHC (33.0-37.0) g/dL RDW (11.5-14.5) % Plt Count (130-400) K/uL Fibrinogen (200-400) mg/dl Sodium (132-148) mmol/l Potassium (3.6-5.0) MMOL/L Chloride (98-107) mmol/L Carbon Dioxide (22-30) mmol/L Anion Gap (10-20) BUN (9-20) mg/dl Creatinine (0.8-1.5) mg/dl Est GFR ( Amer) Est GFR (Non-Af Amer) POC Glucose (mg/dL) 111 H 220 H (65-110) mg/dL Random Glucose (75-110) mg/dL Calcium (8.4-10.2) mg/dL Phosphorus (2.5-4.5) mg/dl Magnesium (1.6-2.3) MG/DL Total Bilirubin (0.2-1.3) mg/dl AST (17-59) U/L ALT (21-72) U/L Alkaline Phosphatase (38-126) U/L Total Protein (6.3-8.2) G/DL Albumin (3.5-5.0) g/dL Globulin (2.2-3.9) gm/dL Albumin/Globulin Ratio (1.0-2.1) Alpha Fetoprotein 1.1 (0.0-7.22) IU/mL 07/28/17 07/28/17 07/28/17 Range/Units 04:37 04:37 04:37 WBC 5.4 (4.8-10.8) K/uL RBC 2.95 L (4.40-5.90) Mil/uL Hgb 9.6 L (12.0-18.0) g/dL Hct 28.2 L (35.0-51.0) % MCV 95.7 H D (80.0-94.0) fl MCH 32.7 H (27.0-31.0) pg MCHC 34.2 (33.0-37.0) g/dL RDW 15.3 H (11.5-14.5) % Plt Count 38 L D (130-400) K/uL Fibrinogen 239 (200-400) mg/dl Sodium 135 (132-148) mmol/l Potassium 2.9 L (3.6-5.0) MMOL/L Chloride 96 L (98-107) mmol/L Carbon Dioxide 34 H (22-30) mmol/L Anion Gap 8 L (10-20) BUN 19 (9-20) mg/dl Creatinine 0.5 L (0.8-1.5) mg/dl Est GFR ( Amer) > 60 Est GFR (Non-Af Amer) > 60 POC Glucose (mg/dL) (65-110) mg/dL Random Glucose 194 H (75-110) mg/dL Calcium 6.7 L (8.4-10.2) mg/dL Phosphorus 1.2 L (2.5-4.5) mg/dl Magnesium 1.4 L (1.6-2.3) MG/DL Total Bilirubin 0.7 (0.2-1.3) mg/dl AST 17 (17-59) U/L ALT 26 (21-72) U/L Alkaline Phosphatase 69 (38-126) U/L Total Protein 4.4 L (6.3-8.2) G/DL Albumin 1.6 L (3.5-5.0) g/dL Globulin 2.8 (2.2-3.9) gm/dL Albumin/Globulin Ratio 0.6 L (1.0-2.1) Alpha Fetoprotein (0.0-7.22) IU/mL 07/28/17 07/27/17 07/27/17 Range/Units 04:27 20:54 16:37 WBC (4.8-10.8) K/uL RBC (4.40-5.90) Mil/uL Hgb (12.0-18.0) g/dL Hct (35.0-51.0) % MCV (80.0-94.0) fl MCH (27.0-31.0) pg MCHC (33.0-37.0) g/dL RDW (11.5-14.5) % Plt Count (130-400) K/uL Fibrinogen (200-400) mg/dl Sodium (132-148) mmol/l Potassium (3.6-5.0) MMOL/L Chloride (98-107) mmol/L Carbon Dioxide (22-30) mmol/L Anion Gap (10-20) BUN (9-20) mg/dl Creatinine (0.8-1.5) mg/dl Est GFR ( Amer) Est GFR (Non-Af Amer) POC Glucose (mg/dL) 240 H 298 H 281 H (65-110) mg/dL Random Glucose (75-110) mg/dL Calcium (8.4-10.2) mg/dL Phosphorus (2.5-4.5) mg/dl Magnesium (1.6-2.3) MG/DL Total Bilirubin (0.2-1.3) mg/dl AST (17-59) U/L ALT (21-72) U/L Alkaline Phosphatase (38-126) U/L Total Protein (6.3-8.2) G/DL Albumin (3.5-5.0) g/dL Globulin (2.2-3.9) gm/dL Albumin/Globulin Ratio (1.0-2.1) Alpha Fetoprotein (0.0-7.22) IU/mL Laboratory Results - last 24 hr 07/27/17 07/27/17 07/28/17 16:37 20:54 04:27 WBC RBC Hgb Hct MCV MCH MCHC RDW Plt Count Fibrinogen Sodium Potassium Chloride Carbon Dioxide Anion Gap BUN Creatinine Est GFR ( Amer) Est GFR (Non-Af Amer) POC Glucose (mg/dL) 281 H 298 H 240 H Random Glucose Calcium Phosphorus Magnesium Total Bilirubin AST ALT Alkaline Phosphatase Total Protein Albumin Globulin Albumin/Globulin Ratio Alpha Fetoprotein 07/28/17 07/28/17 07/28/17 04:37 04:37 04:37 WBC 5.4 RBC 2.95 L Hgb 9.6 L Hct 28.2 L MCV 95.7 H D MCH 32.7 H MCHC 34.2 RDW 15.3 H Plt Count 38 L D Fibrinogen 239 Sodium 135 Potassium 2.9 L Chloride 96 L Carbon Dioxide 34 H Anion Gap 8 L BUN 19 Creatinine 0.5 L Est GFR ( Amer) > 60 Est GFR (Non-Af Amer) > 60 POC Glucose (mg/dL) Random Glucose 194 H Calcium 6.7 L Phosphorus 1.2 L Magnesium 1.4 L Total Bilirubin 0.7 AST 17 ALT 26 Alkaline Phosphatase 69 Total Protein 4.4 L Albumin 1.6 L Globulin 2.8 Albumin/Globulin Ratio 0.6 L Alpha Fetoprotein 07/28/17 07/28/17 07/28/17 04:37 04:38 11:29 WBC RBC Hgb Hct MCV MCH MCHC RDW Plt Count Fibrinogen Sodium Potassium Chloride Carbon Dioxide Anion Gap BUN Creatinine Est GFR ( Amer) Est GFR (Non-Af Amer) POC Glucose (mg/dL) 220 H 111 H Random Glucose Calcium Phosphorus Magnesium Total Bilirubin AST ALT Alkaline Phosphatase Total Protein Albumin Globulin Albumin/Globulin Ratio Alpha Fetoprotein 1.1 Fingerstick Blood Sugar Results: 220 Critical Care Progress Note - Nutrition Nutrition: Nutrition Category Date Time Status NPO Diet [DIET] Diets 07/21/17 Breakfast Active Assessment/Plan (1) Pancytopenia Current Visit: No Status: Acute Comment: neutropenia H/H Stable platelets trending Down No evidance of actie bleed This morning labs revealed Stable renal function, INR better 1.4. Stable H/H, but Platelets up to 38 No evidence of active bleed Hematology on board, suspect sepsis related Zyvox Held (2) Severe sepsis Current Visit: Yes Status: Acute Comment: Meropenem 1 gm IVPB Q8 [facility] Micafungin Sodium 100 mg IVPB DAILY [facility] Wound C/S positive for mathew (3) Atrial fibrillation Current Visit: Yes Status: Acute Priority: High Comment: HR Uncontrolled, Patient MPO OFF amiodoron infusion Continue Cardizem Drip No anticoagulants for time being due to thrombocytopenia (4) Intestinal perforation Current Visit: Yes Status: Acute Priority: High Comment: S/P Laprotomy, for perforated bowel NPO, High brown drainage from midline wound Will start parentral nutrition once central line placed, pending platelets transfusion (5) COPD (chronic obstructive pulmonary disease) Current Visit: Yes Status: Acute Comment: # HOB maintained at 30 degrees. # Encouraged use of IS #PRN Nebs (6) Acute urinary retention Current Visit: No Status: Acute Comment: Russell removed, needed Staraigh cath today 750cc of jeison urine came out (7) Hypokalemia Current Visit: Yes Status: Acute - Assessment and Plan (Free Text) Assessment: # HOB maintained at 30 degrees. Encouraged use of IS # GI/DVT PPX # Stress Ulcer prophylaxis # DVT prophylaxis with SCD, AC Not currently indicated due to thrombocytopenia # Code Status: Full code Total critical care time 48 minutes
--- NOTE | 2017-07-28 12:51 | CP.PCM.PN ---
Subjective - Date & Time of Evaluation Date of Evaluation: 07/28/17 Time of Evaluation: 07:00 - Subjective Subjective: denies fever chills c/o abd pain HBV Viral DNA pending Objective - Vital Signs/Intake and Output Vital Signs (last 24 hours): Temp Pulse Resp BP Pulse Ox 98.5 F 73 14 121/70 100 07/28/17 12:00 07/28/17 12:00 07/28/17 12:00 07/28/17 12:00 07/28/17 12:00 Intake and Output: 07/28/17 07/28/17 06:59 18:59 Intake Total 950 480 Output Total 910 Balance 40 480 - Medications Medications: Current Medications Acetaminophen (Tylenol 325mg Tab) 650 mg PO Q4 PRN PRN Reason: Pain, moderate (4-7) Diltiazem HCl (Cardizem) 60 mg PO Q8 [facility] Last Admin: 07/23/17 09:00 Dose: Not Given Fentanyl (Duragesic) 1 patch TD Q3D [facility] PRN Reason: Protocol Last Admin: 07/25/17 20:08 Dose: 1 patch Furosemide (Lasix) 20 mg IVP DAILY [facility] Last Admin: 07/28/17 08:23 Dose: 20 mg Meropenem 1 gm/ Sodium (Chloride) 100 mls @ 100 mls/hr IVPB Q8 [facility] PRN Reason: Protocol Last Admin: 07/28/17 08:23 Dose: 100 mls/hr Micafungin Sodium 100 mg/ (Sodium Chloride) 100 mls @ 100 mls/hr IVPB DAILY [facility] PRN Reason: Protocol Last Admin: 07/28/17 09:54 Dose: 100 mls/hr Sodium Chloride 70 meq/Potassium Phosphate 30 meq/Magnesium Sulfate 1.23 gm/ Calcium Gluconate 10 meq/Amino Acids 1,048.2835 mls @ 70 mls/hr IV .[id number] ONE Stop: 07/28/17 21:58 Potassium Phosphate 30 mmole/ (Sodium Chloride) 260 mls @ 65 mls/hr IV ONCE ONE Stop: 07/28/17 13:12 Last Admin: 07/28/17 11:07 Dose: 65 mls/hr Insulin Human Regular (Humulin R) 0 units SC ACHS [facility] PRN Reason: Protocol Last Admin: 07/28/17 06:34 Dose: 2 units Metoprolol Tartrate (Lopressor) 5 mg IVP 0000,0600,1200,1800 [facility] Last Admin: 07/28/17 05:18 Dose: 5 mg Morphine Sulfate (Morphine) 8 mg IVP Q4 PRN PRN Reason: Pain, moderate (4-7) Last Admin: 07/28/17 08:01 Dose: 8 mg Mupirocin (Bactroban Ointment) 1 applic TOP BID [facility] Last Admin: 07/28/17 08:23 Dose: 1 applic Octreotide Acetate (Sandostatin) 300 mcg SC Q8@0500,1300,2100 [facility] Last Admin: 07/28/17 05:17 Dose: 300 mcg Potassium Chloride (Potassium Chloride Oral Soln) 20 meq PO BID [facility] Last Admin: 07/23/17 09:05 Dose: Not Given Saccharomyces Boulardii (Florastor) 250 mg PO BID [facility] Last Admin: 07/23/17 09:00 Dose: Not Given - Labs Labs: 07/28/17 04:37 07/28/17 04:37 PT 15.9 Seconds (9.8-13.1) H 07/22/17 05:20 INR 1.4 (0.9-1.2) H 07/22/17 05:20 APTT 39.1 Seconds (25.6-37.1) H 07/22/17 05:20 - Constitutional Appears: Non-toxic, Chronically Ill - Head Exam Head Exam: NORMOCEPHALIC - Eye Exam Eye Exam: PERRL. absent: Scleral icterus - ENT Exam ENT Exam: Mucous Membranes Dry - Neck Exam Neck Exam: absent: Lymphadenopathy - Respiratory Exam Respiratory Exam: Decreased Breath Sounds - Cardiovascular Exam Cardiovascular Exam: REGULAR RHYTHM - GI/Abdominal Exam GI & Abdominal Exam: Distended, Soft - Rectal Exam Rectal Exam: Deferred - Exam Exam: NORMAL INSPECTION - Extremities Exam Extremities Exam: absent: Pedal Edema - Back Exam Back Exam: absent: CVA tenderness (L), CVA tenderness (R) - Neurological Exam Neurological Exam: Alert, Awake, CN II-XII Intact, Oriented x3 Neuro motor strength exam: Left Upper Extremity: 3, Right Upper Extremity: 3, Left Lower Extremity: 3, Right Lower Extremity: 3 - Psychiatric Exam Psychiatric exam: Depressed - Skin Skin Exam: Dry Assessment and Plan (1) Abdominal pain Status: Acute (2) COPD (chronic obstructive pulmonary disease) Status: Acute (3) Essential (primary) hypertension Status: Acute (4) Hx of atrial fibrillation, no current medication Status: Acute (5) Intestinal perforation Status: Acute (6) Perforated abdominal viscus Status: Acute (7) Sepsis Status: Acute - Assessment and Plan (Free Text) Assessment: 72 year old male with a past medical history of HTN, atrial fibrillation and deep vein thrombosis present to the emergency department complaining of abdominal pain which began x2 hours prior to arrival. Patient admitted with Acute abdomen, free air sec to perforated viscous 07/08, Underwent Jejunal perforation repair, small bowel resection and primary anastomosis, enterolysis, Irrisept irrigation, TEP block, RIJ TLC and placement, NGT placement about to complete 21 dsays IV antibiotics consider d/c antibiotics consider starting lamivudine for hep B
[2017-07-28] MEDS ORDERED: [UNRECOGNIZED DRUG - OTHER] IV ONE (15:45)
--- NOTE | 2017-07-28 20:57 | CP.PCM.PN ---
Subjective - Date & Time of Evaluation Date of Evaluation: 07/28/17 Time of Evaluation: 16:15 - Subjective Subjective: Appears comfortable, notes to abdominal pain. Objective - Vital Signs/Intake and Output Vital Signs (last 24 hours): Temp Pulse Resp BP Pulse Ox 98.0 F 64 22 109/59 L 100 07/28/17 16:00 07/28/17 18:00 07/28/17 18:00 07/28/17 18:00 07/28/17 18:00 Intake and Output: 07/28/17 07/29/17 18:59 06:59 Intake Total 1240 Output Total 1265 Balance -25 - Medications Medications: Current Medications Acetaminophen (Tylenol 325mg Tab) 650 mg PO Q4 PRN PRN Reason: Pain, moderate (4-7) Diltiazem HCl (Cardizem) 60 mg PO Q8 [facility] Last Admin: 07/23/17 09:00 Dose: Not Given Furosemide (Lasix) 20 mg IVP DAILY [facility] Last Admin: 07/28/17 08:23 Dose: 20 mg Meropenem 1 gm/ Sodium (Chloride) 100 mls @ 100 mls/hr IVPB Q8 [facility] PRN Reason: Protocol Last Admin: 07/28/17 17:41 Dose: 100 mls/hr Micafungin Sodium 100 mg/ (Sodium Chloride) 100 mls @ 100 mls/hr IVPB DAILY [facility] PRN Reason: Protocol Last Admin: 07/28/17 09:54 Dose: 100 mls/hr Sodium Chloride 70 meq/Potassium Phosphate 30 meq/Magnesium Sulfate 1.23 gm/ Calcium Gluconate 10 meq/Amino Acids 1,048.2835 mls @ 70 mls/hr IV .[id number] ONE Stop: 07/28/17 21:58 Sodium Chloride 70 meq/Potassium Phosphate 30 mmole/Magnesium Sulfate 10 meq/ Calcium Gluconate 10 meq/Multivitamins/Vitamin C 10 ml/Chromium/Copper/Manganese /Zinc 3 ml/ Amino Acids 1,064.4683 mls @ 70 mls/hr IV .[id number] ONE Stop: 07/29/17 06:57 Potassium Phosphate 30 mmole/Magnesium Sulfate 10 meq/Calcium Gluconate 10 meq/ Sodium Chloride 70 meq/ Amino Acids 1,051.4683 mls @ 70 mls/hr IV .Q15H2M ONE Stop: 07/29/17 22:01 Insulin Human Regular (Humulin R) 0 units SC ACHS [facility] PRN Reason: Protocol Last Admin: 07/28/17 16:55 Dose: 2 units Metoprolol Tartrate (Lopressor) 5 mg IVP 0000,0600,1200,1800 [facility] Last Admin: 07/28/17 17:43 Dose: Not Given Morphine Sulfate (Morphine) 8 mg IVP Q4 PRN PRN Reason: Pain, moderate (4-7) Last Admin: 07/28/17 20:37 Dose: 8 mg Mupirocin (Bactroban Ointment) 1 applic TOP BID [facility] Last Admin: 07/28/17 17:40 Dose: 1 applic Octreotide Acetate (Sandostatin) 300 mcg SC Q8@0500,1300,2100 [facility] Last Admin: 07/28/17 13:16 Dose: 300 mcg Potassium Chloride (Potassium Chloride Oral Soln) 20 meq PO BID [facility] Last Admin: 07/23/17 09:05 Dose: Not Given Saccharomyces Boulardii (Florastor) 250 mg PO BID [facility] Last Admin: 07/23/17 09:00 Dose: Not Given - Labs Labs: 07/28/17 04:37 07/28/17 04:37 PT 15.9 Seconds (9.8-13.1) H 07/22/17 05:20 INR 1.4 (0.9-1.2) H 07/22/17 05:20 APTT 39.1 Seconds (25.6-37.1) H 07/22/17 05:20 - Head Exam Head Exam: ATRAUMATIC - Eye Exam Eye Exam: Normal appearance - ENT Exam ENT Exam: Mucous Membranes Dry - Respiratory Exam Respiratory Exam: NORMAL BREATHING PATTERN - Cardiovascular Exam Cardiovascular Exam: +S1, +S2 - GI/Abdominal Exam GI & Abdominal Exam: Normal Bowel Sounds Assessment and Plan (1) Pancytopenia Assessment & Plan: improved plt count suspect sepsis related polypharmacy ? drug induced monitoring fibrinogen to determine evolution into DIC anemia of chronic disease transfusion support PRN Status: Acute
[2017-07-29] MEDS: Morphine 4 MG/ML VIAL IVP PRN ×5 (00:45→21:29)
[2017-07-29] MEDS: Metoprolol 1 mg/ml Inj IVP SCH ×5 (00:48→23:52)
[2017-07-29] MEDS: Meropenem 1 GM in Sodium Chloride 0.9% 100 ML IVPB SCH ×3 (00:49→16:07)
[2017-07-29] MEDS: Octreotide 500 mcg/ml Inj SC SCH ×3 (05:03→20:29)
[2017-07-29 05:40] LABS: HEMOGLOBIN 8.5 g/dL (12.0-18.0); MEAN CELL VOLUME 104.8 fl (80.0-94.0); MEAN CORPUSCULAR HEMOGLOBIN 32.9 pg (27.0-31.0); MEAN CORPUSCULAR HGB CONC 31.4 g/dL (33.0-37.0); RBC 2.58 Mil/uL (4.40-5.90); RED CELL DISTRIBUTION WIDTH 17.4 % (11.5-14.5); WHITE BLOOD COUNT 4.1 K/uL (4.8-10.8)
[2017-07-29 06:04] LABS: ALB/GLOB RATIO 0.7 (1.0-2.1); ALBUMIN 1.5 g/dL (3.5-5.0); ALT/SGPT 33 U/L (21-72); AST/SGOT 24 U/L (17-59); BLOOD UREA NITROGEN 19 mg/dl (9-20); CALCIUM 7.4 mg/dL (8.4-10.2); GFR AFRICAN-AMERICAN > 60; GFR NON-AFRICAN AMERICAN > 60
[2017-07-29] MEDS: Insulin Regular 100 units/ml SC SCH (06:47)
[2017-07-29] MEDS ORDERED: MAGNESIUM SULFATE IV ONE ×2 (07:00→16:00)
[2017-07-29] MEDS ORDERED: POTASSIUM PHOSPHATE IV ONE ×2 (07:00→16:00)
[2017-07-29] MEDS ORDERED: [UNRECOGNIZED DRUG - OTHER] IV ONE (07:00)
[2017-07-29] MEDS ORDERED: CALCIUM GLUCONATE IV ONE (07:00)
--- NOTE | 2017-07-29 08:03 | CP.PCM.PN ---
Subjective - Date & Time of Evaluation Date of Evaluation: 07/29/17 Time of Evaluation: 08:01 - Subjective Subjective: SURGERY NOTE FOR DR. ODOM 72M seen and examined at bedside. No acute events overnight, Patient continue to complain of severe abdominal pain despite pain medication. Denies nausea, vomiting. Stool continue to leak out of abdominal incision. Objective - Vital Signs/Intake and Output Vital Signs (last 24 hours): Temp Pulse Resp BP Pulse Ox 98.5 F 71 17 129/74 100 07/29/17 07:54 07/29/17 07:54 07/29/17 07:54 07/29/17 07:54 07/29/17 07:54 Intake and Output: 07/29/17 07/29/17 06:59 18:59 Intake Total 940 70 Output Total 575 Balance 365 70 - Medications Medications: Current Medications Acetaminophen (Tylenol 325mg Tab) 650 mg PO Q4 PRN PRN Reason: Pain, moderate (4-7) Diltiazem HCl (Cardizem) 60 mg PO Q8 [facility] Last Admin: 07/23/17 09:00 Dose: Not Given Furosemide (Lasix) 20 mg IVP DAILY [facility] Last Admin: 07/28/17 08:23 Dose: 20 mg Meropenem 1 gm/ Sodium (Chloride) 100 mls @ 100 mls/hr IVPB Q8 [facility] PRN Reason: Protocol Last Admin: 07/29/17 00:49 Dose: 100 mls/hr Micafungin Sodium 100 mg/ (Sodium Chloride) 100 mls @ 100 mls/hr IVPB DAILY [facility] PRN Reason: Protocol Last Admin: 07/28/17 09:54 Dose: 100 mls/hr Potassium Phosphate 30 mmole/Magnesium Sulfate 10 meq/Calcium Gluconate 10 meq/ Sodium Chloride 70 meq/ Amino Acids 1,051.4683 mls @ 70 mls/hr IV .Q15H2M ONE Stop: 07/29/17 22:01 Insulin Human Regular (Humulin R) 0 units SC ACHS [facility] PRN Reason: Protocol Last Admin: 07/29/17 06:47 Dose: 2 units Metoprolol Tartrate (Lopressor) 5 mg IVP 0000,0600,1200,1800 [facility] Last Admin: 07/29/17 05:45 Dose: 5 mg Morphine Sulfate (Morphine) 8 mg IVP Q4 PRN PRN Reason: Pain, moderate (4-7) Last Admin: 07/29/17 05:44 Dose: 8 mg Mupirocin (Bactroban Ointment) 1 applic TOP BID [facility] Last Admin: 07/28/17 17:40 Dose: 1 applic Octreotide Acetate (Sandostatin) 300 mcg SC Q8@0500,1300,2100 [facility] Last Admin: 07/29/17 05:03 Dose: 300 mcg Potassium Chloride (Potassium Chloride Oral Soln) 20 meq PO BID [facility] Last Admin: 07/23/17 09:05 Dose: Not Given Saccharomyces Boulardii (Florastor) 250 mg PO BID [facility] Last Admin: 07/23/17 09:00 Dose: Not Given - Labs Labs: 07/29/17 04:37 07/29/17 04:37 PT 15.9 Seconds (9.8-13.1) H 07/22/17 05:20 INR 1.4 (0.9-1.2) H 07/22/17 05:20 APTT 39.1 Seconds (25.6-37.1) H 07/22/17 05:20 - Constitutional Appears: Well, Non-toxic, No Acute Distress - Respiratory Exam Respiratory Exam: Clear to Ausculation Bilateral, NORMAL BREATHING PATTERN - Cardiovascular Exam Cardiovascular Exam: REGULAR RHYTHM, +S1, +S2 - GI/Abdominal Exam GI & Abdominal Exam: Firm, Soft, Tenderness. absent: Distended, Guarding, Rigid , Rebound Additional comments: stool leakage from abdominal incision - Neurological Exam Neurological Exam: Alert, Awake Assessment and Plan - Assessment and Plan (Free Text) Assessment: 72M s/p ex-lap for perforated viscous with Small bowel resection with anastomosis POD#21, with post-op leak Plan: - NPO - NGT (monitor output) - continue TPN - Patient has poor nutritional status, DIC - Regular wound care, dressing changes - Further recommendations as per Dr. Zaynab Miller, PGY2
[2017-07-29] MEDS: Micafungin 100 MG in Sodium Chloride 0.9% 100 ML IVPB SCH (08:47)
--- NOTE | 2017-07-29 10:08 | CP.PCM.PN ---
Subjective - Date & Time of Evaluation Date of Evaluation: 07/29/17 Time of Evaluation: 10:06 - Subjective Subjective: Patient seen and examined at bedside. Patient's c/o pain at site of abdominal wound, nursing noted brownish stool at wound site, last cxr reveals Ng tube above the diapragm, patient is on contact isolation Objective - Vital Signs/Intake and Output Vital Signs (last 24 hours): Temp Pulse Resp BP Pulse Ox 98.5 F 76 15 118/70 100 07/29/17 07:54 07/29/17 09:00 07/29/17 09:00 07/29/17 09:00 07/29/17 09:00 Intake and Output: 07/29/17 07/29/17 06:59 18:59 Intake Total 940 70 Output Total 575 Balance 365 70 - Medications Medications: Current Medications Acetaminophen (Tylenol 325mg Tab) 650 mg PO Q4 PRN PRN Reason: Pain, moderate (4-7) Diltiazem HCl (Cardizem) 60 mg PO Q8 [facility] Last Admin: 07/23/17 09:00 Dose: Not Given Furosemide (Lasix) 20 mg IVP DAILY [facility] Last Admin: 07/29/17 08:09 Dose: 20 mg Meropenem 1 gm/ Sodium (Chloride) 100 mls @ 100 mls/hr IVPB Q8 [facility] PRN Reason: Protocol Last Admin: 07/29/17 08:09 Dose: 100 mls/hr Micafungin Sodium 100 mg/ (Sodium Chloride) 100 mls @ 100 mls/hr IVPB DAILY [facility] PRN Reason: Protocol Last Admin: 07/29/17 08:47 Dose: 100 mls/hr Potassium Phosphate 30 mmole/Magnesium Sulfate 10 meq/Calcium Gluconate 10 meq/ Sodium Chloride 70 meq/ Amino Acids 1,051.4683 mls @ 70 mls/hr IV .Q15H2M ONE Stop: 07/29/17 22:01 Insulin Human Regular (Humulin R) 0 units SC ACHS [facility] PRN Reason: Protocol Last Admin: 07/29/17 06:47 Dose: 2 units Metoprolol Tartrate (Lopressor) 5 mg IVP 0000,0600,1200,1800 [facility] Last Admin: 07/29/17 05:45 Dose: 5 mg Morphine Sulfate (Morphine) 8 mg IVP Q4 PRN PRN Reason: Pain, moderate (4-7) Last Admin: 07/29/17 05:44 Dose: 8 mg Mupirocin (Bactroban Ointment) 1 applic TOP BID [facility] Last Admin: 07/29/17 08:08 Dose: 1 applic Octreotide Acetate (Sandostatin) 300 mcg SC Q8@0500,1300,2100 [facility] Last Admin: 07/29/17 05:03 Dose: 300 mcg Potassium Chloride (Potassium Chloride Oral Soln) 20 meq PO BID [facility] Last Admin: 07/23/17 09:05 Dose: Not Given Saccharomyces Boulardii (Florastor) 250 mg PO BID [facility] Last Admin: 07/23/17 09:00 Dose: Not Given - Labs Labs: 07/29/17 04:37 07/29/17 04:37 PT 15.9 Seconds (9.8-13.1) H 07/22/17 05:20 INR 1.4 (0.9-1.2) H 07/22/17 05:20 APTT 39.1 Seconds (25.6-37.1) H 07/22/17 05:20 - Constitutional Appears: Well, No Acute Distress, Cachectic - Head Exam Head Exam: ATRAUMATIC - Eye Exam Pupil Exam: NORMAL ACCOMODATION - ENT Exam ENT Exam: Mucous Membranes Moist - Respiratory Exam Respiratory Exam: Decreased Breath Sounds - Cardiovascular Exam Cardiovascular Exam: REGULAR RHYTHM, +S1, +S2, +S4 - GI/Abdominal Exam GI & Abdominal Exam: Soft Additional comments: dressing at abdominal wound - Extremities Exam Extremities Exam: Pedal Edema - Neurological Exam Neurological Exam: Alert, Awake Assessment and Plan - Assessment and Plan (Free Text) Assessment: -Post abdominal surgery: not started on oral diet 2nd wound and no BMs as per nursing ?enterocutaneous fistula formation with fecal material out of wound site , currently on TPN, obtain CXr last ng tube above diapragm -Bl pleural effusion: 2nd malnutrition decreasing oncotic pressure and (+)fluid balance, continue lasix, patient has no respiratory distress, tolerating nasal canula -Bessy Lusitania: continue antifungal as per ID, 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, WBC normal -Pancytopenia: anemia: check Iron profile, platelets: check HIT, leukopenia: heme/onc consult, possible 2nd medication micafungin/meropenem -OOB to chair daily -CMP reveals a BGm of 1246: suspect 2nd blood drawn from TPN line, repeat 239 continue correction with lispro/ISS q6hrs -wound care: daily -pain continue opioids -severe malnutrition: encourage early trial of oral (to be advanced as per surgery team) -Russell: nursing advised not to switch to condom as previously attempted and did not work and patient currently on lasix, unknown if retention previously -PICC/MID line: site intact, no rubor/dolor -contine dvt/pud ppx Prognosis guarded
[2017-07-29] MEDS: Insulin Lispro (humaLOG) 100 Units/ml Inj SC SCH ×3 (10:57→23:11)
--- NOTE | 2017-07-29 15:02 | RAD ---
PROCEDURE: CHEST RADIOGRAPH, 1 VIEW HISTORY: ng tube COMPARISON: Chest radiograph dated 07/21/2017. FINDINGS: LUNGS: Pulmonary vascular congestion. Bibasilar atelectasis. PLEURA: Moderate bilateral pleural effusions, without significant change. CARDIOVASCULAR: Atherosclerotic aortic calcifications. Cardiomediastinal silhouette stably performed. OSSEOUS STRUCTURES: Unchanged. VISUALIZED UPPER ABDOMEN: Normal. OTHER FINDINGS: Enteric tube, unchanged. Right upper extremity PICC with catheter tip in the SVC. IMPRESSION: Pulmonary vascular congestion and moderate bilateral pleural effusions, grossly unchanged.
[2017-07-29] MEDS ORDERED: SODIUM CHLORIDE IV ONE (16:00)
[2017-07-29] MEDS ORDERED: [UNRECOGNIZED DRUG - OTHER] IV ONE (16:00)
--- NOTE | 2017-07-29 23:20 | CP.PCM.PN ---
Subjective - Date & Time of Evaluation Date of Evaluation: 07/28/17 Time of Evaluation: 11:00 - Subjective Subjective: Patient remains stable Still with low Hgb. Noted improvement of platelet. Objective - Vital Signs/Intake and Output Vital Signs (last 24 hours): Temp Pulse Resp BP Pulse Ox 98.9 F 67 18 110/55 L 100 07/29/17 15:56 07/29/17 21:39 07/29/17 21:39 07/29/17 21:39 07/29/17 21:39 Intake and Output: 07/29/17 07/30/17 18:59 06:59 Intake Total 1120 210 Output Total 2505 Balance -1385 210 - Medications Medications: Current Medications Acetaminophen (Tylenol 325mg Tab) 650 mg PO Q4 PRN PRN Reason: Pain, moderate (4-7) Furosemide (Lasix) 20 mg IVP DAILY [facility] Last Admin: 07/29/17 08:09 Dose: 20 mg Meropenem 1 gm/ Sodium (Chloride) 100 mls @ 100 mls/hr IVPB Q8 [facility] PRN Reason: Protocol Last Admin: 07/29/17 16:07 Dose: 100 mls/hr Micafungin Sodium 100 mg/ (Sodium Chloride) 100 mls @ 100 mls/hr IVPB DAILY [facility] PRN Reason: Protocol Last Admin: 07/29/17 08:47 Dose: 100 mls/hr Fat Emulsion Intravenous (Intralipid 20%) 250 mls @ 10.417 mls/hr IV .Q24H ONE Stop: 07/31/17 08:59 Sodium Chloride 70 meq/Potassium Phosphate 30 mmole/Magnesium Sulfate 10 meq/ Calcium Gluconate 10 meq/Multivitamins/Vitamin C 10 ml/Chromium/Copper/Manganese /Zinc 3 ml/ Amino Acids 1,064.4683 mls @ 70 mls/hr IV .[id number] ONE Stop: 07/30/17 07:12 Sodium Chloride 70 meq/Potassium Phosphate 30 mmole/Magnesium Sulfate 10 meq/ Calcium Gluconate 10 meq/Amino Acids 1,051.4683 mls @ 70 mls/hr IV .Q15H2M ONE Stop: 07/30/17 23:01 Insulin Human Lispro (Humalog) 0 units SC Q6H [facility] PRN Reason: Protocol Last Admin: 07/29/17 23:11 Dose: Not Given Metoprolol Tartrate (Lopressor) 5 mg IVP 0000,0600,1200,1800 [facility] Last Admin: 07/29/17 17:57 Dose: 5 mg Morphine Sulfate (Morphine) 8 mg IVP Q4 PRN PRN Reason: Pain, moderate (4-7) Last Admin: 07/29/17 21:29 Dose: 8 mg Mupirocin (Bactroban Ointment) 1 applic TOP BID [facility] Last Admin: 07/29/17 16:06 Dose: 1 applic Octreotide Acetate (Sandostatin) 300 mcg SC Q8@0500,1300,2100 [facility] Last Admin: 07/29/17 20:29 Dose: 300 mcg Potassium Chloride (Potassium Chloride Oral Soln) 20 meq PO BID [facility] Last Admin: 07/23/17 09:05 Dose: Not Given - Labs Labs: 07/29/17 04:37 07/29/17 04:37 PT 15.9 Seconds (9.8-13.1) H 07/22/17 05:20 INR 1.4 (0.9-1.2) H 07/22/17 05:20 APTT 39.1 Seconds (25.6-37.1) H 07/22/17 05:20 - Head Exam Head Exam: NORMAL INSPECTION - Eye Exam Eye Exam: Normal appearance - ENT Exam ENT Exam: Mucous Membranes Moist - Respiratory Exam Respiratory Exam: Clear to Ausculation Bilateral - Cardiovascular Exam Cardiovascular Exam: REGULAR RHYTHM - GI/Abdominal Exam GI & Abdominal Exam: Normal Bowel Sounds - Neurological Exam Neurological Exam: CN II-XII Intact, Oriented x3 - Psychiatric Exam Psychiatric exam: Normal Mood Assessment and Plan (1) Abdominal pain Status: Acute (2) COPD (chronic obstructive pulmonary disease) Status: Acute (3) Essential (primary) hypertension Status: Acute (4) Hx of atrial fibrillation, no current medication Status: Acute (5) Intestinal perforation Status: Acute (6) Perforated abdominal viscus Status: Acute (7) Atrial fibrillation Status: Acute (8) Anemia Status: Acute (9) Thrombocytopenia Status: Acute (10) Abscess Status: Acute - Assessment and Plan (Free Text) Assessment: Cont meds Cont tx Cont NGT feeding cont monitor cbc cmp
--- NOTE | 2017-07-29 23:22 | CP.PCM.PN ---
Subjective - Date & Time of Evaluation Date of Evaluation: 07/29/17 Time of Evaluation: 12:30 - Subjective Subjective: Noted to have increase in platelet. Has no fever. Has no abd pain. Started on NGT feeding Has good urine output. Objective - Vital Signs/Intake and Output Vital Signs (last 24 hours): Temp Pulse Resp BP Pulse Ox 98.9 F 67 18 110/55 L 100 07/29/17 15:56 07/29/17 21:39 07/29/17 21:39 07/29/17 21:39 07/29/17 21:39 Intake and Output: 07/29/17 07/30/17 18:59 06:59 Intake Total 1120 210 Output Total 2505 Balance -1385 210 - Medications Medications: Current Medications Acetaminophen (Tylenol 325mg Tab) 650 mg PO Q4 PRN PRN Reason: Pain, moderate (4-7) Furosemide (Lasix) 20 mg IVP DAILY [facility] Last Admin: 07/29/17 08:09 Dose: 20 mg Meropenem 1 gm/ Sodium (Chloride) 100 mls @ 100 mls/hr IVPB Q8 [facility] PRN Reason: Protocol Last Admin: 07/29/17 16:07 Dose: 100 mls/hr Micafungin Sodium 100 mg/ (Sodium Chloride) 100 mls @ 100 mls/hr IVPB DAILY [facility] PRN Reason: Protocol Last Admin: 07/29/17 08:47 Dose: 100 mls/hr Fat Emulsion Intravenous (Intralipid 20%) 250 mls @ 10.417 mls/hr IV .Q24H ONE Stop: 07/31/17 08:59 Sodium Chloride 70 meq/Potassium Phosphate 30 mmole/Magnesium Sulfate 10 meq/ Calcium Gluconate 10 meq/Multivitamins/Vitamin C 10 ml/Chromium/Copper/Manganese /Zinc 3 ml/ Amino Acids 1,064.4683 mls @ 70 mls/hr IV .[id number] ONE Stop: 07/30/17 07:12 Sodium Chloride 70 meq/Potassium Phosphate 30 mmole/Magnesium Sulfate 10 meq/ Calcium Gluconate 10 meq/Amino Acids 1,051.4683 mls @ 70 mls/hr IV .Q15H2M ONE Stop: 07/30/17 23:01 Insulin Human Lispro (Humalog) 0 units SC Q6H [facility] PRN Reason: Protocol Last Admin: 07/29/17 23:11 Dose: Not Given Metoprolol Tartrate (Lopressor) 5 mg IVP 0000,0600,1200,1800 [facility] Last Admin: 07/29/17 17:57 Dose: 5 mg Morphine Sulfate (Morphine) 8 mg IVP Q4 PRN PRN Reason: Pain, moderate (4-7) Last Admin: 07/29/17 21:29 Dose: 8 mg Mupirocin (Bactroban Ointment) 1 applic TOP BID [facility] Last Admin: 07/29/17 16:06 Dose: 1 applic Octreotide Acetate (Sandostatin) 300 mcg SC Q8@0500,1300,2100 [facility] Last Admin: 07/29/17 20:29 Dose: 300 mcg Potassium Chloride (Potassium Chloride Oral Soln) 20 meq PO BID [facility] Last Admin: 07/23/17 09:05 Dose: Not Given - Labs Labs: 07/29/17 04:37 07/29/17 04:37 PT 15.9 Seconds (9.8-13.1) H 07/22/17 05:20 INR 1.4 (0.9-1.2) H 07/22/17 05:20 APTT 39.1 Seconds (25.6-37.1) H 07/22/17 05:20 - Head Exam Head Exam: NORMAL INSPECTION - Eye Exam Eye Exam: Normal appearance - ENT Exam ENT Exam: Mucous Membranes Moist - Respiratory Exam Respiratory Exam: Clear to Ausculation Bilateral - Cardiovascular Exam Cardiovascular Exam: REGULAR RHYTHM - GI/Abdominal Exam GI & Abdominal Exam: Normal Bowel Sounds - Neurological Exam Neurological Exam: Awake, Oriented x3 Assessment and Plan (1) Abdominal pain Status: Acute (2) COPD (chronic obstructive pulmonary disease) Status: Acute (3) Essential (primary) hypertension Status: Acute (4) Hx of atrial fibrillation, no current medication Status: Acute (5) Intestinal perforation Status: Acute (6) Perforated abdominal viscus Status: Acute (7) Atrial fibrillation Status: Acute (8) Anemia Status: Acute (9) Thrombocytopenia Status: Acute (10) Abscess Status: Acute - Assessment and Plan (Free Text) Plan: Con tmeds Cont tx Cont NGT feeding check labs.
[2017-07-30] MEDS: Meropenem 1 GM in Sodium Chloride 0.9% 100 ML IVPB SCH ×3 (00:02→17:28)
[2017-07-30] MEDS: Octreotide 500 mcg/ml Inj SC SCH ×2 (04:40→12:20)
[2017-07-30] MEDS: Insulin Lispro (humaLOG) 100 Units/ml Inj SC SCH ×4 (04:41→21:47)
[2017-07-30] MEDS: Metoprolol 1 mg/ml Inj IVP SCH ×4 (05:07→23:38)
[2017-07-30 05:58] LABS: HEMOGLOBIN 8.1 g/dL (12.0-18.0); MEAN CELL VOLUME 102.3 fl (80.0-94.0); MEAN CORPUSCULAR HEMOGLOBIN 32.8 pg (27.0-31.0); MEAN CORPUSCULAR HGB CONC 32.1 g/dL (33.0-37.0); RBC 2.47 Mil/uL (4.40-5.90); RED CELL DISTRIBUTION WIDTH 17.1 % (11.5-14.5); WHITE BLOOD COUNT 3.7 K/uL (4.8-10.8)
[2017-07-30] MEDS: Morphine 4 MG/ML VIAL IVP PRN ×4 (06:10→19:34)
[2017-07-30 06:28] LABS: ALB/GLOB RATIO 0.6 (1.0-2.1); ALBUMIN 1.5 g/dL (3.5-5.0); ALT/SGPT 35 U/L (21-72); AST/SGOT 36 U/L (17-59); BLOOD UREA NITROGEN 23 mg/dl (9-20); CALCIUM 7.3 mg/dL (8.4-10.2); GFR AFRICAN-AMERICAN > 60; GFR NON-AFRICAN AMERICAN > 60
[2017-07-30 07:14] LABS: BLOOD UREA NITROGEN 24 mg/dl (9-20); CALCIUM 6.8 mg/dL (8.4-10.2); GFR AFRICAN-AMERICAN > 60; GFR NON-AFRICAN AMERICAN > 60
[2017-07-30] MEDS ORDERED: SODIUM CHLORIDE IV ONE ×3 (08:00→15:30)
[2017-07-30] MEDS ORDERED: POTASSIUM PHOSPHATE IV ONE ×3 (08:00→15:30)
[2017-07-30] MEDS ORDERED: MAGNESIUM SULFATE IV ONE ×3 (08:00→15:30)
[2017-07-30] MEDS ORDERED: [UNRECOGNIZED DRUG - OTHER] IV ONE ×3 (08:00→15:30)
--- NOTE | 2017-07-30 08:05 | CP.PCM.PCO ---
Physician Communication Note - Physician Communication Note Physician Communication Note: Apply ostomy bags where feculent output is leaking through
[2017-07-30] MEDS: Micafungin 100 MG in Sodium Chloride 0.9% 100 ML IVPB SCH (08:58)
[2017-07-30] MEDS ORDERED: Fat Emulsion 20% IV 250 ML IV ONE ×2 (09:00→10:15)
--- NOTE | 2017-07-30 09:51 | CP.CCUPN ---
CCU Subjective - Physician Review Subjective (Free Text): 07/17/17 The patient was Seen/interviewed and examined by me at the bedside during ICU round, Medical records reviewed and Management issues were discussed and formulated with the house staff. Events reviewed Mr Wolf is 72 year old male with a past medical history of HTN, atrial fibrillation and deep vein thrombosis present to the emergency department complaining of abdominal pain which began x2 hours prior to arrival. Patient admitted with Acute abdomen, free air sec to perforated viscous 07/08, Underwent Jejunal perforation repair, small bowel resection and primary anastomosis, enterolysis, Irrisept irrigation, TEP block, RIJ TLC and placement, NGT placement This morning he is Alert and oriented Continues to report intermittent Abdomen Pain/tenderness Comfortable, in no Distress Alert and oriented to self. Pain controlled on high dose narcotics Afebrile BP has been stable, No Vasopressors Breathing unlabored, on room air O2 sat 100%. A_Fib on the monitor In A fib, HR Uncontrolled, off amiodoron infusion and was started on Cardizem 60 mg PO Q 8H Last 24H I&O 2200/3315 (-1115) High brown drainage from midline wound Will discuss with surgery for possible repeat CT scan This morning labs revealed Stable renal function, Neutropenia Stable H/H No evidence of active bleed Platelets trending up to 107 today, Hematology on board, suspect sepsis related Zyvox Held Pt is NPO TPN started via PICC, Will add insulin due to elevated BG CCU Objective - Vital Signs / Intake & Output Vital Signs (Last 4 hours): Vital Signs Temp Pulse Resp BP Pulse Ox 07/30/17 08:55 128/62 07/30/17 08:00 98.1 F 60 39 H 128/62 100 07/30/17 07:21 67 19 122/55 L 100 07/30/17 06:11 65 14 119/64 100 Intake and Output (Last 8hrs): Intake & Output 07/29/17 07/30/17 07/30/17 22:59 06:59 14:59 Intake Total 590 870 450 Output Total 2505 810 Balance -1915 60 450 Intake: Intake, Piggyback 100 100 450 Oral 0 0 TPN/PPN 490 630 Lipid 140 Output: Gastric Amount 200 100 Left Nares 200 100 Drainage 5 10 Left 0 10 Right 5 0 Urine 2300 700 Urethral (Russell) 2300 700 - Physical Exam Head: Positive for: Normocephalic Pupils: Positive for: PERRL Conjunctiva: Negative for: Icteric Mouth: Positive for: Moist Mucous Membranes Neck: Negative for: JVD Respiratory/Chest: Positive for: Clear to Auscultation, Decreased Breath Sounds. Negative for: Accessory Muscle Use, Wheezes, Rhonchi Cardiovascular: Positive for: Irregular Rhythm, Tachycardic. Negative for: Murmurs, Rub Abdomen: Positive for: Tenderness, Other (leaking stool like material from surgical wound). Negative for: Distention, Normal Bowel Sounds, Rebound, Guarding, Mass/Organomegaly Lower Extremity: Positive for: NORMAL PULSES. Negative for: CALF TENDERNESS, Cyanosis Neurological: Positive for: Motor Func Grossly Intact, Normal Sensory Function Skin: Positive for: Warm, Dry. Negative for: Rashes Psychiatric: Positive for: Alert, Oriented x 3 - Medications Active Medications: Active Medications Generic Name Dose Route Start Last Admin Trade Name Freq PRN Reason Stop Dose Admin Acetaminophen 650 mg 07/13/17 07:49 Tylenol 325mg Tab PO Q4 PRN Pain, moderate (4-7) Furosemide 20 mg 07/14/17 09:00 07/30/17 08:55 Lasix IVP 20 mg DAILY [facility] Administration Meropenem 1 gm/ Sodium 100 mls @ 100 mls/hr 07/22/17 17:00 07/30/17 08:57 Chloride IVPB 100 mls/hr Q8 [facility] Administration Protocol Micafungin Sodium 100 mg/ 100 mls @ 100 mls/hr 07/22/17 14:15 07/30/17 08:58 Sodium Chloride IVPB 100 mls/hr DAILY [facility] Administration Protocol Fat Emulsion Intravenous 250 mls @ 10.417 mls/hr 07/30/17 09:00 07/30/17 08: 54 Intralipid 20% IV 07/31/17 08:59 10.417 mls/hr .Q24H ONE Administration Sodium Chloride 70 meq/ 1,051.4683 mls @ 70 mls/hr 07/30/17 08:00 Potassium Phosphate 30 mmole/ IV 07/30/17 23:01 Magnesium Sulfate 10 meq/ .Q15H2M ONE Calcium Gluconate 10 meq/ Amino Acids Insulin Human Lispro 0 units 07/29/17 10:30 07/30/17 04:41 Humalog SC 2 u Q6H [facility] Administration Protocol Metoprolol Tartrate 5 mg 07/27/17 12:00 07/30/17 05:07 Lopressor IVP 5 mg 0000,0600,1200,1800 [facility] Administration Morphine Sulfate 8 mg 07/26/17 08:55 07/30/17 06:10 Morphine IVP 8 mg Q4 PRN Administration Pain, moderate (4-7) Mupirocin 1 applic 07/09/17 20:15 07/30/17 08:54 Bactroban Ointment TOP 1 applic BID [facility] Administration Octreotide Acetate 300 mcg 07/22/17 21:00 07/30/17 04:40 Sandostatin SC 300 mcg Q8@0500,1300,2100 [facility] Administration Potassium Chloride 20 meq 07/16/17 17:00 07/23/17 09:05 Potassium Chloride Oral Soln PO Not Given BID [facility] - Patient Studies Lab Studies: Lab Studies 07/30/17 07/30/17 07/30/17 Range/Units 06:30 04:35 04:35 WBC 3.7 L (4.8-10.8) K/uL RBC 2.47 L (4.40-5.90) Mil/uL Hgb 8.1 L (12.0-18.0) g/dL Hct 25.3 L (35.0-51.0) % MCV 102.3 H D (80.0-94.0) fl MCH 32.8 H (27.0-31.0) pg MCHC 32.1 L (33.0-37.0) g/dL RDW 17.1 H (11.5-14.5) % Plt Count 107 L D (130-400) K/uL Sodium 137 132 (132-148) mmol/l Potassium 2.9 L 4.5 (3.6-5.0) MMOL/L Chloride 96 L 94 L (98-107) mmol/L Carbon Dioxide 33 H 31 H (22-30) mmol/L Anion Gap 11 12 (10-20) BUN 24 H 23 H (9-20) mg/dl Creatinine 0.6 L 0.7 L (0.8-1.5) mg/dl Est GFR ( Amer) > 60 > 60 Est GFR (Non-Af Amer) > 60 > 60 POC Glucose (mg/dL) (65-110) mg/dL Random Glucose 116 H 973 H* D (75-110) mg/dL Calcium 6.8 L 7.3 L (8.4-10.2) mg/dL Phosphorus 6.1 H (2.5-4.5) mg/dl Magnesium 2.2 (1.6-2.3) MG/DL Total Bilirubin 0.8 (0.2-1.3) mg/dl AST 36 (17-59) U/L ALT 35 (21-72) U/L Alkaline Phosphatase 64 (38-126) U/L Total Protein 4.0 L (6.3-8.2) G/DL Albumin 1.5 L (3.5-5.0) g/dL Globulin 2.5 (2.2-3.9) gm/dL Albumin/Globulin Ratio 0.6 L (1.0-2.1) 07/30/17 07/29/17 07/29/17 Range/Units 04:25 20:40 16:10 WBC (4.8-10.8) K/uL RBC (4.40-5.90) Mil/uL Hgb (12.0-18.0) g/dL Hct (35.0-51.0) % MCV (80.0-94.0) fl MCH (27.0-31.0) pg MCHC (33.0-37.0) g/dL RDW (11.5-14.5) % Plt Count (130-400) K/uL Sodium (132-148) mmol/l Potassium (3.6-5.0) MMOL/L Chloride (98-107) mmol/L Carbon Dioxide (22-30) mmol/L Anion Gap (10-20) BUN (9-20) mg/dl Creatinine (0.8-1.5) mg/dl Est GFR ( Amer) Est GFR (Non-Af Amer) POC Glucose (mg/dL) 227 H 216 H 164 H (65-110) mg/dL Random Glucose (75-110) mg/dL Calcium (8.4-10.2) mg/dL Phosphorus (2.5-4.5) mg/dl Magnesium (1.6-2.3) MG/DL Total Bilirubin (0.2-1.3) mg/dl AST (17-59) U/L ALT (21-72) U/L Alkaline Phosphatase (38-126) U/L Total Protein (6.3-8.2) G/DL Albumin (3.5-5.0) g/dL Globulin (2.2-3.9) gm/dL Albumin/Globulin Ratio (1.0-2.1) 07/29/17 Range/Units 10:52 WBC (4.8-10.8) K/uL RBC (4.40-5.90) Mil/uL Hgb (12.0-18.0) g/dL Hct (35.0-51.0) % MCV (80.0-94.0) fl MCH (27.0-31.0) pg MCHC (33.0-37.0) g/dL RDW (11.5-14.5) % Plt Count (130-400) K/uL Sodium (132-148) mmol/l Potassium (3.6-5.0) MMOL/L Chloride (98-107) mmol/L Carbon Dioxide (22-30) mmol/L Anion Gap (10-20) BUN (9-20) mg/dl Creatinine (0.8-1.5) mg/dl Est GFR ( Amer) Est GFR (Non-Af Amer) POC Glucose (mg/dL) 244 H (65-110) mg/dL Random Glucose (75-110) mg/dL Calcium (8.4-10.2) mg/dL Phosphorus (2.5-4.5) mg/dl Magnesium (1.6-2.3) MG/DL Total Bilirubin (0.2-1.3) mg/dl AST (17-59) U/L ALT (21-72) U/L Alkaline Phosphatase (38-126) U/L Total Protein (6.3-8.2) G/DL Albumin (3.5-5.0) g/dL Globulin (2.2-3.9) gm/dL Albumin/Globulin Ratio (1.0-2.1) Laboratory Results - last 24 hr 07/29/17 07/29/17 07/29/17 10:52 16:10 20:40 WBC RBC Hgb Hct MCV MCH MCHC RDW Plt Count Sodium Potassium Chloride Carbon Dioxide Anion Gap BUN Creatinine Est GFR ( Amer) Est GFR (Non-Af Amer) POC Glucose (mg/dL) 244 H 164 H 216 H Random Glucose Calcium Phosphorus Magnesium Total Bilirubin AST ALT Alkaline Phosphatase Total Protein Albumin Globulin Albumin/Globulin Ratio 07/30/17 07/30/17 07/30/17 04:25 04:35 04:35 WBC 3.7 L RBC 2.47 L Hgb 8.1 L Hct 25.3 L MCV 102.3 H D MCH 32.8 H MCHC 32.1 L RDW 17.1 H Plt Count 107 L D Sodium 132 Potassium 4.5 Chloride 94 L Carbon Dioxide 31 H Anion Gap 12 BUN 23 H Creatinine 0.7 L Est GFR ( Amer) > 60 Est GFR (Non-Af Amer) > 60 POC Glucose (mg/dL) 227 H Random Glucose 973 H* D Calcium 7.3 L Phosphorus 6.1 H Magnesium 2.2 Total Bilirubin 0.8 AST 36 ALT 35 Alkaline Phosphatase 64 Total Protein 4.0 L Albumin 1.5 L Globulin 2.5 Albumin/Globulin Ratio 0.6 L 07/30/17 06:30 WBC RBC Hgb Hct MCV MCH MCHC RDW Plt Count Sodium 137 Potassium 2.9 L Chloride 96 L Carbon Dioxide 33 H Anion Gap 11 BUN 24 H Creatinine 0.6 L Est GFR ( Amer) > 60 Est GFR (Non-Af Amer) > 60 POC Glucose (mg/dL) Random Glucose 116 H Calcium 6.8 L Phosphorus Magnesium Total Bilirubin AST ALT Alkaline Phosphatase Total Protein Albumin Globulin Albumin/Globulin Ratio Fingerstick Blood Sugar Results: 227 Critical Care Progress Note - Nutrition Nutrition: Nutrition Category Date Time Status NPO Diet [DIET] Diets 07/21/17 Breakfast Active Assessment/Plan (1) Pancytopenia Current Visit: No Status: Acute Comment: This morning labs revealed Stable renal function, Neutropenia Stable H/H, but Platelets trending up to 107 today No evidence of active bleed Hematology on board, suspect sepsis related Zyvox Held (2) Severe sepsis Current Visit: Yes Status: Acute Comment: Meropenem 1 gm IVPB Q8 [facility] Micafungin Sodium 100 mg IVPB DAILY [facility] Wound C/S positive for mathew (3) Atrial fibrillation Current Visit: Yes Status: Acute Priority: High Comment: HR Uncontrolled, Patient MPO OFF amiodoron infusion Continue Cardizem Drip No anticoagulants for time being due to thrombocytopenia (4) Intestinal perforation Current Visit: Yes Status: Acute Priority: High Comment: S/P Laprotomy, for perforated bowel NPO, High brown drainage from midline wound Will start parentral nutrition once central line placed, pending platelets transfusion (5) COPD (chronic obstructive pulmonary disease) Current Visit: Yes Status: Acute Comment: # HOB maintained at 30 degrees. # Encouraged use of IS #PRN Nebs (6) Acute urinary retention Current Visit: No Status: Acute Comment: Russell removed, needed Staraigh cath today 750cc of jeison urine came out (7) Hypokalemia Current Visit: Yes Status: Acute
--- NOTE | 2017-07-30 12:13 | CP.PCM.PN ---
Subjective - Date & Time of Evaluation Date of Evaluation: 07/30/17 Time of Evaluation: 10:00 - Subjective Subjective: improving slowly iv rx in progress Objective - Vital Signs/Intake and Output Vital Signs (last 24 hours): Temp Pulse Resp BP Pulse Ox 98.3 F 63 30 H 116/63 100 07/30/17 12:00 07/30/17 12:00 07/30/17 12:00 07/30/17 12:00 07/30/17 12:00 Intake and Output: 07/30/17 07/30/17 06:59 18:59 Intake Total 1080 450 Output Total 810 Balance 270 450 - Medications Medications: Current Medications Acetaminophen (Tylenol 325mg Tab) 650 mg PO Q4 PRN PRN Reason: Pain, moderate (4-7) Furosemide (Lasix) 20 mg IVP DAILY [facility] Last Admin: 07/30/17 08:55 Dose: 20 mg Meropenem 1 gm/ Sodium (Chloride) 100 mls @ 100 mls/hr IVPB Q8 [facility] PRN Reason: Protocol Last Admin: 07/30/17 08:57 Dose: 100 mls/hr Micafungin Sodium 100 mg/ (Sodium Chloride) 100 mls @ 100 mls/hr IVPB DAILY [facility] PRN Reason: Protocol Last Admin: 07/30/17 08:58 Dose: 100 mls/hr Sodium Chloride 70 meq/Potassium Phosphate 30 mmole/Magnesium Sulfate 10 meq/ Calcium Gluconate 10 meq/Amino Acids 1,051.4683 mls @ 70 mls/hr IV .Q15H2M ONE Stop: 07/30/17 23:01 Fat Emulsion Intravenous (Intralipid 20%) 250 mls @ 40 mls/hr IV .Q6H15M ONE Stop: 07/30/17 16:29 Potassium Chloride (Potassium Chloride 20 Meq/100 Ml) 100 mls @ 50 mls/hr IVPB Q2 [facility] Stop: 07/30/17 17:59 Insulin Human Lispro (Humalog) 0 units SC Q6H [facility] PRN Reason: Protocol Last Admin: 07/30/17 04:41 Dose: 2 u Metoprolol Tartrate (Lopressor) 5 mg IVP 0000,0600,1200,1800 [facility] Last Admin: 07/30/17 05:07 Dose: 5 mg Morphine Sulfate (Morphine) 8 mg IVP Q4 PRN PRN Reason: Pain, moderate (4-7) Last Admin: 07/30/17 10:16 Dose: 8 mg Mupirocin (Bactroban Ointment) 1 applic TOP BID [facility] Last Admin: 07/30/17 08:54 Dose: 1 applic Octreotide Acetate (Sandostatin) 300 mcg SC Q8@0500,1300,2100 [facility] Last Admin: 07/30/17 04:40 Dose: 300 mcg Potassium Chloride (Potassium Chloride Oral Soln) 20 meq PO BID [facility] Last Admin: 07/23/17 09:05 Dose: Not Given - Labs Labs: 07/30/17 04:35 07/30/17 06:30 PT 15.9 Seconds (9.8-13.1) H 07/22/17 05:20 INR 1.4 (0.9-1.2) H 07/22/17 05:20 APTT 39.1 Seconds (25.6-37.1) H 07/22/17 05:20 - Constitutional Appears: Cachectic - Head Exam Head Exam: NORMOCEPHALIC - Eye Exam Eye Exam: PERRL - ENT Exam ENT Exam: Mucous Membranes Dry - Neck Exam Neck Exam: absent: Lymphadenopathy - Respiratory Exam Respiratory Exam: Decreased Breath Sounds - Cardiovascular Exam Cardiovascular Exam: REGULAR RHYTHM - GI/Abdominal Exam GI & Abdominal Exam: Distended Assessment and Plan (1) Abdominal pain Status: Acute (2) COPD (chronic obstructive pulmonary disease) Status: Acute (3) Essential (primary) hypertension Status: Acute (4) Hx of atrial fibrillation, no current medication Status: Acute (5) Intestinal perforation Status: Acute (6) Perforated abdominal viscus Status: Acute (7) Sepsis Status: Acute
[2017-07-30] MEDS: Potassium Chloride 20 mEq 100 ML IVPB SCH ×3 (12:19→17:29)
--- NOTE | 2017-07-30 13:52 | CP.PCM.PN ---
Subjective - Date & Time of Evaluation Date of Evaluation: 07/30/17 Time of Evaluation: 13:49 - Subjective Subjective: Patient remains stable Has no fever platelet now at 107 Hgb is at 8, Feels better Started on NGT feeding Discussed about DNR status and patient does not want to be intubated or have chest compression in the event that the procedure is needed to be performed. Objective - Vital Signs/Intake and Output Vital Signs (last 24 hours): Temp Pulse Resp BP Pulse Ox 98.3 F 70 30 H 116/73 100 07/30/17 12:00 07/30/17 12:17 07/30/17 12:00 07/30/17 12:17 07/30/17 12:00 Intake and Output: 07/30/17 07/30/17 06:59 18:59 Intake Total 1080 750 Output Total 810 Balance 270 750 - Medications Medications: Current Medications Acetaminophen (Tylenol 325mg Tab) 650 mg PO Q4 PRN PRN Reason: Pain, moderate (4-7) Furosemide (Lasix) 20 mg IVP DAILY [facility] Last Admin: 07/30/17 08:55 Dose: 20 mg Meropenem 1 gm/ Sodium (Chloride) 100 mls @ 100 mls/hr IVPB Q8 [facility] PRN Reason: Protocol Last Admin: 07/30/17 08:57 Dose: 100 mls/hr Micafungin Sodium 100 mg/ (Sodium Chloride) 100 mls @ 100 mls/hr IVPB DAILY [facility] PRN Reason: Protocol Last Admin: 07/30/17 08:58 Dose: 100 mls/hr Sodium Chloride 70 meq/Potassium Phosphate 30 mmole/Magnesium Sulfate 10 meq/ Calcium Gluconate 10 meq/Amino Acids 1,051.4683 mls @ 70 mls/hr IV .Q15H2M ONE Stop: 07/30/17 23:01 Fat Emulsion Intravenous (Intralipid 20%) 250 mls @ 40 mls/hr IV .Q6H15M ONE Stop: 07/30/17 16:29 Last Admin: 07/30/17 12:17 Dose: Not Given Potassium Chloride (Potassium Chloride 20 Meq/100 Ml) 100 mls @ 50 mls/hr IVPB Q2 [facility] Stop: 07/30/17 17:59 Last Admin: 07/30/17 12:19 Dose: 50 mls/hr Insulin Human Lispro (Humalog) 0 units SC Q6H [facility] PRN Reason: Protocol Last Admin: 07/30/17 12:15 Dose: 2 u Metoprolol Tartrate (Lopressor) 5 mg IVP 0000,0600,1200,1800 [facility] Last Admin: 07/30/17 12:17 Dose: 5 mg Morphine Sulfate (Morphine) 8 mg IVP Q4 PRN PRN Reason: Pain, moderate (4-7) Last Admin: 07/30/17 10:16 Dose: 8 mg Mupirocin (Bactroban Ointment) 1 applic TOP BID [facility] Last Admin: 07/30/17 08:54 Dose: 1 applic Octreotide Acetate (Sandostatin) 300 mcg SC Q8@0500,1300,2100 [facility] Last Admin: 07/30/17 12:20 Dose: 300 mcg Potassium Chloride (Potassium Chloride Oral Soln) 20 meq PO BID [facility] Last Admin: 07/23/17 09:05 Dose: Not Given - Labs Labs: 07/30/17 04:35 07/30/17 06:30 PT 15.9 Seconds (9.8-13.1) H 07/22/17 05:20 INR 1.4 (0.9-1.2) H 07/22/17 05:20 APTT 39.1 Seconds (25.6-37.1) H 07/22/17 05:20 - Head Exam Head Exam: NORMAL INSPECTION - Eye Exam Eye Exam: Normal appearance - ENT Exam ENT Exam: Mucous Membranes Moist - Respiratory Exam Respiratory Exam: Clear to Ausculation Bilateral - Cardiovascular Exam Cardiovascular Exam: REGULAR RHYTHM - GI/Abdominal Exam GI & Abdominal Exam: Normal Bowel Sounds - Psychiatric Exam Psychiatric exam: Normal Mood - Skin Skin Exam: Normal Color Assessment and Plan (1) Abdominal pain Status: Acute (2) COPD (chronic obstructive pulmonary disease) Status: Acute (3) Essential (primary) hypertension Status: Acute (4) Hx of atrial fibrillation, no current medication Status: Acute (5) Intestinal perforation Status: Acute (6) Perforated abdominal viscus Status: Acute (7) Atrial fibrillation Status: Acute (8) Anemia Status: Acute (9) Thrombocytopenia Status: Acute (10) Abscess Status: Acute - Assessment and Plan (Free Text) Plan: Cont meds Cont tx Monitor Hgb Cont all meds iv antibiotics and NGT feedings Patient does not want intubation or chest compression in the event the procedure is needed to be performed. Will order DNR. discussed with Dr Garcia
--- NOTE | 2017-07-30 13:56 | CP.PCM.PN ---
Subjective - Date & Time of Evaluation Date of Evaluation: 07/30/17 Time of Evaluation: 07:00 - Subjective Subjective: Patient seen and examined. No acute events over night. Patient remains having feculent output out of surgical site incision. Review of vitals is stable. Objective - Vital Signs/Intake and Output Vital Signs (last 24 hours): Temp Pulse Resp BP Pulse Ox 98.3 F 70 30 H 116/73 100 07/30/17 12:00 07/30/17 12:17 07/30/17 12:00 07/30/17 12:17 07/30/17 12:00 Intake and Output: 07/30/17 07/30/17 06:59 18:59 Intake Total 1080 750 Output Total 810 Balance 270 750 - Medications Medications: Current Medications Acetaminophen (Tylenol 325mg Tab) 650 mg PO Q4 PRN PRN Reason: Pain, moderate (4-7) Furosemide (Lasix) 20 mg IVP DAILY [facility] Last Admin: 07/30/17 08:55 Dose: 20 mg Meropenem 1 gm/ Sodium (Chloride) 100 mls @ 100 mls/hr IVPB Q8 [facility] PRN Reason: Protocol Last Admin: 07/30/17 08:57 Dose: 100 mls/hr Micafungin Sodium 100 mg/ (Sodium Chloride) 100 mls @ 100 mls/hr IVPB DAILY [facility] PRN Reason: Protocol Last Admin: 07/30/17 08:58 Dose: 100 mls/hr Sodium Chloride 70 meq/Potassium Phosphate 30 mmole/Magnesium Sulfate 10 meq/ Calcium Gluconate 10 meq/Amino Acids 1,051.4683 mls @ 70 mls/hr IV .Q15H2M ONE Stop: 07/30/17 23:01 Fat Emulsion Intravenous (Intralipid 20%) 250 mls @ 40 mls/hr IV .Q6H15M ONE Stop: 07/30/17 16:29 Last Admin: 07/30/17 12:17 Dose: Not Given Potassium Chloride (Potassium Chloride 20 Meq/100 Ml) 100 mls @ 50 mls/hr IVPB Q2 [facility] Stop: 07/30/17 17:59 Last Admin: 07/30/17 12:19 Dose: 50 mls/hr Insulin Human Lispro (Humalog) 0 units SC Q6H [facility] PRN Reason: Protocol Last Admin: 07/30/17 12:15 Dose: 2 u Metoprolol Tartrate (Lopressor) 5 mg IVP 0000,0600,1200,1800 [facility] Last Admin: 07/30/17 12:17 Dose: 5 mg Morphine Sulfate (Morphine) 8 mg IVP Q4 PRN PRN Reason: Pain, moderate (4-7) Last Admin: 07/30/17 10:16 Dose: 8 mg Mupirocin (Bactroban Ointment) 1 applic TOP BID [facility] Last Admin: 07/30/17 08:54 Dose: 1 applic Octreotide Acetate (Sandostatin) 300 mcg SC Q8@0500,1300,2100 [facility] Last Admin: 07/30/17 12:20 Dose: 300 mcg Potassium Chloride (Potassium Chloride Oral Soln) 20 meq PO BID [facility] Last Admin: 07/23/17 09:05 Dose: Not Given - Labs Labs: 07/30/17 04:35 07/30/17 06:30 PT 15.9 Seconds (9.8-13.1) H 07/22/17 05:20 INR 1.4 (0.9-1.2) H 07/22/17 05:20 APTT 39.1 Seconds (25.6-37.1) H 07/22/17 05:20 - Constitutional Appears: No Acute Distress - Head Exam Head Exam: NORMOCEPHALIC - Eye Exam Eye Exam: Normal appearance - ENT Exam ENT Exam: Mucous Membranes Moist - Respiratory Exam Respiratory Exam: NORMAL BREATHING PATTERN - Cardiovascular Exam Cardiovascular Exam: +S1, +S2 - GI/Abdominal Exam GI & Abdominal Exam: Distended, Tenderness Additional comments: feculent output from surgical incision site - Neurological Exam Neurological Exam: Alert, Awake, Oriented x3 - Psychiatric Exam Psychiatric exam: Normal Mood - Skin Skin Exam: Erythema, Warm Assessment and Plan - Assessment and Plan (Free Text) Assessment: 72M s/p ex-lap for perforated viscous with Small bowel resection with anastomosis POD#22, with post-op leak Plan: - Begin trickle feeds - continue TPN - Patient has poor nutritional status, albumin 1.5 - Regular wound care, dressing changes - Further recommendations as per Dr. Zaynab Escoto PGY2
--- NOTE | 2017-07-30 19:59 | CP.PCM.PN ---
Subjective - Date & Time of Evaluation Date of Evaluation: 07/30/17 Time of Evaluation: 19:00 - Subjective Subjective: Has abdominal pain. Objective - Vital Signs/Intake and Output Vital Signs (last 24 hours): Temp Pulse Resp BP Pulse Ox 98.1 F 71 19 116/68 100 07/30/17 19:28 07/30/17 19:28 07/30/17 19:28 07/30/17 19:28 07/30/17 19:28 Intake and Output: 07/30/17 07/31/17 18:59 06:59 Intake Total 0 Output Total 2009 Balance -300 - Medications Medications: Current Medications Acetaminophen (Tylenol 325mg Tab) 650 mg PO Q4 PRN PRN Reason: Pain, moderate (4-7) Furosemide (Lasix) 20 mg IVP DAILY [facility] Last Admin: 07/30/17 08:55 Dose: 20 mg Meropenem 1 gm/ Sodium (Chloride) 100 mls @ 100 mls/hr IVPB Q8 [facility] PRN Reason: Protocol Last Admin: 07/30/17 17:28 Dose: 100 mls/hr Micafungin Sodium 100 mg/ (Sodium Chloride) 100 mls @ 100 mls/hr IVPB DAILY [facility] PRN Reason: Protocol Last Admin: 07/30/17 08:58 Dose: 100 mls/hr Sodium Chloride 70 meq/Potassium Phosphate 30 mmole/Magnesium Sulfate 10 meq/ Calcium Gluconate 10 meq/Multivitamins/Vitamin C 10 ml/Chromium/Copper/Manganese /Zinc 3 ml/ Insulin Human Regular 4 units/ Amino Acids 1,064.5083 mls @ 70 mls/ hr IV .[id number] ONE Stop: 07/31/17 06:42 Sodium Chloride 70 meq/Potassium Phosphate 30 mmole/Magnesium Sulfate 10 meq/ Calcium Gluconate 10 meq/Insulin Human Regular 2 units/Amino Acids 1,051.4883 mls @ 70 mls/hr IV .Q15H2M ONE Stop: 07/31/17 21:46 Insulin Human Lispro (Humalog) 0 units SC Q6H [facility] PRN Reason: Protocol Last Admin: 07/30/17 17:26 Dose: 2 u Metoprolol Tartrate (Lopressor) 5 mg IVP 0000,0600,1200,1800 [facility] Last Admin: 07/30/17 12:17 Dose: 5 mg Morphine Sulfate (Morphine) 8 mg IVP Q4 PRN PRN Reason: Pain, moderate (4-7) Last Admin: 07/30/17 19:34 Dose: 8 mg Mupirocin (Bactroban Ointment) 1 applic TOP BID [facility] Last Admin: 07/30/17 17:26 Dose: 1 applic Octreotide Acetate (Sandostatin) 300 mcg SC Q8@0500,1300,2100 [facility] Last Admin: 07/30/17 12:20 Dose: 300 mcg Potassium Chloride (Potassium Chloride Oral Soln) 20 meq PO BID [facility] Last Admin: 07/23/17 09:05 Dose: Not Given - Labs Labs: 07/30/17 04:35 07/30/17 06:30 PT 15.9 Seconds (9.8-13.1) H 07/22/17 05:20 INR 1.4 (0.9-1.2) H 07/22/17 05:20 APTT 39.1 Seconds (25.6-37.1) H 07/22/17 05:20 - Head Exam Head Exam: ATRAUMATIC - Eye Exam Eye Exam: Normal appearance - ENT Exam ENT Exam: Mucous Membranes Dry - Respiratory Exam Respiratory Exam: NORMAL BREATHING PATTERN - Cardiovascular Exam Cardiovascular Exam: +S1, +S2 - GI/Abdominal Exam GI & Abdominal Exam: Normal Bowel Sounds Assessment and Plan (1) Pancytopenia Assessment & Plan: improved plt count suspect sepsis related polypharmacy ? drug induced monitoring fibrinogen to determine evolution into DIC anemia of chronic disease transfusion support PRN Status: Acute
[2017-07-30 21:10] LABS: BLOOD UREA NITROGEN 24 mg/dl (9-20); CALCIUM 6.9 mg/dL (8.4-10.2); GFR AFRICAN-AMERICAN > 60; GFR NON-AFRICAN AMERICAN > 60
[2017-07-31] MEDS: Meropenem 1 GM in Sodium Chloride 0.9% 100 ML IVPB SCH ×3 (00:15→16:19)
[2017-07-31] MEDS: Morphine 4 MG/ML VIAL IVP PRN ×5 (01:31→23:54)
[2017-07-31] MEDS: Insulin Lispro (humaLOG) 100 Units/ml Inj SC SCH ×4 (04:56→22:08)
[2017-07-31] MEDS: Metoprolol 1 mg/ml Inj IVP SCH ×2 (05:04→11:20)
--- NOTE | 2017-07-31 05:37 | PN ---
CRITICAL CARE PROGRESS NOTE DATE: 07/09/2017 TIME SPENT: 40 minutes. This note is being re-dictated as note is not found in the [facility]. The patient is seen and evaluated at the bedside. Past medical, surgical, and social history reviewed. SUBJECTIVE: A 72-year-old male with hypertension, chronic obstructive pulmonary disease, chronic atrial fibrillation, deep venous thrombosis, status post IVC filter in the past, chronic back and hip pain, admitted with acute abdomen secondary to jejunal perforation, status post exploratory laparotomy, primary end-to-end anastomosis, and RAMIN drains x2 on postop day 1. Overnight, on Levophed, Cardizem drip, fentanyl drip, IV fluid with Ringer's lactate at 200 mL/hour plus D5W with sodium bicarbonate. This morning, the patient is alert and awake, but still under the effects of sedation. PHYSICAL EXAMINATION: VITAL SIGNS. T-max 98.3, heart rate 111 to 125 and irregular, blood pressure 93/63 with mean arterial pressure of 73, remains intubated on mechanical ventilation, AC mode. Intake 9204 and output 1722, positive balance 7482. Weight 150 pounds. HEAD, EYES, EARS, NOSE AND THROAT: Pupils are reactive. Conjunctivae pale. Sclerae anicteric. Endotracheal tube in place. CHEST: Bilateral breath sounds. Diminished in intensity. Clear to auscultation anteriorly and laterally. HEART: Rhythm irregular. No audible murmur. Telemetry, atrial fibrillation. ABDOMEN: Bowel sounds diminished, mildly distended. Abdominal binder in place. RAMIN x2 with moderate drainage. EXTREMITIES: Trace edema, chronic scar with violaceous raised lesions on the right leg. No palpable cord. DP palpable. NEUROLOGIC: Alert, but lethargic. Moves all four extremities. CURRENT MEDICATIONS: Reviewed. LABORATORY DATA: WBC 4.1, hemoglobin 11.3, hematocrit 32.3, platelet count 152, neutrophils 86, lymphocytes 11.7, and monocytes of 1.8. PT 12.7, INR 1.1, and PTT 31. ABG; pH of 7.31, pCO2 of 31, pO2 of 96, saturation 97.4 on AC 20, 500, 50% with PEEP of 5. SMA-7; sodium 133, potassium 4.1, chloride 103, CO2 of 16, blood urea nitrogen 29, creatinine 1.4, lactic acid 3.6, calcium 5.9, phosphorus 5.4, magnesium 1.2, total bilirubin 0.5, AST 84, and ALT 60. Alkaline phosphatase 45, troponin 0.0350, total protein 4, albumin 1.7, and globulin 2.4. Chest x-ray: Endotracheal tube in place, scarring and fibrosis right lung apex and upper lobe with throughout pleural thickening, right apex left basilar atelectasis or right residual infiltrate, bilateral small effusion. IMPRESSION AND PLAN: 1. Status post exploratory laparotomy, repair of jejunal perforation, resection of the small bowel with peritonitis, related sepsis, hypertension, on Levophed, being weaned off for mean arterial pressure 65 and above and on IV fluid, remains intubated postoperatively, waking still with some lethargic, and unable to wean off the ventilator today. Continue to monitor wakefulness and consider extubation as tolerated. 2. Neurology: Remains alert, awake, and can follow simple commands, but with superimposed septic metabolic encephalopathy. 3. Pulmonary: Status remains intubated postoperatively, also history of chronic obstructive pulmonary disease, on bronchodilator every 6 hours, bibasilar atelectasis and/or effusion, scarring of the right apex. 4. Gastrointestinal: Mild elevation of AST possibly secondary to cholestasis, continue to monitor. Continue gastrointestinal prophylaxis. 5. Renal. BUN and creatinine are stable, currently creatinine 1.4. Continue IV hydration. Supplement magnesium and phosphorus. 6. Endocrine. Maintain blood sugar less than 180. Accu-Chek with regular insulin coverage. 7. Hematology. Anemia of chronic disease. No active gastrointestinal bleeding. Continue to monitor hemoglobin, support as needed, and maintain a hemoglobin close to 10. 8. Best practices; keep the head of bed 40 degrees up, Russell in place for adequate urine output and to prevent sacral swelling and breakdown. 9. Incentive spirometry to prevent postoperative atelectasis. Chest PT every shift. She had wean off Levophed as tolerated. Appreciate gastrointestinal followup. Consider infectious disease evaluation to broaden spectrum of antibiotics. Roney Branch MD
[2017-07-31 05:42] LABS: HEMOGLOBIN 9.6 g/dL (12.0-18.0); MEAN CORPUSCULAR HEMOGLOBIN 32.3 pg (27.0-31.0); MEAN CORPUSCULAR HGB CONC 33.3 g/dL (33.0-37.0); RBC 2.97 Mil/uL (4.40-5.90); RED CELL DISTRIBUTION WIDTH 15.6 % (11.5-14.5)
[2017-07-31 05:54] LABS: ALB/GLOB RATIO 0.6 (1.0-2.1); ALBUMIN 1.7 g/dL (3.5-5.0); ALT/SGPT 44 U/L (21-72); AST/SGOT 39 U/L (17-59); BLOOD UREA NITROGEN 25 mg/dl (9-20); GFR AFRICAN-AMERICAN > 60; GFR NON-AFRICAN AMERICAN > 60
[2017-07-31] MEDS ORDERED: [UNRECOGNIZED DRUG - OTHER] IV ONE ×2 (06:45→13:30)
[2017-07-31] MEDS ORDERED: MAGNESIUM SULFATE IV ONE ×2 (06:45→13:30)
[2017-07-31] MEDS ORDERED: SODIUM CHLORIDE IV ONE ×2 (06:45→13:30)
[2017-07-31] MEDS ORDERED: POTASSIUM PHOSPHATE IV ONE ×2 (06:45→13:30)
--- NOTE | 2017-07-31 07:52 | CP.PCM.PN ---
<Antonio Soares - Last Filed: 07/31/17 08:44> Subjective - Date & Time of Evaluation Date of Evaluation: 07/31/17 Time of Evaluation: 07:20 - Subjective Subjective: General Surgery Note for Dr. Worthy Patient seen and examined. No acute events overnight. Patient continues to complain of abdominal pain. He is also having feculent output out of surgical site incision. Patient is receivng TPN and tube feeds. Vitals are stable. Objective - Vital Signs/Intake and Output Vital Signs (last 24 hours): Temp Pulse Resp BP Pulse Ox 98.2 F 65 16 117/67 100 07/31/17 04:00 07/31/17 06:00 07/31/17 06:00 07/31/17 06:00 07/31/17 06:00 Intake and Output: 07/31/17 07/31/17 06:59 18:59 Intake Total 810 Output Total 1410 Balance -600 - Medications Medications: Current Medications Acetaminophen (Tylenol 325mg Tab) 650 mg PO Q4 PRN PRN Reason: Pain, moderate (4-7) Furosemide (Lasix) 20 mg IVP DAILY [facility] Last Admin: 07/30/17 08:55 Dose: 20 mg Meropenem 1 gm/ Sodium (Chloride) 100 mls @ 100 mls/hr IVPB Q8 [facility] PRN Reason: Protocol Last Admin: 07/31/17 00:15 Dose: 100 mls/hr Micafungin Sodium 100 mg/ (Sodium Chloride) 100 mls @ 100 mls/hr IVPB DAILY [facility] PRN Reason: Protocol Last Admin: 07/30/17 08:58 Dose: 100 mls/hr Sodium Chloride 70 meq/Potassium Phosphate 30 mmole/Magnesium Sulfate 10 meq/ Calcium Gluconate 10 meq/Insulin Human Regular 2 units/Amino Acids 1,051.4883 mls @ 70 mls/hr IV .Q15H2M ONE Stop: 07/31/17 21:46 Last Admin: 07/31/17 04:58 Dose: 70 mls/hr Insulin Human Lispro (Humalog) 0 units SC Q6H [facility] PRN Reason: Protocol Last Admin: 07/31/17 04:56 Dose: 2 units Metoprolol Tartrate (Lopressor) 5 mg IVP 0000,0600,1200,1800 [facility] Last Admin: 07/31/17 05:04 Dose: 5 mg Morphine Sulfate (Morphine) 8 mg IVP Q4 PRN PRN Reason: Pain, moderate (4-7) Last Admin: 07/31/17 01:31 Dose: 8 mg Mupirocin (Bactroban Ointment) 1 applic TOP BID [facility] Last Admin: 07/30/17 17:26 Dose: 1 applic Octreotide Acetate (Sandostatin) 300 mcg SC Q8@0500,1300,2100 [facility] Last Admin: 07/31/17 04:33 Dose: 300 mcg Potassium Chloride (Potassium Chloride Oral Soln) 20 meq PO BID [facility] Last Admin: 07/23/17 09:05 Dose: Not Given - Labs Labs: 07/31/17 04:30 07/31/17 04:30 PT 15.9 Seconds (9.8-13.1) H 07/22/17 05:20 INR 1.4 (0.9-1.2) H 07/22/17 05:20 APTT 39.1 Seconds (25.6-37.1) H 07/22/17 05:20 - Constitutional Appears: No Acute Distress - Head Exam Head Exam: ATRAUMATIC, NORMOCEPHALIC - Eye Exam Eye Exam: Normal appearance - Respiratory Exam Respiratory Exam: NORMAL BREATHING PATTERN - Cardiovascular Exam Cardiovascular Exam: REGULAR RHYTHM - GI/Abdominal Exam GI & Abdominal Exam: Soft, Tenderness. absent: Distended, Guarding, Rigid, Rebound Additional comments: feculent output from surgical incision site - Extremities Exam Extremities Exam: Normal Capillary Refill - Neurological Exam Neurological Exam: Alert, Awake - Psychiatric Exam Psychiatric exam: Flat Affect - Skin Skin Exam: Dry, Warm Assessment and Plan - Assessment and Plan (Free Text) Plan: 72M s/p ex-lap for perforated viscous with Small bowel resection with anastomosis POD#23, with post-op leak and EC fistula - Trickle feeds at 10cc/hr - continue TPN - Regular wound care, dressing changes - Further recommendations as per Dr. Zaynab Soares PGY1 <Mook Worthy - Last Filed: 07/31/17 22:17> Objective - Vital Signs/Intake and Output Vital Signs (last 24 hours): Temp Pulse Resp BP Pulse Ox 98.7 F 75 14 103/63 100 07/31/17 21:04 07/31/17 21:04 07/31/17 21:04 07/31/17 21:04 07/31/17 21:04 Intake and Output: 07/31/17 08/01/17 18:59 06:59 Intake Total 1260 Output Total 2600 Balance -1340 - Medications Medications: Current Medications Acetaminophen (Tylenol 325mg Tab) 650 mg PO Q4 PRN PRN Reason: Pain, moderate (4-7) Furosemide (Lasix) 20 mg IVP DAILY [facility] Last Admin: 07/31/17 09:00 Dose: 20 mg Meropenem 1 gm/ Sodium (Chloride) 100 mls @ 100 mls/hr IVPB Q8 [facility] PRN Reason: Protocol Last Admin: 07/31/17 16:19 Dose: 100 mls/hr Micafungin Sodium 100 mg/ (Sodium Chloride) 100 mls @ 100 mls/hr IVPB DAILY [facility] PRN Reason: Protocol Last Admin: 07/31/17 09:01 Dose: 100 mls/hr Sodium Chloride 70 meq/Potassium Phosphate 30 mmole/Magnesium Sulfate 10 meq/ Calcium Gluconate 10 meq/Multivitamins/Vitamin C 10 ml/Chromium/Copper/Manganese /Zinc 3 ml/ Insulin Human Regular 4 units/ Amino Acids 1,064.5083 mls @ 70 mls/ hr IV .[id number] ONE Stop: 08/01/17 04:42 Sodium Chloride 70 meq/Potassium Phosphate 30 mmole/Magnesium Sulfate 10 meq/ Calcium Gluconate 10 meq/Insulin Human Regular 2 units/Amino Acids 1,051.4883 mls @ 70 mls/hr IV .Q15H2M ONE Stop: 08/01/17 19:31 Insulin Human Lispro (Humalog) 0 units SC Q6H [facility] PRN Reason: Protocol Last Admin: 07/31/17 22:08 Dose: Not Given Metoprolol Tartrate (Lopressor) 50 mg PO Q12 [facility] Last Admin: 07/31/17 21:04 Dose: 50 mg Morphine Sulfate (Morphine) 8 mg IVP Q4 PRN PRN Reason: Pain, moderate (4-7) Last Admin: 07/31/17 19:50 Dose: 8 mg Mupirocin (Bactroban Ointment) 1 applic TOP BID [facility] Last Admin: 07/31/17 16:18 Dose: 1 applic Octreotide Acetate (Sandostatin) 300 mcg SC Q8@0500,1300,2100 [facility] Last Admin: 07/31/17 21:04 Dose: 300 mcg Potassium Chloride (Potassium Chloride Oral Soln) 20 meq PO BID [facility] Last Admin: 07/23/17 09:05 Dose: Not Given - Labs Labs: 07/31/17 04:30 07/31/17 04:30 PT 15.9 Seconds (9.8-13.1) H 07/22/17 05:20 INR 1.4 (0.9-1.2) H 07/22/17 05:20 APTT 39.1 Seconds (25.6-37.1) H 07/22/17 05:20 Attending/Attestation - Attestation I have personally seen and examined this patient.: Yes I have fully participated in the care of the patient.: Yes I have reviewed all pertinent clinical information, including history, physical exam and plan: Yes Notes (Text): Pt was seen and examined at bedside Agree with above note and assessment Pt is improving clinically Fistula is low output Pt is tolerating tube feeds at 10 ml/hr c.w current mx Plan d.w pt and ICT attenging in detail Risk and benefit explained in detail.
[2017-07-31] MEDS: Micafungin 100 MG in Sodium Chloride 0.9% 100 ML IVPB SCH (09:01)
--- NOTE | 2017-07-31 16:09 | PN ---
DATE: 07/31/2017 CRITICAL CARE PROGRESS NOTE LOCATION: The patient is in ICU, bed number 425. TIME SPENT: 25 minutes. IDENTIFICATION DATA: The patient is seen and evaluated at the bed side. Past medical, surgical and social history reviewed. HISTORY OF PRESENT ILLNESS: A 72-year-old male, postoperative day number 23, status post exploratory laparotomy, primary end-to-end anastomosis and colostomy for perforated jejunum, history of hypertension, chronic obstructive pulmonary disease, chronic atrial fibrillation, deep venous thrombosis status post IVC filter. Over night, remained normotensive and afebrile on TPN. He is complaining of pain in the abdomen noted to have fecal and drainage through the incision site,ostomy bag in place to prevent soiling of the skin. PHYSICAL EXAMINATION: GENERAL: He is alert and awake, follows commands appropriate. VITAL SIGNS: Temperature is 98.4, heart rate of 64, blood pressure of 106/56, mean arterial pressure of 72, respiratory rate of 18, saturating of 100% on oxygen 2 liters nasal cannula. INTAKE AND OUTPUT:: Intake of 2520 and output of 3420, negative balance of 900. HEENT: Examination of head, eyes, ears, nose and throat: Pupils are reactive. Conjunctivae are pale. Sclerae are white. NECK: Supple. Trachea is central. CHEST: Bilateral breath sounds clear to auscultation. Diminished in intensity. HEART: Rhythm irregular. No audible murmur. ABDOMEN: Bowel sounds diminished, mild distention. RAMIN drains removed. Colostomy is in place. Purulent drainage through the incision site. CURRENT MEDICATIONS: Include Tylenol 650 mg q. 4 hours. p.r.n., Lasix 20 mg IV daily, Accu-Chek with regular insulin coverage, meropenem 1 gram IV q. 8 hours. Lopressor 50 mg q. 12 hours, micafungin 100 mg IV daily, morphine sulfate 8 mg IV q. 4 hours. p.r.n. for pain, Bactroban ointment one application topically twice daily for 5 days, Sandostatin 300 mcg subcutaneous q. 8 hours., and potassium chloride 20 mEq b.i.d. LABORATORY DATA: WBC of 4, hemoglobin of 9.6, hematocrit of 28.8, and platelet count of 139. PT of 15.9, INR of 1.4, and PTT of 29.1. SMA-7: Sodium of 135, potassium of 3.6, chloride of 96, CO2 of 32, blood urea nitrogen of 25, creatinine of 0.5, and glucose of 140. Calcium of 7, phosphorus of 2.7, magnesium of 1.8, AST of 39, ALT of 44, alkaline phosphatase of 103, total protein of 4.8, and albumin of 1.7. Vancomycin trough level of 14.5 on 07/11/2017. Hepatitis surface antigen nonreactive, surface antibody positive. Microbiology: Wound culture positive for Bessy albicans. Urine culture; no growth. Repeat nasal smear MRSA negative. IMPRESSION AND PLAN: 1. Gastrointestinal: Status post exploratory laparotomy, repair of jejunal perforation, resection of the small bowel and primary end-to-end anastomosis. 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 Ostomy bag in place to prevent further swelling of the skin. The patient started on trickle feed as per Surgery. Continue total parenteral nutrition, increase the feeding as tolerated. Monitor for further closure of the fistula. Improve nutritional status. 2. Neurology: Remains alert and awake, follows commands appropriate improving septic metabolic encephalopathy. 3. Pulmonary: Status post intubation postoperatively stable on oxygen 2 liters nasal cannula with adequate saturation. History of chronic obstructive pulmonary disease, on bronchodilator with DuoNeb q. 6 hours., bibasilar atelectasis and/or effusion, scarring of the right apex, bibasilar atelectasis and effusion. 4. Renal: BUN and creatinine are stable. 5. Endocrine: Maintain blood sugar less than 180 mg. Continue Accu-Chek with regular insulin coverage him for better healing of the wound. 6. Hematology: Anemia of chronic disease. No active gastrointestinal bleeding noted. 7. Keep head of bed 40 degrees and Russell in place for adequate urine output and to prevent sacral soiling areas. Continue incentive spirometry and out of bed to chair as tolerated. Occupational therapy and physical therapy. May be transferred to regular floor for a continue care and follow up enterocutaneous fistula. Roney Branch MD [facility]PITALWilfredo
--- NOTE | 2017-07-31 18:12 | CP.PCM.PN ---
Subjective - Date & Time of Evaluation Date of Evaluation: 07/31/17 Time of Evaluation: 17:00 - Subjective Subjective: Has abdominal pain. Objective - Vital Signs/Intake and Output Vital Signs (last 24 hours): Temp Pulse Resp BP Pulse Ox 98.7 F 76 24 102/59 L 100 07/31/17 16:00 07/31/17 16:00 07/31/17 16:00 07/31/17 16:00 07/31/17 16:00 Intake and Output: 07/31/17 07/31/17 06:59 18:59 Intake Total 810 1260 Output Total 1410 1000 Balance -600 260 - Medications Medications: Current Medications Acetaminophen (Tylenol 325mg Tab) 650 mg PO Q4 PRN PRN Reason: Pain, moderate (4-7) Furosemide (Lasix) 20 mg IVP DAILY [facility] Last Admin: 07/31/17 09:00 Dose: 20 mg Meropenem 1 gm/ Sodium (Chloride) 100 mls @ 100 mls/hr IVPB Q8 [facility] PRN Reason: Protocol Last Admin: 07/31/17 16:19 Dose: 100 mls/hr Micafungin Sodium 100 mg/ (Sodium Chloride) 100 mls @ 100 mls/hr IVPB DAILY [facility] PRN Reason: Protocol Last Admin: 07/31/17 09:01 Dose: 100 mls/hr Sodium Chloride 70 meq/Potassium Phosphate 30 mmole/Magnesium Sulfate 10 meq/ Calcium Gluconate 10 meq/Insulin Human Regular 2 units/Amino Acids 1,051.4883 mls @ 70 mls/hr IV .Q15H2M ONE Stop: 07/31/17 21:46 Last Admin: 07/31/17 04:58 Dose: 70 mls/hr Sodium Chloride 70 meq/Potassium Phosphate 30 mmole/Magnesium Sulfate 10 meq/ Calcium Gluconate 10 meq/Multivitamins/Vitamin C 10 ml/Chromium/Copper/Manganese /Zinc 3 ml/ Insulin Human Regular 4 units/ Amino Acids 1,064.5083 mls @ 70 mls/ hr IV .[id number] ONE Stop: 08/01/17 04:42 Sodium Chloride 70 meq/Potassium Phosphate 30 mmole/Magnesium Sulfate 10 meq/ Calcium Gluconate 10 meq/Insulin Human Regular 2 units/Amino Acids 1,051.4883 mls @ 70 mls/hr IV .Q15H2M ONE Stop: 08/01/17 19:31 Insulin Human Lispro (Humalog) 0 units SC Q6H [facility] PRN Reason: Protocol Last Admin: 07/31/17 17:04 Dose: 2 units Metoprolol Tartrate (Lopressor) 50 mg PO Q12 [facility] Morphine Sulfate (Morphine) 8 mg IVP Q4 PRN PRN Reason: Pain, moderate (4-7) Last Admin: 07/31/17 14:53 Dose: 8 mg Mupirocin (Bactroban Ointment) 1 applic TOP BID [facility] Last Admin: 07/31/17 16:18 Dose: 1 applic Octreotide Acetate (Sandostatin) 300 mcg SC Q8@0500,1300,2100 [facility] Last Admin: 07/31/17 11:59 Dose: 300 mcg Potassium Chloride (Potassium Chloride Oral Soln) 20 meq PO BID [facility] Last Admin: 07/23/17 09:05 Dose: Not Given - Labs Labs: 07/31/17 04:30 07/31/17 04:30 PT 15.9 Seconds (9.8-13.1) H 07/22/17 05:20 INR 1.4 (0.9-1.2) H 07/22/17 05:20 APTT 39.1 Seconds (25.6-37.1) H 07/22/17 05:20 Assessment and Plan (1) Pancytopenia Assessment & Plan: improved plt count suspect sepsis related polypharmacy ? drug induced monitoring fibrinogen to determine evolution into DIC anemia of chronic disease transfusion support PRN Status: Acute
[2017-08-01] MEDS ORDERED: [UNRECOGNIZED DRUG - OTHER] IV ONE (04:30)
[2017-08-01] MEDS ORDERED: SODIUM CHLORIDE IV ONE (04:30)
[2017-08-01] MEDS ORDERED: MAGNESIUM SULFATE IV ONE (04:30)
[2017-08-01] MEDS ORDERED: POTASSIUM PHOSPHATE IV ONE (04:30)
[2017-08-01] MEDS: Insulin Lispro (humaLOG) 100 Units/ml Inj SC SCH ×4 (05:18→22:39)
[2017-08-01] MEDS: Morphine 4 MG/ML VIAL IVP PRN ×6 (06:30→23:03)
[2017-08-01 09:00] LABS: HEMOGLOBIN 9.2 g/dL (12.0-18.0); MEAN CELL VOLUME 96.5 fl (80.0-94.0); MEAN CORPUSCULAR HEMOGLOBIN 33.1 pg (27.0-31.0); MEAN CORPUSCULAR HGB CONC 34.3 g/dL (33.0-37.0); RBC 2.78 Mil/uL (4.40-5.90); RED CELL DISTRIBUTION WIDTH 15.7 % (11.5-14.5); WHITE BLOOD COUNT 3.9 K/uL (4.8-10.8)
[2017-08-01] MEDS: Micafungin 100 MG in Sodium Chloride 0.9% 100 ML IVPB SCH (09:02)
[2017-08-01] MEDS: Meropenem 1 GM in Sodium Chloride 0.9% 100 ML IVPB SCH ×3 (09:02→16:24)
[2017-08-01 09:29] LABS: ALB/GLOB RATIO 0.6 (1.0-2.1); ALBUMIN 1.8 g/dL (3.5-5.0); ALT/SGPT 35 U/L (21-72); AST/SGOT 36 U/L (17-59); BLOOD UREA NITROGEN 24 mg/dl (9-20); CALCIUM 7.1 mg/dL (8.4-10.2); GFR AFRICAN-AMERICAN > 60; GFR NON-AFRICAN AMERICAN > 60
--- NOTE | 2017-08-01 12:26 | CP.PCM.PN ---
Subjective - Date & Time of Evaluation Date of Evaluation: 08/01/17 Time of Evaluation: 12:24 - Subjective Subjective: SURGERY NOTE FOR DR. BERKOWITZ covering DR. ODOM 72M seen and examined at bedside. No acute events overnight, moved out of ICU. Patient continues to complain of pain, denies nausea/vomiting. Wound care managing draining incision site. Objective - Vital Signs/Intake and Output Vital Signs (last 24 hours): Temp Pulse Resp BP Pulse Ox 98.1 F 86 20 130/87 96 08/01/17 08:15 08/01/17 09:03 08/01/17 08:15 08/01/17 09:03 08/01/17 08:15 Intake and Output: 08/01/17 08/01/17 06:59 18:59 Output Total 0 Balance 0 - Medications Medications: Current Medications Acetaminophen (Tylenol 325mg Tab) 650 mg PO Q4 PRN PRN Reason: Pain, moderate (4-7) Furosemide (Lasix) 20 mg IVP DAILY [facility] Last Admin: 08/01/17 09:03 Dose: 20 mg Guaifenesin/Dextromethorphan (Mucinex-Dm 600-30 Mg) 1 tab PO BID [facility] Meropenem 1 gm/ Sodium (Chloride) 100 mls @ 100 mls/hr IVPB Q8 [facility] PRN Reason: Protocol Last Admin: 08/01/17 09:02 Dose: 100 mls/hr Micafungin Sodium 100 mg/ (Sodium Chloride) 100 mls @ 100 mls/hr IVPB DAILY [facility] PRN Reason: Protocol Last Admin: 08/01/17 09:02 Dose: 100 mls/hr Sodium Chloride 70 meq/Potassium Phosphate 30 mmole/Magnesium Sulfate 10 meq/ Calcium Gluconate 10 meq/Insulin Human Regular 2 units/Amino Acids 1,051.4883 mls @ 70 mls/hr IV .Q15H2M ONE Stop: 08/01/17 19:31 Last Admin: 08/01/17 11:01 Dose: 70 mls/hr Insulin Human Lispro (Humalog) 0 units SC Q6H [facility] PRN Reason: Protocol Last Admin: 08/01/17 05:18 Dose: 1 units Metoprolol Tartrate (Lopressor) 50 mg PO Q12 [facility] Last Admin: 08/01/17 09:03 Dose: 50 mg Morphine Sulfate (Morphine) 8 mg IVP Q4 PRN PRN Reason: Pain, moderate (4-7) Last Admin: 08/01/17 09:39 Dose: 8 mg Mupirocin (Bactroban Ointment) 1 applic TOP BID [facility] Last Admin: 08/01/17 09:04 Dose: 1 applic Octreotide Acetate (Sandostatin) 300 mcg SC Q8@0500,1300,2100 [facility] Last Admin: 08/01/17 05:19 Dose: 300 mcg Potassium Chloride (Potassium Chloride Oral Soln) 20 meq PO BID [facility] Last Admin: 07/23/17 09:05 Dose: Not Given - Labs Labs: 08/01/17 08:30 08/01/17 08:30 PT 15.9 Seconds (9.8-13.1) H 07/22/17 05:20 INR 1.4 (0.9-1.2) H 07/22/17 05:20 APTT 39.1 Seconds (25.6-37.1) H 07/22/17 05:20 - Constitutional Appears: Non-toxic, No Acute Distress - Respiratory Exam Respiratory Exam: Clear to Ausculation Bilateral, NORMAL BREATHING PATTERN - Cardiovascular Exam Cardiovascular Exam: REGULAR RHYTHM, +S1, +S2 - GI/Abdominal Exam GI & Abdominal Exam: Soft, Tenderness. absent: Distended, Firm, Guarding, Rigid , Rebound Additional comments: mildly incision draining stool - Neurological Exam Neurological Exam: Alert, Awake - Skin Skin Exam: Dry, Intact, Normal Color, Warm Assessment and Plan - Assessment and Plan (Free Text) Assessment: 72M s/p ex-lap for perforated viscous with Small bowel resection with anastomosis POD#23, with post-op leak and EC fistula Plan: - Trickle feeds at 20cc/hr - continue TPN - Regular wound care, dressing changes - Further recommendations as per Dr. Zaynab Miller, PGY2
--- NOTE | 2017-08-01 13:19 | CP.PCM.PN ---
Subjective - Date & Time of Evaluation Date of Evaluation: 08/01/17 Time of Evaluation: 07:00 - Subjective Subjective: 72M s/p ex-lap for perforated viscous with Small bowel resection with anastomosis POD#23, with post-op leak and EC fistula Objective - Vital Signs/Intake and Output Vital Signs (last 24 hours): Temp Pulse Resp BP Pulse Ox 98.1 F 86 20 130/87 96 08/01/17 08:15 08/01/17 09:03 08/01/17 08:15 08/01/17 09:03 08/01/17 08:15 Intake and Output: 08/01/17 08/01/17 06:59 18:59 Output Total 0 Balance 0 - Medications Medications: Current Medications Acetaminophen (Tylenol 325mg Tab) 650 mg PO Q4 PRN PRN Reason: Pain, moderate (4-7) Furosemide (Lasix) 20 mg IVP DAILY [facility] Last Admin: 08/01/17 09:03 Dose: 20 mg Guaifenesin/Dextromethorphan (Mucinex-Dm 600-30 Mg) 1 tab PO BID [facility] Meropenem 1 gm/ Sodium (Chloride) 100 mls @ 100 mls/hr IVPB Q8 [facility] PRN Reason: Protocol Last Admin: 08/01/17 09:02 Dose: 100 mls/hr Micafungin Sodium 100 mg/ (Sodium Chloride) 100 mls @ 100 mls/hr IVPB DAILY [facility] PRN Reason: Protocol Last Admin: 08/01/17 09:02 Dose: 100 mls/hr Sodium Chloride 70 meq/Potassium Phosphate 30 mmole/Magnesium Sulfate 10 meq/ Calcium Gluconate 10 meq/Insulin Human Regular 2 units/Amino Acids 1,051.4883 mls @ 70 mls/hr IV .[id number] ONE Stop: 08/01/17 19:31 Last Admin: 08/01/17 11:01 Dose: 70 mls/hr Insulin Human Lispro (Humalog) 0 units SC Q6H [facility] PRN Reason: Protocol Last Admin: 08/01/17 12:44 Dose: 1 units Metoprolol Tartrate (Lopressor) 50 mg PO Q12 [facility] Last Admin: 08/01/17 09:03 Dose: 50 mg Morphine Sulfate (Morphine) 8 mg IVP Q4 PRN PRN Reason: Pain, moderate (4-7) Last Admin: 08/01/17 12:42 Dose: 8 mg Mupirocin (Bactroban Ointment) 1 applic TOP BID [facility] Last Admin: 08/01/17 09:04 Dose: 1 applic Octreotide Acetate (Sandostatin) 300 mcg SC Q8@0500,1300,2100 [facility] Last Admin: 08/01/17 05:19 Dose: 300 mcg Potassium Chloride (Potassium Chloride Oral Soln) 20 meq PO BID [facility] Last Admin: 07/23/17 09:05 Dose: Not Given - Labs Labs: 08/01/17 08:30 08/01/17 08:30 PT 15.9 Seconds (9.8-13.1) H 07/22/17 05:20 INR 1.4 (0.9-1.2) H 07/22/17 05:20 APTT 39.1 Seconds (25.6-37.1) H 07/22/17 05:20 - Constitutional Appears: Cachectic, Chronically Ill - Head Exam Head Exam: NORMOCEPHALIC - Eye Exam Eye Exam: PERRL - ENT Exam ENT Exam: Mucous Membranes Dry - Neck Exam Neck Exam: absent: Lymphadenopathy - Respiratory Exam Respiratory Exam: Decreased Breath Sounds - Cardiovascular Exam Cardiovascular Exam: REGULAR RHYTHM - GI/Abdominal Exam GI & Abdominal Exam: Distended Additional comments: + drainage - Rectal Exam Rectal Exam: Deferred - Exam Exam: NORMAL INSPECTION - Back Exam Back Exam: absent: CVA tenderness (L), CVA tenderness (R) - Neurological Exam Neurological Exam: Altered - Psychiatric Exam Psychiatric exam: Depressed - Skin Skin Exam: Dry Assessment and Plan (1) Abdominal pain Status: Acute (2) COPD (chronic obstructive pulmonary disease) Status: Acute (3) Essential (primary) hypertension Status: Acute (4) Hx of atrial fibrillation, no current medication Status: Acute (5) Intestinal perforation Status: Acute (6) Perforated abdominal viscus Status: Acute (7) Sepsis Status: Acute - Assessment and Plan (Free Text) Assessment: 72M s/p ex-lap for perforated viscous with Small bowel resection with anastomosis POD#23, with post-op leak and EC fistula will cont iv rx for now poor prognosis to discuss with surgeon
[2017-08-01] MEDS: guaiFENesin-DM 600-30 mg ER Tab PO SCH (16:25)
--- NOTE | 2017-08-01 23:14 | CP.PCM.PN ---
Subjective - Date & Time of Evaluation Date of Evaluation: 08/01/17 Time of Evaluation: 12:05 - Subjective Subjective: Has abdominal pain. Objective - Vital Signs/Intake and Output Vital Signs (last 24 hours): Temp Pulse Resp BP Pulse Ox 98.4 F 85 20 101/65 96 08/01/17 16:33 08/01/17 22:04 08/01/17 16:33 08/01/17 22:04 08/01/17 16:33 Intake and Output: 08/01/17 08/02/17 18:59 06:59 Intake Total 1250 Output Total 2300 Balance -1050 - Medications Medications: Current Medications Acetaminophen (Tylenol 325mg Tab) 650 mg PO Q4 PRN PRN Reason: Pain, moderate (4-7) Furosemide (Lasix) 20 mg IVP DAILY [facility] Last Admin: 08/01/17 09:03 Dose: 20 mg Guaifenesin/Dextromethorphan (Mucinex-Dm 600-30 Mg) 1 tab PO BID [facility] Last Admin: 08/01/17 16:25 Dose: 1 tab Meropenem 1 gm/ Sodium (Chloride) 100 mls @ 100 mls/hr IVPB Q8 [facility] PRN Reason: Protocol Last Admin: 08/01/17 16:24 Dose: 100 mls/hr Micafungin Sodium 100 mg/ (Sodium Chloride) 100 mls @ 100 mls/hr IVPB DAILY [facility] PRN Reason: Protocol Last Admin: 08/01/17 09:02 Dose: 100 mls/hr Sodium Chloride 70 meq/Potassium Phosphate 30 mmole/Magnesium Sulfate 10 meq/ Calcium Gluconate 10 meq/Multivitamins/Vitamin C 10 ml/Chromium/Copper/Manganese /Zinc 3 ml/ Insulin Human Regular 4 units/ Amino Acids 1,064.5083 mls @ 70 mls/ hr IV .[id number] ONE Stop: 08/02/17 22:12 Insulin Human Lispro (Humalog) 0 units SC Q6H [facility] PRN Reason: Protocol Last Admin: 08/01/17 22:39 Dose: Not Given Metoprolol Tartrate (Lopressor) 50 mg PO Q12 [facility] Last Admin: 08/01/17 22:04 Dose: 50 mg Morphine Sulfate (Morphine) 8 mg IVP Q3 PRN PRN Reason: Pain, moderate (4-7) Last Admin: 08/01/17 23:03 Dose: 8 mg Mupirocin (Bactroban Ointment) 1 applic TOP BID [facility] Last Admin: 08/01/17 16:26 Dose: 1 applic Octreotide Acetate (Sandostatin) 300 mcg SC Q8@0500,1300,2100 [facility] Last Admin: 08/01/17 22:04 Dose: 300 mcg Potassium Chloride (Potassium Chloride Oral Soln) 20 meq PO BID [facility] Last Admin: 07/23/17 09:05 Dose: Not Given - Labs Labs: 08/01/17 08:30 08/01/17 08:30 PT 15.9 Seconds (9.8-13.1) H 07/22/17 05:20 INR 1.4 (0.9-1.2) H 07/22/17 05:20 APTT 39.1 Seconds (25.6-37.1) H 07/22/17 05:20 - Head Exam Head Exam: ATRAUMATIC - Eye Exam Eye Exam: Normal appearance - ENT Exam ENT Exam: Mucous Membranes Dry - Respiratory Exam Respiratory Exam: NORMAL BREATHING PATTERN - Cardiovascular Exam Cardiovascular Exam: +S1, +S2 - GI/Abdominal Exam GI & Abdominal Exam: Normal Bowel Sounds Assessment and Plan (1) Pancytopenia Assessment & Plan: improving plt count suspect sepsis related polypharmacy ? drug induced anemia of chronic disease transfusion support PRN Status: Acute
--- NOTE | 2017-08-01 23:59 | CP.PCM.PN ---
Subjective - Date & Time of Evaluation Date of Evaluation: 07/31/17 Time of Evaluation: 10:40 - Subjective Subjective: Patient is doing a lot better. Has no chest pain or SOB Has no fever. Tolerates current feeding Labs showed improvement of WBC Hgb and platelet. Objective - Vital Signs/Intake and Output Vital Signs (last 24 hours): Temp Pulse Resp BP Pulse Ox 98.2 F 85 20 100/63 95 08/01/17 23:52 08/01/17 23:52 08/01/17 23:52 08/01/17 23:52 08/01/17 23:52 Intake and Output: 08/01/17 08/02/17 18:59 06:59 Intake Total 1250 Output Total 2300 Balance -1050 - Medications Medications: Current Medications Acetaminophen (Tylenol 325mg Tab) 650 mg PO Q4 PRN PRN Reason: Pain, moderate (4-7) Furosemide (Lasix) 20 mg IVP DAILY [facility] Last Admin: 08/01/17 09:03 Dose: 20 mg Guaifenesin/Dextromethorphan (Mucinex-Dm 600-30 Mg) 1 tab PO BID [facility] Last Admin: 08/01/17 16:25 Dose: 1 tab Meropenem 1 gm/ Sodium (Chloride) 100 mls @ 100 mls/hr IVPB Q8 [facility] PRN Reason: Protocol Last Admin: 08/01/17 16:24 Dose: 100 mls/hr Micafungin Sodium 100 mg/ (Sodium Chloride) 100 mls @ 100 mls/hr IVPB DAILY [facility] PRN Reason: Protocol Last Admin: 08/01/17 09:02 Dose: 100 mls/hr Sodium Chloride 70 meq/Potassium Phosphate 30 mmole/Magnesium Sulfate 10 meq/ Calcium Gluconate 10 meq/Multivitamins/Vitamin C 10 ml/Chromium/Copper/Manganese /Zinc 3 ml/ Insulin Human Regular 4 units/ Amino Acids 1,064.5083 mls @ 70 mls/ hr IV .[id number] ONE Stop: 08/02/17 22:12 Insulin Human Lispro (Humalog) 0 units SC Q6H [facility] PRN Reason: Protocol Last Admin: 08/01/17 22:39 Dose: Not Given Metoprolol Tartrate (Lopressor) 50 mg PO Q12 [facility] Last Admin: 08/01/17 22:04 Dose: 50 mg Morphine Sulfate (Morphine) 8 mg IVP Q3 PRN PRN Reason: Pain, moderate (4-7) Last Admin: 08/01/17 23:03 Dose: 8 mg Mupirocin (Bactroban Ointment) 1 applic TOP BID [facility] Last Admin: 08/01/17 16:26 Dose: 1 applic Octreotide Acetate (Sandostatin) 300 mcg SC Q8@0500,1300,2100 [facility] Last Admin: 08/01/17 22:04 Dose: 300 mcg Potassium Chloride (Potassium Chloride Oral Soln) 20 meq PO BID [facility] Last Admin: 07/23/17 09:05 Dose: Not Given - Labs Labs: 08/01/17 08:30 08/01/17 08:30 PT 15.9 Seconds (9.8-13.1) H 07/22/17 05:20 INR 1.4 (0.9-1.2) H 07/22/17 05:20 APTT 39.1 Seconds (25.6-37.1) H 07/22/17 05:20 - Head Exam Head Exam: NORMAL INSPECTION - Eye Exam Eye Exam: Normal appearance - ENT Exam ENT Exam: Mucous Membranes Moist - Respiratory Exam Respiratory Exam: Clear to Ausculation Bilateral - Cardiovascular Exam Cardiovascular Exam: REGULAR RHYTHM - GI/Abdominal Exam GI & Abdominal Exam: Soft, Normal Bowel Sounds - Neurological Exam Neurological Exam: Awake, Oriented x3 Assessment and Plan (1) Abdominal pain Status: Acute (2) COPD (chronic obstructive pulmonary disease) Status: Acute (3) Essential (primary) hypertension Status: Acute (4) Hx of atrial fibrillation, no current medication Status: Acute (5) Intestinal perforation Status: Acute (6) Perforated abdominal viscus Status: Acute (7) Atrial fibrillation Status: Acute (8) Anemia Status: Acute (9) Thrombocytopenia Status: Acute (10) Abscess Status: Acute - Assessment and Plan (Free Text) Plan: Cont meds Con ttx Cont fluids, NGT feedings Cont meds.
--- NOTE | 2017-08-02 00:01 | CP.PCM.PN ---
Subjective - Date & Time of Evaluation Date of Evaluation: 08/01/17 Time of Evaluation: 11:00 - Subjective Subjective: Patient is much more awake and mood is a lot better. Has no fever. Has no chest pain or SOB. Noted platelet to be normal. Objective - Vital Signs/Intake and Output Vital Signs (last 24 hours): Temp Pulse Resp BP Pulse Ox 98.2 F 85 20 100/63 95 08/01/17 23:52 08/01/17 23:52 08/01/17 23:52 08/01/17 23:52 08/01/17 23:52 Intake and Output: 08/01/17 08/02/17 18:59 06:59 Intake Total 1250 Output Total 2300 Balance -1050 - Medications Medications: Current Medications Acetaminophen (Tylenol 325mg Tab) 650 mg PO Q4 PRN PRN Reason: Pain, moderate (4-7) Furosemide (Lasix) 20 mg IVP DAILY [facility] Last Admin: 08/01/17 09:03 Dose: 20 mg Guaifenesin/Dextromethorphan (Mucinex-Dm 600-30 Mg) 1 tab PO BID [facility] Last Admin: 08/01/17 16:25 Dose: 1 tab Meropenem 1 gm/ Sodium (Chloride) 100 mls @ 100 mls/hr IVPB Q8 [facility] PRN Reason: Protocol Last Admin: 08/01/17 16:24 Dose: 100 mls/hr Micafungin Sodium 100 mg/ (Sodium Chloride) 100 mls @ 100 mls/hr IVPB DAILY [facility] PRN Reason: Protocol Last Admin: 08/01/17 09:02 Dose: 100 mls/hr Sodium Chloride 70 meq/Potassium Phosphate 30 mmole/Magnesium Sulfate 10 meq/ Calcium Gluconate 10 meq/Multivitamins/Vitamin C 10 ml/Chromium/Copper/Manganese /Zinc 3 ml/ Insulin Human Regular 4 units/ Amino Acids 1,064.5083 mls @ 70 mls/ hr IV .[id number] ONE Stop: 08/02/17 22:12 Insulin Human Lispro (Humalog) 0 units SC Q6H [facility] PRN Reason: Protocol Last Admin: 08/01/17 22:39 Dose: Not Given Metoprolol Tartrate (Lopressor) 50 mg PO Q12 [facility] Last Admin: 08/01/17 22:04 Dose: 50 mg Morphine Sulfate (Morphine) 8 mg IVP Q3 PRN PRN Reason: Pain, moderate (4-7) Last Admin: 08/01/17 23:03 Dose: 8 mg Mupirocin (Bactroban Ointment) 1 applic TOP BID [facility] Last Admin: 08/01/17 16:26 Dose: 1 applic Octreotide Acetate (Sandostatin) 300 mcg SC Q8@0500,1300,2100 [facility] Last Admin: 08/01/17 22:04 Dose: 300 mcg Potassium Chloride (Potassium Chloride Oral Soln) 20 meq PO BID [facility] Last Admin: 07/23/17 09:05 Dose: Not Given - Labs Labs: 08/01/17 08:30 08/01/17 08:30 PT 15.9 Seconds (9.8-13.1) H 07/22/17 05:20 INR 1.4 (0.9-1.2) H 07/22/17 05:20 APTT 39.1 Seconds (25.6-37.1) H 07/22/17 05:20 - Head Exam Head Exam: NORMAL INSPECTION - Eye Exam Eye Exam: Normal appearance - ENT Exam ENT Exam: Mucous Membranes Moist - Respiratory Exam Respiratory Exam: Clear to Ausculation Bilateral - Cardiovascular Exam Cardiovascular Exam: REGULAR RHYTHM - GI/Abdominal Exam GI & Abdominal Exam: Soft, Normal Bowel Sounds - Neurological Exam Neurological Exam: Awake, Oriented x3 - Psychiatric Exam Psychiatric exam: Normal Mood - Skin Skin Exam: Dry Assessment and Plan (1) Abdominal pain Status: Acute (2) COPD (chronic obstructive pulmonary disease) Status: Acute (3) Essential (primary) hypertension Status: Acute (4) Hx of atrial fibrillation, no current medication Status: Acute (5) Intestinal perforation Status: Acute (6) Perforated abdominal viscus Status: Acute (7) Atrial fibrillation Status: Acute (8) Anemia Status: Acute (9) Thrombocytopenia Status: Acute (10) Abscess Status: Acute - Assessment and Plan (Free Text) Plan: Cont meds Cont tx Cont PT Cont nutrition regular floor. needs subacute rehab
[2017-08-02] MEDS: Meropenem 1 GM in Sodium Chloride 0.9% 100 ML IVPB SCH ×3 (00:52→17:28)
[2017-08-02] MEDS: Morphine 4 MG/ML VIAL IVP PRN ×6 (02:13→20:26)
[2017-08-02] MEDS: MAGNESIUM SULFATE IV ONE ×2 (02:44→07:00)
[2017-08-02] MEDS: [UNRECOGNIZED DRUG - OTHER] IV ONE ×2 (02:44→07:00)
[2017-08-02] MEDS: SODIUM CHLORIDE IV ONE ×2 (02:44→07:00)
[2017-08-02] MEDS: POTASSIUM PHOSPHATE IV ONE ×2 (02:44→07:00)
[2017-08-02] MEDS: Insulin Lispro (humaLOG) 100 Units/ml Inj SC SCH ×4 (05:26→23:20)
[2017-08-02 07:45] LABS: HEMOGLOBIN 8.2 g/dL (12.0-18.0); MEAN CELL VOLUME 97.1 fl (80.0-94.0); MEAN CORPUSCULAR HEMOGLOBIN 33.1 pg (27.0-31.0); MEAN CORPUSCULAR HGB CONC 34.1 g/dL (33.0-37.0); RBC 2.47 Mil/uL (4.40-5.90); RED CELL DISTRIBUTION WIDTH 15.6 % (11.5-14.5); WHITE BLOOD COUNT 3.7 K/uL (4.8-10.8)
[2017-08-02 07:49] LABS: ALB/GLOB RATIO 0.5 (1.0-2.1); ALBUMIN 1.7 g/dL (3.5-5.0); ALT/SGPT 45 U/L (21-72); AST/SGOT 41 U/L (17-59); BLOOD UREA NITROGEN 25 mg/dl (9-20); CALCIUM 7.2 mg/dL (8.4-10.2); GFR AFRICAN-AMERICAN > 60; GFR NON-AFRICAN AMERICAN > 60
--- NOTE | 2017-08-02 08:00 | CP.PCM.PN ---
Subjective - Date & Time of Evaluation Date of Evaluation: 08/02/17 Time of Evaluation: 07:20 - Subjective Subjective: General Surgery Note for Dr. Veronica (covering for Dr. Worthy) Patient seen and examined at bedside. No acute events overnight. Patient continues to complain of pain. Incision site draining feculent material still. Denies fever/chills, nausea/vomiting. Tolerating tube feeds. Objective - Vital Signs/Intake and Output Vital Signs (last 24 hours): Temp Pulse Resp BP Pulse Ox 98.2 F 85 20 100/63 95 08/01/17 23:52 08/01/17 23:52 08/01/17 23:52 08/01/17 23:52 08/01/17 23:52 Intake and Output: 08/02/17 08/02/17 06:59 18:59 Intake Total 840 Output Total 450 Balance 390 - Medications Medications: Current Medications Acetaminophen (Tylenol 325mg Tab) 650 mg PO Q4 PRN PRN Reason: Pain, moderate (4-7) Furosemide (Lasix) 20 mg IVP DAILY [facility] Last Admin: 08/01/17 09:03 Dose: 20 mg Guaifenesin/Dextromethorphan (Mucinex-Dm 600-30 Mg) 1 tab PO BID [facility] Last Admin: 08/01/17 16:25 Dose: 1 tab Meropenem 1 gm/ Sodium (Chloride) 100 mls @ 100 mls/hr IVPB Q8 [facility] PRN Reason: Protocol Last Admin: 08/02/17 00:52 Dose: 100 mls/hr Micafungin Sodium 100 mg/ (Sodium Chloride) 100 mls @ 100 mls/hr IVPB DAILY [facility] PRN Reason: Protocol Last Admin: 08/01/17 09:02 Dose: 100 mls/hr Sodium Chloride 70 meq/Potassium Phosphate 30 mmole/Magnesium Sulfate 10 meq/ Calcium Gluconate 10 meq/Multivitamins/Vitamin C 10 ml/Chromium/Copper/Manganese /Zinc 3 ml/ Insulin Human Regular 4 units/ Amino Acids 1,064.5083 mls @ 70 mls/ hr IV .[id number] ONE Stop: 08/02/17 22:12 Last Admin: 08/02/17 07:00 Dose: Not Given Insulin Human Lispro (Humalog) 0 units SC Q6H [facility] PRN Reason: Protocol Last Admin: 08/02/17 05:26 Dose: Not Given Metoprolol Tartrate (Lopressor) 50 mg PO Q12 [facility] Last Admin: 08/01/17 22:04 Dose: 50 mg Morphine Sulfate (Morphine) 8 mg IVP Q3 PRN PRN Reason: Pain, moderate (4-7) Last Admin: 08/02/17 05:24 Dose: 8 mg Mupirocin (Bactroban Ointment) 1 applic TOP BID [facility] Last Admin: 08/01/17 16:26 Dose: 1 applic Octreotide Acetate (Sandostatin) 300 mcg SC Q8@0500,1300,2100 [facility] Last Admin: 08/02/17 05:27 Dose: 300 mcg Potassium Chloride (Potassium Chloride Oral Soln) 20 meq PO BID [facility] Last Admin: 07/23/17 09:05 Dose: Not Given - Labs Labs: 08/01/17 08:30 08/02/17 05:30 PT 15.9 Seconds (9.8-13.1) H 07/22/17 05:20 INR 1.4 (0.9-1.2) H 07/22/17 05:20 APTT 39.1 Seconds (25.6-37.1) H 07/22/17 05:20 - Constitutional Appears: No Acute Distress - ENT Exam ENT Exam: Mucous Membranes Moist - Respiratory Exam Respiratory Exam: NORMAL BREATHING PATTERN - Cardiovascular Exam Cardiovascular Exam: REGULAR RHYTHM - GI/Abdominal Exam GI & Abdominal Exam: Soft, Tenderness. absent: Distended, Firm, Guarding, Rebound Additional comments: midline incision draining feculent material with colostomy appliance covering - Neurological Exam Neurological Exam: Alert, Awake - Psychiatric Exam Psychiatric exam: Flat Affect - Skin Skin Exam: Dry, Warm Assessment and Plan - Assessment and Plan (Free Text) Plan: 72M s/p ex-lap for perforated viscous with Small bowel resection with anastomosis POD#24, with post-op leak and EC fistula - Trickle feeds at 20cc/hr - continue TPN - Wound care - Strict I's & O's - Further recommendations as per Dr. Veronica (covering for Dr. Worthy) Antonio Soares PGY1
[2017-08-02] MEDS ORDERED: Iohexol 240 (50 ml) PO ONE (09:36)
[2017-08-02] MEDS: Micafungin 100 MG in Sodium Chloride 0.9% 100 ML IVPB SCH (10:25)
[2017-08-02] MEDS: guaiFENesin-DM 600-30 mg ER Tab PO SCH ×2 (10:33→17:12)
--- NOTE | 2017-08-02 13:04 | CP.PCM.PN ---
Subjective - Date & Time of Evaluation Date of Evaluation: 08/02/17 Time of Evaluation: 12:15 - Subjective Subjective: Has some abdominal pain but feeling better overall Objective - Vital Signs/Intake and Output Vital Signs (last 24 hours): Temp Pulse Resp BP Pulse Ox 98.3 F 63 20 107/54 L 97 08/02/17 09:12 08/02/17 09:12 08/02/17 09:12 08/02/17 10:17 08/02/17 09:12 Intake and Output: 08/02/17 08/02/17 06:59 18:59 Intake Total 840 Output Total 450 Balance 390 - Medications Medications: Current Medications Acetaminophen (Tylenol 325mg Tab) 650 mg PO Q4 PRN PRN Reason: Pain, moderate (4-7) Cyanocobalamin (Vitamin B12 1000 Mcg/Ml Inj) 1,000 mcg IM DAILY [facility] Epoetin Mata (Procrit) 10,000 unit SC TTS [facility] Ferrous Sulfate (Feosol) 325 mg PO BID [facility] Furosemide (Lasix) 20 mg IVP DAILY [facility] Last Admin: 08/02/17 10:17 Dose: Not Given Guaifenesin/Dextromethorphan (Mucinex-Dm 600-30 Mg) 1 tab PO BID [facility] Last Admin: 08/02/17 10:33 Dose: 1 tab Meropenem 1 gm/ Sodium (Chloride) 100 mls @ 100 mls/hr IVPB Q8 [facility] PRN Reason: Protocol Last Admin: 08/02/17 10:33 Dose: 100 mls/hr Micafungin Sodium 100 mg/ (Sodium Chloride) 100 mls @ 100 mls/hr IVPB DAILY [facility] PRN Reason: Protocol Last Admin: 08/02/17 10:25 Dose: 100 mls/hr Sodium Chloride 70 meq/Potassium Phosphate 30 mmole/Magnesium Sulfate 10 meq/ Calcium Gluconate 10 meq/Multivitamins/Vitamin C 10 ml/Chromium/Copper/Manganese /Zinc 3 ml/ Insulin Human Regular 4 units/ Amino Acids 1,064.5083 mls @ 70 mls/ hr IV .[id number] ONE Stop: 08/02/17 22:12 Last Admin: 08/02/17 07:00 Dose: Not Given Insulin Human Lispro (Humalog) 0 units SC Q6H [facility] PRN Reason: Protocol Last Admin: 08/02/17 10:34 Dose: Not Given Metoprolol Tartrate (Lopressor) 50 mg PO Q12 [facility] Last Admin: 08/02/17 10:33 Dose: 50 mg Morphine Sulfate (Morphine) 8 mg IVP Q3 PRN PRN Reason: Pain, moderate (4-7) Last Admin: 08/02/17 12:49 Dose: 8 mg Mupirocin (Bactroban Ointment) 1 applic TOP BID [facility] Last Admin: 08/02/17 10:17 Dose: Not Given Octreotide Acetate (Sandostatin) 300 mcg SC Q8@0500,1300,2100 [facility] Last Admin: 08/02/17 05:27 Dose: 300 mcg Potassium Chloride (Potassium Chloride Oral Soln) 20 meq PO BID [facility] Last Admin: 07/23/17 09:05 Dose: Not Given - Labs Labs: 08/02/17 05:30 08/02/17 05:30 PT 15.9 Seconds (9.8-13.1) H 07/22/17 05:20 INR 1.4 (0.9-1.2) H 07/22/17 05:20 APTT 39.1 Seconds (25.6-37.1) H 07/22/17 05:20 - Head Exam Head Exam: ATRAUMATIC - Eye Exam Eye Exam: Normal appearance - ENT Exam ENT Exam: Mucous Membranes Dry - Respiratory Exam Respiratory Exam: NORMAL BREATHING PATTERN - Cardiovascular Exam Cardiovascular Exam: +S1, +S2 - GI/Abdominal Exam GI & Abdominal Exam: Normal Bowel Sounds - Extremities Exam Extremities Exam: Normal Inspection Assessment and Plan (1) Pancytopenia Assessment & Plan: improving plt count suspect sepsis related polypharmacy ? drug induced anemia of chronic disease transfusion support PRN Status: Acute
[2017-08-02] MEDS ORDERED: Sodium Chloride 0.9% 100 ML ONE (15:17)
[2017-08-02] MEDS ORDERED: Iohexol 300 100 ML IJ ONE (15:17)
--- NOTE | 2017-08-02 17:22 | CT ---
PROCEDURE: CT Abdomen and Pelvis with contrast HISTORY: EC fistula COMPARISON: . Comparison made with prior study dated 07/20/2017. TECHNIQUE: Contrast dose: 90 cc Omnipaque 300 contrast material. Radiation dose: Total exam DLP = 601.58 mGy-cm. This CT exam was performed using one or more of the following dose reduction techniques: Automated exposure control, adjustment of the mA and/or kV according to patient size, and/or use of iterative reconstruction technique.. This study is limited due to significant streak and beam hardening artifact arising from the upper extremities which have not been moved out of the field of view. Ascites also limits evaluation. FINDINGS: LOWER THORAX: There are large bilateral effusions left greater than right with mild bibasilar atelectasis left greater than right. Heart size is unchanged. LIVER: Previously noted pneumobilia is not appreciated on this study compared the prior exam. The Free intraperitoneal air likely related to recent surgery present along the seen along posterior margin anterior abdominal wall most pronounced superior subjacent to the xiphoid. There also appears to be a pericardial effusion. GALLBLADDER AND BILE DUCTS: Postoperative changes of cholecystectomy. PANCREAS: Pancreatic head is not visualized. Calcifications along the distal pancreas may be vascular however possibility of chronic sequela of pancreatitis not excluded. SPLEEN: Spleen exhibits normal size and attenuation pattern. ADRENALS: No obvious adrenal lesions however due to significant streak and beam hardening artifact and ascites ala evaluation limited KIDNEYS AND URETERS: Kidneys demonstrate relatively symmetric nephrograms. There are several low-attenuation foci scattered throughout both kidneys difficult to assess due to the aforementioned limitations though some of these foci could represent small cysts. VASCULATURE: Unremarkable. No aortic aneurysm. BOWEL: Evaluation of the bowel is limited due to large amount of ascites as well as incomplete opacification. Stomach is partially distended with oral contrast material some food debris and air. In situ NGT. . There are multiple loops of under opacified presumed proximal small bowel. Loops of distal small bowel appear opacified. No evidence acute mechanical bowel obstruction with oral contrast material extending into the cecum and ascending colon and proximal transverse colon. The mid transverse colon extends anteriorly and appears to abut the superior margin of the incision site with free air at this location which appears represent a fistulous communication with a small amount of oral contrast material apparently extravasated in and about this area. . The at distal transverse and descending colon as for possible well sigmoid and rectum are not opacified as contrast material APPENDIX: Not visualized on this study PERITONEUM: Free intraperitoneal air and a large amount of ascites as above. LYMPH NODES: Unremarkable. No enlarged lymph nodes. BLADDER: In situ Russell catheter. The urinary bladder is incompletely visualized as is the prostate gland due to significant streak and beam hardening artifact arising from bilateral total hip replacements. REPRODUCTIVE: Prostate gland poorly seen as above due to streak and beam hardening artifact arising from bilateral total hip replacements. BONES: No acute fracture. OTHER FINDINGS: None. IMPRESSION: Limited study as above. There is a fistulous communication at the mid transverse colon region located along upper mid abdomen near the xiphoid process and along the upper margin of the anterior abdominal wall incision site. Contrast material appears to have extravasated in about distal area associated with free intraperitoneal air. Large amount of abdominal and pelvic ascites. Large bilateral effusions left larger than right and bibasilar atelectasis left also larger than right. Findings discussed with surgical device sales representative plastic and reconstructive surgeon Pato approximately 5 p.m. with written down and read back verification.
--- NOTE | 2017-08-02 20:38 | CP.PCM.PN ---
Subjective - Date & Time of Evaluation Date of Evaluation: 08/02/17 Time of Evaluation: 11:00 - Subjective Subjective: patient remains stable Has no chest pain or SOB Afebrile Has better mood. Tolerates current feeding. Objective - Vital Signs/Intake and Output Vital Signs (last 24 hours): Temp Pulse Resp BP Pulse Ox 98.3 F 63 20 107/54 L 97 08/02/17 09:12 08/02/17 09:12 08/02/17 09:12 08/02/17 10:17 08/02/17 09:12 Intake and Output: 08/02/17 08/03/17 18:59 06:59 Intake Total 1280 Output Total 700 Balance 580 - Medications Medications: Current Medications Acetaminophen (Tylenol 325mg Tab) 650 mg PO Q4 PRN PRN Reason: Pain, moderate (4-7) Cyanocobalamin (Vitamin B12 1000 Mcg/Ml Inj) 1,000 mcg IM DAILY [facility] Last Admin: 08/02/17 17:25 Dose: 1,000 mcg Epoetin Mata (Procrit) 10,000 unit SC TTS [facility] Fentanyl (Duragesic) 1 patch TD Q3D [facility] PRN Reason: Protocol Last Admin: 08/02/17 14:37 Dose: 1 patch Ferrous Sulfate (Feosol) 325 mg PO BID [facility] Last Admin: 08/02/17 17:12 Dose: 325 mg Furosemide (Lasix) 20 mg IVP DAILY [facility] Last Admin: 08/02/17 10:17 Dose: Not Given Guaifenesin/Dextromethorphan (Mucinex-Dm 600-30 Mg) 1 tab PO BID [facility] Last Admin: 08/02/17 17:12 Dose: 1 tab Meropenem 1 gm/ Sodium (Chloride) 100 mls @ 100 mls/hr IVPB Q8 [facility] PRN Reason: Protocol Last Admin: 08/02/17 17:28 Dose: 100 mls/hr Micafungin Sodium 100 mg/ (Sodium Chloride) 100 mls @ 100 mls/hr IVPB DAILY [facility] PRN Reason: Protocol Last Admin: 08/02/17 10:25 Dose: 100 mls/hr Sodium Chloride 70 meq/Potassium Phosphate 30 mmole/Magnesium Sulfate 10 meq/ Calcium Gluconate 10 meq/Multivitamins/Vitamin C 10 ml/Chromium/Copper/Manganese /Zinc 3 ml/ Insulin Human Regular 4 units/ Amino Acids 1,064.5083 mls @ 70 mls/ hr IV .[id number] ONE Stop: 08/02/17 22:12 Last Admin: 08/02/17 07:00 Dose: Not Given Insulin Human Lispro (Humalog) 0 units SC Q6H [facility] PRN Reason: Protocol Last Admin: 08/02/17 17:13 Dose: 1 units Metoprolol Tartrate (Lopressor) 50 mg PO Q12 [facility] Last Admin: 08/02/17 10:33 Dose: 50 mg Morphine Sulfate (Morphine) 8 mg IVP Q3 PRN PRN Reason: Pain, moderate (4-7) Last Admin: 08/02/17 20:26 Dose: 8 mg Mupirocin (Bactroban Ointment) 1 applic TOP BID [facility] Last Admin: 08/02/17 10:17 Dose: Not Given Octreotide Acetate (Sandostatin) 300 mcg SC Q8@0500,1300,2100 [facility] Last Admin: 08/02/17 20:29 Dose: 300 mcg Potassium Chloride (Potassium Chloride Oral Soln) 20 meq PO BID [facility] Last Admin: 07/23/17 09:05 Dose: Not Given - Labs Labs: 08/02/17 05:30 08/02/17 05:30 PT 15.9 Seconds (9.8-13.1) H 07/22/17 05:20 INR 1.4 (0.9-1.2) H 07/22/17 05:20 APTT 39.1 Seconds (25.6-37.1) H 07/22/17 05:20 - Head Exam Head Exam: NORMAL INSPECTION - Eye Exam Eye Exam: Normal appearance - ENT Exam ENT Exam: Mucous Membranes Moist - Respiratory Exam Respiratory Exam: Clear to Ausculation Bilateral, NORMAL BREATHING PATTERN - Cardiovascular Exam Cardiovascular Exam: REGULAR RHYTHM - GI/Abdominal Exam GI & Abdominal Exam: Normal Bowel Sounds - Neurological Exam Neurological Exam: Awake, Oriented x3 Assessment and Plan (1) Abdominal pain Status: Acute (2) COPD (chronic obstructive pulmonary disease) Status: Acute (3) Essential (primary) hypertension Status: Acute (4) Hx of atrial fibrillation, no current medication Status: Acute (5) Intestinal perforation Status: Acute (6) Perforated abdominal viscus Status: Acute (7) Atrial fibrillation Status: Acute (8) Anemia Status: Acute (9) Thrombocytopenia Status: Acute (10) Abscess Status: Acute - Assessment and Plan (Free Text) Plan: Con tmeds Con ttx Cont PT advance diet Cont PT subacute rehab chech CBC
[2017-08-03] MEDS: Meropenem 1 GM in Sodium Chloride 0.9% 100 ML IVPB SCH ×3 (00:56→18:28)
[2017-08-03] MEDS: Morphine 4 MG/ML VIAL IVP PRN ×6 (00:56→22:57)
[2017-08-03] MEDS: Insulin Lispro (humaLOG) 100 Units/ml Inj SC SCH ×4 (04:39→22:17)
[2017-08-03 07:42] LABS: HEMOGLOBIN 7.9 g/dL (12.0-18.0); MEAN CELL VOLUME 102.8 fl (80.0-94.0); MEAN CORPUSCULAR HEMOGLOBIN 33.3 pg (27.0-31.0); MEAN CORPUSCULAR HGB CONC 32.4 g/dL (33.0-37.0); RBC 2.36 Mil/uL (4.40-5.90); RED CELL DISTRIBUTION WIDTH 16.7 % (11.5-14.5); WHITE BLOOD COUNT 3.3 K/uL (4.8-10.8)
[2017-08-03 07:47] LABS: BLOOD UREA NITROGEN 22 mg/dl (9-20); CALCIUM 7.5 mg/dL (8.4-10.2); GFR AFRICAN-AMERICAN > 60; GFR NON-AFRICAN AMERICAN > 60
--- NOTE | 2017-08-03 08:46 | CP.PCM.PN ---
Subjective - Date & Time of Evaluation Date of Evaluation: 08/03/17 Time of Evaluation: 08:44 - Subjective Subjective: Patient seen and examined. No acute events over night. Remains of trickle tube feeds and TPN. 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 Reports mild abdominal pain. Objective - Vital Signs/Intake and Output Vital Signs (last 24 hours): Temp Pulse Resp BP Pulse Ox 98.4 F 60 16 114/70 96 08/03/17 01:00 08/03/17 01:00 08/03/17 01:00 08/03/17 01:00 08/03/17 01:00 Intake and Output: 08/03/17 08/03/17 06:59 18:59 Intake Total 1130 Output Total 1000 Balance 130 - Medications Medications: Current Medications Acetaminophen (Tylenol 325mg Tab) 650 mg PO Q4 PRN PRN Reason: Pain, moderate (4-7) Cyanocobalamin (Vitamin B12 1000 Mcg/Ml Inj) 1,000 mcg IM DAILY [facility] Last Admin: 08/02/17 17:25 Dose: 1,000 mcg Epoetin Mata (Procrit) 10,000 unit SC TTS [facility] Fentanyl (Duragesic) 1 patch TD Q3D [facility] PRN Reason: Protocol Last Admin: 08/02/17 14:37 Dose: 1 patch Ferrous Sulfate (Feosol) 325 mg PO BID [facility] Last Admin: 08/02/17 17:12 Dose: 325 mg Furosemide (Lasix) 20 mg IVP DAILY [facility] Last Admin: 08/02/17 10:17 Dose: Not Given Guaifenesin/Dextromethorphan (Mucinex-Dm 600-30 Mg) 1 tab PO BID [facility] Last Admin: 08/02/17 17:12 Dose: 1 tab Heparin Sodium (Porcine) (Heparin) 5,000 units SC Q8 [facility] PRN Reason: Protocol Meropenem 1 gm/ Sodium (Chloride) 100 mls @ 100 mls/hr IVPB Q8 [facility] PRN Reason: Protocol Last Admin: 08/03/17 00:56 Dose: 100 mls/hr Micafungin Sodium 100 mg/ (Sodium Chloride) 100 mls @ 100 mls/hr IVPB DAILY [facility] PRN Reason: Protocol Last Admin: 08/02/17 10:25 Dose: 100 mls/hr Insulin Human Lispro (Humalog) 0 units SC Q6H [facility] PRN Reason: Protocol Last Admin: 08/03/17 04:39 Dose: Not Given Metoprolol Tartrate (Lopressor) 50 mg PO Q12 [facility] Last Admin: 08/02/17 20:51 Dose: 50 mg Morphine Sulfate (Morphine) 8 mg IVP Q3 PRN PRN Reason: Pain, moderate (4-7) Last Admin: 08/03/17 04:05 Dose: 8 mg Mupirocin (Bactroban Ointment) 1 applic TOP BID [facility] Last Admin: 08/02/17 10:17 Dose: Not Given Octreotide Acetate (Sandostatin) 300 mcg SC Q8@0500,1300,2100 [facility] Last Admin: 08/03/17 04:07 Dose: 300 mcg Potassium Chloride (Potassium Chloride Oral Soln) 20 meq PO BID [facility] Last Admin: 07/23/17 09:05 Dose: Not Given - Labs Labs: 08/03/17 05:30 08/03/17 05:30 PT 15.9 Seconds (9.8-13.1) H 07/22/17 05:20 INR 1.4 (0.9-1.2) H 07/22/17 05:20 APTT 39.1 Seconds (25.6-37.1) H 07/22/17 05:20 - Constitutional Appears: No Acute Distress, Other - Head Exam Head Exam: NORMOCEPHALIC - Eye Exam Eye Exam: Normal appearance - ENT Exam ENT Exam: Mucous Membranes Moist - Respiratory Exam Respiratory Exam: NORMAL BREATHING PATTERN - Cardiovascular Exam Cardiovascular Exam: +S1, +S2 - GI/Abdominal Exam GI & Abdominal Exam: Soft - Neurological Exam Neurological Exam: Alert, Awake, Oriented x3 - Psychiatric Exam Psychiatric exam: Normal Mood - Skin Skin Exam: Dry, Intact, Warm Assessment and Plan - Assessment and Plan (Free Text) Assessment: 72M s/p ex-lap for perforated viscous with Small bowel resection with anastomosis POD#25, with post-op leak and EC fistula Plan: - Increase Trickle feeds to 20cc/hr - continue TPN - Wound care - Strict I's & O's - Further recommendations as per Dr. Veronica (covering for Dr. Worthy) Jevon PGY2
[2017-08-03] MEDS: guaiFENesin-DM 600-30 mg ER Tab PO SCH ×2 (09:06→18:30)
[2017-08-03] MEDS: Micafungin 100 MG in Sodium Chloride 0.9% 100 ML IVPB SCH (09:08)
[2017-08-03 10:09] LABS: BASO # 0.1 K/uL (0.0-0.2); BASO % 2.2 % (0.0-2.0); EOS # 0.1 K/uL (0.0-0.7); EOS % 3.4 % (0.0-4.0); HEMOGLOBIN 8.2 g/dL (12.0-18.0); LYMPH # 0.6 K/uL (1.0-4.3); LYMPH % 20.1 % (20.0-40.0); MEAN CELL VOLUME 96.9 fl (80.0-94.0); MEAN CORPUSCULAR HEMOGLOBIN 32.6 pg (27.0-31.0); MEAN CORPUSCULAR HGB CONC 33.7 g/dL (33.0-37.0); MEAN PLATELET VOLUME 7.2 fl (7.2-11.7); MONO # 0.5 K/uL (0.0-0.8); MONO % 16.3 % (0.0-10.0); NEUT # 1.9 K/uL (1.8-7.0); NRBC % 0.1 % (0.0-0.0); RBC 2.5 Mil/uL (4.40-5.90); RED CELL DISTRIBUTION WIDTH 15.5 % (11.5-14.5); WHITE BLOOD COUNT 3.2 K/uL (4.8-10.8)
[2017-08-03 10:23] LABS: BLOOD UREA NITROGEN 24 mg/dl (9-20); CALCIUM 7.1 mg/dL (8.4-10.2); GFR AFRICAN-AMERICAN > 60; GFR NON-AFRICAN AMERICAN > 60
--- NOTE | 2017-08-03 11:41 | CP.PCM.PN ---
Subjective - Date & Time of Evaluation Date of Evaluation: 08/03/17 Time of Evaluation: 09:30 - Subjective Subjective: Has abdominal pain but appears more comfortable. Objective - Vital Signs/Intake and Output Vital Signs (last 24 hours): Temp Pulse Resp BP Pulse Ox 97.8 F 72 20 123/70 97 08/03/17 08:55 08/03/17 08:55 08/03/17 08:55 08/03/17 09:08 08/03/17 08:55 Intake and Output: 08/03/17 08/03/17 06:59 18:59 Intake Total 1130 Output Total 1000 Balance 130 - Medications Medications: Current Medications Acetaminophen (Tylenol 325mg Tab) 650 mg PO Q4 PRN PRN Reason: Pain, moderate (4-7) Cyanocobalamin (Vitamin B12 1000 Mcg/Ml Inj) 1,000 mcg IM DAILY [facility] Last Admin: 08/03/17 09:08 Dose: 1,000 mcg Epoetin Mata (Procrit) 10,000 unit SC TTS [facility] Fentanyl (Duragesic) 1 patch TD Q3D [facility] PRN Reason: Protocol Last Admin: 08/02/17 14:37 Dose: 1 patch Ferrous Sulfate (Feosol) 325 mg PO BID [facility] Last Admin: 08/03/17 09:07 Dose: 325 mg Furosemide (Lasix) 20 mg IVP DAILY [facility] Last Admin: 08/03/17 09:08 Dose: 20 mg Guaifenesin/Dextromethorphan (Mucinex-Dm 600-30 Mg) 1 tab PO BID [facility] Last Admin: 08/03/17 09:06 Dose: 1 tab Heparin Sodium (Porcine) (Heparin) 5,000 units SC Q8 [facility] PRN Reason: Protocol Last Admin: 08/03/17 09:09 Dose: 5,000 units Meropenem 1 gm/ Sodium (Chloride) 100 mls @ 100 mls/hr IVPB Q8 [facility] PRN Reason: Protocol Last Admin: 08/03/17 09:07 Dose: 100 mls/hr Micafungin Sodium 100 mg/ (Sodium Chloride) 100 mls @ 100 mls/hr IVPB DAILY [facility] PRN Reason: Protocol Last Admin: 08/03/17 09:08 Dose: 100 mls/hr Insulin Human Lispro (Humalog) 0 units SC Q6H [facility] PRN Reason: Protocol Last Admin: 08/03/17 04:39 Dose: Not Given Metoprolol Tartrate (Lopressor) 50 mg PO Q12 [facility] Last Admin: 08/03/17 09:06 Dose: 50 mg Morphine Sulfate (Morphine) 8 mg IVP Q3 PRN PRN Reason: Pain, moderate (4-7) Last Admin: 08/03/17 08:42 Dose: 8 mg Mupirocin (Bactroban Ointment) 1 applic TOP BID [facility] Last Admin: 08/02/17 10:17 Dose: Not Given Octreotide Acetate (Sandostatin) 300 mcg SC Q8@0500,1300,2100 [facility] Last Admin: 08/03/17 04:07 Dose: 300 mcg Potassium Chloride (Potassium Chloride Oral Soln) 20 meq PO BID [facility] Last Admin: 07/23/17 09:05 Dose: Not Given - Labs Labs: 08/03/17 09:30 08/03/17 09:30 PT 15.9 Seconds (9.8-13.1) H 07/22/17 05:20 INR 1.4 (0.9-1.2) H 07/22/17 05:20 APTT 39.1 Seconds (25.6-37.1) H 07/22/17 05:20 - Head Exam Head Exam: ATRAUMATIC - Eye Exam Eye Exam: Normal appearance - ENT Exam ENT Exam: Mucous Membranes Dry - Respiratory Exam Respiratory Exam: NORMAL BREATHING PATTERN - Cardiovascular Exam Cardiovascular Exam: +S1, +S2 - GI/Abdominal Exam GI & Abdominal Exam: Normal Bowel Sounds Assessment and Plan (1) Pancytopenia Assessment & Plan: improving plt count suspect sepsis related polypharmacy ? drug induced anemia of chronic disease transfusion support PRN Status: Acute
--- NOTE | 2017-08-03 13:01 | CP.PCM.CON ---
History of Present Illness - History of Present Illness History of Present Illness: 72 year old male with history of abdominal, pain , perforated viscus now on medical floor with diagnosis of Copd, At fib, Review of Systems - Musculoskeletal Musculoskeletal: Muscle Weakness Past Patient History - Infectious Disease Hx of Infectious Diseases: None - Tetanus Immunizations Tetanus Immunization: Unknown - Past Medical History & Family History Past Medical History?: Yes - Past Social History Smoking Status: Former Smoker Alcohol: None Drugs: Denies Home Situation {Lives}: Alone - CARDIAC Hx Atrial Fibrillation: Yes Hx Hypertension: Yes - PULMONARY Hx Chronic Obstructive Pulmonary Disease (COPD): Yes Hx Pneumonia: Yes - NEUROLOGICAL Hx Neurological Disorder: No - HEENT Hx HEENT Problems: Yes Other/Comment: Glasses - RENAL Hx Chronic Kidney Disease: No - ENDOCRINE/METABOLIC Hx Endocrine Disorders: No - HEMATOLOGICAL/ONCOLOGICAL Hx Human Immunodeficiency Virus (HIV): No - INTEGUMENTARY Hx Dermatological Problems: No - MUSCULOSKELETAL/RHEUMATOLOGICAL Hx Arthritis: Yes Hx Fractures: Yes Hx Rheumatoid Arthritis: Yes - GASTROINTESTINAL Hx Gastrointestinal Disorders: Yes Hx Ulcer: Yes - GENITOURINARY/GYNECOLOGICAL Hx Genitourinary Disorders: No - PSYCHIATRIC Hx Psychophysiologic Disorder: No Hx Substance Use: No - SURGICAL HISTORY Hx Cholecystectomy: Yes - ANESTHESIA Hx Anesthesia: Yes Hx Anesthesia Reactions: No Hx Malignant Hyperthermia: No Meds Allergies/Adverse Reactions: Allergies Allergy/AdvReac Type Severity Reaction Status Date / Time No Known Allergies Allergy Verified 07/07/17 14:40 - Medications Medications: Current Medications Acetaminophen (Tylenol 325mg Tab) 650 mg PO Q4 PRN PRN Reason: Pain, moderate (4-7) Cyanocobalamin (Vitamin B12 1000 Mcg/Ml Inj) 1,000 mcg IM DAILY [facility] Last Admin: 08/03/17 09:08 Dose: 1,000 mcg Epoetin Mata (Procrit) 10,000 unit SC TTS [facility] Fentanyl (Duragesic) 1 patch TD Q3D [facility] PRN Reason: Protocol Last Admin: 08/02/17 14:37 Dose: 1 patch Ferrous Sulfate (Feosol) 325 mg PO BID [facility] Last Admin: 08/03/17 09:07 Dose: 325 mg Furosemide (Lasix) 20 mg IVP DAILY [facility] Last Admin: 08/03/17 09:08 Dose: 20 mg Guaifenesin/Dextromethorphan (Mucinex-Dm 600-30 Mg) 1 tab PO BID [facility] Last Admin: 08/03/17 09:06 Dose: 1 tab Heparin Sodium (Porcine) (Heparin) 5,000 units SC Q8 [facility] PRN Reason: Protocol Last Admin: 08/03/17 09:09 Dose: 5,000 units Meropenem 1 gm/ Sodium (Chloride) 100 mls @ 100 mls/hr IVPB Q8 [facility] PRN Reason: Protocol Last Admin: 08/03/17 09:07 Dose: 100 mls/hr Micafungin Sodium 100 mg/ (Sodium Chloride) 100 mls @ 100 mls/hr IVPB DAILY [facility] PRN Reason: Protocol Last Admin: 08/03/17 09:08 Dose: 100 mls/hr Insulin Human Lispro (Humalog) 0 units SC Q6H [facility] PRN Reason: Protocol Last Admin: 08/03/17 04:39 Dose: Not Given Metoprolol Tartrate (Lopressor) 50 mg PO Q12 [facility] Last Admin: 08/03/17 09:06 Dose: 50 mg Morphine Sulfate (Morphine) 8 mg IVP Q3 PRN PRN Reason: Pain, moderate (4-7) Last Admin: 08/03/17 08:42 Dose: 8 mg Mupirocin (Bactroban Ointment) 1 applic TOP BID [facility] Last Admin: 08/02/17 10:17 Dose: Not Given Octreotide Acetate (Sandostatin) 300 mcg SC Q8@0500,1300,2100 [facility] Last Admin: 08/03/17 04:07 Dose: 300 mcg Potassium Chloride (Potassium Chloride Oral Soln) 20 meq PO BID [facility] Last Admin: 07/23/17 09:05 Dose: Not Given Physical Exam - Head Exam Head Exam: ATRAUMATIC, NORMAL INSPECTION, NORMOCEPHALIC - Eye Exam Eye Exam: EOMI, Normal appearance, PERRL Pupil Exam: PERRL - ENT Exam ENT Exam: Mucous Membranes Moist, Normal Exam - Neck Exam Neck exam: Positive for: Normal Inspection - Respiratory Exam Respiratory Exam: NORMAL BREATHING PATTERN - Cardiovascular Exam Cardiovascular Exam: REGULAR RHYTHM - GI/Abdominal Exam GI & Abdominal Exam: Normal Bowel Sounds - Rectal Exam Rectal Exam: NORMAL INSPECTION - Exam External exam: NORMAL EXTERNAL EXAM - Extremities Exam Extremities exam: Positive for: normal inspection - Back Exam Back exam: NORMAL INSPECTION - Neurological Exam Neurological exam: Alert, CN II-XII Intact - Psychiatric Exam Psychiatric exam: Normal Affect, Normal Mood - Skin Skin Exam: Dry Results - Vital Signs Recent Vital Signs: Last Vital Signs Temp 97.8 F 08/03/17 08:55 Pulse 72 08/03/17 08:55 Resp 20 08/03/17 08:55 BP 123/70 08/03/17 09:08 Pulse Ox 97 08/03/17 08:55 - Labs Result Diagrams: 08/03/17 09:30 08/03/17 09:30 Labs: Laboratory Results - last 24 hr 08/02/17 08/02/17 08/03/17 05:30 22:28 03:59 WBC RBC Hgb Hct MCV MCH MCHC RDW Plt Count MPV Neut % (Auto) Lymph % (Auto) [place] % (Auto) Eos % (Auto) Baso % (Auto) Neut # (Auto) Lymph # (Auto) [place] # (Auto) Eos # (Auto) Baso # (Auto) Sodium Potassium Chloride Carbon Dioxide Anion Gap BUN Creatinine Est GFR ( Amer) Est GFR (Non-Af Amer) POC Glucose (mg/dL) 136 H 148 H Random Glucose Calcium Phosphorus Magnesium Prealbumin 5.0 L Blood Type Antibody Screen Crossmatch BBK History Checked 08/03/17 08/03/17 08/03/17 05:30 05:30 06:01 WBC 3.3 L RBC 2.36 L Hgb 7.9 L Hct 24.3 L MCV 102.8 H D MCH 33.3 H MCHC 32.4 L RDW 16.7 H Plt Count 180 MPV Neut % (Auto) Lymph % (Auto) [place] % (Auto) Eos % (Auto) Baso % (Auto) Neut # (Auto) Lymph # (Auto) [place] # (Auto) Eos # (Auto) Baso # (Auto) Sodium 132 Potassium 5.3 H Chloride 95 L Carbon Dioxide 31 H Anion Gap 11 BUN 22 H Creatinine 0.6 L Est GFR ( Amer) > 60 Est GFR (Non-Af Amer) > 60 POC Glucose (mg/dL) 142 H Random Glucose 838 H* D Calcium 7.5 L Phosphorus 6.4 H Magnesium 2.1 Prealbumin Blood Type Antibody Screen Crossmatch BBK History Checked 08/03/17 08/03/17 08/03/17 08:28 09:30 09:30 WBC 3.2 L RBC 2.50 L Hgb 8.2 L Hct 24.3 L MCV 96.9 H D MCH 32.6 H MCHC 33.7 RDW 15.5 H Plt Count 167 MPV 7.2 Neut % (Auto) 58.0 Lymph % (Auto) 20.1 [place] % (Auto) 16.3 H Eos % (Auto) 3.4 Baso % (Auto) 2.2 H Neut # (Auto) 1.9 Lymph # (Auto) 0.6 L [place] # (Auto) 0.5 Eos # (Auto) 0.1 Baso # (Auto) 0.1 Sodium 135 Potassium 3.8 Chloride 99 Carbon Dioxide 30 Anion Gap 10 BUN 24 H Creatinine 0.6 L Est GFR ( Amer) > 60 Est GFR (Non-Af Amer) > 60 POC Glucose (mg/dL) 140 H Random Glucose 144 H Calcium 7.1 L Phosphorus Magnesium Prealbumin Blood Type Antibody Screen Crossmatch BBK History Checked 08/03/17 08/03/17 11:00 11:45 WBC RBC Hgb Hct MCV MCH MCHC RDW Plt Count MPV Neut % (Auto) Lymph % (Auto) [place] % (Auto) Eos % (Auto) Baso % (Auto) Neut # (Auto) Lymph # (Auto) [place] # (Auto) Eos # (Auto) Baso # (Auto) Sodium Potassium Chloride Carbon Dioxide Anion Gap BUN Creatinine Est GFR ( Amer) Est GFR (Non-Af Amer) POC Glucose (mg/dL) 168 H Random Glucose Calcium Phosphorus Magnesium Prealbumin Blood Type A POSITIVE Antibody Screen Negative Crossmatch See Detail BBK History Checked Patient has bt Assessment & Plan (1) Abdominal pain Status: Acute Comment: deconditioning (2) Abnormal chest x-ray Status: Chronic (3) Acute urinary retention Status: Acute (4) Afib Status: Suspected (5) Anemia Status: Acute (6) Anemia Status: Acute Priority: High (7) Constipation Status: Acute (8) Essential (primary) hypertension Status: Acute (9) Hx of atrial fibrillation, no current medication Status: Acute (10) TIA (transient ischemic attack) Status: Acute (11) Tibial plateau fracture Status: Acute (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
--- NOTE | 2017-08-03 13:08 | CP.PCM.PN ---
Subjective - Date & Time of Evaluation Date of Evaluation: 08/03/17 Time of Evaluation: 11:10 - Subjective Subjective: patinet with generalized weakness alert awake Objective - Vital Signs/Intake and Output Vital Signs (last 24 hours): Temp Pulse Resp BP Pulse Ox 97.8 F 72 20 123/70 97 08/03/17 08:55 08/03/17 08:55 08/03/17 08:55 08/03/17 09:08 08/03/17 08:55 Intake and Output: 08/03/17 08/03/17 06:59 18:59 Intake Total 1130 Output Total 1000 Balance 130 - Medications Medications: Current Medications Acetaminophen (Tylenol 325mg Tab) 650 mg PO Q4 PRN PRN Reason: Pain, moderate (4-7) Cyanocobalamin (Vitamin B12 1000 Mcg/Ml Inj) 1,000 mcg IM DAILY [facility] Last Admin: 08/03/17 09:08 Dose: 1,000 mcg Epoetin Mata (Procrit) 10,000 unit SC TTS [facility] Fentanyl (Duragesic) 1 patch TD Q3D [facility] PRN Reason: Protocol Last Admin: 08/02/17 14:37 Dose: 1 patch Ferrous Sulfate (Feosol) 325 mg PO BID [facility] Last Admin: 08/03/17 09:07 Dose: 325 mg Furosemide (Lasix) 20 mg IVP DAILY [facility] Last Admin: 08/03/17 09:08 Dose: 20 mg Guaifenesin/Dextromethorphan (Mucinex-Dm 600-30 Mg) 1 tab PO BID [facility] Last Admin: 08/03/17 09:06 Dose: 1 tab Heparin Sodium (Porcine) (Heparin) 5,000 units SC Q8 [facility] PRN Reason: Protocol Last Admin: 08/03/17 09:09 Dose: 5,000 units Meropenem 1 gm/ Sodium (Chloride) 100 mls @ 100 mls/hr IVPB Q8 [facility] PRN Reason: Protocol Last Admin: 08/03/17 09:07 Dose: 100 mls/hr Micafungin Sodium 100 mg/ (Sodium Chloride) 100 mls @ 100 mls/hr IVPB DAILY [facility] PRN Reason: Protocol Last Admin: 08/03/17 09:08 Dose: 100 mls/hr Insulin Human Lispro (Humalog) 0 units SC Q6H [facility] PRN Reason: Protocol Last Admin: 08/03/17 04:39 Dose: Not Given Metoprolol Tartrate (Lopressor) 50 mg PO Q12 [facility] Last Admin: 08/03/17 09:06 Dose: 50 mg Morphine Sulfate (Morphine) 8 mg IVP Q3 PRN PRN Reason: Pain, moderate (4-7) Last Admin: 08/03/17 08:42 Dose: 8 mg Mupirocin (Bactroban Ointment) 1 applic TOP BID [facility] Last Admin: 08/02/17 10:17 Dose: Not Given Octreotide Acetate (Sandostatin) 300 mcg SC Q8@0500,1300,2100 [facility] Last Admin: 08/03/17 04:07 Dose: 300 mcg Potassium Chloride (Potassium Chloride Oral Soln) 20 meq PO BID [facility] Last Admin: 07/23/17 09:05 Dose: Not Given - Labs Labs: 08/03/17 09:30 08/03/17 09:30 PT 15.9 Seconds (9.8-13.1) H 07/22/17 05:20 INR 1.4 (0.9-1.2) H 07/22/17 05:20 APTT 39.1 Seconds (25.6-37.1) H 07/22/17 05:20 - Head Exam Head Exam: ATRAUMATIC, NORMAL INSPECTION, NORMOCEPHALIC - Eye Exam Eye Exam: EOMI, Normal appearance, PERRL Pupil Exam: NORMAL ACCOMODATION - ENT Exam ENT Exam: Mucous Membranes Moist, Normal Exam - Neck Exam Neck Exam: Normal Inspection - Respiratory Exam Respiratory Exam: Clear to Ausculation Bilateral, NORMAL BREATHING PATTERN - Cardiovascular Exam Cardiovascular Exam: REGULAR RHYTHM - GI/Abdominal Exam GI & Abdominal Exam: Soft, Normal Bowel Sounds - Rectal Exam Rectal Exam: NORMAL INSPECTION - Exam External exam: NORMAL EXTERNAL EXAM - Extremities Exam Extremities Exam: Full ROM, Normal Capillary Refill, Normal Inspection - Back Exam Back Exam: NORMAL INSPECTION - Neurological Exam Neurological Exam: Alert, Awake Neuro motor strength exam: Left Upper Extremity: 3, Right Upper Extremity: 3, Left Lower Extremity: 3, Right Lower Extremity: 3 - Psychiatric Exam Psychiatric exam: Normal Affect, Normal Mood - Skin Skin Exam: Dry, Intact, Normal Color Assessment and Plan (1) Abdominal pain Status: Acute (2) Abnormal chest x-ray Status: Chronic (3) Acute urinary retention Status: Acute (4) Afib Status: Suspected (5) Anemia Status: Acute (6) Anemia Status: Acute (7) Constipation Status: Acute (8) Essential (primary) hypertension Status: Acute (9) Hx of atrial fibrillation, no current medication Status: Acute (10) TIA (transient ischemic attack) Status: Acute (11) Tibial plateau fracture Status: Acute (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
--- NOTE | 2017-08-03 13:19 | CP.PCM.PN ---
<Willard Akhtar - Last Filed: 08/03/17 14:01> Subjective - Date & Time of Evaluation Date of Evaluation: 08/03/17 Time of Evaluation: 08:25 - Subjective Subjective: Patient seen and examined this morning at bedside. There are no acute events overnight, NAD. Patient is POD25. Patient reports pain is improved w/ medication but still has a lot pain w/ movement. Patient on pulmonary sport bed. Patient tolerating TPN and trickle tube feeding Objective - Vital Signs/Intake and Output Vital Signs (last 24 hours): Temp Pulse Resp BP Pulse Ox 97.8 F 72 20 123/70 97 08/03/17 08:55 08/03/17 08:55 08/03/17 08:55 08/03/17 09:08 08/03/17 08:55 Intake and Output: 08/03/17 08/03/17 06:59 18:59 Intake Total 1130 Output Total 1000 Balance 130 - Medications Medications: Current Medications Acetaminophen (Tylenol 325mg Tab) 650 mg PO Q4 PRN PRN Reason: Pain, moderate (4-7) Cyanocobalamin (Vitamin B12 1000 Mcg/Ml Inj) 1,000 mcg IM DAILY [facility] Last Admin: 08/03/17 09:08 Dose: 1,000 mcg Epoetin Karolyn (Procrit) 10,000 unit SC TTS [facility] Fentanyl (Duragesic) 1 patch TD Q3D [facility] PRN Reason: Protocol Last Admin: 08/02/17 14:37 Dose: 1 patch Ferrous Sulfate (Feosol) 325 mg PO BID [facility] Last Admin: 08/03/17 09:07 Dose: 325 mg Furosemide (Lasix) 20 mg IVP DAILY [facility] Last Admin: 08/03/17 09:08 Dose: 20 mg Guaifenesin/Dextromethorphan (Mucinex-Dm 600-30 Mg) 1 tab PO BID [facility] Last Admin: 08/03/17 09:06 Dose: 1 tab Heparin Sodium (Porcine) (Heparin) 5,000 units SC Q8 [facility] PRN Reason: Protocol Last Admin: 08/03/17 09:09 Dose: 5,000 units Meropenem 1 gm/ Sodium (Chloride) 100 mls @ 100 mls/hr IVPB Q8 [facility] PRN Reason: Protocol Last Admin: 08/03/17 09:07 Dose: 100 mls/hr Micafungin Sodium 100 mg/ (Sodium Chloride) 100 mls @ 100 mls/hr IVPB DAILY [facility] PRN Reason: Protocol Last Admin: 08/03/17 09:08 Dose: 100 mls/hr Insulin Human Lispro (Humalog) 0 units SC Q6H [facility] PRN Reason: Protocol Last Admin: 08/03/17 04:39 Dose: Not Given Metoprolol Tartrate (Lopressor) 50 mg PO Q12 [facility] Last Admin: 08/03/17 09:06 Dose: 50 mg Morphine Sulfate (Morphine) 8 mg IVP Q3 PRN PRN Reason: Pain, moderate (4-7) Last Admin: 08/03/17 13:12 Dose: 8 mg Mupirocin (Bactroban Ointment) 1 applic TOP BID [facility] Last Admin: 08/02/17 10:17 Dose: Not Given Octreotide Acetate (Sandostatin) 300 mcg SC Q8@0500,1300,2100 [facility] Last Admin: 08/03/17 04:07 Dose: 300 mcg Potassium Chloride (Potassium Chloride Oral Soln) 20 meq PO BID [facility] Last Admin: 07/23/17 09:05 Dose: Not Given - Labs Labs: 08/03/17 09:30 08/03/17 09:30 PT 15.9 Seconds (9.8-13.1) H 07/22/17 05:20 INR 1.4 (0.9-1.2) H 07/22/17 05:20 APTT 39.1 Seconds (25.6-37.1) H 07/22/17 05:20 - Constitutional Appears: Non-toxic, No Acute Distress - Head Exam Head Exam: ATRAUMATIC, NORMAL INSPECTION, NORMOCEPHALIC - Eye Exam Eye Exam: Normal appearance - ENT Exam ENT Exam: Mucous Membranes Moist - Neck Exam Neck Exam: Full ROM. absent: Tenderness - Respiratory Exam Respiratory Exam: Clear to Ausculation Bilateral. absent: Accessory Muscle Use , Decreased Breath Sounds, Rales, Rhonchi, Wheezes, Respiratory Distress - Cardiovascular Exam Cardiovascular Exam: REGULAR RHYTHM. absent: Tachycardia - GI/Abdominal Exam GI & Abdominal Exam: Soft, Tenderness Additional comments: Abdominal steffi, with colostomy bags x2 from upper middle quadrant and lower quadrant of the abdomen with dark green drainage - Extremities Exam Extremities Exam: absent: Calf Tenderness, Pedal Edema - Neurological Exam Neurological Exam: Alert, Awake, Oriented x3 - Skin Skin Exam: absent: Rash Assessment and Plan (1) Abdominal pain Status: Acute (2) Abscess Status: Acute (3) Atrial fibrillation Status: Acute (4) COPD (chronic obstructive pulmonary disease) Status: Acute (5) Essential (primary) hypertension Status: Acute (6) Hx of atrial fibrillation, no current medication Status: Acute (7) Intestinal perforation Status: Acute (8) Perforated abdominal viscus Status: Acute (9) Thrombocytopenia Status: Acute (10) Anemia Status: Acute - Assessment and Plan (Free Text) Plan: c/w present management. s/p ex-lap for perforated viscous with Small bowel resection with anastomosis, with post-op leak and EC fistula; POD 25 Surgery recommendations appreciated heme/onc recommendations appreciated pain management recommendations appreciated infectious disease recommendations appreciated micafungin 100 mg IV daily day 13 meropenem 1 gm IV Q8h day 13 TPN @ 70 mL/h tube feeds increased to 20mL/h pain management: morphine 8 mg IV Q3h prn, fentanyl patch 50mcg Q3d start epoetin karolyn c/w pulmonary sport bed DVT PPX: heparin 5000 SC Q8h <Bronson Castaneda L - Last Filed: 08/04/17 22:51> Objective - Vital Signs/Intake and Output Vital Signs (last 24 hours): Temp Pulse Resp BP Pulse Ox 98.6 F 67 20 95/59 L 99 08/04/17 17:00 08/04/17 17:00 08/04/17 17:00 08/04/17 17:00 08/04/17 17:00 Intake and Output: 08/04/17 08/05/17 18:59 06:59 Intake Total 830 Output Total 380 Balance 450 - Medications Medications: Current Medications Acetaminophen (Tylenol 325mg Tab) 650 mg PO Q4 PRN PRN Reason: Pain, moderate (4-7) Cyanocobalamin (Vitamin B12 1000 Mcg/Ml Inj) 1,000 mcg IM DAILY [facility] Last Admin: 08/04/17 09:09 Dose: 1,000 mcg Epoetin Karolyn (Procrit) 20,000 unit SC MWF [facility] Fentanyl (Duragesic) 1 patch TD Q3D [facility] PRN Reason: Protocol Last Admin: 08/02/17 14:37 Dose: 1 patch Ferrous Sulfate (Feosol) 325 mg PO BID [facility] Last Admin: 08/04/17 17:20 Dose: 325 mg Furosemide (Lasix) 20 mg IVP DAILY [facility] Last Admin: 08/04/17 08:57 Dose: Not Given Guaifenesin/Dextromethorphan (Mucinex-Dm 600-30 Mg) 1 tab PO BID [facility] Last Admin: 08/04/17 17:57 Dose: 1 tab Heparin Sodium (Porcine) (Heparin) 5,000 units SC Q8 [facility] PRN Reason: Protocol Last Admin: 08/04/17 17:20 Dose: 5,000 units Meropenem 1 gm/ Sodium (Chloride) 100 mls @ 100 mls/hr IVPB Q8 [facility] PRN Reason: Protocol Last Admin: 08/04/17 17:19 Dose: 100 mls/hr Micafungin Sodium 100 mg/ (Sodium Chloride) 100 mls @ 100 mls/hr IVPB DAILY [facility] PRN Reason: Protocol Last Admin: 08/04/17 08:54 Dose: 100 mls/hr Insulin Human Lispro (Humalog) 0 units SC Q6H [facility] PRN Reason: Protocol Last Admin: 08/04/17 17:07 Dose: Not Given Metoprolol Tartrate (Lopressor) 50 mg PO Q12 [facility] Last Admin: 08/04/17 08:52 Dose: Not Given Morphine Sulfate (Morphine) 8 mg IVP Q3 PRN PRN Reason: Pain, moderate (4-7) Last Admin: 08/04/17 12:32 Dose: 8 mg Mupirocin (Bactroban Ointment) 1 applic TOP BID [facility] Last Admin: 08/02/17 10:17 Dose: Not Given Octreotide Acetate (Sandostatin) 300 mcg SC Q8@0500,1300,2100 [facility] Last Admin: 08/04/17 12:33 Dose: 300 mcg Pantoprazole Sodium (Protonix Ec Tab) 40 mg PO DAILY [facility] Last Admin: 08/04/17 17:19 Dose: 40 mg Potassium Chloride (Potassium Chloride Oral Soln) 20 meq PO BID [facility] Last Admin: 07/23/17 09:05 Dose: Not Given - Labs Labs: 08/04/17 05:05 08/04/17 05:05 PT 15.9 Seconds (9.8-13.1) H 07/22/17 05:20 INR 1.4 (0.9-1.2) H 07/22/17 05:20 APTT 39.1 Seconds (25.6-37.1) H 07/22/17 05:20 Assessment and Plan (1) Abdominal pain Status: Acute (2) COPD (chronic obstructive pulmonary disease) Status: Acute (3) Essential (primary) hypertension Status: Acute (4) Hx of atrial fibrillation, no current medication Status: Acute (5) Intestinal perforation Status: Acute (6) Perforated abdominal viscus Status: Acute (7) Atrial fibrillation Status: Acute (8) Anemia Status: Acute (9) Thrombocytopenia Status: Acute (10) Abscess Status: Acute - Assessment and Plan (Free Text) Plan: I was present during evaluation and discussed with Dr Akhtar re plans of care and tx. Bronson Castaneda M.D.
--- NOTE | 2017-08-03 13:26 | CP.PCM.PN ---
Subjective - Date & Time of Evaluation Date of Evaluation: 08/03/17 Time of Evaluation: 09:00 - Subjective Subjective: 72M s/p ex-lap for perforated viscous with Small bowel resection with anastomosis POD#25, with post-op leak and EC fistula Objective - Vital Signs/Intake and Output Vital Signs (last 24 hours): Temp Pulse Resp BP Pulse Ox 97.8 F 72 20 123/70 97 08/03/17 08:55 08/03/17 08:55 08/03/17 08:55 08/03/17 09:08 08/03/17 08:55 Intake and Output: 08/03/17 08/03/17 06:59 18:59 Intake Total 1130 Output Total 1000 Balance 130 - Medications Medications: Current Medications Acetaminophen (Tylenol 325mg Tab) 650 mg PO Q4 PRN PRN Reason: Pain, moderate (4-7) Cyanocobalamin (Vitamin B12 1000 Mcg/Ml Inj) 1,000 mcg IM DAILY [facility] Last Admin: 08/03/17 09:08 Dose: 1,000 mcg Epoetin Mata (Procrit) 10,000 unit SC TTS [facility] Fentanyl (Duragesic) 1 patch TD Q3D [facility] PRN Reason: Protocol Last Admin: 08/02/17 14:37 Dose: 1 patch Ferrous Sulfate (Feosol) 325 mg PO BID [facility] Last Admin: 08/03/17 09:07 Dose: 325 mg Furosemide (Lasix) 20 mg IVP DAILY [facility] Last Admin: 08/03/17 09:08 Dose: 20 mg Guaifenesin/Dextromethorphan (Mucinex-Dm 600-30 Mg) 1 tab PO BID [facility] Last Admin: 08/03/17 09:06 Dose: 1 tab Heparin Sodium (Porcine) (Heparin) 5,000 units SC Q8 [facility] PRN Reason: Protocol Last Admin: 08/03/17 09:09 Dose: 5,000 units Meropenem 1 gm/ Sodium (Chloride) 100 mls @ 100 mls/hr IVPB Q8 [facility] PRN Reason: Protocol Last Admin: 08/03/17 09:07 Dose: 100 mls/hr Micafungin Sodium 100 mg/ (Sodium Chloride) 100 mls @ 100 mls/hr IVPB DAILY [facility] PRN Reason: Protocol Last Admin: 08/03/17 09:08 Dose: 100 mls/hr Insulin Human Lispro (Humalog) 0 units SC Q6H [facility] PRN Reason: Protocol Last Admin: 08/03/17 04:39 Dose: Not Given Metoprolol Tartrate (Lopressor) 50 mg PO Q12 [facility] Last Admin: 08/03/17 09:06 Dose: 50 mg Morphine Sulfate (Morphine) 8 mg IVP Q3 PRN PRN Reason: Pain, moderate (4-7) Last Admin: 08/03/17 13:12 Dose: 8 mg Mupirocin (Bactroban Ointment) 1 applic TOP BID [facility] Last Admin: 08/02/17 10:17 Dose: Not Given Octreotide Acetate (Sandostatin) 300 mcg SC Q8@0500,1300,2100 [facility] Last Admin: 08/03/17 04:07 Dose: 300 mcg Potassium Chloride (Potassium Chloride Oral Soln) 20 meq PO BID [facility] Last Admin: 07/23/17 09:05 Dose: Not Given - Labs Labs: 08/03/17 09:30 08/03/17 09:30 PT 15.9 Seconds (9.8-13.1) H 07/22/17 05:20 INR 1.4 (0.9-1.2) H 07/22/17 05:20 APTT 39.1 Seconds (25.6-37.1) H 07/22/17 05:20 - Constitutional Appears: Non-toxic, Cachectic, Chronically Ill - Head Exam Head Exam: NORMOCEPHALIC - Eye Exam Eye Exam: PERRL. absent: Scleral icterus - ENT Exam ENT Exam: Mucous Membranes Dry - Neck Exam Neck Exam: absent: Lymphadenopathy - Respiratory Exam Respiratory Exam: Decreased Breath Sounds - Cardiovascular Exam Cardiovascular Exam: REGULAR RHYTHM - GI/Abdominal Exam GI & Abdominal Exam: Distended - Rectal Exam Rectal Exam: Deferred Assessment and Plan (1) Abdominal pain Status: Acute (2) COPD (chronic obstructive pulmonary disease) Status: Acute (3) Essential (primary) hypertension Status: Acute (4) Hx of atrial fibrillation, no current medication Status: Acute (5) Intestinal perforation Status: Acute (6) Perforated abdominal viscus Status: Acute (7) Sepsis Status: Acute - Assessment and Plan (Free Text) Assessment: 72M s/p ex-lap for perforated viscous with Small bowel resection with anastomosis POD#23, with post-op leak and EC fistula
[2017-08-03] MEDS ORDERED: POTASSIUM PHOSPHATE IV ONE (15:00)
[2017-08-03] MEDS ORDERED: [UNRECOGNIZED DRUG - OTHER] IV ONE (15:00)
[2017-08-03] MEDS ORDERED: MAGNESIUM SULFATE IV ONE (15:00)
[2017-08-03] MEDS ORDERED: SODIUM CHLORIDE IV ONE (15:00)
[2017-08-04] MEDS: Meropenem 1 GM in Sodium Chloride 0.9% 100 ML IVPB SCH ×3 (00:17→17:19)
[2017-08-04] MEDS: Morphine 4 MG/ML VIAL IVP PRN ×4 (02:39→23:54)
[2017-08-04] MEDS ORDERED: POTASSIUM PHOSPHATE IV ONE (06:30)
[2017-08-04] MEDS ORDERED: MAGNESIUM SULFATE IV ONE (06:30)
[2017-08-04] MEDS ORDERED: SODIUM CHLORIDE IV ONE (06:30)
[2017-08-04] MEDS ORDERED: [UNRECOGNIZED DRUG - OTHER] IV ONE (06:30)
[2017-08-04] MEDS: Insulin Lispro (humaLOG) 100 Units/ml Inj SC SCH ×3 (07:07→17:07)
[2017-08-04 07:40] LABS: HEMOGLOBIN 7.6 g/dL (12.0-18.0); MEAN CELL VOLUME 97.2 fl (80.0-94.0); MEAN CORPUSCULAR HEMOGLOBIN 32.9 pg (27.0-31.0); MEAN CORPUSCULAR HGB CONC 33.9 g/dL (33.0-37.0); RBC 2.3 Mil/uL (4.40-5.90); RED CELL DISTRIBUTION WIDTH 15.6 % (11.5-14.5); WHITE BLOOD COUNT 3.2 K/uL (4.8-10.8)
[2017-08-04 07:46] LABS: BLOOD UREA NITROGEN 23 mg/dl (9-20); CALCIUM 7.1 mg/dL (8.4-10.2); GFR AFRICAN-AMERICAN > 60; GFR NON-AFRICAN AMERICAN > 60
--- NOTE | 2017-08-04 08:33 | CP.PCM.PN ---
Subjective - Date & Time of Evaluation Date of Evaluation: 08/04/17 Time of Evaluation: 07:15 - Subjective Subjective: Patient seen and examined. No acute events over night. Tolerating trickle feeds. Remains on TPN. Objective - Vital Signs/Intake and Output Vital Signs (last 24 hours): Temp Pulse Resp BP Pulse Ox 98.3 F 69 20 100/63 95 08/04/17 00:23 08/04/17 00:23 08/04/17 00:23 08/04/17 00:23 08/04/17 00:23 Intake and Output: 08/04/17 08/04/17 06:59 18:59 Intake Total 1180 Output Total 1225 Balance -45 - Medications Medications: Current Medications Acetaminophen (Tylenol 325mg Tab) 650 mg PO Q4 PRN PRN Reason: Pain, moderate (4-7) Cyanocobalamin (Vitamin B12 1000 Mcg/Ml Inj) 1,000 mcg IM DAILY [facility] Last Admin: 08/03/17 09:08 Dose: 1,000 mcg Epoetin Mata (Procrit) 10,000 unit SC TTS [facility] Fentanyl (Duragesic) 1 patch TD Q3D [facility] PRN Reason: Protocol Last Admin: 08/02/17 14:37 Dose: 1 patch Ferrous Sulfate (Feosol) 325 mg PO BID [facility] Last Admin: 08/03/17 18:29 Dose: 325 mg Furosemide (Lasix) 20 mg IVP DAILY [facility] Last Admin: 08/03/17 09:08 Dose: 20 mg Guaifenesin/Dextromethorphan (Mucinex-Dm 600-30 Mg) 1 tab PO BID [facility] Last Admin: 08/03/17 18:30 Dose: 1 tab Heparin Sodium (Porcine) (Heparin) 5,000 units SC Q8 [facility] PRN Reason: Protocol Last Admin: 08/04/17 00:40 Dose: 5,000 units Meropenem 1 gm/ Sodium (Chloride) 100 mls @ 100 mls/hr IVPB Q8 [facility] PRN Reason: Protocol Last Admin: 08/04/17 00:17 Dose: 100 mls/hr Micafungin Sodium 100 mg/ (Sodium Chloride) 100 mls @ 100 mls/hr IVPB DAILY [facility] PRN Reason: Protocol Last Admin: 08/03/17 09:08 Dose: 100 mls/hr Sodium Chloride 70 meq/Potassium Phosphate 30 mmole/Magnesium Sulfate 10 meq/ Calcium Gluconate 10 meq/Insulin Human Regular 2 units/Amino Acids 1,051.4883 mls @ 70 mls/hr IV .Q15H2M ONE Stop: 08/04/17 21:31 Insulin Human Lispro (Humalog) 0 units SC Q6H [facility] PRN Reason: Protocol Last Admin: 08/04/17 07:07 Dose: 1 units Metoprolol Tartrate (Lopressor) 50 mg PO Q12 [facility] Last Admin: 08/03/17 21:54 Dose: Not Given Morphine Sulfate (Morphine) 8 mg IVP Q3 PRN PRN Reason: Pain, moderate (4-7) Last Admin: 08/04/17 06:09 Dose: 8 mg Mupirocin (Bactroban Ointment) 1 applic TOP BID [facility] Last Admin: 08/02/17 10:17 Dose: Not Given Octreotide Acetate (Sandostatin) 300 mcg SC Q8@0500,1300,2100 [facility] Last Admin: 08/04/17 05:45 Dose: 300 mcg Potassium Chloride (Potassium Chloride Oral Soln) 20 meq PO BID [facility] Last Admin: 07/23/17 09:05 Dose: Not Given - Labs Labs: 08/04/17 05:05 08/04/17 05:05 PT 15.9 Seconds (9.8-13.1) H 07/22/17 05:20 INR 1.4 (0.9-1.2) H 07/22/17 05:20 APTT 39.1 Seconds (25.6-37.1) H 07/22/17 05:20 - Constitutional Appears: No Acute Distress - Head Exam Head Exam: NORMOCEPHALIC - Respiratory Exam Respiratory Exam: NORMAL BREATHING PATTERN - Cardiovascular Exam Cardiovascular Exam: +S1, +S2 - GI/Abdominal Exam GI & Abdominal Exam: Soft. 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 Veronica (covering for Dr. Worthy) Jevon PGY2
[2017-08-04] MEDS: Micafungin 100 MG in Sodium Chloride 0.9% 100 ML IVPB SCH (08:54)
[2017-08-04] MEDS ORDERED: EPOETIN ALFA 10,000 UNIT/ML ML SC SCH (09:00)
[2017-08-04] MEDS ORDERED: DiphenhydrAMINE 50 mg/ml Inj IVP ONE (12:10)
[2017-08-04] MEDS: Pantoprazole 40 mg EC Tab PO SCH (17:19)
[2017-08-04] MEDS: guaiFENesin-DM 600-30 mg ER Tab PO SCH (17:57)
--- NOTE | 2017-08-04 22:54 | CP.PCM.PN ---
Subjective - Date & Time of Evaluation Date of Evaluation: 08/04/17 Time of Evaluation: 17:00 - Subjective Subjective: Noted drop in Hgb to 7.6 Noted low BP. Has no chest pain or SOB No abd pain. Objective - Vital Signs/Intake and Output Vital Signs (last 24 hours): Temp Pulse Resp BP Pulse Ox 98.6 F 67 20 95/59 L 99 08/04/17 17:00 08/04/17 17:00 08/04/17 17:00 08/04/17 17:00 08/04/17 17:00 Intake and Output: 08/04/17 08/05/17 18:59 06:59 Intake Total 830 Output Total 380 Balance 450 - Medications Medications: Current Medications Acetaminophen (Tylenol 325mg Tab) 650 mg PO Q4 PRN PRN Reason: Pain, moderate (4-7) Cyanocobalamin (Vitamin B12 1000 Mcg/Ml Inj) 1,000 mcg IM DAILY [facility] Last Admin: 08/04/17 09:09 Dose: 1,000 mcg Epoetin Mata (Procrit) 20,000 unit SC MWF [facility] Fentanyl (Duragesic) 1 patch TD Q3D [facility] PRN Reason: Protocol Last Admin: 08/02/17 14:37 Dose: 1 patch Ferrous Sulfate (Feosol) 325 mg PO BID [facility] Last Admin: 08/04/17 17:20 Dose: 325 mg Furosemide (Lasix) 20 mg IVP DAILY [facility] Last Admin: 08/04/17 08:57 Dose: Not Given Guaifenesin/Dextromethorphan (Mucinex-Dm 600-30 Mg) 1 tab PO BID [facility] Last Admin: 08/04/17 17:57 Dose: 1 tab Heparin Sodium (Porcine) (Heparin) 5,000 units SC Q8 [facility] PRN Reason: Protocol Last Admin: 08/04/17 17:20 Dose: 5,000 units Meropenem 1 gm/ Sodium (Chloride) 100 mls @ 100 mls/hr IVPB Q8 [facility] PRN Reason: Protocol Last Admin: 08/04/17 17:19 Dose: 100 mls/hr Micafungin Sodium 100 mg/ (Sodium Chloride) 100 mls @ 100 mls/hr IVPB DAILY [facility] PRN Reason: Protocol Last Admin: 08/04/17 08:54 Dose: 100 mls/hr Insulin Human Lispro (Humalog) 0 units SC Q6H [facility] PRN Reason: Protocol Last Admin: 08/04/17 17:07 Dose: Not Given Metoprolol Tartrate (Lopressor) 50 mg PO Q12 [facility] Last Admin: 08/04/17 08:52 Dose: Not Given Morphine Sulfate (Morphine) 8 mg IVP Q3 PRN PRN Reason: Pain, moderate (4-7) Last Admin: 08/04/17 12:32 Dose: 8 mg Mupirocin (Bactroban Ointment) 1 applic TOP BID [facility] Last Admin: 08/02/17 10:17 Dose: Not Given Octreotide Acetate (Sandostatin) 300 mcg SC Q8@0500,1300,2100 [facility] Last Admin: 08/04/17 12:33 Dose: 300 mcg Pantoprazole Sodium (Protonix Ec Tab) 40 mg PO DAILY [facility] Last Admin: 08/04/17 17:19 Dose: 40 mg Potassium Chloride (Potassium Chloride Oral Soln) 20 meq PO BID [facility] Last Admin: 07/23/17 09:05 Dose: Not Given - Labs Labs: 08/04/17 05:05 08/04/17 05:05 PT 15.9 Seconds (9.8-13.1) H 07/22/17 05:20 INR 1.4 (0.9-1.2) H 07/22/17 05:20 APTT 39.1 Seconds (25.6-37.1) H 07/22/17 05:20 - Head Exam Head Exam: NORMAL INSPECTION - Eye Exam Eye Exam: Normal appearance - ENT Exam ENT Exam: Mucous Membranes Moist - Respiratory Exam Respiratory Exam: Clear to Ausculation Bilateral - Cardiovascular Exam Cardiovascular Exam: REGULAR RHYTHM - GI/Abdominal Exam GI & Abdominal Exam: Normal Bowel Sounds - Neurological Exam Neurological Exam: Awake, Oriented x3 Assessment and Plan (1) Abdominal pain Status: Acute (2) COPD (chronic obstructive pulmonary disease) Status: Acute (3) Essential (primary) hypertension Status: Acute (4) Hx of atrial fibrillation, no current medication Status: Acute (5) Intestinal perforation Status: Acute (6) Perforated abdominal viscus Status: Acute (7) Atrial fibrillation Status: Acute (8) Anemia Status: Acute (9) Thrombocytopenia Status: Acute (10) Abscess Status: Acute - Assessment and Plan (Free Text) Plan: Cont meds Transfuse 2 units PRBC. check cbc cmp in am. stool occult blood increase epogen to 20 000 u 3x a week
[2017-08-05] MEDS: Insulin Lispro (humaLOG) 100 Units/ml Inj SC SCH ×5 (00:09→22:00)
[2017-08-05] MEDS: Meropenem 1 GM in Sodium Chloride 0.9% 100 ML IVPB SCH ×2 (00:23→09:03)
--- NOTE | 2017-08-05 02:13 | CP.PCM.PN ---
Subjective - Date & Time of Evaluation Date of Evaluation: 08/04/17 Time of Evaluation: 18:10 - Subjective Subjective: Has abdominal pain Objective - Vital Signs/Intake and Output Vital Signs (last 24 hours): Temp Pulse Resp BP Pulse Ox 97.6 F 78 20 91/54 L 98 08/05/17 00:50 08/05/17 00:50 08/05/17 00:50 08/05/17 00:50 08/05/17 00:50 Intake and Output: 08/04/17 08/05/17 18:59 06:59 Intake Total 830 Output Total 380 Balance 450 - Medications Medications: Current Medications Acetaminophen (Tylenol 325mg Tab) 650 mg PO Q4 PRN PRN Reason: Pain, moderate (4-7) Cyanocobalamin (Vitamin B12 1000 Mcg/Ml Inj) 1,000 mcg IM DAILY [facility] Last Admin: 08/04/17 09:09 Dose: 1,000 mcg Epoetin Mata (Procrit) 20,000 unit SC MWF [facility] Fentanyl (Duragesic) 1 patch TD Q3D [facility] PRN Reason: Protocol Last Admin: 08/02/17 14:37 Dose: 1 patch Ferrous Sulfate (Feosol) 325 mg PO BID [facility] Last Admin: 08/04/17 17:20 Dose: 325 mg Furosemide (Lasix) 20 mg IVP DAILY [facility] Last Admin: 08/04/17 08:57 Dose: Not Given Guaifenesin/Dextromethorphan (Mucinex-Dm 600-30 Mg) 1 tab PO BID [facility] Last Admin: 08/04/17 17:57 Dose: 1 tab Heparin Sodium (Porcine) (Heparin) 5,000 units SC Q8 [facility] PRN Reason: Protocol Last Admin: 08/05/17 00:22 Dose: 5,000 units Meropenem 1 gm/ Sodium (Chloride) 100 mls @ 100 mls/hr IVPB Q8 [facility] PRN Reason: Protocol Last Admin: 08/05/17 00:23 Dose: 100 mls/hr Micafungin Sodium 100 mg/ (Sodium Chloride) 100 mls @ 100 mls/hr IVPB DAILY [facility] PRN Reason: Protocol Last Admin: 08/04/17 08:54 Dose: 100 mls/hr Insulin Human Lispro (Humalog) 0 units SC Q6H [facility] PRN Reason: Protocol Last Admin: 08/05/17 00:09 Dose: Not Given Metoprolol Tartrate (Lopressor) 50 mg PO Q12 [facility] Last Admin: 08/04/17 22:00 Dose: Not Given Morphine Sulfate (Morphine) 8 mg IVP Q3 PRN PRN Reason: Pain, moderate (4-7) Last Admin: 08/04/17 23:54 Dose: 8 mg Mupirocin (Bactroban Ointment) 1 applic TOP BID [facility] Last Admin: 08/02/17 10:17 Dose: Not Given Octreotide Acetate (Sandostatin) 300 mcg SC Q8@0500,1300,2100 [facility] Last Admin: 08/04/17 23:50 Dose: 300 mcg Pantoprazole Sodium (Protonix Ec Tab) 40 mg PO DAILY [facility] Last Admin: 08/04/17 17:19 Dose: 40 mg Potassium Chloride (Potassium Chloride Oral Soln) 20 meq PO BID [facility] Last Admin: 07/23/17 09:05 Dose: Not Given - Labs Labs: 08/04/17 05:05 08/04/17 05:05 PT 15.9 Seconds (9.8-13.1) H 07/22/17 05:20 INR 1.4 (0.9-1.2) H 07/22/17 05:20 APTT 39.1 Seconds (25.6-37.1) H 07/22/17 05:20 - Head Exam Head Exam: ATRAUMATIC - Eye Exam Eye Exam: Normal appearance - ENT Exam ENT Exam: Mucous Membranes Dry - Respiratory Exam Respiratory Exam: NORMAL BREATHING PATTERN - Cardiovascular Exam Cardiovascular Exam: +S1, +S2 - GI/Abdominal Exam GI & Abdominal Exam: Normal Bowel Sounds Assessment and Plan (1) Pancytopenia Assessment & Plan: mild leukopenia anemia of chronic disease; for 2U PRBC today on Procrit and iron Status: Acute
[2017-08-05] MEDS: Morphine 4 MG/ML VIAL IVP PRN ×2 (04:53→09:14)
--- NOTE | 2017-08-05 07:40 | CP.PCM.PN ---
Subjective - Date & Time of Evaluation Date of Evaluation: 08/05/17 Time of Evaluation: 06:55 - Subjective Subjective: General Surgery Note for Dr. Veronica (covering for Dr. Worthy) Patient seen and examined. No acute event overnight. Patient denies pain and nausea/vomiting. Tolerating trickle feeds. Remains on TPN. Objective - Vital Signs/Intake and Output Vital Signs (last 24 hours): Temp Pulse Resp BP Pulse Ox 97.6 F 78 20 91/54 L 98 08/05/17 00:50 08/05/17 00:50 08/05/17 00:50 08/05/17 00:50 08/05/17 00:50 Intake and Output: 08/05/17 08/05/17 06:59 18:59 Intake Total 2030 Output Total 1380 Balance 650 - Medications Medications: Current Medications Acetaminophen (Tylenol 325mg Tab) 650 mg PO Q4 PRN PRN Reason: Pain, moderate (4-7) Cyanocobalamin (Vitamin B12 1000 Mcg/Ml Inj) 1,000 mcg IM DAILY [facility] Last Admin: 08/04/17 09:09 Dose: 1,000 mcg Epoetin Mata (Procrit) 20,000 unit SC MWF [facility] Fentanyl (Duragesic) 1 patch TD Q3D [facility] PRN Reason: Protocol Last Admin: 08/02/17 14:37 Dose: 1 patch Ferrous Sulfate (Feosol) 325 mg PO BID [facility] Last Admin: 08/04/17 17:20 Dose: 325 mg Furosemide (Lasix) 20 mg IVP DAILY [facility] Last Admin: 08/04/17 08:57 Dose: Not Given Guaifenesin/Dextromethorphan (Mucinex-Dm 600-30 Mg) 1 tab PO BID [facility] Last Admin: 08/04/17 17:57 Dose: 1 tab Heparin Sodium (Porcine) (Heparin) 5,000 units SC Q8 [facility] PRN Reason: Protocol Last Admin: 08/05/17 00:22 Dose: 5,000 units Meropenem 1 gm/ Sodium (Chloride) 100 mls @ 100 mls/hr IVPB Q8 [facility] PRN Reason: Protocol Last Admin: 08/05/17 00:23 Dose: 100 mls/hr Micafungin Sodium 100 mg/ (Sodium Chloride) 100 mls @ 100 mls/hr IVPB DAILY [facility] PRN Reason: Protocol Last Admin: 08/04/17 08:54 Dose: 100 mls/hr Insulin Human Lispro (Humalog) 0 units SC Q6H [facility] PRN Reason: Protocol Last Admin: 08/05/17 04:59 Dose: 3 units Metoprolol Tartrate (Lopressor) 50 mg PO Q12 [facility] Last Admin: 08/04/17 22:00 Dose: Not Given Morphine Sulfate (Morphine) 8 mg IVP Q3 PRN PRN Reason: Pain, moderate (4-7) Last Admin: 08/05/17 04:53 Dose: 8 mg Mupirocin (Bactroban Ointment) 1 applic TOP BID [facility] Last Admin: 08/02/17 10:17 Dose: Not Given Octreotide Acetate (Sandostatin) 300 mcg SC Q8@0500,1300,2100 [facility] Last Admin: 08/05/17 04:58 Dose: 300 mcg Pantoprazole Sodium (Protonix Ec Tab) 40 mg PO DAILY [facility] Last Admin: 08/04/17 17:19 Dose: 40 mg Potassium Chloride (Potassium Chloride Oral Soln) 20 meq PO BID [facility] Last Admin: 07/23/17 09:05 Dose: Not Given - Labs Labs: 08/04/17 05:05 08/04/17 05:05 PT 15.9 Seconds (9.8-13.1) H 07/22/17 05:20 INR 1.4 (0.9-1.2) H 07/22/17 05:20 APTT 39.1 Seconds (25.6-37.1) H 07/22/17 05:20 - Constitutional Appears: No Acute Distress - Head Exam Head Exam: ATRAUMATIC, NORMOCEPHALIC - Eye Exam Eye Exam: Normal appearance - ENT Exam ENT Exam: Mucous Membranes Moist - Respiratory Exam Respiratory Exam: NORMAL BREATHING PATTERN - Cardiovascular Exam Cardiovascular Exam: REGULAR RHYTHM - GI/Abdominal Exam GI & Abdominal Exam: Soft, Normal Bowel Sounds. 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 Veronica (covering for Dr. Worthy) Antonio Soares PGY1
[2017-08-05 07:53] LABS: MEAN CELL VOLUME 94.8 fl (80.0-94.0); MEAN CORPUSCULAR HEMOGLOBIN 31.8 pg (27.0-31.0); MEAN CORPUSCULAR HGB CONC 33.6 g/dL (33.0-37.0); RBC 3.33 Mil/uL (4.40-5.90)
[2017-08-05 07:58] LABS: HEMOGLOBIN 10.6 g/dL (12.0-18.0)
[2017-08-05 08:15] LABS: ALB/GLOB RATIO 0.5 (1.0-2.1); ALBUMIN 1.8 g/dL (3.5-5.0); ALT/SGPT 31 U/L (21-72); AST/SGOT 34 U/L (17-59); BLOOD UREA NITROGEN 29 mg/dl (9-20); CALCIUM 7.2 mg/dL (8.4-10.2); GFR AFRICAN-AMERICAN > 60; GFR NON-AFRICAN AMERICAN > 60
[2017-08-05] MEDS: guaiFENesin-DM 600-30 mg ER Tab PO SCH ×2 (09:03→16:55)
[2017-08-05] MEDS: Micafungin 100 MG in Sodium Chloride 0.9% 100 ML IVPB SCH (09:03)
[2017-08-05] MEDS: Pantoprazole 40 mg EC Tab PO SCH (09:04)
[2017-08-05] MEDS ORDERED: [UNRECOGNIZED DRUG - OTHER] IV ONE ×2 (12:00→15:30)
[2017-08-05] MEDS ORDERED: POTASSIUM PHOSPHATE IV ONE ×2 (12:00→15:30)
[2017-08-05] MEDS ORDERED: MAGNESIUM SULFATE IV ONE ×2 (12:00→15:30)
[2017-08-05] MEDS ORDERED: SODIUM CHLORIDE IV ONE ×2 (12:00→15:30)
--- NOTE | 2017-08-05 14:07 | CP.PCM.PN ---
Subjective - Date & Time of Evaluation Date of Evaluation: 08/05/17 Time of Evaluation: 08:00 - Subjective Subjective: Patient denies pain and nausea/vomiting. Tolerating trickle feeds. Remains on TPN. Objective - Vital Signs/Intake and Output Vital Signs (last 24 hours): Temp Pulse Resp BP Pulse Ox 97.8 F 57 L 20 101/63 99 08/05/17 08:52 08/05/17 09:02 08/05/17 08:52 08/05/17 09:04 08/05/17 08:52 Intake and Output: 08/05/17 08/05/17 06:59 18:59 Intake Total 2030 Output Total 1380 Balance 650 - Medications Medications: Current Medications Acetaminophen (Tylenol 325mg Tab) 650 mg PO Q4 PRN PRN Reason: Pain, moderate (4-7) Cyanocobalamin (Vitamin B12 1000 Mcg/Ml Inj) 1,000 mcg IM DAILY [facility] Last Admin: 08/05/17 09:07 Dose: 1,000 mcg Epoetin Mata (Procrit) 20,000 unit SC MWF [facility] Fat Emulsion Intravenous (Intralipid 20%) 250 ml IV MWF [facility] Ferrous Sulfate (Feosol) 325 mg PO BID [facility] Last Admin: 08/05/17 08:45 Dose: 325 mg Furosemide (Lasix) 20 mg IVP DAILY [facility] Last Admin: 08/05/17 09:04 Dose: 20 mg Guaifenesin/Dextromethorphan (Mucinex-Dm 600-30 Mg) 1 tab PO BID [facility] Last Admin: 08/05/17 09:03 Dose: 1 tab Heparin Sodium (Porcine) (Heparin) 5,000 units SC Q8 [facility] PRN Reason: Protocol Last Admin: 08/05/17 08:45 Dose: 5,000 units Meropenem 1 gm/ Sodium (Chloride) 100 mls @ 100 mls/hr IVPB Q8 [facility] PRN Reason: Protocol Last Admin: 08/05/17 09:03 Dose: 100 mls/hr Micafungin Sodium 100 mg/ (Sodium Chloride) 100 mls @ 100 mls/hr IVPB DAILY [facility] PRN Reason: Protocol Last Admin: 08/05/17 09:03 Dose: 100 mls/hr Sodium Chloride 70 meq/Potassium Phosphate 30 mmole/Magnesium Sulfate 10 meq/ Calcium Gluconate 10 meq/Multivitamins/Vitamin C 10 ml/Chromium/Copper/Manganese /Zinc 3 ml/ Insulin Human Regular 4 units/ Amino Acids 1,064.5083 mls @ 70 mls/ hr IV .[id number] ONE Stop: 08/06/17 03:12 Last Admin: 08/05/17 13:22 Dose: 70 mls/hr Insulin Human Lispro (Humalog) 0 units SC Q6H [facility] PRN Reason: Protocol Last Admin: 08/05/17 13:20 Dose: 3 units Metoprolol Tartrate (Lopressor) 50 mg PO Q12 [facility] Last Admin: 08/05/17 09:02 Dose: Not Given Morphine Sulfate (Morphine) 8 mg IVP Q3 PRN PRN Reason: Pain, moderate (4-7) Last Admin: 08/05/17 09:14 Dose: 8 mg Mupirocin (Bactroban Ointment) 1 applic TOP BID [facility] Last Admin: 08/02/17 10:17 Dose: Not Given Octreotide Acetate (Sandostatin) 300 mcg SC Q8@0500,1300,2100 [facility] Last Admin: 08/05/17 13:21 Dose: 300 mcg Pantoprazole Sodium (Protonix Ec Tab) 40 mg PO DAILY [facility] Last Admin: 08/05/17 09:04 Dose: 40 mg Potassium Chloride (Potassium Chloride Oral Soln) 20 meq PO BID [facility] Last Admin: 07/23/17 09:05 Dose: Not Given - Labs Labs: 08/05/17 06:20 08/05/17 06:20 PT 15.9 Seconds (9.8-13.1) H 07/22/17 05:20 INR 1.4 (0.9-1.2) H 07/22/17 05:20 APTT 39.1 Seconds (25.6-37.1) H 07/22/17 05:20 - Constitutional Appears: Non-toxic, Cachectic, Chronically Ill - Head Exam Head Exam: NORMOCEPHALIC - Eye Exam Eye Exam: PERRL. absent: Scleral icterus - ENT Exam ENT Exam: Mucous Membranes Dry, Normal External Ear Exam - Neck Exam Neck Exam: absent: Lymphadenopathy - Respiratory Exam Respiratory Exam: Decreased Breath Sounds - Cardiovascular Exam Cardiovascular Exam: REGULAR RHYTHM - GI/Abdominal Exam GI & Abdominal Exam: Distended, Soft. absent: Tenderness Additional comments: ostomy and drains in place - Rectal Exam Rectal Exam: Deferred - Exam Exam: NORMAL INSPECTION - Extremities Exam Extremities Exam: absent: Pedal Edema - Back Exam Back Exam: absent: CVA tenderness (L), CVA tenderness (R) Assessment and Plan (1) Abdominal pain Status: Acute (2) COPD (chronic obstructive pulmonary disease) Status: Acute (3) Essential (primary) hypertension Status: Acute (4) Hx of atrial fibrillation, no current medication Status: Acute (5) Intestinal perforation Status: Acute (6) Perforated abdominal viscus Status: Acute (7) Sepsis Status: Acute - Assessment and Plan (Free Text) Assessment: will d/c iv antibiotics of ok with dr Castaneda
--- NOTE | 2017-08-05 19:27 | CP.PCM.PN ---
Subjective - Date & Time of Evaluation Date of Evaluation: 08/05/17 Time of Evaluation: 13:30 - Subjective Subjective: Has no fever Hgb increased to 10 after two units of PRBC transfusion On NGT feedings Has no fever Absd is soft Objective - Vital Signs/Intake and Output Vital Signs (last 24 hours): Temp Pulse Resp BP Pulse Ox 97.9 F 87 18 94/56 L 98 08/05/17 15:42 08/05/17 15:42 08/05/17 15:42 08/05/17 15:42 08/05/17 15:42 - Medications Medications: Current Medications Acetaminophen (Tylenol 325mg Tab) 650 mg PO Q4 PRN PRN Reason: Pain, moderate (4-7) Cyanocobalamin (Vitamin B12 1000 Mcg/Ml Inj) 1,000 mcg IM DAILY [facility] Last Admin: 08/05/17 09:07 Dose: 1,000 mcg Epoetin Mata (Procrit) 20,000 unit SC MWF [facility] Fat Emulsion Intravenous (Intralipid 20%) 250 ml IV F [facility] Fentanyl (Duragesic) 1 patch TD Q3D [facility] PRN Reason: Protocol Ferrous Sulfate (Feosol) 325 mg PO BID [facility] Last Admin: 08/05/17 16:55 Dose: 325 mg Furosemide (Lasix) 20 mg IVP DAILY [facility] Last Admin: 08/05/17 09:04 Dose: 20 mg Guaifenesin/Dextromethorphan (Mucinex-Dm 600-30 Mg) 1 tab PO BID [facility] Last Admin: 08/05/17 16:55 Dose: 1 tab Heparin Sodium (Porcine) (Heparin) 5,000 units SC Q8 [facility] PRN Reason: Protocol Last Admin: 08/05/17 16:54 Dose: 5,000 units Sodium Chloride 70 meq/Potassium Phosphate 30 mmole/Magnesium Sulfate 10 meq/ Calcium Gluconate 10 meq/Multivitamins/Vitamin C 10 ml/Chromium/Copper/Manganese /Zinc 3 ml/ Insulin Human Regular 4 units/ Amino Acids 1,064.5083 mls @ 70 mls/ hr IV .[id number] ONE Stop: 08/06/17 03:12 Last Admin: 08/05/17 13:22 Dose: 70 mls/hr Fluconazole (Diflucan Iv 100 Mg/50 Ml Ns) 50 mls @ 50 mls/hr IVPB DAILY [facility] PRN Reason: Protocol Sodium Chloride 70 meq/Potassium Phosphate 30 mmole/Magnesium Sulfate 10 meq/ Calcium Gluconate 10 meq/Insulin Human Regular 2 units/Amino Acids 1,051.4883 mls @ 70 mls/hr IV .Q15H2M ONE Stop: 08/06/17 06:31 Insulin Human Lispro (Humalog) 0 units SC Q6H [facility] PRN Reason: Protocol Last Admin: 08/05/17 16:53 Dose: 3 units Metoprolol Tartrate (Lopressor) 50 mg PO Q12 [facility] Last Admin: 08/05/17 09:02 Dose: Not Given Mupirocin (Bactroban Ointment) 1 applic TOP BID [facility] Last Admin: 08/02/17 10:17 Dose: Not Given Octreotide Acetate (Sandostatin) 300 mcg SC Q8@0500,1300,2100 [facility] Last Admin: 08/05/17 13:21 Dose: 300 mcg Pantoprazole Sodium (Protonix Ec Tab) 40 mg PO DAILY [facility] Last Admin: 08/05/17 09:04 Dose: 40 mg Potassium Chloride (Potassium Chloride Oral Soln) 20 meq PO BID [facility] Last Admin: 07/23/17 09:05 Dose: Not Given - Labs Labs: 08/05/17 06:20 08/05/17 06:20 PT 15.9 Seconds (9.8-13.1) H 07/22/17 05:20 INR 1.4 (0.9-1.2) H 07/22/17 05:20 APTT 39.1 Seconds (25.6-37.1) H 07/22/17 05:20 - Head Exam Head Exam: NORMAL INSPECTION - Eye Exam Eye Exam: Normal appearance - ENT Exam ENT Exam: Mucous Membranes Moist - Respiratory Exam Respiratory Exam: Clear to Ausculation Bilateral - Cardiovascular Exam Cardiovascular Exam: REGULAR RHYTHM - GI/Abdominal Exam GI & Abdominal Exam: Normal Bowel Sounds - Neurological Exam Neurological Exam: CN II-XII Intact - Psychiatric Exam Psychiatric exam: Normal Mood Assessment and Plan (1) Abdominal pain Status: Acute (2) COPD (chronic obstructive pulmonary disease) Status: Acute (3) Essential (primary) hypertension Status: Acute (4) Hx of atrial fibrillation, no current medication Status: Acute (5) Intestinal perforation Status: Acute (6) Perforated abdominal viscus Status: Acute (7) Atrial fibrillation Status: Acute (8) Anemia Status: Acute (9) Thrombocytopenia Status: Acute (10) Abscess Status: Acute - Assessment and Plan (Free Text) Plan: Cont meds Cont tx Cont feeding Phys therapy Cont meds.
[2017-08-05] MEDS ORDERED: Morphine 4 MG/ML VIAL IVP PRN (19:55)
[2017-08-05] MEDS: Fluconazole IV 100mg/50 ml NS 50 ML IVPB SCH (21:11)
--- NOTE | 2017-08-05 22:09 | CP.PCM.PN ---
Subjective - Date & Time of Evaluation Date of Evaluation: 08/05/17 Time of Evaluation: 17:00 - Subjective Subjective: Has some abdominal pain Objective - Vital Signs/Intake and Output Vital Signs (last 24 hours): Temp Pulse Resp BP Pulse Ox 97.9 F 67 18 109/55 L 98 08/05/17 15:42 08/05/17 21:06 08/05/17 15:42 08/05/17 21:06 08/05/17 15:42 Intake and Output: 08/05/17 08/06/17 18:59 06:59 Intake Total 1380 Output Total 300 Balance 1080 - Medications Medications: Current Medications Acetaminophen (Tylenol 325mg Tab) 650 mg PO Q4 PRN PRN Reason: Pain, moderate (4-7) Cyanocobalamin (Vitamin B12 1000 Mcg/Ml Inj) 1,000 mcg IM DAILY [facility] Last Admin: 08/05/17 09:07 Dose: 1,000 mcg Epoetin Mata (Procrit) 20,000 unit SC MWF [facility] Fat Emulsion Intravenous (Intralipid 20%) 250 ml IV F [facility] Fentanyl (Duragesic) 1 patch TD Q3D [facility] PRN Reason: Protocol Last Admin: 08/05/17 19:54 Dose: 1 patch Ferrous Sulfate (Feosol) 325 mg PO BID [facility] Last Admin: 08/05/17 16:55 Dose: 325 mg Furosemide (Lasix) 20 mg IVP DAILY [facility] Last Admin: 08/05/17 09:04 Dose: 20 mg Guaifenesin/Dextromethorphan (Mucinex-Dm 600-30 Mg) 1 tab PO BID [facility] Last Admin: 08/05/17 16:55 Dose: 1 tab Heparin Sodium (Porcine) (Heparin) 5,000 units SC Q8 [facility] PRN Reason: Protocol Last Admin: 08/05/17 16:54 Dose: 5,000 units Sodium Chloride 70 meq/Potassium Phosphate 30 mmole/Magnesium Sulfate 10 meq/ Calcium Gluconate 10 meq/Multivitamins/Vitamin C 10 ml/Chromium/Copper/Manganese /Zinc 3 ml/ Insulin Human Regular 4 units/ Amino Acids 1,064.5083 mls @ 70 mls/ hr IV .[id number] ONE Stop: 08/06/17 03:12 Last Admin: 08/05/17 13:22 Dose: 70 mls/hr Fluconazole (Diflucan Iv 100 Mg/50 Ml Ns) 50 mls @ 50 mls/hr IVPB DAILY [facility] PRN Reason: Protocol Last Admin: 08/05/17 21:11 Dose: 50 mls/hr Sodium Chloride 70 meq/Potassium Phosphate 30 mmole/Magnesium Sulfate 10 meq/ Calcium Gluconate 10 meq/Insulin Human Regular 2 units/Amino Acids 1,051.4883 mls @ 70 mls/hr IV .Q15H2M ONE Stop: 08/06/17 06:31 Insulin Human Lispro (Humalog) 0 units SC Q6H [facility] PRN Reason: Protocol Last Admin: 08/05/17 16:53 Dose: 3 units Metoprolol Tartrate (Lopressor) 50 mg PO Q12 [facility] Last Admin: 08/05/17 21:06 Dose: 50 mg Morphine Sulfate (Morphine) 8 mg IVP Q3 PRN PRN Reason: Pain, severe (8-10) Last Admin: 08/05/17 20:08 Dose: 8 mg Mupirocin (Bactroban Ointment) 1 applic TOP BID [facility] Last Admin: 08/02/17 10:17 Dose: Not Given Octreotide Acetate (Sandostatin) 300 mcg SC Q8@0500,1300,2100 [facility] Last Admin: 08/05/17 21:07 Dose: 300 mcg Pantoprazole Sodium (Protonix Ec Tab) 40 mg PO DAILY [facility] Last Admin: 08/05/17 09:04 Dose: 40 mg Potassium Chloride (Potassium Chloride Oral Soln) 20 meq PO BID [facility] Last Admin: 07/23/17 09:05 Dose: Not Given - Labs Labs: 08/05/17 06:20 08/05/17 06:20 PT 15.9 Seconds (9.8-13.1) H 07/22/17 05:20 INR 1.4 (0.9-1.2) H 07/22/17 05:20 APTT 39.1 Seconds (25.6-37.1) H 07/22/17 05:20 - Head Exam Head Exam: ATRAUMATIC - Eye Exam Eye Exam: Normal appearance - ENT Exam ENT Exam: Mucous Membranes Dry - Respiratory Exam Respiratory Exam: NORMAL BREATHING PATTERN - Cardiovascular Exam Cardiovascular Exam: +S1, +S2 - GI/Abdominal Exam GI & Abdominal Exam: Normal Bowel Sounds Assessment and Plan (1) Pancytopenia Assessment & Plan: mild leukopenia H/H improved s/p 2U PRBC on Procrit plt count stabilized Status: Acute
[2017-08-06] MEDS: Morphine 5 MG/ML SYRINGE IVP PRN ×4 (00:29→21:37)
[2017-08-06] MEDS: Insulin Lispro (humaLOG) 100 Units/ml Inj SC SCH ×4 (05:28→22:52)
[2017-08-06 07:15] LABS: BASO % 0.4 % (0.0-2.0); EOS % 1.3 % (0.0-4.0); HEMOGLOBIN 10.7 g/dL (12.0-18.0); LYMPH # 0.9 K/uL (1.0-4.3); LYMPH % 25.1 % (20.0-40.0); MEAN CELL VOLUME 96.4 fl (80.0-94.0); MEAN CORPUSCULAR HEMOGLOBIN 31.7 pg (27.0-31.0); MEAN CORPUSCULAR HGB CONC 32.9 g/dL (33.0-37.0); MEAN PLATELET VOLUME 7.5 fl (7.2-11.7); MONO # 0.6 K/uL (0.0-0.8); MONO % 15.8 % (0.0-10.0); NEUT # 2.1 K/uL (1.8-7.0); NEUT % 57.4 % (50.0-75.0); NRBC % 0.3 % (0.0-0.0); RBC 3.38 Mil/uL (4.40-5.90); RED CELL DISTRIBUTION WIDTH 17.2 % (11.5-14.5); WHITE BLOOD COUNT 3.7 K/uL (4.8-10.8)
[2017-08-06 07:31] LABS: ALB/GLOB RATIO 0.5 (1.0-2.1); ALBUMIN 1.8 g/dL (3.5-5.0); ALT/SGPT 49 U/L (21-72); AST/SGOT 36 U/L (17-59); BLOOD UREA NITROGEN 35 mg/dl (9-20); CALCIUM 7.4 mg/dL (8.4-10.2); GFR AFRICAN-AMERICAN > 60; GFR NON-AFRICAN AMERICAN > 60; HDL CHOLESTEROL 14 MG/DL (30-70); LDL CHOLESTEROL < 30 mg/dL (0-129)
--- NOTE | 2017-08-06 08:21 | CP.PCM.PN ---
<Adelfo Hummel - Last Filed: 08/06/17 08:22> Subjective - Date & Time of Evaluation Date of Evaluation: 08/06/17 Time of Evaluation: 07:20 - Subjective Subjective: Patient seen and examined. No acute events over night. Complaining of right calf pain and tenderness. Remains on TPN and tube feeds. Objective - Vital Signs/Intake and Output Vital Signs (last 24 hours): Temp Pulse Resp BP Pulse Ox 97.4 F L 72 18 111/70 96 08/06/17 08:05 08/06/17 08:05 08/06/17 08:05 08/06/17 08:05 08/06/17 08:05 Intake and Output: 08/06/17 08/06/17 06:59 18:59 Intake Total 1140 Output Total 450 Balance 690 - Medications Medications: Current Medications Acetaminophen (Tylenol 325mg Tab) 650 mg PO Q4 PRN PRN Reason: Pain, moderate (4-7) Cyanocobalamin (Vitamin B12 1000 Mcg/Ml Inj) 1,000 mcg IM DAILY [facility] Last Admin: 08/05/17 09:07 Dose: 1,000 mcg Epoetin Mata (Procrit) 20,000 unit SC MWF [facility] Fat Emulsion Intravenous (Intralipid 20%) 250 ml IV MWF [facility] Fentanyl (Duragesic) 1 patch TD Q3D [facility] PRN Reason: Protocol Last Admin: 08/05/17 19:54 Dose: 1 patch Ferrous Sulfate (Feosol) 325 mg PO BID [facility] Last Admin: 08/05/17 16:55 Dose: 325 mg Furosemide (Lasix) 20 mg IVP DAILY [facility] Last Admin: 08/05/17 09:04 Dose: 20 mg Guaifenesin/Dextromethorphan (Mucinex-Dm 600-30 Mg) 1 tab PO BID [facility] Last Admin: 08/05/17 16:55 Dose: 1 tab Heparin Sodium (Porcine) (Heparin) 5,000 units SC Q8 [facility] PRN Reason: Protocol Last Admin: 08/06/17 00:29 Dose: 5,000 units Fluconazole (Diflucan Iv 100 Mg/50 Ml Ns) 50 mls @ 50 mls/hr IVPB DAILY [facility] PRN Reason: Protocol Last Admin: 08/05/17 21:11 Dose: 50 mls/hr Insulin Human Lispro (Humalog) 0 units SC Q6H [facility] PRN Reason: Protocol Last Admin: 08/06/17 05:28 Dose: Not Given Metoprolol Tartrate (Lopressor) 50 mg PO Q12 [facility] Last Admin: 08/05/17 21:06 Dose: 50 mg Morphine Sulfate (Morphine) 8 mg IVP Q3 PRN PRN Reason: Pain, severe (8-10) Last Admin: 08/06/17 05:06 Dose: 8 mg Mupirocin (Bactroban Ointment) 1 applic TOP BID [facility] Last Admin: 08/02/17 10:17 Dose: Not Given Octreotide Acetate (Sandostatin) 300 mcg SC Q8@0500,1300,2100 [facility] Last Admin: 08/06/17 05:28 Dose: 300 mcg Pantoprazole Sodium (Protonix Ec Tab) 40 mg PO DAILY [facility] Last Admin: 08/05/17 09:04 Dose: 40 mg Potassium Chloride (Potassium Chloride Oral Soln) 20 meq PO BID [facility] Last Admin: 07/23/17 09:05 Dose: Not Given - Labs Labs: 08/06/17 05:30 08/06/17 05:30 PT 15.9 Seconds (9.8-13.1) H 07/22/17 05:20 INR 1.4 (0.9-1.2) H 07/22/17 05:20 APTT 39.1 Seconds (25.6-37.1) H 07/22/17 05:20 - Constitutional Appears: No Acute Distress - Eye Exam Eye Exam: EOMI, Normal appearance - ENT Exam ENT Exam: Mucous Membranes Moist - Respiratory Exam Respiratory Exam: NORMAL BREATHING PATTERN - Cardiovascular Exam Cardiovascular Exam: +S1, +S2 - GI/Abdominal Exam GI & Abdominal Exam: Soft - Neurological Exam Neurological Exam: Alert, Awake, Oriented x3 - Psychiatric Exam Psychiatric exam: Normal Mood - Skin Skin Exam: Dry, Intact, Normal Color, Warm Assessment and Plan - Assessment and Plan (Free Text) Assessment: 72M s/p ex-lap for perforated viscous with Small bowel resection with anastomosis POD#28, with post-op leak and colocutaneous fistula Plan: C/w TPN Increase tube feeds to 30mls/hr DVT ppx Will order RLE U/S to r/o DVT Further recs per Dr. Zaynab Escoto PGY2 <Mook Worthy B - Last Filed: 08/06/17 19:32> Objective - Vital Signs/Intake and Output Vital Signs (last 24 hours): Temp Pulse Resp BP Pulse Ox 97.8 F 62 20 98/62 L 98 08/06/17 15:45 08/06/17 15:45 08/06/17 15:45 08/06/17 15:45 08/06/17 15:45 Intake and Output: 08/06/17 08/07/17 18:59 06:59 Intake Total 1140 Output Total 820 Balance 320 - Medications Medications: Current Medications Acetaminophen (Tylenol 325mg Tab) 650 mg PO Q4 PRN PRN Reason: Pain, moderate (4-7) Cyanocobalamin (Vitamin B12 1000 Mcg/Ml Inj) 1,000 mcg IM DAILY [facility] Last Admin: 08/06/17 09:54 Dose: 1,000 mcg Epoetin Mata (Procrit) 20,000 unit SC MWF [facility] Last Admin: 08/06/17 09:53 Dose: 20,000 unit Fat Emulsion Intravenous (Intralipid 20%) 250 ml IV MWF [facility] Last Admin: 08/06/17 09:51 Dose: 250 ml Fentanyl (Duragesic) 1 patch TD Q3D [facility] PRN Reason: Protocol Last Admin: 08/05/17 19:54 Dose: 1 patch Ferrous Sulfate (Feosol Liq) 300 mg PO BID [facility] Last Admin: 08/06/17 16:46 Dose: 300 mg Furosemide (Lasix) 20 mg IVP DAILY [facility] Last Admin: 08/06/17 10:00 Dose: 20 mg Guaifenesin/Dextromethorphan (Robitussin Dm) 10 ml PO Q6 PRN PRN Reason: Cough Last Admin: 08/06/17 16:46 Dose: 10 ml Heparin Sodium (Porcine) (Heparin) 5,000 units SC Q8 [facility] PRN Reason: Protocol Last Admin: 08/06/17 16:45 Dose: 5,000 units Fluconazole (Diflucan Iv 100 Mg/50 Ml Ns) 50 mls @ 50 mls/hr IVPB DAILY [facility] PRN Reason: Protocol Last Admin: 08/06/17 09:50 Dose: 50 mls/hr Multivitamins/Vitamin C 10 ml/Chromium/Copper/Manganese/Zinc 3 ml/ Amino Acids/ Electrolytes/Dextrose 2,013 mls @ 60 mls/hr IV .Q24H ONE Stop: 08/07/17 16:14 Last Admin: 08/06/17 18:31 Dose: 60 mls/hr Insulin Human Lispro (Humalog) 0 units SC Q6H [facility] PRN Reason: Protocol Last Admin: 08/06/17 16:47 Dose: 1 units Lidocaine (Lidoderm) 1 ea TD DAILY [facility] Last Admin: 08/06/17 18:32 Dose: 1 ea Metoprolol Tartrate (Lopressor) 50 mg PO Q12 [facility] Last Admin: 08/06/17 09:52 Dose: 50 mg Morphine Sulfate (Morphine) 8 mg IVP Q3 PRN PRN Reason: Pain, severe (8-10) Last Admin: 08/06/17 05:06 Dose: 8 mg Morphine Sulfate (Morphine) 2 mg IVP Q4 PRN PRN Reason: Pain, moderate (4-7) Last Admin: 08/06/17 12:48 Dose: 2 mg Octreotide Acetate (Sandostatin) 300 mcg SC Q8@0500,1300,2100 [facility] Last Admin: 08/06/17 12:52 Dose: 300 mcg Pantoprazole Sodium (Protonix Ec Tab) 40 mg PO DAILY [facility] Last Admin: 08/06/17 09:55 Dose: 40 mg Potassium Chloride (Potassium Chloride Oral Soln) 20 meq PO BID [facility] Last Admin: 07/23/17 09:05 Dose: Not Given - Labs Labs: 08/06/17 05:30 08/06/17 05:30 PT 15.9 Seconds (9.8-13.1) H 07/22/17 05:20 INR 1.4 (0.9-1.2) H 07/22/17 05:20 APTT 39.1 Seconds (25.6-37.1) H 07/22/17 05:20 Attending/Attestation - Attestation I have personally seen and examined this patient.: Yes I have fully participated in the care of the patient.: Yes I have reviewed all pertinent clinical information, including history, physical exam and plan: Yes Notes (Text): Pt was seen and examined at bedside Agree with above note assessment OOB to chair and walk PT consult c.w Tube feeds and TPN Slowly taper TPN Plan d.w pt and nurse in detail Risk and benefit explained in detail.
[2017-08-06] MEDS: Fluconazole IV 100mg/50 ml NS 50 ML IVPB SCH (09:50)
[2017-08-06] MEDS: Epoetin Alfa 20000 UNIT/ML Inj SC SCH (09:53)
[2017-08-06] MEDS: Pantoprazole 40 mg EC Tab PO SCH (09:55)
--- NOTE | 2017-08-06 11:15 | US ---
PROCEDURE: Right lower extremity venous duplex Doppler. HISTORY: right calf pain/tenderness COMPARISON: Lower extremity ultrasound dated 07/22/2017. TECHNIQUE: Common femoral, superficial femoral, popliteal and posterior tibial veins were evaluated. Flow was assessed with color Doppler, compressibility, assessment of phasic flow and augmentation response. FINDINGS: COMMON FEMORAL VEIN: Unremarkable. SUPERFICIAL FEMORAL VEIN: Unremarkable. POPLITEAL VEIN: Unremarkable. POSTERIOR TIBIAL VEIN: Unremarkable. OTHER FINDINGS: None. IMPRESSION: No evidence of deep venous thrombosis in the right lower extremity. 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
--- NOTE | 2017-08-06 11:39 | CP.PCM.PN ---
Subjective - Date & Time of Evaluation Date of Evaluation: 08/06/17 Time of Evaluation: 09:00 - Subjective Subjective: events noted IV antibiotics on hold- 21 days cont wound care and nutritional support Objective - Vital Signs/Intake and Output Vital Signs (last 24 hours): Temp Pulse Resp BP Pulse Ox 97.4 F L 72 18 111/70 96 08/06/17 08:05 08/06/17 09:52 08/06/17 08:05 08/06/17 10:00 08/06/17 08:05 Intake and Output: 08/06/17 08/06/17 06:59 18:59 Intake Total 1140 Output Total 450 Balance 690 - Medications Medications: Current Medications Acetaminophen (Tylenol 325mg Tab) 650 mg PO Q4 PRN PRN Reason: Pain, moderate (4-7) Cyanocobalamin (Vitamin B12 1000 Mcg/Ml Inj) 1,000 mcg IM DAILY [facility] Last Admin: 08/06/17 09:54 Dose: 1,000 mcg Epoetin Mata (Procrit) 20,000 unit SC MWF [facility] Last Admin: 08/06/17 09:53 Dose: 20,000 unit Fat Emulsion Intravenous (Intralipid 20%) 250 ml IV MWF [facility] Last Admin: 08/06/17 09:51 Dose: 250 ml Fentanyl (Duragesic) 1 patch TD Q3D [facility] PRN Reason: Protocol Last Admin: 08/05/17 19:54 Dose: 1 patch Ferrous Sulfate (Feosol) 325 mg PO BID [facility] Last Admin: 08/06/17 10:00 Dose: 325 mg Furosemide (Lasix) 20 mg IVP DAILY [facility] Last Admin: 08/06/17 10:00 Dose: 20 mg Guaifenesin/Dextromethorphan (Mucinex-Dm 600-30 Mg) 1 tab PO BID [facility] Last Admin: 08/05/17 16:55 Dose: 1 tab Heparin Sodium (Porcine) (Heparin) 5,000 units SC Q8 [facility] PRN Reason: Protocol Last Admin: 08/06/17 09:51 Dose: 5,000 units Fluconazole (Diflucan Iv 100 Mg/50 Ml Ns) 50 mls @ 50 mls/hr IVPB DAILY [facility] PRN Reason: Protocol Last Admin: 08/06/17 09:50 Dose: 50 mls/hr Insulin Human Lispro (Humalog) 0 units SC Q6H [facility] PRN Reason: Protocol Last Admin: 08/06/17 05:28 Dose: Not Given Metoprolol Tartrate (Lopressor) 50 mg PO Q12 [facility] Last Admin: 08/06/17 09:52 Dose: 50 mg Morphine Sulfate (Morphine) 8 mg IVP Q3 PRN PRN Reason: Pain, severe (8-10) Last Admin: 08/06/17 05:06 Dose: 8 mg Mupirocin (Bactroban Ointment) 1 applic TOP BID [facility] Last Admin: 08/02/17 10:17 Dose: Not Given Octreotide Acetate (Sandostatin) 300 mcg SC Q8@0500,1300,2100 [facility] Last Admin: 08/06/17 05:28 Dose: 300 mcg Pantoprazole Sodium (Protonix Ec Tab) 40 mg PO DAILY [facility] Last Admin: 08/06/17 09:55 Dose: 40 mg Potassium Chloride (Potassium Chloride Oral Soln) 20 meq PO BID [facility] Last Admin: 07/23/17 09:05 Dose: Not Given - Labs Labs: 08/06/17 05:30 08/06/17 05:30 PT 15.9 Seconds (9.8-13.1) H 07/22/17 05:20 INR 1.4 (0.9-1.2) H 07/22/17 05:20 APTT 39.1 Seconds (25.6-37.1) H 07/22/17 05:20 Assessment and Plan (1) Abdominal pain Status: Acute (2) COPD (chronic obstructive pulmonary disease) Status: Acute (3) Essential (primary) hypertension Status: Acute (4) Hx of atrial fibrillation, no current medication Status: Acute (5) Intestinal perforation Status: Acute (6) Perforated abdominal viscus Status: Acute (7) Sepsis Status: Acute
[2017-08-06] MEDS ORDERED: Multivitamin (MVI) 10 ML, Chromium/Copper/Manganese/Zinc 3 ML in Amino/Dex E 4.25/25 10... IV ONE (16:00)
[2017-08-06] MEDS ORDERED: Multivitamin (MVI) 10 ML, Chromium/Copper/Manganese/Zinc 3 ML in Amino/Dex E 4.25/10 10... IV ONE (16:15)
[2017-08-06] MEDS: Ferrous Sulfate 300 mg/5 mL Liq UD PO SCH (16:46)
[2017-08-06] MEDS: guaiFENesin DM 200 mg-20 mg/10 ml UD PO PRN (16:46)
[2017-08-06] MEDS: Lidocaine 5% Patch TD SCH (18:32)
--- NOTE | 2017-08-06 19:36 | CP.PCM.PN ---
Subjective - Date & Time of Evaluation Date of Evaluation: 08/06/17 Time of Evaluation: 19:33 - Subjective Subjective: Dvaian is well known to me for many years. He had recently been discharged from [facility] after recovery following joint replacement. he is on chronic narcotics for which I do not treat him. Now c/o pain following abdominal surgery with non-closure of abdominal incision On the Duragesic patch but not able to get his prn meds given low BP he is tolerating that ok, he asked for an injection but was easily able to understand why he cannot get it continue current care will try and mobilize for therapies Objective - Vital Signs/Intake and Output Vital Signs (last 24 hours): Temp Pulse Resp BP Pulse Ox 97.8 F 62 20 98/62 L 98 08/06/17 15:45 08/06/17 15:45 08/06/17 15:45 08/06/17 15:45 08/06/17 15:45 Intake and Output: 08/06/17 08/07/17 18:59 06:59 Intake Total 1140 Output Total 820 Balance 320 - Medications Medications: Current Medications Acetaminophen (Tylenol 325mg Tab) 650 mg PO Q4 PRN PRN Reason: Pain, moderate (4-7) Cyanocobalamin (Vitamin B12 1000 Mcg/Ml Inj) 1,000 mcg IM DAILY [facility] Last Admin: 08/06/17 09:54 Dose: 1,000 mcg Epoetin Mata (Procrit) 20,000 unit SC MWF [facility] Last Admin: 08/06/17 09:53 Dose: 20,000 unit Fat Emulsion Intravenous (Intralipid 20%) 250 ml IV F [facility] Last Admin: 08/06/17 09:51 Dose: 250 ml Fentanyl (Duragesic) 1 patch TD Q3D [facility] PRN Reason: Protocol Last Admin: 08/05/17 19:54 Dose: 1 patch Ferrous Sulfate (Feosol Liq) 300 mg PO BID [facility] Last Admin: 08/06/17 16:46 Dose: 300 mg Furosemide (Lasix) 20 mg IVP DAILY [facility] Last Admin: 08/06/17 10:00 Dose: 20 mg Guaifenesin/Dextromethorphan (Robitussin Dm) 10 ml PO Q6 PRN PRN Reason: Cough Last Admin: 08/06/17 16:46 Dose: 10 ml Heparin Sodium (Porcine) (Heparin) 5,000 units SC Q8 [facility] PRN Reason: Protocol Last Admin: 08/06/17 16:45 Dose: 5,000 units Fluconazole (Diflucan Iv 100 Mg/50 Ml Ns) 50 mls @ 50 mls/hr IVPB DAILY [facility] PRN Reason: Protocol Last Admin: 08/06/17 09:50 Dose: 50 mls/hr Multivitamins/Vitamin C 10 ml/Chromium/Copper/Manganese/Zinc 3 ml/ Amino Acids/ Electrolytes/Dextrose 2,013 mls @ 60 mls/hr IV .Q24H ONE Stop: 08/07/17 16:14 Last Admin: 08/06/17 18:31 Dose: 60 mls/hr Insulin Human Lispro (Humalog) 0 units SC Q6H [facility] PRN Reason: Protocol Last Admin: 08/06/17 16:47 Dose: 1 units Lidocaine (Lidoderm) 1 ea TD DAILY [facility] Last Admin: 08/06/17 18:32 Dose: 1 ea Metoprolol Tartrate (Lopressor) 50 mg PO Q12 [facility] Last Admin: 08/06/17 09:52 Dose: 50 mg Morphine Sulfate (Morphine) 8 mg IVP Q3 PRN PRN Reason: Pain, severe (8-10) Last Admin: 08/06/17 05:06 Dose: 8 mg Morphine Sulfate (Morphine) 2 mg IVP Q4 PRN PRN Reason: Pain, moderate (4-7) Last Admin: 08/06/17 12:48 Dose: 2 mg Octreotide Acetate (Sandostatin) 300 mcg SC Q8@0500,1300,2100 [facility] Last Admin: 08/06/17 12:52 Dose: 300 mcg Pantoprazole Sodium (Protonix Ec Tab) 40 mg PO DAILY [facility] Last Admin: 08/06/17 09:55 Dose: 40 mg Potassium Chloride (Potassium Chloride Oral Soln) 20 meq PO BID [facility] Last Admin: 07/23/17 09:05 Dose: Not Given - Labs Labs: 08/06/17 05:30 08/06/17 05:30 PT 15.9 Seconds (9.8-13.1) H 07/22/17 05:20 INR 1.4 (0.9-1.2) H 07/22/17 05:20 APTT 39.1 Seconds (25.6-37.1) H 07/22/17 05:20
[2017-08-07] MEDS: Morphine 5 MG/ML SYRINGE IVP PRN (01:42)
[2017-08-07] MEDS: Insulin Lispro (humaLOG) 100 Units/ml Inj SC SCH ×4 (05:01→22:42)
[2017-08-07 06:42] LABS: BLOOD UREA NITROGEN 31 mg/dl (9-20); CALCIUM 7.1 mg/dL (8.4-10.2); GFR AFRICAN-AMERICAN > 60; GFR NON-AFRICAN AMERICAN > 60
--- NOTE | 2017-08-07 07:50 | CP.PCM.PN ---
<Onur Baker - Last Filed: 08/07/17 07:47> Subjective - Date & Time of Evaluation Date of Evaluation: 08/07/17 Time of Evaluation: 07:20 - Subjective Subjective: General Surgery Progress Note- Dr. Worthy 72 y.o male seen and evaluated at bedside s/p ex-lap for perforated viscous with small bowel resection with anastomosis. Patient is seen resting comfortably in bed and NAD. Denies acute overnight events. Patient reports pain with palpation to the stomach. Patient still on TPN and tube feeds. Objective - Vital Signs/Intake and Output Vital Signs (last 24 hours): Temp Pulse Resp BP Pulse Ox 97.9 F 74 20 100/63 97 08/07/17 01:00 08/07/17 01:00 08/07/17 01:00 08/07/17 01:00 08/07/17 01:00 Intake and Output: 08/07/17 08/07/17 06:59 18:59 Intake Total 1140 Output Total 1850 Balance -710 - Medications Medications: Current Medications Acetaminophen (Tylenol 325mg Tab) 650 mg PO Q4 PRN PRN Reason: Pain, moderate (4-7) Cyanocobalamin (Vitamin B12 1000 Mcg/Ml Inj) 1,000 mcg IM DAILY [facility] Last Admin: 08/06/17 09:54 Dose: 1,000 mcg Epoetin Amta (Procrit) 20,000 unit SC MWF [facility] Last Admin: 08/06/17 09:53 Dose: 20,000 unit Fat Emulsion Intravenous (Intralipid 20%) 250 ml IV MWF [facility] Last Admin: 08/06/17 09:51 Dose: 250 ml Fentanyl (Duragesic) 1 patch TD Q3D [facility] PRN Reason: Protocol Last Admin: 08/05/17 19:54 Dose: 1 patch Ferrous Sulfate (Feosol Liq) 300 mg PO BID [facility] Last Admin: 08/06/17 16:46 Dose: 300 mg Furosemide (Lasix) 20 mg IVP DAILY [facility] Last Admin: 08/06/17 10:00 Dose: 20 mg Guaifenesin/Dextromethorphan (Robitussin Dm) 10 ml PO Q6 PRN PRN Reason: Cough Last Admin: 08/06/17 16:46 Dose: 10 ml Heparin Sodium (Porcine) (Heparin) 5,000 units SC Q8 [facility] PRN Reason: Protocol Last Admin: 08/07/17 01:50 Dose: 5,000 units Fluconazole (Diflucan Iv 100 Mg/50 Ml Ns) 50 mls @ 50 mls/hr IVPB DAILY [facility] PRN Reason: Protocol Last Admin: 08/06/17 09:50 Dose: 50 mls/hr Multivitamins/Vitamin C 10 ml/Chromium/Copper/Manganese/Zinc 3 ml/ Amino Acids/ Electrolytes/Dextrose 2,013 mls @ 60 mls/hr IV .Q24H ONE Stop: 08/07/17 16:14 Last Admin: 08/06/17 18:31 Dose: 60 mls/hr Insulin Human Lispro (Humalog) 0 units SC Q6H [facility] PRN Reason: Protocol Last Admin: 08/07/17 05:01 Dose: 1 units Lidocaine (Lidoderm) 1 ea TD DAILY [facility] Last Admin: 08/06/17 18:32 Dose: 1 ea Metoprolol Tartrate (Lopressor) 50 mg PO Q12 [facility] Last Admin: 08/06/17 21:38 Dose: Not Given Morphine Sulfate (Morphine) 8 mg IVP Q3 PRN PRN Reason: Pain, severe (8-10) Last Admin: 08/07/17 01:42 Dose: 8 mg Morphine Sulfate (Morphine) 2 mg IVP Q4 PRN PRN Reason: Pain, moderate (4-7) Last Admin: 08/06/17 21:37 Dose: 2 mg Octreotide Acetate (Sandostatin) 300 mcg SC Q8@0500,1300,2100 [facility] Last Admin: 08/07/17 04:55 Dose: 300 mcg Pantoprazole Sodium (Protonix Ec Tab) 40 mg PO DAILY [facility] Last Admin: 08/06/17 09:55 Dose: 40 mg Potassium Chloride (Potassium Chloride Oral Soln) 20 meq PO BID [facility] Last Admin: 07/23/17 09:05 Dose: Not Given - Labs Labs: 08/06/17 05:30 08/07/17 05:50 PT 15.9 Seconds (9.8-13.1) H 07/22/17 05:20 INR 1.4 (0.9-1.2) H 07/22/17 05:20 APTT 39.1 Seconds (25.6-37.1) H 07/22/17 05:20 - Constitutional Appears: Non-toxic, No Acute Distress - Eye Exam Eye Exam: EOMI, Normal appearance - ENT Exam ENT Exam: Mucous Membranes Moist - Respiratory Exam Respiratory Exam: NORMAL BREATHING PATTERN - Cardiovascular Exam Cardiovascular Exam: +S1, +S2 - GI/Abdominal Exam GI & Abdominal Exam: Soft - Neurological Exam Neurological Exam: Alert, Awake, Oriented x3 - Psychiatric Exam Psychiatric exam: Normal Mood - Skin Skin Exam: Dry, Intact, Normal Color, Warm Assessment and Plan - Assessment and Plan (Free Text) Assessment: 72M s/p ex-lap for perforated viscous with Small bowel resection with anastomosis POD#29, with post-op leak and colocutaneous fistula Plan: c/w TPN c/w tube feeds monitor fistula output further recs per Dr. Worthy <Mook Worthy - Last Filed: 08/10/17 17:33> Objective - Vital Signs/Intake and Output Vital Signs (last 24 hours): Temp Pulse Resp BP Pulse Ox 98.2 F 86 20 120/72 98 08/10/17 17:17 08/10/17 17:17 08/10/17 17:17 08/10/17 17:17 08/10/17 17:17 - Medications Medications: Current Medications Acetaminophen (Tylenol 325mg Tab) 650 mg PO Q4 PRN PRN Reason: Pain, moderate (4-7) Last Admin: 08/08/17 09:19 Dose: 650 mg Bisacodyl (Dulcolax) 10 mg ME DAILY PRN PRN Reason: Constipation Last Admin: 08/07/17 14:18 Dose: 10 mg Cyanocobalamin (Vitamin B12 1000 Mcg Tab) 1,000 mcg PO DAILY [facility] Last Admin: 08/10/17 08:20 Dose: 1,000 mcg Cyclobenzaprine HCl (Flexeril) 10 mg PO Q12 [facility] Last Admin: 08/10/17 08:18 Dose: 10 mg Epoetin Mata (Procrit) 20,000 unit SC MWF [facility] Last Admin: 08/10/17 09:13 Dose: 20,000 unit Ferrous Sulfate (Feosol Liq) 300 mg PO BID [facility] Last Admin: 08/10/17 17:05 Dose: 300 mg Furosemide (Lasix) 20 mg IVP DAILY [facility] Last Admin: 08/10/17 08:18 Dose: 20 mg Guaifenesin/Dextromethorphan (Robitussin Dm) 10 ml PO Q6 PRN PRN Reason: Cough Last Admin: 08/07/17 08:34 Dose: 10 ml Heparin Sodium (Porcine) (Heparin) 5,000 units SC Q8 [facility] PRN Reason: Protocol Last Admin: 08/10/17 17:03 Dose: 5,000 units Fluconazole (Diflucan Iv 100 Mg/50 Ml Ns) 50 mls @ 50 mls/hr IVPB DAILY [facility] PRN Reason: Protocol Last Admin: 08/10/17 08:18 Dose: 50 mls/hr Piperacillin Sod/Tazobactam (Sod 3.375 gm/ Sodium Chloride) 100 mls @ 100 mls/ hr IVPB Q8@0100,0900,1700 [facility] PRN Reason: Protocol Last Admin: 08/10/17 17:03 Dose: 100 mls/hr Fat Emulsion Intravenous (Intralipid 20%) 250 mls @ 0 mls/hr IV .Q0M [facility] PRN Reason: UD Stop: 08/11/17 09:01 Last Admin: 08/10/17 15:13 Dose: 250 mls/hr Chromium/Copper/Manganese/Zinc 3 ml/ Multivitamins/Vitamin C 10 ml/ Amino Acids/ Electrolytes/Dextrose 2,013 mls @ 90 mls/hr IV .[id number] ONE Stop: 08/11/17 13:36 Insulin Human Lispro (Humalog) 0 units SC Q6H [facility] PRN Reason: Protocol Last Admin: 08/10/17 17:04 Dose: 3 units Lidocaine (Lidoderm) 1 ea TD DAILY [facility] Last Admin: 08/10/17 08:19 Dose: 1 ea Metoprolol Tartrate (Lopressor) 50 mg PO Q12 [facility] Last Admin: 08/10/17 08:19 Dose: 50 mg Pantoprazole Sodium (Protonix Ec Tab) 40 mg PO DAILY [facility] Last Admin: 08/10/17 08:20 Dose: 40 mg Tramadol HCl (Ultram) 50 mg PO Q6 PRN PRN Reason: Pain, moderate (4-7) Last Admin: 08/10/17 14:41 Dose: 50 mg - Labs Labs: 08/09/17 08:32 08/10/17 06:25 PT 13.2 Seconds (9.8-13.1) H 08/07/17 14:20 INR 1.2 (0.9-1.2) 08/07/17 14:20 APTT 39.1 Seconds (25.6-37.1) H 07/22/17 05:20 Attending/Attestation - Attestation I have personally seen and examined this patient.: Yes I have fully participated in the care of the patient.: Yes I have reviewed all pertinent clinical information, including history, physical exam and plan: Yes Notes (Text): Pt was seen and examined at bedside Agree with above note and assessment Pt is improving clinically C.w TPN, stop tube feeds Repeat Prealbumin c.w current mx Plan d.w pt in detail
[2017-08-07] MEDS: Ferrous Sulfate 300 mg/5 mL Liq UD PO SCH ×2 (08:31→18:33)
[2017-08-07] MEDS: Fluconazole IV 100mg/50 ml NS 50 ML IVPB SCH (08:31)
[2017-08-07] MEDS: Lidocaine 5% Patch TD SCH (08:32)
[2017-08-07] MEDS: Pantoprazole 40 mg EC Tab PO SCH (08:33)
[2017-08-07] MEDS: guaiFENesin DM 200 mg-20 mg/10 ml UD PO PRN (08:34)
[2017-08-07] MEDS ORDERED: DEXTROSE IV SCH (09:00)
[2017-08-07] MEDS ORDERED: AMINO ACIDS IV SCH (09:00)
[2017-08-07] MEDS ORDERED: ELECTROLYTES IV SCH (09:00)
--- NOTE | 2017-08-07 10:41 | CP.PCM.PN ---
Subjective - Date & Time of Evaluation Date of Evaluation: 08/07/17 Time of Evaluation: 07:00 - Subjective Subjective: s/p ex-lap for perforated viscous with small bowel resection with anastomosis. Patient is seen resting comfortably in bed and NAD. Denies acute overnight events. Patient reports pain with palpation to the stomach. Patient still on TPN and tube feeds. Objective - Vital Signs/Intake and Output Vital Signs (last 24 hours): Temp Pulse Resp BP Pulse Ox 97.7 F 71 19 94/59 L 99 08/07/17 08:07 08/07/17 08:56 08/07/17 08:07 08/07/17 09:00 08/07/17 08:07 Intake and Output: 08/07/17 08/07/17 06:59 18:59 Intake Total 1140 Output Total 1850 Balance -710 - Medications Medications: Current Medications Acetaminophen (Tylenol 325mg Tab) 650 mg PO Q4 PRN PRN Reason: Pain, moderate (4-7) Last Admin: 08/07/17 08:30 Dose: 650 mg Cyanocobalamin (Vitamin B12 1000 Mcg/Ml Inj) 1,000 mcg IM DAILY [facility] Last Admin: 08/07/17 09:01 Dose: 1,000 mcg Epoetin Mata (Procrit) 20,000 unit SC MWF [facility] Last Admin: 08/06/17 09:53 Dose: 20,000 unit Fat Emulsion Intravenous (Intralipid 20%) 250 ml IV MWF [facility] Last Admin: 08/06/17 09:51 Dose: 250 ml Fentanyl (Duragesic) 1 patch TD Q3D [facility] PRN Reason: Protocol Last Admin: 08/05/17 19:54 Dose: 1 patch Ferrous Sulfate (Feosol Liq) 300 mg PO BID [facility] Last Admin: 08/07/17 08:31 Dose: 300 mg Furosemide (Lasix) 20 mg IVP DAILY [facility] Last Admin: 08/07/17 09:00 Dose: Not Given Guaifenesin/Dextromethorphan (Robitussin Dm) 10 ml PO Q6 PRN PRN Reason: Cough Last Admin: 08/07/17 08:34 Dose: 10 ml Heparin Sodium (Porcine) (Heparin) 5,000 units SC Q8 [facility] PRN Reason: Protocol Last Admin: 08/07/17 08:31 Dose: 5,000 units Fluconazole (Diflucan Iv 100 Mg/50 Ml Ns) 50 mls @ 50 mls/hr IVPB DAILY [facility] PRN Reason: Protocol Last Admin: 08/07/17 08:31 Dose: 50 mls/hr Multivitamins/Vitamin C 10 ml/Chromium/Copper/Manganese/Zinc 3 ml/ Amino Acids/ Electrolytes/Dextrose 2,013 mls @ 60 mls/hr IV .Q24H ONE Stop: 08/07/17 16:14 Last Admin: 08/06/17 18:31 Dose: 60 mls/hr Insulin Human Lispro (Humalog) 0 units SC Q6H [facility] PRN Reason: Protocol Last Admin: 08/07/17 05:01 Dose: 1 units Lidocaine (Lidoderm) 1 ea TD DAILY [facility] Last Admin: 08/07/17 08:32 Dose: 1 ea Metoprolol Tartrate (Lopressor) 50 mg PO Q12 [facility] Last Admin: 08/07/17 08:56 Dose: Not Given Morphine Sulfate (Morphine) 8 mg IVP Q3 PRN PRN Reason: Pain, severe (8-10) Last Admin: 08/07/17 01:42 Dose: 8 mg Morphine Sulfate (Morphine) 2 mg IVP Q4 PRN PRN Reason: Pain, moderate (4-7) Last Admin: 08/06/17 21:37 Dose: 2 mg Octreotide Acetate (Sandostatin) 300 mcg SC Q8@0500,1300,2100 [facility] Last Admin: 08/07/17 04:55 Dose: 300 mcg Pantoprazole Sodium (Protonix Ec Tab) 40 mg PO DAILY [facility] Last Admin: 08/07/17 08:33 Dose: 40 mg Potassium Chloride (Potassium Chloride Oral Soln) 20 meq PO BID [facility] Last Admin: 07/23/17 09:05 Dose: Not Given - Labs Labs: 08/06/17 05:30 08/07/17 05:50 PT 15.9 Seconds (9.8-13.1) H 07/22/17 05:20 INR 1.4 (0.9-1.2) H 07/22/17 05:20 APTT 39.1 Seconds (25.6-37.1) H 07/22/17 05:20 - Constitutional Appears: Non-toxic, Cachectic, Chronically Ill - Head Exam Head Exam: NORMOCEPHALIC - Eye Exam Eye Exam: PERRL. absent: Scleral icterus - ENT Exam ENT Exam: Mucous Membranes Dry - Neck Exam Neck Exam: absent: Lymphadenopathy - Respiratory Exam Respiratory Exam: Decreased Breath Sounds - Cardiovascular Exam Cardiovascular Exam: REGULAR RHYTHM - GI/Abdominal Exam GI & Abdominal Exam: Distended, Tenderness - Rectal Exam Rectal Exam: Deferred Assessment and Plan (1) Abdominal pain Status: Acute (2) COPD (chronic obstructive pulmonary disease) Status: Acute (3) Essential (primary) hypertension Status: Acute (4) Hx of atrial fibrillation, no current medication Status: Acute (5) Intestinal perforation Status: Acute (6) Perforated abdominal viscus Status: Acute (7) Sepsis Status: Acute - Assessment and Plan (Free Text) Assessment: s/p ex-lap for perforated viscous with small bowel resection with anastomosis. Patient is seen resting comfortably in bed and NAD. Denies acute overnight events. Patient reports pain with palpation to the stomach. Patient still on TPN and tube feeds.
--- NOTE | 2017-08-07 14:37 | CP.PCM.PN ---
<Willard Akhtar - Last Filed: 08/07/17 14:34> Subjective - Date & Time of Evaluation Date of Evaluation: 08/07/17 Time of Evaluation: 09:00 - Subjective Subjective: Patient seen and examined this morning at bedside. There are no acute events overnight, NAD. Patient is POD29. Patient reports pain is slightly improved w / fentanyl patch but still has a lot pain w/ movement. Patient on pulmonary sport bed. Patient tolerating TPN and increased tube feeding Objective - Vital Signs/Intake and Output Vital Signs (last 24 hours): Temp Pulse Resp BP Pulse Ox 97.7 F 71 19 94/59 L 99 08/07/17 08:07 08/07/17 08:56 08/07/17 08:07 08/07/17 09:00 08/07/17 08:07 Intake and Output: 08/07/17 08/07/17 06:59 18:59 Intake Total 1140 Output Total 1850 Balance -710 - Medications Medications: Current Medications Acetaminophen (Tylenol 325mg Tab) 650 mg PO Q4 PRN PRN Reason: Pain, moderate (4-7) Last Admin: 08/07/17 08:30 Dose: 650 mg Bisacodyl (Dulcolax) [address] DAILY PRN PRN Reason: Constipation Last Admin: 08/07/17 14:18 Dose: 10 mg Cyanocobalamin (Vitamin B12 1000 Mcg/Ml Inj) 1,000 mcg IM DAILY [facility] Last Admin: 08/07/17 09:01 Dose: 1,000 mcg Epoetin Karolyn (Procrit) 20,000 unit SC F [facility] Last Admin: 08/06/17 09:53 Dose: 20,000 unit Fat Emulsion Intravenous (Intralipid 20%) 250 ml IV MWF [facility] Last Admin: 08/06/17 09:51 Dose: 250 ml Fentanyl (Duragesic) 1 patch TD Q3D [facility] PRN Reason: Protocol Last Admin: 08/07/17 12:41 Dose: 1 patch Ferrous Sulfate (Feosol Liq) 300 mg PO BID [facility] Last Admin: 08/07/17 08:31 Dose: 300 mg Furosemide (Lasix) 20 mg IVP DAILY [facility] Last Admin: 08/07/17 09:00 Dose: Not Given Guaifenesin/Dextromethorphan (Robitussin Dm) 10 ml PO Q6 PRN PRN Reason: Cough Last Admin: 08/07/17 08:34 Dose: 10 ml Heparin Sodium (Porcine) (Heparin) 5,000 units SC Q8 [facility] PRN Reason: Protocol Last Admin: 08/07/17 08:31 Dose: 5,000 units Fluconazole (Diflucan Iv 100 Mg/50 Ml Ns) 50 mls @ 50 mls/hr IVPB DAILY [facility] PRN Reason: Protocol Last Admin: 08/07/17 08:31 Dose: 50 mls/hr Multivitamins/Vitamin C 10 ml/Chromium/Copper/Manganese/Zinc 3 ml/ Amino Acids/ Electrolytes/Dextrose 2,013 mls @ 60 mls/hr IV .Q24H ONE Stop: 08/07/17 16:14 Last Admin: 08/06/17 18:31 Dose: 60 mls/hr Insulin Human Lispro (Humalog) 0 units SC Q6H [facility] PRN Reason: Protocol Last Admin: 08/07/17 12:45 Dose: 1 units Lidocaine (Lidoderm) 1 ea TD DAILY [facility] Last Admin: 08/07/17 08:32 Dose: 1 ea Metoprolol Tartrate (Lopressor) 50 mg PO Q12 [facility] Last Admin: 08/07/17 08:56 Dose: Not Given Morphine Sulfate (Morphine) 8 mg IVP Q3 PRN PRN Reason: Pain, severe (8-10) Last Admin: 08/07/17 01:42 Dose: 8 mg Morphine Sulfate (Morphine) 2 mg IVP Q4 PRN PRN Reason: Pain, moderate (4-7) Last Admin: 08/06/17 21:37 Dose: 2 mg Pantoprazole Sodium (Protonix Ec Tab) 40 mg PO DAILY [facility] Last Admin: 08/07/17 08:33 Dose: 40 mg Potassium Chloride (Potassium Chloride Oral Soln) 20 meq PO BID [facility] Last Admin: 07/23/17 09:05 Dose: Not Given - Labs Labs: 08/06/17 05:30 08/07/17 05:50 PT 15.9 Seconds (9.8-13.1) H 07/22/17 05:20 INR 1.4 (0.9-1.2) H 07/22/17 05:20 APTT 39.1 Seconds (25.6-37.1) H 03/25/18 05:20 - Constitutional Appears: No Acute Distress - Head Exam Head Exam: ATRAUMATIC, NORMAL INSPECTION, NORMOCEPHALIC - Eye Exam Eye Exam: Normal appearance - ENT Exam ENT Exam: Mucous Membranes Moist - Respiratory Exam Respiratory Exam: Clear to Ausculation Bilateral. absent: Accessory Muscle Use , Decreased Breath Sounds, Rales, Rhonchi, Wheezes, Respiratory Distress - Cardiovascular Exam Cardiovascular Exam: REGULAR RHYTHM. absent: Tachycardia - GI/Abdominal Exam GI & Abdominal Exam: Soft, Tenderness Additional comments: Abdominal steffi, with colostomy bags x2 from upper middle quadrant and lower quadrant of the abdomen with dark green drainage - Extremities Exam Extremities Exam: absent: Calf Tenderness, Pedal Edema - Neurological Exam Neurological Exam: Alert, Awake - Skin Skin Exam: Dry, Intact. absent: Rash Assessment and Plan (1) Abdominal pain Status: Acute (2) Abscess Status: Acute (3) Atrial fibrillation Status: Acute (4) COPD (chronic obstructive pulmonary disease) Status: Acute (5) Essential (primary) hypertension Status: Acute (6) Hx of atrial fibrillation, no current medication Status: Acute (7) Intestinal perforation Status: Acute (8) Perforated abdominal viscus Status: Acute (9) Thrombocytopenia Status: Acute (10) Anemia Status: Acute - Assessment and Plan (Free Text) Plan: c/w present management. s/p ex-lap for perforated viscous with Small bowel resection with anastomosis, with post-op leak and EC fistula; POD 29 Surgery recommendations appreciated heme/onc recommendations appreciated pain management recommendations appreciated infectious disease recommendations appreciated diflucan 100 mg IV daily day 3 TPN @ 60 mL/h tube feeds increased to 30mL/h pain management: morphine 8 mg IV Q3h prn, morphine 2 mg IV Q4h prn, fentanyl patch 75 mcg Q3d c/w epoetin kaorlyn c/w pulmonary sport bed DVT PPX: heparin 5000 SC Q8h <Bronson Castaneda - Last Filed: 08/08/17 22:22> Objective - Vital Signs/Intake and Output Vital Signs (last 24 hours): Temp Pulse Resp BP Pulse Ox 98.3 F 68 20 111/66 97 08/08/17 17:00 08/08/17 21:33 08/08/17 16:44 08/08/17 21:33 08/08/17 16:44 - Medications Medications: Current Medications Acetaminophen (Tylenol 325mg Tab) 650 mg PO Q4 PRN PRN Reason: Pain, moderate (4-7) Last Admin: 08/08/17 09:19 Dose: 650 mg Bisacodyl (Dulcolax) [address] DAILY PRN PRN Reason: Constipation Last Admin: 08/07/17 14:18 Dose: 10 mg Cyanocobalamin (Vitamin B12 1000 Mcg Tab) 1,000 mcg PO DAILY [facility] Epoetin Karolyn (Procrit) 20,000 unit SC MWF [facility] Last Admin: 08/08/17 09:19 Dose: 20,000 unit Ferrous Sulfate (Feosol Liq) 300 mg PO BID [facility] Last Admin: 08/08/17 17:02 Dose: 300 mg Furosemide (Lasix) 20 mg IVP DAILY [facility] Last Admin: 08/08/17 09:17 Dose: 20 mg Guaifenesin/Dextromethorphan (Robitussin Dm) 10 ml PO Q6 PRN PRN Reason: Cough Last Admin: 08/07/17 08:34 Dose: 10 ml Heparin Sodium (Porcine) (Heparin) 5,000 units SC Q8 [facility] PRN Reason: Protocol Last Admin: 08/08/17 17:03 Dose: 5,000 units Fluconazole (Diflucan Iv 100 Mg/50 Ml Ns) 50 mls @ 50 mls/hr IVPB DAILY [facility] PRN Reason: Protocol Last Admin: 08/08/17 15:28 Dose: 50 mls/hr Multivitamins/Vitamin C 10 ml/Chromium/Copper/Manganese/Zinc 3 ml/ Amino Acids/ Electrolytes/Dextrose 2,013 mls @ 65 mls/hr IV .Q24H ONE Stop: 08/09/17 16:29 Piperacillin Sod/Tazobactam (Sod 3.375 gm/ Sodium Chloride) 100 mls @ 100 mls/ hr IVPB Q8@0100,0900,1700 [facility] PRN Reason: Protocol Last Admin: 08/08/17 18:55 Dose: Not Given Insulin Human Lispro (Humalog) 0 units SC Q6H [facility] PRN Reason: Protocol Last Admin: 08/08/17 17:02 Dose: 1 units Lidocaine (Lidoderm) 1 ea TD DAILY [facility] Last Admin: 08/08/17 09:18 Dose: 1 ea Metoprolol Tartrate (Lopressor) 50 mg PO Q12 [facility] Last Admin: 08/08/17 21:33 Dose: 50 mg Pantoprazole Sodium (Protonix Ec Tab) 40 mg PO DAILY [facility] Last Admin: 08/08/17 09:19 Dose: 40 mg - Labs Labs: 08/08/17 10:17 08/08/17 10:50 PT 13.2 Seconds (9.8-13.1) H 08/07/17 14:20 INR 1.2 (0.9-1.2) 08/07/17 14:20 APTT 39.1 Seconds (25.6-37.1) H 07/22/17 05:20 Assessment and Plan (1) Abdominal pain Status: Acute (2) COPD (chronic obstructive pulmonary disease) Status: Acute (3) Essential (primary) hypertension Status: Acute (4) Hx of atrial fibrillation, no current medication Status: Acute (5) Intestinal perforation Status: Acute (6) Perforated abdominal viscus Status: Acute (7) Atrial fibrillation Status: Acute (8) Anemia Status: Acute (9) Thrombocytopenia Status: Acute (10) Abscess Status: Acute - Assessment and Plan (Free Text) Plan: I was present during evaluation and discussed with Dr Akhtar re plans of care and mgt. Bronson Castaneda M.D.
[2017-08-07 14:51] LABS: INR 1.2 (0.9-1.2); PROTHROMBIN TIME 13.2 Seconds (9.8-13.1)
[2017-08-07] MEDS ORDERED: Lidocaine Hydrochloride 1% 10 ML ONE (15:05)
[2017-08-07] MEDS ORDERED: Midazolam 2 MG/2 ML VIAL ONE (15:11)
[2017-08-07] MEDS ORDERED: Multivitamin (MVI) 10 ML, Chromium/Copper/Manganese/Zinc 3 ML in Amino/Dex E 4.25/10 10... IV ONE (15:15)
[2017-08-07] MEDS ORDERED: Sodium Chloride 0.9% 200 ML ONE (15:30)
--- NOTE | 2017-08-07 16:04 | PCM.SURG1 ---
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
[2017-08-07] MEDS ORDERED: Morphine 4 MG/ML VIAL ONE (16:31)
[2017-08-08] MEDS: Insulin Lispro (humaLOG) 100 Units/ml Inj SC SCH ×4 (05:30→22:37)
[2017-08-08] MEDS: Ferrous Sulfate 300 mg/5 mL Liq UD PO SCH ×2 (09:16→17:02)
[2017-08-08] MEDS: Lidocaine 5% Patch TD SCH (09:18)
[2017-08-08] MEDS: Epoetin Alfa 20000 UNIT/ML Inj SC SCH (09:19)
[2017-08-08] MEDS: Pantoprazole 40 mg EC Tab PO SCH (09:19)
--- NOTE | 2017-08-08 09:24 | CT ---
PROCEDURE: CT-GUIDED PELVIC FLUID DRAINAGE CLINICAL HISTORY: 72-year-old male status post bowel injury with enterocutaneous fistula and peripherally enhancing pelvic fluid is referred to Interventional Radiology for percutaneous pelvic fluid drainage. COMPARISON: CT scan of the abdomen and pelvis dated 08/02/2017. PROCEDURE: 1. Focused CT of the pelvis. 2. CT-guided pelvic fluid drainage. PRE-PROCEDURE FINDINGS: 1. Limited evaluation due to streak artifact from bilateral hip prostheses. Loculated fluid in the pelvis. POST-PROCEDURE FINDINGS: 1. No evidence of post-procedural complication. INTERVENTIONAL RADIOLOGIST: Scott Smith M.D. (the attending was present for the entire procedure) ANESTHESIA: Provided by the attending anesthesiologist. Sedation was supervised by the anesthesiology attending with the presence of independent radiology nursing monitoring. Physiological data monitoring was performed throughout the entire procedure. The patient's blood pressure, EKG and pulse oximetry were recorded. The patient tolerated the procedure and sedation without untoward reactions. The intra-procedural sedation time was 20 minutes. MEDICATIONS: Lidocaine 1% for local subcutaneous analgesia. See anesthesia record for sedation medications. COMPLICATIONS: None. PROCEDURE DESCRIPTION AND FINDINGS: The risks, benefits, alternatives and possible complications of the procedure were fully discussed; all questions were answered and informed consent was obtained. The patient was brought into the interventional suite and a pre-procedure 'time-out' was performed. The patient was placed on the CT table in the prone position. The fluid collection was localized under CT-guidance and a laurita was made on the overlying skin. The right gluteal region was prepped and draped in the usual sterile fashion. Maximum sterile barrier precautions were maintained throughout the entire procedure. Preliminary focused CT images of the pelvis again demonstrate loculated fluid in the pelvis with limited evaluation due to streak artifact from bilateral hip prostheses. Following subcutaneous infiltration of lidocaine 1% for local analgesia, under CT-guidance, an 18-gauge trocar needle was advanced into the pelvic fluid. A capsule was felt to be present around the fluid based on tactile sensation. An 0.035 guidewire was looped within the collection and optimal position was confirmed with CT imaging. After serial dilatation, an 8 [place] all purpose drainage pigtail catheter was advanced over the guidewire into the collection. Approximately 6 mL of mixed thick and thin serosanguineous fluid was aspirated and a sample was sent to microbiology for culture and sensitivity. Post-procedure imaging demonstrated decompression of the fluid collection post pigtail catheter placement without evidence of complications. The catheter was secured to the skin utilizing a 2-0 Prolene suture as well as a sterile adhesive bandage and left to external gravity bag drainage. The patient tolerated the procedure well without immediate post-procedure complications and was transferred back to the floor in stable condition. IMPRESSION: Successful CT-guided drainage of loculated pelvic fluid with placement of 8 [place] all purpose drainage pigtail catheter within the collection.
[2017-08-08 10:21] LABS: HEMOGLOBIN 9.5 g/dL (12.0-18.0); MEAN CELL VOLUME 97.9 fl (80.0-94.0); MEAN CORPUSCULAR HEMOGLOBIN 32.3 pg (27.0-31.0); RBC 2.94 Mil/uL (4.40-5.90); RED CELL DISTRIBUTION WIDTH 16.8 % (11.5-14.5); WHITE BLOOD COUNT 3.2 K/uL (4.8-10.8)
[2017-08-08 10:46] LABS: BLOOD UREA NITROGEN 27 mg/dl (9-20); CALCIUM 7.2 mg/dL (8.4-10.2); GFR AFRICAN-AMERICAN > 60; GFR NON-AFRICAN AMERICAN > 60
--- NOTE | 2017-08-08 12:11 | CP.PCM.PN ---
Subjective - Date & Time of Evaluation Date of Evaluation: 08/08/17 Time of Evaluation: 09:00 - Subjective Subjective: events noted went for drainage of collection iv rx in progress await cultures Objective - Vital Signs/Intake and Output Vital Signs (last 24 hours): Temp Pulse Resp BP Pulse Ox 97.4 F L 78 18 107/65 96 08/08/17 09:00 08/08/17 09:18 08/08/17 09:00 08/08/17 09:18 08/08/17 09:00 Intake and Output: 08/08/17 08/08/17 06:59 18:59 Intake Total 650 Output Total 1500 Balance -850 - Medications Medications: Current Medications Acetaminophen (Tylenol 325mg Tab) 650 mg PO Q4 PRN PRN Reason: Pain, moderate (4-7) Last Admin: 08/08/17 09:19 Dose: 650 mg Bisacodyl (Dulcolax) 10 mg UT DAILY PRN PRN Reason: Constipation Last Admin: 08/07/17 14:18 Dose: 10 mg Cyanocobalamin (Vitamin B12 1000 Mcg/Ml Inj) 1,000 mcg IM DAILY [facility] Last Admin: 08/08/17 09:19 Dose: 1,000 mcg Epoetin Mata (Procrit) 20,000 unit SC MWF [facility] Last Admin: 08/08/17 09:19 Dose: 20,000 unit Ferrous Sulfate (Feosol Liq) 300 mg PO BID [facility] Last Admin: 08/08/17 09:16 Dose: 300 mg Furosemide (Lasix) 20 mg IVP DAILY [facility] Last Admin: 08/08/17 09:17 Dose: 20 mg Guaifenesin/Dextromethorphan (Robitussin Dm) 10 ml PO Q6 PRN PRN Reason: Cough Last Admin: 08/07/17 08:34 Dose: 10 ml Heparin Sodium (Porcine) (Heparin) 5,000 units SC Q8 [facility] PRN Reason: Protocol Last Admin: 08/08/17 09:16 Dose: 5,000 units Fluconazole (Diflucan Iv 100 Mg/50 Ml Ns) 50 mls @ 50 mls/hr IVPB DAILY [facility] PRN Reason: Protocol Last Admin: 08/07/17 08:31 Dose: 50 mls/hr Multivitamins/Vitamin C 10 ml/Chromium/Copper/Manganese/Zinc 3 ml/ Amino Acids/ Electrolytes/Dextrose 2,013 mls @ 65 mls/hr IV .Q24H ONE Stop: 08/08/17 15:14 Last Admin: 08/07/17 18:33 Dose: 65 mls/hr Insulin Human Lispro (Humalog) 0 units SC Q6H [facility] PRN Reason: Protocol Last Admin: 08/08/17 05:30 Dose: 1 units Lidocaine (Lidoderm) 1 ea TD DAILY [facility] Last Admin: 08/08/17 09:18 Dose: 1 ea Metoprolol Tartrate (Lopressor) 50 mg PO Q12 [facility] Last Admin: 08/08/17 09:18 Dose: 50 mg Pantoprazole Sodium (Protonix Ec Tab) 40 mg PO DAILY [facility] Last Admin: 08/08/17 09:19 Dose: 40 mg - Labs Labs: 08/08/17 10:17 08/08/17 10:17 PT 13.2 Seconds (9.8-13.1) H 08/07/17 14:20 INR 1.2 (0.9-1.2) 08/07/17 14:20 APTT 39.1 Seconds (25.6-37.1) H 07/22/17 05:20 - Constitutional Appears: Non-toxic, Chronically Ill - Head Exam Head Exam: NORMOCEPHALIC - Eye Exam Eye Exam: PERRL. absent: Scleral icterus - ENT Exam ENT Exam: Mucous Membranes Dry - Neck Exam Neck Exam: absent: Lymphadenopathy - Respiratory Exam Respiratory Exam: Decreased Breath Sounds - Cardiovascular Exam Cardiovascular Exam: REGULAR RHYTHM - GI/Abdominal Exam GI & Abdominal Exam: Distended, Guarding, Tenderness Assessment and Plan (1) Abdominal pain Status: Acute (2) COPD (chronic obstructive pulmonary disease) Status: Acute (3) Essential (primary) hypertension Status: Acute (4) Hx of atrial fibrillation, no current medication Status: Acute (5) Intestinal perforation Status: Acute (6) Perforated abdominal viscus Status: Acute (7) Sepsis Status: Acute
[2017-08-08] MEDS ORDERED: Piperacillin/Tazobact 3.375 GM in Sodium Chloride 0.9% 100 ML IVPB SCH (12:15)
--- NOTE | 2017-08-08 12:25 | CP.PCM.PN ---
Subjective - Date & Time of Evaluation Date of Evaluation: 08/06/17 Time of Evaluation: 09:30 - Subjective Subjective: Has abdominal pain. Objective - Vital Signs/Intake and Output Vital Signs (last 24 hours): Temp Pulse Resp BP Pulse Ox 97.4 F L 78 18 107/65 96 08/08/17 09:00 08/08/17 09:18 08/08/17 09:00 08/08/17 09:18 08/08/17 09:00 Intake and Output: 08/08/17 08/08/17 06:59 18:59 Intake Total 650 Output Total 1500 Balance -850 - Medications Medications: Current Medications Acetaminophen (Tylenol 325mg Tab) 650 mg PO Q4 PRN PRN Reason: Pain, moderate (4-7) Last Admin: 08/08/17 09:19 Dose: 650 mg Bisacodyl (Dulcolax) 10 mg SC DAILY PRN PRN Reason: Constipation Last Admin: 08/07/17 14:18 Dose: 10 mg Cyanocobalamin (Vitamin B12 1000 Mcg/Ml Inj) 1,000 mcg IM DAILY [facility] Last Admin: 08/08/17 09:19 Dose: 1,000 mcg Epoetin Mata (Procrit) 20,000 unit SC MWF [facility] Last Admin: 08/08/17 09:19 Dose: 20,000 unit Ferrous Sulfate (Feosol Liq) 300 mg PO BID [facility] Last Admin: 08/08/17 09:16 Dose: 300 mg Furosemide (Lasix) 20 mg IVP DAILY [facility] Last Admin: 08/08/17 09:17 Dose: 20 mg Guaifenesin/Dextromethorphan (Robitussin Dm) 10 ml PO Q6 PRN PRN Reason: Cough Last Admin: 08/07/17 08:34 Dose: 10 ml Heparin Sodium (Porcine) (Heparin) 5,000 units SC Q8 [facility] PRN Reason: Protocol Last Admin: 08/08/17 09:16 Dose: 5,000 units Fluconazole (Diflucan Iv 100 Mg/50 Ml Ns) 50 mls @ 50 mls/hr IVPB DAILY [facility] PRN Reason: Protocol Last Admin: 08/07/17 08:31 Dose: 50 mls/hr Multivitamins/Vitamin C 10 ml/Chromium/Copper/Manganese/Zinc 3 ml/ Amino Acids/ Electrolytes/Dextrose 2,013 mls @ 65 mls/hr IV .Q24H ONE Stop: 08/08/17 15:14 Last Admin: 08/07/17 18:33 Dose: 65 mls/hr Piperacillin Sod/Tazobactam (Sod 3.375 gm/ Sodium Chloride) 100 mls @ 100 mls/ hr IVPB Q8H [facility] PRN Reason: Protocol Insulin Human Lispro (Humalog) 0 units SC Q6H [facility] PRN Reason: Protocol Last Admin: 08/08/17 05:30 Dose: 1 units Lidocaine (Lidoderm) 1 ea TD DAILY [facility] Last Admin: 08/08/17 09:18 Dose: 1 ea Metoprolol Tartrate (Lopressor) 50 mg PO Q12 [facility] Last Admin: 08/08/17 09:18 Dose: 50 mg Pantoprazole Sodium (Protonix Ec Tab) 40 mg PO DAILY [facility] Last Admin: 08/08/17 09:19 Dose: 40 mg - Labs Labs: 08/08/17 10:17 08/08/17 10:17 PT 13.2 Seconds (9.8-13.1) H 08/07/17 14:20 INR 1.2 (0.9-1.2) 08/07/17 14:20 APTT 39.1 Seconds (25.6-37.1) H 07/22/17 05:20 - Head Exam Head Exam: ATRAUMATIC - Eye Exam Eye Exam: Normal appearance - ENT Exam ENT Exam: Mucous Membranes Dry - Respiratory Exam Respiratory Exam: NORMAL BREATHING PATTERN - Cardiovascular Exam Cardiovascular Exam: +S1, +S2 - GI/Abdominal Exam GI & Abdominal Exam: Normal Bowel Sounds Assessment and Plan (1) Pancytopenia Assessment & Plan: mild leukopenia H/H improved s/p 2U PRBC on Procrit plt count stabilized Status: Acute
--- NOTE | 2017-08-08 12:26 | CP.PCM.PN ---
<Adelfo Hummel - Last Filed: 08/08/17 12:27> Subjective - Date & Time of Evaluation Date of Evaluation: 08/08/17 Time of Evaluation: 10:30 - Subjective Subjective: Patient seen and examined. No acute events over night. Ostomy bag changed by wound care. Patient has been out of bed with 2 person assist. Objective - Vital Signs/Intake and Output Vital Signs (last 24 hours): Temp Pulse Resp BP Pulse Ox 97.4 F L 78 18 107/65 96 08/08/17 09:00 08/08/17 09:18 08/08/17 09:00 08/08/17 09:18 08/08/17 09:00 Intake and Output: 08/08/17 08/08/17 06:59 18:59 Intake Total 650 Output Total 1500 Balance -850 - Medications Medications: Current Medications Acetaminophen (Tylenol 325mg Tab) 650 mg PO Q4 PRN PRN Reason: Pain, moderate (4-7) Last Admin: 08/08/17 09:19 Dose: 650 mg Bisacodyl (Dulcolax) 10 mg IN DAILY PRN PRN Reason: Constipation Last Admin: 08/07/17 14:18 Dose: 10 mg Cyanocobalamin (Vitamin B12 1000 Mcg/Ml Inj) 1,000 mcg IM DAILY [facility] Last Admin: 08/08/17 09:19 Dose: 1,000 mcg Epoetin Mata (Procrit) 20,000 unit SC MWF [facility] Last Admin: 08/08/17 09:19 Dose: 20,000 unit Ferrous Sulfate (Feosol Liq) 300 mg PO BID [facility] Last Admin: 08/08/17 09:16 Dose: 300 mg Furosemide (Lasix) 20 mg IVP DAILY [facility] Last Admin: 08/08/17 09:17 Dose: 20 mg Guaifenesin/Dextromethorphan (Robitussin Dm) 10 ml PO Q6 PRN PRN Reason: Cough Last Admin: 08/07/17 08:34 Dose: 10 ml Heparin Sodium (Porcine) (Heparin) 5,000 units SC Q8 [facility] PRN Reason: Protocol Last Admin: 08/08/17 09:16 Dose: 5,000 units Fluconazole (Diflucan Iv 100 Mg/50 Ml Ns) 50 mls @ 50 mls/hr IVPB DAILY [facility] PRN Reason: Protocol Last Admin: 08/07/17 08:31 Dose: 50 mls/hr Multivitamins/Vitamin C 10 ml/Chromium/Copper/Manganese/Zinc 3 ml/ Amino Acids/ Electrolytes/Dextrose 2,013 mls @ 65 mls/hr IV .Q24H ONE Stop: 08/08/17 15:14 Last Admin: 08/07/17 18:33 Dose: 65 mls/hr Piperacillin Sod/Tazobactam (Sod 3.375 gm/ Sodium Chloride) 100 mls @ 100 mls/ hr IVPB Q8H [facility] PRN Reason: Protocol Insulin Human Lispro (Humalog) 0 units SC Q6H [facility] PRN Reason: Protocol Last Admin: 08/08/17 05:30 Dose: 1 units Lidocaine (Lidoderm) 1 ea TD DAILY [facility] Last Admin: 08/08/17 09:18 Dose: 1 ea Metoprolol Tartrate (Lopressor) 50 mg PO Q12 [facility] Last Admin: 08/08/17 09:18 Dose: 50 mg Pantoprazole Sodium (Protonix Ec Tab) 40 mg PO DAILY [facility] Last Admin: 08/08/17 09:19 Dose: 40 mg - Labs Labs: 08/08/17 10:17 08/08/17 10:17 PT 13.2 Seconds (9.8-13.1) H 08/07/17 14:20 INR 1.2 (0.9-1.2) 08/07/17 14:20 APTT 39.1 Seconds (25.6-37.1) H 07/22/17 05:20 - Constitutional Appears: No Acute Distress - Head Exam Head Exam: NORMOCEPHALIC - Eye Exam Eye Exam: EOMI, Normal appearance - ENT Exam ENT Exam: Mucous Membranes Moist - Respiratory Exam Respiratory Exam: NORMAL BREATHING PATTERN - Cardiovascular Exam Cardiovascular Exam: +S1, +S2 - GI/Abdominal Exam GI & Abdominal Exam: Soft Additional comments: feculent output through colocutaneous fistula - Neurological Exam Neurological Exam: Alert, Awake, Oriented x3 - Psychiatric Exam Psychiatric exam: Normal Mood - Skin Skin Exam: Dry, Intact, Warm Assessment and Plan - Assessment and Plan (Free Text) Assessment: 72M s/p ex-lap for perforated viscous with Small bowel resection with anastomosis POD#30, with post-op leak and colocutaneous fistula Plan: TPN calories to be 2.5x greater than current calories being administered No tube feeds monitor fistula output further recs per Dr. Zaynab Escoto PGY2 <Mook Worthy - Last Filed: 08/10/17 17:34> Objective - Vital Signs/Intake and Output Vital Signs (last 24 hours): Temp Pulse Resp BP Pulse Ox 98.2 F 86 20 120/72 98 08/10/17 17:17 08/10/17 17:17 08/10/17 17:17 08/10/17 17:17 08/10/17 17:17 - Medications Medications: Current Medications Acetaminophen (Tylenol 325mg Tab) 650 mg PO Q4 PRN PRN Reason: Pain, moderate (4-7) Last Admin: 08/08/17 09:19 Dose: 650 mg Bisacodyl (Dulcolax) 10 mg IN DAILY PRN PRN Reason: Constipation Last Admin: 08/07/17 14:18 Dose: 10 mg Cyanocobalamin (Vitamin B12 1000 Mcg Tab) 1,000 mcg PO DAILY [facility] Last Admin: 08/10/17 08:20 Dose: 1,000 mcg Cyclobenzaprine HCl (Flexeril) 10 mg PO Q12 [facility] Last Admin: 08/10/17 08:18 Dose: 10 mg Epoetin Mata (Procrit) 20,000 unit SC MWF [facility] Last Admin: 08/10/17 09:13 Dose: 20,000 unit Ferrous Sulfate (Feosol Liq) 300 mg PO BID [facility] Last Admin: 08/10/17 17:05 Dose: 300 mg Furosemide (Lasix) 20 mg IVP DAILY [facility] Last Admin: 08/10/17 08:18 Dose: 20 mg Guaifenesin/Dextromethorphan (Robitussin Dm) 10 ml PO Q6 PRN PRN Reason: Cough Last Admin: 08/07/17 08:34 Dose: 10 ml Heparin Sodium (Porcine) (Heparin) 5,000 units SC Q8 [facility] PRN Reason: Protocol Last Admin: 08/10/17 17:03 Dose: 5,000 units Fluconazole (Diflucan Iv 100 Mg/50 Ml Ns) 50 mls @ 50 mls/hr IVPB DAILY [facility] PRN Reason: Protocol Last Admin: 08/10/17 08:18 Dose: 50 mls/hr Piperacillin Sod/Tazobactam (Sod 3.375 gm/ Sodium Chloride) 100 mls @ 100 mls/ hr IVPB Q8@0100,0900,1700 [facility] PRN Reason: Protocol Last Admin: 08/10/17 17:03 Dose: 100 mls/hr Fat Emulsion Intravenous (Intralipid 20%) 250 mls @ 0 mls/hr IV .Q0M [facility] PRN Reason: UD Stop: 08/11/17 09:01 Last Admin: 08/10/17 15:13 Dose: 250 mls/hr Chromium/Copper/Manganese/Zinc 3 ml/ Multivitamins/Vitamin C 10 ml/ Amino Acids/ Electrolytes/Dextrose 2,013 mls @ 90 mls/hr IV .[id number] ONE Stop: 08/11/17 13:36 Insulin Human Lispro (Humalog) 0 units SC Q6H [facility] PRN Reason: Protocol Last Admin: 08/10/17 17:04 Dose: 3 units Lidocaine (Lidoderm) 1 ea TD DAILY [facility] Last Admin: 08/10/17 08:19 Dose: 1 ea Metoprolol Tartrate (Lopressor) 50 mg PO Q12 [facility] Last Admin: 08/10/17 08:19 Dose: 50 mg Pantoprazole Sodium (Protonix Ec Tab) 40 mg PO DAILY [facility] Last Admin: 08/10/17 08:20 Dose: 40 mg Tramadol HCl (Ultram) 50 mg PO Q6 PRN PRN Reason: Pain, moderate (4-7) Last Admin: 08/10/17 14:41 Dose: 50 mg - Labs Labs: 08/09/17 08:32 08/10/17 06:25 PT 13.2 Seconds (9.8-13.1) H 08/07/17 14:20 INR 1.2 (0.9-1.2) 08/07/17 14:20 APTT 39.1 Seconds (25.6-37.1) H 07/22/17 05:20 Attending/Attestation - Attestation I have personally seen and examined this patient.: Yes I have fully participated in the care of the patient.: Yes I have reviewed all pertinent clinical information, including history, physical exam and plan: Yes Notes (Text): Pt was seen and examined at bedside Agree with above note and assessment Pt is improving clinically C.w TPN OOB to chair and walk c.w current mx Plan bertha.w pt in detail
--- NOTE | 2017-08-08 12:26 | CP.PCM.PN ---
Subjective - Date & Time of Evaluation Date of Evaluation: 08/07/17 Time of Evaluation: 11:00 - Subjective Subjective: Has some abdominal pain. Objective - Vital Signs/Intake and Output Vital Signs (last 24 hours): Temp Pulse Resp BP Pulse Ox 97.4 F L 78 18 107/65 96 08/08/17 09:00 08/08/17 09:18 08/08/17 09:00 08/08/17 09:18 08/08/17 09:00 Intake and Output: 08/08/17 08/08/17 06:59 18:59 Intake Total 650 Output Total 1500 Balance -850 - Medications Medications: Current Medications Acetaminophen (Tylenol 325mg Tab) 650 mg PO Q4 PRN PRN Reason: Pain, moderate (4-7) Last Admin: 08/08/17 09:19 Dose: 650 mg Bisacodyl (Dulcolax) 10 mg [place] DAILY PRN PRN Reason: Constipation Last Admin: 08/07/17 14:18 Dose: 10 mg Cyanocobalamin (Vitamin B12 1000 Mcg/Ml Inj) 1,000 mcg IM DAILY [facility] Last Admin: 08/08/17 09:19 Dose: 1,000 mcg Epoetin Mata (Procrit) 20,000 unit SC MWF [facility] Last Admin: 08/08/17 09:19 Dose: 20,000 unit Ferrous Sulfate (Feosol Liq) 300 mg PO BID [facility] Last Admin: 08/08/17 09:16 Dose: 300 mg Furosemide (Lasix) 20 mg IVP DAILY [facility] Last Admin: 08/08/17 09:17 Dose: 20 mg Guaifenesin/Dextromethorphan (Robitussin Dm) 10 ml PO Q6 PRN PRN Reason: Cough Last Admin: 08/07/17 08:34 Dose: 10 ml Heparin Sodium (Porcine) (Heparin) 5,000 units SC Q8 [facility] PRN Reason: Protocol Last Admin: 08/08/17 09:16 Dose: 5,000 units Fluconazole (Diflucan Iv 100 Mg/50 Ml Ns) 50 mls @ 50 mls/hr IVPB DAILY [facility] PRN Reason: Protocol Last Admin: 08/07/17 08:31 Dose: 50 mls/hr Multivitamins/Vitamin C 10 ml/Chromium/Copper/Manganese/Zinc 3 ml/ Amino Acids/ Electrolytes/Dextrose 2,013 mls @ 65 mls/hr IV .Q24H ONE Stop: 08/08/17 15:14 Last Admin: 08/07/17 18:33 Dose: 65 mls/hr Piperacillin Sod/Tazobactam (Sod 3.375 gm/ Sodium Chloride) 100 mls @ 100 mls/ hr IVPB Q8H [facility] PRN Reason: Protocol Insulin Human Lispro (Humalog) 0 units SC Q6H [facility] PRN Reason: Protocol Last Admin: 08/08/17 05:30 Dose: 1 units Lidocaine (Lidoderm) 1 ea TD DAILY [facility] Last Admin: 08/08/17 09:18 Dose: 1 ea Metoprolol Tartrate (Lopressor) 50 mg PO Q12 [facility] Last Admin: 08/08/17 09:18 Dose: 50 mg Pantoprazole Sodium (Protonix Ec Tab) 40 mg PO DAILY [facility] Last Admin: 08/08/17 09:19 Dose: 40 mg - Labs Labs: 08/08/17 10:17 08/08/17 10:17 PT 13.2 Seconds (9.8-13.1) H 08/07/17 14:20 INR 1.2 (0.9-1.2) 08/07/17 14:20 APTT 39.1 Seconds (25.6-37.1) H 07/22/17 05:20 - Head Exam Head Exam: ATRAUMATIC - Eye Exam Eye Exam: Normal appearance - ENT Exam ENT Exam: Mucous Membranes Dry - Respiratory Exam Respiratory Exam: NORMAL BREATHING PATTERN - Cardiovascular Exam Cardiovascular Exam: +S1, +S2 - GI/Abdominal Exam GI & Abdominal Exam: Normal Bowel Sounds Assessment and Plan (1) Pancytopenia Assessment & Plan: mild leukopenia H/H improved s/p 2U PRBC on Procrit plt count stabilized Status: Acute
--- NOTE | 2017-08-08 12:27 | CP.PCM.PN ---
Subjective - Date & Time of Evaluation Date of Evaluation: 08/07/17 Time of Evaluation: 11:40 - Subjective Subjective: Has some abdominal pain. Objective - Vital Signs/Intake and Output Vital Signs (last 24 hours): Temp Pulse Resp BP Pulse Ox 97.4 F L 78 18 107/65 96 08/08/17 09:00 08/08/17 09:18 08/08/17 09:00 08/08/17 09:18 08/08/17 09:00 Intake and Output: 08/08/17 08/08/17 06:59 18:59 Intake Total 650 Output Total 1500 Balance -850 - Medications Medications: Current Medications Acetaminophen (Tylenol 325mg Tab) 650 mg PO Q4 PRN PRN Reason: Pain, moderate (4-7) Last Admin: 08/08/17 09:19 Dose: 650 mg Bisacodyl (Dulcolax) 10 mg [place] DAILY PRN PRN Reason: Constipation Last Admin: 08/07/17 14:18 Dose: 10 mg Cyanocobalamin (Vitamin B12 1000 Mcg/Ml Inj) 1,000 mcg IM DAILY [facility] Last Admin: 08/08/17 09:19 Dose: 1,000 mcg Epoetin Mata (Procrit) 20,000 unit SC MWF [facility] Last Admin: 08/08/17 09:19 Dose: 20,000 unit Ferrous Sulfate (Feosol Liq) 300 mg PO BID [facility] Last Admin: 08/08/17 09:16 Dose: 300 mg Furosemide (Lasix) 20 mg IVP DAILY [facility] Last Admin: 08/08/17 09:17 Dose: 20 mg Guaifenesin/Dextromethorphan (Robitussin Dm) 10 ml PO Q6 PRN PRN Reason: Cough Last Admin: 08/07/17 08:34 Dose: 10 ml Heparin Sodium (Porcine) (Heparin) 5,000 units SC Q8 [facility] PRN Reason: Protocol Last Admin: 08/08/17 09:16 Dose: 5,000 units Fluconazole (Diflucan Iv 100 Mg/50 Ml Ns) 50 mls @ 50 mls/hr IVPB DAILY [facility] PRN Reason: Protocol Last Admin: 08/07/17 08:31 Dose: 50 mls/hr Multivitamins/Vitamin C 10 ml/Chromium/Copper/Manganese/Zinc 3 ml/ Amino Acids/ Electrolytes/Dextrose 2,013 mls @ 65 mls/hr IV .Q24H ONE Stop: 08/08/17 15:14 Last Admin: 08/07/17 18:33 Dose: 65 mls/hr Piperacillin Sod/Tazobactam (Sod 3.375 gm/ Sodium Chloride) 100 mls @ 100 mls/ hr IVPB Q8H [facility] PRN Reason: Protocol Insulin Human Lispro (Humalog) 0 units SC Q6H [facility] PRN Reason: Protocol Last Admin: 08/08/17 05:30 Dose: 1 units Lidocaine (Lidoderm) 1 ea TD DAILY [facility] Last Admin: 08/08/17 09:18 Dose: 1 ea Metoprolol Tartrate (Lopressor) 50 mg PO Q12 [facility] Last Admin: 08/08/17 09:18 Dose: 50 mg Pantoprazole Sodium (Protonix Ec Tab) 40 mg PO DAILY [facility] Last Admin: 08/08/17 09:19 Dose: 40 mg - Labs Labs: 08/08/17 10:17 08/08/17 10:17 PT 13.2 Seconds (9.8-13.1) H 08/07/17 14:20 INR 1.2 (0.9-1.2) 08/07/17 14:20 APTT 39.1 Seconds (25.6-37.1) H 07/22/17 05:20 - Head Exam Head Exam: ATRAUMATIC - Eye Exam Eye Exam: Normal appearance - ENT Exam ENT Exam: Mucous Membranes Dry - Respiratory Exam Respiratory Exam: NORMAL BREATHING PATTERN - Cardiovascular Exam Cardiovascular Exam: +S1, +S2 - GI/Abdominal Exam GI & Abdominal Exam: Normal Bowel Sounds Assessment and Plan (1) Pancytopenia Assessment & Plan: mild leukopenia H/H improved s/p 2U PRBC on Procrit plt count stabilized Status: Acute
[2017-08-08 12:32] LABS: BLOOD UREA NITROGEN 32 mg/dl (9-20); CALCIUM 7.4 mg/dL (8.4-10.2); GFR AFRICAN-AMERICAN > 60; GFR NON-AFRICAN AMERICAN > 60
--- NOTE | 2017-08-08 13:56 | CP.PCM.PN ---
<Willard Akhtar - Last Filed: 08/08/17 13:53> Subjective - Date & Time of Evaluation Date of Evaluation: 08/08/17 Time of Evaluation: 10:40 - Subjective Subjective: Patient seen and examined this morning at bedside. There are no acute events overnight, NAD. Patient is POD30. 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 Patient on pulmonary sport bed. Patient currently only on TPN. Patient is s/p IR drainage of abdominal abscess yesterday Objective - Vital Signs/Intake and Output Vital Signs (last 24 hours): Temp Pulse Resp BP Pulse Ox 97.4 F L 78 18 107/65 96 08/08/17 09:00 08/08/17 09:18 08/08/17 09:00 08/08/17 09:18 08/08/17 09:00 Intake and Output: 08/08/17 08/08/17 06:59 18:59 Intake Total 650 Output Total 1500 Balance -850 - Medications Medications: Current Medications Acetaminophen (Tylenol 325mg Tab) 650 mg PO Q4 PRN PRN Reason: Pain, moderate (4-7) Last Admin: 08/08/17 09:19 Dose: 650 mg Bisacodyl (Dulcolax) 10 mg [place] DAILY PRN PRN Reason: Constipation Last Admin: 08/07/17 14:18 Dose: 10 mg Cyanocobalamin (Vitamin B12 1000 Mcg/Ml Inj) 1,000 mcg IM DAILY [facility] Last Admin: 08/08/17 09:19 Dose: 1,000 mcg Epoetin Karolyn (Procrit) 20,000 unit SC MWF [facility] Last Admin: 08/08/17 09:19 Dose: 20,000 unit Ferrous Sulfate (Feosol Liq) 300 mg PO BID [facility] Last Admin: 08/08/17 09:16 Dose: 300 mg Furosemide (Lasix) 20 mg IVP DAILY [facility] Last Admin: 08/08/17 09:17 Dose: 20 mg Guaifenesin/Dextromethorphan (Robitussin Dm) 10 ml PO Q6 PRN PRN Reason: Cough Last Admin: 08/07/17 08:34 Dose: 10 ml Heparin Sodium (Porcine) (Heparin) 5,000 units SC Q8 [facility] PRN Reason: Protocol Last Admin: 08/08/17 09:16 Dose: 5,000 units Fluconazole (Diflucan Iv 100 Mg/50 Ml Ns) 50 mls @ 50 mls/hr IVPB DAILY [facility] PRN Reason: Protocol Last Admin: 08/07/17 08:31 Dose: 50 mls/hr Multivitamins/Vitamin C 10 ml/Chromium/Copper/Manganese/Zinc 3 ml/ Amino Acids/ Electrolytes/Dextrose 2,013 mls @ 65 mls/hr IV .Q24H ONE Stop: 08/08/17 15:14 Last Admin: 08/07/17 18:33 Dose: 65 mls/hr Piperacillin Sod/Tazobactam (Sod 3.375 gm/ Sodium Chloride) 100 mls @ 100 mls/ hr IVPB Q8H [facility] PRN Reason: Protocol Insulin Human Lispro (Humalog) 0 units SC Q6H [facility] PRN Reason: Protocol Last Admin: 08/08/17 13:15 Dose: 1 units Lidocaine (Lidoderm) 1 ea TD DAILY [facility] Last Admin: 08/08/17 09:18 Dose: 1 ea Metoprolol Tartrate (Lopressor) 50 mg PO Q12 [facility] Last Admin: 08/08/17 09:18 Dose: 50 mg Pantoprazole Sodium (Protonix Ec Tab) 40 mg PO DAILY [facility] Last Admin: 08/08/17 09:19 Dose: 40 mg - Labs Labs: 08/08/17 10:17 08/08/17 10:50 PT 13.2 Seconds (9.8-13.1) H 08/07/17 14:20 INR 1.2 (0.9-1.2) 08/07/17 14:20 APTT 39.1 Seconds (25.6-37.1) H 07/22/17 05:20 - Constitutional Appears: No Acute Distress - Head Exam Head Exam: ATRAUMATIC, NORMAL INSPECTION, NORMOCEPHALIC - Eye Exam Eye Exam: Normal appearance - ENT Exam ENT Exam: Mucous Membranes Dry - Neck Exam Neck Exam: Full ROM. absent: Tenderness - Respiratory Exam Respiratory Exam: absent: Accessory Muscle Use, Decreased Breath Sounds, Rales, Rhonchi, Wheezes, Respiratory Distress - Cardiovascular Exam Cardiovascular Exam: REGULAR RHYTHM. absent: Tachycardia - GI/Abdominal Exam GI & Abdominal Exam: Soft, Tenderness Additional comments: feculent output through colocutaneous fistula, colostomy bags x2 from upper middle quadrant and lower quadrant of the abdomen with brown drainage - Extremities Exam Extremities Exam: absent: Calf Tenderness, Pedal Edema - Neurological Exam Neurological Exam: Alert, Awake - Skin Skin Exam: Dry, Intact. absent: Rash Assessment and Plan (1) Abdominal pain Status: Acute (2) Abscess Status: Acute (3) Atrial fibrillation Status: Acute (4) COPD (chronic obstructive pulmonary disease) Status: Acute (5) Essential (primary) hypertension Status: Acute (6) Hx of atrial fibrillation, no current medication Status: Acute (7) Intestinal perforation Status: Acute (8) Perforated abdominal viscus Status: Acute (9) Thrombocytopenia Status: Acute (10) Anemia Status: Acute - Assessment and Plan (Free Text) Plan: c/w present management. s/p ex-lap for perforated viscous with Small bowel resection with anastomosis, with post-op leak and EC fistula; POD 30 Surgery recommendations appreciated heme/onc recommendations appreciated pain management recommendations appreciated infectious disease recommendations appreciated leukopenia and anemia zosyn 3.375 mg IV Q8h day 1 TPN @ 60 mL/h pain management: tylenol 650 mg PO Q4h c/w epoetin karolyn c/w pulmonary sport bed f/u fluid culture/cytology DVT PPX: heparin 5000 SC Q8h <Bronson Castaneda - Last Filed: 08/08/17 22:23> Objective - Vital Signs/Intake and Output Vital Signs (last 24 hours): Temp Pulse Resp BP Pulse Ox 98.3 F 68 20 111/66 97 08/08/17 17:00 08/08/17 21:33 08/08/17 16:44 08/08/17 21:33 08/08/17 16:44 - Medications Medications: Current Medications Acetaminophen (Tylenol 325mg Tab) 650 mg PO Q4 PRN PRN Reason: Pain, moderate (4-7) Last Admin: 08/08/17 09:19 Dose: 650 mg Bisacodyl (Dulcolax) 10 mg [place] DAILY PRN PRN Reason: Constipation Last Admin: 08/07/17 14:18 Dose: 10 mg Cyanocobalamin (Vitamin B12 1000 Mcg Tab) 1,000 mcg PO DAILY [facility] Epoetin Karolyn (Procrit) 20,000 unit SC MWF [facility] Last Admin: 08/08/17 09:19 Dose: 20,000 unit Ferrous Sulfate (Feosol Liq) 300 mg PO BID [facility] Last Admin: 08/08/17 17:02 Dose: 300 mg Furosemide (Lasix) 20 mg IVP DAILY [facility] Last Admin: 08/08/17 09:17 Dose: 20 mg Guaifenesin/Dextromethorphan (Robitussin Dm) 10 ml PO Q6 PRN PRN Reason: Cough Last Admin: 08/07/17 08:34 Dose: 10 ml Heparin Sodium (Porcine) (Heparin) 5,000 units SC Q8 [facility] PRN Reason: Protocol Last Admin: 08/08/17 17:03 Dose: 5,000 units Fluconazole (Diflucan Iv 100 Mg/50 Ml Ns) 50 mls @ 50 mls/hr IVPB DAILY [facility] PRN Reason: Protocol Last Admin: 08/08/17 15:28 Dose: 50 mls/hr Multivitamins/Vitamin C 10 ml/Chromium/Copper/Manganese/Zinc 3 ml/ Amino Acids/ Electrolytes/Dextrose 2,013 mls @ 65 mls/hr IV .Q24H ONE Stop: 08/09/17 16:29 Piperacillin Sod/Tazobactam (Sod 3.375 gm/ Sodium Chloride) 100 mls @ 100 mls/ hr IVPB Q8@0100,0900,1700 [facility] PRN Reason: Protocol Last Admin: 08/08/17 18:55 Dose: Not Given Insulin Human Lispro (Humalog) 0 units SC Q6H [facility] PRN Reason: Protocol Last Admin: 08/08/17 17:02 Dose: 1 units Lidocaine (Lidoderm) 1 ea TD DAILY [facility] Last Admin: 08/08/17 09:18 Dose: 1 ea Metoprolol Tartrate (Lopressor) 50 mg PO Q12 [facility] Last Admin: 08/08/17 21:33 Dose: 50 mg Pantoprazole Sodium (Protonix Ec Tab) 40 mg PO DAILY [facility] Last Admin: 08/08/17 09:19 Dose: 40 mg - Labs Labs: 08/08/17 10:17 08/08/17 10:50 PT 13.2 Seconds (9.8-13.1) H 08/07/17 14:20 INR 1.2 (0.9-1.2) 08/07/17 14:20 APTT 39.1 Seconds (25.6-37.1) H 07/22/17 05:20 Assessment and Plan (1) Abdominal pain Status: Acute (2) COPD (chronic obstructive pulmonary disease) Status: Acute (3) Essential (primary) hypertension Status: Acute (4) Hx of atrial fibrillation, no current medication Status: Acute (5) Intestinal perforation Status: Acute (6) Perforated abdominal viscus Status: Acute (7) Atrial fibrillation Status: Acute (8) Anemia Status: Acute (9) Thrombocytopenia Status: Acute (10) Abscess Status: Acute - Assessment and Plan (Free Text) Plan: I was present during evaluation and discussed with Dr Akhtar re plans of care and mgt. Bronson Castaneda M.D.
[2017-08-08] MEDS: Fluconazole IV 100mg/50 ml NS 50 ML IVPB SCH (15:28)
[2017-08-08] MEDS ORDERED: Multivitamin (MVI) 10 ML, Chromium/Copper/Manganese/Zinc 3 ML in Amino/Dex E 4.25/25 10... IV ONE (16:00)
[2017-08-08] MEDS ORDERED: Multivitamin (MVI) 10 ML, Chromium/Copper/Manganese/Zinc 3 ML in Amino/Dex E 4.25/10 10... IV ONE (16:30)
[2017-08-08] MEDS: Piperacillin/Tazobact 3.375 GM in Sodium Chloride 0.9% 100 ML IVPB SCH (18:55)
--- NOTE | 2017-08-08 22:20 | CP.PCM.PN ---
Subjective - Date & Time of Evaluation Date of Evaluation: 08/06/17 Time of Evaluation: 11:00 - Subjective Subjective: Patient remains stable Has no chest pain or SOB Doing better after transfusion Continues to have purulent discharge on surgical wound Has no fever. Objective - Vital Signs/Intake and Output Vital Signs (last 24 hours): Temp Pulse Resp BP Pulse Ox 98.3 F 68 20 111/66 97 08/08/17 17:00 08/08/17 21:33 08/08/17 16:44 08/08/17 21:33 08/08/17 16:44 - Medications Medications: Current Medications Acetaminophen (Tylenol 325mg Tab) 650 mg PO Q4 PRN PRN Reason: Pain, moderate (4-7) Last Admin: 08/08/17 09:19 Dose: 650 mg Bisacodyl (Dulcolax) 10 mg [place] DAILY PRN PRN Reason: Constipation Last Admin: 08/07/17 14:18 Dose: 10 mg Cyanocobalamin (Vitamin B12 1000 Mcg Tab) 1,000 mcg PO DAILY [facility] Epoetin Mata (Procrit) 20,000 unit SC MWF [facility] Last Admin: 08/08/17 09:19 Dose: 20,000 unit Ferrous Sulfate (Feosol Liq) 300 mg PO BID [facility] Last Admin: 08/08/17 17:02 Dose: 300 mg Furosemide (Lasix) 20 mg IVP DAILY [facility] Last Admin: 08/08/17 09:17 Dose: 20 mg Guaifenesin/Dextromethorphan (Robitussin Dm) 10 ml PO Q6 PRN PRN Reason: Cough Last Admin: 08/07/17 08:34 Dose: 10 ml Heparin Sodium (Porcine) (Heparin) 5,000 units SC Q8 [facility] PRN Reason: Protocol Last Admin: 08/08/17 17:03 Dose: 5,000 units Fluconazole (Diflucan Iv 100 Mg/50 Ml Ns) 50 mls @ 50 mls/hr IVPB DAILY [facility] PRN Reason: Protocol Last Admin: 08/08/17 15:28 Dose: 50 mls/hr Multivitamins/Vitamin C 10 ml/Chromium/Copper/Manganese/Zinc 3 ml/ Amino Acids/ Electrolytes/Dextrose 2,013 mls @ 65 mls/hr IV .Q24H ONE Stop: 08/09/17 16:29 Piperacillin Sod/Tazobactam (Sod 3.375 gm/ Sodium Chloride) 100 mls @ 100 mls/ hr IVPB Q8@0100,0900,1700 [facility] PRN Reason: Protocol Last Admin: 08/08/17 18:55 Dose: Not Given Insulin Human Lispro (Humalog) 0 units SC Q6H [facility] PRN Reason: Protocol Last Admin: 08/08/17 17:02 Dose: 1 units Lidocaine (Lidoderm) 1 ea TD DAILY [facility] Last Admin: 08/08/17 09:18 Dose: 1 ea Metoprolol Tartrate (Lopressor) 50 mg PO Q12 [facility] Last Admin: 08/08/17 21:33 Dose: 50 mg Pantoprazole Sodium (Protonix Ec Tab) 40 mg PO DAILY [facility] Last Admin: 08/08/17 09:19 Dose: 40 mg - Labs Labs: 08/08/17 10:17 08/08/17 10:50 PT 13.2 Seconds (9.8-13.1) H 08/07/17 14:20 INR 1.2 (0.9-1.2) 08/07/17 14:20 APTT 39.1 Seconds (25.6-37.1) H 07/22/17 05:20 - Head Exam Head Exam: NORMAL INSPECTION - Eye Exam Eye Exam: Normal appearance - ENT Exam ENT Exam: Mucous Membranes Moist - Respiratory Exam Respiratory Exam: Clear to Ausculation Bilateral - Cardiovascular Exam Cardiovascular Exam: REGULAR RHYTHM - GI/Abdominal Exam GI & Abdominal Exam: Normal Bowel Sounds - Neurological Exam Neurological Exam: Awake, Oriented x3 Assessment and Plan (1) Abdominal pain Status: Acute (2) COPD (chronic obstructive pulmonary disease) Status: Acute (3) Essential (primary) hypertension Status: Acute (4) Hx of atrial fibrillation, no current medication Status: Acute (5) Intestinal perforation Status: Acute (6) Perforated abdominal viscus Status: Acute (7) Atrial fibrillation Status: Acute (8) Anemia Status: Acute (9) Thrombocytopenia Status: Acute (10) Abscess Status: Acute - Assessment and Plan (Free Text) Plan: Cont meds surgical follow up Cont meds. follow up cbc cmp
[2017-08-09] MEDS: Piperacillin/Tazobact 3.375 GM in Sodium Chloride 0.9% 100 ML IVPB SCH ×3 (00:15→16:34)
[2017-08-09] MEDS: Insulin Lispro (humaLOG) 100 Units/ml Inj SC SCH ×4 (05:18→22:54)
--- NOTE | 2017-08-09 07:49 | CP.PCM.PN ---
<Onur Baker - Last Filed: 08/09/17 07:43> Subjective - Date & Time of Evaluation Date of Evaluation: 08/09/17 Time of Evaluation: 07:30 - Subjective Subjective: General Surgery Progress Note- Dr. Worthy 72 y.o male seen and evaluated and seen at bedside for perforated viscous with Small bowel resection with anastomosis POD#31, with post-op leak and colocutaneous fistula. Patient is seen resting comfortably and in NAD. Patient reports that he is unable to sleep for the last 2 nights due to a dull pain to the lower left quadrant. Denies acute overnight events. Objective - Vital Signs/Intake and Output Vital Signs (last 24 hours): Temp Pulse Resp BP Pulse Ox 99.6 F 60 20 107/62 97 08/09/17 00:56 08/09/17 00:56 08/09/17 00:56 08/09/17 00:56 08/09/17 00:56 Intake and Output: 08/09/17 08/09/17 06:59 18:59 Intake Total 780 Output Total 900 Balance -120 - Medications Medications: Current Medications Acetaminophen (Tylenol 325mg Tab) 650 mg PO Q4 PRN PRN Reason: Pain, moderate (4-7) Last Admin: 08/08/17 09:19 Dose: 650 mg Bisacodyl (Dulcolax) 10 mg [place] DAILY PRN PRN Reason: Constipation Last Admin: 08/07/17 14:18 Dose: 10 mg Cyanocobalamin (Vitamin B12 1000 Mcg Tab) 1,000 mcg PO DAILY [facility] Epoetin Mata (Procrit) 20,000 unit SC MWF [facility] Last Admin: 08/08/17 09:19 Dose: 20,000 unit Ferrous Sulfate (Feosol Liq) 300 mg PO BID [facility] Last Admin: 08/08/17 17:02 Dose: 300 mg Furosemide (Lasix) 20 mg IVP DAILY [facility] Last Admin: 08/08/17 09:17 Dose: 20 mg Guaifenesin/Dextromethorphan (Robitussin Dm) 10 ml PO Q6 PRN PRN Reason: Cough Last Admin: 08/07/17 08:34 Dose: 10 ml Heparin Sodium (Porcine) (Heparin) 5,000 units SC Q8 [facility] PRN Reason: Protocol Last Admin: 08/09/17 00:09 Dose: 5,000 units Fluconazole (Diflucan Iv 100 Mg/50 Ml Ns) 50 mls @ 50 mls/hr IVPB DAILY [facility] PRN Reason: Protocol Last Admin: 08/08/17 15:28 Dose: 50 mls/hr Multivitamins/Vitamin C 10 ml/Chromium/Copper/Manganese/Zinc 3 ml/ Amino Acids/ Electrolytes/Dextrose 2,013 mls @ 65 mls/hr IV .Q24H ONE Stop: 08/09/17 16:29 Last Admin: 08/09/17 02:33 Dose: 65 mls/hr Piperacillin Sod/Tazobactam (Sod 3.375 gm/ Sodium Chloride) 100 mls @ 100 mls/ hr IVPB Q8@0100,0900,1700 [facility] PRN Reason: Protocol Last Admin: 08/09/17 00:15 Dose: 100 mls/hr Insulin Human Lispro (Humalog) 0 units SC Q6H [facility] PRN Reason: Protocol Last Admin: 08/09/17 05:18 Dose: Not Given Lidocaine (Lidoderm) 1 ea TD DAILY [facility] Last Admin: 08/08/17 09:18 Dose: 1 ea Metoprolol Tartrate (Lopressor) 50 mg PO Q12 [facility] Last Admin: 08/08/17 21:33 Dose: 50 mg Pantoprazole Sodium (Protonix Ec Tab) 40 mg PO DAILY [facility] Last Admin: 08/08/17 09:19 Dose: 40 mg - Labs Labs: 08/08/17 10:17 08/08/17 10:50 PT 13.2 Seconds (9.8-13.1) H 08/07/17 14:20 INR 1.2 (0.9-1.2) 08/07/17 14:20 APTT 39.1 Seconds (25.6-37.1) H 07/22/17 05:20 - Constitutional Appears: Well, Non-toxic, No Acute Distress - Eye Exam Eye Exam: Normal appearance - ENT Exam ENT Exam: Mucous Membranes Moist - Respiratory Exam Respiratory Exam: NORMAL BREATHING PATTERN - Cardiovascular Exam Cardiovascular Exam: +S1, +S2 - GI/Abdominal Exam Additional comments: tender to the lower left quadrant feculent output through colocutaneous fistula - Neurological Exam Neurological Exam: Alert, Awake - Psychiatric Exam Psychiatric exam: Normal Affect, Normal Mood - Skin Skin Exam: Dry, Intact, Normal Color, Warm Assessment and Plan - Assessment and Plan (Free Text) Assessment: 72M s/p ex-lap for perforated viscous with Small bowel resection with anastomosis POD#31, with post-op leak and colocutaneous fistula Plan: -TPN calories to be 2.5x greater than current calories being administered -no tube feeds -monitor fistula output -pre-albumin -c/w pain control -further recs per Dr. Worthy <Mook Worthy - Last Filed: 08/10/17 17:35> Objective - Vital Signs/Intake and Output Vital Signs (last 24 hours): Temp Pulse Resp BP Pulse Ox 98.2 F 86 20 120/72 98 08/10/17 17:17 08/10/17 17:17 08/10/17 17:17 08/10/17 17:17 08/10/17 17:17 - Medications Medications: Current Medications Acetaminophen (Tylenol 325mg Tab) 650 mg PO Q4 PRN PRN Reason: Pain, moderate (4-7) Last Admin: 08/08/17 09:19 Dose: 650 mg Bisacodyl (Dulcolax) 10 mg [place] DAILY PRN PRN Reason: Constipation Last Admin: 08/07/17 14:18 Dose: 10 mg Cyanocobalamin (Vitamin B12 1000 Mcg Tab) 1,000 mcg PO DAILY [facility] Last Admin: 08/10/17 08:20 Dose: 1,000 mcg Cyclobenzaprine HCl (Flexeril) 10 mg PO Q12 [facility] Last Admin: 08/10/17 08:18 Dose: 10 mg Epoetin Mata (Procrit) 20,000 unit SC MWF [facility] Last Admin: 08/10/17 09:13 Dose: 20,000 unit Ferrous Sulfate (Feosol Liq) 300 mg PO BID [facility] Last Admin: 08/10/17 17:05 Dose: 300 mg Furosemide (Lasix) 20 mg IVP DAILY [facility] Last Admin: 08/10/17 08:18 Dose: 20 mg Guaifenesin/Dextromethorphan (Robitussin Dm) 10 ml PO Q6 PRN PRN Reason: Cough Last Admin: 08/07/17 08:34 Dose: 10 ml Heparin Sodium (Porcine) (Heparin) 5,000 units SC Q8 [facility] PRN Reason: Protocol Last Admin: 08/10/17 17:03 Dose: 5,000 units Fluconazole (Diflucan Iv 100 Mg/50 Ml Ns) 50 mls @ 50 mls/hr IVPB DAILY [facility] PRN Reason: Protocol Last Admin: 08/10/17 08:18 Dose: 50 mls/hr Piperacillin Sod/Tazobactam (Sod 3.375 gm/ Sodium Chloride) 100 mls @ 100 mls/ hr IVPB Q8@0100,0900,1700 [facility] PRN Reason: Protocol Last Admin: 08/10/17 17:03 Dose: 100 mls/hr Fat Emulsion Intravenous (Intralipid 20%) 250 mls @ 0 mls/hr IV .Q0M [facility] PRN Reason: UD Stop: 08/11/17 09:01 Last Admin: 08/10/17 15:13 Dose: 250 mls/hr Chromium/Copper/Manganese/Zinc 3 ml/ Multivitamins/Vitamin C 10 ml/ Amino Acids/ Electrolytes/Dextrose 2,013 mls @ 90 mls/hr IV .[id number] ONE Stop: 08/11/17 13:36 Insulin Human Lispro (Humalog) 0 units SC Q6H [facility] PRN Reason: Protocol Last Admin: 08/10/17 17:04 Dose: 3 units Lidocaine (Lidoderm) 1 ea TD DAILY [facility] Last Admin: 08/10/17 08:19 Dose: 1 ea Metoprolol Tartrate (Lopressor) 50 mg PO Q12 [facility] Last Admin: 08/10/17 08:19 Dose: 50 mg Pantoprazole Sodium (Protonix Ec Tab) 40 mg PO DAILY [facility] Last Admin: 08/10/17 08:20 Dose: 40 mg Tramadol HCl (Ultram) 50 mg PO Q6 PRN PRN Reason: Pain, moderate (4-7) Last Admin: 08/10/17 14:41 Dose: 50 mg - Labs Labs: 08/09/17 08:32 08/10/17 06:25 PT 13.2 Seconds (9.8-13.1) H 08/07/17 14:20 INR 1.2 (0.9-1.2) 08/07/17 14:20 APTT 39.1 Seconds (25.6-37.1) H 07/22/17 05:20 Attending/Attestation - Attestation I have personally seen and examined this patient.: Yes I have fully participated in the care of the patient.: Yes I have reviewed all pertinent clinical information, including history, physical exam and plan: Yes Notes (Text): Pt was seen and examined at bedside Agree with above note and assessment Pt is improving clinically C.w TPN Po Tramadol Prn for pain c.w current mx Plan d.w pt in detail
[2017-08-09 08:41] LABS: MEAN CORPUSCULAR HEMOGLOBIN 31.6 pg (27.0-31.0); RBC 3.65 Mil/uL (4.40-5.90); RED CELL DISTRIBUTION WIDTH 16.3 % (11.5-14.5)
[2017-08-09 08:56] LABS: ALB/GLOB RATIO 0.6 (1.0-2.1); ALT/SGPT 44 U/L (21-72); AST/SGOT 20 U/L (17-59); BLOOD UREA NITROGEN 27 mg/dl (9-20); CALCIUM 7.4 mg/dL (8.4-10.2); GFR AFRICAN-AMERICAN > 60; GFR NON-AFRICAN AMERICAN > 60
[2017-08-09 08:58] LABS: HEMOGLOBIN 11.5 g/dL (12.0-18.0); MEAN CELL VOLUME 95.6 fl (80.0-94.0)
[2017-08-09] MEDS: Lidocaine 5% Patch TD SCH (09:08)
[2017-08-09] MEDS: Ferrous Sulfate 300 mg/5 mL Liq UD PO SCH ×2 (09:09→16:33)
[2017-08-09] MEDS: Pantoprazole 40 mg EC Tab PO SCH (09:09)
--- NOTE | 2017-08-09 11:24 | CP.PCM.PN ---
Subjective - Date & Time of Evaluation Date of Evaluation: 08/09/17 Time of Evaluation: 11:10 - Subjective Subjective: Has some abdominal pain. Objective - Vital Signs/Intake and Output Vital Signs (last 24 hours): Temp Pulse Resp BP Pulse Ox 99.1 F 73 19 126/85 96 08/09/17 08:20 08/09/17 09:07 08/09/17 08:20 08/09/17 09:08 08/09/17 08:20 Intake and Output: 08/09/17 08/09/17 06:59 18:59 Intake Total 780 Output Total 900 Balance -120 - Medications Medications: Current Medications Acetaminophen (Tylenol 325mg Tab) 650 mg PO Q4 PRN PRN Reason: Pain, moderate (4-7) Last Admin: 08/08/17 09:19 Dose: 650 mg Bisacodyl (Dulcolax) 10 mg [place] DAILY PRN PRN Reason: Constipation Last Admin: 08/07/17 14:18 Dose: 10 mg Cyanocobalamin (Vitamin B12 1000 Mcg Tab) 1,000 mcg PO DAILY [facility] Last Admin: 08/09/17 09:09 Dose: 1,000 mcg Epoetin Mata (Procrit) 20,000 unit SC MWF [facility] Last Admin: 08/08/17 09:19 Dose: 20,000 unit Ferrous Sulfate (Feosol Liq) 300 mg PO BID [facility] Last Admin: 08/09/17 09:09 Dose: 300 mg Furosemide (Lasix) 20 mg IVP DAILY [facility] Last Admin: 08/09/17 09:08 Dose: 20 mg Guaifenesin/Dextromethorphan (Robitussin Dm) 10 ml PO Q6 PRN PRN Reason: Cough Last Admin: 08/07/17 08:34 Dose: 10 ml Heparin Sodium (Porcine) (Heparin) 5,000 units SC Q8 [facility] PRN Reason: Protocol Last Admin: 08/09/17 09:06 Dose: 5,000 units Fluconazole (Diflucan Iv 100 Mg/50 Ml Ns) 50 mls @ 50 mls/hr IVPB DAILY [facility] PRN Reason: Protocol Last Admin: 08/08/17 15:28 Dose: 50 mls/hr Multivitamins/Vitamin C 10 ml/Chromium/Copper/Manganese/Zinc 3 ml/ Amino Acids/ Electrolytes/Dextrose 2,013 mls @ 65 mls/hr IV .Q24H ONE Stop: 08/09/17 16:29 Last Admin: 08/09/17 02:33 Dose: 65 mls/hr Piperacillin Sod/Tazobactam (Sod 3.375 gm/ Sodium Chloride) 100 mls @ 100 mls/ hr IVPB Q8@0100,0900,1700 [facility] PRN Reason: Protocol Last Admin: 08/09/17 09:09 Dose: 100 mls/hr Insulin Human Lispro (Humalog) 0 units SC Q6H [facility] PRN Reason: Protocol Last Admin: 08/09/17 05:18 Dose: Not Given Lidocaine (Lidoderm) 1 ea TD DAILY [facility] Last Admin: 08/09/17 09:08 Dose: 1 ea Metoprolol Tartrate (Lopressor) 50 mg PO Q12 [facility] Last Admin: 08/09/17 09:07 Dose: 50 mg Pantoprazole Sodium (Protonix Ec Tab) 40 mg PO DAILY [facility] Last Admin: 08/09/17 09:09 Dose: 40 mg - Labs Labs: 08/09/17 08:32 08/09/17 08:32 PT 13.2 Seconds (9.8-13.1) H 08/07/17 14:20 INR 1.2 (0.9-1.2) 08/07/17 14:20 APTT 39.1 Seconds (25.6-37.1) H 07/22/17 05:20 - Head Exam Head Exam: ATRAUMATIC - Eye Exam Eye Exam: Normal appearance - ENT Exam ENT Exam: Mucous Membranes Dry - Respiratory Exam Respiratory Exam: NORMAL BREATHING PATTERN - Cardiovascular Exam Cardiovascular Exam: +S1, +S2 - GI/Abdominal Exam GI & Abdominal Exam: Normal Bowel Sounds Assessment and Plan (1) Pancytopenia Assessment & Plan: mild leukopenia H/H improved s/p PRBC transfusion on Procrit plt count stabilized Status: Acute
[2017-08-09] MEDS: Fluconazole IV 100mg/50 ml NS 50 ML IVPB SCH (14:06)
[2017-08-09] MEDS ORDERED: Fat Emulsion 20% IV 250 ML IV ONE (14:45)
[2017-08-09] MEDS ORDERED: Multivitamin (MVI) 10 ML, Trace Elements-Cr/Cu/Mn/Zn 3 ML in Amino/Dex E 4.25/10 1000 M... IV ONE (15:30)
[2017-08-10] MEDS: Piperacillin/Tazobact 3.375 GM in Sodium Chloride 0.9% 100 ML IVPB SCH ×3 (00:41→17:03)
[2017-08-10] MEDS: Insulin Lispro (humaLOG) 100 Units/ml Inj SC SCH ×5 (05:09→23:05)
[2017-08-10 06:57] LABS: BLOOD UREA NITROGEN 25 mg/dl (9-20); GFR AFRICAN-AMERICAN > 60; GFR NON-AFRICAN AMERICAN > 60
[2017-08-10] MEDS: Ferrous Sulfate 300 mg/5 mL Liq UD PO SCH ×2 (08:18→17:05)
[2017-08-10] MEDS: Fluconazole IV 100mg/50 ml NS 50 ML IVPB SCH (08:18)
[2017-08-10] MEDS: Lidocaine 5% Patch TD SCH (08:19)
[2017-08-10] MEDS: Pantoprazole 40 mg EC Tab PO SCH (08:20)
--- NOTE | 2017-08-10 08:34 | CP.PCM.PN ---
Subjective - Date & Time of Evaluation Date of Evaluation: 08/10/17 Time of Evaluation: 08:31 - Subjective Subjective: General Surgery Progress Note for Dr. Worhty This 72M was seen and examined this Am at bedside no acute events reports overnight. Patients pain is better controlled. He denies fevers chills chest pain nausea vomiting. Objective - Vital Signs/Intake and Output Vital Signs (last 24 hours): Temp Pulse Resp BP Pulse Ox 97.2 F L 78 18 118/70 97 08/10/17 08:01 08/10/17 08:19 08/10/17 08:01 08/10/17 08:19 08/10/17 08:01 - Medications Medications: Current Medications Acetaminophen (Tylenol 325mg Tab) 650 mg PO Q4 PRN PRN Reason: Pain, moderate (4-7) Last Admin: 08/08/17 09:19 Dose: 650 mg Bisacodyl (Dulcolax) 10 mg [place] DAILY PRN PRN Reason: Constipation Last Admin: 08/07/17 14:18 Dose: 10 mg Cyanocobalamin (Vitamin B12 1000 Mcg Tab) 1,000 mcg PO DAILY [facility] Last Admin: 08/10/17 08:20 Dose: 1,000 mcg Cyclobenzaprine HCl (Flexeril) 10 mg PO Q12 [facility] Last Admin: 08/10/17 08:18 Dose: 10 mg Epoetin Mata (Procrit) 20,000 unit SC MWF [facility] Last Admin: 08/08/17 09:19 Dose: 20,000 unit Ferrous Sulfate (Feosol Liq) 300 mg PO BID [facility] Last Admin: 08/10/17 08:18 Dose: 300 mg Furosemide (Lasix) 20 mg IVP DAILY [facility] Last Admin: 08/10/17 08:18 Dose: 20 mg Guaifenesin/Dextromethorphan (Robitussin Dm) 10 ml PO Q6 PRN PRN Reason: Cough Last Admin: 08/07/17 08:34 Dose: 10 ml Heparin Sodium (Porcine) (Heparin) 5,000 units SC Q8 [facility] PRN Reason: Protocol Last Admin: 08/10/17 00:43 Dose: 5,000 units Fluconazole (Diflucan Iv 100 Mg/50 Ml Ns) 50 mls @ 50 mls/hr IVPB DAILY [facility] PRN Reason: Protocol Last Admin: 08/10/17 08:18 Dose: 50 mls/hr Piperacillin Sod/Tazobactam (Sod 3.375 gm/ Sodium Chloride) 100 mls @ 100 mls/ hr IVPB Q8@0100,0900,1700 [facility] PRN Reason: Protocol Last Admin: 08/10/17 00:41 Dose: 100 mls/hr Multivitamins/Vitamin C 10 ml/Chromium/Copper/Manganese/Zinc 3 ml/ Amino Acids/ Electrolytes/Dextrose 2,013 mls @ 80 mls/hr IV .Q24H ONE Stop: 08/10/17 15:29 Last Admin: 08/10/17 02:53 Dose: 80 mls/hr Fat Emulsion Intravenous (Intralipid 20%) 250 mls @ 0 mls/hr IV .Q0M [facility] PRN Reason: UD Stop: 08/11/17 09:01 Insulin Human Lispro (Humalog) 0 units SC Q6H [facility] PRN Reason: Protocol Last Admin: 08/10/17 05:09 Dose: Not Given Lidocaine (Lidoderm) 1 ea TD DAILY [facility] Last Admin: 08/10/17 08:19 Dose: 1 ea Metoprolol Tartrate (Lopressor) 50 mg PO Q12 [facility] Last Admin: 08/10/17 08:19 Dose: 50 mg Pantoprazole Sodium (Protonix Ec Tab) 40 mg PO DAILY [facility] Last Admin: 08/10/17 08:20 Dose: 40 mg Tramadol HCl (Ultram) 50 mg PO Q6 PRN PRN Reason: Pain, moderate (4-7) Last Admin: 08/10/17 08:17 Dose: 50 mg - Labs Labs: 08/09/17 08:32 08/10/17 06:25 PT 13.2 Seconds (9.8-13.1) H 08/07/17 14:20 INR 1.2 (0.9-1.2) 08/07/17 14:20 APTT 39.1 Seconds (25.6-37.1) H 07/22/17 05:20 - Constitutional Appears: Non-toxic, No Acute Distress - Head Exam Head Exam: ATRAUMATIC, NORMOCEPHALIC - Eye Exam Eye Exam: EOMI, Normal appearance - ENT Exam ENT Exam: Mucous Membranes Moist - Respiratory Exam Respiratory Exam: NORMAL BREATHING PATTERN - Cardiovascular Exam Cardiovascular Exam: +S1, +S2 - GI/Abdominal Exam GI & Abdominal Exam: Soft, Tenderness. absent: Guarding, Rigid Additional comments: Ostomy appliance in place not leaking with liquid output from fistula. - Skin Additional comments: Stage 1 sacral ulcer Assessment and Plan - Assessment and Plan (Free Text) Assessment: 72M s/p ex-lap for perforated viscous with Small bowel resection with anastomosis POD#32, with post-op leak and colocutaneous fistula Plan: - TPN goals 3300 candido per day - no tube feeds - monitor fistula output - c/w pain control - Out of bed, frequent repositioning - D/W Dr. Worthy
[2017-08-10] MEDS ORDERED: Fat Emulsion 20% IV 250 ML IV SCH (09:00)
[2017-08-10] MEDS: Epoetin Alfa 20000 UNIT/ML Inj SC SCH (09:13)
--- NOTE | 2017-08-10 11:52 | CP.PCM.PN ---
Subjective - Date & Time of Evaluation Date of Evaluation: 08/10/17 Time of Evaluation: 08:00 - Subjective Subjective: 72M s/p ex-lap for perforated viscous with Small bowel resection with anastomosis POD#32, with post-op leak and colocutaneous fistula Objective - Vital Signs/Intake and Output Vital Signs (last 24 hours): Temp Pulse Resp BP Pulse Ox 97.2 F L 78 18 118/70 97 08/10/17 08:01 08/10/17 08:19 08/10/17 08:01 08/10/17 08:19 08/10/17 08:01 - Medications Medications: Current Medications Acetaminophen (Tylenol 325mg Tab) 650 mg PO Q4 PRN PRN Reason: Pain, moderate (4-7) Last Admin: 08/08/17 09:19 Dose: 650 mg Bisacodyl (Dulcolax) 10 mg [place] DAILY PRN PRN Reason: Constipation Last Admin: 08/07/17 14:18 Dose: 10 mg Cyanocobalamin (Vitamin B12 1000 Mcg Tab) 1,000 mcg PO DAILY [facility] Last Admin: 08/10/17 08:20 Dose: 1,000 mcg Cyclobenzaprine HCl (Flexeril) 10 mg PO Q12 [facility] Last Admin: 08/10/17 08:18 Dose: 10 mg Epoetin Mata (Procrit) 20,000 unit SC MWF [facility] Last Admin: 08/10/17 09:13 Dose: 20,000 unit Ferrous Sulfate (Feosol Liq) 300 mg PO BID [facility] Last Admin: 08/10/17 08:18 Dose: 300 mg Furosemide (Lasix) 20 mg IVP DAILY [facility] Last Admin: 08/10/17 08:18 Dose: 20 mg Guaifenesin/Dextromethorphan (Robitussin Dm) 10 ml PO Q6 PRN PRN Reason: Cough Last Admin: 08/07/17 08:34 Dose: 10 ml Heparin Sodium (Porcine) (Heparin) 5,000 units SC Q8 [facility] PRN Reason: Protocol Last Admin: 08/10/17 08:34 Dose: 5,000 units Fluconazole (Diflucan Iv 100 Mg/50 Ml Ns) 50 mls @ 50 mls/hr IVPB DAILY [facility] PRN Reason: Protocol Last Admin: 08/10/17 08:18 Dose: 50 mls/hr Piperacillin Sod/Tazobactam (Sod 3.375 gm/ Sodium Chloride) 100 mls @ 100 mls/ hr IVPB Q8@0100,0900,1700 [facility] PRN Reason: Protocol Last Admin: 08/10/17 10:05 Dose: 100 mls/hr Multivitamins/Vitamin C 10 ml/Chromium/Copper/Manganese/Zinc 3 ml/ Amino Acids/ Electrolytes/Dextrose 2,013 mls @ 80 mls/hr IV .Q24H ONE Stop: 08/10/17 15:29 Last Admin: 08/10/17 02:53 Dose: 80 mls/hr Fat Emulsion Intravenous (Intralipid 20%) 250 mls @ 0 mls/hr IV .Q0M [facility] PRN Reason: UD Stop: 08/11/17 09:01 Insulin Human Lispro (Humalog) 0 units SC Q6H [facility] PRN Reason: Protocol Last Admin: 08/10/17 05:09 Dose: Not Given Lidocaine (Lidoderm) 1 ea TD DAILY [facility] Last Admin: 08/10/17 08:19 Dose: 1 ea Metoprolol Tartrate (Lopressor) 50 mg PO Q12 [facility] Last Admin: 08/10/17 08:19 Dose: 50 mg Pantoprazole Sodium (Protonix Ec Tab) 40 mg PO DAILY [facility] Last Admin: 08/10/17 08:20 Dose: 40 mg Tramadol HCl (Ultram) 50 mg PO Q6 PRN PRN Reason: Pain, moderate (4-7) Last Admin: 08/10/17 08:17 Dose: 50 mg - Labs Labs: 08/09/17 08:32 08/10/17 06:25 PT 13.2 Seconds (9.8-13.1) H 08/07/17 14:20 INR 1.2 (0.9-1.2) 08/07/17 14:20 APTT 39.1 Seconds (25.6-37.1) H 07/22/17 05:20 - Constitutional Appears: Non-toxic, Cachectic, Chronically Ill - Head Exam Head Exam: NORMOCEPHALIC - Eye Exam Eye Exam: PERRL. absent: Scleral icterus - ENT Exam ENT Exam: Mucous Membranes Dry - Neck Exam Neck Exam: absent: Lymphadenopathy - Respiratory Exam Respiratory Exam: Decreased Breath Sounds, Rhonchi - Cardiovascular Exam Cardiovascular Exam: REGULAR RHYTHM, +S1, +S2 - GI/Abdominal Exam GI & Abdominal Exam: Distended - Rectal Exam Rectal Exam: Deferred - Exam Exam: NORMAL INSPECTION Assessment and Plan (1) Abdominal pain Status: Acute (2) COPD (chronic obstructive pulmonary disease) Status: Acute (3) Essential (primary) hypertension Status: Acute (4) Hx of atrial fibrillation, no current medication Status: Acute (5) Intestinal perforation Status: Acute (6) Perforated abdominal viscus Status: Acute (7) Sepsis Status: Acute - Assessment and Plan (Free Text) Assessment: 72M s/p ex-lap for perforated viscous with Small bowel resection with anastomosis POD#32, with post-op leak and colocutaneous fistula cont iv antibiotics poor prognosis
[2017-08-10] MEDS ORDERED: [UNRECOGNIZED DRUG - NUTRITION] IV ONE (15:15)
--- NOTE | 2017-08-10 22:52 | CP.PCM.PN ---
Subjective - Date & Time of Evaluation Date of Evaluation: 08/10/17 Time of Evaluation: 19:15 - Subjective Subjective: Has some abdominal pain. Objective - Vital Signs/Intake and Output Vital Signs (last 24 hours): Temp Pulse Resp BP Pulse Ox 98.2 F 58 L 20 98/56 L 98 08/10/17 17:17 08/10/17 22:04 08/10/17 17:17 08/10/17 22:04 08/10/17 17:17 Intake and Output: 08/10/17 08/11/17 18:59 06:59 Intake Total 720 Output Total 3000 Balance -2280 - Medications Medications: Current Medications Acetaminophen (Tylenol 325mg Tab) 650 mg PO Q4 PRN PRN Reason: Pain, moderate (4-7) Last Admin: 08/08/17 09:19 Dose: 650 mg Bisacodyl (Dulcolax) 10 mg [place] DAILY PRN PRN Reason: Constipation Last Admin: 08/07/17 14:18 Dose: 10 mg Cyanocobalamin (Vitamin B12 1000 Mcg Tab) 1,000 mcg PO DAILY [facility] Last Admin: 08/10/17 08:20 Dose: 1,000 mcg Cyclobenzaprine HCl (Flexeril) 10 mg PO Q12 [facility] Last Admin: 08/10/17 21:59 Dose: 10 mg Epoetin Mata (Procrit) 20,000 unit SC MWF [facility] Last Admin: 08/10/17 09:13 Dose: 20,000 unit Ferrous Sulfate (Feosol Liq) 300 mg PO BID [facility] Last Admin: 08/10/17 17:05 Dose: 300 mg Furosemide (Lasix) 20 mg IVP DAILY [facility] Last Admin: 08/10/17 08:18 Dose: 20 mg Guaifenesin/Dextromethorphan (Robitussin Dm) 10 ml PO Q6 PRN PRN Reason: Cough Last Admin: 08/07/17 08:34 Dose: 10 ml Heparin Sodium (Porcine) (Heparin) 5,000 units SC Q8 [facility] PRN Reason: Protocol Last Admin: 08/10/17 17:03 Dose: 5,000 units Fluconazole (Diflucan Iv 100 Mg/50 Ml Ns) 50 mls @ 50 mls/hr IVPB DAILY [facility] PRN Reason: Protocol Last Admin: 08/10/17 08:18 Dose: 50 mls/hr Piperacillin Sod/Tazobactam (Sod 3.375 gm/ Sodium Chloride) 100 mls @ 100 mls/ hr IVPB Q8@0100,0900,1700 [facility] PRN Reason: Protocol Last Admin: 08/10/17 17:03 Dose: 100 mls/hr Fat Emulsion Intravenous (Intralipid 20%) 250 mls @ 0 mls/hr IV .Q0M [facility] PRN Reason: UD Stop: 08/11/17 09:01 Last Admin: 08/10/17 15:13 Dose: 250 mls/hr Chromium/Copper/Manganese/Zinc 3 ml/ Multivitamins/Vitamin C 10 ml/ Amino Acids/ Electrolytes/Dextrose 2,013 mls @ 90 mls/hr IV .[id number] ONE Stop: 08/11/17 13:36 Insulin Human Lispro (Humalog) 0 units SC Q6H [facility] PRN Reason: Protocol Last Admin: 08/10/17 19:27 Dose: Not Given Lidocaine (Lidoderm) 1 ea TD DAILY [facility] Last Admin: 08/10/17 08:19 Dose: 1 ea Metoprolol Tartrate (Lopressor) 50 mg PO Q12 [facility] Last Admin: 08/10/17 22:04 Dose: Not Given Pantoprazole Sodium (Protonix Ec Tab) 40 mg PO DAILY [facility] Last Admin: 08/10/17 08:20 Dose: 40 mg Tramadol HCl (Ultram) 50 mg PO Q6 PRN PRN Reason: Pain, moderate (4-7) Last Admin: 08/10/17 22:05 Dose: 50 mg - Labs Labs: 08/09/17 08:32 08/10/17 06:25 PT 13.2 Seconds (9.8-13.1) H 08/07/17 14:20 INR 1.2 (0.9-1.2) 08/07/17 14:20 APTT 39.1 Seconds (25.6-37.1) H 07/22/17 05:20 - Head Exam Head Exam: ATRAUMATIC - Eye Exam Eye Exam: Normal appearance - ENT Exam ENT Exam: Mucous Membranes Dry - Respiratory Exam Respiratory Exam: NORMAL BREATHING PATTERN - Cardiovascular Exam Cardiovascular Exam: +S1, +S2 - GI/Abdominal Exam GI & Abdominal Exam: Normal Bowel Sounds Assessment and Plan (1) Pancytopenia Assessment & Plan: mild leukopenia H/H improved s/p PRBC transfusion on Procrit plt count stabilized Status: Acute
--- NOTE | 2017-08-11 00:51 | CP.PCM.PN ---
Subjective - Date & Time of Evaluation Date of Evaluation: 08/10/17 Time of Evaluation: 10:50 - Subjective Subjective: Patient is s/p IR drainage of abdominal abscess, open mid abdominal wound with fecal drainage, c/o mild pain Objective - Vital Signs/Intake and Output Vital Signs (last 24 hours): Temp Pulse Resp BP Pulse Ox 98.2 F 58 L 20 98/56 L 98 08/10/17 17:17 08/10/17 22:04 08/10/17 17:17 08/10/17 22:04 08/10/17 17:17 Intake and Output: 08/10/17 08/11/17 18:59 06:59 Intake Total 720 720 Output Total 3000 Balance -2280 720 - Medications Medications: Current Medications Acetaminophen (Tylenol 325mg Tab) 650 mg PO Q4 PRN PRN Reason: Pain, moderate (4-7) Last Admin: 08/08/17 09:19 Dose: 650 mg Bisacodyl (Dulcolax) 10 mg [place] DAILY PRN PRN Reason: Constipation Last Admin: 08/07/17 14:18 Dose: 10 mg Cyanocobalamin (Vitamin B12 1000 Mcg Tab) 1,000 mcg PO DAILY [facility] Last Admin: 08/10/17 08:20 Dose: 1,000 mcg Cyclobenzaprine HCl (Flexeril) 10 mg PO Q12 [facility] Last Admin: 08/10/17 21:59 Dose: 10 mg Epoetin Karolyn (Procrit) 20,000 unit SC MWF [facility] Last Admin: 08/10/17 09:13 Dose: 20,000 unit Ferrous Sulfate (Feosol Liq) 300 mg PO BID [facility] Last Admin: 08/10/17 17:05 Dose: 300 mg Furosemide (Lasix) 20 mg IVP DAILY [facility] Last Admin: 08/10/17 08:18 Dose: 20 mg Guaifenesin/Dextromethorphan (Robitussin Dm) 10 ml PO Q6 PRN PRN Reason: Cough Last Admin: 08/07/17 08:34 Dose: 10 ml Heparin Sodium (Porcine) (Heparin) 5,000 units SC Q8 [facility] PRN Reason: Protocol Last Admin: 08/10/17 17:03 Dose: 5,000 units Fluconazole (Diflucan Iv 100 Mg/50 Ml Ns) 50 mls @ 50 mls/hr IVPB DAILY [facility] PRN Reason: Protocol Last Admin: 08/10/17 08:18 Dose: 50 mls/hr Piperacillin Sod/Tazobactam (Sod 3.375 gm/ Sodium Chloride) 100 mls @ 100 mls/ hr IVPB Q8@0100,0900,1700 [facility] PRN Reason: Protocol Last Admin: 08/10/17 17:03 Dose: 100 mls/hr Fat Emulsion Intravenous (Intralipid 20%) 250 mls @ 0 mls/hr IV .Q0M [facility] PRN Reason: UD Stop: 08/11/17 09:01 Last Admin: 08/10/17 15:13 Dose: 250 mls/hr Chromium/Copper/Manganese/Zinc 3 ml/ Multivitamins/Vitamin C 10 ml/ Amino Acids/ Electrolytes/Dextrose 2,013 mls @ 90 mls/hr IV .[id number] ONE Stop: 08/11/17 13:36 Insulin Human Lispro (Humalog) 0 units SC Q6H [facility] PRN Reason: Protocol Last Admin: 08/10/17 23:05 Dose: Not Given Lidocaine (Lidoderm) 1 ea TD DAILY [facility] Last Admin: 08/10/17 08:19 Dose: 1 ea Metoprolol Tartrate (Lopressor) 50 mg PO Q12 [facility] Last Admin: 08/10/17 22:04 Dose: Not Given Pantoprazole Sodium (Protonix Ec Tab) 40 mg PO DAILY [facility] Last Admin: 08/10/17 08:20 Dose: 40 mg Potassium Chloride (Potassium Chloride Oral Soln) 20 meq PO DAILY [facility] Tramadol HCl (Ultram) 50 mg PO Q6 PRN PRN Reason: Pain, moderate (4-7) Last Admin: 08/10/17 22:05 Dose: 50 mg - Labs Labs: 08/09/17 08:32 08/10/17 06:25 PT 13.2 Seconds (9.8-13.1) H 08/07/17 14:20 INR 1.2 (0.9-1.2) 08/07/17 14:20 APTT 39.1 Seconds (25.6-37.1) H 07/22/17 05:20 - Constitutional Appears: Cachectic, Chronically Ill - Head Exam Head Exam: ATRAUMATIC, NORMAL INSPECTION - Eye Exam Eye Exam: EOMI, Normal appearance Pupil Exam: NORMAL ACCOMODATION - ENT Exam ENT Exam: Mucous Membranes Dry - Neck Exam Neck Exam: Full ROM, Normal Inspection - Respiratory Exam Respiratory Exam: Clear to Ausculation Bilateral - Cardiovascular Exam Cardiovascular Exam: REGULAR RHYTHM - GI/Abdominal Exam GI & Abdominal Exam: Tenderness Additional comments: tender to the lower left quadrant feculent output through colocutaneous fistula - Neurological Exam Neurological Exam: Alert, Awake, Oriented x3 - Psychiatric Exam Psychiatric exam: Normal Mood - Skin Skin Exam: Dry, Normal Color, Warm Assessment and Plan - Assessment and Plan (Free Text) Assessment: 72M s/p ex-lap for perforated viscous with Small bowel resection with anastomosis POD#31, with post-op leak and colocutaneous fistul (1) Abdominal pain (2) Abscess (3) Atrial fibrillation (4) COPD (chronic obstructive pulmonary disease) (5) Essential (primary) hypertension (6) Hx of atrial fibrillation, no current medication (7) Intestinal perforation (8) Perforated abdominal viscus (9) Thrombocytopenia (10) Anemia Plan: c/w present management. s/p ex-lap for perforated viscous with Small bowel resection with anastomosis, with post-op leak and EC fistula; POD 31 Surgery recommendations appreciated heme/onc recommendations appreciated pain management recommendations appreciated infectious disease recommendations appreciated leukopenia and anemia zosyn 3.375 mg IV Q8h day 1 TPN @ 60 mL/h pain management: tylenol 650 mg PO Q4h c/w epoetin karolyn c/w pulmonary sport bed f/u fluid culture/cytology DVT PPX: heparin 5000 SC Q8h
[2017-08-11] MEDS: Piperacillin/Tazobact 3.375 GM in Sodium Chloride 0.9% 100 ML IVPB SCH ×3 (01:00→15:59)
[2017-08-11] MEDS ORDERED: POTASSIUM CHLORIDE IV ONE ×3 (03:00→15:30)
[2017-08-11] MEDS ORDERED: [UNRECOGNIZED DRUG - OTHER] IV ONE ×3 (03:00→15:30)
[2017-08-11] MEDS ORDERED: SODIUM ACETATE IV ONE ×3 (03:00→15:30)
[2017-08-11] MEDS ORDERED: SODIUM PHOSPHATE IV ONE ×3 (03:00→15:30)
[2017-08-11] MEDS: Insulin Lispro (humaLOG) 100 Units/ml Inj SC SCH ×4 (05:31→22:16)
--- NOTE | 2017-08-11 07:53 | CP.PCM.PN ---
<Wojciech Miller - Last Filed: 08/11/17 07:53> Subjective - Date & Time of Evaluation Date of Evaluation: 08/11/17 Time of Evaluation: 07:51 - Subjective Subjective: SURGERY NOTE FOR DR. WORTHY 72M seen and examined at bedside. No acute events overnight. No complaints. Objective - Vital Signs/Intake and Output Vital Signs (last 24 hours): Temp Pulse Resp BP Pulse Ox 98.2 F 59 L 19 103/47 L 98 08/11/17 00:24 08/11/17 00:24 08/11/17 00:24 08/11/17 00:24 08/11/17 00:24 Intake and Output: 08/11/17 08/11/17 06:59 18:59 Intake Total 720 Balance 720 - Medications Medications: Current Medications Acetaminophen (Tylenol 325mg Tab) 650 mg PO Q4 PRN PRN Reason: Pain, moderate (4-7) Last Admin: 08/08/17 09:19 Dose: 650 mg Bisacodyl (Dulcolax) 10 mg [place] DAILY PRN PRN Reason: Constipation Last Admin: 08/07/17 14:18 Dose: 10 mg Cyanocobalamin (Vitamin B12 1000 Mcg Tab) 1,000 mcg PO DAILY [facility] [place] Last Admin: 08/10/17 08:20 Dose: 1,000 mcg Cyclobenzaprine HCl (Flexeril) 10 mg PO Q12 [facility] [place] Last Admin: 08/10/17 21:59 Dose: 10 mg Epoetin Mata (Procrit) 20,000 unit SC MWF [facility] [place] Last Admin: 08/10/17 09:13 Dose: 20,000 unit Ferrous Sulfate (Feosol Liq) 300 mg PO BID [facility] [place] Last Admin: 08/10/17 17:05 Dose: 300 mg Furosemide (Lasix) 20 mg IVP DAILY [facility] [place] Last Admin: 08/10/17 08:18 Dose: 20 mg Guaifenesin/Dextromethorphan (Robitussin Dm) 10 ml PO Q6 PRN PRN Reason: Cough Last Admin: 08/07/17 08:34 Dose: 10 ml Heparin Sodium (Porcine) (Heparin) 5,000 units SC Q8 [facility] PRN Reason: Protocol Last Admin: 08/11/17 01:01 Dose: 5,000 units Fluconazole (Diflucan Iv 100 Mg/50 Ml Ns) 50 mls @ 50 mls/hr IVPB DAILY [facility] PRN Reason: Protocol Last Admin: 08/10/17 08:18 Dose: 50 mls/hr Piperacillin Sod/Tazobactam (Sod 3.375 gm/ Sodium Chloride) 100 mls @ 100 mls/ hr IVPB Q8@0100,0900,1700 [facility] PRN Reason: Protocol Last Admin: 08/11/17 01:00 Dose: 100 mls/hr Fat Emulsion Intravenous (Intralipid 20%) 250 mls @ 0 mls/hr IV .Q0M [facility] PRN Reason: UD Stop: 08/11/17 09:01 Last Admin: 08/10/17 15:13 Dose: 250 mls/hr Chromium/Copper/Manganese/Zinc 3 ml/ Multivitamins/Vitamin C 10 ml/ Amino Acids/ Electrolytes/Dextrose 2,013 mls @ 90 mls/hr IV .[id number] ONE Stop: 08/11/17 13:36 Insulin Human Lispro (Humalog) 0 units SC Q6H [facility] PRN Reason: Protocol Last Admin: 08/11/17 05:31 Dose: Not Given Lidocaine (Lidoderm) 1 ea TD DAILY [facility] [place] Last Admin: 08/10/17 08:19 Dose: 1 ea Metoprolol Tartrate (Lopressor) 50 mg PO Q12 [facility] Last Admin: 08/10/17 22:04 Dose: Not Given Pantoprazole Sodium (Protonix Ec Tab) 40 mg PO DAILY [facility] [place] Last Admin: 08/10/17 08:20 Dose: 40 mg Potassium Chloride (Potassium Chloride Oral Soln) 20 meq PO DAILY [facility] [place] Tramadol HCl (Ultram) 50 mg PO Q6 PRN PRN Reason: Pain, moderate (4-7) Last Admin: 08/11/17 05:04 Dose: 50 mg - Labs Labs: 08/09/17 08:32 08/10/17 06:25 PT 13.2 Seconds (9.8-13.1) H 08/07/17 14:20 INR 1.2 (0.9-1.2) 08/07/17 14:20 APTT 39.1 Seconds (25.6-37.1) H 07/22/17 05:20 - Constitutional Appears: Non-toxic, No Acute Distress - Respiratory Exam Respiratory Exam: Clear to Ausculation Bilateral, NORMAL BREATHING PATTERN - Cardiovascular Exam Cardiovascular Exam: REGULAR RHYTHM, +S1, +S2 - GI/Abdominal Exam GI & Abdominal Exam: Soft, Tenderness. absent: Distended, Firm, Guarding, Rigid , Rebound Additional comments: superior midline incision draining liquid stool into ostomy bag right flank pelvic drain in place - Neurological Exam Neurological Exam: Alert, Awake - Skin Skin Exam: Dry, Intact, Normal Color, Warm Assessment and Plan - Assessment and Plan (Free Text) Assessment: 72M s/p ex-lap for perforated viscous with Small bowel resection with anastomosis POD#34, with post-op leak and colocutaneous fistula Plan: - Aim TPN goals 3300 candido per day - no tube feeds - monitor fistula output - Pelvic drain output - c/w pain control - Out of bed, frequent repositioning Further recs discuss with Dr. Zaynab Miller, PGY2 <Mook Worthy - Last Filed: 08/15/17 15:34> Objective - Vital Signs/Intake and Output Vital Signs (last 24 hours): Temp Pulse Resp BP Pulse Ox 97.6 F 60 20 136/78 96 08/15/17 08:23 08/15/17 09:43 08/15/17 08:23 08/15/17 09:43 08/15/17 08:23 Intake and Output: 08/15/17 08/15/17 06:59 18:59 Intake Total 860 Output Total 1700 Balance -840 - Medications Medications: Current Medications Acetaminophen (Tylenol 325mg Tab) 650 mg PO Q4 PRN PRN Reason: Pain, moderate (4-7) Last Admin: 08/12/17 18:42 Dose: 650 mg Bisacodyl (Dulcolax) 10 mg AL DAILY PRN PRN Reason: Constipation Last Admin: 08/07/17 14:18 Dose: 10 mg Cyanocobalamin (Vitamin B12 1000 Mcg Tab) 1,000 mcg PO DAILY [facility] Last Admin: 08/15/17 09:41 Dose: 1,000 mcg Cyclobenzaprine HCl (Flexeril) 10 mg PO Q12 [facility] [place] Last Admin: 08/15/17 09:40 Dose: 10 mg Epoetin Mata (Procrit) 20,000 unit SC MWF [facility] [place] Last Admin: 08/15/17 09:43 Dose: 20,000 unit Ferrous Sulfate (Feosol Liq) 300 mg PO BID [facility] [place] Last Admin: 08/15/17 09:40 Dose: 300 mg Guaifenesin/Dextromethorphan (Robitussin Dm) 10 ml PO Q6 PRN PRN Reason: Cough Last Admin: 08/07/17 08:34 Dose: 10 ml Heparin Sodium (Porcine) (Heparin) 5,000 units SC Q8 [facility] PRN Reason: Protocol Last Admin: 08/15/17 09:40 Dose: 5,000 units Fluconazole (Diflucan Iv 100 Mg/50 Ml Ns) 50 mls @ 50 mls/hr IVPB DAILY [facility] PRN Reason: Protocol Last Admin: 08/15/17 09:51 Dose: 50 mls/hr Piperacillin Sod/Tazobactam (Sod 3.375 gm/ Sodium Chloride) 100 mls @ 100 mls/ hr IVPB Q8@0100,0900,1700 [facility] PRN Reason: Protocol Last Admin: 08/15/17 09:42 Dose: 100 mls/hr Chromium/Copper/Manganese/Zinc 3 ml/ Multivitamins/Vitamin C 10 ml/ Amino Acids/ Electrolytes/Dextrose 1,013 mls @ 55 mls/hr IV .[id number] ONE Stop: 08/17/19 18:25 Insulin Human Lispro (Humalog) 0 units SC Q6H [facility] PRN Reason: Protocol Last Admin: 08/15/17 09:40 Dose: Not Given Lamivudine (Epivir) 150 mg PO DAILY [facility] PRN Reason: Protocol Lidocaine (Lidoderm) 1 ea TD DAILY [facility] [place] Last Admin: 08/15/17 09:41 Dose: 1 ea Metoprolol Tartrate (Lopressor) 50 mg PO Q12 [facility] Last Admin: 08/15/17 09:43 Dose: 50 mg Pantoprazole Sodium (Protonix Ec Tab) 40 mg PO DAILY [facility] [place] Last Admin: 08/15/17 09:44 Dose: 40 mg Tramadol HCl (Ultram) 50 mg PO Q6 PRN PRN Reason: Pain, moderate (4-7) Last Admin: 08/15/17 00:35 Dose: 50 mg - Labs Labs: 08/15/17 11:03 08/15/17 09:02 PT 13.2 Seconds (9.8-13.1) H 08/07/17 14:20 INR 1.2 (0.9-1.2) 08/07/17 14:20 APTT 39.1 Seconds (25.6-37.1) H 07/22/17 05:20 Attending/Attestation - Attestation I have personally seen and examined this patient.: Yes I have fully participated in the care of the patient.: Yes I have reviewed all pertinent clinical information, including history, physical exam and plan: Yes Notes (Text): Pt was seen and examined at bedside Agree with above note and assessment Pt is improving clinically c.w current mx Plan d.w pt in detail
[2017-08-11 08:01] LABS: HEMOGLOBIN 10.2 g/dL (12.0-18.0); MEAN CELL VOLUME 96.6 fl (80.0-94.0); MEAN CORPUSCULAR HEMOGLOBIN 32.1 pg (27.0-31.0); MEAN CORPUSCULAR HGB CONC 33.2 g/dL (33.0-37.0); RBC 3.18 Mil/uL (4.40-5.90); RED CELL DISTRIBUTION WIDTH 16.3 % (11.5-14.5)
[2017-08-11 08:30] LABS: ALB/GLOB RATIO 0.6 (1.0-2.1); ALBUMIN 1.8 g/dL (3.5-5.0); ALT/SGPT 33 U/L (21-72); AST/SGOT 20 U/L (17-59); BLOOD UREA NITROGEN 23 mg/dl (9-20); CALCIUM 6.7 mg/dL (8.4-10.2); GFR AFRICAN-AMERICAN > 60; GFR NON-AFRICAN AMERICAN > 60
[2017-08-11] MEDS: Fluconazole IV 100mg/50 ml NS 50 ML IVPB SCH (08:48)
[2017-08-11] MEDS: Ferrous Sulfate 300 mg/5 mL Liq UD PO SCH ×2 (08:49→17:02)
[2017-08-11] MEDS: Lidocaine 5% Patch TD SCH (08:53)
[2017-08-11] MEDS: Potassium Chloride 20 mEq/15 ml LIQ UD PO SCH (08:54)
[2017-08-11] MEDS: Pantoprazole 40 mg EC Tab PO SCH (08:55)
--- NOTE | 2017-08-11 14:27 | CP.PCM.PN ---
Subjective - Date & Time of Evaluation Date of Evaluation: 08/11/17 Time of Evaluation: 14:27 - Subjective Subjective: Patient seen in the room resting, very weak He has a poor overall prognosis not doing therapies, too weak NPO continue supportive care Objective - Vital Signs/Intake and Output Vital Signs (last 24 hours): Temp Pulse Resp BP Pulse Ox 97.3 F L 64 18 110/62 96 08/11/17 08:20 08/11/17 08:20 08/11/17 08:20 08/11/17 08:51 08/11/17 08:20 Intake and Output: 08/11/17 08/11/17 06:59 18:59 Intake Total 720 Balance 720 - Medications Medications: Current Medications Acetaminophen (Tylenol 325mg Tab) 650 mg PO Q4 PRN PRN Reason: Pain, moderate (4-7) Last Admin: 08/08/17 09:19 Dose: 650 mg Bisacodyl (Dulcolax) 10 mg [place] DAILY PRN PRN Reason: Constipation Last Admin: 08/07/17 14:18 Dose: 10 mg Cyanocobalamin (Vitamin B12 1000 Mcg Tab) 1,000 mcg PO DAILY [facility] Last Admin: 08/11/17 08:55 Dose: 1,000 mcg Cyclobenzaprine HCl (Flexeril) 10 mg PO Q12 [facility] Last Admin: 08/11/17 08:49 Dose: 10 mg Epoetin Mata (Procrit) 20,000 unit SC MWF [facility] Last Admin: 08/10/17 09:13 Dose: 20,000 unit Ferrous Sulfate (Feosol Liq) 300 mg PO BID [facility] Last Admin: 08/11/17 08:49 Dose: 300 mg Furosemide (Lasix) 20 mg IVP DAILY [facility] Last Admin: 08/11/17 08:51 Dose: 20 mg Guaifenesin/Dextromethorphan (Robitussin Dm) 10 ml PO Q6 PRN PRN Reason: Cough Last Admin: 08/07/17 08:34 Dose: 10 ml Heparin Sodium (Porcine) (Heparin) 5,000 units SC Q8 [facility] PRN Reason: Protocol Last Admin: 08/11/17 08:50 Dose: 5,000 units Fluconazole (Diflucan Iv 100 Mg/50 Ml Ns) 50 mls @ 50 mls/hr IVPB DAILY [facility] PRN Reason: Protocol Last Admin: 08/11/17 08:48 Dose: 50 mls/hr Piperacillin Sod/Tazobactam (Sod 3.375 gm/ Sodium Chloride) 100 mls @ 100 mls/ hr IVPB Q8@0100,0900,1700 [facility] PRN Reason: Protocol Last Admin: 08/11/17 08:56 Dose: 100 mls/hr Insulin Human Lispro (Humalog) 0 units SC Q6H [facility] PRN Reason: Protocol Last Admin: 08/11/17 11:27 Dose: 1 units Lidocaine (Lidoderm) 1 ea TD DAILY [facility] Last Admin: 08/11/17 08:53 Dose: 1 ea Metoprolol Tartrate (Lopressor) 50 mg PO Q12 [facility] Last Admin: 08/11/17 08:54 Dose: 50 mg Pantoprazole Sodium (Protonix Ec Tab) 40 mg PO DAILY [facility] Last Admin: 08/11/17 08:55 Dose: 40 mg Potassium Chloride (Potassium Chloride Oral Soln) 20 meq PO DAILY [facility] Last Admin: 08/11/17 08:54 Dose: 20 meq Tramadol HCl (Ultram) 50 mg PO Q6 PRN PRN Reason: Pain, moderate (4-7) Last Admin: 08/11/17 12:08 Dose: 50 mg - Labs Labs: 08/11/17 06:00 08/11/17 06:00 PT 13.2 Seconds (9.8-13.1) H 08/07/17 14:20 INR 1.2 (0.9-1.2) 08/07/17 14:20 APTT 39.1 Seconds (25.6-37.1) H 07/22/17 05:20
[2017-08-11] MEDS ORDERED: Magnesium Sulfate 2 GM in Sodium Chloride 0.9% 100 ML IVPB ONE (15:41)
[2017-08-11] MEDS ORDERED: Potassium Phosphate 30 MMOLE in Sodium Chloride 0.9% 250 ML IV ONE (15:45)
[2017-08-11] MEDS ORDERED: Magnesium Sulfate 2 gm/50 ml 2 GM/50 ML BAG IVPB ONE (16:15)
--- NOTE | 2017-08-11 16:50 | CP.PCM.PN ---
Subjective - Date & Time of Evaluation Date of Evaluation: 08/11/17 Time of Evaluation: 16:15 - Subjective Subjective: Has some abdominal pain. Objective - Vital Signs/Intake and Output Vital Signs (last 24 hours): Temp Pulse Resp BP Pulse Ox 98.3 F 60 20 97/60 L 100 08/11/17 16:29 08/11/17 16:29 08/11/17 16:29 08/11/17 16:29 08/11/17 16:29 Intake and Output: 08/11/17 08/11/17 06:59 18:59 Intake Total 720 Balance 720 - Medications Medications: Current Medications Acetaminophen (Tylenol 325mg Tab) 650 mg PO Q4 PRN PRN Reason: Pain, moderate (4-7) Last Admin: 08/08/17 09:19 Dose: 650 mg Bisacodyl (Dulcolax) 10 mg [place] DAILY PRN PRN Reason: Constipation Last Admin: 08/07/17 14:18 Dose: 10 mg Cyanocobalamin (Vitamin B12 1000 Mcg Tab) 1,000 mcg PO DAILY [facility] Last Admin: 08/11/17 08:55 Dose: 1,000 mcg Cyclobenzaprine HCl (Flexeril) 10 mg PO Q12 [facility] Last Admin: 08/11/17 08:49 Dose: 10 mg Epoetin Mata (Procrit) 20,000 unit SC MWF [facility] Last Admin: 08/10/17 09:13 Dose: 20,000 unit Ferrous Sulfate (Feosol Liq) 300 mg PO BID [facility] Last Admin: 08/11/17 08:49 Dose: 300 mg Guaifenesin/Dextromethorphan (Robitussin Dm) 10 ml PO Q6 PRN PRN Reason: Cough Last Admin: 08/07/17 08:34 Dose: 10 ml Heparin Sodium (Porcine) (Heparin) 5,000 units SC Q8 [facility] PRN Reason: Protocol Last Admin: 08/11/17 08:50 Dose: 5,000 units Fluconazole (Diflucan Iv 100 Mg/50 Ml Ns) 50 mls @ 50 mls/hr IVPB DAILY [facility] PRN Reason: Protocol Last Admin: 08/11/17 08:48 Dose: 50 mls/hr Piperacillin Sod/Tazobactam (Sod 3.375 gm/ Sodium Chloride) 100 mls @ 100 mls/ hr IVPB Q8@0100,0900,1700 [facility] PRN Reason: Protocol Last Admin: 08/11/17 15:59 Dose: 100 mls/hr Sodium Phosphate 10 mmole/Sodium Acetate 30 meq/Potassium Chloride 12 meq/ Potassium Phosphate 12 mmole/Potassium Acetate 15 meq/Magnesium Sulfate 10 meq/ Calcium Gluconate 4.5 meq/Chromium/Copper/Manganese/Zinc 3 ml/ Multivitamins/ Vitamin C 10 ml/ Amino Acids 1,060.9737 mls @ 90 mls/hr IV .[id number] ONE Stop: 08/12/17 03:17 Potassium Phosphate 30 mmole/ (Sodium Chloride) 260 mls @ 65 mls/hr IV ONCE ONE Stop: 08/11/17 19:44 Sodium Phosphate 10 mmole/Sodium Acetate 30 meq/Potassium Chloride 12 meq/ Potassium Phosphate 12 mmole/Potassium Acetate 15 meq/Magnesium Sulfate 10 meq/ Calcium Gluconate 4.5 meq/Amino Acids 1,047.9737 mls @ 90 mls/hr IV .[id number] ONE Stop: 08/12/17 14:38 Magnesium Sulfate (Magnesium Sulfate 2 Gm/50 Ml Water) 2 gm in 50 mls @ 50 mls/ hr IVPB ONCE ONE PRN Reason: 2 GM/HR Stop: 08/11/17 17:14 Last Admin: 08/11/17 16:25 Dose: 50 mls/hr Insulin Human Lispro (Humalog) 0 units SC Q6H [facility] PRN Reason: Protocol Last Admin: 08/11/17 11:27 Dose: 1 units Lidocaine (Lidoderm) 1 ea TD DAILY [facility] Last Admin: 08/11/17 08:53 Dose: 1 ea Metoprolol Tartrate (Lopressor) 50 mg PO Q12 [facility] Last Admin: 08/11/17 08:54 Dose: 50 mg Pantoprazole Sodium (Protonix Ec Tab) 40 mg PO DAILY [facility] Last Admin: 08/11/17 08:55 Dose: 40 mg Potassium Chloride (Potassium Chloride Oral Soln) 20 meq PO DAILY [facility] Last Admin: 08/11/17 08:54 Dose: 20 meq Tramadol HCl (Ultram) 50 mg PO Q6 PRN PRN Reason: Pain, moderate (4-7) Last Admin: 08/11/17 12:08 Dose: 50 mg - Labs Labs: 08/11/17 06:00 08/11/17 06:00 PT 13.2 Seconds (9.8-13.1) H 08/07/17 14:20 INR 1.2 (0.9-1.2) 08/07/17 14:20 APTT 39.1 Seconds (25.6-37.1) H 07/22/17 05:20 - Head Exam Head Exam: ATRAUMATIC - Eye Exam Eye Exam: Normal appearance - ENT Exam ENT Exam: Mucous Membranes Dry - Respiratory Exam Respiratory Exam: NORMAL BREATHING PATTERN - Cardiovascular Exam Cardiovascular Exam: +S1, +S2 - GI/Abdominal Exam GI & Abdominal Exam: Normal Bowel Sounds Assessment and Plan (1) Pancytopenia Assessment & Plan: mild leukopenia H/H improved s/p PRBC transfusion on Procrit plt count stabilized Status: Acute
--- NOTE | 2017-08-11 21:51 | CP.PCM.PN ---
Subjective - Date & Time of Evaluation Date of Evaluation: 08/11/17 Time of Evaluation: 16:15 - Subjective Subjective: Seen and examined earlier, condition remain the same, no acute changes, no pain now Objective - Vital Signs/Intake and Output Vital Signs (last 24 hours): Temp Pulse Resp BP Pulse Ox 98.3 F 86 20 94/59 L 100 08/11/17 16:29 08/11/17 20:54 08/11/17 16:29 08/11/17 20:54 08/11/17 16:29 Intake and Output: 08/11/17 08/12/17 18:59 06:59 Intake Total 1330 Output Total 2400 Balance -1070 - Medications Medications: Current Medications Acetaminophen (Tylenol 325mg Tab) 650 mg PO Q4 PRN PRN Reason: Pain, moderate (4-7) Last Admin: 08/08/17 09:19 Dose: 650 mg Bisacodyl (Dulcolax) 10 mg [place] DAILY PRN PRN Reason: Constipation Last Admin: 08/07/17 14:18 Dose: 10 mg Cyanocobalamin (Vitamin B12 1000 Mcg Tab) 1,000 mcg PO DAILY [facility] Last Admin: 08/11/17 08:55 Dose: 1,000 mcg Cyclobenzaprine HCl (Flexeril) 10 mg PO Q12 [facility] Last Admin: 08/11/17 20:50 Dose: 10 mg Epoetin Karolyn (Procrit) 20,000 unit SC MWF [facility] Last Admin: 08/10/17 09:13 Dose: 20,000 unit Ferrous Sulfate (Feosol Liq) 300 mg PO BID [facility] Last Admin: 08/11/17 17:02 Dose: 300 mg Guaifenesin/Dextromethorphan (Robitussin Dm) 10 ml PO Q6 PRN PRN Reason: Cough Last Admin: 08/07/17 08:34 Dose: 10 ml Heparin Sodium (Porcine) (Heparin) 5,000 units SC Q8 [facility] PRN Reason: Protocol Last Admin: 08/11/17 16:54 Dose: 5,000 units Fluconazole (Diflucan Iv 100 Mg/50 Ml Ns) 50 mls @ 50 mls/hr IVPB DAILY [facility] PRN Reason: Protocol Last Admin: 08/11/17 08:48 Dose: 50 mls/hr Piperacillin Sod/Tazobactam (Sod 3.375 gm/ Sodium Chloride) 100 mls @ 100 mls/ hr IVPB Q8@0100,0900,1700 [facility] PRN Reason: Protocol Last Admin: 08/11/17 15:59 Dose: 100 mls/hr Sodium Phosphate 10 mmole/Sodium Acetate 30 meq/Potassium Chloride 12 meq/ Potassium Phosphate 12 mmole/Potassium Acetate 15 meq/Magnesium Sulfate 10 meq/ Calcium Gluconate 4.5 meq/Chromium/Copper/Manganese/Zinc 3 ml/ Multivitamins/ Vitamin C 10 ml/ Amino Acids 1,060.9737 mls @ 90 mls/hr IV .[id number] ONE Stop: 08/12/17 03:17 Sodium Phosphate 10 mmole/Sodium Acetate 30 meq/Potassium Chloride 12 meq/ Potassium Phosphate 12 mmole/Potassium Acetate 15 meq/Magnesium Sulfate 10 meq/ Calcium Gluconate 4.5 meq/Amino Acids 1,047.9737 mls @ 90 mls/hr IV .[id number] ONE Stop: 08/12/17 14:38 Insulin Human Lispro (Humalog) 0 units SC Q6H [facility] PRN Reason: Protocol Last Admin: 08/11/17 17:33 Dose: Not Given Lidocaine (Lidoderm) 1 ea TD DAILY [facility] Last Admin: 08/11/17 08:53 Dose: 1 ea Metoprolol Tartrate (Lopressor) 50 mg PO Q12 [facility] Last Admin: 08/11/17 20:54 Dose: Not Given Pantoprazole Sodium (Protonix Ec Tab) 40 mg PO DAILY [facility] Last Admin: 08/11/17 08:55 Dose: 40 mg Potassium Chloride (Potassium Chloride Oral Soln) 20 meq PO DAILY [facility] Last Admin: 08/11/17 08:54 Dose: 20 meq Tramadol HCl (Ultram) 50 mg PO Q6 PRN PRN Reason: Pain, moderate (4-7) Last Admin: 08/11/17 20:49 Dose: 50 mg - Labs Labs: 08/11/17 06:00 08/11/17 06:00 PT 13.2 Seconds (9.8-13.1) H 08/07/17 14:20 INR 1.2 (0.9-1.2) 08/07/17 14:20 APTT 39.1 Seconds (25.6-37.1) H 07/22/17 05:20 - Constitutional Appears: No Acute Distress, Cachectic, Chronically Ill - Head Exam Head Exam: ATRAUMATIC, NORMAL INSPECTION - Eye Exam Eye Exam: EOMI, Normal appearance Pupil Exam: NORMAL ACCOMODATION - ENT Exam ENT Exam: Mucous Membranes Dry - Neck Exam Neck Exam: Full ROM - Respiratory Exam Respiratory Exam: Clear to Ausculation Bilateral - Cardiovascular Exam Cardiovascular Exam: REGULAR RHYTHM - Extremities Exam Extremities Exam: Full ROM - Back Exam Back Exam: NORMAL INSPECTION - Neurological Exam Neurological Exam: Alert, Awake, Oriented x3 - Psychiatric Exam Psychiatric exam: Normal Affect - Skin Skin Exam: Dry Additional comments: Abdominal wound Assessment and Plan - Assessment and Plan (Free Text) Assessment: 72M s/p ex-lap for perforated viscous with Small bowel resection with anastomosis POD#32, with post-op leak and colocutaneous fistul (1) Abdominal pain (2) Abscess (3) Atrial fibrillation (4) COPD (chronic obstructive pulmonary disease) (5) Essential (primary) hypertension (6) Hx of atrial fibrillation, no current medication (7) Intestinal perforation (8) Perforated abdominal viscus (9) Thrombocytopenia (10) Anemia Plan: c/w present management. s/p ex-lap for perforated viscous with Small bowel resection with anastomosis, with post-op leak and EC fistula; POD 31 Surgery recommendations appreciated heme/onc recommendations appreciated pain management recommendations appreciated infectious disease recommendations appreciated leukopenia and anemia zosyn 3.375 mg IV Q8h day 1 TPN @ 60 mL/h pain management: tylenol 650 mg PO Q4h c/w epoetin karolyn c/w pulmonary sport bed f/u fluid culture/cytology DVT PPX: heparin 5000 SC Q8h
[2017-08-11] MEDS ORDERED: Potassium Chloride 20 mEq/15 ml LIQ UD PO ONE (21:56)
[2017-08-11 22:39] LABS: BLOOD UREA NITROGEN 22 mg/dl (9-20); GFR AFRICAN-AMERICAN > 60; GFR NON-AFRICAN AMERICAN > 60
[2017-08-11 22:40] LABS: CALCIUM 7.2 mg/dL (8.4-10.2)
[2017-08-12] MEDS: Piperacillin/Tazobact 3.375 GM in Sodium Chloride 0.9% 100 ML IVPB SCH ×3 (01:06→16:31)
[2017-08-12] MEDS ORDERED: [UNRECOGNIZED DRUG - OTHER] IV ONE (03:00)
[2017-08-12] MEDS ORDERED: SODIUM PHOSPHATE IV ONE (03:00)
[2017-08-12] MEDS ORDERED: SODIUM ACETATE IV ONE (03:00)
[2017-08-12] MEDS ORDERED: POTASSIUM CHLORIDE IV ONE (03:00)
[2017-08-12] MEDS: Insulin Lispro (humaLOG) 100 Units/ml Inj SC SCH ×5 (05:03→22:08)
--- NOTE | 2017-08-12 06:49 | CP.PCM.PN ---
<Antonio Soares - Last Filed: 08/12/17 07:48> Subjective - Date & Time of Evaluation Date of Evaluation: 08/12/17 Time of Evaluation: 07:49 - Subjective Subjective: General Surgery Note for Dr. Worthy Patient seen and examined at bedside. No acute events overnight. Admits to mild LLQ pain. Denies fever/chills or nausea/vomiting. Will adjust TPN today. Patient has no other complaints. Objective - Vital Signs/Intake and Output Vital Signs (last 24 hours): Temp Pulse Resp BP Pulse Ox 97.6 F 54 L 20 119/70 100 08/11/17 23:56 08/11/17 23:56 08/11/17 23:56 08/11/17 23:56 08/11/17 23:56 Intake and Output: 08/11/17 08/12/17 18:59 06:59 Intake Total 1330 Output Total 2400 Balance -1070 - Medications Medications: Current Medications Acetaminophen (Tylenol 325mg Tab) 650 mg PO Q4 PRN PRN Reason: Pain, moderate (4-7) Last Admin: 08/08/17 09:19 Dose: 650 mg Bisacodyl (Dulcolax) 10 mg [place] DAILY PRN PRN Reason: Constipation Last Admin: 08/07/17 14:18 Dose: 10 mg Cyanocobalamin (Vitamin B12 1000 Mcg Tab) 1,000 mcg PO DAILY [facility] Last Admin: 08/11/17 08:55 Dose: 1,000 mcg Cyclobenzaprine HCl (Flexeril) 10 mg PO Q12 [facility] Last Admin: 08/11/17 20:50 Dose: 10 mg Epoetin Mata (Procrit) 20,000 unit SC MWF [facility] Last Admin: 08/10/17 09:13 Dose: 20,000 unit Ferrous Sulfate (Feosol Liq) 300 mg PO BID [facility] Last Admin: 08/11/17 17:02 Dose: 300 mg Guaifenesin/Dextromethorphan (Robitussin Dm) 10 ml PO Q6 PRN PRN Reason: Cough Last Admin: 08/07/17 08:34 Dose: 10 ml Heparin Sodium (Porcine) (Heparin) 5,000 units SC Q8 [facility] PRN Reason: Protocol Last Admin: 08/12/17 01:06 Dose: 5,000 units Fluconazole (Diflucan Iv 100 Mg/50 Ml Ns) 50 mls @ 50 mls/hr IVPB DAILY [facility] PRN Reason: Protocol Last Admin: 08/11/17 08:48 Dose: 50 mls/hr Piperacillin Sod/Tazobactam (Sod 3.375 gm/ Sodium Chloride) 100 mls @ 100 mls/ hr IVPB Q8@0100,0900,1700 [facility] PRN Reason: Protocol Last Admin: 08/12/17 01:06 Dose: 100 mls/hr Sodium Phosphate 10 mmole/Sodium Acetate 30 meq/Potassium Chloride 12 meq/ Potassium Phosphate 12 mmole/Potassium Acetate 15 meq/Magnesium Sulfate 10 meq/ Calcium Gluconate 4.5 meq/Amino Acids 1,047.9737 mls @ 90 mls/hr IV .[id number] ONE Stop: 08/12/17 14:38 Insulin Human Lispro (Humalog) 0 units SC Q6H [facility] PRN Reason: Protocol Last Admin: 08/12/17 05:03 Dose: 2 units Lidocaine (Lidoderm) 1 ea TD DAILY [facility] Last Admin: 08/11/17 08:53 Dose: 1 ea Metoprolol Tartrate (Lopressor) 50 mg PO Q12 [facility] Last Admin: 08/11/17 20:54 Dose: Not Given Pantoprazole Sodium (Protonix Ec Tab) 40 mg PO DAILY [facility] Last Admin: 08/11/17 08:55 Dose: 40 mg Potassium Chloride (Potassium Chloride Oral Soln) 20 meq PO DAILY [facility] Last Admin: 08/11/17 08:54 Dose: 20 meq Tramadol HCl (Ultram) 50 mg PO Q6 PRN PRN Reason: Pain, moderate (4-7) Last Admin: 08/11/17 20:49 Dose: 50 mg - Labs Labs: 08/11/17 06:00 08/11/17 20:30 PT 13.2 Seconds (9.8-13.1) H 08/07/17 14:20 INR 1.2 (0.9-1.2) 08/07/17 14:20 APTT 39.1 Seconds (25.6-37.1) H 07/22/17 05:20 - Constitutional Appears: No Acute Distress - Respiratory Exam Respiratory Exam: NORMAL BREATHING PATTERN - Cardiovascular Exam Cardiovascular Exam: REGULAR RHYTHM - GI/Abdominal Exam GI & Abdominal Exam: Soft, Normal Bowel Sounds. absent: Distended, Guarding, Tenderness Additional comments: midline incision draining liquid stool into ostomy bag right flank pelvic drain in place - Neurological Exam Neurological Exam: Alert, Awake - Psychiatric Exam Psychiatric exam: Flat Affect - Skin Skin Exam: Dry, Warm Assessment and Plan - Assessment and Plan (Free Text) Plan: 72M s/p ex-lap for perforated viscous with Small bowel resection with anastomosis POD#35, with post-op leak and colocutaneous fistula, s/p IR drainage - TPN goals 3300 candido per day - Monitor fistula output - Strict I's & O's - Pain control - Frequent repositioning - OOB to chair/Encourage ambulation/Incentive Spirometer - PT/OT - Further recommendations as per Dr. Zaynab Soares PGY1 <Mook Worthy - Last Filed: 08/15/17 15:35> Objective - Vital Signs/Intake and Output Vital Signs (last 24 hours): Temp Pulse Resp BP Pulse Ox 97.6 F 60 20 136/78 96 08/15/17 08:23 08/15/17 09:43 08/15/17 08:23 08/15/17 09:43 08/15/17 08:23 Intake and Output: 08/15/17 08/15/17 06:59 18:59 Intake Total 860 Output Total 1700 Balance -840 - Medications Medications: Current Medications Acetaminophen (Tylenol 325mg Tab) 650 mg PO Q4 PRN PRN Reason: Pain, moderate (4-7) Last Admin: 08/12/17 18:42 Dose: 650 mg Bisacodyl (Dulcolax) 10 mg [place] DAILY PRN PRN Reason: Constipation Last Admin: 08/07/17 14:18 Dose: 10 mg Cyanocobalamin (Vitamin B12 1000 Mcg Tab) 1,000 mcg PO DAILY [facility] Last Admin: 08/15/17 09:41 Dose: 1,000 mcg Cyclobenzaprine HCl (Flexeril) 10 mg PO Q12 [facility] Last Admin: 08/15/17 09:40 Dose: 10 mg Epoetin Mata (Procrit) 20,000 unit SC MWF [facility] Last Admin: 08/15/17 09:43 Dose: 20,000 unit Ferrous Sulfate (Feosol Liq) 300 mg PO BID [facility] Last Admin: 08/15/17 09:40 Dose: 300 mg Guaifenesin/Dextromethorphan (Robitussin Dm) 10 ml PO Q6 PRN PRN Reason: Cough Last Admin: 08/07/17 08:34 Dose: 10 ml Heparin Sodium (Porcine) (Heparin) 5,000 units SC Q8 [facility] PRN Reason: Protocol Last Admin: 08/15/17 09:40 Dose: 5,000 units Fluconazole (Diflucan Iv 100 Mg/50 Ml Ns) 50 mls @ 50 mls/hr IVPB DAILY [facility] PRN Reason: Protocol Last Admin: 08/15/17 09:51 Dose: 50 mls/hr Piperacillin Sod/Tazobactam (Sod 3.375 gm/ Sodium Chloride) 100 mls @ 100 mls/ hr IVPB Q8@0100,0900,1700 [facility] PRN Reason: Protocol Last Admin: 08/15/17 09:42 Dose: 100 mls/hr Chromium/Copper/Manganese/Zinc 3 ml/ Multivitamins/Vitamin C 10 ml/ Amino Acids/ Electrolytes/Dextrose 1,013 mls @ 55 mls/hr IV .[id number] ONE Stop: 08/17/19 18:25 Insulin Human Lispro (Humalog) 0 units SC Q6H [facility] PRN Reason: Protocol Last Admin: 08/15/17 09:40 Dose: Not Given Lamivudine (Epivir) 150 mg PO DAILY [facility] PRN Reason: Protocol Lidocaine (Lidoderm) 1 ea TD DAILY [facility] Last Admin: 08/15/17 09:41 Dose: 1 ea Metoprolol Tartrate (Lopressor) 50 mg PO Q12 [facility] Last Admin: 08/15/17 09:43 Dose: 50 mg Pantoprazole Sodium (Protonix Ec Tab) 40 mg PO DAILY [facility] Last Admin: 08/15/17 09:44 Dose: 40 mg Tramadol HCl (Ultram) 50 mg PO Q6 PRN PRN Reason: Pain, moderate (4-7) Last Admin: 08/15/17 00:35 Dose: 50 mg - Labs Labs: 08/15/17 11:03 08/15/17 09:02 PT 13.2 Seconds (9.8-13.1) H 08/07/17 14:20 INR 1.2 (0.9-1.2) 08/07/17 14:20 APTT 39.1 Seconds (25.6-37.1) H 07/22/17 05:20 Attending/Attestation - Attestation I have personally seen and examined this patient.: Yes I have fully participated in the care of the patient.: Yes I have reviewed all pertinent clinical information, including history, physical exam and plan: Yes Notes (Text): Pt was seen and examined at bedside Agree with above note and assessment Upper GI series on sunday c.w TPN Consent Plan d.w pt in detail
[2017-08-12 09:40] LABS: BLOOD UREA NITROGEN 19 mg/dl (9-20); CALCIUM 7.2 mg/dL (8.4-10.2); GFR AFRICAN-AMERICAN > 60; GFR NON-AFRICAN AMERICAN > 60
[2017-08-12] MEDS: Lidocaine 5% Patch TD SCH (10:14)
[2017-08-12] MEDS: Pantoprazole 40 mg EC Tab PO SCH (10:17)
[2017-08-12] MEDS: Potassium Chloride 20 mEq/15 ml LIQ UD PO SCH (10:17)
[2017-08-12] MEDS: Ferrous Sulfate 300 mg/5 mL Liq UD PO SCH ×2 (10:20→16:27)
[2017-08-12] MEDS: Fluconazole IV 100mg/50 ml NS 50 ML IVPB SCH (11:36)
[2017-08-12] MEDS ORDERED: POTASSIUM PHOSPHATE IV ONE ×5 (12:08→16:30)
[2017-08-12] MEDS ORDERED: POTASSIUM ACETATE IV ONE ×5 (12:08→16:30)
[2017-08-12] MEDS ORDERED: SODIUM CHLORIDE IV ONE ×5 (12:08→16:30)
[2017-08-12] MEDS ORDERED: [UNRECOGNIZED DRUG - OTHER] IV ONE ×5 (12:08→16:30)
--- NOTE | 2017-08-12 13:59 | CP.PCM.PN ---
Subjective - Date & Time of Evaluation Date of Evaluation: 08/12/17 Time of Evaluation: 09:00 - Subjective Subjective: 72M s/p ex-lap for perforated viscous with Small bowel resection with anastomosis POD#34, with post-op leak and colocutaneous fistula Objective - Vital Signs/Intake and Output Vital Signs (last 24 hours): Temp Pulse Resp BP Pulse Ox 97.5 F L 79 18 101/63 97 08/12/17 08:03 08/12/17 10:16 08/12/17 08:03 08/12/17 10:16 08/12/17 08:03 Intake and Output: 08/12/17 08/12/17 06:59 18:59 Intake Total 745 Output Total 750 Balance -5 - Medications Medications: Current Medications Acetaminophen (Tylenol 325mg Tab) 650 mg PO Q4 PRN PRN Reason: Pain, moderate (4-7) Last Admin: 08/08/17 09:19 Dose: 650 mg Bisacodyl (Dulcolax) [address] DAILY PRN PRN Reason: Constipation Last Admin: 08/07/17 14:18 Dose: 10 mg Cyanocobalamin (Vitamin B12 1000 Mcg Tab) 1,000 mcg PO DAILY [facility] Last Admin: 08/12/17 10:18 Dose: 1,000 mcg Cyclobenzaprine HCl (Flexeril) 10 mg PO Q12 [facility] Last Admin: 08/12/17 10:10 Dose: 10 mg Epoetin Mata (Procrit) 20,000 unit SC MWF [facility] Last Admin: 08/10/17 09:13 Dose: 20,000 unit Ferrous Sulfate (Feosol Liq) 300 mg PO BID [facility] Last Admin: 08/12/17 10:20 Dose: 300 mg Guaifenesin/Dextromethorphan (Robitussin Dm) 10 ml PO Q6 PRN PRN Reason: Cough Last Admin: 08/07/17 08:34 Dose: 10 ml Heparin Sodium (Porcine) (Heparin) 5,000 units SC Q8 [facility] PRN Reason: Protocol Last Admin: 08/12/17 10:10 Dose: 5,000 units Fluconazole (Diflucan Iv 100 Mg/50 Ml Ns) 50 mls @ 50 mls/hr IVPB DAILY [facility] PRN Reason: Protocol Last Admin: 08/12/17 11:36 Dose: 50 mls/hr Piperacillin Sod/Tazobactam (Sod 3.375 gm/ Sodium Chloride) 100 mls @ 100 mls/ hr IVPB Q8@0100,0900,1700 [facility] PRN Reason: Protocol Last Admin: 08/12/17 10:20 Dose: 100 mls/hr Sodium Chloride 35 meq/Potassium Phosphate 15 mmole/Potassium Acetate 30 meq/ Magnesium Sulfate 5 meq/Calcium Gluconate 4.5 meq/Multivitamins/Vitamin C 10 ml/ Chromium/Copper/Manganese/Zinc 3 ml/ Amino Acids 1,052.6589 mls @ 55 mls/hr IV .[id number] ONE PRN Reason: Protocol Stop: 08/13/17 07:53 Sodium Chloride 35 meq/Potassium Phosphate 15 mmole/Potassium Acetate 30 meq/ Magnesium Sulfate 5 meq/Calcium Gluconate 4.5 meq/Amino Acids 1,039.6589 mls @ 55 mls/hr IV .[id number] ONE PRN Reason: Protocol Stop: 08/14/17 02:54 Insulin Human Lispro (Humalog) 0 units SC Q6H [facility] PRN Reason: Protocol Last Admin: 08/12/17 12:34 Dose: 1 units Lidocaine (Lidoderm) 1 ea TD DAILY [facility] Last Admin: 08/12/17 10:14 Dose: 1 ea Metoprolol Tartrate (Lopressor) 50 mg PO Q12 [facility] Last Admin: 08/12/17 10:16 Dose: 50 mg Pantoprazole Sodium (Protonix Ec Tab) 40 mg PO DAILY [facility] Last Admin: 08/12/17 10:17 Dose: 40 mg Tramadol HCl (Ultram) 50 mg PO Q6 PRN PRN Reason: Pain, moderate (4-7) Last Admin: 08/11/17 20:49 Dose: 50 mg - Labs Labs: 08/11/17 06:00 08/12/17 07:18 PT 13.2 Seconds (9.8-13.1) H 08/07/17 14:20 INR 1.2 (0.9-1.2) 08/07/17 14:20 APTT 39.1 Seconds (25.6-37.1) H 07/22/17 05:20 - Constitutional Appears: Non-toxic, Cachectic, Chronically Ill - Head Exam Head Exam: NORMOCEPHALIC - Eye Exam Eye Exam: PERRL - ENT Exam ENT Exam: Mucous Membranes Dry - Neck Exam Neck Exam: absent: Lymphadenopathy - Respiratory Exam Respiratory Exam: Decreased Breath Sounds - Cardiovascular Exam Cardiovascular Exam: REGULAR RHYTHM - GI/Abdominal Exam GI & Abdominal Exam: Distended, Soft, Tenderness Assessment and Plan (1) Abdominal pain Status: Acute (2) COPD (chronic obstructive pulmonary disease) Status: Acute (3) Essential (primary) hypertension Status: Acute (4) Hx of atrial fibrillation, no current medication Status: Acute (5) Intestinal perforation Status: Acute (6) Perforated abdominal viscus Status: Acute (7) Sepsis Status: Acute - Assessment and Plan (Free Text) Assessment: 72M s/p ex-lap for perforated viscous with Small bowel resection with anastomosis POD#34, with post-op leak and colocutaneous fistula
--- NOTE | 2017-08-12 16:51 | CP.PCM.PN ---
Subjective - Date & Time of Evaluation Date of Evaluation: 08/12/17 Time of Evaluation: 16:30 - Subjective Subjective: Resting in bed, watching TV, comfortable while not moving Objective - Vital Signs/Intake and Output Vital Signs (last 24 hours): Temp Pulse Resp BP Pulse Ox 97.5 F L 87 18 100/63 97 08/12/17 16:12 08/12/17 16:12 08/12/17 16:12 08/12/17 16:12 08/12/17 16:12 Intake and Output: 08/12/17 08/12/17 06:59 18:59 Intake Total 745 Output Total 750 Balance -5 - Medications Medications: Current Medications Acetaminophen (Tylenol 325mg Tab) 650 mg PO Q4 PRN PRN Reason: Pain, moderate (4-7) Last Admin: 08/08/17 09:19 Dose: 650 mg Bisacodyl (Dulcolax) 10 mg [place] DAILY PRN PRN Reason: Constipation Last Admin: 08/07/17 14:18 Dose: 10 mg Cyanocobalamin (Vitamin B12 1000 Mcg Tab) 1,000 mcg PO DAILY [facility] Last Admin: 08/12/17 10:18 Dose: 1,000 mcg Cyclobenzaprine HCl (Flexeril) 10 mg PO Q12 [facility] Last Admin: 08/12/17 10:10 Dose: 10 mg Epoetin Karolyn (Procrit) 20,000 unit SC MWF [facility] Last Admin: 08/10/17 09:13 Dose: 20,000 unit Ferrous Sulfate (Feosol Liq) 300 mg PO BID [facility] Last Admin: 08/12/17 16:27 Dose: 300 mg Guaifenesin/Dextromethorphan (Robitussin Dm) 10 ml PO Q6 PRN PRN Reason: Cough Last Admin: 08/07/17 08:34 Dose: 10 ml Heparin Sodium (Porcine) (Heparin) 5,000 units SC Q8 [facility] PRN Reason: Protocol Last Admin: 08/12/17 16:24 Dose: 5,000 units Fluconazole (Diflucan Iv 100 Mg/50 Ml Ns) 50 mls @ 50 mls/hr IVPB DAILY [facility] PRN Reason: Protocol Last Admin: 08/12/17 11:36 Dose: 50 mls/hr Piperacillin Sod/Tazobactam (Sod 3.375 gm/ Sodium Chloride) 100 mls @ 100 mls/ hr IVPB Q8@0100,0900,1700 [facility] PRN Reason: Protocol Last Admin: 08/12/17 16:31 Dose: 100 mls/hr Sodium Chloride 35 meq/Potassium Phosphate 15 mmole/Potassium Acetate 30 meq/ Magnesium Sulfate 5 meq/Calcium Gluconate 4.5 meq/Amino Acids 1,039.6589 mls @ 55 mls/hr IV .[id number] ONE PRN Reason: Protocol Stop: 08/13/17 11:24 Last Admin: 08/12/17 16:21 Dose: 55 mls/hr Sodium Chloride 35 meq/Potassium Phosphate 15 mmole/Potassium Acetate 30 meq/ Magnesium Sulfate 5 meq/Calcium Gluconate 4.5 meq/Multivitamins/Vitamin C 10 ml/ Chromium/Copper/Manganese/Zinc 3 ml/ Amino Acids 1,052.6589 mls @ 55 mls/hr IV .[id number] ONE PRN Reason: Protocol Stop: 08/14/17 06:38 Insulin Human Lispro (Humalog) 0 units SC Q6H [facility] PRN Reason: Protocol Last Admin: 08/12/17 16:22 Dose: Not Given Lidocaine (Lidoderm) 1 ea TD DAILY [facility] Last Admin: 08/12/17 10:14 Dose: 1 ea Metoprolol Tartrate (Lopressor) 50 mg PO Q12 [facility] Last Admin: 08/12/17 10:16 Dose: 50 mg Pantoprazole Sodium (Protonix Ec Tab) 40 mg PO DAILY [facility] Last Admin: 08/12/17 10:17 Dose: 40 mg Tramadol HCl (Ultram) 50 mg PO Q6 PRN PRN Reason: Pain, moderate (4-7) Last Admin: 08/12/17 14:27 Dose: 50 mg - Labs Labs: 08/11/17 06:00 08/12/17 07:18 PT 13.2 Seconds (9.8-13.1) H 08/07/17 14:20 INR 1.2 (0.9-1.2) 08/07/17 14:20 APTT 39.1 Seconds (25.6-37.1) H 07/22/17 05:20 - Constitutional Appears: No Acute Distress, Cachectic - Head Exam Head Exam: ATRAUMATIC - Eye Exam Eye Exam: EOMI, Normal appearance Pupil Exam: NORMAL ACCOMODATION - ENT Exam ENT Exam: Mucous Membranes Moist - Neck Exam Neck Exam: Full ROM, Normal Inspection - Respiratory Exam Respiratory Exam: Clear to Ausculation Bilateral, NORMAL BREATHING PATTERN - Cardiovascular Exam Cardiovascular Exam: REGULAR RHYTHM - GI/Abdominal Exam GI & Abdominal Exam: Tenderness, Normal Bowel Sounds Additional comments: with drainage tube fecal fluid in bag - Extremities Exam Extremities Exam: Full ROM, Normal Capillary Refill - Back Exam Back Exam: NORMAL INSPECTION - Neurological Exam Neurological Exam: Alert, Awake, Oriented x3 - Psychiatric Exam Psychiatric exam: Flat Affect, Normal Affect - Skin Skin Exam: Dry, Normal Color, Warm Assessment and Plan - Assessment and Plan (Free Text) Assessment: 72M s/p ex-lap for perforated viscous with Small bowel resection with anastomosis POD#34, with post-op leak and colocutaneous fistul (1) Abdominal pain (2) Abscess (3) Atrial fibrillation (4) COPD (chronic obstructive pulmonary disease) (5) Essential (primary) hypertension (6) Hx of atrial fibrillation, no current medication (7) Intestinal perforation (8) Perforated abdominal viscus (9) Thrombocytopenia (10) Anemia Plan: c/w present management. s/p ex-lap for perforated viscous with Small bowel resection with anastomosis, with post-op leak and EC fistula; Surgery recommendations appreciated heme/onc recommendations appreciated pain management recommendations appreciated infectious disease recommendations appreciated leukopenia and anemia zosyn 3.375 mg IV Q8h TPN @ 60 mL/h pain management: tylenol 650 mg PO Q4h c/w epoetin karolyn c/w pulmonary sport bed f/u fluid culture/cytology DVT PPX: heparin 5000 SC Q8h skin care, OOB to chair when able to
--- NOTE | 2017-08-12 17:19 | CP.PCM.PN ---
Subjective - Date & Time of Evaluation Date of Evaluation: 08/12/17 Time of Evaluation: 15:00 - Subjective Subjective: Has some abdominal pain. Objective - Vital Signs/Intake and Output Vital Signs (last 24 hours): Temp Pulse Resp BP Pulse Ox 97.5 F L 87 18 100/63 97 08/12/17 16:12 08/12/17 16:12 08/12/17 16:12 08/12/17 16:12 08/12/17 16:12 Intake and Output: 08/12/17 08/12/17 06:59 18:59 Intake Total 745 Output Total 750 Balance -5 - Medications Medications: Current Medications Acetaminophen (Tylenol 325mg Tab) 650 mg PO Q4 PRN PRN Reason: Pain, moderate (4-7) Last Admin: 08/08/17 09:19 Dose: 650 mg Bisacodyl (Dulcolax) 10 mg [place] DAILY PRN PRN Reason: Constipation Last Admin: 08/07/17 14:18 Dose: 10 mg Cyanocobalamin (Vitamin B12 1000 Mcg Tab) 1,000 mcg PO DAILY [facility] Last Admin: 08/12/17 10:18 Dose: 1,000 mcg Cyclobenzaprine HCl (Flexeril) 10 mg PO Q12 [facility] Last Admin: 08/12/17 10:10 Dose: 10 mg Epoetin Mata (Procrit) 20,000 unit SC MWF [facility] Last Admin: 08/10/17 09:13 Dose: 20,000 unit Ferrous Sulfate (Feosol Liq) 300 mg PO BID [facility] Last Admin: 08/12/17 16:27 Dose: 300 mg Guaifenesin/Dextromethorphan (Robitussin Dm) 10 ml PO Q6 PRN PRN Reason: Cough Last Admin: 08/07/17 08:34 Dose: 10 ml Heparin Sodium (Porcine) (Heparin) 5,000 units SC Q8 [facility] PRN Reason: Protocol Last Admin: 08/12/17 16:24 Dose: 5,000 units Fluconazole (Diflucan Iv 100 Mg/50 Ml Ns) 50 mls @ 50 mls/hr IVPB DAILY [facility] PRN Reason: Protocol Last Admin: 08/12/17 11:36 Dose: 50 mls/hr Piperacillin Sod/Tazobactam (Sod 3.375 gm/ Sodium Chloride) 100 mls @ 100 mls/ hr IVPB Q8@0100,0900,1700 [facility] PRN Reason: Protocol Last Admin: 08/12/17 16:31 Dose: 100 mls/hr Sodium Chloride 35 meq/Potassium Phosphate 15 mmole/Potassium Acetate 30 meq/ Magnesium Sulfate 5 meq/Calcium Gluconate 4.5 meq/Amino Acids 1,039.6589 mls @ 55 mls/hr IV .[id number] ONE PRN Reason: Protocol Stop: 08/13/17 11:24 Last Admin: 08/12/17 16:21 Dose: 55 mls/hr Sodium Chloride 35 meq/Potassium Phosphate 15 mmole/Potassium Acetate 30 meq/ Magnesium Sulfate 5 meq/Calcium Gluconate 4.5 meq/Multivitamins/Vitamin C 10 ml/ Chromium/Copper/Manganese/Zinc 3 ml/ Amino Acids 1,052.6589 mls @ 55 mls/hr IV .Q19H9M ONE PRN Reason: Protocol Stop: 08/14/17 06:38 Insulin Human Lispro (Humalog) 0 units SC Q6H [facility] PRN Reason: Protocol Last Admin: 08/12/17 16:22 Dose: Not Given Lidocaine (Lidoderm) 1 ea TD DAILY [facility] Last Admin: 08/12/17 10:14 Dose: 1 ea Metoprolol Tartrate (Lopressor) 50 mg PO Q12 [facility] Last Admin: 08/12/17 10:16 Dose: 50 mg Pantoprazole Sodium (Protonix Ec Tab) 40 mg PO DAILY [facility] Last Admin: 08/12/17 10:17 Dose: 40 mg Tramadol HCl (Ultram) 50 mg PO Q6 PRN PRN Reason: Pain, moderate (4-7) Last Admin: 08/12/17 14:27 Dose: 50 mg - Labs Labs: 08/11/17 06:00 08/12/17 07:18 PT 13.2 Seconds (9.8-13.1) H 08/07/17 14:20 INR 1.2 (0.9-1.2) 08/07/17 14:20 APTT 39.1 Seconds (25.6-37.1) H 07/22/17 05:20 - Head Exam Head Exam: ATRAUMATIC - Eye Exam Eye Exam: Normal appearance - ENT Exam ENT Exam: Mucous Membranes Dry - Respiratory Exam Respiratory Exam: NORMAL BREATHING PATTERN - Cardiovascular Exam Cardiovascular Exam: +S1, +S2 - GI/Abdominal Exam GI & Abdominal Exam: Normal Bowel Sounds Assessment and Plan (1) Pancytopenia Assessment & Plan: mild leukopenia anemia of chronic disease; on procrit and transfusion support PRN stable platelet count. Status: Acute
[2017-08-12 19:18] LABS: ALB/GLOB RATIO 0.6 (1.0-2.1); ALBUMIN 1.9 g/dL (3.5-5.0); ALT/SGPT 31 U/L (21-72); AST/SGOT 23 U/L (17-59); BLOOD UREA NITROGEN 17 mg/dl (9-20); CALCIUM 7.1 mg/dL (8.4-10.2); GFR AFRICAN-AMERICAN > 60; GFR NON-AFRICAN AMERICAN > 60
[2017-08-13] MEDS: Piperacillin/Tazobact 3.375 GM in Sodium Chloride 0.9% 100 ML IVPB SCH ×3 (00:10→17:04)
[2017-08-13] MEDS: Insulin Lispro (humaLOG) 100 Units/ml Inj SC SCH ×4 (05:15→22:53)
[2017-08-13 06:51] LABS: BASO % 1.2 % (0.0-2.0); EOS # 0.2 K/uL (0.0-0.7); EOS % 4.4 % (0.0-4.0); LYMPH # 0.8 K/uL (1.0-4.3); LYMPH % 22.9 % (20.0-40.0); MEAN CELL VOLUME 98.7 fl (80.0-94.0); MEAN CORPUSCULAR HGB CONC 33.4 g/dL (33.0-37.0); MEAN PLATELET VOLUME 7.9 fl (7.2-11.7); MONO # 0.4 K/uL (0.0-0.8); MONO % 11.8 % (0.0-10.0); NEUT # 2.1 K/uL (1.8-7.0); NEUT % 59.7 % (50.0-75.0); NRBC % 0.3 % (0.0-0.0); RBC 3.34 Mil/uL (4.40-5.90); RED CELL DISTRIBUTION WIDTH 17.4 % (11.5-14.5); WHITE BLOOD COUNT 3.5 K/uL (4.8-10.8)
[2017-08-13 06:52] LABS: ALB/GLOB RATIO 0.6 (1.0-2.1); ALBUMIN 1.9 g/dL (3.5-5.0); ALT/SGPT 33 U/L (21-72); AST/SGOT 20 U/L (17-59); BLOOD UREA NITROGEN 18 mg/dl (9-20); GFR AFRICAN-AMERICAN > 60; GFR NON-AFRICAN AMERICAN > 60
--- NOTE | 2017-08-13 07:31 | CP.PCM.PN ---
<Antonio Soares - Last Filed: 08/13/17 07:29> Subjective - Date & Time of Evaluation Date of Evaluation: 08/13/17 Time of Evaluation: 07:29 - Subjective Subjective: General Surgery Note for Dr. Worthy Patient seen and examined at bedside. No acute events overnight. Admits to mild suprapubic pain. Denies fever/chills or nausea/vomiting. Patient has no other complaints. Objective - Vital Signs/Intake and Output Vital Signs (last 24 hours): Temp Pulse Resp BP Pulse Ox 98.2 F 75 18 102/69 95 08/13/17 00:25 08/13/17 00:25 08/13/17 00:25 08/13/17 00:25 08/13/17 00:25 - Medications Medications: Current Medications Acetaminophen (Tylenol 325mg Tab) 650 mg PO Q4 PRN PRN Reason: Pain, moderate (4-7) Last Admin: 08/12/17 18:42 Dose: 650 mg Bisacodyl (Dulcolax) 10 mg [place] DAILY PRN PRN Reason: Constipation Last Admin: 08/07/17 14:18 Dose: 10 mg Cyanocobalamin (Vitamin B12 1000 Mcg Tab) 1,000 mcg PO DAILY [facility] Last Admin: 08/12/17 10:18 Dose: 1,000 mcg Cyclobenzaprine HCl (Flexeril) 10 mg PO Q12 [facility] Last Admin: 08/12/17 21:58 Dose: 10 mg Epoetin Mata (Procrit) 20,000 unit SC MWF [facility] Last Admin: 08/10/17 09:13 Dose: 20,000 unit Ferrous Sulfate (Feosol Liq) 300 mg PO BID [facility] Last Admin: 08/12/17 16:27 Dose: 300 mg Guaifenesin/Dextromethorphan (Robitussin Dm) 10 ml PO Q6 PRN PRN Reason: Cough Last Admin: 08/07/17 08:34 Dose: 10 ml Heparin Sodium (Porcine) (Heparin) 5,000 units SC Q8 [facility] PRN Reason: Protocol Last Admin: 08/13/17 00:11 Dose: 5,000 units Fluconazole (Diflucan Iv 100 Mg/50 Ml Ns) 50 mls @ 50 mls/hr IVPB DAILY [facility] PRN Reason: Protocol Last Admin: 08/12/17 11:36 Dose: 50 mls/hr Piperacillin Sod/Tazobactam (Sod 3.375 gm/ Sodium Chloride) 100 mls @ 100 mls/ hr IVPB Q8@0100,0900,1700 [facility] PRN Reason: Protocol Last Admin: 08/13/17 00:10 Dose: 100 mls/hr Sodium Chloride 35 meq/Potassium Phosphate 15 mmole/Potassium Acetate 30 meq/ Magnesium Sulfate 5 meq/Calcium Gluconate 4.5 meq/Multivitamins/Vitamin C 10 ml/ Chromium/Copper/Manganese/Zinc 3 ml/ Amino Acids 1,052.6589 mls @ 55 mls/hr IV .Q19H9M ONE PRN Reason: Protocol Stop: 08/14/17 06:38 Insulin Human Lispro (Humalog) 0 units SC Q6H [facility] PRN Reason: Protocol Last Admin: 08/13/17 05:15 Dose: 1 units Lidocaine (Lidoderm) 1 ea TD DAILY [facility] Last Admin: 08/12/17 10:14 Dose: 1 ea Metoprolol Tartrate (Lopressor) 50 mg PO Q12 [facility] Last Admin: 08/12/17 22:02 Dose: Not Given Pantoprazole Sodium (Protonix Ec Tab) 40 mg PO DAILY [facility] Last Admin: 08/12/17 10:17 Dose: 40 mg Tramadol HCl (Ultram) 50 mg PO Q6 PRN PRN Reason: Pain, moderate (4-7) Last Admin: 08/13/17 02:08 Dose: 50 mg - Labs Labs: 08/13/17 05:35 08/13/17 05:35 PT 13.2 Seconds (9.8-13.1) H 08/07/17 14:20 INR 1.2 (0.9-1.2) 08/07/17 14:20 APTT 39.1 Seconds (25.6-37.1) H 07/22/17 05:20 - Constitutional Appears: No Acute Distress - Head Exam Head Exam: NORMOCEPHALIC - Eye Exam Eye Exam: Normal appearance - Respiratory Exam Respiratory Exam: NORMAL BREATHING PATTERN - Cardiovascular Exam Cardiovascular Exam: REGULAR RHYTHM - GI/Abdominal Exam GI & Abdominal Exam: Soft, Normal Bowel Sounds. absent: Distended, Firm, Guarding, Rigid, Tenderness, Rebound - Neurological Exam Neurological Exam: Alert, Awake - Psychiatric Exam Psychiatric exam: Normal Affect, Normal Mood - Skin Skin Exam: Dry, Warm Assessment and Plan - Assessment and Plan (Free Text) Plan: 72M s/p ex-lap for perforated viscous with Small bowel resection with anastomosis POD#36, with post-op leak and colocutaneous fistula, s/p IR drainage - TPN goals 3300 candido per day: 25% dextrose, 5% Amino acids, 250 ml Intralipids daily - Monitor fistula output - Strict I's & O's - Pain control - Frequent repositioning - OOB to chair/Encourage ambulation/Incentive Spirometer - PT/OT - Further recommendations as per Dr. Zaynab Soares PGY1 <Mook Worthy - Last Filed: 08/15/17 15:38> Objective - Vital Signs/Intake and Output Vital Signs (last 24 hours): Temp Pulse Resp BP Pulse Ox 97.6 F 60 20 136/78 96 08/15/17 08:23 08/15/17 09:43 08/15/17 08:23 08/15/17 09:43 08/15/17 08:23 Intake and Output: 08/15/17 08/15/17 06:59 18:59 Intake Total 860 Output Total 1700 Balance -840 - Medications Medications: Current Medications Acetaminophen (Tylenol 325mg Tab) 650 mg PO Q4 PRN PRN Reason: Pain, moderate (4-7) Last Admin: 08/12/17 18:42 Dose: 650 mg Bisacodyl (Dulcolax) 10 mg [place] DAILY PRN PRN Reason: Constipation Last Admin: 08/07/17 14:18 Dose: 10 mg Cyanocobalamin (Vitamin B12 1000 Mcg Tab) 1,000 mcg PO DAILY [facility] Last Admin: 08/15/17 09:41 Dose: 1,000 mcg Cyclobenzaprine HCl (Flexeril) 10 mg PO Q12 [facility] Last Admin: 08/15/17 09:40 Dose: 10 mg Epoetin Mata (Procrit) 20,000 unit SC MWF [facility] Last Admin: 08/15/17 09:43 Dose: 20,000 unit Ferrous Sulfate (Feosol Liq) 300 mg PO BID [facility] Last Admin: 08/15/17 09:40 Dose: 300 mg Guaifenesin/Dextromethorphan (Robitussin Dm) 10 ml PO Q6 PRN PRN Reason: Cough Last Admin: 08/07/17 08:34 Dose: 10 ml Heparin Sodium (Porcine) (Heparin) 5,000 units SC Q8 [facility] PRN Reason: Protocol Last Admin: 08/15/17 09:40 Dose: 5,000 units Fluconazole (Diflucan Iv 100 Mg/50 Ml Ns) 50 mls @ 50 mls/hr IVPB DAILY [facility] PRN Reason: Protocol Last Admin: 08/15/17 09:51 Dose: 50 mls/hr Piperacillin Sod/Tazobactam (Sod 3.375 gm/ Sodium Chloride) 100 mls @ 100 mls/ hr IVPB Q8@0100,0900,1700 [facility] PRN Reason: Protocol Last Admin: 08/15/17 09:42 Dose: 100 mls/hr Chromium/Copper/Manganese/Zinc 3 ml/ Multivitamins/Vitamin C 10 ml/ Amino Acids/ Electrolytes/Dextrose 1,013 mls @ 55 mls/hr IV .[id number] ONE Stop: 08/17/19 18:25 Insulin Human Lispro (Humalog) 0 units SC Q6H [facility] PRN Reason: Protocol Last Admin: 08/15/17 09:40 Dose: Not Given Lamivudine (Epivir) 150 mg PO DAILY [facility] PRN Reason: Protocol Lidocaine (Lidoderm) 1 ea TD DAILY [facility] Last Admin: 08/15/17 09:41 Dose: 1 ea Metoprolol Tartrate (Lopressor) 50 mg PO Q12 [facility] Last Admin: 08/15/17 09:43 Dose: 50 mg Pantoprazole Sodium (Protonix Ec Tab) 40 mg PO DAILY [facility] Last Admin: 08/15/17 09:44 Dose: 40 mg Tramadol HCl (Ultram) 50 mg PO Q6 PRN PRN Reason: Pain, moderate (4-7) Last Admin: 08/15/17 00:35 Dose: 50 mg - Labs Labs: 08/15/17 11:03 08/15/17 09:02 PT 13.2 Seconds (9.8-13.1) H 08/07/17 14:20 INR 1.2 (0.9-1.2) 08/07/17 14:20 APTT 39.1 Seconds (25.6-37.1) H 07/22/17 05:20 Attending/Attestation - Attestation I have personally seen and examined this patient.: Yes I have fully participated in the care of the patient.: Yes I have reviewed all pertinent clinical information, including history, physical exam and plan: Yes Notes (Text): Pt was seen and examined at bedside Agree with above note and assessment Upper GI series c.w TPN Plan d.w pt in detail
[2017-08-13] MEDS: Fluconazole IV 100mg/50 ml NS 50 ML IVPB SCH (09:32)
[2017-08-13] MEDS: Epoetin Alfa 20000 UNIT/ML Inj SC SCH (10:49)
[2017-08-13] MEDS: Ferrous Sulfate 300 mg/5 mL Liq UD PO SCH ×2 (10:49→17:04)
[2017-08-13] MEDS: Pantoprazole 40 mg EC Tab PO SCH (10:49)
[2017-08-13] MEDS: Lidocaine 5% Patch TD SCH (10:50)
[2017-08-13] MEDS ORDERED: SODIUM CHLORIDE IV ONE ×2 (11:30→16:30)
[2017-08-13] MEDS ORDERED: POTASSIUM ACETATE IV ONE ×2 (11:30→16:30)
[2017-08-13] MEDS ORDERED: POTASSIUM PHOSPHATE IV ONE ×2 (11:30→16:30)
[2017-08-13] MEDS ORDERED: [UNRECOGNIZED DRUG - OTHER] IV ONE ×2 (11:30→16:30)
[2017-08-13] MEDS ORDERED: Fat Emulsion 20% IV 250 ML IV ONE (16:00)
--- NOTE | 2017-08-13 23:30 | CP.PCM.PN ---
Subjective - Date & Time of Evaluation Date of Evaluation: 08/13/17 Time of Evaluation: 20:25 - Subjective Subjective: Has some abdominal pain. Objective - Vital Signs/Intake and Output Vital Signs (last 24 hours): Temp Pulse Resp BP Pulse Ox 97.6 F 72 20 105/65 100 08/13/17 17:00 08/13/17 20:35 08/13/17 17:00 08/13/17 20:35 08/13/17 17:00 Intake and Output: 08/13/17 08/14/17 18:59 06:59 Intake Total 760 Output Total 1600 Balance -840 - Medications Medications: Current Medications Acetaminophen (Tylenol 325mg Tab) 650 mg PO Q4 PRN PRN Reason: Pain, moderate (4-7) Last Admin: 08/12/17 18:42 Dose: 650 mg Bisacodyl (Dulcolax) 10 mg [place] DAILY PRN PRN Reason: Constipation Last Admin: 08/07/17 14:18 Dose: 10 mg Cyanocobalamin (Vitamin B12 1000 Mcg Tab) 1,000 mcg PO DAILY [facility] Last Admin: 08/13/17 10:48 Dose: 1,000 mcg Cyclobenzaprine HCl (Flexeril) 10 mg PO Q12 [facility] Last Admin: 08/13/17 20:35 Dose: 10 mg Epoetin Mata (Procrit) 20,000 unit SC MWF [facility] Last Admin: 08/13/17 10:49 Dose: 20,000 unit Ferrous Sulfate (Feosol Liq) 300 mg PO BID [facility] Last Admin: 08/13/17 17:04 Dose: 300 mg Guaifenesin/Dextromethorphan (Robitussin Dm) 10 ml PO Q6 PRN PRN Reason: Cough Last Admin: 08/07/17 08:34 Dose: 10 ml Heparin Sodium (Porcine) (Heparin) 5,000 units SC Q8 [facility] PRN Reason: Protocol Last Admin: 08/13/17 17:05 Dose: 5,000 units Fluconazole (Diflucan Iv 100 Mg/50 Ml Ns) 50 mls @ 50 mls/hr IVPB DAILY [facility] PRN Reason: Protocol Last Admin: 08/13/17 09:32 Dose: 50 mls/hr Piperacillin Sod/Tazobactam (Sod 3.375 gm/ Sodium Chloride) 100 mls @ 100 mls/ hr IVPB Q8@0100,0900,1700 [facility] PRN Reason: Protocol Last Admin: 08/13/17 17:04 Dose: 100 mls/hr Sodium Chloride 35 meq/Potassium Phosphate 15 mmole/Potassium Acetate 30 meq/ Magnesium Sulfate 5 meq/Calcium Gluconate 4.5 meq/Multivitamins/Vitamin C 10 ml/ Chromium/Copper/Manganese/Zinc 3 ml/ Amino Acids 1,052.6589 mls @ 55 mls/hr IV .Q19H9M ONE PRN Reason: Protocol Stop: 08/14/17 06:38 Last Admin: 08/13/17 11:15 Dose: 55 mls/hr Sodium Chloride 35 meq/Potassium Phosphate 15 mmole/Potassium Acetate 30 meq/ Magnesium Sulfate 5 meq/Calcium Gluconate 4.5 meq/Multivitamins/Vitamin C 10 ml/ Chromium/Copper/Manganese/Zinc 3 ml/ Amino Acids 1,052.6589 mls @ 55 mls/hr IV .Q19H9M ONE Stop: 08/14/17 11:38 Insulin Human Lispro (Humalog) 0 units SC Q6H [facility] PRN Reason: Protocol Last Admin: 08/13/17 22:53 Dose: Not Given Lidocaine (Lidoderm) 1 ea TD DAILY [facility] Last Admin: 08/13/17 10:50 Dose: 1 ea Metoprolol Tartrate (Lopressor) 50 mg PO Q12 [facility] Last Admin: 08/13/17 20:35 Dose: 50 mg Pantoprazole Sodium (Protonix Ec Tab) 40 mg PO DAILY [facility] Last Admin: 08/13/17 10:49 Dose: 40 mg Tramadol HCl (Ultram) 50 mg PO Q6 PRN PRN Reason: Pain, moderate (4-7) Last Admin: 08/13/17 14:00 Dose: 50 mg - Labs Labs: 08/13/17 05:35 08/13/17 05:35 PT 13.2 Seconds (9.8-13.1) H 08/07/17 14:20 INR 1.2 (0.9-1.2) 08/07/17 14:20 APTT 39.1 Seconds (25.6-37.1) H 07/22/17 05:20 - Head Exam Head Exam: ATRAUMATIC - Eye Exam Eye Exam: Normal appearance - ENT Exam ENT Exam: Mucous Membranes Dry - Respiratory Exam Respiratory Exam: NORMAL BREATHING PATTERN - Cardiovascular Exam Cardiovascular Exam: +S1, +S2 - GI/Abdominal Exam GI & Abdominal Exam: Normal Bowel Sounds Assessment and Plan (1) Pancytopenia Assessment & Plan: mild leukopenia anemia of chronic disease on procrit s/p transfusion support plt count stabilized Status: Acute
[2017-08-14] MEDS: Piperacillin/Tazobact 3.375 GM in Sodium Chloride 0.9% 100 ML IVPB SCH ×3 (00:30→16:06)
[2017-08-14] MEDS: Insulin Lispro (humaLOG) 100 Units/ml Inj SC SCH ×4 (05:38→22:21)
--- NOTE | 2017-08-14 07:33 | CP.PCM.PN ---
<Wojciech Miller - Last Filed: 08/14/17 07:34> Subjective - Date & Time of Evaluation Date of Evaluation: 08/14/17 Time of Evaluation: 07:31 - Subjective Subjective: SURGERY NOTE FOR DR. WORTHY 72M seen and examined at bedside. No acute events overnight. Patient has no complaints this more, but states he feels hungry. Objective - Vital Signs/Intake and Output Vital Signs (last 24 hours): Temp Pulse Resp BP Pulse Ox 97.8 F 60 19 110/72 99 08/14/17 00:25 08/14/17 00:25 08/14/17 00:25 08/14/17 00:25 08/14/17 00:25 - Medications Medications: Current Medications Acetaminophen (Tylenol 325mg Tab) 650 mg PO Q4 PRN PRN Reason: Pain, moderate (4-7) Last Admin: 08/12/17 18:42 Dose: 650 mg Bisacodyl (Dulcolax) 10 mg [place] DAILY PRN PRN Reason: Constipation Last Admin: 08/07/17 14:18 Dose: 10 mg Cyanocobalamin (Vitamin B12 1000 Mcg Tab) 1,000 mcg PO DAILY [facility] Last Admin: 08/13/17 10:48 Dose: 1,000 mcg Cyclobenzaprine HCl (Flexeril) 10 mg PO Q12 [facility] Last Admin: 08/13/17 20:35 Dose: 10 mg Epoetin Mata (Procrit) 20,000 unit SC MWF [facility] Last Admin: 08/13/17 10:49 Dose: 20,000 unit Ferrous Sulfate (Feosol Liq) 300 mg PO BID [facility] Last Admin: 08/13/17 17:04 Dose: 300 mg Guaifenesin/Dextromethorphan (Robitussin Dm) 10 ml PO Q6 PRN PRN Reason: Cough Last Admin: 08/07/17 08:34 Dose: 10 ml Heparin Sodium (Porcine) (Heparin) 5,000 units SC Q8 [facility] PRN Reason: Protocol Last Admin: 08/14/17 00:30 Dose: 5,000 units Fluconazole (Diflucan Iv 100 Mg/50 Ml Ns) 50 mls @ 50 mls/hr IVPB DAILY [facility] PRN Reason: Protocol Last Admin: 08/13/17 09:32 Dose: 50 mls/hr Piperacillin Sod/Tazobactam (Sod 3.375 gm/ Sodium Chloride) 100 mls @ 100 mls/ hr IVPB Q8@0100,0900,1700 [facility] PRN Reason: Protocol Last Admin: 08/14/17 00:30 Dose: 100 mls/hr Sodium Chloride 35 meq/Potassium Phosphate 15 mmole/Potassium Acetate 30 meq/ Magnesium Sulfate 5 meq/Calcium Gluconate 4.5 meq/Multivitamins/Vitamin C 10 ml/ Chromium/Copper/Manganese/Zinc 3 ml/ Amino Acids 1,052.6589 mls @ 55 mls/hr IV .Q19H9M ONE Stop: 08/14/17 11:38 Last Admin: 08/14/17 07:27 Dose: 55 mls/hr Insulin Human Lispro (Humalog) 0 units SC Q6H [facility] PRN Reason: Protocol Last Admin: 08/14/17 05:38 Dose: 1 units Lidocaine (Lidoderm) 1 ea TD DAILY [facility] Last Admin: 08/13/17 10:50 Dose: 1 ea Metoprolol Tartrate (Lopressor) 50 mg PO Q12 [facility] Last Admin: 08/13/17 20:35 Dose: 50 mg Pantoprazole Sodium (Protonix Ec Tab) 40 mg PO DAILY [facility] Last Admin: 08/13/17 10:49 Dose: 40 mg Tramadol HCl (Ultram) 50 mg PO Q6 PRN PRN Reason: Pain, moderate (4-7) Last Admin: 08/14/17 06:10 Dose: 50 mg - Labs Labs: 08/13/17 05:35 08/13/17 05:35 PT 13.2 Seconds (9.8-13.1) H 08/07/17 14:20 INR 1.2 (0.9-1.2) 08/07/17 14:20 APTT 39.1 Seconds (25.6-37.1) H 07/22/17 05:20 - Constitutional Appears: Well, Non-toxic, No Acute Distress - Respiratory Exam Respiratory Exam: Clear to Ausculation Bilateral, NORMAL BREATHING PATTERN - Cardiovascular Exam Cardiovascular Exam: REGULAR RHYTHM, +S1, +S2 - GI/Abdominal Exam GI & Abdominal Exam: Soft, Tenderness, Rebound. absent: Distended, Firm, Guarding, Rigid Additional comments: ostomy bag with stool output over abdominal wound - Extremities Exam Extremities Exam: absent: Pedal Edema, Tenderness - Back Exam Additional comments: right lower back pelvic drain in place - Neurological Exam Neurological Exam: Alert, Awake Assessment and Plan - Assessment and Plan (Free Text) Assessment: 72M s/p ex-lap for perforated viscous with Small bowel resection with anastomosis POD#37, with post-op leak and colocutaneous fistula, s/p IR drainage Plan: - TPN goals 3300 candido per day: 25% dextrose, 5% Amino acids, 250 ml Intralipids daily - TPN being increased daily - Monitor fistula output - Strict I's & O's - Pain control - Frequent repositioning - OOB to chair/Encourage ambulation/Incentive Spirometer - PT/OT Further recs with Dr. Zaynab Miller, PGY2 <Mook Worthy - Last Filed: 08/15/17 15:43> Objective - Vital Signs/Intake and Output Vital Signs (last 24 hours): Temp Pulse Resp BP Pulse Ox 97.6 F 60 20 136/78 96 08/15/17 08:23 08/15/17 09:43 08/15/17 08:23 08/15/17 09:43 08/15/17 08:23 Intake and Output: 08/15/17 08/15/17 06:59 18:59 Intake Total 860 Output Total 1700 Balance -840 - Medications Medications: Current Medications Acetaminophen (Tylenol 325mg Tab) 650 mg PO Q4 PRN PRN Reason: Pain, moderate (4-7) Last Admin: 08/12/17 18:42 Dose: 650 mg Bisacodyl (Dulcolax) 10 mg [place] DAILY PRN PRN Reason: Constipation Last Admin: 08/07/17 14:18 Dose: 10 mg Cyanocobalamin (Vitamin B12 1000 Mcg Tab) 1,000 mcg PO DAILY [facility] Last Admin: 08/15/17 09:41 Dose: 1,000 mcg Cyclobenzaprine HCl (Flexeril) 10 mg PO Q12 [facility] Last Admin: 08/15/17 09:40 Dose: 10 mg Epoetin Mata (Procrit) 20,000 unit SC MWF [facility] Last Admin: 08/15/17 09:43 Dose: 20,000 unit Ferrous Sulfate (Feosol Liq) 300 mg PO BID [facility] Last Admin: 08/15/17 09:40 Dose: 300 mg Guaifenesin/Dextromethorphan (Robitussin Dm) 10 ml PO Q6 PRN PRN Reason: Cough Last Admin: 08/07/17 08:34 Dose: 10 ml Heparin Sodium (Porcine) (Heparin) 5,000 units SC Q8 [facility] PRN Reason: Protocol Last Admin: 08/15/17 09:40 Dose: 5,000 units Fluconazole (Diflucan Iv 100 Mg/50 Ml Ns) 50 mls @ 50 mls/hr IVPB DAILY [facility] PRN Reason: Protocol Last Admin: 08/15/17 09:51 Dose: 50 mls/hr Piperacillin Sod/Tazobactam (Sod 3.375 gm/ Sodium Chloride) 100 mls @ 100 mls/ hr IVPB Q8@0100,0900,1700 [facility] PRN Reason: Protocol Last Admin: 08/15/17 09:42 Dose: 100 mls/hr Chromium/Copper/Manganese/Zinc 3 ml/ Multivitamins/Vitamin C 10 ml/ Amino Acids/ Electrolytes/Dextrose 1,013 mls @ 55 mls/hr IV .[id number] [facility] Stop: 08/17/19 18:25 Insulin Human Lispro (Humalog) 0 units SC Q6H [facility] PRN Reason: Protocol Last Admin: 08/15/17 09:40 Dose: Not Given Lamivudine (Epivir) 150 mg PO DAILY [facility] PRN Reason: Protocol Lidocaine (Lidoderm) 1 ea TD DAILY [facility] Last Admin: 08/15/17 09:41 Dose: 1 ea Metoprolol Tartrate (Lopressor) 50 mg PO Q12 [facility] Last Admin: 08/15/17 09:43 Dose: 50 mg Pantoprazole Sodium (Protonix Ec Tab) 40 mg PO DAILY [facility] Last Admin: 08/15/17 09:44 Dose: 40 mg Tramadol HCl (Ultram) 50 mg PO Q6 PRN PRN Reason: Pain, moderate (4-7) Last Admin: 08/15/17 00:35 Dose: 50 mg - Labs Labs: 08/15/17 11:03 08/15/17 09:02 PT 13.2 Seconds (9.8-13.1) H 08/07/17 14:20 INR 1.2 (0.9-1.2) 08/07/17 14:20 APTT 39.1 Seconds (25.6-37.1) H 07/22/17 05:20 Attending/Attestation - Attestation I have personally seen and examined this patient.: Yes I have fully participated in the care of the patient.: Yes I have reviewed all pertinent clinical information, including history, physical exam and plan: Yes Notes (Text): Pt was seen and examined at bedside Agree with above note and assessment Upper GI seris suggestive of No leak Start Elemental diet Taper TPN Plan d.w pt in detail
[2017-08-14] MEDS: Fluconazole IV 100mg/50 ml NS 50 ML IVPB SCH (09:11)
[2017-08-14] MEDS: Ferrous Sulfate 300 mg/5 mL Liq UD PO SCH ×2 (09:48→16:06)
[2017-08-14] MEDS: Pantoprazole 40 mg EC Tab PO SCH (09:49)
[2017-08-14] MEDS: Lidocaine 5% Patch TD SCH (09:49)
[2017-08-14 10:45] LABS: HEMOGLOBIN 10.6 g/dL (12.0-18.0); MEAN CELL VOLUME 99.1 fl (80.0-94.0); MEAN CORPUSCULAR HEMOGLOBIN 32.9 pg (27.0-31.0); MEAN CORPUSCULAR HGB CONC 33.2 g/dL (33.0-37.0); RBC 3.22 Mil/uL (4.40-5.90); RED CELL DISTRIBUTION WIDTH 19.2 % (11.5-14.5); WHITE BLOOD COUNT 3.9 K/uL (4.8-10.8)
[2017-08-14 11:01] LABS: ALB/GLOB RATIO 0.6 (1.0-2.1); ALBUMIN 1.9 g/dL (3.5-5.0); ALT/SGPT 37 U/L (21-72); AST/SGOT 18 U/L (17-59); GFR AFRICAN-AMERICAN > 60; GFR NON-AFRICAN AMERICAN > 60
[2017-08-14 11:15] LABS: BLOOD UREA NITROGEN 16 mg/dl (9-20); CALCIUM 7.3 mg/dL (8.4-10.2)
--- NOTE | 2017-08-14 13:59 | RAD ---
PROCEDURE: Radiographs of the chest and abdomen (obstructive series) HISTORY: rule out obstruction, fistula COMPARISON: No prior. TECHNIQUE: AP radiograph of the chest, with upright and supine radiographs of the abdomen. FINDINGS: CHEST: Lungs: Right apical opacity associated with pleural-based linear scar. Uncertain significance. Associated right apical pleural thickening noted. Recommend evaluation with CT chest to exclude neoplasm. Cardiovascular: Normal size heart. No pulmonary vascular congestion. Pleura: Small bilateral pleural effusion. Other findings: None. ABDOMEN AND PELVIS: Bowel: No evidence of bowel obstruction. Numerous surgical clips in upper abdomen. Inferior vena caval filter noted. There is a catheter terminating in the region of the urinary bladder which may represent a suprapubic cystostomy. Orthopedic hardware in both hips. Unremarkable bowel gas pattern. No evidence of mechanical obstruction. Free air: None. Bones: Unremarkable. Other findings: None. IMPRESSION: Probable small bilateral pleural effusion. No infiltrate. Right apical opacity. Possible neoplasm. Recommend further evaluation with computed tomography of the chest. No evidence of bowel obstruction.
--- NOTE | 2017-08-14 14:18 | CP.PCM.PN ---
<Willard Akhtar - Last Filed: 08/14/17 14:16> Subjective - Date & Time of Evaluation Date of Evaluation: 08/14/17 Time of Evaluation: 10:30 - Subjective Subjective: Patient seen and examined this morning at bedside. There are no acute events overnight, NAD. Patient is POD36. 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 Patient on pulmonary sport bed. Patient currently only on TPN. Objective - Vital Signs/Intake and Output Vital Signs (last 24 hours): Temp Pulse Resp BP Pulse Ox 97.7 F 66 20 112/71 97 08/14/17 09:00 08/14/17 09:49 08/14/17 09:00 08/14/17 09:49 08/14/17 09:00 Intake and Output: 08/14/17 08/14/17 06:59 18:59 Intake Total 770 Output Total 425 Balance 345 - Medications Medications: Current Medications Acetaminophen (Tylenol 325mg Tab) 650 mg PO Q4 PRN PRN Reason: Pain, moderate (4-7) Last Admin: 08/12/17 18:42 Dose: 650 mg Bisacodyl (Dulcolax) 10 mg [place] DAILY PRN PRN Reason: Constipation Last Admin: 08/07/17 14:18 Dose: 10 mg Cyanocobalamin (Vitamin B12 1000 Mcg Tab) 1,000 mcg PO DAILY [facility] Last Admin: 08/14/17 09:50 Dose: 1,000 mcg Cyclobenzaprine HCl (Flexeril) 10 mg PO Q12 [facility] Last Admin: 08/14/17 09:49 Dose: 10 mg Epoetin Karolyn (Procrit) 20,000 unit SC MWF [facility] Last Admin: 08/13/17 10:49 Dose: 20,000 unit Ferrous Sulfate (Feosol Liq) 300 mg PO BID [facility] Last Admin: 08/14/17 09:48 Dose: 300 mg Guaifenesin/Dextromethorphan (Robitussin Dm) 10 ml PO Q6 PRN PRN Reason: Cough Last Admin: 08/07/17 08:34 Dose: 10 ml Heparin Sodium (Porcine) (Heparin) 5,000 units SC Q8 [facility] PRN Reason: Protocol Last Admin: 08/14/17 09:49 Dose: 5,000 units Fluconazole (Diflucan Iv 100 Mg/50 Ml Ns) 50 mls @ 50 mls/hr IVPB DAILY [facility] PRN Reason: Protocol Last Admin: 08/14/17 09:11 Dose: 50 mls/hr Piperacillin Sod/Tazobactam (Sod 3.375 gm/ Sodium Chloride) 100 mls @ 100 mls/ hr IVPB Q8@0100,0900,1700 [facility] PRN Reason: Protocol Last Admin: 08/14/17 11:29 Dose: 100 mls/hr Insulin Human Lispro (Humalog) 0 units SC Q6H [facility] PRN Reason: Protocol Last Admin: 08/14/17 05:38 Dose: 1 units Lidocaine (Lidoderm) 1 ea TD DAILY [facility] Last Admin: 08/14/17 09:49 Dose: 1 ea Metoprolol Tartrate (Lopressor) 50 mg PO Q12 [facility] Last Admin: 08/14/17 09:49 Dose: 50 mg Pantoprazole Sodium (Protonix Ec Tab) 40 mg PO DAILY [facility] Last Admin: 08/14/17 09:49 Dose: 40 mg Tramadol HCl (Ultram) 50 mg PO Q6 PRN PRN Reason: Pain, moderate (4-7) Last Admin: 08/14/17 11:29 Dose: 50 mg - Labs Labs: 08/14/17 10:18 08/14/17 10:18 PT 13.2 Seconds (9.8-13.1) H 08/07/17 14:20 INR 1.2 (0.9-1.2) 08/07/17 14:20 APTT 39.1 Seconds (25.6-37.1) H 07/22/17 05:20 - Constitutional Appears: No Acute Distress - Head Exam Head Exam: ATRAUMATIC, NORMAL INSPECTION, NORMOCEPHALIC - Eye Exam Eye Exam: Normal appearance - ENT Exam ENT Exam: Mucous Membranes Dry - Neck Exam Neck Exam: Full ROM. absent: Tenderness - Respiratory Exam Respiratory Exam: Clear to Ausculation Bilateral. absent: Accessory Muscle Use , Decreased Breath Sounds, Rales, Rhonchi, Wheezes, Respiratory Distress - Cardiovascular Exam Cardiovascular Exam: REGULAR RHYTHM. absent: Tachycardia - GI/Abdominal Exam GI & Abdominal Exam: Soft, Tenderness Additional comments: ostomy bag with stool output over abdominal wound - Extremities Exam Extremities Exam: absent: Calf Tenderness, Pedal Edema, Tenderness - Neurological Exam Neurological Exam: Alert, Awake, Oriented x3 - Skin Skin Exam: Dry, Intact Assessment and Plan (1) Abdominal pain Status: Acute (2) Abscess Status: Acute (3) Atrial fibrillation Status: Acute (4) COPD (chronic obstructive pulmonary disease) Status: Acute (5) Essential (primary) hypertension Status: Acute (6) Hx of atrial fibrillation, no current medication Status: Acute (7) Intestinal perforation Status: Acute (8) Perforated abdominal viscus Status: Acute (9) Thrombocytopenia Status: Acute (10) Anemia Status: Acute - Assessment and Plan (Free Text) Plan: c/w present management. s/p ex-lap for perforated viscous with Small bowel resection with anastomosis, with post-op leak and EC fistula; POD 36 Surgery recommendations appreciated heme/onc recommendations appreciated pain management recommendations appreciated infectious disease recommendations appreciated leukopenia and anemia abdomen obstructive series XR: no bowel obstruction, probable small bilateral pleural effusion, no infiltrate, right apical opacity, possible neoplasm, recommended further evaluation w/ CT chest diflucan 100 mg IV daily day 10 zosyn 3.375 mg IV Q8h day 6 TPN @ 55 mL/h pain management: tylenol 650 mg PO Q4h, flexeril 10 mg PO Q12h c/w epoetin karolyn c/w pulmonary sport bed f/u fluid culture/cytology DVT PPX: heparin 5000 SC Q8h monitor for acute changes <Bronson Castaneda - Last Filed: 08/15/17 11:51> Objective - Vital Signs/Intake and Output Vital Signs (last 24 hours): Temp Pulse Resp BP Pulse Ox 97.6 F 60 20 136/78 96 08/15/17 08:23 08/15/17 09:43 08/15/17 08:23 08/15/17 09:43 08/15/17 08:23 Intake and Output: 08/15/17 08/15/17 06:59 18:59 Intake Total 860 Output Total 1700 Balance -840 - Medications Medications: Current Medications Acetaminophen (Tylenol 325mg Tab) 650 mg PO Q4 PRN PRN Reason: Pain, moderate (4-7) Last Admin: 08/12/17 18:42 Dose: 650 mg Bisacodyl (Dulcolax) 10 mg [place] DAILY PRN PRN Reason: Constipation Last Admin: 08/07/17 14:18 Dose: 10 mg Cyanocobalamin (Vitamin B12 1000 Mcg Tab) 1,000 mcg PO DAILY [facility] Last Admin: 08/15/17 09:41 Dose: 1,000 mcg Cyclobenzaprine HCl (Flexeril) 10 mg PO Q12 [facility] Last Admin: 08/15/17 09:40 Dose: 10 mg Epoetin Karolyn (Procrit) 20,000 unit SC MWF [facility] Last Admin: 08/15/17 09:43 Dose: 20,000 unit Ferrous Sulfate (Feosol Liq) 300 mg PO BID [facility] Last Admin: 08/15/17 09:40 Dose: 300 mg Guaifenesin/Dextromethorphan (Robitussin Dm) 10 ml PO Q6 PRN PRN Reason: Cough Last Admin: 08/07/17 08:34 Dose: 10 ml Heparin Sodium (Porcine) (Heparin) 5,000 units SC Q8 [facility] PRN Reason: Protocol Last Admin: 08/15/17 09:40 Dose: 5,000 units Fluconazole (Diflucan Iv 100 Mg/50 Ml Ns) 50 mls @ 50 mls/hr IVPB DAILY [facility] PRN Reason: Protocol Last Admin: 08/15/17 09:51 Dose: 50 mls/hr Piperacillin Sod/Tazobactam (Sod 3.375 gm/ Sodium Chloride) 100 mls @ 100 mls/ hr IVPB Q8@0100,0900,1700 [facility] PRN Reason: Protocol Last Admin: 08/15/17 09:42 Dose: 100 mls/hr Insulin Human Lispro (Humalog) 0 units SC Q6H [facility] PRN Reason: Protocol Last Admin: 08/15/17 09:40 Dose: Not Given Lidocaine (Lidoderm) 1 ea TD DAILY [facility] Last Admin: 08/15/17 09:41 Dose: 1 ea Metoprolol Tartrate (Lopressor) 50 mg PO Q12 [facility] Last Admin: 08/15/17 09:43 Dose: 50 mg Pantoprazole Sodium (Protonix Ec Tab) 40 mg PO DAILY [facility] Last Admin: 08/15/17 09:44 Dose: 40 mg Tramadol HCl (Ultram) 50 mg PO Q6 PRN PRN Reason: Pain, moderate (4-7) Last Admin: 08/15/17 00:35 Dose: 50 mg - Labs Labs: 08/15/17 11:03 08/15/17 09:02 PT 13.2 Seconds (9.8-13.1) H 08/07/17 14:20 INR 1.2 (0.9-1.2) 08/07/17 14:20 APTT 39.1 Seconds (25.6-37.1) H 07/22/17 05:20 Assessment and Plan (1) Abdominal pain Status: Acute (2) COPD (chronic obstructive pulmonary disease) Status: Acute (3) Essential (primary) hypertension Status: Acute (4) Hx of atrial fibrillation, no current medication Status: Acute (5) Intestinal perforation Status: Acute (6) Perforated abdominal viscus Status: Acute (7) Atrial fibrillation Status: Acute (8) Anemia Status: Acute (9) Thrombocytopenia Status: Acute (10) Abscess Status: Acute - Assessment and Plan (Free Text) Plan: I was present during evaluation and discussed with Dr Akhtar re plans of care and tx. Will follow up with surgery re nutrition/ feeding bronson Castaneda
[2017-08-14] MEDS ORDERED: Amino/Dex E 4.25/10 1000 ML 1,000 ML IV ONE (14:30)
--- NOTE | 2017-08-14 19:36 | CP.PCM.PN ---
Subjective - Date & Time of Evaluation Date of Evaluation: 08/14/17 Time of Evaluation: 17:15 - Subjective Subjective: Has abdominal pain. Objective - Vital Signs/Intake and Output Vital Signs (last 24 hours): Temp Pulse Resp BP Pulse Ox 97.2 F L 68 19 120/75 97 08/14/17 17:00 08/14/17 17:00 08/14/17 17:00 08/14/17 17:00 08/14/17 17:00 Intake and Output: 08/14/17 08/15/17 18:59 06:59 Intake Total 770 Output Total 425 Balance 345 - Medications Medications: Current Medications Acetaminophen (Tylenol 325mg Tab) 650 mg PO Q4 PRN PRN Reason: Pain, moderate (4-7) Last Admin: 08/12/17 18:42 Dose: 650 mg Bisacodyl (Dulcolax) 10 mg [place] DAILY PRN PRN Reason: Constipation Last Admin: 08/07/17 14:18 Dose: 10 mg Cyanocobalamin (Vitamin B12 1000 Mcg Tab) 1,000 mcg PO DAILY [facility] Last Admin: 08/14/17 09:50 Dose: 1,000 mcg Cyclobenzaprine HCl (Flexeril) 10 mg PO Q12 [facility] Last Admin: 08/14/17 09:49 Dose: 10 mg Epoetin Mata (Procrit) 20,000 unit SC MWF [facility] Last Admin: 08/13/17 10:49 Dose: 20,000 unit Ferrous Sulfate (Feosol Liq) 300 mg PO BID [facility] Last Admin: 08/14/17 16:06 Dose: 300 mg Guaifenesin/Dextromethorphan (Robitussin Dm) 10 ml PO Q6 PRN PRN Reason: Cough Last Admin: 08/07/17 08:34 Dose: 10 ml Heparin Sodium (Porcine) (Heparin) 5,000 units SC Q8 [facility] PRN Reason: Protocol Last Admin: 08/14/17 16:06 Dose: 5,000 units Fluconazole (Diflucan Iv 100 Mg/50 Ml Ns) 50 mls @ 50 mls/hr IVPB DAILY [facility] PRN Reason: Protocol Last Admin: 08/14/17 09:11 Dose: 50 mls/hr Piperacillin Sod/Tazobactam (Sod 3.375 gm/ Sodium Chloride) 100 mls @ 100 mls/ hr IVPB Q8@0100,0900,1700 [facility] PRN Reason: Protocol Last Admin: 08/14/17 16:06 Dose: 100 mls/hr Amino Acids/Electrolytes/Dextrose (Clinimix E 4.25/10 1000 Ml) 1,000 mls @ 55 mls/hr IV .[id number] ONE Stop: 08/15/17 08:40 Insulin Human Lispro (Humalog) 0 units SC Q6H [facility] PRN Reason: Protocol Last Admin: 08/14/17 16:46 Dose: Not Given Lidocaine (Lidoderm) 1 ea TD DAILY [facility] Last Admin: 08/14/17 09:49 Dose: 1 ea Metoprolol Tartrate (Lopressor) 50 mg PO Q12 [facility] Last Admin: 08/14/17 09:49 Dose: 50 mg Pantoprazole Sodium (Protonix Ec Tab) 40 mg PO DAILY [facility] Last Admin: 08/14/17 09:49 Dose: 40 mg Tramadol HCl (Ultram) 50 mg PO Q6 PRN PRN Reason: Pain, moderate (4-7) Last Admin: 08/14/17 18:52 Dose: 50 mg - Labs Labs: 08/14/17 10:18 08/14/17 10:18 PT 13.2 Seconds (9.8-13.1) H 08/07/17 14:20 INR 1.2 (0.9-1.2) 08/07/17 14:20 APTT 39.1 Seconds (25.6-37.1) H 07/22/17 05:20 - Head Exam Head Exam: ATRAUMATIC - Eye Exam Eye Exam: Normal appearance - ENT Exam ENT Exam: Mucous Membranes Dry - Respiratory Exam Respiratory Exam: NORMAL BREATHING PATTERN - Cardiovascular Exam Cardiovascular Exam: +S1, +S2 - GI/Abdominal Exam GI & Abdominal Exam: Normal Bowel Sounds Assessment and Plan (1) Pancytopenia Assessment & Plan: mild leukopenia anemia of chronic disease on procrit s/p transfusion support plt count stabilized Status: Acute
[2017-08-14] MEDS ORDERED: Iohexol 240 (50 ml) PO ONE (20:44)
[2017-08-15] MEDS: Piperacillin/Tazobact 3.375 GM in Sodium Chloride 0.9% 100 ML IVPB SCH ×3 (00:36→17:35)
[2017-08-15] MEDS: Insulin Lispro (humaLOG) 100 Units/ml Inj SC SCH ×4 (04:30→22:45)
[2017-08-15] MEDS: Ferrous Sulfate 300 mg/5 mL Liq UD PO SCH ×2 (09:40→17:49)
[2017-08-15] MEDS: Lidocaine 5% Patch TD SCH (09:41)
[2017-08-15] MEDS: Epoetin Alfa 20000 UNIT/ML Inj SC SCH (09:43)
[2017-08-15] MEDS: Pantoprazole 40 mg EC Tab PO SCH (09:44)
[2017-08-15] MEDS: Fluconazole IV 100mg/50 ml NS 50 ML IVPB SCH (09:51)
[2017-08-15 09:53] LABS: ALB/GLOB RATIO 0.6 (1.0-2.1); ALBUMIN 2.1 g/dL (3.5-5.0); ALT/SGPT 30 U/L (21-72); AST/SGOT 20 U/L (17-59); BLOOD UREA NITROGEN 15 mg/dl (9-20); CALCIUM 7.6 mg/dL (8.4-10.2); GFR AFRICAN-AMERICAN > 60; GFR NON-AFRICAN AMERICAN > 60
[2017-08-15 11:20] LABS: BASO # 0.1 K/uL (0.0-0.2); EOS # 0.2 K/uL (0.0-0.7); EOS % 4.4 % (0.0-4.0); HEMOGLOBIN 10.8 g/dL (12.0-18.0); LYMPH # 0.6 K/uL (1.0-4.3); LYMPH % 10.5 % (20.0-40.0); MEAN CORPUSCULAR HEMOGLOBIN 32.9 pg (27.0-31.0); MEAN CORPUSCULAR HGB CONC 32.6 g/dL (33.0-37.0); MEAN PLATELET VOLUME 7.7 fl (7.2-11.7); MONO # 0.4 K/uL (0.0-0.8); MONO % 8.1 % (0.0-10.0); NEUT # 4.1 K/uL (1.8-7.0); NRBC % 0.2 % (0.0-0.0); RBC 3.29 Mil/uL (4.40-5.90); RED CELL DISTRIBUTION WIDTH 20.1 % (11.5-14.5); WHITE BLOOD COUNT 5.4 K/uL (4.8-10.8)
--- NOTE | 2017-08-15 11:47 | CP.PCM.PN ---
Subjective - Date & Time of Evaluation Date of Evaluation: 08/09/17 Time of Evaluation: 11:00 - Subjective Subjective: Patient complains of pain Has no fever Still with fecaloid drainage on the wound area has no abd pain. Objective - Vital Signs/Intake and Output Vital Signs (last 24 hours): Temp Pulse Resp BP Pulse Ox 97.6 F 60 20 136/78 96 08/15/17 08:23 08/15/17 09:43 08/15/17 08:23 08/15/17 09:43 08/15/17 08:23 Intake and Output: 08/15/17 08/15/17 06:59 18:59 Intake Total 860 Output Total 1700 Balance -840 - Medications Medications: Current Medications Acetaminophen (Tylenol 325mg Tab) 650 mg PO Q4 PRN PRN Reason: Pain, moderate (4-7) Last Admin: 08/12/17 18:42 Dose: 650 mg Bisacodyl (Dulcolax) 10 mg [place] DAILY PRN PRN Reason: Constipation Last Admin: 08/07/17 14:18 Dose: 10 mg Cyanocobalamin (Vitamin B12 1000 Mcg Tab) 1,000 mcg PO DAILY [facility] Last Admin: 08/15/17 09:41 Dose: 1,000 mcg Cyclobenzaprine HCl (Flexeril) 10 mg PO Q12 [facility] Last Admin: 08/15/17 09:40 Dose: 10 mg Epoetin Mata (Procrit) 20,000 unit SC MWF [facility] Last Admin: 08/15/17 09:43 Dose: 20,000 unit Ferrous Sulfate (Feosol Liq) 300 mg PO BID [facility] Last Admin: 08/15/17 09:40 Dose: 300 mg Guaifenesin/Dextromethorphan (Robitussin Dm) 10 ml PO Q6 PRN PRN Reason: Cough Last Admin: 08/07/17 08:34 Dose: 10 ml Heparin Sodium (Porcine) (Heparin) 5,000 units SC Q8 [facility] PRN Reason: Protocol Last Admin: 08/15/17 09:40 Dose: 5,000 units Fluconazole (Diflucan Iv 100 Mg/50 Ml Ns) 50 mls @ 50 mls/hr IVPB DAILY [facility] PRN Reason: Protocol Last Admin: 08/15/17 09:51 Dose: 50 mls/hr Piperacillin Sod/Tazobactam (Sod 3.375 gm/ Sodium Chloride) 100 mls @ 100 mls/ hr IVPB Q8@0100,0900,1700 [facility] PRN Reason: Protocol Last Admin: 08/15/17 09:42 Dose: 100 mls/hr Insulin Human Lispro (Humalog) 0 units SC Q6H [facility] PRN Reason: Protocol Last Admin: 08/15/17 09:40 Dose: Not Given Lidocaine (Lidoderm) 1 ea TD DAILY [facility] Last Admin: 08/15/17 09:41 Dose: 1 ea Metoprolol Tartrate (Lopressor) 50 mg PO Q12 [facility] Last Admin: 08/15/17 09:43 Dose: 50 mg Pantoprazole Sodium (Protonix Ec Tab) 40 mg PO DAILY [facility] Last Admin: 08/15/17 09:44 Dose: 40 mg Tramadol HCl (Ultram) 50 mg PO Q6 PRN PRN Reason: Pain, moderate (4-7) Last Admin: 08/15/17 00:35 Dose: 50 mg - Labs Labs: 08/15/17 11:03 08/15/17 09:02 PT 13.2 Seconds (9.8-13.1) H 08/07/17 14:20 INR 1.2 (0.9-1.2) 08/07/17 14:20 APTT 39.1 Seconds (25.6-37.1) H 07/22/17 05:20 Assessment and Plan (1) Abdominal pain Status: Acute (2) COPD (chronic obstructive pulmonary disease) Status: Acute (3) Essential (primary) hypertension Status: Acute (4) Hx of atrial fibrillation, no current medication Status: Acute (5) Intestinal perforation Status: Acute (6) Perforated abdominal viscus Status: Acute (7) Atrial fibrillation Status: Acute (8) Anemia Status: Acute (9) Thrombocytopenia Status: Acute (10) Abscess Status: Acute
--- NOTE | 2017-08-15 11:49 | CP.PCM.PN ---
Subjective - Date & Time of Evaluation Date of Evaluation: 08/15/17 Time of Evaluation: 11:47 - Subjective Subjective: patient had some short delirium this morning Has no fever Has no abd pain. Labs showed normal WBC and CMP. Objective - Vital Signs/Intake and Output Vital Signs (last 24 hours): Temp Pulse Resp BP Pulse Ox 97.6 F 60 20 136/78 96 08/15/17 08:23 08/15/17 09:43 08/15/17 08:23 08/15/17 09:43 08/15/17 08:23 Intake and Output: 08/15/17 08/15/17 06:59 18:59 Intake Total 860 Output Total 1700 Balance -840 - Medications Medications: Current Medications Acetaminophen (Tylenol 325mg Tab) 650 mg PO Q4 PRN PRN Reason: Pain, moderate (4-7) Last Admin: 08/12/17 18:42 Dose: 650 mg Bisacodyl (Dulcolax) 10 mg [place] DAILY PRN PRN Reason: Constipation Last Admin: 08/07/17 14:18 Dose: 10 mg Cyanocobalamin (Vitamin B12 1000 Mcg Tab) 1,000 mcg PO DAILY [facility] Last Admin: 08/15/17 09:41 Dose: 1,000 mcg Cyclobenzaprine HCl (Flexeril) 10 mg PO Q12 [facility] Last Admin: 08/15/17 09:40 Dose: 10 mg Epoetin Mata (Procrit) 20,000 unit SC MWF [facility] Last Admin: 08/15/17 09:43 Dose: 20,000 unit Ferrous Sulfate (Feosol Liq) 300 mg PO BID [facility] Last Admin: 08/15/17 09:40 Dose: 300 mg Guaifenesin/Dextromethorphan (Robitussin Dm) 10 ml PO Q6 PRN PRN Reason: Cough Last Admin: 08/07/17 08:34 Dose: 10 ml Heparin Sodium (Porcine) (Heparin) 5,000 units SC Q8 [facility] PRN Reason: Protocol Last Admin: 08/15/17 09:40 Dose: 5,000 units Fluconazole (Diflucan Iv 100 Mg/50 Ml Ns) 50 mls @ 50 mls/hr IVPB DAILY [facility] PRN Reason: Protocol Last Admin: 08/15/17 09:51 Dose: 50 mls/hr Piperacillin Sod/Tazobactam (Sod 3.375 gm/ Sodium Chloride) 100 mls @ 100 mls/ hr IVPB Q8@0100,0900,1700 [facility] PRN Reason: Protocol Last Admin: 08/15/17 09:42 Dose: 100 mls/hr Insulin Human Lispro (Humalog) 0 units SC Q6H [facility] PRN Reason: Protocol Last Admin: 08/15/17 09:40 Dose: Not Given Lidocaine (Lidoderm) 1 ea TD DAILY [facility] Last Admin: 08/15/17 09:41 Dose: 1 ea Metoprolol Tartrate (Lopressor) 50 mg PO Q12 [facility] Last Admin: 08/15/17 09:43 Dose: 50 mg Pantoprazole Sodium (Protonix Ec Tab) 40 mg PO DAILY [facility] Last Admin: 08/15/17 09:44 Dose: 40 mg Tramadol HCl (Ultram) 50 mg PO Q6 PRN PRN Reason: Pain, moderate (4-7) Last Admin: 08/15/17 00:35 Dose: 50 mg - Labs Labs: 08/15/17 11:03 08/15/17 09:02 PT 13.2 Seconds (9.8-13.1) H 08/07/17 14:20 INR 1.2 (0.9-1.2) 08/07/17 14:20 APTT 39.1 Seconds (25.6-37.1) H 07/22/17 05:20 - Head Exam Head Exam: NORMAL INSPECTION - Eye Exam Eye Exam: Normal appearance - ENT Exam ENT Exam: Mucous Membranes Moist - Respiratory Exam Respiratory Exam: Clear to Ausculation Bilateral - Cardiovascular Exam Cardiovascular Exam: REGULAR RHYTHM - GI/Abdominal Exam GI & Abdominal Exam: Normal Bowel Sounds - Neurological Exam Neurological Exam: Awake, Oriented x3 Assessment and Plan (1) Abdominal pain Status: Acute (2) COPD (chronic obstructive pulmonary disease) Status: Acute (3) Essential (primary) hypertension Status: Acute (4) Hx of atrial fibrillation, no current medication Status: Acute (5) Intestinal perforation Status: Acute (6) Perforated abdominal viscus Status: Acute (7) Atrial fibrillation Status: Acute (8) Anemia Status: Acute (9) Thrombocytopenia Status: Acute (10) Abscess Status: Acute - Assessment and Plan (Free Text) Plan: Cont meds Cont tx Cont PT pain meds follow up with surgery check NH3 lactate level. cont parenteral nutrition.
--- NOTE | 2017-08-15 13:20 | CP.PCM.PN ---
Subjective - Date & Time of Evaluation Date of Evaluation: 08/15/17 Time of Evaluation: 08:00 - Subjective Subjective: weak and bedridden cont IV rx. wound care started PO feeds add epivir for hep B Objective - Vital Signs/Intake and Output Vital Signs (last 24 hours): Temp Pulse Resp BP Pulse Ox 97.6 F 60 20 136/78 96 08/15/17 08:23 08/15/17 09:43 08/15/17 08:23 08/15/17 09:43 08/15/17 08:23 Intake and Output: 08/15/17 08/15/17 06:59 18:59 Intake Total 860 Output Total 1700 Balance -840 - Medications Medications: Current Medications Acetaminophen (Tylenol 325mg Tab) 650 mg PO Q4 PRN PRN Reason: Pain, moderate (4-7) Last Admin: 08/12/17 18:42 Dose: 650 mg Bisacodyl (Dulcolax) 10 mg [place] DAILY PRN PRN Reason: Constipation Last Admin: 08/07/17 14:18 Dose: 10 mg Cyanocobalamin (Vitamin B12 1000 Mcg Tab) 1,000 mcg PO DAILY [facility] Last Admin: 08/15/17 09:41 Dose: 1,000 mcg Cyclobenzaprine HCl (Flexeril) 10 mg PO Q12 [facility] Last Admin: 08/15/17 09:40 Dose: 10 mg Epoetin Mata (Procrit) 20,000 unit SC MWF [facility] Last Admin: 08/15/17 09:43 Dose: 20,000 unit Ferrous Sulfate (Feosol Liq) 300 mg PO BID [facility] Last Admin: 08/15/17 09:40 Dose: 300 mg Guaifenesin/Dextromethorphan (Robitussin Dm) 10 ml PO Q6 PRN PRN Reason: Cough Last Admin: 08/07/17 08:34 Dose: 10 ml Heparin Sodium (Porcine) (Heparin) 5,000 units SC Q8 [facility] PRN Reason: Protocol Last Admin: 08/15/17 09:40 Dose: 5,000 units Fluconazole (Diflucan Iv 100 Mg/50 Ml Ns) 50 mls @ 50 mls/hr IVPB DAILY [facility] PRN Reason: Protocol Last Admin: 08/15/17 09:51 Dose: 50 mls/hr Piperacillin Sod/Tazobactam (Sod 3.375 gm/ Sodium Chloride) 100 mls @ 100 mls/ hr IVPB Q8@0100,0900,1700 [facility] PRN Reason: Protocol Last Admin: 08/15/17 09:42 Dose: 100 mls/hr Insulin Human Lispro (Humalog) 0 units SC Q6H [facility] PRN Reason: Protocol Last Admin: 08/15/17 09:40 Dose: Not Given Lidocaine (Lidoderm) 1 ea TD DAILY [facility] Last Admin: 08/15/17 09:41 Dose: 1 ea Metoprolol Tartrate (Lopressor) 50 mg PO Q12 [facility] Last Admin: 08/15/17 09:43 Dose: 50 mg Pantoprazole Sodium (Protonix Ec Tab) 40 mg PO DAILY [facility] Last Admin: 08/15/17 09:44 Dose: 40 mg Tramadol HCl (Ultram) 50 mg PO Q6 PRN PRN Reason: Pain, moderate (4-7) Last Admin: 08/15/17 00:35 Dose: 50 mg - Labs Labs: 08/15/17 11:03 08/15/17 09:02 PT 13.2 Seconds (9.8-13.1) H 08/07/17 14:20 INR 1.2 (0.9-1.2) 08/07/17 14:20 APTT 39.1 Seconds (25.6-37.1) H 07/22/17 05:20 - Constitutional Appears: Non-toxic, Cachectic, Chronically Ill - Head Exam Head Exam: NORMOCEPHALIC - Eye Exam Eye Exam: PERRL. absent: Scleral icterus - ENT Exam ENT Exam: Mucous Membranes Dry - Neck Exam Neck Exam: absent: Lymphadenopathy - Respiratory Exam Respiratory Exam: Decreased Breath Sounds - Cardiovascular Exam Cardiovascular Exam: REGULAR RHYTHM - GI/Abdominal Exam GI & Abdominal Exam: Distended - Rectal Exam Rectal Exam: Deferred - Exam Exam: NORMAL INSPECTION - Extremities Exam Extremities Exam: absent: Pedal Edema, Tenderness - Back Exam Back Exam: absent: CVA tenderness (L), CVA tenderness (R) - Neurological Exam Neurological Exam: Alert, Awake, CN II-XII Intact Assessment and Plan (1) Abdominal pain Status: Acute (2) COPD (chronic obstructive pulmonary disease) Status: Acute (3) Essential (primary) hypertension Status: Acute (4) Hx of atrial fibrillation, no current medication Status: Acute (5) Intestinal perforation Status: Acute (6) Perforated abdominal viscus Status: Acute (7) Sepsis Status: Acute
[2017-08-15 15:34] LABS: URINE BILIRUBIN NEGATIVE (NEGATIVE); URINE BLOOD NEGATIVE (NEGATIVE); URINE CLARITY CLEAR (Clear); URINE COLOR YELLOW (YELLOW); URINE GLUCOSE (UA) NEG (Normal); URINE LEUKOCYTE ESTERASE NEG Leu/uL (Negative); URINE PROTEIN NEGATIVE (NEGATIVE); URINE UROBILINOGEN 0.2-1.0 mg/dL (0.2-1.0)
[2017-08-15] MEDS ORDERED: Iohexol 240 (50 ml) PO ONE (17:03)
--- NOTE | 2017-08-15 17:48 | CP.PCM.PN ---
Subjective - Date & Time of Evaluation Date of Evaluation: 08/15/17 Time of Evaluation: 10:00 - Subjective Subjective: GENERAL SURGERY NOTE FOR DR. ODOM Patient seen and examined at bedside. No acute events overnight. Patient has been confused intermittently today and placed on 1-1. He is still complaining of abd pain. Objective - Vital Signs/Intake and Output Vital Signs (last 24 hours): Temp Pulse Resp BP Pulse Ox 97.9 F 74 18 131/80 96 08/15/17 16:17 08/15/17 16:17 08/15/17 16:17 08/15/17 16:17 08/15/17 16:17 Intake and Output: 08/15/17 08/15/17 06:59 18:59 Intake Total 860 Output Total 1700 Balance -840 - Medications Medications: Current Medications Acetaminophen (Tylenol 325mg Tab) 650 mg PO Q4 PRN PRN Reason: Pain, moderate (4-7) Last Admin: 08/12/17 18:42 Dose: 650 mg Bisacodyl (Dulcolax) 10 mg [place] DAILY PRN PRN Reason: Constipation Last Admin: 08/07/17 14:18 Dose: 10 mg Cyanocobalamin (Vitamin B12 1000 Mcg Tab) 1,000 mcg PO DAILY [facility] Last Admin: 08/15/17 09:41 Dose: 1,000 mcg Cyclobenzaprine HCl (Flexeril) 10 mg PO Q12 [facility] Last Admin: 08/15/17 09:40 Dose: 10 mg Epoetin Mata (Procrit) 20,000 unit SC MWF [facility] Last Admin: 08/15/17 09:43 Dose: 20,000 unit Ferrous Sulfate (Feosol Liq) 300 mg PO BID [facility] Last Admin: 08/15/17 09:40 Dose: 300 mg Guaifenesin/Dextromethorphan (Robitussin Dm) 10 ml PO Q6 PRN PRN Reason: Cough Last Admin: 08/07/17 08:34 Dose: 10 ml Heparin Sodium (Porcine) (Heparin) 5,000 units SC Q8 [facility] PRN Reason: Protocol Last Admin: 08/15/17 17:42 Dose: Not Given Fluconazole (Diflucan Iv 100 Mg/50 Ml Ns) 50 mls @ 50 mls/hr IVPB DAILY [facility] PRN Reason: Protocol Last Admin: 08/15/17 09:51 Dose: 50 mls/hr Piperacillin Sod/Tazobactam (Sod 3.375 gm/ Sodium Chloride) 100 mls @ 100 mls/ hr IVPB Q8@0100,0900,1700 [facility] PRN Reason: Protocol Last Admin: 08/15/17 17:35 Dose: 100 mls/hr Chromium/Copper/Manganese/Zinc 3 ml/ Multivitamins/Vitamin C 10 ml/ Amino Acids/ Electrolytes/Dextrose 1,013 mls @ 55 mls/hr IV .[id number] ONE Stop: 08/17/19 18:25 Dextrose (Dextrose 10% In Water) 500 mls @ 80 mls/hr IV .Q6H15M [facility] Stop: 08/16/17 17:44 Insulin Human Lispro (Humalog) 0 units SC Q6H [facility] PRN Reason: Protocol Last Admin: 08/15/17 17:34 Dose: Not Given Lamivudine (Epivir) 150 mg PO DAILY [facility] PRN Reason: Protocol Lidocaine (Lidoderm) 1 ea TD DAILY [facility] Last Admin: 08/15/17 09:41 Dose: 1 ea Lorazepam (Ativan) 0.5 mg IVP Q6 PRN PRN Reason: Agitation Metoprolol Tartrate (Lopressor) 50 mg PO Q12 [facility] Last Admin: 08/15/17 09:43 Dose: 50 mg Pantoprazole Sodium (Protonix Ec Tab) 40 mg PO DAILY [facility] Last Admin: 08/15/17 09:44 Dose: 40 mg Tramadol HCl (Ultram) 50 mg PO Q6 PRN PRN Reason: Pain, moderate (4-7) Last Admin: 08/15/17 00:35 Dose: 50 mg - Labs Labs: 08/15/17 11:03 08/15/17 09:02 PT 13.2 Seconds (9.8-13.1) H 08/07/17 14:20 INR 1.2 (0.9-1.2) 08/07/17 14:20 APTT 39.1 Seconds (25.6-37.1) H 07/22/17 05:20 - Constitutional Appears: No Acute Distress - Respiratory Exam Respiratory Exam: NORMAL BREATHING PATTERN - Cardiovascular Exam Cardiovascular Exam: REGULAR RHYTHM - GI/Abdominal Exam GI & Abdominal Exam: Soft. absent: Distended, Guarding, Rigid, Tenderness Additional comments: colostomy bag with stool output on midline wound - Back Exam Additional comments: right lower back pelvic drain in place - Neurological Exam Neurological Exam: Alert, Altered, Awake - Psychiatric Exam Psychiatric exam: Agitated - Skin Skin Exam: Dry, Warm Assessment and Plan - Assessment and Plan (Free Text) Plan: 72M s/p ex-lap for perforated viscous with Small bowel resection with anastomosis POD#38, with post-op leak and colocutaneous fistula, s/p IR drainage - Omnipaque 50 mL by mouth, ABXR 30 min after contrast swallowed, followed by another ABXR 30 min after the 1st - TPN goals 3300 candido per day: 25% dextrose, 5% Amino acids, 250 ml Intralipids daily - Monitor fistula output - Strict I's & O's - Pain control - Frequent repositioning - OOB to chair/Encourage ambulation/Incentive Spirometer - PT/OT - Further recs as per Dr. Zaynab Soares PGY1
--- NOTE | 2017-08-15 22:02 | CP.PCM.PN ---
Subjective - Date & Time of Evaluation Date of Evaluation: 08/15/17 Time of Evaluation: 12:00 - Subjective Subjective: Has some abdominal pain, confused today. Objective - Vital Signs/Intake and Output Vital Signs (last 24 hours): Temp Pulse Resp BP Pulse Ox 97.9 F 82 18 127/74 96 08/15/17 16:17 08/15/17 21:17 08/15/17 16:17 08/15/17 21:17 08/15/17 16:17 - Medications Medications: Current Medications Acetaminophen (Tylenol 325mg Tab) 650 mg PO Q4 PRN PRN Reason: Pain, moderate (4-7) Last Admin: 08/12/17 18:42 Dose: 650 mg Bisacodyl (Dulcolax) 10 mg [place] DAILY PRN PRN Reason: Constipation Last Admin: 08/07/17 14:18 Dose: 10 mg Cyanocobalamin (Vitamin B12 1000 Mcg Tab) 1,000 mcg PO DAILY [facility] Last Admin: 08/15/17 09:41 Dose: 1,000 mcg Cyclobenzaprine HCl (Flexeril) 10 mg PO Q12 [facility] Last Admin: 08/15/17 21:17 Dose: 10 mg Epoetin Mata (Procrit) 20,000 unit SC MWF [facility] Last Admin: 08/15/17 09:43 Dose: 20,000 unit Ferrous Sulfate (Feosol Liq) 300 mg PO BID [facility] Last Admin: 08/15/17 17:49 Dose: Not Given Guaifenesin/Dextromethorphan (Robitussin Dm) 10 ml PO Q6 PRN PRN Reason: Cough Last Admin: 08/07/17 08:34 Dose: 10 ml Heparin Sodium (Porcine) (Heparin) 5,000 units SC Q8 [facility] PRN Reason: Protocol Last Admin: 08/15/17 17:42 Dose: Not Given Fluconazole (Diflucan Iv 100 Mg/50 Ml Ns) 50 mls @ 50 mls/hr IVPB DAILY [facility] PRN Reason: Protocol Last Admin: 08/15/17 09:51 Dose: 50 mls/hr Piperacillin Sod/Tazobactam (Sod 3.375 gm/ Sodium Chloride) 100 mls @ 100 mls/ hr IVPB Q8@0100,0900,1700 [facility] PRN Reason: Protocol Last Admin: 08/15/17 17:35 Dose: 100 mls/hr Chromium/Copper/Manganese/Zinc 3 ml/ Multivitamins/Vitamin C 10 ml/ Amino Acids/ Electrolytes/Dextrose 1,013 mls @ 55 mls/hr IV .[id number] ONE Stop: 08/17/19 18:25 Dextrose (Dextrose 10% In Water) 500 mls @ 80 mls/hr IV .Q6H15M [facility] Stop: 08/16/17 17:44 Last Admin: 08/15/17 17:48 Dose: 80 mls/hr Insulin Human Lispro (Humalog) 0 units SC Q6H [facility] PRN Reason: Protocol Last Admin: 08/15/17 17:34 Dose: Not Given Lamivudine (Epivir) 150 mg PO DAILY [facility] PRN Reason: Protocol Lidocaine (Lidoderm) 1 ea TD DAILY [facility] Last Admin: 08/15/17 09:41 Dose: 1 ea Lorazepam (Ativan) 0.5 mg IVP Q6 PRN PRN Reason: Agitation Metoprolol Tartrate (Lopressor) 50 mg PO Q12 [facility] Last Admin: 08/15/17 21:17 Dose: 50 mg Pantoprazole Sodium (Protonix Ec Tab) 40 mg PO DAILY [facility] Last Admin: 08/15/17 09:44 Dose: 40 mg Tramadol HCl (Ultram) 50 mg PO Q6 PRN PRN Reason: Pain, moderate (4-7) Last Admin: 08/15/17 00:35 Dose: 50 mg - Labs Labs: 08/15/17 11:03 08/15/17 09:02 PT 13.2 Seconds (9.8-13.1) H 08/07/17 14:20 INR 1.2 (0.9-1.2) 08/07/17 14:20 APTT 39.1 Seconds (25.6-37.1) H 07/22/17 05:20 - Head Exam Head Exam: ATRAUMATIC - Eye Exam Eye Exam: Normal appearance - ENT Exam ENT Exam: Mucous Membranes Dry - Respiratory Exam Respiratory Exam: NORMAL BREATHING PATTERN - Cardiovascular Exam Cardiovascular Exam: +S1, +S2 - GI/Abdominal Exam GI & Abdominal Exam: Normal Bowel Sounds Assessment and Plan (1) Pancytopenia Assessment & Plan: mild leukopenia anemia of chronic disease on procrit s/p transfusion support plt count stabilized Status: Acute
[2017-08-16] MEDS: Piperacillin/Tazobact 3.375 GM in Sodium Chloride 0.9% 100 ML IVPB SCH ×3 (00:42→16:14)
[2017-08-16] MEDS: Insulin Lispro (humaLOG) 100 Units/ml Inj SC SCH ×4 (04:34→22:23)
[2017-08-16 07:43] LABS: HEMOGLOBIN 12.9 g/dL (12.0-18.0); MEAN CELL VOLUME 97.3 fl (80.0-94.0); MEAN CORPUSCULAR HEMOGLOBIN 32.6 pg (27.0-31.0); MEAN CORPUSCULAR HGB CONC 33.5 g/dL (33.0-37.0); RBC 3.95 Mil/uL (4.40-5.90); RED CELL DISTRIBUTION WIDTH 19.3 % (11.5-14.5); WHITE BLOOD COUNT 4.4 K/uL (4.8-10.8)
[2017-08-16 08:01] LABS: ALB/GLOB RATIO 0.6 (1.0-2.1); ALBUMIN 2.3 g/dL (3.5-5.0); ALT/SGPT 34 U/L (21-72); AST/SGOT 23 U/L (17-59); BLOOD UREA NITROGEN 12 mg/dl (9-20); CALCIUM 7.8 mg/dL (8.4-10.2); GFR AFRICAN-AMERICAN > 60; GFR NON-AFRICAN AMERICAN > 60
--- NOTE | 2017-08-16 08:27 | CP.PCM.PN ---
Subjective - Date & Time of Evaluation Date of Evaluation: 08/16/17 Time of Evaluation: 07:15 - Subjective Subjective: General Surgery Note for Dr. Worthy Patient seen and examined at bedside. No acute events overnight. Patient is still extremely confused today. He continues to require 1-1 observation. Patient pulled out PICC line yesterday due to confusion. Will continue TPN and start low residual diet. As per Dr. worthy, patient can have some juice and water as well. Objective - Vital Signs/Intake and Output Vital Signs (last 24 hours): Temp Pulse Resp BP Pulse Ox 98 F 76 19 119/78 95 08/16/17 00:32 08/16/17 00:32 08/16/17 00:32 08/16/17 00:32 08/16/17 00:32 Intake and Output: 08/16/17 08/16/17 06:59 18:59 Intake Total 1160 Output Total 3600 Balance -2440 - Medications Medications: Current Medications Acetaminophen (Tylenol 325mg Tab) 650 mg PO Q4 PRN PRN Reason: Pain, moderate (4-7) Last Admin: 08/12/17 18:42 Dose: 650 mg Bisacodyl (Dulcolax) 10 mg [place] DAILY PRN PRN Reason: Constipation Last Admin: 08/07/17 14:18 Dose: 10 mg Cyanocobalamin (Vitamin B12 1000 Mcg Tab) 1,000 mcg PO DAILY [facility] Last Admin: 08/15/17 09:41 Dose: 1,000 mcg Cyclobenzaprine HCl (Flexeril) 10 mg PO Q12 [facility] Last Admin: 08/15/17 21:17 Dose: 10 mg Epoetin Mata (Procrit) 20,000 unit SC MWF [facility] Last Admin: 08/15/17 09:43 Dose: 20,000 unit Ferrous Sulfate (Feosol Liq) 300 mg PO BID [facility] Last Admin: 08/15/17 17:49 Dose: Not Given Guaifenesin/Dextromethorphan (Robitussin Dm) 10 ml PO Q6 PRN PRN Reason: Cough Last Admin: 08/07/17 08:34 Dose: 10 ml Heparin Sodium (Porcine) (Heparin) 5,000 units SC Q8 [facility] PRN Reason: Protocol Last Admin: 08/16/17 00:39 Dose: 5,000 units Fluconazole (Diflucan Iv 100 Mg/50 Ml Ns) 50 mls @ 50 mls/hr IVPB DAILY [facility] PRN Reason: Protocol Last Admin: 08/15/17 09:51 Dose: 50 mls/hr Piperacillin Sod/Tazobactam (Sod 3.375 gm/ Sodium Chloride) 100 mls @ 100 mls/ hr IVPB Q8@0100,0900,1700 [facility] PRN Reason: Protocol Last Admin: 08/16/17 00:42 Dose: 100 mls/hr Chromium/Copper/Manganese/Zinc 3 ml/ Multivitamins/Vitamin C 10 ml/ Amino Acids/ Electrolytes/Dextrose 1,013 mls @ 55 mls/hr IV .[id number] ONE Stop: 08/17/19 18:25 Dextrose (Dextrose 10% In Water) 500 mls @ 80 mls/hr IV .Q6H15M [facility] Stop: 08/16/17 17:44 Last Admin: 08/16/17 06:30 Dose: Not Given Insulin Human Lispro (Humalog) 0 units SC Q6H [facility] PRN Reason: Protocol Last Admin: 08/16/17 04:34 Dose: Not Given Lamivudine (Epivir) 150 mg PO DAILY [facility] PRN Reason: Protocol Lidocaine (Lidoderm) 1 ea TD DAILY [facility] Last Admin: 08/15/17 09:41 Dose: 1 ea Lorazepam (Ativan) 0.5 mg IVP Q6 PRN PRN Reason: Agitation Last Admin: 08/15/17 23:49 Dose: 0.5 mg Metoprolol Tartrate (Lopressor) 50 mg PO Q12 [facility] Last Admin: 08/15/17 21:17 Dose: 50 mg Pantoprazole Sodium (Protonix Ec Tab) 40 mg PO DAILY [facility] Last Admin: 08/15/17 09:44 Dose: 40 mg Tramadol HCl (Ultram) 50 mg PO Q6 PRN PRN Reason: Pain, moderate (4-7) Last Admin: 08/15/17 00:35 Dose: 50 mg - Labs Labs: 08/16/17 07:37 08/16/17 07:37 PT 13.2 Seconds (9.8-13.1) H 08/07/17 14:20 INR 1.2 (0.9-1.2) 08/07/17 14:20 APTT 39.1 Seconds (25.6-37.1) H 07/22/17 05:20 - Constitutional Appears: Confused - Head Exam Head Exam: NORMOCEPHALIC - Eye Exam Eye Exam: Normal appearance - ENT Exam ENT Exam: Mucous Membranes Dry - Respiratory Exam Respiratory Exam: NORMAL BREATHING PATTERN - Cardiovascular Exam Cardiovascular Exam: REGULAR RHYTHM - GI/Abdominal Exam GI & Abdominal Exam: Soft, Rebound. absent: Distended, Firm, Guarding, Tenderness Additional comments: colostomy bag with stool output on midline wound, output was 400cc - Extremities Exam Extremities Exam: Normal Capillary Refill - Neurological Exam Neurological Exam: Altered - Psychiatric Exam Psychiatric exam: Flat Affect - Skin Skin Exam: Dry, Warm Assessment and Plan - Assessment and Plan (Free Text) Plan: 72M s/p ex-lap for perforated viscous with Small bowel resection with anastomosis POD#39, with post-op leak and colocutaneous fistula, s/p IR drainage - ABXR shows contrast in small bowel, low resdiual diet ordered for more nutrition - TPN: 25% dextrose, 5% Amino acids, 250 ml Intralipids daily - Monitor fistula output - Strict I's & O's - Pain control - Frequent repositioning - OOB to chair/Encourage ambulation/Incentive Spirometer - PT/OT - Further recs as per Dr. Zaynab Soares PGY1
[2017-08-16] MEDS ORDERED: Magnesium Sulfate 2 gm/50 ml 2 GM/50 ML BAG IVPB ONE (08:45)
--- NOTE | 2017-08-16 08:49 | RAD ---
HISTORY: r/o obstruction COMPARISON: 07/24/2017 FINDINGS: BOWEL: There is oral contrast material seen within loops of small bowel and within the stomach. There is no evidence of bowel obstruction. No gross evidence of free intraperitoneal contrast material. Please note that this is an insensitive method for evaluation for bowel perforation. No hepatic or splenic enlargement is appreciated. No masses or abnormal intra-abdominal calcifications are appreciated. There is a percutaneous catheter extending from the right side to the pelvis. The vena caval filter is noted. Numerous surgical clips are seen in the upper abdomen. The patient is status post left hip arthroplasty and status post ORIF right hip. BONES: Normal. OTHER FINDINGS: None. IMPRESSION: No evidence of bowel obstruction or bowel perforation. Limited evaluation for bowel perforation. Additional findings as above.
--- NOTE | 2017-08-16 08:51 | RAD ---
HISTORY: r/o obstruction COMPARISON: 08/15/2017 at 8 p.m. FINDINGS: BOWEL: Normal bowel gas pattern. Oral contrast material administered earlier is again identify within small bowel loops. No gross evidence of bowel perforation. No evidence of bowel obstruction. Percutaneous catheter seen in right lower pelvis. No hepatic or splenic enlargement. No masses or abnormal calcifications. BONES: Normal. OTHER FINDINGS: None. IMPRESSION: No gross evidence of bowel perforation or bowel obstruction. This examination is of limited sensitivity for detection of bowel perforation.
[2017-08-16] MEDS ORDERED: Magnesium Sulfate 2 GM in Sodium Chloride 0.9% 100 ML IVPB ONE (09:00)
[2017-08-16] MEDS: Fluconazole IV 100mg/50 ml NS 50 ML IVPB SCH (09:18)
[2017-08-16] MEDS: Lidocaine 5% Patch TD SCH (09:20)
[2017-08-16] MEDS: Ferrous Sulfate 300 mg/5 mL Liq UD PO SCH ×3 (09:22→16:15)
[2017-08-16] MEDS: Pantoprazole 40 mg EC Tab PO SCH ×2 (09:25→10:18)
[2017-08-16 11:09] LABS: ABG ALLEN TEST YES; ARTERIAL BLOOD GAS O2 CAPACITY 15.2 mL/dL (16-24); ARTERIAL BLOOD GAS O2 CONTENT 15.1 ML/dL (15-23); ARTERIAL BLOOD GAS O2 SAT 99.5 % (95-98); ARTERIAL BLOOD GAS PCO2 32 mm/Hg (35-45); ARTERIAL BLOOD GAS PH 7.47 (7.35-7.45); ARTERIAL BLOOD GAS PO2 120 mm/Hg (80-100); ARTERIAL BLOOD GAS TCO2 24.3 mmol/L (22-28)
--- NOTE | 2017-08-16 12:17 | CP.PCM.PN ---
Subjective - Date & Time of Evaluation Date of Evaluation: 08/16/17 Time of Evaluation: 12:00 - Subjective Subjective: Has some abdominal pain, still confused. Objective - Vital Signs/Intake and Output Vital Signs (last 24 hours): Temp Pulse Resp BP Pulse Ox 98.1 F 50 L 20 97/59 L 99 08/16/17 08:28 08/16/17 09:23 08/16/17 08:28 08/16/17 09:23 08/16/17 08:28 Intake and Output: 08/16/17 08/16/17 06:59 18:59 Intake Total 1160 Output Total 3600 Balance -2440 - Medications Medications: Current Medications Acetaminophen (Tylenol 325mg Tab) 650 mg PO Q4 PRN PRN Reason: Pain, moderate (4-7) Last Admin: 08/12/17 18:42 Dose: 650 mg Bisacodyl (Dulcolax) 10 mg [place] DAILY PRN PRN Reason: Constipation Last Admin: 08/07/17 14:18 Dose: 10 mg Cyanocobalamin (Vitamin B12 1000 Mcg Tab) 1,000 mcg PO DAILY [facility] Last Admin: 08/16/17 10:18 Dose: Not Given Cyclobenzaprine HCl (Flexeril) 10 mg PO Q12 [facility] Last Admin: 08/16/17 10:18 Dose: Not Given Epoetin Mata (Procrit) 20,000 unit SC MWF [facility] Last Admin: 08/15/17 09:43 Dose: 20,000 unit Ferrous Sulfate (Feosol Liq) 300 mg PO BID [facility] Last Admin: 08/16/17 10:18 Dose: Not Given Guaifenesin/Dextromethorphan (Robitussin Dm) 10 ml PO Q6 PRN PRN Reason: Cough Last Admin: 08/07/17 08:34 Dose: 10 ml Heparin Sodium (Porcine) (Heparin) 5,000 units SC Q8 [facility] PRN Reason: Protocol Last Admin: 08/16/17 09:22 Dose: 5,000 units Fluconazole (Diflucan Iv 100 Mg/50 Ml Ns) 50 mls @ 50 mls/hr IVPB DAILY [facility] PRN Reason: Protocol Last Admin: 08/16/17 09:18 Dose: 50 mls/hr Piperacillin Sod/Tazobactam (Sod 3.375 gm/ Sodium Chloride) 100 mls @ 100 mls/ hr IVPB Q8@0100,0900,1700 [facility] PRN Reason: Protocol Last Admin: 08/16/17 09:19 Dose: 100 mls/hr Chromium/Copper/Manganese/Zinc 3 ml/ Multivitamins/Vitamin C 10 ml/ Amino Acids/ Electrolytes/Dextrose 1,013 mls @ 55 mls/hr IV .[id number] ONE Stop: 08/17/19 18:25 Dextrose (Dextrose 10% In Water) 500 mls @ 80 mls/hr IV .Q6H15M [facility] Stop: 08/16/17 17:44 Last Admin: 08/16/17 06:30 Dose: Not Given Insulin Human Lispro (Humalog) 0 units SC Q6H [facility] PRN Reason: Protocol Last Admin: 08/16/17 04:34 Dose: Not Given Lamivudine (Epivir) 150 mg PO DAILY [facility] PRN Reason: Protocol Last Admin: 08/16/17 10:16 Dose: Not Given Lidocaine (Lidoderm) 1 ea TD DAILY [facility] Last Admin: 08/16/17 09:20 Dose: 1 ea Lorazepam (Ativan) 0.5 mg IVP Q6 PRN PRN Reason: Agitation Last Admin: 08/15/17 23:49 Dose: 0.5 mg Pantoprazole Sodium (Protonix Ec Tab) 40 mg PO DAILY [facility] Last Admin: 08/16/17 10:18 Dose: Not Given Tramadol HCl (Ultram) 50 mg PO Q6 PRN PRN Reason: Pain, moderate (4-7) Last Admin: 08/15/17 00:35 Dose: 50 mg - Labs Labs: 08/16/17 07:37 08/16/17 07:37 PT 13.2 Seconds (9.8-13.1) H 08/07/17 14:20 INR 1.2 (0.9-1.2) 08/07/17 14:20 APTT 39.1 Seconds (25.6-37.1) H 07/22/17 05:20 - Head Exam Head Exam: ATRAUMATIC - Eye Exam Eye Exam: Normal appearance - ENT Exam ENT Exam: Mucous Membranes Dry - Respiratory Exam Respiratory Exam: NORMAL BREATHING PATTERN - Cardiovascular Exam Cardiovascular Exam: +S1, +S2 - GI/Abdominal Exam GI & Abdominal Exam: Normal Bowel Sounds Assessment and Plan (1) Pancytopenia Assessment & Plan: mild leukopenia anemia of chronic disease on procrit; goal Hgb ~ 10 s/p transfusion support plt count stabilized Status: Acute
--- NOTE | 2017-08-16 12:58 | CP.PCM.PN ---
<Willard Akhtar - Last Filed: 08/16/17 12:55> Subjective - Date & Time of Evaluation Date of Evaluation: 08/16/17 Time of Evaluation: 10:20 - Subjective Subjective: Patient seen and examined this morning at bedside. Patient NAD; however confused. Pulled PICC line yesterday and attempted pull drains. Patient is POD38. Patient on pulmonary sport bed. Patient on TPN but will be started on low residual diet. Objective - Vital Signs/Intake and Output Vital Signs (last 24 hours): Temp Pulse Resp BP Pulse Ox 98.1 F 50 L 20 97/59 L 99 08/16/17 08:28 08/16/17 09:23 08/16/17 08:28 08/16/17 09:23 08/16/17 08:28 Intake and Output: 08/16/17 08/16/17 06:59 18:59 Intake Total 1160 Output Total 3600 Balance -2440 - Medications Medications: Current Medications Acetaminophen (Tylenol 325mg Tab) 650 mg PO Q4 PRN PRN Reason: Pain, moderate (4-7) Last Admin: 08/12/17 18:42 Dose: 650 mg Bisacodyl (Dulcolax) 10 mg MA DAILY PRN PRN Reason: Constipation Last Admin: 08/07/17 14:18 Dose: 10 mg Cyanocobalamin (Vitamin B12 1000 Mcg Tab) 1,000 mcg PO DAILY [facility] Last Admin: 08/16/17 10:18 Dose: Not Given Cyclobenzaprine HCl (Flexeril) 10 mg PO Q12 [facility] Last Admin: 08/16/17 10:18 Dose: Not Given Epoetin Karolyn (Procrit) 20,000 unit SC MWF [facility] Last Admin: 08/15/17 09:43 Dose: 20,000 unit Ferrous Sulfate (Feosol Liq) 300 mg PO BID [facility] Last Admin: 08/16/17 10:18 Dose: Not Given Guaifenesin/Dextromethorphan (Robitussin Dm) 10 ml PO Q6 PRN PRN Reason: Cough Last Admin: 08/07/17 08:34 Dose: 10 ml Heparin Sodium (Porcine) (Heparin) 5,000 units SC Q8 [facility] PRN Reason: Protocol Last Admin: 08/16/17 09:22 Dose: 5,000 units Fluconazole (Diflucan Iv 100 Mg/50 Ml Ns) 50 mls @ 50 mls/hr IVPB DAILY [facility] PRN Reason: Protocol Last Admin: 08/16/17 09:18 Dose: 50 mls/hr Piperacillin Sod/Tazobactam (Sod 3.375 gm/ Sodium Chloride) 100 mls @ 100 mls/ hr IVPB Q8@0100,0900,1700 [facility] PRN Reason: Protocol Last Admin: 08/16/17 09:19 Dose: 100 mls/hr Chromium/Copper/Manganese/Zinc 3 ml/ Multivitamins/Vitamin C 10 ml/ Amino Acids/ Electrolytes/Dextrose 1,013 mls @ 55 mls/hr IV .[id number] ONE Stop: 08/17/19 18:25 Dextrose (Dextrose 10% In Water) 500 mls @ 80 mls/hr IV .Q6H15M [facility] Stop: 08/16/17 17:44 Last Admin: 08/16/17 06:30 Dose: Not Given Insulin Human Lispro (Humalog) 0 units SC Q6H [facility] PRN Reason: Protocol Last Admin: 08/16/17 04:34 Dose: Not Given Lamivudine (Epivir) 150 mg PO DAILY [facility] PRN Reason: Protocol Last Admin: 08/16/17 10:16 Dose: Not Given Lidocaine (Lidoderm) 1 ea TD DAILY [facility] Last Admin: 08/16/17 09:20 Dose: 1 ea Lorazepam (Ativan) 0.5 mg IVP Q6 PRN PRN Reason: Agitation Last Admin: 08/15/17 23:49 Dose: 0.5 mg Pantoprazole Sodium (Protonix Ec Tab) 40 mg PO DAILY [facility] Last Admin: 08/16/17 10:18 Dose: Not Given Tramadol HCl (Ultram) 50 mg PO Q6 PRN PRN Reason: Pain, moderate (4-7) Last Admin: 08/15/17 00:35 Dose: 50 mg - Labs Labs: 08/16/17 07:37 08/16/17 07:37 PT 13.2 Seconds (9.8-13.1) H 08/07/17 14:20 INR 1.2 (0.9-1.2) 08/07/17 14:20 APTT 39.1 Seconds (25.6-37.1) H 07/22/17 05:20 - Constitutional Appears: Non-toxic, No Acute Distress, Confused - Head Exam Head Exam: ATRAUMATIC, NORMAL INSPECTION, NORMOCEPHALIC - Eye Exam Eye Exam: Normal appearance - ENT Exam ENT Exam: Mucous Membranes Dry - Neck Exam Neck Exam: Full ROM. absent: Tenderness - Respiratory Exam Respiratory Exam: Clear to Ausculation Bilateral. absent: Accessory Muscle Use , Decreased Breath Sounds, Rales, Rhonchi, Wheezes, Respiratory Distress - Cardiovascular Exam Cardiovascular Exam: REGULAR RHYTHM. absent: Tachycardia - GI/Abdominal Exam Additional comments: colostomy bag with stool output on midline wound, had output of 400cc - Extremities Exam Extremities Exam: absent: Calf Tenderness, Pedal Edema, Tenderness - Neurological Exam Neurological Exam: Alert, Altered, Awake. absent: Oriented x3 - Skin Skin Exam: Dry, Normal Color, Warm Assessment and Plan (1) Abdominal pain Status: Acute (2) Abscess Status: Acute (3) Atrial fibrillation Status: Acute (4) COPD (chronic obstructive pulmonary disease) Status: Acute (5) Essential (primary) hypertension Status: Acute (6) Hx of atrial fibrillation, no current medication Status: Acute (7) Intestinal perforation Status: Acute (8) Perforated abdominal viscus Status: Acute (9) Thrombocytopenia Status: Acute (10) Anemia Status: Acute - Assessment and Plan (Free Text) Plan: c/w present management. s/p ex-lap for perforated viscous with Small bowel resection with anastomosis, with post-op leak and EC fistula; POD 38 Surgery recommendations appreciated heme/onc recommendations appreciated pain management recommendations appreciated infectious disease recommendations appreciated neurology consult ordered leukopenia and anemia abdomen obstructive series XR: no bowel obstruction, probable small bilateral pleural effusion, no infiltrate, right apical opacity, possible neoplasm diflucan 100 mg IV daily day 12 zosyn 3.375 mg IV Q8h day 8 start lamivudine 150 mg PO daily IVF D10W @ 80 mL/h TPN @ 55 mL/h start low residual diet pain management: tylenol 650 mg PO Q4h, ultram 50 mg PO Q6h prn, flexeril 10 mg PO Q12h c/w epoetin karolyn c/w pulmonary sport bed f/u fluid culture/cytology f/u CT chest f/u CT head DVT PPX: heparin 5000 SC Q8h monitor for acute changes <Bronson Castaneda - Last Filed: 08/16/17 22:04> Objective - Vital Signs/Intake and Output Vital Signs (last 24 hours): Temp Pulse Resp BP Pulse Ox 98.1 F 50 L 20 97/59 L 99 08/16/17 08:28 08/16/17 09:23 08/16/17 08:28 08/16/17 09:23 08/16/17 08:28 Intake and Output: 08/16/17 08/17/17 18:59 06:59 Intake Total 1370 Output Total 1000 Balance 370 - Medications Medications: Current Medications Acetaminophen (Tylenol 325mg Tab) 650 mg PO Q4 PRN PRN Reason: Pain, moderate (4-7) Last Admin: 08/12/17 18:42 Dose: 650 mg Bisacodyl (Dulcolax) 10 mg MA DAILY PRN PRN Reason: Constipation Last Admin: 08/07/17 14:18 Dose: 10 mg Cyanocobalamin (Vitamin B12 1000 Mcg Tab) 1,000 mcg PO DAILY [facility] Last Admin: 08/16/17 10:18 Dose: Not Given Cyclobenzaprine HCl (Flexeril) 10 mg PO Q12 [facility] Last Admin: 08/16/17 21:48 Dose: Not Given Epoetin Karolyn (Procrit) 20,000 unit SC MWF [facility] Last Admin: 08/15/17 09:43 Dose: 20,000 unit Ferrous Sulfate (Feosol Liq) 300 mg PO BID [facility] Last Admin: 08/16/17 16:15 Dose: 300 mg Fluconazole (Diflucan) 100 mg PO DAILY [facility] Guaifenesin/Dextromethorphan (Robitussin Dm) 10 ml PO Q6 PRN PRN Reason: Cough Last Admin: 08/07/17 08:34 Dose: 10 ml Heparin Sodium (Porcine) (Heparin) 5,000 units SC Q8 [facility] PRN Reason: Protocol Last Admin: 08/16/17 16:15 Dose: 5,000 units Piperacillin Sod/Tazobactam (Sod 3.375 gm/ Sodium Chloride) 100 mls @ 100 mls/ hr IVPB Q8@0100,0900,1700 [facility] PRN Reason: Protocol Last Admin: 08/16/17 16:14 Dose: 100 mls/hr Chromium/Copper/Manganese/Zinc 3 ml/ Multivitamins/Vitamin C 10 ml/ Amino Acids/ Electrolytes/Dextrose 1,013 mls @ 55 mls/hr IV .[id number] [facility] Stop: 08/17/19 18:25 Insulin Human Lispro (Humalog) 0 units SC Q6H [facility] PRN Reason: Protocol Last Admin: 08/16/17 21:19 Dose: Not Given Lamivudine (Epivir) 150 mg PO DAILY [facility] PRN Reason: Protocol Last Admin: 08/16/17 10:16 Dose: Not Given Lidocaine (Lidoderm) 1 ea TD DAILY [facility] Last Admin: 08/16/17 09:20 Dose: 1 ea Lorazepam (Ativan) 0.5 mg IVP Q6 PRN PRN Reason: Agitation Last Admin: 08/16/17 12:58 Dose: 0.5 mg Pantoprazole Sodium (Protonix Ec Tab) 40 mg PO DAILY [facility] Last Admin: 08/16/17 10:18 Dose: Not Given - Labs Labs: 08/16/17 07:37 08/16/17 07:37 PT 13.2 Seconds (9.8-13.1) H 08/07/17 14:20 INR 1.2 (0.9-1.2) 08/07/17 14:20 APTT 39.1 Seconds (25.6-37.1) H 07/22/17 05:20 Assessment and Plan (1) Abdominal pain Status: Acute (2) COPD (chronic obstructive pulmonary disease) Status: Acute (3) Essential (primary) hypertension Status: Acute (4) Hx of atrial fibrillation, no current medication Status: Acute (5) Intestinal perforation Status: Acute (6) Perforated abdominal viscus Status: Acute (7) Atrial fibrillation Status: Acute (8) Anemia Status: Acute (9) Thrombocytopenia Status: Acute (10) Abscess Status: Acute (11) Delirium Status: Acute - Assessment and Plan (Free Text) Plan: I was present during evaluation and discussed with Dr Akhtar Will get neurology eval follow up labs cont nutrition. Bronson Castaneda M.D.
--- NOTE | 2017-08-16 14:02 | CT ---
PROCEDURE: CT HEAD WITHOUT CONTRAST. HISTORY: Acute confusion COMPARISON: 05/18/2017 TECHNIQUE: Axial computed tomography images were obtained through the head/brain without intravenous contrast. Radiation dose: Total exam DLP = 780.89 mGy-cm. This CT exam was performed using one or more of the following dose reduction techniques: Automated exposure control, adjustment of the mA and/or kV according to patient size, and/or use of iterative reconstruction technique. FINDINGS: HEMORRHAGE: No intracranial hemorrhage. BRAIN: No mass effect or edema. Moderate diffuse age-appropriate cerebral atrophy. Moderate patchy and confluent white matter lucency in the periventricular, deep and subcortical white matter, consistent with age related microvascular ischemic change. No evidence of acute infarct. VENTRICLES: Unremarkable. No hydrocephalus. CALVARIUM: Unremarkable. PARANASAL SINUSES: Unremarkable as visualized. No significant inflammatory changes. MASTOID AIR CELLS: Unremarkable as visualized. No inflammatory changes. OTHER FINDINGS: None. IMPRESSION: No intracranial mass, hemorrhage or evidence of acute infarct. Atrophy and chronic white matter ischemic change. No interval change from prior examination.
--- NOTE | 2017-08-16 14:17 | CT ---
PROCEDURE: CT Chest without contrast HISTORY: Confusion, ? R apical mass on x-ray report COMPARISON: 01/15/2017 TECHNIQUE: Contiguous axial images were obtained through the chest without intravenous contrast enhancement. Sagittal and coronal reconstructions were performed. Radiation dose (DLP): 707.57 mGy-cm. This CT exam was performed using one or more of the following dose reduction techniques: Automated exposure control, adjustment of the mA and/or kV according to patient size, and/or use of iterative reconstruction technique. FINDINGS: LUNGS: No pulmonary infiltrate. Cavitary lesion in the right apex with surrounding fibrotic scar entirely unchanged in morphology compared to the prior examination. The cavitary lesion measures roughly 2.4 x 3.4 x 4.6 cm. Possible old granulomatous disease. Neoplasm is felt to be unlikely. Adjacent to this cavitary lesion is a 2nd stable non cavitating mass, 0.8 x 1.4 cm. There is associated traction bronchiectasis in the right upper lobe. There is upward retraction of the minor fissure secondary to fibrotic scarring. There is mild centrilobular pulmonary emphysema. The lungs are hyperinflated. There are multiple blebs about the left upper lobe. There is no bullous change. There is mild bilateral lower lobe compressive atelectasis secondary to pleural effusions. MEDIASTINUM: Unremarkable thoracic aorta. No aneurysm. Normal sized heart. Mild pericardial effusion. Main pulmonary artery unremarkable. No vascular congestion. No lymphadenopathy. There are surgical clips seen about the distal thoracic esophagus. Correlate with history. PLEURA: Moderate bilateral pleural effusion. No pneumothorax. BONES: There is mild stable central compression deformity of the T12 vertebra with mild depression of the superior and inferior vertebral endplates centrally. There is no evidence of acute fracture. Old healed left 10th posterior rib fracture. UPPER ABDOMEN: Coarse pancreatic calcifications consistent with chronic pancreatitis. Dilated pancreatic duct. This is unchanged from prior examination. Inferior vena caval filter. Numerous surgical clips in the upper abdomen. OTHER FINDINGS: None. IMPRESSION: Emphysematous change. Moderate bilateral pleural effusion. Stable cavitary lesion in the right lung apex with associated extensive fibrotic scar and traction bronchiectasis. Nonspecific finding. Doubt neoplasm. Possible old granulomatous disease. Second smaller stable non cavitary soft tissue mass in the right apex as well. Chronic pancreatitis with dilated pancreatic duct. Stable mild central compression deformity of the T10 vertebra.
--- NOTE | 2017-08-16 22:01 | CP.PCM.PN ---
Subjective - Date & Time of Evaluation Date of Evaluation: 08/13/17 Time of Evaluation: 10:30 - Subjective Subjective: Patient remains stable Has no chest pain or SOB Afebrile. CBC and cmp are all normal. Objective - Vital Signs/Intake and Output Vital Signs (last 24 hours): Temp Pulse Resp BP Pulse Ox 98.1 F 50 L 20 97/59 L 99 08/16/17 08:28 08/16/17 09:23 08/16/17 08:28 08/16/17 09:23 08/16/17 08:28 Intake and Output: 08/16/17 08/17/17 18:59 06:59 Intake Total 1370 Output Total 1000 Balance 370 - Medications Medications: Current Medications Acetaminophen (Tylenol 325mg Tab) 650 mg PO Q4 PRN PRN Reason: Pain, moderate (4-7) Last Admin: 08/12/17 18:42 Dose: 650 mg Bisacodyl (Dulcolax) 10 mg GA DAILY PRN PRN Reason: Constipation Last Admin: 08/07/17 14:18 Dose: 10 mg Cyanocobalamin (Vitamin B12 1000 Mcg Tab) 1,000 mcg PO DAILY [facility] Last Admin: 08/16/17 10:18 Dose: Not Given Cyclobenzaprine HCl (Flexeril) 10 mg PO Q12 [facility] Last Admin: 08/16/17 21:48 Dose: Not Given Epoetin Mata (Procrit) 20,000 unit SC MWF [facility] Last Admin: 08/15/17 09:43 Dose: 20,000 unit Ferrous Sulfate (Feosol Liq) 300 mg PO BID [facility] Last Admin: 08/16/17 16:15 Dose: 300 mg Fluconazole (Diflucan) 100 mg PO DAILY [facility] Guaifenesin/Dextromethorphan (Robitussin Dm) 10 ml PO Q6 PRN PRN Reason: Cough Last Admin: 08/07/17 08:34 Dose: 10 ml Heparin Sodium (Porcine) (Heparin) 5,000 units SC Q8 [facility] PRN Reason: Protocol Last Admin: 08/16/17 16:15 Dose: 5,000 units Piperacillin Sod/Tazobactam (Sod 3.375 gm/ Sodium Chloride) 100 mls @ 100 mls/ hr IVPB Q8@0100,0900,1700 [facility] PRN Reason: Protocol Last Admin: 08/16/17 16:14 Dose: 100 mls/hr Chromium/Copper/Manganese/Zinc 3 ml/ Multivitamins/Vitamin C 10 ml/ Amino Acids/ Electrolytes/Dextrose 1,013 mls @ 55 mls/hr IV .[id number] ONE Stop: 08/17/19 18:25 Insulin Human Lispro (Humalog) 0 units SC Q6H [facility] PRN Reason: Protocol Last Admin: 08/16/17 21:19 Dose: Not Given Lamivudine (Epivir) 150 mg PO DAILY [facility] PRN Reason: Protocol Last Admin: 08/16/17 10:16 Dose: Not Given Lidocaine (Lidoderm) 1 ea TD DAILY [facility] Last Admin: 08/16/17 09:20 Dose: 1 ea Lorazepam (Ativan) 0.5 mg IVP Q6 PRN PRN Reason: Agitation Last Admin: 08/16/17 12:58 Dose: 0.5 mg Pantoprazole Sodium (Protonix Ec Tab) 40 mg PO DAILY [facility] Last Admin: 08/16/17 10:18 Dose: Not Given - Labs Labs: 08/16/17 07:37 08/16/17 07:37 PT 13.2 Seconds (9.8-13.1) H 08/07/17 14:20 INR 1.2 (0.9-1.2) 08/07/17 14:20 APTT 39.1 Seconds (25.6-37.1) H 07/22/17 05:20 - Head Exam Head Exam: NORMAL INSPECTION - Eye Exam Eye Exam: Normal appearance - ENT Exam ENT Exam: Mucous Membranes Moist - Respiratory Exam Respiratory Exam: Chest Wall Tenderness, Clear to Ausculation Bilateral, NORMAL BREATHING PATTERN - GI/Abdominal Exam GI & Abdominal Exam: Normal Bowel Sounds - Neurological Exam Neurological Exam: Awake, Oriented x3 Assessment and Plan (1) Abdominal pain Status: Acute (2) COPD (chronic obstructive pulmonary disease) Status: Acute (3) Essential (primary) hypertension Status: Acute (4) Hx of atrial fibrillation, no current medication Status: Acute (5) Intestinal perforation Status: Acute (6) Perforated abdominal viscus Status: Acute (7) Atrial fibrillation Status: Acute (8) Anemia Status: Acute (9) Thrombocytopenia Status: Acute (10) Abscess Status: Acute - Assessment and Plan (Free Text) Plan: Cont meds Cont tx Cont nutrition follow up with surgery
--- NOTE | 2017-08-16 23:35 | CP.PCM.CON ---
History of Present Illness - History of Present Illness History of Present Illness: 72 yr old male who is admitted for abdominal, pain , perforated viscus now on medical floor with diagnosis of Copd, At [facility], now with a spell of altered mental status where he became quite confused. Chart reviewed and medications noted. The patient has baseline dementia and has not had any tonic clonic seizures, or bouts of delirium so far during admission. PMH/PSH: as above FH/SH: non contributory All:nkda On exam: awake, alert, oriented to himself only. PERRL. EOMI. moves all extremities. Follows commands sporadically. Gait not tested. no drift. Past Patient History - Infectious Disease Hx of Infectious Diseases: None - Tetanus Immunizations Tetanus Immunization: Unknown - Past Medical History & Family History Past Medical History?: Yes - Past Social History Smoking Status: Former Smoker Alcohol: None Drugs: Denies Home Situation {Lives}: Alone - CARDIAC Hx Atrial Fibrillation: Yes Hx Hypertension: Yes - PULMONARY Hx Chronic Obstructive Pulmonary Disease (COPD): Yes Hx Pneumonia: Yes - NEUROLOGICAL Hx Neurological Disorder: No - HEENT Hx HEENT Problems: Yes Other/Comment: Glasses - RENAL Hx Chronic Kidney Disease: No - ENDOCRINE/METABOLIC Hx Endocrine Disorders: No - HEMATOLOGICAL/ONCOLOGICAL Hx Human Immunodeficiency Virus (HIV): No - INTEGUMENTARY Hx Dermatological Problems: No - MUSCULOSKELETAL/RHEUMATOLOGICAL Hx Arthritis: Yes Hx Fractures: Yes Hx Rheumatoid Arthritis: Yes - GASTROINTESTINAL Hx Gastrointestinal Disorders: Yes Hx Ulcer: Yes - GENITOURINARY/GYNECOLOGICAL Hx Genitourinary Disorders: No - PSYCHIATRIC Hx Psychophysiologic Disorder: No Hx Substance Use: No - SURGICAL HISTORY Hx Cholecystectomy: Yes - ANESTHESIA Hx Anesthesia: Yes Hx Anesthesia Reactions: No Hx Malignant Hyperthermia: No Meds Allergies/Adverse Reactions: Allergies Allergy/AdvReac Type Severity Reaction Status Date / Time No Known Allergies Allergy Verified 07/07/17 14:40 - Medications Medications: Current Medications Acetaminophen (Tylenol 325mg Tab) 650 mg PO Q4 PRN PRN Reason: Pain, moderate (4-7) Last Admin: 08/12/17 18:42 Dose: 650 mg Bisacodyl (Dulcolax) 10 mg ND DAILY PRN PRN Reason: Constipation Last Admin: 08/07/17 14:18 Dose: 10 mg Cyanocobalamin (Vitamin B12 1000 Mcg Tab) 1,000 mcg PO DAILY [facility] Last Admin: 08/16/17 10:18 Dose: Not Given Cyclobenzaprine HCl (Flexeril) 10 mg PO Q12 [facility] Last Admin: 08/16/17 21:48 Dose: Not Given Epoetin Mata (Procrit) 20,000 unit SC MWF [facility] Last Admin: 08/15/17 09:43 Dose: 20,000 unit Ferrous Sulfate (Feosol Liq) 300 mg PO BID [facility] Last Admin: 08/16/17 16:15 Dose: 300 mg Fluconazole (Diflucan) 100 mg PO DAILY [facility] Guaifenesin/Dextromethorphan (Robitussin Dm) 10 ml PO Q6 PRN PRN Reason: Cough Last Admin: 08/07/17 08:34 Dose: 10 ml Heparin Sodium (Porcine) (Heparin) 5,000 units SC Q8 [facility] PRN Reason: Protocol Last Admin: 08/16/17 16:15 Dose: 5,000 units Piperacillin Sod/Tazobactam (Sod 3.375 gm/ Sodium Chloride) 100 mls @ 100 mls/ hr IVPB Q8@0100,0900,1700 [facility] PRN Reason: Protocol Last Admin: 08/16/17 16:14 Dose: 100 mls/hr Chromium/Copper/Manganese/Zinc 3 ml/ Multivitamins/Vitamin C 10 ml/ Amino Acids/ Electrolytes/Dextrose 1,013 mls @ 55 mls/hr IV .[id number] ONE Stop: 08/17/19 18:25 Insulin Human Lispro (Humalog) 0 units SC Q6H [facility] PRN Reason: Protocol Last Admin: 08/16/17 22:23 Dose: Not Given Lamivudine (Epivir) 150 mg PO DAILY [facility] PRN Reason: Protocol Last Admin: 08/16/17 10:16 Dose: Not Given Lidocaine (Lidoderm) 1 ea TD DAILY [facility] Last Admin: 08/16/17 09:20 Dose: 1 ea Lorazepam (Ativan) 0.5 mg IVP Q6 PRN PRN Reason: Agitation Last Admin: 08/16/17 12:58 Dose: 0.5 mg Pantoprazole Sodium (Protonix Ec Tab) 40 mg PO DAILY [facility] Last Admin: 08/16/17 10:18 Dose: Not Given Results - Vital Signs Recent Vital Signs: Last Vital Signs Temp 98.1 F 08/16/17 08:28 Pulse 50 L 08/16/17 09:23 Resp 20 08/16/17 08:28 BP 97/59 L 08/16/17 09:23 Pulse Ox 99 08/16/17 08:28 - Labs Result Diagrams: 08/16/17 07:37 08/16/17 07:37 Labs: Laboratory Results - last 24 hr 08/16/17 08/16/17 08/16/17 04:17 07:37 07:37 WBC 4.4 L RBC 3.95 L Hgb 12.9 D Hct 38.4 MCV 97.3 H D MCH 32.6 H MCHC 33.5 RDW 19.3 H Plt Count 171 pCO2 pO2 HCO3 ABG pH ABG Total CO2 ABG O2 Saturation ABG O2 Content ABG Base Excess ABG Hemoglobin ABG Carboxyhemoglobin POC ABG HHb (Measured) ABG Methemoglobin ABG O2 Capacity Perry Test A-a O2 Difference Hgb O2 Saturation FiO2 Sodium 133 Potassium 3.8 Chloride 99 Carbon Dioxide 24 Anion Gap 14 BUN 12 Creatinine 0.6 L Est GFR ( Amer) > 60 Est GFR (Non-Af Amer) > 60 POC Glucose (mg/dL) 77 Random Glucose 83 Calcium 7.8 L Phosphorus Cancelled Magnesium Cancelled Total Bilirubin 1.1 AST 23 ALT 34 Alkaline Phosphatase 108 Total Protein 6.1 L Albumin 2.3 L Globulin 3.8 Albumin/Globulin Ratio 0.6 L Prealbumin 08/16/17 08/16/17 08/16/17 07:38 08:27 08:39 WBC RBC Hgb Hct MCV MCH MCHC RDW Plt Count pCO2 32 L pO2 120 H HCO3 25.0 ABG pH 7.47 H ABG Total CO2 24.3 ABG O2 Saturation 99.5 H ABG O2 Content 15.1 ABG Base Excess 0.1 ABG Hemoglobin 11.0 L ABG Carboxyhemoglobin 2.2 H POC ABG HHb (Measured) 0.5 ABG Methemoglobin 0.7 ABG O2 Capacity 15.2 L Perry Test Yes A-a O2 Difference 40.0 Hgb O2 Saturation 96.6 FiO2 28.0 Sodium Potassium Chloride Carbon Dioxide Anion Gap BUN Creatinine Est GFR ( Amer) Est GFR (Non-Af Amer) POC Glucose (mg/dL) Random Glucose Calcium Phosphorus 3.3 Magnesium 1.4 L Total Bilirubin AST ALT Alkaline Phosphatase Total Protein Albumin Globulin Albumin/Globulin Ratio Prealbumin 6.2 L 08/16/17 08/16/17 08/16/17 11:07 16:31 21:58 WBC RBC Hgb Hct MCV MCH MCHC RDW Plt Count pCO2 pO2 HCO3 ABG pH ABG Total CO2 ABG O2 Saturation ABG O2 Content ABG Base Excess ABG Hemoglobin ABG Carboxyhemoglobin POC ABG HHb (Measured) ABG Methemoglobin ABG O2 Capacity Perry Test A-a O2 Difference Hgb O2 Saturation FiO2 Sodium Potassium Chloride Carbon Dioxide Anion Gap BUN Creatinine Est GFR ( Amer) Est GFR (Non-Af Amer) POC Glucose (mg/dL) 88 85 101 Random Glucose Calcium Phosphorus Magnesium Total Bilirubin AST ALT Alkaline Phosphatase Total Protein Albumin Globulin Albumin/Globulin Ratio Prealbumin - Imaging and Cardiology CT scan - head Status: Image reviewed by me, Report reviewed by me Assessment & Plan - Assessment and Plan (Free Text) Assessment: 72 yr old male with waxing and waning delirium and sundowning. I would recommend decreasing opiod medications, and starting physical therapy. There are no signs to indicate a stroke at this time. Thank you our team will follow DR. Rick MD
[2017-08-17] MEDS: Piperacillin/Tazobact 3.375 GM in Sodium Chloride 0.9% 100 ML IVPB SCH ×3 (00:19→16:11)
[2017-08-17] MEDS: Insulin Lispro (humaLOG) 100 Units/ml Inj SC SCH ×4 (05:31→21:44)
--- NOTE | 2017-08-17 08:26 | CP.PCM.PN ---
Subjective - Date & Time of Evaluation Date of Evaluation: 08/17/17 Time of Evaluation: 08:22 - Subjective Subjective: SURGERY PROGRESS NOTE FOR DR. ODOM 72M seen and examined at bedside. Patient resting comfortably. Patient still somewhat confused and slightly altered. He is tolerating low residual diet which was started yesterday. Objective - Vital Signs/Intake and Output Vital Signs (last 24 hours): Temp Pulse Resp BP Pulse Ox 97.5 F L 95 H 20 117/67 100 08/17/17 01:00 08/17/17 01:00 08/17/17 01:00 08/17/17 01:00 08/17/17 01:00 Intake and Output: 08/17/17 08/17/17 06:59 18:59 Intake Total 980 Output Total 1700 Balance -720 - Medications Medications: Current Medications Acetaminophen (Tylenol 325mg Tab) 650 mg PO Q4 PRN PRN Reason: Pain, moderate (4-7) Last Admin: 08/12/17 18:42 Dose: 650 mg Bisacodyl (Dulcolax) 10 mg [place] DAILY PRN PRN Reason: Constipation Last Admin: 08/07/17 14:18 Dose: 10 mg Cyanocobalamin (Vitamin B12 1000 Mcg Tab) 1,000 mcg PO DAILY [facility] Last Admin: 08/16/17 10:18 Dose: Not Given Cyclobenzaprine HCl (Flexeril) 10 mg PO Q12 [facility] Last Admin: 08/16/17 21:48 Dose: Not Given Epoetin Mata (Procrit) 20,000 unit SC MWF [facility] Last Admin: 08/15/17 09:43 Dose: 20,000 unit Ferrous Sulfate (Feosol Liq) 300 mg PO BID [facility] Last Admin: 08/16/17 16:15 Dose: 300 mg Fluconazole (Diflucan) 100 mg PO DAILY [facility] Guaifenesin/Dextromethorphan (Robitussin Dm) 10 ml PO Q6 PRN PRN Reason: Cough Last Admin: 08/07/17 08:34 Dose: 10 ml Heparin Sodium (Porcine) (Heparin) 5,000 units SC Q8 [facility] PRN Reason: Protocol Last Admin: 08/17/17 01:02 Dose: Not Given Piperacillin Sod/Tazobactam (Sod 3.375 gm/ Sodium Chloride) 100 mls @ 100 mls/ hr IVPB Q8@0100,0900,1700 [facility] PRN Reason: Protocol Last Admin: 08/17/17 00:19 Dose: 100 mls/hr Chromium/Copper/Manganese/Zinc 3 ml/ Multivitamins/Vitamin C 10 ml/ Amino Acids/ Electrolytes/Dextrose 1,013 mls @ 55 mls/hr IV .[id number] ONE Stop: 08/17/19 18:25 Insulin Human Lispro (Humalog) 0 units SC Q6H [facility] PRN Reason: Protocol Last Admin: 08/17/17 05:31 Dose: 1 units Lamivudine (Epivir) 150 mg PO DAILY [facility] PRN Reason: Protocol Last Admin: 08/16/17 10:16 Dose: Not Given Lidocaine (Lidoderm) 1 ea TD DAILY [facility] Last Admin: 08/16/17 09:20 Dose: 1 ea Lorazepam (Ativan) 0.5 mg IVP Q6 PRN PRN Reason: Agitation Last Admin: 08/16/17 12:58 Dose: 0.5 mg Pantoprazole Sodium (Protonix Ec Tab) 40 mg PO DAILY [facility] Last Admin: 08/16/17 10:18 Dose: Not Given - Labs Labs: 08/16/17 07:37 08/16/17 07:37 PT 13.2 Seconds (9.8-13.1) H 08/07/17 14:20 INR 1.2 (0.9-1.2) 08/07/17 14:20 APTT 39.1 Seconds (25.6-37.1) H 07/22/17 05:20 - Constitutional Appears: Non-toxic, No Acute Distress, Other (slightly confused) - Respiratory Exam Respiratory Exam: Clear to Ausculation Bilateral, NORMAL BREATHING PATTERN - Cardiovascular Exam Cardiovascular Exam: REGULAR RHYTHM, +S1, +S2 - GI/Abdominal Exam GI & Abdominal Exam: Soft, Tenderness. absent: Distended, Firm, Guarding, Rigid , Rebound Additional comments: fistula output -300cc of stool - Extremities Exam Extremities Exam: absent: Pedal Edema, Tenderness - Back Exam Additional comments: right posterior drain in place - Neurological Exam Neurological Exam: Alert, Awake - Skin Skin Exam: Dry, Intact, Normal Color, Warm Assessment and Plan - Assessment and Plan (Free Text) Assessment: 72M s/p ex-lap for perforated viscous with Small bowel resection with anastomosis POD#40, with post-op leak and colocutaneous fistula, s/p IR drainage - Continue TPN, same order - Monitor fistula output - Strict I's & O's - Pain control - Frequent repositioning - OOB to chair/Encourage ambulation/Incentive Spirometer - PT/OT - Patient needs PICC line re-inserted - plan for IR - Order placed - Further recs as per Dr. Zaynab Miller, PGY2
[2017-08-17] MEDS: Pantoprazole 40 mg EC Tab PO SCH (09:06)
[2017-08-17] MEDS: Lidocaine 5% Patch TD SCH (09:07)
[2017-08-17] MEDS: Ferrous Sulfate 300 mg/5 mL Liq UD PO SCH ×2 (09:08→16:15)
[2017-08-17] MEDS: Epoetin Alfa 20000 UNIT/ML Inj SC SCH (09:24)
--- NOTE | 2017-08-17 09:46 | CP.PCM.PN ---
Subjective - Date & Time of Evaluation Date of Evaluation: 08/17/17 Time of Evaluation: 09:30 - Subjective Subjective: Patient seen and examined this morning at bedside. Patient NAD; however still confused. Patient is POD39. Patient on pulmonary sport bed. Patient on TPN and tolerated low residual diet. Objective - Vital Signs/Intake and Output Vital Signs (last 24 hours): Temp Pulse Resp BP Pulse Ox 98.5 F 64 18 95/62 L 96 08/17/17 08:36 08/17/17 08:36 08/17/17 08:36 08/17/17 08:36 08/17/17 08:36 Intake and Output: 08/17/17 08/17/17 06:59 18:59 Intake Total 980 Output Total 1700 Balance -720 - Medications Medications: Current Medications Acetaminophen (Tylenol 325mg Tab) 650 mg PO Q4 PRN PRN Reason: Pain, moderate (4-7) Last Admin: 08/12/17 18:42 Dose: 650 mg Bisacodyl (Dulcolax) 10 mg [place] DAILY PRN PRN Reason: Constipation Last Admin: 08/07/17 14:18 Dose: 10 mg Cyanocobalamin (Vitamin B12 1000 Mcg Tab) 1,000 mcg PO DAILY [facility] Last Admin: 08/17/17 09:06 Dose: 1,000 mcg Cyclobenzaprine HCl (Flexeril) 10 mg PO Q12 [facility] Last Admin: 08/17/17 09:06 Dose: 10 mg Epoetin Karolyn (Procrit) 20,000 unit SC MWF [facility] Last Admin: 08/17/17 09:24 Dose: Not Given Ferrous Sulfate (Feosol Liq) 300 mg PO BID [facility] Last Admin: 08/17/17 09:08 Dose: 300 mg Fluconazole (Diflucan) 100 mg PO DAILY [facility] Last Admin: 08/17/17 09:07 Dose: 100 mg Guaifenesin/Dextromethorphan (Robitussin Dm) 10 ml PO Q6 PRN PRN Reason: Cough Last Admin: 08/07/17 08:34 Dose: 10 ml Heparin Sodium (Porcine) (Heparin) 5,000 units SC Q8 [facility] PRN Reason: Protocol Last Admin: 08/17/17 09:07 Dose: 5,000 units Piperacillin Sod/Tazobactam (Sod 3.375 gm/ Sodium Chloride) 100 mls @ 100 mls/ hr IVPB Q8@0100,0900,1700 [facility] PRN Reason: Protocol Last Admin: 08/17/17 09:08 Dose: 100 mls/hr Chromium/Copper/Manganese/Zinc 3 ml/ Multivitamins/Vitamin C 10 ml/ Amino Acids/ Electrolytes/Dextrose 1,013 mls @ 55 mls/hr IV .[id number] ONE Stop: 08/17/19 18:25 Insulin Human Lispro (Humalog) 0 units SC ACHS [facility] PRN Reason: Protocol Lamivudine (Epivir) 150 mg PO DAILY [facility] PRN Reason: Protocol Last Admin: 08/17/17 09:07 Dose: 150 mg Lidocaine (Lidoderm) 1 ea TD DAILY [facility] Last Admin: 08/17/17 09:07 Dose: 1 ea Lorazepam (Ativan) 0.5 mg IVP Q6 PRN PRN Reason: Agitation Last Admin: 08/16/17 12:58 Dose: 0.5 mg Pantoprazole Sodium (Protonix Ec Tab) 40 mg PO DAILY [facility] Last Admin: 08/17/17 09:06 Dose: 40 mg - Labs Labs: 08/16/17 07:37 08/16/17 07:37 PT 13.2 Seconds (9.8-13.1) H 08/07/17 14:20 INR 1.2 (0.9-1.2) 08/07/17 14:20 APTT 39.1 Seconds (25.6-37.1) H 07/22/17 05:20 - Constitutional Appears: Non-toxic, No Acute Distress, Confused - Head Exam Head Exam: ATRAUMATIC, NORMAL INSPECTION, NORMOCEPHALIC - Eye Exam Eye Exam: Normal appearance - ENT Exam ENT Exam: Mucous Membranes Dry - Neck Exam Neck Exam: Full ROM. absent: Tenderness - Respiratory Exam Respiratory Exam: Clear to Ausculation Bilateral. absent: Decreased Breath Sounds, Rales, Rhonchi, Wheezes, Respiratory Distress - Cardiovascular Exam Cardiovascular Exam: REGULAR RHYTHM. absent: Tachycardia - GI/Abdominal Exam GI & Abdominal Exam: Soft, Tenderness. absent: Distended Additional comments: colostomy bag with stool output on midline wound, had output of 300cc - Extremities Exam Extremities Exam: absent: Calf Tenderness, Pedal Edema, Tenderness - Neurological Exam Neurological Exam: Alert, Awake - Skin Skin Exam: Dry, Intact, Normal Color, Warm Assessment and Plan (1) Abdominal pain Status: Acute (2) Abscess Status: Acute (3) Atrial fibrillation Status: Acute (4) COPD (chronic obstructive pulmonary disease) Status: Acute (5) Essential (primary) hypertension Status: Acute (6) Hx of atrial fibrillation, no current medication Status: Acute (7) Intestinal perforation Status: Acute (8) Perforated abdominal viscus Status: Acute (9) Thrombocytopenia Status: Acute (10) Anemia Status: Acute - Assessment and Plan (Free Text) Plan: c/w present management. s/p ex-lap for perforated viscous with Small bowel resection with anastomosis, with post-op leak and EC fistula; POD 38 Surgery recommendations appreciated heme/onc recommendations appreciated pain management recommendations appreciated infectious disease recommendations appreciated neurology recommendations appreciated; acute delirium, no indication of stroke leukopenia and anemia abdomen obstructive series XR: no bowel obstruction, probable small bilateral pleural effusion, no infiltrate, right apical opacity, possible neoplasm CT head: no intracranial mass, hemorrhage, or infarct CT chest: emphysematous change, moderate bilateral pleural effusion, stable cavitary lesion in right lung apex w/ extensive fibrotic scar and traction bronchiectasis, doubt neoplasm, possible old granulomatous disease, chronic pancreatitis w/ dilated pancreatic duct diflucan 100 mg PO daily day 13 zosyn 3.375 mg IV Q8h day 9 c/w lamivudine 150 mg PO daily c/w low residual diet as tolerated starting PPN pending PICC re-insertion to restart TPN pain management: tylenol 650 mg PO Q4h, ultram 50 mg PO Q6h prn, flexeril 10 mg PO Q12h c/w epoetin karolyn c/w pulmonary sport bed f/u re-insertion of PICC line DVT PPX: heparin 5000 SC Q8h monitor for acute changes
--- NOTE | 2017-08-17 11:44 | CP.PCM.PN ---
Subjective - Date & Time of Evaluation Date of Evaluation: 08/17/17 Time of Evaluation: 11:41 - Subjective Subjective: Mr. Charles was seen and examined at the bedside. He is alert, oriented. He denies any headache, dizziness, lightheadedness, nausea, or vomiting. He claims of inability to sleep which causes him to be either sleepy or confused in the morning. He further claims of experiencing pain all the time in the abdominal area. He is currently receiving pain medications.He is able to follow commands. There was no untoward events overnight. Objective - Vital Signs/Intake and Output Vital Signs (last 24 hours): Temp Pulse Resp BP Pulse Ox 98.5 F 64 18 95/62 L 96 08/17/17 08:36 08/17/17 08:36 08/17/17 08:36 08/17/17 08:36 08/17/17 08:36 Intake and Output: 08/17/17 08/17/17 06:59 18:59 Intake Total 980 Output Total 1700 Balance -720 - Medications Medications: Current Medications Acetaminophen (Tylenol 325mg Tab) 650 mg PO Q4 PRN PRN Reason: Pain, moderate (4-7) Last Admin: 08/12/17 18:42 Dose: 650 mg Bisacodyl (Dulcolax) 10 mg [place] DAILY PRN PRN Reason: Constipation Last Admin: 08/07/17 14:18 Dose: 10 mg Cyanocobalamin (Vitamin B12 1000 Mcg Tab) 1,000 mcg PO DAILY [facility] Last Admin: 08/17/17 09:06 Dose: 1,000 mcg Cyclobenzaprine HCl (Flexeril) 10 mg PO Q12 [facility] Last Admin: 08/17/17 09:06 Dose: 10 mg Epoetin Mata (Procrit) 20,000 unit SC MWF [facility] Last Admin: 08/17/17 09:24 Dose: Not Given Ferrous Sulfate (Feosol Liq) 300 mg PO BID [facility] Last Admin: 08/17/17 09:08 Dose: 300 mg Fluconazole (Diflucan) 100 mg PO DAILY [facility] Last Admin: 08/17/17 09:07 Dose: 100 mg Guaifenesin/Dextromethorphan (Robitussin Dm) 10 ml PO Q6 PRN PRN Reason: Cough Last Admin: 08/07/17 08:34 Dose: 10 ml Heparin Sodium (Porcine) (Heparin) 5,000 units SC Q8 [facility] PRN Reason: Protocol Last Admin: 08/17/17 09:07 Dose: 5,000 units Piperacillin Sod/Tazobactam (Sod 3.375 gm/ Sodium Chloride) 100 mls @ 100 mls/ hr IVPB Q8@0100,0900,1700 [facility] PRN Reason: Protocol Last Admin: 08/17/17 09:08 Dose: 100 mls/hr Chromium/Copper/Manganese/Zinc 3 ml/ Multivitamins/Vitamin C 10 ml/ Amino Acids/ Electrolytes/Dextrose 1,013 mls @ 55 mls/hr IV .[id number] ONE Stop: 08/17/19 18:25 Insulin Human Lispro (Humalog) 0 units SC ACHS [facility] PRN Reason: Protocol Lamivudine (Epivir) 150 mg PO DAILY [facility] PRN Reason: Protocol Last Admin: 08/17/17 09:07 Dose: 150 mg Lidocaine (Lidoderm) 1 ea TD DAILY [facility] Last Admin: 08/17/17 09:07 Dose: 1 ea Lorazepam (Ativan) 0.5 mg IVP Q6 PRN PRN Reason: Agitation Last Admin: 08/16/17 12:58 Dose: 0.5 mg Pantoprazole Sodium (Protonix Ec Tab) 40 mg PO DAILY [facility] Last Admin: 08/17/17 09:06 Dose: 40 mg - Labs Labs: 08/16/17 07:37 08/16/17 07:37 PT 13.2 Seconds (9.8-13.1) H 08/07/17 14:20 INR 1.2 (0.9-1.2) 08/07/17 14:20 APTT 39.1 Seconds (25.6-37.1) H 07/22/17 05:20 - Constitutional Appears: No Acute Distress - Head Exam Head Exam: NORMAL INSPECTION - Neurological Exam Neurological Exam: Alert, Awake, Oriented x3 Neuro motor strength exam: Left Upper Extremity: 4, Right Upper Extremity: 4, Left Lower Extremity: 2/1, Right Lower Extremity: 2/1 Additional comments: he is alert, oriented, able to follow commands Assessment and Plan (1) Altered mental status Assessment & Plan: Case discussed with Dr. Cabrera, continue all current medical regimen. Limit pain medications that contains narcotic to alleviate some confusion. Recommend Melatonin 3 mg Po HS. Status: Acute
--- NOTE | 2017-08-17 12:38 | CP.PCM.PN ---
Subjective - Date & Time of Evaluation Date of Evaluation: 08/17/17 Time of Evaluation: 11:45 - Subjective Subjective: Has some abdominal pain. Objective - Vital Signs/Intake and Output Vital Signs (last 24 hours): Temp Pulse Resp BP Pulse Ox 98.5 F 64 18 95/62 L 96 08/17/17 08:36 08/17/17 08:36 08/17/17 08:36 08/17/17 08:36 08/17/17 08:36 Intake and Output: 08/17/17 08/17/17 06:59 18:59 Intake Total 980 Output Total 1700 Balance -720 - Medications Medications: Current Medications Acetaminophen (Tylenol 325mg Tab) 650 mg PO Q4 PRN PRN Reason: Pain, moderate (4-7) Last Admin: 08/12/17 18:42 Dose: 650 mg Bisacodyl (Dulcolax) 10 mg [place] DAILY PRN PRN Reason: Constipation Last Admin: 08/07/17 14:18 Dose: 10 mg Cyanocobalamin (Vitamin B12 1000 Mcg Tab) 1,000 mcg PO DAILY [facility] Last Admin: 08/17/17 09:06 Dose: 1,000 mcg Cyclobenzaprine HCl (Flexeril) 10 mg PO Q12 [facility] Last Admin: 08/17/17 09:06 Dose: 10 mg Epoetin Mata (Procrit) 20,000 unit SC MWF [facility] Last Admin: 08/17/17 09:24 Dose: Not Given Ferrous Sulfate (Feosol Liq) 300 mg PO BID [facility] Last Admin: 08/17/17 09:08 Dose: 300 mg Fluconazole (Diflucan) 100 mg PO DAILY [facility] Last Admin: 08/17/17 09:07 Dose: 100 mg Guaifenesin/Dextromethorphan (Robitussin Dm) 10 ml PO Q6 PRN PRN Reason: Cough Last Admin: 08/07/17 08:34 Dose: 10 ml Heparin Sodium (Porcine) (Heparin) 5,000 units SC Q8 [facility] PRN Reason: Protocol Last Admin: 08/17/17 09:07 Dose: 5,000 units Piperacillin Sod/Tazobactam (Sod 3.375 gm/ Sodium Chloride) 100 mls @ 100 mls/ hr IVPB Q8@0100,0900,1700 [facility] PRN Reason: Protocol Last Admin: 08/17/17 09:08 Dose: 100 mls/hr Chromium/Copper/Manganese/Zinc 3 ml/ Multivitamins/Vitamin C 10 ml/ Amino Acids/ Electrolytes/Dextrose 1,013 mls @ 55 mls/hr IV .[id number] ONE Stop: 08/17/19 18:25 Insulin Human Lispro (Humalog) 0 units SC ACHS [facility] PRN Reason: Protocol Lamivudine (Epivir) 150 mg PO DAILY [facility] PRN Reason: Protocol Last Admin: 08/17/17 09:07 Dose: 150 mg Lidocaine (Lidoderm) 1 ea TD DAILY [facility] Last Admin: 08/17/17 09:07 Dose: 1 ea Lorazepam (Ativan) 0.5 mg IVP Q6 PRN PRN Reason: Agitation Last Admin: 08/16/17 12:58 Dose: 0.5 mg Pantoprazole Sodium (Protonix Ec Tab) 40 mg PO DAILY [facility] Last Admin: 08/17/17 09:06 Dose: 40 mg - Labs Labs: 08/16/17 07:37 08/16/17 07:37 PT 13.2 Seconds (9.8-13.1) H 08/07/17 14:20 INR 1.2 (0.9-1.2) 08/07/17 14:20 APTT 39.1 Seconds (25.6-37.1) H 07/22/17 05:20 - Head Exam Head Exam: ATRAUMATIC - Eye Exam Eye Exam: Normal appearance - ENT Exam ENT Exam: Mucous Membranes Dry - Respiratory Exam Respiratory Exam: NORMAL BREATHING PATTERN - Cardiovascular Exam Cardiovascular Exam: +S1, +S2 - GI/Abdominal Exam GI & Abdominal Exam: Normal Bowel Sounds Assessment and Plan (1) Pancytopenia Assessment & Plan: mild leukopenia anemia of chronic disease on procrit; goal Hgb ~ 10 s/p transfusion support plt count stabilized Status: Acute
[2017-08-17] MEDS ORDERED: Lidocaine Hydrochloride 1% 10 ML ONE (12:40)
--- NOTE | 2017-08-17 12:57 | PCM.SURG1 ---
Surgeon's Initial Post Op Note - Surgeon's Notes Surgeon: Antione Bishop MD [employer] Studies Professor: NONE Type of Anesthesia: Local Pre-Operative Diagnosis: Malnutrition Operative Findings: US showed patent right basilic vein Post-Operative Diagnosis: Malnutrition Operation Performed: Dual lumen picc, 39 cm, placed via the right basilic vein. Tip of picc is in the SVC. Specimen/Specimens Removed: NONE Estimated Blood Loss: EBL {In ML}: 2 Blood Products Given: N/A Drains Used: No Drains Post-Op Condition: Fair Date of Surgery/Procedure: 08/17/17 Time of Surgery/Procedure: 12:55
--- NOTE | 2017-08-17 13:43 | VASCULAR ---
PROCEDURE: Date of procedure: 08/17/2017 Procedure: 1. Placement of a right arm PICC with ultrasound and fluoroscopic guidance, CPT 94114 2. PICC tip confirmation with spot radiograph and is in the superior vena cava Medications: 1 percent lidocaine Total Fluoro time: 5.4 seconds Radiation: 0.44 MGy EBL: 2 cc HISTORY: Malnutrition requiring access for TPN TECHNIQUE: Following informed consent and procedure time-out, the patient was placed supine on the interventional table and the right arm prepped and draped in the usual sterile fashion. Ultrasound showed a patent and compressible right basilic vein. After the skin was anesthetized with lidocaine, the basilic vein was accessed with micro micropuncture technique using ultrasound guidance. A guidewire was then advanced under fluoroscopic guidance into the superior vena cava. An image documenting ultrasound guidance for vascular access was permanently saved. The length of the dual-lumen 5 Swiss PICC was trimmed to 39 centimeters and advanced through a peel-away sheath. The PICC was position with tip of PICC confirm a spot radiograph the superior vena cava. The PICC was secured to the patient's skin. The PICC was flushed. A biopatch and sterile dressing was applied. IMPRESSION: Placement of a dual-lumen 5 Swiss PICC trimmed to 39 centimeters via right basilic vein. The tip of the PICC is confirmed with spot radiograph and is in the superior vena cava.
[2017-08-17] MEDS ORDERED: SODIUM CHLORIDE IV ONE (15:00)
[2017-08-17] MEDS ORDERED: POTASSIUM PHOSPHATE IV ONE (15:00)
[2017-08-17] MEDS ORDERED: POTASSIUM ACETATE IV ONE (15:00)
[2017-08-17] MEDS ORDERED: [UNRECOGNIZED DRUG - OTHER] IV ONE (15:00)
[2017-08-17 15:30] LABS: HEMOGLOBIN 12.5 g/dL (12.0-18.0); MEAN CELL VOLUME 97.1 fl (80.0-94.0); MEAN CORPUSCULAR HEMOGLOBIN 32.2 pg (27.0-31.0); MEAN CORPUSCULAR HGB CONC 33.1 g/dL (33.0-37.0); RBC 3.87 Mil/uL (4.40-5.90); RED CELL DISTRIBUTION WIDTH 19.4 % (11.5-14.5); WHITE BLOOD COUNT 3.6 K/uL (4.8-10.8)
[2017-08-17 15:58] LABS: ALB/GLOB RATIO 0.6 (1.0-2.1); ALBUMIN 1.9 g/dL (3.5-5.0); ALT/SGPT 31 U/L (21-72); AST/SGOT 16 U/L (17-59); BLOOD UREA NITROGEN 10 mg/dl (9-20); CALCIUM 7.4 mg/dL (8.4-10.2); GFR AFRICAN-AMERICAN > 60; GFR NON-AFRICAN AMERICAN > 60
[2017-08-17] MEDS: guaiFENesin DM 200 mg-20 mg/10 ml UD PO PRN (16:06)
[2017-08-17] MEDS: MELATONIN PO SCH (22:35)
[2017-08-18] MEDS: Piperacillin/Tazobact 3.375 GM in Sodium Chloride 0.9% 100 ML IVPB SCH ×3 (01:25→17:00)
--- NOTE | 2017-08-18 08:05 | CP.PCM.PN ---
Subjective - Date & Time of Evaluation Date of Evaluation: 08/18/17 Time of Evaluation: 08:02 - Subjective Subjective: Surgery Patient seen and examined. No acute events. pt got PICC line reinserted. Receiving TPN via PICC. fluid collection in the stoma bag. Pain controlled. Objective - Vital Signs/Intake and Output Vital Signs (last 24 hours): Temp Pulse Resp BP Pulse Ox 97.7 F 74 19 99/61 L 96 08/18/17 01:00 08/18/17 01:00 08/18/17 01:00 08/18/17 01:00 08/18/17 01:00 Intake and Output: 08/18/17 08/18/17 06:59 18:59 Intake Total 860 Output Total 1500 Balance -640 - Medications Medications: Current Medications Acetaminophen (Tylenol 325mg Tab) 650 mg PO Q4 PRN PRN Reason: Pain, moderate (4-7) Last Admin: 08/18/17 04:26 Dose: 650 mg Bisacodyl (Dulcolax) 10 mg [place] DAILY PRN PRN Reason: Constipation Last Admin: 08/07/17 14:18 Dose: 10 mg Cyanocobalamin (Vitamin B12 1000 Mcg Tab) 1,000 mcg PO DAILY [facility] Last Admin: 08/17/17 09:06 Dose: 1,000 mcg Cyclobenzaprine HCl (Flexeril) 10 mg PO Q12 [facility] Last Admin: 08/17/17 21:13 Dose: 10 mg Ferrous Sulfate (Feosol Liq) 300 mg PO BID [facility] Last Admin: 08/17/17 16:15 Dose: 300 mg Fluconazole (Diflucan) 100 mg PO DAILY [facility] Last Admin: 08/17/17 09:07 Dose: 100 mg Guaifenesin/Dextromethorphan (Robitussin Dm) 10 ml PO Q6 PRN PRN Reason: Cough Last Admin: 08/17/17 16:06 Dose: 10 ml Heparin Sodium (Porcine) (Heparin) 5,000 units SC Q8 [facility] PRN Reason: Protocol Last Admin: 08/18/17 01:27 Dose: 5,000 units Home Med (Patient's Own Medication) 1 unit PO HS [facility] Last Admin: 08/17/17 22:35 Dose: 1 unit Piperacillin Sod/Tazobactam (Sod 3.375 gm/ Sodium Chloride) 100 mls @ 100 mls/ hr IVPB Q8@0100,0900,1700 [facility] PRN Reason: Protocol Last Admin: 08/18/17 01:25 Dose: 100 mls/hr Sodium Chloride 35 meq/Potassium Phosphate 15 mmole/Potassium Acetate 20 meq/ Magnesium Sulfate 5 meq/Calcium Gluconate 4.5 meq/Multivitamins/Vitamin C 10 ml/ Chromium/Copper/Manganese/Zinc 3 ml/ Amino Acids 1,047.6589 mls @ 55 mls/hr IV .[id number] ONE Stop: 08/18/17 10:02 Last Admin: 08/17/17 15:38 Dose: 55 mls/hr Insulin Human Lispro (Humalog) 0 units SC ACHS [facility] PRN Reason: Protocol Last Admin: 08/17/17 21:44 Dose: Not Given Lamivudine (Epivir) 150 mg PO DAILY [facility] PRN Reason: Protocol Last Admin: 08/17/17 09:07 Dose: 150 mg Lidocaine (Lidoderm) 1 ea TD DAILY [facility] Last Admin: 08/17/17 09:07 Dose: 1 ea Lorazepam (Ativan) 0.5 mg IVP Q6 PRN PRN Reason: Agitation Last Admin: 08/16/17 12:58 Dose: 0.5 mg Pantoprazole Sodium (Protonix Ec Tab) 40 mg PO DAILY [facility] Last Admin: 08/17/17 09:06 Dose: 40 mg - Labs Labs: 08/17/17 15:24 08/17/17 15:24 PT 13.2 Seconds (9.8-13.1) H 08/07/17 14:20 INR 1.2 (0.9-1.2) 08/07/17 14:20 APTT 39.1 Seconds (25.6-37.1) H 07/22/17 05:20 - Constitutional Appears: Non-toxic, Cachectic, Chronically Ill - Head Exam Head Exam: ATRAUMATIC, NORMAL INSPECTION, NORMOCEPHALIC - Eye Exam Eye Exam: EOMI, Normal appearance, PERRL Pupil Exam: NORMAL ACCOMODATION, PERRL - ENT Exam ENT Exam: Mucous Membranes Moist, Normal Exam - Neck Exam Neck Exam: Full ROM, Normal Inspection. absent: Lymphadenopathy - Respiratory Exam Respiratory Exam: Clear to Ausculation Bilateral, NORMAL BREATHING PATTERN - Cardiovascular Exam Cardiovascular Exam: REGULAR RHYTHM, +S1, +S2. absent: Murmur - GI/Abdominal Exam GI & Abdominal Exam: Soft, Tenderness, Normal Bowel Sounds. absent: Distended, Firm, Guarding, Mass, Pulsatile Mass, Rebound Additional comments: Long stoma bag in placed in midline: 30cc thin fluid . 30x5 cm incision. - Rectal Exam Rectal Exam: NORMAL INSPECTION - Exam Exam: NORMAL INSPECTION - Extremities Exam Extremities Exam: Full ROM, Normal Capillary Refill, Normal Inspection. absent : Joint Swelling, Pedal Edema - Back Exam Back Exam: NORMAL INSPECTION - Neurological Exam Neurological Exam: Alert, Awake, CN II-XII Intact, Oriented x3 - Psychiatric Exam Psychiatric exam: Normal Affect, Normal Mood - Skin Skin Exam: Dry, Erythema, Warm. absent: Intact, Normal Color Assessment and Plan - Assessment and Plan (Free Text) Assessment: 72M s/p ex-lap for perforated viscous with Small bowel resection with anastomosis POD#41, with post-op leak and colocutaneous fistula, s/p IR drainage - Continue TPN, same order - Monitor fistula output - Strict I's & O's - Pain control - Frequent repositioning - OOB to chair/Encourage ambulation/Incentive Spirometer - PT/OT - Patient has PICC line re-inserted WIll ROSIO Worthy
[2017-08-18] MEDS: Insulin Lispro (humaLOG) 100 Units/ml Inj SC SCH ×5 (08:26→22:00)
[2017-08-18] MEDS: Pantoprazole 40 mg EC Tab PO SCH (09:22)
[2017-08-18] MEDS: Ferrous Sulfate 300 mg/5 mL Liq UD PO SCH ×2 (09:23→16:51)
[2017-08-18] MEDS: Lidocaine 5% Patch TD SCH (09:27)
--- NOTE | 2017-08-18 12:14 | US ---
PROCEDURE: Bilateral lower extremity venous duplex Doppler. HISTORY: pain in R calf COMPARISON: Lower extremity ultrasound dated 07/22/2017. TECHNIQUE: Bilateral common femoral, superficial femoral, popliteal and posterior tibial veins were evaluated. Flow was assessed with color Doppler, compressibility, assessment of phasic flow and augmentation response. FINDINGS: COMMON FEMORAL VEIN: Right CFV: Unremarkable. Left CFV: Unremarkable. SUPERFICIAL FEMORAL VEIN: Right SFV: Unremarkable. Left SFV: Unremarkable. POPLITEAL VEIN: Right Popliteal: Unremarkable. Left Popliteal: Unremarkable. POSTERIOR TIBIAL VEIN: Right PTV: Unremarkable. Left PTV: Unremarkable. 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 IMPRESSION: No evidence of deep venous thrombosis.
[2017-08-18] MEDS ORDERED: SODIUM CHLORIDE IV ONE (16:30)
[2017-08-18] MEDS ORDERED: [UNRECOGNIZED DRUG - OTHER] IV ONE (16:30)
[2017-08-18] MEDS ORDERED: POTASSIUM ACETATE IV ONE (16:30)
[2017-08-18] MEDS ORDERED: POTASSIUM PHOSPHATE IV ONE (16:30)
--- NOTE | 2017-08-18 18:49 | CP.PCM.PN ---
Subjective - Date & Time of Evaluation Date of Evaluation: 08/18/17 Time of Evaluation: 13:00 - Subjective Subjective: Has some abdominal pain. Objective - Vital Signs/Intake and Output Vital Signs (last 24 hours): Temp Pulse Resp BP Pulse Ox 97.6 F 67 20 98/62 L 99 08/18/17 16:24 08/18/17 16:24 08/18/17 16:24 08/18/17 16:24 08/18/17 16:24 Intake and Output: 08/18/17 08/18/17 06:59 18:59 Intake Total 860 Output Total 1500 Balance -640 - Medications Medications: Current Medications Acetaminophen (Tylenol 325mg Tab) 650 mg PO Q4 PRN PRN Reason: Pain, moderate (4-7) Last Admin: 08/18/17 16:50 Dose: 650 mg Bisacodyl (Dulcolax) 10 mg [place] DAILY PRN PRN Reason: Constipation Last Admin: 08/07/17 14:18 Dose: 10 mg Cyanocobalamin (Vitamin B12 1000 Mcg Tab) 1,000 mcg PO DAILY [facility] Last Admin: 08/18/17 09:22 Dose: 1,000 mcg Cyclobenzaprine HCl (Flexeril) 10 mg PO Q12 [facility] Last Admin: 08/18/17 09:22 Dose: 10 mg Fat Emulsion Intravenous (Intralipid 20%) 250 ml IV DAILY [facility] Last Admin: 08/18/17 16:57 Dose: 250 ml Ferrous Sulfate (Feosol Liq) 300 mg PO BID [facility] Last Admin: 08/18/17 16:51 Dose: 300 mg Fluconazole (Diflucan) 100 mg PO DAILY [facility] Last Admin: 08/18/17 09:22 Dose: 100 mg Guaifenesin/Dextromethorphan (Robitussin Dm) 10 ml PO Q6 PRN PRN Reason: Cough Last Admin: 08/17/17 16:06 Dose: 10 ml Heparin Sodium (Porcine) (Heparin) 5,000 units SC Q8 [facility] PRN Reason: Protocol Last Admin: 08/18/17 17:04 Dose: 5,000 units Home Med (Patient's Own Medication) 1 unit PO HS [facility] Last Admin: 08/17/17 22:35 Dose: 1 unit Piperacillin Sod/Tazobactam (Sod 3.375 gm/ Sodium Chloride) 100 mls @ 100 mls/ hr IVPB Q8@0100,0900,1700 [facility] PRN Reason: Protocol Last Admin: 08/18/17 17:00 Dose: 100 mls/hr Sodium Chloride 35 meq/Potassium Phosphate 15 mmole/Potassium Acetate 20 meq/ Magnesium Sulfate 5 meq/Calcium Gluconate 4.5 meq/Multivitamins/Vitamin C 10 ml/ Chromium/Copper/Manganese/Zinc 3 ml/ Amino Acids 1,047.6589 mls @ 55 mls/hr IV .Q19H3M ONE Stop: 08/19/17 11:32 Last Admin: 08/18/17 16:56 Dose: 55 mls/hr Insulin Human Lispro (Humalog) 0 units SC ACHS [facility] PRN Reason: Protocol Last Admin: 08/18/17 16:53 Dose: Not Given Lamivudine (Epivir) 150 mg PO DAILY [facility] PRN Reason: Protocol Last Admin: 08/18/17 09:21 Dose: 150 mg Lidocaine (Lidoderm) 1 ea TD DAILY [facility] Last Admin: 08/18/17 09:27 Dose: 1 ea Lorazepam (Ativan) 0.5 mg IVP Q6 PRN PRN Reason: Agitation Last Admin: 08/16/17 12:58 Dose: 0.5 mg Pantoprazole Sodium (Protonix Ec Tab) 40 mg PO DAILY [facility] Last Admin: 08/18/17 09:22 Dose: 40 mg - Labs Labs: 08/17/17 15:24 08/17/17 15:24 PT 13.2 Seconds (9.8-13.1) H 08/07/17 14:20 INR 1.2 (0.9-1.2) 08/07/17 14:20 APTT 39.1 Seconds (25.6-37.1) H 07/22/17 05:20 - Head Exam Head Exam: ATRAUMATIC - Eye Exam Eye Exam: Normal appearance - ENT Exam ENT Exam: Mucous Membranes Dry - Respiratory Exam Respiratory Exam: NORMAL BREATHING PATTERN - Cardiovascular Exam Cardiovascular Exam: +S1, +S2 - GI/Abdominal Exam GI & Abdominal Exam: Normal Bowel Sounds - Extremities Exam Extremities Exam: Normal Inspection Assessment and Plan (1) Pancytopenia Assessment & Plan: mild leukopenia anemia of chronic disease; was on Procrit, now stopped due to rise in H/H s/p transfusion support plt count stabilized Status: Acute
--- NOTE | 2017-08-18 21:00 | CP.PCM.PN ---
Subjective - Date & Time of Evaluation Date of Evaluation: 08/18/17 Time of Evaluation: 11:30 - Subjective Subjective: Patient remains stable Has some abd pain PICC line reinserted. Receiving TPN, Has no fever Latest labs are stable. Objective - Vital Signs/Intake and Output Vital Signs (last 24 hours): Temp Pulse Resp BP Pulse Ox 97.6 F 67 20 98/62 L 99 08/18/17 16:24 08/18/17 16:24 08/18/17 16:24 08/18/17 16:24 08/18/17 16:24 Intake and Output: 08/18/17 08/19/17 18:59 06:59 Intake Total 944 Output Total 1400 Balance -456 - Medications Medications: Current Medications Acetaminophen (Tylenol 325mg Tab) 650 mg PO Q4 PRN PRN Reason: Pain, moderate (4-7) Last Admin: 08/18/17 16:50 Dose: 650 mg Bisacodyl (Dulcolax) 10 mg [place] DAILY PRN PRN Reason: Constipation Last Admin: 08/07/17 14:18 Dose: 10 mg Cyanocobalamin (Vitamin B12 1000 Mcg Tab) 1,000 mcg PO DAILY [facility] Last Admin: 08/18/17 09:22 Dose: 1,000 mcg Cyclobenzaprine HCl (Flexeril) 10 mg PO Q12 [facility] Last Admin: 08/18/17 09:22 Dose: 10 mg Fat Emulsion Intravenous (Intralipid 20%) 250 ml IV DAILY [facility] Last Admin: 08/18/17 16:57 Dose: 250 ml Ferrous Sulfate (Feosol Liq) 300 mg PO BID [facility] Last Admin: 08/18/17 16:51 Dose: 300 mg Fluconazole (Diflucan) 100 mg PO DAILY [facility] Last Admin: 08/18/17 09:22 Dose: 100 mg Guaifenesin/Dextromethorphan (Robitussin Dm) 10 ml PO Q6 PRN PRN Reason: Cough Last Admin: 08/17/17 16:06 Dose: 10 ml Heparin Sodium (Porcine) (Heparin) 5,000 units SC Q8 [facility] PRN Reason: Protocol Last Admin: 08/18/17 17:04 Dose: 5,000 units Home Med (Patient's Own Medication) 1 unit PO HS [facility] Last Admin: 08/17/17 22:35 Dose: 1 unit Piperacillin Sod/Tazobactam (Sod 3.375 gm/ Sodium Chloride) 100 mls @ 100 mls/ hr IVPB Q8@0100,0900,1700 [facility] PRN Reason: Protocol Last Admin: 08/18/17 17:00 Dose: 100 mls/hr Sodium Chloride 35 meq/Potassium Phosphate 15 mmole/Potassium Acetate 20 meq/ Magnesium Sulfate 5 meq/Calcium Gluconate 4.5 meq/Multivitamins/Vitamin C 10 ml/ Chromium/Copper/Manganese/Zinc 3 ml/ Amino Acids 1,047.6589 mls @ 55 mls/hr IV .Q19H3M ONE Stop: 08/19/17 11:32 Last Admin: 08/18/17 16:56 Dose: 55 mls/hr Insulin Human Lispro (Humalog) 0 units SC ACHS [facility] PRN Reason: Protocol Last Admin: 08/18/17 16:53 Dose: Not Given Lamivudine (Epivir) 150 mg PO DAILY [facility] PRN Reason: Protocol Last Admin: 08/18/17 09:21 Dose: 150 mg Lidocaine (Lidoderm) 1 ea TD DAILY [facility] Last Admin: 08/18/17 09:27 Dose: 1 ea Lorazepam (Ativan) 0.5 mg IVP Q6 PRN PRN Reason: Agitation Last Admin: 08/16/17 12:58 Dose: 0.5 mg Pantoprazole Sodium (Protonix Ec Tab) 40 mg PO DAILY [facility] Last Admin: 08/18/17 09:22 Dose: 40 mg - Labs Labs: 08/17/17 15:24 08/17/17 15:24 PT 13.2 Seconds (9.8-13.1) H 08/07/17 14:20 INR 1.2 (0.9-1.2) 08/07/17 14:20 APTT 39.1 Seconds (25.6-37.1) H 07/22/17 05:20 - Head Exam Head Exam: NORMAL INSPECTION - Eye Exam Eye Exam: Normal appearance - ENT Exam ENT Exam: Mucous Membranes Moist - Respiratory Exam Respiratory Exam: Clear to Ausculation Bilateral - Cardiovascular Exam Cardiovascular Exam: REGULAR RHYTHM - GI/Abdominal Exam GI & Abdominal Exam: Normal Bowel Sounds - Neurological Exam Neurological Exam: Awake, Oriented x3 - Psychiatric Exam Psychiatric exam: Normal Mood Assessment and Plan (1) Abdominal pain Status: Acute (2) COPD (chronic obstructive pulmonary disease) Status: Acute (3) Essential (primary) hypertension Status: Acute (4) Hx of atrial fibrillation, no current medication Status: Acute (5) Intestinal perforation Status: Acute (6) Perforated abdominal viscus Status: Acute (7) Atrial fibrillation Status: Acute (8) Anemia Status: Acute (9) Thrombocytopenia Status: Acute (10) Abscess Status: Acute (11) Delirium Status: Acute - Assessment and Plan (Free Text) Plan: Cont meds Cont tx Cont PT Pain meds Cont Nutrition
[2017-08-18] MEDS: MELATONIN PO SCH (21:39)
[2017-08-19] MEDS: Piperacillin/Tazobact 3.375 GM in Sodium Chloride 0.9% 100 ML IVPB SCH ×3 (00:23→16:05)
[2017-08-19] MEDS: Insulin Lispro (humaLOG) 100 Units/ml Inj SC SCH ×3 (06:38→16:06)
--- NOTE | 2017-08-19 07:56 | CP.PCM.PN ---
Subjective - Date & Time of Evaluation Date of Evaluation: 08/19/17 Time of Evaluation: 07:00 - Subjective Subjective: General Surgery Note for Dr. Worthy Patient seen and examined at bedside. No acute event overnight. Patient states her has pain still. He is tolerating diet. Denies fever/chills or nausea/ vomiting. Patient continues to be slightly confused. 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 Objective - Vital Signs/Intake and Output Vital Signs (last 24 hours): Temp Pulse Resp BP Pulse Ox 98.0 F 101 H 20 96/66 L 100 08/19/17 00:11 08/19/17 00:11 08/19/17 00:11 08/19/17 00:11 08/19/17 00:11 Intake and Output: 08/19/17 08/19/17 06:59 18:59 Intake Total 944 Output Total 1400 Balance -456 - Medications Medications: Current Medications Acetaminophen (Tylenol 325mg Tab) 650 mg PO Q4 PRN PRN Reason: Pain, moderate (4-7) Last Admin: 08/19/17 06:20 Dose: 650 mg Bisacodyl (Dulcolax) 10 mg [place] DAILY PRN PRN Reason: Constipation Last Admin: 08/07/17 14:18 Dose: 10 mg Cyanocobalamin (Vitamin B12 1000 Mcg Tab) 1,000 mcg PO DAILY [facility] Last Admin: 08/18/17 09:22 Dose: 1,000 mcg Cyclobenzaprine HCl (Flexeril) 10 mg PO Q12 [facility] Last Admin: 08/18/17 21:39 Dose: 10 mg Fat Emulsion Intravenous (Intralipid 20%) 250 ml IV DAILY [facility] Last Admin: 08/18/17 16:57 Dose: 250 ml Ferrous Sulfate (Feosol Liq) 300 mg PO BID [facility] Last Admin: 08/18/17 16:51 Dose: 300 mg Fluconazole (Diflucan) 100 mg PO DAILY [facility] Last Admin: 08/18/17 09:22 Dose: 100 mg Guaifenesin/Dextromethorphan (Robitussin Dm) 10 ml PO Q6 PRN PRN Reason: Cough Last Admin: 08/17/17 16:06 Dose: 10 ml Heparin Sodium (Porcine) (Heparin) 5,000 units SC Q8 [facility] PRN Reason: Protocol Last Admin: 08/19/17 00:23 Dose: 5,000 units Home Med (Patient's Own Medication) 1 unit PO HS [facility] Last Admin: 08/18/17 21:39 Dose: 1 unit Piperacillin Sod/Tazobactam (Sod 3.375 gm/ Sodium Chloride) 100 mls @ 100 mls/ hr IVPB Q8@0100,0900,1700 [facility] PRN Reason: Protocol Last Admin: 08/19/17 00:23 Dose: 100 mls/hr Sodium Chloride 35 meq/Potassium Phosphate 15 mmole/Potassium Acetate 20 meq/ Magnesium Sulfate 5 meq/Calcium Gluconate 4.5 meq/Multivitamins/Vitamin C 10 ml/ Chromium/Copper/Manganese/Zinc 3 ml/ Amino Acids 1,047.6589 mls @ 55 mls/hr IV .Q19H3M ONE Stop: 08/19/17 11:32 Last Admin: 08/18/17 16:56 Dose: 55 mls/hr Insulin Human Lispro (Humalog) 0 units SC ACHS [facility] PRN Reason: Protocol Last Admin: 08/19/17 06:38 Dose: 1 units Lamivudine (Epivir) 150 mg PO DAILY [facility] PRN Reason: Protocol Last Admin: 08/18/17 09:21 Dose: 150 mg Lidocaine (Lidoderm) 1 ea TD DAILY [facility] Last Admin: 08/18/17 09:27 Dose: 1 ea Lorazepam (Ativan) 0.5 mg IVP Q6 PRN PRN Reason: Agitation Last Admin: 08/16/17 12:58 Dose: 0.5 mg Pantoprazole Sodium (Protonix Ec Tab) 40 mg PO DAILY [facility] Last Admin: 08/18/17 09:22 Dose: 40 mg - Labs Labs: 08/17/17 15:24 08/17/17 15:24 PT 13.2 Seconds (9.8-13.1) H 08/07/17 14:20 INR 1.2 (0.9-1.2) 08/07/17 14:20 APTT 39.1 Seconds (25.6-37.1) H 07/22/17 05:20 - Constitutional Appears: No Acute Distress - Head Exam Head Exam: NORMOCEPHALIC - Eye Exam Eye Exam: Normal appearance - ENT Exam ENT Exam: Mucous Membranes Moist - Respiratory Exam Respiratory Exam: NORMAL BREATHING PATTERN - Cardiovascular Exam Cardiovascular Exam: REGULAR RHYTHM - GI/Abdominal Exam GI & Abdominal Exam: Soft, Normal Bowel Sounds. 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 Zaynab Soares PGY1
[2017-08-19] MEDS: Ferrous Sulfate 300 mg/5 mL Liq UD PO SCH ×2 (08:58→16:06)
[2017-08-19] MEDS: Pantoprazole 40 mg EC Tab PO SCH (08:59)
[2017-08-19] MEDS: Lidocaine 5% Patch TD SCH (09:00)
[2017-08-19 09:28] LABS: BASO % 0.7 % (0.0-2.0); EOS # 0.2 K/uL (0.0-0.7); EOS % 4.5 % (0.0-4.0); HEMOGLOBIN 12.5 g/dL (12.0-18.0); LYMPH # 0.5 K/uL (1.0-4.3); LYMPH % 15.2 % (20.0-40.0); MEAN CELL VOLUME 99.3 fl (80.0-94.0); MEAN CORPUSCULAR HEMOGLOBIN 33.1 pg (27.0-31.0); MEAN CORPUSCULAR HGB CONC 33.4 g/dL (33.0-37.0); MONO # 0.4 K/uL (0.0-0.8); NEUT # 2.5 K/uL (1.8-7.0); NEUT % 69.6 % (50.0-75.0); NRBC % 0.1 % (0.0-0.0); RBC 3.78 Mil/uL (4.40-5.90); RED CELL DISTRIBUTION WIDTH 19.1 % (11.5-14.5); WHITE BLOOD COUNT 3.6 K/uL (4.8-10.8)
[2017-08-19 09:42] LABS: ALB/GLOB RATIO 0.6 (1.0-2.1); ALBUMIN 2.1 g/dL (3.5-5.0); ALT/SGPT 27 U/L (21-72); AST/SGOT 18 U/L (17-59); BLOOD UREA NITROGEN 16 mg/dl (9-20); CALCIUM 7.5 mg/dL (8.4-10.2); GFR AFRICAN-AMERICAN > 60; GFR NON-AFRICAN AMERICAN > 60
[2017-08-19] MEDS ORDERED: [UNRECOGNIZED DRUG - OTHER] IV ONE (12:15)
[2017-08-19] MEDS ORDERED: POTASSIUM ACETATE IV ONE (12:15)
[2017-08-19] MEDS ORDERED: POTASSIUM PHOSPHATE IV ONE (12:15)
[2017-08-19] MEDS ORDERED: SODIUM CHLORIDE IV ONE (12:15)
--- NOTE | 2017-08-19 12:48 | CP.PCM.PN ---
Subjective - Date & Time of Evaluation Date of Evaluation: 08/19/17 Time of Evaluation: 09:00 - Subjective Subjective: c/o pain denies fever Objective - Vital Signs/Intake and Output Vital Signs (last 24 hours): Temp Pulse Resp BP Pulse Ox 97.3 F L 102 H 20 105/75 98 08/19/17 08:10 08/19/17 08:10 08/19/17 08:10 08/19/17 08:10 08/19/17 08:10 Intake and Output: 08/19/17 08/19/17 06:59 18:59 Intake Total 944 Output Total 1400 Balance -456 - Medications Medications: Current Medications Acetaminophen (Tylenol 325mg Tab) 650 mg PO Q4 PRN PRN Reason: Pain, moderate (4-7) Last Admin: 08/19/17 11:09 Dose: 650 mg Bisacodyl (Dulcolax) 10 mg [place] DAILY PRN PRN Reason: Constipation Last Admin: 08/07/17 14:18 Dose: 10 mg Cyanocobalamin (Vitamin B12 1000 Mcg Tab) 1,000 mcg PO DAILY [facility] Last Admin: 08/19/17 08:59 Dose: 1,000 mcg Cyclobenzaprine HCl (Flexeril) 10 mg PO Q12 [facility] Last Admin: 08/19/17 08:59 Dose: 10 mg Fat Emulsion Intravenous (Intralipid 20%) 250 ml IV DAILY [facility] Last Admin: 08/19/17 11:48 Dose: 250 ml Ferrous Sulfate (Feosol Liq) 300 mg PO BID [facility] Last Admin: 08/19/17 08:58 Dose: 300 mg Fluconazole (Diflucan) 100 mg PO DAILY [facility] Last Admin: 08/19/17 11:09 Dose: 100 mg Guaifenesin/Dextromethorphan (Robitussin Dm) 10 ml PO Q6 PRN PRN Reason: Cough Last Admin: 08/17/17 16:06 Dose: 10 ml Heparin Sodium (Porcine) (Heparin) 5,000 units SC Q8 [facility] PRN Reason: Protocol Last Admin: 08/19/17 08:57 Dose: 5,000 units Home Med (Patient's Own Medication) 1 unit PO HS [facility] Last Admin: 08/18/17 21:39 Dose: 1 unit Piperacillin Sod/Tazobactam (Sod 3.375 gm/ Sodium Chloride) 100 mls @ 100 mls/ hr IVPB Q8@0100,0900,1700 [facility] PRN Reason: Protocol Last Admin: 08/19/17 08:57 Dose: 100 mls/hr Sodium Chloride 35 meq/Potassium Phosphate 15 mmole/Potassium Acetate 20 meq/ Magnesium Sulfate 5 meq/Calcium Gluconate 4.5 meq/Multivitamins/Vitamin C 10 ml/ Chromium/Copper/Manganese/Zinc 3 ml/ Amino Acids 1,047.6589 mls @ 55 mls/hr IV .Q19H3M ONE Stop: 08/20/17 07:17 Insulin Human Lispro (Humalog) 0 units SC ACHS [facility] PRN Reason: Protocol Last Admin: 08/19/17 11:48 Dose: 1 units Lamivudine (Epivir) 150 mg PO DAILY [facility] PRN Reason: Protocol Last Admin: 08/19/17 08:59 Dose: 150 mg Lidocaine (Lidoderm) 1 ea TD DAILY [facility] Last Admin: 08/19/17 09:00 Dose: 1 ea Lorazepam (Ativan) 0.5 mg IVP Q6 PRN PRN Reason: Agitation Last Admin: 08/16/17 12:58 Dose: 0.5 mg Pantoprazole Sodium (Protonix Ec Tab) 40 mg PO DAILY [facility] Last Admin: 08/19/17 08:59 Dose: 40 mg - Labs Labs: 08/19/17 09:10 08/19/17 09:10 PT 13.2 Seconds (9.8-13.1) H 08/07/17 14:20 INR 1.2 (0.9-1.2) 08/07/17 14:20 APTT 39.1 Seconds (25.6-37.1) H 07/22/17 05:20 - Constitutional Appears: Non-toxic, Cachectic - Head Exam Head Exam: NORMOCEPHALIC - Eye Exam Eye Exam: absent: Scleral icterus - ENT Exam ENT Exam: Mucous Membranes Dry - Neck Exam Neck Exam: absent: Lymphadenopathy - Respiratory Exam Respiratory Exam: Decreased Breath Sounds - Cardiovascular Exam Cardiovascular Exam: REGULAR RHYTHM - GI/Abdominal Exam GI & Abdominal Exam: Distended, Soft - Rectal Exam Rectal Exam: Deferred - Exam Exam: NORMAL INSPECTION - Extremities Exam Extremities Exam: absent: Tenderness - Back Exam Back Exam: absent: CVA tenderness (L), CVA tenderness (R) - Neurological Exam Neurological Exam: Alert, Awake, Oriented x3 Neuro motor strength exam: Left Upper Extremity: 3, Right Upper Extremity: 3, Left Lower Extremity: 3, Right Lower Extremity: 3 - Psychiatric Exam Psychiatric exam: Depressed - Skin Skin Exam: Dry Assessment and Plan (1) Abdominal pain Status: Acute (2) COPD (chronic obstructive pulmonary disease) Status: Acute (3) Essential (primary) hypertension Status: Acute (4) Hx of atrial fibrillation, no current medication Status: Acute (5) Intestinal perforation Status: Acute (6) Perforated abdominal viscus Status: Acute (7) Sepsis Status: Acute - Assessment and Plan (Free Text) Assessment: 72M s/p ex-lap for perforated viscous with Small bowel resection with anastomosis POD#42 , with post-op leak and colocutaneous fistula
[2017-08-19] MEDS: MELATONIN PO SCH (22:16)
--- NOTE | 2017-08-19 23:37 | CP.PCM.PN ---
Subjective - Date & Time of Evaluation Date of Evaluation: 08/19/17 Time of Evaluation: 13:30 - Subjective Subjective: Patient is awake and still with a lot of pain He tolerates solids but continues to have a lot of abdominal drainage Objective - Vital Signs/Intake and Output Vital Signs (last 24 hours): Temp Pulse Resp BP Pulse Ox 97.6 F 96 H 20 105/71 98 08/19/17 16:12 08/19/17 16:12 08/19/17 16:12 08/19/17 16:12 08/19/17 08:10 Intake and Output: 08/19/17 08/20/17 18:59 06:59 Output Total 1660 Balance -1660 - Medications Medications: Current Medications Acetaminophen (Tylenol 325mg Tab) 650 mg PO Q4 PRN PRN Reason: Pain, moderate (4-7) Last Admin: 08/19/17 15:32 Dose: 650 mg Bisacodyl (Dulcolax) 10 mg [place] DAILY PRN PRN Reason: Constipation Last Admin: 08/07/17 14:18 Dose: 10 mg Cyanocobalamin (Vitamin B12 1000 Mcg Tab) 1,000 mcg PO DAILY [facility] Last Admin: 08/19/17 08:59 Dose: 1,000 mcg Cyclobenzaprine HCl (Flexeril) 10 mg PO Q12 [facility] Last Admin: 08/19/17 22:16 Dose: 10 mg Fat Emulsion Intravenous (Intralipid 20%) 250 ml IV DAILY [facility] Last Admin: 08/19/17 11:48 Dose: 250 ml Ferrous Sulfate (Feosol Liq) 300 mg PO BID [facility] Last Admin: 08/19/17 16:06 Dose: 300 mg Fluconazole (Diflucan) 100 mg PO DAILY [facility] Last Admin: 08/19/17 11:09 Dose: 100 mg Guaifenesin/Dextromethorphan (Robitussin Dm) 10 ml PO Q6 PRN PRN Reason: Cough Last Admin: 08/17/17 16:06 Dose: 10 ml Home Med (Patient's Own Medication) 1 unit PO HS [facility] Last Admin: 08/19/17 22:16 Dose: 1 unit Piperacillin Sod/Tazobactam (Sod 3.375 gm/ Sodium Chloride) 100 mls @ 100 mls/ hr IVPB Q8@0100,0900,1700 [facility] PRN Reason: Protocol Last Admin: 08/19/17 16:05 Dose: 100 mls/hr Sodium Chloride 35 meq/Potassium Phosphate 15 mmole/Potassium Acetate 20 meq/ Magnesium Sulfate 5 meq/Calcium Gluconate 4.5 meq/Multivitamins/Vitamin C 10 ml/ Chromium/Copper/Manganese/Zinc 3 ml/ Amino Acids 1,047.6589 mls @ 55 mls/hr IV .Q19H3M ONE Stop: 08/20/17 07:17 Last Admin: 08/19/17 14:13 Dose: 55 mls/hr Insulin Human Lispro (Humalog) 0 units SC ACHS [facility] PRN Reason: Protocol Last Admin: 08/19/17 16:06 Dose: Not Given Lamivudine (Epivir) 150 mg PO DAILY [facility] PRN Reason: Protocol Last Admin: 08/19/17 08:59 Dose: 150 mg Lidocaine (Lidoderm) 1 ea TD DAILY [facility] Last Admin: 08/19/17 09:00 Dose: 1 ea Lorazepam (Ativan) 0.5 mg IVP Q6 PRN PRN Reason: Agitation Last Admin: 08/16/17 12:58 Dose: 0.5 mg Tramadol HCl (Ultram) 50 mg PO Q12 PRN PRN Reason: Pain, severe (8-10) - Labs Labs: 08/19/17 09:10 08/19/17 09:10 PT 13.2 Seconds (9.8-13.1) H 08/07/17 14:20 INR 1.2 (0.9-1.2) 08/07/17 14:20 APTT 39.1 Seconds (25.6-37.1) H 07/22/17 05:20 - Head Exam Head Exam: NORMAL INSPECTION - Eye Exam Eye Exam: Normal appearance - ENT Exam ENT Exam: Mucous Membranes Moist - Respiratory Exam Respiratory Exam: Clear to Ausculation Bilateral - Cardiovascular Exam Cardiovascular Exam: REGULAR RHYTHM - GI/Abdominal Exam GI & Abdominal Exam: Normal Bowel Sounds - Neurological Exam Neurological Exam: Awake, Oriented x3 - Psychiatric Exam Psychiatric exam: Normal Mood Assessment and Plan (1) Abdominal pain Status: Acute (2) COPD (chronic obstructive pulmonary disease) Status: Acute (3) Essential (primary) hypertension Status: Acute (4) Hx of atrial fibrillation, no current medication Status: Acute (5) Intestinal perforation Status: Acute (6) Perforated abdominal viscus Status: Acute (7) Atrial fibrillation Status: Acute (8) Anemia Status: Acute (9) Thrombocytopenia Status: Acute (10) Abscess Status: Acute (11) Delirium Status: Acute - Assessment and Plan (Free Text) Plan: Cont meds Cont tx Cont bed PT arrange for LTAC
[2017-08-20] MEDS: Piperacillin/Tazobact 3.375 GM in Sodium Chloride 0.9% 100 ML IVPB SCH ×3 (00:07→16:16)
[2017-08-20 08:03] LABS: ALB/GLOB RATIO 0.6 (1.0-2.1); ALBUMIN 2.1 g/dL (3.5-5.0); ALT/SGPT 24 U/L (21-72); AST/SGOT 27 U/L (17-59); BLOOD UREA NITROGEN 17 mg/dl (9-20); CALCIUM 7.4 mg/dL (8.4-10.2); GFR AFRICAN-AMERICAN > 60; GFR NON-AFRICAN AMERICAN > 60
[2017-08-20 08:17] LABS: BASO % 0.8 % (0.0-2.0); EOS # 0.2 K/uL (0.0-0.7); HEMOGLOBIN 12.6 g/dL (12.0-18.0); LYMPH # 0.5 K/uL (1.0-4.3); LYMPH % 20.2 % (20.0-40.0); MEAN CELL VOLUME 100.5 fl (80.0-94.0); MEAN CORPUSCULAR HEMOGLOBIN 33.1 pg (27.0-31.0); MEAN PLATELET VOLUME 8.4 fl (7.2-11.7); MONO # 0.3 K/uL (0.0-0.8); MONO % 10.4 % (0.0-10.0); NEUT # 1.7 K/uL (1.8-7.0); NEUT % 62.6 % (50.0-75.0); NRBC % 0.3 % (0.0-0.0); RBC 3.81 Mil/uL (4.40-5.90); RED CELL DISTRIBUTION WIDTH 19.7 % (11.5-14.5); WHITE BLOOD COUNT 2.7 K/uL (4.8-10.8)
[2017-08-20] MEDS: Insulin Lispro (humaLOG) 100 Units/ml Inj SC SCH ×5 (09:03→22:00)
[2017-08-20] MEDS: Lidocaine 5% Patch TD SCH (09:03)
[2017-08-20] MEDS: Ferrous Sulfate 300 mg/5 mL Liq UD PO SCH ×2 (09:04→16:16)
--- NOTE | 2017-08-20 09:18 | CP.PCM.PN ---
Subjective - Date & Time of Evaluation Date of Evaluation: 08/20/17 Time of Evaluation: 09:16 - Subjective Subjective: SURGERY NOTE FOR DR. ODOM 72M seen and examined at bedside. No acute events overnight. Tolerating diet. Objective - Vital Signs/Intake and Output Vital Signs (last 24 hours): Temp Pulse Resp BP Pulse Ox 97.8 F 96 H 20 99/75 L 98 08/20/17 08:29 08/20/17 08:29 08/20/17 08:29 08/20/17 08:29 08/20/17 08:29 Intake and Output: 08/20/17 08/20/17 06:59 18:59 Intake Total 710 Output Total 3160 Balance -2450 - Medications Medications: Current Medications Acetaminophen (Tylenol 325mg Tab) 650 mg PO Q4 PRN PRN Reason: Pain, moderate (4-7) Last Admin: 08/19/17 15:32 Dose: 650 mg Bisacodyl (Dulcolax) 10 mg [place] DAILY PRN PRN Reason: Constipation Last Admin: 08/07/17 14:18 Dose: 10 mg Cyanocobalamin (Vitamin B12 1000 Mcg Tab) 1,000 mcg PO DAILY [facility] Last Admin: 08/20/17 09:02 Dose: 1,000 mcg Cyclobenzaprine HCl (Flexeril) 10 mg PO Q12 [facility] Last Admin: 08/20/17 09:02 Dose: 10 mg Fat Emulsion Intravenous (Intralipid 20%) 250 ml IV DAILY [facility] Last Admin: 08/19/17 11:48 Dose: 250 ml Ferrous Sulfate (Feosol Liq) 300 mg PO BID [facility] Last Admin: 08/20/17 09:04 Dose: 300 mg Fluconazole (Diflucan) 100 mg PO DAILY [facility] Last Admin: 08/20/17 09:04 Dose: 100 mg Guaifenesin/Dextromethorphan (Robitussin Dm) 10 ml PO Q6 PRN PRN Reason: Cough Last Admin: 08/17/17 16:06 Dose: 10 ml Home Med (Patient's Own Medication) 1 unit PO HS [facility] Last Admin: 08/19/17 22:16 Dose: 1 unit Piperacillin Sod/Tazobactam (Sod 3.375 gm/ Sodium Chloride) 100 mls @ 100 mls/ hr IVPB Q8@0100,0900,1700 [facility] PRN Reason: Protocol Last Admin: 08/20/17 09:02 Dose: 100 mls/hr Insulin Human Lispro (Humalog) 0 units SC ACHS [facility] PRN Reason: Protocol Last Admin: 08/20/17 09:03 Dose: 1 units Lamivudine (Epivir) 150 mg PO DAILY [facility] PRN Reason: Protocol Last Admin: 08/20/17 09:04 Dose: 150 mg Lidocaine (Lidoderm) 1 ea TD DAILY [facility] Last Admin: 08/20/17 09:03 Dose: 1 ea Lorazepam (Ativan) 0.5 mg IVP Q6 PRN PRN Reason: Agitation Last Admin: 08/16/17 12:58 Dose: 0.5 mg Tramadol HCl (Ultram) 50 mg PO Q12 PRN PRN Reason: Pain, severe (8-10) - Labs Labs: 08/20/17 05:35 08/20/17 05:35 PT 13.2 Seconds (9.8-13.1) H 08/07/17 14:20 INR 1.2 (0.9-1.2) 08/07/17 14:20 APTT 39.1 Seconds (25.6-37.1) H 07/22/17 05:20 - Constitutional Appears: Non-toxic, No Acute Distress - Respiratory Exam Respiratory Exam: Clear to Ausculation Bilateral, NORMAL BREATHING PATTERN - Cardiovascular Exam Cardiovascular Exam: REGULAR RHYTHM, +S1, +S2 - GI/Abdominal Exam GI & Abdominal Exam: Soft. absent: Distended, Firm, Guarding, Rigid, Tenderness , Rebound Additional comments: fistula output continues to be high - Neurological Exam Neurological Exam: Alert, Awake - Skin Skin Exam: Dry, Intact, Normal Color, Warm Assessment and Plan - Assessment and Plan (Free Text) Assessment: 72M s/p ex-lap for perforated viscous with Small bowel resection with anastomosis POD#44, with post-op leak and colocutaneous fistula, s/p IR drainage , PICC line re-insertion POD#2 - Low residual diet - WEAN TPN - Monitor fistula output - Strict I's & O's - Pain control - Frequent repositioning - OOB to chair/Encourage Ambulation/Incentive Spirometer - PT/OT - Further recommendations as per Dr. Zaynab Miller, PGY2
--- NOTE | 2017-08-20 11:01 | CP.PCM.PN ---
Subjective - Date & Time of Evaluation Date of Evaluation: 08/20/17 Time of Evaluation: 10:58 - Subjective Subjective: Ms. Charles was seen and examined at the bedside. He is alert, oriented in all spheres. He claims of inability to sleep. He further claims that his mind is more alert, clear these days in comparison from previous days. He is able to follow simple commands. He remains on 1:1 sitter for patient safety. He has episode of agitation and confusion. Objective - Vital Signs/Intake and Output Vital Signs (last 24 hours): Temp Pulse Resp BP Pulse Ox 97.8 F 96 H 20 99/75 L 98 08/20/17 08:29 08/20/17 08:29 08/20/17 08:29 08/20/17 08:29 08/20/17 08:29 Intake and Output: 08/20/17 08/20/17 06:59 18:59 Intake Total 710 Output Total 3160 Balance -2450 - Medications Medications: Current Medications Acetaminophen (Tylenol 325mg Tab) 650 mg PO Q4 PRN PRN Reason: Pain, moderate (4-7) Last Admin: 08/19/17 15:32 Dose: 650 mg Bisacodyl (Dulcolax) 10 mg [place] DAILY PRN PRN Reason: Constipation Last Admin: 08/07/17 14:18 Dose: 10 mg Cyanocobalamin (Vitamin B12 1000 Mcg Tab) 1,000 mcg PO DAILY [facility] Last Admin: 08/20/17 09:02 Dose: 1,000 mcg Cyclobenzaprine HCl (Flexeril) 10 mg PO Q12 [facility] Last Admin: 08/20/17 09:02 Dose: 10 mg Fat Emulsion Intravenous (Intralipid 20%) 250 ml IV DAILY [facility] Last Admin: 08/19/17 11:48 Dose: 250 ml Ferrous Sulfate (Feosol Liq) 300 mg PO BID [facility] Last Admin: 08/20/17 09:04 Dose: 300 mg Fluconazole (Diflucan) 100 mg PO DAILY [facility] Last Admin: 08/20/17 09:04 Dose: 100 mg Guaifenesin/Dextromethorphan (Robitussin Dm) 10 ml PO Q6 PRN PRN Reason: Cough Last Admin: 08/17/17 16:06 Dose: 10 ml Home Med (Patient's Own Medication) 1 unit PO HS [facility] Last Admin: 08/19/17 22:16 Dose: 1 unit Piperacillin Sod/Tazobactam (Sod 3.375 gm/ Sodium Chloride) 100 mls @ 100 mls/ hr IVPB Q8@0100,0900,1700 [facility] PRN Reason: Protocol Last Admin: 08/20/17 09:02 Dose: 100 mls/hr Insulin Human Lispro (Humalog) 0 units SC ACHS [facility] PRN Reason: Protocol Last Admin: 08/20/17 09:03 Dose: 1 units Lamivudine (Epivir) 150 mg PO DAILY [facility] PRN Reason: Protocol Last Admin: 08/20/17 09:04 Dose: 150 mg Lidocaine (Lidoderm) 1 ea TD DAILY [facility] Last Admin: 08/20/17 09:03 Dose: 1 ea Lorazepam (Ativan) 0.5 mg IVP Q6 PRN PRN Reason: Agitation Last Admin: 08/16/17 12:58 Dose: 0.5 mg Tramadol HCl (Ultram) 50 mg PO Q12 PRN PRN Reason: Pain, severe (8-10) - Labs Labs: 08/20/17 05:35 08/20/17 05:35 PT 13.2 Seconds (9.8-13.1) H 08/07/17 14:20 INR 1.2 (0.9-1.2) 08/07/17 14:20 APTT 39.1 Seconds (25.6-37.1) H 07/22/17 05:20 - Constitutional Appears: No Acute Distress - Head Exam Head Exam: NORMAL INSPECTION - Neurological Exam Neurological Exam: Alert, Awake, Oriented x3 Neuro motor strength exam: Left Upper Extremity: 4, Right Upper Extremity: 4, Left Lower Extremity: 2/1, Right Lower Extremity: 2/1 Additional comments: Neurological improved since the previous examination. He is able to participate in conversation and remembers how he injured his right leg. Assessment and Plan (1) Altered mental status Assessment & Plan: Case discussed with Dr. Jackson, continue all current medical regimen. Recommend to treat any underlying electrolyte abnormality. Status: Acute
[2017-08-20] MEDS ORDERED: Multivitamin (MVI) 10 ML, Chromium/Copper/Manganese/Zinc 3 ML in Amino/Dex E 4.25/10 10... IV ONE ×2 (14:30→16:30)
--- NOTE | 2017-08-20 21:27 | CP.PCM.PN ---
Subjective - Date & Time of Evaluation Date of Evaluation: 08/20/17 Time of Evaluation: 20:00 - Subjective Subjective: Has abdominal pain. Objective - Vital Signs/Intake and Output Vital Signs (last 24 hours): Temp Pulse Resp BP Pulse Ox 97.3 F L 95 H 20 120/87 98 08/20/17 17:56 08/20/17 17:56 08/20/17 08:29 08/20/17 17:56 08/20/17 17:56 Intake and Output: 08/20/17 08/21/17 18:59 06:59 Intake Total 394 Output Total 1150 Balance -756 - Medications Medications: Current Medications Acetaminophen (Tylenol 325mg Tab) 650 mg PO Q4 PRN PRN Reason: Pain, moderate (4-7) Last Admin: 08/20/17 16:19 Dose: 650 mg Bisacodyl (Dulcolax) [address] DAILY PRN PRN Reason: Constipation Last Admin: 08/07/17 14:18 Dose: 10 mg Cyanocobalamin (Vitamin B12 1000 Mcg Tab) 1,000 mcg PO DAILY [facility] Last Admin: 08/20/17 09:02 Dose: 1,000 mcg Cyclobenzaprine HCl (Flexeril) 10 mg PO Q12 [facility] Last Admin: 08/20/17 09:02 Dose: 10 mg Ferrous Sulfate (Feosol Liq) 300 mg PO BID [facility] Last Admin: 08/20/17 16:16 Dose: 300 mg Fluconazole (Diflucan) 100 mg PO DAILY [facility] Last Admin: 08/20/17 09:04 Dose: 100 mg Guaifenesin/Dextromethorphan (Robitussin Dm) 10 ml PO Q6 PRN PRN Reason: Cough Last Admin: 08/17/17 16:06 Dose: 10 ml Home Med (Patient's Own Medication) 1 unit PO HS [facility] Last Admin: 08/19/17 22:16 Dose: 1 unit Piperacillin Sod/Tazobactam (Sod 3.375 gm/ Sodium Chloride) 100 mls @ 100 mls/ hr IVPB Q8@0100,0900,1700 [facility] PRN Reason: Protocol Last Admin: 08/20/17 16:16 Dose: 100 mls/hr Multivitamins/Vitamin C 10 ml/Chromium/Copper/Manganese/Zinc 3 ml/ Amino Acids/ Electrolytes/Dextrose 1,013 mls @ 55 mls/hr IV .[id number] ONE Stop: 08/21/17 08:55 Last Admin: 08/20/17 16:52 Dose: 55 mls/hr Insulin Human Lispro (Humalog) 0 units SC ACHS [facility] PRN Reason: Protocol Last Admin: 08/20/17 16:43 Dose: Not Given Lamivudine (Epivir) 150 mg PO DAILY [facility] PRN Reason: Protocol Last Admin: 08/20/17 09:04 Dose: 150 mg Lidocaine (Lidoderm) 1 ea TD DAILY [facility] Last Admin: 08/20/17 09:03 Dose: 1 ea Lorazepam (Ativan) 0.5 mg IVP Q6 PRN PRN Reason: Agitation Last Admin: 08/16/17 12:58 Dose: 0.5 mg Tramadol HCl (Ultram) 50 mg PO Q12 PRN PRN Reason: Pain, severe (8-10) Last Admin: 08/20/17 13:04 Dose: 50 mg - Labs Labs: 08/20/17 05:35 08/20/17 05:35 PT 13.2 Seconds (9.8-13.1) H 08/07/17 14:20 INR 1.2 (0.9-1.2) 08/07/17 14:20 APTT 39.1 Seconds (25.6-37.1) H 07/22/17 05:20 - Head Exam Head Exam: ATRAUMATIC - Eye Exam Eye Exam: Normal appearance - ENT Exam ENT Exam: Mucous Membranes Dry - Respiratory Exam Respiratory Exam: NORMAL BREATHING PATTERN - Cardiovascular Exam Cardiovascular Exam: +S1, +S2 - GI/Abdominal Exam GI & Abdominal Exam: Normal Bowel Sounds Assessment and Plan (1) Pancytopenia Assessment & Plan: mild leukopenia anemia of chronic disease; was on Procrit, now stopped due to rise in H/H s/p transfusion support plt count slightly diminished Status: Acute
[2017-08-20] MEDS: MELATONIN PO SCH (21:28)
[2017-08-21] MEDS: Piperacillin/Tazobact 3.375 GM in Sodium Chloride 0.9% 100 ML IVPB SCH ×3 (00:38→16:39)
[2017-08-21 00:48] VITALS: RESP 18
--- NOTE | 2017-08-21 06:19 | CP.PCM.PN ---
Subjective - Date & Time of Evaluation Date of Evaluation: 08/20/17 Time of Evaluation: 11:30 - Subjective Subjective: patient remains stable Has been more oriented Discussed plans for LTAC and agreed with it. Objective - Vital Signs/Intake and Output Vital Signs (last 24 hours): Temp Pulse Resp BP Pulse Ox 97.4 F L 91 H 18 103/70 95 08/21/17 00:48 08/21/17 00:48 08/21/17 00:48 08/21/17 00:48 08/21/17 00:48 Intake and Output: 08/20/17 08/21/17 18:59 06:59 Intake Total 394 330 Output Total 1150 Balance -756 330 - Medications Medications: Current Medications Acetaminophen (Tylenol 325mg Tab) 650 mg PO Q4 PRN PRN Reason: Pain, moderate (4-7) Last Admin: 08/20/17 16:19 Dose: 650 mg Bisacodyl (Dulcolax) 10 mg [place] DAILY PRN PRN Reason: Constipation Last Admin: 08/07/17 14:18 Dose: 10 mg Cyanocobalamin (Vitamin B12 1000 Mcg Tab) 1,000 mcg PO DAILY [facility] Last Admin: 08/20/17 09:02 Dose: 1,000 mcg Cyclobenzaprine HCl (Flexeril) 10 mg PO Q12 [facility] Last Admin: 08/20/17 21:28 Dose: 10 mg Ferrous Sulfate (Feosol Liq) 300 mg PO BID [facility] Last Admin: 08/20/17 16:16 Dose: 300 mg Fluconazole (Diflucan) 100 mg PO DAILY [facility] Last Admin: 08/20/17 09:04 Dose: 100 mg Guaifenesin/Dextromethorphan (Robitussin Dm) 10 ml PO Q6 PRN PRN Reason: Cough Last Admin: 08/17/17 16:06 Dose: 10 ml Home Med (Patient's Own Medication) 1 unit PO HS [facility] Last Admin: 08/20/17 21:28 Dose: 1 unit Piperacillin Sod/Tazobactam (Sod 3.375 gm/ Sodium Chloride) 100 mls @ 100 mls/ hr IVPB Q8@0100,0900,1700 [facility] PRN Reason: Protocol Last Admin: 08/21/17 00:38 Dose: 100 mls/hr Multivitamins/Vitamin C 10 ml/Chromium/Copper/Manganese/Zinc 3 ml/ Amino Acids/ Electrolytes/Dextrose 1,013 mls @ 55 mls/hr IV .[id number] ONE Stop: 08/21/17 08:55 Last Admin: 08/20/17 16:52 Dose: 55 mls/hr Insulin Human Lispro (Humalog) 0 units SC ACHS [facility] PRN Reason: Protocol Last Admin: 08/20/17 22:00 Dose: Not Given Lamivudine (Epivir) 150 mg PO DAILY [facility] PRN Reason: Protocol Last Admin: 08/20/17 09:04 Dose: 150 mg Lidocaine (Lidoderm) 1 ea TD DAILY [facility] Last Admin: 08/20/17 09:03 Dose: 1 ea Lorazepam (Ativan) 0.5 mg IVP Q6 PRN PRN Reason: Agitation Last Admin: 08/16/17 12:58 Dose: 0.5 mg Tramadol HCl (Ultram) 50 mg PO Q12 PRN PRN Reason: Pain, severe (8-10) Last Admin: 08/21/17 03:39 Dose: 50 mg - Labs Labs: 08/20/17 05:35 08/20/17 05:35 PT 13.2 Seconds (9.8-13.1) H 08/07/17 14:20 INR 1.2 (0.9-1.2) 08/07/17 14:20 APTT 39.1 Seconds (25.6-37.1) H 07/22/17 05:20 - Head Exam Head Exam: NORMAL INSPECTION - Eye Exam Eye Exam: Normal appearance - ENT Exam ENT Exam: Mucous Membranes Moist - Respiratory Exam Respiratory Exam: Clear to Ausculation Bilateral - GI/Abdominal Exam GI & Abdominal Exam: Normal Bowel Sounds - Neurological Exam Neurological Exam: Awake, Oriented x3 - Psychiatric Exam Psychiatric exam: Normal Mood Assessment and Plan (1) Abdominal pain Status: Acute (2) COPD (chronic obstructive pulmonary disease) Status: Acute (3) Essential (primary) hypertension Status: Acute (4) Hx of atrial fibrillation, no current medication Status: Acute (5) Intestinal perforation Status: Acute (6) Perforated abdominal viscus Status: Acute (7) Atrial fibrillation Status: Acute (8) Anemia Status: Acute (9) Thrombocytopenia Status: Acute (10) Abscess Status: Acute (11) Delirium Status: Acute - Assessment and Plan (Free Text) Plan: Cont meds Cont tx Cont PT arrange for LTAC Discussed case wiht liaison with LTAC in [place] and will assess patient for admission.
[2017-08-21 06:56] LABS: ALB/GLOB RATIO 0.6 (1.0-2.1); ALBUMIN 2.2 g/dL (3.5-5.0); ALT/SGPT 27 U/L (21-72); AST/SGOT 15 U/L (17-59); BLOOD UREA NITROGEN 16 mg/dl (9-20); CALCIUM 7.7 mg/dL (8.4-10.2); GFR AFRICAN-AMERICAN > 60; GFR NON-AFRICAN AMERICAN > 60
--- NOTE | 2017-08-21 07:48 | CP.PCM.PN ---
Subjective - Date & Time of Evaluation Date of Evaluation: 08/21/17 Time of Evaluation: 07:00 - Subjective Subjective: General Surgery Progress Note-Dr. ODOM 72M seen and examined at bedside. Resting comfortably in bed. No acute events overnight. Tolerating diet. Objective - Vital Signs/Intake and Output Vital Signs (last 24 hours): Temp Pulse Resp BP Pulse Ox 97.4 F L 91 H 18 103/70 95 08/21/17 00:48 08/21/17 00:48 08/21/17 00:48 08/21/17 00:48 08/21/17 00:48 Intake and Output: 08/21/17 08/21/17 06:59 18:59 Intake Total 330 Output Total 1300 Balance -970 - Medications Medications: Current Medications Acetaminophen (Tylenol 325mg Tab) 650 mg PO Q4 PRN PRN Reason: Pain, moderate (4-7) Last Admin: 08/21/17 06:43 Dose: 650 mg Bisacodyl (Dulcolax) 10 mg [place] DAILY PRN PRN Reason: Constipation Last Admin: 08/07/17 14:18 Dose: 10 mg Cyanocobalamin (Vitamin B12 1000 Mcg Tab) 1,000 mcg PO DAILY [facility] Last Admin: 08/20/17 09:02 Dose: 1,000 mcg Cyclobenzaprine HCl (Flexeril) 10 mg PO Q12 [facility] Last Admin: 08/20/17 21:28 Dose: 10 mg Ferrous Sulfate (Feosol Liq) 300 mg PO BID [facility] Last Admin: 08/20/17 16:16 Dose: 300 mg Fluconazole (Diflucan) 100 mg PO DAILY [facility] Last Admin: 08/20/17 09:04 Dose: 100 mg Guaifenesin/Dextromethorphan (Robitussin Dm) 10 ml PO Q6 PRN PRN Reason: Cough Last Admin: 08/17/17 16:06 Dose: 10 ml Home Med (Patient's Own Medication) 1 unit PO HS [facility] Last Admin: 08/20/17 21:28 Dose: 1 unit Piperacillin Sod/Tazobactam (Sod 3.375 gm/ Sodium Chloride) 100 mls @ 100 mls/ hr IVPB Q8@0100,0900,1700 [facility] PRN Reason: Protocol Last Admin: 08/21/17 00:38 Dose: 100 mls/hr Multivitamins/Vitamin C 10 ml/Chromium/Copper/Manganese/Zinc 3 ml/ Amino Acids/ Electrolytes/Dextrose 1,013 mls @ 55 mls/hr IV .[id number] ONE Stop: 08/21/17 08:55 Last Admin: 08/20/17 16:52 Dose: 55 mls/hr Magnesium Sulfate 1 gm/ Sodium (Chloride) 102 mls @ 204 mls/hr IVPB ONCE ONE PRN Reason: 1 GM/30 MIN Stop: 08/21/17 08:09 Insulin Human Lispro (Humalog) 0 units SC ACHS [facility] PRN Reason: Protocol Last Admin: 08/20/17 22:00 Dose: Not Given Lamivudine (Epivir) 150 mg PO DAILY [facility] PRN Reason: Protocol Last Admin: 08/20/17 09:04 Dose: 150 mg Lidocaine (Lidoderm) 1 ea TD DAILY [facility] Last Admin: 08/20/17 09:03 Dose: 1 ea Lorazepam (Ativan) 0.5 mg IVP Q6 PRN PRN Reason: Agitation Last Admin: 08/16/17 12:58 Dose: 0.5 mg Tramadol HCl (Ultram) 50 mg PO Q12 PRN PRN Reason: Pain, severe (8-10) Last Admin: 08/21/17 03:39 Dose: 50 mg - Labs Labs: 08/20/17 05:35 08/21/17 05:55 PT 13.2 Seconds (9.8-13.1) H 08/07/17 14:20 INR 1.2 (0.9-1.2) 08/07/17 14:20 APTT 39.1 Seconds (25.6-37.1) H 07/22/17 05:20 - Constitutional Appears: Non-toxic, No Acute Distress - Head Exam Head Exam: NORMOCEPHALIC - ENT Exam ENT Exam: Mucous Membranes Moist - Respiratory Exam Respiratory Exam: NORMAL BREATHING PATTERN - Cardiovascular Exam Cardiovascular Exam: +S1, +S2 - GI/Abdominal Exam GI & Abdominal Exam: Soft. absent: Distended, Guarding, Rigid, Tenderness Additional comments: fistula output continues to be high - Skin Skin Exam: Dry, Intact, Normal Color, Warm Assessment and Plan - Assessment and Plan (Free Text) Assessment: 72M s/p ex-lap for perforated viscous with Small bowel resection with anastomosis POD#45, with post-op leak and colocutaneous fistula, s/p IR drainage , PICC line re-insertion POD#3 Plan: - Low residual diet - WEAN TPN - Monitor fistula output - Strict I's & O's - Pain control - Frequent repositioning - OOB to chair/Encourage Ambulation/Incentive Spirometer - PT/OT - Waiting LTACH placement - Further recommendations as per Dr. Zaynab Baker DPM PGY-1
--- NOTE | 2017-08-21 08:08 | CP.PCM.PN ---
Subjective - Date & Time of Evaluation Date of Evaluation: 08/21/17 Time of Evaluation: 07:30 - Subjective Subjective: Patient seen and examined this morning at bedside. There are no acute events overnight, NAD. Patient is POD43. Patient on pulmonary sport bed. Patient on TPN and tolerating low residual diet. Objective - Vital Signs/Intake and Output Vital Signs (last 24 hours): Temp Pulse Resp BP Pulse Ox 97.4 F L 91 H 18 103/70 95 08/21/17 00:48 08/21/17 00:48 08/21/17 00:48 08/21/17 00:48 08/21/17 00:48 Intake and Output: 08/21/17 08/21/17 06:59 18:59 Intake Total 330 Output Total 1300 Balance -970 - Medications Medications: Current Medications Acetaminophen (Tylenol 325mg Tab) 650 mg PO Q4 PRN PRN Reason: Pain, moderate (4-7) Last Admin: 08/21/17 06:43 Dose: 650 mg Bisacodyl (Dulcolax) 10 mg [place] DAILY PRN PRN Reason: Constipation Last Admin: 08/07/17 14:18 Dose: 10 mg Cyanocobalamin (Vitamin B12 1000 Mcg Tab) 1,000 mcg PO DAILY [facility] Last Admin: 08/20/17 09:02 Dose: 1,000 mcg Cyclobenzaprine HCl (Flexeril) 10 mg PO Q12 [facility] Last Admin: 08/20/17 21:28 Dose: 10 mg Ferrous Sulfate (Feosol Liq) 300 mg PO BID [facility] Last Admin: 08/20/17 16:16 Dose: 300 mg Fluconazole (Diflucan) 100 mg PO DAILY [facility] Last Admin: 08/20/17 09:04 Dose: 100 mg Guaifenesin/Dextromethorphan (Robitussin Dm) 10 ml PO Q6 PRN PRN Reason: Cough Last Admin: 08/17/17 16:06 Dose: 10 ml Home Med (Patient's Own Medication) 1 unit PO HS [facility] Last Admin: 08/20/17 21:28 Dose: 1 unit Piperacillin Sod/Tazobactam (Sod 3.375 gm/ Sodium Chloride) 100 mls @ 100 mls/ hr IVPB Q8@0100,0900,1700 [facility] PRN Reason: Protocol Last Admin: 08/21/17 00:38 Dose: 100 mls/hr Multivitamins/Vitamin C 10 ml/Chromium/Copper/Manganese/Zinc 3 ml/ Amino Acids/ Electrolytes/Dextrose 1,013 mls @ 55 mls/hr IV .[id number] ONE Stop: 08/21/17 08:55 Last Admin: 08/20/17 16:52 Dose: 55 mls/hr Magnesium Sulfate 1 gm/ Sodium (Chloride) 102 mls @ 204 mls/hr IVPB ONCE ONE PRN Reason: 1 GM/30 MIN Stop: 08/21/17 08:09 Insulin Human Lispro (Humalog) 0 units SC ACHS [facility] PRN Reason: Protocol Last Admin: 08/20/17 22:00 Dose: Not Given Lamivudine (Epivir) 150 mg PO DAILY [facility] PRN Reason: Protocol Last Admin: 08/20/17 09:04 Dose: 150 mg Lidocaine (Lidoderm) 1 ea TD DAILY [facility] Last Admin: 08/20/17 09:03 Dose: 1 ea Lorazepam (Ativan) 0.5 mg IVP Q6 PRN PRN Reason: Agitation Last Admin: 08/16/17 12:58 Dose: 0.5 mg Tramadol HCl (Ultram) 50 mg PO Q12 PRN PRN Reason: Pain, severe (8-10) Last Admin: 08/21/17 03:39 Dose: 50 mg - Labs Labs: 08/20/17 05:35 08/21/17 05:55 PT 13.2 Seconds (9.8-13.1) H 08/07/17 14:20 INR 1.2 (0.9-1.2) 08/07/17 14:20 APTT 39.1 Seconds (25.6-37.1) H 07/22/17 05:20 - Constitutional Appears: Non-toxic, No Acute Distress - Head Exam Head Exam: ATRAUMATIC, NORMAL INSPECTION, NORMOCEPHALIC - Eye Exam Eye Exam: Normal appearance - ENT Exam ENT Exam: Mucous Membranes Moist - Neck Exam Neck Exam: Full ROM. absent: Tenderness - Respiratory Exam Respiratory Exam: Clear to Ausculation Bilateral. absent: Accessory Muscle Use , Decreased Breath Sounds, Rales, Rhonchi, Wheezes, Respiratory Distress - Cardiovascular Exam Cardiovascular Exam: REGULAR RHYTHM. absent: Tachycardia - GI/Abdominal Exam GI & Abdominal Exam: Soft, Tenderness. absent: Distended Additional comments: colostomy bag with stool output on midline wound, had output of 1350cc - Extremities Exam Extremities Exam: absent: Calf Tenderness, Pedal Edema, Tenderness - Neurological Exam Neurological Exam: Alert, Awake, Oriented x3 - Skin Skin Exam: Dry, Normal Color, Warm Assessment and Plan (1) Abdominal pain Status: Acute (2) Abscess Status: Acute (3) Atrial fibrillation Status: Acute (4) COPD (chronic obstructive pulmonary disease) Status: Acute (5) Essential (primary) hypertension Status: Acute (6) Hx of atrial fibrillation, no current medication Status: Acute (7) Intestinal perforation Status: Acute (8) Perforated abdominal viscus Status: Acute (9) Thrombocytopenia Status: Acute (10) Anemia Status: Acute - Assessment and Plan (Free Text) Plan: c/w present management. s/p ex-lap for perforated viscous with Small bowel resection with anastomosis, with post-op leak and EC fistula; POD 43 Surgery recommendations appreciated heme/onc recommendations appreciated pain management recommendations appreciated infectious disease recommendations appreciated neurology recommendations appreciated leukopenia and anemia diflucan 100 mg PO daily day 5 zosyn 3.375 mg IV Q8h day 13 c/w lamivudine 150 mg PO daily c/w low residual diet as tolerated c/w TPN @ 55 mL/h pain management: tylenol 650 mg PO Q4h, ultram 50 mg PO Q6h prn, flexeril 10 mg PO Q12h, lidoderm 5% patch daily c/w epoetin karolyn c/w pulmonary sport bed DVT PPX: SCDs monitor for acute changes
[2017-08-21 08:22] VITALS: BP 118/80; PULSE 78; TEMP 97.9; O2SAT 97
[2017-08-21] MEDS ORDERED: Magnesium Sulfate 1 GM in Dextrose 5% In Water 100 ML IVPB ONE (08:45)
[2017-08-21] MEDS: Ferrous Sulfate 300 mg/5 mL Liq UD PO SCH ×2 (09:02→16:39)
[2017-08-21] MEDS: Insulin Lispro (humaLOG) 100 Units/ml Inj SC SCH ×3 (09:03→17:15)
[2017-08-21] MEDS: Lidocaine 5% Patch TD SCH (09:03)
--- NOTE | 2017-08-21 14:19 | CP.PCM.DIS ---
Provider - Provider Date of Admission: 07/07/17 23:30 Attending physician: Bronson Castaneda MD Time Spent in preparation of Discharge (in minutes): 15 Diagnosis - Discharge Diagnosis (1) Abdominal pain Status: Acute (2) Abscess Status: Acute (3) Atrial fibrillation Status: Acute Priority: High (4) COPD (chronic obstructive pulmonary disease) Status: Chronic (5) Essential (primary) hypertension Status: Chronic (6) Hx of atrial fibrillation, no current medication Status: Chronic (7) Intestinal perforation Status: Acute Priority: High (8) Perforated abdominal viscus Status: Acute (9) Thrombocytopenia Status: Resolved (10) Anemia Status: Resolved Priority: High Hospital Course - Lab Results Lab Results: Micro Results 08/15/17 11:20 Blood-Venous Blood Culture - Final NO GROWTH AFTER 5 DAYS 08/15/17 11:20 Blood-Venous Gram Stain - Final TEST NOT PERFORMED 08/15/17 10:58 Blood-Thru Central Line Blood Culture - Final NO GROWTH AFTER 5 DAYS 08/15/17 14:57 Urine,Catheterized Urine Culture - Final No Growth (<1,000 CFU/ML) 08/07/17 16:45 Body Fluid - Pelvic Cavity Gram Stain - Final 08/07/17 16:45 Body Fluid - Pelvic Cavity Body Fluid Culture - Final Bessy Albicans 07/31/17 21:14 Naris MRSA Culture (Admit) - Final MRSA NOT DETECTED 07/22/17 07:55 Abdomen Gram Stain - Final 07/22/17 07:55 Abdomen Wound Culture - Final Bessy Albicans 07/22/17 07:55 Naris MRSA Culture (Admit) - Final MRSA NOT DETECTED 07/18/17 12:29 Abdomen Gram Stain - Final 07/18/17 12:29 Abdomen Wound Culture - Final Bessy Lusitaniae 07/12/17 17:20 Urine,Clean Catch Urine Culture - Final No Growth (<1,000 CFU/ML) 07/08/17 09:55 Nose MRSA Culture (Admit) - Final MRSA DETECTED Most Recent Lab Values WBC 2.7 K/uL (4.8-10.8) L 08/20/17 05:35 RBC 3.81 Mil/uL (4.40-5.90) L 08/20/17 05:35 Hgb 12.6 g/dL (12.0-18.0) 08/20/17 05:35 Hct 38.3 % (35.0-51.0) 08/20/17 05:35 MCV 100.5 fl (80.0-94.0) H 08/20/17 05:35 MCH 33.1 pg (27.0-31.0) H 08/20/17 05:35 MCHC 33.0 g/dL (33.0-37.0) 08/20/17 05:35 RDW 19.7 % (11.5-14.5) H 08/20/17 05:35 Plt Count 110 K/uL (130-400) L D 08/20/17 05:35 Manual Plt Count 64 K/uL (130-400) L 07/25/17 04:20 MPV 8.4 fl (7.2-11.7) 08/20/17 05:35 Neut % (Auto) 62.6 % (50.0-75.0) 08/20/17 05:35 Lymph % (Auto) 20.2 % (20.0-40.0) 08/20/17 05:35 [place] % (Auto) 10.4 % (0.0-10.0) H 08/20/17 05:35 Eos % (Auto) 6.0 % (0.0-4.0) H 08/20/17 05:35 Baso % (Auto) 0.8 % (0.0-2.0) 08/20/17 05:35 Neut # (Auto) 1.7 K/uL (1.8-7.0) L 08/20/17 05:35 Lymph # (Auto) 0.5 K/uL (1.0-4.3) L 08/20/17 05:35 [place] # (Auto) 0.3 K/uL (0.0-0.8) 08/20/17 05:35 Eos # (Auto) 0.2 K/uL (0.0-0.7) 08/20/17 05:35 Baso # (Auto) 0.0 K/uL (0.0-0.2) 08/20/17 05:35 Neutrophils % (Manual) 78 % (42-75) H 07/10/17 04:20 Band Neutrophils % 13 % (0-2) H* 07/10/17 04:20 Lymphocytes % (Manual) 8 % (20-50) L 07/10/17 04:20 Monocytes % (Manual) 1 % (0-10) 07/10/17 04:20 Metamyelocytes % 1 % (0-0) H 07/08/17 14:58 Platelet Estimate Normal (NORMAL) 07/10/17 04:20 Large Platelets Present 07/10/17 04:20 Giant Platelets Present 07/10/17 04:20 Poikilocytosis (manual Moderate 07/10/17 04:20 Anisocytosis (manual) Slight 07/10/17 04:20 Macrocytosis (manual) Slight 07/08/17 14:58 Spherocytes Slight 07/10/17 04:20 Tear Drop Cells Slight 07/10/17 04:20 [place] Cells Moderate 07/10/17 04:20 Acanthocytes (Spur) Slight 07/08/17 14:58 ESR 35 mm/hr (0-20) H 07/23/17 04:45 PT 13.2 Seconds (9.8-13.1) H 08/07/17 14:20 INR 1.2 (0.9-1.2) 08/07/17 14:20 APTT 39.1 Seconds (25.6-37.1) H 07/22/17 05:20 Fibrinogen 247 mg/dl (200-400) 07/31/17 04:30 pCO2 32 mm/Hg (35-45) L 08/16/17 08:27 pO2 120 mm/Hg (80-100) H 08/16/17 08:27 HCO3 25.0 mmol/L (21-28) 08/16/17 08:27 ABG pH 7.47 (7.35-7.45) H 08/16/17 08:27 ABG Total CO2 24.3 mmol/L (22-28) 08/16/17 08:27 ABG O2 Saturation 99.5 % (95-98) H 08/16/17 08:27 ABG O2 Content 15.1 ML/dL (15-23) 08/16/17 08:27 ABG Base Excess 0.1 mmol/L (-2.0-3.0) 08/16/17 08:27 ABG Hemoglobin 11.0 g/dL (11.7-17.4) L 08/16/17 08:27 ABG Carboxyhemoglobin 2.2 % (0.5-1.5) H 08/16/17 08:27 POC ABG HHb (Measured) 0.5 % (0.0-5.0) 08/16/17 08:27 ABG Methemoglobin 0.7 % (0.0-3.0) 08/16/17 08:27 ABG O2 Capacity 15.2 mL/dL (16-24) L 08/16/17 08:27 [place] Test Yes 08/16/17 08:27 ABG Potassium 4.0 mmol/L (3.6-5.2) 07/09/17 04:25 A-a O2 Difference 40.0 mm/Hg 08/16/17 08:27 Hgb O2 Saturation 96.6 % (95.0-98.0) 08/16/17 08:27 Sodium 129.0 mmol/L (132-148) L 07/09/17 04:25 Chloride 107.0 mmol/L (98-107) 07/09/17 04:25 Glucose 231 mg/dL (75-110) H 07/09/17 04:25 Lactate 3.7 mmol/L (0.7-2.1) H 07/09/17 04:25 Vent Mode A/c 07/10/17 04:00 Mechanical Rate 20 07/10/17 04:00 FiO2 28.0 % 08/16/17 08:27 Tidal Volume 550 07/10/17 04:00 PEEP 5 07/10/17 04:00 Pressure Support 10 07/10/17 11:37 CPAP 5 07/10/17 11:37 Crit Value Called To Dr lewis camacho 07/08/17 16:52 Crit Value Called By Jeffy 07/08/17 16:52 Crit Value Read Back Y 07/08/17 16:52 Blood Gas Notified Time 7802 07/08/17 16:52 Sodium 127 mmol/l (132-148) L 08/21/17 05:55 Potassium 4.6 MMOL/L (3.6-5.0) 08/21/17 05:55 Chloride 100 mmol/L (98-107) 08/21/17 05:55 Carbon Dioxide 19 mmol/L (22-30) L 08/21/17 05:55 Anion Gap 13 (10-20) 08/21/17 05:55 BUN 16 mg/dl (9-20) 08/21/17 05:55 Creatinine 0.7 mg/dl (0.8-1.5) L 08/21/17 05:55 Est GFR ( Amer) > 60 08/21/17 05:55 Est GFR (Non-Af Amer) > 60 08/21/17 05:55 POC Glucose (mg/dL) 114 mg/dL (65-110) H 08/21/17 10:49 Random Glucose 96 mg/dL (75-110) 08/21/17 05:55 Hemoglobin A1c 5.3 % (4.2-6.5) 07/18/17 12:30 Lactic Acid 0.9 MMOL/L (0.7-2.1) 08/15/17 10:58 Calcium 7.7 mg/dL (8.4-10.2) L 08/21/17 05:55 Phosphorus 3.1 mg/dl (2.5-4.5) 08/21/17 05:55 Magnesium 1.5 MG/DL (1.6-2.3) L 08/21/17 05:55 Total Bilirubin 1.1 mg/dl (0.2-1.3) 08/21/17 05:55 AST 15 U/L (17-59) L D 08/21/17 05:55 ALT 27 U/L (21-72) 08/21/17 05:55 Alkaline Phosphatase 99 U/L (38-126) 08/21/17 05:55 Ammonia 12 umo/L (16-60) L 08/15/17 10:58 Troponin I 0.0350 ng/mL (0.00-0.120) 07/09/17 04:40 C-Reactive Protein 36.10 mg/L (0.0-9.9) H 08/11/17 06:00 Total Protein 5.8 G/DL (6.3-8.2) L 08/21/17 05:55 Albumin 2.2 g/dL (3.5-5.0) L 08/21/17 05:55 Globulin 3.6 gm/dL (2.2-3.9) 08/21/17 05:55 Albumin/Globulin Ratio 0.6 (1.0-2.1) L 08/21/17 05:55 Prealbumin 6.2 mg/dL (17.6-36.0) L 08/16/17 08:39 Triglycerides 32 mg/DL (0-149) 08/13/17 05:35 Cholesterol < 50 mg/dL (0-199) 08/06/17 05:30 LDL Cholesterol Direct < 30 mg/dL (0-129) 08/06/17 05:30 HDL Cholesterol 14 MG/DL (30-70) L 08/06/17 05:30 Lipase < 10 U/L (23-300) L 07/07/17 15:57 Alpha Fetoprotein 1.1 IU/mL (0.0-7.22) 07/28/17 04:37 CA 19-9 Antigen 118 U/mL (0-37) H 07/28/17 04:37 Procalcitonin 0.25 NG/ML (0.19-0.49) 07/31/17 04:30 Free T4 0.73 ng/dL (0.78-2.19) L 07/12/17 06:00 TSH 3rd Generation 3.26 mIU/ML (0.46-4.68) 07/12/17 06:00 Arterial Blood Potassium 4.0 mmol/L (3.6-5.2) 07/09/17 04:25 Urine Color Yellow (YELLOW) 08/15/17 14:57 Urine Clarity Clear (Clear) 08/15/17 14:57 Urine pH 7.0 (5.0-8.0) 08/15/17 14:57 Ur Specific [place] 1.015 (1.003-1.030) 08/15/17 14:57 Urine Protein Negative mg/dL (NEGATIVE) 08/15/17 14:57 Urine Glucose (UA) Neg mg/dL (Normal) 08/15/17 14:57 Urine Ketones Negative mg/dL (NEGATIVE) 08/15/17 14:57 Urine Blood Negative (NEGATIVE) 08/15/17 14:57 Urine Nitrate Negative (NEGATIVE) 08/15/17 14:57 Urine Bilirubin Negative (NEGATIVE) 08/15/17 14:57 Urine Urobilinogen 0.2-1.0 mg/dL (0.2-1.0) 08/15/17 14:57 Ur Leukocyte Esterase Neg He/uL (Negative) 08/15/17 14:57 Urine RBC (Auto) 3 /hpf (0-3) 08/15/17 14:57 Urine Microscopic WBC 8 /hpf (0-5) H 08/15/17 14:57 Stool Occult Blood Positive (NEGATIVE) H 08/08/17 11:01 Vancomycin Trough 14.5 ug/mL (5.0-10.0) H 07/11/17 20:15 Hepatitis A IgM Ab Negative (NEGATIVE) 07/16/17 05:30 Hep Bs Antigen Reactive (NEGATIVE) 07/16/17 05:30 Hep Bs Ag Neutralizatn Confirmed positive H 07/17/17 08:00 Hep B Core IgM Ab Negative (NEGATIVE) 07/16/17 05:30 Hepatitis Be Antibody Reactive (Nonreactive) H 07/29/17 04:37 Hepatitis Be Antigen Nonreactive (Nonreactive) 07/29/17 04:37 Hepatitis C Antibody Negative (NEGATIVE) 07/16/17 05:30 HIV 1&2 Antibody Screen Negative (NEGATIVE) 07/16/17 05:30 Blood Type A POSITIVE 08/03/17 11:00 Antibody Screen Negative 08/03/17 11:00 Crossmatch See Detail 08/03/17 11:00 Crossmatch IS Only See Detail 07/08/17 00:55 BBK History Checked Patient has bt 08/03/17 11:00 - Hospital Course Hospital Course: 72 y/o man w/ pmh of HTN, COPD, Afib, s/p ex-lap for perforated viscous with Small bowel resection with anastomosis, with post-op leak and EC fistula; POD 44 was admitted for severe abdominal pain. Patient currently has colostomy which still has high output. Patient still reports pain mildly relieved w/ medication. Patient was seen by surgery, ID, pulmonology, cardiology, heme/onc , neurology, and pain management. Patient had IR drain removed and is to continue TPN and PO intake for adequate calories. The patient is to be discharged to long term care administrator care facility closer to his family. The patient is to follow up w/ Dr. Worthy's office (phone: [phone]/fax: [phone]) for possible elective surgery in 6 months. The patient is medically stable. The patient has been seen, examined, and medically fit for discharge to [facility] in [place], [place]. Discharge Exam - Head Exam Head Exam: ATRAUMATIC, NORMAL INSPECTION, NORMOCEPHALIC - Eye Exam Eye Exam: Normal appearance - ENT Exam ENT Exam: Mucous Membranes Moist - Neck Exam Neck exam: Full Rom - Respiratory Exam Respiratory Exam: Clear to PA & Lateral. absent: Accessory Muscle Use, Decreased Breath Sounds, Rales, Rhonchi, Wheezes, Respiratory Distress - Cardiovascular Exam Cardiovascular Exam: REGULAR RHYTHM. absent: Tachycardia - GI/Abdominal Exam GI & Abdominal Exam: Soft, Tenderness. absent: Rebound Additional comments: colostomy bag with stool output on midline wound, had output of 1350cc - Neurological Exam Neurological exam: Alert, Oriented x3 - Skin Skin Exam: Dry, Normal Color, Warm Discharge Plan - Follow Up Plan Condition: IMPROVED Disposition: [facility] Instructions: Constipation in Adults, High Fiber Diet Referrals: [facility] [place] [Outside] [facility] [place] [Outside]
[2017-08-21] MEDS ORDERED: SODIUM PHOSPHATE IV ONE (15:00)
[2017-08-21] MEDS ORDERED: SODIUM CHLORIDE IV ONE (15:00)
[2017-08-21] MEDS ORDERED: [UNRECOGNIZED DRUG - OTHER] IV ONE (15:00)
[2017-08-21] MEDS ORDERED: SODIUM ACETATE IV ONE (15:00)
--- NOTE | 2017-08-21 19:18 | CP.PCM.PN ---
Subjective - Date & Time of Evaluation Date of Evaluation: 08/21/17 Time of Evaluation: 10:00 - Subjective Subjective: Has some abdominal pain. Objective - Vital Signs/Intake and Output Vital Signs (last 24 hours): Temp Pulse Resp BP Pulse Ox 97.9 F 78 18 118/80 97 08/21/17 08:22 08/21/17 08:22 08/21/17 08:22 08/21/17 08:22 08/21/17 08:22 Intake and Output: 08/21/17 08/22/17 18:59 06:59 Intake Total 1110 Output Total 2000 Balance -890 - Labs Labs: 08/20/17 05:35 08/21/17 05:55 PT 13.2 Seconds (9.8-13.1) H 08/07/17 14:20 INR 1.2 (0.9-1.2) 08/07/17 14:20 APTT 39.1 Seconds (25.6-37.1) H 07/22/17 05:20 - Head Exam Head Exam: ATRAUMATIC - Eye Exam Eye Exam: Normal appearance - ENT Exam ENT Exam: Mucous Membranes Dry - Respiratory Exam Respiratory Exam: NORMAL BREATHING PATTERN - Cardiovascular Exam Cardiovascular Exam: +S1, +S2 - GI/Abdominal Exam GI & Abdominal Exam: Normal Bowel Sounds Assessment and Plan (1) Pancytopenia Assessment & Plan: mild leukopenia anemia of chronic disease; was on Procrit, now stopped due to rise in H/H s/p transfusion support plt count slightly diminished Status: Acute
[2019-08-17] MEDS ORDERED: [UNRECOGNIZED DRUG - NUTRITION] IV ONE
== END 2017-08-21 18:45 | DRG 853 ==
LOC: H.ER 14:37 → H.ERHOLD 23:30 → H.ICU/CCU 07-08 01:31 → H.MEDSURG1 07-31 21:23
PROVIDERS: ADMIT Family Medicine; ATTEND Family Medicine
PROC: 0DQA0ZZ Repair Jejunum, Open Approach (ICD-10-PCS; 2017-07-08)
PROC: 0W9G0ZZ Drainage of Peritoneal Cavity, Open Approach (ICD-10-PCS; 2017-07-08)
PROC: 0W9G00Z Drainage of Peritoneal Cavity with Drainage Device, Open Approach (ICD-10-PCS; 2017-07-08)
PROC: 05HM33Z Insertion of Infusion Device into Right Internal Jugular Vein, Percutaneous Approach (ICD-10-PCS; 2017-07-08)
PROC: 0DT80ZZ Resection of Small Intestine, Open Approach (ICD-10-PCS; 2017-07-08)
PROC: 0DN80ZZ Release Small Intestine, Open Approach (ICD-10-PCS; 2017-07-08 09:00)
PROC: 0W9J30Z Drainage of Pelvic Cavity with Drainage Device, Percutaneous Approach (ICD-10-PCS; 2017-07-08 09:00)
PROC: 3E0T3BZ Introduction of Anesthetic Agent into Peripheral Nerves and Plexi, Percutaneous Approach (ICD-10-PCS; 2017-07-08 09:00)
PROC: 3E0234Z Introduction of Serum, Toxoid and Vaccine into Muscle, Percutaneous Approach (ICD-10-PCS; principal; 2017-07-09)
PROC: 6A551Z2 Pheresis of Platelets, Multiple (ICD-10-PCS; 2017-07-23)
PROC: 02HV33Z Insertion of Infusion Device into Superior Vena Cava, Percutaneous Approach (ICD-10-PCS; 2017-07-24)
PROC: 3E0436Z Introduction of Nutritional Substance into Central Vein, Percutaneous Approach (ICD-10-PCS; 2017-07-24)
PROC: 30233N1 Transfusion of Nonautologous Red Blood Cells into Peripheral Vein, Percutaneous Approach (ICD-10-PCS; 2017-07-26)
PROC: 02HV33Z Insertion of Infusion Device into Superior Vena Cava, Percutaneous Approach (ICD-10-PCS; 2017-08-17)
DX: A41.9 Sepsis, unspecified organism (principal); K63.1 Perforation of intestine (nontraumatic); K65.1 Peritoneal abscess; G93.41 Metabolic encephalopathy; J95.2 Acute pulmonary insufficiency following nonthoracic surgery; R65.21 Severe sepsis with septic shock; E43 Unspecified severe protein-calorie malnutrition; D61.818 Other pancytopenia; F05 Delirium due to known physiological condition; K63.2 Fistula of intestine; I47.1 Supraventricular tachycardia; B19.10 Unspecified viral hepatitis B without hepatic coma; K56.7 Ileus, unspecified; K91.89 Other postprocedural complications and disorders of digestive system; F03.90 Unspecified dementia, unspecified severity, without behavioral disturbance, psychotic disturbance, mood disturbance, and anxiety; Z23 Encounter for immunization; Z86.718 Personal history of other venous thrombosis and embolism; Z87.891 Personal history of nicotine dependence; G89.29 Other chronic pain; M06.9 Rheumatoid arthritis, unspecified; K66.0 Peritoneal adhesions (postprocedural) (postinfection); E86.1 Hypovolemia; J44.9 Chronic obstructive pulmonary disease, unspecified; I10 Essential (primary) hypertension; I48.2 Chronic atrial fibrillation; D63.8 Anemia in other chronic diseases classified elsewhere; E87.6 Hypokalemia; Y83.6 Removal of other organ (partial) (total) as the cause of abnormal reaction of the patient, or of later complication, without mention of misadventure at the time of the procedure; R33.9 Retention of urine, unspecified; E83.39 Other disorders of phosphorus metabolism; Z66 Do not resuscitate

== ENCOUNTER 2018-02-19 14:54 | Inpatient (IN) | payer MEDICAID, MEDICARE ==
[2018-02-19 14:54] VITALS: PULSE 122; BMI 18.1
[2018-02-19] MEDS ORDERED: Sodium Chloride 0.9% 1,000 ML IV STA (15:14)
--- NOTE | 2018-02-19 15:17 | ED PDOC ---
HPI: Abdomen Time Seen by Provider: 02/19/18 15:06 Chief Complaint (Nursing): Abdominal Pain History Per: Patient Onset/Duration Of Symptoms: Other (7 months) Current Symptoms Are (Timing): Still Present Quality Of Discomfort: Unable To Describe Associated Symptoms: denies: Fever, Nausea, Vomiting Exacerbating Factors: None Alleviating Factors: None Additional Complaint(s): Non healing abd wound since June 2017. Admitted here at that time for perforated viscus and sepsis. Denies vomiting fever or diarrhea. Has noted yellow thick discharge. Past Medical History Vital Signs: Last Vital Signs Temp 96.8 F L 02/19/18 14:57 Pulse 96 H 02/19/18 14:57 Resp 16 02/19/18 14:57 BP 82/56 L 02/19/18 14:57 Pulse Ox 95 02/19/18 14:57 - Medical History PMH: Arthritis, Atrial Fibrillation, Back Problems, COPD, Deep Vein Thrombosis, Fractures, HTN, Pneumonia, Rheumatoid Arthritis Denies: HIV, Chronic Kidney Disease - Surgical History Surgical History: Back Surgery, Cholecystectomy - Family History Family History: States: Unknown Family Hx - Home Medications Home Medications: Ambulatory Orders Medication Instructions Recorded Fluticasone/Salmeterol [Advair 1 puff NEB BID 07/07/17 250-50 Diskus] Acetaminophen [Tylenol 325mg tab] 650 mg PO Q4 PRN tab 08/21/17 Bisacodyl [Dulcolax] 10 mg MO DAILY PRN sup 08/21/17 Cyanocobalamin [Vitamin B12 1000 1,000 mcg PO DAILY tab 08/21/17 mcg Tab] Cyclobenzaprine [Flexeril] 10 mg PO Q12 tab 08/21/17 Fat Emulsion 20% IV [Intralipid 250 ml IV DAILY bag 08/21/17 20%] Ferrous Sulfate [Feosol Liq] 300 mg PO BID udc 08/21/17 Fluconazole [Diflucan] 100 mg PO DAILY tab 08/21/17 LORazepam [Ativan] 0.5 mg IVP Q6 PRN vial 08/21/17 Lidocaine 5% [Lidoderm] 1 ea TD DAILY patch 08/21/17 guaiFENesin/Dextromethorphan 10 ml PO Q6 PRN udc 08/21/17 [Robitussin DM] lamiVUDine [Epivir] 150 mg PO DAILY tab 08/21/17 traMADol [Ultram] 50 mg PO Q12 PRN tab 08/21/17 - Allergies Allergies/Adverse Reactions: Allergies Allergy/AdvReac Type Severity Reaction Status Date / Time No Known Allergies Allergy Verified 02/19/18 14:57 Review of Systems ROS Statement: Except As Marked, All Systems Reviewed And Found Negative Gastrointestinal: Positive for: Abdominal Pain Physical Exam - Reviewed Nursing Documentation Reviewed: Yes Vital Signs Reviewed: Yes - Physical Exam Appears: Positive for: Non-toxic, No Acute Distress Head Exam: Positive for: ATRAUMATIC, NORMAL INSPECTION, NORMOCEPHALIC Skin: Positive for: Normal Color, Warm, DRY Eye Exam: Positive for: EOMI, Normal appearance, PERRL ENT: Positive for: Normal ENT Inspection Neck: Positive for: Normal, Painless ROM Cardiovascular/Chest: Positive for: Irregularly Irregular Respiratory: Positive for: Decreased Breath Sounds, Rhonchi. Negative for: Respiratory Distress Gastrointestinal/Abdominal: Positive for: Soft, Tenderness, Other (3cm open wound epigastric area draining yellow thick secretions) Back: Positive for: Normal Inspection Extremity: Positive for: Normal ROM Neurologic/Psych: Positive for: Alert, Oriented - Laboratory Results Result Diagrams: 02/19/18 16:50 02/19/18 16:50 - ECG O2 Sat by Pulse Oximetry: 95 Disposition - Clinical Impression Clinical Impression: Abdominal discomfort - Patient ED Disposition Is Patient to be Admitted: Transfer of Care - Disposition Disposition: Transfer of Care Disposition Time: 18:57 Condition: FAIR Forms: [facility] (Korean) Patient Signed Over To: Ami Sanchez
[2018-02-19 16:40] LABS: VENOUS BLOOD GAS PCO2 43 mmHg (40-60); VENOUS BLOOD GAS PO2 14 mm/Hg (30-55); VENOUS BLOOD PH 7.35 (7.32-7.43)
[2018-02-19 16:55] LABS: BASO # 0.1 K/uL (0.0-0.2); BASO % 1.2 % (0.0-2.0); EOS # 0.2 K/uL (0.0-0.7); EOS % 3.8 % (0.0-4.0); HEMOGLOBIN 12.4 g/dL (12.0-18.0); LYMPH # 1.1 K/uL (1.0-4.3); LYMPH % 19.9 % (20.0-40.0); MEAN CELL VOLUME 98.7 fl (80.0-94.0); MEAN CORPUSCULAR HEMOGLOBIN 33.8 pg (27.0-31.0); MEAN CORPUSCULAR HGB CONC 34.3 g/dL (33.0-37.0); MEAN PLATELET VOLUME 8.3 fl (7.2-11.7); MONO # 0.4 K/uL (0.0-0.8); MONO % 6.9 % (0.0-10.0); NEUT # 3.6 K/uL (1.8-7.0); NEUT % 68.2 % (50.0-75.0); NRBC % 0.2 % (0.0-0.0); RBC 3.66 Mil/uL (4.40-5.90); RED CELL DISTRIBUTION WIDTH 18.9 % (11.5-14.5); WHITE BLOOD COUNT 5.3 K/uL (4.8-10.8)
[2018-02-19 17:05] LABS: BLOOD UREA NITROGEN 23 mg/dl (9-20); CALCIUM 8.3 mg/dL (8.4-10.2); GFR NON-AFRICAN AMERICAN > 60
[2018-02-19] MEDS ORDERED: Iohexol 300 100 ML IJ ONE (17:13)
[2018-02-19] MEDS ORDERED: Iohexol 240 (50 ml) PO ONE (17:13)
[2018-02-19] MEDS ORDERED: Sodium Chloride 0.9% 50 ML IV ONE (17:14)
[2018-02-19] MEDS ORDERED: Iohexol 240 (50 ml) ONE (17:18)
[2018-02-19 17:30] LABS: ALB/GLOB RATIO 0.6 (1.0-2.1); ALT/SGPT 35 U/L (21-72); AST/SGOT 71 U/L (17-59)
--- NOTE | 2018-02-19 21:55 | ED PDOC ---
- Laboratory Results Result Diagrams: 02/21/18 05:40 02/21/18 05:40 - ECG O2 Sat by Pulse Oximetry: 97 (RA) Pulse Ox Interpretation: Normal Medical Decision Making Medical Decision Making: Time: 1899 Patient signed out to me by Dr. Chatmna pending reevaluation. i reevaluated pt. Time: 1957 Exam: CT-Abdomen and Pelvis Impression: Moderate sized left pleural effusion with scarring of the left lung base. Small pericardial effusion. Posturgical changes lower mediastinum. Gallbladder surgically removed. Pneumobilia. Atrophic pancreas with dilated pancreatic duct. Pancreatic calcification suspected. Advanced atherosclerotic changes. Postsurgical changes along the anterior abdominal wall. A bilateral renal cysts. IVC filter. Small amount of free fluid within the abdomen and pelvis. Multiple fluid-filled distended loops of large bowel at the right side of the abdomen and mid abdomen. Bilateral hip prostheses. Moderate compression d eformity of the L1 vertebral body. Clinical correlation advised. Time: [address] 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 Worthy, the surgeon who had performed original surgery on this patient. antibiotics ordered Scribe Attestation: Documented by Rosa Oswald, acting as a scribe for Ami Sanchez MD. Provider Scribe Attestation: All medical record entries made by the Scribe were at my direction and perso jerry dictated by me. I have reviewed the chart and agree that the record accurately reflects my personal performance of the history, physical exam, medical decision making, and the department course for this patient. I have also personally directed, reviewed, and agree with the discharge instructions and disposition. Disposition - Clinical Impression Clinical Impression: Abdominal discomfort - POA Present On Arrival: None - Disposition Disposition: Admitted as In-Patient Disposition Time: 19:59 Condition: FAIR
--- NOTE | 2018-02-20 02:00 | CP.PCM.CON ---
<Ricky Lazo - Last Filed: 02/20/18 04:19> History of Present Illness - History of Present Illness History of Present Illness: Surgery: Dr. Worthy CC: Abd pain HPI: 73M w. hx of perforated viscous in June 2017 requiring ex-lap w. small bowel resection presents to ED with new onset sharp intermittent abd pain. Pt denies any changes in appetite. Denies N/V. He states that he has been experiencing decreased flatus and he has not had BM in several days despite taking daily laxative. He denies F/C. He has been having drainage from his midline abd. He states that this has been going on for "quite some time." The drainage is foul smelling. 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 "Ex Lap for removal of non-malignant tumor resection in stomach many years ago" Back surgery. Bilateral Hip surgeries. IVC filter Meds: MAR reviewed NKDA Family Hx: non-contributory Social Hx: Previous heavy ETOH use, last reported use 1986. Prior heavy tobacco use. No illicit drugs. Lives alone Review of Systems - Review of Systems All systems: reviewed and no additional remarkable complaints except (hpi) Past Patient History - Infectious Disease Hx of Infectious Diseases: None - Tetanus Immunizations Tetanus Immunization: Unknown - Past Medical History & Family History Past Medical History?: Yes - Past Social History Smoking Status: Former Smoker - CARDIAC Hx Cardiac Disorders: Yes - PULMONARY Hx Respiratory Disorders: Yes - NEUROLOGICAL Hx Neurological Disorder: Yes - HEENT Hx HEENT Problems: Yes Other/Comment: Glasses - RENAL Hx Chronic Kidney Disease: No - ENDOCRINE/METABOLIC Hx Endocrine Disorders: No - HEMATOLOGICAL/ONCOLOGICAL Hx Blood Disorders: Yes - INTEGUMENTARY Hx Dermatological Problems: Yes - MUSCULOSKELETAL/RHEUMATOLOGICAL Hx Musculoskeletal Disorders: Yes - GASTROINTESTINAL Hx Gastrointestinal Disorders: Yes Hx Ulcer: Yes - GENITOURINARY/GYNECOLOGICAL Hx Genitourinary Disorders: Yes - PSYCHIATRIC Hx Psychophysiologic Disorder: No Hx Substance Use: No - SURGICAL HISTORY Hx Cholecystectomy: Yes - ANESTHESIA Hx Anesthesia: Yes Hx Anesthesia Reactions: No Hx Malignant Hyperthermia: No Meds Allergies/Adverse Reactions: Allergies Allergy/AdvReac Type Severity Reaction Status Date / Time No Known Allergies Allergy Verified 02/19/18 14:57 Physical Exam - Constitutional Appears: Non-toxic, Older Than Stated Age, Cachectic - Head Exam Head Exam: ATRAUMATIC, NORMOCEPHALIC - Eye Exam Eye Exam: EOMI - ENT Exam ENT Exam: Mucous Membranes Moist - Neck Exam Neck exam: Positive for: Full Rom - Respiratory Exam Respiratory Exam: NORMAL BREATHING PATTERN. absent: Accessory Muscle Use, Respiratory Distress - GI/Abdominal Exam GI & Abdominal Exam: Soft, Tenderness (mild, diffuse). absent: Distended, Firm, Guarding, Rebound, Rigid Additional comments: +midline enterocutaneous fistula, foul smelling output, output looks like mixture of stool and urine - Extremities Exam Extremities exam: Negative for: calf tenderness, pedal edema - Neurological Exam Neurological exam: Alert, Oriented x3 Results - Vital Signs Recent Vital Signs: Last Vital Signs Temp 97.4 F L 02/19/18 22:34 Pulse 75 02/19/18 22:34 Resp 14 02/19/18 22:34 BP 120/61 02/19/18 22:34 Pulse Ox 97 02/19/18 22:52 - Labs Result Diagrams: 02/19/18 16:50 02/19/18 16:50 Labs: Laboratory Results - last 24 hr 02/19/18 02/19/18 02/19/18 16:37 16:50 16:50 WBC 5.3 D RBC 3.66 L Hgb 12.4 Hct 36.1 MCV 98.7 H MCH 33.8 H MCHC 34.3 RDW 18.9 H Plt Count 195 MPV 8.3 Neut % (Auto) 68.2 Lymph % (Auto) 19.9 L [place] % (Auto) 6.9 Eos % (Auto) 3.8 Baso % (Auto) 1.2 Neut # (Auto) 3.6 Lymph # (Auto) 1.1 [place] # (Auto) 0.4 Eos # (Auto) 0.2 Baso # (Auto) 0.1 pO2 14 L VBG pH 7.35 VBG pCO2 43 VBG HCO3 21.1 VBG Total CO2 25.0 VBG O2 Sat (Calc) 23.2 L VBG Base Excess -2.0 L VBG Potassium 3.5 L Sodium 132.0 135 Chloride 105.0 109 H Glucose 114 H Lactate 1.5 FiO2 21.0 Potassium 4.6 Carbon Dioxide 23 Anion Gap 8 L BUN 23 H Creatinine 1.1 Est GFR ( Amer) > 60 Est GFR (Non-Af Amer) > 60 Random Glucose 111 H Calcium 8.3 L Total Bilirubin 4.1 H AST 71 H D ALT 35 Alkaline Phosphatase 424 H D Total Protein 8.2 Albumin 3.0 L D Globulin 5.2 H Albumin/Globulin Ratio 0.6 L Venous Blood Potassium 3.5 L - Imaging and Cardiology CT scan - abdomen Status: Image reviewed by me, Report reviewed by me Assessment & Plan - Assessment and Plan (Free Text) Assessment: 73M w. hx of ex-lap s/p small bowel resection, now presenting w. abd pain with enterocutaneous fistula, r/o PSBO -NPO -IVF -local wound care -Pain meds -serial abd exams -d/w attending Violet PGY4 <Mook Worthy - Last Filed: 03/03/18 16:05> Meds - Medications Medications: Current Medications Enoxaparin Sodium (Lovenox) 40 mg SC DAILY [facility]; Protocol Last Admin: 03/03/18 09:21 Dose: 40 mg Meropenem 1 gm/ Sodium (Chloride) 100 mls @ 100 mls/hr IVPB Q8 [facility]; Protocol Last Admin: 03/03/18 09:21 Dose: 100 mls/hr Morphine Sulfate (Morphine) 2 mg IVP Q6 PRN PRN Reason: Pain, severe (8-10) Last Admin: 03/03/18 12:53 Dose: 2 mg Ondansetron HCl (Zofran Inj) 4 mg IVP Q4 PRN PRN Reason: Nausea/Vomiting Pantoprazole Sodium (Protonix Inj) 40 mg IVP DAILY [facility] Last Admin: 03/03/18 09:22 Dose: 40 mg Sennosides (Senokot Tab) 8.6 mg PO BID [facility] Last Admin: 03/03/18 09:22 Dose: 8.6 mg Sodium Phosphate (Fleet Enema) 135 ml [place] DAILY [facility] Last Admin: 03/02/18 10:14 Dose: 135 ml Tamsulosin HCl (Flomax) 0.4 mg PO DAILY [facility] Last Admin: 03/03/18 09:22 Dose: 0.4 mg Results - Vital Signs Recent Vital Signs: Last Vital Signs Temp 97.5 F L 03/03/18 07:55 Pulse 79 03/03/18 07:55 Resp 19 03/03/18 07:55 BP 105/71 03/03/18 07:55 Pulse Ox 96 03/03/18 07:55 - Labs Result Diagrams: 03/03/18 05:30 03/03/18 05:30 Labs: Laboratory Results - last 24 hr 03/03/18 03/03/18 05:30 05:30 WBC 5.4 RBC 3.47 L Hgb 11.6 L Hct 34.6 L MCV 99.8 H MCH 33.5 H MCHC 33.5 RDW 18.4 H Plt Count 134 Sodium 138 Potassium 4.3 Chloride 105 Carbon Dioxide 28 Anion Gap 9 L BUN 23 H Creatinine 0.7 L Est GFR ( Amer) > 60 Est GFR (Non-Af Amer) > 60 Random Glucose 92 Calcium 8.0 L Total Bilirubin 2.1 H AST 41 ALT 50 Alkaline Phosphatase 214 H Total Protein 6.7 Albumin 2.4 L Globulin 4.3 H Albumin/Globulin Ratio 0.5 L Attending/Attestation - Attestation I have personally seen and examined this patient.: Yes I have fully participated in the care of the patient.: Yes I have reviewed all pertinent clinical information: Yes Notes (Text): Pt was seen and examined at bedside Agree with above note and assessment 73 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 Labs and Radiology reviewed Ass: Ileus, EC fistula Plan: IV antibiotic NPO, IVF Local wound care Wound care consult US of Liver Repeat Labs in am We will f.u Plan d.w pt in detail. Risk and benefit explained in detail.
[2018-02-20] MEDS: Sodium Chloride 0.9% 1,000 ML IV SCH ×2 (05:13→14:36)
[2018-02-20] MEDS ORDERED: Influenza Vaccine (5 YR UP)/PF 60 MCG/0.5 ML SYR IM ONE (06:00)
--- NOTE | 2018-02-20 08:05 | CP.PCM.HP ---
History of Present Illness - History of Present Illness History of Present Illness: Case seen and examined with Dr Anton 73 yo M with PMH of perforated viscous in June 2017 s/p exploratory lap with small bowel resection presents to ED with new onset sharp intermittent abdominal pain for the last week. He states that he has been experiencing decreased flatus and he has not had BM in several days despite taking daily laxative. Patient has open abdominal wound and has been having foul smelling drainage from the wound. He states that this has been going on for "quite some time". Otherwise he states good appetite, denies nausea, vomiting, recents fever, diarrhea or constipation. No urinary symptoms PMHx: HTN, A.Fib, COPD, Arthritis, DVT. 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 Bilateral Hip surgeries. IVC filter Meds: as bellow NKDA Family Hx: non-contributory Social Hx: Previous heavy ETOH use, last reported use 1986. Prior heavy tobacco use. No illicit drugs. Lives alone Present on Admission - Present on Admission Any Indicators Present on Admission: No Review of Systems - Review of Systems All systems: reviewed and no additional remarkable complaints except (HPI) Past Patient History - Infectious Disease Hx of Infectious Diseases: None - Tetanus Immunizations Tetanus Immunization: Unknown - Past Medical History & Family History Past Medical History?: Yes - Past Social History Smoking Status: Former Smoker - CARDIAC Hx Cardiac Disorders: Yes - PULMONARY Hx Respiratory Disorders: Yes - NEUROLOGICAL Hx Neurological Disorder: Yes - HEENT Hx HEENT Problems: Yes Other/Comment: Glasses - RENAL Hx Chronic Kidney Disease: No - ENDOCRINE/METABOLIC Hx Endocrine Disorders: No - HEMATOLOGICAL/ONCOLOGICAL Hx Blood Disorders: Yes - INTEGUMENTARY Hx Dermatological Problems: Yes - MUSCULOSKELETAL/RHEUMATOLOGICAL Hx Musculoskeletal Disorders: Yes - GASTROINTESTINAL Hx Gastrointestinal Disorders: Yes Hx Ulcer: Yes - GENITOURINARY/GYNECOLOGICAL Hx Genitourinary Disorders: Yes - PSYCHIATRIC Hx Psychophysiologic Disorder: No Hx Substance Use: No - SURGICAL HISTORY Hx Cholecystectomy: Yes - ANESTHESIA Hx Anesthesia: Yes Hx Anesthesia Reactions: No Hx Malignant Hyperthermia: No Meds Allergies/Adverse Reactions: Allergies Allergy/AdvReac Type Severity Reaction Status Date / Time No Known Allergies Allergy Verified 02/19/18 14:57 Physical Exam - Constitutional Appears: No Acute Distress, Cachectic - Head Exam Head Exam: NORMAL INSPECTION - Eye Exam Eye Exam: EOMI, PERRL - Respiratory Exam Respiratory Exam: Clear to Auscultation Bilateral - Cardiovascular Exam Cardiovascular Exam: REGULAR RHYTHM, +S1, +S2 - GI/Abdominal Exam GI & Abdominal Exam: Soft, Tenderness (diffuse). 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, output seems like mixture of stool and urine, dressing noted soaked - Extremities Exam Extremities exam: Negative for: calf tenderness - Neurological Exam Additional comments: Lethargic - Skin Skin Exam: Dry, Warm Results - Vital Signs Recent Vital Signs: Last Vital Signs Temp 97.6 F 02/20/18 08:04 Pulse 76 02/20/18 08:04 Resp 18 02/20/18 08:04 BP 98/64 L 02/20/18 08:04 Pulse Ox 96 02/20/18 08:04 - Labs Result Diagrams: 02/19/18 16:50 02/19/18 16:50 Labs: Laboratory Results - last 24 hr 02/19/18 02/19/18 02/19/18 16:37 16:50 16:50 WBC 5.3 D RBC 3.66 L Hgb 12.4 Hct 36.1 MCV 98.7 H MCH 33.8 H MCHC 34.3 RDW 18.9 H Plt Count 195 MPV 8.3 Neut % (Auto) 68.2 Lymph % (Auto) 19.9 L Brooks % (Auto) 6.9 Eos % (Auto) 3.8 Baso % (Auto) 1.2 Neut # (Auto) 3.6 Lymph # (Auto) 1.1 Brooks # (Auto) 0.4 Eos # (Auto) 0.2 Baso # (Auto) 0.1 pO2 14 L VBG pH 7.35 VBG pCO2 43 VBG HCO3 21.1 VBG Total CO2 25.0 VBG O2 Sat (Calc) 23.2 L VBG Base Excess -2.0 L VBG Potassium 3.5 L Sodium 132.0 135 Chloride 105.0 109 H Glucose 114 H Lactate 1.5 FiO2 21.0 Potassium 4.6 Carbon Dioxide 23 Anion Gap 8 L BUN 23 H Creatinine 1.1 Est GFR ( Amer) > 60 Est GFR (Non-Af Amer) > 60 Random Glucose 111 H Calcium 8.3 L Total Bilirubin 4.1 H AST 71 H D ALT 35 Alkaline Phosphatase 424 H D Total Protein 8.2 Albumin 3.0 L D Globulin 5.2 H Albumin/Globulin Ratio 0.6 L Venous Blood Potassium 3.5 L Assessment & Plan - Assessment and Plan (Free Text) Assessment: 73 yo male patient with hx of s/p small bowel resection admitted with abdominal pain and enterocutaneous fistula, r/o PSBO Plan: - VSS, afebrile, WBC wnl - Abd CT f/u official report - NPO - IVF - Surgery consulted, input appreciated - local wound care - Pain management - start zosyn IV - f/u labs and cultures in am - serial abd exams - continue home meds - rest of plan as ordered
--- NOTE | 2018-02-20 11:04 | CT ---
Date of service: 02/19/2018 PROCEDURE: CT Abdomen and Pelvis with contrast HISTORY: Abdominal pain. COMPARISON: 08/02/2017. CT abdomen and pelvis TECHNIQUE: Intravenous contrast dose: 90 cc Omnipaque 300 Radiation dose: Total exam DLP = 296.82 mGy-cm. This CT exam was performed using one or more of the following dose reduction techniques: Automated exposure control, adjustment of the mA and/or kV according to patient size, and/or use of iterative reconstruction technique. FINDINGS: LOWER THORAX: Resolution of right pleural effusion. Decrease in left pleural effusion. LIVER: Hepatic steatosis. No focal masses. No intrahepatic bile duct dilatation or perihepatic ascites. Patent portal venous system. Pneumobilia a new finding compared to the prior study. GALLBLADDER AND BILE DUCTS: Status post cholecystectomy. No abnormality is seen in the gallbladder fossa. PANCREAS: Evidence of chronic pancreatitis, stable finding. No superimposed manifestations of acute pancreatitis. SPLEEN: Unremarkable. ADRENALS: Unremarkable. No mass. KIDNEYS AND URETERS: Unremarkable. No hydronephrosis. No solid mass. Incidental finding(s): Innumerable the preponderance of which less than 1 cm renal cysts. VASCULATURE: Atherosclerotic calcification and mural plaque present. Findings are seen throughout the aorta . No aortic aneurysm. Stable position of IVC filter. BOWEL: Anterior abdominal wall postoperative changes as well as findings to suggest resection of portions of the bowel. Similar findings identified on the previous study Persistent dilatation of right genesis colon similar findings identified on the prior study. APPENDIX: Normal appendix. PERITONEUM: Unremarkable. No free fluid. No free air. LYMPH NODES: Unremarkable. No enlarged lymph nodes. BLADDER: Nondiagnostic study of the urinary bladder. Streak artifact from adjacent tip prostheses. There is a suggestion of debris and air within the bladder, finding that should be viewed with caution based on the degree of artifact. REPRODUCTIVE: Unremarkable. BONES: No acute fracture. Stable compression deformity L1. OTHER FINDINGS: Postoperative changes in the anterior abdominal wall appear to communicate with the peritoneum with focal collection of air interposed between the liver and the stomach. This represents a stable finding noted 08/16/2017. IMPRESSION: Extensive postoperative findings as described. Pneumobilia, a new finding compared to the prior study. Substantial decrease in left pleural effusion, resolution right pleural effusion. Concordant results (preliminary interpretation) provided by ANTONI LOPEZ. Procedure Completed: 20:03 Preliminary Report: Dictated and Authenticated: 21:22. Final Interpretation: 10:55. February 20, 2018
[2018-02-20] MEDS: Enoxaparin 40 mg Syringe SC SCH (13:30)
[2018-02-20 14:49] LABS: SQUAMOUS EPITHIAL < 1 /hpf (0-5); URINE BACTERIA FEW (<OCC); URINE BILIRUBIN NEGATIVE (NEGATIVE); URINE BLOOD LARGE (NEGATIVE); URINE CLARITY CLOUDY (Clear); URINE COLOR AMBER (YELLOW); URINE GLUCOSE (UA) NEG (Normal); URINE LEUKOCYTE ESTERASE MOD Leu/uL (Negative); URINE PROTEIN 100 mg/dL (NEGATIVE); URINE UROBILINOGEN 0.2-1.0 mg/dL (0.2-1.0)
[2018-02-20] MEDS: Piperacillin/Tazobact 3.375 GM in Sodium Chloride 0.9% 100 ML IVPB SCH ×2 (16:07→21:25)
[2018-02-21] MEDS: Sodium Chloride 0.9% 1,000 ML IV SCH (02:02)
[2018-02-21] MEDS: Piperacillin/Tazobact 3.375 GM in Sodium Chloride 0.9% 100 ML IVPB SCH ×5 (04:06→21:53)
[2018-02-21 06:47] LABS: ALB/GLOB RATIO 1.1 (1.0-2.1); ALBUMIN 3.8 g/dL (3.5-5.0); ALT/SGPT 65 U/L (21-72); AST/SGOT 62 U/L (17-59); CALCIUM 9.4 mg/dL (8.4-10.2); GFR NON-AFRICAN AMERICAN > 60
[2018-02-21 07:03] LABS: BLOOD UREA NITROGEN 15 mg/dl (9-20)
[2018-02-21 07:21] LABS: BASO % 0.7 % (0.0-2.0); EOS # 0.3 K/uL (0.0-0.7); EOS % 5.2 % (0.0-4.0); HEMOGLOBIN 13.3 g/dL (12.0-18.0); LYMPH # 0.8 K/uL (1.0-4.3); LYMPH % 13.8 % (20.0-40.0); MEAN CELL VOLUME 92.4 fl (80.0-94.0); MEAN CORPUSCULAR HEMOGLOBIN 30.7 pg (27.0-31.0); MEAN CORPUSCULAR HGB CONC 33.3 g/dL (33.0-37.0); MEAN PLATELET VOLUME 9.1 fl (7.2-11.7); MONO % 16.3 % (0.0-10.0); NEUT # 3.9 K/uL (1.8-7.0); NRBC % 0.1 % (0.0-0.0); RBC 4.33 Mil/uL (4.40-5.90); RED CELL DISTRIBUTION WIDTH 14.8 % (11.5-14.5); WHITE BLOOD COUNT 6.1 K/uL (4.8-10.8)
--- NOTE | 2018-02-21 08:25 | CP.PCM.PN ---
<Ricky Lazo - Last Filed: 02/21/18 08:34> Subjective - Date & Time of Evaluation Date of Evaluation: 02/21/18 Time of Evaluation: 08:20 - Subjective Subjective: Surgery: Dr. Worthy Pt seen and examined. No acute events overnight. Pt has complaints of generalized malaise and fatigue. He is tolerating CLD. He states that he is hungry and would like to eat more. No BM. Objective - Vital Signs/Intake and Output Vital Signs (last 24 hours): Temp Pulse Resp BP Pulse Ox 97.3 F L 73 18 98/63 L 95 02/21/18 00:15 02/21/18 00:15 02/21/18 00:15 02/21/18 00:15 02/20/18 15:51 - Medications Medications: Current Medications Enoxaparin Sodium (Lovenox) 40 mg SC DAILY [facility]; Protocol Last Admin: 02/20/18 13:30 Dose: 40 mg Piperacillin Sod/Tazobactam (Sod 3.375 gm/ Sodium Chloride) 100 mls @ 100 mls/hr IVPB Q6 [facility]; Protocol Last Admin: 02/21/18 04:06 Dose: 100 mls/hr Morphine Sulfate (Morphine) 4 mg IVP Q4 PRN PRN Reason: Pain, moderate (4-7) Last Admin: 02/21/18 06:17 Dose: 4 mg Pantoprazole Sodium (Protonix Inj) 40 mg IVP DAILY [facility] Last Admin: 02/20/18 13:32 Dose: 40 mg Sennosides (Senokot Tab) 8.6 mg PO BID [facility] Last Admin: 02/20/18 16:07 Dose: Not Given - Labs Labs: 02/21/18 05:40 02/21/18 05:40 - Constitutional Appears: Non-toxic, No Acute Distress, Older Than Stated Age, Cachectic, Chronically Ill - Head Exam Head Exam: ATRAUMATIC, NORMOCEPHALIC - Eye Exam Eye Exam: EOMI - ENT Exam ENT Exam: Mucous Membranes Moist - Neck Exam Neck Exam: Full ROM - Respiratory Exam Respiratory Exam: NORMAL BREATHING PATTERN. absent: Accessory Muscle Use, Respiratory Distress - GI/Abdominal Exam GI & Abdominal Exam: Soft. absent: Distended, Firm, Guarding, Rigid, Tenderness, Rebound Additional comments: Midline fistula w. foul smelling yellow/brown liquid output - Extremities Exam Extremities Exam: absent: Calf Tenderness, Pedal Edema - Neurological Exam Neurological Exam: Alert, Awake, Oriented x3 Assessment and Plan - Assessment and Plan (Free Text) Assessment: 73M w. hx of ex-lap s/p small bowel resection, now presenting w. abd pain with enterocutaneous fistula, r/o PSBO -Tbili trending down, will f/u results of U/S -continue w. local wound care for fistula -CLD for now, will d/w attending possibly advancing diet this afternoon -Air mattress -DVT ppx Zemaitis PGY4 <Mook Worthy B - Last Filed: 03/03/18 16:08> Objective - Vital Signs/Intake and Output Vital Signs (last 24 hours): Temp Pulse Resp BP Pulse Ox 97.5 F L 79 19 105/71 96 03/03/18 07:55 03/03/18 07:55 03/03/18 07:55 03/03/18 07:55 03/03/18 07:55 - Medications Medications: Current Medications Enoxaparin Sodium (Lovenox) 40 mg SC DAILY [facility]; Protocol Last Admin: 03/03/18 09:21 Dose: 40 mg Meropenem 1 gm/ Sodium (Chloride) 100 mls @ 100 mls/hr IVPB Q8 [facility]; Protocol Last Admin: 03/03/18 09:21 Dose: 100 mls/hr Morphine Sulfate (Morphine) 2 mg IVP Q6 PRN PRN Reason: Pain, severe (8-10) Last Admin: 03/03/18 12:53 Dose: 2 mg Ondansetron HCl (Zofran Inj) 4 mg IVP Q4 PRN PRN Reason: Nausea/Vomiting Pantoprazole Sodium (Protonix Inj) 40 mg IVP DAILY [facility] Last Admin: 03/03/18 09:22 Dose: 40 mg Sennosides (Senokot Tab) 8.6 mg PO BID [facility] Last Admin: 03/03/18 09:22 Dose: 8.6 mg Sodium Phosphate (Fleet Enema) 135 ml [place] DAILY [facility] Last Admin: 03/02/18 10:14 Dose: 135 ml Tamsulosin HCl (Flomax) 0.4 mg PO DAILY [facility] Last Admin: 03/03/18 09:22 Dose: 0.4 mg - Labs Labs: 03/03/18 05:30 03/03/18 05:30 Attending/Attestation - Attestation I have personally seen and examined this patient.: Yes I have fully participated in the care of the patient.: Yes I have reviewed all pertinent clinical information, including history, physical exam and plan: Yes Notes (Text): Pt was seen and examined at bedside Agree with above note and assessment Pt with EC fistula and resolving abdominal pain Pt is passing gas, no BM LFTs are improving Start liquid diet Local wound care Plan d.w primary team in detail.
[2018-02-21] MEDS: Enoxaparin 40 mg Syringe SC SCH (10:19)
--- NOTE | 2018-02-21 11:17 | US ---
Date of service: 02/21/2018 PROCEDURE: Abdominal ultrasound, limited HISTORY: Elevated bilirubin Abdominal pain and elevated bilirubin COMPARISON: 02/19/2018. CT abdomen and pelvis TECHNIQUE: Standard protocol for this study/examination. FINDINGS: LIVER: Limited, nondiagnostic study in the assessment of the liver, pancreas, aorta. Common bile duct is not visible. Unremarkable spleen. Unremarkable right kidney. Cysts identified on the CT scan are barely visible. Unremarkable left kidney with the exception of renal cysts. Incidental finding(s): Left pleural effusion. IMPRESSION: With the exception of the kidneys, the study is nondiagnostic in the assessment of the hepatobiliary system.
--- NOTE | 2018-02-21 13:57 | PN ---
DATE: 02/21/2018 SUBJECTIVE: The patient is seen and examined. Interim events noted. Consults noted and appreciated. The patient remains in regular medical floor, awake, responsive, much more communicative than yesterday. Complains of on and off pain, but controlled. No pain at present. PHYSICAL EXAMINATION: GENERAL: The patient is in no acute distress. VITAL SIGNS: Stable. HEART: S1 and S2. Normal and regular. LUNGS: Good bilateral air exchange. ABDOMEN: The patient has a colostomy tube over colocutaneous fistula draining very liquidy stool. No blood. EXTREMITIES: No edema. No calf swelling. No tenderness. No acute ischemia. CENTRAL NERVOUS SYSTEM: Essentially unchanged. DIAGNOSTIC DATA: Available diagnostic data reviewed. ASSESSMENT AND PLAN: Overall, the patient's general medical condition is stable and improving. Plan as ordered. Lucio Anton MD
[2018-02-22] MEDS: Piperacillin/Tazobact 3.375 GM in Sodium Chloride 0.9% 100 ML IVPB SCH ×3 (04:55→09:51)
[2018-02-22 06:31] LABS: HEMOGLOBIN 10.8 g/dL (12.0-18.0); MEAN CELL VOLUME 100.7 fl (80.0-94.0); MEAN CORPUSCULAR HEMOGLOBIN 33.8 pg (27.0-31.0); MEAN CORPUSCULAR HGB CONC 33.6 g/dL (33.0-37.0); RBC 3.2 Mil/uL (4.40-5.90); RED CELL DISTRIBUTION WIDTH 18.5 % (11.5-14.5); WHITE BLOOD COUNT 3.9 K/uL (4.8-10.8)
--- NOTE | 2018-02-22 06:45 | PQF ---
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 Please specify the location, present on admission status and stage: Location and laterality of pressure ulcer(s): POA status of each pressure ulcer: -- Not present on admission -- Present on admission -- Other -- Clinically unable to determine -- Unknown Stage of each pressure ulcer (National Pressure Ulcer Advisory Panel definitions): -- Stage I: Intact skin with non-blanchable redness of a localized area -- Stage II: Partial thickness skin loss involving dermis with a shallow open ulcer or an open serum -filled blister -- Stage III: Full thickness skin loss involving damage or necrosis of subcutaneous tissue -- Stage IV: Full thickness skin loss with exposed bone, tendon or muscle -- Unstageable: Full thickness tissue loss in which the base of the ulcer is covered by slough and/o r eschar in the wound bed The patient's Clinical Indicators include: real estate closer: Right heel has a stage 3 PI, measuring 1.4 cm L x 1 cm wide. Cleansed with NS, skin pr ep applied and mediplex foam dressing applied. Leave in place for 5 days and offload both heels from mattress Query created by: Abby Peck on 02/21/2018 8:10 AM Electronically signed by: Lucio Anton 02/22/2018 6:42 AM
[2018-02-22 06:55] LABS: ALB/GLOB RATIO 0.5 (1.0-2.1); ALT/SGPT 41 U/L (21-72); AST/SGOT 31 U/L (17-59); BLOOD UREA NITROGEN 11 mg/dl (9-20); CALCIUM 7.6 mg/dL (8.4-10.2); GFR NON-AFRICAN AMERICAN > 60
--- NOTE | 2018-02-22 08:28 | CP.PCM.PN ---
<Lee Ann Schwartz - Last Filed: 02/22/18 09:57> Subjective - Date & Time of Evaluation Date of Evaluation: 02/22/18 Time of Evaluation: 07:00 - Subjective Subjective: GENERAL SURGERY PROGRESS NOTE FOR DR. WORTHY Patient seen and examined at bedside. He is tolerating regular diet. He states that he is passing flatus but has not had a BM since he came into the hospital. Reports pain and is requesting pain medication. Objective - Vital Signs/Intake and Output Vital Signs (last 24 hours): Temp Pulse Resp BP Pulse Ox 97.6 F 79 20 93/60 L 96 02/22/18 00:22 02/22/18 00:22 02/22/18 00:22 02/22/18 00:22 02/21/18 16:29 - Medications Medications: Current Medications Enoxaparin Sodium (Lovenox) 40 mg SC DAILY [facility]; Protocol Last Admin: 02/21/18 10:19 Dose: 40 mg Piperacillin Sod/Tazobactam (Sod 3.375 gm/ Sodium Chloride) 100 mls @ 100 mls/hr IVPB Q6 [facility]; Protocol Last Admin: 02/22/18 04:55 Dose: 100 mls/hr Morphine Sulfate (Morphine) 2 mg IVP Q6 PRN PRN Reason: Pain, severe (8-10) Oxycodone/Acetaminophen (Percocet 5/325 Mg Tab) 1 tab PO Q4 PRN PRN Reason: Pain, moderate (4-7) Stop: 02/25/18 07:44 Pantoprazole Sodium (Protonix Inj) 40 mg IVP DAILY [facility] Last Admin: 02/21/18 10:19 Dose: 40 mg Sennosides (Senokot Tab) 8.6 mg PO BID [facility] Last Admin: 02/21/18 16:52 Dose: 8.6 mg Sodium Phosphate (Fleet Enema) 135 ml OK ONCE ONE Stop: 02/22/18 09:01 - Labs Labs: 02/22/18 05:45 02/22/18 05:45 - Constitutional Appears: Non-toxic, No Acute Distress, Cachectic, Chronically Ill - Head Exam Head Exam: ATRAUMATIC, NORMAL INSPECTION - Respiratory Exam Respiratory Exam: NORMAL BREATHING PATTERN. absent: Respiratory Distress - Cardiovascular Exam Cardiovascular Exam: +S1, +S2 - GI/Abdominal Exam GI & Abdominal Exam: Soft. absent: Distended, Firm, Guarding, Rigid, Rebound Additional comments: Midline fistula w. foul smelling yellow/brown liquid output - Neurological Exam Neurological Exam: Alert, Awake - Psychiatric Exam Psychiatric exam: Normal Affect, Normal Mood Assessment and Plan - Assessment and Plan (Free Text) Assessment: 73M with PMHx of ex-lap s/p small bowel resection, now presenting w. abd pain with enterocutaneous fistula - Tbili trending down, US non diagnostic - Continue w. local wound care for fistula - Tolerating regular diet - Air mattress - DVT ppx - No acute surgical intervention necessary - Surgery will sign off at this time, please re-consult as necessary - Follow up in Dr. Worthy's office as an outpatient for management of EC fistula - Discussed plan with Dr. Zaynab Schwartz PGY-4 <Mook Worthy - Last Filed: 03/03/18 16:10> Objective - Vital Signs/Intake and Output Vital Signs (last 24 hours): Temp Pulse Resp BP Pulse Ox 97.5 F L 79 19 105/71 96 03/03/18 07:55 03/03/18 07:55 03/03/18 07:55 03/03/18 07:55 03/03/18 07:55 - Medications Medications: Current Medications Enoxaparin Sodium (Lovenox) 40 mg SC DAILY [facility]; Protocol Last Admin: 03/03/18 09:21 Dose: 40 mg Meropenem 1 gm/ Sodium (Chloride) 100 mls @ 100 mls/hr IVPB Q8 [facility]; Protocol Last Admin: 03/03/18 09:21 Dose: 100 mls/hr Morphine Sulfate (Morphine) 2 mg IVP Q6 PRN PRN Reason: Pain, severe (8-10) Last Admin: 03/03/18 12:53 Dose: 2 mg Ondansetron HCl (Zofran Inj) 4 mg IVP Q4 PRN PRN Reason: Nausea/Vomiting Pantoprazole Sodium (Protonix Inj) 40 mg IVP DAILY [facility] Last Admin: 03/03/18 09:22 Dose: 40 mg Sennosides (Senokot Tab) 8.6 mg PO BID [facility] Last Admin: 03/03/18 09:22 Dose: 8.6 mg Sodium Phosphate (Fleet Enema) 135 ml [place] DAILY [facility] Last Admin: 03/02/18 10:14 Dose: 135 ml Tamsulosin HCl (Flomax) 0.4 mg PO DAILY [facility] Last Admin: 03/03/18 09:22 Dose: 0.4 mg - Labs Labs: 03/03/18 05:30 03/03/18 05:30 Attending/Attestation - Attestation I have personally seen and examined this patient.: Yes I have fully participated in the care of the patient.: Yes I have reviewed all pertinent clinical information, including history, physical exam and plan: Yes Notes (Text): Pt was seen and examined at bedside Pt is improving clinically Passing gas Fleet enema Full liquid diet c.w current mx No surgical intervention required at present Plan d.w pt in detail.
[2018-02-22] MEDS: Oxycodone/Acetaminophen 5/325 mg Tab PO PRN ×2 (09:46→13:07)
[2018-02-22] MEDS: Enoxaparin 40 mg Syringe SC SCH (09:47)
--- NOTE | 2018-02-22 12:43 | CP.PCM.CON ---
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 He states that this has been going on for "quite some time". Otherwise he states good appetite, denies nausea, vomiting, recents fever, diarrhea or constipation. 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 "Ex Lap for removal of non-malignant tumor resection in stomach many years ago" (?Partial gastrectomy). Back surgery. Bilateral Hip surgeries. IVC filter Family Hx: non-contributory Social Hx: Previous heavy ETOH use, last reported use 1986. Prior heavy tobacco use. No illicit drugs. Lives alone NKDA discussed with Dr Kauffman on rounds IV rx adjusted Review of Systems - Review of Systems All systems: reviewed and no additional remarkable complaints except - Constitutional Constitutional: As Per HPI - EENT Eyes: absent: As Per HPI, Blind Spots, Blurred Vision, Change in Vision, Decreased Night Vision, Diplopia, Discharge, Dry Eye, Exophthalmos, Floaters, Irritation, Itchy Eyes, Loss of Peripheral Vision, Pain, Photophobia, Requires Corrective Lenses, Sees Flashes, Spots in Vision, Tunnel Vision, Other Visual Disturbances, Loss of Vision, Other Ears: absent: As Per HPI, Decreased Hearing, Ear Discharge, Ear Pain, Tinnitus, Abnormal Hearing, Disequilibrium, Dizziness, Other Nose/Mouth/Throat: absent: As Per HPI, Epistaxis, Nasal Congestion, Nasal Discharge, Nasal Obstruction, Nasal Trauma, Nose Pain, Post Nasal Drip, Sinus Pain, Sinus Pressure, Bleeding Gums, Change in Voice, Dental Pain, Dry Mouth, Dysphagia, Halitosis, Hoarsness, Lip Swelling, Mouth Lesions, Mouth Pain, Odynophagia, Sore Throat, Throat Swelling, Tongue Swelling, Facial Pain, Neck Pain, Neck Mass, Other - Cardiovascular Cardiovascular: absent: As Per HPI, Acrocyanosis, Chest Pain, Chest Pain at Rest , Chest Pain with Activity, Claudication, Diaphoresis, Dyspnea, Dyspnea on Exertion, Edema, Irregular Heart Rhythm, Pain Radiating to Arm/Neck/Jaw, Leg Edema, Leg Ulcers, Lightheadedness, Orthopnea, Palpitations, Paroxysmal Nocturnal Dyspnea, Pedal Edema, Radiating Pain, Rapid Heart Rate, Slow Heart Rate, Syncope, Other - Respiratory Respiratory: absent: As Per HPI, Cough, Dyspnea, Hemoptysis, Dyspnea on Exertion, Wheezing, Snoring, Stridor, Pain on Inspiration, Chest Congestion, Excessive Mucous Production, Change in Mucous Color, Pain with Coughing, Other - Gastrointestinal Gastrointestinal: As Per HPI - Genitourinary Genitourinary: absent: As Per HPI, Change in Urinary Stream, Difficulty Urinating, Dysuria, Flank Pain, Hematuria, Pyuria, Nocturia, Urinary Incontinence, Urinary Frequency, Urinary Hesitance, Urinary Urgency, Voiding Freq/Small Amts, Freq UTI, Hx Renal/Bladder Calculi, Hx /Renal Surgery, Bladder Distension, Other - Musculoskeletal Musculoskeletal: absent: As Per HPI, Abnormal Gait, Arthralgias, Atrophy, Back P ain, Deformity, Joint Swelling, Limited Range of Motion, Loss of Height, Muscle Cramps, Muscle Weakness, Myalgias, Neck Pain, Numbness, Radiating Pain into Limb, Stiffness, Tingling, Other - Integumentary Integumentary: absent: As Per HPI, Acne, Alopecia, Bleeding Lesions, Change in Hair, Change in Nails, Change in Pigmentation, Changing Lesions, Dry Skin, Er ythema, Furuncle, Hirsutism, Lesions, New Lesions, Non-Healing Lesions, Photosensitivity, Pruritus, Rash, Skin Pain, Skin Ulcer, Sores, Striae, Swelling, Unusual Bruising, Wounds, Jaundice, Other - Neurological Neurological: absent: As Per HPI, Abnormal Gait, Abnormal Hearing, Abnormal Movements, Abnormal Speech, Behavioral Changes, Burning Sensations, Confusion, Convulsions, Disequilibrium, Dizziness, Numbness, Focal Weakness, Frequent Falls, Headaches, Lack of Coordination, Loss of Vision, Memory Loss, Paresthesias, Radicular Pain, Restless Legs, Sensory Deficit, Syncope, Tingling, Tremor, Vertigo, Weakness, Other Visual Disturbances, Other - Psychiatric Psychiatric: absent: As Per HPI, Abnormal Sleep Pattern, Anhedonia, Anxiety, Auditory Hallucinations, Behavioral Changes, Change in Appetite, Change in Libid o, Confusion, Depression, Difficulty Concentrating, Hallucinations, Homicidal Ideation, Hopelessness, Irritability, Memory Loss, Mood Swings, Panic Attacks, Paranoia, Suicidal Ideation, Visual Hallucinations, Tactile Hallucinations, Other - Endocrine Endocrine: absent: As Per HPI, Change in Body Appearance, Change in Libido, Cold Intolorance, Deepening of Voice, Excessive Sweating, Fatigue, Flushing, Heat Intolorance, Increase in Ring/Shoe/Hat Size, Palpitations, Polydipsia, Polyphagia, Polyuria, Other - Hematologic/Lymphatic Hematologic: absent: As Per HPI, Easy Bleeding, Easy Bruising, Lymphadenopathy, Other Past Patient History - Infectious Disease Hx of Infectious Diseases: None - Tetanus Immunizations Tetanus Immunization: Unknown - Past Medical History & Family History Past Medical History?: Yes - Past Social History Smoking Status: Former Smoker - CARDIAC Hx Cardiac Disorders: Yes - PULMONARY Hx Respiratory Disorders: Yes - NEUROLOGICAL Hx Neurological Disorder: Yes - HEENT Hx HEENT Problems: Yes Other/Comment: Glasses - RENAL Hx Chronic Kidney Disease: No - ENDOCRINE/METABOLIC Hx Endocrine Disorders: No - HEMATOLOGICAL/ONCOLOGICAL Hx Blood Disorders: Yes - INTEGUMENTARY Hx Dermatological Problems: Yes - MUSCULOSKELETAL/RHEUMATOLOGICAL Hx Musculoskeletal Disorders: Yes - GASTROINTESTINAL Hx Gastrointestinal Disorders: Yes Hx Ulcer: Yes - GENITOURINARY/GYNECOLOGICAL Hx Genitourinary Disorders: Yes - PSYCHIATRIC Hx Psychophysiologic Disorder: No Hx Substance Use: No - SURGICAL HISTORY Hx Cholecystectomy: Yes - ANESTHESIA Hx Anesthesia: Yes Hx Anesthesia Reactions: No Hx Malignant Hyperthermia: No Meds Allergies/Adverse Reactions: Allergies Allergy/AdvReac Type Severity Reaction Status Date / Time No Known Allergies Allergy Verified 02/19/18 14:57 - Medications Medications: Current Medications Enoxaparin Sodium (Lovenox) 40 mg SC DAILY [facility]; Protocol Last Admin: 02/22/18 09:47 Dose: 40 mg Meropenem 1 gm/ Sodium (Chloride) 100 mls @ 100 mls/hr IVPB Q8 [facility]; Protocol Morphine Sulfate (Morphine) 2 mg IVP Q6 PRN PRN Reason: Pain, severe (8-10) Oxycodone/Acetaminophen (Percocet 5/325 Mg Tab) 1 tab PO Q4 PRN PRN Reason: Pain, moderate (4-7) Stop: 02/25/18 07:44 Last Admin: 02/22/18 09:46 Dose: 1 tab Pantoprazole Sodium (Protonix Inj) 40 mg IVP DAILY [facility] Last Admin: 02/22/18 09:47 Dose: 40 mg Sennosides (Senokot Tab) 8.6 mg PO BID [facility] Last Admin: 02/22/18 09:47 Dose: 8.6 mg Physical Exam - Constitutional Appears: Cachectic, Chronically Ill - Head Exam Head Exam: ATRAUMATIC, NORMOCEPHALIC - Eye Exam Eye Exam: absent: Scleral icterus - ENT Exam ENT Exam: Mucous Membranes Dry, Normal External Ear Exam - Neck Exam Neck exam: Negative for: Lymphadenopathy - Respiratory Exam Respiratory Exam: Decreased Breath Sounds - Cardiovascular Exam Cardiovascular Exam: REGULAR RHYTHM - GI/Abdominal Exam GI & Abdominal Exam: Diminished Bowel Sounds, Tenderness. absent: Distended, Guarding, Rebound, Rigid Additional comments: multiple fistula tracta ant abd wall over stomach area - Rectal Exam Rectal Exam: Deferred - Exam Exam: NORMAL INSPECTION - Extremities Exam Extremities exam: Negative for: pedal edema - Back Exam Back exam: absent: CVA tenderness (L), CVA tenderness (R) - Neurological Exam Neurological exam: Alert, CN II-XII Intact, Oriented x3, Reflexes Normal - Psychiatric Exam Psychiatric exam: Normal Mood - Skin Skin Exam: Dry, Intact Results - Vital Signs Recent Vital Signs: Last Vital Signs Temp 97.6 F 02/22/18 08:43 Pulse 86 02/22/18 08:43 Resp 20 02/22/18 08:43 BP 106/67 02/22/18 08:43 Pulse Ox 98 02/22/18 08:43 - Labs Result Diagrams: 02/22/18 05:45 02/22/18 05:45 Labs: Laboratory Results - last 24 hr 02/22/18 02/22/18 05:45 05:45 WBC 3.9 L RBC 3.20 L Hgb 10.8 L D Hct 32.2 L MCV 100.7 H D MCH 33.8 H MCHC 33.6 RDW 18.5 H Plt Count 95 L Sodium 134 Potassium 4.7 Chloride 111 H Carbon Dioxide 18 L Anion Gap 10 BUN 11 Creatinine 0.9 Est GFR ( Amer) > 60 Est GFR (Non-Af Amer) > 60 Random Glucose 107 Calcium 7.6 L Total Bilirubin 2.6 H AST 31 ALT 41 Alkaline Phosphatase 196 H D Total Protein 6.0 L Albumin 2.0 L D Globulin 4.0 H Albumin/Globulin Ratio 0.5 L Assessment & Plan (1) Enterocutaneous fistula Status: Acute (2) Infection due to ESBL-producing Escherichia coli Status: Acute (3) Abdominal pain Status: Acute - Assessment and Plan (Free Text) Assessment: will add merrem d/c zosyn cont rx min 10 days prognosis guarded consider eval
--- NOTE | 2018-02-22 13:10 | PN ---
DATE: 02/22/2018 SUBJECTIVE: The patient seen and examined. Interim events noted. Consults noted and appreciated. The patient remains in regular medical floor. Awake, responsive, conversant, pleasant, and in no acute distress. Denies any specific complaint other than constipation. The patient is not having any bowel movement through rectum. PHYSICAL EXAMINATION: GENERAL: The patient is in no acute distress. VITAL SIGNS: Stable. HEART: S1 and S2, normal and regular. LUNGS: Good bilateral air exchange. ABDOMEN: The patient has colocutaneous fistula draining liquidy stool. No sign of obstruction or impaction. No guarding. No rigidity. No rebound. No tenderness. EXTREMITIES: No edema. No calf swelling. No tenderness. No acute ischemia. CENTRAL NERVOUS SYSTEM: Essentially unchanged. DIAGNOSTIC DATA: Available diagnostic data reviewed. ASSESSMENT AND PLAN: Overall, the patient's general medical condition is stable. Plan as ordered. Lucio Anton MD
[2018-02-22] MEDS: Meropenem 1 GM in Sodium Chloride 0.9% 100 ML IVPB SCH (16:24)
[2018-02-23] MEDS: Meropenem 1 GM in Sodium Chloride 0.9% 100 ML IVPB SCH ×3 (00:18→16:40)
[2018-02-23] MEDS: Oxycodone/Acetaminophen 5/325 mg Tab PO PRN ×3 (01:46→18:35)
[2018-02-23] MEDS: Enoxaparin 40 mg Syringe SC SCH (09:15)
--- NOTE | 2018-02-23 13:35 | PN ---
DATE: 02/23/2018 SUBJECTIVE: The patient seen and examined. Interim events noted. Consults noted and appreciated. The patient had an incident where the patient had a fall. Denies any new complaint. No chest pain. No shortness of breath. PHYSICAL EXAMINATION: GENERAL: The patient is in no acute distress. VITAL SIGNS: Stable. HEENT: S1 and S2, normal and regular. LUNGS: Good bilateral air exchange. ABDOMEN: Soft and nontender. The patient has colocutaneous fistula, draining very liquidy stool. EXTREMITIES: No edema. No calf swelling. No tenderness. No acute ischemia. CENTRAL NERVOUS SYSTEM: Essentially unchanged. DIAGNOSTIC DATA: Available diagnostic data reviewed. ASSESSMENT AND PLAN: Overall, the patient is clinically stable. Infectious Disease intervention noted and appreciated. Plan as ordered. Lucio Anton MD
[2018-02-24] MEDS: Meropenem 1 GM in Sodium Chloride 0.9% 100 ML IVPB SCH ×3 (00:28→17:00)
[2018-02-24] MEDS: Oxycodone/Acetaminophen 5/325 mg Tab PO PRN ×4 (03:57→22:48)
[2018-02-24 07:25] LABS: HEMOGLOBIN 10.9 g/dL (12.0-18.0); MEAN CELL VOLUME 98.5 fl (80.0-94.0); MEAN CORPUSCULAR HEMOGLOBIN 33.5 pg (27.0-31.0); RBC 3.25 Mil/uL (4.40-5.90); RED CELL DISTRIBUTION WIDTH 17.7 % (11.5-14.5); WHITE BLOOD COUNT 4.1 K/uL (4.8-10.8)
[2018-02-24 07:43] LABS: ALB/GLOB RATIO 0.5 (1.0-2.1); ALBUMIN 2.1 g/dL (3.5-5.0); ALT/SGPT 42 U/L (21-72); AST/SGOT 35 U/L (17-59); BLOOD UREA NITROGEN 11 mg/dl (9-20); CALCIUM 7.7 mg/dL (8.4-10.2); GFR NON-AFRICAN AMERICAN > 60
[2018-02-24] MEDS: Enoxaparin 40 mg Syringe SC SCH (09:16)
--- NOTE | 2018-02-24 09:40 | US ---
Date of service: 02/23/2018 PROCEDURE: Bilateral lower extremity venous duplex Doppler. HISTORY: pain in both calves COMPARISON: Bilateral lower extremity venous duplex ultrasound performed 08/18/2017. TECHNIQUE: Bilateral common femoral, superficial femoral, popliteal and posterior tibial veins were evaluated. Flow was assessed with color Doppler, compressibility, assessment of phasic flow and augmentation response. FINDINGS: COMMON FEMORAL VEIN: Right CFV: Unremarkable. Left CFV: Unremarkable. SUPERFICIAL FEMORAL VEIN: Right SFV: Unremarkable. Left SFV: Unremarkable. POPLITEAL VEIN: Right Popliteal: Unremarkable. Left Popliteal: Unremarkable. POSTERIOR TIBIAL VEIN: Right PTV: Unremarkable. Left PTV: Unremarkable. OTHER FINDINGS: None. IMPRESSION: No evidence of deep venous thrombosis.
--- NOTE | 2018-02-24 12:20 | CP.PCM.PN ---
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 and UTI \ referred for ID eval for ESBL E Coli in urine Objective - Vital Signs/Intake and Output Vital Signs (last 24 hours): Temp Pulse Resp BP Pulse Ox 99.5 F 69 20 102/68 97 02/24/18 08:00 02/24/18 08:00 02/24/18 08:00 02/24/18 08:00 02/24/18 08:00 - Medications Medications: Current Medications Enoxaparin Sodium (Lovenox) 40 mg SC DAILY [facility]; Protocol Last Admin: 02/24/18 09:16 Dose: 40 mg Meropenem 1 gm/ Sodium (Chloride) 100 mls @ 100 mls/hr IVPB Q8 [facility]; Protocol Last Admin: 02/24/18 09:07 Dose: 100 mls/hr Morphine Sulfate (Morphine) 2 mg IVP Q6 PRN PRN Reason: Pain, severe (8-10) Last Admin: 02/24/18 09:08 Dose: 2 mg Oxycodone/Acetaminophen (Percocet 5/325 Mg Tab) 1 tab PO Q4 PRN PRN Reason: Pain, moderate (4-7) Stop: 02/25/18 07:44 Last Admin: 02/24/18 10:38 Dose: 1 tab Pantoprazole Sodium (Protonix Inj) 40 mg IVP DAILY [facility] Last Admin: 02/24/18 09:11 Dose: 40 mg Sennosides (Senokot Tab) 8.6 mg PO BID [facility] Last Admin: 02/24/18 09:24 Dose: 8.6 mg - Labs Labs: 02/24/18 05:30 02/24/18 05:30 - Constitutional Appears: Non-toxic, Cachectic, Chronically Ill - Head Exam Head Exam: NORMOCEPHALIC - Eye Exam Eye Exam: absent: Scleral icterus - ENT Exam ENT Exam: Mucous Membranes Dry - Neck Exam Neck Exam: absent: Lymphadenopathy - Respiratory Exam Respiratory Exam: Decreased Breath Sounds - Cardiovascular Exam Cardiovascular Exam: REGULAR RHYTHM - GI/Abdominal Exam GI & Abdominal Exam: Distended, Soft. absent: Pulsatile Mass - Rectal Exam Rectal Exam: Deferred - Exam Exam: NORMAL INSPECTION - Extremities Exam Extremities Exam: absent: Pedal Edema - Back Exam Back Exam: absent: CVA tenderness (L), CVA tenderness (R) - Neurological Exam Neurological Exam: Alert, Awake, CN II-XII Intact, Oriented x3 Neuro motor strength exam: Left Upper Extremity: 4, Right Upper Extremity: 4, Left Lower Extremity: 4, Right Lower Extremity: 4 - Psychiatric Exam Psychiatric exam: Depressed - Skin Skin Exam: Dry Assessment and Plan (1) Enterocutaneous fistula Status: Acute (2) Infection due to ESBL-producing Escherichia coli Status: Acute (3) Abdominal pain Status: Acute - Assessment and Plan (Free Text) Assessment: referred for ID eval for ESBL E Coli in urine cont iv merrem for UTI surgical follow up
--- NOTE | 2018-02-24 12:32 | PN ---
DATE: 02/24/2018 SUBJECTIVE: The patient seen and examined. Interim events noted. Consults noted and appreciated. Surgery followup and intervention noted and appreciated. Case was discussed with Surgery yesterday. No surgical intervention at this time. The patient feels okay. Pain is controlled. Patient, however, had episodes of leg pain and Dopplers were done which were negative. The patient is already on DVT prophylaxis. Currently, the patient denies any new complaint. Chronic pain persists. No chest pain, no shortness of breath. PHYSICAL EXAMINATION: GENERAL: The patient is in no acute distress. VITAL SIGNS: Stable. HEART: S1 and S2, normal and regular. LUNGS: Good bilateral air exchange. ABDOMEN: Soft, nontender. The patient has chronic colocutaneous fistula, draining stool and possibly urine. No sign of acute abdomen. No guarding. No rigidity. No rebound. Bowel sounds are present, normal. EXTREMITIES: No edema. No calf swelling. No tenderness. No ischemia. CENTRAL NERVOUS SYSTEM: Essentially unchanged. There is no sign of any acute gross focal deficits. DIAGNOSTIC DATA: Available diagnostic data reviewed. ASSESSMENT AND PLAN: Overall, the patient's general medical condition is stable. Plan as ordered. Lucio Anton MD
[2018-02-25] MEDS: Meropenem 1 GM in Sodium Chloride 0.9% 100 ML IVPB SCH ×3 (00:19→16:48)
[2018-02-25] MEDS: Oxycodone/Acetaminophen 5/325 mg Tab PO PRN ×4 (02:32→23:39)
[2018-02-25 06:28] LABS: HEMOGLOBIN 10.6 g/dL (12.0-18.0); MEAN CELL VOLUME 99.3 fl (80.0-94.0); MEAN CORPUSCULAR HEMOGLOBIN 34.2 pg (27.0-31.0); MEAN CORPUSCULAR HGB CONC 34.5 g/dL (33.0-37.0); RBC 3.1 Mil/uL (4.40-5.90); RED CELL DISTRIBUTION WIDTH 18.3 % (11.5-14.5); WHITE BLOOD COUNT 3.9 K/uL (4.8-10.8)
[2018-02-25 06:47] LABS: ALB/GLOB RATIO 0.5 (1.0-2.1); ALT/SGPT 35 U/L (21-72); AST/SGOT 30 U/L (17-59); BLOOD UREA NITROGEN 12 mg/dl (9-20); CALCIUM 7.5 mg/dL (8.4-10.2); GFR NON-AFRICAN AMERICAN > 60
[2018-02-25] MEDS: Enoxaparin 40 mg Syringe SC SCH (08:35)
--- NOTE | 2018-02-25 11:12 | CP.PCM.PN ---
Subjective - Date & Time of Evaluation Date of Evaluation: 02/25/18 Time of Evaluation: 08:00 - Subjective Subjective: afeb rx in progress ESBL UTI Objective - Vital Signs/Intake and Output Vital Signs (last 24 hours): Temp Pulse Resp BP Pulse Ox 98.2 F 85 19 116/74 97 02/25/18 08:06 02/25/18 08:06 02/25/18 08:06 02/25/18 08:06 02/25/18 08:06 Intake and Output: 02/25/18 02/25/18 06:59 18:59 Output Total 750 Balance -750 - Medications Medications: Current Medications Enoxaparin Sodium (Lovenox) 40 mg SC DAILY [facility]; Protocol Last Admin: 02/25/18 08:35 Dose: 40 mg Meropenem 1 gm/ Sodium (Chloride) 100 mls @ 100 mls/hr IVPB Q8 [facility]; Protocol Last Admin: 02/25/18 08:33 Dose: 100 mls/hr Morphine Sulfate (Morphine) 2 mg IVP Q6 PRN PRN Reason: Pain, severe (8-10) Last Admin: 02/25/18 08:32 Dose: 2 mg Oxycodone/Acetaminophen (Percocet 5/325 Mg Tab) 1 tab PO Q4 PRN PRN Reason: Pain, moderate (4-7) Stop: 02/28/18 08:18 Pantoprazole Sodium (Protonix Inj) 40 mg IVP DAILY [facility] Last Admin: 02/25/18 08:35 Dose: 40 mg Sennosides (Senokot Tab) 8.6 mg PO BID [facility] Last Admin: 02/25/18 08:36 Dose: 8.6 mg - Labs Labs: 02/25/18 05:40 02/25/18 05:40 - Constitutional Appears: Non-toxic, Cachectic, Chronically Ill - Head Exam Head Exam: NORMOCEPHALIC - Eye Exam Eye Exam: PERRL - ENT Exam ENT Exam: Mucous Membranes Dry - Neck Exam Neck Exam: absent: Lymphadenopathy - Respiratory Exam Respiratory Exam: Decreased Breath Sounds - Cardiovascular Exam Cardiovascular Exam: REGULAR RHYTHM - GI/Abdominal Exam GI & Abdominal Exam: Diminished Bowel Sounds - Rectal Exam Rectal Exam: Deferred Assessment and Plan (1) Enterocutaneous fistula Status: Acute (2) Infection due to ESBL-producing Escherichia coli Status: Acute (3) Abdominal pain Status: Acute
--- NOTE | 2018-02-25 12:16 | PN ---
DATE: 02/25/2018 SUBJECTIVE: The patient seen and examined. Interim events noted. The patient remains in regular medical floor. The patient feels okay. No complaint of chest pain or shortness of breath. Has chronic abdominal pain which is controlled with current medication. The patient is able to eat normally but still has not moved his bowel . PHYSICAL EXAMINATION: GENERAL: The patient is in no acute distress. VITAL SIGNS: Stable. HEART: S1 and S2 normal and regular. LUNGS: Good bilateral air exchange. ABDOMEN: Soft, nontender. The patient has chronic colocutaneous fistula, draining mix of urine and stool. No sign of surrounding cellulitis. EXTREMITIES: No edema. No calf swelling. No tenderness. No acute ischemia. 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 DIAGNOSTIC DATA: Available diagnostic data reviewed. ASSESSMENT AND PLAN: Overall, the patient is clinically stable. Plan as ordered. Lucio Anton MD
--- NOTE | 2018-02-25 14:26 | PQF ---
PROVIDER RESPONSE TEXT: Partial SBO resolved REVIEWER QUERY TEXT: Rule Out Condition Clarification Please clarify if the PSBO is ruled in or ruled out. Pt has documented R/O PSBO noted as ?rule out? or similar terminology such as suspected, probable, et c. Please clarify status of this condition: -Patient has condition -Condition was ruled out Please provide corresponding diagnosis for patient's clinical picture and associated treatment -Patient had condition which is now resolved -Other (please specify) -Clinically unable to determine -Unknown The patient's Clinical Indicators include: S/P Explore lap with small bowel resection in June 2017 and presents with new onset abdominal pain a nd no BM is several days + Enterocutaneous fistula noted. CT: Extensive postoperative findings, Pneumobilia a new finding. Rx: IVAB, pain medication Query created by: Abby Peck on 02/22/2018 9:00 AM Electronically signed by: Ricky Lazo 02/25/2018 2:22 PM
--- NOTE | 2018-02-25 14:26 | PQF ---
PROVIDER RESPONSE TEXT: Enterocutaneous fistula 2/2 prior abd surgery in June REVIEWER QUERY TEXT: Documentation Clarification Your help is requested in clarifying the following clinical documentation, if you can please further specify in the medical record and discharge summary. Please clarify the Etiology of the Enterocutaneous fistula. History of perforated viscous in June 2017 requiring ex-lap with small bowel resection. The patient's Clinical Indicators include: Admitted with new onset of sharp intermittent abdominal pain. No BM is several days and drainage from the mid line abdomen. History of perforated viscous in June 2017 requiring ex-lap with small bowel resection WBC 5.3, afebrile Rx:IVAB Query created by: Abby Peck on 02/21/2018 8:04 AM Electronically signed by: Ricky Lazo 02/25/2018 2:22 PM
--- NOTE | 2018-02-25 19:37 | CP.PCM.PN ---
Subjective - Date & Time of Evaluation Date of Evaluation: 02/25/18 Time of Evaluation: 19:34 - Subjective Subjective: UROLOGY consult dictated. Imp uti with urine retention Will suggest use of flomax and after course of IV antibiotics done to then remove connors and give voiding trial Objective - Vital Signs/Intake and Output Vital Signs (last 24 hours): Temp Pulse Resp BP Pulse Ox 97.6 F 73 20 100/66 99 02/25/18 16:49 02/25/18 16:49 02/25/18 16:49 02/25/18 16:49 02/25/18 16:49 Intake and Output: 02/25/18 02/26/18 18:59 06:59 Output Total 1050 Balance -1050 - Medications Medications: Current Medications Meropenem 1 gm/ Sodium (Chloride) 100 mls @ 100 mls/hr IVPB Q8 [facility]; Protocol Last Admin: 02/25/18 16:48 Dose: 100 mls/hr Morphine Sulfate (Morphine) 2 mg IVP Q6 PRN PRN Reason: Pain, severe (8-10) Last Admin: 02/25/18 13:40 Dose: 2 mg Oxycodone/Acetaminophen (Percocet 5/325 Mg Tab) 1 tab PO Q4 PRN PRN Reason: Pain, moderate (4-7) Stop: 02/28/18 08:18 Last Admin: 02/25/18 17:03 Dose: 1 tab Pantoprazole Sodium (Protonix Inj) 40 mg IVP DAILY [facility] Last Admin: 02/25/18 08:35 Dose: 40 mg Sennosides (Senokot Tab) 8.6 mg PO BID [facility] Last Admin: 02/25/18 16:49 Dose: 8.6 mg - Labs Labs: 02/25/18 05:40 02/25/18 05:40
[2018-02-26] MEDS: Meropenem 1 GM in Sodium Chloride 0.9% 100 ML IVPB SCH ×3 (02:10→16:29)
[2018-02-26] MEDS: Oxycodone/Acetaminophen 5/325 mg Tab PO PRN ×3 (05:52→18:37)
--- NOTE | 2018-02-26 07:41 | CP.PCM.PN ---
Subjective - Date & Time of Evaluation Date of Evaluation: 02/26/18 Time of Evaluation: 07:40 - Subjective Subjective: Patient seen and examined with Dr Anton, doing well, no active complaints at this time, no BM per rectum since admission. Afebrile, VSS Objective - Vital Signs/Intake and Output Vital Signs (last 24 hours): Temp Pulse Resp BP Pulse Ox 97.6 F 65 19 99/66 L 99 02/26/18 00:30 02/26/18 00:30 02/26/18 00:30 02/26/18 00:30 02/26/18 00:30 Intake and Output: 02/26/18 02/26/18 06:59 18:59 Output Total 800 Balance -800 - Medications Medications: Current Medications Meropenem 1 gm/ Sodium (Chloride) 100 mls @ 100 mls/hr IVPB Q8 [facility]; Protocol Last Admin: 02/26/18 02:10 Dose: 100 mls/hr Morphine Sulfate (Morphine) 2 mg IVP Q6 PRN PRN Reason: Pain, severe (8-10) Last Admin: 02/26/18 03:09 Dose: 2 mg Oxycodone/Acetaminophen (Percocet 5/325 Mg Tab) 1 tab PO Q4 PRN PRN Reason: Pain, moderate (4-7) Stop: 02/28/18 08:18 Last Admin: 02/26/18 05:52 Dose: 1 tab Pantoprazole Sodium (Protonix Inj) 40 mg IVP DAILY [facility] Last Admin: 02/25/18 08:35 Dose: 40 mg Sennosides (Senokot Tab) 8.6 mg PO BID [facility] Last Admin: 02/25/18 16:49 Dose: 8.6 mg - Labs Labs: 02/25/18 05:40 02/25/18 05:40 - Constitutional Appears: No Acute Distress, Chronically Ill - Head Exam Head Exam: NORMAL INSPECTION - Respiratory Exam Respiratory Exam: Clear to Ausculation Bilateral - Cardiovascular Exam Cardiovascular Exam: REGULAR RHYTHM, +S1, +S2 - GI/Abdominal Exam GI & Abdominal Exam: Soft. absent: Distended, Tenderness Additional comments: Midline fistula with foul smelling yellow/brown liquid output, likely mixed urine and feces - Extremities Exam Extremities Exam: absent: Pedal Edema - Neurological Exam Neurological Exam: Alert, CN II-XII Intact, Oriented x3 - Skin Skin Exam: Dry, Warm Assessment and Plan - Assessment and Plan (Free Text) Assessment: 73 yo male patient with hx of s/p small bowel resection admitted with abdominal pain and enterocutaneous fistula, r/o PSBO Plan: - VSS, afebrile, WBC wnl - Tolerating regular diet - Surgery consulted, input appreciated - No surgical intervention necessary, follow up as outpatient for management of EC fistula - local wound care - Pain management - ID on board, input appreciated - Urology consulted, recommendations appreciated. - f/u labs and cultures in am - serial abd exams - continue home meds - rest of plan as ordered
--- NOTE | 2018-02-26 09:57 | CON ---
DATE: 02/25/2018 This is a 73-year-old male patient. I was called to see him for evaluation of urinary retention and ESBL positive E. coli infection. The patient apparently had some bowel resection done. He is now having a colostomy bag that he has had for several months now since 06/2017. The patient came into the hospital at this time, found to have urinary tract infection, done by culture. Coincidentally, upon his arrival, he had been complaining of consistent urinary incontinence and apparently a Russell catheter was placed. The urine outflow at this point is visually clear, and he is on intravenous antibiotic for the control of his infection. The patient states that prior to his admission, he was able to void spontaneously on his own. I have some more of his records in my office. His last visit was in 2014. At that point, he had an episode of urinary retention and was in my office at that time to have a Russell catheter removed. So, I think this is perhaps a recurrent event for this patient. I do not know if he has had other cases of problems since then, but at this time, we would probably recommend the use of an alpha michael, and once the intravenous antibiotic regimen is completed to then give the patient a voiding trial to see if he can void on his own. If not, then to place the Russell catheter and proceed with a more in depth urologic workup. Valery Loaiza MD
--- NOTE | 2018-02-26 15:06 | CP.PCM.PCO ---
Assessment/Plan - Assessment/Plan Assessment (Free Text): Pt has E coli ESBL positive in urine. Per Dr. Harris, patient will require minimum of 10 days IV antibiotics. Patient on IV Merrem.
[2018-02-27] MEDS: Oxycodone/Acetaminophen 5/325 mg Tab PO PRN ×4 (01:39→21:10)
[2018-02-27] MEDS: Meropenem 1 GM in Sodium Chloride 0.9% 100 ML IVPB SCH ×3 (01:40→17:17)
--- NOTE | 2018-02-27 10:52 | PN ---
DATE: 02/27/2018 SUBJECTIVE: The patient is seen and examined. Interim events noted. The patient remains in regular medical floor. The patient complains of lot of pain, although the patient did not resume Morphine due to poor IV access and was switched to Percocet. The patient also had episode of vomiting secondary to that. No new complaint of chest pain or shortness of breath. PHYSICAL EXAMINATION: GENERAL: The patient is in no acute distress, but the patient is chronically sick-looking elderly male, in no acute respiratory distress. VITAL SIGNS: Stable. Blood pressure remains on low sign, but that is usual for the patient. The patient does not have any sign of organ hypoperfusion. HEART: S1 and S2, normal and regular. LUNGS: Good bilateral air exchange. ABDOMEN: Soft and nontender. The patient has colocutaneous fistula draining stool. No sign of obstruction or infection, although the patient has no spontaneous bowel movement. EXTREMITIES: No edema. No calf swelling. No tenderness. No acute ischemia. CENTRAL NERVOUS SYSTEM: Essentially unchanged. DIAGNOSTIC DATA: Available diagnostic data reviewed. ASSESSMENT AND PLAN: Overall, the patient's general medical condition is hemodynamically stable. Plan as ordered. Lucio Anton MD
--- NOTE | 2018-02-27 10:55 | RAD ---
Date of service: 02/27/2018 HISTORY: Check placement PICC line COMPARISON: 07/29/2017 FINDINGS: LUNGS: Bilateral hyperaeration-background COPD emphysema inferred. Right upper lobe strandy coalescing fibrosis with traction bronchiectasis here. Note is made of a prior CT August 16 2017 exam referencing a stable right upper lobe cavitary lesion here. This is less conspicuous per this conventional radiograph Left apical pleural thickening similar within 07/15/2017 appearance PLEURA: Marked interval decrease in bilateral prior pleural effusions . Small residual left pleural effusion with or without chronic pleural thickening now noted. No pneumothorax apparent. CARDIOVASCULAR: There is presence of aortic atherosclerotic calcification on x-ray. Normal cardiac size. No pulmonary vascular congestion. Right PICC line tip near superior vena cava-similar. OSSEOUS STRUCTURES: No significant abnormalities. VISUALIZED UPPER ABDOMEN: GE junctional postsurgical changes inferred. OTHER FINDINGS: Right costophrenic angle is excluded from the field of view. The upward curve to the left costophrenic angle is a stable chronic status for this patient. 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 Prior bilateral pleural effusions have largely cleared Residual small left pleural effusion. Here concomitant mild pleural thickening possible.
--- NOTE | 2018-02-27 13:14 | CP.PCM.PN ---
Subjective - Date & Time of Evaluation Date of Evaluation: 02/27/18 Time of Evaluation: 08:00 - Subjective Subjective: denies fever alert appetite ok Objective - Vital Signs/Intake and Output Vital Signs (last 24 hours): Temp Pulse Resp BP Pulse Ox 97.3 F L 74 20 97/64 L 99 02/27/18 08:02 02/27/18 08:02 02/27/18 08:02 02/27/18 08:02 02/27/18 08:02 Intake and Output: 02/27/18 02/27/18 06:59 18:59 Output Total 700 Balance -700 - Medications Medications: Current Medications Enoxaparin Sodium (Lovenox) 40 mg SC DAILY [facility]; Protocol Meropenem 1 gm/ Sodium (Chloride) 100 mls @ 100 mls/hr IVPB Q8 [facility]; Protocol Last Admin: 02/27/18 10:50 Dose: 100 mls/hr Morphine Sulfate (Morphine) 2 mg IVP Q6 PRN PRN Reason: Pain, severe (8-10) Last Admin: 02/26/18 22:05 Dose: 2 mg Ondansetron HCl (Zofran Inj) 4 mg IVP Q4 PRN PRN Reason: Nausea/Vomiting Oxycodone/Acetaminophen (Percocet 5/325 Mg Tab) 1 tab PO Q4 PRN PRN Reason: Pain, moderate (4-7) Stop: 02/28/18 08:18 Last Admin: 02/27/18 10:56 Dose: 1 tab Pantoprazole Sodium (Protonix Inj) 40 mg IVP DAILY [facility] Last Admin: 02/27/18 10:52 Dose: 40 mg Sennosides (Senokot Tab) 8.6 mg PO BID [facility] Last Admin: 02/27/18 10:52 Dose: 8.6 mg Tamsulosin HCl (Flomax) 0.4 mg PO DAILY [facility] Last Admin: 02/27/18 09:52 Dose: 0.4 mg - Labs Labs: 02/25/18 05:40 02/25/18 05:40 - Constitutional Appears: Non-toxic, Cachectic - Head Exam Head Exam: NORMOCEPHALIC - Eye Exam Eye Exam: absent: Scleral icterus - ENT Exam ENT Exam: Mucous Membranes Dry - Neck Exam Neck Exam: absent: Lymphadenopathy - Respiratory Exam Respiratory Exam: Decreased Breath Sounds - Cardiovascular Exam Cardiovascular Exam: REGULAR RHYTHM - GI/Abdominal Exam GI & Abdominal Exam: Soft. absent: Tenderness Assessment and Plan (1) Enterocutaneous fistula Status: Acute (2) Infection due to ESBL-producing Escherichia coli Status: Acute (3) Abdominal pain Status: Acute - Assessment and Plan (Free Text) Assessment: cont iv rx for UTI supportive care
[2018-02-27] MEDS: Enoxaparin 40 mg Syringe SC SCH (13:34)
[2018-02-28] MEDS: Meropenem 1 GM in Sodium Chloride 0.9% 100 ML IVPB SCH ×3 (00:56→16:44)
[2018-02-28] MEDS: Oxycodone/Acetaminophen 5/325 mg Tab PO PRN ×2 (01:10→16:46)
--- NOTE | 2018-02-28 06:23 | PQF ---
PROVIDER RESPONSE TEXT: Anemia of chronic disease REVIEWER QUERY TEXT: Clarification of Clinical Diagnostic Findings Please clarify documentation or clinical relevance for the clinical / diagnostic findings or whether those are insignificant or unable to be further specified. Please clarify if there is an associated diagnosis or not to go along with the following CBC results: WBC 3.9-> 4.1-> 3.9 HGB 10.8-> 10.9-> 10.6 HCT 32.2-> 32-> 30.7 PLATELETS: 81-> 95-> 125-> 113 The patient's Clinical Indicators include: CBC being monitored Query created by: Abby Peck on 02/27/2018 8:46 AM Electronically signed by: Lucio Anton 02/28/2018 6:20 AM
[2018-02-28 06:25] LABS: HEMOGLOBIN 10.4 g/dL (12.0-18.0); MEAN CELL VOLUME 99.8 fl (80.0-94.0); MEAN CORPUSCULAR HEMOGLOBIN 33.4 pg (27.0-31.0); MEAN CORPUSCULAR HGB CONC 33.5 g/dL (33.0-37.0); RBC 3.12 Mil/uL (4.40-5.90); RED CELL DISTRIBUTION WIDTH 18.3 % (11.5-14.5); WHITE BLOOD COUNT 5.3 K/uL (4.8-10.8)
[2018-02-28 06:48] LABS: ALB/GLOB RATIO 0.5 (1.0-2.1); ALBUMIN 2.1 g/dL (3.5-5.0); ALT/SGPT 49 U/L (21-72); AST/SGOT 39 U/L (17-59); BLOOD UREA NITROGEN 19 mg/dl (9-20); CALCIUM 7.6 mg/dL (8.4-10.2); GFR NON-AFRICAN AMERICAN > 60
[2018-02-28] MEDS: Enoxaparin 40 mg Syringe SC SCH (10:13)
--- NOTE | 2018-02-28 11:05 | PN ---
DATE: 02/28/2018 SUBJECTIVE: The patient seen and examined. Interim events noted. Consults noted and appreciated. The patient remains on regular medical floor. The patient still did not have spontaneous rectal bowel movement, still draining a lot of stool through enterocutaneous fistula. Complains of on and off pain, controlled with current pain medication. PHYSICAL EXAMINATION: GENERAL: The patient is in no acute distress. VITAL SIGNS: Stable. HEART: S1, S2 normal and regular. LUNGS: Good bilateral air exchange. ABDOMEN: The patient has colocutaneous fistula draining very liquidy stool. No sign of acute abdomen. No guarding. No rigidity. No rebound. Bowel sounds are normal. EXTREMITIES: No edema. No calf swelling. No tenderness. No acute ischemia. 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 DIAGNOSTIC DATA: ASSESSMENT AND PLAN: The patient still does not have spontaneous bowel movements through rectum. Colocutaneous fistula remains open. Plan as ordered. Lucio Anton MD
[2018-03-01] MEDS: Meropenem 1 GM in Sodium Chloride 0.9% 100 ML IVPB SCH ×3 (00:19→16:36)
--- NOTE | 2018-03-01 07:15 | CP.PCM.PN ---
<Boaz Eason - Last Filed: 03/01/18 07:57> Subjective - Date & Time of Evaluation Date of Evaluation: 03/01/18 Time of Evaluation: 06:50 - Subjective Subjective: 73 y/o M was seen and examined by bedside with Dr Anton. Pt had a big oft bowel movement yesterday. Pt reports feeling OK. Pt afebrile, tolerating PO with No acute events overnight. Objective - Vital Signs/Intake and Output Vital Signs (last 24 hours): Temp Pulse Resp BP Pulse Ox 97.7 F 86 19 96/60 L 97 03/01/18 00:50 03/01/18 00:50 03/01/18 00:50 03/01/18 00:50 03/01/18 00:50 - Medications Medications: Current Medications Enoxaparin Sodium (Lovenox) 40 mg SC DAILY [facility]; Protocol Last Admin: 02/28/18 10:13 Dose: 40 mg Meropenem 1 gm/ Sodium (Chloride) 100 mls @ 100 mls/hr IVPB Q8 [facility]; Protocol Last Admin: 03/01/18 00:19 Dose: 100 mls/hr Morphine Sulfate (Morphine) 2 mg IVP Q6 PRN PRN Reason: Pain, severe (8-10) Last Admin: 03/01/18 01:24 Dose: 2 mg Ondansetron HCl (Zofran Inj) 4 mg IVP Q4 PRN PRN Reason: Nausea/Vomiting Oxycodone/Acetaminophen (Percocet 5/325 Mg Tab) 1 tab PO Q6 PRN PRN Reason: Pain, moderate (4-7) Stop: 03/03/18 15:00 Last Admin: 02/28/18 16:46 Dose: 1 tab Pantoprazole Sodium (Protonix Inj) 40 mg IVP DAILY [facility] Last Admin: 02/28/18 10:14 Dose: 40 mg Sennosides (Senokot Tab) 8.6 mg PO BID [facility] Last Admin: 02/28/18 17:13 Dose: 8.6 mg Sodium Phosphate (Fleet Enema) 135 ml [place] DAILY [facility] Last Admin: 02/28/18 10:14 Dose: 135 ml Tamsulosin HCl (Flomax) 0.4 mg PO DAILY [facility] Last Admin: 02/28/18 10:14 Dose: 0.4 mg - Labs Labs: 02/28/18 05:40 02/28/18 05:40 - Constitutional Appears: No Acute Distress, Cachectic - Head Exam Head Exam: ATRAUMATIC - ENT Exam ENT Exam: Mucous Membranes Dry - Neck Exam Neck Exam: Full ROM. absent: Meningismus - Respiratory Exam Respiratory Exam: NORMAL BREATHING PATTERN. absent: Rhonchi, Wheezes - Cardiovascular Exam Cardiovascular Exam: REGULAR RHYTHM, +S1, +S2 - GI/Abdominal Exam GI & Abdominal Exam: Soft. absent: Guarding, Tenderness, Rebound - Extremities Exam Extremities Exam: absent: Calf Tenderness - Neurological Exam Neurological Exam: Alert, Awake Assessment and Plan - Assessment and Plan (Free Text) Assessment: 73 y/o M with a PMHx of s/p small bowel resection admitted for evaluation of enterocutaneous fistula and ESBL UTI. PLAN: --VSS, afebrile, WBC wnl --Tolerating PO regular diet --Surgery consulted, input appreciated. No surgical intervention necessary, follow up as outpatient for management of EC fistula. --ID on board, input appreciated. --Continue with Meropenem. --Continue with daily Enema to enhance bowel movement per rectum. --Urology consulted, recommendations appreciated. -- Continue management as ordered. Case discussed with Dr Anton. <Lucio Anton - Last Filed: 03/01/18 15:41> Objective - Vital Signs/Intake and Output Vital Signs (last 24 hours): Temp Pulse Resp BP Pulse Ox 97.8 F 70 18 95/65 L 96 03/01/18 08:39 03/01/18 08:39 03/01/18 08:39 03/01/18 08:39 03/01/18 08:39 - Medications Medications: Current Medications Enoxaparin Sodium (Lovenox) 40 mg SC DAILY [facility]; Protocol Last Admin: 03/01/18 09:19 Dose: 40 mg Meropenem 1 gm/ Sodium (Chloride) 100 mls @ 100 mls/hr IVPB Q8 [facility]; Protocol Last Admin: 03/01/18 09:17 Dose: 100 mls/hr Morphine Sulfate (Morphine) 2 mg IVP Q6 PRN PRN Reason: Pain, severe (8-10) Last Admin: 03/01/18 14:17 Dose: 2 mg Ondansetron HCl (Zofran Inj) 4 mg IVP Q4 PRN PRN Reason: Nausea/Vomiting Oxycodone/Acetaminophen (Percocet 5/325 Mg Tab) 1 tab PO Q6 PRN PRN Reason: Pain, moderate (4-7) Stop: 03/03/18 15:00 Last Admin: 03/01/18 09:18 Dose: 1 tab Pantoprazole Sodium (Protonix Inj) 40 mg IVP DAILY [facility] Last Admin: 03/01/18 09:18 Dose: 40 mg Sennosides (Senokot Tab) 8.6 mg PO BID [facility] Last Admin: 03/01/18 09:19 Dose: 8.6 mg Sodium Phosphate (Fleet Enema) 135 ml [place] DAILY [facility] Last Admin: 03/01/18 09:17 Dose: 135 ml Tamsulosin HCl (Flomax) 0.4 mg PO DAILY [facility] Last Admin: 03/01/18 09:19 Dose: 0.4 mg - Labs Labs: 02/28/18 05:40 02/28/18 05:40 Assessment and Plan - Assessment and Plan (Free Text) Assessment: Patient was personally seen and examined by me in rounds with residents. Available labs and diagnostic data reviewed. Case, Patient's condition and management plan discussed with residents in rounds. Agree with resident's progress note. Plan: As ordered.
[2018-03-01] MEDS: Oxycodone/Acetaminophen 5/325 mg Tab PO PRN (09:18)
[2018-03-01] MEDS: Enoxaparin 40 mg Syringe SC SCH (09:19)
--- NOTE | 2018-03-01 14:26 | CP.PCM.PN ---
Subjective - Date & Time of Evaluation Date of Evaluation: 03/01/18 Time of Evaluation: 10:00 - Subjective Subjective: afeb nad awake alert apettite ok Objective - Vital Signs/Intake and Output Vital Signs (last 24 hours): Temp Pulse Resp BP Pulse Ox 97.8 F 70 18 95/65 L 96 03/01/18 08:39 03/01/18 08:39 03/01/18 08:39 03/01/18 08:39 03/01/18 08:39 - Medications Medications: Current Medications Enoxaparin Sodium (Lovenox) 40 mg SC DAILY [facility]; Protocol Last Admin: 03/01/18 09:19 Dose: 40 mg Meropenem 1 gm/ Sodium (Chloride) 100 mls @ 100 mls/hr IVPB Q8 [facility]; Protocol Last Admin: 03/01/18 09:17 Dose: 100 mls/hr Morphine Sulfate (Morphine) 2 mg IVP Q6 PRN PRN Reason: Pain, severe (8-10) Last Admin: 03/01/18 14:17 Dose: 2 mg Ondansetron HCl (Zofran Inj) 4 mg IVP Q4 PRN PRN Reason: Nausea/Vomiting Oxycodone/Acetaminophen (Percocet 5/325 Mg Tab) 1 tab PO Q6 PRN PRN Reason: Pain, moderate (4-7) Stop: 03/03/18 15:00 Last Admin: 03/01/18 09:18 Dose: 1 tab Pantoprazole Sodium (Protonix Inj) 40 mg IVP DAILY [facility] Last Admin: 03/01/18 09:18 Dose: 40 mg Sennosides (Senokot Tab) 8.6 mg PO BID [facility] Last Admin: 03/01/18 09:19 Dose: 8.6 mg Sodium Phosphate (Fleet Enema) 135 ml [place] DAILY [facility] Last Admin: 03/01/18 09:17 Dose: 135 ml Tamsulosin HCl (Flomax) 0.4 mg PO DAILY [facility] Last Admin: 03/01/18 09:19 Dose: 0.4 mg - Labs Labs: 02/28/18 05:40 02/28/18 05:40 - Constitutional Appears: Non-toxic, Chronically Ill - Head Exam Head Exam: NORMOCEPHALIC - Eye Exam Eye Exam: absent: Scleral icterus - ENT Exam ENT Exam: Mucous Membranes Dry - Neck Exam Neck Exam: absent: Lymphadenopathy - Respiratory Exam Respiratory Exam: Decreased Breath Sounds - Cardiovascular Exam Cardiovascular Exam: REGULAR RHYTHM - GI/Abdominal Exam GI & Abdominal Exam: Soft Additional comments: + fistula - Rectal Exam Rectal Exam: Deferred - Exam Exam: NORMAL INSPECTION - Extremities Exam Extremities Exam: absent: Pedal Edema - Back Exam Back Exam: absent: CVA tenderness (L), CVA tenderness (R) - Neurological Exam Neurological Exam: Alert, Awake, CN II-XII Intact Assessment and Plan (1) Enterocutaneous fistula Status: Acute (2) Infection due to ESBL-producing Escherichia coli Status: Acute (3) Abdominal pain Status: Acute - Assessment and Plan (Free Text) Assessment: cont iv rx for 14 days
[2018-03-02] MEDS: Meropenem 1 GM in Sodium Chloride 0.9% 100 ML IVPB SCH ×3 (00:17→16:59)
[2018-03-02] MEDS: Oxycodone/Acetaminophen 5/325 mg Tab PO PRN (03:14)
[2018-03-02] MEDS: Enoxaparin 40 mg Syringe SC SCH (09:59)
--- NOTE | 2018-03-02 19:08 | PN ---
DATE: 03/02/2018 SUBJECTIVE: The patient was seen and examined. Interim events noted. The patient remains on regular medical floor. Awake, responsive. Complains of pain, controlled with pain medication. Also having stool from colocutaneous fistula. PHYSICAL EXAMINATION GENERAL: The patient is in no acute distress. VITAL SIGNS: Stable. HEART: S1 and S2, normal and regular. LUNGS: Good bilateral air exchange. ABDOMEN: Colocutaneous fistula is present, draining stool. No sign of acute cellulitis. No sign of acute abdomen. No guarding. No rigidity. No rebound. Bowel sounds are present and normal. EXTREMITIES: No edema. No calf swelling. No tenderness. No acute ischemia. CENTRAL NERVOUS SYSTEM: Essentially unchanged. LABORATORY DATA: Available diagnostic data reviewed. ASSESSMENT AND PLAN: Overall, the patient's general medical condition is stable. Plan as ordered. Lucio Anton MD
[2018-03-03] MEDS: Meropenem 1 GM in Sodium Chloride 0.9% 100 ML IVPB SCH ×3 (01:23→16:34)
[2018-03-03 07:36] LABS: HEMOGLOBIN 11.6 g/dL (12.0-18.0); MEAN CELL VOLUME 99.8 fl (80.0-94.0); MEAN CORPUSCULAR HEMOGLOBIN 33.5 pg (27.0-31.0); MEAN CORPUSCULAR HGB CONC 33.5 g/dL (33.0-37.0); RBC 3.47 Mil/uL (4.40-5.90); RED CELL DISTRIBUTION WIDTH 18.4 % (11.5-14.5); WHITE BLOOD COUNT 5.4 K/uL (4.8-10.8)
[2018-03-03 07:42] LABS: ALB/GLOB RATIO 0.5 (1.0-2.1); ALBUMIN 2.4 g/dL (3.5-5.0); ALT/SGPT 50 U/L (21-72); AST/SGOT 41 U/L (17-59); BLOOD UREA NITROGEN 23 mg/dl (9-20); GFR NON-AFRICAN AMERICAN > 60
[2018-03-03] MEDS: Enoxaparin 40 mg Syringe SC SCH (09:21)
--- NOTE | 2018-03-03 12:21 | PN ---
DATE: 03/03/2018 SUBJECTIVE: The patient seen and examined. Interim events noted. The patient remains in regular medical floor. Awake and responsive. Denies any new complaint. He does have pain controlled with current pain medication. Also nursing staff reported sometime undigested food does come out in stools through colocutaneous fistula. PHYSICAL EXAMINATION: GENERAL: The patient is chronically sick-looking elderly male in no acute distress. VITAL SIGNS: Stable. HEART: S1 and S2. Normal and regular. LUNGS: Good bilateral air exchange. ABDOMEN: The patient has colocutaneous fistula draining stool and undigested food. No sign of acute abdomen. No guarding. No rigidity. No rebound. Bowel sounds are plus and normal. EXTREMITIES: No edema. No calf swelling. No tenderness. No acute ischemia. CENTRAL NERVOUS SYSTEM: Essentially unchanged. DIAGNOSTIC DATA: Available diagnostic data reviewed. ASSESSMENT AND PLAN: Overall, the patient's general medical condition is stable. Plan as ordered. Lucio Anton MD
--- NOTE | 2018-03-03 13:51 | CP.PCM.PN ---
Subjective - Date & Time of Evaluation Date of Evaluation: 03/03/18 Time of Evaluation: 08:00 - Subjective Subjective: no fever less pain Objective - Vital Signs/Intake and Output Vital Signs (last 24 hours): Temp Pulse Resp BP Pulse Ox 97.5 F L 79 19 105/71 96 03/03/18 07:55 03/03/18 07:55 03/03/18 07:55 03/03/18 07:55 03/03/18 07:55 - Medications Medications: Current Medications Enoxaparin Sodium (Lovenox) 40 mg SC DAILY [facility]; Protocol Last Admin: 03/03/18 09:21 Dose: 40 mg Meropenem 1 gm/ Sodium (Chloride) 100 mls @ 100 mls/hr IVPB Q8 [facility]; Protocol Last Admin: 03/03/18 09:21 Dose: 100 mls/hr Morphine Sulfate (Morphine) 2 mg IVP Q6 PRN PRN Reason: Pain, severe (8-10) Last Admin: 03/03/18 12:53 Dose: 2 mg Ondansetron HCl (Zofran Inj) 4 mg IVP Q4 PRN PRN Reason: Nausea/Vomiting Oxycodone/Acetaminophen (Percocet 5/325 Mg Tab) 1 tab PO Q6 PRN PRN Reason: Pain, moderate (4-7) Stop: 03/03/18 15:00 Last Admin: 03/02/18 03:14 Dose: 1 tab Pantoprazole Sodium (Protonix Inj) 40 mg IVP DAILY [facility] Last Admin: 03/03/18 09:22 Dose: 40 mg Sennosides (Senokot Tab) 8.6 mg PO BID [facility] Last Admin: 03/03/18 09:22 Dose: 8.6 mg Sodium Phosphate (Fleet Enema) 135 ml [place] DAILY [facility] Last Admin: 03/02/18 10:14 Dose: 135 ml Tamsulosin HCl (Flomax) 0.4 mg PO DAILY [facility] Last Admin: 03/03/18 09:22 Dose: 0.4 mg - Labs Labs: 03/03/18 05:30 03/03/18 05:30 - Constitutional Appears: Non-toxic, Cachectic, Chronically Ill - Head Exam Head Exam: NORMOCEPHALIC - Eye Exam Eye Exam: absent: Scleral icterus - ENT Exam ENT Exam: Mucous Membranes Dry - Neck Exam Neck Exam: absent: Lymphadenopathy - Respiratory Exam Respiratory Exam: Decreased Breath Sounds - Cardiovascular Exam Cardiovascular Exam: REGULAR RHYTHM - GI/Abdominal Exam GI & Abdominal Exam: Distended. absent: Rigid - Rectal Exam Rectal Exam: Deferred Assessment and Plan (1) Enterocutaneous fistula Status: Acute (2) Infection due to ESBL-producing Escherichia coli Status: Acute (3) Abdominal pain Status: Acute
[2018-03-04] MEDS: Meropenem 1 GM in Sodium Chloride 0.9% 100 ML IVPB SCH ×3 (01:15→17:57)
[2018-03-04] MEDS: Enoxaparin 40 mg Syringe SC SCH (08:29)
--- NOTE | 2018-03-04 15:04 | PN ---
DATE: 03/04/2018 SUBJECTIVE: The patient seen and examined. Interim events noted. Consults noted and appreciated. The patient remains in regular medical floor. Feels okay. Pain is present, but controlled. No chest pain or shortness of breath. The patient had bowel movements through rectum yesterday. PHYSICAL EXAMINATION: GENERAL: The patient is in no acute distress. VITAL SIGNS: Stable. HEART: S1 and S2 normal and regular. LUNGS: Good bilateral air exchange. ABDOMEN: The patient has colocutaneous fistula draining moderate amount of liquid stools. No sign of acute abdomen. No guarding, no rigidity, no rebound. Bowel sounds are present and normal. EXTREMITIES: No edema. No calf swelling. No tenderness. No acute ischemia. PER DIEM REGISTERED NURSE: Exam is essentially unchanged. DIAGNOSTIC DATA: Available diagnostic data reviewed. ASSESSMENT AND PLAN: Overall, the patient is clinically stable. Started having bowel movements. Plan as ordered. Lucio Anton MD
[2018-03-05] MEDS: Meropenem 1 GM in Sodium Chloride 0.9% 100 ML IVPB SCH ×3 (01:26→16:38)
[2018-03-05 06:44] LABS: ALB/GLOB RATIO 0.5 (1.0-2.1); ALBUMIN 2.1 g/dL (3.5-5.0); ALT/SGPT 44 U/L (21-72); AST/SGOT 33 U/L (17-59); BLOOD UREA NITROGEN 24 mg/dl (9-20); CALCIUM 7.6 mg/dL (8.4-10.2); GFR NON-AFRICAN AMERICAN > 60; HEMOGLOBIN 10.5 g/dL (12.0-18.0); MEAN CELL VOLUME 100.3 fl (80.0-94.0); MEAN CORPUSCULAR HEMOGLOBIN 33.7 pg (27.0-31.0); MEAN CORPUSCULAR HGB CONC 33.6 g/dL (33.0-37.0); RBC 3.13 Mil/uL (4.40-5.90); RED CELL DISTRIBUTION WIDTH 18.1 % (11.5-14.5); WHITE BLOOD COUNT 4.1 K/uL (4.8-10.8)
[2018-03-05] MEDS: Enoxaparin 40 mg Syringe SC SCH (09:38)
[2018-03-05] MEDS: CADEXOMER IODINE TOP SCH (11:03)
--- NOTE | 2018-03-05 14:17 | PN ---
DATE: 03/05/2018 SUBJECTIVE: The patient seen and examined. Interim events noted. The patient remains in regular medical floor. The patient feels okay. No chest pain. No shortness of breath. The patient did not take enema yesterday and did not have bowel movement. PHYSICAL EXAMINATION GENERAL: The patient is in no acute distress. VITAL SIGNS: Stable. HEART: S1 and S2, normal and regular. LUNGS: Bilateral air exchange. ABDOMEN: The patient has chronic colocutaneous fistula, draining liquid stool . No sign of acute abdomen. No guarding, no rigidity, no rebound. Bowel sounds are plus and normal. EXTREMITIES: No edema. No calf swelling. No tenderness. No acute ischemia. CENTRAL NERVOUS SYSTEM: Essentially unchanged. DIAGNOSTIC DATA: Available diagnostic data reviewed. ASSESSMENT AND PLAN: Overall, the patient's general medical condition is stable. The patient was instructed to take enema, so that patient can have regular normal rectal bowel movements and fistula had chance to heal. Plan as ordered. Lucio Anton MD
[2018-03-06] MEDS: Meropenem 1 GM in Sodium Chloride 0.9% 100 ML IVPB SCH ×2 (00:01→10:42)
[2018-03-06 00:49] VITALS: RESP 20
[2018-03-06 08:23] VITALS: PULSE 87; TEMP 98.4; O2SAT 95
[2018-03-06] MEDS: CADEXOMER IODINE TOP SCH ×2 (11:01→11:02)
[2018-03-06] MEDS: Enoxaparin 40 mg Syringe SC SCH (11:01)
--- NOTE | 2018-03-06 13:03 | CP.PCM.PN ---
Subjective - Date & Time of Evaluation Date of Evaluation: 03/06/18 Time of Evaluation: 06:00 - Subjective Subjective: no fever less pain Objective - Vital Signs/Intake and Output Vital Signs (last 24 hours): Temp Pulse Resp BP Pulse Ox 98.4 F 87 20 98/58 L 95 03/06/18 08:22 03/06/18 08:22 03/06/18 08:22 03/06/18 00:49 03/06/18 08:22 - Medications Medications: Current Medications Cadexomer Iodine (Iodosorb 0.9%) 1 applic TOP DAILY [facility] Last Admin: 03/06/18 11:02 Dose: 1 applic Enoxaparin Sodium (Lovenox) 40 mg SC DAILY [facility]; Protocol Last Admin: 03/06/18 11:01 Dose: 40 mg Meropenem 1 gm/ Sodium (Chloride) 100 mls @ 100 mls/hr IVPB Q8 [facility]; Protocol Last Admin: 03/06/18 10:42 Dose: 100 mls/hr Morphine Sulfate (Morphine) 2 mg IVP Q6 PRN PRN Reason: Pain, severe (8-10) Last Admin: 03/06/18 10:54 Dose: 2 mg Ondansetron HCl (Zofran Inj) 4 mg IVP Q4 PRN PRN Reason: Nausea/Vomiting Pantoprazole Sodium (Protonix Inj) 40 mg IVP DAILY [facility] Last Admin: 03/06/18 10:59 Dose: 40 mg Sennosides (Senokot Tab) 8.6 mg PO BID [facility] Last Admin: 03/06/18 11:02 Dose: 8.6 mg Sodium Phosphate (Fleet Enema) 135 ml UT DAILY [facility] Last Admin: 03/05/18 09:36 Dose: 135 ml Tamsulosin HCl (Flomax) 0.4 mg PO DAILY [facility] Last Admin: 03/06/18 11:02 Dose: 0.4 mg - Labs Labs: 03/05/18 05:35 03/05/18 05:35 - Constitutional Appears: Non-toxic, Cachectic - Eye Exam Eye Exam: Normal appearance Pupil Exam: NORMAL ACCOMODATION - ENT Exam ENT Exam: Mucous Membranes Dry - Neck Exam Neck Exam: absent: Lymphadenopathy - Respiratory Exam Respiratory Exam: Decreased Breath Sounds - Cardiovascular Exam Cardiovascular Exam: REGULAR RHYTHM - GI/Abdominal Exam GI & Abdominal Exam: Soft. absent: Tenderness Assessment and Plan (1) Enterocutaneous fistula Status: Acute (2) Infection due to ESBL-producing Escherichia coli Status: Acute (3) Abdominal pain Status: Acute
--- NOTE | 2018-03-06 13:07 | PN ---
DATE: 03/06/2018 SUBJECTIVE: The patient seen and examined. Interim events noted. The patient had a large bowel movement through rectum. The patient feels okay. Complains of chronic pain, controlled with pain medication. No chest pain. No shortness of breath. PHYSICAL EXAMINATION: GENERAL: The patient is in no acute distress. VITAL SIGNS: Stable. HEART: S1 and S2, normal and regular. LUNGS: Good bilateral air exchange. ABDOMEN: Soft and nontender. The patient has colocutaneous fistula, still draining stool. EXTREMITIES: No edema. No calf swelling. No tenderness. No acute ischemia. CENTRAL NERVOUS SYSTEM: Essentially unchanged. DIAGNOSTIC DATA: Available diagnostic data reviewed. ASSESSMENT AND PLAN: Overall, the patient's general medical condition is stable. Plan as ordered. Lucio Anton MD
[2018-03-06 15:11] VITALS: BP 90/56
[2018-03-06] MEDS ORDERED: Oxycodone/Acetaminophen 5/325 mg Tab PO STA (15:34)
[2018-03-06] MEDS ORDERED: Oxycodone/Acetaminophen 5/325 mg Tab PO PRN (15:35)
[2018-03-06] MEDS ORDERED: Oxycodone/Acetaminophen 5/325 mg Tab ONE (15:40)
== END 2018-03-06 16:00 | DRG 919 ==
LOC: H.ER 14:54 → H.ERHOLD 21:48 → H.MEDSURG1 02-20 01:59
PROVIDERS: ADMIT Internal Medicine; ATTEND Internal Medicine
DX: T81.83XA Persistent postprocedural fistula, initial encounter (principal); L89.613 Pressure ulcer of right heel, stage 3; K63.2 Fistula of intestine; K56.600 Partial intestinal obstruction, unspecified as to cause; N39.0 Urinary tract infection, site not specified; J44.9 Chronic obstructive pulmonary disease, unspecified; B96.20 Unspecified Escherichia coli [E. coli] as the cause of diseases classified elsewhere; Z16.12 Extended spectrum beta lactamase (ESBL) resistance; Z93.3 Colostomy status; R32 Unspecified urinary incontinence; Z23 Encounter for immunization; M06.9 Rheumatoid arthritis, unspecified; I48.91 Unspecified atrial fibrillation; Z86.718 Personal history of other venous thrombosis and embolism; I10 Essential (primary) hypertension; Z87.891 Personal history of nicotine dependence; G89.29 Other chronic pain; D63.8 Anemia in other chronic diseases classified elsewhere

== ENCOUNTER 2018-03-11 04:26 | Emergency (ER) | payer MEDICARE ==
[2018-03-11 04:27] VITALS: PULSE 122; BMI 18.1
[2018-03-11] MEDS ORDERED: Sodium Chloride 0.9% 1,000 ML IV STA (05:22)
--- NOTE | 2018-03-11 05:41 | ED PDOC ---
Lower Extremity Pain/Injury Time Seen by Provider: 03/11/18 04:40 Chief Complaint (Nursing): Abdominal Pain Chief Complaint (Provider): chronic leg pain History Per: Patient History/Exam Limitations: no limitations Onset/Duration Of Symptoms: Days (chronic) Additional Complaint(s): Elzbieta Charles is a 73 year old male, with a past medical history of HTN, COPD, A-fib, arthritis, stomach CA with colostomy, perforated viscus and ex lap with small bowel obstruction resection in June 2017, who was [facility] for evaluation of chronic leg pain as well as abdominal pain. Patient received percocet earlier but with no relief. He denies any other medical complaints. PMD: Lucio Anton Past Medical History Reviewed: Historical Data, Nursing Documentation, Vital Signs Vital Signs: Last Vital Signs Temp 98.0 F 03/11/18 04:35 Pulse 90 03/11/18 04:35 Resp 16 03/11/18 04:35 BP 78/54 L 03/11/18 04:35 Pulse Ox 98 03/11/18 04:35 - Medical History PMH: Arthritis, Atrial Fibrillation, Back Problems, CHF, COPD, Deep Vein Thrombosis, Fractures, HTN, Malignancy (stomach CA), Pneumonia, Rheumatoid Art hritis Denies: HIV, Chronic Kidney Disease Other PMH: perforated viscus - Surgical History Surgical History: Back Surgery, Cholecystectomy Denies: Pacemaker - Family History Family History: States: Unknown Family Hx - Social History Ex-Smoker (has not smoked in the last 12 months): Yes Alcohol: Other (ex-drinker) Drugs: Denies - Immunization History Hx Influenza Vaccination: No Hx Pneumococcal Vaccination: No - Home Medications Home Medications: Ambulatory Orders Medication Instructions Recorded Meropenem [Merrem IV] 1 gm IVPB Q8 #21 vial 03/06/18 RX: Cadexomer Iodine 0.9% 1 applic TOP DAILY tube 03/06/18 [Iodosorb 0.9%] RX: Enoxaparin [Lovenox] 40 mg SC DAILY syr 03/06/18 RX: Sennosides A and B [Senokot 8.6 mg PO BID tab 03/06/18 Tab] RX: Tamsulosin [Flomax] 0.4 mg PO DAILY cap 03/06/18 - Allergies Allergies/Adverse Reactions: Allergies Allergy/AdvReac Type Severity Reaction Status Date / Time No Known Allergies Allergy Verified 02/19/18 14:57 Review of Systems ROS Statement: Except As Marked, All Systems Reviewed And Found Negative Musculoskeletal: Positive for: Leg Pain (chronic) Physical Exam - Reviewed Nursing Documentation Reviewed: Yes Vital Signs Reviewed: Yes - Physical Exam Appears: Positive for: No Acute Distress Head Exam: Positive for: ATRAUMATIC, NORMAL INSPECTION, NORMOCEPHALIC Skin: Positive for: Normal Color, Warm, Dry Eye Exam: Positive for: Normal appearance, EOMI, PERRL ENT: Positive for: Normal ENT Inspection Neck: Positive for: Normal, Painless ROM Cardiovascular/Chest: Positive for: Regular Rate, Rhythm. Negative for: Murmur Respiratory: Positive for: Normal Breath Sounds. Negative for: Respiratory Distress Gastrointestinal/Abdominal: Positive for: Normal Exam, Soft, Other (Colostomy bag in place on right and urine bag on the left side). Negative for: Tenderness, Guarding, Rebound Back: Positive for: Normal Inspection. Negative for: L CVA Tenderness, R CVA Tenderness, Vertebral Tenderness Extremity: Positive for: Normal ROM (all extremities), Capillary Refill (less than 2 s), Other (No neurovascular deficits). Negative for: Tenderness, Pedal Edema, Calf Tenderness, Deformity, Swelling Neurologic/Psych: Positive for: Alert, Oriented. Negative for: Motor/Sensory Deficits - Laboratory Results Result Diagrams: 03/11/18 05:48 03/11/18 05:48 - ECG O2 Sat by Pulse Oximetry: 98 (RA) Pulse Ox Interpretation: Normal Medical Decision Making Medical Decision Making: Time: 04:51 Initial Impression: Chronic leg pain, abdominal pain Initial Plan: --CMP --CBC w/ differential --Morphine 4 mg IV --Sodium Chloride 1,000 ml IV 999 mls/hr --Reevaluation 06:40 pt resting comfortably in no distress -Ordered Abdomen CT. 07:00 -Patient signed out to Dr. Mcconnell pending CT abdomen and reevaluation Scribe Attestation: Documented by Ezekiel Georges, acting as a scribe for Ami Sanchez MD. Provider Scribe Attestation: All medical record entries made by the Scribe were at my direction and personally dictated by me. I have reviewed the chart and agree that the record accurately reflects my personal performance of the history, physical exam, medical decision making, and the department course for this patient. I have also personally directed, reviewed, and agree with the discharge instructions and disposition. Disposition - Clinical Impression Clinical Impression: Abdominal pain, Chronic leg pain - Patient ED Disposition Is Patient to be Admitted: Transfer of Care - Disposition Referrals: Lucio Anton MD [Staff Provider] - Disposition: Transfer of Care Disposition Time: 07:00 Condition: GOOD Additional Instructions: ELZBIETA CHARLES, thank you for letting us take care of you today. Your provider was Mallory Mcconnell MD and you were treated for BODY PAIN. The emergency medical care you received today was directed at your acute symptoms. If you were prescribed any medication, please fill it and take as directed. It may take several days for your symptoms to resolve. Return to the Emergency Department if your symptoms worsen, do not improve, or if you have any other problems. Please contact your doctor or call one of the physicians/clinics you have been referred to that are listed on the Patient Visit Information form that is included in your discharge packet. Bring any paperwork you were given at discharge with you along with any medications you are taking to your follow up visit. Our treatment cannot replace ongoing medical care by a primary care provider outside of the emergency department. Thank you for allowing the [facility] team to be part of your care today. If you had an X-Ray or CT scan: A Radiologist will review the ED reading if any change in treatment is needed we will contact you. If you had a blood, urine, or wound culture: It will take several days for the results, if any change in treatment is needed we will contact you. If you had an STI test: It will take 48 hours for the results. Please call after 1 week if you have not heard back. Instructions: Chronic Pain (DC), Colostomy Care Patient Signed Over To: Mallory Mcconnell
[2018-03-11 06:03] LABS: BASO # 0.1 K/uL (0.0-0.2); BASO % 1.2 % (0.0-2.0); EOS # 0.2 K/uL (0.0-0.7); EOS % 3.9 % (0.0-4.0); HEMOGLOBIN 10.1 g/dL (12.0-18.0); LYMPH # 1.1 K/uL (1.0-4.3); LYMPH % 22.8 % (20.0-40.0); MEAN CELL VOLUME 101.1 fl (80.0-94.0); MEAN CORPUSCULAR HEMOGLOBIN 33.7 pg (27.0-31.0); MEAN CORPUSCULAR HGB CONC 33.4 g/dL (33.0-37.0); MEAN PLATELET VOLUME 7.4 fl (7.2-11.7); MONO # 0.5 K/uL (0.0-0.8); MONO % 11.1 % (0.0-10.0); NEUT # 2.9 K/uL (1.8-7.0); RBC 2.98 Mil/uL (4.40-5.90); RED CELL DISTRIBUTION WIDTH 18.8 % (11.5-14.5); WHITE BLOOD COUNT 4.8 K/uL (4.8-10.8)
[2018-03-11 06:14] LABS: ALB/GLOB RATIO 0.5 (1.0-2.1); ALT/SGPT 45 U/L (21-72); AST/SGOT 46 U/L (17-59); BLOOD UREA NITROGEN 20 mg/dl (9-20); CALCIUM 7.6 mg/dL (8.4-10.2); GFR NON-AFRICAN AMERICAN > 60
[2018-03-11 06:18] VITALS: RESP 18
--- NOTE | 2018-03-11 07:28 | ED PDOC ---
- Laboratory Results Result Diagrams: 03/11/18 05:48 03/11/18 05:48 - ECG O2 Sat by Pulse Oximetry: 98 (RA) Pulse Ox Interpretation: Normal - Progress Re-evaluation Time: 10:45 Condition: Re-examined, Improved Medical Decision Making Medical Decision Makin Patient signed out to me by Dr. Sanchez pending CT results and reevaluation. 0930 CT Abdomen/Pelvis FINDINGS: LOWER THORAX: A mild left pleural effusion is identified increased in volume in the interval with limited left lower lobe compression atelectasis. Nodular fibrosis is unchanged at the medial right base with no right pleural effusion or pericardial effusion evident at this time. LIVER: Prior pneumobilia at the nondependent liver is now not identified. Postoperative changes are again seen at the gallbladder fossa/epigastric region GALLBLADDER AND BILE DUCTS: Prior cholecystectomy. Distal common bile duct remains dilated to approximately 12 mm without obvious choledocholithiasis appreciable. PANCREAS: Chronic pancreatitis is again seen with likely persistent dilatation of the pancreatic duct. No interval peripancreatic fluid collection or reaction appreciable. SPLEEN: Unremarkable. ADRENALS: Unremarkable. No mass. KIDNEYS AND URETERS: Small right renal lucencies are stable limited evaluation due to lack images contrast no obstructive uropathy bilaterally. Small hyperdense cyst unchanged at at the apex of the right kidney with exophytic left renal cyst unchanged again measuring 2.7 cm. VASCULATURE: Nonaneurysmal abdominal aortoiliac calcific atherosclerotic changes are ident ified. Further, infrarenal inferior vena cava filter is again noted in situ at IVC. BOWEL: Prominent retained fecal material is identified at the bilateral flexures as well as the transverse colon with a left paracentral colostomy reiterated. Anastomotic suture line is again identified at the left paracentral lower abdomen/upper pelvis as well as left flank inferolateral to colostomy site. Thickening of a bowel loop in the left flank is questioned (series 3, image [id number]). Lack of oral contrast limits interpretation significantly. Prominent retained fecal material is seen in the rectum APPENDIX: Not identified. PERITONEUM: Unremarkable. No free fluid. No free air. LYMPH NODES: Unremarkable. No enlarged lymph nodes. BLADDER: Russell catheter decompresses the urinary bladder. REPRODUCTIVE: Artifact from orthopedic hardware at the bilateral hip joints obscures imaging through the pelvis. BONES: Chronic L1 compression fracture remains mild. OTHER FINDINGS: None. IMPRESSION: 1. Limited exam due lack contrast agents with colostomy again seen at the left paracentral upper abdomen. Distended retained fecal material seen throughout the bilateral flexures and the transverse colon as well as the rectum. No definite small bowel obstruction. Thickening of possible large or small bowel loops at the left flank is questioned anteriorly which measures question of colitis favored over enteritis given size of bowel loop. 2. Prior cholecystectomy again evident. Dilated CBD suspected of the 12 mm. 3. Anastomotic suture material lines are again seen involving bowel at the left flank and left paracentral lower abdomen. 4. Chronic pancreatitis reiterated. 0953 Vital signs reviewed, patient's blood pressure is noted to be at baseline. Scribe Attestation: Documented by Diane Bell, acting as a scribe for Mallory Mcconnell MD Provider Scribe Attestation: All medical record entries made by the Scribe were at my direction and personally dictated by me. I have reviewed the chart and agree that the record accurately reflects my personal performance of the history, physical exam, medical decision making, and the department course for this patient. I have also personally directed, reviewed, and agree with the discharge instructions and disposition. Disposition - Clinical Impression Clinical Impression: Abdominal pain - POA Present On Arrival: None - Disposition Referrals: Lucio Anton MD [Staff Provider] - Disposition: Routine/Home Disposition Time: 10:45 Condition: GOOD Forms: [facility] ([place])
--- NOTE | 2018-03-11 09:26 | CT ---
Date of service: 03/11/2018 PROCEDURE: CT Abdomen and Pelvis without intravenous contrast HISTORY: abd pain COMPARISON: Abdomen pelvis CT with contrast 02/19/2018. TECHNIQUE: Helical CT of the abdomen and pelvis was performed without oral or intravenous contrast as per referring physician request. Coronal and sagittal reformats were generated. Contrast dose: None Radiation dose: Total exam DLP = 466.0 mGy-cm. This CT exam was performed using one or more of the following dose reduction techniques: Automated exposure control, adjustment of the mA and/or kV according to patient size, and/or use of iterative reconstruction technique. FINDINGS: LOWER THORAX: A mild left pleural effusion is identified increased in volume in the interval with limited left lower lobe compression atelectasis. Nodular fibrosis is unchanged at the medial right base with no right pleural effusion or pericardial effusion evident at this time. LIVER: Prior pneumobilia at the nondependent liver is now not identified. Postoperative changes are again seen at the gallbladder fossa/epigastric region GALLBLADDER AND BILE DUCTS: Prior cholecystectomy. Distal common bile duct remains dilated to approximately 12 mm without obvious choledocholithiasis appreciable. PANCREAS: Chronic pancreatitis is again seen with likely persistent dilatation of the pancreatic duct. No interval peripancreatic fluid collection or reaction appreciable. SPLEEN: Unremarkable. ADRENALS: Unremarkable. No mass. KIDNEYS AND URETERS: Small right renal lucencies are stable limited evaluation due to lack images contrast no obstructive uropathy bilaterally. Small hyperdense cyst unchanged at at the apex of the right kidney with exophytic left renal cyst unchanged again measuring 2.7 cm. VASCULATURE: Nonaneurysmal abdominal aortoiliac calcific atherosclerotic changes are identified. Further, infrarenal inferior vena cava filter is again noted in situ at IVC. BOWEL: Prominent retained fecal material is identified at the bilateral flexures as well as the transverse colon with a left paracentral colostomy reiterated. Anastomotic suture line is again identified at the left paracentral lower abdomen/upper pelvis as well as left flank inferolateral to colostomy site. Thickening of a bowel loop in the left flank is questioned (series 3, image [id number]). Lack of oral contrast limits interpretation significantly. Prominent retained fecal material is seen in the rectum APPENDIX: Not identified. PERITONEUM: Unremarkable. No free fluid. No free air. LYMPH NODES: Unremarkable. No enlarged lymph nodes. BLADDER: Russell catheter decompresses the urinary bladder. REPRODUCTIVE: Artifact from orthopedic hardware at the bilateral hip joints obscures imaging through the pelvis. BONES: Chronic L1 compression fracture remains mild. OTHER FINDINGS: None. IMPRESSION: 1. Limited exam due lack contrast agents with colostomy again seen at the left paracentral upper abdomen. Distended retained fecal material seen throughout the bilateral flexures and the transverse colon as well as the rectum. No definite small bowel obstruction. Thickening of possible large or small bowel loops at the left flank is questioned anteriorly which measures question of colitis favored over enteritis given size of bowel loop. 2. Prior cholecystectomy again evident. Dilated CBD suspected of the 12 mm. 3. Anastomotic suture material lines are again seen involving bowel at the left flank and left paracentral lower abdomen. 4. Chronic pancreatitis reiterated.
[2018-03-11 09:36] VITALS: PULSE 84
[2018-03-11] MEDS ORDERED: Oxycodone/Acetaminophen 5/325 mg Tab ONE (11:01)
[2018-03-11] MEDS ORDERED: Oxycodone/Acetaminophen 5/325 mg Tab PO ONE (11:02)
[2018-03-11 13:17] VITALS: BP 101/52; TEMP 98.1
[2018-03-13 10:02] VITALS: O2SAT 98
== END 2018-03-11 13:00 | disposition short-term general hospital (02) ==
LOC: H.ER 04:26
DX: M79.606 Pain in leg, unspecified (principal); G89.29 Other chronic pain; J44.9 Chronic obstructive pulmonary disease, unspecified; M06.9 Rheumatoid arthritis, unspecified; Z86.718 Personal history of other venous thrombosis and embolism; Z87.891 Personal history of nicotine dependence; Z90.49 Acquired absence of other specified parts of digestive tract; Z93.3 Colostomy status; Z85.028 Personal history of other malignant neoplasm of stomach; I11.0 Hypertensive heart disease with heart failure
CPT/HCPCS: 74176; 80053; 85025; 99284; J7030

== ENCOUNTER 2018-03-24 17:30 | Inpatient (IN) | payer MEDICARE, MEDICAID ==
[2018-03-24] MEDS ORDERED: Sodium Chloride 0.9% 1,000 ML IV STA ×2 (17:47→19:47)
--- NOTE | 2018-03-24 17:49 | ED PDOC ---
HPI: General Adult Time Seen by Provider: 03/24/18 17:40 Chief Complaint (Nursing): Abnormal Labs Chief Complaint (Provider): Decreased responsiveness and low sodium History Per: EMS, Other (senior care paperwork) History/Exam Limitations: clinical condition Onset/Duration Of Symptoms: Days (today) Additional Complaint(s): Per senior care records pt. had a low sodium and abnormal labs. Was also decreased in responsiveness today so sent to the ER. Pt. follows some commands, but does not respond appropriately to questions. Cursing when asked his name. Pt. not eating for 2 days. Pulling out IV lines. NIHSS Stroke Scale - Date/Time Evaluation Performed Date Performed: 03/24/18 Time Performed: 17:45 When Was NIHSS Performed: Baseline - How Severe is the Stroke Level of Consciousness: 0=Alert LOC to Questions: 2=Neither correct LOC to commands: 2=Neither correct Best Gaze: 0=Normal Visual: 0=No visual loss Facial: 0=Normal Motor Arm - Left: 2=Falls before 10 sec Motor Arm - Right: 2=Falls before 10 sec Motor Leg - Left: 2=Falls before 5 sec Motor Leg - Right: 2=Falls before 5 sec Limb Ataxia: 2=Present both Sensory: 0=Normal Best Language: 1=Mild to moderate aphasia Dysarthia: 1=Mild to moderate slurring Extinction & Inattention (Neglect): 0=Normal, no object Score: 16 rTPA Inclusion/Exclusion - Refusal of Treatment Patient Refused Treatment: No - Inclusion Criteria for Altepase Patient is 18 years or Older: Yes The Clinical Diagnosis of Ischemic Stroke That is Causing a Potentially Disabling Neurological Deficit: No Time of Onset is Well Established to be Less Than 270 Minute Before Treatment Would Begin: No Risk/Benefit Discussed With Patient/Family Member Present: No Past Medical History Reviewed: Nursing Documentation, Vital Signs Vital Signs: Last Vital Signs Temp 97.2 F L 03/24/18 17:33 Pulse 68 03/24/18 17:33 Resp 18 03/24/18 17:33 BP 75/48 L 03/24/18 17:33 Pulse Ox 96 03/24/18 17:33 - Medical History PMH: Arthritis, Atrial Fibrillation, Back Problems, CHF, COPD, Deep Vein Thrombo sis, Fractures, HTN, Malignancy (stomach CA), Pneumonia, Rheumatoid Arthritis Denies: HIV, Chronic Kidney Disease - Surgical History Surgical History: Back Surgery, Cholecystectomy Denies: Pacemaker - Family History Family History: States: Unknown Family Hx - Living Arrangements Living Arrangements: [facility] - Social History Alcohol: None Drugs: Denies - Immunization History Hx Influenza Vaccination: No Hx Pneumococcal Vaccination: No - Home Medications Home Medications: Ambulatory Orders Medication Instructions Recorded Cyproheptadine HCl 4 mg PO BID 03/24/18 Docusate Sodium [Colace] 1 cap PO BID 03/24/18 Enoxaparin [Lovenox] 0.4 ml INJ DAILY 03/24/18 - Allergies Allergies/Adverse Reactions: Allergies Allergy/AdvReac Type Severity Reaction Status Date / Time No Known Allergies Allergy Verified 02/19/18 14:57 Review of Systems Review Of Systems: ROS cannot be obtained secondary to pt's inabilty to answer questions. Physical Exam - Reviewed Nursing Documentation Reviewed: Yes Vital Signs Reviewed: Yes - Physical Exam Appears: Positive for: Uncomfortable Head Exam: Positive for: ATRAUMATIC, NORMAL INSPECTION, NORMOCEPHALIC Skin: Positive for: Normal Color, Warm, DRY Eye Exam: Positive for: PERRL. Negative for: Periorbital swelling, Periorbital tenderness ENT: Negative for: Nasal Congestion, Pharyngeal Erythema Neck: Positive for: Normal, Painless ROM, Supple Cardiovascular/Chest: Positive for: Regular Rate, Rhythm. Negative for: Edema Respiratory: Positive for: Normal Breath Sounds, Decreased Breath Sounds Gastrointestinal/Abdominal: Positive for: Soft. Negative for: Tenderness (colostomy bag in place with no erythema, tenderness; urine bag present) Male Genital Exam: Positive for: other (connors in place with no erythema/swelling of penis) Back: Positive for: Other (buttox with mild redness). Negative for: L CVA Tenderness, R CVA Tenderness Extremity: Negative for: Tenderness, Pedal Edema Neurologic/Psych: Positive for: Alert, Other (pt. moving extremities on his will; follows some commands, but cursing when asked his name; ). Negative for: Oriented, Facial Droop - Laboratory Results Result Diagrams: 03/24/18 18:50 Interpretation Of Abn Labs: 12.5 phos, 126 na, 118 bun/ elevated cr - ECG ECG: Positive for: Interpreted By Me, Viewed By Me ECG Rhythm: Positive for: Sinus Rhythm Interpretation Of Abn EKG: PACs O2 Sat by Pulse Oximetry: 96 Pulse Ox Interpretation: Normal - Radiology X-Ray: Interpreted by Me, Viewed By Me X-Ray Interpretation: No Acute Disease - Progress ED Course And Treament: CT head: 1. There is a small right cerebellar infarct. 2. Age appropriate involutional changes. 3. Small right basal ganglia infarct 4. Several small calcifications of the basal ganglia, normal variant. 5. No midline shift, discernible mass effect, or vascular territorial edema, subdural collections, or recent intracranial hemorrhage. 6. Visualized portions of the paranasal sinuses and mastoid air cells are well- aerated. 2011: Stable. Spoke with Dr. Anton. Well known pt. to him. Will admit tele. BP improving. Likely dehydration and acute renal insuff. Continue hydration. 2020: Spoke with Dr. Jackson. Made aware of all findings. States likely chronic vs. subacute infarct and cause of symptoms could be from metabolic issues. Will give rectal asa. Not a thrombolytic candidate. 2044: Spoke with Dr. Cummins. Will admit ICU. - Critical Care Total Time (In Min): 60 Documented Critical Care: Time excludes all time spent performint seperately billable procedures Disposition - Clinical Impression Clinical Impression: Sepsis, UTI (urinary tract infection), Renal insufficiency, Dehydration, Hyponatremia, High phosphate levels, Focal infarction of brain - Patient ED Disposition Is Patient to be Admitted: Yes - Disposition Disposition Time: 20:00 Condition: GUARDED - Pt Status Changed To: Hospital Disposition Of: Inpatient - Admit Certification Admit to Inpatient:: After my assessment, the patient will require hospitalization for at least two midnights. This is because of the severity of symptoms shown, intensity of services needed, and/or the medical risk in this patient being treated as an outpatient. - POA Present On Arrival: Pressure Ulcer (stage 1 erythema on buttox)
[2018-03-24 18:37] LABS: URINE BILIRUBIN SMALL (NEGATIVE); URINE BLOOD SMALL (NEGATIVE); URINE CALCIUM OXALATE CRYSTALS OCC /hpf (<OCC); URINE CLARITY CLOUDY (Clear); URINE COLOR AMBER (YELLOW); URINE GLUCOSE (UA) NEG (Normal); URINE LEUKOCYTE ESTERASE MOD Leu/uL (Negative); URINE PROTEIN 30 mg/dL (NEGATIVE)
[2018-03-24 19:08] LABS: BASO % 0.3 % (0.0-2.0); EOS % 0.1 % (0.0-4.0); HEMOGLOBIN 13.4 g/dL (12.0-18.0); LYMPH # 0.8 K/uL (1.0-4.3); LYMPH % 12.4 % (20.0-40.0); MEAN CELL VOLUME 100.4 fl (80.0-94.0); MEAN CORPUSCULAR HEMOGLOBIN 34.4 pg (27.0-31.0); MEAN CORPUSCULAR HGB CONC 34.3 g/dL (33.0-37.0); MEAN PLATELET VOLUME 7.6 fl (7.2-11.7); MONO # 0.5 K/uL (0.0-0.8); NEUT # 4.9 K/uL (1.8-7.0); NEUT % 79.2 % (50.0-75.0); NRBC % 0.1 % (0.0-0.0); RBC 3.9 Mil/uL (4.40-5.90); RED CELL DISTRIBUTION WIDTH 16.9 % (11.5-14.5); WHITE BLOOD COUNT 6.2 K/uL (4.8-10.8)
[2018-03-24 19:13] LABS: INR 1.2; PROTHROMBIN TIME 13.8 Seconds (9.8-13.1)
[2018-03-24 19:15] LABS: PARTIAL THROMBOPLASTIN TIME 26.4 Seconds (25.6-37.1)
[2018-03-24 19:21] LABS: VENOUS BLOOD GAS BASE EXCESS -13.3 mmol/L (0.0-2.0); VENOUS BLOOD GAS PCO2 40 mmHg (40-60); VENOUS BLOOD GAS PO2 28 mm/Hg (30-55); VENOUS BLOOD PH 7.17 (7.32-7.43)
[2018-03-24] MEDS ORDERED: AMPicillin 1 GM in Sodium Chloride 0.9% 100 ML IVPB STA ×2 (19:25→19:51)
[2018-03-24] MEDS ORDERED: Gentamicin 250 MG in Sodium Chloride 0.9% 250 ML IVPB STA (19:34)
[2018-03-24 19:39] LABS: ALB/GLOB RATIO 0.6 (1.0-2.1); ALBUMIN 3.3 g/dL (3.5-5.0); CALCIUM 8.2 mg/dL (8.4-10.2); TROPONIN I 0.018 ng/mL (0.00-0.120)
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
[2018-03-24] MEDS ORDERED: Albuterol 0.083% Inhal Sol (2.5 mg/3 mL) UD INH STA (21:22)
[2018-03-24] MEDS ORDERED: Albuterol 0.083% Inhal Sol (2.5 mg/3 mL) UD ONE (21:36)
[2018-03-24] MEDS ORDERED: Meropenem 500 MG in Sodium Chloride 0.9% 100 ML IVPB STA (22:00)
[2018-03-24] MEDS ORDERED: Sodium Chloride 0.9% 1,000 ML IV SCH (22:15)
[2018-03-25] MEDS: Albuterol 0.083% Inhal Sol (2.5 mg/3 mL) UD INH SCH ×4 (01:14→19:17)
[2018-03-25] MEDS ORDERED: Sodium Chloride 0.9% 1,000 ML IV SCH ×2 (02:30→05:30)
--- NOTE | 2018-03-25 04:19 | PCM.PROC ---
Procedures Attestation:: I certify that I have explained the specified Operation(s) or Procedure(s), risks, benefits and reasonable alternatives to the Patient and/or other person responsible. The opportunity was given to ask questions and all questions answered - Central Line Placement Left Femoral Triple Lumen Catheter Aseptic technique was employed throughout the procedure: Hand Hygiene done prior to procedure, Full sterile barriers (mask, hair cover, sterile gown, sterile gloves), Full body sterile drape, Chloraprep Antiseptic: 2 minute prep for Femoral CVP Time Out Performed: No Pt. Placed on Pulse Ox Monitor: Yes Central Line Prep: Chlorhexidine-Alcohol Combination Ultrasound Used for Placement: Yes Central Line Lumen Inserted: triple Central Line Length: 20 cm Post Procedure: Sutured in Place, Good Blood Return, All Ports Aspirated, Flushed, Capped, Sterile Dressing Applied Secured by: Suture Post procedure dressing: Clear vapor permeable Post Procedure X-Ray: No Patient Tolerated Procedure: No Complications Immediate Complications: None
[2018-03-25] MEDS: Sodium Bicarbonate 8.4% 150 MEQ in Dextrose 5%/0.45% NS 1,000 ML IV SCH ×2 (04:40→13:38)
[2018-03-25 06:24] LABS: BASO % 0.2 % (0.0-2.0); EOS % 0.1 % (0.0-4.0); HEMOGLOBIN 10.3 g/dL (12.0-18.0); LYMPH # 0.6 K/uL (1.0-4.3); LYMPH % 11.1 % (20.0-40.0); MEAN CELL VOLUME 100.6 fl (80.0-94.0); MEAN CORPUSCULAR HEMOGLOBIN 34.6 pg (27.0-31.0); MEAN CORPUSCULAR HGB CONC 34.4 g/dL (33.0-37.0); MEAN PLATELET VOLUME 7.2 fl (7.2-11.7); MONO # 0.3 K/uL (0.0-0.8); MONO % 6.4 % (0.0-10.0); NEUT # 4.2 K/uL (1.8-7.0); NEUT % 82.2 % (50.0-75.0); NRBC % 0.1 % (0.0-0.0); RBC 2.99 Mil/uL (4.40-5.90); RED CELL DISTRIBUTION WIDTH 16.9 % (11.5-14.5); WHITE BLOOD COUNT 5.1 K/uL (4.8-10.8)
[2018-03-25 06:27] LABS: CALCIUM 7.1 mg/dL (8.4-10.2)
--- NOTE | 2018-03-25 07:49 | CP.CCUPN ---
CCU Subjective - Physician Review Subjective (Free Text): 03/25/18 12:50 The patient was Seen/interviewed and examined by me at the bedside during ICU round, Medical records reviewed and Management issues were discussed and formulated with the house staff. Events reviewed Mr Wolf is 72 year old male with a past medical history of HTN, atrial fibrillation, CHF, COPD, Deep Vein Thrombosis, Fractures, Rheumatoid Arthritis, Back Problems and Malignancy (stomach CA) Who was sent from [facility] for altered mental statue, not eating for 2 days and with abnormal labs of Sodium 126; BUN of 118 and Creatinine of 4.4. In the Emergency department patient was lethargic, confused and barely opening eyes to verbal commands, BP 75/48mmHg. labs revealed SAMANTHA with hyperkalemia, hyponatremia Central line placed, Agressive IV volume resuscitaions and was started on Levophed This morning he is more Alert and oriented to self. Continues to be intermittently agitated No Abdomen Pain/tenderness Comfortable, in no Distress Afebrile BP has been stable, on small dose Vasopressors Breathing unlabored, on room air O2 sat 100%. A_Fib on the monitor Last 24H I&O 2400/ This morning labs revealed Slightly better renal function, No Leucocytosis H/H dropped to 10.3/30 No evidence of active bleed Platelets trending down 207 to 130 today, suspect sepsis related Pt is NPO Will be seen by Speech therapy Of note Patient presented to the emergency department in 06/2017 complaining of abdominal pain, was admitted with Acute abdomen, free air sec to perforated viscous 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 03/25/18 13:14 CCU Objective - Vital Signs / Intake & Output Intake and Output (Last 8hrs): Intake & Output 03/24/18 03/25/18 03/25/18 22:59 06:59 14:59 Weight 110 lb - Physical Exam Physical Exam Limitations: Positive for: Altered Mental Status, Clinical Condition, Uncooperative Head: Positive for: Atraumatic, Normocephalic Pupils: Positive for: PERRL. Negative for: Sluggish, Non-Reactive, Pinpoint Extroacular Muscles: Positive for: EOMI Conjunctiva: Positive for: Normal. Negative for: Injected, Icteric Ears: Positive for: Normal, NORMAL TM Mouth: Positive for: Moist Mucous Membranes Pharnyx: Positive for: Normal Nose (Internal): Positive for: Normal Inspection Neck: Positive for: Normal Range of Motion, Trachea Midline. Negative for: Meningeal Signs, MIDLINE TENDERNESS, Paraspinal Tenderness, JVD, Lymphadenopathy, Bruit, Other Respiratory/Chest: Positive for: Clear to Auscultation, Good Air Exchange, Rales, Rhonchi. Negative for: Respiratory Distress, Accessory Muscle Use, Tachypneic Cardiovascular: Positive for: Regular Rate and Rhythm, Normal S1, S2. Negative for: Murmurs, Irregular Rhythm Abdomen: Positive for: Normal Bowel Sounds, Ostomy Tubes. Negative for: Tenderness, Distention Lower Extremity: Positive for: Edema, NORMAL PULSES, Capillary Refill < 2 s. Negative for: CALF TENDERNESS Neurological: Positive for: Motor Func Grossly Intact Skin: Positive for: Warm. Negative for: Dry, Rashes - Medications Active Medications: Active Medications Generic Name Dose Route Start Last Admin Trade Name Freq PRN Reason Stop Dose Admin Albuterol Sulfate 2.5 mg 03/25/18 02:00 03/25/18 07:29 Albuterol 0.083% Inhal Mary (2.5 Mg/3 Ml) Ud INH 2.5 mg RQ6 CHARMAINE Administration Heparin Sodium (Porcine) 5,000 units 03/25/18 01:00 03/25/18 01:30 Heparin SC 5,000 units Q8 CHARMAINE Administration Protocol Sodium Bicarbonate 150 meq/ 1,150 mls @ 150 mls/hr 03/24/18 22:15 03/25/18 04:40 Dextrose/Sodium Chloride IV 03/25/18 22:10 150 mls/hr .Q7H40M CHARMAINE Administration Sodium Chloride 1,000 mls @ 1,000 mls/hr 03/25/18 02:30 03/25/18 04:41 Sodium Chloride 0.9% IV 03/26/18 02:19 1,000 mls/hr .Q1H CHARMAINE Administration Sodium Chloride 1,000 mls @ 1,000 mls/hr 03/25/18 05:30 03/25/18 05:30 Sodium Chloride 0.9% IV 03/26/18 05:29 1,000 mls/hr .Q1H CHARMAINE Administration Norepinephrine Bitartrate 4 mg 254 mls @ 9.53 mls/hr 03/25/18 07:15 / Dextrose IV .Q24H CHARMAINE Protocol 2.5 MCG/MIN Lactulose 20 gm 03/25/18 07:45 Enulose PO Q4H CHARMAINE - Patient Studies Lab Studies: Lab Studies 03/25/18 03/25/18 03/25/18 Range/Units 04:30 04:30 04:30 WBC 5.1 (4.8-10.8) K/uL RBC 2.99 L (4.40-5.90) Mil/uL Hgb 10.3 L D (12.0-18.0) g/dL Hct 30.0 L (35.0-51.0) % MCV 100.6 H (80.0-94.0) fl MCH 34.6 H (27.0-31.0) pg MCHC 34.4 (33.0-37.0) g/dL RDW 16.9 H (11.5-14.5) % Plt Count 130 (130-400) K/uL MPV 7.2 (7.2-11.7) fl Neut % (Auto) 82.2 H (50.0-75.0) % Lymph % (Auto) 11.1 L (20.0-40.0) % [place] % (Auto) 6.4 (0.0-10.0) % Eos % (Auto) 0.1 (0.0-4.0) % Baso % (Auto) 0.2 (0.0-2.0) % Neut # (Auto) 4.2 (1.8-7.0) K/uL Lymph # (Auto) 0.6 L (1.0-4.3) K/uL [place] # (Auto) 0.3 (0.0-0.8) K/uL Eos # (Auto) 0.0 (0.0-0.7) K/uL Baso # (Auto) 0.0 (0.0-0.2) K/uL PT (9.8-13.1) Seconds INR APTT (25.6-37.1) Seconds pO2 (30-55) mm/Hg VBG pH (7.32-7.43) VBG pCO2 (40-60) mmHg VBG HCO3 mmol/L VBG Total CO2 (22-28) mmol/L VBG O2 Sat (Calc) (40-65) % VBG Base Excess (0.0-2.0) mmol/L VBG Potassium (3.6-5.2) mmol/L Glucose (75-110) mg/dL Lactate (0.7-2.1) mmol/L FiO2 % Crit Value Called To Crit Value Called By Crit Value Read Back Blood Gas Notified Time Sodium 128 L (132-148) mmol/l Potassium 4.6 (3.6-5.0) MMOL/L Chloride 105 (98-107) mmol/L Carbon Dioxide 12 L (22-30) mmol/L Anion Gap 16 (10-20) BUN 108 H* (9-20) mg/dl Creatinine 4.0 H (0.8-1.5) mg/dl Est GFR ( Amer) 18 Est GFR (Non-Af Amer) 15 Random Glucose 107 (75-110) mg/dL Calcium 7.1 L (8.4-10.2) mg/dL Phosphorus (2.5-4.5) mg/dl Magnesium (1.6-2.3) MG/DL Total Bilirubin (0.2-1.3) mg/dl AST (17-59) U/L ALT (21-72) U/L Alkaline Phosphatase (38-126) U/L Ammonia 185 H* D (16-60) umo/L Troponin I (0.00-0.120) ng/mL Total Protein (6.3-8.2) G/DL Albumin (3.5-5.0) g/dL Globulin (2.2-3.9) gm/dL Albumin/Globulin Ratio (1.0-2.1) Venous Blood Potassium (3.6-5.2) mmol/L Urine Color (YELLOW) Urine Clarity (Clear) Urine pH (5.0-8.0) Ur Specific [place] (1.003-1.030) Urine Protein (NEGATIVE) mg/dL Urine Glucose (UA) (Normal) mg/dL Urine Ketones (NEGATIVE) mg/dL Urine Blood (NEGATIVE) Urine Nitrate (NEGATIVE) Urine Bilirubin (NEGATIVE) Urine Urobilinogen (0.2-1.0) mg/dL Ur Leukocyte Esterase (Negative) He/uL Urine RBC (Auto) (0-3) /hpf Urine Microscopic WBC (0-5) /hpf Calcium Oxalate Crystal (<OCC) /hpf 03/24/18 03/24/18 03/24/18 Range/Units 20:14 19:11 18:50 WBC (4.8-10.8) K/uL RBC (4.40-5.90) Mil/uL Hgb (12.0-18.0) g/dL Hct (35.0-51.0) % MCV (80.0-94.0) fl MCH (27.0-31.0) pg MCHC (33.0-37.0) g/dL RDW (11.5-14.5) % Plt Count (130-400) K/uL MPV (7.2-11.7) fl Neut % (Auto) (50.0-75.0) % Lymph % (Auto) (20.0-40.0) % [place] % (Auto) (0.0-10.0) % Eos % (Auto) (0.0-4.0) % Baso % (Auto) (0.0-2.0) % Neut # (Auto) (1.8-7.0) K/uL Lymph # (Auto) (1.0-4.3) K/uL [place] # (Auto) (0.0-0.8) K/uL Eos # (Auto) (0.0-0.7) K/uL Baso # (Auto) (0.0-0.2) K/uL PT 13.8 H (9.8-13.1) Seconds INR 1.2 APTT 26.4 (25.6-37.1) Seconds pO2 28 L (30-55) mm/Hg VBG pH 7.17 L* (7.32-7.43) VBG pCO2 40 (40-60) mmHg VBG HCO3 12.9 mmol/L VBG Total CO2 15.8 L (22-28) mmol/L VBG O2 Sat (Calc) 44.9 (40-65) % VBG Base Excess -13.3 L (0.0-2.0) mmol/L VBG Potassium 7.6 H* (3.6-5.2) mmol/L Glucose 110 (75-110) mg/dL Lactate 2.1 (0.7-2.1) mmol/L FiO2 21.0 % Crit Value Called To erik Puente md Crit Value Called By Britton dumont Crit Value Read Back Y Blood Gas Notified Time 1920 Sodium 120.0 L* (132-148) mmol/l Potassium 5.3 H (3.6-5.0) MMOL/L Chloride 92.0 L (98-107) mmol/L Carbon Dioxide (22-30) mmol/L Anion Gap (10-20) BUN (9-20) mg/dl Creatinine (0.8-1.5) mg/dl Est GFR ( Amer) Est GFR (Non-Af Amer) Random Glucose (75-110) mg/dL Calcium (8.4-10.2) mg/dL Phosphorus (2.5-4.5) mg/dl Magnesium (1.6-2.3) MG/DL Total Bilirubin (0.2-1.3) mg/dl AST (17-59) U/L ALT (21-72) U/L Alkaline Phosphatase (38-126) U/L Ammonia (16-60) umo/L Troponin I (0.00-0.120) ng/mL Total Protein (6.3-8.2) G/DL Albumin (3.5-5.0) g/dL Globulin (2.2-3.9) gm/dL Albumin/Globulin Ratio (1.0-2.1) Venous Blood Potassium 7.6 H* (3.6-5.2) mmol/L Urine Color (YELLOW) Urine Clarity (Clear) Urine pH (5.0-8.0) Ur Specific [place] (1.003-1.030) Urine Protein (NEGATIVE) mg/dL Urine Glucose (UA) (Normal) mg/dL Urine Ketones (NEGATIVE) mg/dL Urine Blood (NEGATIVE) Urine Nitrate (NEGATIVE) Urine Bilirubin (NEGATIVE) Urine Urobilinogen (0.2-1.0) mg/dL Ur Leukocyte Esterase (Negative) He/uL Urine RBC (Auto) (0-3) /hpf Urine Microscopic WBC (0-5) /hpf Calcium Oxalate Crystal (<OCC) /hpf 03/24/18 03/24/18 03/24/18 Range/Units 18:50 18:50 18:25 WBC 6.2 (4.8-10.8) K/uL RBC 3.90 L (4.40-5.90) Mil/uL Hgb 13.4 D (12.0-18.0) g/dL Hct 39.1 (35.0-51.0) % MCV 100.4 H (80.0-94.0) fl MCH 34.4 H (27.0-31.0) pg MCHC 34.3 (33.0-37.0) g/dL RDW 16.9 H (11.5-14.5) % Plt Count 207 D (130-400) K/uL MPV 7.6 (7.2-11.7) fl Neut % (Auto) 79.2 H (50.0-75.0) % Lymph % (Auto) 12.4 L (20.0-40.0) % [place] % (Auto) 8.0 (0.0-10.0) % Eos % (Auto) 0.1 (0.0-4.0) % Baso % (Auto) 0.3 (0.0-2.0) % Neut # (Auto) 4.9 (1.8-7.0) K/uL Lymph # (Auto) 0.8 L (1.0-4.3) K/uL [place] # (Auto) 0.5 (0.0-0.8) K/uL Eos # (Auto) 0.0 (0.0-0.7) K/uL Baso # (Auto) 0.0 (0.0-0.2) K/uL PT (9.8-13.1) Seconds INR APTT (25.6-37.1) Seconds pO2 (30-55) mm/Hg VBG pH (7.32-7.43) VBG pCO2 (40-60) mmHg VBG HCO3 mmol/L VBG Total CO2 (22-28) mmol/L VBG O2 Sat (Calc) (40-65) % VBG Base Excess (0.0-2.0) mmol/L VBG Potassium (3.6-5.2) mmol/L Glucose (75-110) mg/dL Lactate (0.7-2.1) mmol/L FiO2 % Crit Value Called To Crit Value Called By Crit Value Read Back Blood Gas Notified Time Sodium 126 L (132-148) mmol/l Potassium 5.6 H (3.6-5.0) MMOL/L Chloride 95 L (98-107) mmol/L Carbon Dioxide 13 L (22-30) mmol/L Anion Gap 24 H (10-20) BUN 118 H* D (9-20) mg/dl Creatinine 4.4 H (0.8-1.5) mg/dl Est GFR ( Amer) 16 Est GFR (Non-Af Amer) 13 Random Glucose 114 H (75-110) mg/dL Calcium 8.2 L (8.4-10.2) mg/dL Phosphorus 12.5 H (2.5-4.5) mg/dl Magnesium 2.3 (1.6-2.3) MG/DL Total Bilirubin 2.2 H (0.2-1.3) mg/dl AST 37 (17-59) U/L ALT 33 (21-72) U/L Alkaline Phosphatase 147 H D (38-126) U/L Ammonia (16-60) umo/L Troponin I 0.0180 (0.00-0.120) ng/mL Total Protein 8.5 H (6.3-8.2) G/DL Albumin 3.3 L D (3.5-5.0) g/dL Globulin 5.2 H (2.2-3.9) gm/dL Albumin/Globulin Ratio 0.6 L (1.0-2.1) Venous Blood Potassium (3.6-5.2) mmol/L Urine Color [place] (YELLOW) Urine Clarity Cloudy (Clear) Urine pH 7.0 (5.0-8.0) Ur Specific [place] 1.015 (1.003-1.030) Urine Protein 30 (NEGATIVE) mg/dL Urine Glucose (UA) Neg (Normal) mg/dL Urine Ketones Negative (NEGATIVE) mg/dL Urine Blood Small (NEGATIVE) Urine Nitrate Positive H (NEGATIVE) Urine Bilirubin Small (NEGATIVE) Urine Urobilinogen 4.0 (0.2-1.0) mg/dL Ur Leukocyte Esterase Mod (Negative) He/uL Urine RBC (Auto) 12 H (0-3) /hpf Urine Microscopic WBC 6 H (0-5) /hpf Calcium Oxalate Crystal Occ H (<OCC) /hpf Laboratory Results - last 24 hr 03/24/18 03/24/18 03/24/18 18:25 18:50 18:50 WBC 6.2 RBC 3.90 L Hgb 13.4 D Hct 39.1 MCV 100.4 H MCH 34.4 H MCHC 34.3 RDW 16.9 H Plt Count 207 D MPV 7.6 Neut % (Auto) 79.2 H Lymph % (Auto) 12.4 L [place] % (Auto) 8.0 Eos % (Auto) 0.1 Baso % (Auto) 0.3 Neut # (Auto) 4.9 Lymph # (Auto) 0.8 L [place] # (Auto) 0.5 Eos # (Auto) 0.0 Baso # (Auto) 0.0 PT INR APTT pO2 VBG pH VBG pCO2 VBG HCO3 VBG Total CO2 VBG O2 Sat (Calc) VBG Base Excess VBG Potassium Glucose Lactate FiO2 Crit Value Called To Crit Value Called By Crit Value Read Back Blood Gas Notified Time Sodium 126 L Potassium 5.6 H Chloride 95 L Carbon Dioxide 13 L Anion Gap 24 H BUN 118 H* D Creatinine 4.4 H Est GFR ( Amer) 16 Est GFR (Non-Af Amer) 13 Random Glucose 114 H Calcium 8.2 L Phosphorus 12.5 H Magnesium 2.3 Total Bilirubin 2.2 H AST 37 ALT 33 Alkaline Phosphatase 147 H D Ammonia Troponin I 0.0180 Total Protein 8.5 H Albumin 3.3 L D Globulin 5.2 H Albumin/Globulin Ratio 0.6 L Venous Blood Potassium Urine Color [place] Urine Clarity Cloudy Urine pH 7.0 Ur Specific [place] 1.015 Urine Protein 30 Urine Glucose (UA) Neg Urine Ketones Negative Urine Blood Small Urine Nitrate Positive H Urine Bilirubin Small Urine Urobilinogen 4.0 Ur Leukocyte Esterase Mod Urine RBC (Auto) 12 H Urine Microscopic WBC 6 H Calcium Oxalate Crystal Occ H 03/24/18 03/24/18 03/24/18 18:50 19:11 20:14 WBC RBC Hgb Hct MCV MCH MCHC RDW Plt Count MPV Neut % (Auto) Lymph % (Auto) [place] % (Auto) Eos % (Auto) Baso % (Auto) Neut # (Auto) Lymph # (Auto) [place] # (Auto) Eos # (Auto) Baso # (Auto) PT 13.8 H INR 1.2 APTT 26.4 pO2 28 L VBG pH 7.17 L* VBG pCO2 40 VBG HCO3 12.9 VBG Total CO2 15.8 L VBG O2 Sat (Calc) 44.9 VBG Base Excess -13.3 L VBG Potassium 7.6 H* Glucose 110 Lactate 2.1 FiO2 21.0 Crit Value Called To erik Puente md Crit Value Called By Britton dumont Crit Value Read Back Y Blood Gas Notified Time 1920 Sodium 120.0 L* Potassium 5.3 H Chloride 92.0 L Carbon Dioxide Anion Gap BUN Creatinine Est GFR ( Amer) Est GFR (Non-Af Amer) Random Glucose Calcium Phosphorus Magnesium Total Bilirubin AST ALT Alkaline Phosphatase Ammonia Troponin I Total Protein Albumin Globulin Albumin/Globulin Ratio Venous Blood Potassium 7.6 H* Urine Color Urine Clarity Urine pH Ur Specific [place] Urine Protein Urine Glucose (UA) Urine Ketones Urine Blood Urine Nitrate Urine Bilirubin Urine Urobilinogen Ur Leukocyte Esterase Urine RBC (Auto) Urine Microscopic WBC Calcium Oxalate Crystal 03/25/18 03/25/18 03/25/18 04:30 04:30 04:30 WBC 5.1 RBC 2.99 L Hgb 10.3 L D Hct 30.0 L MCV 100.6 H MCH 34.6 H MCHC 34.4 RDW 16.9 H Plt Count 130 MPV 7.2 Neut % (Auto) 82.2 H Lymph % (Auto) 11.1 L [place] % (Auto) 6.4 Eos % (Auto) 0.1 Baso % (Auto) 0.2 Neut # (Auto) 4.2 Lymph # (Auto) 0.6 L [place] # (Auto) 0.3 Eos # (Auto) 0.0 Baso # (Auto) 0.0 PT INR APTT pO2 VBG pH VBG pCO2 VBG HCO3 VBG Total CO2 VBG O2 Sat (Calc) VBG Base Excess VBG Potassium Glucose Lactate FiO2 Crit Value Called To Crit Value Called By Crit Value Read Back Blood Gas Notified Time Sodium 128 L Potassium 4.6 Chloride 105 Carbon Dioxide 12 L Anion Gap 16 BUN 108 H* Creatinine 4.0 H Est GFR ( Amer) 18 Est GFR (Non-Af Amer) 15 Random Glucose 107 Calcium 7.1 L Phosphorus Magnesium Total Bilirubin AST ALT Alkaline Phosphatase Ammonia 185 H* D Troponin I Total Protein Albumin Globulin Albumin/Globulin Ratio Venous Blood Potassium Urine Color Urine Clarity Urine pH Ur Specific [place] Urine Protein Urine Glucose (UA) Urine Ketones Urine Blood Urine Nitrate Urine Bilirubin Urine Urobilinogen Ur Leukocyte Esterase Urine RBC (Auto) Urine Microscopic WBC Calcium Oxalate Crystal EKG/Cardiology Studies: Cardiology / EKG Studies 03/24/18 17:47 ELECTROCARDIOGRAM Stat Comment: Mode Of Transportation: Reason For Exam: Sepsis Patient Fingerstick Blood Sugar Results: 109 Review of Systems - Constitutional Constitutional: absent: Fever, Chills, Sweats, Weakness - Cardiovascular Cardiovascular: UNREMARKABLE. absent: Chest Pain, Chest Pain at Rest, Chest Pain with Activity, Claudication, Diaphoresis - Respiratory Respiratory: absent: Cough, Dyspnea, Hemoptysis, Dyspnea on Exertion, Wheezing, Snoring, Stridor - Gastrointestinal Gastrointestinal: Abdominal Pain Critical Care Progress Note - Nutrition Nutrition: Nutrition Category Date Time Status NPO Diet [DIET] Diets 03/24/18 Dinner Active Assessment/Plan (1) Septic shock Current Visit: Yes Status: Acute Priority: High Comment: Benites culture Start IV Vancomycin and Piperacillin Sod/Tazobactam Patient has history of Wound C/S positive for mathew, Will consider adding Micafungin Sodium 100 mg IVPB DAILY if clinically not improving (2) Acute kidney injury Current Visit: Yes Status: Acute Priority: High Comment: Acute renal injury due to circulatory failure Hypotensive patient remain on vasopressors IVF hydration IV Antibiotics Monitor Input/Output, daily weights Monitor renal function (3) Altered mental status Current Visit: Yes Status: Acute Priority: High Comment: Toxic/metbolic encephalopathy Frequent NEURO CHECK (4) Metabolic acidemia Current Visit: Yes Status: Acute Priority: High (5) Dehydration Current Visit: Yes Status: Acute Priority: High Comment: IVF hydration (6) Hyponatremia Current Visit: Yes Status: Acute Priority: High Comment: 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 GI/DVT PPX Stress Ulcer prophylaxis with Protonix 40 mg Po QD DVT prophylaxis with SCD, SQ Heparin Code Status: Full code Total critical care time 48 minutes
[2018-03-25] MEDS ORDERED: Chlorhexidine Gluconate 1 APPL/PKT TP ONE (08:29)
--- NOTE | 2018-03-25 09:03 | RAD ---
Date of service: 03/24/2018 HISTORY: Sepsis Patient COMPARISON: No prior. FINDINGS: LUNGS: Prior right midline PICC now removed. Medial right apical fibrosis appreciated with right pulmonary volume loss again evident secondarily. No acute infiltrate bilaterally. A small nodular density seen in the mid right chest laterally may reflect vessel on seen on and as this area appears clear on prior chest CT 08/16/2017. COPD changes again evident. PLEURA: No significant pleural effusion identified, no pneumothorax apparent. CARDIOVASCULAR: No aortic atherosclerotic calcification present. Normal cardiac size. No pulmonary vascular congestion. OSSEOUS STRUCTURES: No significant abnormalities. VISUALIZED UPPER ABDOMEN: Normal. OTHER FINDINGS: None. IMPRESSION: Stable COPD changes including right apical volume loss/fibrosis. Small nodular density seen at the mid right lung zone laterally may reflect vessel on end however interval nodule is possible. Consider follow-up noncontrast chest CT for further characterization. PA review assigned.
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
--- NOTE | 2018-03-25 09:50 | CARD ---
APPROVED REPORT Date of service: 03/24/2018 EKG Measurement Heart [id number] <Conclusion> Sinus rhythm with premature atrial complexes Low voltage QRS Borderline ECG
--- NOTE | 2018-03-25 10:30 | CT ---
Date of service: 03/24/2018 PROCEDURE: CT HEAD WITHOUT CONTRAST. HISTORY: headache COMPARISON: Unenhanced head CT 08/16/2017. TECHNIQUE: Axial computed tomography images were obtained through the head/brain without intravenous contrast. Radiation dose: Total exam DLP = 1129.2 mGy-cm. This CT exam was performed using one or more of the following dose reduction techniques: Automated exposure control, adjustment of the mA and/or kV according to patient size, and/or use of iterative reconstruction technique. FINDINGS: HEMORRHAGE: No intracranial hemorrhage. BRAIN: Good corticomedullary differentiation is seen. Reiterated diffuse cerebral atrophy and chronic microangiopathy. No suspicious extra-axial fluid collection is identified and the midline brain anatomy appears grossly nonfocal as imaged. No mass effect identified. Bilateral cerebellar chronic lacune is reiterated with dilated perivascular space favored over chronic lacune inferior right basal ganglia. VENTRICLES: Unremarkable. No hydrocephalus. CALVARIUM: Unremarkable. PARANASAL SINUSES: Unremarkable as visualized. No significant inflammatory changes. MASTOID AIR CELLS: Unremarkable as visualized. No inflammatory changes. OTHER FINDINGS: None. IMPRESSION: No acute interval intracranial findings by standard CT criteria. Follow-up CT or MRI can be utilized as clinically warranted. Stable age related neuro degenerative findings as well as bilateral cerebellar chronic lacunes. Concordant preliminary report from [facility], 03/24/2018.
[2018-03-25] MEDS: Pantoprazole 40 mg EC Tab PO SCH (16:19)
[2018-03-25 17:33] LABS: BASO % 0.1 % (0.0-2.0); EOS % 0.2 % (0.0-4.0); HEMOGLOBIN 9.4 g/dL (12.0-18.0); LYMPH # 0.4 K/uL (1.0-4.3); MEAN CELL VOLUME 100.3 fl (80.0-94.0); MEAN CORPUSCULAR HEMOGLOBIN 33.9 pg (27.0-31.0); MEAN CORPUSCULAR HGB CONC 33.8 g/dL (33.0-37.0); MONO # 0.2 K/uL (0.0-0.8); NEUT # 3.7 K/uL (1.8-7.0); NEUT % 84.7 % (50.0-75.0); RBC 2.77 Mil/uL (4.40-5.90); RED CELL DISTRIBUTION WIDTH 16.5 % (11.5-14.5); WHITE BLOOD COUNT 4.4 K/uL (4.8-10.8)
[2018-03-25 17:41] LABS: ALB/GLOB RATIO 0.6 (1.0-2.1); ALBUMIN 2.3 g/dL (3.5-5.0); CALCIUM 6.8 mg/dL (8.4-10.2)
--- NOTE | 2018-03-25 18:16 | HP ---
CHIEF COMPLAINT: Altered mental status and abnormal electrolytes. HISTORY OF PRESENT ILLNESS: This is a 73-year-old male retirement resident who was found to have abnormal electrolytes and the patient was not eating well for two days. The patient was sent to the hospital and was admitted for further management. 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 The patient is currently not able to provide informative history or review of systems and is non-communicative. PAST MEDICAL HISTORY: Significant for atrial fibrillation, CHF, COPD, colocutaneous and colovesical cutaneous fistula, history of DVT, fractures, hypertension, pneumonia, stomach cancer, rheumatoid arthritis, urinary retention. PAST SURGICAL HISTORY: Significant for abdominal surgery relating to colocutaneous fistula, IVC filter, cholecystectomy, multiple hip surgeries and back surgeries. FAMILY HISTORY: Noncontributory. PERSONAL HISTORY: The patient is currently a retirement resident, nonsmoker, nondrinker. No substance abuse. MEDICATIONS: The patient is on multiple medications, which is as per reconciliation sheet, which was reviewed and ordered. ALLERGIES: THE PATIENT IS NOT ALLERGIC TO ANY MEDICATION. PHYSICAL EXAMINATION: GENERAL: Well built, chronically sick-looking, elderly cachectic male, in no acute distress. VITAL SIGNS: Temperature 96.8, pulse 74, respirations 12, blood pressure 91/50, saturations 97%. HEENT: Pupils reacting to light. No JVD. No thyromegaly. No lymphadenopathy. No nystagmus. Normocephalic, atraumatic skull. HEART: S1 and S2, normal and regular. No significant murmur, gallop, or rub is heard. LUNGS: Shows good bilateral air exchange. No rales or rhonchi. ABDOMEN: The patient has abdominal wound with multiple draining ____ and draining stool and also urine, which also leaks around the colostomy tube on the abdominal wall and draining down, but no sign of acute abdomen. No guarding, no rigidity, no rebound. Bowel sounds are plus and normal. There is no surrounding cellulitis. EXTREMITIES: No edema. No calf swelling. No tenderness. No acute ischemia. CENTRAL NERVOUS SYSTEM: Not being able to thoroughly evaluate as the patient is not communicative. DIAGNOSTIC DATA: Available diagnostic data reviewed. Telemetry motorizing does not reveal significant arrhythmia. LABORATORY DATA: WBC is 5.1, hemoglobin 10.3, hematocrit 30, platelets 130. Lactic acid is 2.1. Sodium 128, potassium 4.6, chloride 105, bicarb 12, BUN 108, creatinine 4, previous BUN was 118 and creatinine 4.4. Ammonia level is 185. Urinalysis is showing positive for nitrites and leukocyte esterase. CAT scan of head does not reveal any acute bleeding. Chest x-ray did not reveal any lobar consolidation. EKG shows normal sinus rhythm with occasional supraventricular beats, but no acute ST-T changes. ADMITTING IMPRESSION: Septic shock, septicemia possibly from resistant urinary tract infection, also intraabdominal source, colocutaneous fistula, vesical colocutaneous fistula, history of atrial fibrillation, electrolyte imbalance, severe dehydration, prerenal azotemia, history of cerebrovascular accident, congestive heart failure, chronic obstructive pulmonary disease, history of deep vein thromboses and back problem leading to surgery, history of hip surgery, stomach cancer, arthritis. PLAN: As ordered. Lucio Anton MD
[2018-03-25] MEDS ORDERED: Sodium Bicarbonate 8.4% 150 MEQ in Dextrose 5% In Water 1,000 ML IV SCH (23:15)
[2018-03-26] MEDS: Albuterol 0.083% Inhal Sol (2.5 mg/3 mL) UD INH SCH ×4 (01:00→19:15)
[2018-03-26 05:44] LABS: HEMOGLOBIN 9.7 g/dL (12.0-18.0); MEAN CELL VOLUME 99.9 fl (80.0-94.0); RBC 2.78 Mil/uL (4.40-5.90); RED CELL DISTRIBUTION WIDTH 16.5 % (11.5-14.5); WHITE BLOOD COUNT 4.1 K/uL (4.8-10.8)
[2018-03-26 05:46] LABS: ALB/GLOB RATIO 0.6 (1.0-2.1); ALBUMIN 2.3 g/dL (3.5-5.0); CALCIUM 6.8 mg/dL (8.4-10.2)
--- NOTE | 2018-03-26 09:27 | CP.PCM.CON ---
History of Present Illness - History of Present Illness History of Present Illness: [place] with multiple medical problems was transferred to hospital secondary to low hyponatremia and mental status changes. Pmhx of multiple comorbid conditions including CHF, COPD, DVT, fractures, Urinary retention with ESBL e coli with sepsis and mycobacterial infection. Past Patient History - Infectious Disease Hx of Infectious Diseases: None - Tetanus Immunizations Tetanus Immunization: Unknown - Past Medical History & Family History Past Medical History?: Yes - Past Social History Smoking Status: Former Smoker Chewing Tobacco Use: No Cigar Use: No Alcohol: Other Drugs: Denies Home Situation {Lives}: Intermediate - CARDIAC Hx Atrial Fibrillation: Yes Hx Congestive Heart Failure: Yes Hx Hypertension: Yes Hx Pacemaker: No - PULMONARY Hx Chronic Obstructive Pulmonary Disease (COPD): Yes Hx Pneumonia: Yes - NEUROLOGICAL Hx Neurological Disorder: Yes - HEENT Hx HEENT Problems: Yes Other/Comment: Glasses - RENAL Hx Chronic Kidney Disease: No - ENDOCRINE/METABOLIC Hx Endocrine Disorders: No - HEMATOLOGICAL/ONCOLOGICAL Hx Blood Disorders: No Hx Human Immunodeficiency Virus (HIV): No - INTEGUMENTARY Hx Dermatological Problems: Yes - MUSCULOSKELETAL/RHEUMATOLOGICAL Hx Arthritis: Yes Hx Fractures: Yes Hx Rheumatoid Arthritis: Yes - GASTROINTESTINAL Hx Gastrointestinal Disorders: Yes Hx Ulcer: Yes - GENITOURINARY/GYNECOLOGICAL Hx Genitourinary Disorders: Yes - PSYCHIATRIC Hx Psychophysiologic Disorder: No Hx Substance Use: No - SURGICAL HISTORY Hx Cholecystectomy: Yes - ANESTHESIA Hx Anesthesia: Yes Hx Anesthesia Reactions: No Hx Malignant Hyperthermia: No Meds Allergies/Adverse Reactions: Allergies Allergy/AdvReac Type Severity Reaction Status Date / Time No Known Allergies Allergy Verified 02/19/18 14:57 - Medications Medications: Current Medications Albuterol Sulfate (Albuterol 0.083% Inhal Mary (2.5 Mg/3 Ml) Ud) 2.5 mg INH RQ6 CHARMAINE Last Admin: 03/26/18 07:35 Dose: Not Given Heparin Sodium (Porcine) (Heparin) 5,000 units SC Q8 CHARMAINE; Protocol Last Admin: 03/26/18 00:18 Dose: 5,000 units Piperacillin Sod/Tazobactam (Sod 2.25 gm/ Sodium Chloride) 100 mls @ 100 mls/hr IVPB Q6 CHARMAINE; Protocol Last Admin: 03/26/18 03:32 Dose: 100 mls/hr Norepinephrine Bitartrate 4 mg (/ Dextrose) 254 mls @ 47.63 mls/hr IV .Q5H20M [facility]; Protocol Last Admin: 03/26/18 05:48 Dose: 12.5 mcg/min, 47.63 mls/hr Lactulose (Enulose) 20 gm PO Q4H [facility] Last Admin: 03/26/18 04:22 Dose: 20 gm Ondansetron HCl (Zofran Inj) 4 mg IVP Q4 PRN PRN Reason: Nausea/Vomiting Pantoprazole Sodium (Protonix Ec Tab) 40 mg PO DAILY [facility] Last Admin: 03/25/18 16:19 Dose: 40 mg Results - Vital Signs Recent Vital Signs: Last Vital Signs Temp 98 F 03/26/18 00:00 Pulse 120 H 03/26/18 06:30 Resp 20 03/26/18 06:30 BP 127/83 03/26/18 06:30 Pulse Ox 100 03/26/18 06:30 - Labs Result Diagrams: 03/26/18 04:30 03/26/18 04:30 Labs: Laboratory Results - last 24 hr 03/25/18 03/25/18 03/25/18 16:32 16:32 17:05 WBC 4.4 L RBC 2.77 L Hgb 9.4 L Hct 27.8 L MCV 100.3 H MCH 33.9 H MCHC 33.8 RDW 16.5 H Plt Count 127 L MPV 7.0 L Neut % (Auto) 84.7 H Lymph % (Auto) 10.0 L [place] % (Auto) 5.0 Eos % (Auto) 0.2 Baso % (Auto) 0.1 Neut # (Auto) 3.7 Lymph # (Auto) 0.4 L [place] # (Auto) 0.2 Eos # (Auto) 0.0 Baso # (Auto) 0.0 Sodium Potassium Chloride Carbon Dioxide Anion Gap BUN Creatinine Est GFR ( Amer) Est GFR (Non-Af Amer) POC Glucose (mg/dL) Random Glucose Serum Osmolality 317 H Calcium Phosphorus Magnesium Total Bilirubin AST ALT Alkaline Phosphatase Ammonia 102 H* D Total Protein Albumin Globulin Albumin/Globulin Ratio 03/25/18 03/25/18 03/26/18 17:05 21:34 03:57 WBC RBC Hgb Hct MCV MCH MCHC RDW Plt Count MPV Neut % (Auto) Lymph % (Auto) [place] % (Auto) Eos % (Auto) Baso % (Auto) Neut # (Auto) Lymph # (Auto) [place] # (Auto) Eos # (Auto) Baso # (Auto) Sodium 135 Potassium 3.5 L Chloride 104 Carbon Dioxide 16 L Anion Gap 19 BUN 104 H* Creatinine 3.7 H Est GFR ( Amer) 20 Est GFR (Non-Af Amer) 16 POC Glucose (mg/dL) 196 H 215 H Random Glucose 184 H Serum Osmolality Calcium 6.8 L Phosphorus 8.8 H Magnesium 1.8 Total Bilirubin 1.6 H AST 31 ALT 41 Alkaline Phosphatase 98 Ammonia Total Protein 6.4 Albumin 2.3 L D Globulin 4.1 H Albumin/Globulin Ratio 0.6 L 03/26/18 03/26/18 03/26/18 04:30 04:30 04:30 WBC 4.1 L RBC 2.78 L Hgb 9.7 L Hct 27.7 L MCV 99.9 H MCH 35.0 H MCHC 35.0 RDW 16.5 H Plt Count 127 L MPV Neut % (Auto) Lymph % (Auto) [place] % (Auto) Eos % (Auto) Baso % (Auto) Neut # (Auto) Lymph # (Auto) [place] # (Auto) Eos # (Auto) Baso # (Auto) Sodium 138 Potassium 3.3 L Chloride 104 Carbon Dioxide 19 L Anion Gap 18 BUN 99 H Creatinine 3.6 H Est GFR ( Amer) 20 Est GFR (Non-Af Amer) 17 POC Glucose (mg/dL) Random Glucose 214 H Serum Osmolality Calcium 6.8 L Phosphorus 7.1 H Magnesium 1.8 Total Bilirubin 1.6 H AST 31 ALT 36 Alkaline Phosphatase 100 Ammonia 104 H* Total Protein 6.3 Albumin 2.3 L Globulin 4.0 H Albumin/Globulin Ratio 0.6 L Assessment & Plan - Assessment and Plan (Free Text) Assessment: Sepsis most likely secondary to UTI. Awaiting urine cultures. Pending Urine culture and with history of ESBL in the past and decreased ESBL sensitivity to zosyn, will switch to Meropenem 500 mg iv q 12h Vancomycin 750 mg iv q 72 hrs
[2018-03-26] MEDS: Pantoprazole 40 mg EC Tab PO SCH (09:51)
--- NOTE | 2018-03-26 11:54 | CP.CCUPN ---
CCU Subjective - Physician Review Subjective (Free Text): 03/25/18 12:50 The patient was Seen/interviewed and examined by me at the bedside during ICU round, Medical records reviewed and Management issues were discussed and formulated with the house staff. Events reviewed Mr Wolf is 72 year old male with a past medical history of HTN, atrial fibrillation, CHF, COPD, Deep Vein Thrombosis, Fractures, Rheumatoid Arthritis, Back Problems and Malignancy (stomach CA) Who was sent from [facility] for altered mental statue, not eating for 2 days and with abnormal labs of Sodium 126; BUN of 118 and Creatinine of 4.4. In the Emergency department patient was lethargic, confused and barely opening eyes to verbal commands, BP 75/48mmHg. labs revealed SAMANTHA with hyperkalemia, hyponatremia Central line placed, Agressive IV volume resuscitaions and was started on Levophed This morning he is Awake, Alert and oriented to self. Continues to be intermittently agitated Continues to complain of intermittent Abdomen Pain and tenderness Received IV morphine 1 mg Comfortable, in no Distress Afebrile, Tmx 98F BP has been stable, remains on small dose Vasopressors Breathing unlabored, on room air O2 sat 94-100%. A_Fib on the monitor Last 24H I&O 5648/100 IV Zosyn was switched to Meropenem based on + ESBL culture This morning labs revealed Slightly better renal function BUN/Cr down to 99/3.6, Na level up to 138 No Leucocytosis, H/H stable No evidence of active bleed Platelets trending down 207 to 130 to 127, and has been stable, suspect sepsis related Pt was seen by Speech therapy, and started on Po diet Will repeat Abd CT scan to better evaluated the source of infection and eval the abd fistulas/ostomy Of note Patient presented to the emergency department in 06/2017 complaining of abdominal pain, was admitted with Acute abdomen, free air sec to perforated viscous 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 Critical Care Time Spent (in minutes): 45 CCU Objective - Vital Signs / Intake & Output Vital Signs (Last 4 hours): Vital Signs Temp Pulse Resp BP Pulse Ox 03/26/18 08:00 97.5 F L 92 H 24 125/81 100 Intake and Output (Last 8hrs): Intake & Output 03/25/18 03/26/18 03/26/18 22:59 06:59 14:59 Intake Total 2880 2464 635 Output Total 26 70 Balance 2854 2394 635 Weight 121 lb Intake: IV 2164 1454 235 Intake, Piggyback 636 730 Oral 30 130 400 Tube Feeding 50 50 Free Water Flush 100 Output: Drainage 20 Abdomen 20 Urine 25 50 Urethral (Russell) 25 50 Urine/Stool Mix 1 Other: # Bowel Movements 1 - Physical Exam Physical Exam Limitations: Positive for: Clinical Condition Head: Positive for: Atraumatic, Normocephalic Pupils: Positive for: PERRL. Negative for: Sluggish, Non-Reactive, Pinpoint Extroacular Muscles: Positive for: EOMI Conjunctiva: Positive for: Normal. Negative for: Injected, Icteric Ears: Positive for: Normal, NORMAL TM Mouth: Positive for: Moist Mucous Membranes Pharnyx: Positive for: Normal Nose (Internal): Positive for: Normal Inspection Neck: Positive for: Normal Range of Motion, Trachea Midline. Negative for: Meningeal Signs, MIDLINE TENDERNESS, Paraspinal Tenderness, JVD, Ly mphadenopathy, Bruit, Other Respiratory/Chest: Positive for: Clear to Auscultation, Good Air Exchange, Rales, Rhonchi. Negative for: Respiratory Distress, Accessory Muscle Use, Tachypneic Cardiovascular: Positive for: Regular Rate and Rhythm, Normal S1, S2. Negative for: Murmurs, Irregular Rhythm Abdomen: Positive for: Tenderness, Distention, Normal Bowel Sounds, Peritoneal Signs, Ostomy Tubes Lower Extremity: Positive for: Edema, NORMAL PULSES, Capillary Refill < 2 s. Negative for: CALF TENDERNESS Neurological: Positive for: Motor Func Grossly Intact Skin: Positive for: Warm. Negative for: Dry, Rashes - Medications Active Medications: Active Medications Generic Name Dose Route Start Last Admin Trade Name Freq PRN Reason Stop Dose Admin Albuterol Sulfate 2.5 mg 03/25/18 02:00 03/26/18 07:35 Albuterol 0.083% Inhal Mary (2.5 Mg/3 Ml) Ud INH Not Given RQ6 CHARMAINE Heparin Sodium (Porcine) 5,000 units 03/25/18 01:00 03/26/18 09:47 Heparin SC 5,000 units Q8 CHARMAINE Administration Protocol Norepinephrine Bitartrate 4 mg 254 mls @ 47.63 mls/hr 03/25/18 23:15 03/26/18 10:06 / Dextrose IV 10 mcg/min .Q5H20M CHARMAINE 38.1 mls/hr Titration Protocol 12.5 MCG/MIN Meropenem 500 mg/ Sodium 100 mls @ 100 mls/hr 03/26/18 21:00 Chloride IVPB Q12 CHARMAINE Protocol Lactulose 20 gm 03/25/18 07:45 03/26/18 08:30 Enulose PO 20 gm Q4H CHARMAINE Administration Ondansetron HCl 4 mg 03/25/18 13:49 Zofran Inj IVP Q4 PRN Nausea/Vomiting Pantoprazole Sodium 40 mg 03/25/18 16:00 03/26/18 09:51 Protonix Ec Tab PO 40 mg DAILY CHARMAINE Administration - Patient Studies Lab Studies: Microbiology Studies 03/24/18 19:33 Blood Culture - Preliminary Blood NO GROWTH AFTER 24 HOURS 03/24/18 18:50 Blood Culture - Preliminary Blood NO GROWTH AFTER 24 HOURS 03/24/18 18:25 Urine Culture - Final Urine,Clean Catch MULTIPLE SPECIES. SUGGEST REPEAT SPECIMEN. Lab Studies 03/26/18 03/26/18 03/26/18 Range/Units 04:30 04:30 04:30 WBC 4.1 L (4.8-10.8) K/uL RBC 2.78 L (4.40-5.90) Mil/uL Hgb 9.7 L (12.0-18.0) g/dL Hct 27.7 L (35.0-51.0) % MCV 99.9 H (80.0-94.0) fl MCH 35.0 H (27.0-31.0) pg MCHC 35.0 (33.0-37.0) g/dL RDW 16.5 H (11.5-14.5) % Plt Count 127 L (130-400) K/uL MPV (7.2-11.7) fl Neut % (Auto) (50.0-75.0) % Lymph % (Auto) (20.0-40.0) % [place] % (Auto) (0.0-10.0) % Eos % (Auto) (0.0-4.0) % Baso % (Auto) (0.0-2.0) % Neut # (Auto) (1.8-7.0) K/uL Lymph # (Auto) (1.0-4.3) K/uL [place] # (Auto) (0.0-0.8) K/uL Eos # (Auto) (0.0-0.7) K/uL Baso # (Auto) (0.0-0.2) K/uL Sodium 138 (132-148) mmol/l Potassium 3.3 L (3.6-5.0) MMOL/L Chloride 104 (98-107) mmol/L Carbon Dioxide 19 L (22-30) mmol/L Anion Gap 18 (10-20) BUN 99 H (9-20) mg/dl Creatinine 3.6 H (0.8-1.5) mg/dl Est GFR ( Amer) 20 Est GFR (Non-Af Amer) 17 POC Glucose (mg/dL) (65-110) mg/dL Random Glucose 214 H (75-110) mg/dL Serum Osmolality (272-300) mosm/kg Calcium 6.8 L (8.4-10.2) mg/dL Phosphorus 7.1 H (2.5-4.5) mg/dl Magnesium 1.8 (1.6-2.3) MG/DL Total Bilirubin 1.6 H (0.2-1.3) mg/dl AST 31 (17-59) U/L ALT 36 (21-72) U/L Alkaline Phosphatase 100 (38-126) U/L Ammonia 104 H* (16-60) umo/L Total Protein 6.3 (6.3-8.2) G/DL Albumin 2.3 L (3.5-5.0) g/dL Globulin 4.0 H (2.2-3.9) gm/dL Albumin/Globulin Ratio 0.6 L (1.0-2.1) 03/26/18 03/25/18 03/25/18 Range/Units 03:57 21:34 17:05 WBC (4.8-10.8) K/uL RBC (4.40-5.90) Mil/uL Hgb (12.0-18.0) g/dL Hct (35.0-51.0) % MCV (80.0-94.0) fl MCH (27.0-31.0) pg MCHC (33.0-37.0) g/dL RDW (11.5-14.5) % Plt Count (130-400) K/uL MPV (7.2-11.7) fl Neut % (Auto) (50.0-75.0) % Lymph % (Auto) (20.0-40.0) % [place] % (Auto) (0.0-10.0) % Eos % (Auto) (0.0-4.0) % Baso % (Auto) (0.0-2.0) % Neut # (Auto) (1.8-7.0) K/uL Lymph # (Auto) (1.0-4.3) K/uL [place] # (Auto) (0.0-0.8) K/uL Eos # (Auto) (0.0-0.7) K/uL Baso # (Auto) (0.0-0.2) K/uL Sodium 135 (132-148) mmol/l Potassium 3.5 L (3.6-5.0) MMOL/L Chloride 104 (98-107) mmol/L Carbon Dioxide 16 L (22-30) mmol/L Anion Gap 19 (10-20) BUN 104 H* (9-20) mg/dl Creatinine 3.7 H (0.8-1.5) mg/dl Est GFR ( Amer) 20 Est GFR (Non-Af Amer) 16 POC Glucose (mg/dL) 215 H 196 H (65-110) mg/dL Random Glucose 184 H (75-110) mg/dL Serum Osmolality (272-300) mosm/kg Calcium 6.8 L (8.4-10.2) mg/dL Phosphorus 8.8 H (2.5-4.5) mg/dl Magnesium 1.8 (1.6-2.3) MG/DL Total Bilirubin 1.6 H (0.2-1.3) mg/dl AST 31 (17-59) U/L ALT 41 (21-72) U/L Alkaline Phosphatase 98 (38-126) U/L Ammonia (16-60) umo/L Total Protein 6.4 (6.3-8.2) G/DL Albumin 2.3 L D (3.5-5.0) g/dL Globulin 4.1 H (2.2-3.9) gm/dL Albumin/Globulin Ratio 0.6 L (1.0-2.1) 03/25/18 03/25/18 03/25/18 Range/Units 17:05 16:32 16:32 WBC 4.4 L (4.8-10.8) K/uL RBC 2.77 L (4.40-5.90) Mil/uL Hgb 9.4 L (12.0-18.0) g/dL Hct 27.8 L (35.0-51.0) % MCV 100.3 H (80.0-94.0) fl MCH 33.9 H (27.0-31.0) pg MCHC 33.8 (33.0-37.0) g/dL RDW 16.5 H (11.5-14.5) % Plt Count 127 L (130-400) K/uL MPV 7.0 L (7.2-11.7) fl Neut % (Auto) 84.7 H (50.0-75.0) % Lymph % (Auto) 10.0 L (20.0-40.0) % [place] % (Auto) 5.0 (0.0-10.0) % Eos % (Auto) 0.2 (0.0-4.0) % Baso % (Auto) 0.1 (0.0-2.0) % Neut # (Auto) 3.7 (1.8-7.0) K/uL Lymph # (Auto) 0.4 L (1.0-4.3) K/uL [place] # (Auto) 0.2 (0.0-0.8) K/uL Eos # (Auto) 0.0 (0.0-0.7) K/uL Baso # (Auto) 0.0 (0.0-0.2) K/uL Sodium (132-148) mmol/l Potassium (3.6-5.0) MMOL/L Chloride (98-107) mmol/L Carbon Dioxide (22-30) mmol/L Anion Gap (10-20) BUN (9-20) mg/dl Creatinine (0.8-1.5) mg/dl Est GFR ( Amer) Est GFR (Non-Af Amer) POC Glucose (mg/dL) (65-110) mg/dL Random Glucose (75-110) mg/dL Serum Osmolality 317 H (272-300) mosm/kg Calcium (8.4-10.2) mg/dL Phosphorus (2.5-4.5) mg/dl Magnesium (1.6-2.3) MG/DL Total Bilirubin (0.2-1.3) mg/dl AST (17-59) U/L ALT (21-72) U/L Alkaline Phosphatase (38-126) U/L Ammonia 102 H* D (16-60) umo/L Total Protein (6.3-8.2) G/DL Albumin (3.5-5.0) g/dL Globulin (2.2-3.9) gm/dL Albumin/Globulin Ratio (1.0-2.1) Laboratory Results - last 24 hr 03/25/18 03/25/18 03/25/18 16:32 16:32 17:05 WBC 4.4 L RBC 2.77 L Hgb 9.4 L Hct 27.8 L MCV 100.3 H MCH 33.9 H MCHC 33.8 RDW 16.5 H Plt Count 127 L MPV 7.0 L Neut % (Auto) 84.7 H Lymph % (Auto) 10.0 L [place] % (Auto) 5.0 Eos % (Auto) 0.2 Baso % (Auto) 0.1 Neut # (Auto) 3.7 Lymph # (Auto) 0.4 L [place] # (Auto) 0.2 Eos # (Auto) 0.0 Baso # (Auto) 0.0 Sodium Potassium Chloride Carbon Dioxide Anion Gap BUN Creatinine Est GFR ( Amer) Est GFR (Non-Af Amer) POC Glucose (mg/dL) Random Glucose Serum Osmolality 317 H Calcium Phosphorus Magnesium Total Bilirubin AST ALT Alkaline Phosphatase Ammonia 102 H* D Total Protein Albumin Globulin Albumin/Globulin Ratio 03/25/18 03/25/18 03/26/18 17:05 21:34 03:57 WBC RBC Hgb Hct MCV MCH MCHC RDW Plt Count MPV Neut % (Auto) Lymph % (Auto) [place] % (Auto) Eos % (Auto) Baso % (Auto) Neut # (Auto) Lymph # (Auto) [place] # (Auto) Eos # (Auto) Baso # (Auto) Sodium 135 Potassium 3.5 L Chloride 104 Carbon Dioxide 16 L Anion Gap 19 BUN 104 H* Creatinine 3.7 H Est GFR ( Amer) 20 Est GFR (Non-Af Amer) 16 POC Glucose (mg/dL) 196 H 215 H Random Glucose 184 H Serum Osmolality Calcium 6.8 L Phosphorus 8.8 H Magnesium 1.8 Total Bilirubin 1.6 H AST 31 ALT 41 Alkaline Phosphatase 98 Ammonia Total Protein 6.4 Albumin 2.3 L D Globulin 4.1 H Albumin/Globulin Ratio 0.6 L 03/26/18 03/26/18 03/26/18 04:30 04:30 04:30 WBC 4.1 L RBC 2.78 L Hgb 9.7 L Hct 27.7 L MCV 99.9 H MCH 35.0 H MCHC 35.0 RDW 16.5 H Plt Count 127 L MPV Neut % (Auto) Lymph % (Auto) [place] % (Auto) Eos % (Auto) Baso % (Auto) Neut # (Auto) Lymph # (Auto) [place] # (Auto) Eos # (Auto) Baso # (Auto) Sodium 138 Potassium 3.3 L Chloride 104 Carbon Dioxide 19 L Anion Gap 18 BUN 99 H Creatinine 3.6 H Est GFR ( Amer) 20 Est GFR (Non-Af Amer) 17 POC Glucose (mg/dL) Random Glucose 214 H Serum Osmolality Calcium 6.8 L Phosphorus 7.1 H Magnesium 1.8 Total Bilirubin 1.6 H AST 31 ALT 36 Alkaline Phosphatase 100 Ammonia 104 H* Total Protein 6.3 Albumin 2.3 L Globulin 4.0 H Albumin/Globulin Ratio 0.6 L Fingerstick Blood Sugar Results: 109 Critical Care Progress Note - Nutrition Nutrition: Nutrition Category Date Time Status Renal Diet [DIET] Diets 03/25/18 Dinner Active Assessment/Plan (1) Septic shock Current Visit: Yes Status: Acute Priority: High Comment: Wean off Levophed, Maintain MAP 65-75 Benites culture Start IV Vancomycin and IV Zosyn was switched to Meropenem based on + ESBL culture ID evaluation appretiated Patient has history of Wound C/S positive for mathew, Will consider adding Micafungin Sodium 100 mg IVPB DAILY if clinically not improving (2) Acute kidney injury Current Visit: Yes Status: Acute Priority: High Comment: Acute renal injury due to circulatory failure, Slowly resolving Hypotensive patient remain on vasopressors IVF hydration IV Antibiotics Monitor Input/Output, daily weights Monitor renal function (3) Altered mental status Current Visit: Yes Status: Acute Priority: High Comment: Patient now back to baseline Toxic/metbolic encephalopathy Frequent NEURO CHECK (4) Metabolic acidemia Current Visit: Yes Status: Acute Priority: High Comment: From acute kidney injury and septic shock (5) Dehydration Current Visit: Yes Status: Acute Priority: High Comment: IVF hydration (6) Hyponatremia Current Visit: Yes Status: Acute Priority: High Comment: Sodium level up to 138 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 GI/DVT PPX Stress Ulcer prophylaxis with Protonix 40 mg Po QD DVT prophylaxis with SCD, SQ Heparin Code Status: Full code Total critical care time 45 minutes
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
--- NOTE | 2018-03-26 12:40 | CP.PCM.PN ---
<Sudeep Siddiqui - Last Filed: 03/26/18 13:19> Subjective - Date & Time of Evaluation Date of Evaluation: 03/26/18 Time of Evaluation: 08:05 - Subjective Subjective: Patient seen and examined this morning in ICU, more awake, alert and oriented to person, still abdominal pain, afebrile, stable. Objective - Vital Signs/Intake and Output Vital Signs (last 24 hours): Temp Pulse Resp BP Pulse Ox 97.5 F L 88 15 126/79 100 03/26/18 08:00 03/26/18 12:00 03/26/18 12:00 03/26/18 12:00 03/26/18 12:00 Intake and Output: 03/26/18 03/26/18 06:59 18:59 Intake Total 3294 1594 Output Total 70 20 Balance 3224 1574 - Medications Medications: Current Medications Albuterol Sulfate (Albuterol 0.083% Inhal Mary (2.5 Mg/3 Ml) Ud) 2.5 mg INH RQ6 CHARMAINE Last Admin: 03/26/18 07:35 Dose: Not Given Heparin Sodium (Porcine) (Heparin) 5,000 units SC Q8 CHARMAINE; Protocol Last Admin: 03/26/18 09:47 Dose: 5,000 units Norepinephrine Bitartrate 4 mg (/ Dextrose) 254 mls @ 47.63 mls/hr IV .Q5H20M CHARMAINE; Protocol Last Titration: 03/26/18 12:12 Dose: 7.5 mcg/min, 28.58 mls/hr Meropenem 500 mg/ Sodium (Chloride) 100 mls @ 100 mls/hr IVPB Q12 CHARMAINE; Protocol Lactulose (Enulose) 20 gm PO Q4H CHARMAINE Last Admin: 03/26/18 08:30 Dose: 20 gm Ondansetron HCl (Zofran Inj) 4 mg IVP Q4 PRN PRN Reason: Nausea/Vomiting Pantoprazole Sodium (Protonix Ec Tab) 40 mg PO DAILY CHARMAINE Last Admin: 03/26/18 09:51 Dose: 40 mg - Labs Labs: 03/26/18 04:30 03/26/18 04:30 PT 13.8 Seconds (9.8-13.1) H 03/24/18 18:50 INR 1.2 03/24/18 18:50 APTT 26.4 Seconds (25.6-37.1) 03/24/18 18:50 - Constitutional Appears: No Acute Distress - Head Exam Head Exam: NORMAL INSPECTION - Eye Exam Eye Exam: EOMI - Respiratory Exam Respiratory Exam: Clear to Ausculation Bilateral, NORMAL BREATHING PATTERN - Cardiovascular Exam Cardiovascular Exam: Irregular Rhythm. absent: Tachycardia - GI/Abdominal Exam GI & Abdominal Exam: Tenderness. absent: Distended Additional comments: Multiple open abdominal wounds with mixed stools and urine. - Extremities Exam Extremities Exam: Pedal Edema - Neurological Exam Neurological Exam: Alert, Awake - Skin Skin Exam: Dry, Warm Additional comments: Multiple bruises noted on arms b/l Assessment and Plan - Assessment and Plan (Free Text) Assessment: 73 years old male admitted with abnormal labs, lethargic, confused and hypotensive. 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 He also has hx of A Fib, urinary retention and E Coli UTI with ESBL. Plan: - afebrile, WBC wnl - BP in the low side - local wound care - ID on board, input appreciated - Nephro consulted, recommendations appreciated. - f/u labs and cultures in am - continue home meds - For abd CT, f/u - rest of plan as ordered Case discussed with Dr Anton <Lucio Anton - Last Filed: 04/03/18 18:53> Objective - Vital Signs/Intake and Output Vital Signs (last 24 hours): Temp Pulse Resp BP Pulse Ox 98.2 F 62 14 99/64 L 99 04/03/18 16:00 04/03/18 16:00 04/03/18 16:00 04/03/18 16:00 04/03/18 16:00 Intake and Output: 04/03/18 04/03/18 11:59 23:59 Intake Total 1440 2380 Output Total 1750 550 Balance -310 1830 - Medications Medications: Current Medications Acetaminophen (Tylenol 325mg Tab) 650 mg PO Q6 PRN PRN Reason: Other Last Admin: 04/02/18 15:38 Dose: 650 mg Heparin Sodium (Porcine) (Heparin) 5,000 units SC Q8 CHARMAINE; Protocol Last Admin: 03/31/18 17:07 Dose: 5,000 units Lactated Ringer's (Lactated Ringer's) 1,000 mls @ 150 mls/hr IV .Q6H40M [facility] Last Admin: 04/03/18 15:18 Dose: 150 mls/hr Magnesium Sulfate/Dextrose (Magnesium Sulfate 1 Gm/100 Ml D5w) 1 gm in 100 mls @ 100 mls/hr IVPB ONCE [facility] Last Admin: 04/02/18 11:19 Dose: 100 mls/hr Lactulose (Enulose) 20 gm PO Q12 [facility] Last Admin: 04/03/18 08:43 Dose: 20 gm Morphine Sulfate (Morphine) 2 mg IVP Q4 PRN PRN Reason: Pain, moderate (4-7) Last Admin: 04/03/18 17:53 Dose: 2 mg Ondansetron HCl (Zofran Inj) 4 mg IVP Q4 PRN PRN Reason: Nausea/Vomiting Last Admin: 03/27/18 20:04 Dose: 4 mg Pantoprazole Sodium (Protonix Ec Tab) 40 mg PO DAILY [facility] Last Admin: 04/03/18 08:44 Dose: 40 mg - Labs Labs: 04/03/18 06:15 04/03/18 06:15 PT 13.8 Seconds (9.8-13.1) H 03/24/18 18:50 INR 1.2 03/24/18 18:50 APTT 26.4 Seconds (25.6-37.1) 03/24/18 18:50 Assessment and Plan - Assessment and Plan (Free Text) Assessment: Patient was personally seen and examined by me in rounds with residents. Available labs and diagnostic data reviewed. Case, Patient's condition and management plan discussed with residents in rounds. Agree with resident's progress note. Plan: As ordered.
[2018-03-26] MEDS: Sodium Bicarbonate 8.4% 150 MEQ in Dextrose 5%/0.45% NS 1,000 ML IV SCH (17:13)
--- NOTE | 2018-03-26 18:31 | CT ---
Date of service: 03/26/2018 PROCEDURE: CT Abdomen and Pelvis without intravenous contrast HISTORY: Septic shock, peritonitis COMPARISON: 03/11/2018. CT abdomen and pelvis. TECHNIQUE: Unenhanced. Neither IV nor oral contrast administered Radiation dose: Total exam DLP = 467.04 mGy-cm. This CT exam was performed using one or more of the following dose reduction techniques: Automated exposure control, adjustment of the mA and/or kV according to patient size, and/or use of iterative reconstruction technique. FINDINGS: LOWER THORAX: Emphysematous changes again identified and are stable. Left pleural effusion is stable. Scarring at the right base unchanged. LIVER: Unremarkable. No gross lesion or ductal dilatation. GALLBLADDER AND BILE DUCTS: Prior cholecystectomy. PANCREAS: CT manifestations of chronic pancreatitis. No superimposed acute abnormalities. Stable findings SPLEEN: Unremarkable. ADRENALS: Unremarkable. No mass. KIDNEYS AND URETERS: Unremarkable. No hydronephrosis. No solid mass. VASCULATURE: Atherosclerotic calcification and mural plaque present. Findings are seen throughout the aorta No aortic aneurysm. Stable orientation, position of IVC filter. BOWEL: Ostomy I would again identified midline upper abdomen. Stable appearance of anastomotic suture line, adjacent bowel. No mechanical obstructing lesion. APPENDIX: Unremarkable. Normal appendix. PERITONEUM: Unremarkable. No free fluid. No free air. LYMPH NODES: Unremarkable. No enlarged lymph nodes. BLADDER: Markedly distended urinary bladder with air-fluid level. This despite the presence of a Russell catheter which appears to be in satisfactory position. REPRODUCTIVE: Unremarkable. BONES: No acute fracture. No significant interval change compared to the prior examination(s). OTHER FINDINGS: None. IMPRESSION: Markedly distended urinary bladder with air-fluid level despite the presence of an indwelling Russell catheter which appears to be in satisfactory position. Stable postoperative findings without evidence of bowel obstruction. No additional significant/acute findings detected.
[2018-03-26] MEDS: Meropenem 500 MG in Sodium Chloride 0.9% 100 ML IVPB SCH (20:01)
[2018-03-27] MEDS ORDERED: Digoxin 500 mcg/2ml (0.5 mg/2ml) Inj IVP STA (00:43)
[2018-03-27] MEDS: Albuterol 0.083% Inhal Sol (2.5 mg/3 mL) UD INH SCH ×4 (01:00→19:19)
[2018-03-27 01:01] VITALS: PULSE 157
[2018-03-27] MEDS: Sodium Bicarbonate 8.4% 150 MEQ in Dextrose 5%/0.45% NS 1,000 ML IV SCH (04:33)
[2018-03-27 05:17] LABS: HEMOGLOBIN 9.4 g/dL (12.0-18.0); MEAN CELL VOLUME 99.8 fl (80.0-94.0); MEAN CORPUSCULAR HEMOGLOBIN 34.3 pg (27.0-31.0); MEAN CORPUSCULAR HGB CONC 34.3 g/dL (33.0-37.0); RBC 2.74 Mil/uL (4.40-5.90); RED CELL DISTRIBUTION WIDTH 16.4 % (11.5-14.5); WHITE BLOOD COUNT 4.1 K/uL (4.8-10.8)
[2018-03-27 05:42] LABS: ALB/GLOB RATIO 0.6 (1.0-2.1); ALBUMIN 2.1 g/dL (3.5-5.0); CALCIUM 7.1 mg/dL (8.4-10.2)
--- NOTE | 2018-03-27 07:47 | CP.PCM.PN ---
<Sudeep Siddiqui - Last Filed: 03/27/18 11:25> Subjective - Date & Time of Evaluation Date of Evaluation: 03/27/18 Time of Evaluation: 07:47 - Subjective Subjective: Patient seen and examined in ICU with Dr Anton patient is sleepy but arousable, reports diffuse abdominal pain, no overnight events, afebrile, stable. Objective - Vital Signs/Intake and Output Vital Signs (last 24 hours): Temp Pulse Resp BP Pulse Ox 98 F 80 11 L 110/65 100 03/27/18 04:00 03/27/18 07:00 03/27/18 07:00 03/27/18 07:00 03/27/18 07:00 Intake and Output: 03/27/18 03/27/18 06:59 18:59 Intake Total 1963 Output Total 1200 Balance 763 - Medications Medications: Current Medications Albuterol Sulfate (Albuterol 0.083% Inhal Mary (2.5 Mg/3 Ml) Ud) 2.5 mg INH RQ6 [facility] Last Admin: 03/27/18 07:46 Dose: Not Given Heparin Sodium (Porcine) (Heparin) 5,000 units SC Q8 [facility]; Protocol Last Admin: 03/27/18 00:12 Dose: 5,000 units Norepinephrine Bitartrate 4 mg (/ Dextrose) 254 mls @ 47.63 mls/hr IV .Q5H20M [facility]; Protocol Last Admin: 03/27/18 03:25 Dose: 12.5 mcg/min, 47.63 mls/hr Meropenem 500 mg/ Sodium (Chloride) 100 mls @ 100 mls/hr IVPB Q12 [facility]; Protocol Last Admin: 03/26/18 20:01 Dose: 100 mls/hr Sodium Bicarbonate 150 meq/ (Dextrose/Sodium Chloride) 1,150 mls @ 100 mls/hr IV .[id number] [facility] Stop: 03/27/18 15:58 Last Admin: 03/27/18 04:33 Dose: 100 mls/hr Lactulose (Enulose) 20 gm PO Q4H [facility] Last Admin: 03/27/18 04:32 Dose: 20 gm Ondansetron HCl (Zofran Inj) 4 mg IVP Q4 PRN PRN Reason: Nausea/Vomiting Pantoprazole Sodium (Protonix Ec Tab) 40 mg PO DAILY [facility] Last Admin: 03/26/18 09:51 Dose: 40 mg - Labs Labs: 03/27/18 04:20 03/27/18 04:20 PT 13.8 Seconds (9.8-13.1) H 03/24/18 18:50 INR 1.2 03/24/18 18:50 APTT 26.4 Seconds (25.6-37.1) 03/24/18 18:50 - Constitutional Appears: No Acute Distress, Cachectic, Chronically Ill - Respiratory Exam Respiratory Exam: Clear to Ausculation Bilateral, NORMAL BREATHING PATTERN - Cardiovascular Exam Cardiovascular Exam: Irregular Rhythm. absent: Tachycardia - GI/Abdominal Exam GI & Abdominal Exam: Tenderness. absent: Distended, Guarding Additional comments: Multiple open abdominal wounds, bags recently changed, noted to be clean. - Extremities Exam Extremities Exam: absent: Calf Tenderness, Pedal Edema - Neurological Exam Neurological Exam: Alert. absent: Oriented x3 Assessment and Plan - Assessment and Plan (Free Text) Assessment: 73 years old male admitted with abnormal labs, lethargic, confused and hypotensive. 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 He also has hx of A Fib, urinary retention and E Coli UTI with ESBL. Plan: - afebrile, WBC wnl - BP in the low side - local wound care - ID on board, input appreciated - Nephro consulted, recommendations appreciated. - Neurology consulted - urine cx pos for 2 Gram neg kirill - on IV abx - continue home meds - abd CT: distended urinary bladder with fluid air level despite Russell, no evidence of bowel obstruction - rest of plan as ordered <Lucio Anton K - Last Filed: 04/03/18 18:50> Objective - Vital Signs/Intake and Output Vital Signs (last 24 hours): Temp Pulse Resp BP Pulse Ox 98.2 F 62 14 99/64 L 99 04/03/18 16:00 04/03/18 16:00 04/03/18 16:00 04/03/18 16:00 04/03/18 16:00 Intake and Output: 04/03/18 04/03/18 11:59 23:59 Intake Total 1440 2380 Output Total 1750 550 Balance -310 1830 - Medications Medications: Current Medications Acetaminophen (Tylenol 325mg Tab) 650 mg PO Q6 PRN PRN Reason: Other Last Admin: 04/02/18 15:38 Dose: 650 mg Heparin Sodium (Porcine) (Heparin) 5,000 units SC Q8 [facility]; Protocol Last Admin: 03/31/18 17:07 Dose: 5,000 units Lactated Ringer's (Lactated Ringer's) 1,000 mls @ 150 mls/hr IV .Q6H40M [facility] Last Admin: 04/03/18 15:18 Dose: 150 mls/hr Magnesium Sulfate/Dextrose (Magnesium Sulfate 1 Gm/100 Ml D5w) 1 gm in 100 mls @ 100 mls/hr IVPB ONCE [facility] Last Admin: 04/02/18 11:19 Dose: 100 mls/hr Lactulose (Enulose) 20 gm PO Q12 [facility] Last Admin: 04/03/18 08:43 Dose: 20 gm Morphine Sulfate (Morphine) 2 mg IVP Q4 PRN PRN Reason: Pain, moderate (4-7) Last Admin: 04/03/18 17:53 Dose: 2 mg Ondansetron HCl (Zofran Inj) 4 mg IVP Q4 PRN PRN Reason: Nausea/Vomiting Last Admin: 03/27/18 20:04 Dose: 4 mg Pantoprazole Sodium (Protonix Ec Tab) 40 mg PO DAILY [facility] Last Admin: 04/03/18 08:44 Dose: 40 mg - Labs Labs: 04/03/18 06:15 04/03/18 06:15 PT 13.8 Seconds (9.8-13.1) H 03/24/18 18:50 INR 1.2 03/24/18 18:50 APTT 26.4 Seconds (25.6-37.1) 03/24/18 18:50 Assessment and Plan - Assessment and Plan (Free Text) Assessment: Patient was personally seen and examined by me in rounds with residents. Available labs and diagnostic data reviewed. Case, Patient's condition and management plan discussed with residents in rounds. Agree with resident's progress note. Plan: As ordered.
[2018-03-27] MEDS: Pantoprazole 40 mg EC Tab PO SCH (08:22)
[2018-03-27] MEDS: Meropenem 500 MG in Sodium Chloride 0.9% 100 ML IVPB SCH ×2 (08:22→21:01)
[2018-03-27] MEDS ORDERED: KCL 40MEQ/NS 1L 1,000 ML IV SCH (09:15)
--- NOTE | 2018-03-27 10:29 | CARD ---
APPROVED REPORT Date of service: 03/26/2018 EKG Measurement Heart [id number] <Conclusion> Atrial fibrillation with rapid ventricular response Low voltage QRS Septal infarct, age undetermined Inferior infarct, age undetermined Abnormal ECG
--- NOTE | 2018-03-27 11:49 | CP.CCUPN ---
CCU Subjective - Physician Review Subjective (Free Text): awake and alert, in his usual mood, no distress noted, but states he feels very cold, no fevers or obvious shaking chills. PO intake fair to good, still feels thirsty. Denies any N/V, nor abdominal pain, but just rec'd a dose of Morphine 2 mg IVP. On 1:1 supervision for patient safety. Other vitals and I/O's reviewed. No fever spikes last 24H. SBPs 90s on Levophed at 10 mcg dose., HR 89 sin us; SPO2 100% on RA ROS: No other pertinent negs or positives on 10+ system review. PMSFH: All other Nursing and physician documentation reviewed to date; no new pertinent info noted relevant to current medical problems. EXAM- HEENT: no icterus, no gaze preference, Pupils 3 mm and reactive NECK: No JVD visible, supple, carotids equal upstroke bilat CHEST: decreased BS at the bases, no wheezes audible HEART: regular, distant, tachy S1S2, no rubs ABD: softly and nontender, no tympany, no guarding, no organomegaly, BS hypoactive, enterocutaneous fistulas intact with stool output EXT: SCDs on bilat, no LE edema, no calf tenderness or palpable cords, distal pulses intact and symmetrical. NEURO: moves all extremities spontaneously. SKIN: no rashes, warm and dry LABS: WBC= 4.1 HGB= 9.4 PLTs= 121 Na= 139 K= 2.6 NQ=213 HCO3= 28 BUN/Cr= 86/3.0 BS= 152 CT AP results reviewed: IMPRESSION / MAJOR PROBLEMS NOW: 1. Severe Sepsis with Septic Shock 2' source with M. morganii sensitive to Merrem. 2. Dehydration, r/o SAMANTHA on CKD 3. s/p Metabolic Encephalopathy on admission 4. Hypokalemia induced by alkalinized fluids 5. H/o Jejunal perforation: s/p repair with Jejunostomy / Urostomy approx 8 months ago. PLAN: 1. Stop alkalinized fluids. 2. K Repletion 3. Increase IVF hydration, fluid challenge to wean vasopressors, will add steroids if refractory shock state. 4. Ongoing Merrem coverage. 5. Decrease Lactulose dosing. 03/27/18 13:29
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
[2018-03-28] MEDS: Albuterol 0.083% Inhal Sol (2.5 mg/3 mL) UD INH SCH ×4 (01:00→19:04)
[2018-03-28 06:12] LABS: HEMOGLOBIN 9.1 g/dL (12.0-18.0); MEAN CELL VOLUME 100.7 fl (80.0-94.0); MEAN CORPUSCULAR HEMOGLOBIN 34.7 pg (27.0-31.0); MEAN CORPUSCULAR HGB CONC 34.5 g/dL (33.0-37.0); RBC 2.61 Mil/uL (4.40-5.90); RED CELL DISTRIBUTION WIDTH 16.6 % (11.5-14.5); WHITE BLOOD COUNT 4.1 K/uL (4.8-10.8)
[2018-03-28 06:33] LABS: ALB/GLOB RATIO 0.5 (1.0-2.1); ALBUMIN 1.9 g/dL (3.5-5.0); CALCIUM 7.1 mg/dL (8.4-10.2)
--- NOTE | 2018-03-28 07:37 | CP.PCM.PN ---
<Sudeep Siddiqui - Last Filed: 03/28/18 09:13> Subjective - Date & Time of Evaluation Date of Evaluation: 03/28/18 Time of Evaluation: 07:37 - Subjective Subjective: Patient seen and examined in ICU with Dr Anton, patient is more alert today, still abdominal pain, no overnight events, afebrile, stable. Objective - Vital Signs/Intake and Output Vital Signs (last 24 hours): Temp Pulse Resp BP Pulse Ox 97.9 F 78 17 119/62 100 03/28/18 04:00 03/28/18 07:00 03/28/18 07:00 03/28/18 07:00 03/28/18 07:00 Intake and Output: 03/28/18 03/28/18 06:59 18:59 Intake Total 1693 Output Total 550 Balance 1143 - Medications Medications: Current Medications Albuterol Sulfate (Albuterol 0.083% Inhal Mary (2.5 Mg/3 Ml) Ud) 2.5 mg INH RQ6 [facility] Last Admin: 03/28/18 01:00 Dose: Not Given Heparin Sodium (Porcine) (Heparin) 5,000 units SC Q8 [facility]; Protocol Last Admin: 03/28/18 02:15 Dose: 5,000 units Meropenem 500 mg/ Sodium (Chloride) 100 mls @ 100 mls/hr IVPB Q12 [facility]; Protocol Last Admin: 03/27/18 21:01 Dose: 100 mls/hr Oral Electrolytes (Kcl 40meq/ 0.9% 1l) 1,000 mls @ 100 mls/hr IV .Q10H [facility] Stop: 03/28/18 09:10 Last Admin: 03/27/18 11:55 Dose: 100 mls/hr Norepinephrine Bitartrate 4 mg (/ Dextrose) 254 mls @ 28.58 mls/hr IV .Q8H54M [facility]; Protocol Last Admin: 03/27/18 22:10 Dose: 10 mcg/min, 38.1 mls/hr Lactulose (Enulose) 20 gm PO Q12 [facility] Last Admin: 03/27/18 21:02 Dose: 20 gm Morphine Sulfate (Morphine) 4 mg IVP Q4 PRN PRN Reason: Pain, moderate (4-7) Last Admin: 03/28/18 02:17 Dose: 4 mg Ondansetron HCl (Zofran Inj) 4 mg IVP Q4 PRN PRN Reason: Nausea/Vomiting Last Admin: 03/27/18 20:04 Dose: 4 mg Pantoprazole Sodium (Protonix Ec Tab) 40 mg PO DAILY [facility] Last Admin: 03/27/18 08:22 Dose: 40 mg - Labs Labs: 03/28/18 04:45 03/28/18 04:45 PT 13.8 Seconds (9.8-13.1) H 03/24/18 18:50 INR 1.2 03/24/18 18:50 APTT 26.4 Seconds (25.6-37.1) 03/24/18 18:50 - Constitutional Appears: Cachectic, Chronically Ill - Head Exam Head Exam: NORMAL INSPECTION - Respiratory Exam Respiratory Exam: Clear to Ausculation Bilateral - Cardiovascular Exam Cardiovascular Exam: Irregular Rhythm. absent: Tachycardia - GI/Abdominal Exam GI & Abdominal Exam: Soft, Tenderness. absent: Distended Additional comments: Multiple open abdominal wounds, abdominal bags content seems to be mixed stool and urine - Extremities Exam Extremities Exam: absent: Calf Tenderness, Pedal Edema - Neurological Exam Neurological Exam: Alert, Awake - Skin Skin Exam: Dry, Warm Assessment and Plan - Assessment and Plan (Free Text) Assessment: 73 years old male admitted with abnormal labs, lethargic, confused and hypotensive. 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 He also has hx of A Fib, urinary retention and E Coli UTI with ESBL. 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 Pressure ulcer stage III on the R heel POA Head CT showed: no acute intracranial changes, stable age related degenerative findings with chronic cerebellar lacunes. Plan: - afebrile, WBC wnl - BP better today, still on pressors - local wound care - ID on board, input appreciated - Nephro consulted, recommendations appreciated. - Neurology consulted - Urology consulted - Surgery consulted - urine cx pos for jose alejandro ann - on IV abx - continue home meds - abd CT: distended urinary bladder with fluid air level despite Russell, no evidence of bowel obstruction - rest of plan as ordered <Anton,Lucio K - Last Filed: 04/03/18 18:49> Objective - Vital Signs/Intake and Output Vital Signs (last 24 hours): Temp Pulse Resp BP Pulse Ox 98.2 F 62 14 99/64 L 99 04/03/18 16:00 04/03/18 16:00 04/03/18 16:00 04/03/18 16:00 04/03/18 16:00 Intake and Output: 04/03/18 04/03/18 11:59 23:59 Intake Total 1440 2380 Output Total 1750 550 Balance -310 1830 - Medications Medications: Current Medications Acetaminophen (Tylenol 325mg Tab) 650 mg PO Q6 PRN PRN Reason: Other Last Admin: 04/02/18 15:38 Dose: 650 mg Heparin Sodium (Porcine) (Heparin) 5,000 units SC Q8 [facility]; Protocol Last Admin: 03/31/18 17:07 Dose: 5,000 units Lactated Ringer's (Lactated Ringer's) 1,000 mls @ 150 mls/hr IV .Q6H40M [facility] Last Admin: 04/03/18 15:18 Dose: 150 mls/hr Magnesium Sulfate/Dextrose (Magnesium Sulfate 1 Gm/100 Ml D5w) 1 gm in 100 mls @ 100 mls/hr IVPB ONCE [facility] Last Admin: 04/02/18 11:19 Dose: 100 mls/hr Lactulose (Enulose) 20 gm PO Q12 [facility] Last Admin: 04/03/18 08:43 Dose: 20 gm Morphine Sulfate (Morphine) 2 mg IVP Q4 PRN PRN Reason: Pain, moderate (4-7) Last Admin: 04/03/18 17:53 Dose: 2 mg Ondansetron HCl (Zofran Inj) 4 mg IVP Q4 PRN PRN Reason: Nausea/Vomiting Last Admin: 03/27/18 20:04 Dose: 4 mg Pantoprazole Sodium (Protonix Ec Tab) 40 mg PO DAILY [facility] Last Admin: 04/03/18 08:44 Dose: 40 mg - Labs Labs: 04/03/18 06:15 04/03/18 06:15 PT 13.8 Seconds (9.8-13.1) H 03/24/18 18:50 INR 1.2 03/24/18 18:50 APTT 26.4 Seconds (25.6-37.1) 03/24/18 18:50 Assessment and Plan - Assessment and Plan (Free Text) Assessment: Patient was personally seen and examined by me in rounds with residents. Available labs and diagnostic data reviewed. Case, Patient's condition and management plan discussed with residents in rounds. Agree with resident's progress note. Plan: As ordered.
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
[2018-03-28] MEDS: Meropenem 500 MG in Sodium Chloride 0.9% 100 ML IVPB SCH ×2 (08:45→20:00)
[2018-03-28] MEDS ORDERED: Lactated Ringer's 500 ML IV SCH (09:00)
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
[2018-03-28] MEDS: Pantoprazole 40 mg EC Tab PO SCH (09:27)
[2018-03-28] MEDS ORDERED: Albumin Human 5% (12.5 gm/250 ml) IV ONE (09:30)
--- NOTE | 2018-03-28 10:32 | CP.CCUPN ---
CCU Subjective - Physician Review Subjective (Free Text): Awake and alert, in his usual mood, no distress noted, no fevers or obvious shaking chills. PO intake fair to good. Denies any N/V, nor abdominal pain. Off 1:1 supervision. Other vitals and I/O's reviewed. No fever spikes last 24H. SBPs 90s on Levop hed at 7.5 mcg dose., HR 89 sin us; SPO2 100% on RA. ROS: No other pertinent negs or positives on 10+ system review. PMSFH: All other Nursing and physician documentation reviewed to date; no new pertinent info noted relevant to current medical problems. EXAM- HEENT: no icterus, no gaze preference, Pupils 3 mm and reactive NECK: No JVD visible, supple, carotids equal upstroke bilat CHEST: decreased BS at the bases, no wheezes audible HEART: regular, distant, tachy S1S2, no rubs ABD: softly and nontender, no tympany, no guarding, no organomegaly, BS hypoactive, enterocutaneous fistulas intact with stool output EXT: SCDs on bilat, no LE edema, no calf tenderness or palpable cords, distal pulses intact and symmetrical. NEURO: moves all extremities spontaneously. SKIN: no rashes, warm and dry LABS: WBC= 4.1 HGB= 9.1 PLTs= 115K Na= 139 K= 4.1 VQ=528 HCO3= 28 BUN/Cr= 69/2.7 BS= 139 IMPRESSION / MAJOR PROBLEMS NOW: 1. Severe Sepsis with Septic Shock 2' source with M. morganii sensitive to Merrem. 2. Dehydration, r/o SAMANTHA on CKD 3. s/p Metabolic Encephalopathy on admission 4. Hypokalemia induced by alkalinized fluids 5. H/o Jejunal perforation: s/p repair with Jejunostomy / Urostomy approx 8 months ago. PLAN: 1. Additional fluids, and colloid. See orders. 2. Stop supplemental K, K normalized and off alkalinized fluids. BUN Cr slowly improving with hydration. 3. Wean Vasopressors 5. Lactulose dose decreased to maintenance. 6. Surgical eval for enterocutaneous fistula mgmt. Consider TPN vs other conservative mgmt.
[2018-03-28] MEDS: Lactated Ringer's 1,000 ML IV SCH ×2 (12:37→21:55)
[2018-03-29] MEDS: Albuterol 0.083% Inhal Sol (2.5 mg/3 mL) UD INH SCH ×4 (01:00→19:14)
[2018-03-29 05:23] LABS: HEMOGLOBIN 8.6 g/dL (12.0-18.0); MEAN CELL VOLUME 101.9 fl (80.0-94.0); MEAN CORPUSCULAR HEMOGLOBIN 34.6 pg (27.0-31.0); RBC 2.49 Mil/uL (4.40-5.90); RED CELL DISTRIBUTION WIDTH 15.8 % (11.5-14.5); WHITE BLOOD COUNT 3.8 K/uL (4.8-10.8)
[2018-03-29] MEDS: Lactated Ringer's 1,000 ML IV SCH ×3 (05:24→23:13)
[2018-03-29 05:50] LABS: ALB/GLOB RATIO 0.6 (1.0-2.1); CALCIUM 7.4 mg/dL (8.4-10.2)
--- NOTE | 2018-03-29 08:18 | PN ---
DATE: 03/29/2018 SUBJECTIVE: The patient is seen and examined. Interim events noted. Consults noted and appreciated. Remains in intensive care unit. Awake, responsive, more conversant. Complains of right shoulder pain. Other pains are adequately controlled. PHYSICAL EXAMINATION: VITAL SIGNS: Stable. HEART: S1, S2, normal and regular, tachycardic. LUNGS: Good bilateral air exchange. ABDOMEN: The patient has multiple draining holes and colocutaneous fistula. Abdomen otherwise is nonacute. No guarding, no rigidity, no rebound. Bowel sounds present and normal. EXTREMITIES: No edema. No calf swelling. No tenderness. No acute ischemia. CENTRAL NERVOUS SYSTEM EXAM: Essentially unchanged. DIAGNOSTIC DATA: Available diagnostic data reviewed. Telemetry monitoring shows episodes of tachycardia. ASSESSMENT AND PLAN: Overall, the patient's general medical condition is stable hemodynamically and improved. Although, long-term prognosis remains guarded. Surgical consult noted. No surgical intervention at this time. Plan as ordered. Lucio Anton MD
[2018-03-29] MEDS: Pantoprazole 40 mg EC Tab PO SCH (08:38)
[2018-03-29] MEDS: Meropenem 500 MG in Sodium Chloride 0.9% 100 ML IVPB SCH ×2 (08:39→20:02)
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
[2018-03-29] MEDS ORDERED: Magnesium Sulfate 2 gm/50 ml 2 GM/50 ML BAG IVPB ONE (10:34)
--- NOTE | 2018-03-29 10:53 | CP.CCUPN ---
CCU Subjective - Physician Review Subjective (Free Text): Awake and alert, still dependent on low dose Levophed at 2.5mcg dose, SBP drops to 70's when off, no effect on mentation, c/o R shoulder / arm pain overnight, with decreased ROM / extension, denies any focal weakness nor paresthesias. Other vitals and I/O's reviewed. No fever spikes last 24H. SBPs 90s on Levophed at 2.5 mcg dose., HR 93 sinus; SPO2 100% on RA. ROS: No other pertinent negs or positives on 10+ system review. PMSFH: All other Nursing and physician documentation reviewed to date; no new pertinent info noted relevant to current medical problems. EXAM- HEENT: no icterus, no gaze preference, Pupils 3 mm and reactive NECK: No JVD visible, supple, carotids equal upstroke bilat CHEST: decreased BS at the bases, no wheezes audible HEART: regular, distant, tachy S1S2, no rubs ABD: softly and nontender, no tympany, no guarding, no organomegaly, BS hypoactive, enterocutaneous fistulas intact with stool output EXT: SCDs on bilat, no LE edema, no calf tenderness or palpable cords, distal pulses intact and symmetrical. NEURO: moves all extremities spontaneously. SKIN: no rashes, warm and dry LABS: WBC= 3.8 HGB= 8.6 PLTs= 89K Na= 136 K= 3.9 AI=757 HCO3= 28 BUN/Cr= 51/2.6 BS= 91 Mg = 1.4 IMPRESSION / MAJOR PROBLEMS NOW: 1. Severe Sepsis with Septic Shock 2' source with M. morganii sensitive to Merrem. 2. Dehydration, r/o SAMANTHA on CKD 3. s/p Metabolic Encephalopathy on admission 4. Hypokalemia induced by alkalinized fluids 5. H/o Jejunal perforation: s/p repair with Jejunostomy / Urostomy approx 8 months ago. PLAN: 1. Additional fluids, and colloid. See orders. Wean Vasopressors 2. Stop supplemental K, K normalized and off alkalinized fluids. BUN Cr slowly improving with hydration. 3. Surgical eval for small bowel enterocutaneous fistula reviewed, conservative approach for now. 4. Ongoing Merrem coverage. 5. Magnesium supplementation already ordered. 6. Watch platelet counts, check Fibrinogen level, repeat coags.
[2018-03-29] MEDS ORDERED: Albumin Human 5% (12.5 gm/250 ml) IV ONE (11:06)
[2018-03-29] MEDS ORDERED: Lactated Ringer's 1,000 ML IV SCH (11:15)
[2018-03-30] MEDS: Albuterol 0.083% Inhal Sol (2.5 mg/3 mL) UD INH SCH ×4 (01:14→19:04)
[2018-03-30 06:20] LABS: HEMOGLOBIN 8.6 g/dL (12.0-18.0); MEAN CELL VOLUME 101.9 fl (80.0-94.0); MEAN CORPUSCULAR HGB CONC 33.4 g/dL (33.0-37.0); RBC 2.53 Mil/uL (4.40-5.90); RED CELL DISTRIBUTION WIDTH 16.2 % (11.5-14.5); WHITE BLOOD COUNT 4.3 K/uL (4.8-10.8)
[2018-03-30] MEDS: Lactated Ringer's 1,000 ML IV SCH ×3 (06:34→23:56)
[2018-03-30 07:06] LABS: ALB/GLOB RATIO 0.6 (1.0-2.1); ALBUMIN 1.8 g/dL (3.5-5.0); CALCIUM 7.4 mg/dL (8.4-10.2)
--- NOTE | 2018-03-30 07:32 | CP.CCUPN ---
CCU Subjective - Physician Review Events Since Last Encounter (Free Text): Patient awake, no distress, no fever, no vomiting, on levophed, on O2 supplement, events reviewed CCU Objective - Vital Signs / Intake & Output Vital Signs (Last 4 hours): Vital Signs Temp Pulse Resp BP Pulse Ox 03/30/18 06:45 74 11 L 113/67 94 L 03/30/18 06:16 72 15 93 L 03/30/18 06:00 72 10 L 113/67 92 L 03/30/18 05:00 79 13 109/57 L 98 03/30/18 04:00 98.5 F 75 14 109/57 L 94 L Intake and Output (Last 8hrs): Intake & Output 03/29/18 03/30/18 03/30/18 22:59 06:59 14:59 Intake Total 1566 1540 Output Total 585 1400 Balance 981 140 Weight 150 lb 14.4 oz Intake: IV 760 1350 Intake, Piggyback 456 90 Oral 350 100 Output: Drainage 400 600 Abdomen 10 600 Lower Abdomen 390 Urine 185 800 Urethral (Russell) 185 800 Other: # Bowel Movements 1 2 - Physical Exam Head: Positive for: Atraumatic, Normocephalic Pupils: Positive for: PERRL. Negative for: Sluggish, Non-Reactive, Pinpoint Extroacular Muscles: Positive for: EOMI Conjunctiva: Positive for: Normal. Negative for: Injected, Icteric Ears: Positive for: Normal, NORMAL TM Mouth: Positive for: Moist Mucous Membranes Pharnyx: Positive for: Normal Nose (Internal): Positive for: Normal Inspection Neck: Positive for: Normal Range of Motion, Trachea Midline. Negative for: Meningeal Signs, MIDLINE TENDERNESS, Paraspinal Tenderness, JVD, Lymphadenopathy, Bruit, Other Respiratory/Chest: Positive for: Clear to Auscultation, Good Air Exchange, Rales, Rhonchi. Negative for: Respiratory Distress, Accessory Muscle Use, Tachypneic Cardiovascular: Positive for: Regular Rate and Rhythm, Normal S1, S2. Negative for: Murmurs, Irregular Rhythm Abdomen: Positive for: Ostomy Tubes Lower Extremity: Positive for: Edema, NORMAL PULSES, Capillary Refill < 2 s. Negative for: CALF TENDERNESS Neurological: Positive for: Motor Func Grossly Intact Skin: Positive for: Warm. Negative for: Dry, Rashes - Medications Active Medications: Active Medications Generic Name Dose Route Start Last Admin Trade Name Freq PRN Reason Stop Dose Admin Acetaminophen 650 mg 03/29/18 00:49 Tylenol 325mg Tab PO Q6 PRN Other Albuterol Sulfate 2.5 mg 03/25/18 02:00 03/30/18 07:05 Albuterol 0.083% Inhal Mary (2.5 Mg/3 Ml) Ud INH Not Given RQ6 [facility] Heparin Sodium (Porcine) 5,000 units 03/25/18 01:00 03/30/18 00:36 Heparin SC 5,000 units Q8 [facility] Administration Protocol Meropenem 500 mg/ Sodium 100 mls @ 100 mls/hr 03/26/18 21:00 03/29/18 20:02 Chloride IVPB 100 mls/hr Q12 [facility] Administration Protocol Lactated Ringer's 1,000 mls @ 150 mls/hr 03/28/18 09:00 03/30/18 06:34 Lactated Ringer's IV 150 mls/hr .Q6H40M [facility] Administration Norepinephrine Bitartrate 4 mg 254 mls @ 9.53 mls/hr 03/29/18 12:30 03/29/18 12:24 / Dextrose IV 2.5 mcg/min .Q24H [facility] 9.53 mls/hr Administration Protocol 2.5 MCG/MIN Lactulose 20 gm 03/27/18 21:00 03/29/18 20:02 Enulose PO 20 gm Q12 [facility] Administration Morphine Sulfate 4 mg 03/27/18 14:40 03/30/18 04:53 Morphine IVP 4 mg Q4 PRN Administration Pain, moderate (4-7) Ondansetron HCl 4 mg 03/25/18 13:49 03/27/18 20:04 Zofran Inj IVP 4 mg Q4 PRN Administration Nausea/Vomiting Pantoprazole Sodium 40 mg 03/25/18 16:00 03/29/18 08:38 Protonix Ec Tab PO 40 mg DAILY [facility] Administration Sodium Phosphate 135 ml 03/29/18 08:00 03/29/18 15:56 Fleet Enema [place] 04/01/18 08:01 135 ml ONCE [facility] Administration Tramadol HCl 50 mg 03/29/18 00:50 Ultram PO Q6 PRN Pain, severe (8-10) - Patient Studies Lab Studies: Microbiology Studies 03/24/18 19:33 Blood Culture - Final Blood NO GROWTH AFTER 5 DAYS Gram Stain - Final TEST NOT PERFORMED 03/24/18 18:50 Blood Culture - Final Blood NO GROWTH AFTER 5 DAYS Gram Stain - Final TEST NOT PERFORMED 03/25/18 16:32 Blood Culture - Preliminary Blood-Venous NO GROWTH AFTER 4 DAYS 03/25/18 16:27 Blood Culture - Preliminary Blood-Venous NO GROWTH AFTER 4 DAYS Lab Studies 03/30/18 03/30/18 Range/Units 05:25 05:25 WBC 4.3 L (4.8-10.8) K/uL RBC 2.53 L (4.40-5.90) Mil/uL Hgb 8.6 L (12.0-18.0) g/dL Hct 25.8 L (35.0-51.0) % MCV 101.9 H (80.0-94.0) fl MCH 34.0 H (27.0-31.0) pg MCHC 33.4 (33.0-37.0) g/dL RDW 16.2 H (11.5-14.5) % Plt Count 77 L (130-400) K/uL Sodium 135 (132-148) mmol/l Potassium 4.1 (3.6-5.0) MMOL/L Chloride 103 (98-107) mmol/L Carbon Dioxide 27 (22-30) mmol/L Anion Gap 9 L (10-20) BUN 41 H (9-20) mg/dl Creatinine 2.4 H (0.8-1.5) mg/dl Est GFR ( Amer) 32 Est GFR (Non-Af Amer) 27 Random Glucose 82 (75-110) mg/dL Calcium 7.4 L (8.4-10.2) mg/dL Phosphorus 3.8 (2.5-4.5) mg/dl Magnesium 1.7 (1.6-2.3) MG/DL Total Bilirubin 2.0 H (0.2-1.3) mg/dl AST 22 (17-59) U/L ALT 36 (21-72) U/L Alkaline Phosphatase 65 (38-126) U/L Total Protein 5.0 L (6.3-8.2) G/DL Albumin 1.8 L (3.5-5.0) g/dL Globulin 3.2 (2.2-3.9) gm/dL Albumin/Globulin Ratio 0.6 L (1.0-2.1) Laboratory Results - last 24 hr 03/30/18 03/30/18 05:25 05:25 WBC 4.3 L RBC 2.53 L Hgb 8.6 L Hct 25.8 L MCV 101.9 H MCH 34.0 H MCHC 33.4 RDW 16.2 H Plt Count 77 L Sodium 135 Potassium 4.1 Chloride 103 Carbon Dioxide 27 Anion Gap 9 L BUN 41 H Creatinine 2.4 H Est GFR ( Amer) 32 Est GFR (Non-Af Amer) 27 Random Glucose 82 Calcium 7.4 L Phosphorus 3.8 Magnesium 1.7 Total Bilirubin 2.0 H AST 22 ALT 36 Alkaline Phosphatase 65 Total Protein 5.0 L Albumin 1.8 L Globulin 3.2 Albumin/Globulin Ratio 0.6 L Fingerstick Blood Sugar Results: 109 Critical Care Progress Note - Nutrition Nutrition: Nutrition Category Date Time Status Dysphagia/Modified Consistency Diet [DIET] Diets 03/29/18 Dinner Active Assessment/Plan - Assessment and Plan (Free Text) Assessment: A/P Severe sepsis with septic shock, dehydration, SAMANTHA, hypokalemia improved, h/o jejunal perforation s/p repair with jejunostomy/urostomy - Continue meds - Surgery follow up - O2 supplement - Pulmonary toilets - Follow up labs critical care 35 min
[2018-03-30] MEDS: Meropenem 500 MG in Sodium Chloride 0.9% 100 ML IVPB SCH ×2 (08:34→22:30)
[2018-03-30] MEDS: Pantoprazole 40 mg EC Tab PO SCH (08:35)
--- NOTE | 2018-03-30 08:55 | CP.PCM.CON ---
History of Present Illness - History of Present Illness History of Present Illness: urology called to see pt for eval of uti possible vesico enteric fistua Pt in bed has no acute suprapubic pain. He has a ct showingmfilled bladder with air levels following recent insertion of connors cathater. Urine in connors concentrated without feces. Urine c&s shows uti morganella species. Pt currently onMeropenum which should be sufficient for control. He has mutiple abdominalissues nform prior intestinal surgeries. Will follow urologically as needed Past Patient History - Infectious Disease Hx of Infectious Diseases: None - Tetanus Immunizations Tetanus Immunization: Unknown - Past Medical History & Family History Past Medical History?: Yes - Past Social History Smoking Status: Former Smoker Chewing Tobacco Use: No Cigar Use: No Alcohol: Other Drugs: Denies Home Situation {Lives}: [facility] - CARDIAC Hx Atrial Fibrillation: Yes Hx Congestive Heart Failure: Yes Hx Hypertension: Yes Hx Pacemaker: No - PULMONARY Hx Chronic Obstructive Pulmonary Disease (COPD): Yes Hx Pneumonia: Yes - NEUROLOGICAL Hx Neurological Disorder: Yes - HEENT Hx HEENT Problems: Yes Other/Comment: Glasses - RENAL Hx Chronic Kidney Disease: No - ENDOCRINE/METABOLIC Hx Endocrine Disorders: No - HEMATOLOGICAL/ONCOLOGICAL Hx Blood Disorders: No Hx Human Immunodeficiency Virus (HIV): No - INTEGUMENTARY Hx Dermatological Problems: Yes - MUSCULOSKELETAL/RHEUMATOLOGICAL Hx Arthritis: Yes Hx Fractures: Yes Hx Rheumatoid Arthritis: Yes - GASTROINTESTINAL Hx Gastrointestinal Disorders: Yes Hx Ulcer: Yes - GENITOURINARY/GYNECOLOGICAL Hx Genitourinary Disorders: Yes - PSYCHIATRIC Hx Psychophysiologic Disorder: No Hx Substance Use: No - SURGICAL HISTORY Hx Cholecystectomy: Yes - ANESTHESIA Hx Anesthesia: Yes Hx Anesthesia Reactions: No Hx Malignant Hyperthermia: No Meds Allergies/Adverse Reactions: Allergies Allergy/AdvReac Type Severity Reaction Status Date / Time No Known Allergies Allergy Verified 02/19/18 14:57 - Medications Medications: Current Medications Acetaminophen (Tylenol 325mg Tab) 650 mg PO Q6 PRN PRN Reason: Other Albuterol Sulfate (Albuterol 0.083% Inhal Mary (2.5 Mg/3 Ml) Ud) 2.5 mg INH RQ6 [facility]MAINE Last Admin: 03/30/18 07:05 Dose: Not Given Heparin Sodium (Porcine) (Heparin) 5,000 units SC Q8 [facility]MAINE; Protocol Last Admin: 03/30/18 08:34 Dose: 5,000 units Meropenem 500 mg/ Sodium (Chloride) 100 mls @ 100 mls/hr IVPB Q12 [facility]; Protocol Last Admin: 03/30/18 08:34 Dose: 100 mls/hr Lactated Ringer's (Lactated Ringer's) 1,000 mls @ 150 mls/hr IV .Q6H40M [facility] Last Admin: 03/30/18 06:34 Dose: 150 mls/hr Norepinephrine Bitartrate 4 mg (/ Dextrose) 254 mls @ 9.53 mls/hr IV .Q24H [facility]; Protocol Last Admin: 03/29/18 12:24 Dose: 2.5 mcg/min, 9.53 mls/hr Lactulose (Enulose) 20 gm PO Q12 [facility] Last Admin: 03/30/18 08:33 Dose: 20 gm Morphine Sulfate (Morphine) 4 mg IVP Q4 PRN PRN Reason: Pain, moderate (4-7) Last Admin: 03/30/18 04:53 Dose: 4 mg Ondansetron HCl (Zofran Inj) 4 mg IVP Q4 PRN PRN Reason: Nausea/Vomiting Last Admin: 03/27/18 20:04 Dose: 4 mg Pantoprazole Sodium (Protonix Ec Tab) 40 mg PO DAILY [facility] Last Admin: 03/30/18 08:35 Dose: 40 mg Sodium Phosphate (Fleet Enema) 135 ml [place] ONCE [facility] Stop: 04/01/18 08:01 Last Admin: 03/29/18 15:56 Dose: 135 ml Tramadol HCl (Ultram) 50 mg PO Q6 PRN PRN Reason: Pain, severe (8-10) Last Admin: 03/30/18 08:37 Dose: 50 mg Results - Vital Signs Recent Vital Signs: Last Vital Signs Temp 98.2 F 03/30/18 07:43 Pulse 84 03/30/18 08:32 Resp 20 03/30/18 08:32 BP 113/68 03/30/18 08:32 Pulse Ox 95 03/30/18 08:32 - Labs Result Diagrams: 03/30/18 05:25 03/30/18 05:25 Labs: Laboratory Results - last 24 hr 03/30/18 03/30/18 05:25 05:25 WBC 4.3 L RBC 2.53 L Hgb 8.6 L Hct 25.8 L MCV 101.9 H MCH 34.0 H MCHC 33.4 RDW 16.2 H Plt Count 77 L Sodium 135 Potassium 4.1 Chloride 103 Carbon Dioxide 27 Anion Gap 9 L BUN 41 H Creatinine 2.4 H Est GFR ( Amer) 32 Est GFR (Non-Af Amer) 27 Random Glucose 82 Calcium 7.4 L Phosphorus 3.8 Magnesium 1.7 Total Bilirubin 2.0 H AST 22 ALT 36 Alkaline Phosphatase 65 Total Protein 5.0 L Albumin 1.8 L Globulin 3.2 Albumin/Globulin Ratio 0.6 L
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
[2018-03-31] MEDS: Albuterol 0.083% Inhal Sol (2.5 mg/3 mL) UD INH SCH ×4 (01:48→19:17)
[2018-03-31] MEDS ORDERED: Morphine 4 MG/ML VIAL IVP ONE (03:13)
[2018-03-31 06:12] LABS: HEMOGLOBIN 8.2 g/dL (12.0-18.0); MEAN CELL VOLUME 102.6 fl (80.0-94.0); MEAN CORPUSCULAR HEMOGLOBIN 34.3 pg (27.0-31.0); MEAN CORPUSCULAR HGB CONC 33.4 g/dL (33.0-37.0); RBC 2.38 Mil/uL (4.40-5.90); RED CELL DISTRIBUTION WIDTH 15.6 % (11.5-14.5)
[2018-03-31 06:38] LABS: ALB/GLOB RATIO 0.6 (1.0-2.1); ALBUMIN 1.7 g/dL (3.5-5.0); CALCIUM 7.4 mg/dL (8.4-10.2)
--- NOTE | 2018-03-31 07:26 | CP.CCUPN ---
CCU Subjective - Physician Review Events Since Last Encounter (Free Text): Patient awake, no distress, no fever, no vomiting, on levophed, on O2 supplement, events reviewed CCU Objective - Vital Signs / Intake & Output Vital Signs (Last 4 hours): Vital Signs Temp Pulse Resp BP Pulse Ox 03/31/18 06:00 68 16 88/53 L 96 03/31/18 05:00 62 25 H 93/51 L 96 03/31/18 04:00 97.4 F L 65 13 91/55 L 94 L Intake and Output (Last 8hrs): Intake & Output 03/30/18 03/31/18 03/31/18 22:59 06:59 14:59 Intake Total 2809 1560 Output Total 1000 1800 Balance 1809 -240 Weight 154 lb 14.4 oz Intake: IV 2809 1200 Oral 360 Output: Drainage 300 1350 Abdomen 1050 Lower Abdomen 300 300 Urine 700 450 Urethral (Russell) 700 450 - Physical Exam Head: Positive for: Atraumatic, Normocephalic Pupils: Positive for: PERRL. Negative for: Sluggish, Non-Reactive, Pinpoint Extroacular Muscles: Positive for: EOMI Conjunctiva: Positive for: Normal. Negative for: Injected, Icteric Ears: Positive for: Normal, NORMAL TM Mouth: Positive for: Moist Mucous Membranes Pharnyx: Positive for: Normal Nose (Internal): Positive for: Normal Inspection Neck: Positive for: Normal Range of Motion, Trachea Midline. Negative for: Meningeal Signs, MIDLINE TENDERNESS, Paraspinal Tenderness, JVD, Lymphadenopathy, Bruit, Other Respiratory/Chest: Positive for: Clear to Auscultation, Good Air Exchange, Rales, Rhonchi. Negative for: Respiratory Distress, Accessory Muscle Use, Tachypneic Cardiovascular: Positive for: Regular Rate and Rhythm, Normal S1, S2. Negative for: Murmurs, Irregular Rhythm Abdomen: Positive for: Ostomy Tubes Lower Extremity: Positive for: Edema, NORMAL PULSES, Capillary Refill < 2 s. Negative for: CALF TENDERNESS Neurological: Positive for: Motor Func Grossly Intact Skin: Positive for: Warm. Negative for: Dry, Rashes - Medications Active Medications: Active Medications Generic Name Dose Route Start Last Admin Trade Name Freq PRN Reason Stop Dose Admin Acetaminophen 650 mg 03/29/18 00:49 Tylenol 325mg Tab PO Q6 PRN Other Albuterol Sulfate 2.5 mg 03/25/18 02:00 03/31/18 01:48 Albuterol 0.083% Inhal Mary (2.5 Mg/3 Ml) Ud INH Not Given RQ6 [facility]MAINE Heparin Sodium (Porcine) 5,000 units 03/25/18 01:00 03/30/18 23:59 Heparin SC 5,000 units Q8 [facility] Administration Protocol Meropenem 500 mg/ Sodium 100 mls @ 100 mls/hr 03/26/18 21:00 03/30/18 22:30 Chloride IVPB 100 mls/hr Q12 [facility] Administration Protocol Lactated Ringer's 1,000 mls @ 150 mls/hr 03/28/18 09:00 03/30/18 23:56 Lactated Ringer's IV 150 mls/hr .Q6H40M [facility] Administration Lactulose 20 gm 03/27/18 21:00 03/30/18 22:29 Enulose PO 20 gm Q12 [facility] Administration Ondansetron HCl 4 mg 03/25/18 13:49 03/27/18 20:04 Zofran Inj IVP 4 mg Q4 PRN Administration Nausea/Vomiting Pantoprazole Sodium 40 mg 03/25/18 16:00 03/30/18 08:35 Protonix Ec Tab PO 40 mg DAILY [facility] Administration Sodium Phosphate 135 ml 03/29/18 08:00 03/29/18 15:56 Fleet Enema ND 04/01/18 08:01 135 ml ONCE [facility] Administration Tramadol HCl 50 mg 03/29/18 00:50 03/30/18 22:57 Ultram PO 50 mg Q6 PRN Administration Pain, severe (8-10) - Patient Studies Lab Studies: Microbiology Studies 03/25/18 16:32 Blood Culture - Final Blood-Venous NO GROWTH AFTER 5 DAYS Gram Stain - Final TEST NOT PERFORMED 03/25/18 16:27 Blood Culture - Final Blood-Venous NO GROWTH AFTER 5 DAYS Gram Stain - Final TEST NOT PERFORMED Lab Studies 03/31/18 03/31/18 Range/Units 05:30 05:30 WBC 4.0 L (4.8-10.8) K/uL RBC 2.38 L (4.40-5.90) Mil/uL Hgb 8.2 L (12.0-18.0) g/dL Hct 24.4 L (35.0-51.0) % MCV 102.6 H (80.0-94.0) fl MCH 34.3 H (27.0-31.0) pg MCHC 33.4 (33.0-37.0) g/dL RDW 15.6 H (11.5-14.5) % Plt Count 64 L (130-400) K/uL Sodium 133 (132-148) mmol/l Potassium 3.8 (3.6-5.0) MMOL/L Chloride 105 (98-107) mmol/L Carbon Dioxide 25 (22-30) mmol/L Anion Gap 7 L (10-20) BUN 38 H (9-20) mg/dl Creatinine 2.0 H (0.8-1.5) mg/dl Est GFR ( Amer) 40 Est GFR (Non-Af Amer) 33 Random Glucose 93 (75-110) mg/dL Calcium 7.4 L (8.4-10.2) mg/dL Phosphorus 3.7 (2.5-4.5) mg/dl Magnesium 1.6 (1.6-2.3) MG/DL Total Bilirubin 2.1 H (0.2-1.3) mg/dl AST 17 D (17-59) U/L ALT 27 (21-72) U/L Alkaline Phosphatase 67 (38-126) U/L Total Protein 4.8 L (6.3-8.2) G/DL Albumin 1.7 L (3.5-5.0) g/dL Globulin 3.1 (2.2-3.9) gm/dL Albumin/Globulin Ratio 0.6 L (1.0-2.1) Laboratory Results - last 24 hr 03/31/18 03/31/18 05:30 05:30 WBC 4.0 L RBC 2.38 L Hgb 8.2 L Hct 24.4 L MCV 102.6 H MCH 34.3 H MCHC 33.4 RDW 15.6 H Plt Count 64 L Sodium 133 Potassium 3.8 Chloride 105 Carbon Dioxide 25 Anion Gap 7 L BUN 38 H Creatinine 2.0 H Est GFR ( Amer) 40 Est GFR (Non-Af Amer) 33 Random Glucose 93 Calcium 7.4 L Phosphorus 3.7 Magnesium 1.6 Total Bilirubin 2.1 H AST 17 D ALT 27 Alkaline Phosphatase 67 Total Protein 4.8 L Albumin 1.7 L Globulin 3.1 Albumin/Globulin Ratio 0.6 L Fingerstick Blood Sugar Results: 109 Critical Care Progress Note - Nutrition Nutrition: Nutrition Category Date Time Status Dysphagia/Modified Consistency Diet [DIET] Diets 03/29/18 Dinner Active Assessment/Plan - Assessment and Plan (Free Text) Assessment: A/P Severe sepsis with septic shock, dehydration, SAMANTHA, hypokalemia improved, h/o jejunal perforation s/p repair with jejunostomy/urostomy - Continue meds - Surgery follow up - O2 supplement - Pulmonary toilets - Follow up labs critical care 35 min
[2018-03-31] MEDS: Meropenem 500 MG in Sodium Chloride 0.9% 100 ML IVPB SCH ×2 (09:11→20:42)
[2018-03-31] MEDS: Pantoprazole 40 mg EC Tab PO SCH (09:12)
[2018-03-31] MEDS: Lactated Ringer's 1,000 ML IV SCH ×2 (09:31→18:50)
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
--- NOTE | 2018-03-31 11:15 | PN ---
DATE: 03/31/2018 SUBJECTIVE: The patient is seen and examined. Interim events. Consults noted and appreciated. Fire Operations Forester and Surgery followup and intervention noted and appreciated. Case discussed with import/export freight forwarder. The patient is awake, responsive, feels okay. Denies any chest pain or shortness of breath, shoulder pain improved. Abdominal pain controlled. PHYSICAL EXAMINATION: GENERAL: The patient is in no acute distress. VITAL SIGNS: Stable. HEART: S1 and S2, normal and regular. LUNGS: Good bilateral air exchange. ABDOMEN: The patient has drainage from abdominal wall fistula. No sign of acute abdomen. No guarding, no rigidity, no rebound. Bowel sounds are plus and normal. EXTREMITIES: No edema. No calf swelling. No tenderness. No acute ischemia. CENTRAL NERVOUS SYSTEM: Essentially unchanged. DIAGNOSTIC DATA: Available diagnostic data reviewed. Telemetry monitoring does not show arrhythmias. ASSESSMENT: Overall, the patient's general medical condition is stable. Long-term prognosis remains poor. PLAN: As ordered. Lucio Anton MD
[2018-04-01] MEDS: Lactated Ringer's 1,000 ML IV SCH ×5 (00:26→20:06)
--- NOTE | 2018-04-01 00:31 | CP.PCM.PCO ---
Physician Communication Note - Physician Communication Note Physician Communication Note: Heparin held because of Thrombocytopenia.. Will send for HIT panel.
[2018-04-01] MEDS: Albuterol 0.083% Inhal Sol (2.5 mg/3 mL) UD INH SCH (02:21)
[2018-04-01 05:42] LABS: HEMOGLOBIN 8.3 g/dL (12.0-18.0); MEAN CELL VOLUME 101.5 fl (80.0-94.0); MEAN CORPUSCULAR HEMOGLOBIN 34.6 pg (27.0-31.0); RBC 2.41 Mil/uL (4.40-5.90); RED CELL DISTRIBUTION WIDTH 15.6 % (11.5-14.5); WHITE BLOOD COUNT 3.6 K/uL (4.8-10.8)
[2018-04-01 06:04] LABS: ALB/GLOB RATIO 0.5 (1.0-2.1); ALBUMIN 1.7 g/dL (3.5-5.0); CALCIUM 7.3 mg/dL (8.4-10.2)
[2018-04-01] MEDS: Pantoprazole 40 mg EC Tab PO SCH (08:33)
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
[2018-04-01] MEDS ORDERED: Magnesium Sulfate 1 gm in D5W 1 GM/100 ML BAG IVPB ONE (08:47)
--- NOTE | 2018-04-01 09:04 | PN ---
DATE: 03/30/2018 SUBJECTIVE: The patient seen and examined. Interim events noted. Consults noted and appreciated. Surgical and faculty research assistant intervention noted and appreciated. Case was discussed with the surgeon at length. Apparently, the patient does not have colocutaneous fistula. The patient probably has bilious drainage from the abdominal opening. The patient feels okay. Complains of shoulder pain, controlled with medication. No new complaint of chest pain, shortness of breath or abdominal pain. PHYSICAL EXAMINATION: GENERAL: The patient is in no acute distress. VITAL SIGNS: Stable. HEART EXAM: S1, S2 normal and regular. LUNGS: Good bilateral air exchange. ABDOMEN: Soft and nontender. EXTREMITIES EXAM: No edema, no calf swelling, no tenderness, no acute ischemia. CENTRAL NERVOUS SYSTEM EXAM: Essentially unchanged. ABDOMINAL EXAM: Does not reveal any acute abdomen. No guarding. No rigidity. No rebound. The patient does have fistula, which is still draining. DIAGNOSTIC DATA: Available diagnostic data reviewed. Telemetry monitoring does not reveal significant arrhythmias. ASSESSMENT AND PLAN: Overall, the patient's general medical condition is hemodynamically stable and improved. brim pouncer prognosis still remains guarded. Plan as ordered. Lucio Anton MD
[2018-04-01 16:12] VITALS: BMI 20.5
--- NOTE | 2018-04-01 22:46 | PN ---
DATE: 04/01/2018 CRITICAL CARE PROGRESS NOTE LOCATION: The patient in ICU, bed 432. Time spent 35 minutes. The patient is seen and evaluated at the bedside. Past medical, surgical, family and social history reviewed. Events overnight noted. Case discussed in multidisciplinary ICU rounds this morning. SUBJECTIVE: A 73-year-old male senior care resident with history significant for CA of stomach, status post surgery with complicated with colocutaneous fistula, IVC filter, cholecystectomy, cystectomy, multiple back surgeries, history of COPD, CHF, pneumonia. Admitted with poor appetite, electrolyte abnormalities. On admission, CAT scan of the abdomen and pelvis showed a markedly distended urinary bladder with air-fluid level and no evidence of bowel obstruction. Seen by surgery, consult noted. No significant drainage through the fistula. Still noted nonhealing abdominal wall wound with drainage in the lower abdomen. Overnight, afebrile, normotensive. PHYSICAL EXAMINATION: VITAL SIGNS: Temperature 98.2, heart rate 65, blood pressure 102/61. Intake 4550, output 2370, positive balance 2180. Weight 151 pounds. HEAD, EYES, EARS, NOSE AND THROAT: Pupils are reactive. Conjunctivae pale. Sclerae white. NECK: Supple. Trachea central. CHEST: Bilateral breath sounds. Clear to auscultation anteriorly and laterally. HEART: Rhythm regular. S1 and S2 normal. ABDOMEN: The ostomy bag in place with abdominal wound x2 with drainage like mixed biliary and/or fecal material EXTREMITIES: 1+ edema. NEUROLOGIC EXAMINATION: Nonfocal. CURRENT MEDICATIONS: Tylenol 650 mg every 6 hours p.r.n., heparin 5000 units subcu every 8 hours, Ringer's lactate at 150 mL per hour, lactulose 20 g p.o. every 12 hours, morphine 2 mg IV every 4 hours p.r.n., Zofran 4 mg IV every 4 hours p.r.n., Protonix 40 mg p.o. daily. LABORATORY DATA: Urinalysis: Rbc's 12, leukocyte esterase moderate, nitrite positive. Hematology: WBC 3.6, hemoglobin 8.3, hematocrit 24.5, platelet count 67. SMA-7: Sodium 134, potassium 3.8, chloride 104, CO2 of 25, blood urea nitrogen 31, creatinine 1.9, random glucose 76, calcium 7.3, phosphorus 3.1, magnesium 1.4. Total bilirubin 1.7, AST 21, ALT 32, alkaline phosphatase 74, total protein 4.8, albumin 1.7. Urinalysis: Rbcs 12, urobilinogen 4, nitrite positive. Microbiology: Urine culture positive for Morganella morganii. Blood culture, no growth reported. Urine culture, multiple species. EKG on 03/26/2018, atrial fibrillation with rapid ventricular response. IMPRESSION AND PLAN: 1. Neuro: Alert and awake. Follows commands appropriate. 2. Pulmonary: No acute issues. History of chronic obstructive pulmonary disease. Use bronchodilator as needed. 3. Cardiac: History of atrial fibrillation, rate controlled. Continue heparin 5000 units subcutaneously every 8 hours. 4. Hematology: Leukocytosis trending down. Hemoglobin and hematocrit are stable. Platelet count trending down. Heparin on hold. Suspected heparin-induced thrombocytopenia. Workup in progress. 5. Renal: Acute on chronic renal insufficiency, improved with intravenous hydration. Appreciate renal followup. 6. Infectious Disease: Urinary tract infection. Abdominal wall drainage, status post surgery for cancer of stomach, status post inferior vena cava filter. Prognosis remains guarded. Continue current management. Consider transfer to medical/surgery floor. Roney Branch MD
[2018-04-02] MEDS: Lactated Ringer's 1,000 ML IV SCH ×3 (04:17→22:58)
[2018-04-02 05:45] LABS: HEMOGLOBIN 8.2 g/dL (12.0-18.0); MEAN CELL VOLUME 100.8 fl (80.0-94.0); MEAN CORPUSCULAR HGB CONC 34.7 g/dL (33.0-37.0); RBC 2.34 Mil/uL (4.40-5.90); RED CELL DISTRIBUTION WIDTH 15.6 % (11.5-14.5); WHITE BLOOD COUNT 3.6 K/uL (4.8-10.8)
[2018-04-02 06:11] LABS: ALB/GLOB RATIO 0.5 (1.0-2.1); ALBUMIN 1.5 g/dL (3.5-5.0); CALCIUM 7.3 mg/dL (8.4-10.2)
--- NOTE | 2018-04-02 07:35 | CP.PCM.PN ---
<DeniNaet - Last Filed: 04/02/18 07:53> Subjective - Date & Time of Evaluation Date of Evaluation: 04/02/18 Time of Evaluation: 08:00 - Subjective Subjective: Overnight: Pt's Heparin held due to thrombocytopenia. No acute events Patient seen and examined this morning with Dr. Anton. Patient is alert and not in any acute distress. Complains of abdominal and back pain. Discussed plan for physical therapy and downgrade to Telemetry. Tylenol 650mg po ordered. Objective - Vital Signs/Intake and Output Vital Signs (last 24 hours): Temp Pulse Resp BP Pulse Ox 98.1 F 61 17 111/55 L 99 04/02/18 04:00 04/02/18 06:00 04/02/18 06:00 04/02/18 06:00 04/02/18 06:00 Intake and Output: 04/02/18 04/02/18 06:59 18:59 Intake Total 1800 Balance 1800 - Medications Medications: Current Medications Acetaminophen (Tylenol 325mg Tab) 650 mg PO Q6 PRN PRN Reason: Other Last Admin: 04/01/18 14:03 Dose: 650 mg Heparin Sodium (Porcine) (Heparin) 5,000 units SC Q8 [facility]; Protocol Last Admin: 03/31/18 17:07 Dose: 5,000 units Lactated Ringer's (Lactated Ringer's) 1,000 mls @ 150 mls/hr IV .Q6H40M [facility] Last Admin: 04/02/18 04:17 Dose: 150 mls/hr Lactulose (Enulose) 20 gm PO Q12 [facility] Last Admin: 04/01/18 20:05 Dose: 20 gm Morphine Sulfate (Morphine) 2 mg IVP Q4 PRN PRN Reason: Pain, moderate (4-7) Last Admin: 04/01/18 21:04 Dose: 2 mg Ondansetron HCl (Zofran Inj) 4 mg IVP Q4 PRN PRN Reason: Nausea/Vomiting Last Admin: 03/27/18 20:04 Dose: 4 mg Pantoprazole Sodium (Protonix Ec Tab) 40 mg PO DAILY [facility] Last Admin: 04/01/18 08:33 Dose: 40 mg - Labs Labs: 04/02/18 05:00 04/02/18 05:00 PT 13.8 Seconds (9.8-13.1) H 03/24/18 18:50 INR 1.2 03/24/18 18:50 APTT 26.4 Seconds (25.6-37.1) 03/24/18 18:50 - Constitutional Appears: Non-toxic, No Acute Distress - Head Exam Head Exam: NORMAL INSPECTION - Eye Exam Eye Exam: Normal appearance - ENT Exam ENT Exam: Mucous Membranes Moist - Neck Exam Neck Exam: Full ROM - Respiratory Exam Respiratory Exam: Clear to Ausculation Bilateral. absent: Rales, Wheezes - Cardiovascular Exam Cardiovascular Exam: REGULAR RHYTHM, +S1, +S2. absent: Murmur - GI/Abdominal Exam GI & Abdominal Exam: Soft, Tenderness. absent: Distended Additional comments: midline enterocutaneos fistula, 2 ostomy bags with stool/undigested food, no bleeding, towel partially soaked with yellow drainage, active bowel sounds, midl generalized tenderness - Extremities Exam Extremities Exam: Normal Capillary Refill. 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 Heel. Septic shock - resolved, no longer meets criteria - Off pressors, Hemodynamically stable - Will downgrade to Tele UTI - Ucx Kameroni - ID Dr. Castillo on board - S/P 7 days of Merrem (03/26 - 04/02)-- will f/u with ID for duration of antibiotics - Evaluated by Urologist, Dr. Loaiza, no intervention needed R. Heel Ulcer - Full thickness tissue loss, Stage 2/3 - Likely pressure ulcer; Frequent repositioning - Wound care w/ skin dressing changes - Off loading boots Abdominal Wound, Possible Enterocutaneous Fistula - S/P perforated Jejunum in 06/2017 - Abdomen CT- no evidence of SBO - Ostomy bags in place [Abdomen- 820cc, Lower Abdomen-630cc] - Surgery following- possible wound vac if fistula output is low - No Surgical Intervention SAMANTHA - Improved, Crea 1.7 - Likely pre-renal/ dehydration/sepsis - C/W fluids Electrolyte derangements -Hypokalemia 3.6 improved -Hypomagnesia 1.5. S/P 1gm IV MgSO4 today -Nephrology following AMS -Improved, likely metabolic encephalopathy -head CT no acute findings, chronic age related changes Afibb -Rate controlled -No home meds noted HTN -normotensive CHF -Systolic,Echo report from 12/2016, EF 35-405% -No home meds noted -Monitor fluid balance COPD -no home meds noted -monitor respiratory status, consider bronchodilators Mobility -PT Diet -Dysphagia -Supplement Discussed case with Dr. Anton <Lucio Anton - Last Filed: 04/03/18 18:47> Objective - Vital Signs/Intake and Output Vital Signs (last 24 hours): Temp Pulse Resp BP Pulse Ox 98.2 F 62 14 99/64 L 99 04/03/18 16:00 04/03/18 16:00 04/03/18 16:00 04/03/18 16:00 04/03/18 16:00 Intake and Output: 04/03/18 04/03/18 11:59 23:59 Intake Total 1440 2380 Output Total 1750 550 Balance -310 1830 - Medications Medications: Current Medications Acetaminophen (Tylenol 325mg Tab) 650 mg PO Q6 PRN PRN Reason: Other Last Admin: 04/02/18 15:38 Dose: 650 mg Heparin Sodium (Porcine) (Heparin) 5,000 units SC Q8 [facility]; Protocol Last Admin: 03/31/18 17:07 Dose: 5,000 units Lactated Ringer's (Lactated Ringer's) 1,000 mls @ 150 mls/hr IV .Q6H40M [facility] Last Admin: 04/03/18 15:18 Dose: 150 mls/hr Magnesium Sulfate/Dextrose (Magnesium Sulfate 1 Gm/100 Ml D5w) 1 gm in 100 mls @ 100 mls/hr IVPB ONCE [facility] Last Admin: 04/02/18 11:19 Dose: 100 mls/hr Lactulose (Enulose) 20 gm PO Q12 [facility] Last Admin: 04/03/18 08:43 Dose: 20 gm Morphine Sulfate (Morphine) 2 mg IVP Q4 PRN PRN Reason: Pain, moderate (4-7) Last Admin: 04/03/18 17:53 Dose: 2 mg Ondansetron HCl (Zofran Inj) 4 mg IVP Q4 PRN PRN Reason: Nausea/Vomiting Last Admin: 03/27/18 20:04 Dose: 4 mg Pantoprazole Sodium (Protonix Ec Tab) 40 mg PO DAILY [facility] Last Admin: 04/03/18 08:44 Dose: 40 mg - Labs Labs: 04/03/18 06:15 04/03/18 06:15 PT 13.8 Seconds (9.8-13.1) H 03/24/18 18:50 INR 1.2 03/24/18 18:50 APTT 26.4 Seconds (25.6-37.1) 03/24/18 18:50 Assessment and Plan - Assessment and Plan (Free Text) Assessment: Patient was personally seen and examined by me in rounds with residents. Available labs and diagnostic data reviewed. Case, Patient's condition and management plan discussed with residents in rounds. Agree with resident's progress note. Plan: As ordered.
[2018-04-02] MEDS ORDERED: Magnesium Sulfate 1 gm in D5W 1 GM/100 ML BAG IVPB SCH (08:30)
[2018-04-02] MEDS: Pantoprazole 40 mg EC Tab PO SCH (08:58)
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
[2018-04-03 06:34] LABS: HEMOGLOBIN 8.1 g/dL (12.0-18.0); MEAN CELL VOLUME 100.9 fl (80.0-94.0); MEAN CORPUSCULAR HEMOGLOBIN 34.4 pg (27.0-31.0); MEAN CORPUSCULAR HGB CONC 34.1 g/dL (33.0-37.0); RBC 2.35 Mil/uL (4.40-5.90); RED CELL DISTRIBUTION WIDTH 15.5 % (11.5-14.5); WHITE BLOOD COUNT 3.5 K/uL (4.8-10.8)
[2018-04-03 07:15] LABS: ALB/GLOB RATIO 0.5 (1.0-2.1); ALBUMIN 1.4 g/dL (3.5-5.0); CALCIUM 6.5 mg/dL (8.4-10.2)
[2018-04-03] MEDS: Lactated Ringer's 1,000 ML IV SCH ×4 (08:44→23:52)
[2018-04-03] MEDS: Pantoprazole 40 mg EC Tab PO SCH (08:44)
--- NOTE | 2018-04-03 12:30 | CP.PCM.PN ---
<DeniNate - Last Filed: 04/03/18 13:19> Subjective - Date & Time of Evaluation Date of Evaluation: 04/03/18 Time of Evaluation: 09:00 - Subjective Subjective: Pt seen and examined this morning with Dr. Anton. Noted to be lying in bed, no acute distress. Denies pain. States he has still not had BM yet. Objective - Vital Signs/Intake and Output Vital Signs (last 24 hours): Temp Pulse Resp BP Pulse Ox 97.9 F 69 23 107/61 95 04/03/18 07:50 04/03/18 07:50 04/03/18 07:50 04/03/18 07:50 04/03/18 07:50 Intake and Output: 04/03/18 04/03/18 06:59 18:59 Intake Total 1440 Output Total 1750 Balance -310 - Medications Medications: Current Medications Acetaminophen (Tylenol 325mg Tab) 650 mg PO Q6 PRN PRN Reason: Other Last Admin: 04/02/18 15:38 Dose: 650 mg Heparin Sodium (Porcine) (Heparin) 5,000 units SC Q8 [facility]; Protocol Last Admin: 03/31/18 17:07 Dose: 5,000 units Lactated Ringer's (Lactated Ringer's) 1,000 mls @ 150 mls/hr IV .Q6H40M [facility] Last Admin: 04/03/18 08:44 Dose: 150 mls/hr Magnesium Sulfate/Dextrose (Magnesium Sulfate 1 Gm/100 Ml D5w) 1 gm in 100 mls @ 100 mls/hr IVPB ONCE [facility] Last Admin: 04/02/18 11:19 Dose: 100 mls/hr Lactulose (Enulose) 20 gm PO Q12 [facility] Last Admin: 04/03/18 08:43 Dose: 20 gm Morphine Sulfate (Morphine) 2 mg IVP Q4 PRN PRN Reason: Pain, moderate (4-7) Last Admin: 04/03/18 08:46 Dose: 2 mg Ondansetron HCl (Zofran Inj) 4 mg IVP Q4 PRN PRN Reason: Nausea/Vomiting Last Admin: 03/27/18 20:04 Dose: 4 mg Pantoprazole Sodium (Protonix Ec Tab) 40 mg PO DAILY [facility] Last Admin: 04/03/18 08:44 Dose: 40 mg - Labs Labs: 04/03/18 06:15 04/03/18 06:15 PT 13.8 Seconds (9.8-13.1) H 03/24/18 18:50 INR 1.2 03/24/18 18:50 APTT 26.4 Seconds (25.6-37.1) 03/24/18 18:50 - Constitutional Appears: No Acute Distress - Head Exam Head Exam: ATRAUMATIC - Eye Exam Eye Exam: Normal appearance - ENT Exam ENT Exam: Mucous Membranes Moist - Neck Exam Neck Exam: Normal Inspection - Respiratory Exam Respiratory Exam: Clear to Ausculation Bilateral. absent: Rales, Wheezes - Cardiovascular Exam Cardiovascular Exam: REGULAR RHYTHM, +S1, +S2. absent: Murmur - GI/Abdominal Exam GI & Abdominal Exam: Soft. absent: Tenderness Additional comments: Abdominal ostomy bags in place, dark yellow/green fluid - Extremities Exam Extremities Exam: Normal Inspection. 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 Heel. 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 Castillo on board - S/P 7 days of Merrem (03/26 - 04/02)- Repeat UCx sent today - Evaluated by Urologist, Dr. Loaiza, no intervention needed Malnutrition, Low albumin, 1.4 - Likely due to poor bowel absorption vs rapid transit - Needs high caloric supplementation - Dietition referral placed - Will Consider paranteral nutrition R. Heel Ulcer - Full thickness tissue loss, Stage 2/3 - Likely pressure ulcer; Frequent repositioning - Wound care w/ skin dressing changes - Off loading boots SAMANTHA - Improved, Crea 1.6 - Likely pre-renal/ dehydration/sepsis - C/W fluids Electrolyte derangements -Hypokalemia 3.6 improved -Hypomagnesia 1.5. S/P 1gm IV MgSO4 today -Nephrology following Afibb -Rate controlled -No home meds noted HTN -normotensive CHF -Systolic,Echo report from 12/2016, EF 35-405% -No home meds noted -Monitor fluid balance COPD -no home meds noted -monitor respiratory status, consider bronchodilators Mobility -PT Diet -Dysphagia -Supplement Discussed case with Dr. Anton <Lucio Anton - Last Filed: 04/03/18 18:45> Objective - Vital Signs/Intake and Output Vital Signs (last 24 hours): Temp Pulse Resp BP Pulse Ox 98.2 F 62 14 99/64 L 99 04/03/18 16:00 04/03/18 16:00 04/03/18 16:00 04/03/18 16:00 04/03/18 16:00 Intake and Output: 04/03/18 04/03/18 11:59 23:59 Intake Total 1440 2380 Output Total 1750 550 Balance -310 1830 - Medications Medications: Current Medications Acetaminophen (Tylenol 325mg Tab) 650 mg PO Q6 PRN PRN Reason: Other Last Admin: 04/02/18 15:38 Dose: 650 mg Heparin Sodium (Porcine) (Heparin) 5,000 units SC Q8 [facility]; Protocol Last Admin: 03/31/18 17:07 Dose: 5,000 units Lactated Ringer's (Lactated Ringer's) 1,000 mls @ 150 mls/hr IV .Q6H40M [facility] Last Admin: 04/03/18 15:18 Dose: 150 mls/hr Magnesium Sulfate/Dextrose (Magnesium Sulfate 1 Gm/100 Ml D5w) 1 gm in 100 mls @ 100 mls/hr IVPB ONCE [facility] Last Admin: 04/02/18 11:19 Dose: 100 mls/hr Lactulose (Enulose) 20 gm PO Q12 [facility] Last Admin: 04/03/18 08:43 Dose: 20 gm Morphine Sulfate (Morphine) 2 mg IVP Q4 PRN PRN Reason: Pain, moderate (4-7) Last Admin: 04/03/18 17:53 Dose: 2 mg Ondansetron HCl (Zofran Inj) 4 mg IVP Q4 PRN PRN Reason: Nausea/Vomiting Last Admin: 03/27/18 20:04 Dose: 4 mg Pantoprazole Sodium (Protonix Ec Tab) 40 mg PO DAILY [facility] Last Admin: 04/03/18 08:44 Dose: 40 mg - Labs Labs: 04/03/18 06:15 04/03/18 06:15 PT 13.8 Seconds (9.8-13.1) H 03/24/18 18:50 INR 1.2 03/24/18 18:50 APTT 26.4 Seconds (25.6-37.1) 03/24/18 18:50 Assessment and Plan - Assessment and Plan (Free Text) Assessment: Patient was personally seen and examined by me in rounds with residents. Available labs and diagnostic data reviewed. Case, Patient's condition and management plan discussed with residents in rounds. Agree with resident's progress note. Plan: As ordered.
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
[2018-04-03] MEDS ORDERED: Magnesium Sulfate 1 gm in D5W 1 GM/100 ML BAG IVPB ONE (13:21)
[2018-04-04 05:31] LABS: BASO # 0.1 K/uL (0.0-0.2); BASO % 1.3 % (0.0-2.0); EOS # 0.2 K/uL (0.0-0.7); EOS % 3.9 % (0.0-4.0); HEMOGLOBIN 8.6 g/dL (12.0-18.0); LYMPH # 1.1 K/uL (1.0-4.3); LYMPH % 25.3 % (20.0-40.0); MEAN CELL VOLUME 100.6 fl (80.0-94.0); MEAN CORPUSCULAR HEMOGLOBIN 34.4 pg (27.0-31.0); MEAN CORPUSCULAR HGB CONC 34.2 g/dL (33.0-37.0); MONO # 0.3 K/uL (0.0-0.8); NEUT # 2.7 K/uL (1.8-7.0); NEUT % 63.5 % (50.0-75.0); NRBC % 0.1 % (0.0-0.0); RBC 2.51 Mil/uL (4.40-5.90); RED CELL DISTRIBUTION WIDTH 15.3 % (11.5-14.5); WHITE BLOOD COUNT 4.2 K/uL (4.8-10.8)
[2018-04-04 05:38] LABS: ALB/GLOB RATIO 0.5 (1.0-2.1); ALBUMIN 1.6 g/dL (3.5-5.0); CALCIUM 7.2 mg/dL (8.4-10.2)
[2018-04-04] MEDS: Pantoprazole 40 mg EC Tab PO SCH (09:11)
[2018-04-04] MEDS: Lactated Ringer's 1,000 ML IV SCH ×3 (09:17→22:00)
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
--- NOTE | 2018-04-04 11:48 | CP.PCM.PN ---
<Nate Cheema - Last Filed: 04/04/18 11:45> Subjective - Date & Time of Evaluation Date of Evaluation: 04/04/18 Time of Evaluation: 09:00 - Subjective Subjective: Pt seen and examined this morning with Dr. Anton. Noted to be lying in bed, no acute distress. Reports chronic back pain that is partially alleviated with Morphine. Output from Ostomy: 1000ml and 450ml over 24 hours Discussed case with surgical training specialist for re-evaluation considering high output from fistula. Objective - Vital Signs/Intake and Output Vital Signs (last 24 hours): Temp Pulse Resp BP Pulse Ox 98.1 F 67 34 H 104/67 96 04/04/18 08:44 04/04/18 08:44 04/04/18 08:44 04/04/18 08:44 04/04/18 08:44 Intake and Output: 04/04/18 04/04/18 06:59 18:59 Intake Total 1800 Output Total 950 Balance 850 - Medications Medications: Current Medications Acetaminophen (Tylenol 325mg Tab) 650 mg PO Q6 PRN PRN Reason: Pain scale 1-7 Fentanyl (Duragesic) 1 patch TD Q3D [facility]; Protocol Heparin Sodium (Porcine) (Heparin) 5,000 units SC Q8 [facility]; Protocol Last Admin: 03/31/18 17:07 Dose: 5,000 units Lactated Ringer's (Lactated Ringer's) 1,000 mls @ 150 mls/hr IV .Q6H40M [facility] Last Admin: 04/04/18 09:17 Dose: 150 mls/hr Magnesium Sulfate/Dextrose (Magnesium Sulfate 1 Gm/100 Ml D5w) 1 gm in 100 mls @ 100 mls/hr IVPB ONCE [facility] Last Admin: 04/02/18 11:19 Dose: 100 mls/hr Lactulose (Enulose) 20 gm PO Q12 [facility] Last Admin: 04/04/18 09:12 Dose: 20 gm Morphine Sulfate (Morphine) 2 mg IVP Q4 PRN PRN Reason: Pain, moderate (4-7) Last Admin: 04/04/18 09:29 Dose: 2 mg Ondansetron HCl (Zofran Inj) 4 mg IVP Q4 PRN PRN Reason: Nausea/Vomiting Last Admin: 03/27/18 20:04 Dose: 4 mg Pantoprazole Sodium (Protonix Ec Tab) 40 mg PO DAILY [facility] Last Admin: 04/04/18 09:11 Dose: 40 mg - Labs Labs: 04/04/18 04:45 04/04/18 04:45 PT 13.8 Seconds (9.8-13.1) H 03/24/18 18:50 INR 1.2 03/24/18 18:50 APTT 26.4 Seconds (25.6-37.1) 03/24/18 18:50 - Constitutional Appears: No Acute Distress, Chronically Ill - Eye Exam Eye Exam: Normal appearance - ENT Exam ENT Exam: Mucous Membranes Moist - Respiratory Exam Respiratory Exam: Clear to Ausculation Bilateral. absent: Wheezes - Cardiovascular Exam Cardiovascular Exam: REGULAR RHYTHM, +S1, +S2 - GI/Abdominal Exam GI & Abdominal Exam: Soft, Normal Bowel Sounds. absent: Tenderness Additional comments: Abdominal ostomy bags in place, top bag filled with partially digested food, light brown, lower bag partially filled. Towel covering abdomen soaked in yellow fluid. 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 Heel. 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 Now High output flow with minimally digested food. Nutritional status worsening. Albumin 1.6 - S/P perforated Jejunum in 06/2017 w/ surgical repair - Abdomen CT- no evidence of SBO - Ostomy bags in place; HIGH output >500cc/24 hr - Seen by surgery (03/28)- No Surgical Intervention. Re-discussed case with surgery in light of high output. Will re-asess pt today. - Wound Care UTI - Ucx Morgani - ID Dr. Castillo on board - S/P 7 days of Merrem (03/26 - 04/02)- Repeat UCx pending - Evaluated by Urologist, Dr. Loaiza, no intervention needed Malnutrition, Low albumin, 1.6 - Likely due to poor bowel absorption vs rapid transit - Needs high caloric supplementation - Dietition referral placed - Will Consider paranteral nutrition R. Heel Ulcer - Full thickness tissue loss, Stage 2/3 - Likely pressure ulcer; Frequent repositioning - Wound care w/ skin dressing changes - Off loading boots SAMANTHA - Slowly Improving, Crea 1.5 - Likely pre-renal/ dehydration/sepsis/GI losses - C/W maintenance fluids Electrolyte derangements -Hypokalemia 3.4 today, repleted -Hypomagnesia 1.6. -Nephrology following Afibb -Rate controlled -No home meds noted HTN -normotensive CHF -Systolic,Echo report from 12/2016, EF 35-405% -No home meds noted -Monitor fluid balance COPD -no home meds noted -monitor respiratory status, consider bronchodilators Mobility -PT Diet -Dysphagia -Supplement Discussed case with Dr. Anton <Lucio Anton - Last Filed: 04/07/18 17:39> Objective - Vital Signs/Intake and Output Vital Signs (last 24 hours): Temp Pulse Resp BP Pulse Ox 98.0 F 111 H 18 124/76 98 04/07/18 16:09 04/07/18 16:09 04/07/18 16:09 04/07/18 16:09 04/07/18 16:09 Intake and Output: 04/07/18 04/07/18 11:59 23:59 Intake Total 1830 Output Total 1250 Balance 580 - Medications Medications: Current Medications Acetaminophen (Tylenol 325mg Tab) 650 mg PO Q6 PRN PRN Reason: Pain scale 1-7 Fentanyl (Duragesic) 1 patch TD Q3D [facility]; Protocol Last Admin: 04/07/18 14:07 Dose: 1 patch Heparin Sodium (Porcine) (Heparin) 5,000 units SC Q8 [facility]; Protocol Last Admin: 04/06/18 08:50 Dose: 5,000 units Lactated Ringer's (Lactated Ringer's) 1,000 mls @ 150 mls/hr IV .Q6H40M [facility] Last Admin: 04/07/18 00:52 Dose: 150 mls/hr Lactulose (Enulose) 20 gm PO Q12 [facility] Last Admin: 04/07/18 08:45 Dose: 20 gm Magnesium Oxide (Mag-Ox) 400 mg PO BID [facility] Last Admin: 04/07/18 16:10 Dose: 400 mg Morphine Sulfate (Morphine) 2 mg IVP Q4 PRN PRN Reason: Pain, severe (8-10) Last Admin: 04/07/18 16:10 Dose: 2 mg Ondansetron HCl (Zofran Inj) 4 mg IVP Q4 PRN PRN Reason: Nausea/Vomiting Last Admin: 03/27/18 20:04 Dose: 4 mg Pantoprazole Sodium (Protonix Ec Tab) 40 mg PO DAILY [facility] Last Admin: 04/07/18 08:45 Dose: 40 mg - Labs Labs: 04/07/18 05:30 04/07/18 05:30 PT 13.8 Seconds (9.8-13.1) H 03/24/18 18:50 INR 1.2 03/24/18 18:50 APTT 26.4 Seconds (25.6-37.1) 03/24/18 18:50 Assessment and Plan - Assessment and Plan (Free Text) Assessment: Patient was personally seen and examined by me in rounds with residents. Available labs and diagnostic data reviewed. Case, Patient's condition and management plan discussed with residents in rounds. Agree with resident's progress note. Plan: As ordered.
[2018-04-04] MEDS: Potassium CL 10mEq/100ml 100 ML IVPB SCH ×3 (12:38→17:27)
--- NOTE | 2018-04-04 18:11 | CP.PCM.PN ---
<Wojciech Miller - Last Filed: 04/04/18 18:09> Subjective - Date & Time of Evaluation Date of Evaluation: 04/04/18 Time of Evaluation: 18:09 - Subjective Subjective: SURGERY NOTE FOR DR. WORTHY 73M seen and examined at bedside. Patient doing well, denies any pain, denies nausea and vomiting, denies fevers or chills. Patient has a good appetite and has been eating. He continues to have ostomy function and his fistula continues to secrete serous content with particulated material. Objective - Vital Signs/Intake and Output Vital Signs (last 24 hours): Temp Pulse Resp BP Pulse Ox 97.5 F L 65 16 113/89 100 04/04/18 16:00 04/04/18 16:00 04/04/18 16:00 04/04/18 16:00 04/04/18 16:00 Intake and Output: 04/04/18 04/04/18 06:59 18:59 Intake Total 1800 2220 Output Total 950 400 Balance 850 1820 - Medications Medications: Current Medications Acetaminophen (Tylenol 325mg Tab) 650 mg PO Q6 PRN PRN Reason: Pain scale 1-7 Fentanyl (Duragesic) 1 patch TD Q3D [facility]; Protocol Last Admin: 04/04/18 12:20 Dose: 1 patch Heparin Sodium (Porcine) (Heparin) 5,000 units SC Q8 [facility]; Protocol Last Admin: 03/31/18 17:07 Dose: 5,000 units Lactated Ringer's (Lactated Ringer's) 1,000 mls @ 150 mls/hr IV .Q6H40M [facility] Last Admin: 04/04/18 17:23 Dose: 150 mls/hr Magnesium Sulfate/Dextrose (Magnesium Sulfate 1 Gm/100 Ml D5w) 1 gm in 100 mls @ 100 mls/hr IVPB ONCE [facility] Last Admin: 04/02/18 11:19 Dose: 100 mls/hr Lactulose (Enulose) 20 gm PO Q12 [facility] Last Admin: 04/04/18 09:12 Dose: 20 gm Morphine Sulfate (Morphine) 2 mg IVP Q4 PRN PRN Reason: Pain, moderate (4-7) Last Admin: 04/04/18 17:29 Dose: 2 mg Ondansetron HCl (Zofran Inj) 4 mg IVP Q4 PRN PRN Reason: Nausea/Vomiting Last Admin: 03/27/18 20:04 Dose: 4 mg Pantoprazole Sodium (Protonix Ec Tab) 40 mg PO DAILY [facility] Last Admin: 04/04/18 09:11 Dose: 40 mg - Labs Labs: 04/04/18 04:45 04/04/18 04:45 PT 13.8 Seconds (9.8-13.1) H 03/24/18 18:50 INR 1.2 03/24/18 18:50 APTT 26.4 Seconds (25.6-37.1) 03/24/18 18:50 - Constitutional Appears: Non-toxic, No Acute Distress - Respiratory Exam Respiratory Exam: Clear to Ausculation Bilateral, NORMAL BREATHING PATTERN - Cardiovascular Exam Cardiovascular Exam: REGULAR RHYTHM, +S1, +S2 - GI/Abdominal Exam GI & Abdominal Exam: Soft. absent: Distended, Firm, Guarding, Rigid, Tenderness Additional comments: midline fistula draining serous fluid with particulated material - controlled fistula - Extremities Exam Extremities Exam: absent: Pedal Edema, Tenderness - Neurological Exam Neurological Exam: Alert, Awake Assessment and Plan - Assessment and Plan (Free Text) Assessment: 73M with stoma status and enterocutaneous fistula Plan: - Continue high protein diet - Supplement with protein shakes - Continue ostomy care Discussed with Dr. Zaynab Miller, PGY3 <Mook Worthy - Last Filed: 04/07/18 19:28> Objective - Vital Signs/Intake and Output Vital Signs (last 24 hours): Temp Pulse Resp BP Pulse Ox 98.0 F 111 H 18 124/76 98 04/07/18 16:09 04/07/18 16:09 04/07/18 16:09 04/07/18 16:09 04/07/18 16:09 - Medications Medications: Current Medications Acetaminophen (Tylenol 325mg Tab) 650 mg PO Q6 PRN PRN Reason: Pain scale 1-7 Fentanyl (Duragesic) 1 patch TD Q3D [facility]; Protocol Last Admin: 04/07/18 14:07 Dose: 1 patch Heparin Sodium (Porcine) (Heparin) 5,000 units SC Q8 [facility]; Protocol Last Admin: 04/06/18 08:50 Dose: 5,000 units Lactated Ringer's (Lactated Ringer's) 1,000 mls @ 150 mls/hr IV .Q6H40M [facility] Last Admin: 04/07/18 00:52 Dose: 150 mls/hr Lactulose (Enulose) 20 gm PO Q12 [facility] Last Admin: 04/07/18 08:45 Dose: 20 gm Magnesium Oxide (Mag-Ox) 400 mg PO BID [facility] Last Admin: 04/07/18 16:10 Dose: 400 mg Morphine Sulfate (Morphine) 2 mg IVP Q4 PRN PRN Reason: Pain, severe (8-10) Last Admin: 04/07/18 16:10 Dose: 2 mg Ondansetron HCl (Zofran Inj) 4 mg IVP Q4 PRN PRN Reason: Nausea/Vomiting Last Admin: 03/27/18 20:04 Dose: 4 mg Pantoprazole Sodium (Protonix Ec Tab) 40 mg PO DAILY [facility] Last Admin: 04/07/18 08:45 Dose: 40 mg - Labs Labs: 04/07/18 05:30 04/07/18 05:30 PT 13.8 Seconds (9.8-13.1) H 03/24/18 18:50 INR 1.2 03/24/18 18:50 APTT 26.4 Seconds (25.6-37.1) 03/24/18 18:50 Attending/Attestation - Attestation I have personally seen and examined this patient.: Yes I have fully participated in the care of the patient.: Yes I have reviewed all pertinent clinical information, including history, physical exam and plan: Yes Notes (Text): Pt was seen and examined at bedside Agree with above note and assessment Pt with EC fistula and resolving urosepsis Lab reviewed C.w wound care High protein diet Plan d.w primary team in detail
[2018-04-05] MEDS: Lactated Ringer's 1,000 ML IV SCH ×2 (04:42→12:12)
[2018-04-05 05:52] LABS: HEMOGLOBIN 9.1 g/dL (12.0-18.0); MEAN CELL VOLUME 102.4 fl (80.0-94.0); MEAN CORPUSCULAR HEMOGLOBIN 34.9 pg (27.0-31.0); MEAN CORPUSCULAR HGB CONC 34.1 g/dL (33.0-37.0); RBC 2.61 Mil/uL (4.40-5.90); RED CELL DISTRIBUTION WIDTH 15.5 % (11.5-14.5); WHITE BLOOD COUNT 4.1 K/uL (4.8-10.8)
[2018-04-05 06:17] LABS: ALB/GLOB RATIO 0.5 (1.0-2.1); ALBUMIN 1.8 g/dL (3.5-5.0); ALT/SGPT 23 U/L (21-72); AST/SGOT 23 U/L (17-59); BLOOD UREA NITROGEN 19 mg/dl (9-20); CALCIUM 7.2 mg/dL (8.4-10.2); GFR NON-AFRICAN AMERICAN 50
[2018-04-05] MEDS: Pantoprazole 40 mg EC Tab PO SCH (08:48)
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
[2018-04-05] MEDS ORDERED: Magnesium Sulfate 1 gm in D5W 1 GM/100 ML BAG IVPB ONE (10:53)
--- NOTE | 2018-04-05 12:19 | CP.PCM.PN ---
<Nate Cheema - Last Filed: 04/05/18 12:17> Subjective - Date & Time of Evaluation Date of Evaluation: 04/05/18 Time of Evaluation: 08:00 - Subjective Subjective: Pt seen and examined this morning with Dr. Anton. Discussed case with surgical tech- current recommendation is to start high calorie/protein rich diet. Pt reports chronic abdominal pain. Has been eating reports good appetite. Objective - Vital Signs/Intake and Output Vital Signs (last 24 hours): Temp Pulse Resp BP Pulse Ox 98.1 F 62 13 105/54 L 100 04/05/18 08:00 04/05/18 09:00 04/05/18 09:00 04/05/18 09:00 04/05/18 09:00 Intake and Output: 04/05/18 04/05/18 06:59 18:59 Intake Total 2040 840 Output Total 325 Balance 1715 840 - Medications Medications: Current Medications Acetaminophen (Tylenol 325mg Tab) 650 mg PO Q6 PRN PRN Reason: Pain scale 1-7 Fentanyl (Duragesic) 1 patch TD Q3D [facility]; Protocol Last Admin: 04/04/18 12:20 Dose: 1 patch Heparin Sodium (Porcine) (Heparin) 5,000 units SC Q8 [facility]; Protocol Last Admin: 03/31/18 17:07 Dose: 5,000 units Lactated Ringer's (Lactated Ringer's) 1,000 mls @ 150 mls/hr IV .Q6H40M [facility] Last Admin: 04/05/18 12:12 Dose: 150 mls/hr Lactulose (Enulose) 20 gm PO Q12 [facility] Last Admin: 04/05/18 08:41 Dose: 20 gm Ondansetron HCl (Zofran Inj) 4 mg IVP Q4 PRN PRN Reason: Nausea/Vomiting Last Admin: 03/27/18 20:04 Dose: 4 mg Pantoprazole Sodium (Protonix Ec Tab) 40 mg PO DAILY [facility] Last Admin: 04/05/18 08:48 Dose: 40 mg - Labs Labs: 04/05/18 05:00 04/05/18 05:00 PT 13.8 Seconds (9.8-13.1) H 03/24/18 18:50 INR 1.2 03/24/18 18:50 APTT 26.4 Seconds (25.6-37.1) 03/24/18 18:50 - Constitutional Appears: Chronically Ill - Head Exam Head Exam: NORMAL INSPECTION - Eye Exam Eye Exam: Normal appearance - ENT Exam ENT Exam: Mucous Membranes Moist - Respiratory Exam Respiratory Exam: Clear to Ausculation Bilateral - Cardiovascular Exam Cardiovascular Exam: REGULAR RHYTHM - GI/Abdominal Exam GI & Abdominal Exam: Soft. absent: Tenderness Additional comments: Abdominal ostomy bags in place, top bag filled with light brown puried fluid, partially filled. Towel covering abdomen soaked in yellow fluid. - Extremities Exam Extremities Exam: Normal Capillary Refill. 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 Heel. 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 Now High output flow with minimally digested food. Nutritional status worsening. Albumin 1.7 today - S/P perforated Jejunum in 06/2017 w/ surgical repair - Abdomen CT- no evidence of SBO - Ostomy bags in place; HIGH output >500cc/24 hr - Seen by surgery (03/28)- No Surgical Intervention. Re-discussed case with surgery in light of high output. Will re-asess pt today. - Wound Care Malnutrition, Low albumin, 1.7 - Likely due to poor bowel absorption vs rapid transit - Needs high caloric supplementation; discussed with Bioinformatics Programmer for protein/amino acid rich supplementation - Paranteral nutrition is being strongly considered as a period of strong nutritional support will promote wound closure. R. Heel Ulcer - Full thickness tissue loss, Stage 2/3 - Likely pressure ulcer; Frequent repositioning - Wound care w/ skin dressing changes - Off loading boots SAMANTHA - Slowly Improving, Crea 1.4 - Likely pre-renal/ dehydration/sepsis/GI losses - C/W maintenance fluids Electrolyte derangements -Hypokalemia 4.2 today -Hypomagnesia 1.5, will replete as needed -Nephrology following UTI - Ucx Kameroni - ID Dr. Castillo on board - S/P 7 days of Merrem (03/26 - 04/02)- Repeat UCx pending - Evaluated by Urologist, Dr. Loaiza, no intervention needed -Repeat Ucx no growth final Afibb -Rate controlled -No home meds noted HTN -normotensive CHF -Systolic,Echo report from 12/2016, EF 35-405% -No home meds noted -Monitor fluid balance COPD -no home meds noted -monitor respiratory status, consider bronchodilators Mobility -PT Diet -Dysphagia, high protein -Supplement Discussed case with Dr. Anton <Lucio Anton - Last Filed: 04/07/18 17:36> Objective - Vital Signs/Intake and Output Vital Signs (last 24 hours): Temp Pulse Resp BP Pulse Ox 98.0 F 111 H 18 124/76 98 04/07/18 16:09 04/07/18 16:09 04/07/18 16:09 04/07/18 16:09 04/07/18 16:09 Intake and Output: 04/07/18 04/07/18 11:59 23:59 Intake Total 1830 Output Total 1250 Balance 580 - Medications Medications: Current Medications Acetaminophen (Tylenol 325mg Tab) 650 mg PO Q6 PRN PRN Reason: Pain scale 1-7 Fentanyl (Duragesic) 1 patch TD Q3D [facility]; Protocol Last Admin: 04/07/18 14:07 Dose: 1 patch Heparin Sodium (Porcine) (Heparin) 5,000 units SC Q8 [facility]; Protocol Last Admin: 04/06/18 08:50 Dose: 5,000 units Lactated Ringer's (Lactated Ringer's) 1,000 mls @ 150 mls/hr IV .Q6H40M [facility] Last Admin: 04/07/18 00:52 Dose: 150 mls/hr Lactulose (Enulose) 20 gm PO Q12 [facility] Last Admin: 04/07/18 08:45 Dose: 20 gm Magnesium Oxide (Mag-Ox) 400 mg PO BID [facility] Last Admin: 04/07/18 16:10 Dose: 400 mg Morphine Sulfate (Morphine) 2 mg IVP Q4 PRN PRN Reason: Pain, severe (8-10) Last Admin: 04/07/18 16:10 Dose: 2 mg Ondansetron HCl (Zofran Inj) 4 mg IVP Q4 PRN PRN Reason: Nausea/Vomiting Last Admin: 03/27/18 20:04 Dose: 4 mg Pantoprazole Sodium (Protonix Ec Tab) 40 mg PO DAILY [facility] Last Admin: 04/07/18 08:45 Dose: 40 mg - Labs Labs: 04/07/18 05:30 04/07/18 05:30 PT 13.8 Seconds (9.8-13.1) H 03/24/18 18:50 INR 1.2 03/24/18 18:50 APTT 26.4 Seconds (25.6-37.1) 03/24/18 18:50 Assessment and Plan - Assessment and Plan (Free Text) Assessment: Patient was personally seen and examined by me in rounds with residents. Available labs and diagnostic data reviewed. Case, Patient's condition and management plan discussed with residents in rounds. Agree with resident's progress note. Plan: As ordered.
[2018-04-06 06:58] LABS: HEMOGLOBIN 8.4 g/dL (12.0-18.0); MEAN CELL VOLUME 102.1 fl (80.0-94.0); MEAN CORPUSCULAR HEMOGLOBIN 34.6 pg (27.0-31.0); MEAN CORPUSCULAR HGB CONC 33.9 g/dL (33.0-37.0); RBC 2.44 Mil/uL (4.40-5.90); RED CELL DISTRIBUTION WIDTH 15.3 % (11.5-14.5); WHITE BLOOD COUNT 3.8 K/uL (4.8-10.8)
[2018-04-06 07:58] LABS: ALB/GLOB RATIO 0.5 (1.0-2.1); ALBUMIN 1.6 g/dL (3.5-5.0); ALT/SGPT 35 U/L (21-72); AST/SGOT 19 U/L (17-59); BLOOD UREA NITROGEN 16 mg/dl (9-20); CALCIUM 7.1 mg/dL (8.4-10.2); GFR NON-AFRICAN AMERICAN 54
[2018-04-06] MEDS: Pantoprazole 40 mg EC Tab PO SCH (08:50)
[2018-04-06] MEDS: Lactated Ringer's 1,000 ML IV SCH ×2 (10:44→18:03)
--- NOTE | 2018-04-06 10:44 | PN ---
DATE: 04/06/2018 SUBJECTIVE: Patient was seen and examined. Interim events noted. Consults noted and appreciated. Patient is now out of ICU in progressive care unit with telemetry monitoring in isolation room. Patient is sleeping, arousable. Feels okay. Denies any chest pain or shortness of breath. Arthritic pain is present, but controlled. No abdominal pain, nausea or vomiting. PHYSICAL EXAMINATION: GENERAL: The patient is in no acute distress. VITAL SIGNS: Stable. HEART: S1 and S2, normal and regular. LUNGS: Good bilateral air exchange. ABDOMEN: Patient has a draining fistula. Draining liquids. No sign of acute abdomen. No guarding. No rigidity. No rebound. Bowel sounds are present and normal. EXTREMITIES: No edema. No calf swelling. No tenderness. No acute ischemia. TILE SORTER: Exam is essentially unchanged. DIAGNOSTIC DATA: Available diagnostic data reviewed. Telemetry monitoring does not show significant arrhythmia. IMPRESSION AND PLAN: Overall the patient is medically stable. We might have to consider TPN to help ____. Plan as ordered. Case and plan discussed with the patient. Lucio Anton MD
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
[2018-04-06] MEDS: Magnesium Oxide 400 mg Tab UD PO SCH (16:14)
[2018-04-07] MEDS: Lactated Ringer's 1,000 ML IV SCH ×3 (00:48→20:16)
[2018-04-07 06:37] LABS: HEMOGLOBIN 8.9 g/dL (12.0-18.0); MEAN CELL VOLUME 101.4 fl (80.0-94.0); MEAN CORPUSCULAR HEMOGLOBIN 34.7 pg (27.0-31.0); MEAN CORPUSCULAR HGB CONC 34.3 g/dL (33.0-37.0); RBC 2.57 Mil/uL (4.40-5.90); RED CELL DISTRIBUTION WIDTH 15.4 % (11.5-14.5); WHITE BLOOD COUNT 3.8 K/uL (4.8-10.8)
[2018-04-07 06:52] LABS: ALB/GLOB RATIO 0.5 (1.0-2.1); ALBUMIN 1.8 g/dL (3.5-5.0); ALT/SGPT 29 U/L (21-72); AST/SGOT 21 U/L (17-59); BLOOD UREA NITROGEN 14 mg/dl (9-20); CALCIUM 7.3 mg/dL (8.4-10.2); GFR NON-AFRICAN AMERICAN 54
--- NOTE | 2018-04-07 07:58 | PN ---
DATE: 04/07/2018 SUBJECTIVE: The patient seen and examined. Interim events noted. Consults noted and appreciated. The patient remains in Progressive Care Unit on telemetry monitoring, sleeping, arousable, feels okay. Denied any specific complaint. Other than chronic pain, abdominal pain is adequately controlled. No specific issue reported by nursing staff. PHYSICAL EXAMINATION: GENERAL: The patient is in no acute distress. VITAL SIGNS: Stable. HEART: S1, S2, normal and regular. LUNGS: Good bilateral air exchange. ABDOMEN: Soft. No sign of acute abdomen. No guarding, no rigidity, no rebound. The patient has a chronic, very slowly healing fistula, draining liquid. Bowel sounds are plus and normal. EXTREMITIES: No edema. No calf swelling. No tenderness. No acute ischemia. CENTRAL NERVOUS SYSTEMS: Essentially unchanged. DIAGNOSTIC DATA: Available diagnostic data reviewed. Albumin level is 1.6. ASSESSMENT AND PLAN: Overall, the patient is hemodynamically stable. Long-term prognosis remains poor. Plan as ordered. Lucio Anton MD
[2018-04-07] MEDS: Magnesium Oxide 400 mg Tab UD PO SCH ×2 (08:45→16:10)
[2018-04-07] MEDS: Pantoprazole 40 mg EC Tab PO SCH (08:45)
[2018-04-08 05:44] LABS: HEMOGLOBIN 8.8 g/dL (12.0-18.0); MEAN CELL VOLUME 101.9 fl (80.0-94.0); MEAN CORPUSCULAR HEMOGLOBIN 34.3 pg (27.0-31.0); MEAN CORPUSCULAR HGB CONC 33.7 g/dL (33.0-37.0); RBC 2.57 Mil/uL (4.40-5.90); RED CELL DISTRIBUTION WIDTH 15.2 % (11.5-14.5); WHITE BLOOD COUNT 4.6 K/uL (4.8-10.8)
[2018-04-08 06:04] LABS: ALB/GLOB RATIO 0.5 (1.0-2.1); ALBUMIN 1.7 g/dL (3.5-5.0); ALT/SGPT 33 U/L (21-72); AST/SGOT 18 U/L (17-59); BLOOD UREA NITROGEN 13 mg/dl (9-20); CALCIUM 7.1 mg/dL (8.4-10.2); GFR NON-AFRICAN AMERICAN 54
[2018-04-08] MEDS: Pantoprazole 40 mg EC Tab PO SCH (09:05)
[2018-04-08] MEDS: Magnesium Oxide 400 mg Tab UD PO SCH ×2 (09:05→16:48)
[2018-04-08] MEDS: Lactated Ringer's 1,000 ML IV SCH ×2 (09:09→12:25)
[2018-04-08] MEDS ORDERED: Magnesium Sulfate 1 gm in D5W 1 GM/100 ML BAG IVPB ONE (10:16)
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
--- NOTE | 2018-04-08 11:02 | PN ---
DATE: 04/08/2018 SUBJECTIVE: The patient seen and examined. Interim events noted. The patient remains in Progressive Care Unit on telemetry monitoring, awake, responsive, feels okay. Pain is adequately controlled. No chest pain. No shortness of breath. PHYSICAL EXAMINATION: GENERAL: The patient is in no acute distress. VITAL SIGNS: Stable. HEART: S1, S2 normal and regular. LUNGS: Good bilateral air exchange. ABDOMEN: The patient still has draining fistula. No sign of acute abdomen. No guarding, no rigidity, no rebound. Bowel sounds are plus and normal. EXTREMITIES: No edema. No calf swelling. No tenderness. No acute ischemia. CENTRAL NERVOUS SYSTEM: Essentially unchanged. DIAGNOSTIC DATA: Available diagnostic data reviewed. ASSESSMENT AND PLAN: Overall, the patient's general medical condition is stable. has decreased. Telemetry monitoring does not reveal significant arrhythmias. Overall the patient is medically stable. Plan as ordered. Lucio Anton MD
[2018-04-08] MEDS: Morphine 4 MG/ML VIAL IVP PRN ×3 (14:34→22:57)
[2018-04-09] MEDS: Morphine 4 MG/ML VIAL IVP PRN (05:20)
[2018-04-09] MEDS: Lactated Ringer's 1,000 ML IV SCH (05:24)
[2018-04-09 05:36] LABS: HEMOGLOBIN 8.2 g/dL (12.0-18.0); MEAN CELL VOLUME 100.2 fl (80.0-94.0); MEAN CORPUSCULAR HEMOGLOBIN 34.4 pg (27.0-31.0); MEAN CORPUSCULAR HGB CONC 34.3 g/dL (33.0-37.0); RBC 2.38 Mil/uL (4.40-5.90); WHITE BLOOD COUNT 4.6 K/uL (4.8-10.8)
[2018-04-09 05:48] LABS: ALB/GLOB RATIO 0.4 (1.0-2.1); ALBUMIN 1.5 g/dL (3.5-5.0); ALT/SGPT 35 U/L (21-72); AST/SGOT 20 U/L (17-59); BLOOD UREA NITROGEN 14 mg/dl (9-20); CALCIUM 6.9 mg/dL (8.4-10.2); GFR NON-AFRICAN AMERICAN 60
--- NOTE | 2018-04-09 07:47 | CP.PCM.PN ---
Subjective - Date & Time of Evaluation Date of Evaluation: 04/09/18 Time of Evaluation: 08:00 - Subjective Subjective: Pt seen and evaluated at the bedside this am with Dr. Anton. Pt did not endorse any complaints. On exam, pt's left femoral catheter was noted to be bleeding with sheets drenched. Pressure was placed for 10minutes until bleeding stopped a nd triple lumen was removed. Picc line ordered. Objective - Vital Signs/Intake and Output Vital Signs (last 24 hours): Temp Pulse Resp BP Pulse Ox 99.0 F 82 18 118/70 99 04/09/18 01:39 04/09/18 01:39 04/09/18 01:39 04/09/18 01:39 04/09/18 01:39 Intake and Output: 04/09/18 04/09/18 06:59 18:59 Intake Total 450 Output Total 100 Balance 350 - Medications Medications: Current Medications Acetaminophen (Tylenol 325mg Tab) 650 mg PO Q6 PRN PRN Reason: Pain scale 1-7 Fentanyl (Duragesic) 1 patch TD Q3D [facility]; Protocol Last Admin: 04/07/18 14:07 Dose: 1 patch Heparin Sodium (Porcine) (Heparin) 5,000 units SC Q8 [facility]; Protocol Last Admin: 04/06/18 08:50 Dose: 5,000 units Lactated Ringer's (Lactated Ringer's) 1,000 mls @ 150 mls/hr IV .Q6H40M [facility] Last Admin: 04/09/18 05:24 Dose: 150 mls/hr Lactulose (Enulose) 20 gm PO Q12 [facility] Last Admin: 04/08/18 22:22 Dose: 20 gm Magnesium Oxide (Mag-Ox) 400 mg PO BID [facility] Last Admin: 04/08/18 16:48 Dose: 400 mg Morphine Sulfate (Morphine) 2 mg IVP Q4 PRN PRN Reason: Pain, severe (8-10) Last Admin: 04/09/18 05:20 Dose: 2 mg Ondansetron HCl (Zofran Inj) 4 mg IVP Q4 PRN PRN Reason: Nausea/Vomiting Last Admin: 03/27/18 20:04 Dose: 4 mg Pantoprazole Sodium (Protonix Ec Tab) 40 mg PO DAILY [facility] Last Admin: 04/08/18 09:05 Dose: 40 mg - Labs Labs: 04/09/18 04:40 04/09/18 04:40 PT 13.8 Seconds (9.8-13.1) H 03/24/18 18:50 INR 1.2 03/24/18 18:50 APTT 26.4 Seconds (25.6-37.1) 03/24/18 18:50 - Constitutional Appears: No Acute Distress, Chronically Ill - Head Exam Head Exam: NORMAL INSPECTION - Eye Exam Eye Exam: Normal appearance - ENT Exam ENT Exam: Mucous Membranes Moist - Respiratory Exam Respiratory Exam: Clear to Ausculation Bilateral. absent: Rales, Wheezes - Cardiovascular Exam Cardiovascular Exam: REGULAR RHYTHM, +S1, +S2 - GI/Abdominal Exam GI & Abdominal Exam: Soft. absent: Tenderness Additional comments: Abdominal ostomy bags in place, top bag filled with light brown puried fluid, partially filled. Towel covering abdomen soaked in yellow fluid. - Extremities Exam Extremities Exam: Pedal Edema (Bl pedal edema, pitting +1, up to knees, left LE slightly more swollen than right ) - Back Exam Additional comments: Left groin, picc line displaced and bleeding. Bleeding stopped after pressure. No swellings/ecchymosis, or discharge noted. 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 Heel. 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 Now High output flow with minimally digested food. Nutritional status worsening. Albumin 1.7 today - S/P perforated Jejunum in 06/2017 w/ surgical repair - Abdomen CT- no evidence of SBO - Ostomy bags in place; occasionnaly HIGH output >500cc/24 hr - Seen by surgery (03/28)- No Surgical Intervention. High protein diet. - Wound Care -Fleet enema ordered today to promote bowel movement Malnutrition, Low albumin, 1.7 - Likely due to poor bowel absorption vs rapid transit - Needs high caloric supplementation; discussed with Hardening Machine Operator for protein/amino acid rich supplementation/ Will consider Pro-stat supplement (liquid protein) - Paranteral nutrition is being strongly considered as a period of strong nutritional support will promote wound closure. Pancytopenia -Unknown Etiology, may be due to Vitamin B12/Folate deficiency, poor GI absorption vs Bone Marrow Pathology - F/u B12 and Folate -Will consider heme/onc consultation R. Heel Ulcer - Full thickness tissue loss, Stage 2/3 - Likely pressure ulcer; Frequent repositioning - Wound care w/ skin dressing changes - Off loading boots SAMANTHA - Resolved - Likely pre-renal/ dehydration/sepsis/GI losses - C/W maintenance fluids as pt has high GI loss Electrolyte derangements -Hypokalemia 3.7 today -Hypomagnesia 1.4, 1gm Mg SO4 given today. C/W Mg Oxide 400mg BID -Nephrology following UTI -Resovled - Ucx Morgani - ID Dr. Castillo on board - S/P 7 days of Merrem (03/26 - 04/02)- Repeat UCx pending - Evaluated by Urologist, Dr. Loaiza, no intervention needed -Repeat Ucx no growth final Afibb -Rate controlled -No home meds noted HTN -normotensive CHF -Systolic,Echo report from 12/2016, EF 35-405% -No home meds noted -Monitor fluid balance COPD -no home meds noted -monitor respiratory status, consider bronchodilators Mobility -PT: pt has been removing Diet -High calorie, High Protein Diet -Supplement with high protein drink DVT ppx -Heparin held due to thrombocytopenia Discussed case with Dr. Anton
[2018-04-09 08:05] VITALS: O2SAT 95
[2018-04-09] MEDS ORDERED: Magnesium Sulfate 1 gm in D5W 1 GM/100 ML BAG IVPB SCH (08:45)
[2018-04-09 09:48] VITALS: BP 99/59; PULSE 88; RESP 20; TEMP 97.7
[2018-04-09] MEDS: Pantoprazole 40 mg EC Tab PO SCH (11:07)
[2018-04-09] MEDS: Magnesium Oxide 400 mg Tab UD PO SCH (11:07)
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
[2018-04-09 11:52] LABS: HEMOGLOBIN 7.6 g/dL (12.0-18.0); MEAN CORPUSCULAR HEMOGLOBIN 33.9 pg (27.0-31.0); MEAN CORPUSCULAR HGB CONC 32.8 g/dL (33.0-37.0); RBC 2.24 Mil/uL (4.40-5.90); RED CELL DISTRIBUTION WIDTH 15.3 % (11.5-14.5); WHITE BLOOD COUNT 4.4 K/uL (4.8-10.8)
[2018-04-09 11:54] LABS: MEAN CELL VOLUME 103.3 fl (80.0-94.0)
--- NOTE | 2018-04-09 12:43 | CP.PCM.DIS ---
Provider - Provider Date of Admission: 03/24/18 20:45 Attending physician: Lucio Anton MD Consults: 03/24/18 20:11 Nephrology Consult Stat Comment: Consulting Provider: Brad Thompson Consulting Physician: Brad Thompson Reason for Consult: dehydration, acute renal failure 03/24/18 20:32 Neurology Consult Stat Comment: Consulting Provider: Carlos Alberto Jackson Consulting Physician: Carlos Alberto Jackson Reason for Consult: infarct 03/25/18 00:12 Infectious Disease Consult Routine Comment: Consulting Provider: Servando Castillo Consulting Physician: Servando Castillo Reason for Consult: ESBL E Coli in Urine with UTI 03/25/18 11:39 Wound Care [Nursing Referral for Wound Care] Routine Comment: Physician Instructions: Reason For Exam: leaking ostomy and ulcers. 03/26/18 08:00 Case Management Referral Routine Comment: [facility] patient Physician Instructions: Reason For Exam: admission Reason for Referral: Hospital Medicine Director Eval 03/28/18 07:33 Urology Consult Routine Comment: Consulting Provider: Valery Loaiza Consulting Physician: Valery Loaiza Reason for Consult: enterovesical fistula 03/28/18 07:35 Surgery [General Surgery Consult] Routine Comment: Consulting Provider: Mook Worthy Consulting Physician: Mook Worthy Reason for Consult: enterocutaneos fistula 04/03/18 13:32 Wound Care [Nursing Referral for Wound Care] Routine Comment: Physician Instructions: Reason For Exam: ostomy skin protection Time Spent in preparation of Discharge (in minutes): 35 Diagnosis - Discharge Diagnosis (1) Enterocutaneous fistula Status: Chronic (2) Dehydration Status: Resolved (3) SAMANTHA (acute kidney injury) Status: Resolved (4) Hyponatremia Status: Resolved (5) Altered mental state Status: Resolved Hospital Course - Lab Results Lab Results: Micro Results 04/03/18 15:10 Urine,Russell Urine Culture - Final No Growth (<1,000 CFU/ML) 03/25/18 16:32 Blood-Venous Blood Culture - Final NO GROWTH AFTER 5 DAYS 03/25/18 16:32 Blood-Venous Gram Stain - Final TEST NOT PERFORMED 03/25/18 16:27 Blood-Venous Blood Culture - Final NO GROWTH AFTER 5 DAYS 03/25/18 16:27 Blood-Venous Gram Stain - Final TEST NOT PERFORMED 03/24/18 19:33 Blood Blood Culture - Final NO GROWTH AFTER 5 DAYS 03/24/18 19:33 Blood Gram Stain - Final TEST NOT PERFORMED 03/24/18 18:50 Blood Blood Culture - Final NO GROWTH AFTER 5 DAYS 03/24/18 18:50 Blood Gram Stain - Final TEST NOT PERFORMED 03/25/18 17:21 Urine,Russell Urine Culture - Final Morg Morganii Ss Morganii 03/25/18 07:46 Naris MRSA Culture (Admit) - Final 03/24/18 18:25 Urine,Clean Catch Urine Culture - Final MULTIPLE SPECIES. SUGGEST REPEAT SPECIMEN. Most Recent Lab Values WBC 4.4 K/uL (4.8-10.8) L 04/09/18 11:43 RBC 2.24 Mil/uL (4.40-5.90) L 04/09/18 11:43 Hgb 7.6 g/dL (12.0-18.0) L 04/09/18 11:43 Hct 23.1 % (35.0-51.0) L 04/09/18 11:43 MCV 103.3 fl (80.0-94.0) H D 04/09/18 11:43 MCH 33.9 pg (27.0-31.0) H 04/09/18 11:43 MCHC 32.8 g/dL (33.0-37.0) L 04/09/18 11:43 RDW 15.3 % (11.5-14.5) H 04/09/18 11:43 Plt Count 62 K/uL (130-400) L 04/09/18 11:43 MPV 8.0 fl (7.2-11.7) 04/04/18 04:45 Neut % (Auto) 63.5 % (50.0-75.0) 04/04/18 04:45 Lymph % (Auto) 25.3 % (20.0-40.0) 04/04/18 04:45 [place] % (Auto) 6.0 % (0.0-10.0) 04/04/18 04:45 Eos % (Auto) 3.9 % (0.0-4.0) 04/04/18 04:45 Baso % (Auto) 1.3 % (0.0-2.0) 04/04/18 04:45 Neut # (Auto) 2.7 K/uL (1.8-7.0) 04/04/18 04:45 Lymph # (Auto) 1.1 K/uL (1.0-4.3) 04/04/18 04:45 [place] # (Auto) 0.3 K/uL (0.0-0.8) 04/04/18 04:45 Eos # (Auto) 0.2 K/uL (0.0-0.7) 04/04/18 04:45 Baso # (Auto) 0.1 K/uL (0.0-0.2) 04/04/18 04:45 PT 13.8 Seconds (9.8-13.1) H 03/24/18 18:50 INR 1.2 03/24/18 18:50 APTT 26.4 Seconds (25.6-37.1) 03/24/18 18:50 pO2 28 mm/Hg (30-55) L 03/24/18 19:11 VBG pH 7.17 (7.32-7.43) L* 03/24/18 19:11 VBG pCO2 40 mmHg (40-60) 03/24/18 19:11 VBG HCO3 12.9 mmol/L 03/24/18 19:11 VBG Total CO2 15.8 mmol/L (22-28) L 03/24/18 19:11 VBG O2 Sat (Calc) 44.9 % (40-65) 03/24/18 19:11 VBG Base Excess -13.3 mmol/L (0.0-2.0) L 03/24/18 19:11 VBG Potassium 7.6 mmol/L (3.6-5.2) H* 03/24/18 19:11 Sodium 120.0 mmol/L (132-148) L* 03/24/18 19:11 Chloride 92.0 mmol/L (98-107) L 03/24/18 19:11 Glucose 110 mg/dL (75-110) 03/24/18 19:11 Lactate 2.1 mmol/L (0.7-2.1) 03/24/18 19:11 FiO2 21.0 % 03/24/18 19:11 Crit Value Called To erik Puente md 03/24/18 19:11 Crit Value Called By Britton dumont 03/24/18 19:11 Crit Value Read Back Y 03/24/18 19:11 Blood Gas Notified Time 192003/24/18 19:11 Sodium 135 mmol/l (132-148) 04/09/18 04:40 Potassium 3.7 MMOL/L (3.6-5.0) 04/09/18 04:40 Chloride 107 mmol/L (98-107) 04/09/18 04:40 Carbon Dioxide 24 mmol/L (22-30) 04/09/18 04:40 Anion Gap 8 (10-20) L 04/09/18 04:40 BUN 14 mg/dl (9-20) 04/09/18 04:40 Creatinine 1.2 mg/dl (0.8-1.5) 04/09/18 04:40 Est GFR ( Amer) > 60 04/09/18 04:40 Est GFR (Non-Af Amer) 60 04/09/18 04:40 POC Glucose (mg/dL) 132 mg/dL (65-110) H 03/27/18 04:08 Random Glucose 89 mg/dL (75-110) 04/09/18 04:40 Serum Osmolality 317 mosm/kg (272-300) H 03/25/18 16:32 Calcium 6.9 mg/dL (8.4-10.2) L 04/09/18 04:40 Phosphorus 2.6 mg/dl (2.5-4.5) 04/09/18 04:40 Magnesium 1.4 MG/DL (1.6-2.3) L 04/09/18 04:40 Total Bilirubin 1.4 mg/dl (0.2-1.3) H 04/09/18 04:40 AST 20 U/L (17-59) 04/09/18 04:40 ALT 35 U/L (21-72) 04/09/18 04:40 Alkaline Phosphatase 80 U/L (38-126) 04/09/18 04:40 Ammonia 45 umo/L (16-60) D 03/27/18 10:03 Troponin I 0.0180 ng/mL (0.00-0.120) 03/24/18 18:50 Total Protein 5.0 G/DL (6.3-8.2) L 04/09/18 04:40 Albumin 1.5 g/dL (3.5-5.0) L 04/09/18 04:40 Globulin 3.5 gm/dL (2.2-3.9) 04/09/18 04:40 Albumin/Globulin Ratio 0.4 (1.0-2.1) L 04/09/18 04:40 Venous Blood Potassium 7.6 mmol/L (3.6-5.2) H* 03/24/18 19:11 Urine Color [place] (YELLOW) 03/24/18 18:25 Urine Clarity Cloudy (Clear) 03/24/18 18:25 Urine pH 7.0 (5.0-8.0) 03/24/18 18:25 Ur Specific [place] 1.015 (1.003-1.030) 03/24/18 18:25 Urine Protein 30 mg/dL (NEGATIVE) 03/24/18 18:25 Urine Glucose (UA) Neg mg/dL (Normal) 03/24/18 18:25 Urine Ketones Negative mg/dL (NEGATIVE) 03/24/18 18:25 Urine Blood Small (NEGATIVE) 03/24/18 18:25 Urine Nitrate Positive (NEGATIVE) H 03/24/18 18:25 Urine Bilirubin Small (NEGATIVE) 03/24/18 18:25 Urine Urobilinogen 4.0 mg/dL (0.2-1.0) 03/24/18 18:25 Ur Leukocyte Esterase Mod He/uL (Negative) 03/24/18 18:25 Urine RBC (Auto) 12 /hpf (0-3) H 03/24/18 18:25 Urine Microscopic WBC 6 /hpf (0-5) H 03/24/18 18:25 Calcium Oxalate Crystal Occ /hpf (<OCC) H 03/24/18 18:25 Urine Osmolality 353 mosm/kg (300-1000) 03/26/18 07:55 Heparin-induced Plt Ab Negative (Negative) 04/01/18 05:00 - Hospital Course Hospital Course: 73 y/o male with extensive hx of jejunal perforation s/p jejunostomy and urostomy (06/2017) complicated post operatively with enterocutaneous fistula, HTN, Afibb, CHF, COPD, DVT, Fx, Rheumatoid Arthritis, and Stomach Malignancy brought in from [facility] for altered mental status. Pt on presentation was severely dehydrated with electrolyte disturbances, SAMANTHA, Hyperammonia, and Septic. He was also noted to have an active pressure ulcer of R. Heel. He was managed for this active problems as follows: Abdominal Wound, Possible Enterocutaneous Fistula -Chronic, improved -Followed by surgery in house, no surgical intervention planned. Recommended high calorie and high protein diet. -Wound Care daily - Fleet enemas to promote bowel movement and reduce fistula outflow Sepsis -Resolved -Likely secondary to UTI UCx Morganni, s/p 7 days of Merrem -Recieved IV Vanco and Zosyn on admission. -Initally hypotensive on pressors, but was weakned off and now hemodynamically stable -Id consulted, Dr. Harris SAMANTHA - Resolved - Likely pre-renal/ dehydration/sepsis/GI losses - C/W maintenance fluids as pt has high GI loss - Was maintained on IV maintenance fluids Electrolyte derangements -Resolved -Hypokalemia 3.7 today -Hypomagnesia 1.4, 1gm Mg SO4 given today. C/W Mg Oxide 400mg BID -Follwoed by Nephrology Malnutrition, Low albumin, 1.7 - Likely due to poor bowel absorption vs rapid transit - Needs high caloric supplementation; discussed with Extractions Technologist for protein/amino acid rich supplementation/ Will consider Pro-stat supplement (liquid protein) - Paranteral nutrition is being strongly considered as a period of strong nutritional support will promote wound closure. R. Heel Ulcer - Full thickness tissue loss, Stage 2/3 - Likely pressure ulcer; Frequent repositioning - Wound care w/ skin dressing changes daily - Off loading boots Hyperammonia -Resolved -Treated with Lactulose daily On day of discharge, pt was evaluated by Dr. Anton and myself, and stable for discharge to LTAC facility. Discharge Exam - Head Exam Head Exam: NORMAL INSPECTION - Eye Exam Eye Exam: Normal appearance - ENT Exam ENT Exam: Mucous Membranes Moist - Respiratory Exam Respiratory Exam: Clear to PA & Lateral - Cardiovascular Exam Cardiovascular Exam: REGULAR RHYTHM - GI/Abdominal Exam GI & Abdominal Exam: Normal Bowel Sounds Additional comments: Abdominal ostomy bags in place, top bag filled with light brown puried fluid, partially filled. Skin mild pink but normal - Neurological Exam Neurological exam: Alert - Psychiatric Exam Psychiatric exam: Normal Affect - Skin Skin Exam: Normal Color Discharge Plan - Follow Up Plan Condition: GUARDED Disposition: [facility] Instructions: Sepsis in Adults, Dehydration, Adult (DC), Urinary Tract Infection, Adult (DC) Referrals: Lucio Anton MD [Staff Provider] -
== END 2018-04-09 12:11 | DRG 871 ==
LOC: H.ER 17:30 → H.ERHOLD 20:45 → H.ICU/CCU 03-25 → H.TEL 04-05 18:13
PROVIDERS: ADMIT Internal Medicine; ATTEND Internal Medicine
PROC: 06HY33Z Insertion of Infusion Device into Lower Vein, Percutaneous Approach (ICD-10-PCS; principal; 2018-03-25)
DX: A41.9 Sepsis, unspecified organism (principal); L89.613 Pressure ulcer of right heel, stage 3; R65.21 Severe sepsis with septic shock; G92 Toxic encephalopathy; K63.2 Fistula of intestine; N17.9 Acute kidney failure, unspecified; E87.2 Acidosis; E22.2 Syndrome of inappropriate secretion of antidiuretic hormone; N39.0 Urinary tract infection, site not specified; D61.818 Other pancytopenia; E46 Unspecified protein-calorie malnutrition; E72.20 Disorder of urea cycle metabolism, unspecified; I50.20 Unspecified systolic (congestive) heart failure; I11.0 Hypertensive heart disease with heart failure; Z16.12 Extended spectrum beta lactamase (ESBL) resistance; I48.91 Unspecified atrial fibrillation; E87.5 Hyperkalemia; E86.0 Dehydration; E87.6 Hypokalemia; D69.59 Other secondary thrombocytopenia; T45.515A Adverse effect of anticoagulants, initial encounter; B96.4 Proteus (mirabilis) (morganii) as the cause of diseases classified elsewhere; G89.29 Other chronic pain; I95.89 Other hypotension; R13.10 Dysphagia, unspecified; J44.9 Chronic obstructive pulmonary disease, unspecified; M06.9 Rheumatoid arthritis, unspecified; E83.42 Hypomagnesemia; Z93.3 Colostomy status; Z93.4 Other artificial openings of gastrointestinal tract status; Z93.6 Other artificial openings of urinary tract status; Z85.028 Personal history of other malignant neoplasm of stomach; Z87.01 Personal history of pneumonia (recurrent); Z87.440 Personal history of urinary (tract) infections; Z86.718 Personal history of other venous thrombosis and embolism; Z86.73 Personal history of transient ischemic attack (TIA), and cerebral infarction without residual deficits; Z86.19 Personal history of other infectious and parasitic diseases; Z87.891 Personal history of nicotine dependence; Z90.49 Acquired absence of other specified parts of digestive tract